=== PATIENT | female | born 1950 | race American Indian/Alaskan Native ===

== ENCOUNTER 2018-06-08 08:53 | Emergency (ER) | payer MEDICARE ==
--- NOTE | 2018-06-08 10:47 | Emergency Department Report ---
ED General Adult HPI - General Chief complaint: Extremity Problem,Nontraumatic Stated complaint: FOOT SWELLING/ABD PAIN Time Seen by Provider: 06/08/18 10:26 Source: patient, EMS Mode of arrival: Stretcher Limitations: No Limitations - History of Present Illness Initial comments: [facility] with a chief complaint of leg and feet swelling. Patient states that she had 4 doses of Lasix IM yesterday from [facility]. The patient is not therefore, with a history and when I initially enter the room she states that she wants to be. The patient is not very pleasant during the history and physical. But denies shortness of breath and chest pain. Patient says that she does not want us to do anything for her and wants to leav e -: Gradual Severity scale (0 -10): 0 Consistency: constant Improves with: none Worsens with: none Associated Symptoms: denies other symptoms Treatments Prior to Arrival: none - Related Data Home Medications Medication Instructions Recorded Confirmed Last Taken Apixaban [Eliquis] 5 mg PO DAILY 09/06/17 10/31/17 Unknown AtorvaSTATin [Lipitor] 20 mg PO DAILY 09/06/17 10/31/17 Unknown Loperamide HCl [Loperamide] 2 mg PO DAILY 09/06/17 10/31/17 Unknown Sertraline [Zoloft] 50 mg PO DAILY 09/06/17 10/31/17 10/17/17 10:00 Sucralfate [Carafate] 1 gm PO DAILY 09/06/17 10/31/17 Unknown Previous Rx's Medication Instructions Recorded Last Taken Type Carvedilol [Coreg] 12.5 mg PO BID #60 tablet 09/08/17 Unknown Rx Lisinopril [Zestril TAB] 5 mg PO QDAY #30 tablet 09/08/17 Unknown Rx Doxycycline [Vibramycin CAP] 100 mg PO Q12HR #10 capsule 11/02/17 Unknown Rx Furosemide [Lasix] 20 mg PO QDAY #30 tablet 11/02/17 Unknown Rx Allergies Allergy/AdvReac Type Severity Reaction Status Date / Time Penicillins Allergy Unknown Verified 09/04/17 14:11 aspirin AdvReac Nausea Verified 09/04/17 14:10 NSAIDS (Non-Steroidal AdvReac Nausea Verified 09/04/17 14:10 Anti-Inflamma Pork/Porcine Containing AdvReac Nausea Verified 11/01/17 09:04 Products ED Review of Systems ROS: Stated complaint: FOOT SWELLING/ABD PAIN Other details as noted in HPI Comment: All other systems reviewed and negative Constitutional: denies: chills, fever Eyes: denies: eye pain, eye discharge, vision change ENT: denies: ear pain, throat pain Respiratory: denies: cough, shortness of breath, wheezing Cardiovascular: denies: chest pain, palpitations Endocrine: no symptoms reported Gastrointestinal: denies: abdominal pain, nausea, diarrhea Genitourinary: denies: urgency, dysuria, discharge Musculoskeletal: denies: back pain, joint swelling, arthralgia Skin: denies: rash, lesions Neurological: denies: headache, weakness, paresthesias Psychiatric: denies: anxiety, depression Hematological/Lymphatic: denies: easy bleeding, easy bruising ED Past Medical Hx - Past Medical History Previous Medical History?: Yes Hx Hypertension: Yes Hx Congestive Heart Failure: Yes Hx Headaches / Migraines: Yes Additional medical history: A fib - Surgical History Past Surgical History?: Yes Additional Surgical History: Right breast lumpectomy - Social History Smoking Status: Former Smoker Substance Use Type: None - Medications Home Medications: Home Medications Medication Instructions Recorded Confirmed Last Taken Type Apixaban [Eliquis] 5 mg PO DAILY 09/06/17 10/31/17 Unknown History AtorvaSTATin [Lipitor] 20 mg PO DAILY 09/06/17 10/31/17 Unknown History Loperamide HCl [Loperamide] 2 mg PO DAILY 09/06/17 10/31/17 Unknown History Sertraline [Zoloft] 50 mg PO DAILY 09/06/17 10/31/17 10/17/17 10:00 History Sucralfate [Carafate] 1 gm PO DAILY 09/06/17 10/31/17 Unknown History Carvedilol [Coreg] 12.5 mg PO BID #60 tablet 09/08/17 10/31/17 Unknown Rx Lisinopril [Zestril TAB] 5 mg PO QDAY #30 tablet 09/08/17 10/31/17 Unknown Rx Doxycycline [Vibramycin CAP] 100 mg PO Q12HR #10 capsule 11/02/17 Unknown Rx Furosemide [Lasix] 20 mg PO QDAY #30 tablet 11/02/17 Unknown Rx ED Physical Exam - General Limitations: No Limitations General appearance: alert, in no apparent distress - Head Head exam: Present: atraumatic, normocephalic - Eye Eye exam: Present: normal appearance, PERRL, EOMI - ENT ENT exam: Present: mucous membranes moist - Neck Neck exam: Present: normal inspection - Respiratory Respiratory exam: Present: normal lung sounds bilaterally, rales. Absent: respiratory distress, wheezes - Cardiovascular Cardiovascular Exam: Present: regular rate, normal rhythm. Absent: systolic murmur, diastolic murmur, rubs, gallop - GI/Abdominal GI/Abdominal exam: Present: soft, normal bowel sounds. Absent: distended, tenderness - Extremities Exam Extremities exam: Present: normal inspection, other (bilateral 2+ pitting edema) - Back Exam Back exam: Present: normal inspection - Neurological Exam Neurological exam: Present: alert, oriented X3 - Psychiatric Psychiatric exam: Present: normal affect, normal mood - Skin Skin exam: Present: warm, dry, intact, normal color. Absent: rash ED Course Vital Signs 06/08/18 09:00 Temperature 97.4 F L Pulse Rate 129 H Respiratory 15 Rate Blood Pressure 110/71 O2 Sat by Pulse 100 Oximetry ED Medical Decision Making - Medical Decision Making Patient refused blow workup and chest x-ray stated she just wanted to go home. I discussed with patient CONCERNED that she might be in fluid overload from her congestive heart failure and needed IV Lasix patient stated she just had I am Lasix yesterday 4 and was to go home immediately. Patient stated she wanted to leave AGAINST MEDICAL ADVICE even after miss expressing my concerns was concerned grave illness and . Critical care attestation.: If time is entered above; I have spent that time in minutes in the direct care of this critically ill patient, excluding procedure time. ED Disposition Clinical Impression: Peripheral edema Disposition: DC-07 LEFT AGAINST MED ADVICE Is pt being admited?: No Does the pt Need Aspirin: No Condition: Stable Referrals: KEELY SRIVASTAVA MD [Primary Care Provider] - 3-5 Days
[2018-06-08 11:55] VITALS: BP 115/83
== END 2018-06-08 11:57 | disposition left against medical advice (07) ==
LOC: ED 08:53
DX: R60.9 Edema, unspecified (principal); I11.0 Hypertensive heart disease with heart failure; I50.9 Heart failure, unspecified; G43.909 Migraine, unspecified, not intractable, without status migrainosus; Z86.79 Personal history of other diseases of the circulatory system; Z87.891 Personal history of nicotine dependence; Z90.11 Acquired absence of right breast and nipple; Z88.0 Allergy status to penicillin; Z88.6 Allergy status to analgesic agent
CPT/HCPCS: 93005; 93010

== ENCOUNTER 2018-06-16 20:27 | Inpatient (IN) | payer MEDICARE ==
[2018-06-16] MEDS ORDERED: D50W (25GM) Syringe IV ONE ×2 (21:11→21:12)
--- NOTE | 2018-06-16 21:14 | Emergency Department Report ---
ED Altered Mental Status HPI - General Chief Complaint: Altered Mental Status Stated Complaint: MH Time Seen by Provider: 06/16/18 21:03 Source: EMS Mode of arrival: Stretcher Limitations: Altered Mental Status - History of Present Illness Initial Comments: 68-year-old female presents to the ED with altered mental status. Patient is cursing and screaming on the stretcher. Patient was picked up by EMS after her nephew called 911 and stated patient woke up and began tearing the house apart. She then went over to her neighbor's house and was climbing a fence. Nephew reports only known history is congestive heart failure. Patient is somewhat directable, reports a history of CHF. Patient keeps repeating "[id number]." Complaint: altered mental status -: This evening Severity: severe Consistency of Symptoms: constant Context: unknown - Related Data Home Medications Medication Instructions Recorded Confirmed Last Taken Apixaban [Eliquis] 5 mg PO DAILY 09/06/17 10/31/17 Unknown AtorvaSTATin [Lipitor] 20 mg PO DAILY 09/06/17 10/31/17 Unknown Loperamide HCl [Loperamide] 2 mg PO DAILY 09/06/17 10/31/17 Unknown Sertraline [Zoloft] 50 mg PO DAILY 09/06/17 10/31/17 10/17/17 10:00 Sucralfate [Carafate] 1 gm PO DAILY 09/06/17 10/31/17 Unknown Previous Rx's Medication Instructions Recorded Last Taken Type Carvedilol [Coreg] 12.5 mg PO BID #60 tablet 09/08/17 Unknown Rx Lisinopril [Zestril TAB] 5 mg PO QDAY #30 tablet 09/08/17 Unknown Rx Doxycycline [Vibramycin CAP] 100 mg PO Q12HR #10 capsule 11/02/17 Unknown Rx Furosemide [Lasix] 20 mg PO QDAY #30 tablet 11/02/17 Unknown Rx Allergies Allergy/AdvReac Type Severity Reaction Status Date / Time Penicillins Allergy Unknown Verified 09/04/17 14:11 aspirin AdvReac Nausea Verified 09/04/17 14:10 NSAIDS (Non-Steroidal AdvReac Nausea Verified 09/04/17 14:10 Anti-Inflamma Pork/Porcine Containing AdvReac Nausea Verified 11/01/17 09:04 Products ED Review of Systems ROS: Stated complaint: MH Other details as noted in HPI Comment: Unobtainable due to pts medical conditions (altered mental status) ED Past Medical Hx - Past Medical History Hx Hypertension: Yes Hx Congestive Heart Failure: Yes Hx Headaches / Migraines: Yes Additional medical history: A fib - Surgical History Additional Surgical History: Right breast lumpectomy - Social History Smoking Status: Former Smoker Substance Use Type: None - Medications Home Medications: Home Medications Medication Instructions Recorded Confirmed Last Taken Type Apixaban [Eliquis] 5 mg PO DAILY 09/06/17 10/31/17 Unknown History AtorvaSTATin [Lipitor] 20 mg PO DAILY 09/06/17 10/31/17 Unknown History Loperamide HCl [Loperamide] 2 mg PO DAILY 09/06/17 10/31/17 Unknown History Sertraline [Zoloft] 50 mg PO DAILY 09/06/17 10/31/17 10/17/17 10:00 History Sucralfate [Carafate] 1 gm PO DAILY 09/06/17 10/31/17 Unknown History Carvedilol [Coreg] 12.5 mg PO BID #60 tablet 09/08/17 10/31/17 Unknown Rx Lisinopril [Zestril TAB] 5 mg PO QDAY #30 tablet 09/08/17 10/31/17 Unknown Rx Doxycycline [Vibramycin CAP] 100 mg PO Q12HR #10 capsule 11/02/17 Unknown Rx Furosemide [Lasix] 20 mg PO QDAY #30 tablet 11/02/17 Unknown Rx ED Physical Exam - General Limitations: Altered Mental Status General appearance: alert, in no apparent distress - Head Head exam: Present: atraumatic, normocephalic - Eye Eye exam: Present: normal appearance - ENT ENT exam: Present: mucous membranes moist - Neck Neck exam: Present: normal inspection - Respiratory Respiratory exam: Present: normal lung sounds bilaterally. Absent: respiratory distress - Cardiovascular Cardiovascular Exam: Present: regular rate, normal rhythm - GI/Abdominal GI/Abdominal exam: Present: soft. Absent: distended - Extremities Exam Extremities exam: Present: pedal edema - Neurological Exam Neurological exam: Present: alert, altered, other (moving all extremities) - Psychiatric Psychiatric exam: Present: agitated (yelling, cursing) - Skin Skin exam: Present: warm, dry, intact, normal color. Absent: rash - Assessment Assessment Interval: Baseline - Level of Consciousness 1a. Level of Consciousness: alert/keenly responsive - LOC Questions 1b. LOC Questions: answers 1 question correctly - LOC Command 1c. LOC Commands: performs tasks correctly - Best Gaze 2. Best Gaze: normal - Visual 3. Visual: no visual loss - Facial Palsy 4. Facial Palsy: normal symmetrical movement - Motor Arm 5a. Motor Arm Left: no drift 5b. Motor Arm Right: no drift - Motor Leg 6a. Motor Leg Left: no drift 6b. Motor Leg Right: no drift - Limb Ataxia 7. Limb Ataxia: absent - Sensory 8. Sensory: normal - Best Language 9. Best Language: no aphasia - Dysarthria 10. Dysarthria: normal - Extinction and Inattention 11. Extinction/Inattention: no abnormality - Scoring Total Score: 1 Stroke Severity: Minor Stroke ED Course Vital Signs 06/16/18 06/16/18 06/16/18 20:44 21:02 21:30 Pulse Rate 60 135 H Respiratory 19 29 H Rate Blood Pressure 126/76 134/84 Blood Pressure 137/81 [Left] O2 Sat by Pulse 96 Oximetry 06/16/18 06/16/18 06/16/18 22:00 22:30 23:00 Pulse Rate 127 H 118 H 119 H Respiratory 25 H 26 H 22 Rate Blood Pressure 142/92 130/82 124/79 Blood Pressure [Left] O2 Sat by Pulse 96 Oximetry 06/16/18 06/16/18 06/17/18 23:30 23:44 01:45 Pulse Rate 118 H 157 H Respiratory 17 Rate Blood Pressure 89/61 89/61 Blood Pressure [Left] O2 Sat by Pulse 98 Oximetry 06/17/18 06/17/18 06/17/18 02:00 02:27 03:01 Pulse Rate 116 H 123 H Respiratory 22 Rate Blood Pressure 130/73 140/81 Blood Pressure 146/78 [Left] O2 Sat by Pulse 98 Oximetry - Reevaluation(s) Reevaluation #1: 06/16/18 21:11 Accucheck 26. Will administer D50. Reevaluation #2: 06/16/18 22:03 Nephew currently at bedside. States he received a call yesterday that patient was parked in her car in the [facility] parking lot. States patient was agitated and screaming at that time. States he took her to his home, fed her, and talked to her. Patient did calm down and was able to get some sleep. Patient awoke today, again agitated. States he and his have been attempting to calm her down all day, were unable to, so eventually called 911. - Consultations Consultation #1: 06/17/18 02:55 Spoke w/ radiologist that read pt's CT Head regarding foci of air. States he has seen this before with peripheral IV placement if small amount of air gets injected during placement. Pt does have a peripheral IV line. - Lab Data Result diagrams: 06/16/18 21:43 06/16/18 21:43 Lab Results 06/16/18 06/16/18 06/16/18 Range/Units 21:05 21:43 21:43 WBC (4.5-11.0) K/mm3 RBC (3.65-5.03) M/mm3 Hgb (10.1-14.3) gm/dl Hct (30.3-42.9) % MCV (79-97) fl MCH (28-32) pg MCHC (30-34) % RDW (13.2-15.2) % Plt Count (140-440) K/mm3 Lymph % (Auto) (13.4-35.0) % [place] % (Auto) (0.0-7.3) % Eos % (Auto) (0.0-4.3) % Baso % (Auto) (0.0-1.8) % Lymph # (1.2-5.4) K/mm3 [place] # (0.0-0.8) K/mm3 Eos # (0.0-0.4) K/mm3 Baso # (0.0-0.1) K/mm3 Seg Neutrophils % (40.0-70.0) % Seg Neutrophils # (1.8-7.7) K/mm3 Sodium (137-145) mmol/L Potassium (3.6-5.0) mmol/L Chloride (98-107) mmol/L Carbon Dioxide (22-30) mmol/L Anion Gap mmol/L BUN (7-17) mg/dL Creatinine (0.7-1.2) mg/dL Estimated GFR ml/min BUN/Creatinine Ratio % Glucose (65-100) mg/dL POC Glucose < 40 L (70-105) Lactic Acid (0.7-2.0) mmol/L Calcium (8.4-10.2) mg/dL Troponin T (0.00-0.029) ng/mL TSH (0.270-4.200) mlU/mL Free T4 (0.76-1.46) ng/dL Urine Color (Yellow) Urine Turbidity (Clear) Urine pH (5.0-7.0) Ur Specific [place] (1.003-1.030) Urine Protein (Negative) mg/dL Urine Glucose (UA) (Negative) mg/dL Urine Ketones (Negative) mg/dL Urine Blood (Negative) Urine Nitrite (Negative) Urine Bilirubin (Negative) Urine Urobilinogen (<2.0) mg/dL Ur Leukocyte Esterase (Negative) Urine WBC (Auto) (0.0-6.0) /HPF Urine RBC (Auto) (0.0-6.0) /HPF U Epithel Cells (Auto) (0-13.0) /HPF Hyaline Casts /LPF Urine Mucus /HPF Salicylates 5.5 (2.8-20.0) mg/dL Urine Opiates Screen Urine Methadone Screen Acetaminophen < 5.0 L (10.0-30.0) ug/mL Ur Barbiturates Screen Ur Phencyclidine Scrn Ur Amphetamines Screen U Benzodiazepines Scrn Urine Cocaine Screen U Marijuana (THC) Screen Drugs of Abuse Note Plasma/Serum Alcohol (0-0.07) % 06/16/18 06/16/18 06/16/18 Range/Units 21:43 21:43 21:43 WBC 8.7 (4.5-11.0) K/mm3 RBC 5.70 H (3.65-5.03) M/mm3 Hgb 14.2 (10.1-14.3) gm/dl Hct 44.6 H (30.3-42.9) % MCV 78 L (79-97) fl MCH 25 L (28-32) pg MCHC 32 (30-34) % RDW 18.7 H (13.2-15.2) % Plt Count 273 (140-440) K/mm3 Lymph % (Auto) 13.8 (13.4-35.0) % [place] % (Auto) 7.3 (0.0-7.3) % Eos % (Auto) 0.1 (0.0-4.3) % Baso % (Auto) 0.0 (0.0-1.8) % Lymph # 1.2 (1.2-5.4) K/mm3 [place] # 0.6 (0.0-0.8) K/mm3 Eos # 0.0 (0.0-0.4) K/mm3 Baso # 0.0 (0.0-0.1) K/mm3 Seg Neutrophils % 78.8 H (40.0-70.0) % Seg Neutrophils # 6.8 (1.8-7.7) K/mm3 Sodium 129 L (137-145) mmol/L Potassium 4.6 (3.6-5.0) mmol/L Chloride 95.3 L (98-107) mmol/L Carbon Dioxide 14 L (22-30) mmol/L Anion Gap 24 mmol/L BUN 23 H (7-17) mg/dL Creatinine 1.1 (0.7-1.2) mg/dL Estimated GFR 60 ml/min BUN/Creatinine Ratio 21 % Glucose 146 H (65-100) mg/dL POC Glucose (70-105) Lactic Acid (0.7-2.0) mmol/L Calcium 8.9 (8.4-10.2) mg/dL Troponin T (0.00-0.029) ng/mL TSH (0.270-4.200) mlU/mL Free T4 (0.76-1.46) ng/dL Urine Color (Yellow) Urine Turbidity (Clear) Urine pH (5.0-7.0) Ur Specific [place] (1.003-1.030) Urine Protein (Negative) mg/dL Urine Glucose (UA) (Negative) mg/dL Urine Ketones (Negative) mg/dL Urine Blood (Negative) Urine Nitrite (Negative) Urine Bilirubin (Negative) Urine Urobilinogen (<2.0) mg/dL Ur Leukocyte Esterase (Negative) Urine WBC (Auto) (0.0-6.0) /HPF Urine RBC (Auto) (0.0-6.0) /HPF U Epithel Cells (Auto) (0-13.0) /HPF Hyaline Casts /LPF Urine Mucus /HPF Salicylates (2.8-20.0) mg/dL Urine Opiates Screen Urine Methadone Screen Acetaminophen (10.0-30.0) ug/mL Ur Barbiturates Screen Ur Phencyclidine Scrn Ur Amphetamines Screen U Benzodiazepines Scrn Urine Cocaine Screen U Marijuana (THC) Screen Drugs of Abuse Note Plasma/Serum Alcohol < 0.01 (0-0.07) % 06/16/18 06/16/18 06/16/18 Range/Units 21:43 22:25 22:27 WBC (4.5-11.0) K/mm3 RBC (3.65-5.03) M/mm3 Hgb (10.1-14.3) gm/dl Hct (30.3-42.9) % MCV (79-97) fl MCH (28-32) pg MCHC (30-34) % RDW (13.2-15.2) % Plt Count (140-440) K/mm3 Lymph % (Auto) (13.4-35.0) % [place] % (Auto) (0.0-7.3) % Eos % (Auto) (0.0-4.3) % Baso % (Auto) (0.0-1.8) % Lymph # (1.2-5.4) K/mm3 [place] # (0.0-0.8) K/mm3 Eos # (0.0-0.4) K/mm3 Baso # (0.0-0.1) K/mm3 Seg Neutrophils % (40.0-70.0) % Seg Neutrophils # (1.8-7.7) K/mm3 Sodium (137-145) mmol/L Potassium (3.6-5.0) mmol/L Chloride (98-107) mmol/L Carbon Dioxide (22-30) mmol/L Anion Gap mmol/L BUN (7-17) mg/dL Creatinine (0.7-1.2) mg/dL Estimated GFR ml/min BUN/Creatinine Ratio % Glucose (65-100) mg/dL POC Glucose 121 H (70-105) Lactic Acid (0.7-2.0) mmol/L Calcium (8.4-10.2) mg/dL Troponin T < 0.010 (0.00-0.029) ng/mL TSH 1.560 (0.270-4.200) mlU/mL Free T4 1.87 H (0.76-1.46) ng/dL Urine Color (Yellow) Urine Turbidity (Clear) Urine pH (5.0-7.0) Ur Specific [place] (1.003-1.030) Urine Protein (Negative) mg/dL Urine Glucose (UA) (Negative) mg/dL Urine Ketones (Negative) mg/dL Urine Blood (Negative) Urine Nitrite (Negative) Urine Bilirubin (Negative) Urine Urobilinogen (<2.0) mg/dL Ur Leukocyte Esterase (Negative) Urine WBC (Auto) (0.0-6.0) /HPF Urine RBC (Auto) (0.0-6.0) /HPF U Epithel Cells (Auto) (0-13.0) /HPF Hyaline Casts /LPF Urine Mucus /HPF Salicylates (2.8-20.0) mg/dL Urine Opiates Screen Urine Methadone Screen Acetaminophen (10.0-30.0) ug/mL Ur Barbiturates Screen Ur Phencyclidine Scrn Ur Amphetamines Screen U Benzodiazepines Scrn Urine Cocaine Screen U Marijuana (THC) Screen Drugs of Abuse Note Plasma/Serum Alcohol (0-0.07) % 06/16/18 06/16/18 06/16/18 Range/Units 22:33 23:43 Unknown WBC (4.5-11.0) K/mm3 RBC (3.65-5.03) M/mm3 Hgb (10.1-14.3) gm/dl Hct (30.3-42.9) % MCV (79-97) fl MCH (28-32) pg MCHC (30-34) % RDW (13.2-15.2) % Plt Count (140-440) K/mm3 Lymph % (Auto) (13.4-35.0) % [place] % (Auto) (0.0-7.3) % Eos % (Auto) (0.0-4.3) % Baso % (Auto) (0.0-1.8) % Lymph # (1.2-5.4) K/mm3 [place] # (0.0-0.8) K/mm3 Eos # (0.0-0.4) K/mm3 Baso # (0.0-0.1) K/mm3 Seg Neutrophils % (40.0-70.0) % Seg Neutrophils # (1.8-7.7) K/mm3 Sodium (137-145) mmol/L Potassium (3.6-5.0) mmol/L Chloride (98-107) mmol/L Carbon Dioxide (22-30) mmol/L Anion Gap mmol/L BUN (7-17) mg/dL Creatinine (0.7-1.2) mg/dL Estimated GFR ml/min BUN/Creatinine Ratio % Glucose (65-100) mg/dL POC Glucose (70-105) Lactic Acid 4.40 H* 4.30 H* (0.7-2.0) mmol/L Calcium (8.4-10.2) mg/dL Troponin T (0.00-0.029) ng/mL TSH (0.270-4.200) mlU/mL Free T4 (0.76-1.46) ng/dL Urine Color [place] (Yellow) Urine Turbidity Clear (Clear) Urine pH 5.0 (5.0-7.0) Ur Specific [place] 1.025 (1.003-1.030) Urine Protein 100 mg/dl (Negative) mg/dL Urine Glucose (UA) 50 (Negative) mg/dL Urine Ketones Neg (Negative) mg/dL Urine Blood Neg (Negative) Urine Nitrite Neg (Negative) Urine Bilirubin Neg (Negative) Urine Urobilinogen 4.0 (<2.0) mg/dL Ur Leukocyte Esterase Neg (Negative) Urine WBC (Auto) 4.0 (0.0-6.0) /HPF Urine RBC (Auto) 5.0 (0.0-6.0) /HPF U Epithel Cells (Auto) 7.0 (0-13.0) /HPF Hyaline Casts 49 /LPF Urine Mucus Few /HPF Salicylates (2.8-20.0) mg/dL Urine Opiates Screen Urine Methadone Screen Acetaminophen (10.0-30.0) ug/mL Ur Barbiturates Screen Ur Phencyclidine Scrn Ur Amphetamines Screen U Benzodiazepines Scrn Urine Cocaine Screen U Marijuana (THC) Screen Drugs of Abuse Note Plasma/Serum Alcohol (0-0.07) % 06/16/18 Range/Units Unknown WBC (4.5-11.0) K/mm3 RBC (3.65-5.03) M/mm3 Hgb (10.1-14.3) gm/dl Hct (30.3-42.9) % MCV (79-97) fl MCH (28-32) pg MCHC (30-34) % RDW (13.2-15.2) % Plt Count (140-440) K/mm3 Lymph % (Auto) (13.4-35.0) % [place] % (Auto) (0.0-7.3) % Eos % (Auto) (0.0-4.3) % Baso % (Auto) (0.0-1.8) % Lymph # (1.2-5.4) K/mm3 [place] # (0.0-0.8) K/mm3 Eos # (0.0-0.4) K/mm3 Baso # (0.0-0.1) K/mm3 Seg Neutrophils % (40.0-70.0) % Seg Neutrophils # (1.8-7.7) K/mm3 Sodium (137-145) mmol/L Potassium (3.6-5.0) mmol/L Chloride (98-107) mmol/L Carbon Dioxide (22-30) mmol/L Anion Gap mmol/L BUN (7-17) mg/dL Creatinine (0.7-1.2) mg/dL Estimated GFR ml/min BUN/Creatinine Ratio % Glucose (65-100) mg/dL POC Glucose (70-105) Lactic Acid (0.7-2.0) mmol/L Calcium (8.4-10.2) mg/dL Troponin T (0.00-0.029) ng/mL TSH (0.270-4.200) mlU/mL Free T4 (0.76-1.46) ng/dL Urine Color (Yellow) Urine Turbidity (Clear) Urine pH (5.0-7.0) Ur Specific [place] (1.003-1.030) Urine Protein (Negative) mg/dL Urine Glucose (UA) (Negative) mg/dL Urine Ketones (Negative) mg/dL Urine Blood (Negative) Urine Nitrite (Negative) Urine Bilirubin (Negative) Urine Urobilinogen (<2.0) mg/dL Ur Leukocyte Esterase (Negative) Urine WBC (Auto) (0.0-6.0) /HPF Urine RBC (Auto) (0.0-6.0) /HPF U Epithel Cells (Auto) (0-13.0) /HPF Hyaline Casts /LPF Urine Mucus /HPF Salicylates (2.8-20.0) mg/dL Urine Opiates Screen Presumptive negative Urine Methadone Screen Presumptive negative Acetaminophen (10.0-30.0) ug/mL Ur Barbiturates Screen Presumptive negative Ur Phencyclidine Scrn Presumptive negative Ur Amphetamines Screen Presumptive negative U Benzodiazepines Scrn Presumptive negative Urine Cocaine Screen Presumptive negative U Marijuana (THC) Screen Presumptive negative Drugs of Abuse Note Disclamer Plasma/Serum Alcohol (0-0.07) % - EKG Data -: EKG Interpreted by Me EKG shows normal: sinus rhythm, axis, intervals, QRS complexes, ST-T waves Rate: tachycardia (rate 118) Interpretation: no acute changes - Radiology Data Radiology results: report reviewed, image reviewed - Medical Decision Making This is a 68-year-old female with altered mental status 2 days according to her nephew. Only known medical history by him as CHF. Chart review reveals history of atrial fibrillation, hypertension as well. No known psychiatric h istory. Patient has been agitated, yelling and cursing at family and staff. Upon initial presentation, Accu-Chek was done and patient was found to be hypoglycemic, with glucose of 26. D50 was given and patient subsequently had a normal glucose when it was rechecked. However, patient's behavior did not change following D50 administration. Patient continued to be agitated, cursing. Patient does have a lucid moment we are able to calm her down, she will answer questions appropriately. However she did require multiple doses of sedating medications to obtain workup. Patient was initially given Haldol, then Geodon, then Ativan and Benadryl. Patient is finally resting. CT head unremarkable except for findings of foci of air, which according to radiologist, could be due to small amount of air entering the bloodstream on peripheral IV placement. Chest x-ray did show possible pneumonia, so blood cultures were obtained and Levaquin was given. The patient has never been in any respiratory distress, O2 sats have been normal. Patient has been afebrile, blood pressure normal. Patient was initially tachycardic, EKG did show sinus tachycardia with patient has history of atrial fibrillation, and has had paroxysmal episodes of A. fib with RVR with heart rate increasing to the 130s while asleep. Patient was given metoprolol 5 mg for this. Her rate improved to the 110s. EKG did not show any ST changes, and troponin was normal. Thyroid panel essentially normal. UA is negative for infection. Toxicology screen negative. EtOH negative. Patient did have lactic acidosis of 4, could possibly be related to her pneumonia, could also possibly be elevated since her agitation. Patient given gentle bolus of IV fluids, 1 L, due to history of CHF. Patient did not require any more boluses as her blood pressure has been normal renal function is normal as well. Will admit the patient to hospitalist, Dr Estrada, for further management of her care. - Differential Diagnosis infection, psychosis, thyroid storm, hypoglycemia Critical Care Time: Yes Critical care time in (mins) excluding proc time.: 70 Critical care attestation.: If time is entered above; I have spent that time in minutes in the direct care of this critically ill patient, excluding procedure time. Critical Care Time: 70 minutes ED Disposition Clinical Impression: Psychosis, Altered mental status, Pneumonia, Paroxysmal atrial fibrillation, L actic acidosis, Hypoglycemia Disposition: -09 OP ADMIT IP TO THIS HOSP Is pt being admited?: Yes Condition: Stable Time of Disposition: 02:58
[2018-06-16] MEDS ORDERED: HALDOL IM ONE (22:02)
[2018-06-16 22:04] LABS: Eosinophils % (Auto) 0.1 % (0.0-4.3); Hematocrit 44.6 % (30.3-42.9); Hemoglobin 14.2 gm/dl (10.1-14.3); Lymphocytes # (Auto) 1.2 K/mm3 (1.2-5.4); Lymphocytes % (Auto) 13.8 % (13.4-35.0); Mean Corpuscular HGB Conc 32 % (30-34); Mean Corpuscular Volume 78 fl (79-97); Monocytes # (Auto) 0.6 K/mm3 (0.0-0.8); Monocytes % (Auto) 7.3 % (0.0-7.3); Red Cell Distribution Width 18.7 % (13.2-15.2)
[2018-06-16 22:10] LABS: Platelet Count 273 K/mm3 (140-440)
[2018-06-16 22:18] LABS: Calcium 8.9 mg/dL (8.4-10.2)
--- NOTE | 2018-06-16 22:54 | XRay Report ---
PROCEDURE: CHEST 1 VIEW TECHNIQUE: Chest radiograph posteroanterior projection. CPT 76123 HISTORY: Altered mental status COMPARISONS: None . FINDINGS: There is mild to moderate degree cardiomegaly. An inhomogeneous densities noted in the left midlung. Right lung and bilateral pleural spaces are clear. IMPRESSION: An inhomogeneous density left midlung suspicious for pneumonia. A two-view chest study is recommended. This document is electronically signed by Flavio Feng MD., June 16 2018 10:51:47 PM ET
[2018-06-16] MEDS ORDERED: LEVAQUIN 750MG/150ML 750 MG/150 ML BAG IV ONE (23:15)
[2018-06-16 23:21] LABS: Free T4 (Free Thyroxine) 1.87 ng/dL (0.76-1.46)
[2018-06-16] MEDS ORDERED: NACL 0.9% 1000 ML 1,000 ML IV ONE (23:37)
[2018-06-17] MEDS ORDERED: GEODON IM ONE ×2 (00:02→00:13)
[2018-06-17] MEDS ORDERED: BENADRYL IV ONE (01:05)
[2018-06-17] MEDS ORDERED: ATIVAN IV ONE (01:05)
[2018-06-17 01:07] LABS: Amphetamine Screen,Urine PRESUMPTIVE NEGATIVE; Benzodiazepines Screen,Urine PRESUMPTIVE NEGATIVE; Cannabinoid Screen,Urine PRESUMPTIVE NEGATIVE; Cocaine Screen,Urine PRESUMPTIVE NEGATIVE; Methadone Screen,Urine PRESUMPTIVE NEGATIVE; Opiate Screen,Urine PRESUMPTIVE NEGATIVE
[2018-06-17 01:13] LABS: Bilirubin,Urine NEG (Negative); Blood,Urine NEG (Negative); Color,Urine Amber (Yellow); Hyaline Casts,Urine 49 /LPF; Mucus,Urine FEW /HPF
--- NOTE | 2018-06-17 02:20 | Cat Scan Report ---
PROCEDURE: CT HEAD/BRAIN WO CON TECHNIQUE: Routine axial imaging was obtained of the brain without IV contrast. HISTORY: ams COMPARISONS: There are no previous studies available for comparison. FINDINGS: There is mild atrophy. There is no evidence of acute stroke or hemorrhage. The ventricular system is appropriate in size and is symmetric. The visualized sinuses are clear. The mastoid air cells are wel l pneumatized. The calvarium appears intact. The soft tissues reveal small foci of air within the anterior aspects of both cheeks bilaterally. Add itional small foci of air are seen within the soft tissues behind the right maxillary sinus and in th e right cavernous sinus. There is no evidence of air along the skull base. IMPRESSION: Mild atrophy. No evidence of acute stroke or hemorrhage. Small foci of air in the ventral cheek soft tissues, behind the right maxillary sinus and within the right cavernous sinus. Clinical history is needed whether there is been a recent intravenous catheter placement and/or injection of some type. No evidence of air along the skull base to suggest it could be coming from the thorax.. This document is electronically signed by J Luis Weeks MD., June 17 2018 02:19:19 AM ET
[2018-06-17] MEDS ORDERED: LOPRESSOR IV ONE ×2 (02:59→03:00)
[2018-06-17] MEDS ORDERED: ZOFRAN IV PRN (03:24)
--- NOTE | 2018-06-17 05:07 | History and Physical Report ---
CHIEF COMPLAINT: Altered mental status. HISTORY OF PRESENT ILLNESS: The patient is a 68-year-old female, who was brought in because of altered mental status. The patient was noted by the family to develop sudden onset of change in mental status with the patient being combative, climbing the fence, and running wild at home. There was no history of chest pain. No history of shortness of breath, fever, nausea or vomiting and the patient was noted to be voicing 12/14 Spongebob along the line and EMS was called and the patient was brought in. PAST MEDICAL HISTORY: Pertinent for hypertension, congestive heart failure, migraine headaches, atrial fibrillation. PAST SURGICAL HISTORY: Pertinent for right breast lumpectomy. FAMILY HISTORY: Noncontributory. SOCIAL HISTORY: The patient is a former cigarette smoker, but does not smoke currently, does not drink alcohol and does not use illicit drugs. MEDICATIONS: The patient is on apixaban 5 mg by mouth daily, Lipitor 20 mg by mouth daily, loperamide 2 mg by mouth daily, Zoloft 50 mg by mouth daily, sucralfate 1 gram by mouth daily, Coreg 12.5 mg by mouth twice daily, lisinopril 5 mg by mouth daily, doxycycline, Vibramycin 100 mg by mouth every 12 hours and Lasix 20 mg by mouth daily. ALLERGIES: THE PATIENT IS ALLERGIC TO PENICILLIN, ASPIRIN, NON-STEROIDAL ANTI-INFLAMMATORY AGENTS. REVIEW OF SYSTEMS: CONSTITUTIONAL: There is no fever, no chills, no diaphoresis. HEENT: There is no headache or sore throat. CARDIOVASCULAR SYSTEM: There is no chest pain or orthopnea. RESPIRATORY SYSTEM: There is no shortness of breath or cough. GASTROINTESTINAL SYSTEM: There is no nausea, no vomiting, no abdominal pain, diarrhea or constipation. NEUROLOGICAL SYSTEM: Altered mental status noted. No dizziness, no numbness. MUSCULOSKELETAL SYSTEM: There is no joint pain or swelling. DERMATOLOGICAL SYSTEM: There is no skin rash or itching. GENITOURINARY SYSTEM: There is no dysuria, hematuria or flank pain. Rest of system review is normal. PHYSICAL EXAMINATION: GENERAL: At the time of exam, the patient was found to be alert, oriented x 3 and not in acute distress. VITAL SIGNS: At the initial time of presentation showed normal temperature with pulse of 60, respirations 19, blood pressure 137/81, O2 sat of 96% on room air. HEENT: Show pupils to be equal, round, reactive to light and accommodating. Extraocular muscles are intact. NECK: Supple with no JVD or carotid bruit. CARDIOVASCULAR: Showed first and second heart sounds with irregularly irregular rhythm. No murmurs. GASTROINTESTINAL SYSTEM: Show abdomen to be full, soft, nontender with no organomegaly or rigidity. NEUROLOGIC: Shows no focal deficit. MUSCULOSKELETAL SYSTEM: Show no joint swelling or tenderness. DERMATOLOGICAL SYSTEM: Show no skin rash. GENITOURINARY SYSTEM: Show no costovertebral angle tenderness. PERTINENT LAB AND IMAGING STUDIES: The patient has CT of the head with no contrast done that shows mild atrophy and small foci of air in the ventral cheek soft tissue behind the right maxillary sinus and within the right cavernous sinus and the radiologist said that clinical history is needed to determine whether there has been a recent intravenous catheter placement and/or injection of some type, but there is no evidence of air along the skull base to suggest it could be coming from the dura. The patient had chest x-ray done that shows an inhomogeneous density in the left mid lung suspicious for pneumonia. Lab results, the patient has CBC done with normal white count, normal hemoglobin and elevated hematocrit level of 44.6 and rest of CBC showed elevated segmented neutrophil of 78.8% in the CBC differential. The patient's chemistry shows slightly low sodium level of 129 and initial blood glucose was noted to be low with a value of 26 and the patient's lactic acid level was high with a value of 4.3 and TSH level came back normal with elevated free T4 level of 1.87. The patient's urinalysis came back unremarkable. Toxicology screen was unremarkable. DIAGNOSES: 1. Altered mental status. 2. Hypoglycemia. 3. Left lung pneumonia. 4. Hyponatremia. PLAN OF CARE: 1. The patient will be admitted to telemetry. 2. The patient will be on Accu-Chek every 4 hours with hypoglycemic protocol. 3. The patient will be on sequential compressive device for DVT prophylaxis and will be on Tylenol 650 mg by mouth every 4 hours for fever and headache. The patient will be on IV Levaquin 750 mg daily for treatment of pneumonia. Also, the patient will be on IV Zofran 4 mg every 8 hours for nausea and vomiting. JOB# [id number] OCN/NTS MTDD
[2018-06-17] MEDS ORDERED: NACL 0.9% 500 ML 500 ML IV ONE (05:38)
[2018-06-17] MEDS ORDERED: NACL 0.9% 500 ML 500 ML ONE (05:52)
[2018-06-17] MEDS ORDERED: D50W (25GM) Syringe IV ONE (08:55)
[2018-06-17 11:47] LABS: Hematocrit 41.8 % (30.3-42.9); Hemoglobin 13.1 gm/dl (10.1-14.3); Mean Corpuscular HGB Conc 31 % (30-34); Mean Corpuscular Volume 80 fl (79-97); Platelet Count 202 K/mm3 (140-440); Red Blood Count 5.25 M/mm3 (3.65-5.03); Red Cell Distribution Width 18.6 % (13.2-15.2)
--- NOTE | 2018-06-17 12:24 | Event Note ---
Date: 06/17/18 Patient is 68 yo presented with altered mental status, agitation. She also has history of CHF, afib. I have seen and examined her. Consult Cardiology. Will also obtain MRI Brain. Consult Neuro.
[2018-06-17 12:35] LABS: BUN/Creatinine Ratio 22; Blood Urea Nitrogen 22 mg/dL (7-17); Calcium 8.3 mg/dL (8.4-10.2); Hemolysis Index 106
--- NOTE | 2018-06-17 12:44 | Consultation ---
History of Present Illness Consult date: 06/17/18 Consult reason: atrial fibrillation, congestive heart failure History of present illness: Patient is a 68 year old woman who is admitted with altered mental status. There were no report of chest pain, no palpitations and no lower extremity edema. Chest x-ray suspicious for pneumonia. Head CT scan reports small foci air in the ventral cheek soft tissue. No evidence of acute stroke or hemorrhage. A cardiac consultation was requested for atrial fibrillation. Patient has a history of severe nonischemic cardiomyopathy, ejection fraction 20-25 by her latest echocardiogram at [facility], April 2018. She has a history of permanent atrial fibrillation/flutter previously placed on eliquis for oral anticoagulation. Patient has not followed up as an outpatient for cardiac care. EKG is rapid atrial flutter, rate 118. Medications and Allergies Allergies Allergy/AdvReac Type Severity Reaction Status Date / Time Penicillins Allergy Unknown Verified 09/04/17 14:11 aspirin AdvReac Nausea Verified 09/04/17 14:10 NSAIDS (Non-Steroidal AdvReac Nausea Verified 09/04/17 14:10 Anti-Inflamma Pork/Porcine Containing AdvReac Nausea Verified 11/01/17 09:04 Products Home Medications Medication Instructions Recorded Confirmed Last Taken Type Apixaban [Eliquis] 5 mg PO DAILY 09/06/17 10/31/17 Unknown History AtorvaSTATin [Lipitor] 20 mg PO DAILY 09/06/17 10/31/17 Unknown History Loperamide HCl [Loperamide] 2 mg PO DAILY 09/06/17 10/31/17 Unknown History Sertraline [Zoloft] 50 mg PO DAILY 09/06/17 10/31/17 10/17/17 10:00 History Sucralfate [Carafate] 1 gm PO DAILY 09/06/17 10/31/17 Unknown History Carvedilol [Coreg] 12.5 mg PO BID #60 tablet 09/08/17 10/31/17 Unknown Rx Lisinopril [Zestril TAB] 5 mg PO QDAY #30 tablet 09/08/17 10/31/17 Unknown Rx Doxycycline [Vibramycin CAP] 100 mg PO Q12HR #10 capsule 11/02/17 Unknown Rx Furosemide [Lasix] 20 mg PO QDAY #30 tablet 11/02/17 Unknown Rx Active Meds: Active Medications Acetaminophen (Tylenol) 650 mg PO Q4H PRN PRN Reason: Fever >101 Levofloxacin/Dextrose (Levaquin 750mg/150ml) 750 mg in 150 mls @ 100 mls/hr IV Q24HR@2200 JEANETTE; Protocol Ondansetron HCl (Zofran) 4 mg IV Q8H PRN PRN Reason: Nausea And Vomiting Physical Examination Vital Signs Pulse Resp BP Pulse Ox 60 19 137/81 96 06/16/18 20:44 06/16/18 20:44 06/16/18 20:44 06/16/18 20:44 General appearance: no acute distress Cardiac: Positive: irregularly irregular Results 06/17/18 11:00 06/17/18 11:00 CBC 06/16/18 06/17/18 Range/Units 21:43 11:00 WBC 8.7 11.9 H (4.5-11.0) K/mm3 RBC 5.70 H 5.25 H (3.65-5.03) M/mm3 Hgb 14.2 13.1 (10.1-14.3) gm/dl Hct 44.6 H 41.8 (30.3-42.9) % Plt Count 273 202 (140-440) K/mm3 Lymph # 1.2 (1.2-5.4) K/mm3 Dawes # 0.6 (0.0-0.8) K/mm3 Eos # 0.0 (0.0-0.4) K/mm3 Baso # 0.0 (0.0-0.1) K/mm3 Comprehensive Metabolic Panel 06/16/18 06/17/18 Range/Units 21:43 11:00 Sodium 129 L 128 L (137-145) mmol/L Potassium 4.6 (3.6-5.0) mmol/L Chloride 95.3 L 95.6 L (98-107) mmol/L Carbon Dioxide 14 L 15 L (22-30) mmol/L BUN 23 H 22 H (7-17) mg/dL Creatinine 1.1 1.0 (0.7-1.2) mg/dL Glucose 146 H 110 H (65-100) mg/dL Calcium 8.9 8.3 L (8.4-10.2) mg/dL
--- NOTE | 2018-06-17 12:46 | Event Note ---
Date: 06/17/18 Stage D non-ischemic cardiomyopathy Patient is cold and dry on exam (end-stage cardiomyopathy) Patient deemed not a candidate for advanced heart failure management and recommended for palliative care. Patient discharged to home hospice care from [facility] on Apr 27, 2018 Echo 04/2018 at [facility] showed: LV normal size. Normal LV wall thickness. Severe global LV hypokinesis. Systolic and diastolic septal flattening c/w RV volume and pressure overload. LVEF is 21%. EF 20 - 25%. LVEF severely decreased. Grade III (severe) diastolic dysfunction c/w restrictive physiology. RV moderately dilated. RV wall motion normal. RV systolic function is normal. Abnormal RV diastolic function. LA severely dilated. RA severely dilated. Tricuspid AV. AV mildly thickened. AV opens well. Trace AR. No AV stenosis. MV mildly thickened. Moderate mitral regurgitation. Tricuspid leaflets do not completely coapt. Severe TR. Estimated RAP 15 mmHg. RAP elevated. RVSP is severely elevated. RVSP is underestimated, believed to be severe Chronic systolic heart failure Permanent atrial fibrillation/flutter Severe depression Altered mental status Recently discharged from [facility] to home hospice care Non-compliance with medical therapy Lactic acidosis Hyponatremia - chronic Elevated bilirubin and alk phosphatase - chronic secondary to congestive hepatopathy Recommendations: Start low dose IV dobutamine Start low dose IV metoprolol for rate control Hold anticoagulation for the time being pending any needed intervention for the right maxillary sinus pathology noted on CT IV antibiotic therapy per primary team Patient to return to home hospice care upon discharge Prognosis is very poor
[2018-06-17 14:46] LABS: Alanine Aminotransferase 33 units/L (7-56); Albumin 2.4 g/dL (3.9-5); Bilirubin,Direct 1.6 mg/dL (0-0.2)
--- NOTE | 2018-06-17 15:23 | Consultation ---
History of Present Illness Consult date: 06/17/18 Requesting physician: SEBAS ARNOLD Reason for Consult: AMS, psychotic behavior. History of present illness: 68 yr old female with history of cardiomyopathy (EF 20 to 25%), atrial fib/flutter, and severe depression (per cardiology note). The pt. came in with manic behavior. Apparently she was discharged with suggestion of hospice care in 2018, from [facility]. Glucose was low as was sodium on admission. Correction has not helped her behavior. She will not answer questions - but yells at examiner and personnel. Past History Past Medical History: atrial fib, arrhythmia, CAD Medications and Allergies Allergies Allergy/AdvReac Type Severity Reaction Status Date / Time Penicillins Allergy Unknown Verified 09/04/17 14:11 aspirin AdvReac Nausea Verified 09/04/17 14:10 NSAIDS (Non-Steroidal AdvReac Nausea Verified 09/04/17 14:10 Anti-Inflamma Pork/Porcine Containing AdvReac Nausea Verified 11/01/17 09:04 Products Home Medications Medication Instructions Recorded Confirmed Last Taken Type Apixaban [Eliquis] 5 mg PO DAILY 09/06/17 10/31/17 Unknown History AtorvaSTATin [Lipitor] 20 mg PO DAILY 09/06/17 10/31/17 Unknown History Loperamide HCl [Loperamide] 2 mg PO DAILY 09/06/17 10/31/17 Unknown History Sertraline [Zoloft] 50 mg PO DAILY 09/06/17 10/31/17 10/17/17 10:00 History Sucralfate [Carafate] 1 gm PO DAILY 09/06/17 10/31/17 Unknown History Carvedilol [Coreg] 12.5 mg PO BID #60 tablet 09/08/17 10/31/17 Unknown Rx Lisinopril [Zestril TAB] 5 mg PO QDAY #30 tablet 09/08/17 10/31/17 Unknown Rx Doxycycline [Vibramycin CAP] 100 mg PO Q12HR #10 capsule 11/02/17 Unknown Rx Furosemide [Lasix] 20 mg PO QDAY #30 tablet 11/02/17 Unknown Rx Active Meds: Active Medications Acetaminophen (Tylenol) 650 mg PO Q4H PRN PRN Reason: Fever >101 Levofloxacin/Dextrose (Levaquin 750mg/150ml) 750 mg in 150 mls @ 100 mls/hr IV Q24HR@2200 JEANETTE; Protocol Dobutamine HCl/Dextrose (Dobutrex Drip 500mg/D5w 250ml) 500 mg in 250 mls @ 4.491 mls/hr IV TITR JEANETTE; Protocol Metoprolol Tartrate (Lopressor) 2.5 mg IV Q6HR JEANETTE Ondansetron HCl (Zofran) 4 mg IV Q8H PRN PRN Reason: Nausea And Vomiting Review of Systems ROS unobtainable: due to mental status Physical Examination - Vital Signs Vital Signs: Vital Signs Pulse Resp BP Pulse Ox 60 19 137/81 96 06/16/18 20:44 06/16/18 20:44 06/16/18 20:44 06/16/18 20:44 - Physical Exam Narrative exam: General - Sitting in bed, eating lunch. Yelling, asking for a phone to call her son. Neurologic Exam - Not cooperative for formal testing. 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 Motor -moves all limbs equally well. Results - Laboratory Findings CBC and BMP: 06/17/18 11:00 06/17/18 11:00 Abnormal Lab Findings: Abnormal Labs 06/16/18 06/16/18 06/16/18 21:05 21:43 21:43 WBC RBC Hct MCV MCH RDW Seg Neutrophils % Sodium 129 L Chloride 95.3 L Carbon Dioxide 14 L BUN 23 H Glucose 146 H POC Glucose < 40 L Lactic Acid Calcium Direct Bilirubin AST Alkaline Phosphatase Total Protein Albumin Free T4 Acetaminophen < 5.0 L 06/16/18 06/16/18 06/16/18 21:43 21:43 22:27 WBC RBC 5.70 H Hct 44.6 H MCV 78 L MCH 25 L RDW 18.7 H Seg Neutrophils % 78.8 H Sodium Chloride Carbon Dioxide BUN Glucose POC Glucose 121 H Lactic Acid Calcium Direct Bilirubin AST Alkaline Phosphatase Total Protein Albumin Free T4 1.87 H Acetaminophen 06/16/18 06/16/18 06/17/18 22:33 23:43 03:56 WBC RBC Hct MCV MCH RDW Seg Neutrophils % Sodium Chloride Carbon Dioxide BUN Glucose POC Glucose Lactic Acid 4.40 H* 4.30 H* 3.10 H* Calcium Direct Bilirubin AST Alkaline Phosphatase Total Protein Albumin Free T4 Acetaminophen 06/17/18 06/17/18 06/17/18 08:35 08:40 11:00 WBC RBC Hct MCV MCH RDW Seg Neutrophils % Sodium Chloride Carbon Dioxide BUN Glucose POC Glucose 56 L Lactic Acid 2.70 H* 3.40 H* Calcium Direct Bilirubin AST Alkaline Phosphatase Total Protein Albumin Free T4 Acetaminophen 06/17/18 06/17/18 06/17/18 11:00 11:00 11:00 WBC 11.9 H RBC 5.25 H Hct MCV MCH 25 L RDW 18.6 H Seg Neutrophils % Sodium 128 L Chloride 95.6 L Carbon Dioxide 15 L BUN 22 H Glucose 110 H POC Glucose Lactic Acid Calcium 8.3 L Direct Bilirubin 1.6 H AST 66 H Alkaline Phosphatase 178 H Total Protein 4.7 L Albumin 2.4 L Free T4 Acetaminophen Assessment and Plan 68 yr old female presents with psychotic behavior, uncooperative. Hx of endstage cardiomyopathy and major depression. Plan - MRI pending repeat thyroid panel. consult psychiatry.
[2018-06-17] MEDS: TYLENOL PO PRN (16:14)
[2018-06-17] MEDS: DOBUTREX DRIP 500MG/D5W 250ML 500 MG/250 ML BAG IV SCH (16:14)
[2018-06-17] MEDS: LOPRESSOR IV SCH ×2 (18:56→23:37)
--- NOTE | 2018-06-17 21:16 | Magnetic Resonance Report ---
PROCEDURE: MR BRAIN WO CON TECHNIQUE: Magnetic resonance imaging of the brain was performed without contrast material. HISTORY: Altered mental status COMPARISONS: None . FINDINGS: This study is limited due to motion artifacts Skull base and calvarium: Normal . Paranasal sinuses: The visualized paranasal sinuses are clear. Cerebellum: No evidence of hemorrhage, ischemia or mass . Brainstem: No evidence of hemorrhage, ischemia or mass . Cerebrum: A small area of encephalomalacia is noted involving the right occipitotemporal region witho ut any mass effect most likely secondary to an old infarct or hemorrhage. An intra-axial or extra-axi al hemorrhage or mass effect is not identified.. Ventricles: Normal in size and morphology for the patient's age . Pituitary gland and sella: Normal . Globes and orbits: Normal . Vasculature: Normal arterial and venous flow voids. Other: None . IMPRESSION: Limited study due to motion artifacts No acute intracranial abnormality. This document is electronically signed by Flavio Feng MD., June 17 2018 09:14:53 PM ET
[2018-06-17] MEDS: LEVAQUIN 750MG/150ML 750 MG/150 ML BAG IV SCH (21:28)
[2018-06-17 23:38] LABS: Free T4 (Free Thyroxine) 1.53 ng/dL (0.76-1.46)
[2018-06-18] MEDS: LOPRESSOR IV SCH ×3 (05:00→19:12)
[2018-06-18 10:04] LABS: Hemoglobin 13.2 gm/dl (10.1-14.3); Mean Corpuscular HGB Conc 32 % (30-34); Mean Corpuscular Volume 78 fl (79-97); Platelet Count 255 K/mm3 (140-440); Red Blood Count 5.29 M/mm3 (3.65-5.03); Red Cell Distribution Width 18.4 % (13.2-15.2)
[2018-06-18 10:19] LABS: BUN/Creatinine Ratio 22; Blood Urea Nitrogen 22 mg/dL (7-17); Calcium 8.7 mg/dL (8.4-10.2); Hemolysis Index 94
--- NOTE | 2018-06-18 11:33 | Progress Note ---
Assessment and Plan - Patient Problems (1) Acute on chronic systolic heart failure Current Visit: No Status: Acute Plan to address problem: End-stage dilated cardiomyopathy and chronic systolic heart failure. Continue medical therapy as previously outlined. Subjective Date of service: 06/18/18 Interval history: No new cardiac complaints, patient appears chronically ill. Objective Vital Signs Temp Pulse Resp BP BP Pulse Ox 06/18/18 07:23 98.1 F 71 20 102/72 95 06/18/18 03:58 95 06/18/18 03:55 97.9 F 118 H 20 112/69 61 L 06/17/18 23:47 118 H 20 94 06/17/18 23:44 97.2 F L 20 107/74 06/17/18 20:04 22 97 06/17/18 19:52 97.3 F L 99 H 18 109/70 26 L 06/17/18 18:56 86 111/78 06/17/18 15:17 113 H 06/17/18 13:23 98.3 F 46 L 20 124/84 99 - Physical Examination General: Cachectic HEENT: Positive: PERRL Neck: Positive: neck supple Cardiac: Positive: Reg Rate and Rhythm Lungs: Positive: Decreased Breath Sounds Neuro: Positive: Grossly Intact Abdomen: Positive: Soft Skin: Positive: Clear Extremities: Present: +1 Edema - Labs and Meds Cardiac Enzymes 06/17/18 Range/Units 11:00 AST 66 H (5-40) units/L CBC 06/17/18 06/18/18 Range/Units 11:00 08:59 WBC 11.9 H 9.1 (4.5-11.0) K/mm3 RBC 5.25 H 5.29 H (3.65-5.03) M/mm3 Hgb 13.1 13.2 (10.1-14.3) gm/dl Hct 41.8 41.0 (30.3-42.9) % Plt Count 202 255 (140-440) K/mm3 Comprehensive Metabolic Panel 06/17/18 06/17/18 06/18/18 Range/Units 11:00 11:00 08:59 Sodium 128 L 128 L (137-145) mmol/L Potassium 4.6 5.9 H D (3.6-5.0) mmol/L Chloride 95.6 L 96.1 L (98-107) mmol/L Carbon Dioxide 15 L 20 L (22-30) mmol/L BUN 22 H 22 H (7-17) mg/dL Creatinine 1.0 1.0 (0.7-1.2) mg/dL Glucose 110 H 79 (65-100) mg/dL Calcium 8.3 L 8.7 (8.4-10.2) mg/dL Direct Bilirubin 1.6 H (0-0.2) mg/dL Indirect Bilirubin -1.4 mg/dL AST 66 H (5-40) units/L ALT 33 (7-56) units/L Alkaline Phosphatase 178 H (35-129) units/L Total Protein 4.7 L (6.3-8.2) g/dL Albumin 2.4 L (3.9-5) g/dL
--- NOTE | 2018-06-18 11:47 | Progress Note ---
Assessment and Plan Assessment and plan: Altered mental status, confusion,agitation Admitted to Tele MRI unremarkable psych consulted Encephalopathy MRI Brain Hypertension Permanent Atrial fib/flutter was on Eliquis. Cardiology, Dr. Liriano recommends hold Eliquis chronic systolic CHF EF 20-25% patient has been on hospice before consult Case management Hyponatremia due to CHF Elevated LFT Likely congestive hepatopathy Full code status History Interval history: Feels better Still confused but less Hospitalist Physical - Physical exam Narrative exam: GEN: Not in acute distress, lying in bed HEENT: Normocephalic, atraumatic, Neck: supple, No JVD heart: S1 and S2 reg, no murmurs Lungs: Clear to auscultation bilat, no crackles, no wheeze Abd:soft, non tender, non distended, normal bowel sounds Ext: No edema, no clubbing, no cyanosis Neuro:Awake,alert, oriented to person, not to place or time, moves all ext - Constitutional Vitals: Temp Pulse Resp BP Pulse Ox 98.1 F 71 20 102/72 95 06/18/18 07:23 06/18/18 07:23 06/18/18 07:23 06/18/18 07:23 06/18/18 07:23 General appearance: Present: no acute distress Results - Labs CBC & Chem 7: 06/18/18 08:59 06/18/18 21:28 Labs: Laboratory Last Values WBC 9.1 K/mm3 (4.5-11.0) 06/18/18 08:59 RBC 5.29 M/mm3 (3.65-5.03) H 06/18/18 08:59 Hgb 13.2 gm/dl (10.1-14.3) 06/18/18 08:59 Hct 41.0 % (30.3-42.9) 06/18/18 08:59 MCV 78 fl (79-97) L 06/18/18 08:59 MCH 25 pg (28-32) L 06/18/18 08:59 MCHC 32 % (30-34) 06/18/18 08:59 RDW 18.4 % (13.2-15.2) H 06/18/18 08:59 Plt Count 255 K/mm3 (140-440) 06/18/18 08:59 Lymph % (Auto) 13.8 % (13.4-35.0) 06/16/18 21:43 Douglas % (Auto) 7.3 % (0.0-7.3) 06/16/18 21:43 Eos % (Auto) 0.1 % (0.0-4.3) 06/16/18 21:43 Baso % (Auto) 0.0 % (0.0-1.8) 06/16/18 21:43 Lymph # 1.2 K/mm3 (1.2-5.4) 06/16/18 21:43 Douglas # 0.6 K/mm3 (0.0-0.8) 06/16/18 21:43 Eos # 0.0 K/mm3 (0.0-0.4) 06/16/18 21:43 Baso # 0.0 K/mm3 (0.0-0.1) 06/16/18 21:43 Seg Neutrophils % 78.8 % (40.0-70.0) H 06/16/18 21:43 Seg Neutrophils # 6.8 K/mm3 (1.8-7.7) 06/16/18 21:43 Sodium 128 mmol/L (137-145) L 06/18/18 08:59 Potassium 5.9 mmol/L (3.6-5.0) H D 06/18/18 08:59 Chloride 96.1 mmol/L (98-107) L 06/18/18 08:59 Carbon Dioxide 20 mmol/L (22-30) L 06/18/18 08:59 Anion Gap 18 mmol/L 06/18/18 08:59 BUN 22 mg/dL (7-17) H 06/18/18 08:59 Creatinine 1.0 mg/dL (0.7-1.2) 06/18/18 08:59 Estimated GFR > 60 ml/min 06/18/18 08:59 BUN/Creatinine Ratio 22 % 06/18/18 08:59 Glucose 79 mg/dL (65-100) 06/18/18 08:59 POC Glucose 91 (70-105) 06/17/18 21:15 Hemoglobin A1c 5.5 % (4-6) 06/17/18 15:08 Lactic Acid 4.00 mmol/L (0.7-2.0) H* 06/17/18 15:08 Calcium 8.7 mg/dL (8.4-10.2) 06/18/18 08:59 Total Bilirubin < 0.20 mg/dL (0.1-1.2) 06/17/18 11:00 Direct Bilirubin 1.6 mg/dL (0-0.2) H 06/17/18 11:00 Indirect Bilirubin -1.4 mg/dL 06/17/18 11:00 AST 66 units/L (5-40) H 06/17/18 11:00 ALT 33 units/L (7-56) 06/17/18 11:00 Alkaline Phosphatase 178 units/L (35-129) H 06/17/18 11:00 Ammonia 10.0 umol/L (25-60) L 06/17/18 15:08 Troponin T < 0.010 ng/mL (0.00-0.029) 06/16/18 22:25 Total Protein 4.7 g/dL (6.3-8.2) L 06/17/18 11:00 Albumin 2.4 g/dL (3.9-5) L 06/17/18 11:00 Albumin/Globulin Ratio 1.0 % 06/17/18 11:00 TSH 1.770 mlU/mL (0.270-4.200) 06/17/18 23:00 Free T4 1.53 ng/dL (0.76-1.46) H 06/17/18 23:00 Urine Color Caryl (Yellow) 06/16/18 Unknown Urine Turbidity Clear (Clear) 06/16/18 Unknown Urine pH 5.0 (5.0-7.0) 06/16/18 Unknown Ur Specific [place] 1.025 (1.003-1.030) 06/16/18 Unknown Urine Protein 100 mg/dl mg/dL (Negative) 06/16/18 Unknown Urine Glucose (UA) 50 mg/dL (Negative) 06/16/18 Unknown Urine Ketones Neg mg/dL (Negative) 06/16/18 Unknown Urine Blood Neg (Negative) 06/16/18 Unknown Urine Nitrite Neg (Negative) 06/16/18 Unknown Urine Bilirubin Neg (Negative) 06/16/18 Unknown Urine Urobilinogen 4.0 mg/dL (<2.0) 06/16/18 Unknown Ur Leukocyte Esterase Neg (Negative) 06/16/18 Unknown Urine WBC (Auto) 4.0 /HPF (0.0-6.0) 06/16/18 Unknown Urine RBC (Auto) 5.0 /HPF (0.0-6.0) 06/16/18 Unknown U Epithel Cells (Auto) 7.0 /HPF (0-13.0) 06/16/18 Unknown Hyaline Casts 49 /LPF 06/16/18 Unknown Urine Mucus Few /HPF 06/16/18 Unknown Salicylates 5.5 mg/dL (2.8-20.0) 06/16/18 21:43 Urine Opiates Screen Presumptive negative 06/16/18 Unknown Urine Methadone Screen Presumptive negative 06/16/18 Unknown Acetaminophen < 5.0 ug/mL (10.0-30.0) L 06/16/18 21:43 Ur Barbiturates Screen Presumptive negative 06/16/18 Unknown Ur Phencyclidine Scrn Presumptive negative 06/16/18 Unknown Ur Amphetamines Screen Presumptive negative 06/16/18 Unknown U Benzodiazepines Scrn Presumptive negative 06/16/18 Unknown Urine Cocaine Screen Presumptive negative 06/16/18 Unknown U Marijuana (THC) Screen Presumptive negative 06/16/18 Unknown Drugs of Abuse Note Disclamer 06/16/18 Unknown Plasma/Serum Alcohol < 0.01 % (0-0.07) 06/16/18 21:43
[2018-06-18] MEDS: DOBUTREX DRIP 500MG/D5W 250ML 500 MG/250 ML BAG IV SCH (19:16)
--- NOTE | 2018-06-18 19:52 | Consultation ---
History of Present Illness - Reason for Consult Consult date: 06/18/18 Reason for consult: Initial Psychiatric Evaluation - Chief Complaint Chief complaint: "I'm here because I needed help" - History of Present Psychiatric Illness Patient is a 68-year-old female who presented to the ED with altered mental status. Patient could be heard cursing and screaming on the stretcher. Patient was picked up by EMS after her nephew called 911 and stated patient woke up and began tearing the house apart. Psychiatry was consulted for agitation and confusion. Today the patient is anxious and confused during the assessment. Family at bedside. Patient responses to questions were inappropriate and not logical. She has to redirected to stay on topic several times during the assessment. She states, " my neighbor said someone was going in and out of my house." Patient denies PPHx. She denies anhedonia, decrease energy, decrease appetite, decrease sleep, auditory/visual hallucinations, and suicidal/homicidal ideations. She endorses paranoid delusions. Current Psychiatric Medications: Patient denies. Past Psychiatric History: No previous psychiatric diagnosis; no previous inpatient psychiatric hospitalizations; no outpatient psychiatrist; no previous suicide attempts. Past Medication Trials: Patient denies. History Trauma/Abuse: Patient denies sexual, physical, and mental abuse. History Drug/Alcohol Abuse: Patient denies. Social History: Some college-highest level of education; 1 son; monthly income- disability/senior care; good support system; lives with nephewRanjan. Family History of Psychiatric Illness/Substance Abuse: Patient denies. Medications and Allergies Allergies Allergy/AdvReac Type Severity Reaction Status Date / Time Penicillins Allergy Unknown Verified 09/04/17 14:11 aspirin AdvReac Nausea Verified 09/04/17 14:10 NSAIDS (Non-Steroidal AdvReac Nausea Verified 09/04/17 14:10 Anti-Inflamma Pork/Porcine Containing AdvReac Nausea Verified 11/01/17 09:04 Products Home Medications Medication Instructions Recorded Confirmed Last Taken Type Apixaban [Eliquis] 5 mg PO DAILY 09/06/17 10/31/17 Unknown History AtorvaSTATin [Lipitor] 20 mg PO DAILY 09/06/17 10/31/17 Unknown History Loperamide HCl [Loperamide] 2 mg PO DAILY 09/06/17 10/31/17 Unknown History Sertraline [Zoloft] 50 mg PO DAILY 09/06/17 10/31/17 10/17/17 10:00 History Sucralfate [Carafate] 1 gm PO DAILY 09/06/17 10/31/17 Unknown History Carvedilol [Coreg] 12.5 mg PO BID #60 tablet 09/08/17 10/31/17 Unknown Rx Lisinopril [Zestril TAB] 5 mg PO QDAY #30 tablet 09/08/17 10/31/17 Unknown Rx Doxycycline [Vibramycin CAP] 100 mg PO Q12HR #10 capsule 11/02/17 Unknown Rx Furosemide [Lasix] 20 mg PO QDAY #30 tablet 11/02/17 Unknown Rx Active Meds: Active Medications Acetaminophen (Tylenol) 650 mg PO Q4H PRN PRN Reason: Fever >101 Last Admin: 06/17/18 16:14 Dose: 650 mg Documented by: Levofloxacin/Dextrose (Levaquin 750mg/150ml) 750 mg in 150 mls @ 100 mls/hr IV Q24HR@2200 JEANETTE; Protocol Last Admin: 06/17/18 21:28 Dose: 100 mls/hr Documented by: Dobutamine HCl/Dextrose (Dobutrex Drip 500mg/D5w 250ml) 500 mg in 250 mls @ 4.491 mls/hr IV TITR JEANETTE; Protocol Last Admin: 06/18/18 19:16 Dose: 2 mcg/kg/min, 4.491 mls/hr Documented by: Metoprolol Tartrate (Lopressor) 2.5 mg IV Q6HR JEANETTE Last Admin: 06/18/18 19:12 Dose: 2.5 mg Documented by: Ondansetron HCl (Zofran) 4 mg IV Q8H PRN PRN Reason: Nausea And Vomiting Mental Status Exam - Vital signs Last Vital Signs Temp 98.0 F 06/18/18 18:36 Pulse 119 H 06/18/18 18:36 Resp 16 06/18/18 18:36 BP 109/76 06/18/18 18:36 Pulse Ox 98 06/18/18 18:36 - Exam Narrative exam: Mental Status Exam Appearance: anxious, cooperative Behavior: regular eye contact; confused Speech: regular rate and tone Mood: "mixed emotions" Affect: labile Thought Process: circumstantial, disorganized Thought Content: denies SI/HI's, A/VH's; + paranoid delusions Motor Activity: laying in the bed Cognition: A/O x 2 ( person, place) Insight: poor Judgment: poor Results Result Diagrams: 06/18/18 08:59 06/18/18 21:28 Abnormal lab results 06/17/18 06/18/18 06/18/18 Range/Units 23:00 08:59 08:59 RBC 5.29 H (3.65-5.03) M/mm3 MCV 78 L (79-97) fl MCH 25 L (28-32) pg RDW 18.4 H (13.2-15.2) % Sodium 128 L (137-145) mmol/L Potassium 5.9 H D (3.6-5.0) mmol/L Chloride 96.1 L (98-107) mmol/L Carbon Dioxide 20 L (22-30) mmol/L BUN 22 H (7-17) mg/dL POC Glucose (70-105) Free T4 1.53 H (0.76-1.46) ng/dL 06/18/18 Range/Units 12:49 RBC (3.65-5.03) M/mm3 MCV (79-97) fl MCH (28-32) pg RDW (13.2-15.2) % Sodium (137-145) mmol/L Potassium (3.6-5.0) mmol/L Chloride (98-107) mmol/L Carbon Dioxide (22-30) mmol/L BUN (7-17) mg/dL POC Glucose 60 L (70-105) Free T4 (0.76-1.46) ng/dL All other labs normal. Assessment and Plan Assessment and plan: Impression: Neurocognitive Disorder. Unspecified Psychosis. Today the patient is anxious, confused, and disorganized during the assessment. Paranoid delusions are noted. She denies SI/HI's, A/VH's. Alert and oriented x 2. Recommendation/Plan: 1. Will reassess in 24 hours. 2. Will attempt to gain collateral. 3. Discussed the benefits and risks of medications. Patient is refusing anti- psychotics. She prefers talk therapy. Disposition: Once medically cleared the patient will be referred to inpatient psychiatric services. Will staff with Dr. Luna.
[2018-06-18] MEDS: LEVAQUIN 750MG/150ML 750 MG/150 ML BAG IV SCH (22:09)
[2018-06-19] MEDS: TYLENOL PO PRN (01:27)
[2018-06-19] MEDS ORDERED: KIONEX PO ONE (01:35)
[2018-06-19] MEDS ORDERED: KIONEX ONE (06:16)
[2018-06-19] MEDS: LOPRESSOR IV SCH ×4 (06:16→17:17)
--- NOTE | 2018-06-19 11:35 | Progress Note ---
Assessment and Plan Assessment and plan: Altered mental status, confusion,agitation Admitted to Tele MRI unremarkable psych consulted Encephalopathy MRI Brain Hypertension Permanent Atrial fib/flutter was on Eliquis. Cardiology, Dr. Loya recommends hold Eliquis may resume tomorrow chronic systolic CHF EF 20-25% patient has been on hospice before, but states she was discharged from hospice. consult Case management Hyponatremia due to CHF na 122 today. consult Nephrology Elevated LFT Likely congestive hepatopathy Full code status History Interval history: Feels better Still confused but less No fever Hospitalist Physical - Physical exam Narrative exam: GEN: Not in acute distress, lying in bed HEENT: Normocephalic, atraumatic, Neck: supple, No JVD heart: S1 and S2 reg, no murmurs, rubs or gallop Lungs: Clear to auscultation bilat, no crackles, no wheeze Abd:soft, non tender, non distended, normal bowel sounds Ext: No edema, no clubbing, no cyanosis Neuro:Awake,alert, oriented to person, place,time. Some confusion, moves all ext - Constitutional Vitals: Temp Pulse Resp BP Pulse Ox 97.4 F L 118 H 18 114/75 100 06/19/18 07:53 06/19/18 07:53 06/19/18 07:53 06/19/18 07:53 06/19/18 07:53 General appearance: Present: no acute distress Results - Labs CBC & Chem 7: 06/19/18 14:47 06/19/18 13:23 Labs: Laboratory Last Values WBC 9.1 K/mm3 (4.5-11.0) 06/18/18 08:59 RBC 5.29 M/mm3 (3.65-5.03) H 06/18/18 08:59 Hgb 13.2 gm/dl (10.1-14.3) 06/18/18 08:59 Hct 41.0 % (30.3-42.9) 06/18/18 08:59 MCV 78 fl (79-97) L 06/18/18 08:59 MCH 25 pg (28-32) L 06/18/18 08:59 MCHC 32 % (30-34) 06/18/18 08:59 RDW 18.4 % (13.2-15.2) H 06/18/18 08:59 Plt Count 255 K/mm3 (140-440) 06/18/18 08:59 Lymph % (Auto) 13.8 % (13.4-35.0) 06/16/18 21:43 [place] % (Auto) 7.3 % (0.0-7.3) 06/16/18 21:43 Eos % (Auto) 0.1 % (0.0-4.3) 06/16/18 21:43 Baso % (Auto) 0.0 % (0.0-1.8) 06/16/18 21:43 Lymph # 1.2 K/mm3 (1.2-5.4) 06/16/18 21:43 [place] # 0.6 K/mm3 (0.0-0.8) 06/16/18 21:43 Eos # 0.0 K/mm3 (0.0-0.4) 06/16/18 21:43 Baso # 0.0 K/mm3 (0.0-0.1) 06/16/18 21:43 Seg Neutrophils % 78.8 % (40.0-70.0) H 06/16/18 21:43 Seg Neutrophils # 6.8 K/mm3 (1.8-7.7) 06/16/18 21:43 Sodium 128 mmol/L (137-145) L 06/18/18 08:59 Potassium 5.4 mmol/L (3.6-5.0) H 06/18/18 21:28 Chloride 96.1 mmol/L (98-107) L 06/18/18 08:59 Carbon Dioxide 20 mmol/L (22-30) L 06/18/18 08:59 Anion Gap 18 mmol/L 06/18/18 08:59 BUN 22 mg/dL (7-17) H 06/18/18 08:59 Creatinine 1.0 mg/dL (0.7-1.2) 06/18/18 08:59 Estimated GFR > 60 ml/min 06/18/18 08:59 BUN/Creatinine Ratio 22 % 06/18/18 08:59 Glucose 79 mg/dL (65-100) 06/18/18 08:59 POC Glucose 87 (70-105) 06/18/18 18:31 Hemoglobin A1c 5.5 % (4-6) 06/17/18 15:08 Lactic Acid 4.00 mmol/L (0.7-2.0) H* 06/17/18 15:08 Calcium 8.7 mg/dL (8.4-10.2) 06/18/18 08:59 Total Bilirubin < 0.20 mg/dL (0.1-1.2) 06/17/18 11:00 Direct Bilirubin 1.6 mg/dL (0-0.2) H 06/17/18 11:00 Indirect Bilirubin -1.4 mg/dL 06/17/18 11:00 AST 66 units/L (5-40) H 06/17/18 11:00 ALT 33 units/L (7-56) 06/17/18 11:00 Alkaline Phosphatase 178 units/L (35-129) H 06/17/18 11:00 Ammonia 10.0 umol/L (25-60) L 06/17/18 15:08 Troponin T < 0.010 ng/mL (0.00-0.029) 06/16/18 22:25 Total Protein 4.7 g/dL (6.3-8.2) L 06/17/18 11:00 Albumin 2.4 g/dL (3.9-5) L 06/17/18 11:00 Albumin/Globulin Ratio 1.0 % 06/17/18 11:00 TSH 1.770 mlU/mL (0.270-4.200) 06/17/18 23:00 Free T4 1.53 ng/dL (0.76-1.46) H 06/17/18 23:00 Urine Color Caryl (Yellow) 06/16/18 Unknown Urine Turbidity Clear (Clear) 06/16/18 Unknown Urine pH 5.0 (5.0-7.0) 06/16/18 Unknown Ur Specific [place] 1.025 (1.003-1.030) 06/16/18 Unknown Urine Protein 100 mg/dl mg/dL (Negative) 06/16/18 Unknown Urine Glucose (UA) 50 mg/dL (Negative) 06/16/18 Unknown Urine Ketones Neg mg/dL (Negative) 06/16/18 Unknown Urine Blood Neg (Negative) 06/16/18 Unknown Urine Nitrite Neg (Negative) 06/16/18 Unknown Urine Bilirubin Neg (Negative) 06/16/18 Unknown Urine Urobilinogen 4.0 mg/dL (<2.0) 06/16/18 Unknown Ur Leukocyte Esterase Neg (Negative) 06/16/18 Unknown Urine WBC (Auto) 4.0 /HPF (0.0-6.0) 06/16/18 Unknown Urine RBC (Auto) 5.0 /HPF (0.0-6.0) 06/16/18 Unknown U Epithel Cells (Auto) 7.0 /HPF (0-13.0) 06/16/18 Unknown Hyaline Casts 49 /LPF 06/16/18 Unknown Urine Mucus Few /HPF 06/16/18 Unknown Salicylates 5.5 mg/dL (2.8-20.0) 06/16/18 21:43 Urine Opiates Screen Presumptive negative 06/16/18 Unknown Urine Methadone Screen Presumptive negative 06/16/18 Unknown Acetaminophen < 5.0 ug/mL (10.0-30.0) L 06/16/18 21:43 Ur Barbiturates Screen Presumptive negative 06/16/18 Unknown Ur Phencyclidine Scrn Presumptive negative 06/16/18 Unknown Ur Amphetamines Screen Presumptive negative 06/16/18 Unknown U Benzodiazepines Scrn Presumptive negative 06/16/18 Unknown Urine Cocaine Screen Presumptive negative 06/16/18 Unknown U Marijuana (THC) Screen Presumptive negative 06/16/18 Unknown Drugs of Abuse Note Disclamer 06/16/18 Unknown Plasma/Serum Alcohol < 0.01 % (0-0.07) 06/16/18 21:43
--- NOTE | 2018-06-19 11:53 | Progress Note ---
Assessment and Plan - Patient Problems (1) Acute on chronic systolic heart failure Current Visit: No Status: Acute Plan to address problem: End-stage dilated cardiomyopathy and chronic systolic heart failure. Continue medical therapy as previously outlined. Subjective Date of service: 06/19/18 Interval history: Patient is comfortable, no chest pain, shortness of breath has improved. She only has mild residual lower extremity edema. She remains on intravenous dobutamine. Objective Vital Signs Temp Pulse Resp BP BP Pulse Ox 06/19/18 07:53 97.4 F L 118 H 18 114/75 100 06/19/18 06:16 100 H 06/19/18 05:09 98 F 100 H 20 121/84 98 06/18/18 23:30 98 F 113 H 18 118/68 94 06/18/18 20:45 113 H 06/18/18 18:36 98.0 F 119 H 16 109/76 98 06/18/18 15:00 119 H - Physical Examination General: No Apparent Distress HEENT: Positive: PERRL Neck: Positive: neck supple Cardiac: Positive: Reg Rate and Rhythm Lungs: Positive: Decreased Breath Sounds Neuro: Positive: Grossly Intact Abdomen: Positive: Soft Skin: Positive: Clear Extremities: Present: +1 Edema - Labs and Meds Comprehensive Metabolic Panel 06/18/18 Range/Units 21:28 Potassium 5.4 H (3.6-5.0) mmol/L
--- NOTE | 2018-06-19 11:55 | Progress Note ---
Subjective - Reason for Consult Consult date: 06/19/18 Reason for consult: Psychiatric Follow-up Evaluation - Chief Complaint Chief complaint: "I feel like I want to go home" Patient is a 68-year-old female who presented to the ED with altered mental status. Today the patient is anxious and disorganized during the assessment. Responses to questions are not logical. Confusion is noted. Patient is alert and oriented x 2. Patient denies SI/HI's and A/VH's. Paranoid delusions are noted. Mental Status Exam - Vital signs Last Vital Signs Temp 97.4 F L 06/19/18 07:53 Pulse 118 H 06/19/18 07:53 Resp 18 06/19/18 07:53 BP 114/75 06/19/18 07:53 Pulse Ox 100 06/19/18 07:53 - Exam Narrative exam: Mental Status Exam Appearance: anxious, cooperative Behavior: regular eye contact; confused Speech: regular rate and tone Mood: "I'm ready to go home" Affect: labile Thought Process: circumstantial, disorganized Thought Content: denies SI/HI's, A/VH's; + paranoid delusions Motor Activity: laying in the bed Cognition: A/O x 2 ( person, place) Insight: poor Judgment: poor Assessment and Plan Impression: Neurocognitive Disorder. Unspecified Psychosis. Today the patient is anxious, confused, and disorganized during the assessment. Paranoid delusions are noted. She denies SI/HI's, A/VH's. Alert and oriented x 2. Potassium trending downward 4.9. Recommendation/Plan: 1. Will reassess in 24 hours. 2. Will attempt to gain collateral. 3. Discussed the benefits and risks of medications. Patient is refusing anti- psychotics. She prefers talk therapy. Disposition: Once medically cleared the patient will be referred to inpatient psychiatric services. Will staff with Dr. Luna.
[2018-06-19 14:05] LABS: BUN/Creatinine Ratio 23; Blood Urea Nitrogen 21 mg/dL (7-17); Calcium 8.3 mg/dL (8.4-10.2); Hemolysis Index 111
[2018-06-19 15:35] LABS: Mean Corpuscular HGB Conc 31 % (30-34); Mean Corpuscular Volume 82 fl (79-97); Red Blood Count 5.51 M/mm3 (3.65-5.03); Red Cell Distribution Width 18.6 % (13.2-15.2)
[2018-06-19 15:36] LABS: Hematocrit 45.3 % (30.3-42.9); Platelet Count 288 K/mm3 (140-440)
--- NOTE | 2018-06-19 16:06 | Consultation ---
History of Present Illness - Reason for Consult Consult date: 06/19/18 hyponatremia Requesting physician: SEBAS ARNOLD - History of Present Illness 68-year-old lady with a history of end-stage cardiomyopathy admitted on account of altered mental status. Patient was cursing and screaming at home and so her nephew called 911. Nephew stated patient woke up and started tearing up the house and tried to climb over a fence to her neighbors. On getting to the ER sh e kept saying "911 SpongeBob". Sodium was 129 mmol on presentation decreased to 128 and today to 122 mmols/L. Interestingly her lactic acid was high at 4.3 with bicarbonate low at 13 mmol per liter. I am consulted to assist with managing hyponatremia. Patient has chronic systolic heart failure with ejection fraction of 20-25% and severe global left ventricle hypokinesia. She was discharged to hospice Apr 27 2018 from [facility]. BUN/creatinine normal at 21 and 0.9 mg/dL. Urinalysis however shows proteinuria. Ground Wood Supervisor was consulted and patient was started on IV dobutamine and IV metoprolol for rate control. She has atrial fibrillation and rate was high on presentation. She has also started on antibiotics for presumed sepsis. Patient was not taking any nonsteroidal anti-inflammatory drugs but she does drink a lot of fluids she states. Thyroid-stimulating hormone is a bit high. Past History Past Medical History: atrial fib, arrhythmia, CAD, cancer (breast), hyperlipidemia Past Surgical History: Other (right lumpectomy for breast cancer) Social history: lives with family (Nephew. 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 denies: smoking (quit 15 years ago), alcohol abuse (Quit 15 years ago) Family history: CAD (Parents of Acute myocardial infarction), other (Father of complications of emphysema and had a myocardial infarction. She has 15 siblings and only 7 are still alive. One brother had kidney failure. A number of them had mental illnesses.) Medications and Allergies Allergies Allergy/AdvReac Type Severity Reaction Status Date / Time Penicillins Allergy Unknown Verified 09/04/17 14:11 aspirin AdvReac Nausea Verified 09/04/17 14:10 NSAIDS (Non-Steroidal AdvReac Nausea Verified 09/04/17 14:10 Anti-Inflamma Pork/Porcine Containing AdvReac Nausea Verified 11/01/17 09:04 Products Home Medications Medication Instructions Recorded Confirmed Last Taken Type Apixaban [Eliquis] 5 mg PO DAILY 09/06/17 10/31/17 Unknown History AtorvaSTATin [Lipitor] 20 mg PO DAILY 09/06/17 10/31/17 Unknown History Loperamide HCl [Loperamide] 2 mg PO DAILY 09/06/17 10/31/17 Unknown History Sertraline [Zoloft] 50 mg PO DAILY 09/06/17 10/31/17 10/17/17 10:00 History Sucralfate [Carafate] 1 gm PO DAILY 09/06/17 10/31/17 Unknown History Carvedilol [Coreg] 12.5 mg PO BID #60 tablet 09/08/17 10/31/17 Unknown Rx Lisinopril [Zestril TAB] 5 mg PO QDAY #30 tablet 09/08/17 10/31/17 Unknown Rx Doxycycline [Vibramycin CAP] 100 mg PO Q12HR #10 capsule 11/02/17 Unknown Rx Furosemide [Lasix] 20 mg PO QDAY #30 tablet 11/02/17 Unknown Rx Active Meds: Active Medications Acetaminophen (Tylenol) 650 mg PO Q4H PRN PRN Reason: Fever >101 Last Admin: 06/19/18 01:27 Dose: 650 mg Documented by: Levofloxacin/Dextrose (Levaquin 750mg/150ml) 750 mg in 150 mls @ 100 mls/hr IV Q24HR@2200 JEANETTE; Protocol Last Admin: 06/18/18 22:09 Dose: 100 mls/hr Documented by: Dobutamine HCl/Dextrose (Dobutrex Drip 500mg/D5w 250ml) 500 mg in 250 mls @ 4.491 mls/hr IV TITR JEANETTE; Protocol Last Admin: 06/18/18 19:16 Dose: 2 mcg/kg/min, 4.491 mls/hr Documented by: Metoprolol Tartrate (Lopressor) 2.5 mg IV Q6HR JEANETTE Last Admin: 06/19/18 11:43 Dose: 2.5 mg Documented by: Ondansetron HCl (Zofran) 4 mg IV Q8H PRN PRN Reason: Nausea And Vomiting Review of Systems ROS unobtainable: due to mental status (Notes that her feet are tight and admits to swelling of her legs and shortness of breath but keeps having flight of ideas and is not able to answer all the questions on review of systems) Exam - Vital Signs Vital signs: Vital Signs Pulse Resp BP Pulse Ox 60 19 137/81 96 06/16/18 20:44 06/16/18 20:44 06/16/18 20:44 06/16/18 20:44 - Physical Exam Narrative exam: Elderly -Bhut[place] female lying in bed in no acute distress HEENT: NCAT, pink oral mucous membrane Neck: Supple, venous distention+ CVS: S1S2 regular with systolic murmur, no rub or gallop Chest: Clear to auscultation but breath sounds are diminished in the bases Abdomen: Protuberant, soft, nontender, no organomegaly, bowel sounds are present Extremities: 2-3+ pitting edema Skin is cool with pigmentary changes Genitourinary deferred Neuro: Awake, alert no focal deficits Results - Lab Results 06/19/18 14:47 06/19/18 13:23 Most recent lab results Calcium 8.3 mg/dL (8.4-10.2) L 06/19/18 13:23 Assessment and Plan 1.Hyponatremia hypervolemic secondary to congestive heart failure. Zoloft/ sertraline may also cause SIADH and so this may also be a contributing factor. 2. End-stage cardiomyopathy not deemed a candidate for advanced heart failure management was meant to be discharged to hospice. 3.Lactic acidosis 4. Altered mental status on presentation 5. Congestive hepatopathy 6 . Chronic atrial fibrillation 7. Hyperlipidemia 8. Hyperkalemia on presentation improved with Kayexalate 9. History of major depression with psychosis Recommendations: Get urine sodium and Osmolality Check Serum uric acid Discussed sodium and fluid restriction. Repeat sodium and if it decreases any further, we will start patient on Tolvaptan a V2 receptor antagonist Follow sodium closely. Consider stopping SSRI if sodium is not improving with the above measures. Thanks for consulting me. It's a pleasure to be involved in care of patients with you. I'll follow this patient along with you and make further recommendations as indicated.
[2018-06-19] MEDS: LASIX IV SCH (17:17)
[2018-06-19 21:26] LABS: Creatinine,Urine 61.7 mg/dL (0.1-20.0)
[2018-06-19] MEDS: LEVAQUIN 750MG/150ML 750 MG/150 ML BAG IV SCH (22:41)
[2018-06-19] MEDS: HEPARIN SUB-Q SCH (22:41)
[2018-06-20] MEDS: LOPRESSOR IV SCH ×5 (01:10→23:44)
[2018-06-20] MEDS: HEPARIN SUB-Q SCH (05:35)
[2018-06-20] MEDS: LASIX IV SCH ×2 (05:35→18:47)
[2018-06-20] MEDS: DOBUTREX DRIP 500MG/D5W 250ML 500 MG/250 ML BAG IV SCH (05:37)
[2018-06-20 07:57] LABS: Calcium 8.5 mg/dL (8.4-10.2); Uric Acid 8.6 mg/dL (3.5-7.6)
[2018-06-20] MEDS ORDERED: LOPRESSOR IV STA (09:19)
[2018-06-20] MEDS ORDERED: MAGNESIUM SULFATE 3 GM in NACL 0.9% 100 ML IV ONE (10:00)
--- NOTE | 2018-06-20 11:35 | Progress Note ---
Assessment and Plan Chronic systolic heart failure Permanent atrial fibrillation/flutter Severe depression Altered mental status Recently discharged from [facility] to home hospice care Non-ischemic cardiomyopathy Lactic acidosis Hyponatremia - chronic Elevated bilirubin and alk phosphatase - chronic secondary to congestive hepatopathy Non-compliance with medical therapy and outpatient cardiac follow up. Echo 04/2018 at [facility] showed: a 4 chamber dilated cardiomyopathy, LVEF severely decreased, 20-25%. Moderate mitral regurgitation. Severe TR. RVSP is severely elevated. Plan: Due to rapid Afib on telemetry, we will discontinue intravenous dobutrex. We will instead, initiate intravenous milrinone for aggressive heart failure management. Subjective Date of service: 06/20/18 Interval history: Patient awake and alert. No distress noted. Sitter at bedside. Rapid afib on telemetry. IV dobutrex continues. Objective Vital Signs Temp Pulse Resp BP BP Pulse Ox 06/20/18 09:43 79 140/98 06/20/18 04:10 97.8 F 117 H 24 135/88 99 06/20/18 03:14 97.8 F 119 H 26 H 136/101 100 06/20/18 01:10 105 H 123/82 06/20/18 00:46 97.5 F L 116 H 22 123/82 100 06/19/18 19:48 116 H 06/19/18 19:35 97.9 F 50 L 20 108/78 100 06/19/18 16:29 107/71 06/19/18 12:21 114/74 - Physical Examination General: No Apparent Distress HEENT: Positive: PERRL Neck: Positive: trachea midline Cardiac: Positive: irregularly irregular Lungs: Positive: Decreased Breath Sounds Neuro: Positive: Grossly Intact Abdomen: Positive: Soft Skin: Positive: Clear Extremities: Present: +1 Edema - Labs and Meds CBC 06/19/18 Range/Units 14:47 WBC 8.6 (4.5-11.0) K/mm3 RBC 5.51 H (3.65-5.03) M/mm3 Hgb 14.0 (10.1-14.3) gm/dl Hct 45.3 H (30.3-42.9) % Plt Count 288 (140-440) K/mm3 Comprehensive Metabolic Panel 06/19/18 06/20/18 Range/Units 13:23 07:31 Sodium 122 L 132 L D (137-145) mmol/L Potassium 4.9 3.7 D (3.6-5.0) mmol/L Chloride 95.0 L 94.3 L (98-107) mmol/L Carbon Dioxide 13 L D 24 D (22-30) mmol/L BUN 21 H 20 H (7-17) mg/dL Creatinine 0.9 1.1 (0.7-1.2) mg/dL Glucose 119 H 81 (65-100) mg/dL Calcium 8.3 L 8.5 (8.4-10.2) mg/dL
--- NOTE | 2018-06-20 13:55 | Progress Note ---
Subjective - Reason for Consult Consult date: 06/20/18 Reason for consult: Psychiatry Follow-up - Chief Complaint Chief complaint: "Call my son" 68-year-old female who presented to the ED with altered mental status. Today the patient is calm, but somewhat paranoid during the assessment She looks around and pause for several seconds before she attempt to answer questions. She was able to state her and recall 1/3 numbers in 5 mins. She is adamant that her son know what's going on her. She could bot elaborate why she's a patient in the hospital when asked. She denies SI/HI's and AVH's. Mental Status Exam - Vital signs Last Vital Signs Temp 97.4 F L 06/20/18 12:29 Pulse 79 06/20/18 09:43 Resp 18 06/20/18 12:29 BP 125/90 06/20/18 12:29 Pulse Ox 99 06/20/18 04:10 - Exam Narrative exam: MSE: Appearance: calm, cooperative Behavior: regular eye contact Speech: regular rate and loud tone Mood: "okay" Affect: congruent to mood Thought Process: circumstantial Thought Content: denies SI/HI's and AVH's, somewhat paranoid Motor Activity: sitting up in the bed Cognition: A/O x2, with some confusion. Insight: limited Judgment: variable Assessment and Plan Impression: Delirium. Today the patient is confused during the assessment. MA 132. Elevated LF's. Recommendation/Plan: Gather collateral information to help determine proper treatment. Recommend Delirium precautions below: 1. Frequently reorient patient and involve him/her in their care (simple explanations of procedures, tests, medications). 2. Lights on and shades open during daytime hours. 3. Write date and goals of care in a visible place. 4. Try to avoid unnecessary interruptions to sleep during nighttime hours. 5. Obtain glasses, hearing aids from home if patient uses these at baseline. 6. Avoid medications that may exacerbate delirium (especially narcotics, benzodiazepines, barbiturates, ambien, lunesta, and medications with excessive anticholinergic properties). 7. Continue 1:1 sitter for safety. Dispo: Once collateral information is gathered and medically clear, proper dispo will be determined. Will staff with Dr Pete Rey.
--- NOTE | 2018-06-20 15:21 | Progress Note ---
Assessment and Plan Assessment and plan: Patient is 68 yo with hypertension, CHF afib presented with altered mental status, was confused , climbing a fence , running wild therefore brought to ED. No previous psych history. CT neg. She was sedated in ED, and admitted. MRI Brain unremarkable. Patient evaluated by Neuro. She is now calm, less confused , some psychosis. Altered mental status, confusion,agitation Admitted to Tele MRI unremarkable psych consulted Encephalopathy MRI Brain unremarkable Neurology following Psychosis Psych following on 101 Paranoid delusions Hypertension Permanent Atrial fib/flutter Eliquis resumed chronic systolic CHF EF 20-25% patient has been on hospice before, but states she was discharged from hospice. consulted Case management to investigate Hyponatremia due to CHF na 132 today improved from 122 yesterday. Nephrology following Elevated LFT Likely congestive hepatopathy Abnormal CT head with Air in cavernous sinus vessels and soft tissue tissue. MRI Brain did not show any of this. I went down to Radiology, looked at films with Dr. Payne and he says it may be just air given with iv meds but recommends repeat CT head with and without contrast. Full code status History Interval history: Feels better Still confused but less No fever Hospitalist Physical - Physical exam Narrative exam: GEN: Not in acute distress, lying in bed HEENT: Normocephalic, atraumatic, Neck: supple, No JVD heart: S1 and S2 reg, no murmurs, rubs or gallop Lungs: Clear to auscultation bilat, no crackles, no wheeze Abd:soft, non tender, non distended, normal bowel sounds Ext: No edema, no clubbing, no cyanosis Neuro:Awake,alert, oriented to person, place,time. Some confusion, moves all ext - Constitutional Vitals: Temp Pulse Resp BP Pulse Ox 97.4 F L 79 18 125/90 99 06/20/18 12:29 06/20/18 09:43 06/20/18 12:29 06/20/18 12:29 06/20/18 04:10 General appearance: Present: no acute distress Results - Labs CBC & Chem 7: 06/19/18 14:47 06/20/18 07:31 Labs: Laboratory Last Values WBC 8.6 K/mm3 (4.5-11.0) 06/19/18 14:47 RBC 5.51 M/mm3 (3.65-5.03) H 06/19/18 14:47 Hgb 14.0 gm/dl (10.1-14.3) 06/19/18 14:47 Hct 45.3 % (30.3-42.9) H 06/19/18 14:47 MCV 82 fl (79-97) 06/19/18 14:47 MCH 25 pg (28-32) L 06/19/18 14:47 MCHC 31 % (30-34) 06/19/18 14:47 RDW 18.6 % (13.2-15.2) H 06/19/18 14:47 Plt Count 288 K/mm3 (140-440) 06/19/18 14:47 Lymph % (Auto) 13.8 % (13.4-35.0) 06/16/18 21:43 [place] % (Auto) 7.3 % (0.0-7.3) 06/16/18 21:43 Eos % (Auto) 0.1 % (0.0-4.3) 06/16/18 21:43 Baso % (Auto) 0.0 % (0.0-1.8) 06/16/18 21:43 Lymph # 1.2 K/mm3 (1.2-5.4) 06/16/18 21:43 Union # 0.6 K/mm3 (0.0-0.8) 06/16/18 21:43 Eos # 0.0 K/mm3 (0.0-0.4) 06/16/18 21:43 Baso # 0.0 K/mm3 (0.0-0.1) 06/16/18 21:43 Seg Neutrophils % 78.8 % (40.0-70.0) H 06/16/18 21:43 Seg Neutrophils # 6.8 K/mm3 (1.8-7.7) 06/16/18 21:43 Sodium 132 mmol/L (137-145) L D 06/20/18 07:31 Potassium 3.7 mmol/L (3.6-5.0) D 06/20/18 07:31 Chloride 94.3 mmol/L (98-107) L 06/20/18 07:31 Carbon Dioxide 24 mmol/L (22-30) D 06/20/18 07:31 Anion Gap 17 mmol/L 06/20/18 07:31 BUN 20 mg/dL (7-17) H 06/20/18 07:31 Creatinine 1.1 mg/dL (0.7-1.2) 06/20/18 07:31 Estimated GFR 60 ml/min 06/20/18 07:31 BUN/Creatinine Ratio 18 % 06/20/18 07:31 Glucose 81 mg/dL (65-100) 06/20/18 07:31 POC Glucose 86 (70-105) 06/20/18 12:30 Hemoglobin A1c 5.5 % (4-6) 06/17/18 15:08 Osmolality 276 Mosm/kg 06/20/18 07:31 Lactic Acid 4.00 mmol/L (0.7-2.0) H* 06/17/18 15:08 Uric Acid 8.6 mg/dL (3.5-7.6) H 06/20/18 07:31 Calcium 8.5 mg/dL (8.4-10.2) 06/20/18 07:31 Phosphorus 2.50 mg/dL (2.5-4.5) 06/20/18 07:31 Magnesium 1.30 mg/dL (1.7-2.3) L 06/20/18 07:31 Total Bilirubin < 0.20 mg/dL (0.1-1.2) 06/17/18 11:00 Direct Bilirubin 1.6 mg/dL (0-0.2) H 06/17/18 11:00 Indirect Bilirubin -1.4 mg/dL 06/17/18 11:00 AST 66 units/L (5-40) H 06/17/18 11:00 ALT 33 units/L (7-56) 06/17/18 11:00 Alkaline Phosphatase 178 units/L (35-129) H 06/17/18 11:00 Ammonia 10.0 umol/L (25-60) L 06/17/18 15:08 Troponin T < 0.010 ng/mL (0.00-0.029) 06/16/18 22:25 Total Protein 4.7 g/dL (6.3-8.2) L 06/17/18 11:00 Albumin 2.4 g/dL (3.9-5) L 06/17/18 11:00 Albumin/Globulin Ratio 1.0 % 06/17/18 11:00 TSH 1.770 mlU/mL (0.270-4.200) 06/17/18 23:00 Free T4 1.53 ng/dL (0.76-1.46) H 06/17/18 23:00 Urine Color Caryl (Yellow) 06/16/18 Unknown Urine Turbidity Clear (Clear) 06/16/18 Unknown Urine pH 5.0 (5.0-7.0) 06/16/18 Unknown Ur Specific [place] 1.025 (1.003-1.030) 06/16/18 Unknown Urine Protein 100 mg/dl mg/dL (Negative) 06/16/18 Unknown Urine Glucose (UA) 50 mg/dL (Negative) 06/16/18 Unknown Urine Ketones Neg mg/dL (Negative) 06/16/18 Unknown Urine Blood Neg (Negative) 06/16/18 Unknown Urine Nitrite Neg (Negative) 06/16/18 Unknown Urine Bilirubin Neg (Negative) 06/16/18 Unknown Urine Urobilinogen 4.0 mg/dL (<2.0) 06/16/18 Unknown Ur Leukocyte Esterase Neg (Negative) 06/16/18 Unknown Urine WBC (Auto) 4.0 /HPF (0.0-6.0) 06/16/18 Unknown Urine RBC (Auto) 5.0 /HPF (0.0-6.0) 06/16/18 Unknown U Epithel Cells (Auto) 7.0 /HPF (0-13.0) 06/16/18 Unknown Hyaline Casts 49 /LPF 06/16/18 Unknown Urine Mucus Few /HPF 06/16/18 Unknown Urine Osmolality 413 Mosm/kg 06/19/18 Unknown Urine Creatinine 61.7 mg/dL (0.1-20.0) H 06/19/18 Unknown Urine Total Protein 32 mg/dL (5-11.8) H 06/19/18 Unknown Salicylates 5.5 mg/dL (2.8-20.0) 06/16/18 21:43 Urine Opiates Screen Presumptive negative 06/16/18 Unknown Urine Methadone Screen Presumptive negative 06/16/18 Unknown Acetaminophen < 5.0 ug/mL (10.0-30.0) L 06/16/18 21:43 Ur Barbiturates Screen Presumptive negative 06/16/18 Unknown Ur Phencyclidine Scrn Presumptive negative 06/16/18 Unknown Ur Amphetamines Screen Presumptive negative 06/16/18 Unknown U Benzodiazepines Scrn Presumptive negative 06/16/18 Unknown Urine Cocaine Screen Presumptive negative 06/16/18 Unknown U Marijuana (THC) Screen Presumptive negative 06/16/18 Unknown Drugs of Abuse Note Disclamer 06/16/18 Unknown Plasma/Serum Alcohol < 0.01 % (0-0.07) 06/16/18 21:43 Active Medications - Current Medications Current Medications: Generic Name Dose Route Start Last Admin Trade Name Freq PRN Reason Stop Dose Admin Acetaminophen 650 mg 06/17/18 03:33 06/19/18 01:27 Tylenol PO 650 mg Q4H PRN Administration Fever >101 Atorvastatin Calcium 20 mg 06/19/18 22:00 06/19/18 22:41 Lipitor PO 20 mg QHS JEANETTE Administration Furosemide 20 mg 06/19/18 18:00 06/20/18 05:35 Lasix IV 20 mg 0600,1800 JEANETTE Administration Heparin Sodium (Porcine) 5,000 unit 06/19/18 22:00 06/20/18 05:35 Heparin SUB-Q 5,000 unit Q8HR JEANETTE Administration Levofloxacin/Dextrose 750 mg in 150 mls @ 100 mls/hr 06/17/18 22:00 06/19/18 22:41 Levaquin 750mg/150ml IV 100 mls/hr Q24HR@2200 JEANETTE Administration Protocol Milrinone Lactate/Dextrose 20 mg in 100 mls @ 8.865 mls/hr 06/20/18 12:00 Milrinone-D5w 20 Mg/100 Ml IV 06/23/18 11:59 TITR JEANETTE 0.375 MCG/KG/MIN Metoprolol Tartrate 2.5 mg 06/17/18 18:00 06/20/18 06:34 Lopressor IV 2.5 mg Q6HR JEANETTE Administration Ondansetron HCl 4 mg 06/17/18 03:24 Zofran IV Q8H PRN Nausea And Vomiting
--- NOTE | 2018-06-20 15:53 | Progress Note ---
Assessment and Plan - Patient Problems (1) Hyponatremia with decreased serum osmolality Current Visit: Yes Status: Acute Plan to address problem: Likely in the setting of fluid overload. Response noted with diuretic regimen. Would hold off on Tolvaptan at this time given her quick response of sodium from 122 to 132 meq/L over last 24 hours. We will continue to monitor closely. It seems that her hyponatremia may also be chronic in nature as she has had similar low serum sodium levels in the past. We will continue to monitor on a daily basis. (2) Fluid overload Current Visit: Yes Status: Chronic Qualifiers: Hypervolemia type: other Qualified Code(s): E87.79 - Other fluid overload Plan to address problem: Agree with current regimen and diuretic management. Would recommend fluid restr ictions and appropriate low-sodium diet given her history of end-stage heart disease and cardiomyopathy. (3) Acute on chronic systolic heart failure Current Visit: No Status: Acute Plan to address problem: Follow up with further recommendations per cardiology. Will continue on current diuretic regimen along with appropriate fluid restrictions and low sodium diet. (4) Altered mental status Current Visit: Yes Status: Acute Plan to address problem: We'll continue to monitor closely. She seems to have slowly improved since her admission. (5) HTN (hypertension) Current Visit: No Status: Chronic Plan to address problem: Continue on current regimen and will monitor. Subjective Date of service: 06/20/18 Interval history: No acute events noted overnight. This is my first time seeing the patient and she is somewhat coherent with talking to me during the examination. She was able to tell me where she is, the date and her full name as well. She still incoherent in regards to the reasons for coming into the hospital initially. Labs noted and it seems that her serum sodium has improved to 132. She has been getting Lasix therapy while here as an inpatient. Urine electrolytes as well as urine and serum osmolality noted. Objective - Vital Signs Vital signs: Vital Signs - 12hr 06/20/18 06/20/18 06/20/18 04:10 09:43 12:29 Temperature 97.8 F 97.4 F L Pulse Rate 117 H 79 Respiratory 24 18 Rate Blood Pressure 135/88 140/98 125/90 O2 Sat by Pulse 99 Oximetry - General Appearance General appearance: chronically ill, frail EENT: ATNC, PERRL Neck: no thyromegaly Respiratory: Present: Clear to Ascultation Cardiology: regular, S1S2 Gastrointestinal: normal, normoactive bowel sounds Integumentary: warm and dry Neurologic: alert and oriented x3 Musculoskeletal: other (positive edema) Psychiatric: cooperative - Lab 06/19/18 14:47 06/20/18 07:31 Most recent lab results Calcium 8.5 mg/dL (8.4-10.2) 06/20/18 07:31 Phosphorus 2.50 mg/dL (2.5-4.5) 06/20/18 07:31 Magnesium 1.30 mg/dL (1.7-2.3) L 06/20/18 07:31 Urine Creatinine 61.7 mg/dL (0.1-20.0) H 06/19/18 Unknown Urine Total Protein 32 mg/dL (5-11.8) H 06/19/18 Unknown - Imaging Chest x-ray: report reviewed - Allied health notes Allied health notes reviewed: nursing Medications & Allergies - Medications Allergies/Adverse Reactions: Allergies Penicillins Allergy (Verified 09/04/17 14:11) Unknown aspirin Adverse Reaction (Verified 09/04/17 14:10) Nausea NSAIDS (Non-Steroidal Anti-Inflamma Adverse Reaction (Verified 09/04/17 14:10) Nausea Pork/Porcine Containing Products Adverse Reaction (Verified 11/01/17 09:04) Nausea Home Medications: Home Medications Medication Instructions Recorded Confirmed Last Taken Type Apixaban [Eliquis] 5 mg PO DAILY 09/06/17 10/31/17 Unknown History AtorvaSTATin [Lipitor] 20 mg PO DAILY 09/06/17 10/31/17 Unknown History Loperamide HCl [Loperamide] 2 mg PO DAILY 09/06/17 10/31/17 Unknown History Sertraline [Zoloft] 50 mg PO DAILY 09/06/17 10/31/17 10/17/17 10:00 History Sucralfate [Carafate] 1 gm PO DAILY 09/06/17 10/31/17 Unknown History Carvedilol [Coreg] 12.5 mg PO BID #60 tablet 09/08/17 10/31/17 Unknown Rx Lisinopril [Zestril TAB] 5 mg PO QDAY #30 tablet 09/08/17 10/31/17 Unknown Rx Doxycycline [Vibramycin CAP] 100 mg PO Q12HR #10 capsule 11/02/17 Unknown Rx Furosemide [Lasix] 20 mg PO QDAY #30 tablet 11/02/17 Unknown Rx Active Medications: Generic Name Dose Route Start Last Admin Trade Name Freq PRN Reason Stop Dose Admin Acetaminophen 650 mg 06/17/18 03:33 06/19/18 01:27 Tylenol PO 650 mg Q4H PRN Administration Fever >101 Apixaban 5 mg 06/20/18 16:00 Eliquis PO Q12HR JEANETTE Protocol Atorvastatin Calcium 20 mg 06/19/18 22:00 06/19/18 22:41 Lipitor PO 20 mg QHS JEANETTE Administration Furosemide 20 mg 06/19/18 18:00 06/20/18 05:35 Lasix IV 20 mg 0600,1800 JEANETTE Administration Levofloxacin/Dextrose 750 mg in 150 mls @ 100 mls/hr 06/17/18 22:00 06/19/18 22:41 Levaquin 750mg/150ml IV 100 mls/hr Q24HR@2200 JEANETTE Administration Protocol Milrinone Lactate/Dextrose 20 mg in 100 mls @ 8.865 mls/hr 06/20/18 12:00 Milrinone-D5w 20 Mg/100 Ml IV 06/23/18 11:59 TITR JEANETTE 0.375 MCG/KG/MIN Metoprolol Tartrate 2.5 mg 06/17/18 18:00 06/20/18 06:34 Lopressor IV 2.5 mg Q6HR JEANETTE Administration Ondansetron HCl 4 mg 06/17/18 03:24 Zofran IV Q8H PRN Nausea And Vomiting
--- NOTE | 2018-06-20 16:54 | Progress Note ---
Assessment and Plan Impression: 1. Altered mental status 2. History of hyperthyroidism Plan: 1. Will order HIV test, total T3, TPO/TGB antibodies (the latter ordered by Dr. Muir but not done) and other memory labs. 2. Will sign off, call if unusual results. Subjective Date of service: 06/20/18 Principal diagnosis: altered mental status Interval history: HPI: This 68-year-old right-handed -[place] female is seen again in follow-up for altered mental status. Sodium had been low on admission and apparently was as low as 122 yesterday but is today 132. Magnesium is 1.[address] Bowling has ordered replacement. I asked her about whether she been on thyroid medication which she acknowledges she had been on in the past and that it was to treat hyperthyroidism. She suggested calling Dr. Tucker, her PCP in [place], [place] about it. She seems to think her Eliquis is for her heart failure and doesn't seem to recognize the term atrial fibrillation. She says she was given shots in her hips to treat fluid retention and may even think these shots were Lasix which she takes she says orally. She mentions that she has memory problems particularly short-term memory which she thinks has only been for the past week. She says her toes are retaining fluid. She says she wasn't taking her meds correctly particularly Lasix, as the reason for her being admitted this time. Objective - Exam Narrative Exam: General appearance: well-developed but overweight (per BMI) late 60s - [place] female in NAD with some lip tremors. Neurologic Exam: Mental Status: AAO X 3 though initially gives the month is May before remembering that this is her month, speech is clear, names pen but not point or tip of pen, but gives comb and its teeth. Cranial Nerves: eli full, PERRLA, EOMs full without nystagmus or diplopia, downturned right corner of the mouth, hears finger rub bilaterally, shoulder shrug is 5 X 2, tongue protrudes slightly to the left. Cerebellar: finger to nose dysmetric left without tremor but intact on the right, [id number] is slightly dysmetric on the left. Motor Exam Upper Extremities: no drift or pronation, Diogenes are normal. Motor Exam Lower Extremities: no leg lag, IPs, and anterior tibials and gastrocnemius are 5 bilaterally. Quadriceps is 5 on the right but 4+ on the left. Diogenes are lower amplitude on the left. - Vital Sign Vital Signs - 12hr 06/20/18 06/20/18 09:43 12:29 Temperature 97.4 F L Pulse Rate 79 Respiratory 18 Rate Blood Pressure 140/98 125/90 - Laboratory Findings CBC and BMP: 06/19/18 14:47 06/20/18 07:31 Abnormal Lab Findings: Abnormal Labs 06/16/18 06/16/18 06/16/18 21:05 21:43 21:43 WBC RBC Hct MCV MCH RDW Seg Neutrophils % Sodium 129 L Potassium Chloride 95.3 L Carbon Dioxide 14 L BUN 23 H Glucose 146 H POC Glucose < 40 L Lactic Acid Uric Acid Calcium Magnesium Direct Bilirubin AST Alkaline Phosphatase Ammonia Total Protein Albumin Free T4 Urine Creatinine Urine Total Protein Acetaminophen < 5.0 L 06/16/18 06/16/18 06/16/18 21:43 21:43 22:27 WBC RBC 5.70 H Hct 44.6 H MCV 78 L MCH 25 L RDW 18.7 H Seg Neutrophils % 78.8 H Sodium Potassium Chloride Carbon Dioxide BUN Glucose POC Glucose 121 H Lactic Acid Uric Acid Calcium Magnesium Direct Bilirubin AST Alkaline Phosphatase Ammonia Total Protein Albumin Free T4 1.87 H Urine Creatinine Urine Total Protein Acetaminophen 06/16/18 06/16/18 06/17/18 22:33 23:43 03:56 WBC RBC Hct MCV MCH RDW Seg Neutrophils % Sodium Potassium Chloride Carbon Dioxide BUN Glucose POC Glucose Lactic Acid 4.40 H* 4.30 H* 3.10 H* Uric Acid Calcium Magnesium Direct Bilirubin AST Alkaline Phosphatase Ammonia Total Protein Albumin Free T4 Urine Creatinine Urine Total Protein Acetaminophen 06/17/18 06/17/18 06/17/18 08:35 08:40 11:00 WBC RBC Hct MCV MCH RDW Seg Neutrophils % Sodium Potassium Chloride Carbon Dioxide BUN Glucose POC Glucose 56 L Lactic Acid 2.70 H* 3.40 H* Uric Acid Calcium Magnesium Direct Bilirubin AST Alkaline Phosphatase Ammonia Total Protein Albumin Free T4 Urine Creatinine Urine Total Protein Acetaminophen 06/17/18 06/17/18 06/17/18 11:00 11:00 11:00 WBC 11.9 H RBC 5.25 H Hct MCV MCH 25 L RDW 18.6 H Seg Neutrophils % Sodium 128 L Potassium Chloride 95.6 L Carbon Dioxide 15 L BUN 22 H Glucose 110 H POC Glucose Lactic Acid Uric Acid Calcium 8.3 L Magnesium Direct Bilirubin 1.6 H AST 66 H Alkaline Phosphatase 178 H Ammonia Total Protein 4.7 L Albumin 2.4 L Free T4 Urine Creatinine Urine Total Protein Acetaminophen 06/17/18 06/17/18 06/17/18 15:08 15:08 23:00 WBC RBC Hct MCV MCH RDW Seg Neutrophils % Sodium Potassium Chloride Carbon Dioxide BUN Glucose POC Glucose Lactic Acid 4.00 H* Uric Acid Calcium Magnesium Direct Bilirubin AST Alkaline Phosphatase Ammonia 10.0 L Total Protein Albumin Free T4 1.53 H Urine Creatinine Urine Total Protein Acetaminophen 06/18/18 06/18/18 06/18/18 08:59 08:59 12:49 WBC RBC 5.29 H Hct MCV 78 L MCH 25 L RDW 18.4 H Seg Neutrophils % Sodium 128 L Potassium 5.9 H D Chloride 96.1 L Carbon Dioxide 20 L BUN 22 H Glucose POC Glucose 60 L Lactic Acid Uric Acid Calcium Magnesium Direct Bilirubin AST Alkaline Phosphatase Ammonia Total Protein Albumin Free T4 Urine Creatinine Urine Total Protein Acetaminophen 06/18/18 06/19/18 06/19/18 21:28 12:14 13:23 WBC RBC Hct MCV MCH RDW Seg Neutrophils % Sodium 122 L Potassium 5.4 H Chloride 95.0 L Carbon Dioxide 13 L D BUN 21 H Glucose 119 H POC Glucose 114 H Lactic Acid Uric Acid Calcium 8.3 L Magnesium Direct Bilirubin AST Alkaline Phosphatase Ammonia Total Protein Albumin Free T4 Urine Creatinine Urine Total Protein Acetaminophen 06/19/18 06/19/18 06/19/18 14:47 16:38 22:42 WBC RBC 5.51 H Hct 45.3 H MCV MCH 25 L RDW 18.6 H Seg Neutrophils % Sodium Potassium Chloride Carbon Dioxide BUN Glucose POC Glucose 108 H 49 L Lactic Acid Uric Acid Calcium Magnesium Direct Bilirubin AST Alkaline Phosphatase Ammonia Total Protein Albumin Free T4 Urine Creatinine Urine Total Protein Acetaminophen 06/19/18 06/20/18 Unknown 07:31 WBC RBC Hct MCV MCH RDW Seg Neutrophils % Sodium 132 L D Potassium Chloride 94.3 L Carbon Dioxide BUN 20 H Glucose POC Glucose Lactic Acid Uric Acid 8.6 H Calcium Magnesium 1.30 L Direct Bilirubin AST Alkaline Phosphatase Ammonia Total Protein Albumin Free T4 Urine Creatinine 61.7 H Urine Total Protein 32 H Acetaminophen
[2018-06-20] MEDS: ELIQUIS PO SCH ×2 (18:50→23:00)
[2018-06-20] MEDS: LEVAQUIN 750MG/150ML 750 MG/150 ML BAG IV SCH (23:00)
[2018-06-21] MEDS: LOPRESSOR IV SCH ×4 (06:33→23:39)
[2018-06-21] MEDS: LASIX IV SCH ×2 (06:33→17:45)
[2018-06-21] MEDS: ELIQUIS PO SCH ×2 (09:12→22:33)
[2018-06-21] MEDS: MILRINONE-D5W 20 MG/100 ML 20 MG/100 ML BAG IV SCH (09:13)
--- NOTE | 2018-06-21 09:27 | Progress Note ---
Assessment and Plan - Patient Problems (1) Hyponatremia with decreased serum osmolality Current Visit: Yes Status: Acute Plan to address problem: Likely in the setting of fluid overload. Response noted with diuretic regimen. Would hold off on Tolvaptan at this time given her quick response of sodium from 122 to 132 meq/L over last 24 hours. We will continue to monitor closely. It seems that her hyponatremia may also be chronic in nature as she has had similar low serum sodium levels in the past. We will continue to monitor on a daily basis. Pending labs this morning. (2) Fluid overload Current Visit: Yes Status: Chronic Qualifiers: Hypervolemia type: other Qualified Code(s): E87.79 - Other fluid overload Plan to address problem: Agree with current regimen and diuretic management. Would recommend fluid restrictions and appropriate low-sodium diet given her history of end-stage h eart disease and cardiomyopathy. (3) Acute on chronic systolic heart failure Current Visit: No Status: Acute Plan to address problem: Follow up with further recommendations per cardiology. Will continue on current diuretic regimen along with appropriate fluid restrictions and low sodium diet. (4) Altered mental status Current Visit: Yes Status: Acute Plan to address problem: We'll continue to monitor closely. She seems to have slowly improved since her admission. (5) HTN (hypertension) Current Visit: No Status: Chronic Plan to address problem: Continue on current regimen and will monitor. Patient is being started back on milrinone at this time Subjective Date of service: 06/21/18 Principal diagnosis: altered mental status Interval history: Patient seen and does not have any acute complaints. She is being restarted on milrinone at this time. She continues on IV diuretics with Lasix 20 mg IV twice a day. Renal function overall is stable. Her serum sodium has responded to appropriate diuretic management. Pending laboratory studies for today. Objective - Vital Signs Vital signs: Vital Signs - 12hr 06/20/18 06/20/18 06/21/18 23:33 23:44 04:55 Temperature 97.8 F 97.4 F L Pulse Rate 113 H 113 H 107 H Respiratory 20 20 Rate Blood Pressure 117/76 117/76 101/68 O2 Sat by Pulse 100 100 Oximetry 06/21/18 06:33 Temperature Pulse Rate 107 H Respiratory Rate Blood Pressure 101/68 O2 Sat by Pulse Oximetry - General Appearance General appearance: well-developed, well-nourished EENT: ATNC, PERRL Neck: no JVD, no thyromegaly Respiratory: Present: Clear to Ascultation Cardiology: regular, S1S2 Gastrointestinal: normal, normoactive bowel sounds Integumentary: no rash, warm and dry Neurologic: no focal deficit Musculoskeletal: other (+ edema) Psychiatric: cooperative - Lab 06/19/18 14:47 06/20/18 07:31 Most recent lab results Calcium 8.5 mg/dL (8.4-10.2) 06/20/18 07:31 Phosphorus 2.50 mg/dL (2.5-4.5) 06/20/18 07:31 Magnesium 1.30 mg/dL (1.7-2.3) L 06/20/18 07:31 Urine Creatinine 61.7 mg/dL (0.1-20.0) H 06/19/18 Unknown Urine Total Protein 32 mg/dL (5-11.8) H 06/19/18 Unknown - Allied health notes Allied health notes reviewed: nursing Medications & Allergies - Medications Allergies/Adverse Reactions: Allergies Penicillins Allergy (Verified 09/04/17 14:11) Unknown aspirin Adverse Reaction (Verified 09/04/17 14:10) Nausea NSAIDS (Non-Steroidal Anti-Inflamma Adverse Reaction (Verified 09/04/17 14:10) Nausea Pork/Porcine Containing Products Adverse Reaction (Verified 11/01/17 09:04) Nausea Home Medications: Home Medications Medication Instructions Recorded Confirmed Last Taken Type Apixaban [Eliquis] 5 mg PO DAILY 09/06/17 10/31/17 Unknown History AtorvaSTATin [Lipitor] 20 mg PO DAILY 09/06/17 10/31/17 Unknown History Loperamide HCl [Loperamide] 2 mg PO DAILY 09/06/17 10/31/17 Unknown History Sertraline [Zoloft] 50 mg PO DAILY 09/06/17 10/31/17 10/17/17 10:00 History Sucralfate [Carafate] 1 gm PO DAILY 09/06/17 10/31/17 Unknown History Carvedilol [Coreg] 12.5 mg PO BID #60 tablet 09/08/17 10/31/17 Unknown Rx Lisinopril [Zestril TAB] 5 mg PO QDAY #30 tablet 09/08/17 10/31/17 Unknown Rx Doxycycline [Vibramycin CAP] 100 mg PO Q12HR #10 capsule 11/02/17 Unknown Rx Furosemide [Lasix] 20 mg PO QDAY #30 tablet 11/02/17 Unknown Rx Active Medications: Generic Name Dose Route Start Last Admin Trade Name Freq PRN Reason Stop Dose Admin Acetaminophen 650 mg 06/17/18 03:33 06/19/18 01:27 Tylenol PO 650 mg Q4H PRN Administration Fever >101 Apixaban 5 mg 06/20/18 16:00 06/20/18 23:00 Eliquis PO 5 mg Q12HR JEANETTE Administration Protocol Atorvastatin Calcium 20 mg 06/19/18 22:00 06/20/18 23:18 Lipitor PO 20 mg QHS JEANETTE Administration Furosemide 20 mg 06/19/18 18:00 06/21/18 06:33 Lasix IV 20 mg 0600,1800 JEANETTE Administration Levofloxacin/Dextrose 750 mg in 150 mls @ 100 mls/hr 06/17/18 22:00 06/20/18 23:00 Levaquin 750mg/150ml IV 100 mls/hr Q24HR@2200 JEANETTE Administration Protocol Milrinone Lactate/Dextrose 20 mg in 100 mls @ 8.865 mls/hr 06/20/18 12:00 Milrinone-D5w 20 Mg/100 Ml IV 06/23/18 11:59 TITR JEANETTE 0.375 MCG/KG/MIN Metoprolol Tartrate 2.5 mg 06/17/18 18:00 06/21/18 06:33 Lopressor IV Not Given Q6HR JEANETTE Ondansetron HCl 4 mg 06/17/18 03:24 Zofran IV Q8H PRN Nausea And Vomiting
--- NOTE | 2018-06-21 10:48 | Progress Note ---
Assessment and Plan Chronic systolic heart failure Permanent atrial fibrillation/flutter Severe depression Altered mental status Recently discharged from [facility] to home hospice care Non-ischemic cardiomyopathy Lactic acidosis Hyponatremia - chronic Elevated bilirubin and alk phosphatase - chronic secondary to congestive hepatopathy Non-compliance with medical therapy and outpatient cardiac follow up. Echo 04/2018 at [facility] showed: a 4 chamber dilated cardiomyopathy, LVEF severely decreased, 20-25%. Moderate mitral regurgitation. Severe TR. RVSP is severely elevated. Recommendations: Aggressive medical therapy for heart failure management including a trial of intravenous milrinone. We will transition or oral beta blockers for rate control of permanent atrial fibrillation. Subjective Date of service: 06/21/18 Principal diagnosis: altered mental status Interval history: Patient awake and alert with reported periods of confusion. Objective Vital Signs Temp Pulse Resp BP Pulse Ox 06/21/18 06:33 107 H 101/68 06/21/18 04:55 97.4 F L 107 H 20 101/68 100 06/20/18 23:44 113 H 117/76 06/20/18 23:33 97.8 F 113 H 20 117/76 100 06/20/18 20:41 97.4 F L 20 125/82 85 06/20/18 19:00 115 H 06/20/18 18:44 118 H 128/93 06/20/18 12:29 97.4 F L 18 125/90 - Physical Examination General: No Apparent Distress HEENT: Positive: PERRL Neck: Positive: trachea midline Cardiac: Positive: irregularly irregular Lungs: Positive: Decreased Breath Sounds Neuro: Positive: Grossly Intact Extremities: Present: +1 Edema - Allied health notes Allied health notes reviewed: nursing
--- NOTE | 2018-06-21 12:12 | Progress Note ---
Subjective - Reason for Consult Consult date: 06/21/18 Reason for consult: Psychiatry Follow-up - Chief Complaint Chief complaint: "Hello" 68-year-old female who presented to the ED with altered mental status. Today the patient is calm and cooperative during the assessment. upon my arrival the patient sitting in the chair eating her breakfast. She was only able to recall 1/3 numbers within 5 mins. She did advise me the provider to contact her nephew Dandy Burdick at [phone] for information about her. Per collateral information from her nephew, he stated that this was the first time the patient experienced bizarre behavior. He denies that this her baseline, he stated, 'My aunt is a well put together woman." He stated that she plan to move with family out of town so she can have support. He stated that his aunt reside alone at this time. He denies any previous attempts of self harm by the patient. The patient denies SI/HI's and AVH's. She have not refused any treatment at this time. She denies that something or someone is after her. She did state that she took Zoloft in the past for depression. She stated that her PCP manage all her medications. Mental Status Exam - Vital signs Last Vital Signs Temp 97.4 F L 06/21/18 04:55 Pulse 107 H 06/21/18 06:33 Resp 20 06/21/18 04:55 BP 101/68 06/21/18 06:33 Pulse Ox 100 06/21/18 04:55 - Exam Narrative exam: MSE: Appearance: calm, cooperative Behavior: regular eye contact Speech: regular rate and loud tone Mood: "okay" Affect: congruent to mood Thought Process: circumstantial Thought Content: denies SI/HI's and AVH's Motor Activity: sitting up in the bed Cognition: A/O x2, with some confusion. Insight: variable to fair Judgment: fair Assessment and Plan Impression: Delirium. Today the patient is calm and cooperative during the assessment. MA 132. Elevated LF's 06/17/2018. Recommendation/Plan: The patient isn't on a 1013. Continue to assess the patient's mental status daily. Hold Zoloft until the patient's NA is WNL. Recommend Delirium precautions below: 1. Frequently reorient patient and involve him/her in their care (simple explanations of procedures, tests, medications). 2. Lights on and shades open during daytime hours. 3. Write date and goals of care in a visible place. 4. Try to avoid unnecessary interruptions to sleep during nighttime hours. 5. Obtain glasses, hearing aids from home if patient uses these at baseline. 6. Avoid medications that may exacerbate delirium (especially narcotics, benzodiazepines, barbiturates, ambien, lunesta, and medications with excessive anticholinergic properties). 7. Continue 1:1 sitter for safety. Dispo: The patient plan to move with family out of state once discharged per her nephew Dandy Burdick. Staffed with Dr Donna Rey.
[2018-06-21 16:48] LABS: Hematocrit 40.2 % (30.3-42.9); Hemoglobin 13.5 gm/dl (10.1-14.3); Mean Corpuscular HGB Conc 34 % (30-34); Mean Corpuscular Volume 77 fl (79-97); Platelet Count 267 K/mm3 (140-440); Red Blood Count 5.26 M/mm3 (3.65-5.03); Red Cell Distribution Width 17.7 % (13.2-15.2)
--- NOTE | 2018-06-21 17:10 | Progress Note ---
Assessment and Plan Assessment and plan: Patient is 68 yo woman with a history of hypertension, CHF and Atrial fibrillation who presented with altered mental status. She was climbing a fence, running wild; therefore, brought to ED. No previous psych history. CT neg. She was sedated in ED, and admitted. MRI Brain unremarkable. Patient evaluated by Neuro. /Altered mental status, with acute encephalopathy: psych and Neurology are following /Psychosis: Psych following, on 101 /Permanent Atrial fib/flutter: Eliquis resumed /chronic systolic CHF of EF 20-25%, patient has been on hospice before, it appears she was discharged from hospice. /Hyponatremiam, due to CHF, na 130 today improved from 122: Nephrology following /Elevated LFT, Likely congestive hepatopathy,monitor as needed Dr. Bowling spoke with Radiology regarding Abnormal CT head with Air in cavernous sinus vessels and soft tissue tissue. MRI Brain did not show any of this. I went down to Radiology, looked at films with Dr. Payne and he says it may be just air given with iv meds but recommends repeat CT head with and without contrast. Full code status History Interval history: Patient was seen and examined. Follow-up on current diagnosis AMS. Overnight uneventful. Patient is confused. Imaging, nursing note, chart, labs and old chart reviewed. Discussed with patient. Hospitalist Physical - Physical exam Narrative exam: GEN: WDWN, NAD, Awake, Alert, confused HEENT: NCAT, EOMI, PERRL, OP Clear NECK: supple, no adenopathy, no thyromegaly, no JVD CVS/HEART: irregular, normal S1S2, pulses present bilaterally CHEST/LUNGS: CTA B, Symmetrical chest expansion, good air entry bilaterally GI/Abdomen: soft, NTND, good bowel sounds, no guarding or rebound /Bladder: no suprapubic tenderness, no CVA or paraspinal tenderness EXT/Skin: no c/c/e, no obvious rash MSK: FROM x 4 Neuro: CN 2-12 grossly intact, not following commands Psych: calm - Constitutional Vitals: Temp Pulse Resp BP Pulse Ox 98 F 99 H 18 127/70 100 06/21/18 12:15 06/21/18 12:56 06/21/18 12:15 06/21/18 12:15 06/21/18 12:15 General appearance: Present: no acute distress Results - Labs CBC & Chem 7: 06/21/18 16:27 06/21/18 16:27 Labs: Laboratory Last Values WBC 7.3 K/mm3 (4.5-11.0) 06/21/18 16:27 RBC 5.26 M/mm3 (3.65-5.03) H 06/21/18 16:27 Hgb 13.5 gm/dl (10.1-14.3) 06/21/18 16:27 Hct 40.2 % (30.3-42.9) 06/21/18 16:27 MCV 77 fl (79-97) L 06/21/18 16:27 MCH 26 pg (28-32) L 06/21/18 16:27 MCHC 34 % (30-34) 06/21/18 16:27 RDW 17.7 % (13.2-15.2) H 06/21/18 16:27 Plt Count 267 K/mm3 (140-440) 06/21/18 16:27 Lymph % (Auto) 13.8 % (13.4-35.0) 06/16/18 21:43 [place] % (Auto) 7.3 % (0.0-7.3) 06/16/18 21:43 Eos % (Auto) 0.1 % (0.0-4.3) 06/16/18 21:43 Baso % (Auto) 0.0 % (0.0-1.8) 06/16/18 21:43 Lymph # 1.2 K/mm3 (1.2-5.4) 06/16/18 21:43 [place] # 0.6 K/mm3 (0.0-0.8) 06/16/18 21:43 Eos # 0.0 K/mm3 (0.0-0.4) 06/16/18 21:43 Baso # 0.0 K/mm3 (0.0-0.1) 06/16/18 21:43 Seg Neutrophils % 78.8 % (40.0-70.0) H 06/16/18 21:43 Seg Neutrophils # 6.8 K/mm3 (1.8-7.7) 06/16/18 21:43 Sodium 130 mmol/L (137-145) L 06/21/18 16:27 Potassium 3.7 mmol/L (3.6-5.0) 06/21/18 16:27 Chloride 95.6 mmol/L (98-107) L 06/21/18 16:27 Carbon Dioxide 22 mmol/L (22-30) 06/21/18 16:27 Anion Gap 16 mmol/L 06/21/18 16:27 BUN 24 mg/dL (7-17) H 06/21/18 16:27 Creatinine 1.1 mg/dL (0.7-1.2) 06/21/18 16:27 Estimated GFR 60 ml/min 06/21/18 16:27 BUN/Creatinine Ratio 22 % 06/21/18 16:27 Glucose 92 mg/dL (65-100) 06/21/18 16:27 POC Glucose 89 (70-105) 06/21/18 11:56 Hemoglobin A1c 5.5 % (4-6) 06/17/18 15:08 Osmolality 276 Mosm/kg 06/20/18 07:31 Lactic Acid 4.00 mmol/L (0.7-2.0) H* 06/17/18 15:08 Uric Acid 9.2 mg/dL (3.5-7.6) H 06/21/18 16:27 Calcium 9.0 mg/dL (8.4-10.2) 06/21/18 16:27 Phosphorus 2.50 mg/dL (2.5-4.5) 06/20/18 07:31 Magnesium 1.70 mg/dL (1.7-2.3) 06/21/18 16:27 Total Bilirubin < 0.20 mg/dL (0.1-1.2) 06/17/18 11:00 Direct Bilirubin 1.6 mg/dL (0-0.2) H 06/17/18 11:00 Indirect Bilirubin -1.4 mg/dL 06/17/18 11:00 AST 66 units/L (5-40) H 06/17/18 11:00 ALT 33 units/L (7-56) 06/17/18 11:00 Alkaline Phosphatase 178 units/L (35-129) H 06/17/18 11:00 Ammonia 10.0 umol/L (25-60) L 06/17/18 15:08 Troponin T < 0.010 ng/mL (0.00-0.029) 06/16/18 22:25 Total Protein 4.7 g/dL (6.3-8.2) L 06/17/18 11:00 Albumin 2.4 g/dL (3.9-5) L 06/17/18 11:00 Albumin/Globulin Ratio 1.0 % 06/17/18 11:00 Vitamin B12 1598 pg/mL (211-911) H 06/20/18 20:53 Folate 14.18 ng/mL (7.3-26.0) 06/20/18 20:53 TSH 1.770 mlU/mL (0.270-4.200) 06/17/18 23:00 Free T4 1.53 ng/dL (0.76-1.46) H 06/17/18 23:00 Urine Color Caryl (Yellow) 06/16/18 Unknown Urine Turbidity Clear (Clear) 06/16/18 Unknown Urine pH 5.0 (5.0-7.0) 06/16/18 Unknown Ur Specific [place] 1.025 (1.003-1.030) 06/16/18 Unknown Urine Protein 100 mg/dl mg/dL (Negative) 06/16/18 Unknown Urine Glucose (UA) 50 mg/dL (Negative) 06/16/18 Unknown Urine Ketones Neg mg/dL (Negative) 06/16/18 Unknown Urine Blood Neg (Negative) 06/16/18 Unknown Urine Nitrite Neg (Negative) 06/16/18 Unknown Urine Bilirubin Neg (Negative) 06/16/18 Unknown Urine Urobilinogen 4.0 mg/dL (<2.0) 06/16/18 Unknown Ur Leukocyte Esterase Neg (Negative) 06/16/18 Unknown Urine WBC (Auto) 4.0 /HPF (0.0-6.0) 06/16/18 Unknown Urine RBC (Auto) 5.0 /HPF (0.0-6.0) 06/16/18 Unknown U Epithel Cells (Auto) 7.0 /HPF (0-13.0) 06/16/18 Unknown Hyaline Casts 49 /LPF 06/16/18 Unknown Urine Mucus Few /HPF 06/16/18 Unknown Urine Osmolality 413 Mosm/kg 06/19/18 Unknown Urine Creatinine 61.7 mg/dL (0.1-20.0) H 06/19/18 Unknown Urine Total Protein 32 mg/dL (5-11.8) H 06/19/18 Unknown Salicylates 5.5 mg/dL (2.8-20.0) 06/16/18 21:43 Urine Opiates Screen Presumptive negative 06/16/18 Unknown Urine Methadone Screen Presumptive negative 06/16/18 Unknown Acetaminophen < 5.0 ug/mL (10.0-30.0) L 06/16/18 21:43 Ur Barbiturates Screen Presumptive negative 06/16/18 Unknown Ur Phencyclidine Scrn Presumptive negative 06/16/18 Unknown Ur Amphetamines Screen Presumptive negative 06/16/18 Unknown U Benzodiazepines Scrn Presumptive negative 06/16/18 Unknown Urine Cocaine Screen Presumptive negative 06/16/18 Unknown U Marijuana (THC) Screen Presumptive negative 06/16/18 Unknown Drugs of Abuse Note Disclamer 06/16/18 Unknown Plasma/Serum Alcohol < 0.01 % (0-0.07) 06/16/18 21:43 Active Medications - Current Medications Current Medications: Generic Name Dose Route Start Last Admin Trade Name Freq PRN Reason Stop Dose Admin Acetaminophen 650 mg 06/17/18 03:33 06/19/18 01:27 Tylenol PO 650 mg Q4H PRN Administration Fever >101 Apixaban 5 mg 06/20/18 16:00 06/21/18 09:12 Eliquis PO 5 mg Q12HR JEANETTE Administration Protocol Atorvastatin Calcium 20 mg 06/19/18 22:00 06/20/18 23:18 Lipitor PO 20 mg QHS JEANETTE Administration Furosemide 20 mg 06/19/18 18:00 06/21/18 06:33 Lasix IV 20 mg 0600,1800 JEANETTE Administration Levofloxacin/Dextrose 750 mg in 150 mls @ 100 mls/hr 06/17/18 22:00 06/20/18 23:00 Levaquin 750mg/150ml IV 100 mls/hr Q24HR@2200 JEANETTE Administration Protocol Milrinone Lactate/Dextrose 20 mg in 100 mls @ 8.865 mls/hr 06/20/18 12:00 06/21/18 09:13 Milrinone-D5w 20 Mg/100 Ml IV 06/23/18 11:59 0.375 mcg/kg/min TITR JEANETTE 8.865 mls/hr Administration 0.375 MCG/KG/MIN Metoprolol Tartrate 2.5 mg 06/17/18 18:00 06/21/18 12:56 Lopressor IV 2.5 mg Q6HR JEANETTE Administration Ondansetron HCl 4 mg 06/17/18 03:24 Zofran IV Q8H PRN Nausea And Vomiting
[2018-06-21] MEDS: LEVAQUIN 750MG/150ML 750 MG/150 ML BAG IV SCH (22:34)
[2018-06-22] MEDS: MILRINONE-D5W 20 MG/100 ML 20 MG/100 ML BAG IV SCH ×2 (04:22→15:55)
[2018-06-22] MEDS: LASIX IV SCH ×2 (06:50→18:58)
[2018-06-22] MEDS: LOPRESSOR IV SCH ×2 (06:50→15:31)
--- NOTE | 2018-06-22 10:20 | Progress Note ---
Assessment and Plan - Patient Problems (1) Hyponatremia with decreased serum osmolality Current Visit: Yes Status: Acute Plan to address problem: Likely in the setting of fluid overload. Response noted with diuretic regimen. Would hold off on Tolvaptan at this time given her quick response of sodium from 122 to 132 meq/L over last 24 hours. We will continue to monitor closely. It seems that her hyponatremia may also be chronic in nature as she has had similar low serum sodium levels in the past. We will continue to monitor on a daily basis. labs reviewed this morning. (2) Fluid overload Current Visit: Yes Status: Chronic Qualifiers: Hypervolemia type: other Qualified Code(s): E87.79 - Other fluid overload Plan to address problem: Agree with current regimen and diuretic management. Would recommend fluid restrictions and appropriate low-sodium diet given her history of end-stage h eart disease and cardiomyopathy. (3) Acute on chronic systolic heart failure Current Visit: No Status: Acute Plan to address problem: Follow up with further recommendations per cardiology. Will continue on current diuretic regimen along with appropriate fluid restrictions and low sodium diet. (4) Altered mental status Current Visit: Yes Status: Acute Plan to address problem: We'll continue to monitor closely. She is more agitated and anxious this morning, wanting to go home. (5) HTN (hypertension) Current Visit: No Status: Chronic Plan to address problem: Continue on current regimen and will monitor. Patient is being started back on milrinone at this time Subjective Date of service: 06/22/18 Principal diagnosis: altered mental status Interval history: Patient is a bit more agitated this morning and wants to go home. Sitter remains at bedside. Overall renal function is stable. Objective - Vital Signs Vital signs: Vital Signs - 12hr 06/21/18 06/21/18 06/22/18 23:39 23:49 05:59 Temperature 97.5 F L 97.5 F L Pulse Rate 126 H 117 H Respiratory 18 18 Rate Blood Pressure 122/64 120/61 Blood Pressure 115/67 [Left] O2 Sat by Pulse Oximetry 06/22/18 06/22/18 06/22/18 06:00 06:50 08:44 Temperature 97.5 F L 97.5 F L Pulse Rate 119 H 119 H 124 H Respiratory 18 18 Rate Blood Pressure 121/61 122/76 Blood Pressure 120/61 [Left] O2 Sat by Pulse 98 100 Oximetry - General Appearance General appearance: well-developed, appears stated age EENT: ATNC, PERRL Neck: no JVD, no thyromegaly Respiratory: Present: Clear to Ascultation Cardiology: regular, S1S2 Gastrointestinal: normal Integumentary: warm and dry Neurologic: confused Musculoskeletal: other (-edema ) Psychiatric: agitated - Lab 06/21/18 16:27 06/21/18 16:27 Most recent lab results Calcium 9.0 mg/dL (8.4-10.2) 06/21/18 16:27 Phosphorus 2.50 mg/dL (2.5-4.5) 06/20/18 07:31 Magnesium 1.70 mg/dL (1.7-2.3) 06/21/18 16:27 Urine Creatinine 61.7 mg/dL (0.1-20.0) H 06/19/18 Unknown Urine Total Protein 32 mg/dL (5-11.8) H 06/19/18 Unknown - Allied health notes Allied health notes reviewed: nursing Medications & Allergies - Medications Allergies/Adverse Reactions: Allergies Penicillins Allergy (Verified 09/04/17 14:11) Unknown aspirin Adverse Reaction (Verified 09/04/17 14:10) Nausea NSAIDS (Non-Steroidal Anti-Inflamma Adverse Reaction (Verified 09/04/17 14:10) Nausea Pork/Porcine Containing Products Adverse Reaction (Verified 11/01/17 09:04) Nausea Home Medications: Home Medications Medication Instructions Recorded Confirmed Last Taken Type Apixaban [Eliquis] 5 mg PO DAILY 09/06/17 10/31/17 Unknown History AtorvaSTATin [Lipitor] 20 mg PO DAILY 09/06/17 10/31/17 Unknown History Loperamide HCl [Loperamide] 2 mg PO DAILY 09/06/17 10/31/17 Unknown History Sertraline [Zoloft] 50 mg PO DAILY 09/06/17 10/31/17 10/17/17 10:00 History Sucralfate [Carafate] 1 gm PO DAILY 09/06/17 10/31/17 Unknown History Carvedilol [Coreg] 12.5 mg PO BID #60 tablet 09/08/17 10/31/17 Unknown Rx Lisinopril [Zestril TAB] 5 mg PO QDAY #30 tablet 09/08/17 10/31/17 Unknown Rx Doxycycline [Vibramycin CAP] 100 mg PO Q12HR #10 capsule 11/02/17 Unknown Rx Furosemide [Lasix] 20 mg PO QDAY #30 tablet 11/02/17 Unknown Rx Active Medications: Generic Name Dose Route Start Last Admin Trade Name Freq PRN Reason Stop Dose Admin Acetaminophen 650 mg 06/17/18 03:33 06/19/18 01:27 Tylenol PO 650 mg Q4H PRN Administration Fever >101 Apixaban 5 mg 06/20/18 16:00 06/21/18 22:33 Eliquis PO 5 mg Q12HR JEANETTE Administration Protocol Atorvastatin Calcium 20 mg 06/19/18 22:00 06/21/18 22:33 Lipitor PO 20 mg QHS JEANETTE Administration Furosemide 20 mg 06/19/18 18:00 06/22/18 06:50 Lasix IV 20 mg 0600,1800 JEANETTE Administration Levofloxacin/Dextrose 750 mg in 150 mls @ 100 mls/hr 06/17/18 22:00 06/21/18 22:34 Levaquin 750mg/150ml IV 100 mls/hr Q24HR@2200 JEANETTE Administration Protocol Milrinone Lactate/Dextrose 20 mg in 100 mls @ 8.865 mls/hr 06/20/18 12:00 06/22/18 04:22 Milrinone-D5w 20 Mg/100 Ml IV 06/23/18 11:59 0.375 mcg/kg/min TITR JEANETTE 8.865 mls/hr Administration 0.375 MCG/KG/MIN Metoprolol Tartrate 2.5 mg 06/17/18 18:00 06/22/18 06:50 Lopressor IV 2.5 mg Q6HR JEANETTE Administration Ondansetron HCl 4 mg 06/17/18 03:24 Zofran IV Q8H PRN Nausea And Vomiting Quetiapine Fumarate 50 mg 06/22/18 10:00 Seroquel PO BID JEANETTE
[2018-06-22] MEDS: ELIQUIS PO SCH ×3 (10:29→22:44)
--- NOTE | 2018-06-22 11:29 | Progress Note ---
Assessment and Plan Chronic systolic heart failure Permanent atrial fibrillation/flutter Severe depression Altered mental status Recently discharged from [facility] to home hospice care Non-ischemic cardiomyopathy Lactic acidosis Hyponatremia - chronic Elevated bilirubin and alk phosphatase - chronic secondary to congestive hepatopathy Non-compliance with medical therapy and outpatient cardiac follow up. Echo 04/2018 at [facility] showed: a 4 chamber dilated cardiomyopathy, LVEF severely decreased, 20-25%. Moderate mitral regurgitation. Severe TR. RVSP is severely elevated. Recommendations: Aggressive medical therapy for heart failure management including a trial of intravenous milrinone for an additional 24hrs. We will transition or oral beta blockers for rate control of permanent atrial fibrillation. Subjective Date of service: 06/22/18 Principal diagnosis: altered mental status Interval history: Patient awake with confusion and outbursts. Objective Vital Signs Temp Pulse Resp Resp BP BP Pulse Ox 06/22/18 08:44 97.5 F L 124 H 18 122/76 100 06/22/18 06:50 119 H 121/61 06/22/18 06:00 97.5 F L 119 H 18 120/61 98 06/22/18 05:59 97.5 F L 18 120/61 06/21/18 23:49 97.5 F L 117 H 18 115/67 06/21/18 23:39 126 H 122/64 06/21/18 22:00 20 06/21/18 21:22 97.7 F 122 H 20 116/64 100 06/21/18 19:00 119 H 06/21/18 17:45 99 H 06/21/18 17:31 97.2 F L 58 L 18 171/66 96 06/21/18 17:09 124 H 100 06/21/18 12:56 99 H 06/21/18 12:15 98 F 120 H 18 127/70 100 - Physical Examination General: No Apparent Distress HEENT: Positive: PERRL Neck: Positive: trachea midline Cardiac: Positive: irregularly irregular Neuro: Positive: Grossly Intact - Labs and Meds CBC 06/21/18 Range/Units 16:27 WBC 7.3 (4.5-11.0) K/mm3 RBC 5.26 H (3.65-5.03) M/mm3 Hgb 13.5 (10.1-14.3) gm/dl Hct 40.2 (30.3-42.9) % Plt Count 267 (140-440) K/mm3 Comprehensive Metabolic Panel 06/21/18 Range/Units 16:27 Sodium 130 L (137-145) mmol/L Potassium 3.7 (3.6-5.0) mmol/L Chloride 95.6 L (98-107) mmol/L Carbon Dioxide 22 (22-30) mmol/L BUN 24 H (7-17) mg/dL Creatinine 1.1 (0.7-1.2) mg/dL Glucose 92 (65-100) mg/dL Calcium 9.0 (8.4-10.2) mg/dL - Allied health notes Allied health notes reviewed: nursing
--- NOTE | 2018-06-22 12:37 | Progress Note ---
Subjective - Reason for Consult Consult date: 06/22/18 Reason for consult: Psychiatric Follow-up Evaluation - Chief Complaint Chief complaint: "I'm ready to go now." Patient is a 68-year-old female who presented to the ED with altered mental status. Today the patient is anxious and irritable during the assessment. She verbalizes that she is ready to discharge immediately. She reports appropriate sleep and appetite. Patient response to questions are not logical. Confusion is noted. Throughout the assessment patient is yelling and refusing to calm down. Provider is unable to redirect patient. The patient denies SI/HI's, AVH's, and delusions. Today patient was started on Seroquel. She denies SI/HI's, A/VH's, and delusions. Mental Status Exam - Vital signs Last Vital Signs Temp 98.4 F 06/22/18 12:21 Pulse 121 H 06/22/18 12:21 Resp 20 06/22/18 12:21 BP 129/80 06/22/18 12:21 Pulse Ox 100 06/22/18 08:44 - Exam Narrative exam: Mental Status Exam Appearance: anxious, cooperative Behavior: regular eye contact Speech: regular rate and loud tone Mood: irritable/labile; " I'm ready to discharge now" Affect: congruent to mood Thought Process: circumstantial, tangential Thought Content: denies SI/HI's, AVH's, delusions Motor Activity: sitting up in the bed Cognition: A/O x 2, with some confusion. Insight: variable to fair Judgment: fair Assessment and Plan Impression: Delirium. Today the patient is anxious and irritable during the assessment. NA 130 06/21/18. Elevated LF's 06/17/2018. Recommendation/Plan: The patient isn't on a 1013. Continue to assess the patient's mental status daily. Hold Zoloft until the patient's NA is WNL. Recommend Delirium precautions below: 1. Frequently reorient patient and involve him/her in their care (simple explanations of procedures, tests, medications). 2. Lights on and shades open during daytime hours. 3. Write date and goals of care in a visible place. 4. Try to avoid unnecessary interruptions to sleep during nighttime hours. 5. Obtain glasses, hearing aids from home if patient uses these at baseline. 6. Avoid medications that may exacerbate delirium (especially narcotics, benzodiazepines, barbiturates, ambien, lunesta, and medications with excessive anticholinergic properties). 7. Continue 1:1 sitter for safety. Disposition: The patient plan to move with family out of state once discharged per her nephew Dandy Burdick. Staffed with Dr. Pete Rey.
[2018-06-22] MEDS: LOPRESSOR PO SCH ×2 (15:51→22:44)
[2018-06-22] MEDS ORDERED: HALDOL IM ONE (16:16)
--- NOTE | 2018-06-22 16:54 | Progress Note ---
Assessment and Plan Patient is 68 yo woman with a history of hypertension, CHF and Atrial fibrillation who presented with altered mental status. She was climbing a fence, running wild; therefore, brought to ED. No previous psych history. CT neg. She was sedated in ED, and admitted. MRI Brain unremarkable. Patient evaluated by Neuro. /Altered mental status, with acute encephalopathy: psych and Neurology are following /Psychosis: Psych following, on 1013 /Permanent Atrial fib/flutter: On metoprolol Eliquis resumed /chronic systolic CHF of EF 20-25%, patient has been on hospice before, Continue her Lasix, beta puma, and ACEI, she is not allergic to it. Unable to get any history It appears she was discharged from hospice. /Hyponatremiam, due to CHF, na 130 today improved from 122: Nephrology following /Elevated LFT, Likely congestive hepatopathy, We will trend -Patient is to go for CT scan of the head with and without contrast. However she still very agitated and yelling. Not stable enough to be calm for a CT scan of the head DVT prophylaxis: Patient is on Eliquis Subjective Date of service: 06/22/18 Principal diagnosis: altered mental status, psychosis, chronic systolic heart failure, Interval history: Patient landed in bed. Vital aggressive, threatening to leave if she is not given based whaley Objective - Exam Narrative Exam: Constitutional: Agitated and yelling. Head: Normocephalic atraumatic Eyes: Pupils are equal round and reactive to light Nose: No enlarged turbinates, no septal deviation. Mouth: Moist mucous membranes. Neck: Supple no thyromegaly. No bruit. No JVD Heart: Regular rate and rhythm, S1-S2 normal. No rubs murmurs or gallop Lungs: Clear to auscultation bilaterally. no rales or rhonchi Abdomen: Soft, nontender. Bowel sound are present. Extremities: 2+ pitting pedal edema, no cyanosis, no clubbing. Neuro: Alert oriented Oriented x3. No focal sensory or motor deficit. Skin: No rashes or hyperpigmented spots Musculoskeletal system: No joint pain or swelling Hematological: No petechia or subcutanous hemorrhages. Immunological: No multiple septic spots on the skin Lymphatic: No generalized lymphadenopathy Psychiatry: Confused and ADL in demanding that the patient should be taking it with him brought what she wants - Constitutional Vitals: Vital Signs - 12hr 06/22/18 06/22/18 06/22/18 05:59 06:00 06:50 Temperature 97.5 F L 97.5 F L Pulse Rate 119 H 119 H Respiratory 18 18 Rate Respiratory Rate [Abdomen] Blood Pressure 120/61 121/61 Blood Pressure 120/61 [Left] O2 Sat by Pulse 98 Oximetry 06/22/18 06/22/18 06/22/18 07:00 08:44 10:00 Temperature 97.5 F L Pulse Rate 121 H 124 H Respiratory 18 Rate Respiratory 20 Rate [Abdomen] Blood Pressure 122/76 Blood Pressure [Left] O2 Sat by Pulse 100 Oximetry 06/22/18 06/22/18 12:19 12:21 Temperature 98.4 F 98.4 F Pulse Rate 121 H Respiratory 20 20 Rate Respiratory Rate [Abdomen] Blood Pressure 129/80 Blood Pressure 129/80 [Left] O2 Sat by Pulse Oximetry - Labs CBC & Chem 7: 06/21/18 16:27 06/21/18 16:27 Labs: Abnormal lab results 06/21/18 06/21/18 06/21/18 Range/Units 16:27 16:27 21:44 Sodium 130 L (137-145) mmol/L Chloride 95.6 L (98-107) mmol/L BUN 24 H (7-17) mg/dL POC Glucose 126 H (70-105) Uric Acid 9.2 H (3.5-7.6) mg/dL
[2018-06-22] MEDS: LEVAQUIN 750MG/150ML 750 MG/150 ML BAG IV SCH (22:44)
[2018-06-23] MEDS: MILRINONE-D5W 20 MG/100 ML 20 MG/100 ML BAG IV SCH (03:33)
[2018-06-23] MEDS: LASIX IV SCH ×2 (06:32→17:25)
[2018-06-23] MEDS: LOPRESSOR PO SCH ×3 (06:32→23:11)
[2018-06-23 08:32] LABS: Anti-TPO Antibodies SEE SCANNED RESULT; Thyroglobulin Antibodies SEE SCANNED RESULT
[2018-06-23] MEDS: ELIQUIS PO SCH ×2 (09:49→23:06)
[2018-06-23] MEDS: TYLENOL PO PRN (09:49)
--- NOTE | 2018-06-23 11:11 | Progress Note ---
Assessment and Plan - Patient Problems (1) Hyponatremia with decreased serum osmolality Current Visit: Yes Status: Acute Plan to address problem: Likely in the setting of fluid overload. Response noted with diuretic regimen. Would hold off on Tolvaptan at this time given her quick response of sodium from 122 to 132 meq/L over last 24 hours. We will continue to monitor closely. It seems that her hyponatremia may also be chronic in nature as she has had similar low serum sodium levels in the past. We will continue to monitor on a daily basis. labs reviewed this morning and serum sodium levels are stable. (2) Fluid overload Current Visit: Yes Status: Chronic Qualifiers: Hypervolemia type: other Qualified Code(s): E87.79 - Other fluid overload Plan to address problem: Agree with current regimen and diuretic management. Would recommend fluid restrictions and appropriate low-sodium diet given her history of end-stage heart disease and cardiomyopathy. (3) Acute on chronic systolic heart failure Current Visit: No Status: Acute Plan to address problem: Follow up with further recommendations per cardiology. Will continue on current diuretic regimen along with appropriate fluid restrictions and low sodium diet. (4) Altered mental status Current Visit: Yes Status: Acute Plan to address problem: We'll continue to monitor closely. Psychiatry evaluation noted. (5) HTN (hypertension) Current Visit: No Status: Chronic Plan to address problem: Continue on current regimen and will monitor. Subjective Date of service: 06/23/18 Principal diagnosis: altered mental status, psychosis, chronic systolic heart failure, Interval history: No acute changes, bit more calm this morning. Still remains confused/altered. Labs noted and renal function is stable, she has mild hyponatremia which i doubt is the reason for her altered mental status at present time. Objective - Vital Signs Vital signs: Vital Signs - 12hr 06/23/18 06/23/18 06/23/18 06:32 06:33 07:00 Temperature 97.6 F Pulse Rate 97 H 104 H 115 H Respiratory 20 Rate Blood Pressure 113/63 113/63 O2 Sat by Pulse 99 Oximetry - General Appearance General appearance: appears stated age, anxious EENT: ATNC, PERRL Neck: no JVD, no thyromegaly Respiratory: Present: Clear to Ascultation Cardiology: regular, S1S2 Gastrointestinal: normal, normoactive bowel sounds Integumentary: warm and dry Neurologic: no focal deficit, confused, disoriented Musculoskeletal: other (-edema ) Psychiatric: agitated - Lab 06/21/18 16:27 06/21/18 16:27 Most recent lab results Calcium 9.0 mg/dL (8.4-10.2) 06/21/18 16:27 Phosphorus 2.50 mg/dL (2.5-4.5) 06/20/18 07:31 Magnesium 1.70 mg/dL (1.7-2.3) 06/21/18 16:27 Urine Creatinine 61.7 mg/dL (0.1-20.0) H 06/19/18 Unknown Urine Total Protein 32 mg/dL (5-11.8) H 06/19/18 Unknown - Allied health notes Allied health notes reviewed: nursing Medications & Allergies - Medications Allergies/Adverse Reactions: Allergies Penicillins Allergy (Verified 09/04/17 14:11) Unknown aspirin Adverse Reaction (Verified 09/04/17 14:10) Nausea NSAIDS (Non-Steroidal Anti-Inflamma Adverse Reaction (Verified 09/04/17 14:10) Nausea Pork/Porcine Containing Products Adverse Reaction (Verified 11/01/17 09:04) Nausea Home Medications: Home Medications Medication Instructions Recorded Confirmed Last Taken Type Apixaban [Eliquis] 5 mg PO DAILY 09/06/17 10/31/17 Unknown History AtorvaSTATin [Lipitor] 20 mg PO DAILY 09/06/17 10/31/17 Unknown History Loperamide HCl [Loperamide] 2 mg PO DAILY 09/06/17 10/31/17 Unknown History Sertraline [Zoloft] 50 mg PO DAILY 09/06/17 10/31/17 10/17/17 10:00 History Sucralfate [Carafate] 1 gm PO DAILY 09/06/17 10/31/17 Unknown History Carvedilol [Coreg] 12.5 mg PO BID #60 tablet 09/08/17 10/31/17 Unknown Rx Lisinopril [Zestril TAB] 5 mg PO QDAY #30 tablet 09/08/17 10/31/17 Unknown Rx Doxycycline [Vibramycin CAP] 100 mg PO Q12HR #10 capsule 11/02/17 Unknown Rx Furosemide [Lasix] 20 mg PO QDAY #30 tablet 11/02/17 Unknown Rx Active Medications: Generic Name Dose Route Start Last Admin Trade Name Freq PRN Reason Stop Dose Admin Acetaminophen 650 mg 06/17/18 03:33 06/23/18 09:49 Tylenol PO 650 mg Q4H PRN Administration Fever >101 Apixaban 5 mg 06/20/18 16:00 06/23/18 09:49 Eliquis PO 5 mg Q12HR JEANETTE Administration Protocol Atorvastatin Calcium 20 mg 06/19/18 22:00 06/22/18 22:44 Lipitor PO 20 mg QHS JEANETTE Administration Furosemide 20 mg 06/19/18 18:00 06/23/18 06:32 Lasix IV 20 mg 0600,1800 JEANETTE Administration Levofloxacin/Dextrose 750 mg in 150 mls @ 100 mls/hr 06/17/18 22:00 06/22/18 22:44 Levaquin 750mg/150ml IV 100 mls/hr Q24HR@2200 JEANETTE Administration Protocol Milrinone Lactate/Dextrose 20 mg in 100 mls @ 8.865 mls/hr 06/20/18 12:00 06/23/18 03:33 Milrinone-D5w 20 Mg/100 Ml IV 06/23/18 11:59 0.375 mcg/kg/min TITR JEANETTE 8.865 mls/hr Administration 0.375 MCG/KG/MIN Metoprolol Tartrate 25 mg 06/22/18 14:00 06/23/18 06:32 Lopressor PO 25 mg Q8HR JEANETTE Administration Ondansetron HCl 4 mg 06/17/18 03:24 Zofran IV Q8H PRN Nausea And Vomiting Quetiapine Fumarate 50 mg 06/22/18 12:30 06/23/18 09:48 Seroquel PO 50 mg BID JEANETTE Administration
--- NOTE | 2018-06-23 11:35 | Progress Note ---
Assessment and Plan Chronic systolic heart failure Permanent atrial fibrillation/flutter Severe depression Altered mental status Recently discharged from [facility] to home hospice care Non-ischemic cardiomyopathy Lactic acidosis Hyponatremia - chronic Elevated bilirubin and alk phosphatase - chronic secondary to congestive hepatopathy Non-compliance with medical therapy and outpatient cardiac follow up. Echo 04/2018 at [facility] showed: a 4 chamber dilated cardiomyopathy, LVEF severely decreased, 20-25%. Moderate mitral regurgitation. Severe TR. RVSP is severely elevated. Recommendations: Continue beta blockers for optimal rate control of permanent atrial fibrillation. Subjective Date of service: 06/23/18 Principal diagnosis: altered mental status, psychosis, chronic systolic heart failure, Interval history: Patient is sitting up in bed and is calmer today. Sitter is at bedside. For completion of IV milrinone today. Objective Vital Signs Temp Pulse Resp BP BP Pulse Ox 06/23/18 07:00 115 H 06/23/18 06:33 97.6 F 104 H 20 113/63 99 06/23/18 06:32 97 H 113/63 06/22/18 22:49 97.3 F L 66 20 108/64 94 06/22/18 19:00 122 H 06/22/18 17:10 97.9 F 122 H 20 92/56 100 06/22/18 12:21 98.4 F 121 H 20 129/80 06/22/18 12:19 98.4 F 20 129/80 - Physical Examination General: No Apparent Distress HEENT: Positive: PERRL Neck: Positive: trachea midline Cardiac: Positive: irregularly irregular Neuro: Positive: Grossly Intact - Allied health notes Allied health notes reviewed: nursing
--- NOTE | 2018-06-23 13:06 | Progress Note ---
Subjective - Reason for Consult Consult date: 06/23/18 Reason for consult: Psychiatry Follow-up - Chief Complaint Chief complaint: "Hi" Patient is a 68-year-old female who presented to the ED with altered mental status. Today the patient is calm, but confused during the assessment. Her answers to questions were not logical. Per my observation, no agitation noted. She denies SI/HI's and AVH's. Mental Status Exam - Vital signs Last Vital Signs Temp 97.6 F 06/23/18 06:33 Pulse 115 H 06/23/18 07:00 Resp 20 06/23/18 06:33 BP 113/63 06/23/18 06:33 Pulse Ox 99 06/23/18 06:33 - Exam Narrative exam: MSE: Appearance: calm Behavior: regular eye contact Speech: regular rate and loud tone Mood: "okay" Affect: congruent to mood Thought Process: tangential Thought Content: denies SI/HI's and AVH's Motor Activity: sitting up in the bed Cognition: A/O x2, with some confusion Insight: limited to variable Judgment: variable Assessment and Plan Impression: Delirium. Today the patient is calm, but confused during the assessment. MA 130. Elevated LF's 06/17/2018. Recommendation/Plan: The patient isn't on a 1013. Recommend Haldol 2 mg IM Q6hrs PRN for acute agitation. Psy sign off and reconsult once the patient's NA normalize. Hold Zoloft until the patient's NA is WNL. Recommend Delirium precautions below: 1. Frequently reorient patient and involve him/her in their care (simple explanations of procedures, tests, medications). 2. Lights on and shades open during daytime hours. 3. Write date and goals of care in a visible place. 4. Try to avoid unnecessary interruptions to sleep during nighttime hours. 5. Obtain glasses, hearing aids from home if patient uses these at baseline. 6. Avoid medications that may exacerbate delirium (especially narcotics, benzodiazepines, barbiturates, ambien, lunesta, and medications with excessive anticholinergic properties). 7. Continue 1:1 sitter for safety. Dispo: The patient plan to move with family out of state once discharged per her nephew Dandy Burdick. Staffed with Dr Nash.
[2018-06-23 15:18] LABS: Basophils % (Auto) 0.2 % (0.0-1.8); Eosinophils # (Auto) 0.1 K/mm3 (0.0-0.4); Eosinophils % (Auto) 1.2 % (0.0-4.3); Hematocrit 39.5 % (30.3-42.9); Hemoglobin 12.6 gm/dl (10.1-14.3); Lymphocytes % (Auto) 21.1 % (13.4-35.0); Mean Corpuscular HGB Conc 32 % (30-34); Mean Corpuscular Volume 78 fl (79-97); Monocytes # (Auto) 0.6 K/mm3 (0.0-0.8); Monocytes % (Auto) 12.3 % (0.0-7.3); Platelet Count 231 K/mm3 (140-440); Red Blood Count 5.07 M/mm3 (3.65-5.03); Red Cell Distribution Width 18.5 % (13.2-15.2)
[2018-06-23 15:39] LABS: Alanine Aminotransferase 27 units/L (7-56); Albumin 2.8 g/dL (3.9-5); BUN/Creatinine Ratio 19; Blood Urea Nitrogen 19 mg/dL (7-17); Calcium 8.4 mg/dL (8.4-10.2); Hemolysis Index 25
--- NOTE | 2018-06-23 15:46 | Progress Note ---
Assessment and Plan Patient is 68 yo woman with a history of hypertension, CHF and Atrial fibrillation who presented with altered mental status. She was climbing a fence, running wild; therefore, brought to ED. No previous psych history. CT neg. She was sedated in ED, and admitted. MRI Brain unremarkable. Patient evaluated by Neuro. /Altered mental status, with acute encephalopathy: psych and Neurology are following /Psychosis: Psych following, rescinded 1013 /Permanent Atrial fib/flutter: On metoprolol Eliquis resumed /chronic systolic CHF of EF 20-25%, patient has been on hospice before, Continue her Lasix, beta puma, and ACEI, she is not allergic to it. Unable to get any history /Hyponatremiam, due to CHF, na 132 today improved from 122: Nephrology following /Elevated LFT, with elevated T. Bili Likely congestive hepatopathy, Will obtain RUQ US as this will be more tolerated than CT abdomen and pelvis in an agitated pt We will trend. willobtain GI consult if still trending up -Patient is to go for CT scan of the head with and without contrast. However she too agitated for CT head. Not stable enough to be calm for a CT scan of the head. Should review in next 1-2 DVT prophylaxis: Patient is on Eliquis Subjective Date of service: 06/23/18 Principal diagnosis: altered mental status, psychosis, chronic systolic heart failure, Interval history: Patient landed in bed. Less aggressive today but with forced speech and verbal diarrhea Objective - Exam Narrative Exam: Constitutional: Agitated and but no longeryelling. Head: Normocephalic atraumatic Eyes: Pupils are equal round and reactive to light Nose: No enlarged turbinates, no septal deviation. Mouth: Moist mucous membranes. Neck: Supple no thyromegaly. No bruit. No JVD Heart: Regular rate and rhythm, S1-S2 normal. No rubs murmurs or gallop Lungs: Clear to auscultation bilaterally. no rales or rhonchi Abdomen: Soft, nontender. Bowel sound are present. Extremities: 2+ pitting pedal edema, no cyanosis, no clubbing. Neuro: Alert oriented Oriented x3. No focal sensory or motor deficit. Skin: No rashes or hyperpigmented spots Musculoskeletal system: No joint pain or swelling Hematological: No petechia or subcutanous hemorrhages. Immunological: No multiple septic spots on the skin Lymphatic: No generalized lymphadenopathy Psychiatry: Confused and ADL in demanding that the patient should be taking it with him brought what she wants - Constitutional Vitals: Vital Signs - 12hr 06/23/18 06/23/18 06/23/18 06:32 06:33 07:00 Temperature 97.6 F Pulse Rate 97 H 104 H 115 H Respiratory 20 Rate Blood Pressure 113/63 113/63 O2 Sat by Pulse 99 Oximetry 06/23/18 14:35 Temperature Pulse Rate 117 H Respiratory Rate Blood Pressure 101/57 O2 Sat by Pulse Oximetry - Labs CBC & Chem 7: 06/23/18 14:54 06/23/18 14:54 Labs: Abnormal lab results 06/20/18 06/22/18 06/23/18 Range/Units 16:51 21:42 14:54 RBC 5.07 H (3.65-5.03) M/mm3 MCV 78 L (79-97) fl MCH 25 L (28-32) pg RDW 18.5 H (13.2-15.2) % Pope % (Auto) 12.3 H (0.0-7.3) % Lymph # 1.0 L (1.2-5.4) K/mm3 Sodium (137-145) mmol/L Potassium (3.6-5.0) mmol/L Chloride (98-107) mmol/L BUN (7-17) mg/dL POC Glucose 114 H (70-105) Total Bilirubin (0.1-1.2) mg/dL AST (5-40) units/L Alkaline Phosphatase (35-129) units/L Total Protein (6.3-8.2) g/dL Albumin (3.9-5) g/dL T3 (GILSON) 58 L (76-181) ng/dL 06/23/18 Range/Units 14:54 RBC (3.65-5.03) M/mm3 MCV (79-97) fl MCH (28-32) pg RDW (13.2-15.2) % Pope % (Auto) (0.0-7.3) % Lymph # (1.2-5.4) K/mm3 Sodium 132 L (137-145) mmol/L Potassium 3.5 L (3.6-5.0) mmol/L Chloride 91.5 L (98-107) mmol/L BUN 19 H (7-17) mg/dL POC Glucose (70-105) Total Bilirubin 2.80 H (0.1-1.2) mg/dL AST 52 H (5-40) units/L Alkaline Phosphatase 231 H (35-129) units/L Total Protein 5.5 L (6.3-8.2) g/dL Albumin 2.8 L (3.9-5) g/dL T3 (GILSON) (76-181) ng/dL
[2018-06-23] MEDS: ZESTRIL PO SCH (23:11)
[2018-06-24] MEDS: LASIX IV SCH ×2 (06:22→17:52)
[2018-06-24] MEDS: LOPRESSOR PO SCH ×3 (06:49→21:33)
--- NOTE | 2018-06-24 08:39 | Ultrasound Report ---
ULTRASOUND ABDOMEN LIMITED: TECHNIQUE: Transabdominal ultrasound with color Doppler interrogation. HISTORY: Abnormal liver function tests. COMPARISON: 10/31/17. FINDINGS: LIVER: Normal. BILIARY SYSTEM: The gallbladder is partially contracted. There appears to be trace sludge in the gallbladder fundus. No shadowing gallstones. There is mild gallbladder wall thickening measuring 4 mm. No pericholecystic fluid. The CBD measures 3 mm. PANCREAS: Normal. RIGHT KIDNEY: The right kidney measures 9.8 cm. The right renal parenchyma is slightly echogenic consistent with medical renal disease. No focal renal lesion or hydronephrosis. PROXIMAL AORTA: Normal. ASCITES: None. IMPRESSION: Trace sludge in the gallbladder. There is mild nonspecific gallbladder wall thickening as described. This may be secondary to poor distention. Mild medical renal disease.
[2018-06-24] MEDS ORDERED: K-DUR PO ONE (10:00)
[2018-06-24] MEDS: ELIQUIS PO SCH ×2 (11:28→21:34)
[2018-06-24] MEDS: ZESTRIL PO SCH (11:28)
[2018-06-24] MEDS: ZOLOFT PO SCH (11:28)
--- NOTE | 2018-06-24 12:23 | Progress Note ---
Assessment and Plan Chronic systolic heart failure Permanent atrial fibrillation/flutter Severe depression Altered mental status Recently discharged from [facility] to home hospice care Non-ischemic cardiomyopathy Lactic acidosis Hyponatremia - chronic Elevated bilirubin and alk phosphatase - chronic secondary to congestive hepatopathy Non-compliance with medical therapy and outpatient cardiac follow up. Echo 04/2018 at [facility] showed: a 4 chamber dilated cardiomyopathy, LVEF severely decreased, 20-25%. Moderate mitral regurgitation. Severe TR. RVSP is severely elevated. Recommendations: Continue medical therapy permanent atrial fibrillation and chronic systolic heart failure. Otherwise, conservative cardiac management. Subjective Date of service: 06/24/18 Principal diagnosis: altered mental status, psychosis, chronic systolic heart failure, Interval history: Patient is sitting up in bed comfortably. Sitter is at bedside. Objective Vital Signs Temp Pulse Resp Resp BP Pulse Ox 06/24/18 09:04 98.7 F 114 H 18 125/79 100 06/24/18 06:00 118 H 06/24/18 05:38 97.0 F L 120 H 16 109/71 99 06/23/18 23:06 97.2 F L 20 94/63 06/23/18 22:00 17 06/23/18 20:18 97.3 F L 116 H 16 93/65 100 06/23/18 19:00 116 H 06/23/18 14:35 117 H 101/57 06/23/18 14:04 116 H 101/57 100 - Physical Examination General: No Apparent Distress HEENT: Positive: PERRL Cardiac: Positive: irregularly irregular Neuro: Positive: Grossly Intact - Labs and Meds Cardiac Enzymes 06/23/18 Range/Units 14:54 AST 52 H (5-40) units/L CBC 06/23/18 Range/Units 14:54 WBC 4.6 (4.5-11.0) K/mm3 RBC 5.07 H (3.65-5.03) M/mm3 Hgb 12.6 (10.1-14.3) gm/dl Hct 39.5 (30.3-42.9) % Plt Count 231 (140-440) K/mm3 Lymph # 1.0 L (1.2-5.4) K/mm3 Stearns # 0.6 (0.0-0.8) K/mm3 Eos # 0.1 (0.0-0.4) K/mm3 Baso # 0.0 (0.0-0.1) K/mm3 Comprehensive Metabolic Panel 06/23/18 Range/Units 14:54 Sodium 132 L (137-145) mmol/L Potassium 3.5 L (3.6-5.0) mmol/L Chloride 91.5 L (98-107) mmol/L Carbon Dioxide 27 (22-30) mmol/L BUN 19 H (7-17) mg/dL Creatinine 1.0 (0.7-1.2) mg/dL Glucose 91 (65-100) mg/dL Calcium 8.4 (8.4-10.2) mg/dL AST 52 H (5-40) units/L ALT 27 (7-56) units/L Alkaline Phosphatase 231 H (35-129) units/L Total Protein 5.5 L (6.3-8.2) g/dL Albumin 2.8 L (3.9-5) g/dL - Allied health notes Allied health notes reviewed: nursing
--- NOTE | 2018-06-24 15:54 | Progress Note ---
Assessment and Plan Assessment and plan: Patient is 68 yo woman with a history of hypertension, CHF and Atrial fibrillation who presented with altered mental status. She was climbing a fence, running wild; therefore, brought to ED. No previous psych history. CT neg. She was sedated in ED, and admitted. MRI Brain unremarkable. Patient evaluated by Neuro. /Altered mental status, with acute encephalopathy: psych and Neurology are following /Psychosis: Psych following, rescinded 1013 /Permanent Atrial fib/flutter: On metoprolol Eliquis resumed /chronic systolic CHF of EF 20-25%, patient has been on hospice before, Continue her Lasix, beta puma, and ACEI, she is not allergic to it. Unable to get any history Per cardiology not a candidate for aggressive work up /Hyponatremiam, due to CHF, na 132 today improved from 122: Nephrology following /Elevated LFT, with elevated T. Bili Likely congestive hepatopathy, Will obtain RUQ US as this will be more tolerated than CT abdomen and pelvis in an agitated pt We will trend. obtain GI consult if still trending up Severe protein calorie malnutrition: Director Of Graduate Admissions consulted -Patient is to go for CT scan of the head with and without contrast. However she too agitated for CT head. Not stable enough to be calm for a CT scan of the head. Should review in next 1-2 Hypokalemia: replace DVT prophylaxis: Patient is on Eliquis pOOR PROGNOSIS. Will rediscuss hospice. History Interval history: Patient seen and examined, emotional and in tears. still with generalized anasacar but refusing labs. Hospitalist Physical - Physical exam Narrative exam: Constitutional: Upset about lab drawa Head: Normocephalic atraumatic Eyes: Pupils are equal round and reactive to light Nose: No enlarged turbinates, no septal deviation. Mouth: Moist mucous membranes. Neck: Supple no thyromegaly. No bruit. No JVD Heart: Regular rate and rhythm, S1-S2 normal. No rubs murmurs or gallop Lungs: Clear to auscultation bilaterally. no rales or rhonchi Abdomen: Soft, nontender. Bowel sound are present. Extremities: 2+ pitting pedal edema, no cyanosis, no clubbing. generalized anasa car Neuro: Alert oriented Oriented x3. No focal sensory or motor deficit. Skin: No rashes or hyperpigmented spots Musculoskeletal system: No joint pain or swelling Hematological: No petechia or subcutanous hemorrhages. Immunological: No multiple septic spots on the skin Lymphatic: No generalized lymphadenopathy Psychiatry: emotional - Constitutional Vitals: Temp Pulse Resp BP Pulse Ox 98.7 F 114 H 18 125/79 100 06/24/18 09:04 06/24/18 09:04 06/24/18 09:04 06/24/18 09:04 06/24/18 09:04 General appearance: Present: no acute distress Results - Labs CBC & Chem 7: 06/25/18 00:00 06/25/18 00:00 Labs: Laboratory Last Values WBC 4.6 K/mm3 (4.5-11.0) 06/23/18 14:54 RBC 5.07 M/mm3 (3.65-5.03) H 06/23/18 14:54 Hgb 12.6 gm/dl (10.1-14.3) 06/23/18 14:54 Hct 39.5 % (30.3-42.9) 06/23/18 14:54 MCV 78 fl (79-97) L 06/23/18 14:54 MCH 25 pg (28-32) L 06/23/18 14:54 MCHC 32 % (30-34) 06/23/18 14:54 RDW 18.5 % (13.2-15.2) H 06/23/18 14:54 Plt Count 231 K/mm3 (140-440) 06/23/18 14:54 Lymph % (Auto) 21.1 % (13.4-35.0) 06/23/18 14:54 [place] % (Auto) 12.3 % (0.0-7.3) H 06/23/18 14:54 Eos % (Auto) 1.2 % (0.0-4.3) 06/23/18 14:54 Baso % (Auto) 0.2 % (0.0-1.8) 06/23/18 14:54 Lymph # 1.0 K/mm3 (1.2-5.4) L 06/23/18 14:54 [place] # 0.6 K/mm3 (0.0-0.8) 06/23/18 14:54 Eos # 0.1 K/mm3 (0.0-0.4) 06/23/18 14:54 Baso # 0.0 K/mm3 (0.0-0.1) 06/23/18 14:54 Seg Neutrophils % 65.2 % (40.0-70.0) 06/23/18 14:54 Seg Neutrophils # 3.0 K/mm3 (1.8-7.7) 06/23/18 14:54 Sodium 132 mmol/L (137-145) L 06/23/18 14:54 Potassium 3.5 mmol/L (3.6-5.0) L 06/23/18 14:54 Chloride 91.5 mmol/L (98-107) L 06/23/18 14:54 Carbon Dioxide 27 mmol/L (22-30) 06/23/18 14:54 Anion Gap 17 mmol/L 06/23/18 14:54 BUN 19 mg/dL (7-17) H 06/23/18 14:54 Creatinine 1.0 mg/dL (0.7-1.2) 06/23/18 14:54 Estimated GFR > 60 ml/min 06/23/18 14:54 BUN/Creatinine Ratio 19 % 06/23/18 14:54 Glucose 91 mg/dL (65-100) 06/23/18 14:54 POC Glucose 104 (70-105) 06/23/18 21:13 Hemoglobin A1c 5.5 % (4-6) 06/17/18 15:08 Osmolality 276 Mosm/kg 06/20/18 07:31 Lactic Acid 4.00 mmol/L (0.7-2.0) H* 06/17/18 15:08 Uric Acid 9.2 mg/dL (3.5-7.6) H 06/21/18 16:27 Calcium 8.4 mg/dL (8.4-10.2) 06/23/18 14:54 Phosphorus 2.50 mg/dL (2.5-4.5) 06/20/18 07:31 Magnesium 1.70 mg/dL (1.7-2.3) 06/21/18 16:27 Total Bilirubin 2.80 mg/dL (0.1-1.2) H 06/23/18 14:54 Direct Bilirubin 1.6 mg/dL (0-0.2) H 06/17/18 11:00 Indirect Bilirubin -1.4 mg/dL 06/17/18 11:00 AST 52 units/L (5-40) H 06/23/18 14:54 ALT 27 units/L (7-56) 06/23/18 14:54 Alkaline Phosphatase 231 units/L (35-129) H 06/23/18 14:54 Ammonia 10.0 umol/L (25-60) L 06/17/18 15:08 Troponin T < 0.010 ng/mL (0.00-0.029) 06/16/18 22:25 Total Protein 5.5 g/dL (6.3-8.2) L 06/23/18 14:54 Albumin 2.8 g/dL (3.9-5) L 06/23/18 14:54 Albumin/Globulin Ratio 1.0 % 06/23/18 14:54 Vitamin B12 1598 pg/mL (211-911) H 06/20/18 20:53 25-OH Vitamin D Total 10 ng/mL (30-100) L 06/20/18 20:53 25-Hydroxy Vitamin D2 . 06/20/18 20:53 25-Hydroxy Vitamin D3 . 06/20/18 20:53 Folate 14.18 ng/mL (7.3-26.0) 06/20/18 20:53 TSH 1.770 mlU/mL (0.270-4.200) 06/17/18 23:00 Free T4 1.53 ng/dL (0.76-1.46) H 06/17/18 23:00 T3 (GILSON) 58 ng/dL (76-181) L 06/20/18 16:51 Urine Color Caryl (Yellow) 06/16/18 Unknown Urine Turbidity Clear (Clear) 06/16/18 Unknown Urine pH 5.0 (5.0-7.0) 06/16/18 Unknown Ur Specific [place] 1.025 (1.003-1.030) 06/16/18 Unknown Urine Protein 100 mg/dl mg/dL (Negative) 06/16/18 Unknown Urine Glucose (UA) 50 mg/dL (Negative) 06/16/18 Unknown Urine Ketones Neg mg/dL (Negative) 06/16/18 Unknown Urine Blood Neg (Negative) 06/16/18 Unknown Urine Nitrite Neg (Negative) 06/16/18 Unknown Urine Bilirubin Neg (Negative) 06/16/18 Unknown Urine Urobilinogen 4.0 mg/dL (<2.0) 06/16/18 Unknown Ur Leukocyte Esterase Neg (Negative) 06/16/18 Unknown Urine WBC (Auto) 4.0 /HPF (0.0-6.0) 06/16/18 Unknown Urine RBC (Auto) 5.0 /HPF (0.0-6.0) 06/16/18 Unknown U Epithel Cells (Auto) 7.0 /HPF (0-13.0) 06/16/18 Unknown Hyaline Casts 49 /LPF 06/16/18 Unknown Urine Mucus Few /HPF 06/16/18 Unknown Urine Osmolality 413 Mosm/kg 06/19/18 Unknown Urine Creatinine 61.7 mg/dL (0.1-20.0) H 06/19/18 Unknown Urine Total Protein 32 mg/dL (5-11.8) H 06/19/18 Unknown Salicylates 5.5 mg/dL (2.8-20.0) 06/16/18 21:43 Urine Opiates Screen Presumptive negative 06/16/18 Unknown Urine Methadone Screen Presumptive negative 06/16/18 Unknown Acetaminophen < 5.0 ug/mL (10.0-30.0) L 06/16/18 21:43 Ur Barbiturates Screen Presumptive negative 06/16/18 Unknown Ur Phencyclidine Scrn Presumptive negative 06/16/18 Unknown Ur Amphetamines Screen Presumptive negative 06/16/18 Unknown U Benzodiazepines Scrn Presumptive negative 06/16/18 Unknown Urine Cocaine Screen Presumptive negative 06/16/18 Unknown U Marijuana (THC) Screen Presumptive negative 06/16/18 Unknown Drugs of Abuse Note Disclamer 06/16/18 Unknown Plasma/Serum Alcohol < 0.01 % (0-0.07) 06/16/18 21:43 Thyroglobulin Antibody See scanned result 06/20/18 16:51 Thyroid Peroxidase Ab See scanned result 06/20/18 16:51 HIV 1&2 Antibody Rapid Non react (Non React) 06/21/18 16:27 HIV P24 Antigen Non react (Non React) 06/21/18 16:27 Active Medications - Current Medications Current Medications: Generic Name Dose Route Start Last Admin Trade Name Freq PRN Reason Stop Dose Admin Acetaminophen 650 mg 06/17/18 03:33 06/23/18 09:49 Tylenol PO 650 mg Q4H PRN Administration Fever >101 Apixaban 5 mg 06/20/18 16:00 06/24/18 11:28 Eliquis PO 5 mg Q12HR [facility] Administration Protocol Atorvastatin Calcium 20 mg 06/19/18 22:00 06/23/18 23:06 Lipitor PO 20 mg QHS JEANETTE Administration Digoxin 0.125 mg 06/24/18 17:00 Lanoxin PO DAILY@1700 JEANETTE Furosemide 20 mg 06/19/18 18:00 06/24/18 06:22 Lasix IV Not Given 0600,1800 [facility] Lisinopril 5 mg 06/23/18 22:00 06/24/18 11:28 Zestril PO 5 mg QDAY JEANETTE Administration Metoprolol Tartrate 50 mg 06/24/18 12:26 06/24/18 15:11 Lopressor PO 50 mg Q8HR JEANETTE Administration Ondansetron HCl 4 mg 06/17/18 03:24 Zofran IV Q8H PRN Nausea And Vomiting Sertraline HCl 50 mg 06/24/18 10:00 06/24/18 11:28 Zoloft PO 50 mg DAILY JEANETTE Administration Nutrition/Malnutrition Assess - Dietary Evaluation Nutrition/Malnutrition Findings: Nutrition Notes Start: 06/24/18 15:14 Freq: Status: Active Protocol: Document 06/24/18 15:14 RM (Rec: 06/24/18 15:21 RM [id number]) Nutrition Notes Need for Assessment generated from: LOS Current Diagnosis Hypertension,Heart Failure Other Pertinent Diagnosis Migraines, AMS, Psychosis Current Diet Cardiac/Consistent CHO Labs/Tests Reviewed Pertinent Medications Reviewed Height 5 ft 5 in Weight 78.2 kg [place] Body Weight (kg) 56.81 BMI 28.7 Subjective/Other Information Screened for LOS. Pt stated that she eats 25% to 50% of her meals. Burn Absent Trauma Absent #1 Nutrition Diagnosis Inadequate oral intake Etiology decreased appetite, psychosis As Evidenced by Signs and Symptoms pt statement that she eats 25% to 50% of her meals Is patient on ventilator? No Is Patient Ambulatory and/or Out of Bed Yes REE-([place]-St. Jeor-ambulatory/OOB) [ 1713.244 NUTR.MSJOOB] Calculation Used for Recommendations [facility] Additional Notes Protein Needs: 78-94g (1-1.2g/ kg) Fluid Needs: 1 ml/kcal Nutrition Intervention Change Diet Order: Continue current Add Supplement/Snack (indicate name/kcal Ensure Enlive Flavor Rotate 1 /protein ) daily Provides kCal: 350 Provides Protein (gm) 20 Goal #1 Meet at least 75% of calorie and protein needs via PO and ONS intakes Anticipated Discharge Needs: Cardiac/Consistent CHO diet Follow-Up By: 06/27/18 Additional Comments Follow for PO and ONS intakes
[2018-06-24] MEDS: LANOXIN PO SCH (17:52)
[2018-06-25 00:08] LABS: Basophils % (Auto) 0.6 % (0.0-1.8); Eosinophils % (Auto) 0.7 % (0.0-4.3); Hemoglobin 13.5 gm/dl (10.1-14.3); Lymphocytes # (Auto) 1.2 K/mm3 (1.2-5.4); Lymphocytes % (Auto) 34.2 % (13.4-35.0); Mean Corpuscular HGB Conc 33 % (30-34); Mean Corpuscular Volume 77 fl (79-97); Monocytes # (Auto) 0.4 K/mm3 (0.0-0.8); Monocytes % (Auto) 10.2 % (0.0-7.3); Platelet Count 211 K/mm3 (140-440); Red Blood Count 5.31 M/mm3 (3.65-5.03)
[2018-06-25 00:33] LABS: Albumin 2.7 g/dL (3.9-5); BUN/Creatinine Ratio 21; Blood Urea Nitrogen 21 mg/dL (7-17); Calcium 8.1 mg/dL (8.4-10.2); Hemolysis Index 171
[2018-06-25 00:51] LABS: Alanine Aminotransferase 32 units/L (7-56)
[2018-06-25] MEDS: LOPRESSOR PO SCH ×3 (05:48→17:39)
[2018-06-25] MEDS: LASIX IV SCH ×2 (05:48→17:38)
--- NOTE | 2018-06-25 09:29 | Progress Note ---
Assessment and Plan Assessment and plan: Patient is 68 yo woman with a history of hypertension, CHF and Atrial fibrillation who presented with altered mental status. She was climbing a fence, running wild; therefore, brought to ED. No previous psych history. CT neg. She was sedated in ED, and admitted. MRI Brain unremarkable. Patient evaluated by Neuro. Review of records show that patient was formally in Hospice and at some point had moved out of state then returned, Cardiology reports that due to her psych problems she is not a candidate for aggressive medical management, Unfortunately we cannot reach family to determine patients complaince. It does appear the patient has been non complaint with meidcation and on this admission shows generalized anasacar and with concern for Passive congestive hepatic failure. She has also demonstrate intermittent low grade fever on admission with concern for pneumonia /Altered mental status, with acute encephalopathy: psych and Neurology are following ?cerebral hypoperfuison contributing Check ammonia level obtain CT head when BP allows /SIRS ?underlying PNA Recheck chest xray start emperic levaquin, she got a few doses on admission check blood culture /shock syndrome -Give 250cc of fluids bolus -Transfer to IM until further discussion is made about Hospice -Decrease BB to 25mg q8hr -Prior Echo reported noted as documented by cardiology /Psychosis: Psych following, rescinded 1013 /Permanent Atrial fib/flutter: On metoprolol Eliquis resumed /Acute on chronic systolic CHF of EF 20-25%, /Stage D non ischemic cardiomyopathy per cardiology- possible end-stage cardiomyopathy patient has been on hospice before, Continue her Lasix, beta puma, and ACEI, she is not allergic to it. Unable to get any history Per cardiology not a candidate for aggressive work up and should consider palliative care per cardiology she was in [facility] on apr 27 2018 and discharged with home hospice LV normal size. Normal LV wall thickness. Severe global LV hypokinesis. Systolic and diastolic septal flattening c/w RV volume and pressure overload. LVEF is 21%. EF 20 - 25%. LVEF severely decreased. Grade III (severe) diastolic dysfunction c/w restrictive physiology. RV moderately dilated. RV wall motion normal. RV systolic function is normal. Abnormal RV diastolic function. LA severely dilated. RA severely dilated. Tricuspid AV. AV mildly thickened. AV opens well. Trace AR. No AV stenosis. MV mildly thickened. Moderate mitral regurgitation. Tricuspid leaflets do not completely coapt. Severe TR. Estimated RAP 15 mmHg. RAP elevated. RVSP is severely elevated. RVSP is underestimated, believed to be severe /Hyponatremia, due to CHF, na 132 today improved from 122: Nephrology following /Elevated LFT,with elevated T. Bili Likely congestive hepatopathy, Will obtain RUQ US as this will be more tolerated than CT abdomen and pelvis in an agitated pt We will trend. obtain GI consult if still trending up /Severe protein calorie malnutrition: Roofing Laborer consulted /Patient is to go for CT scan of the head with and without contrast. However she too agitated for CT head. Not stable enough to be calm for a CT scan of the head. Should review in next 1-2 Hypokalemia: replace DVT prophylaxis: Patient is on Eliquis POOR PROGNOSIS. Will discuss hospice. Transfer to [facility] Discussed with cardiology and Renal. The high probability of a clinically significant, sudden or life threatening deterioration of the [cardiac, pulmonary, hepatic] system(s) required my full and direct attention, intervention and personal management. The aggregate critical care time was [45] minutes. This time is in addition to time spent per forming reported procedures but includes the following: [x] Data Review and interpretation [x] Patient assessment and monitoring of vital signs [x] Documentation [x] Medication orders and management History Interval history: Patient seen and examined, Patient is more lethargic than noted before. Per nursing staff, BP is also low. patient is able to tell me the name of her former hospice nurse and the name of her nephew, she does not fully remember why she was in hospice but states it is because of her heart and that she got better. Hospitalist Physical - Physical exam Narrative exam: Constitutional: chronically ill appearing, lethargic Head: Normocephalic atraumatic Eyes: Pupils are equal round and reactive to light, Jaundice Nose: No enlarged turbinates, no septal deviation. Mouth: Moist mucous membranes. Neck: Supple no thyromegaly. No bruit. No JVD Heart: Regular rate and rhythm, S1-S2 normal. No rubs murmurs or gallop Lungs: Clear to auscultation bilaterally. no rales or rhonchi Abdomen: Soft, nontender. Bowel sound are present. Extremities: 2+ pitting pedal edema, no cyanosis, no clubbing. generalized anasacar Neuro: Alert oriented Oriented x2. No focal sensory. generalized weakness Skin: No rashes or hyperpigmented spots Musculoskeletal system: No joint pain or swelling Hematological: No petechia or subcutanous hemorrhages. Immunological: No multiple septic spots on the skin Lymphatic: No generalized lymphadenopathy Psychiatry: slow mentation - Constitutional Vitals: Temp Pulse Resp BP Pulse Ox 97.2 F L 78 18 78/48 98 06/25/18 03:53 06/25/18 08:42 06/25/18 08:42 06/25/18 08:42 06/25/18 03:53 General appearance: Present: no acute distress Results - Labs CBC & Chem 7: 06/25/18 00:00 06/25/18 00:00 Labs: Laboratory Last Values WBC 3.6 K/mm3 (4.5-11.0) L 06/25/18 00:00 RBC 5.31 M/mm3 (3.65-5.03) H 06/25/18 00:00 Hgb 13.5 gm/dl (10.1-14.3) 06/25/18 00:00 Hct 41.0 % (30.3-42.9) 06/25/18 00:00 MCV 77 fl (79-97) L 06/25/18 00:00 MCH 26 pg (28-32) L 06/25/18 00:00 MCHC 33 % (30-34) 06/25/18 00:00 RDW 19.0 % (13.2-15.2) H 06/25/18 00:00 Plt Count 211 K/mm3 (140-440) 06/25/18 00:00 Lymph % (Auto) 34.2 % (13.4-35.0) 06/25/18 00:00 [place] % (Auto) 10.2 % (0.0-7.3) H 06/25/18 00:00 Eos % (Auto) 0.7 % (0.0-4.3) 06/25/18 00:00 Baso % (Auto) 0.6 % (0.0-1.8) 06/25/18 00:00 Lymph # 1.2 K/mm3 (1.2-5.4) 06/25/18 00:00 [place] # 0.4 K/mm3 (0.0-0.8) 06/25/18 00:00 Eos # 0.0 K/mm3 (0.0-0.4) 06/25/18 00:00 Baso # 0.0 K/mm3 (0.0-0.1) 06/25/18 00:00 Seg Neutrophils % 54.3 % (40.0-70.0) 06/25/18 00:00 Seg Neutrophils # 2.0 K/mm3 (1.8-7.7) 06/25/18 00:00 Sodium 131 mmol/L (137-145) L 06/25/18 00:00 Potassium 5.0 mmol/L (3.6-5.0) D 06/25/18 00:00 Chloride 93.5 mmol/L (98-107) L 06/25/18 00:00 Carbon Dioxide 22 mmol/L (22-30) 06/25/18 00:00 Anion Gap 21 mmol/L 06/25/18 00:00 BUN 21 mg/dL (7-17) H 06/25/18 00:00 Creatinine 1.0 mg/dL (0.7-1.2) 06/25/18 00:00 Estimated GFR > 60 ml/min 06/25/18 00:00 BUN/Creatinine Ratio 21 % 06/25/18 00:00 Glucose 82 mg/dL (65-100) 06/25/18 00:00 POC Glucose 104 (70-105) 06/23/18 21:13 Hemoglobin A1c 5.5 % (4-6) 06/17/18 15:08 Osmolality 276 Mosm/kg 06/20/18 07:31 Lactic Acid 4.00 mmol/L (0.7-2.0) H* 06/17/18 15:08 Uric Acid 9.2 mg/dL (3.5-7.6) H 06/21/18 16:27 Calcium 8.1 mg/dL (8.4-10.2) L 06/25/18 00:00 Phosphorus 2.50 mg/dL (2.5-4.5) 06/20/18 07:31 Magnesium 1.70 mg/dL (1.7-2.3) 06/21/18 16:27 Total Bilirubin 2.70 mg/dL (0.1-1.2) H 06/25/18 00:00 Direct Bilirubin 1.6 mg/dL (0-0.2) H 06/17/18 11:00 Indirect Bilirubin -1.4 mg/dL 06/17/18 11:00 AST 81 units/L (5-40) H 06/25/18 00:00 ALT 32 units/L (7-56) 06/25/18 00:00 Alkaline Phosphatase 243 units/L (35-129) H 06/25/18 00:00 Ammonia 10.0 umol/L (25-60) L 06/17/18 15:08 Troponin T < 0.010 ng/mL (0.00-0.029) 06/16/18 22:25 Total Protein 5.5 g/dL (6.3-8.2) L 06/25/18 00:00 Albumin 2.7 g/dL (3.9-5) L 06/25/18 00:00 Albumin/Globulin Ratio 1.0 % 06/25/18 00:00 Vitamin B12 1598 pg/mL (211-911) H 06/20/18 20:53 25-OH Vitamin D Total 10 ng/mL (30-100) L 06/20/18 20:53 25-Hydroxy Vitamin D2 . 06/20/18 20:53 25-Hydroxy Vitamin D3 . 06/20/18 20:53 Folate 14.18 ng/mL (7.3-26.0) 06/20/18 20:53 TSH 1.770 mlU/mL (0.270-4.200) 06/17/18 23:00 Free T4 1.53 ng/dL (0.76-1.46) H 06/17/18 23:00 T3 (GILSON) 58 ng/dL (76-181) L 06/20/18 16:51 Urine Color Caryl (Yellow) 06/16/18 Unknown Urine Turbidity Clear (Clear) 06/16/18 Unknown Urine pH 5.0 (5.0-7.0) 06/16/18 Unknown Ur Specific [place] 1.025 (1.003-1.030) 06/16/18 Unknown Urine Protein 100 mg/dl mg/dL (Negative) 06/16/18 Unknown Urine Glucose (UA) 50 mg/dL (Negative) 06/16/18 Unknown Urine Ketones Neg mg/dL (Negative) 06/16/18 Unknown Urine Blood Neg (Negative) 06/16/18 Unknown Urine Nitrite Neg (Negative) 06/16/18 Unknown Urine Bilirubin Neg (Negative) 06/16/18 Unknown Urine Urobilinogen 4.0 mg/dL (<2.0) 06/16/18 Unknown Ur Leukocyte Esterase Neg (Negative) 06/16/18 Unknown Urine WBC (Auto) 4.0 /HPF (0.0-6.0) 06/16/18 Unknown Urine RBC (Auto) 5.0 /HPF (0.0-6.0) 06/16/18 Unknown U Epithel Cells (Auto) 7.0 /HPF (0-13.0) 06/16/18 Unknown Hyaline Casts 49 /LPF 06/16/18 Unknown Urine Mucus Few /HPF 06/16/18 Unknown Urine Osmolality 413 Mosm/kg 06/19/18 Unknown Urine Creatinine 61.7 mg/dL (0.1-20.0) H 06/19/18 Unknown Urine Total Protein 32 mg/dL (5-11.8) H 06/19/18 Unknown Salicylates 5.5 mg/dL (2.8-20.0) 06/16/18 21:43 Urine Opiates Screen Presumptive negative 06/16/18 Unknown Urine Methadone Screen Presumptive negative 06/16/18 Unknown Acetaminophen < 5.0 ug/mL (10.0-30.0) L 06/16/18 21:43 Ur Barbiturates Screen Presumptive negative 06/16/18 Unknown Ur Phencyclidine Scrn Presumptive negative 06/16/18 Unknown Ur Amphetamines Screen Presumptive negative 06/16/18 Unknown U Benzodiazepines Scrn Presumptive negative 06/16/18 Unknown Urine Cocaine Screen Presumptive negative 06/16/18 Unknown U Marijuana (THC) Screen Presumptive negative 06/16/18 Unknown Drugs of Abuse Note Disclamer 06/16/18 Unknown Plasma/Serum Alcohol < 0.01 % (0-0.07) 06/16/18 21:43 Thyroglobulin Antibody See scanned result 06/20/18 16:51 Thyroid Peroxidase Ab See scanned result 06/20/18 16:51 HIV 1&2 Antibody Rapid Non react (Non React) 06/21/18 16:27 HIV P24 Antigen Non react (Non React) 06/21/18 16:27 Active Medications - Current Medications Current Medications: Generic Name Dose Route Start Last Admin Trade Name Freq PRN Reason Stop Dose Admin Acetaminophen 650 mg 06/17/18 03:33 06/23/18 09:49 Tylenol PO 650 mg Q4H PRN Administration Fever >101 Apixaban 5 mg 06/20/18 16:00 06/24/18 21:34 Eliquis PO 5 mg Q12HR JEANETTE Administration Protocol Atorvastatin Calcium 20 mg 06/19/18 22:00 06/24/18 21:34 Lipitor PO 20 mg QHS JEANETTE Administration Digoxin 0.125 mg 06/24/18 17:00 06/24/18 17:52 Lanoxin PO 0.125 mg DAILY@1700 JEANETTE Administration Furosemide 20 mg 06/19/18 18:00 06/25/18 05:48 Lasix IV 20 mg 0600,1800 [facility] Administration Lactulose 20 gm 06/25/18 12:00 Cephulac PO Q6HR JEANETTE Metoprolol Tartrate 25 mg 06/25/18 09:00 Lopressor PO Q8H JEANETTE Ondansetron HCl 4 mg 06/17/18 03:24 Zofran IV Q8H PRN Nausea And Vomiting Sertraline HCl 50 mg 06/24/18 10:00 06/24/18 11:28 Zoloft PO 50 mg DAILY JEANETTE Administration Nutrition/Malnutrition Assess - Dietary Evaluation Nutrition/Malnutrition Findings: Nutrition Notes Start: 06/24/18 15:14 Freq: Status: Active Protocol: Document 06/24/18 15:14 RM (Rec: 06/24/18 15:21 RM [email or web address]) Nutrition Notes Need for Assessment generated from: LOS Current Diagnosis Hypertension,Heart Failure Other Pertinent Diagnosis Migraines, AMS, Psychosis Current Diet Cardiac/Consistent CHO Labs/Tests Reviewed Pertinent Medications Reviewed Height 5 ft 5 in Weight 78.2 kg [place] Body Weight (kg) 56.81 BMI 28.7 Subjective/Other Information Screened for LOS. Pt stated that she eats 25% to 50% of her meals. Burn Absent Trauma Absent #1 Nutrition Diagnosis Inadequate oral intake Etiology decreased appetite, psychosis As Evidenced by Signs and Symptoms pt statement that she eats 25% to 50% of her meals Is patient on ventilator? No Is Patient Ambulatory and/or Out of Bed Yes REE-([place]-. [facility]-ambulatory/OOB) [ 1713.244 NUTR.MSJOOB] Calculation Used for Recommendations [facility] Additional Notes Protein Needs: 78-94g (1-1.2g/ kg) Fluid Needs: 1 ml/kcal Nutrition Intervention Change Diet Order: Continue current Add Supplement/Snack (indicate name/kcal Ensure Enlive Flavor Rotate 1 /protein ) daily Provides kCal: 350 Provides Protein (gm) 20 Goal #1 Meet at least 75% of calorie and protein needs via PO and ONS intakes Anticipated Discharge Needs: Cardiac/Consistent CHO diet Follow-Up By: 06/27/18 Additional Comments Follow for PO and ONS intakes
[2018-06-25] MEDS ORDERED: NACL 0.9% 250ML 250 ML IV ONE (09:30)
[2018-06-25] MEDS: ELIQUIS PO SCH ×2 (10:05→22:20)
[2018-06-25] MEDS: ZOLOFT PO SCH (10:05)
[2018-06-25] MEDS: LEVAQUIN 750MG/150ML 750 MG/150 ML BAG IV SCH (10:06)
--- NOTE | 2018-06-25 10:35 | XRay Report ---
PROCEDURE: XR CHEST 1V AP TECHNIQUE: Chest radiograph, portable upright AP view. HISTORY: shortness of breath COMPARISONS: Chest x-ray June 16, 2018. FINDINGS: Cardiac silhouette is within normal limits. Aortic calcifications. Ill-defined opacity with linear densities in the left midlung. Decrease and more defined compared to prior. No pneumothorax or effusion. Right lung is clear. There are no suspicious osseous lesions. Degenerative changes in the spine and shoulders. IMPRESSION: * Focal infiltrate in the left midlung. Differential diagnosis includes postinflammatory scarring an d/or subsegmental atelectasis. This document is electronically signed by Darrell Corbin MD., June 25 2018 10:32:48 AM ET
--- NOTE | 2018-06-25 11:09 | Progress Note ---
Assessment and Plan 1. Chronic combined systolic and diastolic heart failure 2. Dilated cardiomyopathy LV ejection fraction 20-25% 3. Severe depression 4. Chronic atrial fibrillation Plan. Patient's systolic blood pressure is low today probably related to medication metoprolol. Decrease dose to 25 mg monitor blood pressure. Continue other cardiac medication Subjective Date of service: 06/25/18 Principal diagnosis: altered mental status, psychosis, chronic systolic heart failure, Interval history: No cardiac symptoms Objective Vital Signs Temp Pulse Resp BP BP Pulse Ox 06/25/18 10:14 72 94/55 06/25/18 10:00 18 06/25/18 09:46 72 18 94/55 06/25/18 08:42 78 18 78/48 06/25/18 03:53 97.2 F L 57 L 16 100/59 98 06/25/18 00:07 97.3 F L 16 88/49 06/24/18 22:00 18 06/24/18 20:25 100.7 F H 112 H 20 104/53 95 06/24/18 19:00 113 H 06/24/18 17:44 80/60 06/24/18 17:43 80/58 06/24/18 16:36 97.2 F L 89 18 85/50 96 06/24/18 16:00 97.2 F L 110 H 20 85/50 98 06/24/18 12:40 97.6 F 114 H 20 99/62 95 06/24/18 12:00 96.7 F L 116 H 18 99/62 99 - Physical Examination General: No Apparent Distress HEENT: Positive: PERRL Neck: Positive: trachea midline Cardiac: Positive: Regular Rate, S1/S2, Dilated, Laterally Displaced. Negative: S3 Lungs: Positive: clear to auscultation, No Wheeze, Rales, Rhonchi Neuro: Positive: Grossly Intact Abdomen: Positive: Unremarkable, Soft Skin: Positive: Clear Extremities: Present: +1 Edema - Labs and Meds Cardiac Enzymes 06/25/18 Range/Units 00:00 AST 81 H (5-40) units/L CBC 06/25/18 Range/Units 00:00 WBC 3.6 L (4.5-11.0) K/mm3 RBC 5.31 H (3.65-5.03) M/mm3 Hgb 13.5 (10.1-14.3) gm/dl Hct 41.0 (30.3-42.9) % Plt Count 211 (140-440) K/mm3 Lymph # 1.2 (1.2-5.4) K/mm3 [place] # 0.4 (0.0-0.8) K/mm3 Eos # 0.0 (0.0-0.4) K/mm3 Baso # 0.0 (0.0-0.1) K/mm3 Comprehensive Metabolic Panel 06/25/18 Range/Units 00:00 Sodium 131 L (137-145) mmol/L Potassium 5.0 D (3.6-5.0) mmol/L Chloride 93.5 L (98-107) mmol/L Carbon Dioxide 22 (22-30) mmol/L BUN 21 H (7-17) mg/dL Creatinine 1.0 (0.7-1.2) mg/dL Glucose 82 (65-100) mg/dL Calcium 8.1 L (8.4-10.2) mg/dL AST 81 H (5-40) units/L ALT 32 (7-56) units/L Alkaline Phosphatase 243 H (35-129) units/L Total Protein 5.5 L (6.3-8.2) g/dL Albumin 2.7 L (3.9-5) g/dL - Allied health notes Allied health notes reviewed: nursing
[2018-06-25] MEDS: CEPHULAC PO SCH ×3 (11:55→23:44)
--- NOTE | 2018-06-25 14:07 | Progress Note ---
Assessment and Plan - Patient Problems (1) Hyponatremia with decreased serum osmolality Current Visit: Yes Status: Acute Plan to address problem: Likely in the setting of fluid overload. Response noted with diuretic regimen. We will continue to monitor on a daily basis. labs reviewed this morning and serum sodium levels are stable. (2) Fluid overload Current Visit: Yes Status: Chronic Qualifiers: Hypervolemia type: other Qualified Code(s): E87.79 - Other fluid overload Plan to address problem: Agree with current regimen and diuretic management. Would recommend fluid restrictions and appropriate low-sodium diet given her history of end-stage heart disease and cardiomyopathy. (3) Acute on chronic systolic heart failure Current Visit: No Status: Acute Plan to address problem: Follow up with further recommendations per cardiology. Will continue on current diuretic regimen along with appropriate fluid restrictions and low sodium diet. (4) Altered mental status Current Visit: Yes Status: Acute Plan to address problem: We'll continue to monitor closely. Psychiatry evaluation noted. (5) HTN (hypertension) Current Visit: No Status: Chronic Plan to address problem: Continue on current regimen and will monitor. Subjective Date of service: 06/25/18 Principal diagnosis: altered mental status, psychosis, chronic systolic heart failure, Interval history: pt awake, alert, in NAD Objective - Vital Signs Vital signs: Vital Signs - 12hr 06/25/18 06/25/18 06/25/18 03:53 08:42 09:46 Temperature 97.2 F L Pulse Rate 57 L 78 72 Respiratory 16 18 18 Rate Blood Pressure Blood Pressure 100/59 78/48 94/55 [Left] O2 Sat by Pulse 98 Oximetry 06/25/18 06/25/18 06/25/18 10:00 10:14 12:05 Temperature Pulse Rate 72 80 Respiratory 18 18 Rate Blood Pressure 94/55 Blood Pressure 90/52 [Left] O2 Sat by Pulse 98 Oximetry - General Appearance General appearance: well-developed, well-nourished, appears stated age EENT: ATNC, PERRL, mucous membranes moist Neck: no JVD Respiratory: Present: Clear to Ascultation Cardiology: regular, S1S2 Gastrointestinal: normoactive bowel sounds Integumentary: no rash Neurologic: no focal deficit, alert and oriented x3, strength 5/5, CN 3-12 intact - Lab 06/25/18 00:00 06/25/18 00:00 Most recent lab results Calcium 8.1 mg/dL (8.4-10.2) L 06/25/18 00:00 Phosphorus 2.50 mg/dL (2.5-4.5) 06/20/18 07:31 Magnesium 1.70 mg/dL (1.7-2.3) 06/21/18 16:27 Urine Creatinine 61.7 mg/dL (0.1-20.0) H 06/19/18 Unknown Urine Total Protein 32 mg/dL (5-11.8) H 06/19/18 Unknown Medications & Allergies - Medications Allergies/Adverse Reactions: Allergies Penicillins Allergy (Verified 09/04/17 14:11) Unknown aspirin Adverse Reaction (Verified 09/04/17 14:10) Nausea NSAIDS (Non-Steroidal Anti-Inflamma Adverse Reaction (Verified 09/04/17 14:10) Nausea Pork/Porcine Containing Products Adverse Reaction (Verified 11/01/17 09:04) Nausea Home Medications: Home Medications Medication Instructions Recorded Confirmed Last Taken Type Apixaban [Eliquis] 5 mg PO DAILY 09/06/17 10/31/17 Unknown History AtorvaSTATin [Lipitor] 20 mg PO DAILY 09/06/17 10/31/17 Unknown History Loperamide HCl [Loperamide] 2 mg PO DAILY 09/06/17 10/31/17 Unknown History Sertraline [Zoloft] 50 mg PO DAILY 09/06/17 10/31/17 10/17/17 10:00 History Sucralfate [Carafate] 1 gm PO DAILY 09/06/17 10/31/17 Unknown History Carvedilol [Coreg] 12.5 mg PO BID #60 tablet 09/08/17 10/31/17 Unknown Rx Lisinopril [Zestril TAB] 5 mg PO QDAY #30 tablet 09/08/17 10/31/17 Unknown Rx Doxycycline [Vibramycin CAP] 100 mg PO Q12HR #10 capsule 11/02/17 Unknown Rx Furosemide [Lasix] 20 mg PO QDAY #30 tablet 11/02/17 Unknown Rx Active Medications: Generic Name Dose Route Start Last Admin Trade Name Freq PRN Reason Stop Dose Admin Acetaminophen 650 mg 06/17/18 03:33 06/23/18 09:49 Tylenol PO 650 mg Q4H PRN Administration Fever >101 Apixaban 5 mg 06/20/18 16:00 06/25/18 10:05 Eliquis PO 5 mg Q12HR JEANETTE Administration Protocol Atorvastatin Calcium 20 mg 06/19/18 22:00 06/24/18 21:34 Lipitor PO 20 mg QHS JEANETTE Administration Digoxin 0.125 mg 06/24/18 17:00 06/24/18 17:52 Lanoxin PO 0.125 mg DAILY@1700 JEANETTE Administration Furosemide 20 mg 06/19/18 18:00 06/25/18 05:48 Lasix IV 20 mg 0600,1800 JEANETTE Administration Levofloxacin/Dextrose 750 mg in 150 mls @ 100 mls/hr 06/25/18 10:00 06/25/18 10:06 Levaquin 750mg/150ml IV 100 mls/hr Q24HR JEANETTE Administration Protocol Lactulose 20 gm 06/25/18 12:00 06/25/18 11:55 Cephulac PO 20 gm Q6HR JEANETTE Administration Metoprolol Tartrate 25 mg 06/25/18 09:00 06/25/18 10:14 Lopressor PO Not Given Q8H JEANETTE Ondansetron HCl 4 mg 06/17/18 03:24 Zofran IV Q8H PRN Nausea And Vomiting Sertraline HCl 50 mg 06/24/18 10:00 06/25/18 10:05 Zoloft PO 50 mg DAILY JEANETTE Administration
[2018-06-25 16:37] LABS: Hematocrit 45.4 % (30.3-42.9); Hemoglobin 14.6 gm/dl (10.1-14.3); Mean Corpuscular HGB Conc 32 % (30-34); Mean Corpuscular Volume 79 fl (79-97); Platelet Count 197 K/mm3 (140-440); Red Blood Count 5.78 M/mm3 (3.65-5.03); Red Cell Distribution Width 19.2 % (13.2-15.2)
[2018-06-25 17:03] LABS: Albumin 3.3 g/dL (3.9-5); Calcium 8.7 mg/dL (8.4-10.2)
[2018-06-25] MEDS: LANOXIN PO SCH (17:38)
[2018-06-25 18:26] LABS: Basophils % (Manual) 0 % (0.0-1.8); Eosinophils % (Manual) 0 % (0.0-4.3); Total Cells Counted 100
[2018-06-25 18:27] LABS: Anisocytosis 2+; Hypochromasia 1+; Macrocytosis Few; Ovalocytes Few; Platelet Estimate Consistent w Auto; Poikilocytosis 1+; Schistocytes Rare; Target Cells 1+
[2018-06-25] MEDS: TYLENOL PO PRN (22:20)
[2018-06-26] MEDS: LASIX IV SCH (06:57)
[2018-06-26] MEDS: CEPHULAC PO SCH ×4 (06:57→23:42)
[2018-06-26] MEDS ORDERED: NACL 0.9% 250ML 250 ML IV ONE (07:25)
[2018-06-26] MEDS: ELIQUIS PO SCH ×2 (09:09→21:56)
[2018-06-26] MEDS: TYLENOL PO PRN (09:09)
[2018-06-26] MEDS: LEVAQUIN 750MG/150ML 750 MG/150 ML BAG IV SCH (09:10)
--- NOTE | 2018-06-26 09:33 | Progress Note ---
Assessment and Plan Assessment and plan: Patient is 68 yo woman with a history of hypertension, CHF and Atrial fibrillation who presented with altered mental status. She was climbing a fence, running wild; therefore, brought to ED. No previous psych history. CT neg. She was sedated in ED, and admitted. MRI Brain unremarkable. Patient evaluated by Neuro. Review of records show that patient was formally in Hospice and at some point had moved out of state then returned, Cardiology reports that due to her psych problems she is not a candidate for aggressive medical management, Unfortunately we cannot reach family to determine patients compliance. It does appear the patient has been non complaint with medication and on this admission shows generalized anasacar and with concern for Passive congestive hepatic failure. She has also demonstrate intermittent low grade fever on admission with concern for pneumonia IMPRESSION: * Focal infiltrate in the left midlung. Differential diagnosis includes postinflammatory scarring and/or subsegmental atelectasis. LV normal size. Normal LV wall thickness. Severe global LV hypokinesis. Systolic and diastolic septal flattening c/w RV volume and pressure overload. LVEF is 21%. EF 20 - 25%. LVEF severely decreased. Grade III (severe) diastolic dysfunct ion c/w restrictive physiology. RV moderately dilated. RV wall motion normal. RV systolic function is normal. Abnormal RV diastolic function. LA severely dilated. RA severely dilated. Tricuspid AV. AV mildly thickened. AV opens well. Trace AR. No AV stenosis. MV mildly thickened. Moderate mitral regurgitation. Tricuspid leaflets do not completely coapt. Severe TR. Estimated RAP 15 mmHg. RAP elevated. RVSP is severely elevated. RVSP is underestimated, believed to be severe /Altered mental status, with acute encephalopathy: psych and Neurology are following ?cerebral hypoperfuison contributing vs sepsis normal, Attempt CT head today Haldol PRN /AMY Hold lasix Give additional fluids Repeat in AM /SIRS ?underlying PNA doubt based on xray review and lack of fever or leukocytoisis Recheck chest xray Continue empiric levaquin, she got a few doses on admission check blood culture- NO GROWTH /shock syndrome -Give 250cc of fluids bolus AND Additional today -Decrease BB to 25mg q8hr -Prior Echo reported noted as documented by cardiology /Persistently elevated Lactic acidosis -Likely secondary to hypoperfusion /Psychosis: Psych following, rescinded 1013 /Permanent Atrial fib/flutter: On metoprolol, Eliquis resumed /Acute on chronic systolic CHF of EF 20-25%, /Stage D non ischemic cardiomyopathy per cardiology- possible end-stage cardiomyopathy patient has been on hospice before, Continue her Lasix, beta puma, and ACEI, she is not allergic to it. Unable to get any history Per cardiology not a candidate for aggressive work up and should consider p alliative care per cardiology she was in [facility] on apr 27 2018 and discharged with home hospice /Hyponatremia, due to CHF, na 131 today improved from 122: Nephrology following /Elevated LFT,with elevated T. Bili Likely congestive hepatopathy, Will obtain RUQ US as this will be more tolerated than CT abdomen and pelvis in an agitated pt We will trend. Obtain GI consult if still trending up, although currently stable /Severe protein calorie malnutrition: [employer] consulted /Hypokalemia: replace DVT prophylaxis: Patient is on Eliquis POOR PROGNOSIS. Will discuss hospice. CONTINUE IMCU CARE Discussed with cardiology and Renal. The high probability of a clinically significant, sudden or life threatening deterioration of the [cardiac, pulmonary, hepatic] system(s) required my full and direct attention, intervention and personal management. The aggregate critical care time was [45] minutes. This time is in addition to time spent performing reported procedures but includes the following: [x] Data Review and interpretation [x] Patient assessment and monitoring of vital signs [x] Documentation [x] Medication orders and management History Interval history: Patient seen and examined, Although BP has improved, the patient remains confused intermittently with possible delirium. No other adverse event noted or reported to me by nursing. Patient clinically stable with no worsening shortness of breath. Hospitalist Physical - Physical exam Narrative exam: Constitutional: chronically ill appearing, lethargic Head: Normocephalic atraumatic Eyes: Pupils are equal round and reactive to light, Jaundice Nose: No enlarged turbinates, no septal deviation. Mouth: Moist mucous membranes. Neck: Supple no thyromegaly. No bruit. No JVD Heart: Regular rate and rhythm, S1-S2 normal. No rubs murmurs or gallop Lungs: Clear to auscultation bilaterally. no rales or rhonchi Abdomen: Soft, nontender. Bowel sound are present. Extremities: 1+ pitting pedal edema, no cyanosis, no clubbing. generalized anasacar Neuro: Alert oriented Oriented x2 with periods of lucidity. No focal sensory. generalized weakness Skin: No rashes or hyperpigmented spots Musculoskeletal system: No joint pain or swelling Hematological: No petechia or subcutanous hemorrhages. Immunological: No multiple septic spots on the skin Lymphatic: No generalized lymphadenopathy Psychiatry: slow mentation - Constitutional Vitals: Temp Pulse Resp BP Pulse Ox 97.2 F L 112 H 14 119/87 100 06/25/18 03:53 06/26/18 07:00 06/26/18 06:01 06/26/18 06:01 06/26/18 00:01 General appearance: Present: no acute distress Results - Labs CBC & Chem 7: 06/25/18 16:02 06/25/18 16:18 Labs: Laboratory Last Values WBC 3.9 K/mm3 (4.5-11.0) L 06/25/18 16:02 RBC 5.78 M/mm3 (3.65-5.03) H 06/25/18 16:02 Hgb 14.6 gm/dl (10.1-14.3) H 06/25/18 16:02 Hct 45.4 % (30.3-42.9) H 06/25/18 16:02 MCV 79 fl (79-97) 06/25/18 16:02 MCH 25 pg (28-32) L 06/25/18 16:02 MCHC 32 % (30-34) 06/25/18 16:02 RDW 19.2 % (13.2-15.2) H 06/25/18 16:02 Plt Count 197 K/mm3 (140-440) 06/25/18 16:02 Lymph % (Auto) 34.2 % (13.4-35.0) 06/25/18 00:00 [place] % (Auto) 10.2 % (0.0-7.3) H 06/25/18 00:00 Eos % (Auto) 0.7 % (0.0-4.3) 06/25/18 00:00 Baso % (Auto) 0.6 % (0.0-1.8) 06/25/18 00:00 Lymph # 1.2 K/mm3 (1.2-5.4) 06/25/18 00:00 [place] # 0.4 K/mm3 (0.0-0.8) 06/25/18 00:00 Eos # 0.0 K/mm3 (0.0-0.4) 06/25/18 00:00 Baso # 0.0 K/mm3 (0.0-0.1) 06/25/18 00:00 Add Manual Diff Complete 06/25/18 16:02 Total Counted 100 06/25/18 16:02 Seg Neutrophils % 54.3 % (40.0-70.0) 06/25/18 00:00 Seg Neuts % (Manual) 65.0 % (40.0-70.0) 06/25/18 16:02 Band Neutrophils % 0 % 06/25/18 16:02 Lymphocytes % (Manual) 28.0 % (13.4-35.0) 06/25/18 16:02 Reactive Lymphs % (Man) 0 % 06/25/18 16:02 Monocytes % (Manual) 7.0 % (0.0-7.3) 06/25/18 16:02 Eosinophils % (Manual) 0 % (0.0-4.3) 06/25/18 16:02 Basophils % (Manual) 0 % (0.0-1.8) 06/25/18 16:02 Metamyelocytes % 0 % 06/25/18 16:02 Myelocytes % 0 % 06/25/18 16:02 Promyelocytes % 0 % 06/25/18 16:02 Blast Cells % 0 % 06/25/18 16:02 Nucleated RBC % Not Reportable 06/25/18 16:02 Seg Neutrophils # 2.0 K/mm3 (1.8-7.7) 06/25/18 00:00 Seg Neutrophils # Man 2.5 K/mm3 (1.8-7.7) 06/25/18 16:02 Band Neutrophils # 0.0 K/mm3 06/25/18 16:02 Lymphocytes # (Manual) 1.1 K/mm3 (1.2-5.4) L 06/25/18 16:02 Abs React Lymphs (Man) 0.0 K/mm3 06/25/18 16:02 Monocytes # (Manual) 0.3 K/mm3 (0.0-0.8) 06/25/18 16:02 Eosinophils # (Manual) 0.0 K/mm3 (0.0-0.4) 06/25/18 16:02 Basophils # (Manual) 0.0 K/mm3 (0.0-0.1) 06/25/18 16:02 Metamyelocytes # 0.0 K/mm3 06/25/18 16:02 Myelocytes # 0.0 K/mm3 06/25/18 16:02 Promyelocytes # 0.0 K/mm3 06/25/18 16:02 Blast Cells # 0.0 K/mm3 06/25/18 16:02 WBC Morphology Not Reportable 06/25/18 16:02 Hypersegmented Neuts Not Reportable 06/25/18 16:02 Hyposegmented Neuts Not Reportable 06/25/18 16:02 Hypogranular Neuts Not Reportable 06/25/18 16:02 Smudge Cells Not Reportable 06/25/18 16:02 Toxic Granulation Not Reportable 06/25/18 16:02 Toxic Vacuolation Not Reportable 06/25/18 16:02 Dohle Bodies Not Reportable 06/25/18 16:02 Pelger-Huet Anomaly Not Reportable 06/25/18 16:02 Sushma Rods Not Reportable 06/25/18 16:02 Platelet Estimate Consistent w auto 06/25/18 16:02 Clumped Platelets Not Reportable 06/25/18 16:02 Plt Clumps, EDTA Not Reportable 06/25/18 16:02 Large Platelets Not Reportable 06/25/18 16:02 Giant Platelets Not Reportable 06/25/18 16:02 Platelet Satelliting Not Reportable 06/25/18 16:02 Plt Morphology Comment Not Reportable 06/25/18 16:02 RBC Morphology Not Reportable 06/25/18 16:02 Dimorphic RBCs Not Reportable 06/25/18 16:02 Polychromasia Not Reportable 06/25/18 16:02 Hypochromasia 1+ 06/25/18 16:02 Poikilocytosis 1+ 06/25/18 16:02 Anisocytosis 2+ 06/25/18 16:02 Microcytosis 1+ 06/25/18 16:02 Macrocytosis Few 06/25/18 16:02 Spherocytes Not Reportable 06/25/18 16:02 Pappenheimer Bodies Not Reportable 06/25/18 16:02 Sickle Cells Not Reportable 06/25/18 16:02 Target Cells 1+ 06/25/18 16:02 Tear Drop Cells Not Reportable 06/25/18 16:02 Ovalocytes Few 06/25/18 16:02 Helmet Cells Not Reportable 06/25/18 16:02 [place] Bodies Not Reportable 06/25/18 16:02 [place] Rings Not Reportable 06/25/18 16:02 [place] Cells Not Reportable 06/25/18 16:02 Bite Cells Not Reportable 06/25/18 16:02 Crenated Cell Not Reportable 06/25/18 16:02 Elliptocytes Few 06/25/18 16:02 Acanthocytes (Spur) Not Reportable 06/25/18 16:02 Rouleaux Not Reportable 06/25/18 16:02 Hemoglobin C Crystals Not Reportable 06/25/18 16:02 Schistocytes Rare 06/25/18 16:02 Malaria parasites Not Reportable 06/25/18 16:02 Saqib Bodies Not Reportable 06/25/18 16:02 Hem Pathologist Commnt No 06/25/18 16:02 Sodium 131 mmol/L (137-145) L 06/25/18 16:18 Potassium 4.4 mmol/L (3.6-5.0) 06/25/18 16:18 Chloride 90.0 mmol/L (98-107) L 06/25/18 16:18 Carbon Dioxide 24 mmol/L (22-30) 06/25/18 16:18 Anion Gap 21 mmol/L 06/25/18 16:18 BUN 25 mg/dL (7-17) H 06/25/18 16:18 Creatinine 1.4 mg/dL (0.7-1.2) H 06/25/18 16:18 Estimated GFR 45 ml/min 06/25/18 16:18 BUN/Creatinine Ratio 18 % 06/25/18 16:18 Glucose 86 mg/dL (65-100) 06/25/18 16:18 POC Glucose 104 (70-105) 06/23/18 21:13 Hemoglobin A1c 5.5 % (4-6) 06/17/18 15:08 Osmolality 276 Mosm/kg 06/20/18 07:31 Lactic Acid 6.40 mmol/L (0.7-2.0) H* 06/25/18 21:06 Uric Acid 9.2 mg/dL (3.5-7.6) H 06/21/18 16:27 Calcium 8.7 mg/dL (8.4-10.2) 06/25/18 16:18 Phosphorus 2.50 mg/dL (2.5-4.5) 06/20/18 07:31 Magnesium 1.70 mg/dL (1.7-2.3) 06/21/18 16:27 Total Bilirubin 3.10 mg/dL (0.1-1.2) H 06/25/18 16:18 Direct Bilirubin 1.6 mg/dL (0-0.2) H 06/17/18 11:00 Indirect Bilirubin -1.4 mg/dL 06/17/18 11:00 AST 68 units/L (5-40) H 06/25/18 16:18 ALT 35 units/L (7-56) 06/25/18 16:18 Alkaline Phosphatase 296 units/L (35-129) H 06/25/18 16:18 Ammonia 38.0 umol/L (25-60) 06/25/18 16:02 Troponin T < 0.010 ng/mL (0.00-0.029) 06/16/18 22:25 Total Protein 6.1 g/dL (6.3-8.2) L 06/25/18 16:18 Albumin 3.3 g/dL (3.9-5) L 06/25/18 16:18 Albumin/Globulin Ratio 1.2 % 06/25/18 16:18 Vitamin B1 <6 nmol/L (8-30) L 06/21/18 16:27 Vitamin B12 1598 pg/mL (211-911) H 06/20/18 20:53 25-OH Vitamin D Total 10 ng/mL (30-100) L 06/20/18 20:53 25-Hydroxy Vitamin D2 . 06/20/18 20:53 25-Hydroxy Vitamin D3 . 06/20/18 20:53 Folate 14.18 ng/mL (7.3-26.0) 06/20/18 20:53 TSH 1.770 mlU/mL (0.270-4.200) 06/17/18 23:00 Free T4 1.53 ng/dL (0.76-1.46) H 06/17/18 23:00 T3 (GILSON) 58 ng/dL (76-181) L 06/20/18 16:51 Urine Color Caryl (Yellow) 06/16/18 Unknown Urine Turbidity Clear (Clear) 06/16/18 Unknown Urine pH 5.0 (5.0-7.0) 06/16/18 Unknown Ur Specific [place] 1.025 (1.003-1.030) 06/16/18 Unknown Urine Protein 100 mg/dl mg/dL (Negative) 06/16/18 Unknown Urine Glucose (UA) 50 mg/dL (Negative) 06/16/18 Unknown Urine Ketones Neg mg/dL (Negative) 06/16/18 Unknown Urine Blood Neg (Negative) 06/16/18 Unknown Urine Nitrite Neg (Negative) 06/16/18 Unknown Urine Bilirubin Neg (Negative) 06/16/18 Unknown Urine Urobilinogen 4.0 mg/dL (<2.0) 06/16/18 Unknown Ur Leukocyte Esterase Neg (Negative) 06/16/18 Unknown Urine WBC (Auto) 4.0 /HPF (0.0-6.0) 06/16/18 Unknown Urine RBC (Auto) 5.0 /HPF (0.0-6.0) 06/16/18 Unknown U Epithel Cells (Auto) 7.0 /HPF (0-13.0) 06/16/18 Unknown Hyaline Casts 49 /LPF 06/16/18 Unknown Urine Mucus Few /HPF 06/16/18 Unknown Urine Osmolality 413 Mosm/kg 06/19/18 Unknown Urine Creatinine 61.7 mg/dL (0.1-20.0) H 06/19/18 Unknown Urine Total Protein 32 mg/dL (5-11.8) H 06/19/18 Unknown Salicylates 5.5 mg/dL (2.8-20.0) 06/16/18 21:43 Urine Opiates Screen Presumptive negative 06/16/18 Unknown Urine Methadone Screen Presumptive negative 06/16/18 Unknown Acetaminophen < 5.0 ug/mL (10.0-30.0) L 06/16/18 21:43 Ur Barbiturates Screen Presumptive negative 06/16/18 Unknown Ur Phencyclidine Scrn Presumptive negative 06/16/18 Unknown Ur Amphetamines Screen Presumptive negative 06/16/18 Unknown U Benzodiazepines Scrn Presumptive negative 06/16/18 Unknown Urine Cocaine Screen Presumptive negative 06/16/18 Unknown U Marijuana (THC) Screen Presumptive negative 06/16/18 Unknown Drugs of Abuse Note Disclamer 06/16/18 Unknown Plasma/Serum Alcohol < 0.01 % (0-0.07) 06/16/18 21:43 Thyroglobulin Antibody See scanned result 06/20/18 16:51 Thyroid Peroxidase Ab See scanned result 06/20/18 16:51 HIV 1&2 Antibody Rapid Non react (Non React) 06/21/18 16:27 HIV P24 Antigen Non react (Non React) 06/21/18 16:27 Active Medications - Current Medications Current Medications: Generic Name Dose Route Start Last Admin Trade Name Freq PRN Reason Stop Dose Admin Acetaminophen 650 mg 06/17/18 03:33 06/26/18 09:09 Tylenol PO 650 mg Q4H PRN Administration Fever >101 Apixaban 5 mg 06/20/18 16:00 06/26/18 09:09 Eliquis PO 5 mg Q12HR JEANETTE Administration Protocol Atorvastatin Calcium 20 mg 06/19/18 22:00 06/25/18 22:20 Lipitor PO 20 mg QHS JEANETTE Administration Digoxin 0.125 mg 06/24/18 17:00 06/25/18 17:38 Lanoxin PO 0.125 mg DAILY@1700 JEANETTE Administration Furosemide 20 mg 06/27/18 18:00 Lasix IV 0600,1800 JEANETTE Levofloxacin/Dextrose 750 mg in 150 mls @ 100 mls/hr 06/25/18 10:00 06/26/18 09:10 Levaquin 750mg/150ml IV 100 mls/hr Q24HR JEANETTE Administration Protocol Lactulose 20 gm 06/25/18 12:00 06/26/18 06:57 Cephulac PO 20 gm Q6HR JEANETTE Administration Metoprolol Tartrate 25 mg 06/25/18 09:00 06/25/18 17:39 Lopressor PO Not Given Q8H JEANETTE Ondansetron HCl 4 mg 06/17/18 03:24 Zofran IV Q8H PRN Nausea And Vomiting Sertraline HCl 50 mg 06/24/18 10:00 06/25/18 10:05 Zoloft PO 50 mg DAILY JEANETTE Administration Nutrition/Malnutrition Assess - Dietary Evaluation Nutrition/Malnutrition Findings: Nutrition Notes Start: 06/24/18 15:14 Freq: Status: Active Protocol: Document 06/24/18 15:14 RM (Rec: 06/24/18 15:21 RM [id number]) Nutrition Notes Need for Assessment generated from: LOS Current Diagnosis Hypertension,Heart Failure Other Pertinent Diagnosis Migraines, AMS, Psychosis Current Diet Cardiac/Consistent CHO Labs/Tests Reviewed Pertinent Medications Reviewed Height 5 ft 5 in Weight 78.2 kg [place] Body Weight (kg) 56.81 BMI 28.7 Subjective/Other Information Screened for LOS. Pt stated that she eats 25% to 50% of her meals. Burn Absent Trauma Absent #1 Nutrition Diagnosis Inadequate oral intake Etiology decreased appetite, psychosis As Evidenced by Signs and Symptoms pt statement that she eats 25% to 50% of her meals Is patient on ventilator? No Is Patient Ambulatory and/or Out of Bed Yes REE-([place]-St. Jeor-ambulatory/OOB) [ 1713.244 [id number]] Calculation Used for Recommendations [place]-St Jeor Additional Notes Protein Needs: 78-94g (1-1.2g/ kg) Fluid Needs: 1 ml/kcal Nutrition Intervention Change Diet Order: Continue current Add Supplement/Snack (indicate name/kcal Ensure Enlive Flavor Rotate 1 /protein ) daily Provides kCal: 350 Provides Protein (gm) 20 Goal #1 Meet at least 75% of calorie and protein needs via PO and ONS intakes Anticipated Discharge Needs: Cardiac/Consistent CHO diet Follow-Up By: 06/27/18 Additional Comments Follow for PO and ONS intakes
[2018-06-26] MEDS ORDERED: HALDOL IM PRN (09:35)
--- NOTE | 2018-06-26 11:12 | Progress Note ---
Assessment and Plan - Patient Problems (1) Cardiac arrest Current Visit: Yes Status: Acute Plan to address problem: code blue called, ACLS initiated, pt given 2 rounds epi, CPR, then pulse check showed Ventricular fibrillation and 1 shock via defibrillator was delivered with returning of pulse. Pt was intubated during code. (2) Hyponatremia with decreased serum osmolality Current Visit: Yes Status: Acute Plan to address problem: Likely in the setting of fluid overload. Response noted with diuretic regimen. We will continue to monitor on a daily basis. (3) Fluid overload Current Visit: Yes Status: Chronic Qualifiers: Hypervolemia type: other Qualified Code(s): E87.79 - Other fluid overload Plan to address problem: Agree with current regimen and diuretic management. Would recommend fluid restrictions and appropriate low-sodium diet given her history of end-stage heart disease and cardiomyopathy. (4) Acute on chronic systolic heart failure Current Visit: No Status: Acute Plan to address problem: Follow up with further recommendations per cardiology. Will continue on current diuretic regimen along with appropriate fluid restrictions and low sodium diet. (5) Altered mental status Current Visit: Yes Status: Acute Plan to address problem: We'll continue to monitor closely. Psychiatry evaluation noted. (6) HTN (hypertension) Current Visit: No Status: Chronic Plan to address problem: Continue on current regimen and will monitor. Subjective Date of service: 06/26/18 Principal diagnosis: altered mental status, psychosis, chronic systolic heart failure, Interval history: pt unresponsive,severe bradycardia < 30 noted, then pt became pulseless, code jorge called. Objective - Vital Signs Vital signs: Vital Signs - 12hr 06/25/18 06/26/18 06/26/18 23:23 00:01 01:01 Pulse Rate 91 H 99 H 101 H Respiratory 15 13 20 Rate Blood Pressure 95/71 109/87 102/86 O2 Sat by Pulse 100 Oximetry 06/26/18 06/26/18 06/26/18 02:00 03:01 04:01 Pulse Rate 103 H 105 H 107 H Respiratory 15 14 17 Rate Blood Pressure 117/87 120/89 118/71 O2 Sat by Pulse Oximetry 06/26/18 06/26/18 06/26/18 05:00 06:01 07:00 Pulse Rate 92 H 95 H 112 H Respiratory 12 14 Rate Blood Pressure 108/78 119/87 O2 Sat by Pulse Oximetry - General Appearance General appearance: well-developed, other (unresponsive ) EENT: ATNC, mucous membranes moist Neck: no JVD Respiratory: Present: Decreased Breath Sounds Cardiology: bradycardia Gastrointestinal: normoactive bowel sounds Integumentary: no rash Neurologic: other (unresponsive ) - Lab 06/25/18 16:02 06/25/18 16:18 Most recent lab results Calcium 8.7 mg/dL (8.4-10.2) 06/25/18 16:18 Phosphorus 2.50 mg/dL (2.5-4.5) 06/20/18 07:31 Magnesium 1.70 mg/dL (1.7-2.3) 06/21/18 16:27 Urine Creatinine 61.7 mg/dL (0.1-20.0) H 06/19/18 Unknown Urine Total Protein 32 mg/dL (5-11.8) H 06/19/18 Unknown Medications & Allergies - Medications Allergies/Adverse Reactions: Allergies Penicillins Allergy (Verified 09/04/17 14:11) Unknown aspirin Adverse Reaction (Verified 09/04/17 14:10) Nausea NSAIDS (Non-Steroidal Anti-Inflamma Adverse Reaction (Verified 09/04/17 14:10) Nausea Pork/Porcine Containing Products Adverse Reaction (Verified 11/01/17 09:04) Nausea Home Medications: Home Medications Medication Instructions Recorded Confirmed Last Taken Type Apixaban [Eliquis] 5 mg PO DAILY 09/06/17 10/31/17 Unknown History AtorvaSTATin [Lipitor] 20 mg PO DAILY 09/06/17 10/31/17 Unknown History Loperamide HCl [Loperamide] 2 mg PO DAILY 09/06/17 10/31/17 Unknown History Sertraline [Zoloft] 50 mg PO DAILY 09/06/17 10/31/17 10/17/17 10:00 History Sucralfate [Carafate] 1 gm PO DAILY 09/06/17 10/31/17 Unknown History Carvedilol [Coreg] 12.5 mg PO BID #60 tablet 09/08/17 10/31/17 Unknown Rx Lisinopril [Zestril TAB] 5 mg PO QDAY #30 tablet 09/08/17 10/31/17 Unknown Rx Doxycycline [Vibramycin CAP] 100 mg PO Q12HR #10 capsule 11/02/17 Unknown Rx Furosemide [Lasix] 20 mg PO QDAY #30 tablet 11/02/17 Unknown Rx Active Medications: Generic Name Dose Route Start Last Admin Trade Name Freq PRN Reason Stop Dose Admin Acetaminophen 650 mg 06/17/18 03:33 06/26/18 09:09 Tylenol PO 650 mg Q4H PRN Administration Fever >101 Apixaban 5 mg 06/20/18 16:00 06/26/18 09:09 Eliquis PO 5 mg Q12HR JEANETTE Administration Protocol Atorvastatin Calcium 20 mg 06/19/18 22:00 06/25/18 22:20 Lipitor PO 20 mg QHS JEANETTE Administration Digoxin 0.125 mg 06/24/18 17:00 06/25/18 17:38 Lanoxin PO 0.125 mg DAILY@1700 JEANETTE Administration Furosemide 20 mg 06/27/18 18:00 Lasix IV 0600,1800 JEANETTE Haloperidol Lactate 5 mg 06/26/18 09:35 06/26/18 09:44 Haldol IM 5 mg Q8H PRN Administration Agitation Levofloxacin/Dextrose 750 mg in 150 mls @ 100 mls/hr 06/25/18 10:00 06/26/18 09:10 Levaquin 750mg/150ml IV 100 mls/hr Q24HR JEANETTE Administration Protocol Lactulose 20 gm 06/25/18 12:00 06/26/18 06:57 Cephulac PO 20 gm Q6HR JEANETTE Administration Metoprolol Tartrate 25 mg 06/25/18 09:00 06/25/18 17:39 Lopressor PO Not Given Q8H JEANETTE Ondansetron HCl 4 mg 06/17/18 03:24 Zofran IV Q8H PRN Nausea And Vomiting Sertraline HCl 50 mg 06/24/18 10:00 06/25/18 10:05 Zoloft PO 50 mg DAILY JEANETTE Administration
--- NOTE | 2018-06-26 11:19 | Consultation ---
History of Present Illness Consult date: 06/26/18 Requesting physician: LINETTE FLORES Reason for consult: other (Cardiopulmonary arrest, PEA) History of present illness: Patient has been in the hospital in the IM being treated for heart failure and renal failure. Treated fro psychosis. Endstage heart failure. Has not made any true progress since admission. Was treated empirically with antibiotics, but no true source of infection Plan to initiate discussions as to hospice with family, when she became bradycardic this morning , with PEA arrest Code Blue called as patient was noted to have bradycardia and became unresponsive and pulseless. 2 rounds epi, CPR, then pulse check showed Ventricular fibrillation and 1 shock via defibrillator was delivered with return ing of pulse. Patient was intubated and IO for Medication delivery access. Patient was received in the ICU Initial stabilization Hypotensive, stat blood glucose was <20 on the istat, 2 amps D50 was administered via peripheral IV and IO in the left tibia. Placed on MVS, initial settings RR 24 Tv 450, FIO2 100%, PEEP 8. History of cardiomyopathy with EF <30% Stat labs dram, ABG via left femoral arterial puncture Norepinephrine started, 2 amps of bicarbonate administered. HISTORY PER MEDICAL RECORDS Patient is 68 yo woman with a history of hypertension, CHF and Atrial fibrilla tion who presented with altered mental status. She was climbing a fence, running wild; therefore, brought to ED. No previous psych history. CT neg. She was sedated in ED, and admitted. MRI Brain unremarkable. Patient evaluated by Neuro. Review of records show that patient was formally in Hospice and at some point had moved out of state then returned, Cardiology reports that due to her psych problems she is not a candidate for aggressive medical management, Unfortunately we cannot reach family to determine patients compliance. It does appear the patient has been non complaint with medication and on this admission shows generalized anasacar and with concern for Passive congestive hepatic failure. She has also demonstrate intermittent low grade fever on admission with concern for pneumonia LV normal size. Normal LV wall thickness. Severe global LV hypokinesis. Systolic and diastolic septal flattening c/w RV volume and pressure overload. LVEF is 21%. EF 20 - 25%. LVEF severely decreased. Grade III (severe) diastolic dysfunction c/w restrictive physiology. RV moderately dilated. RV wall motion normal. RV systolic function is normal. Abnormal RV diastolic function. LA severely dilated. RA severely dilated. Tricuspid AV. AV mildly thickened. AV opens well. Trace AR. No AV stenosis. MV mildly thickened. Moderate mitral regurgitation. Tricuspid leaflets do not completely coapt. Severe TR. Estimated RAP 15 mmHg. RAP elevated. RVSP is severely elevated. RVSP is underestimated, believed to be severe Past History Past Medical History: atrial fib, arrhythmia, CAD, cancer (breast), hyperlipidemia Past Surgical History: Other (right lumpectomy for breast cancer) Social history: lives with family (Nephew. 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 denies: smoking (quit 15 years ago), alcohol abuse (Quit 15 years ago) Family history: CAD (Parents of Acute myocardial infarction), other (Father of complications of emphysema and had a myocardial infarction. She has 15 siblings and only 7 are still alive. One brother had kidney failure. A number of them had mental illnesses.) Medications and Allergies Allergies Allergy/AdvReac Type Severity Reaction Status Date / Time Penicillins Allergy Unknown Verified 09/04/17 14:11 aspirin AdvReac Nausea Verified 09/04/17 14:10 NSAIDS (Non-Steroidal AdvReac Nausea Verified 09/04/17 14:10 Anti-Inflamma Pork/Porcine Containing AdvReac Nausea Verified 11/01/17 09:04 Products Home Medications Medication Instructions Recorded Confirmed Last Taken Type Apixaban [Eliquis] 5 mg PO DAILY 09/06/17 10/31/17 Unknown History AtorvaSTATin [Lipitor] 20 mg PO DAILY 09/06/17 10/31/17 Unknown History Loperamide HCl [Loperamide] 2 mg PO DAILY 09/06/17 10/31/17 Unknown History Sertraline [Zoloft] 50 mg PO DAILY 09/06/17 10/31/17 10/17/17 10:00 History Sucralfate [Carafate] 1 gm PO DAILY 09/06/17 10/31/17 Unknown History Carvedilol [Coreg] 12.5 mg PO BID #60 tablet 09/08/17 10/31/17 Unknown Rx Lisinopril [Zestril TAB] 5 mg PO QDAY #30 tablet 09/08/17 10/31/17 Unknown Rx Doxycycline [Vibramycin CAP] 100 mg PO Q12HR #10 capsule 11/02/17 Unknown Rx Furosemide [Lasix] 20 mg PO QDAY #30 tablet 11/02/17 Unknown Rx Active Meds: Active Medications Acetaminophen (Tylenol) 650 mg PO Q4H PRN PRN Reason: Fever >101 Last Admin: 06/26/18 09:09 Dose: 650 mg Documented by: Apixaban (Eliquis) 5 mg PO Q12HR [facility]; Protocol Last Admin: 06/26/18 09:09 Dose: 5 mg Documented by: Atorvastatin Calcium (Lipitor) 20 mg PO QHS [facility] Last Admin: 06/25/18 22:20 Dose: 20 mg Documented by: Digoxin (Lanoxin) 0.125 mg PO DAILY@1700 JEANETTE Last Admin: 06/25/18 17:38 Dose: 0.125 mg Documented by: Furosemide (Lasix) 20 mg IV 0600,1800 [facility] Levofloxacin/Dextrose (Levaquin 750mg/150ml) 750 mg in 150 mls @ 100 mls/hr IV Q24HR [facility]; Protocol Last Admin: 06/26/18 09:10 Dose: 100 mls/hr Documented by: Lactulose (Cephulac) 20 gm PO Q6HR [facility] Last Admin: 06/26/18 06:57 Dose: 20 gm Documented by: Metoprolol Tartrate (Lopressor) 25 mg PO Q8H [facility] Last Admin: 06/25/18 17:39 Dose: Not Given Documented by: Ondansetron HCl (Zofran) 4 mg IV Q8H PRN PRN Reason: Nausea And Vomiting Sertraline HCl (Zoloft) 50 mg PO DAILY [facility] Last Admin: 06/25/18 10:05 Dose: 50 mg Documented by: Review of Systems ROS unobtainable: due to endotracheal tube, due to mental status Physical Examination Vital signs: Vital Signs Pulse Resp BP Pulse Ox 60 19 137/81 96 06/16/18 20:44 06/16/18 20:44 06/16/18 20:44 06/16/18 20:44 General appearance: other (orally intubated ETT 22cm at lip, unresponsive, ) Eyes: non-icteric, other (Pupils 4mm, sluggichly reacting to light) ENT: oropharynx dry Neck: supple, no lymphadenopathy, no JVD Effort: normal Ascultation: Bilateral: diminished breath sounds, rales Cardiovascular: irregular rhythm, other (S1,S2,) Gastrointestinal: normoactive bowel sounds, soft, non-tender, non-distended Extremities: no edema, cool, cyanosis Musculoskeletal: no deformities, other (left anterior tibial IO) Gait: other (unable to assess) unable to assess other (unresponsive) Results - Laboratory Findings CBC and BMP: 06/26/18 14:54 06/26/18 21:55 Metabolic acidosis, with large BE Abnormal lab findings: Abnormal Labs 06/16/18 06/16/18 06/16/18 21:05 21:43 21:43 WBC RBC Hgb Hct MCV MCH RDW [place] % (Auto) Lymph # Seg Neutrophils % Lymphocytes # (Manual) Sodium 129 L Potassium Chloride 95.3 L Carbon Dioxide 14 L BUN 23 H Creatinine Glucose 146 H POC Glucose < 40 L Lactic Acid Uric Acid Calcium Magnesium Total Bilirubin Direct Bilirubin AST Alkaline Phosphatase Ammonia Total Protein Albumin Vitamin B1 Vitamin B12 25-OH Vitamin D Total Free T4 T3 ([place]) Urine Creatinine Urine Total Protein Acetaminophen < 5.0 L 06/16/18 06/16/18 06/16/18 21:43 21:43 22:27 WBC RBC 5.70 H Hgb Hct 44.6 H MCV 78 L MCH 25 L RDW 18.7 H [place] % (Auto) Lymph # Seg Neutrophils % 78.8 H Lymphocytes # (Manual) Sodium Potassium Chloride Carbon Dioxide BUN Creatinine Glucose POC Glucose 121 H Lactic Acid Uric Acid Calcium Magnesium Total Bilirubin Direct Bilirubin AST Alkaline Phosphatase Ammonia Total Protein Albumin Vitamin B1 Vitamin B12 25-OH Vitamin D Total Free T4 1.87 H T3 (GILSON) Urine Creatinine Urine Total Protein Acetaminophen 06/16/18 06/16/18 06/17/18 22:33 23:43 03:56 WBC RBC Hgb Hct MCV MCH RDW [place] % (Auto) Lymph # Seg Neutrophils % Lymphocytes # (Manual) Sodium Potassium Chloride Carbon Dioxide BUN Creatinine Glucose POC Glucose Lactic Acid 4.40 H* 4.30 H* 3.10 H* Uric Acid Calcium Magnesium Total Bilirubin Direct Bilirubin AST Alkaline Phosphatase Ammonia Total Protein Albumin Vitamin B1 Vitamin B12 25-OH Vitamin D Total Free T4 T3 (GILSON) Urine Creatinine Urine Total Protein Acetaminophen 06/17/18 06/17/18 06/17/18 08:35 08:40 11:00 WBC RBC Hgb Hct MCV MCH RDW [place] % (Auto) Lymph # Seg Neutrophils % Lymphocytes # (Manual) Sodium Potassium Chloride Carbon Dioxide BUN Creatinine Glucose POC Glucose 56 L Lactic Acid 2.70 H* 3.40 H* Uric Acid Calcium Magnesium Total Bilirubin Direct Bilirubin AST Alkaline Phosphatase Ammonia Total Protein Albumin Vitamin B1 Vitamin B12 25-OH Vitamin D Total Free T4 T3 (GILSON) Urine Creatinine Urine Total Protein Acetaminophen 06/17/18 06/17/18 06/17/18 11:00 11:00 11:00 WBC 11.9 H RBC 5.25 H Hgb Hct MCV MCH 25 L RDW 18.6 H [place] % (Auto) Lymph # Seg Neutrophils % Lymphocytes # (Manual) Sodium 128 L Potassium Chloride 95.6 L Carbon Dioxide 15 L BUN 22 H Creatinine Glucose 110 H POC Glucose Lactic Acid Uric Acid Calcium 8.3 L Magnesium Total Bilirubin Direct Bilirubin 1.6 H AST 66 H Alkaline Phosphatase 178 H Ammonia Total Protein 4.7 L Albumin 2.4 L Vitamin B1 Vitamin B12 25-OH Vitamin D Total Free T4 T3 (GILSON) Urine Creatinine Urine Total Protein Acetaminophen 06/17/18 06/17/18 06/17/18 15:08 15:08 23:00 WBC RBC Hgb Hct MCV MCH RDW [place] % (Auto) Lymph # Seg Neutrophils % Lymphocytes # (Manual) Sodium Potassium Chloride Carbon Dioxide BUN Creatinine Glucose POC Glucose Lactic Acid 4.00 H* Uric Acid Calcium Magnesium Total Bilirubin Direct Bilirubin AST Alkaline Phosphatase Ammonia 10.0 L Total Protein Albumin Vitamin B1 Vitamin B12 25-OH Vitamin D Total Free T4 1.53 H T3 (GILSON) Urine Creatinine Urine Total Protein Acetaminophen 06/18/18 06/18/18 06/18/18 08:59 08:59 12:49 WBC RBC 5.29 H Hgb Hct MCV 78 L MCH 25 L RDW 18.4 H [place] % (Auto) Lymph # Seg Neutrophils % Lymphocytes # (Manual) Sodium 128 L Potassium 5.9 H D Chloride 96.1 L Carbon Dioxide 20 L BUN 22 H Creatinine Glucose POC Glucose 60 L Lactic Acid Uric Acid Calcium Magnesium Total Bilirubin Direct Bilirubin AST Alkaline Phosphatase Ammonia Total Protein Albumin Vitamin B1 Vitamin B12 25-OH Vitamin D Total Free T4 T3 (GILSON) Urine Creatinine Urine Total Protein Acetaminophen 06/18/18 06/19/18 06/19/18 21:28 12:14 13:23 WBC RBC Hgb Hct MCV MCH RDW [place] % (Auto) Lymph # Seg Neutrophils % Lymphocytes # (Manual) Sodium 122 L Potassium 5.4 H Chloride 95.0 L Carbon Dioxide 13 L D BUN 21 H Creatinine Glucose 119 H POC Glucose 114 H Lactic Acid Uric Acid Calcium 8.3 L Magnesium Total Bilirubin Direct Bilirubin AST Alkaline Phosphatase Ammonia Total Protein Albumin Vitamin B1 Vitamin B12 25-OH Vitamin D Total Free T4 T3 (GILSON) Urine Creatinine Urine Total Protein Acetaminophen 06/19/18 06/19/18 06/19/18 14:47 16:38 22:42 WBC RBC 5.51 H Hgb Hct 45.3 H MCV MCH 25 L RDW 18.6 H [place] % (Auto) Lymph # Seg Neutrophils % Lymphocytes # (Manual) Sodium Potassium Chloride Carbon Dioxide BUN Creatinine Glucose POC Glucose 108 H 49 L Lactic Acid Uric Acid Calcium Magnesium Total Bilirubin Direct Bilirubin AST Alkaline Phosphatase Ammonia Total Protein Albumin Vitamin B1 Vitamin B12 25-OH Vitamin D Total Free T4 T3 (GILSON) Urine Creatinine Urine Total Protein Acetaminophen 06/19/18 06/20/18 06/20/18 Unknown 07:31 16:51 WBC RBC Hgb Hct MCV MCH RDW [place] % (Auto) Lymph # Seg Neutrophils % Lymphocytes # (Manual) Sodium 132 L D Potassium Chloride 94.3 L Carbon Dioxide BUN 20 H Creatinine Glucose POC Glucose Lactic Acid Uric Acid 8.6 H Calcium Magnesium 1.30 L Total Bilirubin Direct Bilirubin AST Alkaline Phosphatase Ammonia Total Protein Albumin Vitamin B1 Vitamin B12 25-OH Vitamin D Total Free T4 T3 (GILSON) 58 L Urine Creatinine 61.7 H Urine Total Protein 32 H Acetaminophen 06/20/18 06/20/18 06/21/18 20:53 20:53 16:27 WBC RBC Hgb Hct MCV MCH RDW [place] % (Auto) Lymph # Seg Neutrophils % Lymphocytes # (Manual) Sodium Potassium Chloride Carbon Dioxide BUN Creatinine Glucose POC Glucose Lactic Acid Uric Acid 9.2 H Calcium Magnesium Total Bilirubin Direct Bilirubin AST Alkaline Phosphatase Ammonia Total Protein Albumin Vitamin B1 Vitamin B12 1598 H 25-OH Vitamin D Total 10 L Free T4 T3 (GILSON) Urine Creatinine Urine Total Protein Acetaminophen 06/21/18 06/21/18 06/21/18 16:27 16:27 16:27 WBC RBC 5.26 H Hgb Hct MCV 77 L MCH 26 L RDW 17.7 H [place] % (Auto) Lymph # Seg Neutrophils % Lymphocytes # (Manual) Sodium 130 L Potassium Chloride 95.6 L Carbon Dioxide BUN 24 H Creatinine Glucose POC Glucose Lactic Acid Uric Acid Calcium Magnesium Total Bilirubin Direct Bilirubin AST Alkaline Phosphatase Ammonia Total Protein Albumin Vitamin B1 <6 L Vitamin B12 25-OH Vitamin D Total Free T4 T3 ([facility]) Urine Creatinine Urine Total Protein Acetaminophen 06/21/18 06/22/18 06/23/18 21:44 21:42 14:54 WBC RBC 5.07 H Hgb Hct MCV 78 L MCH 25 L RDW 18.5 H [place] % (Auto) 12.3 H Lymph # 1.0 L Seg Neutrophils % Lymphocytes # (Manual) Sodium Potassium Chloride Carbon Dioxide BUN Creatinine Glucose POC Glucose 126 H 114 H Lactic Acid Uric Acid Calcium Magnesium Total Bilirubin Direct Bilirubin AST Alkaline Phosphatase Ammonia Total Protein Albumin Vitamin B1 Vitamin B12 25-OH Vitamin D Total Free T4 T3 ([facility]) Urine Creatinine Urine Total Protein Acetaminophen 06/23/18 06/25/18 06/25/18 14:54 00:00 00:00 WBC 3.6 L RBC 5.31 H Hgb Hct MCV 77 L MCH 26 L RDW 19.0 H [place] % (Auto) 10.2 H Lymph # Seg Neutrophils % Lymphocytes # (Manual) Sodium 132 L 131 L Potassium 3.5 L Chloride 91.5 L 93.5 L Carbon Dioxide BUN 19 H 21 H Creatinine Glucose POC Glucose Lactic Acid Uric Acid Calcium 8.1 L Magnesium Total Bilirubin 2.80 H 2.70 H Direct Bilirubin AST 52 H 81 H Alkaline Phosphatase 231 H 243 H Ammonia Total Protein 5.5 L 5.5 L Albumin 2.8 L 2.7 L Vitamin B1 Vitamin B12 25-OH Vitamin D Total Free T4 T3 (GILSON) Urine Creatinine Urine Total Protein Acetaminophen 06/25/18 06/25/18 06/25/18 16:02 16:02 16:18 WBC 3.9 L RBC 5.78 H Hgb 14.6 H Hct 45.4 H MCV MCH 25 L RDW 19.2 H [place] % (Auto) Lymph # Seg Neutrophils % Lymphocytes # (Manual) 1.1 L Sodium 131 L Potassium Chloride 90.0 L Carbon Dioxide BUN 25 H Creatinine 1.4 H Glucose POC Glucose Lactic Acid 4.00 H* Uric Acid Calcium Magnesium Total Bilirubin 3.10 H Direct Bilirubin AST 68 H Alkaline Phosphatase 296 H Ammonia Total Protein 6.1 L Albumin 3.3 L Vitamin B1 Vitamin B12 25-OH Vitamin D Total Free T4 T3 ([facility]) Urine Creatinine Urine Total Protein Acetaminophen 06/25/18 21:06 WBC RBC Hgb Hct MCV MCH RDW [place] % (Auto) Lymph # Seg Neutrophils % Lymphocytes # (Manual) Sodium Potassium Chloride Carbon Dioxide BUN Creatinine Glucose POC Glucose Lactic Acid 6.40 H* Uric Acid Calcium Magnesium Total Bilirubin Direct Bilirubin AST Alkaline Phosphatase Ammonia Total Protein Albumin Vitamin B1 Vitamin B12 25-OH Vitamin D Total Free T4 T3 ([facility]ILSON) Urine Creatinine Urine Total Protein Acetaminophen - Diagnostic Findings Chest x-ray: image reviewed (Cardiomegally wiht interstial pulmonary infiltrates) Assessment and Plan Cardiopulmonary arrest Acute hypoxic respiratory failure Hypoglycemia Altered mental status, with acute encephalopathy: AMY SIRS Shock syndrome Persistently elevated Lactic acidosis Psychosis Permanent Atrial fib/flutter Acute on chronic systolic CHF of EF 20-25%, Stage D non ischemic cardiomyopathy per cardiology- possible end-stage cardiomyopathy Hyponatremia Elevated LFT,with elevated T. Bili Likely congestive hepatopathy, Severe protein calorie malnutrition Hypokalemia -VAP bundle addressed -MVS support -Supplemental oxygen keep O2 sat>0% -Start vasopressor support to keep MAP >65 -Lung protective strategies -Get TSH, free T4 to r/o thyroid dysfunction as cause for acute psychosis -ABGs and CXR -Anticoagulated on Eliquis -Stress ulcer prophylaxis -Place NGT for nutritional support -Place avila catheter -Strict intake and output monitoring in this critically ill patient in shock with acute renal failure -Dextrose infusion with accucheck monitoring. -Avoid hypoglycemia -Correct electrolytes as indicated -No sedation for now to allow for evaluation of neurologic status post code -With Vfib arrest would have benefited from targeted temperature management -Critical bundles addressed -May require ionotropic support -Stop all diuretics, in view of hemodynamic instability -Get tracheal aspirate for cultures Discussed extensively with Dr. Flores at the bedside Will need to get CM/SW to ind family so as to address code status and goals of care CONDITION: CRITICAL PROGNOSIS: GUARDED TO POOR CODE STATUS: FULL CODE The high probability of a clinically significant, sudden or life threatening deterioration of the [cardiovascular, pulmonary, hepatic, neurology, endocrine] system(s) required my full and direct attention, intervention and personal management. The aggregate critical care time was [75] minutes. This time is in addition to time spent performing reported procedures but includes the following: [x] Data Review and interpretation [x] Patient assessment and monitoring of vital signs [x] Documentation [x] Medication orders and management . The high probability of a clinically significant, sudden or life threatening deterioration of the [CARDIAC] system(s) required my full and direct attention, intervention and personal management. The aggregate critical care time was [75] minutes. This time is in addition to time spent performing reported procedures but includes the following: [X] Data Review and interpretation [X] Patient assessment and monitoring of vital signs [X] Documentation [X] Medication orders and management
--- NOTE | 2018-06-26 11:27 | Event Note ---
Date: 06/26/18 Code Conrado called as patient was noted to have bradycardia and became unresponsive and pulseless. 2 rounds epi, CPR, then pulse check showed Ventric ular fibrillation and 1 shock via defibrillator was delivered with returning of pulse. Patient was intubated with the help of the ED physician who also graciously placed and IO for Medication delivery access. ?if secondary to effect from haldol, although was given >1hr before the reaction was noted. Med was given as patient remains confused and needed a CT brain to determine cause of worsening encephalopathy Attempt has been made to notify family and no answer. The nurse and myself called Patient will be transferred to the ICU and Extra Hand Dr Nick has been consulted . The high probability of a clinically significant, sudden or life threatening deterioration of the [CARDIAC] system(s) required my full and direct attention, intervention and personal management. The aggregate critical care time was [45] minutes. This time is in addition to time spent performing reported procedures but includes the following: [X] Data Review and interpretation [X] Patient assessment and monitoring of vital signs [X] Documentation [X] Medication orders and management
[2018-06-26] MEDS ORDERED: D50W (25GM) Syringe IV NR ×2 (11:32→11:34)
[2018-06-26] MEDS ORDERED: LEVOPHED DRIP 4 MG/NS 250 ML 4 MG/250 ML BAG IV ONE (11:41)
--- NOTE | 2018-06-26 11:53 | Event Note ---
Date: 06/26/18 Responded to overhead call for CODE BLUE in the intensive care unit. Upon arrival, patient, GCS of 3, receiving [id number] ventilation. As per nursing team, respiratory therapy, no pulses. CPR, ACLS initiated, and directed by my colleague, Dr. Kathy Flores. Patient intubated by myself using direct laryngoscopy, without need for rapid sequence medications, utilizing a Ontiveros 3 curved blade, and inserted a 7.5 endotracheal tube, with one attempt, with no difficulty. Endotracheal tube placement is confirmed through direct visualization of the tube passing through the vocal cords, post intubation breath sounds, post intubation capnography color change, and endotracheal tube placement confirmation on postintubation x-ray. A left lower extremity intraosseous line is placed after standard aseptic preparation, 1 is a 45 mm 15-gauge intraosseous line, which may be used for the next 24 hours for vasopressors if necessary. After line placement, aspirated bone marrow contents, line flushes without difficulty, there is no evidence of extravasation at this time. I will defer post intubation, and postarrest management to my [facility], [place] [facility] medicine colleagues. Prognosis guarded
[2018-06-26] MEDS ORDERED: Vasostrict 20 UNIT in NACL 0.9% 100 ML IV SCH (12:00)
[2018-06-26] MEDS: LEVOPHED DRIP 4 MG/NS 250 ML 4 MG/250 ML BAG IV SCH ×3 (12:00→19:34)
[2018-06-26 12:14] LABS: Hematocrit 38.9 % (30.3-42.9); Hemoglobin 12.1 gm/dl (10.1-14.3); Mean Corpuscular HGB Conc 31 % (30-34); Mean Corpuscular Volume 83 fl (79-97); Red Cell Distribution Width 19.2 % (13.2-15.2)
[2018-06-26] MEDS: LOPRESSOR PO SCH ×2 (12:17→17:01)
[2018-06-26] MEDS: ZOLOFT PO SCH (12:17)
[2018-06-26] MEDS: SODIUM BICARBONATE 150 MEQ in D5W 1,000 ML IV SCH (12:23)
--- NOTE | 2018-06-26 12:23 | XRay Report ---
PROCEDURE: XR CHEST 1V AP TECHNIQUE: Chest radiograph single view. HISTORY: POST INTUBATION COMPARISONS: None . FINDINGS: Heart: Mild cardiomegaly is again noted. Mediastinum/Vessels: Normal. Lungs/Pleural space: Subsegmental atelectatic changes are noted in the left midlung.. Bony thorax: No acute osseous abnormality. Life support devices: Endotracheal tube is terminating about 3.4 cm above the priscila.. IMPRESSION: Endotracheal tube is terminating 3.4 cm above the priscila. This document is electronically signed by Flavio Feng MD., June 26 2018 12:21:40 PM ET
[2018-06-26 12:28] LABS: Albumin 2.2 g/dL (3.9-5); Calcium 7.9 mg/dL (8.4-10.2)
[2018-06-26] MEDS ORDERED: PARLODEL PO ONE (12:30)
--- NOTE | 2018-06-26 13:45 | Progress Note ---
Assessment and Plan 1. S/P Cardiac arrest 2. Respiratory failure on mechanical ventilator 3. Chronic combined systolic and diastolic heart failure 4. Dilated cardiomyopathy LV ejection fraction 20-25% 5. Severe depression 6. Chronic atrial fibrillation 7. AMS Plan. Patient is currently on IV pressor agents. CXR shows bilateral pulmonary interstitial edema Wean off pressor agents and vent as tolerated Subjective Date of service: 06/26/18 Principal diagnosis: altered mental status, psychosis, chronic systolic heart failure, Interval history: Events over the last 24 hours noted patient is post cardiopulmonary arrest now intubated on mechanical ventilator Objective Vital Signs Pulse Resp BP Pulse Ox 06/26/18 11:51 97 H 100 06/26/18 11:30 105 H 93 06/26/18 07:00 112 H 06/26/18 06:01 95 H 14 119/87 06/26/18 05:00 92 H 12 108/78 06/26/18 04:01 107 H 17 118/71 06/26/18 03:01 105 H 14 120/89 06/26/18 02:00 103 H 15 117/87 06/26/18 01:01 101 H 20 102/86 06/26/18 00:01 99 H 13 109/87 100 06/25/18 23:23 91 H 15 95/71 06/25/18 23:01 108 H 18 87/63 06/25/18 22:01 102 H 22 115/76 06/25/18 22:00 18 06/25/18 21:51 93 H 11 L 124/56 06/25/18 21:41 94 H 17 124/56 06/25/18 21:31 99 H 16 124/56 06/25/18 21:21 101 H 14 124/56 06/25/18 21:11 109 H 27 H 128/74 100 06/25/18 21:00 111 H 18 128/74 06/25/18 20:51 94 H 17 124/56 06/25/18 20:41 105 H 16 124/56 06/25/18 20:31 97 H 18 124/56 06/25/18 20:21 101 H 17 124/56 06/25/18 20:11 114 H 22 124/56 06/25/18 20:01 115 H 22 124/56 97 06/25/18 19:51 94 H 18 113/81 06/25/18 19:41 106 H 24 113/81 06/25/18 19:31 101 H 13 115/66 60 L 06/25/18 19:21 108 H 16 115/66 06/25/18 19:11 105 H 21 115/66 100 06/25/18 19:01 125 H 24 115/66 84 06/25/18 18:51 114 H 13 115/66 91 06/25/18 18:41 126 H 17 115/66 06/25/18 18:31 107 H 15 115/66 80 L 06/25/18 18:21 106 H 14 115/66 98 06/25/18 18:11 118 H 23 115/66 06/25/18 18:00 101 H 13 115/66 06/25/18 17:51 101 H 16 109/58 79 L 06/25/18 17:41 94 H 12 109/58 06/25/18 17:39 109/58 06/25/18 17:38 105 H 109/58 06/25/18 17:31 93 H 15 109/58 06/25/18 17:21 98 H 11 L 109/58 06/25/18 17:11 102 H 21 94/62 06/25/18 17:01 92 H 13 94/62 06/25/18 16:51 95 H 15 94/62 06/25/18 16:41 95 H 9 L 94/62 06/25/18 16:31 100 H 12 94/62 06/25/18 16:20 87 7 L 94/62 06/25/18 16:10 91 H 15 94/62 06/25/18 16:01 90 12 94/62 69 L 06/25/18 15:51 93 H 14 94/62 06/25/18 15:41 94 H 13 94/62 06/25/18 15:31 94 H 14 94/62 06/25/18 15:21 86 22 94/62 34 L 06/25/18 15:11 105 H 21 94/62 06/25/18 15:00 92 H 25 H 94/62 06/25/18 14:51 102 H 15 86/53 06/25/18 14:41 85 23 86/53 06/25/18 14:31 92 H 14 86/53 06/25/18 14:21 86 25 H 86/53 06/25/18 14:11 83 19 86/53 06/25/18 14:00 91 H 16 97/50 06/25/18 13:50 85 14 86/53 - Physical Examination General: No Apparent Distress HEENT: Positive: PERRL Neck: Positive: trachea midline Cardiac: Positive: Regular Rate, S3, PMI, Dilated, Laterally Displaced Lungs: Positive: clear to auscultation, No Wheeze, Rales, Rhonchi Neuro: Positive: Grossly Intact Abdomen: Positive: Unremarkable, Soft Skin: Positive: Clear Extremities: Present: +1 Edema - Labs and Meds Cardiac Enzymes 06/25/18 06/26/18 Range/Units 16:18 11:37 AST 68 H 98 H (5-40) units/L CBC 06/25/18 06/26/18 Range/Units 16:02 11:37 WBC 3.9 L 9.4 (4.5-11.0) K/mm3 RBC 5.78 H 4.70 (3.65-5.03) M/mm3 Hgb 14.6 H 12.1 (10.1-14.3) gm/dl Hct 45.4 H 38.9 D (30.3-42.9) % Plt Count 197 (140-440) K/mm3 Comprehensive Metabolic Panel 06/25/18 06/26/18 Range/Units 16:18 11:37 Sodium 131 L 129 L (137-145) mmol/L Potassium 4.4 4.0 (3.6-5.0) mmol/L Chloride 90.0 L 87.0 L (98-107) mmol/L Carbon Dioxide 24 11 L D (22-30) mmol/L BUN 25 H 31 H (7-17) mg/dL Creatinine 1.4 H 1.9 H (0.7-1.2) mg/dL Glucose 86 206 H (65-100) mg/dL Calcium 8.7 7.9 L (8.4-10.2) mg/dL AST 68 H 98 H (5-40) units/L ALT 35 34 (7-56) units/L Alkaline Phosphatase 296 H 196 H (35-129) units/L Total Protein 6.1 L 4.3 L D (6.3-8.2) g/dL Albumin 3.3 L 2.2 L (3.9-5) g/dL - Allied health notes Allied health notes reviewed: nursing
--- NOTE | 2018-06-26 13:48 | XRay Report ---
PROCEDURE: XR ABDOMEN 1V AP TECHNIQUE: Abdominal radiograph, single view. HISTORY: ngt placement COMPARISONS: None . FINDINGS: Bowel gas pattern: Visualized colon is mildly dilated. . Masses or calcifications: None . Bony structures: No significant abnormality . Other: Nasogastric tube is terminating in the stomach with its side-port at the level of gastroesoph ageal junction. . IMPRESSION: Nasogastric tube is terminating in the stomach with the side-port at the gastroesophagea l junction.. This document is electronically signed by Flavio Feng MD., June 26 2018 01:46:05 PM ET
[2018-06-26] MEDS ORDERED: ADRENALIN ONE (14:43)
[2018-06-26] MEDS ORDERED: ATROPINE 0.1% (CARDIAC) ONE (14:43)
[2018-06-26 14:52] LABS: Band Neutrophils # (Manual) 0.1 K/mm3; Eosinophils % (Manual) 0 % (0.0-4.3); Total Cells Counted 100
[2018-06-26 14:53] LABS: Hypochromasia 1+; Platelet Estimate Consistent w Auto; Target Cells 1+
[2018-06-26 15:31] LABS: Platelet Count 139 K/mm3 (140-440)
[2018-06-26 15:32] LABS: Hematocrit 45.6 % (30.3-42.9); Hemoglobin 14.5 gm/dl (10.1-14.3); Mean Corpuscular HGB Conc 32 % (30-34); Mean Corpuscular Volume 81 fl (79-97); Red Blood Count 5.66 M/mm3 (3.65-5.03); Red Cell Distribution Width 19.4 % (13.2-15.2)
[2018-06-26 16:49] LABS: Total Cells Counted 100
[2018-06-26 16:50] LABS: Band Neutrophils # (Manual) 0.1 K/mm3; Basophils % (Manual) 0 % (0.0-1.8); Eosinophils % (Manual) 0 % (0.0-4.3); Hypochromasia 1+; Poikilocytosis 1+; Target Cells 1+
[2018-06-26 16:51] LABS: Platelet Estimate Consistent w Auto
[2018-06-26 16:55] LABS: Platelet Count 185 K/mm3 (140-440)
[2018-06-26] MEDS: LANOXIN PO SCH (17:26)
[2018-06-26 20:56] LABS: BUN/Creatinine Ratio TNR; Blood Urea Nitrogen TNR mg/dL (7-17); Calcium TNR mg/dL (8.4-10.2)
[2018-06-26 20:57] LABS: Creatine Kinase MB TNR ng/mL (0.0-4.0)
[2018-06-26 20:58] LABS: Hemolysis Index TNR
[2018-06-26 23:20] LABS: Calcium 8.3 mg/dL (8.4-10.2)
[2018-06-27] MEDS ORDERED: NACL 0.9% 1000 ML ONE (00:24)
[2018-06-27] MEDS: LOPRESSOR PO SCH ×5 (02:22→19:34)
[2018-06-27] MEDS: LEVOPHED DRIP 4 MG/NS 250 ML 4 MG/250 ML BAG IV SCH ×3 (04:25→22:10)
[2018-06-27] MEDS: SODIUM BICARBONATE 150 MEQ in D5W 1,000 ML IV SCH ×2 (04:25→21:40)
[2018-06-27] MEDS: CEPHULAC PO SCH ×3 (05:58→19:32)
--- NOTE | 2018-06-27 08:58 | Progress Note ---
Assessment and Plan Assessment and plan: Patient is 68 yo woman with a history of hypertension, CHF and Atrial fibrillation who presented with altered mental status. She was climbing a fence, running wild; therefore, brought to ED. No previous psych history. CT neg. She was sedated in ED, and admitted. MRI Brain unremarkable. Patient evaluated by Neuro. Review of records show that patient was formally in Hospice and at some point had moved out of state then returned, Cardiology reports that due to her psych problems she is not a candidate for aggressive medical management, Unfortunately we cannot reach family to determine patients compliance. It does appear the patient has been non complaint with medication and on this admission shows generalized anasacar and with concern for Passive congestive hepatic failure. She has also demonstrate intermittent low grade fever on admission with concern for pneumonia. * Patient was treated with initially for SIRS secondary to Pneumonia and also Atrial Fibrillation and following cardiology evaluation, and recommended conservative management due to the patients psychiatric issues. * She was also initially 1013 and it was rescinded * During the stay, and review of all records, we attempted to contact family but to no avail to discuss hospice. * She was noted to be hypotensive and due to the balance in fluids considering her Cardiac status, she received a few small bolus, but remained with i ntermittent Encephalopathy. * She received Haldol in bid to obtain CT head but had PEA arrest a few hours later * Code Blue called as patient was noted to have bradycardia and became unresponsive and pulseless. 2 rounds epi, CPR, then pulse check showed Ventricular fibrillation and 1 shock via defibrillator was delivered with returning of pulse. Patient was intubated and IO for Medication delivery access. IMPRESSION: * Focal infiltrate in the left midlung. Differential diagnosis includes postinflammatory scarring and/or subsegmental atelectasis. LV normal size. Normal LV wall thickness. Severe global LV hypokinesis. Systolic and diastolic septal flattening c/w RV volume and pressure overload. LVEF is 21%. EF 20 - 25%. LVEF severely decreased. Grade III (severe) diastolic dysfunction c/w restrictive physiology. RV moderately dilated. RV wall motion normal. RV systolic function is normal. Abnormal RV diastolic function. LA severely dilated. RA severely dilated. Tricuspid AV. AV mildly thickened. AV opens well. Trace AR. No AV stenosis. MV mildly thickened. Moderate mitral regurgitation. Tricuspid leaflets do not completely coapt. Severe TR. Estimated RAP 15 mmHg. RAP elevated. RVSP is severely elevated. RVSP is underestimated, believed to be severe /Acute Respiratory failure following Cardiac Arrest -VAP precautions -Drying Machine Tender following -Attempt weaning today if possible /Hypoglycemia -Blood glucose was 20 during the code -D50 given with good result /Altered mental status, with acute encephalopathy: psych and Neurology are following ?cerebral hypoperfuison contributing vs sepsis normal, Attempt CT head today Haldol PRN /AMY-SECONDARY TO VASOMOTOR NEPHROPATHY Hold lasix Give additional fluids Repeat in AM /SIRS ?underlying PNA doubt based on xray review and lack of fever or leukocytoisis Recheck chest xray Monitor Electrolytes Continue empiric levaquin, she got a few doses on admission check blood culture- NO GROWTH /shock syndrome -Give 250cc of fluids bolus AND Additional today -Decrease BB to 25mg q8hr -Prior Echo reported noted as documented by cardiology /Persistently elevated Lactic acidosis -Likely secondary to hypoperfusion /Psychosis: Psych following, rescinded 1013 /Permanent Atrial fib/flutter: On metoprolol, Eliquis resumed /Acute on chronic systolic CHF of EF 20-25%, /Stage D non ischemic cardiomyopathy per cardiology- possible end-stage cardiomyopathy patient has been on hospice before, Continue her Lasix, beta puma, and ACEI, she is not allergic to it. Unable to get any history Per cardiology not a candidate for aggressive work up and should consider palliative care per cardiology she was in [facility] apr [facility] and discharged with home hospice /Hyponatremia, due to CHF, na 131 today improved from 122: Nephrology following /Elevated LFT,with elevated T. Bili Likely congestive hepatopathy, Will obtain RUQ US as this will be more tolerated than CT abdomen and pelvis in an agitated pt We will trend. Obtain GI consult if still trending up, although currently stable /Severe protein calorie malnutrition: Crew Scheduler consulted /Hypokalemia: replace DVT prophylaxis: Patient is on Eliquis POOR PROGNOSIS. Will discuss hospice. Discussed with cardiology and Renal. The high probability of a clinically significant, sudden or life threatening deterioration of the [cardiac, pulmonary, hepatic] system(s) required my full and direct attention, intervention and personal management. The aggregate critical care time was [35] minutes. This time is in addition to time spent performing reported procedures but includes the following: [x] Data Review and interpretation [x] Patient assessment and monitoring of vital signs [x] Documentation [x] Medication orders and management History Interval history: Patient seen and examined this morning, remains intubated, but awake and followi ng some commands. Although still with some element of confusion. No other adverse event reported by Nursing staff. Hospitalist Physical - Physical exam Narrative exam: Constitutional: chronically ill appearing, lethargic ON Mechanical ventilatory support Head: Normocephalic atraumatic Eyes: Pupils are equal round and reactive to light, Jaundice Nose: No enlarged turbinates, no septal deviation. Mouth: ETT inplace. Moist mucous membranes. Neck: Supple no thyromegaly. No bruit. No JVD Heart: Regular rate and rhythm, S1-S2 displaced towards the apex. No rubs murmurs or gallop Lungs: Clear to auscultation bilaterally. no rales or rhonchi Abdomen: Soft, nontender. Bowel sound are present. Extremities: 1+ pitting pedal edema, no cyanosis, no clubbing. generalized anasacar Neuro: awake, can not fully assess orientation due to current status Skin: No rashes or hyperpigmented spots Musculoskeletal system: No joint pain or swelling Hematological: No petechia or subcutanous hemorrhages. Immunological: No multiple septic spots on the skin Lymphatic: No generalized lymphadenopathy Psychiatry: unable to fully assess - Constitutional Vitals: Temp Pulse Resp BP Pulse Ox 98.9 F 92 H 28 H 113/64 100 06/27/18 04:00 06/27/18 08:40 06/27/18 07:00 06/27/18 08:40 06/27/18 08:40 General appearance: Present: no acute distress Results - Labs CBC & Chem 7: 06/26/18 14:54 06/26/18 21:55 Labs: Laboratory Last Values WBC 14.2 K/mm3 (4.5-11.0) H 06/26/18 14:54 RBC 5.66 M/mm3 (3.65-5.03) H 06/26/18 14:54 Hgb 14.5 gm/dl (10.1-14.3) H 06/26/18 14:54 Hct 45.6 % (30.3-42.9) H D 06/26/18 14:54 MCV 81 fl (79-97) 06/26/18 14:54 MCH 26 pg (28-32) L 06/26/18 14:54 MCHC 32 % (30-34) 06/26/18 14:54 RDW 19.4 % (13.2-15.2) H 06/26/18 14:54 Plt Count 185 K/mm3 (140-440) 06/26/18 14:54 Lymph % (Auto) 34.2 % (13.4-35.0) 06/25/18 00:00 [place] % (Auto) 10.2 % (0.0-7.3) H 06/25/18 00:00 Eos % (Auto) 0.7 % (0.0-4.3) 06/25/18 00:00 Baso % (Auto) 0.6 % (0.0-1.8) 06/25/18 00:00 Lymph # 1.2 K/mm3 (1.2-5.4) 06/25/18 00:00 Sab[place] # 0.4 K/mm3 (0.0-0.8) 06/25/18 00:00 Eos # 0.0 K/mm3 (0.0-0.4) 06/25/18 00:00 Baso # 0.0 K/mm3 (0.0-0.1) 06/25/18 00:00 Add Manual Diff Complete 06/26/18 14:54 Total Counted 100 06/26/18 14:54 Seg Neutrophils % 54.3 % (40.0-70.0) 06/25/18 00:00 Seg Neuts % (Manual) 88.0 % (40.0-70.0) H 06/26/18 14:54 Band Neutrophils % 1.0 % 06/26/18 14:54 Lymphocytes % (Manual) 5.0 % (13.4-35.0) L 06/26/18 14:54 Reactive Lymphs % (Man) 0 % 06/26/18 14:54 Monocytes % (Manual) 6.0 % (0.0-7.3) 06/26/18 14:54 Eosinophils % (Manual) 0 % (0.0-4.3) 06/26/18 14:54 Basophils % (Manual) 0 % (0.0-1.8) 06/26/18 14:54 Metamyelocytes % 0 % 06/26/18 14:54 Myelocytes % 0 % 06/26/18 14:54 Promyelocytes % 0 % 06/26/18 14:54 Blast Cells % 0 % 06/26/18 14:54 Nucleated RBC % Not Reportable 06/26/18 14:54 Seg Neutrophils # 2.0 K/mm3 (1.8-7.7) 06/25/18 00:00 Seg Neutrophils # Man 12.5 K/mm3 (1.8-7.7) H 06/26/18 14:54 Band Neutrophils # 0.1 K/mm3 06/26/18 14:54 Lymphocytes # (Manual) 0.7 K/mm3 (1.2-5.4) L 06/26/18 14:54 Abs React Lymphs (Man) 0.0 K/mm3 06/26/18 14:54 Monocytes # (Manual) 0.9 K/mm3 (0.0-0.8) H 06/26/18 14:54 Eosinophils # (Manual) 0.0 K/mm3 (0.0-0.4) 06/26/18 14:54 Basophils # (Manual) 0.0 K/mm3 (0.0-0.1) 06/26/18 14:54 Metamyelocytes # 0.0 K/mm3 06/26/18 14:54 Myelocytes # 0.0 K/mm3 06/26/18 14:54 Promyelocytes # 0.0 K/mm3 06/26/18 14:54 Blast Cells # 0.0 K/mm3 06/26/18 14:54 WBC Morphology Not Reportable 06/26/18 14:54 Hypersegmented Neuts Not Reportable 06/26/18 14:54 Hyposegmented Neuts Not Reportable 06/26/18 14:54 Hypogranular Neuts Not Reportable 06/26/18 14:54 Smudge Cells Not Reportable 06/26/18 14:54 Toxic Granulation Not Reportable 06/26/18 14:54 Toxic Vacuolation Not Reportable 06/26/18 14:54 Dohle Bodies Not Reportable 06/26/18 14:54 Pelger-Huet Anomaly Not Reportable 06/26/18 14:54 Sushma Rods Not Reportable 06/26/18 14:54 Platelet Estimate Consistent w auto 06/26/18 14:54 Clumped Platelets Not Reportable 06/26/18 14:54 Plt Clumps, EDTA Not Reportable 06/26/18 14:54 Large Platelets Not Reportable 06/26/18 14:54 Giant Platelets Not Reportable 06/26/18 14:54 Platelet Satelliting Not Reportable 06/26/18 14:54 Plt Morphology Comment Not Reportable 06/26/18 14:54 RBC Morphology Not Reportable 06/26/18 14:54 Dimorphic RBCs Not Reportable 06/26/18 14:54 Polychromasia Not Reportable 06/26/18 14:54 Hypochromasia 1+ 06/26/18 14:54 Poikilocytosis 1+ 06/26/18 14:54 Anisocytosis Not Reportable 06/26/18 14:54 Microcytosis Not Reportable 06/26/18 14:54 Macrocytosis Not Reportable 06/26/18 14:54 Spherocytes Not Reportable 06/26/18 14:54 Pappenheimer Bodies Not Reportable 06/26/18 14:54 Sickle Cells Not Reportable 06/26/18 14:54 Target Cells 1+ 06/26/18 14:54 Tear Drop Cells Not Reportable 06/26/18 14:54 Ovalocytes Not Reportable 06/26/18 14:54 Helmet Cells Not Reportable 06/26/18 14:54 [place] [employer] Bodies Not Reportable 06/26/18 14:54 Dawson Rings Not Reportable 06/26/18 14:54 Baldwin Cells Not Reportable 06/26/18 14:54 Bite Cells Not Reportable 06/26/18 14:54 Crenated Cell Not Reportable 06/26/18 14:54 Elliptocytes Not Reportable 06/26/18 14:54 Acanthocytes (Spur) Not Reportable 06/26/18 14:54 Rouleaux Not Reportable 06/26/18 14:54 Hemoglobin C Crystals Not Reportable 06/26/18 14:54 Schistocytes Not Reportable 06/26/18 14:54 Malaria parasites Not Reportable 06/26/18 14:54 Saqib Bodies Not Reportable 06/26/18 14:54 Hem Pathologist Commnt No 06/26/18 14:54 POC ABG pH 7.389 (7.35-7.45) 06/26/18 16:01 POC ABG pCO2 34.0 (35-45) L 06/26/18 16:01 POC ABG pO2 73 (80-105) L 06/26/18 11:51 POC ABG HCO3 20.5 (22-26 mml/L) 06/26/18 16:01 POC ABG Total CO2 22 (23-27mmol/L) 06/26/18 16:01 POC ABG O2 Sat 100 06/26/18 16:01 POC ABG Base Excess -4 ((-2) - (+3)mmol/L) 06/26/18 16:01 FiO2 100 % 06/26/18 16:01 Sodium 135 mmol/L (137-145) L 06/26/18 21:55 Potassium 3.8 mmol/L (3.6-5.0) 06/26/18 21:55 Chloride 91.7 mmol/L (98-107) L 06/26/18 21:55 Carbon Dioxide 23 mmol/L (22-30) D 06/26/18 21:55 Anion Gap 24 mmol/L 06/26/18 21:55 BUN 35 mg/dL (7-17) H 06/26/18 21:55 Creatinine 2.3 mg/dL (0.7-1.2) H 06/26/18 21:55 Estimated GFR 26 ml/min 06/26/18 21:55 BUN/Creatinine Ratio 15 % 06/26/18 21:55 Glucose 147 mg/dL (65-100) H 06/26/18 21:55 POC Glucose 93 (70-105) 06/27/18 05:28 Hemoglobin A1c 5.5 % (4-6) 06/17/18 15:08 Osmolality 276 Mosm/kg 06/20/18 07:31 Lactic Acid 11.90 mmol/L (0.7-2.0) H* 06/26/18 15:10 Uric Acid 9.2 mg/dL (3.5-7.6) H 06/21/18 16:27 Calcium 8.3 mg/dL (8.4-10.2) L 06/26/18 21:55 Phosphorus 2.50 mg/dL (2.5-4.5) 06/20/18 07:31 Magnesium 1.70 mg/dL (1.7-2.3) 06/21/18 16:27 Total Bilirubin 2.90 mg/dL (0.1-1.2) H 06/26/18 11:37 Direct Bilirubin 1.6 mg/dL (0-0.2) H 06/17/18 11:00 Indirect Bilirubin -1.4 mg/dL 06/17/18 11:00 AST 98 units/L (5-40) H 06/26/18 11:37 ALT 34 units/L (7-56) 06/26/18 11:37 Alkaline Phosphatase 196 units/L (35-129) H 06/26/18 11:37 Ammonia 38.0 umol/L (25-60) 06/25/18 16:02 Total Creatine Kinase TNR 06/26/18 19:52 CK-MB (CK-2) TNR 06/26/18 19:52 CK-MB (CK-2) Rel Index TNR 06/26/18 19:52 Troponin T TNR 06/26/18 19:52 Total Protein 4.3 g/dL (6.3-8.2) L D 06/26/18 11:37 Albumin 2.2 g/dL (3.9-5) L 06/26/18 11:37 Albumin/Globulin Ratio 1.0 % 06/26/18 11:37 Vitamin B1 <6 nmol/L (8-30) L 06/21/18 16:27 Vitamin B12 1598 pg/mL (211-911) H 06/20/18 20:53 25-OH Vitamin D Total 10 ng/mL (30-100) L 06/20/18 20:53 25-Hydroxy Vitamin D2 . 06/20/18 20:53 25-Hydroxy Vitamin D3 . 06/20/18 20:53 Folate 14.18 ng/mL (7.3-26.0) 06/20/18 20:53 TSH 1.770 mlU/mL (0.270-4.200) 06/17/18 23:00 Free T4 1.53 ng/dL (0.76-1.46) H 06/17/18 23:00 T3 (GILSON) 58 ng/dL (76-181) L 06/20/18 16:51 Urine Color Caryl (Yellow) 06/16/18 Unknown Urine Turbidity Clear (Clear) 06/16/18 Unknown Urine pH 5.0 (5.0-7.0) 06/16/18 Unknown Ur Specific [place] 1.025 (1.003-1.030) 06/16/18 Unknown Urine Protein 100 mg/dl mg/dL (Negative) 06/16/18 Unknown Urine Glucose (UA) 50 mg/dL (Negative) 06/16/18 Unknown Urine Ketones Neg mg/dL (Negative) 06/16/18 Unknown Urine Blood Neg (Negative) 06/16/18 Unknown Urine Nitrite Neg (Negative) 06/16/18 Unknown Urine Bilirubin Neg (Negative) 06/16/18 Unknown Urine Urobilinogen 4.0 mg/dL (<2.0) 06/16/18 Unknown Ur Leukocyte Esterase Neg (Negative) 06/16/18 Unknown Urine WBC (Auto) 4.0 /HPF (0.0-6.0) 06/16/18 Unknown Urine RBC (Auto) 5.0 /HPF (0.0-6.0) 06/16/18 Unknown U Epithel Cells (Auto) 7.0 /HPF (0-13.0) 06/16/18 Unknown Hyaline Casts 49 /LPF 06/16/18 Unknown Urine Mucus Few /HPF 06/16/18 Unknown Urine Osmolality 413 Mosm/kg 06/19/18 Unknown Urine Creatinine 61.7 mg/dL (0.1-20.0) H 06/19/18 Unknown Urine Total Protein 32 mg/dL (5-11.8) H 06/19/18 Unknown Salicylates 5.5 mg/dL (2.8-20.0) 06/16/18 21:43 Urine Opiates Screen Presumptive negative 06/16/18 Unknown Urine Methadone Screen Presumptive negative 06/16/18 Unknown Acetaminophen < 5.0 ug/mL (10.0-30.0) L 06/16/18 21:43 Ur Barbiturates Screen Presumptive negative 06/16/18 Unknown Ur Phencyclidine Scrn Presumptive negative 06/16/18 Unknown Ur Amphetamines Screen Presumptive negative 06/16/18 Unknown U Benzodiazepines Scrn Presumptive negative 06/16/18 Unknown Urine Cocaine Screen Presumptive negative 06/16/18 Unknown U Marijuana (THC) Screen Presumptive negative 06/16/18 Unknown Drugs of Abuse Note Disclamer 06/16/18 Unknown Plasma/Serum Alcohol < 0.01 % (0-0.07) 06/16/18 21:43 Thyroglobulin Antibody See scanned result 06/20/18 16:51 Thyroid Peroxidase Ab See scanned result 06/20/18 16:51 HIV 1&2 Antibody Rapid Non react (Non React) 06/21/18 16:27 HIV P24 Antigen Non react (Non React) 06/21/18 16:27 - Imaging and Cardiology Chest x-ray: image reviewed (cardiomegaly) Active Medications - Current Medications Current Medications: Generic Name Dose Route Start Last Admin Trade Name Freq PRN Reason Stop Dose Admin Acetaminophen 650 mg 06/17/18 03:33 06/26/18 09:09 Tylenol PO 650 mg Q4H PRN Administration Fever >101 Apixaban 5 mg 06/20/18 16:00 06/26/18 21:56 Eliquis PO 5 mg Q12HR JEANETTE Administration Protocol Atorvastatin Calcium 20 mg 06/19/18 22:00 06/26/18 21:56 Lipitor PO 20 mg QHS JEANETTE Administration Digoxin 0.125 mg 06/24/18 17:00 06/26/18 17:26 Lanoxin PO 0.125 mg DAILY@1700 JEANETTE Administration Levofloxacin/Dextrose 750 mg in 150 mls @ 100 mls/hr 06/25/18 10:00 06/26/18 09:10 Levaquin 750mg/150ml IV 100 mls/hr Q24HR JEANETTE Administration Protocol Sodium Bicarbonate 150 meq/ 1,150 mls @ 75 mls/hr 06/26/18 12:30 06/27/18 04:25 Dextrose IV 75 mls/hr DIRECT JEANETTE Administration Norepinephrine 4 mg in 250 mls @ 7.5 mls/hr 06/26/18 12:00 06/27/18 04:25 Levophed Drip 4 Mg/Ns 250 Ml IV 10 mcg/min TITR JEANETTE 37.5 mls/hr Administration Protocol 2 MCG/MIN Vasopressin 20 unit/ Sodium 101 mls @ 9.09 mls/hr 06/26/18 12:00 Chloride IV TITR JEANETTE Protocol 0.03 UNITS/MIN Lactulose 20 gm 06/25/18 12:00 06/27/18 05:58 Cephulac PO 20 gm Q6HR JEANETTE Administration Metoprolol Tartrate 25 mg 06/25/18 09:00 06/27/18 02:22 Lopressor PO Not Given Q8H JEANETTE Ondansetron HCl 4 mg 06/17/18 03:24 Zofran IV Q8H PRN Nausea And Vomiting Sertraline HCl 50 mg 06/24/18 10:00 06/26/18 12:17 Zoloft PO Not Given DAILY JEANETTE Nutrition/Malnutrition Assess - Dietary Evaluation Nutrition/Malnutrition Findings: Nutrition Notes Start: 06/24/18 15:14 Freq: Status: Active Protocol: Document 06/24/18 15:14 RM (Rec: 06/24/18 15:21 RM [id number]) Nutrition Notes Need for Assessment generated from: LOS Current Diagnosis Hypertension,Heart Failure Other Pertinent Diagnosis Migraines, AMS, Psychosis Current Diet Cardiac/Consistent CHO Labs/Tests Reviewed Pertinent Medications Reviewed Height 5 ft 5 in Weight 78.2 kg [place] Body Weight (kg) 56.81 BMI 28.7 Subjective/Other Information Screened for LOS. Pt stated that she eats 25% to 50% of her meals. Burn Absent Trauma Absent #1 Nutrition Diagnosis Inadequate oral intake Etiology decreased appetite, psychosis As Evidenced by Signs and Symptoms pt statement that she eats 25% to 50% of her meals Is patient on ventilator? No Is Patient Ambulatory and/or Out of Bed Yes REE-([facility]-ambulatory/OOB) [ [id number] [id number]] Calculation Used for Recommendations [facility] Additional Notes Protein Needs: 78-94g (1-1.2g/ kg) Fluid Needs: 1 ml/kcal Nutrition Intervention Change Diet Order: Continue current Add Supplement/Snack (indicate name/kcal Ensure Enlive Flavor Rotate 1 /protein ) daily Provides kCal: 350 Provides Protein (gm) 20 Goal #1 Meet at least 75% of calorie and protein needs via PO and ONS intakes Anticipated Discharge Needs: Cardiac/Consistent CHO diet Follow-Up By: 06/27/18 Additional Comments Follow for PO and ONS intakes
[2018-06-27 09:47] LABS: Hematocrit 41.6 % (30.3-42.9); Hemoglobin 13.6 gm/dl (10.1-14.3); Mean Corpuscular HGB Conc 33 % (30-34); Mean Corpuscular Volume 76 fl (79-97); Platelet Count 162 K/mm3 (140-440); Red Blood Count 5.44 M/mm3 (3.65-5.03); Red Cell Distribution Width 18.3 % (13.2-15.2)
[2018-06-27 10:09] LABS: Albumin 2.3 g/dL (3.9-5); Calcium 8.1 mg/dL (8.4-10.2)
--- NOTE | 2018-06-27 10:31 | Progress Note ---
Assessment and Plan - Patient Problems (1) Acute kidney failure with tubular necrosis Current Visit: Yes Status: Acute Plan to address problem: acute tubular necrosis secondary to cardiac arrest. pt remains non-oliguric, renal function stabilizing with vasopressor support. (2) Hyponatremia with decreased serum osmolality Current Visit: Yes Status: Acute Plan to address problem: Likely in the setting of fluid overload. We will continue to monitor on a daily basis. (3) Cardiac arrest Current Visit: Yes Status: Acute Plan to address problem: s/p code blue, ACLS, ROSC. remains on vasopressor support. (4) Fluid overload Current Visit: Yes Status: Chronic Qualifiers: Hypervolemia type: other Qualified Code(s): E87.79 - Other fluid overload Plan to address problem: Agree with current regimen and diuretic management. Would recommend fluid restrictions and appropriate low-sodium diet given her history of end-stage heart disease and cardiomyopathy. (5) Acute on chronic systolic heart failure Current Visit: No Status: Acute Plan to address problem: Follow up with further recommendations per cardiology. Will continue on current diuretic regimen along with appropriate fluid restrictions and low sodium diet. (6) Altered mental status Current Visit: Yes Status: Acute Plan to address problem: We'll continue to monitor closely. Psychiatry evaluation noted. (7) HTN (hypertension) Current Visit: No Status: Chronic Plan to address problem: Continue on current regimen and will monitor. Subjective Date of service: 06/27/18 Principal diagnosis: altered mental status, psychosis, chronic systolic heart failure, Interval history: pt remains intubated, unresponsive, on vasopressor support. Objective - Vital Signs Vital signs: Vital Signs - 12hr 06/26/18 06/27/18 06/27/18 23:30 00:00 01:56 Temperature 97.8 F Pulse Rate 93 H 92 H Respiratory 16 Rate Blood Pressure 94/58 O2 Sat by Pulse 100 100 Oximetry 06/27/18 06/27/18 06/27/18 02:01 02:16 02:34 Temperature Pulse Rate 92 H 94 H 93 H Respiratory 19 16 16 Rate Blood Pressure 95/53 95/53 O2 Sat by Pulse 100 100 100 Oximetry 06/27/18 06/27/18 06/27/18 02:45 03:00 03:15 Temperature Pulse Rate 91 H 96 H 91 H Respiratory 24 16 25 H Rate Blood Pressure 98/58 103/62 107/40 O2 Sat by Pulse 100 100 100 Oximetry 06/27/18 06/27/18 06/27/18 03:30 03:46 04:00 Temperature 98.9 F Pulse Rate 93 H 95 H 93 H Respiratory 20 10 L 25 H Rate Blood Pressure 107/40 100/61 100/61 O2 Sat by Pulse 100 100 100 Oximetry 06/27/18 06/27/18 06/27/18 04:03 04:15 04:30 Temperature Pulse Rate 93 H 93 H 99 H Respiratory 21 14 Rate Blood Pressure 82/37 85/43 85/43 O2 Sat by Pulse 100 100 100 Oximetry 06/27/18 06/27/18 06/27/18 04:46 05:00 05:15 Temperature Pulse Rate 97 H 97 H 93 H Respiratory 16 14 24 Rate Blood Pressure 96/43 111/93 107/65 O2 Sat by Pulse 100 100 100 Oximetry 06/27/18 06/27/18 06/27/18 05:30 05:45 06:00 Temperature Pulse Rate 92 H 92 H 91 H Respiratory 18 25 H 15 Rate Blood Pressure 102/60 118/52 111/61 O2 Sat by Pulse 100 100 100 Oximetry 06/27/18 06/27/18 06/27/18 06:15 06:30 06:45 Temperature Pulse Rate 93 H 91 H 90 Respiratory 21 16 24 Rate Blood Pressure 92/68 107/62 107/80 O2 Sat by Pulse 100 100 100 Oximetry 06/27/18 06/27/18 06/27/18 07:00 07:15 07:30 Temperature Pulse Rate 90 90 90 Respiratory 28 H 17 20 Rate Blood Pressure 121/67 126/69 109/70 O2 Sat by Pulse 100 100 100 Oximetry 06/27/18 06/27/18 06/27/18 07:45 08:00 08:15 Temperature 98.1 F Pulse Rate 91 H 91 H 91 H Respiratory 23 19 22 Rate Blood Pressure 118/61 107/61 114/55 O2 Sat by Pulse 100 100 100 Oximetry 06/27/18 06/27/18 06/27/18 08:30 08:40 08:46 Temperature Pulse Rate 92 H 92 H 93 H Respiratory 13 27 H Rate Blood Pressure 113/64 113/64 96/55 O2 Sat by Pulse 100 100 100 Oximetry 06/27/18 06/27/18 06/27/18 09:00 09:15 09:30 Temperature Pulse Rate 90 94 H 95 H Respiratory 13 12 16 Rate Blood Pressure 95/53 117/61 112/69 O2 Sat by Pulse 100 100 100 Oximetry 06/27/18 06/27/18 06/27/18 09:45 10:00 10:08 Temperature Pulse Rate 93 H 92 H 94 H Respiratory 14 12 22 Rate Blood Pressure 111/61 101/64 101/64 O2 Sat by Pulse 100 100 100 Oximetry 06/27/18 10:16 Temperature Pulse Rate 91 H Respiratory 10 L Rate Blood Pressure 110/65 O2 Sat by Pulse 100 Oximetry - General Appearance General appearance: appears stated age, intubated EENT: ATNC, PERRL, mucous membranes moist Neck: no JVD Respiratory: Present: Decreased Breath Sounds Cardiology: regular, S1S2 Gastrointestinal: normoactive bowel sounds, obese Integumentary: no rash, other (+ edema ) Neurologic: other (intubated ) - Lab 06/27/18 09:29 06/27/18 09:29 Most recent lab results Calcium 8.1 mg/dL (8.4-10.2) L 06/27/18 09:29 Phosphorus 2.50 mg/dL (2.5-4.5) 06/20/18 07:31 Magnesium 1.70 mg/dL (1.7-2.3) 06/21/18 16:27 Urine Creatinine 61.7 mg/dL (0.1-20.0) H 06/19/18 Unknown Urine Total Protein 32 mg/dL (5-11.8) H 06/19/18 Unknown Medications & Allergies - Medications Allergies/Adverse Reactions: Allergies Penicillins Allergy (Verified 09/04/17 14:11) Unknown aspirin Adverse Reaction (Verified 09/04/17 14:10) Nausea NSAIDS (Non-Steroidal Anti-Inflamma Adverse Reaction (Verified 09/04/17 14:10) Nausea Pork/Porcine Containing Products Adverse Reaction (Verified 11/01/17 09:04) Nausea Home Medications: Home Medications Medication Instructions Recorded Confirmed Last Taken Type Apixaban [Eliquis] 5 mg PO DAILY 09/06/17 10/31/17 Unknown History AtorvaSTATin [Lipitor] 20 mg PO DAILY 09/06/17 10/31/17 Unknown History Loperamide HCl [Loperamide] 2 mg PO DAILY 09/06/17 10/31/17 Unknown History Sertraline [Zoloft] 50 mg PO DAILY 09/06/17 10/31/17 10/17/17 10:00 History Sucralfate [Carafate] 1 gm PO DAILY 09/06/17 10/31/17 Unknown History Carvedilol [Coreg] 12.5 mg PO BID #60 tablet 09/08/17 10/31/17 Unknown Rx Lisinopril [Zestril TAB] 5 mg PO QDAY #30 tablet 09/08/17 10/31/17 Unknown Rx Doxycycline [Vibramycin CAP] 100 mg PO Q12HR #10 capsule 11/02/17 Unknown Rx Furosemide [Lasix] 20 mg PO QDAY #30 tablet 11/02/17 Unknown Rx Active Medications: Generic Name Dose Route Start Last Admin Trade Name Freq PRN Reason Stop Dose Admin Acetaminophen 650 mg 06/17/18 03:33 06/26/18 09:09 Tylenol PO 650 mg Q4H PRN Administration Fever >101 Apixaban 5 mg 06/20/18 16:00 06/26/18 21:56 Eliquis PO 5 mg Q12HR JEANETTE Administration Protocol Atorvastatin Calcium 20 mg 06/19/18 22:00 06/26/18 21:56 Lipitor PO 20 mg QHS JEANETTE Administration Digoxin 0.125 mg 06/24/18 17:00 06/26/18 17:26 Lanoxin PO 0.125 mg DAILY@1700 JEANETTE Administration Levofloxacin/Dextrose 750 mg in 150 mls @ 100 mls/hr 06/25/18 10:00 06/26/18 09:10 Levaquin 750mg/150ml IV 100 mls/hr Q24HR JEANETTE Administration Protocol Sodium Bicarbonate 150 meq/ 1,150 mls @ 75 mls/hr 06/26/18 12:30 06/27/18 04:25 Dextrose IV 75 mls/hr DIRECT JEANETTE Administration Norepinephrine 4 mg in 250 mls @ 7.5 mls/hr 06/26/18 12:00 06/27/18 04:25 Levophed Drip 4 Mg/Ns 250 Ml IV 10 mcg/min TITR JEANETTE 37.5 mls/hr Administration Protocol 2 MCG/MIN Vasopressin 20 unit/ Sodium 101 mls @ 9.09 mls/hr 06/26/18 12:00 Chloride IV TITR JEANETTE Protocol 0.03 UNITS/MIN Lactulose 20 gm 06/25/18 12:00 06/27/18 05:58 Cephulac PO 20 gm Q6HR JEANETTE Administration Metoprolol Tartrate 25 mg 06/25/18 09:00 06/27/18 10:02 Lopressor PO Not Given Q8H JEANETTE Ondansetron HCl 4 mg 06/17/18 03:24 Zofran IV Q8H PRN Nausea And Vomiting Sertraline HCl 50 mg 06/24/18 10:00 06/26/18 12:17 Zoloft PO Not Given DAILY JEANETTE
[2018-06-27 10:48] LABS: Basophils % (Manual) 0 % (0.0-1.8); Eosinophils % (Manual) 0 % (0.0-4.3); Total Cells Counted 100
[2018-06-27 10:49] LABS: Hypochromasia Few; Poikilocytosis 2+
[2018-06-27 10:51] LABS: Ovalocytes Rare; Platelet Estimate Consistent w Auto; Target Cells 2+
[2018-06-27] MEDS: ZOLOFT PO SCH (11:12)
[2018-06-27] MEDS: LEVAQUIN 750MG/150ML 750 MG/150 ML BAG IV SCH (11:13)
[2018-06-27] MEDS: ELIQUIS PO SCH ×2 (11:13→21:43)
--- NOTE | 2018-06-27 11:15 | Progress Note ---
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 Bili Likely congestive hepatopathy, Severe protein calorie malnutrition Hypokalemia - add low dose dobutamie re: persistent hypotension for inotropic support - place PICC line then pull IO - get ABG and extubate if acceptable - schedule bronchodilators with pulmonary hygiene per RT - begin reglan 5mg IV q6h re: large residuals - on SBT and tiolerating well so far - continue Supplemental oxygen keep O2 sat>0% - VAP bundle addressed - wean vasopressor support to keep MAP >65 - Lung protective strategies - follow TSH, free T4 to r/o thyroid dysfunction as cause for acute psychosis - ABGs and CXR reviewed - Anticoagulated on Eliquis - continue Stress ulcer prophylaxis with Pepcid - continue avila catheter re: azotemia in this critically ill patient - strict intake and output monitoring in this critically ill patient in shock with acute renal failure - continue glycemic control with accuchecks and SSI with target BG 140 - 180 mg/dl - Avoid hypoglycemia - Correct electrolytes as indicated - daily SAT's - Critical bundles addressed - Stop all diuretics, in view of hemodynamic instability - follow tracheal aspirate for cultures - continue other care per attending / other consultants CONDITION: CRITICAL PROGNOSIS: GUARDED TO POOR CODE STATUS: FULL CODE The high probability of a clinically significant, sudden or life threatening deterioration of the [cardiovascular, pulmonary, hepatic, neurology, endocrine] system(s) required my full and direct attention, intervention and personal management. The aggregate critical care time was [35] minutes. This time is in addition to time spent performing reported procedures but includes the following: [x] Data Review and interpretation [x] Patient assessment and monitoring of vital signs [x] Documentation [x] Medication orders and management Subjective Date of service: 06/27/18 Principal diagnosis: altered mental status, psychosis, chronic systolic heart failure, Interval history: Patient is seen today for: Cardiopulmonary arrest; Acute hypoxic respiratory failure; Hypoglycemia; Altered mental status, with acute encephalopathy; AMY; SI RS; Shock syndrome Seen and examined at bedside; 24hour events reviewed; nursing and respiratory care staff consulted; no adverse overnight events reported to me; resting in bed; remains on levophed at 4 mics/min; more alert and appropriate; remains a difficult IV access and has an IO in place Objective Vital Signs - 12hr 06/26/18 06/27/18 06/27/18 23:30 00:00 01:56 Temperature 97.8 F Pulse Rate 93 H 92 H Respiratory 16 Rate Blood Pressure 94/58 O2 Sat by Pulse 100 100 Oximetry 06/27/18 06/27/18 06/27/18 02:01 02:16 02:34 Temperature Pulse Rate 92 H 94 H 93 H Respiratory 19 16 16 Rate Blood Pressure 95/53 95/53 O2 Sat by Pulse 100 100 100 Oximetry 06/27/18 06/27/18 06/27/18 02:45 03:00 03:15 Temperature Pulse Rate 91 H 96 H 91 H Respiratory 24 16 25 H Rate Blood Pressure 98/58 103/62 107/40 O2 Sat by Pulse 100 100 100 Oximetry 06/27/18 06/27/18 06/27/18 03:30 03:46 04:00 Temperature 98.9 F Pulse Rate 93 H 95 H 93 H Respiratory 20 10 L 25 H Rate Blood Pressure 107/40 100/61 100/61 O2 Sat by Pulse 100 100 100 Oximetry 06/27/18 06/27/18 06/27/18 04:03 04:15 04:30 Temperature Pulse Rate 93 H 93 H 99 H Respiratory 21 14 Rate Blood Pressure 82/37 85/43 85/43 O2 Sat by Pulse 100 100 100 Oximetry 06/27/18 06/27/18 06/27/18 04:46 05:00 05:15 Temperature Pulse Rate 97 H 97 H 93 H Respiratory 16 14 24 Rate Blood Pressure 96/43 111/93 107/65 O2 Sat by Pulse 100 100 100 Oximetry 06/27/18 06/27/18 06/27/18 05:30 05:45 06:00 Temperature Pulse Rate 92 H 92 H 91 H Respiratory 18 25 H 15 Rate Blood Pressure 102/60 118/52 111/61 O2 Sat by Pulse 100 100 100 Oximetry 06/27/18 06/27/18 06/27/18 06:15 06:30 06:45 Temperature Pulse Rate 93 H 91 H 90 Respiratory 21 16 24 Rate Blood Pressure 92/68 107/62 107/80 O2 Sat by Pulse 100 100 100 Oximetry 06/27/18 06/27/18 06/27/18 07:00 07:15 07:30 Temperature Pulse Rate 90 90 90 Respiratory 28 H 17 20 Rate Blood Pressure 121/67 126/69 109/70 O2 Sat by Pulse 100 100 100 Oximetry 06/27/18 06/27/18 06/27/18 07:45 08:00 08:15 Temperature 98.1 F Pulse Rate 91 H 91 H 91 H Respiratory 23 19 22 Rate Blood Pressure 118/61 107/61 114/55 O2 Sat by Pulse 100 100 100 Oximetry 06/27/18 06/27/18 06/27/18 08:30 08:40 08:46 Temperature Pulse Rate 92 H 92 H 93 H Respiratory 13 27 H Rate Blood Pressure 113/64 113/64 96/55 O2 Sat by Pulse 100 100 100 Oximetry 06/27/18 06/27/18 06/27/18 09:00 09:15 09:30 Temperature Pulse Rate 90 94 H 95 H Respiratory 13 12 16 Rate Blood Pressure 95/53 117/61 112/69 O2 Sat by Pulse 100 100 100 Oximetry 06/27/18 06/27/18 06/27/18 09:45 10:00 10:08 Temperature Pulse Rate 93 H 92 H 94 H Respiratory 14 12 22 Rate Blood Pressure 111/61 101/64 101/64 O2 Sat by Pulse 100 100 100 Oximetry 06/27/18 10:16 Temperature Pulse Rate 91 H Respiratory 10 L Rate Blood Pressure 110/65 O2 Sat by Pulse 100 Oximetry Constitutional: no acute distress, alert, other (elderly looking AAF normocephalic and atraumatic with normal resp effort at rest) Eyes: non-icteric, other (Pupils 4mm, sluggichly reacting to light) ENT: oropharynx dry, other (ETT 23 cm FELIX) Neck: supple, no lymphadenopathy, no JVD, other (no thyromegaly) Effort: normal Ascultation: Bilateral: diminished breath sounds, rales Percussion: Bilateral: not dull Cardiovascular: irregular rhythm, other (S1,S2,) Gastrointestinal: normoactive bowel sounds, soft, non-tender, non-distended Integumentary: rash (exematoid rash to upper chest) Extremities: no cyanosis, no edema, pulses normal, no ischemia or petechiae Neurologic: normal mental status, non-focal exam (grossly), pupils equal and round, motor strength normal and Psychiatric: anxious CBC and BMP: 06/27/18 09:29 06/27/18 09:29 ABG, PT/INR, D-dimer: ABG POC ABG pH 7.389 (7.35-7.45) 06/26/18 16:01 POC ABG pCO2 34.0 (35-45) L 06/26/18 16:01 POC ABG pO2 73 (80-105) L 06/26/18 11:51 POC ABG HCO3 20.5 (22-26 mml/L) 06/26/18 16:01 POC ABG Total CO2 22 (23-27mmol/L) 06/26/18 16:01 POC ABG O2 Sat 100 06/26/18 16:01 Abnormal lab findings: Abnormal Labs 06/16/18 06/16/18 06/16/18 21:05 21:43 21:43 WBC RBC Hgb Hct MCV MCH RDW Plt Count [place] % (Auto) Lymph # Seg Neutrophils % Seg Neuts % (Manual) Lymphocytes % (Manual) Seg Neutrophils # Man Lymphocytes # (Manual) Monocytes # (Manual) POC ABG pH POC ABG pCO2 POC ABG pO2 Sodium 129 L Potassium Chloride 95.3 L Carbon Dioxide 14 L BUN 23 H Creatinine Glucose 146 H POC Glucose < 40 L Lactic Acid Uric Acid Calcium Magnesium Total Bilirubin Direct Bilirubin AST ALT Alkaline Phosphatase Ammonia Total Protein Albumin Vitamin B1 Vitamin B12 25-OH Vitamin D Total Free T4 T3 (GILSON) Urine Creatinine Urine Total Protein Acetaminophen < 5.0 L 06/16/18 06/16/18 06/16/18 21:43 21:43 22:27 WBC RBC 5.70 H Hgb Hct 44.6 H MCV 78 L MCH 25 L RDW 18.7 H Plt Count [place] % (Auto) Lymph # Seg Neutrophils % 78.8 H Seg Neuts % (Manual) Lymphocytes % (Manual) Seg Neutrophils # Man Lymphocytes # (Manual) Monocytes # (Manual) POC ABG pH POC ABG pCO2 POC ABG pO2 Sodium Potassium Chloride Carbon Dioxide BUN Creatinine Glucose POC Glucose 121 H Lactic Acid Uric Acid Calcium Magnesium Total Bilirubin Direct Bilirubin AST ALT Alkaline Phosphatase Ammonia Total Protein Albumin Vitamin B1 Vitamin B12 25-OH Vitamin D Total Free T4 1.87 H T3 (GILSON) Urine Creatinine Urine Total Protein Acetaminophen 06/16/18 06/16/18 06/17/18 22:33 23:43 03:56 WBC RBC Hgb Hct MCV MCH RDW Plt Count [place] % (Auto) Lymph # Seg Neutrophils % Seg Neuts % (Manual) Lymphocytes % (Manual) Seg Neutrophils # Man Lymphocytes # (Manual) Monocytes # (Manual) POC ABG pH POC ABG pCO2 POC ABG pO2 Sodium Potassium Chloride Carbon Dioxide BUN Creatinine Glucose POC Glucose Lactic Acid 4.40 H* 4.30 H* 3.10 H* Uric Acid Calcium Magnesium Total Bilirubin Direct Bilirubin AST ALT Alkaline Phosphatase Ammonia Total Protein Albumin Vitamin B1 Vitamin B12 25-OH Vitamin D Total Free T4 T3 (GILSON) Urine Creatinine Urine Total Protein Acetaminophen 06/17/18 06/17/18 06/17/18 08:35 08:40 11:00 WBC RBC Hgb Hct MCV MCH RDW Plt Count [place] % (Auto) Lymph # Seg Neutrophils % Seg Neuts % (Manual) Lymphocytes % (Manual) Seg Neutrophils # Man Lymphocytes # (Manual) Monocytes # (Manual) POC ABG pH POC ABG pCO2 POC ABG pO2 Sodium Potassium Chloride Carbon Dioxide BUN Creatinine Glucose POC Glucose 56 L Lactic Acid 2.70 H* 3.40 H* Uric Acid Calcium Magnesium Total Bilirubin Direct Bilirubin AST ALT Alkaline Phosphatase Ammonia Total Protein Albumin Vitamin B1 Vitamin B12 25-OH Vitamin D Total Free T4 T3 (GILSON) Urine Creatinine Urine Total Protein Acetaminophen 06/17/18 06/17/18 06/17/18 11:00 11:00 11:00 WBC 11.9 H RBC 5.25 H Hgb Hct MCV MCH 25 L RDW 18.6 H Plt Count [place] % (Auto) Lymph # Seg Neutrophils % Seg Neuts % (Manual) Lymphocytes % (Manual) Seg Neutrophils # Man Lymphocytes # (Manual) Monocytes # (Manual) POC ABG pH POC ABG pCO2 POC ABG pO2 Sodium 128 L Potassium Chloride 95.6 L Carbon Dioxide 15 L BUN 22 H Creatinine Glucose 110 H POC Glucose Lactic Acid Uric Acid Calcium 8.3 L Magnesium Total Bilirubin Direct Bilirubin 1.6 H AST 66 H ALT Alkaline Phosphatase 178 H Ammonia Total Protein 4.7 L Albumin 2.4 L Vitamin B1 Vitamin B12 25-OH Vitamin D Total Free T4 T3 (GILSON) Urine Creatinine Urine Total Protein Acetaminophen 06/17/18 06/17/18 06/17/18 15:08 15:08 23:00 WBC RBC Hgb Hct MCV MCH RDW Plt Count [place] % (Auto) Lymph # Seg Neutrophils % Seg Neuts % (Manual) Lymphocytes % (Manual) Seg Neutrophils # Man Lymphocytes # (Manual) Monocytes # (Manual) POC ABG pH POC ABG pCO2 POC ABG pO2 Sodium Potassium Chloride Carbon Dioxide BUN Creatinine Glucose POC Glucose Lactic Acid 4.00 H* Uric Acid Calcium Magnesium Total Bilirubin Direct Bilirubin AST ALT Alkaline Phosphatase Ammonia 10.0 L Total Protein Albumin Vitamin B1 Vitamin B12 25-OH Vitamin D Total Free T4 1.53 H T3 (GILSON) Urine Creatinine Urine Total Protein Acetaminophen 06/18/18 06/18/18 06/18/18 08:59 08:59 12:49 WBC RBC 5.29 H Hgb Hct MCV 78 L MCH 25 L RDW 18.4 H Plt Count [place] % (Auto) Lymph # Seg Neutrophils % Seg Neuts % (Manual) Lymphocytes % (Manual) Seg Neutrophils # Man Lymphocytes # (Manual) Monocytes # (Manual) POC ABG pH POC ABG pCO2 POC ABG pO2 Sodium 128 L Potassium 5.9 H D Chloride 96.1 L Carbon Dioxide 20 L BUN 22 H Creatinine Glucose POC Glucose 60 L Lactic Acid Uric Acid Calcium Magnesium Total Bilirubin Direct Bilirubin AST ALT Alkaline Phosphatase Ammonia Total Protein Albumin Vitamin B1 Vitamin B12 25-OH Vitamin D Total Free T4 T3 (GILSON) Urine Creatinine Urine Total Protein Acetaminophen 06/18/18 06/19/18 06/19/18 21:28 12:14 13:23 WBC RBC Hgb Hct MCV MCH RDW Plt Count [place] % (Auto) Lymph # Seg Neutrophils % Seg Neuts % (Manual) Lymphocytes % (Manual) Seg Neutrophils # Man Lymphocytes # (Manual) Monocytes # (Manual) POC ABG pH POC ABG pCO2 POC ABG pO2 Sodium 122 L Potassium 5.4 H Chloride 95.0 L Carbon Dioxide 13 L D BUN 21 H Creatinine Glucose 119 H POC Glucose 114 H Lactic Acid Uric Acid Calcium 8.3 L Magnesium Total Bilirubin Direct Bilirubin AST ALT Alkaline Phosphatase Ammonia Total Protein Albumin Vitamin B1 Vitamin B12 25-OH Vitamin D Total Free T4 T3 (GILSON) Urine Creatinine Urine Total Protein Acetaminophen 06/19/18 06/19/18 06/19/18 14:47 16:38 22:42 WBC RBC 5.51 H Hgb Hct 45.3 H MCV MCH 25 L RDW 18.6 H Plt Count [place] % (Auto) Lymph # Seg Neutrophils % Seg Neuts % (Manual) Lymphocytes % (Manual) Seg Neutrophils # Man Lymphocytes # (Manual) Monocytes # (Manual) POC ABG pH POC ABG pCO2 POC ABG pO2 Sodium Potassium Chloride Carbon Dioxide BUN Creatinine Glucose POC Glucose 108 H 49 L Lactic Acid Uric Acid Calcium Magnesium Total Bilirubin Direct Bilirubin AST ALT Alkaline Phosphatase Ammonia Total Protein Albumin Vitamin B1 Vitamin B12 25-OH Vitamin D Total Free T4 T3 (GILSON) Urine Creatinine Urine Total Protein Acetaminophen 06/19/18 06/20/18 06/20/18 Unknown 07:31 16:51 WBC RBC Hgb Hct MCV MCH RDW Plt Count [place] % (Auto) Lymph # Seg Neutrophils % Seg Neuts % (Manual) Lymphocytes % (Manual) Seg Neutrophils # Man Lymphocytes # (Manual) Monocytes # (Manual) POC ABG pH POC ABG pCO2 POC ABG pO2 Sodium 132 L D Potassium Chloride 94.3 L Carbon Dioxide BUN 20 H Creatinine Glucose POC Glucose Lactic Acid Uric Acid 8.6 H Calcium Magnesium 1.30 L Total Bilirubin Direct Bilirubin AST ALT Alkaline Phosphatase Ammonia Total Protein Albumin Vitamin B1 Vitamin B12 25-OH Vitamin D Total Free T4 T3 (GILSON) 58 L Urine Creatinine 61.7 H Urine Total Protein 32 H Acetaminophen 06/20/18 06/20/18 06/21/18 20:53 20:53 16:27 WBC RBC Hgb Hct MCV MCH RDW Plt Count [place] % (Auto) Lymph # Seg Neutrophils % Seg Neuts % (Manual) Lymphocytes % (Manual) Seg Neutrophils # Man Lymphocytes # (Manual) Monocytes # (Manual) POC ABG pH POC ABG pCO2 POC ABG pO2 Sodium Potassium Chloride Carbon Dioxide BUN Creatinine Glucose POC Glucose Lactic Acid Uric Acid 9.2 H Calcium Magnesium Total Bilirubin Direct Bilirubin AST ALT Alkaline Phosphatase Ammonia Total Protein Albumin Vitamin B1 Vitamin B12 1598 H 25-OH Vitamin D Total 10 L Free T4 T3 (GILSON) Urine Creatinine Urine Total Protein Acetaminophen 06/21/18 06/21/18 06/21/18 16:27 16:27 16:27 WBC RBC 5.26 H Hgb Hct MCV 77 L MCH 26 L RDW 17.7 H Plt Count [place] % (Auto) Lymph # Seg Neutrophils % Seg Neuts % (Manual) Lymphocytes % (Manual) Seg Neutrophils # Man Lymphocytes # (Manual) Monocytes # (Manual) POC ABG pH POC ABG pCO2 POC ABG pO2 Sodium 130 L Potassium Chloride 95.6 L Carbon Dioxide BUN 24 H Creatinine Glucose POC Glucose Lactic Acid Uric Acid Calcium Magnesium Total Bilirubin Direct Bilirubin AST ALT Alkaline Phosphatase Ammonia Total Protein Albumin Vitamin B1 <6 L Vitamin B12 25-OH Vitamin D Total Free T4 T3 (GILSON) Urine Creatinine Urine Total Protein Acetaminophen 06/21/18 06/22/18 06/23/18 21:44 21:42 14:54 WBC RBC 5.07 H Hgb Hct MCV 78 L MCH 25 L RDW 18.5 H Plt Count [place] % (Auto) 12.3 H Lymph # 1.0 L Seg Neutrophils % Seg Neuts % (Manual) Lymphocytes % (Manual) Seg Neutrophils # Man Lymphocytes # (Manual) Monocytes # (Manual) POC ABG pH POC ABG pCO2 POC ABG pO2 Sodium Potassium Chloride Carbon Dioxide BUN Creatinine Glucose POC Glucose 126 H 114 H Lactic Acid Uric Acid Calcium Magnesium Total Bilirubin Direct Bilirubin AST ALT Alkaline Phosphatase Ammonia Total Protein Albumin Vitamin B1 Vitamin B12 25-OH Vitamin D Total Free T4 T3 (GILSON) Urine Creatinine Urine Total Protein Acetaminophen 06/23/18 06/25/18 06/25/18 14:54 00:00 00:00 WBC 3.6 L RBC 5.31 H Hgb Hct MCV 77 L MCH 26 L RDW 19.0 H Plt Count [place] % (Auto) 10.2 H Lymph # Seg Neutrophils % Seg Neuts % (Manual) Lymphocytes % (Manual) Seg Neutrophils # Man Lymphocytes # (Manual) Monocytes # (Manual) POC ABG pH POC ABG pCO2 POC ABG pO2 Sodium 132 L 131 L Potassium 3.5 L Chloride 91.5 L 93.5 L Carbon Dioxide BUN 19 H 21 H Creatinine Glucose POC Glucose Lactic Acid Uric Acid Calcium 8.1 L Magnesium Total Bilirubin 2.80 H 2.70 H Direct Bilirubin AST 52 H 81 H ALT Alkaline Phosphatase 231 H 243 H Ammonia Total Protein 5.5 L 5.5 L Albumin 2.8 L 2.7 L Vitamin B1 Vitamin B12 25-OH Vitamin D Total Free T4 T3 (GILSON) Urine Creatinine Urine Total Protein Acetaminophen 06/25/18 06/25/18 06/25/18 16:02 16:02 16:18 WBC 3.9 L RBC 5.78 H Hgb 14.6 H Hct 45.4 H MCV MCH 25 L RDW 19.2 H Plt Count [place] % (Auto) Lymph # Seg Neutrophils % Seg Neuts % (Manual) Lymphocytes % (Manual) Seg Neutrophils # Man Lymphocytes # (Manual) 1.1 L Monocytes # (Manual) POC ABG pH POC ABG pCO2 POC ABG pO2 Sodium 131 L Potassium Chloride 90.0 L Carbon Dioxide BUN 25 H Creatinine 1.4 H Glucose POC Glucose Lactic Acid 4.00 H* Uric Acid Calcium Magnesium Total Bilirubin 3.10 H Direct Bilirubin AST 68 H ALT Alkaline Phosphatase 296 H Ammonia Total Protein 6.1 L Albumin 3.3 L Vitamin B1 Vitamin B12 25-OH Vitamin D Total Free T4 T3 (GILSON) Urine Creatinine Urine Total Protein Acetaminophen 06/25/18 06/26/18 06/26/18 21:06 11:33 11:37 WBC RBC Hgb Hct MCV MCH 26 L RDW 19.2 H Plt Count 139 L [place] % (Auto) Lymph # Seg Neutrophils % Seg Neuts % (Manual) 85.0 H Lymphocytes % (Manual) 6.0 L Seg Neutrophils # Man 8.0 H Lymphocytes # (Manual) 0.6 L Monocytes # (Manual) POC ABG pH POC ABG pCO2 POC ABG pO2 Sodium Potassium Chloride Carbon Dioxide BUN Creatinine Glucose POC Glucose < 40 L Lactic Acid 6.40 H* Uric Acid Calcium Magnesium Total Bilirubin Direct Bilirubin AST ALT Alkaline Phosphatase Ammonia Total Protein Albumin Vitamin B1 Vitamin B12 25-OH Vitamin D Total Free T4 T3 (GILSON) Urine Creatinine Urine Total Protein Acetaminophen 06/26/18 06/26/18 06/26/18 11:37 11:51 11:59 WBC RBC Hgb Hct MCV MCH RDW Plt Count [place] % (Auto) Lymph # Seg Neutrophils % Seg Neuts % (Manual) Lymphocytes % (Manual) Seg Neutrophils # Man Lymphocytes # (Manual) Monocytes # (Manual) POC ABG pH 7.029 L POC ABG pCO2 POC ABG pO2 73 L Sodium 129 L Potassium Chloride 87.0 L Carbon Dioxide 11 L D BUN 31 H Creatinine 1.9 H Glucose 206 H POC Glucose 253 H Lactic Acid Uric Acid Calcium 7.9 L Magnesium Total Bilirubin 2.90 H Direct Bilirubin AST 98 H ALT Alkaline Phosphatase 196 H Ammonia Total Protein 4.3 L D Albumin 2.2 L Vitamin B1 Vitamin B12 25-OH Vitamin D Total Free T4 T3 (GILSON) Urine Creatinine Urine Total Protein Acetaminophen 06/26/18 06/26/18 06/26/18 14:54 15:08 15:10 WBC 14.2 H RBC 5.66 H Hgb 14.5 H Hct 45.6 H D MCV MCH 26 L RDW 19.4 H Plt Count [place] % (Auto) Lymph # Seg Neutrophils % Seg Neuts % (Manual) 88.0 H Lymphocytes % (Manual) 5.0 L Seg Neutrophils # Man 12.5 H Lymphocytes # (Manual) 0.7 L Monocytes # (Manual) 0.9 H POC ABG pH POC ABG pCO2 POC ABG pO2 Sodium Potassium Chloride Carbon Dioxide BUN Creatinine Glucose POC Glucose 172 H Lactic Acid 11.90 H* Uric Acid Calcium Magnesium Total Bilirubin Direct Bilirubin AST ALT Alkaline Phosphatase Ammonia Total Protein Albumin Vitamin B1 Vitamin B12 25-OH Vitamin D Total Free T4 T3 (GILSON) Urine Creatinine Urine Total Protein Acetaminophen 06/26/18 06/26/18 06/26/18 16:01 18:47 20:55 WBC RBC Hgb Hct MCV MCH RDW Plt Count [place] % (Auto) Lymph # Seg Neutrophils % Seg Neuts % (Manual) Lymphocytes % (Manual) Seg Neutrophils # Man Lymphocytes # (Manual) Monocytes # (Manual) POC ABG pH POC ABG pCO2 34.0 L POC ABG pO2 Sodium Potassium Chloride Carbon Dioxide BUN Creatinine Glucose POC Glucose 183 H 131 H Lactic Acid Uric Acid Calcium Magnesium Total Bilirubin Direct Bilirubin AST ALT Alkaline Phosphatase Ammonia Total Protein Albumin Vitamin B1 Vitamin B12 25-OH Vitamin D Total Free T4 T3 (GILSON) Urine Creatinine Urine Total Protein Acetaminophen 06/26/18 06/27/18 06/27/18 21:55 09:29 09:29 WBC RBC Hgb Hct MCV MCH RDW Plt Count [place] % (Auto) Lymph # Seg Neutrophils % Seg Neuts % (Manual) Lymphocytes % (Manual) Seg Neutrophils # Man Lymphocytes # (Manual) Monocytes # (Manual) POC ABG pH POC ABG pCO2 POC ABG pO2 Sodium 135 L 135 L Potassium 3.5 L Chloride 91.7 L 91.2 L Carbon Dioxide BUN 35 H 37 H Creatinine 2.3 H 2.1 H Glucose 147 H 104 H POC Glucose Lactic Acid Uric Acid Calcium 8.3 L 8.1 L Magnesium Total Bilirubin 3.50 H Direct Bilirubin AST 218 H ALT 57 H Alkaline Phosphatase 197 H Ammonia Total Protein 5.0 L Albumin 2.3 L Vitamin B1 Vitamin B12 25-OH Vitamin D Total Free T4 1.78 H T3 (GILSON) Urine Creatinine Urine Total Protein Acetaminophen 06/27/18 06/27/18 06/27/18 09:29 09:29 10:00 WBC 16.3 H RBC 5.44 H Hgb Hct MCV 76 L MCH 25 L RDW 18.3 H Plt Count [place] % (Auto) Lymph # Seg Neutrophils % Seg Neuts % (Manual) 91.0 H Lymphocytes % (Manual) 3.0 L Seg Neutrophils # Man 14.8 H Lymphocytes # (Manual) 0.5 L Monocytes # (Manual) 1.0 H POC ABG pH POC ABG pCO2 POC ABG pO2 Sodium Potassium Chloride Carbon Dioxide BUN Creatinine Glucose POC Glucose 106 H Lactic Acid 4.00 H* Uric Acid Calcium Magnesium Total Bilirubin Direct Bilirubin AST ALT Alkaline Phosphatase Ammonia Total Protein Albumin Vitamin B1 Vitamin B12 25-OH Vitamin D Total Free T4 T3 (GILSON) Urine Creatinine Urine Total Protein Acetaminophen Chest x-ray: image reviewed (cardiomegaly with bilateral alveolar type inf iltrates / mild volume overload pattern) Allied health notes reviewed: nursing
[2018-06-27] MEDS: PEPCID PO SCH (12:02)
--- NOTE | 2018-06-27 12:39 | Progress Note ---
Assessment and Plan S/P Cardiac arrest s/p cardioversion Respiratory failure -on mechanical ventilator Chronic systolic heart failure Atrial fibrillation/flutter currently in sinus rhythm Severe depression Altered mental status Recently discharged from [facility] to home hospice care Non-ischemic cardiomyopathy Lactic acidosis Hyponatremia - chronic Elevated bilirubin and alk phosphatase - chronic secondary to congestive hepatopathy Non-compliance with medical therapy and outpatient cardiac follow up. Echo 04/2018 at [facility] showed: a 4 chamber dilated cardiomyopathy, LVEF severely decreased, 20-25%. Moderate mitral regurgitation. Severe TR. RVSP is severely elevated. Subjective Date of service: 06/27/18 Principal diagnosis: altered mental status, psychosis, chronic systolic heart failure, Interval history: Patient is alert but remains on the vent. Objective Vital Signs Temp Pulse Pulse Pulse Resp BP Pulse Ox 06/27/18 10:16 91 H 10 L 110/65 100 06/27/18 10:08 94 H 22 101/64 100 06/27/18 10:00 92 H 12 101/64 100 06/27/18 09:45 93 H 14 111/61 100 06/27/18 09:30 95 H 16 112/69 100 06/27/18 09:15 94 H 12 117/61 100 06/27/18 09:00 90 13 95/53 100 06/27/18 08:46 93 H 27 H 96/55 100 06/27/18 08:40 92 H 113/64 100 06/27/18 08:30 92 H 13 113/64 100 06/27/18 08:15 91 H 22 114/55 100 06/27/18 08:00 98.1 F 91 H 19 107/61 100 06/27/18 07:45 91 H 23 118/61 100 06/27/18 07:30 90 20 109/70 100 06/27/18 07:15 90 17 126/69 100 06/27/18 07:00 90 28 H 121/67 100 06/27/18 06:45 90 24 107/80 100 06/27/18 06:30 91 H 16 107/62 100 06/27/18 06:15 93 H 21 92/68 100 06/27/18 06:00 91 H 15 111/61 100 06/27/18 05:45 92 H 25 H 118/52 100 06/27/18 05:30 92 H 18 102/60 100 06/27/18 05:15 93 H 24 107/65 100 06/27/18 05:00 97 H 14 111/93 100 06/27/18 04:46 97 H 16 96/43 100 06/27/18 04:30 99 H 14 85/43 100 06/27/18 04:15 93 H 21 85/43 100 06/27/18 04:03 93 H 82/37 100 06/27/18 04:00 98.9 F 93 H 25 H 100/61 100 06/27/18 03:46 95 H 10 L 100/61 100 06/27/18 03:30 93 H 20 107/40 100 06/27/18 03:15 91 H 25 H 107/40 100 06/27/18 03:00 96 H 16 103/62 100 06/27/18 02:45 91 H 24 98/58 100 06/27/18 02:34 93 H 16 100 06/27/18 02:16 94 H 16 95/53 100 06/27/18 02:01 92 H 19 95/53 100 06/27/18 01:56 92 H 16 100 06/27/18 00:00 97.8 F 06/26/18 23:30 93 H 94/58 100 06/26/18 22:00 92 H 22 100 06/26/18 20:34 95 H 104/63 100 06/26/18 20:00 97.5 F L 06/26/18 19:00 92 H 06/26/18 17:35 96 H 132/82 100 06/26/18 17:26 98 H 136/64 06/26/18 17:01 96 H 137/86 06/26/18 16:00 95.7 F L 06/26/18 15:56 92 H 138/86 100 06/26/18 15:11 94.1 F L 06/26/18 13:45 97 H 32 H 100 - Physical Examination General: Other (on the vent) HEENT: Positive: PERRL Neck: Positive: trachea midline Cardiac: Positive: Reg Rate and Rhythm Lungs: Positive: Decreased Breath Sounds Neuro: Positive: Grossly Intact Extremities: Absent: edema - Labs and Meds Cardiac Enzymes 06/26/18 06/27/18 Range/Units 19:52 09:29 AST 218 H (5-40) units/L CK-MB (CK-2) TNR CBC 03/24/19 03/24/19 03/25/19 Range/Units 11:37 14:54 09:29 WBC 14.2 H 16.3 H (4.5-11.0) K/mm3 RBC 5.66 H 5.44 H (3.65-5.03) M/mm3 Hgb 14.5 H 13.6 (10.1-14.3) gm/dl Hct 45.6 H D 41.6 (30.3-42.9) % Plt Count 139 L 185 162 (140-440) K/mm3 Comprehensive Metabolic Panel 06/26/18 06/26/18 06/27/18 Range/Units 19:52 21:55 09:29 Sodium TNR 135 L 135 L Potassium TNR 3.8 3.5 L Chloride TNR 91.7 L 91.2 L Carbon Dioxide TNR 23 D 27 BUN TNR 35 H 37 H Creatinine TNR 2.3 H 2.1 H Glucose TNR 147 H 104 H Calcium TNR 8.3 L 8.1 L AST 218 H (5-40) units/L ALT 57 H (7-56) units/L Alkaline Phosphatase 197 H (35-129) units/L Total Protein 5.0 L (6.3-8.2) g/dL Albumin 2.3 L (3.9-5) g/dL - Allied health notes Allied health notes reviewed: nursing
[2018-06-27] MEDS: DOBUTREX DRIP 500MG/D5W 250ML 500 MG/250 ML BAG IV SCH (12:41)
[2018-06-27] MEDS: REGLAN IV SCH ×2 (14:00→21:43)
[2018-06-27] MEDS: DUONEB *Not for PRN Use IH SCH ×2 (14:29→20:35)
--- NOTE | 2018-06-27 16:12 | XRay Report ---
PROCEDURE: XR CHEST 1V AP TECHNIQUE: Frontal portable views of the chest HISTORY: left arm picc line COMPARISONS: Chest x-ray dated June 26, 2018 FINDINGS: The tip of the endotracheal tube continues to be at the level of the inferior aspect of the clavicles . There has been interval placement of an esophagogastric tube with the tip and side port projected in the region of the stomach. There has been interval placement of a left-sided PICC line with the tip projected in the region of t he right atrium. There continues to be a bilateral diffuse interstitial and airspace process with the appearance of sl ightly decreased airspace process in the left upper lung field but increased airspace process in the left lung base. There is no evidence of pneumothorax. There is a possible small left pleural fluid collection. The cardiac silhouette is enlarged similar in appearance to the previous study. The visualized portion of the abdomen is notable for distended air-filled loops of bowel in the upper abdomen. IMPRESSION: 1. Tip of the left-sided PICC line catheter projected in the region of the right atrium. 2. Satisfactory position of the esophagogastric tube and endotracheal tube. 3. Persistent bilateral interstitial and airspace process. 4. Possible small left pleural fluid collection. 5. Enlarged cardiac silhouette not significantly changed. This document is electronically signed by Bessie Silvestre MD., June 27 2018 04:10:07 PM ET
--- NOTE | 2018-06-27 17:47 | XRay Report ---
PROCEDURE: XR CHEST 1V AP TECHNIQUE: Frontal portable view of the chest HISTORY: Picc line COMPARISONS: Chest x-ray performed earlier today at 1520 FINDINGS: The left-sided PICC line catheter has been pulled back. The tip is now projected in the superior vena cava. There has been no significant interval change with persistent bilateral interstitial process and area s of pulmonary consolidation in the left mid and lower lung eli. The cardiac silhouette is enlarged. The endotracheal tube and esophagogastric tube are not significantly changed in appearance. IMPRESSION: 1. The tip of the PICC line catheter is now projected in the region of the superior vena cava. 2. Otherwise no significant change since study performed earlier today at 1520. This document is electronically signed by Bessie Silvestre MD., June 27 2018 05:45:23 PM ET
[2018-06-27] MEDS ORDERED: LASIX IV SCH (18:00)
[2018-06-27] MEDS: LANOXIN PO SCH (18:15)
[2018-06-28] MEDS: CEPHULAC PO SCH ×5 (00:20→23:11)
[2018-06-28] MEDS: LOPRESSOR PO SCH ×3 (01:30→17:00)
[2018-06-28] MEDS: REGLAN IV SCH ×3 (05:02→23:11)
[2018-06-28 05:36] LABS: Calcium 7.5 mg/dL (8.4-10.2)
[2018-06-28] MEDS: DOBUTREX DRIP 500MG/D5W 250ML 500 MG/250 ML BAG IV SCH (07:40)
[2018-06-28] MEDS: DUONEB *Not for PRN Use IH SCH ×3 (08:38→20:42)
[2018-06-28 08:58] LABS: Basophils % (Auto) 0.3 % (0.0-1.8); Eosinophils # (Auto) 0.1 K/mm3 (0.0-0.4); Eosinophils % (Auto) 0.3 % (0.0-4.3); Hematocrit 37.4 % (30.3-42.9); Hemoglobin 12.1 gm/dl (10.1-14.3); Lymphocytes # (Auto) 0.9 K/mm3 (1.2-5.4); Mean Corpuscular HGB Conc 32 % (30-34); Mean Corpuscular Volume 77 fl (79-97); Monocytes # (Auto) 1.6 K/mm3 (0.0-0.8); Platelet Count 112 K/mm3 (140-440); Red Blood Count 4.88 M/mm3 (3.65-5.03); Red Cell Distribution Width 18.5 % (13.2-15.2)
[2018-06-28] MEDS ORDERED: KCL 10MEQ/100ML 10 MEQ/100 ML BAG IV SCH (09:00)
[2018-06-28] MEDS ORDERED: MAGNESIUM SULFATE IV ONE (09:01)
[2018-06-28] MEDS: LEVOPHED DRIP 4 MG/NS 250 ML 4 MG/250 ML BAG IV SCH (09:27)
--- NOTE | 2018-06-28 09:34 | Progress Note ---
Assessment and Plan Assessment and plan: Patient is 68 yo woman with a history of hypertension, CHF and Atrial fibrillation who presented with altered mental status. She was climbing a fence, running wild; therefore, brought to ED. No previous psych history. CT neg. She was sedated in ED, and admitted. MRI Brain unremarkable. Patient evaluated by Neuro. Review of records show that patient was formally in Hospice and at some point had moved out of state then returned, Cardiology reports that due to her psych problems she is not a candidate for aggressive medical management, Unfortunately we cannot reach family to determine patients compliance. It does appear the patient has been non complaint with medication and on this admission shows generalized anasacar and with concern for Passive congestive hepatic failure. She has also demonstrate intermittent low grade fever on admission with concern for pneumonia. * Patient was treated with initially for SIRS secondary to Pneumonia and also Atrial Fibrillation and following cardiology evaluation, and recommended conservative management due to the patients psychiatric issues. * She was also initially 1013 and it was rescinded * During the stay, and review of all records, we attempted to contact family but to no avail to discuss hospice. * She was noted to be hypotensive and due to the balance in fluids considering her Cardiac status, she received a few small bolus, but remained with i ntermittent Encephalopathy. * She received Haldol in bid to obtain CT head but had PEA arrest a few hours later * Code Blue called as patient was noted to have bradycardia and became unresponsive and pulseless. 2 rounds epi, CPR, then pulse check showed Ventricular fibrillation and 1 shock via defibrillator was delivered with returning of pulse. Patient was intubated and IO for Medication delivery access. IMPRESSION: * Focal infiltrate in the left midlung. Differential diagnosis includes postinflammatory scarring and/or subsegmental atelectasis. LV normal size. Normal LV wall thickness. Severe global LV hypokinesis. Systolic and diastolic septal flattening c/w RV volume and pressure overload. LVEF is 21%. EF 20 - 25%. LVEF severely decreased. Grade III (severe) diastolic dysfunction c/w restrictive physiology. RV moderately dilated. RV wall motion normal. RV systolic function is normal. Abnormal RV diastolic function. LA severely dilated. RA severely dilated. Tricuspid AV. AV mildly thickened. AV opens well. Trace AR. No AV stenosis. MV mildly thickened. Moderate mitral regurgitation. Tricuspid leaflets do not completely coapt. Severe TR. Estimated RAP 15 mmHg. RAP elevated. RVSP is severely elevated. RVSP is underestimated, believed to be severe /Acute Respiratory failure following Cardiac Arrest -VAP precautions -Environmental Protection Geologist following -Attempt weaning today if possible /Hypoglycemia -Blood glucose was 20 during the code -D50 given with good result /Altered mental status, with acute encephalopathy: psych and Neurology are following ?cerebral hypoperfuison contributing vs sepsis normal, Attempt CT head today Haldol PRN /AMY-SECONDARY TO VASOMOTOR NEPHROPATHY Hold lasix Give additional fluids Repeat in AM /SIRS ?underlying PNA doubt based on xray review and lack of fever or leukocytoisis Recheck chest xray Monitor Electrolytes Continue empiric levaquin, she got a few doses on admission check blood culture- NO GROWTH /shock syndrome -Give 250cc of fluids bolus AND Additional today -Decrease BB to 25mg q8hr -Prior Echo reported noted as documented by cardiology On dobutamin drip AND LEVOPHED /Persistently elevated Lactic acidosis -Likely secondary to hypoperfusion /Psychosis: Psych following, rescinded 1013 /Permanent Atrial fib/flutter: On metoprolol, Eliquis resumed /Acute on chronic systolic CHF of EF 20-25%, /Stage D non ischemic cardiomyopathy per cardiology- possible end-stage cardiomyopathy patient has been on hospice before, Hold lasix and BB, and ACEI, she is not allergic to it. Unable to get any history Per cardiology not a candidate for aggressive work up and should consider palliative care per cardiology she was in [facility] on apr 27 2018 and discharged with home hospice /Hyponatremia, due to CHF, na 131 today improved from 122: Nephrology following /Elevated LFT,with elevated T. Bili Likely congestive hepatopathy, Will obtain RUQ US as this will be more tolerated than CT abdomen and pelvis in an agitated pt We will trend. Obtain GI consult if still trending up, although currently stable /Severe protein calorie malnutrition: [employer] consulted /Hypokalemia: replace DVT prophylaxis: Patient is on Eliquis POOR PROGNOSIS. Will discuss hospice. Discussed with cardiology and Renal. The high probability of a clinically significant, sudden or life threatening deterioration of the [cardiac, pulmonary, hepatic] system(s) required my full and direct attention, intervention and personal management. The aggregate critical care time was [35] minutes. This time is in addition to time spent performing reported procedures but includes the following: [x] Data Review and interpretation [x] Patient assessment and monitoring of vital signs [x] Documentation [x] Medication orders and management History Interval history: Patient seen and examined this morning, remains intubated, but awake and following some commands. Although still with some element of confusion. No other adverse event reported by Nursing staff. Hospitalist Physical - Physical exam Narrative exam: Constitutional: chronically ill appearing, lethargic ON Mechanical ventilatory support Head: Normocephalic atraumatic Eyes: Pupils are equal round and reactive to light, Jaundice Nose: No enlarged turbinates, no septal deviation. Mouth: ETT inplace. Moist mucous membranes. Neck: Supple no thyromegaly. No bruit. No JVD Heart: Regular rate and rhythm, S1-S2 displaced towards the apex. No rubs murmurs or gallop Lungs: Clear to auscultation bilaterally. no rales or rhonchi Abdomen: Soft, nontender. Bowel sound are present. Extremities: 1+ pitting pedal edema, no cyanosis, no clubbing. generalized anasacar Neuro: awake, can not fully assess orientation due to current status Skin: No rashes or hyperpigmented spots Musculoskeletal system: No joint pain or swelling Hematological: No petechia or subcutanous hemorrhages. Immunological: No multiple septic spots on the skin Lymphatic: No generalized lymphadenopathy Psychiatry: unable to fully assess - Constitutional Vitals: Temp Pulse Resp BP Pulse Ox 97.4 F L 94 H 18 132/64 100 06/28/18 08:00 06/28/18 09:15 06/28/18 09:15 06/28/18 09:15 06/28/18 09:15 General appearance: Present: no acute distress Results - Labs CBC & Chem 7: 06/29/18 06:40 06/29/18 06:40 Labs: Laboratory Last Values WBC 15.7 K/mm3 (4.5-11.0) H 06/28/18 08:30 RBC 4.88 M/mm3 (3.65-5.03) 06/28/18 08:30 Hgb 12.1 gm/dl (10.1-14.3) 06/28/18 08:30 Hct 37.4 % (30.3-42.9) 06/28/18 08:30 MCV 77 fl (79-97) L 06/28/18 08:30 MCH 25 pg (28-32) L 06/28/18 08:30 MCHC 32 % (30-34) 06/28/18 08:30 RDW 18.5 % (13.2-15.2) H 06/28/18 08:30 Plt Count 112 K/mm3 (140-440) L 06/28/18 08:30 Lymph % (Auto) 6.0 % (13.4-35.0) L 06/28/18 08:30 [place] % (Auto) 10.0 % (0.0-7.3) H 06/28/18 08:30 Eos % (Auto) 0.3 % (0.0-4.3) 06/28/18 08:30 Baso % (Auto) 0.3 % (0.0-1.8) 06/28/18 08:30 Lymph # 0.9 K/mm3 (1.2-5.4) L 06/28/18 08:30 [place] # 1.6 K/mm3 (0.0-0.8) H 06/28/18 08:30 Eos # 0.1 K/mm3 (0.0-0.4) 06/28/18 08:30 Baso # 0.0 K/mm3 (0.0-0.1) 06/28/18 08:30 Add Manual Diff Complete 06/27/18 09:29 Total Counted 100 06/27/18 09:29 Seg Neutrophils % 83.4 % (40.0-70.0) H 06/28/18 08:30 Seg Neuts % (Manual) 91.0 % (40.0-70.0) H 06/27/18 09:29 Band Neutrophils % 0 % 06/27/18 09:29 Lymphocytes % (Manual) 3.0 % (13.4-35.0) L 06/27/18 09:29 Reactive Lymphs % (Man) 0 % 06/27/18 09:29 Monocytes % (Manual) 6.0 % (0.0-7.3) 06/27/18 09:29 Eosinophils % (Manual) 0 % (0.0-4.3) 06/27/18 09:29 Basophils % (Manual) 0 % (0.0-1.8) 06/27/18 09:29 Metamyelocytes % 0 % 06/27/18 09:29 Myelocytes % 0 % 06/27/18 09:29 Promyelocytes % 0 % 06/27/18 09:29 Blast Cells % 0 % 06/27/18 09:29 Nucleated RBC % Not Reportable 06/27/18 09:29 Seg Neutrophils # 13.1 K/mm3 (1.8-7.7) H 06/28/18 08:30 Seg Neutrophils # Man 14.8 K/mm3 (1.8-7.7) H 06/27/18 09:29 Band Neutrophils # 0.0 K/mm3 06/27/18 09:29 Lymphocytes # (Manual) 0.5 K/mm3 (1.2-5.4) L 06/27/18 09:29 Abs React Lymphs (Man) 0.0 K/mm3 06/27/18 09:29 Monocytes # (Manual) 1.0 K/mm3 (0.0-0.8) H 06/27/18 09:29 Eosinophils # (Manual) 0.0 K/mm3 (0.0-0.4) 06/27/18 09:29 Basophils # (Manual) 0.0 K/mm3 (0.0-0.1) 06/27/18 09:29 Metamyelocytes # 0.0 K/mm3 06/27/18 09:29 Myelocytes # 0.0 K/mm3 06/27/18 09:29 Promyelocytes # 0.0 K/mm3 06/27/18 09:29 Blast Cells # 0.0 K/mm3 06/27/18 09:29 WBC Morphology Not Reportable 06/27/18 09:29 Hypersegmented Neuts Not Reportable 06/27/18 09:29 Hyposegmented Neuts Not Reportable 06/27/18 09:29 Hypogranular Neuts Not Reportable 06/27/18 09:29 Smudge Cells Not Reportable 06/27/18 09:29 Toxic Granulation Not Reportable 06/27/18 09:29 Toxic Vacuolation Not Reportable 06/27/18 09:29 Dohle Bodies Not Reportable 06/27/18 09:29 Pelger-Huet Anomaly Not Reportable 06/27/18 09:29 Sushma Rods Not Reportable 06/27/18 09:29 Platelet Estimate Consistent w auto 06/27/18 09:29 Clumped Platelets Not Reportable 06/27/18 09:29 Plt Clumps, EDTA Not Reportable 06/27/18 09:29 Large Platelets Not Reportable 06/27/18 09:29 Giant Platelets Not Reportable 06/27/18 09:29 Platelet Satelliting Not Reportable 06/27/18 09:29 Plt Morphology Comment Not Reportable 06/27/18 09:29 RBC Morphology Not Reportable 06/27/18 09:29 Dimorphic RBCs Not Reportable 06/27/18 09:29 Polychromasia Not Reportable 06/27/18 09:29 Hypochromasia Few 06/27/18 09:29 Poikilocytosis 2+ 06/27/18 09:29 Anisocytosis Not Reportable 06/27/18 09:29 Microcytosis Rare 06/27/18 09:29 Macrocytosis Not Reportable 06/27/18 09:29 Spherocytes Not Reportable 06/27/18 09:29 Pappenheimer Bodies Not Reportable 06/27/18 09:29 Sickle Cells Not Reportable 06/27/18 09:29 Target Cells 2+ 06/27/18 09:29 Tear Drop Cells Not Reportable 06/27/18 09:29 Ovalocytes Rare 06/27/18 09:29 Helmet Cells Not Reportable 06/27/18 09:29 [place] Bodies Not Reportable 06/27/18 09:29 [place] Rings Not Reportable 06/27/18 09:29 [place] Cells Not Reportable 06/27/18 09:29 Bite Cells Not Reportable 06/27/18 09:29 Crenated Cell Not Reportable 06/27/18 09:29 Elliptocytes Not Reportable 06/27/18 09:29 Acanthocytes (Spur) Not Reportable 06/27/18 09:29 Rouleaux Not Reportable 06/27/18 09:29 Hemoglobin C Crystals Not Reportable 06/27/18 09:29 Schistocytes Not Reportable 06/27/18 09:29 Malaria parasites Not Reportable 06/27/18 09:29 Saqib Bodies Not Reportable 06/27/18 09:29 Hem Pathologist Commnt No 06/27/18 09:29 POC ABG pH 7.584 (7.35-7.45) H 06/27/18 12:50 POC ABG pCO2 32.8 (35-45) L 06/27/18 12:50 POC ABG pO2 109 (80-105) H 06/27/18 12:50 POC ABG HCO3 31.0 (22-26 mml/L) 06/27/18 12:50 POC ABG Total CO2 32 (23-27mmol/L) 06/27/18 12:50 POC ABG O2 Sat 99 06/27/18 12:50 POC ABG Base Excess 9 ((-2) - (+3)mmol/L) 06/27/18 12:50 FiO2 40 % 06/27/18 12:50 Sodium 134 mmol/L (137-145) L 06/28/18 05:00 Potassium 2.6 mmol/L (3.6-5.0) L* D 06/28/18 05:00 Chloride 92.3 mmol/L (98-107) L 06/28/18 05:00 Carbon Dioxide 32 mmol/L (22-30) H 06/28/18 05:00 Anion Gap 12 mmol/L 06/28/18 05:00 BUN 34 mg/dL (7-17) H 06/28/18 05:00 Creatinine 1.8 mg/dL (0.7-1.2) H 06/28/18 05:00 Estimated GFR 34 ml/min 06/28/18 05:00 BUN/Creatinine Ratio 19 % 06/28/18 05:00 Glucose 127 mg/dL (65-100) H 06/28/18 05:00 POC Glucose 101 (70-105) 06/28/18 05:29 Hemoglobin A1c 5.5 % (4-6) 06/17/18 15:08 Osmolality 276 Mosm/kg 06/20/18 07:31 Lactic Acid 2.40 mmol/L (0.7-2.0) H* 06/28/18 08:30 Uric Acid 9.2 mg/dL (3.5-7.6) H 06/21/18 16:27 Calcium 7.5 mg/dL (8.4-10.2) L 06/28/18 05:00 Phosphorus 2.50 mg/dL (2.5-4.5) 06/20/18 07:31 Magnesium 1.70 mg/dL (1.7-2.3) 06/21/18 16:27 Total Bilirubin 3.50 mg/dL (0.1-1.2) H 06/28/18 05:00 Direct Bilirubin 1.6 mg/dL (0-0.2) H 06/17/18 11:00 Indirect Bilirubin -1.4 mg/dL 06/17/18 11:00 AST 226 units/L (5-40) H 06/28/18 05:00 ALT 60 units/L (7-56) H 06/28/18 05:00 Alkaline Phosphatase 172 units/L (35-129) H 06/28/18 05:00 Ammonia 38.0 umol/L (25-60) 06/25/18 16:02 Total Creatine Kinase TNR 06/26/18 19:52 CK-MB (CK-2) TNR 06/26/18 19:52 CK-MB (CK-2) Rel Index TNR 06/26/18 19:52 Troponin T TNR 06/26/18 19:52 Total Protein 4.2 g/dL (6.3-8.2) L 06/28/18 05:00 Albumin 2.0 g/dL (3.9-5) L 06/28/18 05:00 Albumin/Globulin Ratio 0.9 % 06/28/18 05:00 Vitamin B1 <6 nmol/L (8-30) L 06/21/18 16:27 Vitamin B12 1598 pg/mL (211-911) H 06/20/18 20:53 25-OH Vitamin D Total 10 ng/mL (30-100) L 06/20/18 20:53 25-Hydroxy Vitamin D2 . 06/20/18 20:53 25-Hydroxy Vitamin D3 . 06/20/18 20:53 Folate 14.18 ng/mL (7.3-26.0) 06/20/18 20:53 TSH 1.540 mlU/mL (0.270-4.200) 06/27/18 09:29 Free T4 1.78 ng/dL (0.76-1.46) H 06/27/18 09:29 T3 (GILSON) 58 ng/dL (76-181) L 06/20/18 16:51 Urine Color Caryl (Yellow) 06/16/18 Unknown Urine Turbidity Clear (Clear) 06/16/18 Unknown Urine pH 5.0 (5.0-7.0) 06/16/18 Unknown Ur Specific [place] [employer] 1.025 (1.003-1.030) 06/16/18 Unknown Urine Protein 100 mg/dl mg/dL (Negative) 06/16/18 Unknown Urine Glucose (UA) 50 mg/dL (Negative) 06/16/18 Unknown Urine Ketones Neg mg/dL (Negative) 06/16/18 Unknown Urine Blood Neg (Negative) 06/16/18 Unknown Urine Nitrite Neg (Negative) 06/16/18 Unknown Urine Bilirubin Neg (Negative) 06/16/18 Unknown Urine Urobilinogen 4.0 mg/dL (<2.0) 06/16/18 Unknown Ur Leukocyte Esterase Neg (Negative) 06/16/18 Unknown Urine WBC (Auto) 4.0 /HPF (0.0-6.0) 06/16/18 Unknown Urine RBC (Auto) 5.0 /HPF (0.0-6.0) 06/16/18 Unknown U Epithel Cells (Auto) 7.0 /HPF (0-13.0) 06/16/18 Unknown Hyaline Casts 49 /LPF 06/16/18 Unknown Urine Mucus Few /HPF 06/16/18 Unknown Urine Osmolality 413 Mosm/kg 06/19/18 Unknown Urine Creatinine 61.7 mg/dL (0.1-20.0) H 06/19/18 Unknown Urine Total Protein 32 mg/dL (5-11.8) H 06/19/18 Unknown Salicylates 5.5 mg/dL (2.8-20.0) 06/16/18 21:43 Urine Opiates Screen Presumptive negative 06/16/18 Unknown Urine Methadone Screen Presumptive negative 06/16/18 Unknown Acetaminophen < 5.0 ug/mL (10.0-30.0) L 06/16/18 21:43 Ur Barbiturates Screen Presumptive negative 06/16/18 Unknown Ur Phencyclidine Scrn Presumptive negative 06/16/18 Unknown Ur Amphetamines Screen Presumptive negative 06/16/18 Unknown U Benzodiazepines Scrn Presumptive negative 06/16/18 Unknown Urine Cocaine Screen Presumptive negative 06/16/18 Unknown U Marijuana (THC) Screen Presumptive negative 06/16/18 Unknown Drugs of Abuse Note Disclamer 06/16/18 Unknown Plasma/Serum Alcohol < 0.01 % (0-0.07) 06/16/18 21:43 Thyroglobulin Antibody See scanned result 06/20/18 16:51 Thyroid Peroxidase Ab See scanned result 06/20/18 16:51 HIV 1&2 Antibody Rapid Non react (Non React) 06/21/18 16:27 HIV P24 Antigen Non react (Non React) 06/21/18 16:27 Active Medications - Current Medications Current Medications: Generic Name Dose Route Start Last Admin Trade Name Freq PRN Reason Stop Dose Admin Acetaminophen 650 mg 06/17/18 03:33 06/26/18 09:09 Tylenol PO 650 mg Q4H PRN Administration Fever >101 Albuterol/Ipratropium 1 ampul 06/27/18 14:00 06/28/18 08:38 Duoneb *Not For Prn Use* IH 1 ampul TIDRT JEANETTE Administration Apixaban 5 mg 06/20/18 16:00 06/27/18 21:43 Eliquis PO 5 mg Q12HR JEANETTE Administration Protocol Atorvastatin Calcium 20 mg 06/19/18 22:00 06/27/18 21:41 Lipitor PO 20 mg QHS JEANETTE Administration Digoxin 0.125 mg 06/24/18 17:00 06/27/18 18:15 Lanoxin PO 0.125 mg DAILY@1700 JEANETTE Administration Famotidine 20 mg 06/27/18 12:00 06/27/18 12:02 Pepcid PO 20 mg DAILY JEANETTE Administration Norepinephrine 4 mg in 250 mls @ 7.5 mls/hr 06/26/18 12:00 06/28/18 09:27 Levophed Drip 4 Mg/Ns 250 Ml IV 2 mcg/min TITR JEANETTE 7.5 mls/hr Administration Protocol 2 MCG/MIN Vasopressin 20 unit/ Sodium 101 mls @ 9.09 mls/hr 06/26/18 12:00 Chloride IV TITR JEANETTE Protocol 0.03 UNITS/MIN Dobutamine HCl/Dextrose 500 mg in 250 mls @ 5.918 mls/hr 06/27/18 13:00 06/28/18 07:40 Dobutrex Drip 500mg/D5w 250ml IV 5 mcg/kg/min DIRECT JEANETTE 11.835 mls/hr Administration 2.5 MCG/KG/MIN Levofloxacin/Dextrose 750 mg in 150 mls @ 100 mls/hr 06/29/18 10:00 Levaquin 750mg/150ml IV Q48HR JEANETTE Protocol Potassium Chloride 10 meq in 100 mls @ 100 mls/hr 06/28/18 09:00 Kcl 10meq/100ml IV 06/28/18 12:59 Q1H JEANETTE Magnesium Sulfate 2 gm in 50 mls @ 25 mls/hr 06/28/18 10:00 Magnesium Sulfate 2gm/50ml IV 06/28/18 11:59 ONCE ONE Lactulose 20 gm 06/25/18 12:00 06/28/18 05:02 Cephulac PO 20 gm Q6HR JEANETTE Administration Metoclopramide HCl 5 mg 06/27/18 14:00 06/28/18 05:02 Reglan IV 06/30/18 06:01 5 mg Q8HR JEANETTE Administration Metoprolol Tartrate 25 mg 06/25/18 09:00 06/28/18 01:30 Lopressor PO Not Given Q8H JEANETTE Ondansetron HCl 4 mg 06/17/18 03:24 Zofran IV Q8H PRN Nausea And Vomiting Sertraline HCl 50 mg 06/24/18 10:00 06/27/18 11:12 Zoloft PO 50 mg DAILY JEANETTE Administration Nutrition/Malnutrition Assess - Dietary Evaluation Nutrition/Malnutrition Findings: Nutrition Notes Start: 06/24/18 15:14 Freq: Status: Active Protocol: Document 06/27/18 16:27 MARITZA (Rec: 06/27/18 16:31 [facility] [id number]) Nutrition Notes Initial or Follow up Reassessment Current Diagnosis Acute Kidney Injury, Hypertension,Heart Failure, Respiratory Failure Other Pertinent Diagnosis s/p cardiac arrest, psychosis, AMS Current Diet Cardiac/Consistent CHO Labs/Tests Na 135 K 3.5 BUN 37 Cr 2.1 Elevated LFTs Pertinent Medications Dobutamine gtt, Lactulose, Reglan, Levophed gtt, Vasopressin gtt, Na bicarb in D5W at 75ml/hr Height 5 ft 5 in Weight 78.9 kg [place] Body Weight (kg) 56.81 BMI 28.9 Subjective/Other Information Pt transferred from telemetry and is s/p code blue. No plans for EN support at this time. Burn Absent Trauma Absent #1 Nutrition Diagnosis Inadequate oral intake As Evidenced by Signs and Symptoms pt NPO and on vent support Diagnosis Progress(for reassessment Continues documentation) Is patient on ventilator? Yes Is Patient Ambulatory and/or Out of Bed No REE-([facility]-confined to bed) [phone] Calculation Used for Recommendations [facility] Additional Notes Pro needs 1.2-2g/k-158g/ day Fluid needs 1ml/kcall Nutrition Intervention Nutrition Support: Start TF if necessary Goal #1 Either advance diet or start EN support to meet nutrient needs Follow-Up By: 06/29/18 Additional Comments F/U: TF order vs. diet advancement, vent status
[2018-06-28] MEDS: PEPCID PO SCH (09:58)
[2018-06-28] MEDS: ELIQUIS PO SCH ×2 (09:58→23:12)
[2018-06-28] MEDS: ZOLOFT PO SCH (09:58)
[2018-06-28] MEDS: KCL 10MEQ/100ML 10 MEQ/100 ML BAG IV SCH ×4 (09:59→13:36)
[2018-06-28] MEDS ORDERED: MAGNESIUM SULFATE 2GM/50ML 2 GM/50 ML BAG IV ONE (10:00)
--- NOTE | 2018-06-28 10:23 | Progress Note ---
Assessment and Plan - Patient Problems (1) Acute kidney failure with tubular necrosis Current Visit: Yes Status: Acute Plan to address problem: acute tubular necrosis secondary to cardiac arrest. pt remains non-oliguric, renal function stabilizing with hemodynamic stabilization. avoid nephrotoxins, IV contrast. (2) Hyponatremia with decreased serum osmolality Current Visit: Yes Status: Acute Plan to address problem: Likely in the setting of fluid overload. resume lasix once BP stable and K normalized. We will continue to monitor on a daily basis. (3) Cardiac arrest Current Visit: Yes Status: Acute Plan to address problem: s/p code blue, ACLS with ROSC, follow cardiology recommendations (4) Fluid overload Current Visit: Yes Status: Chronic Qualifiers: Hypervolemia type: other Qualified Code(s): E87.79 - Other fluid overload Plan to address problem: cont fluid restrictions and appropriate low-sodium diet given her history of end-stage heart disease and cardiomyopathy. resume diuresis once BP stable/K normalized. (5) Acute on chronic systolic heart failure Current Visit: No Status: Acute Plan to address problem: Follow up with further recommendations per cardiology. Will continue on current diuretic regimen along with appropriate fluid restrictions and low sodium diet. (6) Altered mental status Current Visit: Yes Status: Acute Plan to address problem: We'll continue to monitor closely. (7) HTN (hypertension) Current Visit: No Status: Chronic Plan to address problem: Continue on current regimen and will monitor. Subjective Date of service: 06/28/18 Principal diagnosis: altered mental status, psychosis, chronic systolic heart failure, Interval history: pt remains intubated, opening eyes on tactile stimuli Objective - Vital Signs Vital signs: Vital Signs - 12hr 06/27/18 06/27/18 06/27/18 22:31 22:41 22:45 Temperature Pulse Rate 96 H 94 H 96 H Pulse Rate [ Anterior Bilateral] Pulse Rate [ From Monitor] Respiratory 16 15 16 Rate Respiratory Rate [Anterior Bilateral] Blood Pressure 90/72 90/72 99/70 O2 Sat by Pulse 100 100 100 Oximetry 06/27/18 06/27/18 06/27/18 23:00 23:01 23:03 Temperature 99.2 F Pulse Rate 94 H 96 H Pulse Rate [ Anterior Bilateral] Pulse Rate [ From Monitor] Respiratory 14 13 Rate Respiratory Rate [Anterior Bilateral] Blood Pressure 99/70 136/71 O2 Sat by Pulse 93 92 Oximetry 06/27/18 06/27/18 06/27/18 23:15 23:31 23:45 Temperature Pulse Rate 94 H 96 H 96 H Pulse Rate [ Anterior Bilateral] Pulse Rate [ From Monitor] Respiratory 12 13 10 L Rate Respiratory Rate [Anterior Bilateral] Blood Pressure 130/106 154/136 154/136 O2 Sat by Pulse 94 100 99 Oximetry 06/27/18 06/28/18 06/28/18 23:51 00:00 00:01 Temperature Pulse Rate 94 H 96 H 94 H Pulse Rate [ Anterior Bilateral] Pulse Rate [ 95 H From Monitor] Respiratory 18 13 Rate Respiratory Rate [Anterior Bilateral] Blood Pressure 154/36 119/42 O2 Sat by Pulse 99 100 98 Oximetry 06/28/18 06/28/18 06/28/18 00:15 00:31 00:45 Temperature Pulse Rate 96 H 96 H 95 H Pulse Rate [ Anterior Bilateral] Pulse Rate [ From Monitor] Respiratory 12 13 13 Rate Respiratory Rate [Anterior Bilateral] Blood Pressure 119/42 204/173 107/42 O2 Sat by Pulse 95 98 99 Oximetry 06/28/18 06/28/18 06/28/18 01:00 01:15 01:30 Temperature Pulse Rate 97 H 94 H 89 Pulse Rate [ Anterior Bilateral] Pulse Rate [ From Monitor] Respiratory 17 13 12 Rate Respiratory Rate [Anterior Bilateral] Blood Pressure 97/58 107/64 103/58 O2 Sat by Pulse 98 98 97 Oximetry 06/28/18 06/28/18 06/28/18 01:37 01:45 02:00 Temperature Pulse Rate 95 H 94 H 93 H Pulse Rate [ Anterior Bilateral] Pulse Rate [ 92 H From Monitor] Respiratory 18 15 12 Rate Respiratory Rate [Anterior Bilateral] Blood Pressure 117/77 104/57 O2 Sat by Pulse 100 99 99 Oximetry 06/28/18 06/28/18 06/28/18 02:15 02:30 02:45 Temperature Pulse Rate 93 H 91 H 92 H Pulse Rate [ Anterior Bilateral] Pulse Rate [ From Monitor] Respiratory 16 11 L 19 Rate Respiratory Rate [Anterior Bilateral] Blood Pressure 112/60 O2 Sat by Pulse 98 98 99 Oximetry 06/28/18 06/28/18 06/28/18 03:00 03:15 03:17 Temperature Pulse Rate 91 H 93 H Pulse Rate [ Anterior Bilateral] Pulse Rate [ 92 H From Monitor] Respiratory 11 L 10 L 18 Rate Respiratory Rate [Anterior Bilateral] Blood Pressure 93/56 93/56 O2 Sat by Pulse 98 98 100 Oximetry 06/28/18 06/28/18 06/28/18 03:30 03:35 03:45 Temperature 98.5 F Pulse Rate 91 H 92 H Pulse Rate [ Anterior Bilateral] Pulse Rate [ From Monitor] Respiratory 14 13 Rate Respiratory Rate [Anterior Bilateral] Blood Pressure 102/69 102/69 O2 Sat by Pulse 99 99 Oximetry 06/28/18 06/28/18 06/28/18 04:00 04:15 04:30 Temperature Pulse Rate 92 H 93 H 96 H Pulse Rate [ Anterior Bilateral] Pulse Rate [ From Monitor] Respiratory 13 12 15 Rate Respiratory Rate [Anterior Bilateral] Blood Pressure 104/73 113/63 120/58 O2 Sat by Pulse 99 97 95 Oximetry 06/28/18 06/28/18 06/28/18 04:37 04:45 05:00 Temperature Pulse Rate 95 H 95 H 91 H Pulse Rate [ Anterior Bilateral] Pulse Rate [ From Monitor] Respiratory 13 11 L Rate Respiratory Rate [Anterior Bilateral] Blood Pressure 120/58 120/58 107/66 O2 Sat by Pulse 98 98 96 Oximetry 06/28/18 06/28/18 06/28/18 05:15 05:31 05:45 Temperature Pulse Rate 91 H 94 H 96 H Pulse Rate [ Anterior Bilateral] Pulse Rate [ From Monitor] Respiratory 15 13 12 Rate Respiratory Rate [Anterior Bilateral] Blood Pressure 125/62 115/53 112/59 O2 Sat by Pulse 96 95 93 Oximetry 06/28/18 06/28/18 06/28/18 05:51 06:00 06:15 Temperature Pulse Rate 93 H 97 H Pulse Rate [ Anterior Bilateral] Pulse Rate [ 92 H From Monitor] Respiratory 18 14 20 Rate Respiratory Rate [Anterior Bilateral] Blood Pressure 116/56 116/56 O2 Sat by Pulse 100 96 97 Oximetry 06/28/18 06/28/18 06/28/18 06:31 06:45 07:01 Temperature Pulse Rate 95 H 95 H 94 H Pulse Rate [ Anterior Bilateral] Pulse Rate [ From Monitor] Respiratory 20 19 15 Rate Respiratory Rate [Anterior Bilateral] Blood Pressure 102/76 102/76 99/42 O2 Sat by Pulse 99 94 94 Oximetry 06/28/18 06/28/18 06/28/18 07:15 07:30 07:45 Temperature Pulse Rate 92 H 87 90 Pulse Rate [ Anterior Bilateral] Pulse Rate [ From Monitor] Respiratory 13 20 21 Rate Respiratory Rate [Anterior Bilateral] Blood Pressure 106/56 97/58 115/70 O2 Sat by Pulse 95 97 97 Oximetry 06/28/18 06/28/18 06/28/18 08:00 08:15 08:18 Temperature 97.4 F L Pulse Rate 92 H 93 H 103 H Pulse Rate [ Anterior Bilateral] Pulse Rate [ From Monitor] Respiratory 13 13 22 Rate Respiratory Rate [Anterior Bilateral] Blood Pressure 117/61 118/76 128/78 O2 Sat by Pulse 97 97 99 Oximetry 06/28/18 06/28/18 06/28/18 08:20 08:30 08:36 Temperature Pulse Rate 94 H Pulse Rate [ 96 H 95 H Anterior Bilateral] Pulse Rate [ From Monitor] Respiratory 20 Rate Respiratory 17 16 Rate [Anterior Bilateral] Blood Pressure 128/78 O2 Sat by Pulse 100 Oximetry 06/28/18 06/28/18 06/28/18 08:45 09:00 09:15 Temperature Pulse Rate 94 H 93 H 94 H Pulse Rate [ Anterior Bilateral] Pulse Rate [ From Monitor] Respiratory 22 16 18 Rate Respiratory Rate [Anterior Bilateral] Blood Pressure 128/78 132/64 132/64 O2 Sat by Pulse 100 100 100 Oximetry 06/28/18 10:07 Temperature Pulse Rate 91 H Pulse Rate [ Anterior Bilateral] Pulse Rate [ From Monitor] Respiratory Rate Respiratory Rate [Anterior Bilateral] Blood Pressure 132/64 O2 Sat by Pulse Oximetry - General Appearance General appearance: chronically ill, intubated EENT: ATNC, PERRL, mucous membranes moist Neck: no JVD Respiratory: Present: Decreased Breath Sounds Cardiology: regular, S1S2 Gastrointestinal: normoactive bowel sounds Integumentary: no rash, other (+ edema b/l LE ) Neurologic: other (intubated ) - Lab 06/28/18 08:30 06/28/18 05:00 Most recent lab results Calcium 7.5 mg/dL (8.4-10.2) L 06/28/18 05:00 Phosphorus 2.50 mg/dL (2.5-4.5) 06/20/18 07:31 Magnesium 1.70 mg/dL (1.7-2.3) 06/21/18 16:27 Urine Creatinine 61.7 mg/dL (0.1-20.0) H 06/19/18 Unknown Urine Total Protein 32 mg/dL (5-11.8) H 06/19/18 Unknown Medications & Allergies - Medications Allergies/Adverse Reactions: Allergies Penicillins Allergy (Verified 09/04/17 14:11) Unknown aspirin Adverse Reaction (Verified 09/04/17 14:10) Nausea NSAIDS (Non-Steroidal Anti-Inflamma Adverse Reaction (Verified 09/04/17 14:10) Nausea Pork/Porcine Containing Products Adverse Reaction (Verified 11/01/17 09:04) Nausea Home Medications: Home Medications Medication Instructions Recorded Confirmed Last Taken Type Apixaban [Eliquis] 5 mg PO DAILY 09/06/17 10/31/17 Unknown History AtorvaSTATin [Lipitor] 20 mg PO DAILY 09/06/17 10/31/17 Unknown History Loperamide HCl [Loperamide] 2 mg PO DAILY 09/06/17 10/31/17 Unknown History Sertraline [Zoloft] 50 mg PO DAILY 09/06/17 10/31/17 10/17/17 10:00 History Sucralfate [Carafate] 1 gm PO DAILY 09/06/17 10/31/17 Unknown History Carvedilol [Coreg] 12.5 mg PO BID #60 tablet 09/08/17 10/31/17 Unknown Rx Lisinopril [Zestril TAB] 5 mg PO QDAY #30 tablet 09/08/17 10/31/17 Unknown Rx Doxycycline [Vibramycin CAP] 100 mg PO Q12HR #10 capsule 11/02/17 Unknown Rx Furosemide [Lasix] 20 mg PO QDAY #30 tablet 11/02/17 Unknown Rx Active Medications: Generic Name Dose Route Start Last Admin Trade Name Freq PRN Reason Stop Dose Admin Acetaminophen 650 mg 06/17/18 03:33 06/26/18 09:09 Tylenol PO 650 mg Q4H PRN Administration Fever >101 Albuterol/Ipratropium 1 ampul 06/27/18 14:00 06/28/18 08:38 Duoneb *Not For Prn Use* IH 1 ampul TIDRT JEANETTE Administration Apixaban 5 mg 06/20/18 16:00 06/28/18 09:58 Eliquis PO 5 mg Q12HR JEANETTE Administration Protocol Atorvastatin Calcium 20 mg 06/19/18 22:00 06/27/18 21:41 Lipitor PO 20 mg QHS JEANETTE Administration Digoxin 0.125 mg 06/24/18 17:00 06/27/18 18:15 Lanoxin PO 0.125 mg DAILY@1700 JEANETTE Administration Famotidine 20 mg 06/27/18 12:00 06/28/18 09:58 Pepcid PO 20 mg DAILY JEANETTE Administration Norepinephrine 4 mg in 250 mls @ 7.5 mls/hr 06/26/18 12:00 06/28/18 09:57 Levophed Drip 4 Mg/Ns 250 Ml IV 0 mcg/min TITR JEANETTE 0 mls/hr Titration Protocol 2 MCG/MIN Vasopressin 20 unit/ Sodium 101 mls @ 9.09 mls/hr 06/26/18 12:00 Chloride IV TITR JEANETTE Protocol 0.03 UNITS/MIN Dobutamine HCl/Dextrose 500 mg in 250 mls @ 5.918 mls/hr 06/27/18 13:00 06/28/18 07:40 Dobutrex Drip 500mg/D5w 250ml IV 5 mcg/kg/min DIRECT JEANETTE 11.835 mls/hr Administration 2.5 MCG/KG/MIN Levofloxacin/Dextrose 750 mg in 150 mls @ 100 mls/hr 06/29/18 10:00 Levaquin 750mg/150ml IV Q48HR JEANETTE Protocol Potassium Chloride 10 meq in 100 mls @ 100 mls/hr 06/28/18 09:00 06/28/18 09:59 Kcl 10meq/100ml IV 06/28/18 12:59 100 mls/hr Q1H JEANETTE Administration Magnesium Sulfate 2 gm in 50 mls @ 25 mls/hr 06/28/18 10:00 Magnesium Sulfate 2gm/50ml IV 06/28/18 11:59 ONCE ONE Lactulose 20 gm 06/25/18 12:00 06/28/18 05:02 Cephulac PO 20 gm Q6HR JEANETTE Administration Metoclopramide HCl 5 mg 06/27/18 14:00 06/28/18 05:02 Reglan IV 06/30/18 06:01 5 mg Q8HR JEANETTE Administration Metoprolol Tartrate 25 mg 06/25/18 09:00 06/28/18 10:07 Lopressor PO Not Given Q8H JEANETTE Ondansetron HCl 4 mg 06/17/18 03:24 Zofran IV Q8H PRN Nausea And Vomiting Sertraline HCl 50 mg 06/24/18 10:00 06/28/18 09:58 Zoloft PO 50 mg DAILY JEANETTE Administration
--- NOTE | 2018-06-28 12:45 | Progress Note ---
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 Bili Likely congestive hepatopathy, Severe protein calorie malnutrition Hypokalemia - continue bronchodilators with pulmonary hygiene per RT - continue Supplemental oxygen keep O2 sat>0% - continue Eliquis - continue Stress ulcer prophylaxis with Pepcid - continue glycemic control with accuchecks and SSI with target BG 140 - 180 mg/dl - Avoid hypoglycemia - Correct electrolytes as indicated - PT/OT/ROM exercises as tolerated - mobility priotocol for pressure ulcer prophylaxis - continue other care per attending / other consultants .... re-evaluate in am & prn Subjective Date of service: 06/28/18 Principal diagnosis: altered mental status, psychosis, chronic systolic heart failure, Interval history: Patient is seen today for: Cardiopulmonary arrest; Acute hypoxic respiratory failure; Hypoglycemia; Altered mental status, with acute encephalopathy; AMY; SIRS; Shock syndrome Seen and examined at bedside; 24hour events reviewed; nursing and respiratory care staff consulted; no adverse overnight events reported to me; resting in bed; extubated and doing decently well; remains on supplemental oxygen; off dobutamine; denies acute chest pains or palpitations Objective Vital Signs - 12hr 06/28/18 06/28/18 06/28/18 01:00 01:15 01:30 Temperature Pulse Rate 97 H 94 H 89 Pulse Rate [ Anterior Bilateral] Pulse Rate [ Apical] Pulse Rate [ From Monitor] Respiratory 17 13 12 Rate Respiratory Rate [Anterior Bilateral] Blood Pressure 97/58 107/64 103/58 O2 Sat by Pulse 98 98 97 Oximetry 06/28/18 06/28/18 06/28/18 01:37 01:45 02:00 Temperature Pulse Rate 95 H 94 H 93 H Pulse Rate [ Anterior Bilateral] Pulse Rate [ Apical] Pulse Rate [ 92 H From Monitor] Respiratory 18 15 12 Rate Respiratory Rate [Anterior Bilateral] Blood Pressure 117/77 104/57 O2 Sat by Pulse 100 99 99 Oximetry 06/28/18 06/28/18 06/28/18 02:15 02:30 02:45 Temperature Pulse Rate 93 H 91 H 92 H Pulse Rate [ Anterior Bilateral] Pulse Rate [ Apical] Pulse Rate [ From Monitor] Respiratory 16 11 L 19 Rate Respiratory Rate [Anterior Bilateral] Blood Pressure 112/60 O2 Sat by Pulse 98 98 99 Oximetry 06/28/18 06/28/18 06/28/18 03:00 03:15 03:17 Temperature Pulse Rate 91 H 93 H Pulse Rate [ Anterior Bilateral] Pulse Rate [ Apical] Pulse Rate [ 92 H From Monitor] Respiratory 11 L 10 L 18 Rate Respiratory Rate [Anterior Bilateral] Blood Pressure 93/56 93/56 O2 Sat by Pulse 98 98 100 Oximetry 06/28/18 06/28/18 06/28/18 03:30 03:35 03:45 Temperature 98.5 F Pulse Rate 91 H 92 H Pulse Rate [ Anterior Bilateral] Pulse Rate [ Apical] Pulse Rate [ From Monitor] Respiratory 14 13 Rate Respiratory Rate [Anterior Bilateral] Blood Pressure 102/69 102/69 O2 Sat by Pulse 99 99 Oximetry 06/28/18 06/28/18 06/28/18 04:00 04:15 04:30 Temperature Pulse Rate 92 H 93 H 96 H Pulse Rate [ Anterior Bilateral] Pulse Rate [ Apical] Pulse Rate [ From Monitor] Respiratory 13 12 15 Rate Respiratory Rate [Anterior Bilateral] Blood Pressure 104/73 113/63 120/58 O2 Sat by Pulse 99 97 95 Oximetry 06/28/18 06/28/18 06/28/18 04:37 04:45 05:00 Temperature Pulse Rate 95 H 95 H 91 H Pulse Rate [ Anterior Bilateral] Pulse Rate [ Apical] Pulse Rate [ From Monitor] Respiratory 13 11 L Rate Respiratory Rate [Anterior Bilateral] Blood Pressure 120/58 120/58 107/66 O2 Sat by Pulse 98 98 96 Oximetry 06/28/18 06/28/18 06/28/18 05:15 05:31 05:45 Temperature Pulse Rate 91 H 94 H 96 H Pulse Rate [ Anterior Bilateral] Pulse Rate [ Apical] Pulse Rate [ From Monitor] Respiratory 15 13 12 Rate Respiratory Rate [Anterior Bilateral] Blood Pressure 125/62 115/53 112/59 O2 Sat by Pulse 96 95 93 Oximetry 06/28/18 06/28/18 06/28/18 05:51 06:00 06:15 Temperature Pulse Rate 93 H 97 H Pulse Rate [ Anterior Bilateral] Pulse Rate [ Apical] Pulse Rate [ 92 H From Monitor] Respiratory 18 14 20 Rate Respiratory Rate [Anterior Bilateral] Blood Pressure 116/56 116/56 O2 Sat by Pulse 100 96 97 Oximetry 06/28/18 06/28/18 06/28/18 06:31 06:45 07:01 Temperature Pulse Rate 95 H 95 H 94 H Pulse Rate [ Anterior Bilateral] Pulse Rate [ Apical] Pulse Rate [ From Monitor] Respiratory 20 19 15 Rate Respiratory Rate [Anterior Bilateral] Blood Pressure 102/76 102/76 99/42 O2 Sat by Pulse 99 94 94 Oximetry 06/28/18 06/28/18 06/28/18 07:15 07:30 07:45 Temperature Pulse Rate 92 H 87 90 Pulse Rate [ Anterior Bilateral] Pulse Rate [ Apical] Pulse Rate [ From Monitor] Respiratory 13 20 21 Rate Respiratory Rate [Anterior Bilateral] Blood Pressure 106/56 97/58 115/70 O2 Sat by Pulse 95 97 97 Oximetry 06/28/18 06/28/18 06/28/18 08:00 08:15 08:18 Temperature 97.4 F L Pulse Rate 92 H 93 H 103 H Pulse Rate [ Anterior Bilateral] Pulse Rate [ 93 H Apical] Pulse Rate [ 93 H From Monitor] Respiratory 18 13 22 Rate Respiratory Rate [Anterior Bilateral] Blood Pressure 117/61 118/76 128/78 O2 Sat by Pulse 97 97 99 Oximetry 06/28/18 06/28/18 06/28/18 08:20 08:30 08:36 Temperature Pulse Rate 94 H Pulse Rate [ 96 H 95 H Anterior Bilateral] Pulse Rate [ Apical] Pulse Rate [ From Monitor] Respiratory 20 Rate Respiratory 17 16 Rate [Anterior Bilateral] Blood Pressure 128/78 O2 Sat by Pulse 100 Oximetry 06/28/18 06/28/18 06/28/18 08:45 09:00 09:15 Temperature Pulse Rate 94 H 93 H 94 H Pulse Rate [ Anterior Bilateral] Pulse Rate [ Apical] Pulse Rate [ From Monitor] Respiratory 22 16 18 Rate Respiratory Rate [Anterior Bilateral] Blood Pressure 128/78 132/64 132/64 O2 Sat by Pulse 100 100 100 Oximetry 06/28/18 06/28/18 06/28/18 09:30 09:45 10:00 Temperature Pulse Rate 92 H 91 H 92 H Pulse Rate [ Anterior Bilateral] Pulse Rate [ Apical] Pulse Rate [ From Monitor] Respiratory 14 20 17 Rate Respiratory Rate [Anterior Bilateral] Blood Pressure 117/63 121/59 108/52 O2 Sat by Pulse 100 99 100 Oximetry 06/28/18 06/28/18 06/28/18 10:07 10:15 10:30 Temperature Pulse Rate 91 H 96 H 91 H Pulse Rate [ Anterior Bilateral] Pulse Rate [ Apical] Pulse Rate [ From Monitor] Respiratory 16 13 Rate Respiratory Rate [Anterior Bilateral] Blood Pressure 132/64 106/46 106/57 O2 Sat by Pulse 100 100 Oximetry 06/28/18 06/28/18 06/28/18 10:45 11:00 11:15 Temperature Pulse Rate 93 H 90 90 Pulse Rate [ Anterior Bilateral] Pulse Rate [ Apical] Pulse Rate [ From Monitor] Respiratory 18 16 12 Rate Respiratory Rate [Anterior Bilateral] Blood Pressure 108/61 109/51 109/51 O2 Sat by Pulse 98 96 96 Oximetry 06/28/18 06/28/18 06/28/18 11:31 11:45 12:01 Temperature Pulse Rate 89 91 H 93 H Pulse Rate [ Anterior Bilateral] Pulse Rate [ Apical] Pulse Rate [ From Monitor] Respiratory 12 10 L 17 Rate Respiratory Rate [Anterior Bilateral] Blood Pressure 111/63 101/58 98/53 O2 Sat by Pulse 97 96 97 Oximetry 06/28/18 06/28/18 12:15 12:30 Temperature Pulse Rate 89 87 Pulse Rate [ Anterior Bilateral] Pulse Rate [ Apical] Pulse Rate [ From Monitor] Respiratory 12 15 Rate Respiratory Rate [Anterior Bilateral] Blood Pressure 111/54 116/60 O2 Sat by Pulse 97 97 Oximetry Constitutional: no acute distress, alert, other (elderly looking AAF normocephalic and atraumatic with normal resp effort at rest) Eyes: non-icteric, other (Pupils 4mm, sluggichly reacting to light) ENT: oropharynx dry, other (extubated) Neck: supple, no lymphadenopathy, no JVD, other (no thyromegaly) Effort: normal Ascultation: Bilateral: diminished breath sounds, rales Percussion: Bilateral: not dull Cardiovascular: irregular rhythm, other (S1,S2,) Gastrointestinal: normoactive bowel sounds, soft, non-tender, non-distended Integumentary: rash (exematoid rash to upper chest) Extremities: no cyanosis, no edema, pulses normal, no ischemia or petechiae Neurologic: normal mental status, non-focal exam (grossly), pupils equal and round, motor strength normal and Psychiatric: mood appropriate, affect normal CBC and BMP: 07/02/18 05:23 07/02/18 05:23 ABG, PT/INR, D-dimer: ABG POC ABG pH 7.552 (7.35-7.45) H 06/28/18 10:53 POC ABG pCO2 40.8 (35-45) 06/28/18 10:53 POC ABG pO2 83 (80-105) 06/28/18 10:53 POC ABG HCO3 35.9 (22-26 mml/L) 06/28/18 10:53 POC ABG Total CO2 37 (23-27mmol/L) 06/28/18 10:53 POC ABG O2 Sat 97 06/28/18 10:53 Abnormal lab findings: Abnormal Labs 06/16/18 06/16/18 06/16/18 21:05 21:43 21:43 WBC RBC Hgb Hct MCV MCH RDW Plt Count Lymph % (Auto) [place] % (Auto) Lymph # [place] # Seg Neutrophils % Seg Neuts % (Manual) Lymphocytes % (Manual) Seg Neutrophils # Seg Neutrophils # Man Lymphocytes # (Manual) Monocytes # (Manual) POC ABG pH POC ABG pCO2 POC ABG pO2 Sodium 129 L Potassium Chloride 95.3 L Carbon Dioxide 14 L BUN 23 H Creatinine Glucose 146 H POC Glucose < 40 L Lactic Acid Uric Acid Calcium Magnesium Total Bilirubin Direct Bilirubin AST ALT Alkaline Phosphatase Ammonia Total Protein Albumin Vitamin B1 Vitamin B12 25-OH Vitamin D Total Free T4 T3 (GILSON) Urine Creatinine Urine Total Protein Acetaminophen < 5.0 L 06/16/18 06/16/18 06/16/18 21:43 21:43 22:27 WBC RBC 5.70 H Hgb Hct 44.6 H MCV 78 L MCH 25 L RDW 18.7 H Plt Count Lymph % (Auto) [place] % (Auto) Lymph # [place] # Seg Neutrophils % 78.8 H Seg Neuts % (Manual) Lymphocytes % (Manual) Seg Neutrophils # Seg Neutrophils # Man Lymphocytes # (Manual) Monocytes # (Manual) POC ABG pH POC ABG pCO2 POC ABG pO2 Sodium Potassium Chloride Carbon Dioxide BUN Creatinine Glucose POC Glucose 121 H Lactic Acid Uric Acid Calcium Magnesium Total Bilirubin Direct Bilirubin AST ALT Alkaline Phosphatase Ammonia Total Protein Albumin Vitamin B1 Vitamin B12 25-OH Vitamin D Total Free T4 1.87 H T3 (GILSON) Urine Creatinine Urine Total Protein Acetaminophen 06/16/18 06/16/18 06/17/18 22:33 23:43 03:56 WBC RBC Hgb Hct MCV MCH RDW Plt Count Lymph % (Auto) [place] % (Auto) Lymph # [place] # Seg Neutrophils % Seg Neuts % (Manual) Lymphocytes % (Manual) Seg Neutrophils # Seg Neutrophils # Man Lymphocytes # (Manual) Monocytes # (Manual) POC ABG pH POC ABG pCO2 POC ABG pO2 Sodium Potassium Chloride Carbon Dioxide BUN Creatinine Glucose POC Glucose Lactic Acid 4.40 H* 4.30 H* 3.10 H* Uric Acid Calcium Magnesium Total Bilirubin Direct Bilirubin AST ALT Alkaline Phosphatase Ammonia Total Protein Albumin Vitamin B1 Vitamin B12 25-OH Vitamin D Total Free T4 T3 (GILSON) Urine Creatinine Urine Total Protein Acetaminophen 06/17/18 06/17/18 06/17/18 08:35 08:40 11:00 WBC RBC Hgb Hct MCV MCH RDW Plt Count Lymph % (Auto) [place] % (Auto) Lymph # [place] # Seg Neutrophils % Seg Neuts % (Manual) Lymphocytes % (Manual) Seg Neutrophils # Seg Neutrophils # Man Lymphocytes # (Manual) Monocytes # (Manual) POC ABG pH POC ABG pCO2 POC ABG pO2 Sodium Potassium Chloride Carbon Dioxide BUN Creatinine Glucose POC Glucose 56 L Lactic Acid 2.70 H* 3.40 H* Uric Acid Calcium Magnesium Total Bilirubin Direct Bilirubin AST ALT Alkaline Phosphatase Ammonia Total Protein Albumin Vitamin B1 Vitamin B12 25-OH Vitamin D Total Free T4 T3 (GILSON) Urine Creatinine Urine Total Protein Acetaminophen 06/17/18 06/17/18 06/17/18 11:00 11:00 11:00 WBC 11.9 H RBC 5.25 H Hgb Hct MCV MCH 25 L RDW 18.6 H Plt Count Lymph % (Auto) [place] % (Auto) Lymph # [place] # Seg Neutrophils % Seg Neuts % (Manual) Lymphocytes % (Manual) Seg Neutrophils # Seg Neutrophils # Man Lymphocytes # (Manual) Monocytes # (Manual) POC ABG pH POC ABG pCO2 POC ABG pO2 Sodium 128 L Potassium Chloride 95.6 L Carbon Dioxide 15 L BUN 22 H Creatinine Glucose 110 H POC Glucose Lactic Acid Uric Acid Calcium 8.3 L Magnesium Total Bilirubin Direct Bilirubin 1.6 H AST 66 H ALT Alkaline Phosphatase 178 H Ammonia Total Protein 4.7 L Albumin 2.4 L Vitamin B1 Vitamin B12 25-OH Vitamin D Total Free T4 T3 (GILSON) Urine Creatinine Urine Total Protein Acetaminophen 06/17/18 06/17/18 06/17/18 15:08 15:08 23:00 WBC RBC Hgb Hct MCV MCH RDW Plt Count Lymph % (Auto) [place] % (Auto) Lymph # [place] # Seg Neutrophils % Seg Neuts % (Manual) Lymphocytes % (Manual) Seg Neutrophils # Seg Neutrophils # Man Lymphocytes # (Manual) Monocytes # (Manual) POC ABG pH POC ABG pCO2 POC ABG pO2 Sodium Potassium Chloride Carbon Dioxide BUN Creatinine Glucose POC Glucose Lactic Acid 4.00 H* Uric Acid Calcium Magnesium Total Bilirubin Direct Bilirubin AST ALT Alkaline Phosphatase Ammonia 10.0 L Total Protein Albumin Vitamin B1 Vitamin B12 25-OH Vitamin D Total Free T4 1.53 H T3 (GILSON) Urine Creatinine Urine Total Protein Acetaminophen 06/18/18 06/18/18 06/18/18 08:59 08:59 12:49 WBC RBC 5.29 H Hgb Hct MCV 78 L MCH 25 L RDW 18.4 H Plt Count Lymph % (Auto) [place] % (Auto) Lymph # [place] # Seg Neutrophils % Seg Neuts % (Manual) Lymphocytes % (Manual) Seg Neutrophils # Seg Neutrophils # Man Lymphocytes # (Manual) Monocytes # (Manual) POC ABG pH POC ABG pCO2 POC ABG pO2 Sodium 128 L Potassium 5.9 H D Chloride 96.1 L Carbon Dioxide 20 L BUN 22 H Creatinine Glucose POC Glucose 60 L Lactic Acid Uric Acid Calcium Magnesium Total Bilirubin Direct Bilirubin AST ALT Alkaline Phosphatase Ammonia Total Protein Albumin Vitamin B1 Vitamin B12 25-OH Vitamin D Total Free T4 T3 (GILSON) Urine Creatinine Urine Total Protein Acetaminophen 06/18/18 06/19/18 06/19/18 21:28 12:14 13:23 WBC RBC Hgb Hct MCV MCH RDW Plt Count Lymph % (Auto) [place] % (Auto) Lymph # [place] # Seg Neutrophils % Seg Neuts % (Manual) Lymphocytes % (Manual) Seg Neutrophils # Seg Neutrophils # Man Lymphocytes # (Manual) Monocytes # (Manual) POC ABG pH POC ABG pCO2 POC ABG pO2 Sodium 122 L Potassium 5.4 H Chloride 95.0 L Carbon Dioxide 13 L D BUN 21 H Creatinine Glucose 119 H POC Glucose 114 H Lactic Acid Uric Acid Calcium 8.3 L Magnesium Total Bilirubin Direct Bilirubin AST ALT Alkaline Phosphatase Ammonia Total Protein Albumin Vitamin B1 Vitamin B12 25-OH Vitamin D Total Free T4 T3 (GILSON) Urine Creatinine Urine Total Protein Acetaminophen 06/19/18 06/19/18 06/19/18 14:47 16:38 22:42 WBC RBC 5.51 H Hgb Hct 45.3 H MCV MCH 25 L RDW 18.6 H Plt Count Lymph % (Auto) [place] % (Auto) Lymph # [place] # Seg Neutrophils % Seg Neuts % (Manual) Lymphocytes % (Manual) Seg Neutrophils # Seg Neutrophils # Man Lymphocytes # (Manual) Monocytes # (Manual) POC ABG pH POC ABG pCO2 POC ABG pO2 Sodium Potassium Chloride Carbon Dioxide BUN Creatinine Glucose POC Glucose 108 H 49 L Lactic Acid Uric Acid Calcium Magnesium Total Bilirubin Direct Bilirubin AST ALT Alkaline Phosphatase Ammonia Total Protein Albumin Vitamin B1 Vitamin B12 25-OH Vitamin D Total Free T4 T3 (GILSON) Urine Creatinine Urine Total Protein Acetaminophen 06/19/18 06/20/18 06/20/18 Unknown 07:31 16:51 WBC RBC Hgb Hct MCV MCH RDW Plt Count Lymph % (Auto) [place] % (Auto) Lymph # [place] # Seg Neutrophils % Seg Neuts % (Manual) Lymphocytes % (Manual) Seg Neutrophils # Seg Neutrophils # Man Lymphocytes # (Manual) Monocytes # (Manual) POC ABG pH POC ABG pCO2 POC ABG pO2 Sodium 132 L D Potassium Chloride 94.3 L Carbon Dioxide BUN 20 H Creatinine Glucose POC Glucose Lactic Acid Uric Acid 8.6 H Calcium Magnesium 1.30 L Total Bilirubin Direct Bilirubin AST ALT Alkaline Phosphatase Ammonia Total Protein Albumin Vitamin B1 Vitamin B12 25-OH Vitamin D Total Free T4 T3 (GILSON) 58 L Urine Creatinine 61.7 H Urine Total Protein 32 H Acetaminophen 06/20/18 06/20/18 06/21/18 20:53 20:53 16:27 WBC RBC Hgb Hct MCV MCH RDW Plt Count Lymph % (Auto) [place] % (Auto) Lymph # [place] # Seg Neutrophils % Seg Neuts % (Manual) Lymphocytes % (Manual) Seg Neutrophils # Seg Neutrophils # Man Lymphocytes # (Manual) Monocytes # (Manual) POC ABG pH POC ABG pCO2 POC ABG pO2 Sodium Potassium Chloride Carbon Dioxide BUN Creatinine Glucose POC Glucose Lactic Acid Uric Acid 9.2 H Calcium Magnesium Total Bilirubin Direct Bilirubin AST ALT Alkaline Phosphatase Ammonia Total Protein Albumin Vitamin B1 Vitamin B12 1598 H 25-OH Vitamin D Total 10 L Free T4 T3 (GILSON) Urine Creatinine Urine Total Protein Acetaminophen 06/21/18 06/21/18 06/21/18 16:27 16:27 16:27 WBC RBC 5.26 H Hgb Hct MCV 77 L MCH 26 L RDW 17.7 H Plt Count Lymph % (Auto) [place] % (Auto) Lymph # [place] # Seg Neutrophils % Seg Neuts % (Manual) Lymphocytes % (Manual) Seg Neutrophils # Seg Neutrophils # Man Lymphocytes # (Manual) Monocytes # (Manual) POC ABG pH POC ABG pCO2 POC ABG pO2 Sodium 130 L Potassium Chloride 95.6 L Carbon Dioxide BUN 24 H Creatinine Glucose POC Glucose Lactic Acid Uric Acid Calcium Magnesium Total Bilirubin Direct Bilirubin AST ALT Alkaline Phosphatase Ammonia Total Protein Albumin Vitamin B1 <6 L Vitamin B12 25-OH Vitamin D Total Free T4 T3 (GILSON) Urine Creatinine Urine Total Protein Acetaminophen 06/21/18 06/22/18 06/23/18 21:44 21:42 14:54 WBC RBC 5.07 H Hgb Hct MCV 78 L MCH 25 L RDW 18.5 H Plt Count Lymph % (Auto) [place] % (Auto) 12.3 H Lymph # 1.0 L [place] # Seg Neutrophils % Seg Neuts % (Manual) Lymphocytes % (Manual) Seg Neutrophils # Seg Neutrophils # Man Lymphocytes # (Manual) Monocytes # (Manual) POC ABG pH POC ABG pCO2 POC ABG pO2 Sodium Potassium Chloride Carbon Dioxide BUN Creatinine Glucose POC Glucose 126 H 114 H Lactic Acid Uric Acid Calcium Magnesium Total Bilirubin Direct Bilirubin AST ALT Alkaline Phosphatase Ammonia Total Protein Albumin Vitamin B1 Vitamin B12 25-OH Vitamin D Total Free T4 T3 (GILSON) Urine Creatinine Urine Total Protein Acetaminophen 06/23/18 06/25/18 06/25/18 14:54 00:00 00:00 WBC 3.6 L RBC 5.31 H Hgb Hct MCV 77 L MCH 26 L RDW 19.0 H Plt Count Lymph % (Auto) [place] % (Auto) 10.2 H Lymph # [place] # Seg Neutrophils % Seg Neuts % (Manual) Lymphocytes % (Manual) Seg Neutrophils # Seg Neutrophils # Man Lymphocytes # (Manual) Monocytes # (Manual) POC ABG pH POC ABG pCO2 POC ABG pO2 Sodium 132 L 131 L Potassium 3.5 L Chloride 91.5 L 93.5 L Carbon Dioxide BUN 19 H 21 H Creatinine Glucose POC Glucose Lactic Acid Uric Acid Calcium 8.1 L Magnesium Total Bilirubin 2.80 H 2.70 H Direct Bilirubin AST 52 H 81 H ALT Alkaline Phosphatase 231 H 243 H Ammonia Total Protein 5.5 L 5.5 L Albumin 2.8 L 2.7 L Vitamin B1 Vitamin B12 25-OH Vitamin D Total Free T4 T3 (GILSON) Urine Creatinine Urine Total Protein Acetaminophen 06/25/18 06/25/18 06/25/18 16:02 16:02 16:18 WBC 3.9 L RBC 5.78 H Hgb 14.6 H Hct 45.4 H MCV MCH 25 L RDW 19.2 H Plt Count Lymph % (Auto) [place] % (Auto) Lymph # [place] # Seg Neutrophils % Seg Neuts % (Manual) Lymphocytes % (Manual) Seg Neutrophils # Seg Neutrophils # Man Lymphocytes # (Manual) 1.1 L Monocytes # (Manual) POC ABG pH POC ABG pCO2 POC ABG pO2 Sodium 131 L Potassium Chloride 90.0 L Carbon Dioxide BUN 25 H Creatinine 1.4 H Glucose POC Glucose Lactic Acid 4.00 H* Uric Acid Calcium Magnesium Total Bilirubin 3.10 H Direct Bilirubin AST 68 H ALT Alkaline Phosphatase 296 H Ammonia Total Protein 6.1 L Albumin 3.3 L Vitamin B1 Vitamin B12 25-OH Vitamin D Total Free T4 T3 (GILSON) Urine Creatinine Urine Total Protein Acetaminophen 06/25/18 06/26/18 06/26/18 21:06 11:33 11:37 WBC RBC Hgb Hct MCV MCH 26 L RDW 19.2 H Plt Count 139 L Lymph % (Auto) [place] % (Auto) Lymph # [place] # Seg Neutrophils % Seg Neuts % (Manual) 85.0 H Lymphocytes % (Manual) 6.0 L Seg Neutrophils # Seg Neutrophils # Man 8.0 H Lymphocytes # (Manual) 0.6 L Monocytes # (Manual) POC ABG pH POC ABG pCO2 POC ABG pO2 Sodium Potassium Chloride Carbon Dioxide BUN Creatinine Glucose POC Glucose < 40 L Lactic Acid 6.40 H* Uric Acid Calcium Magnesium Total Bilirubin Direct Bilirubin AST ALT Alkaline Phosphatase Ammonia Total Protein Albumin Vitamin B1 Vitamin B12 25-OH Vitamin D Total Free T4 T3 (GILSON) Urine Creatinine Urine Total Protein Acetaminophen 06/26/18 06/26/18 06/26/18 11:37 11:51 11:59 WBC RBC Hgb Hct MCV MCH RDW Plt Count Lymph % (Auto) [place] % (Auto) Lymph # [place] # Seg Neutrophils % Seg Neuts % (Manual) Lymphocytes % (Manual) Seg Neutrophils # Seg Neutrophils # Man Lymphocytes # (Manual) Monocytes # (Manual) POC ABG pH 7.029 L POC ABG pCO2 POC ABG pO2 73 L Sodium 129 L Potassium Chloride 87.0 L Carbon Dioxide 11 L D BUN 31 H Creatinine 1.9 H Glucose 206 H POC Glucose 253 H Lactic Acid Uric Acid Calcium 7.9 L Magnesium Total Bilirubin 2.90 H Direct Bilirubin AST 98 H ALT Alkaline Phosphatase 196 H Ammonia Total Protein 4.3 L D Albumin 2.2 L Vitamin B1 Vitamin B12 25-OH Vitamin D Total Free T4 T3 (GILSON) Urine Creatinine Urine Total Protein Acetaminophen 06/26/18 06/26/18 06/26/18 14:54 15:08 15:10 WBC 14.2 H RBC 5.66 H Hgb 14.5 H Hct 45.6 H D MCV MCH 26 L RDW 19.4 H Plt Count Lymph % (Auto) [place] % (Auto) Lymph # [place] # Seg Neutrophils % Seg Neuts % (Manual) 88.0 H Lymphocytes % (Manual) 5.0 L Seg Neutrophils # Seg Neutrophils # Man 12.5 H Lymphocytes # (Manual) 0.7 L Monocytes # (Manual) 0.9 H POC ABG pH POC ABG pCO2 POC ABG pO2 Sodium Potassium Chloride Carbon Dioxide BUN Creatinine Glucose POC Glucose 172 H Lactic Acid 11.90 H* Uric Acid Calcium Magnesium Total Bilirubin Direct Bilirubin AST ALT Alkaline Phosphatase Ammonia Total Protein Albumin Vitamin B1 Vitamin B12 25-OH Vitamin D Total Free T4 T3 (GILSON) Urine Creatinine Urine Total Protein Acetaminophen 06/26/18 06/26/18 06/26/18 16:01 18:47 20:55 WBC RBC Hgb Hct MCV MCH RDW Plt Count Lymph % (Auto) [place] % (Auto) Lymph # [place] # Seg Neutrophils % Seg Neuts % (Manual) Lymphocytes % (Manual) Seg Neutrophils # Seg Neutrophils # Man Lymphocytes # (Manual) Monocytes # (Manual) POC ABG pH POC ABG pCO2 34.0 L POC ABG pO2 Sodium Potassium Chloride Carbon Dioxide BUN Creatinine Glucose POC Glucose 183 H 131 H Lactic Acid Uric Acid Calcium Magnesium Total Bilirubin Direct Bilirubin AST ALT Alkaline Phosphatase Ammonia Total Protein Albumin Vitamin B1 Vitamin B12 25-OH Vitamin D Total Free T4 T3 (GILSON) Urine Creatinine Urine Total Protein Acetaminophen 06/26/18 06/27/18 06/27/18 21:55 09:29 09:29 WBC RBC Hgb Hct MCV MCH RDW Plt Count Lymph % (Auto) [place] % (Auto) Lymph # [place] # Seg Neutrophils % Seg Neuts % (Manual) Lymphocytes % (Manual) Seg Neutrophils # Seg Neutrophils # Man Lymphocytes # (Manual) Monocytes # (Manual) POC ABG pH POC ABG pCO2 POC ABG pO2 Sodium 135 L 135 L Potassium 3.5 L Chloride 91.7 L 91.2 L Carbon Dioxide BUN 35 H 37 H Creatinine 2.3 H 2.1 H Glucose 147 H 104 H POC Glucose Lactic Acid Uric Acid Calcium 8.3 L 8.1 L Magnesium Total Bilirubin 3.50 H Direct Bilirubin AST 218 H ALT 57 H Alkaline Phosphatase 197 H Ammonia Total Protein 5.0 L Albumin 2.3 L Vitamin B1 Vitamin B12 25-OH Vitamin D Total Free T4 1.78 H T3 (GILSON) Urine Creatinine Urine Total Protein Acetaminophen 06/27/18 06/27/18 06/27/18 09:29 09:29 10:00 WBC 16.3 H RBC 5.44 H Hgb Hct MCV 76 L MCH 25 L RDW 18.3 H Plt Count Lymph % (Auto) [place] % (Auto) Lymph # [place] # Seg Neutrophils % Seg Neuts % (Manual) 91.0 H Lymphocytes % (Manual) 3.0 L Seg Neutrophils # Seg Neutrophils # Man 14.8 H Lymphocytes # (Manual) 0.5 L Monocytes # (Manual) 1.0 H POC ABG pH POC ABG pCO2 POC ABG pO2 Sodium Potassium Chloride Carbon Dioxide BUN Creatinine Glucose POC Glucose 106 H Lactic Acid 4.00 H* Uric Acid Calcium Magnesium Total Bilirubin Direct Bilirubin AST ALT Alkaline Phosphatase Ammonia Total Protein Albumin Vitamin B1 Vitamin B12 25-OH Vitamin D Total Free T4 T3 (GILSON) Urine Creatinine Urine Total Protein Acetaminophen 06/27/18 06/27/18 06/27/18 11:51 12:50 13:39 WBC RBC Hgb Hct MCV MCH RDW Plt Count Lymph % (Auto) [place] % (Auto) Lymph # [place] # Seg Neutrophils % Seg Neuts % (Manual) Lymphocytes % (Manual) Seg Neutrophils # Seg Neutrophils # Man Lymphocytes # (Manual) Monocytes # (Manual) POC ABG pH 7.584 H POC ABG pCO2 32.8 L POC ABG pO2 109 H Sodium Potassium Chloride Carbon Dioxide BUN Creatinine Glucose POC Glucose 112 H Lactic Acid 3.20 H* Uric Acid Calcium Magnesium Total Bilirubin Direct Bilirubin AST ALT Alkaline Phosphatase Ammonia Total Protein Albumin Vitamin B1 Vitamin B12 25-OH Vitamin D Total Free T4 T3 (GILSON) Urine Creatinine Urine Total Protein Acetaminophen 03/25/19 03/25/19 03/25/19 19:31 21:50 23:10 WBC RBC Hgb Hct MCV MCH RDW Plt Count Lymph % (Auto) [place] % (Auto) Lymph # [place] # Seg Neutrophils % Seg Neuts % (Manual) Lymphocytes % (Manual) Seg Neutrophils # Seg Neutrophils # Man Lymphocytes # (Manual) Monocytes # (Manual) POC ABG pH POC ABG pCO2 POC ABG pO2 Sodium Potassium Chloride Carbon Dioxide BUN Creatinine Glucose POC Glucose Lactic Acid 2.40 H* 2.30 H* 2.30 H* Uric Acid Calcium Magnesium Total Bilirubin Direct Bilirubin AST ALT Alkaline Phosphatase Ammonia Total Protein Albumin Vitamin B1 Vitamin B12 25-OH Vitamin D Total Free T4 T3 (GILSON) Urine Creatinine Urine Total Protein Acetaminophen 06/28/18 06/28/18 06/28/18 02:35 05:00 05:00 WBC RBC Hgb Hct MCV MCH RDW Plt Count Lymph % (Auto) [place] % (Auto) Lymph # [place] # Seg Neutrophils % Seg Neuts % (Manual) Lymphocytes % (Manual) Seg Neutrophils # Seg Neutrophils # Man Lymphocytes # (Manual) Monocytes # (Manual) POC ABG pH POC ABG pCO2 POC ABG pO2 Sodium 134 L Potassium 2.6 L* D Chloride 92.3 L Carbon Dioxide 32 H BUN 34 H Creatinine 1.8 H Glucose 127 H POC Glucose Lactic Acid 2.20 H* 2.30 H* Uric Acid Calcium 7.5 L Magnesium Total Bilirubin 3.50 H Direct Bilirubin AST 226 H ALT 60 H Alkaline Phosphatase 172 H Ammonia Total Protein 4.2 L Albumin 2.0 L Vitamin B1 Vitamin B12 25-OH Vitamin D Total Free T4 T3 (GILSON) Urine Creatinine Urine Total Protein Acetaminophen 06/28/18 06/28/18 06/28/18 08:30 08:30 10:53 WBC 15.7 H RBC Hgb Hct MCV 77 L MCH 25 L RDW 18.5 H Plt Count 112 L Lymph % (Auto) 6.0 L [place] % (Auto) 10.0 H Lymph # 0.9 L [place] # 1.6 H Seg Neutrophils % 83.4 H Seg Neuts % (Manual) Lymphocytes % (Manual) Seg Neutrophils # 13.1 H Seg Neutrophils # Man Lymphocytes # (Manual) Monocytes # (Manual) POC ABG pH 7.552 H POC ABG pCO2 POC ABG pO2 Sodium Potassium Chloride Carbon Dioxide BUN Creatinine Glucose POC Glucose Lactic Acid 2.40 H* Uric Acid Calcium Magnesium Total Bilirubin Direct Bilirubin AST ALT Alkaline Phosphatase Ammon[place] Total Protein Albumin Vitamin B1 Vitamin B12 25-OH Vitamin D Total Free T4 T3 (GILSON) Urine Creatinine Urine Total Protein Acetaminophen 06/28/18 11:23 WBC RBC Hgb Hct MCV MCH RDW Plt Count Lymph % (Auto) [place] % (Auto) Lymph # [place] # Seg Neutrophils % Seg Neuts % (Manual) Lymphocytes % (Manual) Seg Neutrophils # Seg Neutrophils # Man Lymphocytes # (Manual) Monocytes # (Manual) POC ABG pH POC ABG pCO2 POC ABG pO2 Sodium Potassium Chloride Carbon Dioxide BUN Creatinine Glucose POC Glucose 122 H Lactic Acid Uric Acid Calcium Magnesium Total Bilirubin Direct Bilirubin AST ALT Alkaline Phosphatase Am[place] Total Protein Albumin Vitamin B1 Vitamin B12 25-OH Vitamin D Total Free T4 T3 (GILSON) Urine Creatinine Urine Total Protein Acetaminophen Allied health notes reviewed: nursing
[2018-06-28] MEDS ORDERED: NACL 0.9% 1000 ML 1,000 ML IV SCH (14:00)
--- NOTE | 2018-06-28 14:20 | Progress Note ---
Assessment and Plan S/P Cardiac arrest thought secondary to Haldol treatment s/p cardioversion Respiratory failure -on mechanical ventilator Chronic systolic heart failure Atrial fibrillation/flutter currently in sinus rhythm Severe depression Altered mental status Recently discharged from [facility] to home hospice care Non-ischemic cardiomyopathy Lactic acidosis Hyponatremia - chronic Elevated bilirubin and alk phosphatase - chronic secondary to congestive hepatopathy Non-compliance with medical therapy and outpatient cardiac follow up. Echo 04/2018 at [facility] showed: a 4 chamber dilated cardiomyopathy, LVEF severely decreased, 20-25%. Moderate mitral regurgitation. Severe TR. RVSP is severely elevated. Recommend: Continued supportive cardiac management. Wean off ventilator as tolerated. Medical therapy for chronic systolic left ventricular dysfunction. Subjective Date of service: 06/28/18 Principal diagnosis: altered mental status, psychosis, chronic systolic heart failure, Interval history: Patient is alert but remains on the vent. No reported cardiac events overnight. Objective Vital Signs Temp Pulse Pulse Pulse Pulse Resp Resp 06/28/18 14:16 06/28/18 14:00 100 H 13 06/28/18 13:45 93 H 14 06/28/18 13:30 91 H 20 06/28/18 13:15 95 H 13 06/28/18 13:01 91 H 18 06/28/18 12:45 90 13 06/28/18 12:30 87 15 06/28/18 12:15 89 12 06/28/18 12:01 93 H 17 06/28/18 12:00 98.0 F 93 H 93 H 17 06/28/18 11:45 91 H 10 L 06/28/18 11:31 89 12 06/28/18 11:15 90 12 06/28/18 11:00 90 16 06/28/18 10:45 93 H 18 06/28/18 10:30 91 H 13 06/28/18 10:15 96 H 16 06/28/18 10:07 91 H 06/28/18 10:00 92 H 17 06/28/18 09:45 91 H 20 06/28/18 09:30 92 H 14 06/28/18 09:15 94 H 18 06/28/18 09:00 93 H 16 06/28/18 08:45 94 H 22 06/28/18 08:36 95 H 16 06/28/18 08:30 94 H 20 06/28/18 08:20 96 H 17 06/28/18 08:18 103 H 22 06/28/18 08:15 93 H 13 06/28/18 08:00 97.4 F L 92 H 93 H 93 H 18 06/28/18 07:45 90 21 06/28/18 07:30 87 20 06/28/18 07:15 92 H 13 06/28/18 07:01 94 H 15 06/28/18 06:45 95 H 19 06/28/18 06:31 95 H 20 06/28/18 06:15 97 H 20 06/28/18 06:00 93 H 14 06/28/18 05:51 92 H 18 06/28/18 05:45 96 H 12 06/28/18 05:31 94 H 13 06/28/18 05:15 91 H 15 06/28/18 05:00 91 H 11 L 06/28/18 04:45 95 H 13 06/28/18 04:37 95 H 06/28/18 04:30 96 H 15 06/28/18 04:15 93 H 12 06/28/18 04:00 92 H 13 06/28/18 03:45 92 H 13 06/28/18 03:35 98.5 F 06/28/18 03:30 91 H 14 06/28/18 03:17 92 H 18 06/28/18 03:15 93 H 10 L 06/28/18 03:00 91 H 11 L 06/28/18 02:45 92 H 19 06/28/18 02:30 91 H 11 L 06/28/18 02:15 93 H 16 06/28/18 02:00 93 H 12 06/28/18 01:45 94 H 15 06/28/18 01:37 95 H 92 H 18 06/28/18 01:30 89 12 06/28/18 01:15 94 H 13 06/28/18 01:00 97 H 17 06/28/18 00:45 95 H 13 06/28/18 00:31 96 H 13 06/28/18 00:15 96 H 12 06/28/18 00:01 94 H 13 06/28/18 00:00 96 H 95 H 18 06/27/18 23:51 94 H 06/27/18 23:45 96 H 10 L 03/25/19 23:31 96 H 13 06/27/18 23:15 94 H 12 06/27/18 23:03 96 H 13 06/27/18 23:01 94 H 14 06/27/18 23:00 99.2 F 06/27/18 22:45 96 H 16 06/27/18 22:41 94 H 15 06/27/18 22:31 96 H 16 06/27/18 22:15 96 H 14 06/27/18 22:01 103 H 9 L 06/27/18 22:00 96 H 90 18 06/27/18 21:45 100 H 12 06/27/18 21:31 97 H 19 06/27/18 21:15 100 H 9 L 06/27/18 21:06 97 H 21 06/27/18 21:00 98 H 13 06/27/18 20:51 95 H 21 06/27/18 20:45 114 H 12 06/27/18 20:36 95 H 17 06/27/18 20:31 100 H 15 06/27/18 20:15 100 H 15 06/27/18 20:00 98.4 F 102 H 13 06/27/18 19:45 103 H 15 06/27/18 19:35 103 H 90 18 06/27/18 19:34 96 H 06/27/18 19:30 97 H 10 L 06/27/18 19:15 100 H 7 L 06/27/18 19:01 97 H 11 L 06/27/18 18:45 96 H 9 L 06/27/18 18:30 93 H 12 06/27/18 18:15 100 H 14 06/27/18 18:01 98 H 11 L 06/27/18 17:45 90 14 06/27/18 17:31 86 11 L 06/27/18 17:15 88 13 06/27/18 17:00 93 H 16 06/27/18 16:45 93 H 12 06/27/18 16:31 93 H 19 06/27/18 16:15 88 16 06/27/18 16:00 99.1 F 89 90 18 06/27/18 15:45 88 14 06/27/18 15:30 87 16 06/27/18 15:15 89 8 L 06/27/18 15:01 90 18 06/27/18 14:45 87 92 H 11 L 18 06/27/18 14:30 90 18 06/27/18 14:29 89 17 06/27/18 14:23 88 17 BP Pulse Ox 06/28/18 14:16 97 06/28/18 14:00 127/61 96 06/28/18 13:45 114/71 97 06/28/18 13:30 121/61 98 06/28/18 13:15 105/60 98 06/28/18 13:01 118/64 97 06/28/18 12:45 113/55 96 06/28/18 12:30 116/60 97 06/28/18 12:15 111/54 97 06/28/18 12:01 98/53 97 06/28/18 12:00 97 06/28/18 11:45 101/58 96 06/28/18 11:31 111/63 97 06/28/18 11:15 109/51 96 06/28/18 11:00 109/51 96 06/28/18 10:45 108/61 98 06/28/18 10:30 106/57 100 06/28/18 10:15 106/46 100 06/28/18 10:07 132/64 06/28/18 10:00 108/52 100 06/28/18 09:45 121/59 99 06/28/18 09:30 117/63 100 06/28/18 09:15 132/64 100 06/28/18 09:00 132/64 100 06/28/18 08:45 128/78 100 06/28/18 08:36 06/28/18 08:30 128/78 100 06/28/18 08:20 06/28/18 08:18 128/78 99 06/28/18 08:15 118/76 97 06/28/18 08:00 117/61 97 06/28/18 07:45 115/70 97 06/28/18 07:30 97/58 97 06/28/18 07:15 106/56 95 06/28/18 07:01 99/42 94 06/28/18 06:45 102/76 94 06/28/18 06:31 102/76 99 06/28/18 06:15 116/56 97 06/28/18 06:00 116/56 96 06/28/18 05:51 100 06/28/18 05:45 112/59 93 06/28/18 05:31 115/53 95 06/28/18 05:15 125/62 96 06/28/18 05:00 107/66 96 06/28/18 04:45 120/58 98 06/28/18 04:37 120/58 98 06/28/18 04:30 120/58 95 06/28/18 04:15 113/63 97 06/28/18 04:00 104/73 99 06/28/18 03:45 102/69 99 06/28/18 03:35 06/28/18 03:30 102/69 99 06/28/18 03:17 100 06/28/18 03:15 93/56 98 06/28/18 03:00 93/56 98 06/28/18 02:45 99 06/28/18 02:30 98 06/28/18 02:15 112/60 98 06/28/18 02:00 104/57 99 06/28/18 01:45 117/77 99 06/28/18 01:37 100 06/28/18 01:30 103/58 97 06/28/18 01:15 107/64 98 06/28/18 01:00 97/58 98 06/28/18 00:45 107/42 99 06/28/18 00:31 204/173 98 06/28/18 00:15 119/42 95 06/28/18 00:01 119/42 98 06/28/18 00:00 100 06/27/18 23:51 154/36 99 06/27/18 23:45 154/136 99 06/27/18 23:31 154/136 100 06/27/18 23:15 130/106 94 06/27/18 23:03 136/71 92 06/27/18 23:01 99/70 93 06/27/18 23:00 06/27/18 22:45 99/70 100 06/27/18 22:41 90/72 100 06/27/18 22:31 90/72 100 06/27/18 22:15 93/50 87 06/27/18 22:01 94/72 83 L 06/27/18 22:00 100 06/27/18 21:45 85/55 98 06/27/18 21:31 93/50 96 06/27/18 21:15 108/58 99 06/27/18 21:06 06/27/18 21:00 108/58 99 06/27/18 20:51 06/27/18 20:45 106/82 90 06/27/18 20:36 104/79 97 06/27/18 20:31 104/79 98 06/27/18 20:15 103/71 96 06/27/18 20:00 102/64 06/27/18 19:45 103/75 88 06/27/18 19:35 100 06/27/18 19:34 103/61 06/27/18 19:30 103/40 100 06/27/18 19:15 105/45 98 06/27/18 19:01 87/49 100 06/27/18 18:45 105/81 100 06/27/18 18:30 105/81 99 06/27/18 18:15 97/80 75 L 06/27/18 18:01 167/123 100 06/27/18 17:45 138/117 93 06/27/18 17:31 138/117 100 06/27/18 17:15 105/90 100 06/27/18 17:00 100 06/27/18 16:45 100 06/27/18 16:31 105/90 100 06/27/18 16:15 90/63 69 L 06/27/18 16:00 97/72 100 06/27/18 15:45 90/63 99 06/27/18 15:30 98/67 99 06/27/18 15:15 87/44 98 06/27/18 15:01 95/59 100 06/27/18 14:45 80/57 100 06/27/18 14:30 87/57 99 06/27/18 14:29 06/27/18 14:23 86/57 99 - Physical Examination General: Other (on the vent) HEENT: Positive: PERRL Cardiac: Positive: Reg Rate and Rhythm Extremities: Absent: edema - Labs and Meds Cardiac Enzymes 06/28/18 Range/Units 05:00 AST 226 H (5-40) units/L CBC 06/28/18 Range/Units 08:30 WBC 15.7 H (4.5-11.0) K/mm3 RBC 4.88 (3.65-5.03) M/mm3 Hgb 12.1 (10.1-14.3) gm/dl Hct 37.4 (30.3-42.9) % Plt Count 112 L (140-440) K/mm3 Lymph # 0.9 L (1.2-5.4) K/mm3 [place] # 1.6 H (0.0-0.8) K/mm3 Eos # 0.1 (0.0-0.4) K/mm3 Baso # 0.0 (0.0-0.1) K/mm3 Comprehensive Metabolic Panel 06/28/18 Range/Units 05:00 Sodium 134 L (137-145) mmol/L Potassium 2.6 L* D (3.6-5.0) mmol/L Chloride 92.3 L (98-107) mmol/L Carbon Dioxide 32 H (22-30) mmol/L BUN 34 H (7-17) mg/dL Creatinine 1.8 H (0.7-1.2) mg/dL Glucose 127 H (65-100) mg/dL Calcium 7.5 L (8.4-10.2) mg/dL AST 226 H (5-40) units/L ALT 60 H (7-56) units/L Alkaline Phosphatase 172 H (35-129) units/L Total Protein 4.2 L (6.3-8.2) g/dL Albumin 2.0 L (3.9-5) g/dL - Allied health notes Allied health notes reviewed: nursing
[2018-06-28] MEDS: LANOXIN PO SCH (17:00)
[2018-06-29] MEDS: LOPRESSOR PO SCH (01:00)
[2018-06-29 06:50] LABS: Hematocrit 36.4 % (30.3-42.9); Hemoglobin 11.8 gm/dl (10.1-14.3); Mean Corpuscular HGB Conc 33 % (30-34); Mean Corpuscular Volume 77 fl (79-97); Platelet Count 88 K/mm3 (140-440); Red Blood Count 4.75 M/mm3 (3.65-5.03); Red Cell Distribution Width 19.3 % (13.2-15.2)
[2018-06-29 07:08] LABS: Albumin 2.2 g/dL (3.9-5); Calcium 7.9 mg/dL (8.4-10.2)
[2018-06-29] MEDS ORDERED: MAGNESIUM SULFATE IV ONE (07:19)
[2018-06-29] MEDS: DUONEB *Not for PRN Use IH SCH ×3 (07:42→20:35)
[2018-06-29] MEDS: REGLAN IV SCH ×2 (07:47→14:30)
[2018-06-29] MEDS: CEPHULAC PO SCH ×3 (07:47→18:21)
[2018-06-29] MEDS ORDERED: POTASSIUM CHLORIDE FEEDTUBE ONE (08:00)
[2018-06-29] MEDS ORDERED: MAGNESIUM SULFATE 3 GM in NACL 0.9% 100 ML IV ONE (08:00)
[2018-06-29] MEDS ORDERED: LEVAQUIN 750MG/150ML 750 MG/150 ML BAG IV SCH (10:00)
--- NOTE | 2018-06-29 10:29 | Progress Note ---
Assessment and Plan - Patient Problems (1) Acute kidney failure with tubular necrosis Current Visit: Yes Status: Acute Plan to address problem: acute tubular necrosis secondary to cardiac arrest. pt remains non-oliguric, renal function stabilizing with hemodynamic stabilization and on inotropic support with dobutamine. avoid nephrotoxins, IV contrast. (2) Hyponatremia with decreased serum osmolality Current Visit: Yes Status: Acute Plan to address problem: Likely in the setting of fluid overload. resume lasix once BP stable and K normalized. (3) Cardiac arrest Current Visit: Yes Status: Acute Plan to address problem: s/p code blue, ACLS with ROSC, now on dobutamine gtt. follow cardiology recommendations (4) Fluid overload Current Visit: Yes Status: Chronic Qualifiers: Hypervolemia type: other Qualified Code(s): E87.79 - Other fluid overload Plan to address problem: cont fluid restrictions and appropriate low-sodium diet given her history of end-stage heart disease and cardiomyopathy. resume diuresis once BP stable/K normalized. (5) Acute on chronic systolic heart failure Current Visit: No Status: Acute Plan to address problem: on inotropic support with dobutamine. Follow up with further recommendations per cardiology. (6) Altered mental status Current Visit: Yes Status: Acute Plan to address problem: (7) HTN (hypertension) Current Visit: No Status: Chronic Plan to address problem: Continue on current regimen and will monitor. Subjective Date of service: 06/29/18 Principal diagnosis: altered mental status, psychosis, chronic systolic heart failure, Interval history: pt s/p extubation, awake, in no acute respiratory distress. on dobutamin gtt with increased UOP, improved renal function. Objective - Vital Signs Vital signs: Vital Signs - 12hr 06/28/18 06/28/18 06/28/18 22:30 22:45 23:00 Temperature Pulse Rate 111 H 112 H 111 H Pulse Rate [ Anterior Bilateral] Pulse Rate [ From Monitor] Pulse Rate [ Throughout] Respiratory 27 H 18 13 Rate Respiratory Rate [Anterior Bilateral] Respiratory Rate [ Throughout] Blood Pressure 101/53 109/59 110/58 O2 Sat by Pulse 97 97 98 Oximetry 06/28/18 06/28/18 06/28/18 23:15 23:25 23:30 Temperature Pulse Rate 111 H 109 H 111 H Pulse Rate [ Anterior Bilateral] Pulse Rate [ From Monitor] Pulse Rate [ Throughout] Respiratory 13 14 13 Rate Respiratory Rate [Anterior Bilateral] Respiratory Rate [ Throughout] Blood Pressure 106/64 106/64 90/60 O2 Sat by Pulse 97 98 98 Oximetry 06/28/18 06/29/18 06/29/18 23:45 00:00 00:09 Temperature 99.0 F Pulse Rate 109 H 109 H 109 H Pulse Rate [ Anterior Bilateral] Pulse Rate [ 107 H From Monitor] Pulse Rate [ Throughout] Respiratory 14 12 12 Rate Respiratory Rate [Anterior Bilateral] Respiratory Rate [ Throughout] Blood Pressure 110/76 115/75 115/75 O2 Sat by Pulse 100 100 100 Oximetry 06/29/18 06/29/18 06/29/18 00:15 00:30 00:45 Temperature Pulse Rate 109 H 110 H 106 H Pulse Rate [ Anterior Bilateral] Pulse Rate [ From Monitor] Pulse Rate [ Throughout] Respiratory 14 16 16 Rate Respiratory Rate [Anterior Bilateral] Respiratory Rate [ Throughout] Blood Pressure 99/66 99/69 102/59 O2 Sat by Pulse 96 96 97 Oximetry 06/29/18 06/29/18 06/29/18 01:00 01:15 01:30 Temperature Pulse Rate 96 H 110 H 108 H Pulse Rate [ Anterior Bilateral] Pulse Rate [ From Monitor] Pulse Rate [ Throughout] Respiratory 19 14 13 Rate Respiratory Rate [Anterior Bilateral] Respiratory Rate [ Throughout] Blood Pressure 100/59 104/62 104/55 O2 Sat by Pulse 95 96 93 Oximetry 06/29/18 06/29/18 06/29/18 01:45 02:00 02:15 Temperature Pulse Rate 107 H 108 H 108 H Pulse Rate [ Anterior Bilateral] Pulse Rate [ From Monitor] Pulse Rate [ Throughout] Respiratory 20 13 16 Rate Respiratory Rate [Anterior Bilateral] Respiratory Rate [ Throughout] Blood Pressure 111/53 103/54 110/63 O2 Sat by Pulse 95 91 95 Oximetry 06/29/18 06/29/18 06/29/18 02:30 02:45 03:00 Temperature Pulse Rate 109 H 112 H 108 H Pulse Rate [ Anterior Bilateral] Pulse Rate [ From Monitor] Pulse Rate [ Throughout] Respiratory 10 L 15 17 Rate Respiratory Rate [Anterior Bilateral] Respiratory Rate [ Throughout] Blood Pressure 124/77 118/71 112/52 O2 Sat by Pulse 96 96 96 Oximetry 06/29/18 06/29/18 06/29/18 03:15 03:30 03:45 Temperature Pulse Rate 106 H 108 H 108 H Pulse Rate [ Anterior Bilateral] Pulse Rate [ From Monitor] Pulse Rate [ Throughout] Respiratory 23 14 21 Rate Respiratory Rate [Anterior Bilateral] Respiratory Rate [ Throughout] Blood Pressure 102/61 113/64 109/57 O2 Sat by Pulse 94 99 96 Oximetry 06/29/18 06/29/18 06/29/18 04:00 04:15 04:30 Temperature 98.8 F Pulse Rate 107 H 108 H 107 H Pulse Rate [ Anterior Bilateral] Pulse Rate [ From Monitor] Pulse Rate [ Throughout] Respiratory 13 16 24 Rate Respiratory Rate [Anterior Bilateral] Respiratory Rate [ Throughout] Blood Pressure 101/61 112/57 111/61 O2 Sat by Pulse 97 97 97 Oximetry 06/29/18 06/29/18 06/29/18 04:36 04:45 05:00 Temperature Pulse Rate 109 H 109 H Pulse Rate [ Anterior Bilateral] Pulse Rate [ 108 H From Monitor] Pulse Rate [ Throughout] Respiratory 20 13 17 Rate Respiratory Rate [Anterior Bilateral] Respiratory Rate [ Throughout] Blood Pressure 105/52 111/50 O2 Sat by Pulse 100 98 97 Oximetry 06/29/18 06/29/18 06/29/18 05:15 05:30 05:45 Temperature Pulse Rate 111 H 110 H 107 H Pulse Rate [ Anterior Bilateral] Pulse Rate [ From Monitor] Pulse Rate [ Throughout] Respiratory 14 15 14 Rate Respiratory Rate [Anterior Bilateral] Respiratory Rate [ Throughout] Blood Pressure 118/58 122/68 114/71 O2 Sat by Pulse 97 96 96 Oximetry 06/29/18 06/29/18 06/29/18 06:00 06:15 06:30 Temperature Pulse Rate 108 H 108 H 107 H Pulse Rate [ Anterior Bilateral] Pulse Rate [ From Monitor] Pulse Rate [ Throughout] Respiratory 17 16 16 Rate Respiratory Rate [Anterior Bilateral] Respiratory Rate [ Throughout] Blood Pressure 117/66 102/75 115/73 O2 Sat by Pulse 97 95 94 Oximetry 06/29/18 06/29/18 06/29/18 06:45 07:01 07:08 Temperature Pulse Rate 105 H 108 H Pulse Rate [ Anterior Bilateral] Pulse Rate [ From Monitor] Pulse Rate [ Throughout] Respiratory 18 21 Rate Respiratory Rate [Anterior Bilateral] Respiratory Rate [ Throughout] Blood Pressure 112/64 119/69 O2 Sat by Pulse 98 95 96 Oximetry 06/29/18 06/29/18 06/29/18 07:15 07:30 07:45 Temperature Pulse Rate 105 H 107 H 107 H Pulse Rate [ Anterior Bilateral] Pulse Rate [ From Monitor] Pulse Rate [ Throughout] Respiratory 15 14 20 Rate Respiratory Rate [Anterior Bilateral] Respiratory Rate [ Throughout] Blood Pressure 123/72 125/65 121/70 O2 Sat by Pulse 97 96 96 Oximetry 06/29/18 06/29/18 07:47 08:00 Temperature 98.2 F Pulse Rate Pulse Rate [ 107 H Anterior Bilateral] Pulse Rate [ From Monitor] Pulse Rate [ 106 H Throughout] Respiratory Rate Respiratory 16 Rate [Anterior Bilateral] Respiratory 16 Rate [ Throughout] Blood Pressure O2 Sat by Pulse Oximetry - General Appearance General appearance: well-developed, appears stated age, chronically ill EENT: ATNC, PERRL, mucous membranes moist Neck: no JVD Respiratory: Present: Decreased Breath Sounds Cardiology: regular, S1S2 Gastrointestinal: normoactive bowel sounds Integumentary: no rash, other (+ edema b/l LE ) Neurologic: no focal deficit, alert and oriented x3, strength 5/5, CN 3-12 intact Psychiatric: mood/affect appropriate, cooperative - Lab 06/29/18 06:40 06/29/18 06:40 Most recent lab results Calcium 7.9 mg/dL (8.4-10.2) L 06/29/18 06:40 Phosphorus 2.50 mg/dL (2.5-4.5) 06/20/18 07:31 Magnesium 1.70 mg/dL (1.7-2.3) 06/29/18 06:40 Urine Creatinine 61.7 mg/dL (0.1-20.0) H 06/19/18 Unknown Urine Total Protein 32 mg/dL (5-11.8) H 06/19/18 Unknown Medications & Allergies - Medications Allergies/Adverse Reactions: Allergies Penicillins Allergy (Verified 09/04/17 14:11) Unknown aspirin Adverse Reaction (Verified 09/04/17 14:10) Nausea NSAIDS (Non-Steroidal Anti-Inflamma Adverse Reaction (Verified 09/04/17 14:10) Nausea Pork/Porcine Containing Products Adverse Reaction (Verified 11/01/17 09:04) Nausea Home Medications: Home Medications Medication Instructions Recorded Confirmed Last Taken Type Apixaban [Eliquis] 5 mg PO DAILY 09/06/17 10/31/17 Unknown History AtorvaSTATin [Lipitor] 20 mg PO DAILY 09/06/17 10/31/17 Unknown History Loperamide HCl [Loperamide] 2 mg PO DAILY 09/06/17 10/31/17 Unknown History Sertraline [Zoloft] 50 mg PO DAILY 09/06/17 10/31/17 10/17/17 10:00 History Sucralfate [Carafate] 1 gm PO DAILY 09/06/17 10/31/17 Unknown History Carvedilol [Coreg] 12.5 mg PO BID #60 tablet 09/08/17 10/31/17 Unknown Rx Lisinopril [Zestril TAB] 5 mg PO QDAY #30 tablet 09/08/17 10/31/17 Unknown Rx Doxycycline [Vibramycin CAP] 100 mg PO Q12HR #10 capsule 11/02/17 Unknown Rx Furosemide [Lasix] 20 mg PO QDAY #30 tablet 11/02/17 Unknown Rx Active Medications: Generic Name Dose Route Start Last Admin Trade Name Freq PRN Reason Stop Dose Admin Acetaminophen 650 mg 06/17/18 03:33 06/26/18 09:09 Tylenol PO 650 mg Q4H PRN Administration Fever >101 Albuterol/Ipratropium 1 ampul 06/27/18 14:00 06/29/18 07:42 Duoneb *Not For Prn Use* IH 1 ampul TIDRT JEANETTE Administration Apixaban 5 mg 06/20/18 16:00 06/28/18 23:12 Eliquis PO 5 mg Q12HR JEANETTE Administration Protocol Atorvastatin Calcium 20 mg 06/19/18 22:00 06/28/18 23:12 Lipitor PO 20 mg QHS JEANETTE Administration Digoxin 0.125 mg 06/24/18 17:00 06/28/18 17:00 Lanoxin PO 0.125 mg DAILY@1700 JEANETTE Administration Famotidine 20 mg 06/27/18 12:00 06/28/18 09:58 Pepcid PO 20 mg DAILY JEANETTE Administration Dobutamine HCl/Dextrose 500 mg in 250 mls @ 5.918 mls/hr 06/27/18 13:00 06/28/18 07:40 Dobutrex Drip 500mg/D5w 250ml IV 5 mcg/kg/min DIRECT JEANETTE 11.835 mls/hr Administration 2.5 MCG/KG/MIN Levofloxacin/Dextrose 750 mg in 150 mls @ 100 mls/hr 06/29/18 10:00 Levaquin 750mg/150ml IV Q48HR JEANETTE Protocol Potassium Chloride 10 meq in 100 mls @ 100 mls/hr 06/29/18 08:00 Kcl 10meq/100ml IV 06/29/18 11:59 Q1H JEANETTE Magnesium Sulfate 3 gm/ Sodium 106 mls @ 35.333 mls/hr 06/29/18 08:00 06/29/18 08:25 Chloride IV 06/29/18 10:59 35.333 mls/hr ONCE ONE Administration Lactulose 20 gm 06/25/18 12:00 06/29/18 07:47 Cephulac PO Not Given Q6HR [facility] Metoclopramide HCl 5 mg 06/27/18 14:00 06/29/18 07:47 Reglan IV 06/30/18 06:01 Not Given Q8HR [facility] Metoprolol Tartrate 25 mg 06/25/18 09:00 06/29/18 01:00 Lopressor PO Not Given Q8H [facility] Ondansetron HCl 4 mg 06/17/18 03:24 Zofran IV Q8H PRN Nausea And Vomiting Sertraline HCl 50 mg 06/24/18 10:00 06/28/18 09:58 Zoloft PO 50 mg DAILY JEANETTE Administration
[2018-06-29] MEDS: KCL 10MEQ/100ML 10 MEQ/100 ML BAG IV SCH ×5 (11:02→18:20)
[2018-06-29] MEDS: PEPCID PO SCH (11:04)
[2018-06-29] MEDS: ELIQUIS PO SCH (11:04)
[2018-06-29] MEDS: ZOLOFT PO SCH (11:04)
--- NOTE | 2018-06-29 12:47 | Progress Note ---
Assessment and Plan S/P Cardiac arrest thought secondary to Haldol treatment s/p cardioversion Respiratory failure -extubated Chronic systolic heart failure Atrial fibrillation/flutter currently in sinus rhythm Severe depression Altered mental status Recently discharged from [facility] to home hospice care Non-ischemic cardiomyopathy Lactic acidosis Hyponatremia - chronic Elevated bilirubin and alk phosphatase - chronic secondary to congestive hepatopathy Non-compliance with medical therapy and outpatient cardiac follow up. Echo 04/2018 at [facility] showed: a 4 chamber dilated cardiomyopathy, LVEF severely decreased, 20-25%. Moderate mitral regurgitation. Severe TR. RVSP is severely elevated. Recommend: Medical therapy for chronic systolic left ventricular dysfunction. Conservative cardiac management. Subjective Date of service: 06/29/18 Principal diagnosis: altered mental status, psychosis, chronic systolic heart failure, Interval history: Extubated overnight. Patient appears calm and has no complaints. Objective Vital Signs Temp Pulse Pulse Pulse Pulse Pulse Resp 06/29/18 10:31 108 H 16 06/29/18 10:15 110 H 23 06/29/18 10:00 109 H 21 06/29/18 09:46 110 H 21 06/29/18 09:30 110 H 14 06/29/18 09:24 06/29/18 09:00 111 H 16 06/29/18 08:45 111 H 15 06/29/18 08:30 110 H 17 06/29/18 08:15 108 H 15 06/29/18 08:00 98.2 F 109 H 93 H 93 H 23 06/29/18 07:47 107 H 106 H 06/29/18 07:45 107 H 20 06/29/18 07:30 107 H 14 06/29/18 07:15 105 H 15 06/29/18 07:08 06/29/18 07:01 108 H 21 06/29/18 06:45 105 H 18 06/29/18 06:30 107 H 16 06/29/18 06:15 108 H 16 06/29/18 06:00 108 H 17 06/29/18 05:45 107 H 14 06/29/18 05:30 110 H 15 06/29/18 05:15 111 H 14 06/29/18 05:00 109 H 17 06/29/18 04:45 109 H 13 06/29/18 04:36 108 H 20 06/29/18 04:30 107 H 24 06/29/18 04:15 108 H 16 06/29/18 04:00 98.8 F 107 H 13 06/29/18 03:45 108 H 21 06/29/18 03:30 108 H 14 06/29/18 03:15 106 H 23 06/29/18 03:00 108 H 17 06/29/18 02:45 112 H 15 06/29/18 02:30 109 H 10 L 06/29/18 02:15 108 H 16 06/29/18 02:00 108 H 13 06/29/18 01:45 107 H 20 06/29/18 01:30 108 H 13 06/29/18 01:15 110 H 14 06/29/18 01:00 96 H 19 06/29/18 00:45 106 H 16 06/29/18 00:30 110 H 16 06/29/18 00:15 109 H 14 06/29/18 00:09 109 H 12 06/29/18 00:00 99.0 F 109 H 107 H 12 06/28/18 23:45 109 H 14 06/28/18 23:30 111 H 13 06/28/18 23:25 109 H 14 06/28/18 23:15 111 H 13 06/28/18 23:00 111 H 13 06/28/18 22:45 112 H 18 06/28/18 22:30 111 H 27 H 06/28/18 22:15 114 H 13 06/28/18 22:00 111 H 19 06/28/18 21:45 112 H 20 06/28/18 21:30 110 H 16 06/28/18 21:15 109 H 14 06/28/18 21:00 111 H 107 H 12 06/28/18 20:58 110 H 06/28/18 20:45 108 H 15 06/28/18 20:43 107 H 06/28/18 20:30 108 H 15 06/28/18 20:15 108 H 18 06/28/18 20:00 98.9 F 104 H 16 06/28/18 19:45 106 H 16 06/28/18 19:31 106 H 15 06/28/18 19:15 102 H 14 06/28/18 19:00 110 H 12 06/28/18 18:45 109 H 11 L 06/28/18 18:30 108 H 15 06/28/18 18:15 106 H 12 06/28/18 18:01 113 H 12 06/28/18 17:45 110 H 12 06/28/18 17:31 117 H 13 06/28/18 17:15 106 H 20 06/28/18 17:01 105 H 13 06/28/18 17:00 105 H 06/28/18 16:45 110 H 17 06/28/18 16:30 103 H 13 06/28/18 16:15 100 H 12 06/28/18 16:01 101 H 15 06/28/18 16:00 98.7 F 98 H 98 H 19 06/28/18 15:45 98 H 96 H 15 06/28/18 15:30 98 H 98 H 11 L 06/28/18 15:15 100 H 15 06/28/18 15:00 98 H 13 06/28/18 14:45 96 H 14 06/28/18 14:30 96 H 20 06/28/18 14:16 06/28/18 14:15 97 H 19 06/28/18 14:00 100 H 13 06/28/18 13:45 93 H 14 06/28/18 13:30 91 H 20 06/28/18 13:15 95 H 13 06/28/18 13:01 91 H 18 Resp Resp BP Pulse Ox 06/29/18 10:31 107/57 90 06/29/18 10:15 107/57 88 06/29/18 10:00 111/64 86 06/29/18 09:46 107/57 06/29/18 09:30 107/57 06/29/18 09:24 94 06/29/18 09:00 112/62 96 06/29/18 08:45 109/65 96 06/29/18 08:30 104/58 97 06/29/18 08:15 103/58 97 06/29/18 08:00 122/63 92 06/29/18 07:47 16 16 06/29/18 07:45 121/70 96 06/29/18 07:30 125/65 96 06/29/18 07:15 123/72 97 06/29/18 07:08 96 06/29/18 07:01 119/69 95 06/29/18 06:45 112/64 98 06/29/18 06:30 115/73 94 06/29/18 06:15 102/75 95 06/29/18 06:00 117/66 97 06/29/18 05:45 114/71 96 06/29/18 05:30 122/68 96 06/29/18 05:15 118/58 97 06/29/18 05:00 111/50 97 06/29/18 04:45 105/52 98 06/29/18 04:36 100 06/29/18 04:30 111/61 97 06/29/18 04:15 112/57 97 06/29/18 04:00 101/61 97 06/29/18 03:45 109/57 96 06/29/18 03:30 113/64 99 06/29/18 03:15 102/61 94 06/29/18 03:00 112/52 96 06/29/18 02:45 118/71 96 06/29/18 02:30 124/77 96 06/29/18 02:15 110/63 95 06/29/18 02:00 103/54 91 06/29/18 01:45 111/53 95 06/29/18 01:30 104/55 93 06/29/18 01:15 104/62 96 06/29/18 01:00 100/59 95 06/29/18 00:45 102/59 97 06/29/18 00:30 99/69 96 06/29/18 00:15 99/66 96 06/29/18 00:09 115/75 100 06/29/18 00:00 115/75 100 06/28/18 23:45 110/76 100 06/28/18 23:30 90/60 98 06/28/18 23:25 106/64 98 06/28/18 23:15 106/64 97 06/28/18 23:00 110/58 98 06/28/18 22:45 109/59 97 06/28/18 22:30 101/53 97 06/28/18 22:15 107/57 97 06/28/18 22:00 105/69 97 06/28/18 21:45 109/69 96 06/28/18 21:30 110/68 98 06/28/18 21:15 102/68 96 06/28/18 21:00 113/60 89 06/28/18 20:58 12 03/26/19 20:45 110/66 96 06/28/18 20:43 12 96 06/28/18 20:30 119/69 98 06/28/18 20:15 115/60 97 06/28/18 20:00 117/72 99 06/28/18 19:45 109/76 97 06/28/18 19:31 109/76 95 06/28/18 19:15 116/63 97 06/28/18 19:00 115/68 99 06/28/18 18:45 110/67 100 06/28/18 18:30 108/69 100 06/28/18 18:15 113/68 95 06/28/18 18:01 119/101 97 06/28/18 17:45 119/101 94 06/28/18 17:31 119/101 94 06/28/18 17:15 119/101 94 06/28/18 17:01 105/54 97 06/28/18 17:00 105/54 06/28/18 16:45 110/49 85 06/28/18 16:30 110/49 96 06/28/18 16:15 104/68 96 06/28/18 16:01 100/63 89 06/28/18 16:00 95 06/28/18 15:45 18 122/59 91 06/28/18 15:30 18 123/76 99 06/28/18 15:15 125/77 97 06/28/18 15:00 111/76 97 06/28/18 14:45 119/63 98 06/28/18 14:30 124/67 99 06/28/18 14:16 97 06/28/18 14:15 121/67 98 06/28/18 14:00 127/61 96 06/28/18 13:45 114/71 97 06/28/18 13:30 121/61 98 06/28/18 13:15 105/60 98 06/28/18 13:01 118/64 97 - Physical Examination General: No Apparent Distress HEENT: Positive: PERRL Neck: Positive: trachea midline Cardiac: Positive: Reg Rate and Rhythm Lungs: Positive: Decreased Breath Sounds Neuro: Positive: Grossly Intact Abdomen: Positive: Unremarkable Extremities: Absent: edema - Labs and Meds Cardiac Enzymes 06/29/18 Range/Units 06:40 AST 213 H (5-40) units/L CBC 06/29/18 Range/Units 06:40 WBC 14.6 H (4.5-11.0) K/mm3 RBC 4.75 (3.65-5.03) M/mm3 Hgb 11.8 (10.1-14.3) gm/dl Hct 36.4 (30.3-42.9) % Plt Count 88 L (140-440) K/mm3 Comprehensive Metabolic Panel 06/28/18 06/29/18 Range/Units 18:35 06:40 Sodium 137 (137-145) mmol/L Potassium 3.1 L 2.7 L* (3.6-5.0) mmol/L Chloride 95.3 L (98-107) mmol/L Carbon Dioxide 32 H (22-30) mmol/L BUN 25 H (7-17) mg/dL Creatinine 1.1 (0.7-1.2) mg/dL Glucose 145 H (65-100) mg/dL Calcium 7.9 L (8.4-10.2) mg/dL AST 213 H (5-40) units/L ALT 47 (7-56) units/L Alkaline Phosphatase 176 H (35-129) units/L Total Protein 4.8 L (6.3-8.2) g/dL Albumin 2.2 L (3.9-5) g/dL - Allied health notes Allied health notes reviewed: nursing
[2018-06-29] MEDS: DOBUTREX DRIP 500MG/D5W 250ML 500 MG/250 ML BAG IV SCH (15:30)
[2018-06-29] MEDS: LANOXIN PO SCH (18:22)
--- NOTE | 2018-06-29 18:38 | Progress Note ---
Assessment and Plan Assessment and plan: Patient is 68 yo woman with a history of hypertension, CHF and Atrial fibrillation who presented with altered mental status. She was climbing a fence, running wild; therefore, brought to ED. No previous psych history. CT neg. She was sedated in ED, and admitted. MRI Brain unremarkable. Patient evaluated by Neuro. Review of records show that patient was formally in Hospice and at some point had moved out of state then returned, Cardiology reports that due to her psych problems she is not a candidate for aggressive medical management, Unfortunately we cannot reach family to determine patients compliance. It does appear the patient has been non complaint with medication and on this admission shows generalized anasacar and with concern for Passive congestive hepatic failure. She has also demonstrate intermittent low grade fever on admission with concern for pneumonia. * Patient was treated with initially for SIRS secondary to Pneumonia and also Atrial Fibrillation and following cardiology evaluation, and recommended conservative management due to the patients psychiatric issues. * She was also initially 1013 and it was rescinded * During the stay, and review of all records, we attempted to contact family but to no avail to discuss hospice. * She was noted to be hypotensive and due to the balance in fluids considering her Cardiac status, she received a few small bolus, but remained with i ntermittent Encephalopathy. * She received Haldol in bid to obtain CT head but had PEA arrest a few hours later * Code Blue called as patient was noted to have bradycardia and became unresponsive and pulseless. 2 rounds epi, CPR, then pulse check showed Ventricular fibrillation and 1 shock via defibrillator was delivered with returning of pulse. Patient was intubated and IO for Medication delivery access. IMPRESSION: * Focal infiltrate in the left midlung. Differential diagnosis includes postinflammatory scarring and/or subsegmental atelectasis. LV normal size. Normal LV wall thickness. Severe global LV hypokinesis. Systolic and diastolic septal flattening c/w RV volume and pressure overload. LVEF is 21%. EF 20 - 25%. LVEF severely decreased. Grade III (severe) diastolic dysfunction c/w restrictive physiology. RV moderately dilated. RV wall motion normal. RV systolic function is normal. Abnormal RV diastolic function. LA severely dilated. RA severely dilated. Tricuspid AV. AV mildly thickened. AV opens well. Trace AR. No AV stenosis. MV mildly thickened. Moderate mitral regurgitation. Tricuspid leaflets do not completely coapt. Severe TR. Estimated RAP 15 mmHg. RAP elevated. RVSP is severely elevated. RVSP is underestimated, believed to be severe /Acute Respiratory failure following Cardiac Arrest -Extubated to ventuir mask /Hypoglycemia -Blood glucose was 20 during the code -D50 given with good result - stable /Altered mental status, with acute encephalopathy: psych and Neurology are following ?cerebral hypoperfuison contributing vs sepsis normal, /AMY-SECONDARY TO VASOMOTOR NEPHROPATHY Hold lasix IMPROVING Repeat in AM /Shock Liver -Contineu to monitor /SIRS ?underlying PNA doubt based on xray review and lack of fever or leukocytoisis Recheck chest xray Monitor Electrolytes Continue empiric levaquin, she got a few doses on admission check blood culture- NO GROWTH /shock syndrome -Give 250cc of fluids bolus AND Additional today -Prior Echo reported noted as documented by cardiology On dobutamin drip AND LEVOPHED /Persistently elevated Lactic acidosis -Likely secondary to hypoperfusion /Psychosis: Psych following, rescinded 1013 /Permanent Atrial fib/flutter: Eliquis resumed /Acute on chronic systolic CHF of EF 20-25%, /Stage D non ischemic cardiomyopathy per cardiology- possible end-stage cardiomyopathy patient has been on hospice before, Hold lasix and BB, and ACEI, she is not allergic to it. Unable to get any history Per cardiology not a candidate for aggressive work up and should consider palliative care per cardiology she was in [facility] on apr 27 2018 and discharged with home hospice /Hyponatremia, due to CHF, na 131 today improved from 122: Nephrology following /Elevated LFT,with elevated T. Bili Likely congestive hepatopathy, Will obtain RUQ US as this will be more tolerated than CT abdomen and pelvis in an agitated pt We will trend. Obtain GI consult if still trending up, although currently stable /Severe protein calorie malnutrition: Program Manager Rn consulted /Hypokalemia: replace DVT prophylaxis: Patient is on Eliquis POOR PROGNOSIS. Will discuss hospice family not agreeable to hospice yet. Discussed with cardiology and Renal. The high probability of a clinically significant, sudden or life threatening deterioration of the [cardiac, pulmonary, hepatic] system(s) required my full and direct attention, intervention and personal management. The aggregate critical care time was [35] minutes. This time is in addition to time spent performing reported procedures but includes the following: [x] Data Review and interpretation [x] Patient assessment and monitoring of vital signs [x] Documentation [x] Medication orders and management Possible LTAC referral History Interval history: Patient seen and examined this morning, extubated yesterday, now on ventimask, still with some altered sensorium. no other adverse event reported Hospitalist Physical - Physical exam Narrative exam: Constitutional: chronically ill appearing, lethargic Head: Normocephalic atraumatic Eyes: Pupils are equal round and reactive to light, Jaundice Nose: No enlarged turbinates, no septal deviation. Mouth: Moist mucous membranes. Neck: Supple no thyromegaly. No bruit. No JVD Heart: Regular rate and rhythm, S1-S2 displaced towards the apex. No rubs murmurs or gallop Lungs: Clear to auscultation bilaterally. no rales or rhonchi Abdomen: Soft, nontender. Bowel sound are present. Extremities: 1+ pitting pedal edema, no cyanosis, no clubbing. generalized anasacar Neuro: awake, moves all ext Skin: No rashes or hyperpigmented spots Musculoskeletal system: No joint pain or swelling Hematological: No petechia or subcutanous hemorrhages. Immunological: No multiple septic spots on the skin Lymphatic: No generalized lymphadenopathy Psychiatry:normal - Constitutional Vitals: Temp Pulse Resp BP Pulse Ox 97.4 F L 102 H 24 125/89 94 06/29/18 16:00 06/29/18 18:22 06/29/18 16:26 06/29/18 18:22 06/29/18 16:15 General appearance: Present: no acute distress Results - Labs CBC & Chem 7: 06/29/18 06:40 06/29/18 06:40 Labs: Laboratory Last Values WBC 14.6 K/mm3 (4.5-11.0) H 06/29/18 06:40 RBC 4.75 M/mm3 (3.65-5.03) 06/29/18 06:40 Hgb 11.8 gm/dl (10.1-14.3) 06/29/18 06:40 Hct 36.4 % (30.3-42.9) 06/29/18 06:40 MCV 77 fl (79-97) L 06/29/18 06:40 MCH 25 pg (28-32) L 06/29/18 06:40 MCHC 33 % (30-34) 06/29/18 06:40 RDW 19.3 % (13.2-15.2) H 06/29/18 06:40 Plt Count 88 K/mm3 (140-440) L 06/29/18 06:40 Lymph % (Auto) 6.0 % (13.4-35.0) L 06/28/18 08:30 Dawson % (Auto) 10.0 % (0.0-7.3) H 06/28/18 08:30 Eos % (Auto) 0.3 % (0.0-4.3) 06/28/18 08:30 Baso % (Auto) 0.3 % (0.0-1.8) 06/28/18 08:30 Lymph # 0.9 K/mm3 (1.2-5.4) L 06/28/18 08:30 Dawson # 1.6 K/mm3 (0.0-0.8) H 06/28/18 08:30 Eos # 0.1 K/mm3 (0.0-0.4) 06/28/18 08:30 Baso # 0.0 K/mm3 (0.0-0.1) 06/28/18 08:30 Add Manual Diff Complete 06/27/18 09:29 Total Counted 100 06/27/18 09:29 Seg Neutrophils % 83.4 % (40.0-70.0) H 06/28/18 08:30 Seg Neuts % (Manual) 91.0 % (40.0-70.0) H 06/27/18 09:29 Band Neutrophils % 0 % 06/27/18 09:29 Lymphocytes % (Manual) 3.0 % (13.4-35.0) L 06/27/18 09:29 Reactive Lymphs % (Man) 0 % 06/27/18 09:29 Monocytes % (Manual) 6.0 % (0.0-7.3) 06/27/18 09:29 Eosinophils % (Manual) 0 % (0.0-4.3) 06/27/18 09:29 Basophils % (Manual) 0 % (0.0-1.8) 06/27/18 09:29 Metamyelocytes % 0 % 06/27/18 09:29 Myelocytes % 0 % 06/27/18 09:29 Promyelocytes % 0 % 06/27/18 09:29 Blast Cells % 0 % 06/27/18 09:29 Nucleated RBC % Not Reportable 06/27/18 09:29 Seg Neutrophils # 13.1 K/mm3 (1.8-7.7) H 06/28/18 08:30 Seg Neutrophils # Man 14.8 K/mm3 (1.8-7.7) H 06/27/18 09:29 Band Neutrophils # 0.0 K/mm3 06/27/18 09:29 Lymphocytes # (Manual) 0.5 K/mm3 (1.2-5.4) L 06/27/18 09:29 Abs React Lymphs (Man) 0.0 K/mm3 06/27/18 09:29 Monocytes # (Manual) 1.0 K/mm3 (0.0-0.8) H 06/27/18 09:29 Eosinophils # (Manual) 0.0 K/mm3 (0.0-0.4) 06/27/18 09:29 Basophils # (Manual) 0.0 K/mm3 (0.0-0.1) 06/27/18 09:29 Metamyelocytes # 0.0 K/mm3 06/27/18 09:29 Myelocytes # 0.0 K/mm3 06/27/18 09:29 Promyelocytes # 0.0 K/mm3 06/27/18 09:29 Blast Cells # 0.0 K/mm3 06/27/18 09:29 WBC Morphology Not Reportable 06/27/18 09:29 Hypersegmented Neuts Not Reportable 06/27/18 09:29 Hyposegmented Neuts Not Reportable 06/27/18 09:29 Hypogranular Neuts Not Reportable 06/27/18 09:29 Smudge Cells Not Reportable 06/27/18 09:29 Toxic Granulation Not Reportable 06/27/18 09:29 Toxic Vacuolation Not Reportable 06/27/18 09:29 Dohle Bodies Not Reportable 06/27/18 09:29 Pelger-Huet Anomaly Not Reportable 06/27/18 09:29 Sushma Rods Not Reportable 06/27/18 09:29 Platelet Estimate Consistent w auto 06/27/18 09:29 Clumped Platelets Not Reportable 06/27/18 09:29 Plt Clumps, EDTA Not Reportable 06/27/18 09:29 Large Platelets Not Reportable 06/27/18 09:29 Giant Platelets Not Reportable 06/27/18 09:29 Platelet Satelliting Not Reportable 06/27/18 09:29 Plt Morphology Comment Not Reportable 06/27/18 09:29 RBC Morphology Not Reportable 06/27/18 09:29 Dimorphic RBCs Not Reportable 06/27/18 09:29 Polychromasia Not Reportable 06/27/18 09:29 Hypochromasia Few 06/27/18 09:29 Poikilocytosis 2+ 06/27/18 09:29 Anisocytosis Not Reportable 06/27/18 09:29 Microcytosis Rare 06/27/18 09:29 Macrocytosis Not Reportable 06/27/18 09:29 Spherocytes Not Reportable 06/27/18 09:29 Pappenheimer Bodies Not Reportable 06/27/18 09:29 Sickle Cells Not Reportable 06/27/18 09:29 Target Cells 2+ 06/27/18 09:29 Tear Drop Cells Not Reportable 06/27/18 09:29 Ovalocytes Rare 06/27/18 09:29 Helmet Cells Not Reportable 06/27/18 09:29 [place] Bodies Not Reportable 06/27/18 09:29 Paoli Rings Not Reportable 06/27/18 09:29 Conway Cells Not Reportable 06/27/18 09:29 Bite Cells Not Reportable 06/27/18 09:29 Crenated Cell Not Reportable 06/27/18 09:29 Elliptocytes Not Reportable 06/27/18 09:29 Acanthocytes (Spur) Not Reportable 06/27/18 09:29 Rouleaux Not Reportable 06/27/18 09:29 Hemoglobin C Crystals Not Reportable 06/27/18 09:29 Schistocytes Not Reportable 06/27/18 09:29 Malaria parasites Not Reportable 06/27/18 09:29 Saqib Bodies Not Reportable 06/27/18 09:29 Hem Pathologist Commnt No 06/27/18 09:29 POC ABG pH 7.552 (7.35-7.45) H 06/28/18 10:53 POC ABG pCO2 40.8 (35-45) 06/28/18 10:53 POC ABG pO2 83 (80-105) 06/28/18 10:53 POC ABG HCO3 35.9 (22-26 mml/L) 06/28/18 10:53 POC ABG Total CO2 37 (23-27mmol/L) 06/28/18 10:53 POC ABG O2 Sat 97 06/28/18 10:53 POC ABG Base Excess 14 ((-2) - (+3)mmol/L) 06/28/18 10:53 FiO2 30 % 06/28/18 10:53 Sodium 137 mmol/L (137-145) 06/29/18 06:40 Potassium 2.7 mmol/L (3.6-5.0) L* 06/29/18 06:40 Chloride 95.3 mmol/L (98-107) L 06/29/18 06:40 Carbon Dioxide 32 mmol/L (22-30) H 06/29/18 06:40 Anion Gap 12 mmol/L 06/29/18 06:40 BUN 25 mg/dL (7-17) H 06/29/18 06:40 Creatinine 1.1 mg/dL (0.7-1.2) 06/29/18 06:40 Estimated GFR 60 ml/min 06/29/18 06:40 BUN/Creatinine Ratio 23 % 06/29/18 06:40 Glucose 145 mg/dL (65-100) H 06/29/18 06:40 POC Glucose 78 (70-105) 06/29/18 05:55 Hemoglobin A1c 5.5 % (4-6) 06/17/18 15:08 Osmolality 276 Mosm/kg 06/20/18 07:31 Lactic Acid 2.40 mmol/L (0.7-2.0) H* 06/28/18 08:30 Uric Acid 9.2 mg/dL (3.5-7.6) H 06/21/18 16:27 Calcium 7.9 mg/dL (8.4-10.2) L 06/29/18 06:40 Phosphorus 2.50 mg/dL (2.5-4.5) 06/20/18 07:31 Magnesium 1.70 mg/dL (1.7-2.3) 06/29/18 06:40 Total Bilirubin 3.60 mg/dL (0.1-1.2) H 06/29/18 06:40 Direct Bilirubin 1.6 mg/dL (0-0.2) H 06/17/18 11:00 Indirect Bilirubin -1.4 mg/dL 06/17/18 11:00 AST 213 units/L (5-40) H 06/29/18 06:40 ALT 47 units/L (7-56) 06/29/18 06:40 Alkaline Phosphatase 176 units/L (35-129) H 06/29/18 06:40 Ammonia 38.0 umol/L (25-60) 06/25/18 16:02 Total Creatine Kinase TNR 06/26/18 19:52 CK-MB (CK-2) TNR 06/26/18 19:52 CK-MB (CK-2) Rel Index TNR 06/26/18 19:52 Troponin T TNR 06/26/18 19:52 C-Reactive Protein 4.80 mg/dL (0.00-1.30) H 06/28/18 05:00 Total Protein 4.8 g/dL (6.3-8.2) L 06/29/18 06:40 Albumin 2.2 g/dL (3.9-5) L 06/29/18 06:40 Albumin/Globulin Ratio 0.8 % 06/29/18 06:40 Vitamin B1 <6 nmol/L (8-30) L 06/21/18 16:27 Vitamin B12 1598 pg/mL (211-911) H 06/20/18 20:53 25-OH Vitamin D Total 10 ng/mL (30-100) L 06/20/18 20:53 25-Hydroxy Vitamin D2 . 06/20/18 20:53 25-Hydroxy Vitamin D3 . 06/20/18 20:53 Folate 14.18 ng/mL (7.3-26.0) 06/20/18 20:53 TSH 1.540 mlU/mL (0.270-4.200) 06/27/18 09:29 Free T4 1.78 ng/dL (0.76-1.46) H 06/27/18 09:29 T3 (GILSON) 58 ng/dL (76-181) L 06/20/18 16:51 Urine Color Caryl (Yellow) 06/16/18 Unknown Urine Turbidity Clear (Clear) 06/16/18 Unknown Urine pH 5.0 (5.0-7.0) 06/16/18 Unknown Ur Specific [place] 1.025 (1.003-1.030) 06/16/18 Unknown Urine Protein 100 mg/dl mg/dL (Negative) 06/16/18 Unknown Urine Glucose (UA) 50 mg/dL (Negative) 06/16/18 Unknown Urine Ketones Neg mg/dL (Negative) 06/16/18 Unknown Urine Blood Neg (Negative) 06/16/18 Unknown Urine Nitrite Neg (Negative) 06/16/18 Unknown Urine Bilirubin Neg (Negative) 06/16/18 Unknown Urine Urobilinogen 4.0 mg/dL (<2.0) 06/16/18 Unknown Ur Leukocyte Esterase Neg (Negative) 06/16/18 Unknown Urine WBC (Auto) 4.0 /HPF (0.0-6.0) 06/16/18 Unknown Urine RBC (Auto) 5.0 /HPF (0.0-6.0) 06/16/18 Unknown U Epithel Cells (Auto) 7.0 /HPF (0-13.0) 06/16/18 Unknown Hyaline Casts 49 /LPF 06/16/18 Unknown Urine Mucus Few /HPF 06/16/18 Unknown Urine Osmolality 413 Mosm/kg 06/19/18 Unknown Urine Creatinine 61.7 mg/dL (0.1-20.0) H 06/19/18 Unknown Urine Total Protein 32 mg/dL (5-11.8) H 06/19/18 Unknown Salicylates 5.5 mg/dL (2.8-20.0) 06/16/18 21:43 Urine Opiates Screen Presumptive negative 06/16/18 Unknown Urine Methadone Screen Presumptive negative 06/16/18 Unknown Acetaminophen < 5.0 ug/mL (10.0-30.0) L 06/16/18 21:43 Ur Barbiturates Screen Presumptive negative 06/16/18 Unknown Ur Phencyclidine Scrn Presumptive negative 06/16/18 Unknown Ur Amphetamines Screen Presumptive negative 06/16/18 Unknown U Benzodiazepines Scrn Presumptive negative 06/16/18 Unknown Urine Cocaine Screen Presumptive negative 06/16/18 Unknown U Marijuana (THC) Screen Presumptive negative 06/16/18 Unknown Drugs of Abuse Note Disclamer 06/16/18 Unknown Plasma/Serum Alcohol < 0.01 % (0-0.07) 06/16/18 21:43 Thyroglobulin Antibody See scanned result 06/20/18 16:51 Thyroid Peroxidase Ab See scanned result 06/20/18 16:51 HIV 1&2 Antibody Rapid Non react (Non React) 06/21/18 16:27 HIV P24 Antigen Non react (Non React) 06/21/18 16:27 Active Medications - Current Medications Current Medications: Generic Name Dose Route Start Last Admin Trade Name Freq PRN Reason Stop Dose Admin Acetaminophen 650 mg 06/17/18 03:33 06/26/18 09:09 Tylenol PO 650 mg Q4H PRN Administration Fever >101 Albuterol/Ipratropium 1 ampul 06/27/18 14:00 06/29/18 16:17 Duoneb *Not For Prn Use* IH 1 ampul TIDRT JEANETTE Administration Apixaban 5 mg 06/20/18 16:00 06/29/18 11:04 Eliquis PO 5 mg Q12HR JEANETTE Administration Protocol Atorvastatin Calcium 20 mg 06/19/18 22:00 06/28/18 23:12 Lipitor PO 20 mg QHS JEANETTE Administration Digoxin 0.125 mg 06/24/18 17:00 06/29/18 18:22 Lanoxin PO 0.125 mg DAILY@1700 JEANETTE Administration Famotidine 20 mg 06/27/18 12:00 06/29/18 11:04 Pepcid PO 20 mg DAILY JEANETTE Administration Dobutamine HCl/Dextrose 500 mg in 250 mls @ 5.918 mls/hr 06/27/18 13:00 06/29/18 15:30 Dobutrex Drip 500mg/D5w 250ml IV 5 mcg/kg/min DIRECT JEANETTE 11.835 mls/hr Administration 2.5 MCG/KG/MIN Levofloxacin/Dextrose 750 mg in 150 mls @ 100 mls/hr 06/30/18 10:00 Levaquin 750mg/150ml IV 06/30/18 10:01 Q24HR JEANETTE Protocol Lactulose 20 gm 06/25/18 12:00 06/29/18 18:21 Cephulac PO Not Given Q6HR JEANETTE Metoclopramide HCl 5 mg 06/27/18 14:00 06/29/18 14:30 Reglan IV 06/30/18 06:01 5 mg Q8HR JEANETTE Administration Metoprolol Tartrate 25 mg 06/25/18 09:00 06/29/18 01:00 Lopressor PO Not Given Q8H JEANETTE Ondansetron HCl 4 mg 06/17/18 03:24 Zofran IV Q8H PRN Nausea And Vomiting Sertraline HCl 50 mg 06/24/18 10:00 06/29/18 11:04 Zoloft PO 50 mg DAILY JEANETTE Administration Nutrition/Malnutrition Assess - Dietary Evaluation Nutrition/Malnutrition Findings: Nutrition Notes Start: 06/24/18 15:14 Freq: Status: Active Protocol: Document 06/29/18 14:11 CP (Rec: 06/29/18 14:30 CP [id number]) Co-Sign 06/29/18 14:11 RM Nutrition Notes Initial or Follow up Reassessment Current Diagnosis Acute Kidney Injury, Hypertension,Heart Failure, Respiratory Failure Other Pertinent Diagnosis s/p cardiac arrest, psychosis, AMS Current Diet NPO Labs/Tests K 2.7 BUN 25 Pertinent Medications Reviewed Height 5 ft 5 in Weight 80.6 kg [place] Body Weight (kg) 56.81 BMI 29.5 Subjective/Other Information Pt not on the vent during time of visit and is NPO. Burn Absent Trauma Absent #1 Nutrition Diagnosis Inadequate oral intake Diagnosis Progress(for reassessment Continues documentation) Is patient on ventilator? No Is Patient Ambulatory and/or Out of Bed No REE-([facility]-confined to bed) [phone] Calculation Used for Recommendations [facility] Additional Notes Pro needs 1-1.2g/k-96 g/ day Fluid needs 1ml/kcall Nutrition Intervention Change Diet Order: Diet advancement per MD request Add Supplement/Snack (indicate name/kcal Ensure Enlive Flavor Rotate 1 /protein ) daily (once diet advanced) Provides kCal: 350 Provides Protein (gm) 20 Goal #1 Diet advancement Anticipated Discharge Needs: Unable to determine at this time Follow-Up By: 07/01/18 Additional Comments F/U: Diet advancement - Attestation Statement I have reviewed and agreed w/ Malnutrition eval & tx plan: Yes
[2018-06-30] MEDS: REGLAN IV SCH ×2 (00:57→06:45)
--- NOTE | 2018-06-30 03:13 | XRay Report ---
PROCEDURE: XR ABDOMEN 1V AP TECHNIQUE: Abdominal radiograph, single view. HISTORY: To verify NG tube placement. COMPARISONS: None . FINDINGS: Bowel gas pattern: There are multiple loops of slightly dilated air-filled small bowel in the midabd omen.. . Masses or calcifications: None . Bony structures: No significant abnormality . Other: The nasogastric tube ends in the stomach . IMPRESSION: The nasogastric tube ends in the mid stomach. This document is electronically signed by Chiquita Cevallos DO., June 30 2018 03:10:54 AM ET
[2018-06-30] MEDS: LOPRESSOR PO SCH ×4 (03:37→16:56)
[2018-06-30] MEDS: CEPHULAC PO SCH ×3 (03:42→17:01)
[2018-06-30] MEDS: ELIQUIS PO SCH ×2 (03:46→11:00)
[2018-06-30 05:38] LABS: Hematocrit 36.8 % (30.3-42.9); Hemoglobin 11.8 gm/dl (10.1-14.3); Mean Corpuscular HGB Conc 32 % (30-34); Mean Corpuscular Volume 78 fl (79-97); Red Blood Count 4.74 M/mm3 (3.65-5.03)
[2018-06-30 05:43] LABS: Platelet Count 91 K/mm3 (140-440)
[2018-06-30 06:06] LABS: Alanine Aminotransferase 63 units/L (7-56); Albumin 2.1 g/dL (3.9-5); BUN/Creatinine Ratio 23; Blood Urea Nitrogen 18 mg/dL (7-17); Hemolysis Index 6
[2018-06-30] MEDS ORDERED: MAGNESIUM SULFATE IV ONE ×2 (07:00→07:04)
[2018-06-30] MEDS ORDERED: NACL 0.9% IV ONE (07:00)
[2018-06-30] MEDS ORDERED: KCL IV ONE (07:00)
[2018-06-30] MEDS: DUONEB *Not for PRN Use IH SCH ×2 (09:27→16:13)
[2018-06-30] MEDS: KCL 10MEQ/100ML 10 MEQ/100 ML BAG IV SCH ×5 (09:49→16:59)
[2018-06-30] MEDS ORDERED: LEVAQUIN 750MG/150ML 750 MG/150 ML BAG IV SCH (10:00)
--- NOTE | 2018-06-30 10:02 | Progress Note ---
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 163 H Ammonia C-Reactive Protein Total Protein 4.5 L Albumin 2.1 L Vitamin B1 Vitamin B12 25-OH Vitamin D Total Free T4 T3 (GILSON) Urine Creatinine Urine Total Protein Acetaminophen 06/30/18 06/30/18 04:45 06:24 WBC 12.1 H RBC Hgb Hct MCV 78 L MCH 25 L RDW 19.0 H Plt Count 91 L Lymph % (Auto) [place] % (Auto) Lymph # [place] # Seg Neutrophils % Seg Neuts % (Manual) Lymphocytes % (Manual) Seg Neutrophils # Seg Neutrophils # Man Lymphocytes # (Manual) Monocytes # (Manual) POC ABG pH POC ABG pCO2 POC ABG pO2 Sodium Potassium Chloride Carbon Dioxide BUN Creatinine Glucose POC Glucose 63 L Lactic Acid Uric Acid Calcium Magnesium Total Bilirubin Direct Bilirubin AST ALT Alkaline Phosphatase Ammonia C-Reactive Protein Total Protein Albumin Vitamin B1 Vitamin B12 25-OH Vitamin D Total Free T4 T3 (GILSON) Urine Creatinine Urine Total Protein Acetaminophen Allied health notes reviewed: nursing
--- NOTE | 2018-06-30 10:05 | Progress Note ---
Assessment and Plan S/P Cardiac arrest thought secondary to Haldol treatment s/p cardioversion Hypokalemia Respiratory failure -extubated Chronic systolic heart failure Atrial fibrillation/flutter currently in sinus rhythm Severe depression Altered mental status Recently discharged from [facility] to home hospice care Non-ischemic cardiomyopathy Lactic acidosis Hyponatremia - chronic Elevated bilirubin and alk phosphatase - chronic secondary to congestive hepatopathy Non-compliance with medical therapy and outpatient cardiac follow up. Echo 04/2018 at [facility] showed: a 4 chamber dilated cardiomyopathy, LVEF severely decreased, 20-25%. Moderate mitral regurgitation. Severe TR. RVSP is severely elevated. Recommend: Replete potassium. Medical therapy for chronic systolic left ventricular dysfunction as tolerated. Conservative cardiac management. Subjective Date of service: 06/30/18 Principal diagnosis: altered mental status, psychosis, chronic systolic heart failure, Interval history: Patient is resting in bed comfortably. She has no chest pain or shortness of breath. Noted severely hypokalemic on morning labs. Objective Vital Signs Temp Pulse Pulse Pulse Resp Resp BP 06/30/18 09:40 06/30/18 09:39 102 H 18 06/30/18 09:25 102 H 18 06/30/18 08:00 98.4 F 06/30/18 06:00 103 H 21 156/71 06/30/18 05:00 104 H 21 138/77 06/30/18 04:01 110 H 21 153/60 06/30/18 04:00 98.5 F 106 H 16 06/30/18 03:44 115 H 146/68 06/30/18 03:00 111 H 14 146/68 06/30/18 02:01 114 H 18 140/79 06/30/18 01:00 112 H 17 140/79 06/30/18 00:01 112 H 21 142/55 06/30/18 00:00 98.5 F 117 H 14 06/29/18 23:00 115 H 18 141/84 06/29/18 22:01 112 H 16 125/89 06/29/18 21:01 111 H 14 125/89 06/29/18 20:43 107 H 19 06/29/18 20:37 06/29/18 20:35 108 H 22 06/29/18 20:01 108 H 23 125/89 06/29/18 20:00 97.7 F 105 H 19 06/29/18 19:01 103 H 15 133/88 06/29/18 18:22 102 H 125/89 06/29/18 18:01 105 H 19 125/89 06/29/18 17:01 101 H 27 H 148/79 06/29/18 16:26 107 H 24 06/29/18 16:17 102 H 20 06/29/18 16:15 102 H 24 105/73 06/29/18 16:01 110 H 23 105/73 06/29/18 16:00 97.4 F L 99 H 19 06/29/18 15:45 105 H 17 125/51 06/29/18 15:31 96 H 18 125/51 06/29/18 15:15 105 H 24 125/51 06/29/18 15:01 105 H 26 H 125/51 06/29/18 14:45 103 H 22 125/51 06/29/18 14:31 107 H 18 125/51 06/29/18 14:15 108 H 23 125/51 06/29/18 14:00 101 H 19 121/60 06/29/18 13:45 100 H 35 H 121/60 06/29/18 13:31 103 H 19 123/69 06/29/18 13:15 103 H 22 123/69 06/29/18 13:01 107 H 18 123/69 06/29/18 13:00 105 H 06/29/18 12:45 112 H 13 123/69 06/29/18 12:31 106 H 21 123/69 06/29/18 12:15 102 H 17 123/69 06/29/18 12:00 97.6 F 107 H 101 H 17 123/69 06/29/18 11:45 106 H 28 H 115/74 06/29/18 11:31 108 H 14 115/74 06/29/18 11:15 106 H 16 115/74 06/29/18 11:01 108 H 17 115/74 06/29/18 10:45 106 H 23 107/57 06/29/18 10:31 108 H 16 107/57 06/29/18 10:15 110 H 23 107/57 Pulse Ox 06/30/18 09:40 94 06/30/18 09:39 06/30/18 09:25 06/30/18 08:00 06/30/18 06:00 99 06/30/18 05:00 100 06/30/18 04:01 99 06/30/18 04:00 99 06/30/18 03:44 06/30/18 03:00 100 06/30/18 02:01 99 06/30/18 01:00 98 06/30/18 00:01 100 06/30/18 00:00 98 06/29/18 23:00 06/29/18 22:01 06/29/18 21:01 100 06/29/18 20:43 06/29/18 20:37 96 06/29/18 20:35 06/29/18 20:01 98 06/29/18 20:00 100 06/29/18 19:01 80 L 06/29/18 18:22 06/29/18 18:01 99 06/29/18 17:01 90 06/29/18 16:26 06/29/18 16:17 06/29/18 16:15 94 06/29/18 16:01 63 L 06/29/18 16:00 97 06/29/18 15:45 91 06/29/18 15:31 90 06/29/18 15:15 92 06/29/18 15:01 93 06/29/18 14:45 90 06/29/18 14:31 73 L 06/29/18 14:15 88 06/29/18 14:00 89 06/29/18 13:45 92 06/29/18 13:31 91 06/29/18 13:15 91 06/29/18 13:01 92 06/29/18 13:00 06/29/18 12:45 94 06/29/18 12:31 98 06/29/18 12:15 96 06/29/18 12:00 96 06/29/18 11:45 98 06/29/18 11:31 96 06/29/18 11:15 96 06/29/18 11:01 96 06/29/18 10:45 96 06/29/18 10:31 90 06/29/18 10:15 88 - Physical Examination General: No Apparent Distress HEENT: Positive: PERRL Neck: Positive: trachea midline Cardiac: Positive: Reg Rate and Rhythm Lungs: Positive: Decreased Breath Sounds Neuro: Positive: Grossly Intact Extremities: Absent: edema - Labs and Meds Cardiac Enzymes 06/30/18 Range/Units 04:45 AST 216 H (5-40) units/L CBC 06/30/18 Range/Units 04:45 WBC 12.1 H (4.5-11.0) K/mm3 RBC 4.74 (3.65-5.03) M/mm3 Hgb 11.8 (10.1-14.3) gm/dl Hct 36.8 (30.3-42.9) % Plt Count 91 L (140-440) K/mm3 Comprehensive Metabolic Panel 06/29/18 06/30/18 Range/Units 20:43 04:45 Sodium 140 (137-145) mmol/L Potassium 3.1 L 2.8 L* (3.6-5.0) mmol/L Chloride 98.4 (98-107) mmol/L Carbon Dioxide 31 H (22-30) mmol/L BUN 18 H (7-17) mg/dL Creatinine 0.8 (0.7-1.2) mg/dL Glucose 78 (65-100) mg/dL Calcium 8.0 L (8.4-10.2) mg/dL AST 216 H (5-40) units/L ALT 63 H (7-56) units/L Alkaline Phosphatase 163 H (35-129) units/L Total Protein 4.5 L (6.3-8.2) g/dL Albumin 2.1 L (3.9-5) g/dL - Allied health notes Allied health notes reviewed: nursing
[2018-06-30] MEDS: ZOLOFT PO SCH (11:00)
[2018-06-30] MEDS: PEPCID PO SCH (11:00)
[2018-06-30] MEDS: DOBUTREX DRIP 500MG/D5W 250ML 500 MG/250 ML BAG IV SCH (11:49)
[2018-06-30] MEDS ORDERED: POTASSIUM CHLORIDE FEEDTUBE ONE ×2 (13:05→16:00)
--- NOTE | 2018-06-30 16:23 | Progress Note ---
Assessment and Plan Assessment and plan: Patient is 68 yo woman with a history of hypertension, CHF and Atrial fibrillation who presented with altered mental status. She was climbing a fence, running wild; therefore, brought to ED. No previous psych history. CT neg. She was sedated in ED, and admitted. MRI Brain unremarkable. Patient evaluated by Neuro. Review of records show that patient was formally in Hospice and at some point had moved out of state then returned, Cardiology reports that due to her psych problems she is not a candidate for aggressive medical management, Unfortunately we cannot reach family to determine patients compliance. It does appear the patient has been non complaint with medication and on this admission shows generalized anasacar and with concern for Passive congestive hepatic failure. She has also demonstrate intermittent low grade fever on admission with concern for pneumonia. * Patient was treated with initially for SIRS secondary to Pneumonia and also Atrial Fibrillation and following cardiology evaluation, and recommended conservative management due to the patients psychiatric issues. * She was also initially 1013 and it was rescinded * During the stay, and review of all records, we attempted to contact family but to no avail to discuss hospice. * She was noted to be hypotensive and due to the balance in fluids considering her Cardiac status, she received a few small bolus, but remained with i ntermittent Encephalopathy. * She received Haldol in bid to obtain CT head but had PEA arrest a few hours later * Code Blue called as patient was noted to have bradycardia and became unresponsive and pulseless. 2 rounds epi, CPR, then pulse check showed Ventricular fibrillation and 1 shock via defibrillator was delivered with returning of pulse. Patient was intubated and IO for Medication delivery access. IMPRESSION: * Focal infiltrate in the left midlung. Differential diagnosis includes postinflammatory scarring and/or subsegmental atelectasis. LV normal size. Normal LV wall thickness. Severe global LV hypokinesis. Systolic and diastolic septal flattening c/w RV volume and pressure overload. LVEF is 21%. EF 20 - 25%. LVEF severely decreased. Grade III (severe) diastolic dysfunction c/w restrictive physiology. RV moderately dilated. RV wall motion normal. RV systolic function is normal. Abnormal RV diastolic function. LA severely dilated. RA severely dilated. Tricuspid AV. AV mildly thickened. AV opens well. Trace AR. No AV stenosis. MV mildly thickened. Moderate mitral regurgitation. Tricuspid leaflets do not completely coapt. Severe TR. Estimated RAP 15 mmHg. RAP elevated. RVSP is severely elevated. RVSP is underestimated, believed to be severe /Acute Respiratory failure following Cardiac Arrest- now off the ventilator and on NS /Hypoglycemia--Blood glucose was 20 during the code- resolved /Altered mental status, with acute encephalopathy: -Reconsult psychiatrist. Still awaiting repeat CT of the head. /Psychosis: Psych following, resumed one-to-one when patient comes to medical floor /Acute kidney injury: secondary to visible to nephropathy now resolved- nephrology following /Permanent Atrial fib/flutter: Eliquis resumed /chronic systolic CHF of EF 20-25%, patient has been on hospice before, it appears she was discharged from hospice. 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 Antibiotics discontinued /Persistently elevated Lactic acidosis:-Likely secondary to hypoperfusion- improving /Stage D non ischemic cardiomyopathy per cardiology- possible end-stage cardiomyopathy /Severe protein calorie malnutrition: Stock Buyer consulted /Hypokalemia: replace /Remains on restraints for safety DVT prophylaxis: Patient is on Eliquis POOR PROGNOSIS. Will discuss hospice family not agreeable to hospice yet. Nephew advised of all our finding so far. There is also a caregiver in the [facility] that nephew defers to. Discussed with cardiology and Renal. The high probability of a clinically significant, sudden or life threatening deterioration of the [cardiac, pulmonary, hepatic] system(s) required my full an d direct attention, intervention and personal management. The aggregate critical care time was [35] minutes. This time is in addition to time spent performing reported procedures but includes the following: [x] Data Review and interpretation [x] Patient assessment and monitoring of vital signs [x] Documentation [x] Medication orders and management History Interval history: Patient seen and examined this morning, noted with delirium, still on re straints. No respiratory distress noted Hospitalist Physical - Physical exam Narrative exam: Constitutional: chronically ill appearing, lethargic Head: Normocephalic atraumatic Eyes: Pupils are equal round and reactive to light, Jaundice Nose: No enlarged turbinates, no septal deviation. Mouth: Moist mucous membranes. Neck: Supple no thyromegaly. No bruit. No JVD Heart: Regular rate and rhythm, S1-S2 displaced towards the apex. No rubs murmurs or gallop Lungs: Clear to auscultation bilaterally. no rales or rhonchi Abdomen: Soft, nontender. Bowel sound are present. Extremities: 1+ pitting pedal edema, no cyanosis, no clubbing. generalized anasacar Neuro: awake, moves all ext, oriented to person only Skin: No rashes or hyperpigmented spots Musculoskeletal system: No joint pain or swelling Hematological: No petechia or subcutanous hemorrhages. Immunological: No multiple septic spots on the skin Lymphatic: No generalized lymphadenopathy Psychiatry:Unable to assess - Constitutional Vitals: Temp Pulse Resp BP Pulse Ox 97.9 F 101 H 21 108/73 95 06/30/18 12:00 06/30/18 13:00 06/30/18 13:00 06/30/18 13:00 06/30/18 13:00 General appearance: Present: no acute distress Results - Labs CBC & Chem 7: 06/30/18 04:45 06/30/18 04:45 Labs: Laboratory Last Values WBC 12.1 K/mm3 (4.5-11.0) H 06/30/18 04:45 RBC 4.74 M/mm3 (3.65-5.03) 06/30/18 04:45 Hgb 11.8 gm/dl (10.1-14.3) 06/30/18 04:45 Hct 36.8 % (30.3-42.9) 06/30/18 04:45 MCV 78 fl (79-97) L 06/30/18 04:45 MCH 25 pg (28-32) L 06/30/18 04:45 MCHC 32 % (30-34) 06/30/18 04:45 RDW 19.0 % (13.2-15.2) H 06/30/18 04:45 Plt Count 91 K/mm3 (140-440) L 06/30/18 04:45 Lymph % (Auto) 6.0 % (13.4-35.0) L 06/28/18 08:30 [place] % (Auto) 10.0 % (0.0-7.3) H 06/28/18 08:30 Eos % (Auto) 0.3 % (0.0-4.3) 06/28/18 08:30 Baso % (Auto) 0.3 % (0.0-1.8) 06/28/18 08:30 Lymph # 0.9 K/mm3 (1.2-5.4) L 06/28/18 08:30 [place] # 1.6 K/mm3 (0.0-0.8) H 06/28/18 08:30 Eos # 0.1 K/mm3 (0.0-0.4) 06/28/18 08:30 Baso # 0.0 K/mm3 (0.0-0.1) 06/28/18 08:30 Add Manual Diff Complete 06/27/18 09:29 Total Counted 100 06/27/18 09:29 Seg Neutrophils % 83.4 % (40.0-70.0) H 06/28/18 08:30 Seg Neuts % (Manual) 91.0 % (40.0-70.0) H 06/27/18 09:29 Band Neutrophils % 0 % 06/27/18 09:29 Lymphocytes % (Manual) 3.0 % (13.4-35.0) L 06/27/18 09:29 Reactive Lymphs % (Man) 0 % 06/27/18 09:29 Monocytes % (Manual) 6.0 % (0.0-7.3) 06/27/18 09:29 Eosinophils % (Manual) 0 % (0.0-4.3) 06/27/18 09:29 Basophils % (Manual) 0 % (0.0-1.8) 06/27/18 09:29 Metamyelocytes % 0 % 06/27/18 09:29 Myelocytes % 0 % 06/27/18 09:29 Promyelocytes % 0 % 06/27/18 09:29 Blast Cells % 0 % 06/27/18 09:29 Nucleated RBC % Not Reportable 06/27/18 09:29 Seg Neutrophils # 13.1 K/mm3 (1.8-7.7) H 06/28/18 08:30 Seg Neutrophils # Man 14.8 K/mm3 (1.8-7.7) H 06/27/18 09:29 Band Neutrophils # 0.0 K/mm3 06/27/18 09:29 Lymphocytes # (Manual) 0.5 K/mm3 (1.2-5.4) L 06/27/18 09:29 Abs React Lymphs (Man) 0.0 K/mm3 06/27/18 09:29 Monocytes # (Manual) 1.0 K/mm3 (0.0-0.8) H 06/27/18 09:29 Eosinophils # (Manual) 0.0 K/mm3 (0.0-0.4) 06/27/18 09:29 Basophils # (Manual) 0.0 K/mm3 (0.0-0.1) 06/27/18 09:29 Metamyelocytes # 0.0 K/mm3 06/27/18 09:29 Myelocytes # 0.0 K/mm3 06/27/18 09:29 Promyelocytes # 0.0 K/mm3 06/27/18 09:29 Blast Cells # 0.0 K/mm3 06/27/18 09:29 WBC Morphology Not Reportable 06/27/18 09:29 Hypersegmented Neuts Not Reportable 06/27/18 09:29 Hyposegmented Neuts Not Reportable 06/27/18 09:29 Hypogranular Neuts Not Reportable 06/27/18 09:29 Smudge Cells Not Reportable 06/27/18 09:29 Toxic Granulation Not Reportable 06/27/18 09:29 Toxic Vacuolation Not Reportable 06/27/18 09:29 Dohle Bodies Not Reportable 06/27/18 09:29 Pelger-Huet Anomaly Not Reportable 06/27/18 09:29 Sushma Rods Not Reportable 06/27/18 09:29 Platelet Estimate Consistent w auto 06/27/18 09:29 Clumped Platelets Not Reportable 06/27/18 09:29 Plt Clumps, EDTA Not Reportable 06/27/18 09:29 Large Platelets Not Reportable 06/27/18 09:29 Giant Platelets Not Reportable 06/27/18 09:29 Platelet Satelliting Not Reportable 06/27/18 09:29 Plt Morphology Comment Not Reportable 06/27/18 09:29 RBC Morphology Not Reportable 06/27/18 09:29 Dimorphic RBCs Not Reportable 06/27/18 09:29 Polychromasia Not Reportable 06/27/18 09:29 Hypochromasia Few 06/27/18 09:29 Poikilocytosis 2+ 03/25/19 09:29 Anisocytosis Not Reportable 06/27/18 09:29 Microcytosis Rare 06/27/18 09:29 Macrocytosis Not Reportable 06/27/18 09:29 Spherocytes Not Reportable 06/27/18 09:29 Pappenheimer Bodies Not Reportable 06/27/18 09:29 Sickle Cells Not Reportable 06/27/18 09:29 Target Cells 2+ 06/27/18 09:29 Tear Drop Cells Not Reportable 06/27/18 09:29 Ovalocytes Rare 06/27/18 09:29 Helmet Cells Not Reportable 06/27/18 09:29 [place] Bodies Not Reportable 06/27/18 09:29 [place] Rings Not Reportable 06/27/18 09:29 [place] Cells Not Reportable 06/27/18 09:29 Bite Cells Not Reportable 06/27/18 09:29 Crenated Cell Not Reportable 06/27/18 09:29 Elliptocytes Not Reportable 06/27/18 09:29 Acanthocytes (Spur) Not Reportable 06/27/18 09:29 Rouleaux Not Reportable 06/27/18 09:29 Hemoglobin C Crystals Not Reportable 06/27/18 09:29 Schistocytes Not Reportable 06/27/18 09:29 Malaria parasites Not Reportable 06/27/18 09:29 Saqib Bodies Not Reportable 06/27/18 09:29 Hem Pathologist Commnt No 06/27/18 09:29 POC ABG pH 7.552 (7.35-7.45) H 06/28/18 10:53 POC ABG pCO2 40.8 (35-45) 06/28/18 10:53 POC ABG pO2 83 (80-105) 06/28/18 10:53 POC ABG HCO3 35.9 (22-26 mml/L) 06/28/18 10:53 POC ABG Total CO2 37 (23-27mmol/L) 06/28/18 10:53 POC ABG O2 Sat 97 06/28/18 10:53 POC ABG Base Excess 14 ((-2) - (+3)mmol/L) 06/28/18 10:53 FiO2 30 % 06/28/18 10:53 Sodium 140 mmol/L (137-145) 06/30/18 04:45 Potassium 2.8 mmol/L (3.6-5.0) L* 06/30/18 04:45 Chloride 98.4 mmol/L (98-107) 06/30/18 04:45 Carbon Dioxide 31 mmol/L (22-30) H 06/30/18 04:45 Anion Gap 13 mmol/L 06/30/18 04:45 BUN 18 mg/dL (7-17) H 06/30/18 04:45 Creatinine 0.8 mg/dL (0.7-1.2) 06/30/18 04:45 Estimated GFR > 60 ml/min 06/30/18 04:45 BUN/Creatinine Ratio 23 % 06/30/18 04:45 Glucose 78 mg/dL (65-100) 06/30/18 04:45 POC Glucose 63 (70-105) L 06/30/18 06:24 Hemoglobin A1c 5.5 % (4-6) 06/17/18 15:08 Osmolality 276 Mosm/kg 06/20/18 07:31 Lactic Acid 2.40 mmol/L (0.7-2.0) H* 06/28/18 08:30 Uric Acid 9.2 mg/dL (3.5-7.6) H 06/21/18 16:27 Calcium 8.0 mg/dL (8.4-10.2) L 06/30/18 04:45 Phosphorus 2.50 mg/dL (2.5-4.5) 06/20/18 07:31 Magnesium 1.70 mg/dL (1.7-2.3) 06/29/18 06:40 Total Bilirubin 3.70 mg/dL (0.1-1.2) H 06/30/18 04:45 Direct Bilirubin 1.6 mg/dL (0-0.2) H 06/17/18 11:00 Indirect Bilirubin -1.4 mg/dL 06/17/18 11:00 AST 216 units/L (5-40) H 06/30/18 04:45 ALT 63 units/L (7-56) H 06/30/18 04:45 Alkaline Phosphatase 163 units/L (35-129) H 06/30/18 04:45 Ammonia 38.0 umol/L (25-60) 06/25/18 16:02 Total Creatine Kinase TNR 06/26/18 19:52 CK-MB (CK-2) TNR 06/26/18 19:52 CK-MB (CK-2) Rel Index TNR 06/26/18 19:52 Troponin T TNR 06/26/18 19:52 C-Reactive Protein 4.80 mg/dL (0.00-1.30) H 06/28/18 05:00 Total Protein 4.5 g/dL (6.3-8.2) L 06/30/18 04:45 Albumin 2.1 g/dL (3.9-5) L 06/30/18 04:45 Albumin/Globulin Ratio 0.9 % 06/30/18 04:45 Vitamin B1 <6 nmol/L (8-30) L 06/21/18 16:27 Vitamin B12 1598 pg/mL (211-911) H 06/20/18 20:53 25-OH Vitamin D Total 10 ng/mL (30-100) L 06/20/18 20:53 25-Hydroxy Vitamin D2 . 06/20/18 20:53 25-Hydroxy Vitamin D3 . 06/20/18 20:53 Folate 14.18 ng/mL (7.3-26.0) 06/20/18 20:53 TSH 1.540 mlU/mL (0.270-4.200) 06/27/18 09:29 Free T4 1.78 ng/dL (0.76-1.46) H 06/27/18 09:29 T3 (GILSON) 58 ng/dL (76-181) L 06/20/18 16:51 Urine Color Caryl (Yellow) 06/16/18 Unknown Urine Turbidity Clear (Clear) 06/16/18 Unknown Urine pH 5.0 (5.0-7.0) 06/16/18 Unknown Ur Specific Winfred 1.025 (1.003-1.030) 06/16/18 Unknown Urine Protein 100 mg/dl mg/dL (Negative) 06/16/18 Unknown Urine Glucose (UA) 50 mg/dL (Negative) 06/16/18 Unknown Urine Ketones Neg mg/dL (Negative) 06/16/18 Unknown Urine Blood Neg (Negative) 06/16/18 Unknown Urine Nitrite Neg (Negative) 06/16/18 Unknown Urine Bilirubin Neg (Negative) 06/16/18 Unknown Urine Urobilinogen 4.0 mg/dL (<2.0) 06/16/18 Unknown Ur Leukocyte Esterase Neg (Negative) 06/16/18 Unknown Urine WBC (Auto) 4.0 /HPF (0.0-6.0) 06/16/18 Unknown Urine RBC (Auto) 5.0 /HPF (0.0-6.0) 06/16/18 Unknown U Epithel Cells (Auto) 7.0 /HPF (0-13.0) 06/16/18 Unknown Hyaline Casts 49 /LPF 06/16/18 Unknown Urine Mucus Few /HPF 06/16/18 Unknown Urine Osmolality 413 Mosm/kg 06/19/18 Unknown Urine Creatinine 61.7 mg/dL (0.1-20.0) H 06/19/18 Unknown Urine Total Protein 32 mg/dL (5-11.8) H 06/19/18 Unknown Salicylates 5.5 mg/dL (2.8-20.0) 06/16/18 21:43 Urine Opiates Screen Presumptive negative 06/16/18 Unknown Urine Methadone Screen Presumptive negative 06/16/18 Unknown Acetaminophen < 5.0 ug/mL (10.0-30.0) L 06/16/18 21:43 Ur Barbiturates Screen Presumptive negative 06/16/18 Unknown Ur Phencyclidine Scrn Presumptive negative 06/16/18 Unknown Ur Amphetamines Screen Presumptive negative 06/16/18 Unknown U Benzodiazepines Scrn Presumptive negative 06/16/18 Unknown Urine Cocaine Screen Presumptive negative 06/16/18 Unknown U Marijuana (THC) Screen Presumptive negative 06/16/18 Unknown Drugs of Abuse Note Disclamer 06/16/18 Unknown Plasma/Serum Alcohol < 0.01 % (0-0.07) 06/16/18 21:43 Thyroglobulin Antibody See scanned result 06/20/18 16:51 Thyroid Peroxidase Ab See scanned result 06/20/18 16:51 HIV 1&2 Antibody Rapid Non react (Non React) 06/21/18 16:27 HIV P24 Antigen Non react (Non React) 06/21/18 16:27 Active Medications - Current Medications Current Medications: Generic Name Dose Route Start Last Admin Trade Name Freq PRN Reason Stop Dose Admin Acetaminophen 650 mg 06/17/18 03:33 06/26/18 09:09 Tylenol PO 650 mg Q4H PRN Administration Fever >101 Albuterol/Ipratropium 1 ampul 06/27/18 14:00 06/30/18 16:13 Duoneb *Not For Prn Use* IH Not Given TIDRT JEANETTE Apixaban 5 mg 06/20/18 16:00 06/30/18 11:00 Eliquis PO 5 mg Q12HR JEANETTE Administration Protocol Atorvastatin Calcium 20 mg 06/19/18 22:00 06/30/18 03:46 Lipitor PO Not Given QHS JEANETTE Digoxin 0.125 mg 06/24/18 17:00 06/29/18 18:22 Lanoxin PO 0.125 mg DAILY@1700 JEANETTE Administration Famotidine 20 mg 06/27/18 12:00 06/30/18 11:00 Pepcid PO 20 mg DAILY JEANETTE Administration Dobutamine HCl/Dextrose 500 mg in 250 mls @ 5.918 mls/hr 06/27/18 13:00 06/30/18 11:49 Dobutrex Drip 500mg/D5w 250ml IV 5 mcg/kg/min DIRECT JEANETTE 11.835 mls/hr Administration 2.5 MCG/KG/MIN Potassium Chloride 10 meq in 100 mls @ 100 mls/hr 06/30/18 15:00 06/30/18 15:23 Kcl 10meq/100ml IV 06/30/18 18:59 100 mls/hr Q1H JEANETTE Administration Lactulose 20 gm 06/25/18 12:00 06/30/18 12:06 Cephulac PO Not Given Q6HR JEANETTE Metoprolol Tartrate 25 mg 06/25/18 09:00 06/30/18 11:00 Lopressor PO 25 mg Q8H JEANETTE Administration Ondansetron HCl 4 mg 06/17/18 03:24 Zofran IV Q8H PRN Nausea And Vomiting Sertraline HCl 50 mg 06/24/18 10:00 06/30/18 11:00 Zoloft PO 50 mg DAILY JEANETTE Administration Nutrition/Malnutrition Assess - Dietary Evaluation Nutrition/Malnutrition Findings: Nutrition Notes Start: 06/24/18 15:14 Freq: Status: Active Protocol: Document 06/29/18 14:11 CP (Rec: 06/29/18 14:30 CP [id number]) Co-Sign 03/27/19 14:11 RM Nutrition Notes Initial or Follow up Reassessment Current Diagnosis Acute Kidney Injury, Hypertension,Heart Failure, Respiratory Failure Other Pertinent Diagnosis s/p cardiac arrest, psychosis, AMS Current Diet NPO Labs/Tests K 2.7 BUN 25 Pertinent Medications Reviewed Height 5 ft 5 in Weight 80.6 kg [place] Body Weight (kg) 56.81 BMI 29.5 Subjective/Other Information Pt not on the vent during time of visit and is NPO. Burn Absent Trauma Absent #1 Nutrition Diagnosis Inadequate oral intake Diagnosis Progress(for reassessment Continues documentation) Is patient on ventilator? No Is Patient Ambulatory and/or Out of Bed No REE-(Stokes-St. Jeor-confined to bed) [phone] Calculation Used for Recommendations Stokes-St Jeor Additional Notes Pro needs 1-1.2g/k-96 g/ day Fluid needs 1ml/kcall Nutrition Intervention Change Diet Order: Diet advancement per MD request Add Supplement/Snack (indicate name/kcal Ensure Enlive Flavor Rotate 1 /protein ) daily (once diet advanced) Provides kCal: 350 Provides Protein (gm) 20 Goal #1 Diet advancement Anticipated Discharge Needs: Unable to determine at this time Follow-Up By: 07/01/18 Additional Comments F/U: Diet advancement
[2018-06-30] MEDS: LANOXIN PO SCH (16:58)
[2018-06-30] MEDS ORDERED: D5NS 1,000 ML IV SCH (17:00)
--- NOTE | 2018-06-30 17:26 | Progress Note ---
Assessment and Plan - Patient Problems (1) Acute kidney failure with tubular necrosis Current Visit: Yes Status: Acute Plan to address problem: acute tubular necrosis secondary to cardiac arrest. pt remains non-oliguric, renal function stabilizing with hemodynamic stabilization and on inotropic support with dobutamine. avoid nephrotoxins, IV contrast. (2) Hyponatremia with decreased serum osmolality Current Visit: Yes Status: Acute Plan to address problem: Likely in the setting of fluid overload. resume lasix once BP stable and K normalized. (3) Cardiac arrest Current Visit: Yes Status: Acute Plan to address problem: s/p code blue, ACLS with ROSC, now on dobutamine gtt. follow cardiology recommendations (4) Fluid overload Current Visit: Yes Status: Chronic Qualifiers: Hypervolemia type: other Qualified Code(s): E87.79 - Other fluid overload Plan to address problem: cont fluid restrictions and appropriate low-sodium diet given her history of end-stage heart disease and cardiomyopathy. resume diuresis once BP stable/K normalized. (5) Acute on chronic systolic heart failure Current Visit: No Status: Acute Plan to address problem: on inotropic support with dobutamine. Follow up with further recommendations per cardiology. (6) Altered mental status Current Visit: Yes Status: Acute Plan to address problem: (7) HTN (hypertension) Current Visit: No Status: Chronic Plan to address problem: Continue on current regimen and will monitor. (8) Hypokalemia Current Visit: Yes Status: Acute Plan to address problem: supplementation with IV KCL and po K Dur ongoing to target K > 4 Subjective Date of service: 06/30/18 Principal diagnosis: altered mental status, psychosis, chronic systolic heart failure, Interval history: pt awake, in no acute respiratory distress. on dobutamin gtt with increased UOP, improved renal function. Objective - Vital Signs Vital signs: Vital Signs - 12hr 06/30/18 06/30/18 06/30/18 06:00 07:00 08:00 Temperature 98.4 F Pulse Rate 103 H 114 H Pulse Rate [ 101 H From Monitor] Pulse Rate [ Throughout] Respiratory 21 20 20 Rate Respiratory Rate [ Throughout] Blood Pressure 156/71 156/71 O2 Sat by Pulse 99 97 93 Oximetry 06/30/18 06/30/18 06/30/18 08:01 09:00 09:25 Temperature Pulse Rate 107 H 103 H Pulse Rate [ From Monitor] Pulse Rate [ 102 H Throughout] Respiratory 17 24 Rate Respiratory 18 Rate [ Throughout] Blood Pressure 124/72 127/77 O2 Sat by Pulse 98 96 Oximetry 06/30/18 06/30/18 06/30/18 09:39 09:40 10:01 Temperature Pulse Rate 106 H Pulse Rate [ From Monitor] Pulse Rate [ 102 H Throughout] Respiratory 20 Rate Respiratory 18 Rate [ Throughout] Blood Pressure 108/45 O2 Sat by Pulse 94 94 Oximetry 06/30/18 06/30/18 06/30/18 11:00 12:00 13:00 Temperature 97.9 F Pulse Rate 106 H 111 H 103 H Pulse Rate [ 105 H From Monitor] Pulse Rate [ Throughout] Respiratory 27 H 16 21 Rate Respiratory Rate [ Throughout] Blood Pressure 115/67 121/74 108/73 O2 Sat by Pulse 92 95 95 Oximetry 06/30/18 06/30/18 06/30/18 16:00 16:56 16:58 Temperature 98.0 F Pulse Rate 102 H 104 H Pulse Rate [ From Monitor] Pulse Rate [ Throughout] Respiratory Rate Respiratory Rate [ Throughout] Blood Pressure 130/80 130/80 O2 Sat by Pulse Oximetry - General Appearance General appearance: well-developed, appears stated age, chronically ill EENT: ATNC, PERRL, mucous membranes moist Neck: no JVD Respiratory: Present: Clear to Ascultation Cardiology: regular, S1S2 Gastrointestinal: normoactive bowel sounds Integumentary: no rash, other (+ edema b/l LE ) Neurologic: no focal deficit, strength 5/5, CN 3-12 intact Psychiatric: mood/affect appropriate, cooperative - Lab 06/30/18 04:45 06/30/18 04:45 Most recent lab results Calcium 8.0 mg/dL (8.4-10.2) L 06/30/18 04:45 Phosphorus 2.50 mg/dL (2.5-4.5) 06/20/18 07:31 Magnesium 1.70 mg/dL (1.7-2.3) 06/29/18 06:40 Urine Creatinine 61.7 mg/dL (0.1-20.0) H 06/19/18 Unknown Urine Total Protein 32 mg/dL (5-11.8) H 06/19/18 Unknown Medications & Allergies - Medications Allergies/Adverse Reactions: Allergies Penicillins Allergy (Verified 09/04/17 14:11) Unknown aspirin Adverse Reaction (Verified 09/04/17 14:10) Nausea NSAIDS (Non-Steroidal Anti-Inflamma Adverse Reaction (Verified 09/04/17 14:10) Nausea Pork/Porcine Containing Products Adverse Reaction (Verified 11/01/17 09:04) Nausea Home Medications: Home Medications Medication Instructions Recorded Confirmed Last Taken Type Apixaban [Eliquis] 5 mg PO DAILY 09/06/17 10/31/17 Unknown History AtorvaSTATin [Lipitor] 20 mg PO DAILY 09/06/17 10/31/17 Unknown History Loperamide HCl [Loperamide] 2 mg PO DAILY 09/06/17 10/31/17 Unknown History Sertraline [Zoloft] 50 mg PO DAILY 09/06/17 10/31/17 10/17/17 10:00 History Sucralfate [Carafate] 1 gm PO DAILY 09/06/17 10/31/17 Unknown History Carvedilol [Coreg] 12.5 mg PO BID #60 tablet 09/08/17 10/31/17 Unknown Rx Lisinopril [Zestril TAB] 5 mg PO QDAY #30 tablet 09/08/17 10/31/17 Unknown Rx Doxycycline [Vibramycin CAP] 100 mg PO Q12HR #10 capsule 11/02/17 Unknown Rx Furosemide [Lasix] 20 mg PO QDAY #30 tablet 11/02/17 Unknown Rx Active Medications: Generic Name Dose Route Start Last Admin Trade Name Freq PRN Reason Stop Dose Admin Acetaminophen 650 mg 06/17/18 03:33 06/26/18 09:09 Tylenol PO 650 mg Q4H PRN Administration Fever >101 Albuterol/Ipratropium 1 ampul 06/27/18 14:00 06/30/18 16:13 Duoneb *Not For Prn Use* IH Not Given TIDRT JEANETTE Apixaban 5 mg 06/20/18 16:00 06/30/18 11:00 Eliquis PO 5 mg Q12HR JEANETTE Administration Protocol Atorvastatin Calcium 20 mg 06/19/18 22:00 06/30/18 03:46 Lipitor PO Not Given QHS JEANETTE Digoxin 0.125 mg 06/24/18 17:00 06/30/18 16:58 Lanoxin PO 0.125 mg DAILY@1700 JEANETTE Administration Famotidine 20 mg 06/27/18 12:00 06/30/18 11:00 Pepcid PO 20 mg DAILY JEANETTE Administration Dobutamine HCl/Dextrose 500 mg in 250 mls @ 5.918 mls/hr 06/27/18 13:00 06/30/18 11:49 Dobutrex Drip 500mg/D5w 250ml IV 5 mcg/kg/min DIRECT JEANETTE 11.835 mls/hr Administration 2.5 MCG/KG/MIN Potassium Chloride 10 meq in 100 mls @ 100 mls/hr 06/30/18 15:00 06/30/18 16:59 Kcl 10meq/100ml IV 06/30/18 18:59 100 mls/hr Q1H JEANETTE Administration Dextrose/Sodium Chloride 1,000 mls @ 42 mls/hr 06/30/18 17:00 06/30/18 16:59 D5ns IV 42 mls/hr DIRECT JEANETTE Administration Lactulose 20 gm 06/25/18 12:00 06/30/18 17:01 Cephulac PO Not Given Q6HR JEANETTE Metoprolol Tartrate 25 mg 06/25/18 09:00 06/30/18 16:56 Lopressor PO 25 mg Q8H JEANETTE Administration Ondansetron HCl 4 mg 06/17/18 03:24 Zofran IV Q8H PRN Nausea And Vomiting Sertraline HCl 50 mg 06/24/18 10:00 06/30/18 11:00 Zoloft PO 50 mg DAILY JEANETTE Administration
[2018-07-01] MEDS: TYLENOL PO PRN (00:47)
[2018-07-01] MEDS: LOPRESSOR PO SCH ×4 (00:49→09:46)
[2018-07-01] MEDS: CEPHULAC PO SCH ×4 (00:50→12:34)
[2018-07-01] MEDS: DUONEB *Not for PRN Use IH SCH ×4 (02:17→21:24)
[2018-07-01 05:36] LABS: Hematocrit 37.2 % (30.3-42.9); Mean Corpuscular HGB Conc 32 % (30-34); Mean Corpuscular Volume 77 fl (79-97); Red Blood Count 4.81 M/mm3 (3.65-5.03); Red Cell Distribution Width 19.3 % (13.2-15.2)
[2018-07-01 05:45] LABS: Platelet Count 77 K/mm3 (140-440)
[2018-07-01 06:04] LABS: Alanine Aminotransferase 60 units/L (7-56); BUN/Creatinine Ratio 20; Blood Urea Nitrogen 14 mg/dL (7-17); Calcium 8.1 mg/dL (8.4-10.2); Hemolysis Index 6
[2018-07-01] MEDS: KCL 10MEQ/100ML 10 MEQ/100 ML BAG IV SCH ×2 (07:01→08:21)
[2018-07-01] MEDS: ELIQUIS PO SCH ×3 (09:43→22:14)
[2018-07-01] MEDS: ZOLOFT PO SCH (09:44)
[2018-07-01] MEDS: PEPCID PO SCH (09:44)
--- NOTE | 2018-07-01 10:28 | Progress Note ---
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 Bili Likely congestive hepatopathy, Severe protein calorie malnutrition Hypokalemia -ABGs and CXR prn -Anticoagulated on Eliquis -Supplemental oxygen to keep O2 sats>90% -Accuchecks with glycemic control Target blood glucose of 140-180mg/dl -Cardioprotective measures, heart failure measures -Psychosis management per Psych services -PT/OT as tolerated -Aspiration precautions -Glycemic control -Influenza and pneumonia vaccinations per protocol -Continue all other care per primary service Discharge planning CONDITION: FAIR PROGNOSIS: POOR FCI CODE STATUS: FULL CODE Subjective Date of service: 07/01/18 Principal diagnosis: altered mental status, psychosis, chronic systolic heart failure, Interval history: Patient is seen today for: s/p Cardiopulmonary arrest; acute hypoxemic respiraotry failure; Cardiomyopathy; Psychosis Seen and examined at bedside; 24-hour events reviewed; nursing and respiratory care staff consulted; Vitals, labs, medications, chart reviewed; no adverse overnight events reported to me; On going agitation, remains in restrains.. Intermittent confusion. Sitting up in bed having breakfast-staff assisting her with her meal Denies any chest pain, no shortness of breath, on oxygen at 2LNC Objective Vital Signs - 12hr 06/30/18 07/01/18 07/01/18 23:00 00:00 00:49 Temperature 98.5 F Pulse Rate 100 H 105 H 105 H Pulse Rate [ 105 H From Monitor] Respiratory 18 19 Rate Blood Pressure 110/80 121/76 121/76 O2 Sat by Pulse 95 Oximetry 07/01/18 07/01/18 07/01/18 01:00 02:00 02:09 Temperature Pulse Rate 104 H 96 H 90 Pulse Rate [ From Monitor] Respiratory 16 17 18 Rate Blood Pressure 122/86 109/67 109/67 O2 Sat by Pulse 92 99 Oximetry 07/01/18 07/01/18 07/01/18 03:00 04:00 05:00 Temperature 97.6 F Pulse Rate 86 83 77 Pulse Rate [ 89 From Monitor] Respiratory 17 16 14 Rate Blood Pressure 111/52 111/52 126/66 O2 Sat by Pulse 93 100 97 Oximetry 07/01/18 07/01/18 07/01/18 06:00 07:00 09:43 Temperature Pulse Rate 89 88 85 Pulse Rate [ From Monitor] Respiratory 14 12 Rate Blood Pressure 116/55 116/55 142/70 O2 Sat by Pulse 100 99 Oximetry 07/01/18 07/01/18 09:45 09:46 Temperature Pulse Rate 85 83 Pulse Rate [ From Monitor] Respiratory Rate Blood Pressure 142/70 142/70 O2 Sat by Pulse Oximetry Constitutional: no acute distress, alert, other (elderly looking AAF normocep halic and atraumatic with normal resp effort at rest) Eyes: non-icteric, other (Pupils 4mm, sluggichly reacting to light) ENT: oropharynx dry, other (ETT 23 cm FELIX) Neck: supple, no lymphadenopathy, no JVD, other (no thyromegaly) Effort: normal Ascultation: Bilateral: diminished breath sounds, rales Percussion: Bilateral: not dull Cardiovascular: irregular rhythm, other (S1,S2,) Gastrointestinal: normoactive bowel sounds, soft, non-tender, non-distended Integumentary: rash (exematoid rash to upper chest) Extremities: no cyanosis, no edema, pulses normal, no ischemia or petechiae Neurologic: normal mental status, non-focal exam (grossly), pupils equal and round, motor strength normal and Psychiatric: anxious CBC and BMP: 07/02/18 05:23 07/02/18 05:23 ABG, PT/INR, D-dimer: ABG POC ABG pH 7.552 (7.35-7.45) H 06/28/18 10:53 POC ABG pCO2 40.8 (35-45) 06/28/18 10:53 POC ABG pO2 83 (80-105) 06/28/18 10:53 POC ABG HCO3 35.9 (22-26 mml/L) 06/28/18 10:53 POC ABG Total CO2 37 (23-27mmol/L) 06/28/18 10:53 POC ABG O2 Sat 97 06/28/18 10:53 Abnormal lab findings: Abnormal Labs 06/16/18 06/16/18 06/16/18 21:05 21:43 21:43 WBC RBC Hgb Hct MCV MCH RDW Plt Count Lymph % (Auto) Wood % (Auto) Lymph # Wood # Seg Neutrophils % Seg Neuts % (Manual) Lymphocytes % (Manual) Seg Neutrophils # Seg Neutrophils # Man Lymphocytes # (Manual) Monocytes # (Manual) POC ABG pH POC ABG pCO2 POC ABG pO2 Sodium 129 L Potassium Chloride 95.3 L Carbon Dioxide 14 L BUN 23 H Creatinine Glucose 146 H POC Glucose < 40 L Lactic Acid Uric Acid Calcium Magnesium Total Bilirubin Direct Bilirubin AST ALT Alkaline Phosphatase Ammonia C-Reactive Protein Total Protein Albumin Vitamin B1 Vitamin B12 25-OH Vitamin D Total Free T4 T3 (GILSON) Urine Creatinine Urine Total Protein Acetaminophen < 5.0 L 06/16/18 06/16/18 06/16/18 21:43 21:43 22:27 WBC RBC 5.70 H Hgb Hct 44.6 H MCV 78 L MCH 25 L RDW 18.7 H Plt Count Lymph % (Auto) Wood % (Auto) Lymph # Wood # Seg Neutrophils % 78.8 H Seg Neuts % (Manual) Lymphocytes % (Manual) Seg Neutrophils # Seg Neutrophils # Man Lymphocytes # (Manual) Monocytes # (Manual) POC ABG pH POC ABG pCO2 POC ABG pO2 Sodium Potassium Chloride Carbon Dioxide BUN Creatinine Glucose POC Glucose 121 H Lactic Acid Uric Acid Calcium Magnesium Total Bilirubin Direct Bilirubin AST ALT Alkaline Phosphatase Ammonia C-Reactive Protein Total Protein Albumin Vitamin B1 Vitamin B12 25-OH Vitamin D Total Free T4 1.87 H T3 (GILSON) Urine Creatinine Urine Total Protein Acetaminophen 06/16/18 06/16/18 06/17/18 22:33 23:43 03:56 WBC RBC Hgb Hct MCV MCH RDW Plt Count Lymph % (Auto) Wood % (Auto) Lymph # Wood # Seg Neutrophils % Seg Neuts % (Manual) Lymphocytes % (Manual) Seg Neutrophils # Seg Neutrophils # Man Lymphocytes # (Manual) Monocytes # (Manual) POC ABG pH POC ABG pCO2 POC ABG pO2 Sodium Potassium Chloride Carbon Dioxide BUN Creatinine Glucose POC Glucose Lactic Acid 4.40 H* 4.30 H* 3.10 H* Uric Acid Calcium Magnesium Total Bilirubin Direct Bilirubin AST ALT Alkaline Phosphatase Ammonia C-Reactive Protein Total Protein Albumin Vitamin B1 Vitamin B12 25-OH Vitamin D Total Free T4 T3 (GILSON) Urine Creatinine Urine Total Protein Acetaminophen 06/17/18 06/17/18 06/17/18 08:35 08:40 11:00 WBC RBC Hgb Hct MCV MCH RDW Plt Count Lymph % (Auto) Wood % (Auto) Lymph # Wood # Seg Neutrophils % Seg Neuts % (Manual) Lymphocytes % (Manual) Seg Neutrophils # Seg Neutrophils # Man Lymphocytes # (Manual) Monocytes # (Manual) POC ABG pH POC ABG pCO2 POC ABG pO2 Sodium Potassium Chloride Carbon Dioxide BUN Creatinine Glucose POC Glucose 56 L Lactic Acid 2.70 H* 3.40 H* Uric Acid Calcium Magnesium Total Bilirubin Direct Bilirubin AST ALT Alkaline Phosphatase Ammonia C-Reactive Protein Total Protein Albumin Vitamin B1 Vitamin B12 25-OH Vitamin D Total Free T4 T3 (GILSON) Urine Creatinine Urine Total Protein Acetaminophen 06/17/18 06/17/18 06/17/18 11:00 11:00 11:00 WBC 11.9 H RBC 5.25 H Hgb Hct MCV MCH 25 L RDW 18.6 H Plt Count Lymph % (Auto) Wood % (Auto) Lymph # Wood # Seg Neutrophils % Seg Neuts % (Manual) Lymphocytes % (Manual) Seg Neutrophils # Seg Neutrophils # Man Lymphocytes # (Manual) Monocytes # (Manual) POC ABG pH POC ABG pCO2 POC ABG pO2 Sodium 128 L Potassium Chloride 95.6 L Carbon Dioxide 15 L BUN 22 H Creatinine Glucose 110 H POC Glucose Lactic Acid Uric Acid Calcium 8.3 L Magnesium Total Bilirubin Direct Bilirubin 1.6 H AST 66 H ALT Alkaline Phosphatase 178 H Ammonia C-Reactive Protein Total Protein 4.7 L Albumin 2.4 L Vitamin B1 Vitamin B12 25-OH Vitamin D Total Free T4 T3 (GILSON) Urine Creatinine Urine Total Protein Acetaminophen 06/17/18 06/17/18 06/17/18 15:08 15:08 23:00 WBC RBC Hgb Hct MCV MCH RDW Plt Count Lymph % (Auto) Wood % (Auto) Lymph # Wood # Seg Neutrophils % Seg Neuts % (Manual) Lymphocytes % (Manual) Seg Neutrophils # Seg Neutrophils # Man Lymphocytes # (Manual) Monocytes # (Manual) POC ABG pH POC ABG pCO2 POC ABG pO2 Sodium Potassium Chloride Carbon Dioxide BUN Creatinine Glucose POC Glucose Lactic Acid 4.00 H* Uric Acid Calcium Magnesium Total Bilirubin Direct Bilirubin AST ALT Alkaline Phosphatase Ammonia 10.0 L C-Reactive Protein Total Protein Albumin Vitamin B1 Vitamin B12 25-OH Vitamin D Total Free T4 1.53 H T3 (GILSON) Urine Creatinine Urine Total Protein Acetaminophen 06/18/18 06/18/18 06/18/18 08:59 08:59 12:49 WBC RBC 5.29 H Hgb Hct MCV 78 L MCH 25 L RDW 18.4 H Plt Count Lymph % (Auto) Wood % (Auto) Lymph # Wood # Seg Neutrophils % Seg Neuts % (Manual) Lymphocytes % (Manual) Seg Neutrophils # Seg Neutrophils # Man Lymphocytes # (Manual) Monocytes # (Manual) POC ABG pH POC ABG pCO2 POC ABG pO2 Sodium 128 L Potassium 5.9 H D Chloride 96.1 L Carbon Dioxide 20 L BUN 22 H Creatinine Glucose POC Glucose 60 L Lactic Acid Uric Acid Calcium Magnesium Total Bilirubin Direct Bilirubin AST ALT Alkaline Phosphatase Ammonia C-Reactive Protein Total Protein Albumin Vitamin B1 Vitamin B12 25-OH Vitamin D Total Free T4 T3 (GILSON) Urine Creatinine Urine Total Protein Acetaminophen 06/18/18 06/19/18 06/19/18 21:28 12:14 13:23 WBC RBC Hgb Hct MCV MCH RDW Plt Count Lymph % (Auto) Wood % (Auto) Lymph # Wood # Seg Neutrophils % Seg Neuts % (Manual) Lymphocytes % (Manual) Seg Neutrophils # Seg Neutrophils # Man Lymphocytes # (Manual) Monocytes # (Manual) POC ABG pH POC ABG pCO2 POC ABG pO2 Sodium 122 L Potassium 5.4 H Chloride 95.0 L Carbon Dioxide 13 L D BUN 21 H Creatinine Glucose 119 H POC Glucose 114 H Lactic Acid Uric Acid Calcium 8.3 L Magnesium Total Bilirubin Direct Bilirubin AST ALT Alkaline Phosphatase Ammonia C-Reactive Protein Total Protein Albumin Vitamin B1 Vitamin B12 25-OH Vitamin D Total Free T4 T3 (GILSON) Urine Creatinine Urine Total Protein Acetaminophen 06/19/18 06/19/18 06/19/18 14:47 16:38 22:42 WBC RBC 5.51 H Hgb Hct 45.3 H MCV MCH 25 L RDW 18.6 H Plt Count Lymph % (Auto) Wood % (Auto) Lymph # Wood # Seg Neutrophils % Seg Neuts % (Manual) Lymphocytes % (Manual) Seg Neutrophils # Seg Neutrophils # Man Lymphocytes # (Manual) Monocytes # (Manual) POC ABG pH POC ABG pCO2 POC ABG pO2 Sodium Potassium Chloride Carbon Dioxide BUN Creatinine Glucose POC Glucose 108 H 49 L Lactic Acid Uric Acid Calcium Magnesium Total Bilirubin Direct Bilirubin AST ALT Alkaline Phosphatase Ammonia C-Reactive Protein Total Protein Albumin Vitamin B1 Vitamin B12 25-OH Vitamin D Total Free T4 T3 (GILSON) Urine Creatinine Urine Total Protein Acetaminophen 06/19/18 06/20/18 06/20/18 Unknown 07:31 16:51 WBC RBC Hgb Hct MCV MCH RDW Plt Count Lymph % (Auto) Wood % (Auto) Lymph # Wood # Seg Neutrophils % Seg Neuts % (Manual) Lymphocytes % (Manual) Seg Neutrophils # Seg Neutrophils # Man Lymphocytes # (Manual) Monocytes # (Manual) POC ABG pH POC ABG pCO2 POC ABG pO2 Sodium 132 L D Potassium Chloride 94.3 L Carbon Dioxide BUN 20 H Creatinine Glucose POC Glucose Lactic Acid Uric Acid 8.6 H Calcium Magnesium 1.30 L Total Bilirubin Direct Bilirubin AST ALT Alkaline Phosphatase Ammonia C-Reactive Protein Total Protein Albumin Vitamin B1 Vitamin B12 25-OH Vitamin D Total Free T4 T3 (GILSON) 58 L Urine Creatinine 61.7 H Urine Total Protein 32 H Acetaminophen 06/20/18 06/20/18 06/21/18 20:53 20:53 16:27 WBC RBC Hgb Hct MCV MCH RDW Plt Count Lymph % (Auto) Wood % (Auto) Lymph # Wood # Seg Neutrophils % Seg Neuts % (Manual) Lymphocytes % (Manual) Seg Neutrophils # Seg Neutrophils # Man Lymphocytes # (Manual) Monocytes # (Manual) POC ABG pH POC ABG pCO2 POC ABG pO2 Sodium Potassium Chloride Carbon Dioxide BUN Creatinine Glucose POC Glucose Lactic Acid Uric Acid 9.2 H Calcium Magnesium Total Bilirubin Direct Bilirubin AST ALT Alkaline Phosphatase Ammonia C-Reactive Protein Total Protein Albumin Vitamin B1 Vitamin B12 1598 H 25-OH Vitamin D Total 10 L Free T4 T3 (GILSON) Urine Creatinine Urine Total Protein Acetaminophen 06/21/18 06/21/18 06/21/18 16:27 16:27 16:27 WBC RBC 5.26 H Hgb Hct MCV 77 L MCH 26 L RDW 17.7 H Plt Count Lymph % (Auto) Wood % (Auto) Lymph # Wood # Seg Neutrophils % Seg Neuts % (Manual) Lymphocytes % (Manual) Seg Neutrophils # Seg Neutrophils # Man Lymphocytes # (Manual) Monocytes # (Manual) POC ABG pH POC ABG pCO2 POC ABG pO2 Sodium 130 L Potassium Chloride 95.6 L Carbon Dioxide BUN 24 H Creatinine Glucose POC Glucose Lactic Acid Uric Acid Calcium Magnesium Total Bilirubin Direct Bilirubin AST ALT Alkaline Phosphatase Ammonia C-Reactive Protein Total Protein Albumin Vitamin B1 <6 L Vitamin B12 25-OH Vitamin D Total Free T4 T3 (GILSON) Urine Creatinine Urine Total Protein Acetaminophen 03/19/19 03/20/19 03/21/19 21:44 21:42 14:54 WBC RBC 5.07 H Hgb Hct MCV 78 L MCH 25 L RDW 18.5 H Plt Count Lymph % (Auto) Wood % (Auto) 12.3 H Lymph # 1.0 L Wood # Seg Neutrophils % Seg Neuts % (Manual) Lymphocytes % (Manual) Seg Neutrophils # Seg Neutrophils # Man Lymphocytes # (Manual) Monocytes # (Manual) POC ABG pH POC ABG pCO2 POC ABG pO2 Sodium Potassium Chloride Carbon Dioxide BUN Creatinine Glucose POC Glucose 126 H 114 H Lactic Acid Uric Acid Calcium Magnesium Total Bilirubin Direct Bilirubin AST ALT Alkaline Phosphatase Ammonia C-Reactive Protein Total Protein Albumin Vitamin B1 Vitamin B12 25-OH Vitamin D Total Free T4 T3 (GILSON) Urine Creatinine Urine Total Protein Acetaminophen 06/23/18 06/25/18 06/25/18 14:54 00:00 00:00 WBC 3.6 L RBC 5.31 H Hgb Hct MCV 77 L MCH 26 L RDW 19.0 H Plt Count Lymph % (Auto) Wood % (Auto) 10.2 H Lymph # Wood # Seg Neutrophils % Seg Neuts % (Manual) Lymphocytes % (Manual) Seg Neutrophils # Seg Neutrophils # Man Lymphocytes # (Manual) Monocytes # (Manual) POC ABG pH POC ABG pCO2 POC ABG pO2 Sodium 132 L 131 L Potassium 3.5 L Chloride 91.5 L 93.5 L Carbon Dioxide BUN 19 H 21 H Creatinine Glucose POC Glucose Lactic Acid Uric Acid Calcium 8.1 L Magnesium Total Bilirubin 2.80 H 2.70 H Direct Bilirubin AST 52 H 81 H ALT Alkaline Phosphatase 231 H 243 H Ammonia C-Reactive Protein Total Protein 5.5 L 5.5 L Albumin 2.8 L 2.7 L Vitamin B1 Vitamin B12 25-OH Vitamin D Total Free T4 T3 (GILSON) Urine Creatinine Urine Total Protein Acetaminophen 06/25/18 06/25/18 06/25/18 16:02 16:02 16:18 WBC 3.9 L RBC 5.78 H Hgb 14.6 H Hct 45.4 H MCV MCH 25 L RDW 19.2 H Plt Count Lymph % (Auto) Wood % (Auto) Lymph # Wood # Seg Neutrophils % Seg Neuts % (Manual) Lymphocytes % (Manual) Seg Neutrophils # Seg Neutrophils # Man Lymphocytes # (Manual) 1.1 L Monocytes # (Manual) POC ABG pH POC ABG pCO2 POC ABG pO2 Sodium 131 L Potassium Chloride 90.0 L Carbon Dioxide BUN 25 H Creatinine 1.4 H Glucose POC Glucose Lactic Acid 4.00 H* Uric Acid Calcium Magnesium Total Bilirubin 3.10 H Direct Bilirubin AST 68 H ALT Alkaline Phosphatase 296 H Ammonia C-Reactive Protein Total Protein 6.1 L Albumin 3.3 L Vitamin B1 Vitamin B12 25-OH Vitamin D Total Free T4 T3 (GILSON) Urine Creatinine Urine Total Protein Acetaminophen 06/25/18 06/26/18 06/26/18 21:06 11:33 11:37 WBC RBC Hgb Hct MCV MCH 26 L RDW 19.2 H Plt Count 139 L Lymph % (Auto) Wood % (Auto) Lymph # Wood # Seg Neutrophils % Seg Neuts % (Manual) 85.0 H Lymphocytes % (Manual) 6.0 L Seg Neutrophils # Seg Neutrophils # Man 8.0 H Lymphocytes # (Manual) 0.6 L Monocytes # (Manual) POC ABG pH POC ABG pCO2 POC ABG pO2 Sodium Potassium Chloride Carbon Dioxide BUN Creatinine Glucose POC Glucose < 40 L Lactic Acid 6.40 H* Uric Acid Calcium Magnesium Total Bilirubin Direct Bilirubin AST ALT Alkaline Phosphatase Ammonia C-Reactive Protein Total Protein Albumin Vitamin B1 Vitamin B12 25-OH Vitamin D Total Free T4 T3 (GILSON) Urine Creatinine Urine Total Protein Acetaminophen 06/26/18 06/26/18 06/26/18 11:37 11:51 11:59 WBC RBC Hgb Hct MCV MCH RDW Plt Count Lymph % (Auto) Wood % (Auto) Lymph # Wood # Seg Neutrophils % Seg Neuts % (Manual) Lymphocytes % (Manual) Seg Neutrophils # Seg Neutrophils # Man Lymphocytes # (Manual) Monocytes # (Manual) POC ABG pH 7.029 L POC ABG pCO2 POC ABG pO2 73 L Sodium 129 L Potassium Chloride 87.0 L Carbon Dioxide 11 L D BUN 31 H Creatinine 1.9 H Glucose 206 H POC Glucose 253 H Lactic Acid Uric Acid Calcium 7.9 L Magnesium Total Bilirubin 2.90 H Direct Bilirubin AST 98 H ALT Alkaline Phosphatase 196 H Ammonia C-Reactive Protein Total Protein 4.3 L D Albumin 2.2 L Vitamin B1 Vitamin B12 25-OH Vitamin D Total Free T4 T3 (GILSON) Urine Creatinine Urine Total Protein Acetaminophen 06/26/18 06/26/18 06/26/18 14:54 15:08 15:10 WBC 14.2 H RBC 5.66 H Hgb 14.5 H Hct 45.6 H D MCV MCH 26 L RDW 19.4 H Plt Count Lymph % (Auto) Wood % (Auto) Lymph # Wood # Seg Neutrophils % Seg Neuts % (Manual) 88.0 H Lymphocytes % (Manual) 5.0 L Seg Neutrophils # Seg Neutrophils # Man 12.5 H Lymphocytes # (Manual) 0.7 L Monocytes # (Manual) 0.9 H POC ABG pH POC ABG pCO2 POC ABG pO2 Sodium Potassium Chloride Carbon Dioxide BUN Creatinine Glucose POC Glucose 172 H Lactic Acid 11.90 H* Uric Acid Calcium Magnesium Total Bilirubin Direct Bilirubin AST ALT Alkaline Phosphatase Ammonia C-Reactive Protein Total Protein Albumin Vitamin B1 Vitamin B12 25-OH Vitamin D Total Free T4 T3 (GILSON) Urine Creatinine Urine Total Protein Acetaminophen 06/26/18 06/26/18 06/26/18 16:01 18:47 20:55 WBC RBC Hgb Hct MCV MCH RDW Plt Count Lymph % (Auto) Wood % (Auto) Lymph # Wood # Seg Neutrophils % Seg Neuts % (Manual) Lymphocytes % (Manual) Seg Neutrophils # Seg Neutrophils # Man Lymphocytes # (Manual) Monocytes # (Manual) POC ABG pH POC ABG pCO2 34.0 L POC ABG pO2 Sodium Potassium Chloride Carbon Dioxide BUN Creatinine Glucose POC Glucose 183 H 131 H Lactic Acid Uric Acid Calcium Magnesium Total Bilirubin Direct Bilirubin AST ALT Alkaline Phosphatase Ammonia C-Reactive Protein Total Protein Albumin Vitamin B1 Vitamin B12 25-OH Vitamin D Total Free T4 T3 (GILSON) Urine Creatinine Urine Total Protein Acetaminophen 06/26/18 06/27/18 06/27/18 21:55 09:29 09:29 WBC RBC Hgb Hct MCV MCH RDW Plt Count Lymph % (Auto) Wood % (Auto) Lymph # Wood # Seg Neutrophils % Seg Neuts % (Manual) Lymphocytes % (Manual) Seg Neutrophils # Seg Neutrophils # Man Lymphocytes # (Manual) Monocytes # (Manual) POC ABG pH POC ABG pCO2 POC ABG pO2 Sodium 135 L 135 L Potassium 3.5 L Chloride 91.7 L 91.2 L Carbon Dioxide BUN 35 H 37 H Creatinine 2.3 H 2.1 H Glucose 147 H 104 H POC Glucose Lactic Acid Uric Acid Calcium 8.3 L 8.1 L Magnesium Total Bilirubin 3.50 H Direct Bilirubin AST 218 H ALT 57 H Alkaline Phosphatase 197 H Ammonia C-Reactive Protein Total Protein 5.0 L Albumin 2.3 L Vitamin B1 Vitamin B12 25-OH Vitamin D Total Free T4 1.78 H T3 (GILSON) Urine Creatinine Urine Total Protein Acetaminophen 06/27/18 06/27/18 06/27/18 09:29 09:29 10:00 WBC 16.3 H RBC 5.44 H Hgb Hct MCV 76 L MCH 25 L RDW 18.3 H Plt Count Lymph % (Auto) Wood % (Auto) Lymph # Wood # Seg Neutrophils % Seg Neuts % (Manual) 91.0 H Lymphocytes % (Manual) 3.0 L Seg Neutrophils # Seg Neutrophils # Man 14.8 H Lymphocytes # (Manual) 0.5 L Monocytes # (Manual) 1.0 H POC ABG pH POC ABG pCO2 POC ABG pO2 Sodium Potassium Chloride Carbon Dioxide BUN Creatinine Glucose POC Glucose 106 H Lactic Acid 4.00 H* Uric Acid Calcium Magnesium Total Bilirubin Direct Bilirubin AST ALT Alkaline Phosphatase Ammonia C-Reactive Protein Total Protein Albumin Vitamin B1 Vitamin B12 25-OH Vitamin D Total Free T4 T3 (GILSON) Urine Creatinine Urine Total Protein Acetaminophen 06/27/18 06/27/18 06/27/18 11:51 12:50 13:39 WBC RBC Hgb Hct MCV MCH RDW Plt Count Lymph % (Auto) Wood % (Auto) Lymph # Wood # Seg Neutrophils % Seg Neuts % (Manual) Lymphocytes % (Manual) Seg Neutrophils # Seg Neutrophils # Man Lymphocytes # (Manual) Monocytes # (Manual) POC ABG pH 7.584 H POC ABG pCO2 32.8 L POC ABG pO2 109 H Sodium Potassium Chloride Carbon Dioxide BUN Creatinine Glucose POC Glucose 112 H Lactic Acid 3.20 H* Uric Acid Calcium Magnesium Total Bilirubin Direct Bilirubin AST ALT Alkaline Phosphatase Ammonia C-Reactive Protein Total Protein Albumin Vitamin B1 Vitamin B12 25-OH Vitamin D Total Free T4 T3 (GILSON) Urine Creatinine Urine Total Protein Acetaminophen 06/27/18 06/27/18 06/27/18 19:31 21:50 23:10 WBC RBC Hgb Hct MCV MCH RDW Plt Count Lymph % (Auto) Wood % (Auto) Lymph # Wood # Seg Neutrophils % Seg Neuts % (Manual) Lymphocytes % (Manual) Seg Neutrophils # Seg Neutrophils # Man Lymphocytes # (Manual) Monocytes # (Manual) POC ABG pH POC ABG pCO2 POC ABG pO2 Sodium Potassium Chloride Carbon Dioxide BUN Creatinine Glucose POC Glucose Lactic Acid 2.40 H* 2.30 H* 2.30 H* Uric Acid Calcium Magnesium Total Bilirubin Direct Bilirubin AST ALT Alkaline Phosphatase Ammonia C-Reactive Protein Total Protein Albumin Vitamin B1 Vitamin B12 25-OH Vitamin D Total Free T4 T3 (GILSON) Urine Creatinine Urine Total Protein Acetaminophen 06/28/18 06/28/18 06/28/18 02:35 05:00 05:00 WBC RBC Hgb Hct MCV MCH RDW Plt Count Lymph % (Auto) Wood % (Auto) Lymph # Wood # Seg Neutrophils % Seg Neuts % (Manual) Lymphocytes % (Manual) Seg Neutrophils # Seg Neutrophils # Man Lymphocytes # (Manual) Monocytes # (Manual) POC ABG pH POC ABG pCO2 POC ABG pO2 Sodium 134 L Potassium 2.6 L* D Chloride 92.3 L Carbon Dioxide 32 H BUN 34 H Creatinine 1.8 H Glucose 127 H POC Glucose Lactic Acid 2.20 H* 2.30 H* Uric Acid Calcium 7.5 L Magnesium Total Bilirubin 3.50 H Direct Bilirubin AST 226 H ALT 60 H Alkaline Phosphatase 172 H Ammonia C-Reactive Protein Total Protein 4.2 L Albumin 2.0 L Vitamin B1 Vitamin B12 25-OH Vitamin D Total Free T4 T3 (GILSON) Urine Creatinine Urine Total Protein Acetaminophen 06/28/18 06/28/18 06/28/18 05:00 08:30 08:30 WBC 15.7 H RBC Hgb Hct MCV 77 L MCH 25 L RDW 18.5 H Plt Count 112 L Lymph % (Auto) 6.0 L Wood % (Auto) 10.0 H Lymph # 0.9 L Wood # 1.6 H Seg Neutrophils % 83.4 H Seg Neuts % (Manual) Lymphocytes % (Manual) Seg Neutrophils # 13.1 H Seg Neutrophils # Man Lymphocytes # (Manual) Monocytes # (Manual) POC ABG pH POC ABG pCO2 POC ABG pO2 Sodium Potassium Chloride Carbon Dioxide BUN Creatinine Glucose POC Glucose Lactic Acid 2.40 H* Uric Acid Calcium Magnesium Total Bilirubin Direct Bilirubin AST ALT Alkaline Phosphatase Ammonia C-Reactive Protein 4.80 H Total Protein Albumin Vitamin B1 Vitamin B12 25-OH Vitamin D Total Free T4 T3 (GILSON) Urine Creatinine Urine Total Protein Acetaminophen 06/28/18 06/28/18 06/28/18 10:53 11:23 18:35 WBC RBC Hgb Hct MCV MCH RDW Plt Count Lymph % (Auto) Wood % (Auto) Lymph # Wood # Seg Neutrophils % Seg Neuts % (Manual) Lymphocytes % (Manual) Seg Neutrophils # Seg Neutrophils # Man Lymphocytes # (Manual) Monocytes # (Manual) POC ABG pH 7.552 H POC ABG pCO2 POC ABG pO2 Sodium Potassium 3.1 L Chloride Carbon Dioxide BUN Creatinine Glucose POC Glucose 122 H Lactic Acid Uric Acid Calcium Magnesium Total Bilirubin Direct Bilirubin AST ALT Alkaline Phosphatase Ammonia C-Reactive Protein Total Protein Albumin Vitamin B1 Vitamin B12 25-OH Vitamin D Total Free T4 T3 (GILSON) Urine Creatinine Urine Total Protein Acetaminophen 06/29/18 06/29/18 06/29/18 06:40 06:40 19:44 WBC 14.6 H RBC Hgb Hct MCV 77 L MCH 25 L RDW 19.3 H Plt Count 88 L Lymph % (Auto) Wood % (Auto) Lymph # Wood # Seg Neutrophils % Seg Neuts % (Manual) Lymphocytes % (Manual) Seg Neutrophils # Seg Neutrophils # Man Lymphocytes # (Manual) Monocytes # (Manual) POC ABG pH POC ABG pCO2 POC ABG pO2 Sodium Potassium 2.7 L* Chloride 95.3 L Carbon Dioxide 32 H BUN 25 H Creatinine Glucose 145 H POC Glucose 59 L Lactic Acid Uric Acid Calcium 7.9 L Magnesium Total Bilirubin 3.60 H Direct Bilirubin AST 213 H ALT Alkaline Phosphatase 176 H Ammonia C-Reactive Protein Total Protein 4.8 L Albumin 2.2 L Vitamin B1 Vitamin B12 25-OH Vitamin D Total Free T4 T3 (GILSON) Urine Creatinine Urine Total Protein Acetaminophen 06/29/18 06/30/18 06/30/18 20:43 02:37 04:45 WBC RBC Hgb Hct MCV MCH RDW Plt Count Lymph % (Auto) Wood % (Auto) Lymph # Wood # Seg Neutrophils % Seg Neuts % (Manual) Lymphocytes % (Manual) Seg Neutrophils # Seg Neutrophils # Man Lymphocytes # (Manual) Monocytes # (Manual) POC ABG pH POC ABG pCO2 POC ABG pO2 Sodium Potassium 3.1 L 2.8 L* Chloride Carbon Dioxide 31 H BUN 18 H Creatinine Glucose POC Glucose 59 L Lactic Acid Uric Acid Calcium 8.0 L Magnesium Total Bilirubin 3.70 H Direct Bilirubin AST 216 H ALT 63 H Alkaline Phosphatase 163 H Ammonia C-Reactive Protein Total Protein 4.5 L Albumin 2.1 L Vitamin B1 Vitamin B12 25-OH Vitamin D Total Free T4 T3 (GILSON) Urine Creatinine Urine Total Protein Acetaminophen 06/30/18 06/30/18 07/01/18 04:45 06:24 04:39 WBC 12.1 H RBC Hgb Hct MCV 78 L 77 L MCH 25 L 25 L RDW 19.0 H 19.3 H Plt Count 91 L 77 L Lymph % (Auto) Wood % (Auto) Lymph # Wood # Seg Neutrophils % Seg Neuts % (Manual) Lymphocytes % (Manual) Seg Neutrophils # Seg Neutrophils # Man Lymphocytes # (Manual) Monocytes # (Manual) POC ABG pH POC ABG pCO2 POC ABG pO2 Sodium Potassium Chloride Carbon Dioxide BUN Creatinine Glucose POC Glucose 63 L Lactic Acid Uric Acid Calcium Magnesium Total Bilirubin Direct Bilirubin AST ALT Alkaline Phosphatase Ammonia C-Reactive Protein Total Protein Albumin Vitamin B1 Vitamin B12 25-OH Vitamin D Total Free T4 T3 (GILSON) Urine Creatinine Urine Total Protein Acetaminophen 07/01/18 04:39 WBC RBC Hgb Hct MCV MCH RDW Plt Count Lymph % (Auto) Wood % (Auto) Lymph # Wood # Seg Neutrophils % Seg Neuts % (Manual) Lymphocytes % (Manual) Seg Neutrophils # Seg Neutrophils # Man Lymphocytes # (Manual) Monocytes # (Manual) POC ABG pH POC ABG pCO2 POC ABG pO2 Sodium Potassium 3.5 L D Chloride Carbon Dioxide BUN Creatinine Glucose 109 H POC Glucose Lactic Acid Uric Acid Calcium 8.1 L Magnesium Total Bilirubin 3.90 H Direct Bilirubin AST 163 H ALT 60 H Alkaline Phosphatase 166 H Ammonia C-Reactive Protein Total Protein 4.5 L Albumin 2.0 L Vitamin B1 Vitamin B12 25-OH Vitamin D Total Free T4 T3 (GILSON) Urine Creatinine Urine Total Protein Acetaminophen Allied health notes reviewed: nursing
--- NOTE | 2018-07-01 10:37 | Progress Note ---
Assessment and Plan S/P Cardiac arrest thought secondary to Haldol treatment s/p cardioversion Respiratory failure - extubated Chronic systolic heart failure Atrial fibrillation/flutter currently in sinus rhythm Severe depression Altered mental status Recently discharged from [facility] to home hospice care Non-ischemic cardiomyopathy Lactic acidosis Hyponatremia - chronic Elevated bilirubin and alk phosphatase - chronic secondary to congestive hepatopathy Non-compliance with medical therapy and outpatient cardiac follow up. Echo 04/2018 at [facility] showed: a 4 chamber dilated cardiomyopathy, LVEF severely decreased, 20-25%. Moderate mitral regurgitation. Severe TR. RVSP is severely elevated. Recommend: Continue medical therapy Patient is inotrope dependent. She is not a candidate for home inotropic support nor is she a candidate for LVAD or heart transplant. Patient has history of profound non-compliance Patient should be considered for hospice care Subjective Date of service: 07/01/18 Principal diagnosis: altered mental status, psychosis, chronic systolic heart failure, Interval history: Patient lying in bed, no distress. She is in restraint. SR on tele Objective Vital Signs Temp Pulse Pulse Resp BP Pulse Ox 07/01/18 09:46 83 142/70 07/01/18 09:45 85 142/70 07/01/18 09:43 85 142/70 07/01/18 07:00 88 12 116/55 99 07/01/18 06:00 89 14 116/55 100 07/01/18 05:00 77 14 126/66 97 07/01/18 04:00 97.6 F 83 89 16 111/52 100 07/01/18 03:00 86 17 111/52 93 07/01/18 02:09 90 18 109/67 99 07/01/18 02:00 96 H 17 109/67 07/01/18 01:00 104 H 16 122/86 92 07/01/18 00:49 105 H 121/76 07/01/18 00:00 98.5 F 105 H 105 H 19 121/76 95 06/30/18 23:00 100 H 18 110/80 06/30/18 22:00 98 H 18 82/56 06/30/18 21:00 101 H 22 122/80 06/30/18 20:00 983 F H 104 H 104 H 20 122/80 93 06/30/18 19:00 105 H 16 128/71 72 L 06/30/18 18:34 108 H 22 133/72 57 L 06/30/18 18:00 102 H 15 133/72 89 06/30/18 17:00 105 H 12 138/66 96 06/30/18 16:58 104 H 130/80 06/30/18 16:56 102 H 130/80 06/30/18 16:00 98.0 F 105 H 101 H 19 130/80 96 06/30/18 15:00 106 H 16 93/73 96 06/30/18 14:01 105 H 13 93/73 06/30/18 13:00 103 H 21 108/73 95 06/30/18 12:00 97.9 F 111 H 105 H 16 121/74 95 06/30/18 11:00 106 H 27 H 115/67 92 - Physical Examination General: No Apparent Distress HEENT: Positive: PERRL Neck: Positive: trachea midline Cardiac: Positive: Reg Rate and Rhythm Lungs: Positive: Normal Exam Neuro: Positive: Grossly Intact Abdomen: Positive: Unremarkable Skin: Positive: Clear Extremities: Absent: edema - Labs and Meds Cardiac Enzymes 07/01/18 Range/Units 04:39 AST 163 H (5-40) units/L CBC 07/01/18 Range/Units 04:39 WBC 10.6 (4.5-11.0) K/mm3 RBC 4.81 (3.65-5.03) M/mm3 Hgb 12.0 (10.1-14.3) gm/dl Hct 37.2 (30.3-42.9) % Plt Count 77 L (140-440) K/mm3 Comprehensive Metabolic Panel 07/01/18 Range/Units 04:39 Sodium 138 (137-145) mmol/L Potassium 3.5 L D (3.6-5.0) mmol/L Chloride 99.4 (98-107) mmol/L Carbon Dioxide 29 (22-30) mmol/L BUN 14 (7-17) mg/dL Creatinine 0.7 (0.7-1.2) mg/dL Glucose 109 H (65-100) mg/dL Calcium 8.1 L (8.4-10.2) mg/dL AST 163 H (5-40) units/L ALT 60 H (7-56) units/L Alkaline Phosphatase 166 H (35-129) units/L Total Protein 4.5 L (6.3-8.2) g/dL Albumin 2.0 L (3.9-5) g/dL - Allied health notes Allied health notes reviewed: nursing
[2018-07-01] MEDS ORDERED: D50W (25GM) Syringe IV PRN (11:50)
[2018-07-01] MEDS: DOBUTREX DRIP 500MG/D5W 250ML 500 MG/250 ML BAG IV SCH (13:19)
--- NOTE | 2018-07-01 15:11 | Progress Note ---
Assessment and Plan - Patient Problems (1) Acute kidney failure with tubular necrosis Current Visit: Yes Status: Acute Plan to address problem: acute tubular necrosis secondary to cardiac arrest, now resolved with hemodynamic stabilization and on inotropic support with dobutamine. avoid nephrotoxins, IV contrast. (2) Hyponatremia with decreased serum osmolality Current Visit: Yes Status: Acute Plan to address problem: Likely in the setting of fluid overload improved on intropic support. cont Na/fluid restriction to 1.5L/day (3) Cardiac arrest Current Visit: Yes Status: Acute Plan to address problem: s/p code blue, ACLS with ROSC, now on dobutamine gtt. follow cardiology recommendations (4) Fluid overload Current Visit: Yes Status: Chronic Qualifiers: Hypervolemia type: other Qualified Code(s): E87.79 - Other fluid overload Plan to address problem: cont fluid restrictions and appropriate low-sodium diet given her history of end-stage heart disease and cardiomyopathy. resume lasix 40mg po qd (5) Acute on chronic systolic heart failure Current Visit: No Status: Acute Plan to address problem: on inotropic support with dobutamine. Follow up with further recommendations per cardiology. (6) HTN (hypertension) Current Visit: No Status: Chronic Plan to address problem: Continue on current regimen and will monitor. (7) Hypokalemia Current Visit: Yes Status: Acute Plan to address problem: K improved on supplementation with IV KCL and po K Dur, target K > 4 Subjective Date of service: 07/01/18 Principal diagnosis: altered mental status, psychosis, chronic systolic heart failure, Interval history: pt awake, alert, no acute respiratory distress. on dobutamin gtt with increased UOP, improved renal function. Objective - Vital Signs Vital signs: Vital Signs - 12hr 07/01/18 07/01/18 07/01/18 04:00 05:00 06:00 Temperature 97.6 F Pulse Rate 83 77 89 Pulse Rate [ 89 From Monitor] Pulse Rate [ Throughout] Respiratory 16 14 14 Rate Respiratory Rate [ Throughout] Blood Pressure 111/52 126/66 116/55 O2 Sat by Pulse 100 97 100 Oximetry 07/01/18 07/01/18 07/01/18 07:00 08:30 08:40 Temperature Pulse Rate 88 Pulse Rate [ From Monitor] Pulse Rate [ 87 89 Throughout] Respiratory 12 Rate Respiratory 14 16 Rate [ Throughout] Blood Pressure 116/55 O2 Sat by Pulse 99 Oximetry 07/01/18 07/01/18 07/01/18 09:43 09:45 09:46 Temperature Pulse Rate 85 85 83 Pulse Rate [ From Monitor] Pulse Rate [ Throughout] Respiratory Rate Respiratory Rate [ Throughout] Blood Pressure 142/70 142/70 142/70 O2 Sat by Pulse Oximetry - General Appearance General appearance: appears stated age, chronically ill EENT: ATNC, PERRL, mucous membranes moist Neck: no JVD Respiratory: Present: Decreased Breath Sounds Cardiology: regular, S1S2 Gastrointestinal: normoactive bowel sounds Integumentary: no rash, other (+ edema b/l UE and LE ) Neurologic: no focal deficit, alert and oriented x3, strength 5/5, CN 3-12 intact Psychiatric: mood/affect appropriate, cooperative - Lab 07/01/18 04:39 07/01/18 04:39 Most recent lab results Calcium 8.1 mg/dL (8.4-10.2) L 07/01/18 04:39 Phosphorus 2.50 mg/dL (2.5-4.5) 06/20/18 07:31 Magnesium 1.70 mg/dL (1.7-2.3) 06/29/18 06:40 Urine Creatinine 61.7 mg/dL (0.1-20.0) H 06/19/18 Unknown Urine Total Protein 32 mg/dL (5-11.8) H 06/19/18 Unknown Medications & Allergies - Medications Allergies/Adverse Reactions: Allergies Penicillins Allergy (Verified 09/04/17 14:11) Unknown aspirin Adverse Reaction (Verified 09/04/17 14:10) Nausea NSAIDS (Non-Steroidal Anti-Inflamma Adverse Reaction (Verified 09/04/17 14:10) Nausea Pork/Porcine Containing Products Adverse Reaction (Verified 11/01/17 09:04) Nausea Home Medications: Home Medications Medication Instructions Recorded Confirmed Last Taken Type Apixaban [Eliquis] 5 mg PO DAILY 09/06/17 10/31/17 Unknown History AtorvaSTATin [Lipitor] 20 mg PO DAILY 09/06/17 10/31/17 Unknown History Loperamide HCl [Loperamide] 2 mg PO DAILY 09/06/17 10/31/17 Unknown History Sertraline [Zoloft] 50 mg PO DAILY 09/06/17 10/31/17 10/17/17 10:00 History Sucralfate [Carafate] 1 gm PO DAILY 09/06/17 10/31/17 Unknown History Carvedilol [Coreg] 12.5 mg PO BID #60 tablet 09/08/17 10/31/17 Unknown Rx Lisinopril [Zestril TAB] 5 mg PO QDAY #30 tablet 09/08/17 10/31/17 Unknown Rx Doxycycline [Vibramycin CAP] 100 mg PO Q12HR #10 capsule 11/02/17 Unknown Rx Furosemide [Lasix] 20 mg PO QDAY #30 tablet 11/02/17 Unknown Rx Active Medications: Generic Name Dose Route Start Last Admin Trade Name Freq PRN Reason Stop Dose Admin Acetaminophen 650 mg 06/17/18 03:33 07/01/18 00:47 Tylenol PO 650 mg Q4H PRN Administration Fever >101 Albuterol/Ipratropium 1 ampul 06/27/18 14:00 07/01/18 08:30 Duoneb *Not For Prn Use* IH 1 ampul TIDRT JEANETTE Administration Apixaban 5 mg 06/20/18 16:00 07/01/18 09:44 Eliquis PO 5 mg Q12HR JEANETTE Administration Protocol Atorvastatin Calcium 20 mg 06/19/18 22:00 06/30/18 03:46 Lipitor PO Not Given QHS JEANETTE Dextrose 50 ml 07/01/18 11:50 D50w (25gm) Syringe IV PRN PRN Hypoglycemia Digoxin 0.125 mg 06/24/18 17:00 06/30/18 16:58 Lanoxin PO 0.125 mg DAILY@1700 JEANETTE Administration Famotidine 20 mg 06/27/18 12:00 07/01/18 09:44 Pepcid PO 20 mg DAILY JEANETTE Administration Dobutamine HCl/Dextrose 500 mg in 250 mls @ 5.918 mls/hr 06/27/18 13:00 07/01/18 13:19 Dobutrex Drip 500mg/D5w 250ml IV 5 mcg/kg/min DIRECT JEANETTE 11.835 mls/hr Administration 2.5 MCG/KG/MIN Dextrose/Sodium Chloride 1,000 mls @ 42 mls/hr 06/30/18 17:00 06/30/18 16:59 D5ns IV 42 mls/hr DIRECT JEANETTE Administration Insulin Human Lispro 0 unit 07/01/18 16:30 Humalog SUB-Q ACHS JEANETTE Protocol Lactulose 20 gm 06/25/18 12:00 07/01/18 12:34 Cephulac PO 20 gm Q6HR JEANETTE Administration Metoprolol Tartrate 25 mg 06/25/18 09:00 07/01/18 09:46 Lopressor PO 25 mg Q8H JEANETTE Administration Ondansetron HCl 4 mg 06/17/18 03:24 Zofran IV Q8H PRN Nausea And Vomiting Sertraline HCl 50 mg 06/24/18 10:00 07/01/18 09:44 Zoloft PO 50 mg DAILY JEANETTE Administration
--- NOTE | 2018-07-01 17:02 | Progress Note ---
Assessment and Plan Assessment and plan: Patient is 68 yo woman with a history of hypertension, CHF and Atrial fibrillation who presented with altered mental status. She was climbing a fence, running wild; therefore, brought to ED. No previous psych history. CT neg. She was sedated in ED, and admitted. MRI Brain unremarkable. Patient evaluated by Neuro and psychiatry. She was initially a 1013 but is was rescinded. It appears Neurology believes patient AMS is a psychotic disorder but Psychiatry has not really making a definitive diagnosis. I believe she has Schizoaffective disorder or Dementia with psychotic features. During the hospital stay, She received Haldol to obtain CT head but had PEA cardiac arrest on 06/26/18, she received Epinephrine then developed pulseless Ventricular fibrillation and 1 shock via defibrillator was delivered with return of pulse. She was also found to have a very low blood glucose during the cardiac arrest and was treated with IV dextrose. She was intubated during the Code blue and sent to ICU. /Acute Respiratory failure following Cardiac Arrest ?PEA from hypoglycemia or Haldol administration- now off the ventilator and on nasal canula /Hypoglycemia--Blood glucose was 20 during the code- resolved /Altered mental status, with acute encephalopathy suspected Dementia with psychotic features vs Schizoaffective disorder: Psych re-consulted /Permanent Atrial fib/flutter: Eliquis resumed /Chronic systolic CHF of EF 20-25%, patient has been on hospice before, it appears she was discharged from hospice. /Hyponatremia, due to CHF, na 130 today improved from 122: Nephrology following /Elevated LFT, Likely congestive hepatopathy,monitor as needed /Severe protein calorie malnutrition: Business Control Specialist consulted /SIRS- ?underlying PNA doubt based on xray review and lack of fever or leukocytoisis: check blood culture- NO GROWTH. Antibiotics discontinued /Persistently elevated Lactic acidosis:-Likely secondary to hypoperfusion- improving /Hypokalemia: replace /Remains on restraints for safety DVT prophylaxis: Patient is on Eliquis POOR PROGNOSIS. patient was in Hospice for end stage Heart failure. History Interval history: Patient was seen and examined. Follow-up on current diagnosis AMS, still present. Overnight uneventful. Patient is confused. Imaging, nursing note, chart, labs and old chart reviewed. Discussed with patient. Hospitalist Physical - Physical exam Narrative exam: GEN: WDWN, NAD, Awake, Alert, confused HEENT: NCAT, EOMI, PERRL, OP Clear NECK: supple, no adenopathy, no thyromegaly, no JVD CVS/HEART: irregular, normal S1S2, pulses present bilaterally CHEST/LUNGS: CTA B, Symmetrical chest expansion, good air entry bilaterally GI/Abdomen: soft, NTND, good bowel sounds, no guarding or rebound /Bladder: no suprapubic tenderness, no CVA or paraspinal tenderness EXT/Skin: no c/c, +edema, no obvious rash MSK: FROM x 4 Neuro: CN 2-12 grossly intact, not following commands Psych: calm - Constitutional Vitals: Temp Pulse Resp BP Pulse Ox 98.4 F 90 16 81/34 92 07/01/18 16:00 07/01/18 15:55 07/01/18 15:55 07/01/18 15:00 07/01/18 15:00 General appearance: Present: no acute distress Results - Labs CBC & Chem 7: 07/01/18 04:39 07/01/18 04:39 Labs: Laboratory Last Values WBC 10.6 K/mm3 (4.5-11.0) 07/01/18 04:39 RBC 4.81 M/mm3 (3.65-5.03) 07/01/18 04:39 Hgb 12.0 gm/dl (10.1-14.3) 07/01/18 04:39 Hct 37.2 % (30.3-42.9) 07/01/18 04:39 MCV 77 fl (79-97) L 07/01/18 04:39 MCH 25 pg (28-32) L 07/01/18 04:39 MCHC 32 % (30-34) 07/01/18 04:39 RDW 19.3 % (13.2-15.2) H 07/01/18 04:39 Plt Count 77 K/mm3 (140-440) L 07/01/18 04:39 Lymph % (Auto) 6.0 % (13.4-35.0) L 06/28/18 08:30 [place] % (Auto) 10.0 % (0.0-7.3) H 06/28/18 08:30 Eos % (Auto) 0.3 % (0.0-4.3) 06/28/18 08:30 Baso % (Auto) 0.3 % (0.0-1.8) 06/28/18 08:30 Lymph # 0.9 K/mm3 (1.2-5.4) L 06/28/18 08:30 [place] # 1.6 K/mm3 (0.0-0.8) H 06/28/18 08:30 Eos # 0.1 K/mm3 (0.0-0.4) 06/28/18 08:30 Baso # 0.0 K/mm3 (0.0-0.1) 06/28/18 08:30 Add Manual Diff Complete 06/27/18 09:29 Total Counted 100 06/27/18 09:29 Seg Neutrophils % 83.4 % (40.0-70.0) H 06/28/18 08:30 Seg Neuts % (Manual) 91.0 % (40.0-70.0) H 06/27/18 09:29 Band Neutrophils % 0 % 06/27/18 09:29 Lymphocytes % (Manual) 3.0 % (13.4-35.0) L 06/27/18 09:29 Reactive Lymphs % (Man) 0 % 06/27/18 09:29 Monocytes % (Manual) 6.0 % (0.0-7.3) 06/27/18 09:29 Eosinophils % (Manual) 0 % (0.0-4.3) 06/27/18 09:29 Basophils % (Manual) 0 % (0.0-1.8) 06/27/18 09:29 Metamyelocytes % 0 % 06/27/18 09:29 Myelocytes % 0 % 06/27/18 09:29 Promyelocytes % 0 % 06/27/18 09:29 Blast Cells % 0 % 06/27/18 09:29 Nucleated RBC % Not Reportable 06/27/18 09:29 Seg Neutrophils # 13.1 K/mm3 (1.8-7.7) H 06/28/18 08:30 Seg Neutrophils # Man 14.8 K/mm3 (1.8-7.7) H 06/27/18 09:29 Band Neutrophils # 0.0 K/mm3 06/27/18 09:29 Lymphocytes # (Manual) 0.5 K/mm3 (1.2-5.4) L 06/27/18 09:29 Abs React Lymphs (Man) 0.0 K/mm3 06/27/18 09:29 Monocytes # (Manual) 1.0 K/mm3 (0.0-0.8) H 06/27/18 09:29 Eosinophils # (Manual) 0.0 K/mm3 (0.0-0.4) 06/27/18 09:29 Basophils # (Manual) 0.0 K/mm3 (0.0-0.1) 06/27/18 09:29 Metamyelocytes # 0.0 K/mm3 06/27/18 09:29 Myelocytes # 0.0 K/mm3 06/27/18 09:29 Promyelocytes # 0.0 K/mm3 06/27/18 09:29 Blast Cells # 0.0 K/mm3 06/27/18 09:29 WBC Morphology Not Reportable 06/27/18 09:29 Hypersegmented Neuts Not Reportable 06/27/18 09:29 Hyposegmented Neuts Not Reportable 06/27/18 09:29 Hypogranular Neuts Not Reportable 06/27/18 09:29 Smudge Cells Not Reportable 06/27/18 09:29 Toxic Granulation Not Reportable 06/27/18 09:29 Toxic Vacuolation Not Reportable 06/27/18 09:29 Dohle Bodies Not Reportable 06/27/18 09:29 Pelger-Huet Anomaly Not Reportable 06/27/18 09:29 Sushma Rods Not Reportable 06/27/18 09:29 Platelet Estimate Consistent w auto 06/27/18 09:29 Clumped Platelets Not Reportable 06/27/18 09:29 Plt Clumps, EDTA Not Reportable 06/27/18 09:29 Large Platelets Not Reportable 06/27/18 09:29 Giant Platelets Not Reportable 06/27/18 09:29 Platelet Satelliting Not Reportable 06/27/18 09:29 Plt Morphology Comment Not Reportable 06/27/18 09:29 RBC Morphology Not Reportable 06/27/18 09:29 Dimorphic RBCs Not Reportable 06/27/18 09:29 Polychromasia Not Reportable 06/27/18 09:29 Hypochromasia Few 06/27/18 09:29 Poikilocytosis 2+ 06/27/18 09:29 Anisocytosis Not Reportable 06/27/18 09:29 Microcytosis Rare 06/27/18 09:29 Macrocytosis Not Reportable 06/27/18 09:29 Spherocytes Not Reportable 06/27/18 09:29 Pappenheimer Bodies Not Reportable 06/27/18 09:29 Sickle Cells Not Reportable 06/27/18 09:29 Target Cells 2+ 06/27/18 09:29 Tear Drop Cells Not Reportable 06/27/18 09:29 Ovalocytes Rare 06/27/18 09:29 Helmet Cells Not Reportable 06/27/18 09:29 [place] Bodies Not Reportable 06/27/18 09:29 [place] Rings Not Reportable 06/27/18 09:29 Ione Cells Not Reportable 06/27/18 09:29 Bite Cells Not Reportable 06/27/18 09:29 Crenated Cell Not Reportable 06/27/18 09:29 Elliptocytes Not Reportable 06/27/18 09:29 Acanthocytes (Spur) Not Reportable 06/27/18 09:29 Rouleaux Not Reportable 06/27/18 09:29 Hemoglobin C Crystals Not Reportable 06/27/18 09:29 Schistocytes Not Reportable 06/27/18 09:29 Malaria parasites Not Reportable 06/27/18 09:29 Saqib Bodies Not Reportable 06/27/18 09:29 Hem Pathologist Commnt No 06/27/18 09:29 POC ABG pH 7.552 (7.35-7.45) H 06/28/18 10:53 POC ABG pCO2 40.8 (35-45) 06/28/18 10:53 POC ABG pO2 83 (80-105) 06/28/18 10:53 POC ABG HCO3 35.9 (22-26 mml/L) 06/28/18 10:53 POC ABG Total CO2 37 (23-27mmol/L) 06/28/18 10:53 POC ABG O2 Sat 97 06/28/18 10:53 POC ABG Base Excess 14 ((-2) - (+3)mmol/L) 06/28/18 10:53 FiO2 30 % 06/28/18 10:53 Sodium 138 mmol/L (137-145) 07/01/18 04:39 Potassium 3.5 mmol/L (3.6-5.0) L D 07/01/18 04:39 Chloride 99.4 mmol/L (98-107) 07/01/18 04:39 Carbon Dioxide 29 mmol/L (22-30) 07/01/18 04:39 Anion Gap 13 mmol/L 07/01/18 04:39 BUN 14 mg/dL (7-17) 07/01/18 04:39 Creatinine 0.7 mg/dL (0.7-1.2) 07/01/18 04:39 Estimated GFR > 60 ml/min 07/01/18 04:39 BUN/Creatinine Ratio 20 % 07/01/18 04:39 Glucose 109 mg/dL (65-100) H 07/01/18 04:39 POC Glucose 89 (70-105) 07/01/18 16:09 Hemoglobin A1c 5.5 % (4-6) 06/17/18 15:08 Osmolality 276 Mosm/kg 06/20/18 07:31 Lactic Acid 2.40 mmol/L (0.7-2.0) H* 06/28/18 08:30 Uric Acid 9.2 mg/dL (3.5-7.6) H 06/21/18 16:27 Calcium 8.1 mg/dL (8.4-10.2) L 07/01/18 04:39 Phosphorus 2.50 mg/dL (2.5-4.5) 06/20/18 07:31 Magnesium 1.70 mg/dL (1.7-2.3) 06/29/18 06:40 Total Bilirubin 3.90 mg/dL (0.1-1.2) H 07/01/18 04:39 Direct Bilirubin 1.6 mg/dL (0-0.2) H 06/17/18 11:00 Indirect Bilirubin -1.4 mg/dL 06/17/18 11:00 AST 163 units/L (5-40) H 07/01/18 04:39 ALT 60 units/L (7-56) H 07/01/18 04:39 Alkaline Phosphatase 166 units/L (35-129) H 07/01/18 04:39 Ammonia 38.0 umol/L (25-60) 06/25/18 16:02 Total Creatine Kinase TNR 06/26/18 19:52 CK-MB (CK-2) TNR 06/26/18 19:52 CK-MB (CK-2) Rel Index TNR 06/26/18 19:52 Troponin T TNR 06/26/18 19:52 C-Reactive Protein 4.80 mg/dL (0.00-1.30) H 06/28/18 05:00 Total Protein 4.5 g/dL (6.3-8.2) L 07/01/18 04:39 Albumin 2.0 g/dL (3.9-5) L 07/01/18 04:39 Albumin/Globulin Ratio 0.8 % 07/01/18 04:39 Vitamin B1 <6 nmol/L (8-30) L 06/21/18 16:27 Vitamin B12 1598 pg/mL (211-911) H 06/20/18 20:53 25-OH Vitamin D Total 10 ng/mL (30-100) L 06/20/18 20:53 25-Hydroxy Vitamin D2 . 06/20/18 20:53 25-Hydroxy Vitamin D3 . 06/20/18 20:53 Folate 14.18 ng/mL (7.3-26.0) 06/20/18 20:53 TSH 1.540 mlU/mL (0.270-4.200) 06/27/18 09:29 Free T4 1.78 ng/dL (0.76-1.46) H 06/27/18 09:29 T3 (GILSON) 58 ng/dL (76-181) L 06/20/18 16:51 Urine Color Caryl (Yellow) 06/16/18 Unknown Urine Turbidity Clear (Clear) 06/16/18 Unknown Urine pH 5.0 (5.0-7.0) 06/16/18 Unknown Ur Specific [place] 1.025 (1.003-1.030) 06/16/18 Unknown Urine Protein 100 mg/dl mg/dL (Negative) 06/16/18 Unknown Urine Glucose (UA) 50 mg/dL (Negative) 06/16/18 Unknown Urine Ketones Neg mg/dL (Negative) 06/16/18 Unknown Urine Blood Neg (Negative) 06/16/18 Unknown Urine Nitrite Neg (Negative) 06/16/18 Unknown Urine Bilirubin Neg (Negative) 06/16/18 Unknown Urine Urobilinogen 4.0 mg/dL (<2.0) 06/16/18 Unknown Ur Leukocyte Esterase Neg (Negative) 06/16/18 Unknown Urine WBC (Auto) 4.0 /HPF (0.0-6.0) 06/16/18 Unknown Urine RBC (Auto) 5.0 /HPF (0.0-6.0) 06/16/18 Unknown U Epithel Cells (Auto) 7.0 /HPF (0-13.0) 06/16/18 Unknown Hyaline Casts 49 /LPF 06/16/18 Unknown Urine Mucus Few /HPF 06/16/18 Unknown Urine Osmolality 413 Mosm/kg 06/19/18 Unknown Urine Creatinine 61.7 mg/dL (0.1-20.0) H 06/19/18 Unknown Urine Total Protein 32 mg/dL (5-11.8) H 06/19/18 Unknown Salicylates 5.5 mg/dL (2.8-20.0) 06/16/18 21:43 Urine Opiates Screen Presumptive negative 06/16/18 Unknown Urine Methadone Screen Presumptive negative 06/16/18 Unknown Acetaminophen < 5.0 ug/mL (10.0-30.0) L 06/16/18 21:43 Ur Barbiturates Screen Presumptive negative 06/16/18 Unknown Ur Phencyclidine Scrn Presumptive negative 06/16/18 Unknown Ur Amphetamines Screen Presumptive negative 06/16/18 Unknown U Benzodiazepines Scrn Presumptive negative 06/16/18 Unknown Urine Cocaine Screen Presumptive negative 06/16/18 Unknown U Marijuana (THC) Screen Presumptive negative 06/16/18 Unknown Drugs of Abuse Note Disclamer 06/16/18 Unknown Plasma/Serum Alcohol < 0.01 % (0-0.07) 06/16/18 21:43 Thyroglobulin Antibody See scanned result 06/20/18 16:51 Thyroid Peroxidase Ab See scanned result 06/20/18 16:51 HIV 1&2 Antibody Rapid Non react (Non React) 06/21/18 16:27 HIV P24 Antigen Non react (Non React) 06/21/18 16:27 Active Medications - Current Medications Current Medications: Generic Name Dose Route Start Last Admin Trade Name Freq PRN Reason Stop Dose Admin Acetaminophen 650 mg 06/17/18 03:33 07/01/18 00:47 Tylenol PO 650 mg Q4H PRN Administration Fever >101 Albuterol/Ipratropium 1 ampul 06/27/18 14:00 07/01/18 15:00 Duoneb *Not For Prn Use* IH 1 ampul TIDRT JEANETTE Administration Apixaban 5 mg 06/20/18 16:00 07/01/18 09:44 Eliquis PO 5 mg Q12HR JEANETTE Administration Protocol Atorvastatin Calcium 20 mg 06/19/18 22:00 06/30/18 03:46 Lipitor PO Not Given QHS JEANETTE Dextrose 50 ml 07/01/18 11:50 D50w (25gm) Syringe IV PRN PRN Hypoglycemia Digoxin 0.125 mg 06/24/18 17:00 06/30/18 16:58 Lanoxin PO 0.125 mg DAILY@1700 JEANETTE Administration Famotidine 20 mg 06/27/18 12:00 07/01/18 09:44 Pepcid PO 20 mg DAILY JEANETTE Administration Dobutamine HCl/Dextrose 500 mg in 250 mls @ 5.918 mls/hr 06/27/18 13:00 07/01/18 13:19 Dobutrex Drip 500mg/D5w 250ml IV 5 mcg/kg/min DIRECT JEANETTE 11.835 mls/hr Administration 2.5 MCG/KG/MIN Dextrose/Sodium Chloride 1,000 mls @ 42 mls/hr 06/30/18 17:00 06/30/18 16:59 D5ns IV 42 mls/hr DIRECT JEANETTE Administration Insulin Human Lispro 0 unit 07/01/18 16:30 Humalog SUB-Q ACHS [facility] Protocol Lactulose 20 gm 06/25/18 12:00 07/01/18 12:34 Cephulac PO 20 gm Q6HR JEANETTE Administration Metoprolol Tartrate 25 mg 06/25/18 09:00 07/01/18 09:46 Lopressor PO 25 mg Q8H JEANETTE Administration Ondansetron HCl 4 mg 06/17/18 03:24 Zofran IV Q8H PRN Nausea And Vomiting Sertraline HCl 50 mg 06/24/18 10:00 07/01/18 09:44 Zoloft PO 50 mg DAILY JEANETTE Administration Nutrition/Malnutrition Assess - Dietary Evaluation Nutrition/Malnutrition Findings: Nutrition Notes Start: 06/24/18 15:14 Freq: Status: Active Protocol: Document 07/01/18 10:55 CP (Rec: 07/01/18 11:00 CP [id number]) Co-Sign 07/01/18 10:55 LP Nutrition Notes Need for Assessment generated from: MD Order Initial or Follow up Assessment Current Diagnosis Acute Kidney Injury, Hypertension,Heart Failure, Respiratory Failure Other Pertinent Diagnosis s/p cardiac arrest, psychosis, AMS Current Diet Mechanical Soft Labs/Tests K 3.5 POC BG 206 Pertinent Medications Reviewed Height 5 ft 5 in Weight 80.6 kg [place] Body Weight (kg) 56.81 BMI 29.5 Subjective/Other Information MD screen for poor oral intake . Per RN, pt has been consuming only 25% of meals and has had a poor appetite. Percent of energy/protein needs met: 33%/31% Burn Absent Trauma Absent #1 Nutrition Diagnosis Inadequate oral intake Diagnosis Progress(for reassessment Continues documentation) Is patient on ventilator? No Is Patient Ambulatory and/or Out of Bed No REE-([place]-St. Jeor-confined to bed) [phone] Calculation Used for Recommendations [place] Jeor Additional Notes Pro needs 1-1.2g/k-96 g/ day Fluid needs 1ml/kcall Nutrition Intervention Change Diet Order: Continue current Add Supplement/Snack (indicate name/kcal Ensure Enlive Flavor Rotate /protein ) BID Provides kCal: 700 Provides Protein (gm) 40 Goal #1 PO intake to meet at least 80% of energy and protein needs Anticipated Discharge Needs: Unable to determine at this time Follow-Up By: 07/04/18 Additional Comments F/U: PO/ONS intakes
[2018-07-01] MEDS: HumaLOG SUB-Q SCH (22:13)
[2018-07-02] MEDS: LOPRESSOR PO SCH ×4 (00:30→17:20)
[2018-07-02 06:38] LABS: Hematocrit 35.9 % (30.3-42.9); Hemoglobin 11.8 gm/dl (10.1-14.3); Mean Corpuscular HGB Conc 33 % (30-34); Mean Corpuscular Volume 77 fl (79-97); Red Blood Count 4.67 M/mm3 (3.65-5.03); Red Cell Distribution Width 19.2 % (13.2-15.2)
[2018-07-02 06:42] LABS: Platelet Count 78 K/mm3 (140-440)
[2018-07-02] MEDS: CEPHULAC PO SCH ×4 (07:34→17:20)
[2018-07-02 08:12] LABS: BUN/Creatinine Ratio 20; Blood Urea Nitrogen 12 mg/dL (7-17); Calcium 8.3 mg/dL (8.4-10.2); Hemolysis Index 7
[2018-07-02] MEDS: DUONEB *Not for PRN Use IH SCH ×3 (09:01→22:29)
[2018-07-02] MEDS: ZOLOFT PO SCH (10:09)
[2018-07-02] MEDS: ELIQUIS PO SCH ×2 (10:09→22:11)
[2018-07-02] MEDS: PEPCID PO SCH (10:09)
[2018-07-02] MEDS: HumaLOG SUB-Q SCH ×5 (10:11→22:11)
[2018-07-02] MEDS: LANOXIN PO SCH ×2 (10:12→17:21)
--- NOTE | 2018-07-02 12:11 | Progress Note ---
Assessment and Plan - Patient Problems (1) Hyponatremia with decreased serum osmolality Current Visit: Yes Status: Acute Plan to address problem: Likely in the setting of fluid overload. Continues on diuretic regimen along with dobutamin gtt. Cardiology following, now in the IMCU. Overall serum sodium levels are stable (2) Fluid overload Current Visit: Yes Status: Chronic Qualifiers: Hypervolemia type: other Qualified Code(s): E87.79 - Other fluid overload Plan to address problem: Agree with current regimen and diuretic management. Would recommend fluid restrictions and appropriate low-sodium diet given her history of end-stage heart disease and cardiomyopathy.Continues on dobutamin gtt (3) Acute on chronic systolic heart failure Current Visit: No Status: Acute Plan to address problem: Follow up with further recommendations per cardiology. Will continue on current diuretic regimen along with appropriate fluid restrictions and low sodium diet. (4) Altered mental status Current Visit: Yes Status: Acute Plan to address problem: We'll continue to monitor closely. Psychiatry evaluation noted. (5) HTN (hypertension) Current Visit: No Status: Chronic Plan to address problem: Continue on current regimen and will monitor. Subjective Date of service: 07/02/18 Principal diagnosis: altered mental status, psychosis, chronic systolic heart failure, Interval history: No acute complaints this am. Patient remains altered. In the IMCU, continues on dobutamine gtt. Renal function is stable Objective - Vital Signs Vital signs: Vital Signs - 12hr 07/02/18 07/02/18 07/02/18 00:30 01:00 02:00 Temperature Pulse Rate 99 H 98 H 86 Pulse Rate [ From Monitor] Pulse Rate [ Throughout] Respiratory 16 18 18 Rate Respiratory Rate [ Throughout] Blood Pressure 124/94 124/94 111/54 O2 Sat by Pulse 100 100 Oximetry 07/02/18 07/02/18 07/02/18 03:00 04:00 05:00 Temperature 97.8 F Pulse Rate 83 86 84 Pulse Rate [ 83 From Monitor] Pulse Rate [ Throughout] Respiratory 18 12 16 Rate Respiratory Rate [ Throughout] Blood Pressure 111/54 108/66 110/68 O2 Sat by Pulse 100 100 100 Oximetry 07/02/18 07/02/18 07/02/18 06:00 07:00 09:01 Temperature Pulse Rate 85 82 Pulse Rate [ From Monitor] Pulse Rate [ 81 Throughout] Respiratory 17 13 Rate Respiratory 18 Rate [ Throughout] Blood Pressure 110/68 153/56 O2 Sat by Pulse 100 100 Oximetry 07/02/18 07/02/18 07/02/18 09:02 09:11 10:11 Temperature Pulse Rate 96 H Pulse Rate [ From Monitor] Pulse Rate [ 86 Throughout] Respiratory Rate Respiratory 18 Rate [ Throughout] Blood Pressure 120/60 O2 Sat by Pulse 100 Oximetry - General Appearance General appearance: appears stated age EENT: ATNC, PERRL Neck: no JVD Respiratory: Present: Clear to Ascultation Cardiology: regular, S1S2 Gastrointestinal: normal Integumentary: no rash Neurologic: confused Musculoskeletal: other (+edema ) Psychiatric: cooperative - Lab 07/02/18 05:23 07/02/18 05:23 Most recent lab results Calcium 8.3 mg/dL (8.4-10.2) L 07/02/18 05:23 Phosphorus 2.50 mg/dL (2.5-4.5) 06/20/18 07:31 Magnesium 1.70 mg/dL (1.7-2.3) 06/29/18 06:40 Urine Creatinine 61.7 mg/dL (0.1-20.0) H 06/19/18 Unknown Urine Total Protein 32 mg/dL (5-11.8) H 06/19/18 Unknown - Allied health notes Allied health notes reviewed: nursing Medications & Allergies - Medications Allergies/Adverse Reactions: Allergies Penicillins Allergy (Verified 09/04/17 14:11) Unknown aspirin Adverse Reaction (Verified 09/04/17 14:10) Nausea NSAIDS (Non-Steroidal Anti-Inflamma Adverse Reaction (Verified 09/04/17 14:10) Nausea Pork/Porcine Containing Products Adverse Reaction (Verified 11/01/17 09:04) Nausea Home Medications: Home Medications Medication Instructions Recorded Confirmed Last Taken Type Apixaban [Eliquis] 5 mg PO DAILY 09/06/17 10/31/17 Unknown History AtorvaSTATin [Lipitor] 20 mg PO DAILY 09/06/17 10/31/17 Unknown History Loperamide HCl [Loperamide] 2 mg PO DAILY 09/06/17 10/31/17 Unknown History Sertraline [Zoloft] 50 mg PO DAILY 09/06/17 10/31/17 10/17/17 10:00 History Sucralfate [Carafate] 1 gm PO DAILY 09/06/17 10/31/17 Unknown History Carvedilol [Coreg] 12.5 mg PO BID #60 tablet 09/08/17 10/31/17 Unknown Rx Lisinopril [Zestril TAB] 5 mg PO QDAY #30 tablet 09/08/17 10/31/17 Unknown Rx Doxycycline [Vibramycin CAP] 100 mg PO Q12HR #10 capsule 11/02/17 Unknown Rx Furosemide [Lasix] 20 mg PO QDAY #30 tablet 11/02/17 Unknown Rx Active Medications: Generic Name Dose Route Start Last Admin Trade Name Freq PRN Reason Stop Dose Admin Acetaminophen 650 mg 06/17/18 03:33 07/01/18 00:47 Tylenol PO 650 mg Q4H PRN Administration Fever >101 Albuterol/Ipratropium 1 ampul 06/27/18 14:00 07/02/18 09:01 Duoneb *Not For Prn Use* IH 1 ampul TIDRT JEANETTE Administration Apixaban 5 mg 06/20/18 16:00 07/02/18 10:09 Eliquis PO 5 mg Q12HR JEANETTE Administration Protocol Atorvastatin Calcium 20 mg 06/19/18 22:00 07/01/18 22:13 Lipitor PO 20 mg QHS JEANETTE Administration Dextrose 50 ml 07/01/18 11:50 D50w (25gm) Syringe IV PRN PRN Hypoglycemia Digoxin 0.125 mg 06/24/18 17:00 07/02/18 10:12 Lanoxin PO 0.125 mg DAILY@1700 EJANETTE Administration Famotidine 20 mg 06/27/18 12:00 07/02/18 10:09 Pepcid PO 20 mg DAILY JEANETTE Administration Dobutamine HCl/Dextrose 500 mg in 250 mls @ 5.918 mls/hr 06/27/18 13:00 07/01/18 13:19 Dobutrex Drip 500mg/D5w 250ml IV 5 mcg/kg/min DIRECT JEANETTE 11.835 mls/hr Administration 2.5 MCG/KG/MIN Dextrose/Sodium Chloride 1,000 mls @ 42 mls/hr 06/30/18 17:00 06/30/18 16:59 D5ns IV 42 mls/hr DIRECT JEANETTE Administration Insulin Human Lispro 0 unit 07/01/18 16:30 07/02/18 10:13 Humalog SUB-Q Not Given ACHS JEANETTE Protocol Lactulose 20 gm 06/25/18 12:00 07/02/18 10:09 Cephulac PO 20 gm Q6HR JEANETTE Administration Metoprolol Tartrate 25 mg 06/25/18 09:00 07/02/18 10:12 Lopressor PO 25 mg Q8H JEANETTE Administration Ondansetron HCl 4 mg 06/17/18 03:24 Zofran IV Q8H PRN Nausea And Vomiting Sertraline HCl 50 mg 06/24/18 10:00 07/02/18 10:09 Zoloft PO 50 mg DAILY JEANETTE Administration
[2018-07-02] MEDS: DOBUTREX DRIP 500MG/D5W 250ML 500 MG/250 ML BAG IV SCH (12:21)
[2018-07-02] MEDS: TYLENOL PO PRN (14:01)
--- NOTE | 2018-07-02 14:29 | Progress Note ---
Assessment and Plan Assessment and plan: Patient is 68 yo woman with a history of hypertension, CHF and Atrial fibrillation who presented with altered mental status. She was climbing a fence, running wild; therefore, brought to ED. No previous psych history. CT neg. She was sedated in ED, and admitted. MRI Brain unremarkable. Patient evaluated by Neuro and psychiatry. She was initially a 1013 but is was rescinded. It appears Neurology believes patient AMS is a psychotic disorder but Psychiatry has not really making a definitive diagnosis. I believe she has Schizoaffective disorder or Dementia with psychotic features. During the hospital stay, She received Haldol to obtain CT head but had PEA cardiac arrest on 06/26/18, she received Epinephrine then developed pulseless Ventricular fibrillation and 1 shock via defibrillator was delivered with return of pulse. She was also found to have a very low blood glucose during the cardiac arrest and was treated with IV dextrose. She was intubated during the Code blue and sent to ICU. -Acute Respiratory failure following Cardiac Arrest ?PEA from hypoglycemia or Haldol administration- now off the ventilator and on nasal canula -s/p Cardiac arrest after Haldol: I listed Haldol as an Allergy/Adverse drug -Severe NICM, ionotrope dependent in IMCU: Cardiology recommends Hospice -Hypoglycemia--Blood glucose was 20 during the code- resolved -Altered mental status, with acute encephalopathy suspected Dementia with psychotic features vs Schizoaffective disorder: Psych re-consulted -Permanent Atrial fib/flutter: Eliquis resumed -Chronic systolic CHF of EF 20-25%, patient has been on hospice before, it appears she was discharged from hospice. -Hyponatremia, due to CHF, na 130 today improved from 122: Nephrology following -Elevated LFT, Likely congestive hepatopathy due to end stage NICMP,monitor as needed -Severe protein calorie malnutrition: Wood Shop Teacher consulted -SIRS- ?underlying PNA doubt based on xray review and lack of fever or leukocytoisis: check blood culture- NO GROWTH. Antibiotics discontinued -Persistently elevated Lactic acidosis:-Likely secondary to hypoperfusion- improving -Hypokalemia: replace -Remains on restraints for safety -DVT prophylaxis: Patient is on Eliquis POOR PROGNOSIS. patient was in Hospice for end stage Heart failure. Transfer to Telemetry. Hospice Discussion 07/02/2018 I called fred Dorman [phone] and gave update, who is the NOK. Patient an estranged son Lupillo in [place], [place] and unreachable per Dandy. Patient mental status has been declining over 3-4 months. We discussed Hospice. He will run it by patient brother Shoaib Burdick which his father. His number is [phone] which I called via slabbing machine operator's help. He will consider. Patient has 5 siblings CCT 32 minutes History Interval history: Patient was seen and examined. Follow-up on current diagnosis AMS, still present. Overnight uneventful. Patient is confused. Imaging, nursing note, chart, labs and old chart reviewed. Discussed with patient. Hospitalist Physical - Physical exam Narrative exam: GEN: WDWN, NAD, Awake, Alert, confused HEENT: NCAT, EOMI, PERRL, OP Clear NECK: supple, no adenopathy, no thyromegaly, no JVD CVS/HEART: irregular, normal S1S2, pulses present bilaterally CHEST/LUNGS: CTA B, Symmetrical chest expansion, good air entry bilaterally GI/Abdomen: soft, NTND, good bowel sounds, no guarding or rebound /Bladder: no suprapubic tenderness, no CVA or paraspinal tenderness EXT/Skin: no c/c, +edema, no obvious rash MSK: FROM x 4 Neuro: CN 2-12 grossly intact, not following commands Psych: calm - Constitutional Vitals: Temp Pulse Resp BP Pulse Ox 97.8 F 96 H 18 120/60 100 07/02/18 04:00 07/02/18 10:11 07/02/18 09:11 07/02/18 10:11 07/02/18 09:02 General appearance: Present: no acute distress Results - Labs CBC & Chem 7: 07/02/18 05:23 07/02/18 05:23 Labs: Laboratory Last Values WBC 8.6 K/mm3 (4.5-11.0) 07/02/18 05:23 RBC 4.67 M/mm3 (3.65-5.03) 07/02/18 05:23 Hgb 11.8 gm/dl (10.1-14.3) 07/02/18 05:23 Hct 35.9 % (30.3-42.9) 07/02/18 05:23 MCV 77 fl (79-97) L 07/02/18 05:23 MCH 25 pg (28-32) L 07/02/18 05:23 MCHC 33 % (30-34) 07/02/18 05:23 RDW 19.2 % (13.2-15.2) H 07/02/18 05:23 Plt Count 78 K/mm3 (140-440) L 07/02/18 05:23 Lymph % (Auto) 6.0 % (13.4-35.0) L 06/28/18 08:30 [place] % (Auto) 10.0 % (0.0-7.3) H 06/28/18 08:30 Eos % (Auto) 0.3 % (0.0-4.3) 06/28/18 08:30 Baso % (Auto) 0.3 % (0.0-1.8) 06/28/18 08:30 Lymph # 0.9 K/mm3 (1.2-5.4) L 06/28/18 08:30 [place] # 1.6 K/mm3 (0.0-0.8) H 06/28/18 08:30 Eos # 0.1 K/mm3 (0.0-0.4) 06/28/18 08:30 Baso # 0.0 K/mm3 (0.0-0.1) 06/28/18 08:30 Add Manual Diff Complete 06/27/18 09:29 Total Counted 100 06/27/18 09:29 Seg Neutrophils % 83.4 % (40.0-70.0) H 06/28/18 08:30 Seg Neuts % (Manual) 91.0 % (40.0-70.0) H 06/27/18 09:29 Band Neutrophils % 0 % 06/27/18 09:29 Lymphocytes % (Manual) 3.0 % (13.4-35.0) L 06/27/18 09:29 Reactive Lymphs % (Man) 0 % 06/27/18 09:29 Monocytes % (Manual) 6.0 % (0.0-7.3) 06/27/18 09:29 Eosinophils % (Manual) 0 % (0.0-4.3) 06/27/18 09:29 Basophils % (Manual) 0 % (0.0-1.8) 06/27/18 09:29 Metamyelocytes % 0 % 06/27/18 09:29 Myelocytes % 0 % 06/27/18 09:29 Promyelocytes % 0 % 06/27/18 09:29 Blast Cells % 0 % 06/27/18 09:29 Nucleated RBC % Not Reportable 06/27/18 09:29 Seg Neutrophils # 13.1 K/mm3 (1.8-7.7) H 06/28/18 08:30 Seg Neutrophils # Man 14.8 K/mm3 (1.8-7.7) H 06/27/18 09:29 Band Neutrophils # 0.0 K/mm3 06/27/18 09:29 Lymphocytes # (Manual) 0.5 K/mm3 (1.2-5.4) L 06/27/18 09:29 Abs React Lymphs (Man) 0.0 K/mm3 06/27/18 09:29 Monocytes # (Manual) 1.0 K/mm3 (0.0-0.8) H 06/27/18 09:29 Eosinophils # (Manual) 0.0 K/mm3 (0.0-0.4) 06/27/18 09:29 Basophils # (Manual) 0.0 K/mm3 (0.0-0.1) 06/27/18 09:29 Metamyelocytes # 0.0 K/mm3 06/27/18 09:29 Myelocytes # 0.0 K/mm3 06/27/18 09:29 Promyelocytes # 0.0 K/mm3 06/27/18 09:29 Blast Cells # 0.0 K/mm3 06/27/18 09:29 WBC Morphology Not Reportable 06/27/18 09:29 Hypersegmented Neuts Not Reportable 06/27/18 09:29 Hyposegmented Neuts Not Reportable 06/27/18 09:29 Hypogranular Neuts Not Reportable 06/27/18 09:29 Smudge Cells Not Reportable 06/27/18 09:29 Toxic Granulation Not Reportable 06/27/18 09:29 Toxic Vacuolation Not Reportable 06/27/18 09:29 Dohle Bodies Not Reportable 06/27/18 09:29 Pelger-Huet Anomaly Not Reportable 06/27/18 09:29 Sushma Rods Not Reportable 06/27/18 09:29 Platelet Estimate Consistent w auto 06/27/18 09:29 Clumped Platelets Not Reportable 06/27/18 09:29 Plt Clumps, EDTA Not Reportable 06/27/18 09:29 Large Platelets Not Reportable 06/27/18 09:29 Giant Platelets Not Reportable 06/27/18 09:29 Platelet Satelliting Not Reportable 06/27/18 09:29 Plt Morphology Comment Not Reportable 06/27/18 09:29 RBC Morphology Not Reportable 06/27/18 09:29 Dimorphic RBCs Not Reportable 06/27/18 09:29 Polychromasia Not Reportable 06/27/18 09:29 Hypochromasia Few 06/27/18 09:29 Poikilocytosis 2+ 06/27/18 09:29 Anisocytosis Not Reportable 06/27/18 09:29 Microcytosis Rare 06/27/18 09:29 Macrocytosis Not Reportable 06/27/18 09:29 Spherocytes Not Reportable 06/27/18 09:29 Pappenheimer Bodies Not Reportable 06/27/18 09:29 Sickle Cells Not Reportable 06/27/18 09:29 Target Cells 2+ 06/27/18 09:29 Tear Drop Cells Not Reportable 06/27/18 09:29 Ovalocytes Rare 06/27/18 09:29 Helmet Cells Not Reportable 06/27/18 09:29 [place] Bodies Not Reportable 06/27/18 09:29 [place] Rings Not Reportable 06/27/18 09:29 [place] Cells Not Reportable 06/27/18 09:29 Bite Cells Not Reportable 06/27/18 09:29 Crenated Cell Not Reportable 06/27/18 09:29 Elliptocytes Not Reportable 06/27/18 09:29 Acanthocytes (Spur) Not Reportable 06/27/18 09:29 Rouleaux Not Reportable 06/27/18 09:29 Hemoglobin C Crystals Not Reportable 06/27/18 09:29 Schistocytes Not Reportable 06/27/18 09:29 Malaria parasites Not Reportable 06/27/18 09:29 Saqib Bodies Not Reportable 06/27/18 09:29 Hem Pathologist Commnt No 06/27/18 09:29 POC ABG pH 7.552 (7.35-7.45) H 06/28/18 10:53 POC ABG pCO2 40.8 (35-45) 06/28/18 10:53 POC ABG pO2 83 (80-105) 06/28/18 10:53 POC ABG HCO3 35.9 (22-26 mml/L) 06/28/18 10:53 POC ABG Total CO2 37 (23-27mmol/L) 06/28/18 10:53 POC ABG O2 Sat 97 06/28/18 10:53 POC ABG Base Excess 14 ((-2) - (+3)mmol/L) 06/28/18 10:53 FiO2 30 % 06/28/18 10:53 Sodium 135 mmol/L (137-145) L 07/02/18 05:23 Potassium 3.4 mmol/L (3.6-5.0) L 07/02/18 05:23 Chloride 99.1 mmol/L (98-107) 07/02/18 05:23 Carbon Dioxide 28 mmol/L (22-30) 07/02/18 05:23 Anion Gap 11 mmol/L 07/02/18 05:23 BUN 12 mg/dL (7-17) 07/02/18 05:23 Creatinine 0.6 mg/dL (0.7-1.2) L 07/02/18 05:23 Estimated GFR > 60 ml/min 07/02/18 05:23 BUN/Creatinine Ratio 20 % 07/02/18 05:23 Glucose 98 mg/dL (65-100) 07/02/18 05:23 POC Glucose 144 (70-105) H 07/02/18 12:18 Hemoglobin A1c 5.5 % (4-6) 06/17/18 15:08 Osmolality 276 Mosm/kg 06/20/18 07:31 Lactic Acid 2.40 mmol/L (0.7-2.0) H* 06/28/18 08:30 Uric Acid 9.2 mg/dL (3.5-7.6) H 06/21/18 16:27 Calcium 8.3 mg/dL (8.4-10.2) L 07/02/18 05:23 Phosphorus 2.50 mg/dL (2.5-4.5) 06/20/18 07:31 Magnesium 1.70 mg/dL (1.7-2.3) 06/29/18 06:40 Total Bilirubin 3.90 mg/dL (0.1-1.2) H 07/01/18 04:39 Direct Bilirubin 1.6 mg/dL (0-0.2) H 06/17/18 11:00 Indirect Bilirubin -1.4 mg/dL 06/17/18 11:00 AST 163 units/L (5-40) H 07/01/18 04:39 ALT 60 units/L (7-56) H 07/01/18 04:39 Alkaline Phosphatase 166 units/L (35-129) H 07/01/18 04:39 Ammonia 38.0 umol/L (25-60) 06/25/18 16:02 Total Creatine Kinase TNR 06/26/18 19:52 CK-MB (CK-2) TNR 06/26/18 19:52 CK-MB (CK-2) Rel Index TNR 06/26/18 19:52 Troponin T TNR 06/26/18 19:52 C-Reactive Protein 4.80 mg/dL (0.00-1.30) H 06/28/18 05:00 Total Protein 4.5 g/dL (6.3-8.2) L 07/01/18 04:39 Albumin 2.0 g/dL (3.9-5) L 07/01/18 04:39 Albumin/Globulin Ratio 0.8 % 07/01/18 04:39 Vitamin B1 <6 nmol/L (8-30) L 06/21/18 16:27 Vitamin B12 1598 pg/mL (211-911) H 06/20/18 20:53 25-OH Vitamin D Total 10 ng/mL (30-100) L 06/20/18 20:53 25-Hydroxy Vitamin D2 . 06/20/18 20:53 25-Hydroxy Vitamin D3 . 06/20/18 20:53 Folate 14.18 ng/mL (7.3-26.0) 06/20/18 20:53 TSH 1.540 mlU/mL (0.270-4.200) 06/27/18 09:29 Free T4 1.78 ng/dL (0.76-1.46) H 06/27/18 09:29 T3 (GILSON) 58 ng/dL (76-181) L 06/20/18 16:51 Urine Color Caryl (Yellow) 06/16/18 Unknown Urine Turbidity Clear (Clear) 06/16/18 Unknown Urine pH 5.0 (5.0-7.0) 06/16/18 Unknown Ur Specific [place] 1.025 (1.003-1.030) 06/16/18 Unknown Urine Protein 100 mg/dl mg/dL (Negative) 06/16/18 Unknown Urine Glucose (UA) 50 mg/dL (Negative) 06/16/18 Unknown Urine Ketones Neg mg/dL (Negative) 06/16/18 Unknown Urine Blood Neg (Negative) 06/16/18 Unknown Urine Nitrite Neg (Negative) 06/16/18 Unknown Urine Bilirubin Neg (Negative) 06/16/18 Unknown Urine Urobilinogen 4.0 mg/dL (<2.0) 06/16/18 Unknown Ur Leukocyte Esterase Neg (Negative) 06/16/18 Unknown Urine WBC (Auto) 4.0 /HPF (0.0-6.0) 06/16/18 Unknown Urine RBC (Auto) 5.0 /HPF (0.0-6.0) 06/16/18 Unknown U Epithel Cells (Auto) 7.0 /HPF (0-13.0) 06/16/18 Unknown Hyaline Casts 49 /LPF 06/16/18 Unknown Urine Mucus Few /HPF 06/16/18 Unknown Urine Osmolality 413 Mosm/kg 06/19/18 Unknown Urine Creatinine 61.7 mg/dL (0.1-20.0) H 06/19/18 Unknown Urine Total Protein 32 mg/dL (5-11.8) H 06/19/18 Unknown Salicylates 5.5 mg/dL (2.8-20.0) 06/16/18 21:43 Urine Opiates Screen Presumptive negative 06/16/18 Unknown Urine Methadone Screen Presumptive negative 06/16/18 Unknown Acetaminophen < 5.0 ug/mL (10.0-30.0) L 06/16/18 21:43 Ur Barbiturates Screen Presumptive negative 06/16/18 Unknown Ur Phencyclidine Scrn Presumptive negative 06/16/18 Unknown Ur Amphetamines Screen Presumptive negative 06/16/18 Unknown U Benzodiazepines Scrn Presumptive negative 06/16/18 Unknown Urine Cocaine Screen Presumptive negative 06/16/18 Unknown U Marijuana (THC) Screen Presumptive negative 06/16/18 Unknown Drugs of Abuse Note Disclamer 06/16/18 Unknown Plasma/Serum Alcohol < 0.01 % (0-0.07) 06/16/18 21:43 Thyroglobulin Antibody See scanned result 06/20/18 16:51 Thyroid Peroxidase Ab See scanned result 06/20/18 16:51 HIV 1&2 Antibody Rapid Non react (Non React) 06/21/18 16:27 HIV P24 Antigen Non react (Non React) 06/21/18 16:27 Active Medications - Current Medications Current Medications: Generic Name Dose Route Start Last Admin Trade Name Freq PRN Reason Stop Dose Admin Acetaminophen 650 mg 06/17/18 03:33 07/02/18 14:01 Tylenol PO 650 mg Q4H PRN Administration Fever >101 Albuterol/Ipratropium 1 ampul 06/27/18 14:00 07/02/18 09:01 Duoneb *Not For Prn Use* IH 1 ampul TIDRT JEANETTE Administration Apixaban 5 mg 06/20/18 16:00 07/02/18 10:09 Eliquis PO 5 mg Q12HR JEANETTE Administration Protocol Atorvastatin Calcium 20 mg 06/19/18 22:00 07/01/18 22:13 Lipitor PO 20 mg QHS JEANETTE Administration Dextrose 50 ml 07/01/18 11:50 D50w (25gm) Syringe IV PRN PRN Hypoglycemia Digoxin 0.125 mg 06/24/18 17:00 07/02/18 10:12 Lanoxin PO 0.125 mg DAILY@1700 JEANETTE Administration Famotidine 20 mg 06/27/18 12:00 07/02/18 10:09 Pepcid PO 20 mg DAILY JEANETTE Administration Dobutamine HCl/Dextrose 500 mg in 250 mls @ 5.918 mls/hr 06/27/18 13:00 07/02/18 12:21 Dobutrex Drip 500mg/D5w 250ml IV 5 mcg/kg/min DIRECT JEANETTE 11.835 mls/hr Administration 2.5 MCG/KG/MIN Dextrose/Sodium Chloride 1,000 mls @ 42 mls/hr 06/30/18 17:00 06/30/18 16:59 D5ns IV 42 mls/hr DIRECT JEANETTE Administration Insulin Human Lispro 0 unit 07/01/18 16:30 07/02/18 12:21 Humalog SUB-Q Not Given ACHS JEANETTE Protocol Lactulose 20 gm 06/25/18 12:00 07/02/18 12:21 Cephulac PO 20 gm Q6HR JEANETTE Administration Metoprolol Tartrate 25 mg 06/25/18 09:00 07/02/18 10:12 Lopressor PO 25 mg Q8H JEANETTE Administration Ondansetron HCl 4 mg 06/17/18 03:24 Zofran IV Q8H PRN Nausea And Vomiting Sertraline HCl 50 mg 06/24/18 10:00 07/02/18 10:09 Zoloft PO 50 mg DAILY JEANETTE Administration Nutrition/Malnutrition Assess - Dietary Evaluation Nutrition/Malnutrition Findings: Nutrition Notes Start: 06/24/18 15 :14 Freq: Status: Active Protocol: Document 07/01/18 10:55 CP (Rec: 07/01/18 11:00 CP [id number]) Co-Sign 07/01/18 10:55 LP Nutrition Notes Need for Assessment generated from: MD Order Initial or Follow up Assessment Current Diagnosis Acute Kidney Injury, Hypertension,Heart Failure, Respiratory Failure Other Pertinent Diagnosis s/p cardiac arrest, psychosis, AMS Current Diet Mechanical Soft Labs/Tests K 3.5 POC BG 206 Pertinent Medications Reviewed Height 5 ft 5 in Weight 80.6 kg [place] Body Weight (kg) 56.81 BMI 29.5 Subjective/Other Information MD screen for poor oral intake . Per RN, pt has been consuming only 25% of meals and has had a poor appetite. Percent of energy/protein needs met: 33%/31% Burn Absent Trauma Absent #1 Nutrition Diagnosis Inadequate oral intake Diagnosis Progress(for reassessment Continues documentation) Is patient on ventilator? No Is Patient Ambulatory and/or Out of Bed No REE-([place]-St[place] Jeor-confined to bed) 3706.929 Calculation Used for Recommendations [place]-St Jeor Additional Notes Pro needs 1-1.2g/k-96 g/ day Fluid needs 1ml/kcall Nutrition Intervention Change Diet Order: Continue current Add Supplement/Snack (indicate name/kcal Ensure Enlive Flavor Rotate /protein ) BID Provides kCal: 700 Provides Protein (gm) 40 Goal #1 PO intake to meet at least 80% of energy and protein needs Anticipated Discharge Needs: Unable to determine at this time Follow-Up By: 07/04/18 Additional Comments F/U: PO/ONS intakes
[2018-07-02] MEDS ORDERED: K-DUR PO ONE (14:34)
--- NOTE | 2018-07-02 14:55 | Progress Note ---
Assessment and Plan - Patient Problems (1) Acute on chronic systolic heart failure Current Visit: No Status: Acute Plan to address problem: Medical therapy for end-stage cardiomyopathy and chronic systolic heart failure. Subjective Date of service: 07/02/18 Principal diagnosis: altered mental status, psychosis, chronic systolic heart failure, Interval history: Patient is awake, comfortable and not acute distress. Objective Vital Signs Temp Pulse Pulse Pulse Resp Resp BP 07/02/18 14:53 07/02/18 14:46 97 H 23 07/02/18 10:11 96 H 120/60 07/02/18 09:11 86 18 07/02/18 09:02 07/02/18 09:01 81 18 07/02/18 07:00 82 13 153/56 07/02/18 06:00 85 17 110/68 07/02/18 05:00 84 16 110/68 07/02/18 04:00 97.8 F 86 83 12 108/66 07/02/18 03:00 83 18 111/54 07/02/18 02:00 86 18 111/54 07/02/18 01:00 98 H 18 124/94 07/02/18 00:30 99 H 16 124/94 07/02/18 00:00 98.8 F 107 H 92 H 17 124/94 07/01/18 23:00 100 H 17 113/83 07/01/18 22:00 102 H 19 113/83 07/01/18 21:35 69 17 07/01/18 21:25 98 H 18 07/01/18 21:00 101 H 19 118/57 07/01/18 20:14 105 H 23 83/62 07/01/18 20:00 98.1 F 105 H 98 H 26 H 83/62 07/01/18 19:00 102 H 15 123/57 07/01/18 18:00 98 H 12 93/52 07/01/18 17:00 90 19 123/93 07/01/18 16:00 98.4 F 89 91 H 14 81/34 07/01/18 15:55 90 16 07/01/18 15:10 88 16 07/01/18 15:00 88 12 81/34 Pulse Ox 07/02/18 14:53 95 07/02/18 14:46 07/02/18 10:11 07/02/18 09:11 07/02/18 09:02 100 07/02/18 09:01 07/02/18 07:00 100 07/02/18 06:00 100 07/02/18 05:00 100 07/02/18 04:00 100 07/02/18 03:00 100 07/02/18 02:00 100 07/02/18 01:00 07/02/18 00:30 100 07/02/18 00:00 100 07/01/18 23:00 07/01/18 22:00 100 07/01/18 21:35 07/01/18 21:25 07/01/18 21:00 100 07/01/18 20:14 96 07/01/18 20:00 98 07/01/18 19:00 93 07/01/18 18:00 07/01/18 17:00 100 07/01/18 16:00 54 L 07/01/18 15:55 07/01/18 15:10 07/01/18 15:00 92 - Physical Examination General: No Apparent Distress HEENT: Positive: PERRL Neck: Positive: trachea midline Cardiac: Positive: Reg Rate and Rhythm Lungs: Positive: Decreased Breath Sounds Neuro: Positive: Grossly Intact Abdomen: Positive: Unremarkable Skin: Positive: Clear Extremities: Absent: edema - Labs and Meds CBC 07/02/18 Range/Units 05:23 WBC 8.6 (4.5-11.0) K/mm3 RBC 4.67 (3.65-5.03) M/mm3 Hgb 11.8 (10.1-14.3) gm/dl Hct 35.9 (30.3-42.9) % Plt Count 78 L (140-440) K/mm3 Comprehensive Metabolic Panel 07/02/18 Range/Units 05:23 Sodium 135 L (137-145) mmol/L Potassium 3.4 L (3.6-5.0) mmol/L Chloride 99.1 (98-107) mmol/L Carbon Dioxide 28 (22-30) mmol/L BUN 12 (7-17) mg/dL Creatinine 0.6 L (0.7-1.2) mg/dL Glucose 98 (65-100) mg/dL Calcium 8.3 L (8.4-10.2) mg/dL - Allied health notes Allied health notes reviewed: nursing
--- NOTE | 2018-07-02 18:38 | Progress Note ---
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 Bili Likely congestive hepatopathy, Severe protein calorie malnutrition Hypokalemia - continue bronchodilators with pulmonary hygiene per RT - continue Supplemental oxygen keep O2 sat> 90% - continue aspiration precautions - continue Eliquis - continue Stress ulcer prophylaxis with Pepcid - continue glycemic control with accuchecks and SSI with target BG 140 - 180 mg/dl - Avoid hypoglycemia - Correct electrolytes as indicated - PT/OT/ROM exercises as tolerated - mobility priotocol for pressure ulcer prophylaxis - continue other care per attending / other consultants .... re-evaluate in am & prn Subjective Date of service: 07/02/18 Principal diagnosis: altered mental status, psychosis, chronic systolic heart failure, Interval history: Patient is seen today for: Cardiopulmonary arrest; Acute hypoxic respiratory failure; Hypoglycemia; Altered mental status, with acute encephalopathy; AMY; SIRS; Shock syndrome Seen and examined at bedside; 24hour events reviewed; nursing and respiratory care staff consulted; no adverse overnight events reported to me; resting in bed; extubated and doing decently well; remains on supplemental oxygen; tolerating soft diet; denies acute chest pains or palpitations; No N/V/F/C; remains on supplemental oxygen Objective Vital Signs - 12hr 07/02/18 07/02/18 07/02/18 07:00 08:00 09:00 Temperature 98.3 F Pulse Rate 82 83 85 Pulse Rate [ 94 H From Monitor] Pulse Rate [ Throughout] Respiratory 13 18 16 Rate Respiratory Rate [ Throughout] Blood Pressure 153/56 146/61 128/66 O2 Sat by Pulse 100 100 100 Oximetry 07/02/18 07/02/18 07/02/18 09:01 09:02 09:11 Temperature Pulse Rate Pulse Rate [ From Monitor] Pulse Rate [ 81 86 Throughout] Respiratory Rate Respiratory 18 18 Rate [ Throughout] Blood Pressure O2 Sat by Pulse 100 Oximetry 07/02/18 07/02/18 07/02/18 10:00 10:11 11:00 Temperature Pulse Rate 93 H 96 H 94 H Pulse Rate [ From Monitor] Pulse Rate [ Throughout] Respiratory 13 22 Rate Respiratory Rate [ Throughout] Blood Pressure 128/66 120/60 135/69 O2 Sat by Pulse 100 100 Oximetry 07/02/18 07/02/18 07/02/18 12:00 13:00 14:00 Temperature 98.2 F Pulse Rate 94 H 82 98 H Pulse Rate [ 96 H From Monitor] Pulse Rate [ Throughout] Respiratory 21 22 28 H Rate Respiratory Rate [ Throughout] Blood Pressure 120/60 125/73 118/70 O2 Sat by Pulse 100 100 Oximetry 07/02/18 07/02/18 07/02/18 14:46 14:53 14:56 Temperature Pulse Rate Pulse Rate [ From Monitor] Pulse Rate [ 97 H 98 H Throughout] Respiratory Rate Respiratory 23 18 Rate [ Throughout] Blood Pressure O2 Sat by Pulse 95 Oximetry 07/02/18 07/02/18 07/02/18 15:00 16:00 17:20 Temperature Pulse Rate 100 H 92 H 95 H Pulse Rate [ 94 H From Monitor] Pulse Rate [ Throughout] Respiratory 23 17 Rate Respiratory Rate [ Throughout] Blood Pressure 123/69 129/57 129/56 O2 Sat by Pulse 100 Oximetry 07/02/18 17:21 Temperature Pulse Rate 97 H Pulse Rate [ From Monitor] Pulse Rate [ Throughout] Respiratory Rate Respiratory Rate [ Throughout] Blood Pressure 129/56 O2 Sat by Pulse Oximetry Constitutional: no acute distress, alert, other (elderly looking AAF normocephalic and atraumatic with normal resp effort at rest) Eyes: non-icteric, other (Pupils 4mm, sluggichly reacting to light) ENT: oropharynx dry, other (extubated) Neck: supple, no lymphadenopathy, no JVD, other (no thyromegaly) Effort: normal Ascultation: Bilateral: diminished breath sounds, rales Percussion: Bilateral: not dull Cardiovascular: irregular rhythm, other (S1,S2,) Gastrointestinal: normoactive bowel sounds, soft, non-tender, non-distended Integumentary: rash (exematoid rash to upper chest) Extremities: no cyanosis, no edema, pulses normal, no ischemia or petechiae Neurologic: normal mental status, non-focal exam (grossly), pupils equal and round, motor strength normal and Psychiatric: mood appropriate, affect normal CBC and BMP: 07/03/18 08:14 07/03/18 08:14 ABG, PT/INR, D-dimer: ABG POC ABG pH 7.552 (7.35-7.45) H 06/28/18 10:53 POC ABG pCO2 40.8 (35-45) 06/28/18 10:53 POC ABG pO2 83 (80-105) 06/28/18 10:53 POC ABG HCO3 35.9 (22-26 mml/L) 06/28/18 10:53 POC ABG Total CO2 37 (23-27mmol/L) 06/28/18 10:53 POC ABG O2 Sat 97 06/28/18 10:53 Abnormal lab findings: Abnormal Labs 06/16/18 06/16/18 06/16/18 21:05 21:43 21:43 WBC RBC Hgb Hct MCV MCH RDW Plt Count Lymph % (Auto) [place] % (Auto) Lymph # [place] # Seg Neutrophils % Seg Neuts % (Manual) Lymphocytes % (Manual) Seg Neutrophils # Seg Neutrophils # Man Lymphocytes # (Manual) Monocytes # (Manual) POC ABG pH POC ABG pCO2 POC ABG pO2 Sodium 129 L Potassium Chloride 95.3 L Carbon Dioxide 14 L BUN 23 H Creatinine Glucose 146 H POC Glucose < 40 L Lactic Acid Uric Acid Calcium Magnesium Total Bilirubin Direct Bilirubin AST ALT Alkaline Phosphatase Ammonia C-Reactive Protein Total Protein Albumin Vitamin B1 Vitamin B12 25-OH Vitamin D Total Free T4 T3 (GILSON) Urine Creatinine Urine Total Protein Acetaminophen < 5.0 L 06/16/18 06/16/18 06/16/18 21:43 21:43 22:27 WBC RBC 5.70 H Hgb Hct 44.6 H MCV 78 L MCH 25 L RDW 18.7 H Plt Count Lymph % (Auto) [place] % (Auto) Lymph # [place] # Seg Neutrophils % 78.8 H Seg Neuts % (Manual) Lymphocytes % (Manual) Seg Neutrophils # Seg Neutrophils # Man Lymphocytes # (Manual) Monocytes # (Manual) POC ABG pH POC ABG pCO2 POC ABG pO2 Sodium Potassium Chloride Carbon Dioxide BUN Creatinine Glucose POC Glucose 121 H Lactic Acid Uric Acid Calcium Magnesium Total Bilirubin Direct Bilirubin AST ALT Alkaline Phosphatase Ammonia C-Reactive Protein Total Protein Albumin Vitamin B1 Vitamin B12 25-OH Vitamin D Total Free T4 1.87 H T3 (GILSON) Urine Creatinine Urine Total Protein Acetaminophen 06/16/18 06/16/18 06/17/18 22:33 23:43 03:56 WBC RBC Hgb Hct MCV MCH RDW Plt Count Lymph % (Auto) [place] % (Auto) Lymph # [place] # Seg Neutrophils % Seg Neuts % (Manual) Lymphocytes % (Manual) Seg Neutrophils # Seg Neutrophils # Man Lymphocytes # (Manual) Monocytes # (Manual) POC ABG pH POC ABG pCO2 POC ABG pO2 Sodium Potassium Chloride Carbon Dioxide BUN Creatinine Glucose POC Glucose Lactic Acid 4.40 H* 4.30 H* 3.10 H* Uric Acid Calcium Magnesium Total Bilirubin Direct Bilirubin AST ALT Alkaline Phosphatase Ammonia C-Reactive Protein Total Protein Albumin Vitamin B1 Vitamin B12 25-OH Vitamin D Total Free T4 T3 (GILSON) Urine Creatinine Urine Total Protein Acetaminophen 06/17/18 06/17/18 06/17/18 08:35 08:40 11:00 WBC RBC Hgb Hct MCV MCH RDW Plt Count Lymph % (Auto) [place] % (Auto) Lymph # [place] # Seg Neutrophils % Seg Neuts % (Manual) Lymphocytes % (Manual) Seg Neutrophils # Seg Neutrophils # Man Lymphocytes # (Manual) Monocytes # (Manual) POC ABG pH POC ABG pCO2 POC ABG pO2 Sodium Potassium Chloride Carbon Dioxide BUN Creatinine Glucose POC Glucose 56 L Lactic Acid 2.70 H* 3.40 H* Uric Acid Calcium Magnesium Total Bilirubin Direct Bilirubin AST ALT Alkaline Phosphatase Ammonia C-Reactive Protein Total Protein Albumin Vitamin B1 Vitamin B12 25-OH Vitamin D Total Free T4 T3 (GILSON) Urine Creatinine Urine Total Protein Acetaminophen 06/17/18 06/17/18 06/17/18 11:00 11:00 11:00 WBC 11.9 H RBC 5.25 H Hgb Hct MCV MCH 25 L RDW 18.6 H Plt Count Lymph % (Auto) [place] % (Auto) Lymph # [place] # Seg Neutrophils % Seg Neuts % (Manual) Lymphocytes % (Manual) Seg Neutrophils # Seg Neutrophils # Man Lymphocytes # (Manual) Monocytes # (Manual) POC ABG pH POC ABG pCO2 POC ABG pO2 Sodium 128 L Potassium Chloride 95.6 L Carbon Dioxide 15 L BUN 22 H Creatinine Glucose 110 H POC Glucose Lactic Acid Uric Acid Calcium 8.3 L Magnesium Total Bilirubin Direct Bilirubin 1.6 H AST 66 H ALT Alkaline Phosphatase 178 H Ammonia C-Reactive Protein Total Protein 4.7 L Albumin 2.4 L Vitamin B1 Vitamin B12 25-OH Vitamin D Total Free T4 T3 (GILSON) Urine Creatinine Urine Total Protein Acetaminophen 06/17/18 06/17/18 06/17/18 15:08 15:08 23:00 WBC RBC Hgb Hct MCV MCH RDW Plt Count Lymph % (Auto) [place] % (Auto) Lymph # [place] # Seg Neutrophils % Seg Neuts % (Manual) Lymphocytes % (Manual) Seg Neutrophils # Seg Neutrophils # Man Lymphocytes # (Manual) Monocytes # (Manual) POC ABG pH POC ABG pCO2 POC ABG pO2 Sodium Potassium Chloride Carbon Dioxide BUN Creatinine Glucose POC Glucose Lactic Acid 4.00 H* Uric Acid Calcium Magnesium Total Bilirubin Direct Bilirubin AST ALT Alkaline Phosphatase Ammonia 10.0 L C-Reactive Protein Total Protein Albumin Vitamin B1 Vitamin B12 25-OH Vitamin D Total Free T4 1.53 H T3 (GILSON) Urine Creatinine Urine Total Protein Acetaminophen 06/18/18 06/18/18 06/18/18 08:59 08:59 12:49 WBC RBC 5.29 H Hgb Hct MCV 78 L MCH 25 L RDW 18.4 H Plt Count Lymph % (Auto) [place] % (Auto) Lymph # [place] # Seg Neutrophils % Seg Neuts % (Manual) Lymphocytes % (Manual) Seg Neutrophils # Seg Neutrophils # Man Lymphocytes # (Manual) Monocytes # (Manual) POC ABG pH POC ABG pCO2 POC ABG pO2 Sodium 128 L Potassium 5.9 H D Chloride 96.1 L Carbon Dioxide 20 L BUN 22 H Creatinine Glucose POC Glucose 60 L Lactic Acid Uric Acid Calcium Magnesium Total Bilirubin Direct Bilirubin AST ALT Alkaline Phosphatase Ammonia C-Reactive Protein Total Protein Albumin Vitamin B1 Vitamin B12 25-OH Vitamin D Total Free T4 T3 (GILSON) Urine Creatinine Urine Total Protein Acetaminophen 06/18/18 06/19/18 06/19/18 21:28 12:14 13:23 WBC RBC Hgb Hct MCV MCH RDW Plt Count Lymph % (Auto) [place] % (Auto) Lymph # [place] # Seg Neutrophils % Seg Neuts % (Manual) Lymphocytes % (Manual) Seg Neutrophils # Seg Neutrophils # Man Lymphocytes # (Manual) Monocytes # (Manual) POC ABG pH POC ABG pCO2 POC ABG pO2 Sodium 122 L Potassium 5.4 H Chloride 95.0 L Carbon Dioxide 13 L D BUN 21 H Creatinine Glucose 119 H POC Glucose 114 H Lactic Acid Uric Acid Calcium 8.3 L Magnesium Total Bilirubin Direct Bilirubin AST ALT Alkaline Phosphatase Ammonia C-Reactive Protein Total Protein Albumin Vitamin B1 Vitamin B12 25-OH Vitamin D Total Free T4 T3 (GILSON) Urine Creatinine Urine Total Protein Acetaminophen 03/17/19 03/17/19 03/17/19 14:47 16:38 22:42 WBC RBC 5.51 H Hgb Hct 45.3 H MCV MCH 25 L RDW 18.6 H Plt Count Lymph % (Auto) [place] % (Auto) Lymph # [place] # Seg Neutrophils % Seg Neuts % (Manual) Lymphocytes % (Manual) Seg Neutrophils # Seg Neutrophils # Man Lymphocytes # (Manual) Monocytes # (Manual) POC ABG pH POC ABG pCO2 POC ABG pO2 Sodium Potassium Chloride Carbon Dioxide BUN Creatinine Glucose POC Glucose 108 H 49 L Lactic Acid Uric Acid Calcium Magnesium Total Bilirubin Direct Bilirubin AST ALT Alkaline Phosphatase Ammonia C-Reactive Protein Total Protein Albumin Vitamin B1 Vitamin B12 25-OH Vitamin D Total Free T4 T3 (GILSON) Urine Creatinine Urine Total Protein Acetaminophen 06/19/18 06/20/18 06/20/18 Unknown 07:31 16:51 WBC RBC Hgb Hct MCV MCH RDW Plt Count Lymph % (Auto) [place] % (Auto) Lymph # [place] # Seg Neutrophils % Seg Neuts % (Manual) Lymphocytes % (Manual) Seg Neutrophils # Seg Neutrophils # Man Lymphocytes # (Manual) Monocytes # (Manual) POC ABG pH POC ABG pCO2 POC ABG pO2 Sodium 132 L D Potassium Chloride 94.3 L Carbon Dioxide BUN 20 H Creatinine Glucose POC Glucose Lactic Acid Uric Acid 8.6 H Calcium Magnesium 1.30 L Total Bilirubin Direct Bilirubin AST ALT Alkaline Phosphatase Ammonia C-Reactive Protein Total Protein Albumin Vitamin B1 Vitamin B12 25-OH Vitamin D Total Free T4 T3 (GILSON) 58 L Urine Creatinine 61.7 H Urine Total Protein 32 H Acetaminophen 06/20/18 06/20/18 06/21/18 20:53 20:53 16:27 WBC RBC Hgb Hct MCV MCH RDW Plt Count Lymph % (Auto) [place] % (Auto) Lymph # [place] # Seg Neutrophils % Seg Neuts % (Manual) Lymphocytes % (Manual) Seg Neutrophils # Seg Neutrophils # Man Lymphocytes # (Manual) Monocytes # (Manual) POC ABG pH POC ABG pCO2 POC ABG pO2 Sodium Potassium Chloride Carbon Dioxide BUN Creatinine Glucose POC Glucose Lactic Acid Uric Acid 9.2 H Calcium Magnesium Total Bilirubin Direct Bilirubin AST ALT Alkaline Phosphatase Ammonia C-Reactive Protein Total Protein Albumin Vitamin B1 Vitamin B12 1598 H 25-OH Vitamin D Total 10 L Free T4 T3 (GILSON) Urine Creatinine Urine Total Protein Acetaminophen 06/21/18 06/21/18 06/21/18 16:27 16:27 16:27 WBC RBC 5.26 H Hgb Hct MCV 77 L MCH 26 L RDW 17.7 H Plt Count Lymph % (Auto) [place] % (Auto) Lymph # [place] # Seg Neutrophils % Seg Neuts % (Manual) Lymphocytes % (Manual) Seg Neutrophils # Seg Neutrophils # Man Lymphocytes # (Manual) Monocytes # (Manual) POC ABG pH POC ABG pCO2 POC ABG pO2 Sodium 130 L Potassium Chloride 95.6 L Carbon Dioxide BUN 24 H Creatinine Glucose POC Glucose Lactic Acid Uric Acid Calcium Magnesium Total Bilirubin Direct Bilirubin AST ALT Alkaline Phosphatase Ammonia C-Reactive Protein Total Protein Albumin Vitamin B1 <6 L Vitamin B12 25-OH Vitamin D Total Free T4 T3 (GILSON) Urine Creatinine Urine Total Protein Acetaminophen 06/21/18 06/22/18 06/23/18 21:44 21:42 14:54 WBC RBC 5.07 H Hgb Hct MCV 78 L MCH 25 L RDW 18.5 H Plt Count Lymph % (Auto) [place] % (Auto) 12.3 H Lymph # 1.0 L [place] # Seg Neutrophils % Seg Neuts % (Manual) Lymphocytes % (Manual) Seg Neutrophils # Seg Neutrophils # Man Lymphocytes # (Manual) Monocytes # (Manual) POC ABG pH POC ABG pCO2 POC ABG pO2 Sodium Potassium Chloride Carbon Dioxide BUN Creatinine Glucose POC Glucose 126 H 114 H Lactic Acid Uric Acid Calcium Magnesium Total Bilirubin Direct Bilirubin AST ALT Alkaline Phosphatase Ammonia C-Reactive Protein Total Protein Albumin Vitamin B1 Vitamin B12 25-OH Vitamin D Total Free T4 T3 (GILSON) Urine Creatinine Urine Total Protein Acetaminophen 06/23/18 06/25/18 06/25/18 14:54 00:00 00:00 WBC 3.6 L RBC 5.31 H Hgb Hct MCV 77 L MCH 26 L RDW 19.0 H Plt Count Lymph % (Auto) [place] % (Auto) 10.2 H Lymph # [place] # Seg Neutrophils % Seg Neuts % (Manual) Lymphocytes % (Manual) Seg Neutrophils # Seg Neutrophils # Man Lymphocytes # (Manual) Monocytes # (Manual) POC ABG pH POC ABG pCO2 POC ABG pO2 Sodium 132 L 131 L Potassium 3.5 L Chloride 91.5 L 93.5 L Carbon Dioxide BUN 19 H 21 H Creatinine Glucose POC Glucose Lactic Acid Uric Acid Calcium 8.1 L Magnesium Total Bilirubin 2.80 H 2.70 H Direct Bilirubin AST 52 H 81 H ALT Alkaline Phosphatase 231 H 243 H Ammonia C-Reactive Protein Total Protein 5.5 L 5.5 L Albumin 2.8 L 2.7 L Vitamin B1 Vitamin B12 25-OH Vitamin D Total Free T4 T3 (GILSON) Urine Creatinine Urine Total Protein Acetaminophen 06/25/18 06/25/18 06/25/18 16:02 16:02 16:18 WBC 3.9 L RBC 5.78 H Hgb 14.6 H Hct 45.4 H MCV MCH 25 L RDW 19.2 H Plt Count Lymph % (Auto) [place] % (Auto) Lymph # [place] # Seg Neutrophils % Seg Neuts % (Manual) Lymphocytes % (Manual) Seg Neutrophils # Seg Neutrophils # Man Lymphocytes # (Manual) 1.1 L Monocytes # (Manual) POC ABG pH POC ABG pCO2 POC ABG pO2 Sodium 131 L Potassium Chloride 90.0 L Carbon Dioxide BUN 25 H Creatinine 1.4 H Glucose POC Glucose Lactic Acid 4.00 H* Uric Acid Calcium Magnesium Total Bilirubin 3.10 H Direct Bilirubin AST 68 H ALT Alkaline Phosphatase 296 H Ammonia C-Reactive Protein Total Protein 6.1 L Albumin 3.3 L Vitamin B1 Vitamin B12 25-OH Vitamin D Total Free T4 T3 (GILSON) Urine Creatinine Urine Total Protein Acetaminophen 06/25/18 06/26/18 06/26/18 21:06 11:33 11:37 WBC RBC Hgb Hct MCV MCH 26 L RDW 19.2 H Plt Count 139 L Lymph % (Auto) [place] % (Auto) Lymph # [place] # Seg Neutrophils % Seg Neuts % (Manual) 85.0 H Lymphocytes % (Manual) 6.0 L Seg Neutrophils # Seg Neutrophils # Man 8.0 H Lymphocytes # (Manual) 0.6 L Monocytes # (Manual) POC ABG pH POC ABG pCO2 POC ABG pO2 Sodium Potassium Chloride Carbon Dioxide BUN Creatinine Glucose POC Glucose < 40 L Lactic Acid 6.40 H* Uric Acid Calcium Magnesium Total Bilirubin Direct Bilirubin AST ALT Alkaline Phosphatase Ammonia C-Reactive Protein Total Protein Albumin Vitamin B1 Vitamin B12 25-OH Vitamin D Total Free T4 T3 (GILSON) Urine Creatinine Urine Total Protein Acetaminophen 06/26/18 06/26/18 06/26/18 11:37 11:51 11:59 WBC RBC Hgb Hct MCV MCH RDW Plt Count Lymph % (Auto) [place] % (Auto) Lymph # [place] # Seg Neutrophils % Seg Neuts % (Manual) Lymphocytes % (Manual) Seg Neutrophils # Seg Neutrophils # Man Lymphocytes # (Manual) Monocytes # (Manual) POC ABG pH 7.029 L POC ABG pCO2 POC ABG pO2 73 L Sodium 129 L Potassium Chloride 87.0 L Carbon Dioxide 11 L D BUN 31 H Creatinine 1.9 H Glucose 206 H POC Glucose 253 H Lactic Acid Uric Acid Calcium 7.9 L Magnesium Total Bilirubin 2.90 H Direct Bilirubin AST 98 H ALT Alkaline Phosphatase 196 H Ammonia C-Reactive Protein Total Protein 4.3 L D Albumin 2.2 L Vitamin B1 Vitamin B12 25-OH Vitamin D Total Free T4 T3 (GILSON) Urine Creatinine Urine Total Protein Acetaminophen 06/26/18 06/26/18 06/26/18 14:54 15:08 15:10 WBC 14.2 H RBC 5.66 H Hgb 14.5 H Hct 45.6 H D MCV MCH 26 L RDW 19.4 H Plt Count Lymph % (Auto) [place] % (Auto) Lymph # [place] # Seg Neutrophils % Seg Neuts % (Manual) 88.0 H Lymphocytes % (Manual) 5.0 L Seg Neutrophils # Seg Neutrophils # Man 12.5 H Lymphocytes # (Manual) 0.7 L Monocytes # (Manual) 0.9 H POC ABG pH POC ABG pCO2 POC ABG pO2 Sodium Potassium Chloride Carbon Dioxide BUN Creatinine Glucose POC Glucose 172 H Lactic Acid 11.90 H* Uric Acid Calcium Magnesium Total Bilirubin Direct Bilirubin AST ALT Alkaline Phosphatase Ammonia C-Reactive Protein Total Protein Albumin Vitamin B1 Vitamin B12 25-OH Vitamin D Total Free T4 T3 (GILSON) Urine Creatinine Urine Total Protein Acetaminophen 06/26/18 06/26/18 06/26/18 16:01 18:47 20:55 WBC RBC Hgb Hct MCV MCH RDW Plt Count Lymph % (Auto) [place] % (Auto) Lymph # [place] # Seg Neutrophils % Seg Neuts % (Manual) Lymphocytes % (Manual) Seg Neutrophils # Seg Neutrophils # Man Lymphocytes # (Manual) Monocytes # (Manual) POC ABG pH POC ABG pCO2 34.0 L POC ABG pO2 Sodium Potassium Chloride Carbon Dioxide BUN Creatinine Glucose POC Glucose 183 H 131 H Lactic Acid Uric Acid Calcium Magnesium Total Bilirubin Direct Bilirubin AST ALT Alkaline Phosphatase Ammonia C-Reactive Protein Total Protein Albumin Vitamin B1 Vitamin B12 25-OH Vitamin D Total Free T4 T3 (GILSON) Urine Creatinine Urine Total Protein Acetaminophen 06/26/18 06/27/18 06/27/18 21:55 09:29 09:29 WBC RBC Hgb Hct MCV MCH RDW Plt Count Lymph % (Auto) [place] % (Auto) Lymph # [place] # Seg Neutrophils % Seg Neuts % (Manual) Lymphocytes % (Manual) Seg Neutrophils # Seg Neutrophils # Man Lymphocytes # (Manual) Monocytes # (Manual) POC ABG pH POC ABG pCO2 POC ABG pO2 Sodium 135 L 135 L Potassium 3.5 L Chloride 91.7 L 91.2 L Carbon Dioxide BUN 35 H 37 H Creatinine 2.3 H 2.1 H Glucose 147 H 104 H POC Glucose Lactic Acid Uric Acid Calcium 8.3 L 8.1 L Magnesium Total Bilirubin 3.50 H Direct Bilirubin AST 218 H ALT 57 H Alkaline Phosphatase 197 H Ammonia C-Reactive Protein Total Protein 5.0 L Albumin 2.3 L Vitamin B1 Vitamin B12 25-OH Vitamin D Total Free T4 1.78 H T3 (GILSON) Urine Creatinine Urine Total Protein Acetaminophen 06/27/18 06/27/18 06/27/18 09:29 09:29 10:00 WBC 16.3 H RBC 5.44 H Hgb Hct MCV 76 L MCH 25 L RDW 18.3 H Plt Count Lymph % (Auto) [place] % (Auto) Lymph # [place] # Seg Neutrophils % Seg Neuts % (Manual) 91.0 H Lymphocytes % (Manual) 3.0 L Seg Neutrophils # Seg Neutrophils # Man 14.8 H Lymphocytes # (Manual) 0.5 L Monocytes # (Manual) 1.0 H POC ABG pH POC ABG pCO2 POC ABG pO2 Sodium Potassium Chloride Carbon Dioxide BUN Creatinine Glucose POC Glucose 106 H Lactic Acid 4.00 H* Uric Acid Calcium Magnesium Total Bilirubin Direct Bilirubin AST ALT Alkaline Phosphatase Ammonia C-Reactive Protein Total Protein Albumin Vitamin B1 Vitamin B12 25-OH Vitamin D Total Free T4 T3 (GILSON) Urine Creatinine Urine Total Protein Acetaminophen 06/27/18 06/27/18 06/27/18 11:51 12:50 13:39 WBC RBC Hgb Hct MCV MCH RDW Plt Count Lymph % (Auto) [place] % (Auto) Lymph # [place] # Seg Neutrophils % Seg Neuts % (Manual) Lymphocytes % (Manual) Seg Neutrophils # Seg Neutrophils # Man Lymphocytes # (Manual) Monocytes # (Manual) POC ABG pH 7.584 H POC ABG pCO2 32.8 L POC ABG pO2 109 H Sodium Potassium Chloride Carbon Dioxide BUN Creatinine Glucose POC Glucose 112 H Lactic Acid 3.20 H* Uric Acid Calcium Magnesium Total Bilirubin Direct Bilirubin AST ALT Alkaline Phosphatase Ammonia C-Reactive Protein Total Protein Albumin Vitamin B1 Vitamin B12 25-OH Vitamin D Total Free T4 T3 (GILSON) Urine Creatinine Urine Total Protein Acetaminophen 06/27/18 06/27/18 06/27/18 19:31 21:50 23:10 WBC RBC Hgb Hct MCV MCH RDW Plt Count Lymph % (Auto) [place] % (Auto) Lymph # [place] # Seg Neutrophils % Seg Neuts % (Manual) Lymphocytes % (Manual) Seg Neutrophils # Seg Neutrophils # Man Lymphocytes # (Manual) Monocytes # (Manual) POC ABG pH POC ABG pCO2 POC ABG pO2 Sodium Potassium Chloride Carbon Dioxide BUN Creatinine Glucose POC Glucose Lactic Acid 2.40 H* 2.30 H* 2.30 H* Uric Acid Calcium Magnesium Total Bilirubin Direct Bilirubin AST ALT Alkaline Phosphatase Ammonia C-Reactive Protein Total Protein Albumin Vitamin B1 Vitamin B12 25-OH Vitamin D Total Free T4 T3 (GILSON) Urine Creatinine Urine Total Protein Acetaminophen 06/28/18 06/28/18 06/28/18 02:35 05:00 05:00 WBC RBC Hgb Hct MCV MCH RDW Plt Count Lymph % (Auto) [place] % (Auto) Lymph # [place] # Seg Neutrophils % Seg Neuts % (Manual) Lymphocytes % (Manual) Seg Neutrophils # Seg Neutrophils # Man Lymphocytes # (Manual) Monocytes # (Manual) POC ABG pH POC ABG pCO2 POC ABG pO2 Sodium 134 L Potassium 2.6 L* D Chloride 92.3 L Carbon Dioxide 32 H BUN 34 H Creatinine 1.8 H Glucose 127 H POC Glucose Lactic Acid 2.20 H* 2.30 H* Uric Acid Calcium 7.5 L Magnesium Total Bilirubin 3.50 H Direct Bilirubin AST 226 H ALT 60 H Alkaline Phosphatase 172 H Ammonia C-Reactive Protein Total Protein 4.2 L Albumin 2.0 L Vitamin B1 Vitamin B12 25-OH Vitamin D Total Free T4 T3 (GILSON) Urine Creatinine Urine Total Protein Acetaminophen 06/28/18 06/28/18 06/28/18 05:00 08:30 08:30 WBC 15.7 H RBC Hgb Hct MCV 77 L MCH 25 L RDW 18.5 H Plt Count 112 L Lymph % (Auto) 6.0 L [place] % (Auto) 10.0 H Lymph # 0.9 L [place] # 1.6 H Seg Neutrophils % 83.4 H Seg Neuts % (Manual) Lymphocytes % (Manual) Seg Neutrophils # 13.1 H Seg Neutrophils # Man Lymphocytes # (Manual) Monocytes # (Manual) POC ABG pH POC ABG pCO2 POC ABG pO2 Sodium Potassium Chloride Carbon Dioxide BUN Creatinine Glucose POC Glucose Lactic Acid 2.40 H* Uric Acid Calcium Magnesium Total Bilirubin Direct Bilirubin AST ALT Alkaline Phosphatase Ammonia C-Reactive Protein 4.80 H Total Protein Albumin Vitamin B1 Vitamin B12 25-OH Vitamin D Total Free T4 T3 (GILSON) Urine Creatinine Urine Total Protein Acetaminophen 06/28/18 06/28/18 06/28/18 10:53 11:23 18:35 WBC RBC Hgb Hct MCV MCH RDW Plt Count Lymph % (Auto) [place] % (Auto) Lymph # [place] # Seg Neutrophils % Seg Neuts % (Manual) Lymphocytes % (Manual) Seg Neutrophils # Seg Neutrophils # Man Lymphocytes # (Manual) Monocytes # (Manual) POC ABG pH 7.552 H POC ABG pCO2 POC ABG pO2 Sodium Potassium 3.1 L Chloride Carbon Dioxide BUN Creatinine Glucose POC Glucose 122 H Lactic Acid Uric Acid Calcium Magnesium Total Bilirubin Direct Bilirubin AST ALT Alkaline Phosphatase Ammonia C-Reactive Protein Total Protein Albumin Vitamin B1 Vitamin B12 25-OH Vitamin D Total Free T4 T3 (GILSON) Urine Creatinine Urine Total Protein Acetaminophen 06/29/18 06/29/18 06/29/18 06:40 06:40 19:44 WBC 14.6 H RBC Hgb Hct MCV 77 L MCH 25 L RDW 19.3 H Plt Count 88 L Lymph % (Auto) [place] % (Auto) Lymph # [place] # Seg Neutrophils % Seg Neuts % (Manual) Lymphocytes % (Manual) Seg Neutrophils # Seg Neutrophils # Man Lymphocytes # (Manual) Monocytes # (Manual) POC ABG pH POC ABG pCO2 POC ABG pO2 Sodium Potassium 2.7 L* Chloride 95.3 L Carbon Dioxide 32 H BUN 25 H Creatinine Glucose 145 H POC Glucose 59 L Lactic Acid Uric Acid Calcium 7.9 L Magnesium Total Bilirubin 3.60 H Direct Bilirubin AST 213 H ALT Alkaline Phosphatase 176 H Ammonia C-Reactive Protein Total Protein 4.8 L Albumin 2.2 L Vitamin B1 Vitamin B12 25-OH Vitamin D Total Free T4 T3 (GILSON) Urine Creatinine Urine Total Protein Acetaminophen 06/29/18 06/30/18 06/30/18 20:43 02:37 04:45 WBC RBC Hgb Hct MCV MCH RDW Plt Count Lymph % (Auto) [place] % (Auto) Lymph # [place] # Seg Neutrophils % Seg Neuts % (Manual) Lymphocytes % (Manual) Seg Neutrophils # Seg Neutrophils # Man Lymphocytes # (Manual) Monocytes # (Manual) POC ABG pH POC ABG pCO2 POC ABG pO2 Sodium Potassium 3.1 L 2.8 L* Chloride Carbon Dioxide 31 H BUN 18 H Creatinine Glucose POC Glucose 59 L Lactic Acid Uric Acid Calcium 8.0 L Magnesium Total Bilirubin 3.70 H Direct Bilirubin AST 216 H ALT 63 H Alkaline Phosphatase 163 H Ammonia C-Reactive Protein Total Protein 4.5 L Albumin 2.1 L Vitamin B1 Vitamin B12 25-OH Vitamin D Total Free T4 T3 (GILSON) Urine Creatinine Urine Total Protein Acetaminophen 06/30/18 06/30/18 07/01/18 04:45 06:24 04:39 WBC 12.1 H RBC Hgb Hct MCV 78 L 77 L MCH 25 L 25 L RDW 19.0 H 19.3 H Plt Count 91 L 77 L Lymph % (Auto) [place] % (Auto) Lymph # [place] # Seg Neutrophils % Seg Neuts % (Manual) Lymphocytes % (Manual) Seg Neutrophils # Seg Neutrophils # Man Lymphocytes # (Manual) Monocytes # (Manual) POC ABG pH POC ABG pCO2 POC ABG pO2 Sodium Potassium Chloride Carbon Dioxide BUN Creatinine Glucose POC Glucose 63 L Lactic Acid Uric Acid Calcium Magnesium Total Bilirubin Direct Bilirubin AST ALT Alkaline Phosphatase Ammonia C-Reactive Protein Total Protein Albumin Vitamin B1 Vitamin B12 25-OH Vitamin D Total Free T4 T3 ([facility]ILSON) Urine Creatinine Urine Total Protein Acetaminophen 07/01/18 07/01/18 07/02/18 04:39 11:12 05:23 WBC RBC Hgb Hct MCV 77 L MCH 25 L RDW 19.2 H Plt Count 78 L Lymph % (Auto) [place] % (Auto) Lymph # [place] # Seg Neutrophils % Seg Neuts % (Manual) Lymphocytes % (Manual) Seg Neutrophils # Seg Neutrophils # Man Lymphocytes # (Manual) Monocytes # (Manual) POC ABG pH POC ABG pCO2 POC ABG pO2 Sodium Potassium 3.5 L D Chloride Carbon Dioxide BUN Creatinine Glucose 109 H POC Glucose 206 H Lactic Acid Uric Acid Calcium 8.1 L Magnesium Total Bilirubin 3.90 H Direct Bilirubin AST 163 H ALT 60 H Alkaline Phosphatase 166 H Ammonia C-Reactive Protein Total Protein 4.5 L Albumin 2.0 L Vitamin B1 Vitamin B12 25-OH Vitamin D Total Free T4 T3 ([facility]IL[facility]) Urine Creatinine Urine Total Protein Acetaminophen 07/02/18 07/02/18 05:23 12:18 WBC RBC Hgb Hct MCV MCH RDW Plt Count Lymph % (Auto) [place] % (Auto) Lymph # [place] # Seg Neutrophils % Seg Neuts % (Manual) Lymphocytes % (Manual) Seg Neutrophils # Seg Neutrophils # Man Lymphocytes # (Manual) Monocytes # (Manual) POC ABG pH POC ABG pCO2 POC ABG pO2 Sodium 135 L Potassium 3.4 L Chloride Carbon Dioxide BUN Creatinine 0.6 L Glucose POC Glucose 144 H Lactic Acid Uric Acid Calcium 8.3 L Magnesium Total Bilirubin Direct Bilirubin AST ALT Alkaline Phosphatase Ammonia C-Reactive Protein Total Protein Albumin Vitamin B1 Vitamin B12 25-OH Vitamin D Total Free T4 T3 ([facility]IL[facility]) Urine Creatinine Urine Total Protein Acetaminophen Allied health notes reviewed: nursing
[2018-07-03] MEDS: CEPHULAC PO SCH ×4 (00:24→17:09)
[2018-07-03] MEDS: LOPRESSOR PO SCH ×3 (01:19→16:13)
[2018-07-03] MEDS: HumaLOG SUB-Q SCH ×4 (07:30→21:28)
[2018-07-03] MEDS: DUONEB *Not for PRN Use IH SCH ×3 (08:10→21:51)
[2018-07-03 09:07] LABS: BUN/Creatinine Ratio 20; Blood Urea Nitrogen 10 mg/dL (7-17); Calcium 8.2 mg/dL (8.4-10.2); Hemolysis Index 3
[2018-07-03 09:10] LABS: Hematocrit 34.4 % (30.3-42.9); Hemoglobin 11.5 gm/dl (10.1-14.3); Mean Corpuscular HGB Conc 33 % (30-34); Mean Corpuscular Volume 76 fl (79-97); Red Blood Count 4.51 M/mm3 (3.65-5.03)
[2018-07-03 09:15] LABS: Platelet Count 84 K/mm3 (140-440)
[2018-07-03] MEDS: ELIQUIS PO SCH (10:14)
[2018-07-03] MEDS: PEPCID PO SCH (10:14)
[2018-07-03] MEDS: ZOLOFT PO SCH (10:14)
--- NOTE | 2018-07-03 11:11 | Progress Note ---
Assessment and Plan - Patient Problems (1) Hyponatremia with decreased serum osmolality Current Visit: Yes Status: Acute Plan to address problem: Likely in the setting of fluid overload. Continues on diuretic regimen along with dobutamin gtt. Cardiology following, now transferred out to telemetry. Overall serum sodium levels are stable (2) Fluid overload Current Visit: Yes Status: Chronic Qualifiers: Hypervolemia type: other Qualified Code(s): E87.79 - Other fluid overload Plan to address problem: Agree with current regimen and diuretic management. Would recommend fluid restrictions and appropriate low-sodium diet given her history of end-stage heart disease and cardiomyopathy.Continues on dobutamin gtt (3) Acute on chronic systolic heart failure Current Visit: No Status: Acute Plan to address problem: Follow up with further recommendations per cardiology. Will continue on current diuretic regimen along with appropriate fluid restrictions and low sodium diet. (4) Altered mental status Current Visit: Yes Status: Acute Plan to address problem: We'll continue to monitor closely. Psychiatry evaluation noted. (5) HTN (hypertension) Current Visit: No Status: Chronic Plan to address problem: Continue on current regimen and will monitor. Subjective Date of service: 07/03/18 Principal diagnosis: altered mental status, psychosis, chronic systolic heart failure, Interval history: Remains on dobutamine gtt. no acute changes. Labs noted and renal function stable. Objective - Vital Signs Vital signs: Vital Signs - 12hr 07/03/18 07/03/18 07/03/18 00:00 00:08 01:19 Temperature 98.3 F 98.3 F Pulse Rate 81 80 80 Pulse Rate [ Throughout] Respiratory 18 18 Rate Respiratory Rate [ Throughout] Blood Pressure 137/77 137/77 Blood Pressure 137/77 [Left] O2 Sat by Pulse 100 100 Oximetry 07/03/18 07/03/18 07/03/18 04:00 08:13 08:14 Temperature 98.0 F Pulse Rate 81 Pulse Rate [ 82 Throughout] Respiratory 18 Rate Respiratory 18 Rate [ Throughout] Blood Pressure Blood Pressure 113/71 [Left] O2 Sat by Pulse 100 92 Oximetry 07/03/18 08:24 Temperature Pulse Rate Pulse Rate [ 99 H Throughout] Respiratory Rate Respiratory 18 Rate [ Throughout] Blood Pressure Blood Pressure [Left] O2 Sat by Pulse Oximetry - General Appearance General appearance: chronically ill, frail EENT: ATNC, PERRL Neck: no JVD, no thyromegaly Respiratory: Present: Decreased Breath Sounds Cardiology: regular, S1S2 Gastrointestinal: normal, normoactive bowel sounds Integumentary: no rash, warm and dry Neurologic: confused, disoriented Musculoskeletal: other (+edema ) Psychiatric: agitated - Lab 07/03/18 08:14 07/03/18 08:14 Most recent lab results Calcium 8.2 mg/dL (8.4-10.2) L 07/03/18 08:14 Phosphorus 2.50 mg/dL (2.5-4.5) 06/20/18 07:31 Magnesium 1.50 mg/dL (1.7-2.3) L 07/03/18 08:14 Urine Creatinine 61.7 mg/dL (0.1-20.0) H 06/19/18 Unknown Urine Total Protein 32 mg/dL (5-11.8) H 06/19/18 Unknown - Allied health notes Allied health notes reviewed: nursing Medications & Allergies - Medications Allergies/Adverse Reactions: Allergies Penicillins Allergy (Verified 09/04/17 14:11) Unknown aspirin Adverse Reaction (Verified 09/04/17 14:10) Nausea haloperidol [From Haldol] Adverse Reaction (Verified 07/02/18 14:24) Anaphylaxis NSAIDS (Non-Steroidal Anti-Inflamma Adverse Reaction (Verified 09/04/17 14:10) Nausea Pork/Porcine Containing Products Adverse Reaction (Verified 11/01/17 09:04) Nausea Home Medications: Home Medications Medication Instructions Recorded Confirmed Last Taken Type Apixaban [Eliquis] 5 mg PO DAILY 09/06/17 07/02/18 Unknown History AtorvaSTATin [Lipitor] 20 mg PO DAILY 09/06/17 07/02/18 Unknown History Loperamide HCl [Loperamide] 2 mg PO DAILY 09/06/17 07/02/18 Unknown History Sertraline [Zoloft] 50 mg PO DAILY 09/06/17 07/02/18 10/17/17 10:00 History Sucralfate [Carafate] 1 gm PO DAILY 09/06/17 07/02/18 Unknown History Carvedilol [Coreg] 12.5 mg PO BID #60 tablet 09/08/17 07/02/18 Unknown Rx Lisinopril [Zestril TAB] 5 mg PO QDAY #30 tablet 09/08/17 07/02/18 Unknown Rx Doxycycline [Vibramycin CAP] 100 mg PO Q12HR #10 capsule 11/02/17 07/02/18 Unknown Rx Furosemide [Lasix] 20 mg PO QDAY #30 tablet 11/02/17 07/02/18 Unknown Rx Active Medications: Generic Name Dose Route Start Last Admin Trade Name Freq PRN Reason Stop Dose Admin Acetaminophen 650 mg 06/17/18 03:33 07/02/18 14:01 Tylenol PO 650 mg Q4H PRN Administration Fever >101 Albuterol/Ipratropium 1 ampul 06/27/18 14:00 07/03/18 08:10 Duoneb *Not For Prn Use* IH 1 ampul TIDRT JEANETTE Administration Apixaban 5 mg 06/20/18 16:00 07/03/18 10:14 Eliquis PO 5 mg Q12HR JEANETTE Administration Protocol Atorvastatin Calcium 20 mg 06/19/18 22:00 07/02/18 22:11 Lipitor PO 20 mg QHS JEANETTE Administration Dextrose 50 ml 07/01/18 11:50 D50w (25gm) Syringe IV PRN PRN Hypoglycemia Digoxin 0.125 mg 06/24/18 17:00 07/02/18 17:21 Lanoxin PO 0.125 mg DAILY@1700 JEANETTE Administration Famotidine 20 mg 06/27/18 12:00 07/03/18 10:14 Pepcid PO 20 mg DAILY JEANETTE Administration Dobutamine HCl/Dextrose 500 mg in 250 mls @ 5.918 mls/hr 06/27/18 13:00 07/02/18 12:21 Dobutrex Drip 500mg/D5w 250ml IV 5 mcg/kg/min DIRECT JEANETTE 11.835 mls/hr Administration 2.5 MCG/KG/MIN Insulin Human Lispro 0 unit 07/01/18 16:30 07/03/18 07:30 Humalog SUB-Q Not Given ACHS JEANETTE Protocol Lactulose 20 gm 06/25/18 12:00 07/03/18 05:22 Cephulac PO Not Given Q6HR JEANETTE Metoprolol Tartrate 25 mg 06/25/18 09:00 07/03/18 01:19 Lopressor PO 25 mg Q8H JEANETTE Administration Ondansetron HCl 4 mg 06/17/18 03:24 Zofran IV Q8H PRN Nausea And Vomiting Sertraline HCl 50 mg 06/24/18 10:00 07/03/18 10:14 Zoloft PO 50 mg DAILY JEANETTE Administration
--- NOTE | 2018-07-03 11:27 | Progress Note ---
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 Bili Likely congestive hepatopathy, Severe protein calorie malnutrition Hypokalemia - dobutamine discontinued - continue bronchodilators with pulmonary hygiene per RT - continue Supplemental oxygen keep O2 sat> 90% - continue aspiration precautions - continue Eliquis - continue Stress ulcer prophylaxis with Pepcid - continue glycemic control with accuchecks and SSI with target BG 140 - 180 mg/dl - Avoid hypoglycemia - Correct electrolytes as indicated - PT/OT/ROM exercises as tolerated - mobility priotocol for pressure ulcer prophylaxis - continue other care per attending / other consultants .... re-evaluate in am & prn Subjective Date of service: 07/03/18 Principal diagnosis: altered mental status, psychosis, chronic systolic heart failure, Interval history: Patient is seen today for: Cardiopulmonary arrest; Acute hypoxic respiratory failure; Hypoglycemia; Altered mental status, with acute encephalopathy; AMY; SIRS; Shock syndrome Seen and examined at bedside; 24hour events reviewed; nursing and respiratory care staff consulted; no adverse overnight events reported to me; resting in bed; remains on supplemental oxygen; still with some confusion; no emesis or overt aspiration Objective Vital Signs - 12hr 07/03/18 07/03/18 07/03/18 00:00 00:08 01:19 Temperature 98.3 F 98.3 F Pulse Rate 81 80 80 Pulse Rate [ Throughout] Respiratory 18 18 Rate Respiratory Rate [ Throughout] Blood Pressure 137/77 137/77 Blood Pressure 137/77 [Left] O2 Sat by Pulse 100 100 Oximetry 07/03/18 07/03/18 07/03/18 04:00 08:13 08:14 Temperature 98.0 F Pulse Rate 81 Pulse Rate [ 82 Throughout] Respiratory 18 Rate Respiratory 18 Rate [ Throughout] Blood Pressure Blood Pressure 113/71 [Left] O2 Sat by Pulse 100 92 Oximetry 07/03/18 08:24 Temperature Pulse Rate Pulse Rate [ 99 H Throughout] Respiratory Rate Respiratory 18 Rate [ Throughout] Blood Pressure Blood Pressure [Left] O2 Sat by Pulse Oximetry Constitutional: no acute distress, alert, other (elderly looking AAF normocephalic and atraumatic with normal resp effort at rest) Eyes: non-icteric, other (Pupils 4mm, sluggichly reacting to light) ENT: oropharynx dry, other (extubated) Neck: supple, no lymphadenopathy, no JVD, other (no thyromegaly) Effort: normal Ascultation: Bilateral: diminished breath sounds, rales Percussion: Bilateral: not dull Cardiovascular: irregular rhythm, other (S1,S2,) Gastrointestinal: normoactive bowel sounds, soft, non-tender, non-distended Integumentary: rash (exematoid rash to upper chest) Extremities: no cyanosis, no edema, pulses normal, no ischemia or petechiae Neurologic: normal mental status, non-focal exam (grossly), pupils equal and round, motor strength normal and Psychiatric: mood appropriate, affect normal CBC and BMP: 07/11/18 03:22 07/11/18 03:22 ABG, PT/INR, D-dimer: ABG POC ABG pH 7.552 (7.35-7.45) H 06/28/18 10:53 POC ABG pCO2 40.8 (35-45) 06/28/18 10:53 POC ABG pO2 83 (80-105) 06/28/18 10:53 POC ABG HCO3 35.9 (22-26 mml/L) 06/28/18 10:53 POC ABG Total CO2 37 (23-27mmol/L) 06/28/18 10:53 POC ABG O2 Sat 97 06/28/18 10:53 Abnormal lab findings: Abnormal Labs 06/16/18 06/16/18 06/16/18 21:05 21:43 21:43 WBC RBC Hgb Hct MCV MCH RDW Plt Count Lymph % (Auto) [place] % (Auto) Lymph # [place] # Seg Neutrophils % Seg Neuts % (Manual) Lymphocytes % (Manual) Seg Neutrophils # Seg Neutrophils # Man Lymphocytes # (Manual) Monocytes # (Manual) POC ABG pH POC ABG pCO2 POC ABG pO2 Sodium 129 L Potassium Chloride 95.3 L Carbon Dioxide 14 L BUN 23 H Creatinine Glucose 146 H POC Glucose < 40 L Lactic Acid Uric Acid Calcium Magnesium Total Bilirubin Direct Bilirubin AST ALT Alkaline Phosphatase Ammonia C-Reactive Protein Total Protein Albumin Vitamin B1 Vitamin B12 25-OH Vitamin D Total Free T4 T3 (GILSON) Urine Creatinine Urine Total Protein Acetaminophen < 5.0 L 06/16/18 06/16/18 06/16/18 21:43 21:43 22:27 WBC RBC 5.70 H Hgb Hct 44.6 H MCV 78 L MCH 25 L RDW 18.7 H Plt Count Lymph % (Auto) [place] % (Auto) Lymph # [place] # Seg Neutrophils % 78.8 H Seg Neuts % (Manual) Lymphocytes % (Manual) Seg Neutrophils # Seg Neutrophils # Man Lymphocytes # (Manual) Monocytes # (Manual) POC ABG pH POC ABG pCO2 POC ABG pO2 Sodium Potassium Chloride Carbon Dioxide BUN Creatinine Glucose POC Glucose 121 H Lactic Acid Uric Acid Calcium Magnesium Total Bilirubin Direct Bilirubin AST ALT Alkaline Phosphatase Ammonia C-Reactive Protein Total Protein Albumin Vitamin B1 Vitamin B12 25-OH Vitamin D Total Free T4 1.87 H T3 (GILSON) Urine Creatinine Urine Total Protein Acetaminophen 06/16/18 06/16/18 06/17/18 22:33 23:43 03:56 WBC RBC Hgb Hct MCV MCH RDW Plt Count Lymph % (Auto) [place] % (Auto) Lymph # [place] # Seg Neutrophils % Seg Neuts % (Manual) Lymphocytes % (Manual) Seg Neutrophils # Seg Neutrophils # Man Lymphocytes # (Manual) Monocytes # (Manual) POC ABG pH POC ABG pCO2 POC ABG pO2 Sodium Potassium Chloride Carbon Dioxide BUN Creatinine Glucose POC Glucose Lactic Acid 4.40 H* 4.30 H* 3.10 H* Uric Acid Calcium Magnesium Total Bilirubin Direct Bilirubin AST ALT Alkaline Phosphatase Ammonia C-Reactive Protein Total Protein Albumin Vitamin B1 Vitamin B12 25-OH Vitamin D Total Free T4 T3 (GILSON) Urine Creatinine Urine Total Protein Acetaminophen 06/17/18 06/17/18 06/17/18 08:35 08:40 11:00 WBC RBC Hgb Hct MCV MCH RDW Plt Count Lymph % (Auto) [place] % (Auto) Lymph # [place] # Seg Neutrophils % Seg Neuts % (Manual) Lymphocytes % (Manual) Seg Neutrophils # Seg Neutrophils # Man Lymphocytes # (Manual) Monocytes # (Manual) POC ABG pH POC ABG pCO2 POC ABG pO2 Sodium Potassium Chloride Carbon Dioxide BUN Creatinine Glucose POC Glucose 56 L Lactic Acid 2.70 H* 3.40 H* Uric Acid Calcium Magnesium Total Bilirubin Direct Bilirubin AST ALT Alkaline Phosphatase Ammonia C-Reactive Protein Total Protein Albumin Vitamin B1 Vitamin B12 25-OH Vitamin D Total Free T4 T3 (GILSON) Urine Creatinine Urine Total Protein Acetaminophen 06/17/18 06/17/18 06/17/18 11:00 11:00 11:00 WBC 11.9 H RBC 5.25 H Hgb Hct MCV MCH 25 L RDW 18.6 H Plt Count Lymph % (Auto) [place] % (Auto) Lymph # [place] # Seg Neutrophils % Seg Neuts % (Manual) Lymphocytes % (Manual) Seg Neutrophils # Seg Neutrophils # Man Lymphocytes # (Manual) Monocytes # (Manual) POC ABG pH POC ABG pCO2 POC ABG pO2 Sodium 128 L Potassium Chloride 95.6 L Carbon Dioxide 15 L BUN 22 H Creatinine Glucose 110 H POC Glucose Lactic Acid Uric Acid Calcium 8.3 L Magnesium Total Bilirubin Direct Bilirubin 1.6 H AST 66 H ALT Alkaline Phosphatase 178 H Ammonia C-Reactive Protein Total Protein 4.7 L Albumin 2.4 L Vitamin B1 Vitamin B12 25-OH Vitamin D Total Free T4 T3 (GILSON) Urine Creatinine Urine Total Protein Acetaminophen 06/17/18 06/17/18 06/17/18 15:08 15:08 23:00 WBC RBC Hgb Hct MCV MCH RDW Plt Count Lymph % (Auto) [place] % (Auto) Lymph # [place] # Seg Neutrophils % Seg Neuts % (Manual) Lymphocytes % (Manual) Seg Neutrophils # Seg Neutrophils # Man Lymphocytes # (Manual) Monocytes # (Manual) POC ABG pH POC ABG pCO2 POC ABG pO2 Sodium Potassium Chloride Carbon Dioxide BUN Creatinine Glucose POC Glucose Lactic Acid 4.00 H* Uric Acid Calcium Magnesium Total Bilirubin Direct Bilirubin AST ALT Alkaline Phosphatase Ammonia 10.0 L C-Reactive Protein Total Protein Albumin Vitamin B1 Vitamin B12 25-OH Vitamin D Total Free T4 1.53 H T3 (GILSON) Urine Creatinine Urine Total Protein Acetaminophen 06/18/18 06/18/18 06/18/18 08:59 08:59 12:49 WBC RBC 5.29 H Hgb Hct MCV 78 L MCH 25 L RDW 18.4 H Plt Count Lymph % (Auto) [place] % (Auto) Lymph # [place] # Seg Neutrophils % Seg Neuts % (Manual) Lymphocytes % (Manual) Seg Neutrophils # Seg Neutrophils # Man Lymphocytes # (Manual) Monocytes # (Manual) POC ABG pH POC ABG pCO2 POC ABG pO2 Sodium 128 L Potassium 5.9 H D Chloride 96.1 L Carbon Dioxide 20 L BUN 22 H Creatinine Glucose POC Glucose 60 L Lactic Acid Uric Acid Calcium Magnesium Total Bilirubin Direct Bilirubin AST ALT Alkaline Phosphatase Ammonia C-Reactive Protein Total Protein Albumin Vitamin B1 Vitamin B12 25-OH Vitamin D Total Free T4 T3 (GILSON) Urine Creatinine Urine Total Protein Acetaminophen 06/18/18 06/19/18 06/19/18 21:28 12:14 13:23 WBC RBC Hgb Hct MCV MCH RDW Plt Count Lymph % (Auto) [place] % (Auto) Lymph # [place] # Seg Neutrophils % Seg Neuts % (Manual) Lymphocytes % (Manual) Seg Neutrophils # Seg Neutrophils # Man Lymphocytes # (Manual) Monocytes # (Manual) POC ABG pH POC ABG pCO2 POC ABG pO2 Sodium 122 L Potassium 5.4 H Chloride 95.0 L Carbon Dioxide 13 L D BUN 21 H Creatinine Glucose 119 H POC Glucose 114 H Lactic Acid Uric Acid Calcium 8.3 L Magnesium Total Bilirubin Direct Bilirubin AST ALT Alkaline Phosphatase Ammonia C-Reactive Protein Total Protein Albumin Vitamin B1 Vitamin B12 25-OH Vitamin D Total Free T4 T3 (GILSON) Urine Creatinine Urine Total Protein Acetaminophen 06/19/18 06/19/18 06/19/18 14:47 16:38 22:42 WBC RBC 5.51 H Hgb Hct 45.3 H MCV MCH 25 L RDW 18.6 H Plt Count Lymph % (Auto) [place] % (Auto) Lymph # [place] # Seg Neutrophils % Seg Neuts % (Manual) Lymphocytes % (Manual) Seg Neutrophils # Seg Neutrophils # Man Lymphocytes # (Manual) Monocytes # (Manual) POC ABG pH POC ABG pCO2 POC ABG pO2 Sodium Potassium Chloride Carbon Dioxide BUN Creatinine Glucose POC Glucose 108 H 49 L Lactic Acid Uric Acid Calcium Magnesium Total Bilirubin Direct Bilirubin AST ALT Alkaline Phosphatase Ammonia C-Reactive Protein Total Protein Albumin Vitamin B1 Vitamin B12 25-OH Vitamin D Total Free T4 T3 (GILSON) Urine Creatinine Urine Total Protein Acetaminophen 06/19/18 06/20/18 06/20/18 Unknown 07:31 16:51 WBC RBC Hgb Hct MCV MCH RDW Plt Count Lymph % (Auto) [place] % (Auto) Lymph # [place] # Seg Neutrophils % Seg Neuts % (Manual) Lymphocytes % (Manual) Seg Neutrophils # Seg Neutrophils # Man Lymphocytes # (Manual) Monocytes # (Manual) POC ABG pH POC ABG pCO2 POC ABG pO2 Sodium 132 L D Potassium Chloride 94.3 L Carbon Dioxide BUN 20 H Creatinine Glucose POC Glucose Lactic Acid Uric Acid 8.6 H Calcium Magnesium 1.30 L Total Bilirubin Direct Bilirubin AST ALT Alkaline Phosphatase Ammonia C-Reactive Protein Total Protein Albumin Vitamin B1 Vitamin B12 25-OH Vitamin D Total Free T4 T3 (GILSON) 58 L Urine Creatinine 61.7 H Urine Total Protein 32 H Acetaminophen 06/20/18 06/20/18 06/21/18 20:53 20:53 16:27 WBC RBC Hgb Hct MCV MCH RDW Plt Count Lymph % (Auto) [place] % (Auto) Lymph # [place] # Seg Neutrophils % Seg Neuts % (Manual) Lymphocytes % (Manual) Seg Neutrophils # Seg Neutrophils # Man Lymphocytes # (Manual) Monocytes # (Manual) POC ABG pH POC ABG pCO2 POC ABG pO2 Sodium Potassium Chloride Carbon Dioxide BUN Creatinine Glucose POC Glucose Lactic Acid Uric Acid 9.2 H Calcium Magnesium Total Bilirubin Direct Bilirubin AST ALT Alkaline Phosphatase Ammonia C-Reactive Protein Total Protein Albumin Vitamin B1 Vitamin B12 1598 H 25-OH Vitamin D Total 10 L Free T4 T3 (GILSON) Urine Creatinine Urine Total Protein Acetaminophen 06/21/18 06/21/18 06/21/18 16:27 16:27 16:27 WBC RBC 5.26 H Hgb Hct MCV 77 L MCH 26 L RDW 17.7 H Plt Count Lymph % (Auto) [place] % (Auto) Lymph # [place] # Seg Neutrophils % Seg Neuts % (Manual) Lymphocytes % (Manual) Seg Neutrophils # Seg Neutrophils # Man Lymphocytes # (Manual) Monocytes # (Manual) POC ABG pH POC ABG pCO2 POC ABG pO2 Sodium 130 L Potassium Chloride 95.6 L Carbon Dioxide BUN 24 H Creatinine Glucose POC Glucose Lactic Acid Uric Acid Calcium Magnesium Total Bilirubin Direct Bilirubin AST ALT Alkaline Phosphatase Ammonia C-Reactive Protein Total Protein Albumin Vitamin B1 <6 L Vitamin B12 25-OH Vitamin D Total Free T4 T3 (GILSON) Urine Creatinine Urine Total Protein Acetaminophen 06/21/18 06/22/18 06/23/18 21:44 21:42 14:54 WBC RBC 5.07 H Hgb Hct MCV 78 L MCH 25 L RDW 18.5 H Plt Count Lymph % (Auto) [place] % (Auto) 12.3 H Lymph # 1.0 L [place] # Seg Neutrophils % Seg Neuts % (Manual) Lymphocytes % (Manual) Seg Neutrophils # Seg Neutrophils # Man Lymphocytes # (Manual) Monocytes # (Manual) POC ABG pH POC ABG pCO2 POC ABG pO2 Sodium Potassium Chloride Carbon Dioxide BUN Creatinine Glucose POC Glucose 126 H 114 H Lactic Acid Uric Acid Calcium Magnesium Total Bilirubin Direct Bilirubin AST ALT Alkaline Phosphatase Ammonia C-Reactive Protein Total Protein Albumin Vitamin B1 Vitamin B12 25-OH Vitamin D Total Free T4 T3 (GILSON) Urine Creatinine Urine Total Protein Acetaminophen 06/23/18 06/25/18 06/25/18 14:54 00:00 00:00 WBC 3.6 L RBC 5.31 H Hgb Hct MCV 77 L MCH 26 L RDW 19.0 H Plt Count Lymph % (Auto) [place] % (Auto) 10.2 H Lymph # [place] # Seg Neutrophils % Seg Neuts % (Manual) Lymphocytes % (Manual) Seg Neutrophils # Seg Neutrophils # Man Lymphocytes # (Manual) Monocytes # (Manual) POC ABG pH POC ABG pCO2 POC ABG pO2 Sodium 132 L 131 L Potassium 3.5 L Chloride 91.5 L 93.5 L Carbon Dioxide BUN 19 H 21 H Creatinine Glucose POC Glucose Lactic Acid Uric Acid Calcium 8.1 L Magnesium Total Bilirubin 2.80 H 2.70 H Direct Bilirubin AST 52 H 81 H ALT Alkaline Phosphatase 231 H 243 H Ammonia C-Reactive Protein Total Protein 5.5 L 5.5 L Albumin 2.8 L 2.7 L Vitamin B1 Vitamin B12 25-OH Vitamin D Total Free T4 T3 (GILSON) Urine Creatinine Urine Total Protein Acetaminophen 06/25/18 06/25/18 06/25/18 16:02 16:02 16:18 WBC 3.9 L RBC 5.78 H Hgb 14.6 H Hct 45.4 H MCV MCH 25 L RDW 19.2 H Plt Count Lymph % (Auto) [place] % (Auto) Lymph # [place] # Seg Neutrophils % Seg Neuts % (Manual) Lymphocytes % (Manual) Seg Neutrophils # Seg Neutrophils # Man Lymphocytes # (Manual) 1.1 L Monocytes # (Manual) POC ABG pH POC ABG pCO2 POC ABG pO2 Sodium 131 L Potassium Chloride 90.0 L Carbon Dioxide BUN 25 H Creatinine 1.4 H Glucose POC Glucose Lactic Acid 4.00 H* Uric Acid Calcium Magnesium Total Bilirubin 3.10 H Direct Bilirubin AST 68 H ALT Alkaline Phosphatase 296 H Ammonia C-Reactive Protein Total Protein 6.1 L Albumin 3.3 L Vitamin B1 Vitamin B12 25-OH Vitamin D Total Free T4 T3 (GILSON) Urine Creatinine Urine Total Protein Acetaminophen 06/25/18 06/26/18 06/26/18 21:06 11:33 11:37 WBC RBC Hgb Hct MCV MCH 26 L RDW 19.2 H Plt Count 139 L Lymph % (Auto) [place] % (Auto) Lymph # [place] # Seg Neutrophils % Seg Neuts % (Manual) 85.0 H Lymphocytes % (Manual) 6.0 L Seg Neutrophils # Seg Neutrophils # Man 8.0 H Lymphocytes # (Manual) 0.6 L Monocytes # (Manual) POC ABG pH POC ABG pCO2 POC ABG pO2 Sodium Potassium Chloride Carbon Dioxide BUN Creatinine Glucose POC Glucose < 40 L Lactic Acid 6.40 H* Uric Acid Calcium Magnesium Total Bilirubin Direct Bilirubin AST ALT Alkaline Phosphatase Ammonia C-Reactive Protein Total Protein Albumin Vitamin B1 Vitamin B12 25-OH Vitamin D Total Free T4 T3 (GILSON) Urine Creatinine Urine Total Protein Acetaminophen 06/26/18 06/26/18 06/26/18 11:37 11:51 11:59 WBC RBC Hgb Hct MCV MCH RDW Plt Count Lymph % (Auto) [place] % (Auto) Lymph # [place] # Seg Neutrophils % Seg Neuts % (Manual) Lymphocytes % (Manual) Seg Neutrophils # Seg Neutrophils # Man Lymphocytes # (Manual) Monocytes # (Manual) POC ABG pH 7.029 L POC ABG pCO2 POC ABG pO2 73 L Sodium 129 L Potassium Chloride 87.0 L Carbon Dioxide 11 L D BUN 31 H Creatinine 1.9 H Glucose 206 H POC Glucose 253 H Lactic Acid Uric Acid Calcium 7.9 L Magnesium Total Bilirubin 2.90 H Direct Bilirubin AST 98 H ALT Alkaline Phosphatase 196 H Ammonia C-Reactive Protein Total Protein 4.3 L D Albumin 2.2 L Vitamin B1 Vitamin B12 25-OH Vitamin D Total Free T4 T3 (GILSON) Urine Creatinine Urine Total Protein Acetaminophen 06/26/18 06/26/18 06/26/18 14:54 15:08 15:10 WBC 14.2 H RBC 5.66 H Hgb 14.5 H Hct 45.6 H D MCV MCH 26 L RDW 19.4 H Plt Count Lymph % (Auto) [place] % (Auto) Lymph # [place] # Seg Neutrophils % Seg Neuts % (Manual) 88.0 H Lymphocytes % (Manual) 5.0 L Seg Neutrophils # Seg Neutrophils # Man 12.5 H Lymphocytes # (Manual) 0.7 L Monocytes # (Manual) 0.9 H POC ABG pH POC ABG pCO2 POC ABG pO2 Sodium Potassium Chloride Carbon Dioxide BUN Creatinine Glucose POC Glucose 172 H Lactic Acid 11.90 H* Uric Acid Calcium Magnesium Total Bilirubin Direct Bilirubin AST ALT Alkaline Phosphatase Ammonia C-Reactive Protein Total Protein Albumin Vitamin B1 Vitamin B12 25-OH Vitamin D Total Free T4 T3 (GILSON) Urine Creatinine Urine Total Protein Acetaminophen 06/26/18 06/26/18 06/26/18 16:01 18:47 20:55 WBC RBC Hgb Hct MCV MCH RDW Plt Count Lymph % (Auto) [place] % (Auto) Lymph # [place] # Seg Neutrophils % Seg Neuts % (Manual) Lymphocytes % (Manual) Seg Neutrophils # Seg Neutrophils # Man Lymphocytes # (Manual) Monocytes # (Manual) POC ABG pH POC ABG pCO2 34.0 L POC ABG pO2 Sodium Potassium Chloride Carbon Dioxide BUN Creatinine Glucose POC Glucose 183 H 131 H Lactic Acid Uric Acid Calcium Magnesium Total Bilirubin Direct Bilirubin AST ALT Alkaline Phosphatase Ammonia C-Reactive Protein Total Protein Albumin Vitamin B1 Vitamin B12 25-OH Vitamin D Total Free T4 T3 (GILSON) Urine Creatinine Urine Total Protein Acetaminophen 06/26/18 06/27/18 06/27/18 21:55 09:29 09:29 WBC RBC Hgb Hct MCV MCH RDW Plt Count Lymph % (Auto) [place] % (Auto) Lymph # [place] # Seg Neutrophils % Seg Neuts % (Manual) Lymphocytes % (Manual) Seg Neutrophils # Seg Neutrophils # Man Lymphocytes # (Manual) Monocytes # (Manual) POC ABG pH POC ABG pCO2 POC ABG pO2 Sodium 135 L 135 L Potassium 3.5 L Chloride 91.7 L 91.2 L Carbon Dioxide BUN 35 H 37 H Creatinine 2.3 H 2.1 H Glucose 147 H 104 H POC Glucose Lactic Acid Uric Acid Calcium 8.3 L 8.1 L Magnesium Total Bilirubin 3.50 H Direct Bilirubin AST 218 H ALT 57 H Alkaline Phosphatase 197 H Ammonia C-Reactive Protein Total Protein 5.0 L Albumin 2.3 L Vitamin B1 Vitamin B12 25-OH Vitamin D Total Free T4 1.78 H T3 (GILSON) Urine Creatinine Urine Total Protein Acetaminophen 06/27/18 06/27/18 06/27/18 09:29 09:29 10:00 WBC 16.3 H RBC 5.44 H Hgb Hct MCV 76 L MCH 25 L RDW 18.3 H Plt Count Lymph % (Auto) [place] % (Auto) Lymph # [place] # Seg Neutrophils % Seg Neuts % (Manual) 91.0 H Lymphocytes % (Manual) 3.0 L Seg Neutrophils # Seg Neutrophils # Man 14.8 H Lymphocytes # (Manual) 0.5 L Monocytes # (Manual) 1.0 H POC ABG pH POC ABG pCO2 POC ABG pO2 Sodium Potassium Chloride Carbon Dioxide BUN Creatinine Glucose POC Glucose 106 H Lactic Acid 4.00 H* Uric Acid Calcium Magnesium Total Bilirubin Direct Bilirubin AST ALT Alkaline Phosphatase Ammonia C-Reactive Protein Total Protein Albumin Vitamin B1 Vitamin B12 25-OH Vitamin D Total Free T4 T3 (GILSON) Urine Creatinine Urine Total Protein Acetaminophen 06/27/18 06/27/18 06/27/18 11:51 12:50 13:39 WBC RBC Hgb Hct MCV MCH RDW Plt Count Lymph % (Auto) [place] % (Auto) Lymph # [place] # Seg Neutrophils % Seg Neuts % (Manual) Lymphocytes % (Manual) Seg Neutrophils # Seg Neutrophils # Man Lymphocytes # (Manual) Monocytes # (Manual) POC ABG pH 7.584 H POC ABG pCO2 32.8 L POC ABG pO2 109 H Sodium Potassium Chloride Carbon Dioxide BUN Creatinine Glucose POC Glucose 112 H Lactic Acid 3.20 H* Uric Acid Calcium Magnesium Total Bilirubin Direct Bilirubin AST ALT Alkaline Phosphatase Ammonia C-Reactive Protein Total Protein Albumin Vitamin B1 Vitamin B12 25-OH Vitamin D Total Free T4 T3 (GILSON) Urine Creatinine Urine Total Protein Acetaminophen 06/27/18 06/27/18 06/27/18 19:31 21:50 23:10 WBC RBC Hgb Hct MCV MCH RDW Plt Count Lymph % (Auto) [place] % (Auto) Lymph # [place] # Seg Neutrophils % Seg Neuts % (Manual) Lymphocytes % (Manual) Seg Neutrophils # Seg Neutrophils # Man Lymphocytes # (Manual) Monocytes # (Manual) POC ABG pH POC ABG pCO2 POC ABG pO2 Sodium Potassium Chloride Carbon Dioxide BUN Creatinine Glucose POC Glucose Lactic Acid 2.40 H* 2.30 H* 2.30 H* Uric Acid Calcium Magnesium Total Bilirubin Direct Bilirubin AST ALT Alkaline Phosphatase Ammonia C-Reactive Protein Total Protein Albumin Vitamin B1 Vitamin B12 25-OH Vitamin D Total Free T4 T3 (GILSON) Urine Creatinine Urine Total Protein Acetaminophen 06/28/18 06/28/18 06/28/18 02:35 05:00 05:00 WBC RBC Hgb Hct MCV MCH RDW Plt Count Lymph % (Auto) [place] % (Auto) Lymph # [place] # Seg Neutrophils % Seg Neuts % (Manual) Lymphocytes % (Manual) Seg Neutrophils # Seg Neutrophils # Man Lymphocytes # (Manual) Monocytes # (Manual) POC ABG pH POC ABG pCO2 POC ABG pO2 Sodium 134 L Potassium 2.6 L* D Chloride 92.3 L Carbon Dioxide 32 H BUN 34 H Creatinine 1.8 H Glucose 127 H POC Glucose Lactic Acid 2.20 H* 2.30 H* Uric Acid Calcium 7.5 L Magnesium Total Bilirubin 3.50 H Direct Bilirubin AST 226 H ALT 60 H Alkaline Phosphatase 172 H Ammonia C-Reactive Protein Total Protein 4.2 L Albumin 2.0 L Vitamin B1 Vitamin B12 25-OH Vitamin D Total Free T4 T3 (GILSON) Urine Creatinine Urine Total Protein Acetaminophen 06/28/18 06/28/18 06/28/18 05:00 08:30 08:30 WBC 15.7 H RBC Hgb Hct MCV 77 L MCH 25 L RDW 18.5 H Plt Count 112 L Lymph % (Auto) 6.0 L [place] % (Auto) 10.0 H Lymph # 0.9 L [place] # 1.6 H Seg Neutrophils % 83.4 H Seg Neuts % (Manual) Lymphocytes % (Manual) Seg Neutrophils # 13.1 H Seg Neutrophils # Man Lymphocytes # (Manual) Monocytes # (Manual) POC ABG pH POC ABG pCO2 POC ABG pO2 Sodium Potassium Chloride Carbon Dioxide BUN Creatinine Glucose POC Glucose Lactic Acid 2.40 H* Uric Acid Calcium Magnesium Total Bilirubin Direct Bilirubin AST ALT Alkaline Phosphatase Ammonia C-Reactive Protein 4.80 H Total Protein Albumin Vitamin B1 Vitamin B12 25-OH Vitamin D Total Free T4 T3 (GILSON) Urine Creatinine Urine Total Protein Acetaminophen 06/28/18 06/28/18 06/28/18 10:53 11:23 18:35 WBC RBC Hgb Hct MCV MCH RDW Plt Count Lymph % (Auto) [place] % (Auto) Lymph # [place] # Seg Neutrophils % Seg Neuts % (Manual) Lymphocytes % (Manual) Seg Neutrophils # Seg Neutrophils # Man Lymphocytes # (Manual) Monocytes # (Manual) POC ABG pH 7.552 H POC ABG pCO2 POC ABG pO2 Sodium Potassium 3.1 L Chloride Carbon Dioxide BUN Creatinine Glucose POC Glucose 122 H Lactic Acid Uric Acid Calcium Magnesium Total Bilirubin Direct Bilirubin AST ALT Alkaline Phosphatase Ammonia C-Reactive Protein Total Protein Albumin Vitamin B1 Vitamin B12 25-OH Vitamin D Total Free T4 T3 (GILSON) Urine Creatinine Urine Total Protein Acetaminophen 06/29/18 06/29/18 06/29/18 06:40 06:40 19:44 WBC 14.6 H RBC Hgb Hct MCV 77 L MCH 25 L RDW 19.3 H Plt Count 88 L Lymph % (Auto) [place] % (Auto) Lymph # [place] # Seg Neutrophils % Seg Neuts % (Manual) Lymphocytes % (Manual) Seg Neutrophils # Seg Neutrophils # Man Lymphocytes # (Manual) Monocytes # (Manual) POC ABG pH POC ABG pCO2 POC ABG pO2 Sodium Potassium 2.7 L* Chloride 95.3 L Carbon Dioxide 32 H BUN 25 H Creatinine Glucose 145 H POC Glucose 59 L Lactic Acid Uric Acid Calcium 7.9 L Magnesium Total Bilirubin 3.60 H Direct Bilirubin AST 213 H ALT Alkaline Phosphatase 176 H Ammonia C-Reactive Protein Total Protein 4.8 L Albumin 2.2 L Vitamin B1 Vitamin B12 25-OH Vitamin D Total Free T4 T3 (GILOSN) Urine Creatinine Urine Total Protein Acetaminophen 06/29/18 06/30/18 06/30/18 20:43 02:37 04:45 WBC RBC Hgb Hct MCV MCH RDW Plt Count Lymph % (Auto) [place] % (Auto) Lymph # [place] # Seg Neutrophils % Seg Neuts % (Manual) Lymphocytes % (Manual) Seg Neutrophils # Seg Neutrophils # Man Lymphocytes # (Manual) Monocytes # (Manual) POC ABG pH POC ABG pCO2 POC ABG pO2 Sodium Potassium 3.1 L 2.8 L* Chloride Carbon Dioxide 31 H BUN 18 H Creatinine Glucose POC Glucose 59 L Lactic Acid Uric Acid Calcium 8.0 L Magnesium Total Bilirubin 3.70 H Direct Bilirubin AST 216 H ALT 63 H Alkaline Phosphatase 163 H Ammonia C-Reactive Protein Total Protein 4.5 L Albumin 2.1 L Vitamin B1 Vitamin B12 25-OH Vitamin D Total Free T4 T3 (GILSON) Urine Creatinine Urine Total Protein Acetaminophen 06/30/18 06/30/18 07/01/18 04:45 06:24 04:39 WBC 12.1 H RBC Hgb Hct MCV 78 L 77 L MCH 25 L 25 L RDW 19.0 H 19.3 H Plt Count 91 L 77 L Lymph % (Auto) [place] % (Auto) Lymph # [place] # Seg Neutrophils % Seg Neuts % (Manual) Lymphocytes % (Manual) Seg Neutrophils # Seg Neutrophils # Man Lymphocytes # (Manual) Monocytes # (Manual) POC ABG pH POC ABG pCO2 POC ABG pO2 Sodium Potassium Chloride Carbon Dioxide BUN Creatinine Glucose POC Glucose 63 L Lactic Acid Uric Acid Calcium Magnesium Total Bilirubin Direct Bilirubin AST ALT Alkaline Phosphatase Ammonia C-Reactive Protein Total Protein Albumin Vitamin B1 Vitamin B12 25-OH Vitamin D Total Free T4 T3 (GILSON) Urine Creatinine Urine Total Protein Acetaminophen 07/01/18 07/01/18 07/02/18 04:39 11:12 05:23 WBC RBC Hgb Hct MCV 77 L MCH 25 L RDW 19.2 H Plt Count 78 L Lymph % (Auto) [place] % (Auto) Lymph # [place] # Seg Neutrophils % Seg Neuts % (Manual) Lymphocytes % (Manual) Seg Neutrophils # Seg Neutrophils # Man Lymphocytes # (Manual) Monocytes # (Manual) POC ABG pH POC ABG pCO2 POC ABG pO2 Sodium Potassium 3.5 L D Chloride Carbon Dioxide BUN Creatinine Glucose 109 H POC Glucose 206 H Lactic Acid Uric Acid Calcium 8.1 L Magnesium Total Bilirubin 3.90 H Direct Bilirubin AST 163 H ALT 60 H Alkaline Phosphatase 166 H Ammonia C-Reactive Protein Total Protein 4.5 L Albumin 2.0 L Vitamin B1 Vitamin B12 25-OH Vitamin D Total Free T4 T3 (GILSON) Urine Creatinine Urine Total Protein Acetaminophen 07/02/18 07/02/18 07/03/18 05:23 12:18 08:14 WBC RBC Hgb Hct MCV 76 L MCH 25 L RDW 19.0 H Plt Count 84 L Lymph % (Auto) [place] % (Auto) Lymph # [place] # Seg Neutrophils % Seg Neuts % (Manual) Lymphocytes % (Manual) Seg Neutrophils # Seg Neutrophils # Man Lymphocytes # (Manual) Monocytes # (Manual) POC ABG pH POC ABG pCO2 POC ABG pO2 Sodium 135 L Potassium 3.4 L Chloride Carbon Dioxide BUN Creatinine 0.6 L Glucose POC Glucose 144 H Lactic Acid Uric Acid Calcium 8.3 L Magnesium Total Bilirubin Direct Bilirubin AST ALT Alkaline Phosphatase Ammonia C-Reactive Protein Total Protein Albumin Vitamin B1 Vitamin B12 25-OH Vitamin D Total Free T4 T3 (GILSON) Urine Creatinine Urine Total Protein Acetaminophen 07/03/18 08:14 WBC RBC Hgb Hct MCV MCH RDW Plt Count Lymph % (Auto) Noble % (Auto) Lymph # Noble # Seg Neutrophils % Seg Neuts % (Manual) Lymphocytes % (Manual) Seg Neutrophils # Seg Neutrophils # Man Lymphocytes # (Manual) Monocytes # (Manual) POC ABG pH POC ABG pCO2 POC ABG pO2 Sodium 135 L Potassium Chloride 97.7 L Carbon Dioxide BUN Creatinine 0.5 L Glucose POC Glucose Lactic Acid Uric Acid Calcium 8.2 L Magnesium 1.50 L Total Bilirubin Direct Bilirubin AST ALT Alkaline Phosphatase Ammonia C-Reactive Protein Total Protein Albumin Vitamin B1 Vitamin B12 25-OH Vitamin D Total Free T4 T3 (GILSON) Urine Creatinine Urine Total Protein Acetaminophen Allied health notes reviewed: nursing
[2018-07-03] MEDS: DOBUTREX DRIP 500MG/D5W 250ML 500 MG/250 ML BAG IV SCH (11:49)
--- NOTE | 2018-07-03 13:50 | Progress Note ---
Assessment and Plan - Patient Problems (1) Acute on chronic systolic heart failure Current Visit: No Status: Acute Plan to address problem: Medical therapy for severe dilated cardiomyopathy and chronic systolic heart failure. We will discontinue intravenous dobutamine, and continue oral therapy for heart failure as previously outlined. Subjective Date of service: 07/03/18 Principal diagnosis: altered mental status, psychosis, chronic systolic heart failure, Interval history: Patient is comfortable, shortness of breath has improved. Objective Vital Signs Temp Pulse Pulse Pulse Pulse Resp Resp 07/03/18 08:24 99 H 18 07/03/18 08:14 82 18 07/03/18 08:13 07/03/18 04:00 98.0 F 81 18 07/03/18 01:19 80 07/03/18 00:08 98.3 F 80 18 07/03/18 00:00 98.3 F 81 18 07/02/18 22:50 89 18 07/02/18 20:17 85 07/02/18 19:30 89 22 07/02/18 19:00 92 H 24 07/02/18 18:44 96 H 24 07/02/18 18:00 93 H 25 H 07/02/18 17:21 97 H 07/02/18 17:20 95 H 07/02/18 17:00 96 H 23 07/02/18 16:00 92 H 94 H 17 07/02/18 15:01 18 07/02/18 15:00 100 H 23 07/02/18 14:56 98 H 18 07/02/18 14:53 07/02/18 14:46 97 H 23 07/02/18 14:00 98 H 28 H BP BP Pulse Ox 07/03/18 08:24 07/03/18 08:14 07/03/18 08:13 92 07/03/18 04:00 113/71 100 07/03/18 01:19 137/77 07/03/18 00:08 137/77 100 07/03/18 00:00 137/77 100 07/02/18 22:50 100 07/02/18 20:17 07/02/18 19:30 129/56 07/02/18 19:00 129/56 07/02/18 18:44 129/56 07/02/18 18:00 170/50 07/02/18 17:21 129/56 07/02/18 17:20 129/56 07/02/18 17:00 170/50 98 07/02/18 16:00 129/57 100 07/02/18 15:01 07/02/18 15:00 123/69 07/02/18 14:56 07/02/18 14:53 95 07/02/18 14:46 07/02/18 14:00 118/70 - Physical Examination General: No Apparent Distress, Cachectic HEENT: Positive: PERRL Neck: Positive: trachea midline Cardiac: Positive: Reg Rate and Rhythm Lungs: Positive: Decreased Breath Sounds Neuro: Positive: Grossly Intact Abdomen: Positive: Unremarkable Skin: Positive: Clear Extremities: Absent: edema - Labs and Meds CBC 07/03/18 Range/Units 08:14 WBC 7.7 (4.5-11.0) K/mm3 RBC 4.51 (3.65-5.03) M/mm3 Hgb 11.5 (10.1-14.3) gm/dl Hct 34.4 (30.3-42.9) % Plt Count 84 L (140-440) K/mm3 Comprehensive Metabolic Panel 07/03/18 Range/Units 08:14 Sodium 135 L (137-145) mmol/L Potassium 3.8 (3.6-5.0) mmol/L Chloride 97.7 L (98-107) mmol/L Carbon Dioxide 28 (22-30) mmol/L BUN 10 (7-17) mg/dL Creatinine 0.5 L (0.7-1.2) mg/dL Glucose 68 (65-100) mg/dL Calcium 8.2 L (8.4-10.2) mg/dL - Allied health notes Allied health notes reviewed: nursing
--- NOTE | 2018-07-03 15:08 | Progress Note ---
Assessment and Plan Assessment and plan: Patient is 68 yo woman with a history of hypertension, CHF and Atrial fibrillation who presented with altered mental status. She was climbing a fence, running wild; therefore, brought to ED. No previous psych history. CT neg. She was sedated in ED, and admitted. MRI Brain unremarkable. Patient evaluated by Neuro and psychiatry. She was initially a 1013 but is was rescinded. It appears Neurology believes patient AMS is a psychotic disorder but Psychiatry has not really making a definitive diagnosis. I believe she has Schizoaffective disorder or Dementia with psychotic features. During the hospital stay, She received Haldol to obtain CT head but had PEA cardiac arrest on 06/26/18, she received Epinephrine then developed pulseless Ventricular fibrillation and 1 shock via defibrillator was delivered with return of pulse. She was also found to have a very low blood glucose during the cardiac arrest and was treated with IV dextrose. She was intubated during the Code blue and sent to ICU. 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 -Hyponatremia, due to CHF, na 130 today improved from 122: Nephrology following -Elevated LFT, Likely congestive hepatopathy due to end stage NICMP,monitor as n eeded -Severe protein calorie malnutrition: Derivatives Trader consulted -SIRS- ?underlying PNA doubt based on xray review and lack of fever or leukocytoisis: check blood culture- NO GROWTH. Antibiotics discontinued -Persistently elevated Lactic acidosis:-Likely secondary to hypoperfusion- improving -Hypokalemia: replace -Remains on restraints for safety -DVT prophylaxis: Patient is on Eliquis POOR PROGNOSIS. patient was in Hospice for end stage Heart failure. Transfer to Telemetry. Hospice Discussion 07/02/2018 I called fred Dorman [phone] and gave update, who is the NOK. Patient an estranged son Lupillo in [place], [place] and unreachable per Dandy. Patient mental status has been declining over 3-4 months. We discussed Hospice. He will run it by patient brother Shoaib Burdick which his father. His number is [phone] which I called via automatic oven operator's help. He will consider. Patient has 5 siblings d/c Dobutamine per Cardiology try to wean O2 History Interval history: Patient was seen and examined. Follow-up on current diagnosis AMS, still present. Overnight uneventful. Patient is confused. Imaging, nursing note, chart, labs and old chart reviewed. Discussed with patient. Hospitalist Physical - Physical exam Narrative exam: GEN: WDWN, NAD, Awake, Alert, confused HEENT: NCAT, EOMI, PERRL, OP Clear NECK: supple, no adenopathy, no thyromegaly, no JVD CVS/HEART: irregular, normal S1S2, pulses present bilaterally CHEST/LUNGS: CTA B, Symmetrical chest expansion, good air entry bilaterally GI/Abdomen: soft, NTND, good bowel sounds, no guarding or rebound /Bladder: no suprapubic tenderness, no CVA or paraspinal tenderness EXT/Skin: no c/c, +edema, no obvious rash MSK: FROM x 4 Neuro: CN 2-12 grossly intact, not following commands Psych: calm - Constitutional Vitals: Temp Pulse Resp BP Pulse Ox 98.2 F 97 H 18 145/66 100 07/03/18 12:40 07/03/18 14:43 07/03/18 14:43 07/03/18 12:40 07/03/18 12:40 General appearance: Present: no acute distress Results - Labs CBC & Chem 7: 07/03/18 08:14 07/03/18 08:14 Labs: Laboratory Last Values WBC 7.7 K/mm3 (4.5-11.0) 07/03/18 08:14 RBC 4.51 M/mm3 (3.65-5.03) 07/03/18 08:14 Hgb 11.5 gm/dl (10.1-14.3) 07/03/18 08:14 Hct 34.4 % (30.3-42.9) 07/03/18 08:14 MCV 76 fl (79-97) L 07/03/18 08:14 MCH 25 pg (28-32) L 07/03/18 08:14 MCHC 33 % (30-34) 07/03/18 08:14 RDW 19.0 % (13.2-15.2) H 07/03/18 08:14 Plt Count 84 K/mm3 (140-440) L 07/03/18 08:14 Lymph % (Auto) 6.0 % (13.4-35.0) L 06/28/18 08:30 [place] % (Auto) 10.0 % (0.0-7.3) H 06/28/18 08:30 Eos % (Auto) 0.3 % (0.0-4.3) 06/28/18 08:30 Baso % (Auto) 0.3 % (0.0-1.8) 06/28/18 08:30 Lymph # 0.9 K/mm3 (1.2-5.4) L 06/28/18 08:30 [place] # 1.6 K/mm3 (0.0-0.8) H 06/28/18 08:30 Eos # 0.1 K/mm3 (0.0-0.4) 06/28/18 08:30 Baso # 0.0 K/mm3 (0.0-0.1) 06/28/18 08:30 Add Manual Diff Complete 06/27/18 09:29 Total Counted 100 06/27/18 09:29 Seg Neutrophils % 83.4 % (40.0-70.0) H 06/28/18 08:30 Seg Neuts % (Manual) 91.0 % (40.0-70.0) H 06/27/18 09:29 Band Neutrophils % 0 % 06/27/18 09:29 Lymphocytes % (Manual) 3.0 % (13.4-35.0) L 06/27/18 09:29 Reactive Lymphs % (Man) 0 % 06/27/18 09:29 Monocytes % (Manual) 6.0 % (0.0-7.3) 06/27/18 09:29 Eosinophils % (Manual) 0 % (0.0-4.3) 06/27/18 09:29 Basophils % (Manual) 0 % (0.0-1.8) 06/27/18 09:29 Metamyelocytes % 0 % 06/27/18 09:29 Myelocytes % 0 % 06/27/18 09:29 Promyelocytes % 0 % 06/27/18 09:29 Blast Cells % 0 % 06/27/18 09:29 Nucleated RBC % Not Reportable 06/27/18 09:29 Seg Neutrophils # 13.1 K/mm3 (1.8-7.7) H 06/28/18 08:30 Seg Neutrophils # Man 14.8 K/mm3 (1.8-7.7) H 06/27/18 09:29 Band Neutrophils # 0.0 K/mm3 06/27/18 09:29 Lymphocytes # (Manual) 0.5 K/mm3 (1.2-5.4) L 06/27/18 09:29 Abs React Lymphs (Man) 0.0 K/mm3 06/27/18 09:29 Monocytes # (Manual) 1.0 K/mm3 (0.0-0.8) H 06/27/18 09:29 Eosinophils # (Manual) 0.0 K/mm3 (0.0-0.4) 06/27/18 09:29 Basophils # (Manual) 0.0 K/mm3 (0.0-0.1) 06/27/18 09:29 Metamyelocytes # 0.0 K/mm3 06/27/18 09:29 Myelocytes # 0.0 K/mm3 06/27/18 09:29 Promyelocytes # 0.0 K/mm3 06/27/18 09:29 Blast Cells # 0.0 K/mm3 06/27/18 09:29 WBC Morphology Not Reportable 06/27/18 09:29 Hypersegmented Neuts Not Reportable 06/27/18 09:29 Hyposegmented Neuts Not Reportable 06/27/18 09:29 Hypogranular Neuts Not Reportable 06/27/18 09:29 Smudge Cells Not Reportable 06/27/18 09:29 Toxic Granulation Not Reportable 06/27/18 09:29 Toxic Vacuolation Not Reportable 06/27/18 09:29 Dohle Bodies Not Reportable 06/27/18 09:29 Pelger-Huet Anomaly Not Reportable 06/27/18 09:29 Sushma Rods Not Reportable 06/27/18 09:29 Platelet Estimate Consistent w auto 06/27/18 09:29 Clumped Platelets Not Reportable 06/27/18 09:29 Plt Clumps, EDTA Not Reportable 06/27/18 09:29 Large Platelets Not Reportable 06/27/18 09:29 Giant Platelets Not Reportable 06/27/18 09:29 Platelet Satelliting Not Reportable 06/27/18 09:29 Plt Morphology Comment Not Reportable 06/27/18 09:29 RBC Morphology Not Reportable 06/27/18 09:29 Dimorphic RBCs Not Reportable 06/27/18 09:29 Polychromasia Not Reportable 06/27/18 09:29 Hypochromasia Few 06/27/18 09:29 Poikilocytosis 2+ 06/27/18 09:29 Anisocytosis Not Reportable 06/27/18 09:29 Microcytosis Rare 06/27/18 09:29 Macrocytosis Not Reportable 06/27/18 09:29 Spherocytes Not Reportable 06/27/18 09:29 Pappenheimer Bodies Not Reportable 06/27/18 09:29 Sickle Cells Not Reportable 06/27/18 09:29 Target Cells 2+ 06/27/18 09:29 Tear Drop Cells Not Reportable 06/27/18 09:29 Ovalocytes Rare 06/27/18 09:29 Helmet Cells Not Reportable 06/27/18 09:29 Samay[place]-Wagener Bodies Not Reportable 06/27/18 09:29 [place] Rings Not Reportable 06/27/18 09:29 Caldwell Cells Not Reportable 06/27/18 09:29 Bite Cells Not Reportable 06/27/18 09:29 Crenated Cell Not Reportable 06/27/18 09:29 Elliptocytes Not Reportable 06/27/18 09:29 Acanthocytes (Spur) Not Reportable 06/27/18 09:29 Rouleaux Not Reportable 06/27/18 09:29 Hemoglobin C Crystals Not Reportable 06/27/18 09:29 Schistocytes Not Reportable 06/27/18 09:29 Malaria parasites Not Reportable 06/27/18 09:29 Saqib Bodies Not Reportable 06/27/18 09:29 Hem Pathologist Commnt No 06/27/18 09:29 POC ABG pH 7.552 (7.35-7.45) H 06/28/18 10:53 POC ABG pCO2 40.8 (35-45) 06/28/18 10:53 POC ABG pO2 83 (80-105) 06/28/18 10:53 POC ABG HCO3 35.9 (22-26 mml/L) 06/28/18 10:53 POC ABG Total CO2 37 (23-27mmol/L) 06/28/18 10:53 POC ABG O2 Sat 97 06/28/18 10:53 POC ABG Base Excess 14 ((-2) - (+3)mmol/L) 06/28/18 10:53 FiO2 30 % 06/28/18 10:53 Sodium 135 mmol/L (137-145) L 07/03/18 08:14 Potassium 3.8 mmol/L (3.6-5.0) 07/03/18 08:14 Chloride 97.7 mmol/L (98-107) L 07/03/18 08:14 Carbon Dioxide 28 mmol/L (22-30) 07/03/18 08:14 Anion Gap 13 mmol/L 07/03/18 08:14 BUN 10 mg/dL (7-17) 07/03/18 08:14 Creatinine 0.5 mg/dL (0.7-1.2) L 07/03/18 08:14 Estimated GFR > 60 ml/min 07/03/18 08:14 BUN/Creatinine Ratio 20 % 07/03/18 08:14 Glucose 68 mg/dL (65-100) 07/03/18 08:14 POC Glucose 90 (70-105) 07/03/18 12:37 Hemoglobin A1c 5.5 % (4-6) 06/17/18 15:08 Osmolality 276 Mosm/kg 06/20/18 07:31 Lactic Acid 1.30 mmol/L (0.7-2.0) 07/02/18 23:33 Uric Acid 9.2 mg/dL (3.5-7.6) H 06/21/18 16:27 Calcium 8.2 mg/dL (8.4-10.2) L 07/03/18 08:14 Phosphorus 2.50 mg/dL (2.5-4.5) 06/20/18 07:31 Magnesium 1.50 mg/dL (1.7-2.3) L 07/03/18 08:14 Total Bilirubin 3.90 mg/dL (0.1-1.2) H 07/01/18 04:39 Direct Bilirubin 1.6 mg/dL (0-0.2) H 06/17/18 11:00 Indirect Bilirubin -1.4 mg/dL 06/17/18 11:00 AST 163 units/L (5-40) H 07/01/18 04:39 ALT 60 units/L (7-56) H 07/01/18 04:39 Alkaline Phosphatase 166 units/L (35-129) H 07/01/18 04:39 Ammonia 38.0 umol/L (25-60) 06/25/18 16:02 Total Creatine Kinase TNR 06/26/18 19:52 CK-MB (CK-2) TNR 06/26/18 19:52 CK-MB (CK-2) Rel Index TNR 06/26/18 19:52 Troponin T TNR 06/26/18 19:52 C-Reactive Protein 4.80 mg/dL (0.00-1.30) H 06/28/18 05:00 Total Protein 4.5 g/dL (6.3-8.2) L 07/01/18 04:39 Albumin 2.0 g/dL (3.9-5) L 07/01/18 04:39 Albumin/Globulin Ratio 0.8 % 07/01/18 04:39 Vitamin B1 <6 nmol/L (8-30) L 06/21/18 16:27 Vitamin B12 1598 pg/mL (211-911) H 06/20/18 20:53 25-OH Vitamin D Total 10 ng/mL (30-100) L 06/20/18 20:53 25-Hydroxy Vitamin D2 . 06/20/18 20:53 25-Hydroxy Vitamin D3 . 06/20/18 20:53 Folate 14.18 ng/mL (7.3-26.0) 06/20/18 20:53 TSH 1.540 mlU/mL (0.270-4.200) 06/27/18 09:29 Free T4 1.78 ng/dL (0.76-1.46) H 06/27/18 09:29 T3 (GILSON) 58 ng/dL (76-181) L 06/20/18 16:51 Urine Color Caryl (Yellow) 06/16/18 Unknown Urine Turbidity Clear (Clear) 06/16/18 Unknown Urine pH 5.0 (5.0-7.0) 06/16/18 Unknown Ur Specific [place] 1.025 (1.003-1.030) 06/16/18 Unknown Urine Protein 100 mg/dl mg/dL (Negative) 06/16/18 Unknown Urine Glucose (UA) 50 mg/dL (Negative) 06/16/18 Unknown Urine Ketones Neg mg/dL (Negative) 06/16/18 Unknown Urine Blood Neg (Negative) 06/16/18 Unknown Urine Nitrite Neg (Negative) 06/16/18 Unknown Urine Bilirubin Neg (Negative) 06/16/18 Unknown Urine Urobilinogen 4.0 mg/dL (<2.0) 06/16/18 Unknown Ur Leukocyte Esterase Neg (Negative) 06/16/18 Unknown Urine WBC (Auto) 4.0 /HPF (0.0-6.0) 06/16/18 Unknown Urine RBC (Auto) 5.0 /HPF (0.0-6.0) 06/16/18 Unknown U Epithel Cells (Auto) 7.0 /HPF (0-13.0) 06/16/18 Unknown Hyaline Casts 49 /LPF 06/16/18 Unknown Urine Mucus Few /HPF 06/16/18 Unknown Urine Osmolality 413 Mosm/kg 06/19/18 Unknown Urine Creatinine 61.7 mg/dL (0.1-20.0) H 06/19/18 Unknown Urine Total Protein 32 mg/dL (5-11.8) H 06/19/18 Unknown Salicylates 5.5 mg/dL (2.8-20.0) 06/16/18 21:43 Urine Opiates Screen Presumptive negative 06/16/18 Unknown Urine Methadone Screen Presumptive negative 06/16/18 Unknown Acetaminophen < 5.0 ug/mL (10.0-30.0) L 06/16/18 21:43 Ur Barbiturates Screen Presumptive negative 06/16/18 Unknown Ur Phencyclidine Scrn Presumptive negative 06/16/18 Unknown Ur Amphetamines Screen Presumptive negative 06/16/18 Unknown U Benzodiazepines Scrn Presumptive negative 06/16/18 Unknown Urine Cocaine Screen Presumptive negative 06/16/18 Unknown U Marijuana (THC) Screen Presumptive negative 06/16/18 Unknown Drugs of Abuse Note Disclamer 06/16/18 Unknown Plasma/Serum Alcohol < 0.01 % (0-0.07) 06/16/18 21:43 Thyroglobulin Antibody See scanned result 06/20/18 16:51 Thyroid Peroxidase Ab See scanned result 06/20/18 16:51 HIV 1&2 Antibody Rapid Non react (Non React) 06/21/18 16:27 HIV P24 Antigen Non react (Non React) 06/21/18 16:27 Active Medications - Current Medications Current Medications: Generic Name Dose Route Start Last Admin Trade Name Freq PRN Reason Stop Dose Admin Acetaminophen 650 mg 06/17/18 03:33 07/02/18 14:01 Tylenol PO 650 mg Q4H PRN Administration Fever >101 Albuterol/Ipratropium 1 ampul 06/27/18 14:00 07/03/18 14:41 Duoneb *Not For Prn Use* IH 1 ampul TIDRT JEANETTE Administration Apixaban 5 mg 06/20/18 16:00 07/03/18 10:14 Eliquis PO 5 mg Q12HR JEANETTE Administration Protocol Atorvastatin Calcium 20 mg 06/19/18 22:00 07/02/18 22:11 Lipitor PO 20 mg QHS JEANETTE Administration Dextrose 50 ml 07/01/18 11:50 D50w (25gm) Syringe IV PRN PRN Hypoglycemia Digoxin 0.125 mg 06/24/18 17:00 07/02/18 17:21 Lanoxin PO 0.125 mg DAILY@1700 JEANETTE Administration Famotidine 20 mg 06/27/18 12:00 07/03/18 10:14 Pepcid PO 20 mg DAILY JEANETTE Administration Insulin Human Lispro 0 unit 07/01/18 16:30 07/03/18 11:30 Humalog SUB-Q Not Given ACHS JEANETTE Protocol Lactulose 20 gm 06/25/18 12:00 07/03/18 11:49 Cephulac PO 20 gm Q6HR JEANETTE Administration Metoprolol Tartrate 25 mg 06/25/18 09:00 07/03/18 09:00 Lopressor PO Not Given Q8H JEANETTE Ondansetron HCl 4 mg 06/17/18 03:24 Zofran IV Q8H PRN Nausea And Vomiting Sertraline HCl 50 mg 06/24/18 10:00 07/03/18 10:14 Zoloft PO 50 mg DAILY JEANETTE Administration Nutrition/Malnutrition Assess - Dietary Evaluation Nutrition/Malnutrition Findings: Nutrition Notes Start: 06/24/18 15:14 Freq: Status: Active Protocol: Document 07/01/18 10:55 CP (Rec: 07/01/18 11:00 CP [id number]) Co-Sign 07/01/18 10:55 LP Nutrition Notes Need for Assessment generated from: MD Order Initial or Follow up Assessment Current Diagnosis Acute Kidney Injury, Hypertension,Heart Failure, Respiratory Failure Other Pertinent Diagnosis s/p cardiac arrest, psychosis, AMS Current Diet Mechanical Soft Labs/Tests K 3.5 POC BG 206 Pertinent Medications Reviewed Height 5 ft 5 in Weight 80.6 kg [place] Body Weight (kg) 56.81 BMI 29.5 Subjective/Other Information MD screen for poor oral intake . Per RN, pt has been consuming only 25% of meals and has had a poor appetite. Percent of energy/protein needs met: 33%/31% Burn Absent Trauma Absent #1 Nutrition Diagnosis Inadequate oral intake Diagnosis Progress(for reassessment Continues documentation) Is patient on ventilator? No Is Patient Ambulatory and/or Out of Bed No REE-([facility]-confined to bed) [phone] Calculation Used for Recommendations [facility] Additional Notes Pro needs 1-1.2g/k-96 g/ day Fluid needs 1ml/kcall Nutrition Intervention Change Diet Order: Continue current Add Supplement/Snack (indicate name/kcal Ensure Enlive Flavor Rotate /protein ) BID Provides kCal: 700 Provides Protein (gm) 40 Goal #1 PO intake to meet at least 80% of energy and protein needs Anticipated Discharge Needs: Unable to determine at this time Follow-Up By: 07/04/18 Additional Comments F/U: PO/ONS intakes
[2018-07-03] MEDS: LANOXIN PO SCH (16:13)
[2018-07-04] MEDS: ELIQUIS PO SCH ×3 (00:39→21:49)
[2018-07-04] MEDS: CEPHULAC PO SCH ×2 (00:40→05:39)
[2018-07-04] MEDS: LOPRESSOR PO SCH ×3 (00:41→16:36)
[2018-07-04 06:04] LABS: Hematocrit 36.2 % (30.3-42.9); Hemoglobin 11.9 gm/dl (10.1-14.3); Mean Corpuscular HGB Conc 33 % (30-34); Mean Corpuscular Volume 77 fl (79-97); Platelet Count 103 K/mm3 (140-440); Red Blood Count 4.71 M/mm3 (3.65-5.03); Red Cell Distribution Width 18.5 % (13.2-15.2)
[2018-07-04 06:19] LABS: BUN/Creatinine Ratio 22; Blood Urea Nitrogen 11 mg/dL (7-17); Calcium 8.2 mg/dL (8.4-10.2); Hemolysis Index 6
[2018-07-04] MEDS: DUONEB *Not for PRN Use IH SCH ×3 (07:25→21:11)
[2018-07-04] MEDS: HumaLOG SUB-Q SCH ×4 (08:52→21:31)
[2018-07-04] MEDS: ZOLOFT PO SCH (09:38)
[2018-07-04] MEDS: PEPCID PO SCH (09:38)
[2018-07-04] MEDS ORDERED: CEPHULAC PO PRN (12:00)
--- NOTE | 2018-07-04 12:28 | Progress Note ---
Assessment and Plan - Patient Problems (1) Acute on chronic systolic heart failure Current Visit: No Status: Acute Plan to address problem: Medical therapy for severe dilated cardiomyopathy and chronic systolic heart failure. Continue oral therapy for heart failure as previously outlined. Subjective Date of service: 07/04/18 Principal diagnosis: altered mental status, psychosis, chronic systolic heart failure, Interval history: Patient is comfortable sitting on in her chair, no acute distress. Objective Vital Signs Temp Pulse Pulse Pulse Resp Resp BP 07/04/18 10:00 07/04/18 08:20 77 18 07/04/18 08:10 76 18 07/04/18 04:00 98.0 F 96 H 18 07/04/18 00:41 97 H 112/67 07/04/18 00:00 98.0 F 97 H 18 112/67 07/03/18 22:15 104 H 16 07/03/18 19:51 98.3 F 104 H 18 124/75 07/03/18 19:19 102 H 07/03/18 14:43 97 H 18 07/03/18 12:40 98.2 F 97 H 18 BP Pulse Ox 07/04/18 10:00 95 07/04/18 08:20 07/04/18 08:10 07/04/18 04:00 98/66 95 07/04/18 00:41 07/04/18 00:00 95 07/03/18 22:15 96 07/03/18 19:51 96 07/03/18 19:19 07/03/18 14:43 07/03/18 12:40 145/66 100 - Physical Examination General: No Apparent Distress, Cachectic HEENT: Positive: PERRL Neck: Positive: trachea midline Cardiac: Positive: Reg Rate and Rhythm Lungs: Positive: Decreased Breath Sounds Neuro: Positive: Grossly Intact Abdomen: Positive: Unremarkable Skin: Positive: Clear Extremities: Absent: edema - Labs and Meds CBC 07/04/18 Range/Units 05:36 WBC 9.4 (4.5-11.0) K/mm3 RBC 4.71 (3.65-5.03) M/mm3 Hgb 11.9 (10.1-14.3) gm/dl Hct 36.2 (30.3-42.9) % Plt Count 103 L (140-440) K/mm3 Comprehensive Metabolic Panel 07/04/18 Range/Units 05:36 Sodium 135 L (137-145) mmol/L Potassium 3.8 (3.6-5.0) mmol/L Chloride 99.2 (98-107) mmol/L Carbon Dioxide 27 (22-30) mmol/L BUN 11 (7-17) mg/dL Creatinine 0.5 L (0.7-1.2) mg/dL Glucose 76 (65-100) mg/dL Calcium 8.2 L (8.4-10.2) mg/dL - Allied health notes Allied health notes reviewed: nursing
--- NOTE | 2018-07-04 13:18 | Progress Note ---
Assessment and Plan - Patient Problems (1) Hyponatremia with decreased serum osmolality Current Visit: Yes Status: Acute Plan to address problem: Likely in the setting of fluid overload. Continues on current diuretic regimen. Cardiology following, now transferred out to telemetry. Overall serum sodium levels are stable (2) Fluid overload Current Visit: Yes Status: Chronic Qualifiers: Hypervolemia type: other Qualified Code(s): E87.79 - Other fluid overload Plan to address problem: Agree with current regimen and diuretic management. Would recommend fluid restrictions and appropriate low-sodium diet given her history of end-stage heart disease and cardiomyopathy. Further management per cardiology. (3) Acute on chronic systolic heart failure Current Visit: No Status: Acute Plan to address problem: Follow up with further recommendations per cardiology. Will continue on current diuretic regimen along with appropriate fluid restrictions and low sodium diet. (4) Altered mental status Current Visit: Yes Status: Acute Plan to address problem: We'll continue to monitor closely. Psychiatry evaluation noted. (5) HTN (hypertension) Current Visit: No Status: Chronic Plan to address problem: Continue on current regimen and will monitor. Subjective Date of service: 07/04/18 Principal diagnosis: altered mental status, psychosis, chronic systolic heart failure, Interval history: No acute issues overnight. Labs noted and overall renal function is stable at this time. Objective - Vital Signs Vital signs: Vital Signs - 12hr 07/04/18 07/04/18 07/04/18 04:00 08:10 08:20 Temperature 98.0 F Pulse Rate 96 H Pulse Rate [ 76 77 Throughout] Respiratory 18 Rate Respiratory 18 18 Rate [ Throughout] Blood Pressure 98/66 [Left] O2 Sat by Pulse 95 Oximetry 07/04/18 10:00 Temperature Pulse Rate Pulse Rate [ Throughout] Respiratory Rate Respiratory Rate [ Throughout] Blood Pressure [Left] O2 Sat by Pulse 95 Oximetry - General Appearance General appearance: cachectic, chronically ill, frail EENT: ATNC, PERRL Neck: no JVD, no thyromegaly Respiratory: Present: Clear to Ascultation Cardiology: regular, S1S2 Gastrointestinal: normal Integumentary: warm and dry Neurologic: confused Psychiatric: agitated - Lab 07/04/18 05:36 07/04/18 05:36 Most recent lab results Calcium 8.2 mg/dL (8.4-10.2) L 07/04/18 05:36 Phosphorus 2.50 mg/dL (2.5-4.5) 06/20/18 07:31 Magnesium 1.50 mg/dL (1.7-2.3) L 07/03/18 08:14 Urine Creatinine 61.7 mg/dL (0.1-20.0) H 06/19/18 Unknown Urine Total Protein 32 mg/dL (5-11.8) H 06/19/18 Unknown - Allied health notes Allied health notes reviewed: nursing Medications & Allergies - Medications Allergies/Adverse Reactions: Allergies Penicillins Allergy (Verified 09/04/17 14:11) Unknown aspirin Adverse Reaction (Verified 09/04/17 14:10) Nausea haloperidol [From Haldol] Adverse Reaction (Verified 07/02/18 14:24) Anaphylaxis NSAIDS (Non-Steroidal Anti-Inflamma Adverse Reaction (Verified 09/04/17 14:10) Nausea Pork/Porcine Containing Products Adverse Reaction (Verified 11/01/17 09:04) Nausea Home Medications: Home Medications Medication Instructions Recorded Confirmed Last Taken Type Apixaban [Eliquis] 5 mg PO DAILY 09/06/17 07/02/18 Unknown History AtorvaSTATin [Lipitor] 20 mg PO DAILY 09/06/17 07/02/18 Unknown History Loperamide HCl [Loperamide] 2 mg PO DAILY 09/06/17 07/02/18 Unknown History Sertraline [Zoloft] 50 mg PO DAILY 09/06/17 07/02/18 10/17/17 10:00 History Sucralfate [Carafate] 1 gm PO DAILY 09/06/17 07/02/18 Unknown History Carvedilol [Coreg] 12.5 mg PO BID #60 tablet 09/08/17 07/02/18 Unknown Rx Lisinopril [Zestril TAB] 5 mg PO QDAY #30 tablet 09/08/17 07/02/18 Unknown Rx Doxycycline [Vibramycin CAP] 100 mg PO Q12HR #10 capsule 11/02/17 07/02/18 Unknown Rx Furosemide [Lasix] 20 mg PO QDAY #30 tablet 11/02/17 07/02/18 Unknown Rx Active Medications: Generic Name Dose Route Start Last Admin Trade Name Freq PRN Reason Stop Dose Admin Acetaminophen 650 mg 06/17/18 03:33 07/02/18 14:01 Tylenol PO 650 mg Q4H PRN Administration Fever >101 Albuterol/Ipratropium 1 ampul 06/27/18 14:00 07/04/18 07:25 Duoneb *Not For Prn Use* IH 1 ampul TIDRT [facility] Administration Apixaban 5 mg 06/20/18 16:00 07/04/18 09:37 Eliquis PO 5 mg Q12HR JEANETTE Administration Protocol Atorvastatin Calcium 20 mg 06/19/18 22:00 07/04/18 00:39 Lipitor PO Not Given QHS [facility] Dextrose 50 ml 07/01/18 11:50 D50w (25gm) Syringe IV PRN PRN Hypoglycemia Digoxin 0.125 mg 06/24/18 17:00 07/03/18 16:13 Lanoxin PO 0.125 mg DAILY@1700 [facility] Administration Famotidine 20 mg 06/27/18 12:00 07/04/18 09:38 Pepcid PO 20 mg DAILY [facility] Administration Insulin Human Lispro 0 unit 07/01/18 16:30 07/04/18 12:00 Humalog SUB-Q Not Given ACHS [facility] Protocol Lactulose 20 gm 07/04/18 12:00 Cephulac PO Q6HR PRN CONSTIPATION Metoprolol Tartrate 25 mg 06/25/18 09:00 07/04/18 09:37 Lopressor PO 25 mg Q8H [facility] Administration Ondansetron HCl 4 mg 06/17/18 03:24 Zofran IV Q8H PRN Nausea And Vomiting Sertraline HCl 50 mg 06/24/18 10:00 07/04/18 09:38 Zoloft PO 50 mg DAILY [facility] Administration
--- NOTE | 2018-07-04 14:04 | Progress Note ---
Subjective - Reason for Consult Consult date: 07/04/18 Reason for consult: Psychiatry Follow-up - Chief Complaint Chief complaint: "Hello there" This is a follow to the original consult. Patient is a 68-year-old female who presented to the ED with altered mental status. Today the patient is calm with some confusion during the assessment. She was asked several questions about her current hospital stay and family in [place], some of her answers were not logical. She asked me the provider to come back tomorrow to complete the assessment. Per the notes, the patient had been declining for several months prior to her admission to the hospital ([facility]) per family members. I the provider spoke with the patient's nephew Dandy on 06/21/2018. Basically, he stated that this was the patient's first episode of bizarre behavior. No gestures of SI/HI's. Mental Status Exam - Vital signs Last Vital Signs Temp 98.0 F 07/04/18 04:00 Pulse 77 07/04/18 08:20 Resp 18 07/04/18 08:20 BP 98/66 07/04/18 04:00 Pulse Ox 95 07/04/18 10:00 - Exam Narrative exam: MSE: Appearance: calm Behavior: regular eye contact Speech: regular rate and loud tone Mood: "okay" Affect: flat Thought Process: unable to assess Thought Content: no gestures of SI/HI's and AVH's Motor Activity: sitting up in the bed Cognition: A/O x2, with some confusion Insight: unable to assess Judgment: unable to assess Assessment and Plan Impression: Today the patient is calm with some confusion during the assessment. Elevated LF's. Recommendation/Plan: Gather more collateral information to help determine proper treatment and to R/O a Neuro Cog DO. .Continue home medication Zoloft 50 mg PO daily for depression. Recommend Delirium precautions below: 1. Frequently reorient patient and involve him/her in their care (simple explanations of procedures, tests, medications). 2. Lights on and shades open during daytime hours. 3. Write date and goals of care in a visible place. 4. Try to avoid unnecessary interruptions to sleep during nighttime hours. 5. Obtain glasses, hearing aids from home if patient uses these at baseline. 6. Avoid medications that may exacerbate delirium (especially narcotics, benzodiazepines, barbiturates, ambien, lunesta, and medications with excessive anticholinergic properties). 7. Continue 1:1 sitter for safety. Dispo: The patient pending SNF placement per the notes.. Staffed with Dr Donna Rey.
--- NOTE | 2018-07-04 15:52 | Progress Note ---
Assessment and Plan Assessment and plan: Patient is 68 yo woman with a history of hypertension, CHF and Atrial fibrillation who presented with altered mental status. She was climbing a fence, running wild; therefore, brought to ED. No previous psych history. CT neg. She was sedated in ED, and admitted. MRI Brain unremarkable. Patient evaluated by Neuro and psychiatry. She was initially a 1013 but is was rescinded. It appears Neurology believes patient AMS is a psychotic disorder but Psychiatry has not really making a definitive diagnosis. I believe she has Schizoaffective disorder or Dementia with psychotic features. During the hospital stay, She received Haldol to obtain CT head but had PEA cardiac arrest on 06/26/18, she received Epinephrine then developed pulseless Ventricular fibrillation and 1 shock via defibrillator was delivered with return of pulse. She was also found to have a very low blood glucose during the cardiac arrest and was treated with IV dextrose. She was intubated during the Code blue and sent to ICU. 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 -Hyponatremia, due to CHF, na 130 today improved from 122: Nephrology following -Elevated LFT, Likely congestive hepatopathy due to end stage NICMP,monitor as n eeded -Severe protein calorie malnutrition: Side Trimmer consulted -SIRS- ?underlying PNA doubt based on xray review and lack of fever or leukocytoisis: check blood culture- NO GROWTH. Antibiotics discontinued -Persistently elevated Lactic acidosis:-Likely secondary to hypoperfusion- improving -Hypokalemia: replace -Remains on restraints for safety -DVT prophylaxis: Patient is on Eliquis POOR PROGNOSIS. patient was in Hospice for end stage Heart failure. Transfer to Telemetry. Hospice Discussion 07/02/2018 I called nephmarcell Dorman [phone] and gave update, who is the NOK. Patient an estranged son Lupillo in [place], [place] and unreachable per Dandy. Patient mental status has been declining over 3-4 months. We discussed Hospice. He will run it by patient brother Shoaib Burdick which his father. His number is [phone] which I called via green chain operator's help. He will consider. Patient has 5 siblings d/c Dobutamine per Cardiology try to wean O2 History Interval history: Patient was seen and examined. Follow-up on current diagnosis AMS, still present. Overnight uneventful. Patient is confused. Imaging, nursing note, chart, labs and old chart reviewed. Discussed with patient. Hospitalist Physical - Physical exam Narrative exam: GEN: WDWN, NAD, Awake, Alert, confused HEENT: NCAT, EOMI, PERRL, OP Clear NECK: supple, no adenopathy, no thyromegaly, no JVD CVS/HEART: irregular, normal S1S2, pulses present bilaterally CHEST/LUNGS: CTA B, Symmetrical chest expansion, good air entry bilaterally GI/Abdomen: soft, NTND, good bowel sounds, no guarding or rebound /Bladder: no suprapubic tenderness, no CVA or paraspinal tenderness EXT/Skin: no c/c, +edema, no obvious rash MSK: FROM x 4 Neuro: CN 2-12 grossly intact, not following commands Psych: calm - Constitutional Vitals: Temp Pulse Resp BP Pulse Ox 98.0 F 78 18 98/66 95 07/04/18 04:00 07/04/18 14:19 07/04/18 14:19 07/04/18 04:00 07/04/18 10:00 General appearance: Present: no acute distress Results - Labs CBC & Chem 7: 07/04/18 05:36 07/04/18 05:36 Labs: Laboratory Last Values WBC 9.4 K/mm3 (4.5-11.0) 07/04/18 05:36 RBC 4.71 M/mm3 (3.65-5.03) 07/04/18 05:36 Hgb 11.9 gm/dl (10.1-14.3) 07/04/18 05:36 Hct 36.2 % (30.3-42.9) 07/04/18 05:36 MCV 77 fl (79-97) L 07/04/18 05:36 MCH 25 pg (28-32) L 07/04/18 05:36 MCHC 33 % (30-34) 07/04/18 05:36 RDW 18.5 % (13.2-15.2) H 07/04/18 05:36 Plt Count 103 K/mm3 (140-440) L 07/04/18 05:36 Lymph % (Auto) 6.0 % (13.4-35.0) L 06/28/18 08:30 [place] % (Auto) 10.0 % (0.0-7.3) H 06/28/18 08:30 Eos % (Auto) 0.3 % (0.0-4.3) 06/28/18 08:30 Baso % (Auto) 0.3 % (0.0-1.8) 06/28/18 08:30 Lymph # 0.9 K/mm3 (1.2-5.4) L 06/28/18 08:30 [place] # 1.6 K/mm3 (0.0-0.8) H 06/28/18 08:30 Eos # 0.1 K/mm3 (0.0-0.4) 06/28/18 08:30 Baso # 0.0 K/mm3 (0.0-0.1) 06/28/18 08:30 Add Manual Diff Complete 06/27/18 09:29 Total Counted 100 06/27/18 09:29 Seg Neutrophils % 83.4 % (40.0-70.0) H 06/28/18 08:30 Seg Neuts % (Manual) 91.0 % (40.0-70.0) H 06/27/18 09:29 Band Neutrophils % 0 % 06/27/18 09:29 Lymphocytes % (Manual) 3.0 % (13.4-35.0) L 06/27/18 09:29 Reactive Lymphs % (Man) 0 % 06/27/18 09:29 Monocytes % (Manual) 6.0 % (0.0-7.3) 06/27/18 09:29 Eosinophils % (Manual) 0 % (0.0-4.3) 06/27/18 09:29 Basophils % (Manual) 0 % (0.0-1.8) 06/27/18 09:29 Metamyelocytes % 0 % 06/27/18 09:29 Myelocytes % 0 % 06/27/18 09:29 Promyelocytes % 0 % 06/27/18 09:29 Blast Cells % 0 % 06/27/18 09:29 Nucleated RBC % Not Reportable 06/27/18 09:29 Seg Neutrophils # 13.1 K/mm3 (1.8-7.7) H 06/28/18 08:30 Seg Neutrophils # Man 14.8 K/mm3 (1.8-7.7) H 06/27/18 09:29 Band Neutrophils # 0.0 K/mm3 06/27/18 09:29 Lymphocytes # (Manual) 0.5 K/mm3 (1.2-5.4) L 06/27/18 09:29 Abs React Lymphs (Man) 0.0 K/mm3 06/27/18 09:29 Monocytes # (Manual) 1.0 K/mm3 (0.0-0.8) H 06/27/18 09:29 Eosinophils # (Manual) 0.0 K/mm3 (0.0-0.4) 06/27/18 09:29 Basophils # (Manual) 0.0 K/mm3 (0.0-0.1) 06/27/18 09:29 Metamyelocytes # 0.0 K/mm3 06/27/18 09:29 Myelocytes # 0.0 K/mm3 06/27/18 09:29 Promyelocytes # 0.0 K/mm3 06/27/18 09:29 Blast Cells # 0.0 K/mm3 06/27/18 09:29 WBC Morphology Not Reportable 06/27/18 09:29 Hypersegmented Neuts Not Reportable 06/27/18 09:29 Hyposegmented Neuts Not Reportable 06/27/18 09:29 Hypogranular Neuts Not Reportable 06/27/18 09:29 Smudge Cells Not Reportable 06/27/18 09:29 Toxic Granulation Not Reportable 06/27/18 09:29 Toxic Vacuolation Not Reportable 06/27/18 09:29 Dohle Bodies Not Reportable 06/27/18 09:29 Pelger-Huet Anomaly Not Reportable 06/27/18 09:29 Sushma Rods Not Reportable 06/27/18 09:29 Platelet Estimate Consistent w auto 06/27/18 09:29 Clumped Platelets Not Reportable 06/27/18 09:29 Plt Clumps, EDTA Not Reportable 06/27/18 09:29 Large Platelets Not Reportable 06/27/18 09:29 Giant Platelets Not Reportable 06/27/18 09:29 Platelet Satelliting Not Reportable 06/27/18 09:29 Plt Morphology Comment Not Reportable 06/27/18 09:29 RBC Morphology Not Reportable 06/27/18 09:29 Dimorphic RBCs Not Reportable 06/27/18 09:29 Polychromasia Not Reportable 06/27/18 09:29 Hypochromasia Few 06/27/18 09:29 Poikilocytosis 2+ 06/27/18 09:29 Anisocytosis Not Reportable 06/27/18 09:29 Microcytosis Rare 06/27/18 09:29 Macrocytosis Not Reportable 06/27/18 09:29 Spherocytes Not Reportable 06/27/18 09:29 Pappenheimer Bodies Not Reportable 06/27/18 09:29 Sickle Cells Not Reportable 06/27/18 09:29 Target Cells 2+ 06/27/18 09:29 Tear Drop Cells Not Reportable 06/27/18 09:29 Ovalocytes Rare 06/27/18 09:29 Helmet Cells Not Reportable 06/27/18 09:29 [place] Bodies Not Reportable 06/27/18 09:29 [place] Rings Not Reportable 06/27/18 09:29 [place] Cells Not Reportable 06/27/18 09:29 Bite Cells Not Reportable 06/27/18 09:29 Crenated Cell Not Reportable 06/27/18 09:29 Elliptocytes Not Reportable 06/27/18 09:29 Acanthocytes (Spur) Not Reportable 06/27/18 09:29 Rouleaux Not Reportable 06/27/18 09:29 Hemoglobin C Crystals Not Reportable 06/27/18 09:29 Schistocytes Not Reportable 06/27/18 09:29 Malaria parasites Not Reportable 06/27/18 09:29 Saqib Bodies Not Reportable 06/27/18 09:29 Hem Pathologist Commnt No 06/27/18 09:29 POC ABG pH 7.552 (7.35-7.45) H 06/28/18 10:53 POC ABG pCO2 40.8 (35-45) 06/28/18 10:53 POC ABG pO2 83 (80-105) 06/28/18 10:53 POC ABG HCO3 35.9 (22-26 mml/L) 06/28/18 10:53 POC ABG Total CO2 37 (23-27mmol/L) 06/28/18 10:53 POC ABG O2 Sat 97 06/28/18 10:53 POC ABG Base Excess 14 ((-2) - (+3)mmol/L) 06/28/18 10:53 FiO2 30 % 06/28/18 10:53 Sodium 135 mmol/L (137-145) L 07/04/18 05:36 Potassium 3.8 mmol/L (3.6-5.0) 07/04/18 05:36 Chloride 99.2 mmol/L (98-107) 07/04/18 05:36 Carbon Dioxide 27 mmol/L (22-30) 07/04/18 05:36 Anion Gap 13 mmol/L 07/04/18 05:36 BUN 11 mg/dL (7-17) 07/04/18 05:36 Creatinine 0.5 mg/dL (0.7-1.2) L 07/04/18 05:36 Estimated GFR > 60 ml/min 07/04/18 05:36 BUN/Creatinine Ratio 22 % 07/04/18 05:36 Glucose 76 mg/dL (65-100) 07/04/18 05:36 POC Glucose 61 (70-105) L 07/04/18 08:54 Hemoglobin A1c 5.5 % (4-6) 06/17/18 15:08 Osmolality 276 Mosm/kg 06/20/18 07:31 Lactic Acid 1.30 mmol/L (0.7-2.0) 07/02/18 23:33 Uric Acid 9.2 mg/dL (3.5-7.6) H 06/21/18 16:27 Calcium 8.2 mg/dL (8.4-10.2) L 07/04/18 05:36 Phosphorus 2.50 mg/dL (2.5-4.5) 06/20/18 07:31 Magnesium 1.50 mg/dL (1.7-2.3) L 07/03/18 08:14 Total Bilirubin 3.90 mg/dL (0.1-1.2) H 07/01/18 04:39 Direct Bilirubin 1.6 mg/dL (0-0.2) H 06/17/18 11:00 Indirect Bilirubin -1.4 mg/dL 06/17/18 11:00 AST 163 units/L (5-40) H 07/01/18 04:39 ALT 60 units/L (7-56) H 07/01/18 04:39 Alkaline Phosphatase 166 units/L (35-129) H 07/01/18 04:39 Ammonia 38.0 umol/L (25-60) 06/25/18 16:02 Total Creatine Kinase TNR 06/26/18 19:52 CK-MB (CK-2) TNR 06/26/18 19:52 CK-MB (CK-2) Rel Index TNR 06/26/18 19:52 Troponin T TNR 06/26/18 19:52 C-Reactive Protein 4.80 mg/dL (0.00-1.30) H 06/28/18 05:00 Total Protein 4.5 g/dL (6.3-8.2) L 07/01/18 04:39 Albumin 2.0 g/dL (3.9-5) L 07/01/18 04:39 Albumin/Globulin Ratio 0.8 % 07/01/18 04:39 Vitamin B1 <6 nmol/L (8-30) L 06/21/18 16:27 Vitamin B12 1598 pg/mL (211-911) H 06/20/18 20:53 25-OH Vitamin D Total 10 ng/mL (30-100) L 06/20/18 20:53 25-Hydroxy Vitamin D2 . 06/20/18 20:53 25-Hydroxy Vitamin D3 . 06/20/18 20:53 Folate 14.18 ng/mL (7.3-26.0) 06/20/18 20:53 TSH 1.540 mlU/mL (0.270-4.200) 06/27/18 09:29 Free T4 1.78 ng/dL (0.76-1.46) H 06/27/18 09:29 T3 (GILSON) 58 ng/dL (76-181) L 06/20/18 16:51 Urine Color Caryl (Yellow) 06/16/18 Unknown Urine Turbidity Clear (Clear) 06/16/18 Unknown Urine pH 5.0 (5.0-7.0) 06/16/18 Unknown Ur Specific [place] 1.025 (1.003-1.030) 06/16/18 Unknown Urine Protein 100 mg/dl mg/dL (Negative) 06/16/18 Unknown Urine Glucose (UA) 50 mg/dL (Negative) 06/16/18 Unknown Urine Ketones Neg mg/dL (Negative) 06/16/18 Unknown Urine Blood Neg (Negative) 06/16/18 Unknown Urine Nitrite Neg (Negative) 06/16/18 Unknown Urine Bilirubin Neg (Negative) 06/16/18 Unknown Urine Urobilinogen 4.0 mg/dL (<2.0) 06/16/18 Unknown Ur Leukocyte Esterase Neg (Negative) 06/16/18 Unknown Urine WBC (Auto) 4.0 /HPF (0.0-6.0) 06/16/18 Unknown Urine RBC (Auto) 5.0 /HPF (0.0-6.0) 06/16/18 Unknown U Epithel Cells (Auto) 7.0 /HPF (0-13.0) 06/16/18 Unknown Hyaline Casts 49 /LPF 06/16/18 Unknown Urine Mucus Few /HPF 06/16/18 Unknown Urine Osmolality 413 Mosm/kg 06/19/18 Unknown Urine Creatinine 61.7 mg/dL (0.1-20.0) H 06/19/18 Unknown Urine Total Protein 32 mg/dL (5-11.8) H 06/19/18 Unknown Salicylates 5.5 mg/dL (2.8-20.0) 06/16/18 21:43 Urine Opiates Screen Presumptive negative 06/16/18 Unknown Urine Methadone Screen Presumptive negative 06/16/18 Unknown Acetaminophen < 5.0 ug/mL (10.0-30.0) L 06/16/18 21:43 Ur Barbiturates Screen Presumptive negative 06/16/18 Unknown Ur Phencyclidine Scrn Presumptive negative 06/16/18 Unknown Ur Amphetamines Screen Presumptive negative 06/16/18 Unknown U Benzodiazepines Scrn Presumptive negative 06/16/18 Unknown Urine Cocaine Screen Presumptive negative 06/16/18 Unknown U Marijuana (THC) Screen Presumptive negative 06/16/18 Unknown Drugs of Abuse Note Disclamer 06/16/18 Unknown Plasma/Serum Alcohol < 0.01 % (0-0.07) 06/16/18 21:43 Thyroglobulin Antibody See scanned result 06/20/18 16:51 Thyroid Peroxidase Ab See scanned result 06/20/18 16:51 HIV 1&2 Antibody Rapid Non react (Non React) 06/21/18 16:27 HIV P24 Antigen Non react (Non React) 06/21/18 16:27 Active Medications - Current Medications Current Medications: Generic Name Dose Route Start Last Admin Trade Name Freq PRN Reason Stop Dose Admin Acetaminophen 650 mg 06/17/18 03:33 07/02/18 14:01 Tylenol PO 650 mg Q4H PRN Administration Fever >101 Albuterol/Ipratropium 1 ampul 06/27/18 14:00 07/04/18 13:51 Duoneb *Not For Prn Use* IH 1 ampul TIDRT JEANETTE Administration Apixaban 5 mg 06/20/18 16:00 07/04/18 09:37 Eliquis PO 5 mg Q12HR JEANETTE Administration Protocol Atorvastatin Calcium 20 mg 06/19/18 22:00 07/04/18 00:39 Lipitor PO Not Given QHS JEANETTE Dextrose 50 ml 07/01/18 11:50 D50w (25gm) Syringe IV PRN PRN Hypoglycemia Digoxin 0.125 mg 06/24/18 17:00 07/03/18 16:13 Lanoxin PO 0.125 mg DAILY@1700 JEANETTE Administration Famotidine 20 mg 06/27/18 12:00 07/04/18 09:38 Pepcid PO 20 mg DAILY JEANETTE Administration Insulin Human Lispro 0 unit 07/01/18 16:30 07/04/18 12:00 Humalog SUB-Q Not Given ACHS JEANETTE Protocol Lactulose 20 gm 07/04/18 12:00 Cephulac PO Q6HR PRN CONSTIPATION Metoprolol Tartrate 25 mg 06/25/18 09:00 07/04/18 09:37 Lopressor PO 25 mg Q8H JEANETTE Administration Ondansetron HCl 4 mg 06/17/18 03:24 Zofran IV Q8H PRN Nausea And Vomiting Sertraline HCl 50 mg 06/24/18 10:00 07/04/18 09:38 Zoloft PO 50 mg DAILY JEANETTE Administration Nutrition/Malnutrition Assess - Dietary Evaluation Nutrition/Malnutrition Findings: Nutrition Notes Start: 06/24/18 15:14 Freq: Status: Active Protocol: Document 07/01/18 10:55 CP (Rec: 07/01/18 11:00 CP [id number]) Co-Sign 07/01/18 10:55 LP Nutrition Notes Need for Assessment generated from: MD Order Initial or Follow up Assessment Current Diagnosis Acute Kidney Injury, Hypertension,Heart Failure, Respiratory Failure Other Pertinent Diagnosis s/p cardiac arrest, psychosis, AMS Current Diet Mechanical Soft Labs/Tests K 3.5 POC BG 206 Pertinent Medications Reviewed Height 5 ft 5 in Weight 80.6 kg [place] Body Weight (kg) 56.81 BMI 29.5 Subjective/Other Information MD screen for poor oral intake . Per RN, pt has been consuming only 25% of meals and has had a poor appetite. Percent of energy/protein needs met: 33%/31% Burn Absent Trauma Absent #1 Nutrition Diagnosis Inadequate oral intake Diagnosis Progress(for reassessment Continues documentation) Is patient on ventilator? No Is Patient Ambulatory and/or Out of Bed No REE-(Revillo-St. Jeor-confined to bed) 6315.560 Calculation Used for Recommendations Revillo-St Jeor Additional Notes Pro needs 1-1.2g/k-96 g/ day Fluid needs 1ml/kcall Nutrition Intervention Change Diet Order: Continue current Add Supplement/Snack (indicate name/kcal Ensure Enlive Flavor Rotate /protein ) BID Provides kCal: 700 Provides Protein (gm) 40 Goal #1 PO intake to meet at least 80% of energy and protein needs Anticipated Discharge Needs: Unable to determine at this time Follow-Up By: 07/04/18 Additional Comments F/U: PO/ONS intakes
[2018-07-04] MEDS: LANOXIN PO SCH (16:30)
--- NOTE | 2018-07-04 17:57 | Progress Note ---
Assessment and Plan Patient weak, confusing at times. On 3 litres o2. O2 saturation 96%.No acute respiratory distress. - Patient Problems (1) Cardiac arrest Current Visit: Yes Status: Acute Plan to address problem: Patient successfully resuciated. Patient alert, awake and resting on 3 litres O2. (2) Acute respiratory failure with hypoxia Current Visit: Yes Status: Acute Plan to address problem: Patient resting on 3 litres O2. O2 saturation 96%. (3) Acute kidney failure with tubular necrosis Current Visit: Yes Status: Acute Plan to address problem: Management as per nephrology. (4) Altered mental status Current Visit: Yes Status: Acute Plan to address problem: Improving. Still confusing at times. (5) Paroxysmal atrial fibrillation Current Visit: Yes Status: Acute (6) Acute on chronic systolic heart failure Current Visit: No Status: Acute Plan to address problem: Management as per cardiology. (7) HTN (hypertension) Current Visit: No Status: Chronic Plan to address problem: Management as per primary care. (8) Left lower lobe pulmonary infiltrate Current Visit: Yes Status: Acute Plan to address problem: Patient afebrile. No leukocytosis. Repeating chest xray PA and Lateral. Subjective Date of service: 07/04/18 Principal diagnosis: altered mental status, psychosis, chronic systolic heart failure, Interval history: Patient weak, confusing at times. On 3 litres o2. O2 saturation 96%.No acute res piratory distress. Objective Vital Signs - 12hr 07/04/18 07/04/18 07/04/18 08:10 08:20 10:00 Temperature Pulse Rate Pulse Rate [ 76 77 Throughout] Respiratory Rate Respiratory 18 18 Rate [ Throughout] Blood Pressure Blood Pressure [Left] O2 Sat by Pulse 95 Oximetry 07/04/18 07/04/18 07/04/18 14:10 14:19 16:00 Temperature 97.6 F Pulse Rate 78 Pulse Rate [ 77 78 Throughout] Respiratory 17 Rate Respiratory 18 18 Rate [ Throughout] Blood Pressure Blood Pressure 111/75 [Left] O2 Sat by Pulse 96 Oximetry 07/04/18 07/04/18 16:30 16:36 Temperature Pulse Rate 78 78 Pulse Rate [ Throughout] Respiratory Rate Respiratory Rate [ Throughout] Blood Pressure 111/75 111/75 Blood Pressure [Left] O2 Sat by Pulse Oximetry Constitutional: no acute distress, alert, other (Confusing at times.) Eyes: non-icteric, other (Pupils 4mm, sluggichly reacting to light) ENT: oropharynx dry, other (extubated) Neck: supple, no lymphadenopathy, no JVD, other (no thyromegaly) Effort: normal Ascultation: Bilateral: diminished breath sounds, rales Percussion: Bilateral: not dull Cardiovascular: irregular rhythm, other (S1,S2,) Gastrointestinal: normoactive bowel sounds, soft, non-tender, non-distended Integumentary: rash (exematoid rash to upper chest) Extremities: no cyanosis, no edema, pulses normal, no ischemia or petechiae Neurologic: normal mental status, non-focal exam (grossly), pupils equal and round, CN II-XII normal Psychiatric: depressed CBC and BMP: 07/04/18 05:36 07/04/18 05:36 ABG, PT/INR, D-dimer: ABG POC ABG pH 7.552 (7.35-7.45) H 06/28/18 10:53 POC ABG pCO2 40.8 (35-45) 06/28/18 10:53 POC ABG pO2 83 (80-105) 06/28/18 10:53 POC ABG HCO3 35.9 (22-26 mml/L) 06/28/18 10:53 POC ABG Total CO2 37 (23-27mmol/L) 06/28/18 10:53 POC ABG O2 Sat 97 06/28/18 10:53 Abnormal lab findings: Abnormal Labs 06/16/18 06/16/18 06/16/18 21:05 21:43 21:43 WBC RBC Hgb Hct MCV MCH RDW Plt Count Lymph % (Auto) [place] % (Auto) Lymph # [place] # Seg Neutrophils % Seg Neuts % (Manual) Lymphocytes % (Manual) Seg Neutrophils # Seg Neutrophils # Man Lymphocytes # (Manual) Monocytes # (Manual) POC ABG pH POC ABG pCO2 POC ABG pO2 Sodium 129 L Potassium Chloride 95.3 L Carbon Dioxide 14 L BUN 23 H Creatinine Glucose 146 H POC Glucose < 40 L Lactic Acid Uric Acid Calcium Magnesium Total Bilirubin Direct Bilirubin AST ALT Alkaline Phosphatase Ammonia C-Reactive Protein Total Protein Albumin Vitamin B1 Vitamin B12 25-OH Vitamin D Total Free T4 T3 (GILSON) Urine Creatinine Urine Total Protein Acetaminophen < 5.0 L 06/16/18 06/16/18 06/16/18 21:43 21:43 22:27 WBC RBC 5.70 H Hgb Hct 44.6 H MCV 78 L MCH 25 L RDW 18.7 H Plt Count Lymph % (Auto) [place] % (Auto) Lymph # [place] # Seg Neutrophils % 78.8 H Seg Neuts % (Manual) Lymphocytes % (Manual) Seg Neutrophils # Seg Neutrophils # Man Lymphocytes # (Manual) Monocytes # (Manual) POC ABG pH POC ABG pCO2 POC ABG pO2 Sodium Potassium Chloride Carbon Dioxide BUN Creatinine Glucose POC Glucose 121 H Lactic Acid Uric Acid Calcium Magnesium Total Bilirubin Direct Bilirubin AST ALT Alkaline Phosphatase Ammonia C-Reactive Protein Total Protein Albumin Vitamin B1 Vitamin B12 25-OH Vitamin D Total Free T4 1.87 H T3 (GILSON) Urine Creatinine Urine Total Protein Acetaminophen 06/16/18 06/16/18 06/17/18 22:33 23:43 03:56 WBC RBC Hgb Hct MCV MCH RDW Plt Count Lymph % (Auto) [place] % (Auto) Lymph # [place] # Seg Neutrophils % Seg Neuts % (Manual) Lymphocytes % (Manual) Seg Neutrophils # Seg Neutrophils # Man Lymphocytes # (Manual) Monocytes # (Manual) POC ABG pH POC ABG pCO2 POC ABG pO2 Sodium Potassium Chloride Carbon Dioxide BUN Creatinine Glucose POC Glucose Lactic Acid 4.40 H* 4.30 H* 3.10 H* Uric Acid Calcium Magnesium Total Bilirubin Direct Bilirubin AST ALT Alkaline Phosphatase Ammonia C-Reactive Protein Total Protein Albumin Vitamin B1 Vitamin B12 25-OH Vitamin D Total Free T4 T3 (GILSON) Urine Creatinine Urine Total Protein Acetaminophen 06/17/18 06/17/18 06/17/18 08:35 08:40 11:00 WBC RBC Hgb Hct MCV MCH RDW Plt Count Lymph % (Auto) [place] % (Auto) Lymph # [place] # Seg Neutrophils % Seg Neuts % (Manual) Lymphocytes % (Manual) Seg Neutrophils # Seg Neutrophils # Man Lymphocytes # (Manual) Monocytes # (Manual) POC ABG pH POC ABG pCO2 POC ABG pO2 Sodium Potassium Chloride Carbon Dioxide BUN Creatinine Glucose POC Glucose 56 L Lactic Acid 2.70 H* 3.40 H* Uric Acid Calcium Magnesium Total Bilirubin Direct Bilirubin AST ALT Alkaline Phosphatase Ammonia C-Reactive Protein Total Protein Albumin Vitamin B1 Vitamin B12 25-OH Vitamin D Total Free T4 T3 (GILSON) Urine Creatinine Urine Total Protein Acetaminophen 06/17/18 06/17/18 06/17/18 11:00 11:00 11:00 WBC 11.9 H RBC 5.25 H Hgb Hct MCV MCH 25 L RDW 18.6 H Plt Count Lymph % (Auto) [place] % (Auto) Lymph # [place] # Seg Neutrophils % Seg Neuts % (Manual) Lymphocytes % (Manual) Seg Neutrophils # Seg Neutrophils # Man Lymphocytes # (Manual) Monocytes # (Manual) POC ABG pH POC ABG pCO2 POC ABG pO2 Sodium 128 L Potassium Chloride 95.6 L Carbon Dioxide 15 L BUN 22 H Creatinine Glucose 110 H POC Glucose Lactic Acid Uric Acid Calcium 8.3 L Magnesium Total Bilirubin Direct Bilirubin 1.6 H AST 66 H ALT Alkaline Phosphatase 178 H Ammonia C-Reactive Protein Total Protein 4.7 L Albumin 2.4 L Vitamin B1 Vitamin B12 25-OH Vitamin D Total Free T4 T3 (GILSON) Urine Creatinine Urine Total Protein Acetaminophen 06/17/18 06/17/18 06/17/18 15:08 15:08 23:00 WBC RBC Hgb Hct MCV MCH RDW Plt Count Lymph % (Auto) [place] % (Auto) Lymph # [place] # Seg Neutrophils % Seg Neuts % (Manual) Lymphocytes % (Manual) Seg Neutrophils # Seg Neutrophils # Man Lymphocytes # (Manual) Monocytes # (Manual) POC ABG pH POC ABG pCO2 POC ABG pO2 Sodium Potassium Chloride Carbon Dioxide BUN Creatinine Glucose POC Glucose Lactic Acid 4.00 H* Uric Acid Calcium Magnesium Total Bilirubin Direct Bilirubin AST ALT Alkaline Phosphatase Ammonia 10.0 L C-Reactive Protein Total Protein Albumin Vitamin B1 Vitamin B12 25-OH Vitamin D Total Free T4 1.53 H T3 (GILSON) Urine Creatinine Urine Total Protein Acetaminophen 06/18/18 06/18/18 06/18/18 08:59 08:59 12:49 WBC RBC 5.29 H Hgb Hct MCV 78 L MCH 25 L RDW 18.4 H Plt Count Lymph % (Auto) [place] % (Auto) Lymph # [place] # Seg Neutrophils % Seg Neuts % (Manual) Lymphocytes % (Manual) Seg Neutrophils # Seg Neutrophils # Man Lymphocytes # (Manual) Monocytes # (Manual) POC ABG pH POC ABG pCO2 POC ABG pO2 Sodium 128 L Potassium 5.9 H D Chloride 96.1 L Carbon Dioxide 20 L BUN 22 H Creatinine Glucose POC Glucose 60 L Lactic Acid Uric Acid Calcium Magnesium Total Bilirubin Direct Bilirubin AST ALT Alkaline Phosphatase Ammonia C-Reactive Protein Total Protein Albumin Vitamin B1 Vitamin B12 25-OH Vitamin D Total Free T4 T3 (GILSON) Urine Creatinine Urine Total Protein Acetaminophen 06/18/18 06/19/18 06/19/18 21:28 12:14 13:23 WBC RBC Hgb Hct MCV MCH RDW Plt Count Lymph % (Auto) [place] % (Auto) Lymph # [place] # Seg Neutrophils % Seg Neuts % (Manual) Lymphocytes % (Manual) Seg Neutrophils # Seg Neutrophils # Man Lymphocytes # (Manual) Monocytes # (Manual) POC ABG pH POC ABG pCO2 POC ABG pO2 Sodium 122 L Potassium 5.4 H Chloride 95.0 L Carbon Dioxide 13 L D BUN 21 H Creatinine Glucose 119 H POC Glucose 114 H Lactic Acid Uric Acid Calcium 8.3 L Magnesium Total Bilirubin Direct Bilirubin AST ALT Alkaline Phosphatase Ammonia C-Reactive Protein Total Protein Albumin Vitamin B1 Vitamin B12 25-OH Vitamin D Total Free T4 T3 (GILSON) Urine Creatinine Urine Total Protein Acetaminophen 06/19/18 06/19/18 06/19/18 14:47 16:38 22:42 WBC RBC 5.51 H Hgb Hct 45.3 H MCV MCH 25 L RDW 18.6 H Plt Count Lymph % (Auto) [place] % (Auto) Lymph # [place] # Seg Neutrophils % Seg Neuts % (Manual) Lymphocytes % (Manual) Seg Neutrophils # Seg Neutrophils # Man Lymphocytes # (Manual) Monocytes # (Manual) POC ABG pH POC ABG pCO2 POC ABG pO2 Sodium Potassium Chloride Carbon Dioxide BUN Creatinine Glucose POC Glucose 108 H 49 L Lactic Acid Uric Acid Calcium Magnesium Total Bilirubin Direct Bilirubin AST ALT Alkaline Phosphatase Ammonia C-Reactive Protein Total Protein Albumin Vitamin B1 Vitamin B12 25-OH Vitamin D Total Free T4 T3 (GILSON) Urine Creatinine Urine Total Protein Acetaminophen 06/19/18 06/20/18 06/20/18 Unknown 07:31 16:51 WBC RBC Hgb Hct MCV MCH RDW Plt Count Lymph % (Auto) [place] % (Auto) Lymph # [place] # Seg Neutrophils % Seg Neuts % (Manual) Lymphocytes % (Manual) Seg Neutrophils # Seg Neutrophils # Man Lymphocytes # (Manual) Monocytes # (Manual) POC ABG pH POC ABG pCO2 POC ABG pO2 Sodium 132 L D Potassium Chloride 94.3 L Carbon Dioxide BUN 20 H Creatinine Glucose POC Glucose Lactic Acid Uric Acid 8.6 H Calcium Magnesium 1.30 L Total Bilirubin Direct Bilirubin AST ALT Alkaline Phosphatase Ammonia C-Reactive Protein Total Protein Albumin Vitamin B1 Vitamin B12 25-OH Vitamin D Total Free T4 T3 (GILSON) 58 L Urine Creatinine 61.7 H Urine Total Protein 32 H Acetaminophen 06/20/18 06/20/18 06/21/18 20:53 20:53 16:27 WBC RBC Hgb Hct MCV MCH RDW Plt Count Lymph % (Auto) [place] % (Auto) Lymph # [place] # Seg Neutrophils % Seg Neuts % (Manual) Lymphocytes % (Manual) Seg Neutrophils # Seg Neutrophils # Man Lymphocytes # (Manual) Monocytes # (Manual) POC ABG pH POC ABG pCO2 POC ABG pO2 Sodium Potassium Chloride Carbon Dioxide BUN Creatinine Glucose POC Glucose Lactic Acid Uric Acid 9.2 H Calcium Magnesium Total Bilirubin Direct Bilirubin AST ALT Alkaline Phosphatase Ammonia C-Reactive Protein Total Protein Albumin Vitamin B1 Vitamin B12 1598 H 25-OH Vitamin D Total 10 L Free T4 T3 (GILSON) Urine Creatinine Urine Total Protein Acetaminophen 06/21/18 06/21/18 06/21/18 16:27 16:27 16:27 WBC RBC 5.26 H Hgb Hct MCV 77 L MCH 26 L RDW 17.7 H Plt Count Lymph % (Auto) [place] % (Auto) Lymph # [place] # Seg Neutrophils % Seg Neuts % (Manual) Lymphocytes % (Manual) Seg Neutrophils # Seg Neutrophils # Man Lymphocytes # (Manual) Monocytes # (Manual) POC ABG pH POC ABG pCO2 POC ABG pO2 Sodium 130 L Potassium Chloride 95.6 L Carbon Dioxide BUN 24 H Creatinine Glucose POC Glucose Lactic Acid Uric Acid Calcium Magnesium Total Bilirubin Direct Bilirubin AST ALT Alkaline Phosphatase Ammonia C-Reactive Protein Total Protein Albumin Vitamin B1 <6 L Vitamin B12 25-OH Vitamin D Total Free T4 T3 (GILSON) Urine Creatinine Urine Total Protein Acetaminophen 06/21/18 06/22/18 06/23/18 21:44 21:42 14:54 WBC RBC 5.07 H Hgb Hct MCV 78 L MCH 25 L RDW 18.5 H Plt Count Lymph % (Auto) [place] % (Auto) 12.3 H Lymph # 1.0 L [place] # Seg Neutrophils % Seg Neuts % (Manual) Lymphocytes % (Manual) Seg Neutrophils # Seg Neutrophils # Man Lymphocytes # (Manual) Monocytes # (Manual) POC ABG pH POC ABG pCO2 POC ABG pO2 Sodium Potassium Chloride Carbon Dioxide BUN Creatinine Glucose POC Glucose 126 H 114 H Lactic Acid Uric Acid Calcium Magnesium Total Bilirubin Direct Bilirubin AST ALT Alkaline Phosphatase Ammonia C-Reactive Protein Total Protein Albumin Vitamin B1 Vitamin B12 25-OH Vitamin D Total Free T4 T3 (GILSON) Urine Creatinine Urine Total Protein Acetaminophen 06/23/18 06/25/18 06/25/18 14:54 00:00 00:00 WBC 3.6 L RBC 5.31 H Hgb Hct MCV 77 L MCH 26 L RDW 19.0 H Plt Count Lymph % (Auto) [place] % (Auto) 10.2 H Lymph # [place] # Seg Neutrophils % Seg Neuts % (Manual) Lymphocytes % (Manual) Seg Neutrophils # Seg Neutrophils # Man Lymphocytes # (Manual) Monocytes # (Manual) POC ABG pH POC ABG pCO2 POC ABG pO2 Sodium 132 L 131 L Potassium 3.5 L Chloride 91.5 L 93.5 L Carbon Dioxide BUN 19 H 21 H Creatinine Glucose POC Glucose Lactic Acid Uric Acid Calcium 8.1 L Magnesium Total Bilirubin 2.80 H 2.70 H Direct Bilirubin AST 52 H 81 H ALT Alkaline Phosphatase 231 H 243 H Ammonia C-Reactive Protein Total Protein 5.5 L 5.5 L Albumin 2.8 L 2.7 L Vitamin B1 Vitamin B12 25-OH Vitamin D Total Free T4 T3 (GILSON) Urine Creatinine Urine Total Protein Acetaminophen 06/25/18 06/25/18 06/25/18 16:02 16:02 16:18 WBC 3.9 L RBC 5.78 H Hgb 14.6 H Hct 45.4 H MCV MCH 25 L RDW 19.2 H Plt Count Lymph % (Auto) [place] % (Auto) Lymph # [place] # Seg Neutrophils % Seg Neuts % (Manual) Lymphocytes % (Manual) Seg Neutrophils # Seg Neutrophils # Man Lymphocytes # (Manual) 1.1 L Monocytes # (Manual) POC ABG pH POC ABG pCO2 POC ABG pO2 Sodium 131 L Potassium Chloride 90.0 L Carbon Dioxide BUN 25 H Creatinine 1.4 H Glucose POC Glucose Lactic Acid 4.00 H* Uric Acid Calcium Magnesium Total Bilirubin 3.10 H Direct Bilirubin AST 68 H ALT Alkaline Phosphatase 296 H Ammonia C-Reactive Protein Total Protein 6.1 L Albumin 3.3 L Vitamin B1 Vitamin B12 25-OH Vitamin D Total Free T4 T3 (GILSON) Urine Creatinine Urine Total Protein Acetaminophen 06/25/18 06/26/18 06/26/18 21:06 11:33 11:37 WBC RBC Hgb Hct MCV MCH 26 L RDW 19.2 H Plt Count 139 L Lymph % (Auto) [place] % (Auto) Lymph # [place] # Seg Neutrophils % Seg Neuts % (Manual) 85.0 H Lymphocytes % (Manual) 6.0 L Seg Neutrophils # Seg Neutrophils # Man 8.0 H Lymphocytes # (Manual) 0.6 L Monocytes # (Manual) POC ABG pH POC ABG pCO2 POC ABG pO2 Sodium Potassium Chloride Carbon Dioxide BUN Creatinine Glucose POC Glucose < 40 L Lactic Acid 6.40 H* Uric Acid Calcium Magnesium Total Bilirubin Direct Bilirubin AST ALT Alkaline Phosphatase Ammonia C-Reactive Protein Total Protein Albumin Vitamin B1 Vitamin B12 25-OH Vitamin D Total Free T4 T3 (GILSON) Urine Creatinine Urine Total Protein Acetaminophen 06/26/18 06/26/18 06/26/18 11:37 11:51 11:59 WBC RBC Hgb Hct MCV MCH RDW Plt Count Lymph % (Auto) [place] % (Auto) Lymph # [place] # Seg Neutrophils % Seg Neuts % (Manual) Lymphocytes % (Manual) Seg Neutrophils # Seg Neutrophils # Man Lymphocytes # (Manual) Monocytes # (Manual) POC ABG pH 7.029 L POC ABG pCO2 POC ABG pO2 73 L Sodium 129 L Potassium Chloride 87.0 L Carbon Dioxide 11 L D BUN 31 H Creatinine 1.9 H Glucose 206 H POC Glucose 253 H Lactic Acid Uric Acid Calcium 7.9 L Magnesium Total Bilirubin 2.90 H Direct Bilirubin AST 98 H ALT Alkaline Phosphatase 196 H Ammonia C-Reactive Protein Total Protein 4.3 L D Albumin 2.2 L Vitamin B1 Vitamin B12 25-OH Vitamin D Total Free T4 T3 (GILSON) Urine Creatinine Urine Total Protein Acetaminophen 06/26/18 06/26/18 06/26/18 14:54 15:08 15:10 WBC 14.2 H RBC 5.66 H Hgb 14.5 H Hct 45.6 H D MCV MCH 26 L RDW 19.4 H Plt Count Lymph % (Auto) [place] % (Auto) Lymph # [place] # Seg Neutrophils % Seg Neuts % (Manual) 88.0 H Lymphocytes % (Manual) 5.0 L Seg Neutrophils # Seg Neutrophils # Man 12.5 H Lymphocytes # (Manual) 0.7 L Monocytes # (Manual) 0.9 H POC ABG pH POC ABG pCO2 POC ABG pO2 Sodium Potassium Chloride Carbon Dioxide BUN Creatinine Glucose POC Glucose 172 H Lactic Acid 11.90 H* Uric Acid Calcium Magnesium Total Bilirubin Direct Bilirubin AST ALT Alkaline Phosphatase Ammonia C-Reactive Protein Total Protein Albumin Vitamin B1 Vitamin B12 25-OH Vitamin D Total Free T4 T3 (GILSON) Urine Creatinine Urine Total Protein Acetaminophen 06/26/18 06/26/18 06/26/18 16:01 18:47 20:55 WBC RBC Hgb Hct MCV MCH RDW Plt Count Lymph % (Auto) [place] % (Auto) Lymph # [place] # Seg Neutrophils % Seg Neuts % (Manual) Lymphocytes % (Manual) Seg Neutrophils # Seg Neutrophils # Man Lymphocytes # (Manual) Monocytes # (Manual) POC ABG pH POC ABG pCO2 34.0 L POC ABG pO2 Sodium Potassium Chloride Carbon Dioxide BUN Creatinine Glucose POC Glucose 183 H 131 H Lactic Acid Uric Acid Calcium Magnesium Total Bilirubin Direct Bilirubin AST ALT Alkaline Phosphatase Ammonia C-Reactive Protein Total Protein Albumin Vitamin B1 Vitamin B12 25-OH Vitamin D Total Free T4 T3 (GILSON) Urine Creatinine Urine Total Protein Acetaminophen 06/26/18 06/27/18 06/27/18 21:55 09:29 09:29 WBC RBC Hgb Hct MCV MCH RDW Plt Count Lymph % (Auto) [place] % (Auto) Lymph # [place] # Seg Neutrophils % Seg Neuts % (Manual) Lymphocytes % (Manual) Seg Neutrophils # Seg Neutrophils # Man Lymphocytes # (Manual) Monocytes # (Manual) POC ABG pH POC ABG pCO2 POC ABG pO2 Sodium 135 L 135 L Potassium 3.5 L Chloride 91.7 L 91.2 L Carbon Dioxide BUN 35 H 37 H Creatinine 2.3 H 2.1 H Glucose 147 H 104 H POC Glucose Lactic Acid Uric Acid Calcium 8.3 L 8.1 L Magnesium Total Bilirubin 3.50 H Direct Bilirubin AST 218 H ALT 57 H Alkaline Phosphatase 197 H Ammonia C-Reactive Protein Total Protein 5.0 L Albumin 2.3 L Vitamin B1 Vitamin B12 25-OH Vitamin D Total Free T4 1.78 H T3 (GILSON) Urine Creatinine Urine Total Protein Acetaminophen 06/27/18 06/27/18 06/27/18 09:29 09:29 10:00 WBC 16.3 H RBC 5.44 H Hgb Hct MCV 76 L MCH 25 L RDW 18.3 H Plt Count Lymph % (Auto) [place] % (Auto) Lymph # [place] # Seg Neutrophils % Seg Neuts % (Manual) 91.0 H Lymphocytes % (Manual) 3.0 L Seg Neutrophils # Seg Neutrophils # Man 14.8 H Lymphocytes # (Manual) 0.5 L Monocytes # (Manual) 1.0 H POC ABG pH POC ABG pCO2 POC ABG pO2 Sodium Potassium Chloride Carbon Dioxide BUN Creatinine Glucose POC Glucose 106 H Lactic Acid 4.00 H* Uric Acid Calcium Magnesium Total Bilirubin Direct Bilirubin AST ALT Alkaline Phosphatase Ammonia C-Reactive Protein Total Protein Albumin Vitamin B1 Vitamin B12 25-OH Vitamin D Total Free T4 T3 (GILSON) Urine Creatinine Urine Total Protein Acetaminophen 06/27/18 06/27/18 06/27/18 11:51 12:50 13:39 WBC RBC Hgb Hct MCV MCH RDW Plt Count Lymph % (Auto) [place] % (Auto) Lymph # [place] # Seg Neutrophils % Seg Neuts % (Manual) Lymphocytes % (Manual) Seg Neutrophils # Seg Neutrophils # Man Lymphocytes # (Manual) Monocytes # (Manual) POC ABG pH 7.584 H POC ABG pCO2 32.8 L POC ABG pO2 109 H Sodium Potassium Chloride Carbon Dioxide BUN Creatinine Glucose POC Glucose 112 H Lactic Acid 3.20 H* Uric Acid Calcium Magnesium Total Bilirubin Direct Bilirubin AST ALT Alkaline Phosphatase Ammonia C-Reactive Protein Total Protein Albumin Vitamin B1 Vitamin B12 25-OH Vitamin D Total Free T4 T3 (GILSON) Urine Creatinine Urine Total Protein Acetaminophen 06/27/18 06/27/18 06/27/18 19:31 21:50 23:10 WBC RBC Hgb Hct MCV MCH RDW Plt Count Lymph % (Auto) [place] % (Auto) Lymph # [place] # Seg Neutrophils % Seg Neuts % (Manual) Lymphocytes % (Manual) Seg Neutrophils # Seg Neutrophils # Man Lymphocytes # (Manual) Monocytes # (Manual) POC ABG pH POC ABG pCO2 POC ABG pO2 Sodium Potassium Chloride Carbon Dioxide BUN Creatinine Glucose POC Glucose Lactic Acid 2.40 H* 2.30 H* 2.30 H* Uric Acid Calcium Magnesium Total Bilirubin Direct Bilirubin AST ALT Alkaline Phosphatase Ammonia C-Reactive Protein Total Protein Albumin Vitamin B1 Vitamin B12 25-OH Vitamin D Total Free T4 T3 (GILSON) Urine Creatinine Urine Total Protein Acetaminophen 06/28/18 06/28/18 06/28/18 02:35 05:00 05:00 WBC RBC Hgb Hct MCV MCH RDW Plt Count Lymph % (Auto) [place] % (Auto) Lymph # [place] # Seg Neutrophils % Seg Neuts % (Manual) Lymphocytes % (Manual) Seg Neutrophils # Seg Neutrophils # Man Lymphocytes # (Manual) Monocytes # (Manual) POC ABG pH POC ABG pCO2 POC ABG pO2 Sodium 134 L Potassium 2.6 L* D Chloride 92.3 L Carbon Dioxide 32 H BUN 34 H Creatinine 1.8 H Glucose 127 H POC Glucose Lactic Acid 2.20 H* 2.30 H* Uric Acid Calcium 7.5 L Magnesium Total Bilirubin 3.50 H Direct Bilirubin AST 226 H ALT 60 H Alkaline Phosphatase 172 H Ammonia C-Reactive Protein Total Protein 4.2 L Albumin 2.0 L Vitamin B1 Vitamin B12 25-OH Vitamin D Total Free T4 T3 (GILSON) Urine Creatinine Urine Total Protein Acetaminophen 06/28/18 06/28/18 06/28/18 05:00 08:30 08:30 WBC 15.7 H RBC Hgb Hct MCV 77 L MCH 25 L RDW 18.5 H Plt Count 112 L Lymph % (Auto) 6.0 L [place] % (Auto) 10.0 H Lymph # 0.9 L [place] # 1.6 H Seg Neutrophils % 83.4 H Seg Neuts % (Manual) Lymphocytes % (Manual) Seg Neutrophils # 13.1 H Seg Neutrophils # Man Lymphocytes # (Manual) Monocytes # (Manual) POC ABG pH POC ABG pCO2 POC ABG pO2 Sodium Potassium Chloride Carbon Dioxide BUN Creatinine Glucose POC Glucose Lactic Acid 2.40 H* Uric Acid Calcium Magnesium Total Bilirubin Direct Bilirubin AST ALT Alkaline Phosphatase Ammonia C-Reactive Protein 4.80 H Total Protein Albumin Vitamin B1 Vitamin B12 25-OH Vitamin D Total Free T4 T3 (GILSON) Urine Creatinine Urine Total Protein Acetaminophen 06/28/18 06/28/18 06/28/18 10:53 11:23 18:35 WBC RBC Hgb Hct MCV MCH RDW Plt Count Lymph % (Auto) [place] % (Auto) Lymph # [place] # Seg Neutrophils % Seg Neuts % (Manual) Lymphocytes % (Manual) Seg Neutrophils # Seg Neutrophils # Man Lymphocytes # (Manual) Monocytes # (Manual) POC ABG pH 7.552 H POC ABG pCO2 POC ABG pO2 Sodium Potassium 3.1 L Chloride Carbon Dioxide BUN Creatinine Glucose POC Glucose 122 H Lactic Acid Uric Acid Calcium Magnesium Total Bilirubin Direct Bilirubin AST ALT Alkaline Phosphatase Ammonia C-Reactive Protein Total Protein Albumin Vitamin B1 Vitamin B12 25-OH Vitamin D Total Free T4 T3 (GILSON) Urine Creatinine Urine Total Protein Acetaminophen 06/29/18 06/29/18 06/29/18 06:40 06:40 19:44 WBC 14.6 H RBC Hgb Hct MCV 77 L MCH 25 L RDW 19.3 H Plt Count 88 L Lymph % (Auto) [place] % (Auto) Lymph # [place] # Seg Neutrophils % Seg Neuts % (Manual) Lymphocytes % (Manual) Seg Neutrophils # Seg Neutrophils # Man Lymphocytes # (Manual) Monocytes # (Manual) POC ABG pH POC ABG pCO2 POC ABG pO2 Sodium Potassium 2.7 L* Chloride 95.3 L Carbon Dioxide 32 H BUN 25 H Creatinine Glucose 145 H POC Glucose 59 L Lactic Acid Uric Acid Calcium 7.9 L Magnesium Total Bilirubin 3.60 H Direct Bilirubin AST 213 H ALT Alkaline Phosphatase 176 H Ammonia C-Reactive Protein Total Protein 4.8 L Albumin 2.2 L Vitamin B1 Vitamin B12 25-OH Vitamin D Total Free T4 T3 (GILSON) Urine Creatinine Urine Total Protein Acetaminophen 06/29/18 06/30/18 06/30/18 20:43 02:37 04:45 WBC RBC Hgb Hct MCV MCH RDW Plt Count Lymph % (Auto) [place] % (Auto) Lymph # [place] # Seg Neutrophils % Seg Neuts % (Manual) Lymphocytes % (Manual) Seg Neutrophils # Seg Neutrophils # Man Lymphocytes # (Manual) Monocytes # (Manual) POC ABG pH POC ABG pCO2 POC ABG pO2 Sodium Potassium 3.1 L 2.8 L* Chloride Carbon Dioxide 31 H BUN 18 H Creatinine Glucose POC Glucose 59 L Lactic Acid Uric Acid Calcium 8.0 L Magnesium Total Bilirubin 3.70 H Direct Bilirubin AST 216 H ALT 63 H Alkaline Phosphatase 163 H Ammonia C-Reactive Protein Total Protein 4.5 L Albumin 2.1 L Vitamin B1 Vitamin B12 25-OH Vitamin D Total Free T4 T3 (GILSON) Urine Creatinine Urine Total Protein Acetaminophen 06/30/18 06/30/18 07/01/18 04:45 06:24 04:39 WBC 12.1 H RBC Hgb Hct MCV 78 L 77 L MCH 25 L 25 L RDW 19.0 H 19.3 H Plt Count 91 L 77 L Lymph % (Auto) [place] % (Auto) Lymph # [place] # Seg Neutrophils % Seg Neuts % (Manual) Lymphocytes % (Manual) Seg Neutrophils # Seg Neutrophils # Man Lymphocytes # (Manual) Monocytes # (Manual) POC ABG pH POC ABG pCO2 POC ABG pO2 Sodium Potassium Chloride Carbon Dioxide BUN Creatinine Glucose POC Glucose 63 L Lactic Acid Uric Acid Calcium Magnesium Total Bilirubin Direct Bilirubin AST ALT Alkaline Phosphatase Ammonia C-Reactive Protein Total Protein Albumin Vitamin B1 Vitamin B12 25-OH Vitamin D Total Free T4 T3 (GILSON) Urine Creatinine Urine Total Protein Acetaminophen 07/01/18 07/01/18 07/02/18 04:39 11:12 05:23 WBC RBC Hgb Hct MCV 77 L MCH 25 L RDW 19.2 H Plt Count 78 L Lymph % (Auto) [place] % (Auto) Lymph # [place] # Seg Neutrophils % Seg Neuts % (Manual) Lymphocytes % (Manual) Seg Neutrophils # Seg Neutrophils # Man Lymphocytes # (Manual) Monocytes # (Manual) POC ABG pH POC ABG pCO2 POC ABG pO2 Sodium Potassium 3.5 L D Chloride Carbon Dioxide BUN Creatinine Glucose 109 H POC Glucose 206 H Lactic Acid Uric Acid Calcium 8.1 L Magnesium Total Bilirubin 3.90 H Direct Bilirubin AST 163 H ALT 60 H Alkaline Phosphatase 166 H Ammonia C-Reactive Protein Total Protein 4.5 L Albumin 2.0 L Vitamin B1 Vitamin B12 25-OH Vitamin D Total Free T4 T3 (GILSON) Urine Creatinine Urine Total Protein Acetaminophen 07/02/18 07/02/18 07/03/18 05:23 12:18 08:14 WBC RBC Hgb Hct MCV 76 L MCH 25 L RDW 19.0 H Plt Count 84 L Lymph % (Auto) [place] % (Auto) Lymph # [place] # Seg Neutrophils % Seg Neuts % (Manual) Lymphocytes % (Manual) Seg Neutrophils # Seg Neutrophils # Man Lymphocytes # (Manual) Monocytes # (Manual) POC ABG pH POC ABG pCO2 POC ABG pO2 Sodium 135 L Potassium 3.4 L Chloride Carbon Dioxide BUN Creatinine 0.6 L Glucose POC Glucose 144 H Lactic Acid Uric Acid Calcium 8.3 L Magnesium Total Bilirubin Direct Bilirubin AST ALT Alkaline Phosphatase Ammonia C-Reactive Protein Total Protein Albumin Vitamin B1 Vitamin B12 25-OH Vitamin D Total Free T4 T3 (GILSON) Urine Creatinine Urine Total Protein Acetaminophen 07/03/18 07/03/18 07/04/18 08:14 16:33 05:36 WBC RBC Hgb Hct MCV 77 L MCH 25 L RDW 18.5 H Plt Count 103 L Lymph % (Auto) [place] % (Auto) Lymph # [place] # Seg Neutrophils % Seg Neuts % (Manual) Lymphocytes % (Manual) Seg Neutrophils # Seg Neutrophils # Man Lymphocytes # (Manual) Monocytes # (Manual) POC ABG pH POC ABG pCO2 POC ABG pO2 Sodium 135 L Potassium Chloride 97.7 L Carbon Dioxide BUN Creatinine 0.5 L Glucose POC Glucose 69 L Lactic Acid Uric Acid Calcium 8.2 L Magnesium 1.50 L Total Bilirubin Direct Bilirubin AST ALT Alkaline Phosphatase Ammonia C-Reactive Protein Total Protein Albumin Vitamin B1 Vitamin B12 25-OH Vitamin D Total Free T4 T3 (GILSON) Urine Creatinine Urine Total Protein Acetaminophen 07/04/18 07/04/18 07/04/18 05:36 08:54 11:47 WBC RBC Hgb Hct MCV MCH RDW Plt Count Lymph % (Auto) [place] % (Auto) Lymph # [place] # Seg Neutrophils % Seg Neuts % (Manual) Lymphocytes % (Manual) Seg Neutrophils # Seg Neutrophils # Man Lymphocytes # (Manual) Monocytes # (Manual) POC ABG pH POC ABG pCO2 POC ABG pO2 Sodium 135 L Potassium Chloride Carbon Dioxide BUN Creatinine 0.5 L Glucose POC Glucose 61 L 122 H Lactic Acid Uric Acid Calcium 8.2 L Magnesium Total Bilirubin Direct Bilirubin AST ALT Alkaline Phosphatase Ammonia C-Reactive Protein Total Protein Albumin Vitamin B1 Vitamin B12 25-OH Vitamin D Total Free T4 T3 (GILSON) Urine Creatinine Urine Total Protein Acetaminophen 07/04/18 16:44 WBC RBC Hgb Hct MCV MCH RDW Plt Count Lymph % (Auto) [place] % (Auto) Lymph # [place] # Seg Neutrophils % Seg Neuts % (Manual) Lymphocytes % (Manual) Seg Neutrophils # Seg Neutrophils # Man Lymphocytes # (Manual) Monocytes # (Manual) POC ABG pH POC ABG pCO2 POC ABG pO2 Sodium Potassium Chloride Carbon Dioxide BUN Creatinine Glucose POC Glucose 124 H Lactic Acid Uric Acid Calcium Magnesium Total Bilirubin Direct Bilirubin AST ALT Alkaline Phosphatase Ammonia C-Reactive Protein Total Protein Albumin Vitamin B1 Vitamin B12 25-OH Vitamin D Total Free T4 T3 (GILSON) Urine Creatinine Urine Total Protein Acetaminophen Chest x-ray: report reviewed, image reviewed (Entered the results in next page.) Additional Studies: Chest xray done on 06/17/18. FINDINGS: There is mild to moderate degree cardiomegaly. An inhomogeneous densities noted in the left midlung. Right lung and bilateral pleural spaces are clear. IMPRESSION: An inhomogeneous density left midlung suspicious for pneumonia. A two-view chest study is recommended. Allied health notes reviewed: nursing
[2018-07-05] MEDS: LOPRESSOR PO SCH ×3 (01:40→17:14)
--- NOTE | 2018-07-05 08:41 | XRay Report ---
ROUTINE CHEST, TWO VIEWS: HISTORY: Followup on left sided pulmonary infiltrate. Compared to multiple previous exams. The endotracheal tube and nasogastric tube have been removed since 06/27/18. Moderate pulmonary venous congestion and small pleural effusions have developed. Mild cardiomegaly is stable. There are mild atelectatic changes in the lower lung zones but no obvious pneumonia. No pneumothorax. Left arm PICC terminates in the lower SVC. IMPRESSION: Volume overload/CHF.
--- NOTE | 2018-07-05 09:09 | Progress Note ---
Assessment and Plan - Patient Problems (1) Hyponatremia with decreased serum osmolality Current Visit: Yes Status: Acute Plan to address problem: Likely in the setting of fluid overload. Continues on current diuretic regimen. Cardiology following, now transferred out to telemetry. Overall serum sodium levels are stable (2) Fluid overload Current Visit: Yes Status: Chronic Qualifiers: Hypervolemia type: other Qualified Code(s): E87.79 - Other fluid overload Plan to address problem: Agree with current regimen and diuretic management. Would recommend fluid restrictions and appropriate low-sodium diet given her history of end-stage heart disease and cardiomyopathy. Further management per cardiology. (3) Acute on chronic systolic heart failure Current Visit: No Status: Acute Plan to address problem: Follow up with further recommendations per cardiology. Will continue on current diuretic regimen along with appropriate fluid restrictions and low sodium diet. (4) Altered mental status Current Visit: Yes Status: Acute Plan to address problem: We'll continue to monitor closely. Psychiatry evaluation noted. (5) HTN (hypertension) Current Visit: No Status: Chronic Plan to address problem: Continue on current regimen and will monitor. Subjective Date of service: 07/05/18 Principal diagnosis: altered mental status, psychosis, chronic systolic heart failure, Interval history: No acute changes overnight. No new labs this am. Objective - Vital Signs Vital signs: Vital Signs - 12hr 07/04/18 07/04/18 07/04/18 21:11 21:15 21:21 Temperature Pulse Rate Pulse Rate [ Apical] Pulse Rate [ 87 82 Throughout] Respiratory Rate Respiratory 18 18 Rate [ Throughout] Blood Pressure [Left] O2 Sat by Pulse 100 Oximetry 07/04/18 07/05/18 07/05/18 22:00 00:00 05:00 Temperature 98.1 F Pulse Rate 95 H 110 H 90 Pulse Rate [ 112 H Apical] Pulse Rate [ Throughout] Respiratory 18 20 18 Rate Respiratory Rate [ Throughout] Blood Pressure 125/59 105/48 [Left] O2 Sat by Pulse 97 94 96 Oximetry - General Appearance General appearance: appears stated age, chronically ill, frail EENT: ATNC, PERRL Neck: no JVD, no thyromegaly Respiratory: Present: Decreased Breath Sounds Cardiology: regular, S1S2 Gastrointestinal: normal, normoactive bowel sounds Integumentary: warm and dry Neurologic: confused Musculoskeletal: other (+edema ) - Lab 07/04/18 05:36 07/04/18 05:36 Most recent lab results Calcium 8.2 mg/dL (8.4-10.2) L 07/04/18 05:36 Phosphorus 2.50 mg/dL (2.5-4.5) 06/20/18 07:31 Magnesium 1.50 mg/dL (1.7-2.3) L 07/03/18 08:14 Urine Creatinine 61.7 mg/dL (0.1-20.0) H 06/19/18 Unknown Urine Total Protein 32 mg/dL (5-11.8) H 06/19/18 Unknown - Imaging Chest x-ray: report reviewed - Allied health notes Allied health notes reviewed: nursing Medications & Allergies - Medications Allergies/Adverse Reactions: Allergies Penicillins Allergy (Verified 09/04/17 14:11) Unknown aspirin Adverse Reaction (Verified 09/04/17 14:10) Nausea haloperidol [From Haldol] Adverse Reaction (Verified 07/02/18 14:24) Anaphylaxis NSAIDS (Non-Steroidal Anti-Inflamma Adverse Reaction (Verified 09/04/17 14:10) Nausea Pork/Porcine Containing Products Adverse Reaction (Verified 11/01/17 09:04) Nausea Home Medications: Home Medications Medication Instructions Recorded Confirmed Last Taken Type Apixaban [Eliquis] 5 mg PO DAILY 09/06/17 07/02/18 Unknown History AtorvaSTATin [Lipitor] 20 mg PO DAILY 09/06/17 07/02/18 Unknown History Loperamide HCl [Loperamide] 2 mg PO DAILY 09/06/17 07/02/18 Unknown History Sertraline [Zoloft] 50 mg PO DAILY 09/06/17 07/02/18 10/17/17 10:00 History Sucralfate [Carafate] 1 gm PO DAILY 09/06/17 07/02/18 Unknown History Carvedilol [Coreg] 12.5 mg PO BID #60 tablet 09/08/17 07/02/18 Unknown Rx Lisinopril [Zestril TAB] 5 mg PO QDAY #30 tablet 09/08/17 07/02/18 Unknown Rx Doxycycline [Vibramycin CAP] 100 mg PO Q12HR #10 capsule 11/02/17 07/02/18 Unknown Rx Furosemide [Lasix] 20 mg PO QDAY #30 tablet 11/02/17 07/02/18 Unknown Rx Active Medications: Generic Name Dose Route Start Last Admin Trade Name Freq PRN Reason Stop Dose Admin Acetaminophen 650 mg 06/17/18 03:33 07/02/18 14:01 Tylenol PO 650 mg Q4H PRN Administration Fever >101 Albuterol/Ipratropium 1 ampul 06/27/18 14:00 07/04/18 21:11 Duoneb *Not For Prn Use* IH 1 ampul TIDRT JEANETTE Administration Apixaban 5 mg 06/20/18 16:00 07/04/18 21:49 Eliquis PO 5 mg Q12HR JEANETTE Administration Protocol Atorvastatin Calcium 20 mg 06/19/18 22:00 07/04/18 21:49 Lipitor PO 20 mg QHS JEANETTE Administration Dextrose 50 ml 07/01/18 11:50 D50w (25gm) Syringe IV PRN PRN Hypoglycemia Digoxin 0.125 mg 06/24/18 17:00 07/04/18 16:30 Lanoxin PO 0.125 mg DAILY@1700 JEANETTE Administration Famotidine 20 mg 06/27/18 12:00 07/04/18 09:38 Pepcid PO 20 mg DAILY JEANETTE Administration Insulin Human Lispro 0 unit 07/01/18 16:30 07/04/18 21:31 Humalog SUB-Q Not Given ACHS [facility] Protocol Lactulose 20 gm 07/04/18 12:00 Cephulac PO Q6HR PRN CONSTIPATION Metoprolol Tartrate 25 mg 06/25/18 09:00 07/05/18 01:40 Lopressor PO 25 mg Q8H JEANETTE Administration Ondansetron HCl 4 mg 06/17/18 03:24 Zofran IV Q8H PRN Nausea And Vomiting Sertraline HCl 50 mg 06/24/18 10:00 07/04/18 09:38 Zoloft PO 50 mg DAILY JEANETTE Administration
[2018-07-05] MEDS: DUONEB *Not for PRN Use IH SCH ×3 (09:21→20:04)
[2018-07-05] MEDS: PEPCID PO SCH (10:59)
[2018-07-05] MEDS: ELIQUIS PO SCH ×2 (11:00→22:44)
[2018-07-05] MEDS: ZOLOFT PO SCH (11:00)
[2018-07-05] MEDS: HumaLOG SUB-Q SCH ×4 (11:03→22:44)
--- NOTE | 2018-07-05 13:57 | Progress Note ---
Assessment and Plan Patient weak, confusing at times. On 3 litres o2. O2 saturation 100%.No acute respiratory distress. - Patient Problems (1) Cardiac arrest Current Visit: Yes Status: Acute Plan to address problem: Patient successfully resuciated. Patient alert, awake and resting on 3 litres O2. (2) Acute respiratory failure with hypoxia Current Visit: Yes Status: Acute Plan to address problem: Patient resting on 3 litres O2. O2 saturation 100%. (3) Acute kidney failure with tubular necrosis Current Visit: Yes Status: Acute Plan to address problem: Management as per nephrology. (4) Altered mental status Current Visit: Yes Status: Acute Plan to address problem: Improving. Still confusing at times. (5) Paroxysmal atrial fibrillation Current Visit: Yes Status: Acute Plan to address problem: Patient is on Apixaban. Management as per cardiology. (6) Acute on chronic systolic heart failure Current Visit: No Status: Acute Plan to address problem: Management as per cardiology. (7) HTN (hypertension) Current Visit: No Status: Chronic Plan to address problem: Management as per primary care. (8) Left lower lobe pulmonary infiltrate Current Visit: Yes Status: Acute Plan to address problem: Patient afebrile. No leukocytosis. Repeat chest xray PA and Lateral reported volume Overload. Subjective Date of service: 07/05/18 Principal diagnosis: altered mental status, psychosis, chronic systolic heart failure, Interval history: Patient weak, confusing at times. On 3 litres o2. O2 saturation 100%.No acute respiratory distress. Objective Vital Signs - 12hr 07/05/18 07/05/18 07/05/18 05:00 09:20 09:25 Temperature Pulse Rate 90 Pulse Rate [ Anterior Bilateral] Pulse Rate [ 78 Throughout] Respiratory 18 Rate Respiratory Rate [Anterior Bilateral] Respiratory 18 Rate [ Throughout] Blood Pressure Blood Pressure 105/48 [Left] O2 Sat by Pulse 96 100 Oximetry 07/05/18 07/05/18 07/05/18 09:28 10:33 11:02 Temperature 97.5 F L Pulse Rate 84 81 Pulse Rate [ Anterior Bilateral] Pulse Rate [ 82 Throughout] Respiratory 18 Rate Respiratory Rate [Anterior Bilateral] Respiratory 18 Rate [ Throughout] Blood Pressure 123/78 Blood Pressure 123/78 [Left] O2 Sat by Pulse 100 Oximetry 07/05/18 07/05/18 13:03 13:13 Temperature Pulse Rate Pulse Rate [ 80 Anterior Bilateral] Pulse Rate [ 75 Throughout] Respiratory Rate Respiratory 18 Rate [Anterior Bilateral] Respiratory 18 Rate [ Throughout] Blood Pressure Blood Pressure [Left] O2 Sat by Pulse Oximetry Constitutional: no acute distress, alert, other (Confusing at times.) Eyes: non-icteric, other (Pupils 4mm, sluggichly reacting to light) ENT: oropharynx dry, other (extubated) Neck: supple, no lymphadenopathy, no JVD, other (no thyromegaly) Effort: normal Ascultation: Bilateral: diminished breath sounds, rales Percussion: Bilateral: not dull Cardiovascular: irregular rhythm, other (S1,S2,) Gastrointestinal: normoactive bowel sounds, soft, non-tender, non-distended Integumentary: rash (exematoid rash to upper chest) Extremities: no cyanosis, no edema, pulses normal, no ischemia or petechiae Neurologic: normal mental status, non-focal exam (grossly), pupils equal and round, CN II-XII normal Psychiatric: depressed CBC and BMP: 07/04/18 05:36 07/04/18 05:36 ABG, PT/INR, D-dimer: ABG POC ABG pH 7.552 (7.35-7.45) H 06/28/18 10:53 POC ABG pCO2 40.8 (35-45) 06/28/18 10:53 POC ABG pO2 83 (80-105) 06/28/18 10:53 POC ABG HCO3 35.9 (22-26 mml/L) 06/28/18 10:53 POC ABG Total CO2 37 (23-27mmol/L) 06/28/18 10:53 POC ABG O2 Sat 97 06/28/18 10:53 Abnormal lab findings: Abnormal Labs 06/16/18 06/16/18 06/16/18 21:05 21:43 21:43 WBC RBC Hgb Hct MCV MCH RDW Plt Count Lymph % (Auto) [place] % (Auto) Lymph # [place] # Seg Neutrophils % Seg Neuts % (Manual) Lymphocytes % (Manual) Seg Neutrophils # Seg Neutrophils # Man Lymphocytes # (Manual) Monocytes # (Manual) POC ABG pH POC ABG pCO2 POC ABG pO2 Sodium 129 L Potassium Chloride 95.3 L Carbon Dioxide 14 L BUN 23 H Creatinine Glucose 146 H POC Glucose < 40 L Lactic Acid Uric Acid Calcium Magnesium Total Bilirubin Direct Bilirubin AST ALT Alkaline Phosphatase Ammonia C-Reactive Protein Total Protein Albumin Vitamin B1 Vitamin B12 25-OH Vitamin D Total Free T4 T3 (GILSON) Urine Creatinine Urine Total Protein Acetaminophen < 5.0 L 06/16/18 06/16/18 06/16/18 21:43 21:43 22:27 WBC RBC 5.70 H Hgb Hct 44.6 H MCV 78 L MCH 25 L RDW 18.7 H Plt Count Lymph % (Auto) [place] % (Auto) Lymph # [place] # Seg Neutrophils % 78.8 H Seg Neuts % (Manual) Lymphocytes % (Manual) Seg Neutrophils # Seg Neutrophils # Man Lymphocytes # (Manual) Monocytes # (Manual) POC ABG pH POC ABG pCO2 POC ABG pO2 Sodium Potassium Chloride Carbon Dioxide BUN Creatinine Glucose POC Glucose 121 H Lactic Acid Uric Acid Calcium Magnesium Total Bilirubin Direct Bilirubin AST ALT Alkaline Phosphatase Ammonia C-Reactive Protein Total Protein Albumin Vitamin B1 Vitamin B12 25-OH Vitamin D Total Free T4 1.87 H T3 (GILSON) Urine Creatinine Urine Total Protein Acetaminophen 06/16/18 06/16/18 06/17/18 22:33 23:43 03:56 WBC RBC Hgb Hct MCV MCH RDW Plt Count Lymph % (Auto) [place] % (Auto) Lymph # [place] # Seg Neutrophils % Seg Neuts % (Manual) Lymphocytes % (Manual) Seg Neutrophils # Seg Neutrophils # Man Lymphocytes # (Manual) Monocytes # (Manual) POC ABG pH POC ABG pCO2 POC ABG pO2 Sodium Potassium Chloride Carbon Dioxide BUN Creatinine Glucose POC Glucose Lactic Acid 4.40 H* 4.30 H* 3.10 H* Uric Acid Calcium Magnesium Total Bilirubin Direct Bilirubin AST ALT Alkaline Phosphatase Ammonia C-Reactive Protein Total Protein Albumin Vitamin B1 Vitamin B12 25-OH Vitamin D Total Free T4 T3 (GILSON) Urine Creatinine Urine Total Protein Acetaminophen 06/17/18 06/17/18 06/17/18 08:35 08:40 11:00 WBC RBC Hgb Hct MCV MCH RDW Plt Count Lymph % (Auto) [place] % (Auto) Lymph # [place] # Seg Neutrophils % Seg Neuts % (Manual) Lymphocytes % (Manual) Seg Neutrophils # Seg Neutrophils # Man Lymphocytes # (Manual) Monocytes # (Manual) POC ABG pH POC ABG pCO2 POC ABG pO2 Sodium Potassium Chloride Carbon Dioxide BUN Creatinine Glucose POC Glucose 56 L Lactic Acid 2.70 H* 3.40 H* Uric Acid Calcium Magnesium Total Bilirubin Direct Bilirubin AST ALT Alkaline Phosphatase Ammonia C-Reactive Protein Total Protein Albumin Vitamin B1 Vitamin B12 25-OH Vitamin D Total Free T4 T3 (GILSON) Urine Creatinine Urine Total Protein Acetaminophen 06/17/18 06/17/18 06/17/18 11:00 11:00 11:00 WBC 11.9 H RBC 5.25 H Hgb Hct MCV MCH 25 L RDW 18.6 H Plt Count Lymph % (Auto) [place] % (Auto) Lymph # [place] # Seg Neutrophils % Seg Neuts % (Manual) Lymphocytes % (Manual) Seg Neutrophils # Seg Neutrophils # Man Lymphocytes # (Manual) Monocytes # (Manual) POC ABG pH POC ABG pCO2 POC ABG pO2 Sodium 128 L Potassium Chloride 95.6 L Carbon Dioxide 15 L BUN 22 H Creatinine Glucose 110 H POC Glucose Lactic Acid Uric Acid Calcium 8.3 L Magnesium Total Bilirubin Direct Bilirubin 1.6 H AST 66 H ALT Alkaline Phosphatase 178 H Ammonia C-Reactive Protein Total Protein 4.7 L Albumin 2.4 L Vitamin B1 Vitamin B12 25-OH Vitamin D Total Free T4 T3 (GILSON) Urine Creatinine Urine Total Protein Acetaminophen 06/17/18 06/17/18 06/17/18 15:08 15:08 23:00 WBC RBC Hgb Hct MCV MCH RDW Plt Count Lymph % (Auto) [place] % (Auto) Lymph # [place] # Seg Neutrophils % Seg Neuts % (Manual) Lymphocytes % (Manual) Seg Neutrophils # Seg Neutrophils # Man Lymphocytes # (Manual) Monocytes # (Manual) POC ABG pH POC ABG pCO2 POC ABG pO2 Sodium Potassium Chloride Carbon Dioxide BUN Creatinine Glucose POC Glucose Lactic Acid 4.00 H* Uric Acid Calcium Magnesium Total Bilirubin Direct Bilirubin AST ALT Alkaline Phosphatase Ammonia 10.0 L C-Reactive Protein Total Protein Albumin Vitamin B1 Vitamin B12 25-OH Vitamin D Total Free T4 1.53 H T3 (GILSON) Urine Creatinine Urine Total Protein Acetaminophen 06/18/18 06/18/18 06/18/18 08:59 08:59 12:49 WBC RBC 5.29 H Hgb Hct MCV 78 L MCH 25 L RDW 18.4 H Plt Count Lymph % (Auto) [place] % (Auto) Lymph # [place] # Seg Neutrophils % Seg Neuts % (Manual) Lymphocytes % (Manual) Seg Neutrophils # Seg Neutrophils # Man Lymphocytes # (Manual) Monocytes # (Manual) POC ABG pH POC ABG pCO2 POC ABG pO2 Sodium 128 L Potassium 5.9 H D Chloride 96.1 L Carbon Dioxide 20 L BUN 22 H Creatinine Glucose POC Glucose 60 L Lactic Acid Uric Acid Calcium Magnesium Total Bilirubin Direct Bilirubin AST ALT Alkaline Phosphatase Ammonia C-Reactive Protein Total Protein Albumin Vitamin B1 Vitamin B12 25-OH Vitamin D Total Free T4 T3 (GILSON) Urine Creatinine Urine Total Protein Acetaminophen 06/18/18 06/19/18 06/19/18 21:28 12:14 13:23 WBC RBC Hgb Hct MCV MCH RDW Plt Count Lymph % (Auto) [place] % (Auto) Lymph # [place] # Seg Neutrophils % Seg Neuts % (Manual) Lymphocytes % (Manual) Seg Neutrophils # Seg Neutrophils # Man Lymphocytes # (Manual) Monocytes # (Manual) POC ABG pH POC ABG pCO2 POC ABG pO2 Sodium 122 L Potassium 5.4 H Chloride 95.0 L Carbon Dioxide 13 L D BUN 21 H Creatinine Glucose 119 H POC Glucose 114 H Lactic Acid Uric Acid Calcium 8.3 L Magnesium Total Bilirubin Direct Bilirubin AST ALT Alkaline Phosphatase Ammonia C-Reactive Protein Total Protein Albumin Vitamin B1 Vitamin B12 25-OH Vitamin D Total Free T4 T3 (GILSON) Urine Creatinine Urine Total Protein Acetaminophen 06/19/18 06/19/18 06/19/18 14:47 16:38 22:42 WBC RBC 5.51 H Hgb Hct 45.3 H MCV MCH 25 L RDW 18.6 H Plt Count Lymph % (Auto) [place] % (Auto) Lymph # [place] # Seg Neutrophils % Seg Neuts % (Manual) Lymphocytes % (Manual) Seg Neutrophils # Seg Neutrophils # Man Lymphocytes # (Manual) Monocytes # (Manual) POC ABG pH POC ABG pCO2 POC ABG pO2 Sodium Potassium Chloride Carbon Dioxide BUN Creatinine Glucose POC Glucose 108 H 49 L Lactic Acid Uric Acid Calcium Magnesium Total Bilirubin Direct Bilirubin AST ALT Alkaline Phosphatase Ammonia C-Reactive Protein Total Protein Albumin Vitamin B1 Vitamin B12 25-OH Vitamin D Total Free T4 T3 (GILSON) Urine Creatinine Urine Total Protein Acetaminophen 06/19/18 06/20/18 06/20/18 Unknown 07:31 16:51 WBC RBC Hgb Hct MCV MCH RDW Plt Count Lymph % (Auto) [place] % (Auto) Lymph # [place] # Seg Neutrophils % Seg Neuts % (Manual) Lymphocytes % (Manual) Seg Neutrophils # Seg Neutrophils # Man Lymphocytes # (Manual) Monocytes # (Manual) POC ABG pH POC ABG pCO2 POC ABG pO2 Sodium 132 L D Potassium Chloride 94.3 L Carbon Dioxide BUN 20 H Creatinine Glucose POC Glucose Lactic Acid Uric Acid 8.6 H Calcium Magnesium 1.30 L Total Bilirubin Direct Bilirubin AST ALT Alkaline Phosphatase Ammonia C-Reactive Protein Total Protein Albumin Vitamin B1 Vitamin B12 25-OH Vitamin D Total Free T4 T3 (GILSON) 58 L Urine Creatinine 61.7 H Urine Total Protein 32 H Acetaminophen 06/20/18 06/20/18 06/21/18 20:53 20:53 16:27 WBC RBC Hgb Hct MCV MCH RDW Plt Count Lymph % (Auto) [place] % (Auto) Lymph # [place] # Seg Neutrophils % Seg Neuts % (Manual) Lymphocytes % (Manual) Seg Neutrophils # Seg Neutrophils # Man Lymphocytes # (Manual) Monocytes # (Manual) POC ABG pH POC ABG pCO2 POC ABG pO2 Sodium Potassium Chloride Carbon Dioxide BUN Creatinine Glucose POC Glucose Lactic Acid Uric Acid 9.2 H Calcium Magnesium Total Bilirubin Direct Bilirubin AST ALT Alkaline Phosphatase Ammonia C-Reactive Protein Total Protein Albumin Vitamin B1 Vitamin B12 1598 H 25-OH Vitamin D Total 10 L Free T4 T3 (GILSON) Urine Creatinine Urine Total Protein Acetaminophen 06/21/18 06/21/18 06/21/18 16:27 16:27 16:27 WBC RBC 5.26 H Hgb Hct MCV 77 L MCH 26 L RDW 17.7 H Plt Count Lymph % (Auto) [place] % (Auto) Lymph # [place] # Seg Neutrophils % Seg Neuts % (Manual) Lymphocytes % (Manual) Seg Neutrophils # Seg Neutrophils # Man Lymphocytes # (Manual) Monocytes # (Manual) POC ABG pH POC ABG pCO2 POC ABG pO2 Sodium 130 L Potassium Chloride 95.6 L Carbon Dioxide BUN 24 H Creatinine Glucose POC Glucose Lactic Acid Uric Acid Calcium Magnesium Total Bilirubin Direct Bilirubin AST ALT Alkaline Phosphatase Ammonia C-Reactive Protein Total Protein Albumin Vitamin B1 <6 L Vitamin B12 25-OH Vitamin D Total Free T4 T3 (GILSON) Urine Creatinine Urine Total Protein Acetaminophen 06/21/18 06/22/18 06/23/18 21:44 21:42 14:54 WBC RBC 5.07 H Hgb Hct MCV 78 L MCH 25 L RDW 18.5 H Plt Count Lymph % (Auto) [place] % (Auto) 12.3 H Lymph # 1.0 L [place] # Seg Neutrophils % Seg Neuts % (Manual) Lymphocytes % (Manual) Seg Neutrophils # Seg Neutrophils # Man Lymphocytes # (Manual) Monocytes # (Manual) POC ABG pH POC ABG pCO2 POC ABG pO2 Sodium Potassium Chloride Carbon Dioxide BUN Creatinine Glucose POC Glucose 126 H 114 H Lactic Acid Uric Acid Calcium Magnesium Total Bilirubin Direct Bilirubin AST ALT Alkaline Phosphatase Ammonia C-Reactive Protein Total Protein Albumin Vitamin B1 Vitamin B12 25-OH Vitamin D Total Free T4 T3 (GILSON) Urine Creatinine Urine Total Protein Acetaminophen 06/23/18 06/25/18 06/25/18 14:54 00:00 00:00 WBC 3.6 L RBC 5.31 H Hgb Hct MCV 77 L MCH 26 L RDW 19.0 H Plt Count Lymph % (Auto) [place] % (Auto) 10.2 H Lymph # [place] # Seg Neutrophils % Seg Neuts % (Manual) Lymphocytes % (Manual) Seg Neutrophils # Seg Neutrophils # Man Lymphocytes # (Manual) Monocytes # (Manual) POC ABG pH POC ABG pCO2 POC ABG pO2 Sodium 132 L 131 L Potassium 3.5 L Chloride 91.5 L 93.5 L Carbon Dioxide BUN 19 H 21 H Creatinine Glucose POC Glucose Lactic Acid Uric Acid Calcium 8.1 L Magnesium Total Bilirubin 2.80 H 2.70 H Direct Bilirubin AST 52 H 81 H ALT Alkaline Phosphatase 231 H 243 H Ammonia C-Reactive Protein Total Protein 5.5 L 5.5 L Albumin 2.8 L 2.7 L Vitamin B1 Vitamin B12 25-OH Vitamin D Total Free T4 T3 (GILSON) Urine Creatinine Urine Total Protein Acetaminophen 06/25/18 06/25/18 06/25/18 16:02 16:02 16:18 WBC 3.9 L RBC 5.78 H Hgb 14.6 H Hct 45.4 H MCV MCH 25 L RDW 19.2 H Plt Count Lymph % (Auto) [place] % (Auto) Lymph # [place] # Seg Neutrophils % Seg Neuts % (Manual) Lymphocytes % (Manual) Seg Neutrophils # Seg Neutrophils # Man Lymphocytes # (Manual) 1.1 L Monocytes # (Manual) POC ABG pH POC ABG pCO2 POC ABG pO2 Sodium 131 L Potassium Chloride 90.0 L Carbon Dioxide BUN 25 H Creatinine 1.4 H Glucose POC Glucose Lactic Acid 4.00 H* Uric Acid Calcium Magnesium Total Bilirubin 3.10 H Direct Bilirubin AST 68 H ALT Alkaline Phosphatase 296 H Ammonia C-Reactive Protein Total Protein 6.1 L Albumin 3.3 L Vitamin B1 Vitamin B12 25-OH Vitamin D Total Free T4 T3 (GILSON) Urine Creatinine Urine Total Protein Acetaminophen 06/25/18 06/26/18 06/26/18 21:06 11:33 11:37 WBC RBC Hgb Hct MCV MCH 26 L RDW 19.2 H Plt Count 139 L Lymph % (Auto) [place] % (Auto) Lymph # [place] # Seg Neutrophils % Seg Neuts % (Manual) 85.0 H Lymphocytes % (Manual) 6.0 L Seg Neutrophils # Seg Neutrophils # Man 8.0 H Lymphocytes # (Manual) 0.6 L Monocytes # (Manual) POC ABG pH POC ABG pCO2 POC ABG pO2 Sodium Potassium Chloride Carbon Dioxide BUN Creatinine Glucose POC Glucose < 40 L Lactic Acid 6.40 H* Uric Acid Calcium Magnesium Total Bilirubin Direct Bilirubin AST ALT Alkaline Phosphatase Ammonia C-Reactive Protein Total Protein Albumin Vitamin B1 Vitamin B12 25-OH Vitamin D Total Free T4 T3 (GILSON) Urine Creatinine Urine Total Protein Acetaminophen 06/26/18 06/26/18 06/26/18 11:37 11:51 11:59 WBC RBC Hgb Hct MCV MCH RDW Plt Count Lymph % (Auto) [place] % (Auto) Lymph # [place] # Seg Neutrophils % Seg Neuts % (Manual) Lymphocytes % (Manual) Seg Neutrophils # Seg Neutrophils # Man Lymphocytes # (Manual) Monocytes # (Manual) POC ABG pH 7.029 L POC ABG pCO2 POC ABG pO2 73 L Sodium 129 L Potassium Chloride 87.0 L Carbon Dioxide 11 L D BUN 31 H Creatinine 1.9 H Glucose 206 H POC Glucose 253 H Lactic Acid Uric Acid Calcium 7.9 L Magnesium Total Bilirubin 2.90 H Direct Bilirubin AST 98 H ALT Alkaline Phosphatase 196 H Ammonia C-Reactive Protein Total Protein 4.3 L D Albumin 2.2 L Vitamin B1 Vitamin B12 25-OH Vitamin D Total Free T4 T3 (GILSON) Urine Creatinine Urine Total Protein Acetaminophen 06/26/18 06/26/18 06/26/18 14:54 15:08 15:10 WBC 14.2 H RBC 5.66 H Hgb 14.5 H Hct 45.6 H D MCV MCH 26 L RDW 19.4 H Plt Count Lymph % (Auto) [place] % (Auto) Lymph # [place] # Seg Neutrophils % Seg Neuts % (Manual) 88.0 H Lymphocytes % (Manual) 5.0 L Seg Neutrophils # Seg Neutrophils # Man 12.5 H Lymphocytes # (Manual) 0.7 L Monocytes # (Manual) 0.9 H POC ABG pH POC ABG pCO2 POC ABG pO2 Sodium Potassium Chloride Carbon Dioxide BUN Creatinine Glucose POC Glucose 172 H Lactic Acid 11.90 H* Uric Acid Calcium Magnesium Total Bilirubin Direct Bilirubin AST ALT Alkaline Phosphatase Ammonia C-Reactive Protein Total Protein Albumin Vitamin B1 Vitamin B12 25-OH Vitamin D Total Free T4 T3 (GILSON) Urine Creatinine Urine Total Protein Acetaminophen 06/26/18 06/26/18 06/26/18 16:01 18:47 20:55 WBC RBC Hgb Hct MCV MCH RDW Plt Count Lymph % (Auto) [place] % (Auto) Lymph # [place] # Seg Neutrophils % Seg Neuts % (Manual) Lymphocytes % (Manual) Seg Neutrophils # Seg Neutrophils # Man Lymphocytes # (Manual) Monocytes # (Manual) POC ABG pH POC ABG pCO2 34.0 L POC ABG pO2 Sodium Potassium Chloride Carbon Dioxide BUN Creatinine Glucose POC Glucose 183 H 131 H Lactic Acid Uric Acid Calcium Magnesium Total Bilirubin Direct Bilirubin AST ALT Alkaline Phosphatase Ammonia C-Reactive Protein Total Protein Albumin Vitamin B1 Vitamin B12 25-OH Vitamin D Total Free T4 T3 (GILSON) Urine Creatinine Urine Total Protein Acetaminophen 06/26/18 06/27/18 06/27/18 21:55 09:29 09:29 WBC RBC Hgb Hct MCV MCH RDW Plt Count Lymph % (Auto) [place] % (Auto) Lymph # [place] # Seg Neutrophils % Seg Neuts % (Manual) Lymphocytes % (Manual) Seg Neutrophils # Seg Neutrophils # Man Lymphocytes # (Manual) Monocytes # (Manual) POC ABG pH POC ABG pCO2 POC ABG pO2 Sodium 135 L 135 L Potassium 3.5 L Chloride 91.7 L 91.2 L Carbon Dioxide BUN 35 H 37 H Creatinine 2.3 H 2.1 H Glucose 147 H 104 H POC Glucose Lactic Acid Uric Acid Calcium 8.3 L 8.1 L Magnesium Total Bilirubin 3.50 H Direct Bilirubin AST 218 H ALT 57 H Alkaline Phosphatase 197 H Ammonia C-Reactive Protein Total Protein 5.0 L Albumin 2.3 L Vitamin B1 Vitamin B12 25-OH Vitamin D Total Free T4 1.78 H T3 (GILSON) Urine Creatinine Urine Total Protein Acetaminophen 06/27/18 06/27/18 06/27/18 09:29 09:29 10:00 WBC 16.3 H RBC 5.44 H Hgb Hct MCV 76 L MCH 25 L RDW 18.3 H Plt Count Lymph % (Auto) [place] % (Auto) Lymph # [place] # Seg Neutrophils % Seg Neuts % (Manual) 91.0 H Lymphocytes % (Manual) 3.0 L Seg Neutrophils # Seg Neutrophils # Man 14.8 H Lymphocytes # (Manual) 0.5 L Monocytes # (Manual) 1.0 H POC ABG pH POC ABG pCO2 POC ABG pO2 Sodium Potassium Chloride Carbon Dioxide BUN Creatinine Glucose POC Glucose 106 H Lactic Acid 4.00 H* Uric Acid Calcium Magnesium Total Bilirubin Direct Bilirubin AST ALT Alkaline Phosphatase Ammonia C-Reactive Protein Total Protein Albumin Vitamin B1 Vitamin B12 25-OH Vitamin D Total Free T4 T3 (GILSON) Urine Creatinine Urine Total Protein Acetaminophen 06/27/18 06/27/18 06/27/18 11:51 12:50 13:39 WBC RBC Hgb Hct MCV MCH RDW Plt Count Lymph % (Auto) [place] % (Auto) Lymph # [place] # Seg Neutrophils % Seg Neuts % (Manual) Lymphocytes % (Manual) Seg Neutrophils # Seg Neutrophils # Man Lymphocytes # (Manual) Monocytes # (Manual) POC ABG pH 7.584 H POC ABG pCO2 32.8 L POC ABG pO2 109 H Sodium Potassium Chloride Carbon Dioxide BUN Creatinine Glucose POC Glucose 112 H Lactic Acid 3.20 H* Uric Acid Calcium Magnesium Total Bilirubin Direct Bilirubin AST ALT Alkaline Phosphatase Ammonia C-Reactive Protein Total Protein Albumin Vitamin B1 Vitamin B12 25-OH Vitamin D Total Free T4 T3 (GILSON) Urine Creatinine Urine Total Protein Acetaminophen 06/27/18 06/27/18 06/27/18 19:31 21:50 23:10 WBC RBC Hgb Hct MCV MCH RDW Plt Count Lymph % (Auto) [place] % (Auto) Lymph # [place] # Seg Neutrophils % Seg Neuts % (Manual) Lymphocytes % (Manual) Seg Neutrophils # Seg Neutrophils # Man Lymphocytes # (Manual) Monocytes # (Manual) POC ABG pH POC ABG pCO2 POC ABG pO2 Sodium Potassium Chloride Carbon Dioxide BUN Creatinine Glucose POC Glucose Lactic Acid 2.40 H* 2.30 H* 2.30 H* Uric Acid Calcium Magnesium Total Bilirubin Direct Bilirubin AST ALT Alkaline Phosphatase Ammonia C-Reactive Protein Total Protein Albumin Vitamin B1 Vitamin B12 25-OH Vitamin D Total Free T4 T3 (GILSON) Urine Creatinine Urine Total Protein Acetaminophen 06/28/18 06/28/18 06/28/18 02:35 05:00 05:00 WBC RBC Hgb Hct MCV MCH RDW Plt Count Lymph % (Auto) [place] % (Auto) Lymph # [place] # Seg Neutrophils % Seg Neuts % (Manual) Lymphocytes % (Manual) Seg Neutrophils # Seg Neutrophils # Man Lymphocytes # (Manual) Monocytes # (Manual) POC ABG pH POC ABG pCO2 POC ABG pO2 Sodium 134 L Potassium 2.6 L* D Chloride 92.3 L Carbon Dioxide 32 H BUN 34 H Creatinine 1.8 H Glucose 127 H POC Glucose Lactic Acid 2.20 H* 2.30 H* Uric Acid Calcium 7.5 L Magnesium Total Bilirubin 3.50 H Direct Bilirubin AST 226 H ALT 60 H Alkaline Phosphatase 172 H Ammonia C-Reactive Protein Total Protein 4.2 L Albumin 2.0 L Vitamin B1 Vitamin B12 25-OH Vitamin D Total Free T4 T3 (GILSON) Urine Creatinine Urine Total Protein Acetaminophen 06/28/18 06/28/18 06/28/18 05:00 08:30 08:30 WBC 15.7 H RBC Hgb Hct MCV 77 L MCH 25 L RDW 18.5 H Plt Count 112 L Lymph % (Auto) 6.0 L [place] % (Auto) 10.0 H Lymph # 0.9 L [place] # 1.6 H Seg Neutrophils % 83.4 H Seg Neuts % (Manual) Lymphocytes % (Manual) Seg Neutrophils # 13.1 H Seg Neutrophils # Man Lymphocytes # (Manual) Monocytes # (Manual) POC ABG pH POC ABG pCO2 POC ABG pO2 Sodium Potassium Chloride Carbon Dioxide BUN Creatinine Glucose POC Glucose Lactic Acid 2.40 H* Uric Acid Calcium Magnesium Total Bilirubin Direct Bilirubin AST ALT Alkaline Phosphatase Ammonia C-Reactive Protein 4.80 H Total Protein Albumin Vitamin B1 Vitamin B12 25-OH Vitamin D Total Free T4 T3 (GILSON) Urine Creatinine Urine Total Protein Acetaminophen 06/28/18 06/28/18 06/28/18 10:53 11:23 18:35 WBC RBC Hgb Hct MCV MCH RDW Plt Count Lymph % (Auto) [place] % (Auto) Lymph # [place] # Seg Neutrophils % Seg Neuts % (Manual) Lymphocytes % (Manual) Seg Neutrophils # Seg Neutrophils # Man Lymphocytes # (Manual) Monocytes # (Manual) POC ABG pH 7.552 H POC ABG pCO2 POC ABG pO2 Sodium Potassium 3.1 L Chloride Carbon Dioxide BUN Creatinine Glucose POC Glucose 122 H Lactic Acid Uric Acid Calcium Magnesium Total Bilirubin Direct Bilirubin AST ALT Alkaline Phosphatase Ammonia C-Reactive Protein Total Protein Albumin Vitamin B1 Vitamin B12 25-OH Vitamin D Total Free T4 T3 (GILSON) Urine Creatinine Urine Total Protein Acetaminophen 06/29/18 06/29/18 06/29/18 06:40 06:40 19:44 WBC 14.6 H RBC Hgb Hct MCV 77 L MCH 25 L RDW 19.3 H Plt Count 88 L Lymph % (Auto) [place] % (Auto) Lymph # [place] # Seg Neutrophils % Seg Neuts % (Manual) Lymphocytes % (Manual) Seg Neutrophils # Seg Neutrophils # Man Lymphocytes # (Manual) Monocytes # (Manual) POC ABG pH POC ABG pCO2 POC ABG pO2 Sodium Potassium 2.7 L* Chloride 95.3 L Carbon Dioxide 32 H BUN 25 H Creatinine Glucose 145 H POC Glucose 59 L Lactic Acid Uric Acid Calcium 7.9 L Magnesium Total Bilirubin 3.60 H Direct Bilirubin AST 213 H ALT Alkaline Phosphatase 176 H Ammonia C-Reactive Protein Total Protein 4.8 L Albumin 2.2 L Vitamin B1 Vitamin B12 25-OH Vitamin D Total Free T4 T3 (GILSON) Urine Creatinine Urine Total Protein Acetaminophen 06/29/18 06/30/18 06/30/18 20:43 02:37 04:45 WBC RBC Hgb Hct MCV MCH RDW Plt Count Lymph % (Auto) [place] % (Auto) Lymph # [place] # Seg Neutrophils % Seg Neuts % (Manual) Lymphocytes % (Manual) Seg Neutrophils # Seg Neutrophils # Man Lymphocytes # (Manual) Monocytes # (Manual) POC ABG pH POC ABG pCO2 POC ABG pO2 Sodium Potassium 3.1 L 2.8 L* Chloride Carbon Dioxide 31 H BUN 18 H Creatinine Glucose POC Glucose 59 L Lactic Acid Uric Acid Calcium 8.0 L Magnesium Total Bilirubin 3.70 H Direct Bilirubin AST 216 H ALT 63 H Alkaline Phosphatase 163 H Ammonia C-Reactive Protein Total Protein 4.5 L Albumin 2.1 L Vitamin B1 Vitamin B12 25-OH Vitamin D Total Free T4 T3 (GILSON) Urine Creatinine Urine Total Protein Acetaminophen 06/30/18 06/30/18 07/01/18 04:45 06:24 04:39 WBC 12.1 H RBC Hgb Hct MCV 78 L 77 L MCH 25 L 25 L RDW 19.0 H 19.3 H Plt Count 91 L 77 L Lymph % (Auto) Stephenson % (Auto) Lymph # Stephenson # Seg Neutrophils % Seg Neuts % (Manual) Lymphocytes % (Manual) Seg Neutrophils # Seg Neutrophils # Man Lymphocytes # (Manual) Monocytes # (Manual) POC ABG pH POC ABG pCO2 POC ABG pO2 Sodium Potassium Chloride Carbon Dioxide BUN Creatinine Glucose POC Glucose 63 L Lactic Acid Uric Acid Calcium Magnesium Total Bilirubin Direct Bilirubin AST ALT Alkaline Phosphatase Ammonia C-Reactive Protein Total Protein Albumin Vitamin B1 Vitamin B12 25-OH Vitamin D Total Free T4 T3 (GILSON) Urine Creatinine Urine Total Protein Acetaminophen 07/01/18 07/01/18 07/02/18 04:39 11:12 05:23 WBC RBC Hgb Hct MCV 77 L MCH 25 L RDW 19.2 H Plt Count 78 L Lymph % (Auto) Stephenson % (Auto) Lymph # Stephenson # Seg Neutrophils % Seg Neuts % (Manual) Lymphocytes % (Manual) Seg Neutrophils # Seg Neutrophils # Man Lymphocytes # (Manual) Monocytes # (Manual) POC ABG pH POC ABG pCO2 POC ABG pO2 Sodium Potassium 3.5 L D Chloride Carbon Dioxide BUN Creatinine Glucose 109 H POC Glucose 206 H Lactic Acid Uric Acid Calcium 8.1 L Magnesium Total Bilirubin 3.90 H Direct Bilirubin AST 163 H ALT 60 H Alkaline Phosphatase 166 H Ammonia C-Reactive Protein Total Protein 4.5 L Albumin 2.0 L Vitamin B1 Vitamin B12 25-OH Vitamin D Total Free T4 T3 (GILSON) Urine Creatinine Urine Total Protein Acetaminophen 07/02/18 07/02/18 07/03/18 05:23 12:18 08:14 WBC RBC Hgb Hct MCV 76 L MCH 25 L RDW 19.0 H Plt Count 84 L Lymph % (Auto) Stephenson % (Auto) Lymph # Stephenson # Seg Neutrophils % Seg Neuts % (Manual) Lymphocytes % (Manual) Seg Neutrophils # Seg Neutrophils # Man Lymphocytes # (Manual) Monocytes # (Manual) POC ABG pH POC ABG pCO2 POC ABG pO2 Sodium 135 L Potassium 3.4 L Chloride Carbon Dioxide BUN Creatinine 0.6 L Glucose POC Glucose 144 H Lactic Acid Uric Acid Calcium 8.3 L Magnesium Total Bilirubin Direct Bilirubin AST ALT Alkaline Phosphatase Ammonia C-Reactive Protein Total Protein Albumin Vitamin B1 Vitamin B12 25-OH Vitamin D Total Free T4 T3 (GILSON) Urine Creatinine Urine Total Protein Acetaminophen 07/03/18 07/03/18 07/04/18 08:14 16:33 05:36 WBC RBC Hgb Hct MCV 77 L MCH 25 L RDW 18.5 H Plt Count 103 L Lymph % (Auto) Stephenson % (Auto) Lymph # Stephenson # Seg Neutrophils % Seg Neuts % (Manual) Lymphocytes % (Manual) Seg Neutrophils # Seg Neutrophils # Man Lymphocytes # (Manual) Monocytes # (Manual) POC ABG pH POC ABG pCO2 POC ABG pO2 Sodium 135 L Potassium Chloride 97.7 L Carbon Dioxide BUN Creatinine 0.5 L Glucose POC Glucose 69 L Lactic Acid Uric Acid Calcium 8.2 L Magnesium 1.50 L Total Bilirubin Direct Bilirubin AST ALT Alkaline Phosphatase Ammonia C-Reactive Protein Total Protein Albumin Vitamin B1 Vitamin B12 25-OH Vitamin D Total Free T4 T3 (GILSON) Urine Creatinine Urine Total Protein Acetaminophen 07/04/18 07/04/18 07/04/18 05:36 08:54 11:47 WBC RBC Hgb Hct MCV MCH RDW Plt Count Lymph % (Auto) Stephenson % (Auto) Lymph # Stephenson # Seg Neutrophils % Seg Neuts % (Manual) Lymphocytes % (Manual) Seg Neutrophils # Seg Neutrophils # Man Lymphocytes # (Manual) Monocytes # (Manual) POC ABG pH POC ABG pCO2 POC ABG pO2 Sodium 135 L Potassium Chloride Carbon Dioxide BUN Creatinine 0.5 L Glucose POC Glucose 61 L 122 H Lactic Acid Uric Acid Calcium 8.2 L Magnesium Total Bilirubin Direct Bilirubin AST ALT Alkaline Phosphatase Ammonia C-Reactive Protein Total Protein Albumin Vitamin B1 Vitamin B12 25-OH Vitamin D Total Free T4 T3 (GILSON) Urine Creatinine Urine Total Protein Acetaminophen 07/04/18 16:44 WBC RBC Hgb Hct MCV MCH RDW Plt Count Lymph % (Auto) Stephenson % (Auto) Lymph # Stephenson # Seg Neutrophils % Seg Neuts % (Manual) Lymphocytes % (Manual) Seg Neutrophils # Seg Neutrophils # Man Lymphocytes # (Manual) Monocytes # (Manual) POC ABG pH POC ABG pCO2 POC ABG pO2 Sodium Potassium Chloride Carbon Dioxide BUN Creatinine Glucose POC Glucose 124 H Lactic Acid Uric Acid Calcium Magnesium Total Bilirubin Direct Bilirubin AST ALT Alkaline Phosphatase Ammonia C-Reactive Protein Total Protein Albumin Vitamin B1 Vitamin B12 25-OH Vitamin D Total Free T4 T3 (GILSON) Urine Creatinine Urine Total Protein Acetaminophen Chest x-ray: report reviewed (Volume Overload, CHF), image reviewed Allied health notes reviewed: nursing
--- NOTE | 2018-07-05 14:08 | Progress Note ---
Assessment and Plan - Patient Problems (1) Acute on chronic systolic heart failure Current Visit: No Status: Acute Plan to address problem: Medical therapy for severe dilated cardiomyopathy and chronic systolic heart failure. Subjective Date of service: 07/05/18 Principal diagnosis: altered mental status, psychosis, chronic systolic heart failure, Interval history: Patient is comfortable, no chest pain and no shortness of breath. Objective Vital Signs Temp Pulse Pulse Pulse Pulse Resp Resp 07/05/18 13:13 80 18 07/05/18 13:03 75 07/05/18 11:02 81 07/05/18 10:33 97.5 F L 84 18 07/05/18 09:28 82 07/05/18 09:25 07/05/18 09:20 78 07/05/18 05:00 90 18 07/05/18 00:00 98.1 F 110 H 20 07/04/18 22:00 95 H 112 H 18 07/04/18 21:21 82 07/04/18 21:15 07/04/18 21:11 87 07/04/18 20:00 98.1 F 49 L 18 07/04/18 16:36 78 07/04/18 16:30 78 07/04/18 16:00 97.6 F 78 17 07/04/18 14:19 78 07/04/18 14:10 77 Resp BP BP Pulse Ox 07/05/18 13:13 07/05/18 13:03 18 07/05/18 11:02 123/78 07/05/18 10:33 123/78 100 07/05/18 09:28 18 07/05/18 09:25 100 07/05/18 09:20 18 07/05/18 05:00 105/48 96 07/05/18 00:00 125/59 94 07/04/18 22:00 97 07/04/18 21:21 18 07/04/18 21:15 100 07/04/18 21:11 18 07/04/18 20:00 126/64 96 07/04/18 16:36 111/75 07/04/18 16:30 111/75 07/04/18 16:00 111/75 96 07/04/18 14:19 18 07/04/18 14:10 18 - Physical Examination General: No Apparent Distress, Cachectic HEENT: Positive: PERRL Neck: Positive: trachea midline Cardiac: Positive: Reg Rate and Rhythm Lungs: Positive: Decreased Breath Sounds Neuro: Positive: Grossly Intact Abdomen: Positive: Unremarkable Skin: Positive: Clear Extremities: Absent: edema - Allied health notes Allied health notes reviewed: nursing
--- NOTE | 2018-07-05 15:01 | Progress Note ---
Subjective - Reason for Consult Consult date: 07/05/18 Reason for consult: Psychiatry Follow-up - Chief Complaint Chief complaint: "The patient is lethargic" Patient is a 68-year-old female who presented to the ED with altered mental status. Today the patient is lethargic during the assessment. The patient fell asleep during the interview. Attempts were made to keep the patient awake, but was unsuccessful. No gestures of SI/HI's. Mental Status Exam - Vital signs Last Vital Signs Temp 97.5 F L 07/05/18 10:33 Pulse 80 07/05/18 13:13 Resp 18 07/05/18 13:13 BP 123/78 07/05/18 11:02 Pulse Ox 100 07/05/18 10:33 - Exam Narrative exam: Unable to complete the MSE because of the patient's condition. Assessment and Plan Impression: Today the patient is lethargic during the assessment. Elevated LF's. Recommendation/Plan: Gather more collateral information to help determine proper treatment and to R/O a Neuro Cog DO. .Continue home medication Zoloft 50 mg PO daily for depression. Attempt to reassess the patient in 24 hours. Recommend De lirium precautions below: 1. Frequently reorient patient and involve him/her in their care (simple explanations of procedures, tests, medications). 2. Lights on and shades open during daytime hours. 3. Write date and goals of care in a visible place. 4. Try to avoid unnecessary interruptions to sleep during nighttime hours. 5. Obtain glasses, hearing aids from home if patient uses these at baseline. 6. Avoid medications that may exacerbate delirium (especially narcotics, benzodiazepines, barbiturates, ambien, lunesta, and medications with excessive anticholinergic properties). 7. Continue 1:1 sitter for safety. Dispo: The patient pending SNF placement per the notes.. Will staff with Dr Donna Rey.
--- NOTE | 2018-07-05 16:42 | Progress Note ---
Assessment and Plan /Acute Respiratory failure following Cardiac Arrest - ? PEA from hypoglycemia or Haldol administration- now off the ventilator and on nasal canula /s/p Cardiac arrest after Haldol: listed Haldol as an Allergy/Adverse drug. Severe NICM also contributed to the event I believe. /Severe NICM, ionotrope dependent : - Cardiology recommends Hospice, dobutamine now off by Cardiology /Acute on Chronic systolic CHF of EF 20-25%, - patient has been on hospice before, it appears she was discharged from hospice. 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 Antibiotics discontinued /Persistently elevated Lactic acidosis:-Likely secondary to hypoperfusion- improving /Hypokalemia: replace -DVT prophylaxis: Patient is on Eliquis Brief History Patient is 68 yo woman with a history of hypertension, CHF and Atrial fibrillation who was on hospice presented with altered mental status. She was climbing a fence, running wild; therefore, brought to ED. CT head was neg. MRI Brain unremarkable. Patient evaluated by Neuro and psychiatry. She was initially a 1013 but is was rescinded. It appears Neurology believes patient AMS is a psychotic disorder but Psychiatry has not really making a definitive diagnosis. During the hospital stay, She received Haldol to obtain CT head but had PEA cardiac arrest on 06/26/18, she received Epinephrine then developed pulseless Ventricular fibrillation and 1 shock via defibrillator was delivered with return of pulse. She was also found to have a very low blood glucose during the cardiac arrest and was treated with IV dextrose. She was intubated during the Code blue and sent to ICU. Cardiology consulted, she is s/p dobutamin drip for severe NICM, now extubated and transferred out off ICU. Plan to d/c SNF with hospice. Hospitalist Physical GEN: WDWN, NAD, Awake, Alert, confused HEENT: NCAT, EOMI, PERRL, OP Clear NECK: supple, no adenopathy, no thyromegaly, no JVD CVS/HEART: irregular, normal S1S2, pulses present bilaterally CHEST/LUNGS: CTA B, Symmetrical chest expansion, good air entry bilaterally GI/Abdomen: soft, NTND, good bowel sounds, no guarding or rebound /Bladder: no suprapubic tenderness, no CVA or paraspinal tenderness EXT/Skin: no c/c, +edema, no obvious rash MSK: FROM x 4 Neuro: CN 2-12 grossly intact, not following commands Psych: calm Subjective Date of service: 07/05/18 Principal diagnosis: altered mental status, psychosis, chronic systolic heart failure, Interval history: Patient seen and examined, unable to provide any history, per RN no acute issue overnight. Objective - Constitutional Vitals: Vital Signs - 12hr 07/05/18 07/05/18 07/05/18 05:00 09:20 09:25 Temperature Pulse Rate 90 Pulse Rate [ Anterior Bilateral] Pulse Rate [ 78 Throughout] Respiratory 18 Rate Respiratory Rate [Anterior Bilateral] Respiratory 18 Rate [ Throughout] Blood Pressure Blood Pressure 105/48 [Left] O2 Sat by Pulse 96 100 Oximetry 07/05/18 07/05/18 07/05/18 09:28 10:00 10:33 Temperature 97.5 F L Pulse Rate 87 84 Pulse Rate [ Anterior Bilateral] Pulse Rate [ 82 Throughout] Respiratory 18 Rate Respiratory Rate [Anterior Bilateral] Respiratory 18 Rate [ Throughout] Blood Pressure Blood Pressure 123/78 [Left] O2 Sat by Pulse 100 Oximetry 07/05/18 07/05/18 07/05/18 11:02 13:03 13:13 Temperature Pulse Rate 81 Pulse Rate [ 80 Anterior Bilateral] Pulse Rate [ 75 Throughout] Respiratory Rate Respiratory 18 Rate [Anterior Bilateral] Respiratory 18 Rate [ Throughout] Blood Pressure 123/78 Blood Pressure [Left] O2 Sat by Pulse Oximetry 07/05/18 15:26 Temperature 98.0 F Pulse Rate Pulse Rate [ Anterior Bilateral] Pulse Rate [ Throughout] Respiratory Rate Respiratory Rate [Anterior Bilateral] Respiratory Rate [ Throughout] Blood Pressure Blood Pressure 125/71 [Left] O2 Sat by Pulse Oximetry - Labs CBC & Chem 7: 07/04/18 05:36 07/04/18 05:36 Labs: Abnormal lab results 07/04/18 07/04/18 Range/Units 11:47 16:44 POC Glucose 122 H 124 H (70-105)
[2018-07-05] MEDS: LANOXIN PO SCH (17:14)
[2018-07-05] MEDS: LASIX PO SCH (17:15)
[2018-07-06] MEDS: LOPRESSOR PO SCH ×2 (01:39→17:24)
[2018-07-06] MEDS: LASIX PO SCH ×2 (06:16→17:24)
[2018-07-06] MEDS: DUONEB *Not for PRN Use IH SCH ×3 (07:57→20:13)
[2018-07-06] MEDS: HumaLOG SUB-Q SCH ×4 (08:56→22:16)
--- NOTE | 2018-07-06 09:51 | Progress Note ---
Assessment and Plan - Patient Problems (1) Hyponatremia with decreased serum osmolality Current Visit: Yes Status: Acute Plan to address problem: Likely in the setting of fluid overload. Continues on current diuretic regimen. Cardiology following, now transferred out to telemetry. Overall serum sodium levels are stable (2) Fluid overload Current Visit: Yes Status: Chronic Qualifiers: Hypervolemia type: other Qualified Code(s): E87.79 - Other fluid overload Plan to address problem: Agree with current regimen and diuretic management. Would recommend fluid restrictions and appropriate low-sodium diet given her history of end-stage heart disease and cardiomyopathy. Further management per cardiology. (3) Acute on chronic systolic heart failure Current Visit: No Status: Acute Plan to address problem: Follow up with further recommendations per cardiology. Will continue on current diuretic regimen along with appropriate fluid restrictions and low sodium diet. (4) Altered mental status Current Visit: Yes Status: Acute Plan to address problem: We'll continue to monitor closely. Psychiatry evaluation noted. (5) HTN (hypertension) Current Visit: No Status: Chronic Plan to address problem: Continue on current regimen and will monitor. Subjective Date of service: 07/06/18 Principal diagnosis: altered mental status, psychosis, chronic systolic heart failure, Interval history: no acute changes overnight. Labs noted and renal function is stable. Objective - Vital Signs Vital signs: Vital Signs - 12hr 07/05/18 07/06/18 07/06/18 23:00 01:39 05:00 Temperature 97.5 F L 98.4 F Pulse Rate 80 80 88 Pulse Rate [ Anterior Bilateral] Pulse Rate [ Throughout] Respiratory 19 19 Rate Respiratory Rate [Anterior Bilateral] Respiratory Rate [ Throughout] Blood Pressure 143/73 Blood Pressure 143/73 124/62 [Left] O2 Sat by Pulse 100 100 Oximetry 07/06/18 07/06/18 07:57 08:58 Temperature Pulse Rate Pulse Rate [ 82 Anterior Bilateral] Pulse Rate [ 84 Throughout] Respiratory Rate Respiratory 16 Rate [Anterior Bilateral] Respiratory 16 Rate [ Throughout] Blood Pressure Blood Pressure [Left] O2 Sat by Pulse 100 Oximetry - General Appearance General appearance: chronically ill, frail EENT: ATNC, PERRL Neck: no JVD, no thyromegaly Respiratory: Present: Decreased Breath Sounds Cardiology: regular, S1S2 Gastrointestinal: normal, normoactive bowel sounds Integumentary: no rash, warm and dry Neurologic: no focal deficit, confused Musculoskeletal: other (mild edema ) - Lab 07/04/18 05:36 07/04/18 05:36 Most recent lab results Calcium 8.2 mg/dL (8.4-10.2) L 07/04/18 05:36 Phosphorus 2.50 mg/dL (2.5-4.5) 06/20/18 07:31 Magnesium 1.50 mg/dL (1.7-2.3) L 07/03/18 08:14 Urine Creatinine 61.7 mg/dL (0.1-20.0) H 06/19/18 Unknown Urine Total Protein 32 mg/dL (5-11.8) H 06/19/18 Unknown - Allied health notes Allied health notes reviewed: nursing Medications & Allergies - Medications Allergies/Adverse Reactions: Allergies Penicillins Allergy (Verified 09/04/17 14:11) Unknown aspirin Adverse Reaction (Verified 09/04/17 14:10) Nausea haloperidol [From Haldol] Adverse Reaction (Verified 07/02/18 14:24) Anaphylaxis NSAIDS (Non-Steroidal Anti-Inflamma Adverse Reaction (Verified 09/04/17 14:10) Nausea Pork/Porcine Containing Products Adverse Reaction (Verified 11/01/17 09:04) Nausea Home Medications: Home Medications Medication Instructions Recorded Confirmed Last Taken Type Apixaban [Eliquis] 5 mg PO DAILY 09/06/17 07/02/18 Unknown History AtorvaSTATin [Lipitor] 20 mg PO DAILY 09/06/17 07/02/18 Unknown History Loperamide HCl [Loperamide] 2 mg PO DAILY 09/06/17 07/02/18 Unknown History Sertraline [Zoloft] 50 mg PO DAILY 09/06/17 07/02/18 10/17/17 10:00 History Sucralfate [Carafate] 1 gm PO DAILY 09/06/17 07/02/18 Unknown History Carvedilol [Coreg] 12.5 mg PO BID #60 tablet 09/08/17 07/02/18 Unknown Rx Lisinopril [Zestril TAB] 5 mg PO QDAY #30 tablet 09/08/17 07/02/18 Unknown Rx Doxycycline [Vibramycin CAP] 100 mg PO Q12HR #10 capsule 11/02/17 07/02/18 Unknown Rx Furosemide [Lasix] 20 mg PO QDAY #30 tablet 11/02/17 07/02/18 Unknown Rx Active Medications: Generic Name Dose Route Start Last Admin Trade Name Freq PRN Reason Stop Dose Admin Acetaminophen 650 mg 06/17/18 03:33 07/02/18 14:01 Tylenol PO 650 mg Q4H PRN Administration Fever >101 Albuterol/Ipratropium 1 ampul 06/27/18 14:00 07/06/18 07:57 Duoneb *Not For Prn Use* IH 1 ampul TIDRT JEANETTE Administration Apixaban 5 mg 06/20/18 16:00 07/05/18 22:44 Eliquis PO 5 mg Q12HR JEANETTE Administration Protocol Atorvastatin Calcium 20 mg 06/19/18 22:00 07/05/18 22:42 Lipitor PO 20 mg QHS JEANETTE Administration Dextrose 50 ml 07/01/18 11:50 D50w (25gm) Syringe IV PRN PRN Hypoglycemia Digoxin 0.125 mg 06/24/18 17:00 07/05/18 17:14 Lanoxin PO 0.125 mg DAILY@1700 JEANETTE Administration Famotidine 20 mg 06/27/18 12:00 07/05/18 10:59 Pepcid PO 20 mg DAILY JEANETTE Administration Furosemide 20 mg 07/05/18 18:00 07/06/18 06:16 Lasix PO 20 mg 0600,1800 JEANETTE Administration Insulin Human Lispro 0 unit 07/01/18 16:30 07/06/18 08:56 Humalog SUB-Q Not Given ACHS [facility] Protocol Lactulose 20 gm 07/04/18 12:00 Cephulac PO Q6HR PRN CONSTIPATION Metoprolol Tartrate 25 mg 06/25/18 09:00 07/06/18 01:39 Lopressor PO 25 mg Q8H JEANETTE Administration Ondansetron HCl 4 mg 06/17/18 03:24 Zofran IV Q8H PRN Nausea And Vomiting Sertraline HCl 50 mg 06/24/18 10:00 07/05/18 11:00 Zoloft PO 50 mg DAILY JEANETTE Administration
[2018-07-06] MEDS: ZOLOFT PO SCH (09:57)
[2018-07-06] MEDS: ELIQUIS PO SCH ×2 (09:57→22:15)
[2018-07-06] MEDS: PEPCID PO SCH (09:57)
--- NOTE | 2018-07-06 13:52 | Progress Note ---
Assessment and Plan - Patient Problems (1) Acute on chronic systolic heart failure Current Visit: No Status: Acute Plan to address problem: Medical therapy for severe dilated cardiomyopathy and chronic systolic heart failure. Subjective Date of service: 07/06/18 Principal diagnosis: altered mental status, psychosis, chronic systolic heart failure, Interval history: Patient is comfortable, in no acute distress. No new cardiac complaints. Objective Vital Signs Temp Pulse Pulse Pulse Resp Resp Resp 07/06/18 10:11 97.6 F 94 H 18 07/06/18 08:58 07/06/18 07:57 82 84 16 16 07/06/18 05:00 98.4 F 88 19 07/06/18 01:39 80 07/05/18 23:00 97.5 F L 80 19 07/05/18 20:27 83 18 07/05/18 20:09 07/05/18 20:05 85 18 07/05/18 20:00 98.5 F 67 16 07/05/18 17:14 85 07/05/18 15:26 98.0 F BP BP Pulse Ox 07/06/18 10:11 107/66 100 07/06/18 08:58 100 07/06/18 07:57 07/06/18 05:00 124/62 100 07/06/18 01:39 143/73 07/05/18 23:00 143/73 100 07/05/18 20:27 07/05/18 20:09 100 07/05/18 20:05 07/05/18 20:00 124/73 97 07/05/18 17:14 111/64 07/05/18 15:26 125/71 - Physical Examination General: No Apparent Distress, Cachectic HEENT: Positive: PERRL Neck: Positive: trachea midline Cardiac: Positive: Reg Rate and Rhythm Lungs: Positive: Decreased Breath Sounds Neuro: Positive: Grossly Intact Abdomen: Positive: Unremarkable Skin: Positive: Clear Extremities: Absent: edema - Allied health notes Allied health notes reviewed: nursing
--- NOTE | 2018-07-06 15:40 | Progress Note ---
Subjective - Reason for Consult Consult date: 07/06/18 Reason for consult: Psychiatric Follow-up Evaluation - Chief Complaint Chief complaint: "Y'all messing with me" Patient is a 68 year old female that presented to the emergency room with altered mental status. The patient is known to me. Today the patient is uncooperative and irritated during the assessment . She states, " you are not sticking me anymore. A bunch of Negroes together will kill anything." Responses to questions are inappropriate/not logical. Paranoid delusions are noted. Patient is suspicious of others. Confusion noted. Patient is alert and oriented x 1. Patient is medication compliant. No side effects of medications are noted/reported. Mental Status Exam - Vital signs Last Vital Signs Temp 97.6 F 07/06/18 10:11 Pulse 86 07/06/18 14:29 Resp 16 07/06/18 14:29 BP 107/66 07/06/18 10:11 Pulse Ox 100 07/06/18 10:11 - Exam Narrative exam: Mental Status Exam Appearance: uncooperative Behavior: poor eye contact Speech: regular rate and loud tone Mood: irritated; labile; " I feel like a human being" Affect: flat Thought Process: disorganized Thought Content: no gestures of SI/HI's and AVH's ; + paranoid delusions Motor Activity: laying in the bed Cognition: A/O x 1, with some confusion Insight: poor Judgment: poor Assessment and Plan Impression: Today the patient is uncooperative and irritated during the assessment. Elevated LF's. Recommendation/Plan: 1. Gather more collateral information to help determine proper treatment and to R/O a Neuro Cog DO. 2. Continue home medication Zoloft 50 mg PO daily for depression. Attempt to reassess the patient in 24 hours. Recommend Delirium precautions below: 1. Frequently reorient patient and involve him/her in their care (simple explanations of procedures, tests, medications). 2. Lights on and shades open during daytime hours. 3. Write date and goals of care in a visible place. 4. Try to avoid unnecessary interruptions to sleep during nighttime hours. 5. Obtain glasses, hearing aids from home if patient uses these at baseline. 6. Avoid medications that may exacerbate delirium (especially narcotics, benzodiazepines, barbiturates, ambien, lunesta, and medications with excessive anticholinergic properties). 7. Continue 1:1 sitter for safety. Disposition: The patient pending SNF placement per the notes.. Will staff with Dr. Donna Rey.
--- NOTE | 2018-07-06 17:05 | Progress Note ---
Assessment and Plan /Acute Respiratory failure following Cardiac Arrest - ? PEA from hypoglycemia or Haldol administration- now off the ventilator and on nasal canula /s/p Cardiac arrest after Haldol: listed Haldol as an Allergy/Adverse drug. Severe NICM also contributed to the event I believe. /Severe NICM, ionotrope dependent : - Cardiology recommends Hospice, dobutamine now off by Cardiology /Acute on Chronic systolic CHF of EF 20-25%, - patient has been on hospice before, it appears she was discharged from hospice. 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 Antibiotics discontinued /Persistently elevated Lactic acidosis:-Likely secondary to hypoperfusion- improving /Hypokalemia: replace -DVT prophylaxis: Patient is on Eliquis Brief History Patient is 68 yo woman with a history of hypertension, CHF and Atrial fibrillation who was on hospice presented with altered mental status. She was climbing a fence, running wild; therefore, brought to ED. CT head was neg. MRI Brain unremarkable. Patient evaluated by Neuro and psychiatry. She was initially a 1013 but is was rescinded. It appears Neurology believes patient AMS is a psychotic disorder but Psychiatry has not really making a definitive diagnosis. During the hospital stay, She received Haldol to obtain CT head but had PEA cardiac arrest on 06/26/18, she received Epinephrine then developed pulseless Ventricular fibrillation and 1 shock via defibrillator was delivered with return of pulse. She was also found to have a very low blood glucose during the cardiac arrest and was treated with IV dextrose. She was intubated during the Code blue and sent to ICU. Cardiology consulted, she is s/p dobutamin drip for severe NICM, now extubated and transferred out off ICU. Plan to d/c SNF with hospice. Hospitalist Physical GEN: WDWN, NAD, Awake, Alert, confused HEENT: NCAT, EOMI, PERRL, OP Clear NECK: supple, no adenopathy, no thyromegaly, no JVD CVS/HEART: irregular, normal S1S2, pulses present bilaterally CHEST/LUNGS: CTA B, Symmetrical chest expansion, good air entry bilaterally GI/Abdomen: soft, NTND, good bowel sounds, no guarding or rebound /Bladder: no suprapubic tenderness, no CVA or paraspinal tenderness EXT/Skin: no c/c, +edema, no obvious rash MSK: FROM x 4 Neuro: CN 2-12 grossly intact, not following commands Psych: calm Subjective Date of service: 07/06/18 Principal diagnosis: altered mental status, psychosis, chronic systolic heart failure, Interval history: Patient seen and examined, unable to provide any history, per RN no acute issue overnight. Discussed with brother by phone and changed the code status to DNR Objective - Constitutional Vitals: Vital Signs - 12hr 07/06/18 07/06/18 07/06/18 07:57 08:58 10:11 Temperature 97.6 F Pulse Rate 94 H Pulse Rate [ 82 Anterior Bilateral] Pulse Rate [ 84 Throughout] Respiratory 18 Rate Respiratory 16 Rate [Anterior Bilateral] Respiratory 16 Rate [ Throughout] Blood Pressure 107/66 [Left] O2 Sat by Pulse 100 100 Oximetry 07/06/18 14:29 Temperature Pulse Rate Pulse Rate [ 86 Anterior Bilateral] Pulse Rate [ 84 Throughout] Respiratory Rate Respiratory 16 Rate [Anterior Bilateral] Respiratory 16 Rate [ Throughout] Blood Pressure [Left] O2 Sat by Pulse Oximetry - Labs CBC & Chem 7: 07/04/18 05:36 07/04/18 05:36 Labs: Abnormal lab results 07/05/18 07/06/18 07/06/18 Range/Units 21:15 11:50 13:32 POC Glucose 150 H 67 L 146 H (70-105) 07/06/18 Range/Units 16:27 POC Glucose 125 H (70-105)
[2018-07-06] MEDS: LANOXIN PO SCH (17:24)
--- NOTE | 2018-07-06 18:44 | Progress Note ---
Assessment and Plan Patient weak, Sleeping at this time. On 2 litres o2. O2 saturation 100%.No acute respiratory distress.Patient afebrile. No leukocytosis. - Patient Problems (1) Cardiac arrest Current Visit: Yes Status: Acute Plan to address problem: Patient successfully resuciated. Patient alert, awake and resting on 2 litres O2. (2) Acute respiratory failure with hypoxia Current Visit: Yes Status: Acute Plan to address problem: Patient resting on 2 litres O2. O2 saturation 100%. (3) Acute kidney failure with tubular necrosis Current Visit: Yes Status: Acute Plan to address problem: Management as per nephrology. (4) Altered mental status Current Visit: Yes Status: Acute Plan to address problem: Improving. Still confusing at times. (5) Paroxysmal atrial fibrillation Current Visit: Yes Status: Acute Plan to address problem: Patient is on Apixaban. Management as per cardiology. (6) Acute on chronic systolic heart failure Current Visit: No Status: Acute Plan to address problem: Management as per cardiology. (7) HTN (hypertension) Current Visit: No Status: Chronic Plan to address problem: Management as per primary care. (8) Left lower lobe pulmonary infiltrate Current Visit: Yes Status: Acute Plan to address problem: Patient afebrile. No leukocytosis. Repeat chest xray PA and Lateral reported volume Overload. Subjective Date of service: 07/06/18 Principal diagnosis: altered mental status, psychosis, chronic systolic heart failure, Interval history: Patient weak, Sleeping at this time. On 2 litres o2. O2 saturation 100%.No acute respiratory distress.Patient afebrile. No leukocytosis. Objective Vital Signs - 12hr 07/06/18 07/06/18 07/06/18 07:57 08:58 10:11 Temperature 97.6 F Pulse Rate 94 H Pulse Rate [ 82 Anterior Bilateral] Pulse Rate [ 84 Throughout] Respiratory 18 Rate Respiratory 16 Rate [Anterior Bilateral] Respiratory 16 Rate [ Throughout] Blood Pressure 107/66 [Left] O2 Sat by Pulse 100 100 Oximetry 07/06/18 07/06/18 14:29 17:24 Temperature Pulse Rate 74 Pulse Rate [ 86 Anterior Bilateral] Pulse Rate [ 84 Throughout] Respiratory Rate Respiratory 16 Rate [Anterior Bilateral] Respiratory 16 Rate [ Throughout] Blood Pressure [Left] O2 Sat by Pulse Oximetry Constitutional: no acute distress, asleep, other (Confusing at times.) Eyes: non-icteric, other (Pupils 4mm, sluggichly reacting to light) ENT: oropharynx dry, other (extubated) Neck: supple, no lymphadenopathy, no JVD, other (no thyromegaly) Effort: normal Ascultation: Bilateral: diminished breath sounds, rales Percussion: Bilateral: not dull Cardiovascular: irregular rhythm, other (S1,S2,) Gastrointestinal: normoactive bowel sounds, soft, non-tender, non-distended Integumentary: rash (exematoid rash to upper chest) Extremities: no cyanosis, no edema, pulses normal, no ischemia or petechiae Neurologic: normal mental status, non-focal exam (grossly), pupils equal and round, CN II-XII normal Psychiatric: depressed CBC and BMP: 07/04/18 05:36 07/04/18 05:36 ABG, PT/INR, D-dimer: ABG POC ABG pH 7.552 (7.35-7.45) H 06/28/18 10:53 POC ABG pCO2 40.8 (35-45) 06/28/18 10:53 POC ABG pO2 83 (80-105) 06/28/18 10:53 POC ABG HCO3 35.9 (22-26 mml/L) 06/28/18 10:53 POC ABG Total CO2 37 (23-27mmol/L) 06/28/18 10:53 POC ABG O2 Sat 97 06/28/18 10:53 Abnormal lab findings: Abnormal Labs 06/16/18 06/16/18 06/16/18 21:05 21:43 21:43 WBC RBC Hgb Hct MCV MCH RDW Plt Count Lymph % (Auto) Drew % (Auto) Lymph # Drew # Seg Neutrophils % Seg Neuts % (Manual) Lymphocytes % (Manual) Seg Neutrophils # Seg Neutrophils # Man Lymphocytes # (Manual) Monocytes # (Manual) POC ABG pH POC ABG pCO2 POC ABG pO2 Sodium 129 L Potassium Chloride 95.3 L Carbon Dioxide 14 L BUN 23 H Creatinine Glucose 146 H POC Glucose < 40 L Lactic Acid Uric Acid Calcium Magnesium Total Bilirubin Direct Bilirubin AST ALT Alkaline Phosphatase Ammonia C-Reactive Protein Total Protein Albumin Vitamin B1 Vitamin B12 25-OH Vitamin D Total Free T4 T3 (GILSON) Urine Creatinine Urine Total Protein Acetaminophen < 5.0 L 06/16/18 06/16/18 06/16/18 21:43 21:43 22:27 WBC RBC 5.70 H Hgb Hct 44.6 H MCV 78 L MCH 25 L RDW 18.7 H Plt Count Lymph % (Auto) Drew % (Auto) Lymph # Drew # Seg Neutrophils % 78.8 H Seg Neuts % (Manual) Lymphocytes % (Manual) Seg Neutrophils # Seg Neutrophils # Man Lymphocytes # (Manual) Monocytes # (Manual) POC ABG pH POC ABG pCO2 POC ABG pO2 Sodium Potassium Chloride Carbon Dioxide BUN Creatinine Glucose POC Glucose 121 H Lactic Acid Uric Acid Calcium Magnesium Total Bilirubin Direct Bilirubin AST ALT Alkaline Phosphatase Ammonia C-Reactive Protein Total Protein Albumin Vitamin B1 Vitamin B12 25-OH Vitamin D Total Free T4 1.87 H T3 (GILSON) Urine Creatinine Urine Total Protein Acetaminophen 06/16/18 06/16/18 06/17/18 22:33 23:43 03:56 WBC RBC Hgb Hct MCV MCH RDW Plt Count Lymph % (Auto) Drew % (Auto) Lymph # Drew # Seg Neutrophils % Seg Neuts % (Manual) Lymphocytes % (Manual) Seg Neutrophils # Seg Neutrophils # Man Lymphocytes # (Manual) Monocytes # (Manual) POC ABG pH POC ABG pCO2 POC ABG pO2 Sodium Potassium Chloride Carbon Dioxide BUN Creatinine Glucose POC Glucose Lactic Acid 4.40 H* 4.30 H* 3.10 H* Uric Acid Calcium Magnesium Total Bilirubin Direct Bilirubin AST ALT Alkaline Phosphatase Ammonia C-Reactive Protein Total Protein Albumin Vitamin B1 Vitamin B12 25-OH Vitamin D Total Free T4 T3 (GILSON) Urine Creatinine Urine Total Protein Acetaminophen 06/17/18 06/17/18 06/17/18 08:35 08:40 11:00 WBC RBC Hgb Hct MCV MCH RDW Plt Count Lymph % (Auto) Drew % (Auto) Lymph # Drew # Seg Neutrophils % Seg Neuts % (Manual) Lymphocytes % (Manual) Seg Neutrophils # Seg Neutrophils # Man Lymphocytes # (Manual) Monocytes # (Manual) POC ABG pH POC ABG pCO2 POC ABG pO2 Sodium Potassium Chloride Carbon Dioxide BUN Creatinine Glucose POC Glucose 56 L Lactic Acid 2.70 H* 3.40 H* Uric Acid Calcium Magnesium Total Bilirubin Direct Bilirubin AST ALT Alkaline Phosphatase Ammonia C-Reactive Protein Total Protein Albumin Vitamin B1 Vitamin B12 25-OH Vitamin D Total Free T4 T3 (GILSON) Urine Creatinine Urine Total Protein Acetaminophen 06/17/18 06/17/1806/17/19 11:00 11:00 11:00 WBC 11.9 H RBC 5.25 H Hgb Hct MCV MCH 25 L RDW 18.6 H Plt Count Lymph % (Auto) Drew % (Auto) Lymph # Drew # Seg Neutrophils % Seg Neuts % (Manual) Lymphocytes % (Manual) Seg Neutrophils # Seg Neutrophils # Man Lymphocytes # (Manual) Monocytes # (Manual) POC ABG pH POC ABG pCO2 POC ABG pO2 Sodium 128 L Potassium Chloride 95.6 L Carbon Dioxide 15 L BUN 22 H Creatinine Glucose 110 H POC Glucose Lactic Acid Uric Acid Calcium 8.3 L Magnesium Total Bilirubin Direct Bilirubin 1.6 H AST 66 H ALT Alkaline Phosphatase 178 H Ammonia C-Reactive Protein Total Protein 4.7 L Albumin 2.4 L Vitamin B1 Vitamin B12 25-OH Vitamin D Total Free T4 T3 (GILSON) Urine Creatinine Urine Total Protein Acetaminophen 06/17/18 06/17/18 06/17/18 15:08 15:08 23:00 WBC RBC Hgb Hct MCV MCH RDW Plt Count Lymph % (Auto) Drew % (Auto) Lymph # Drew # Seg Neutrophils % Seg Neuts % (Manual) Lymphocytes % (Manual) Seg Neutrophils # Seg Neutrophils # Man Lymphocytes # (Manual) Monocytes # (Manual) POC ABG pH POC ABG pCO2 POC ABG pO2 Sodium Potassium Chloride Carbon Dioxide BUN Creatinine Glucose POC Glucose Lactic Acid 4.00 H* Uric Acid Calcium Magnesium Total Bilirubin Direct Bilirubin AST ALT Alkaline Phosphatase Ammonia 10.0 L C-Reactive Protein Total Protein Albumin Vitamin B1 Vitamin B12 25-OH Vitamin D Total Free T4 1.53 H T3 (GILSON) Urine Creatinine Urine Total Protein Acetaminophen 06/18/18 06/18/18 06/18/18 08:59 08:59 12:49 WBC RBC 5.29 H Hgb Hct MCV 78 L MCH 25 L RDW 18.4 H Plt Count Lymph % (Auto) Drew % (Auto) Lymph # Drew # Seg Neutrophils % Seg Neuts % (Manual) Lymphocytes % (Manual) Seg Neutrophils # Seg Neutrophils # Man Lymphocytes # (Manual) Monocytes # (Manual) POC ABG pH POC ABG pCO2 POC ABG pO2 Sodium 128 L Potassium 5.9 H D Chloride 96.1 L Carbon Dioxide 20 L BUN 22 H Creatinine Glucose POC Glucose 60 L Lactic Acid Uric Acid Calcium Magnesium Total Bilirubin Direct Bilirubin AST ALT Alkaline Phosphatase Ammonia C-Reactive Protein Total Protein Albumin Vitamin B1 Vitamin B12 25-OH Vitamin D Total Free T4 T3 (GILSON) Urine Creatinine Urine Total Protein Acetaminophen 06/18/18 06/19/18 06/19/18 21:28 12:14 13:23 WBC RBC Hgb Hct MCV MCH RDW Plt Count Lymph % (Auto) Drew % (Auto) Lymph # Drew # Seg Neutrophils % Seg Neuts % (Manual) Lymphocytes % (Manual) Seg Neutrophils # Seg Neutrophils # Man Lymphocytes # (Manual) Monocytes # (Manual) POC ABG pH POC ABG pCO2 POC ABG pO2 Sodium 122 L Potassium 5.4 H Chloride 95.0 L Carbon Dioxide 13 L D BUN 21 H Creatinine Glucose 119 H POC Glucose 114 H Lactic Acid Uric Acid Calcium 8.3 L Magnesium Total Bilirubin Direct Bilirubin AST ALT Alkaline Phosphatase Ammonia C-Reactive Protein Total Protein Albumin Vitamin B1 Vitamin B12 25-OH Vitamin D Total Free T4 T3 (GILSON) Urine Creatinine Urine Total Protein Acetaminophen 06/19/18 06/19/18 06/19/18 14:47 16:38 22:42 WBC RBC 5.51 H Hgb Hct 45.3 H MCV MCH 25 L RDW 18.6 H Plt Count Lymph % (Auto) Drew % (Auto) Lymph # Drew # Seg Neutrophils % Seg Neuts % (Manual) Lymphocytes % (Manual) Seg Neutrophils # Seg Neutrophils # Man Lymphocytes # (Manual) Monocytes # (Manual) POC ABG pH POC ABG pCO2 POC ABG pO2 Sodium Potassium Chloride Carbon Dioxide BUN Creatinine Glucose POC Glucose 108 H 49 L Lactic Acid Uric Acid Calcium Magnesium Total Bilirubin Direct Bilirubin AST ALT Alkaline Phosphatase Ammonia C-Reactive Protein Total Protein Albumin Vitamin B1 Vitamin B12 25-OH Vitamin D Total Free T4 T3 (GILSON) Urine Creatinine Urine Total Protein Acetaminophen 06/19/18 06/20/18 06/20/18 Unknown 07:31 16:51 WBC RBC Hgb Hct MCV MCH RDW Plt Count Lymph % (Auto) Drew % (Auto) Lymph # Drew # Seg Neutrophils % Seg Neuts % (Manual) Lymphocytes % (Manual) Seg Neutrophils # Seg Neutrophils # Man Lymphocytes # (Manual) Monocytes # (Manual) POC ABG pH POC ABG pCO2 POC ABG pO2 Sodium 132 L D Potassium Chloride 94.3 L Carbon Dioxide BUN 20 H Creatinine Glucose POC Glucose Lactic Acid Uric Acid 8.6 H Calcium Magnesium 1.30 L Total Bilirubin Direct Bilirubin AST ALT Alkaline Phosphatase Ammonia C-Reactive Protein Total Protein Albumin Vitamin B1 Vitamin B12 25-OH Vitamin D Total Free T4 T3 (GILSON) 58 L Urine Creatinine 61.7 H Urine Total Protein 32 H Acetaminophen 06/20/18 06/20/18 06/21/18 20:53 20:53 16:27 WBC RBC Hgb Hct MCV MCH RDW Plt Count Lymph % (Auto) Drew % (Auto) Lymph # Drew # Seg Neutrophils % Seg Neuts % (Manual) Lymphocytes % (Manual) Seg Neutrophils # Seg Neutrophils # Man Lymphocytes # (Manual) Monocytes # (Manual) POC ABG pH POC ABG pCO2 POC ABG pO2 Sodium Potassium Chloride Carbon Dioxide BUN Creatinine Glucose POC Glucose Lactic Acid Uric Acid 9.2 H Calcium Magnesium Total Bilirubin Direct Bilirubin AST ALT Alkaline Phosphatase Ammonia C-Reactive Protein Total Protein Albumin Vitamin B1 Vitamin B12 1598 H 25-OH Vitamin D Total 10 L Free T4 T3 (GILSON) Urine Creatinine Urine Total Protein Acetaminophen 06/21/18 06/21/18 06/21/18 16:27 16:27 16:27 WBC RBC 5.26 H Hgb Hct MCV 77 L MCH 26 L RDW 17.7 H Plt Count Lymph % (Auto) Drew % (Auto) Lymph # Drew # Seg Neutrophils % Seg Neuts % (Manual) Lymphocytes % (Manual) Seg Neutrophils # Seg Neutrophils # Man Lymphocytes # (Manual) Monocytes # (Manual) POC ABG pH POC ABG pCO2 POC ABG pO2 Sodium 130 L Potassium Chloride 95.6 L Carbon Dioxide BUN 24 H Creatinine Glucose POC Glucose Lactic Acid Uric Acid Calcium Magnesium Total Bilirubin Direct Bilirubin AST ALT Alkaline Phosphatase Ammonia C-Reactive Protein Total Protein Albumin Vitamin B1 <6 L Vitamin B12 25-OH Vitamin D Total Free T4 T3 (GILSON) Urine Creatinine Urine Total Protein Acetaminophen 06/21/18 06/22/18 06/23/18 21:44 21:42 14:54 WBC RBC 5.07 H Hgb Hct MCV 78 L MCH 25 L RDW 18.5 H Plt Count Lymph % (Auto) Drew % (Auto) 12.3 H Lymph # 1.0 L Drew # Seg Neutrophils % Seg Neuts % (Manual) Lymphocytes % (Manual) Seg Neutrophils # Seg Neutrophils # Man Lymphocytes # (Manual) Monocytes # (Manual) POC ABG pH POC ABG pCO2 POC ABG pO2 Sodium Potassium Chloride Carbon Dioxide BUN Creatinine Glucose POC Glucose 126 H 114 H Lactic Acid Uric Acid Calcium Magnesium Total Bilirubin Direct Bilirubin AST ALT Alkaline Phosphatase Ammonia C-Reactive Protein Total Protein Albumin Vitamin B1 Vitamin B12 25-OH Vitamin D Total Free T4 T3 (GILSON) Urine Creatinine Urine Total Protein Acetaminophen 06/23/18 06/25/18 06/25/18 14:54 00:00 00:00 WBC 3.6 L RBC 5.31 H Hgb Hct MCV 77 L MCH 26 L RDW 19.0 H Plt Count Lymph % (Auto) Drew % (Auto) 10.2 H Lymph # Drew # Seg Neutrophils % Seg Neuts % (Manual) Lymphocytes % (Manual) Seg Neutrophils # Seg Neutrophils # Man Lymphocytes # (Manual) Monocytes # (Manual) POC ABG pH POC ABG pCO2 POC ABG pO2 Sodium 132 L 131 L Potassium 3.5 L Chloride 91.5 L 93.5 L Carbon Dioxide BUN 19 H 21 H Creatinine Glucose POC Glucose Lactic Acid Uric Acid Calcium 8.1 L Magnesium Total Bilirubin 2.80 H 2.70 H Direct Bilirubin AST 52 H 81 H ALT Alkaline Phosphatase 231 H 243 H Ammonia C-Reactive Protein Total Protein 5.5 L 5.5 L Albumin 2.8 L 2.7 L Vitamin B1 Vitamin B12 25-OH Vitamin D Total Free T4 T3 (GILSON) Urine Creatinine Urine Total Protein Acetaminophen 06/25/18 06/25/18 06/25/18 16:02 16:02 16:18 WBC 3.9 L RBC 5.78 H Hgb 14.6 H Hct 45.4 H MCV MCH 25 L RDW 19.2 H Plt Count Lymph % (Auto) Drew % (Auto) Lymph # Drew # Seg Neutrophils % Seg Neuts % (Manual) Lymphocytes % (Manual) Seg Neutrophils # Seg Neutrophils # Man Lymphocytes # (Manual) 1.1 L Monocytes # (Manual) POC ABG pH POC ABG pCO2 POC ABG pO2 Sodium 131 L Potassium Chloride 90.0 L Carbon Dioxide BUN 25 H Creatinine 1.4 H Glucose POC Glucose Lactic Acid 4.00 H* Uric Acid Calcium Magnesium Total Bilirubin 3.10 H Direct Bilirubin AST 68 H ALT Alkaline Phosphatase 296 H Ammonia C-Reactive Protein Total Protein 6.1 L Albumin 3.3 L Vitamin B1 Vitamin B12 25-OH Vitamin D Total Free T4 T3 (GILSON) Urine Creatinine Urine Total Protein Acetaminophen 06/25/18 06/26/18 06/26/18 21:06 11:33 11:37 WBC RBC Hgb Hct MCV MCH 26 L RDW 19.2 H Plt Count 139 L Lymph % (Auto) Drew % (Auto) Lymph # Drew # Seg Neutrophils % Seg Neuts % (Manual) 85.0 H Lymphocytes % (Manual) 6.0 L Seg Neutrophils # Seg Neutrophils # Man 8.0 H Lymphocytes # (Manual) 0.6 L Monocytes # (Manual) POC ABG pH POC ABG pCO2 POC ABG pO2 Sodium Potassium Chloride Carbon Dioxide BUN Creatinine Glucose POC Glucose < 40 L Lactic Acid 6.40 H* Uric Acid Calcium Magnesium Total Bilirubin Direct Bilirubin AST ALT Alkaline Phosphatase Ammonia C-Reactive Protein Total Protein Albumin Vitamin B1 Vitamin B12 25-OH Vitamin D Total Free T4 T3 (GILSON) Urine Creatinine Urine Total Protein Acetaminophen 06/26/18 06/26/18 06/26/18 11:37 11:51 11:59 WBC RBC Hgb Hct MCV MCH RDW Plt Count Lymph % (Auto) Drew % (Auto) Lymph # Drew # Seg Neutrophils % Seg Neuts % (Manual) Lymphocytes % (Manual) Seg Neutrophils # Seg Neutrophils # Man Lymphocytes # (Manual) Monocytes # (Manual) POC ABG pH 7.029 L POC ABG pCO2 POC ABG pO2 73 L Sodium 129 L Potassium Chloride 87.0 L Carbon Dioxide 11 L D BUN 31 H Creatinine 1.9 H Glucose 206 H POC Glucose 253 H Lactic Acid Uric Acid Calcium 7.9 L Magnesium Total Bilirubin 2.90 H Direct Bilirubin AST 98 H ALT Alkaline Phosphatase 196 H Ammonia C-Reactive Protein Total Protein 4.3 L D Albumin 2.2 L Vitamin B1 Vitamin B12 25-OH Vitamin D Total Free T4 T3 (GILSON) Urine Creatinine Urine Total Protein Acetaminophen 06/26/18 06/26/18 06/26/18 14:54 15:08 15:10 WBC 14.2 H RBC 5.66 H Hgb 14.5 H Hct 45.6 H D MCV MCH 26 L RDW 19.4 H Plt Count Lymph % (Auto) Drew % (Auto) Lymph # Drew # Seg Neutrophils % Seg Neuts % (Manual) 88.0 H Lymphocytes % (Manual) 5.0 L Seg Neutrophils # Seg Neutrophils # Man 12.5 H Lymphocytes # (Manual) 0.7 L Monocytes # (Manual) 0.9 H POC ABG pH POC ABG pCO2 POC ABG pO2 Sodium Potassium Chloride Carbon Dioxide BUN Creatinine Glucose POC Glucose 172 H Lactic Acid 11.90 H* Uric Acid Calcium Magnesium Total Bilirubin Direct Bilirubin AST ALT Alkaline Phosphatase Ammonia C-Reactive Protein Total Protein Albumin Vitamin B1 Vitamin B12 25-OH Vitamin D Total Free T4 T3 (GILSON) Urine Creatinine Urine Total Protein Acetaminophen 06/26/18 06/26/18 06/26/18 16:01 18:47 20:55 WBC RBC Hgb Hct MCV MCH RDW Plt Count Lymph % (Auto) Drew % (Auto) Lymph # Drew # Seg Neutrophils % Seg Neuts % (Manual) Lymphocytes % (Manual) Seg Neutrophils # Seg Neutrophils # Man Lymphocytes # (Manual) Monocytes # (Manual) POC ABG pH POC ABG pCO2 34.0 L POC ABG pO2 Sodium Potassium Chloride Carbon Dioxide BUN Creatinine Glucose POC Glucose 183 H 131 H Lactic Acid Uric Acid Calcium Magnesium Total Bilirubin Direct Bilirubin AST ALT Alkaline Phosphatase Ammonia C-Reactive Protein Total Protein Albumin Vitamin B1 Vitamin B12 25-OH Vitamin D Total Free T4 T3 (GILSON) Urine Creatinine Urine Total Protein Acetaminophen 06/26/18 06/27/18 06/27/18 21:55 09:29 09:29 WBC RBC Hgb Hct MCV MCH RDW Plt Count Lymph % (Auto) Drew % (Auto) Lymph # Drew # Seg Neutrophils % Seg Neuts % (Manual) Lymphocytes % (Manual) Seg Neutrophils # Seg Neutrophils # Man Lymphocytes # (Manual) Monocytes # (Manual) POC ABG pH POC ABG pCO2 POC ABG pO2 Sodium 135 L 135 L Potassium 3.5 L Chloride 91.7 L 91.2 L Carbon Dioxide BUN 35 H 37 H Creatinine 2.3 H 2.1 H Glucose 147 H 104 H POC Glucose Lactic Acid Uric Acid Calcium 8.3 L 8.1 L Magnesium Total Bilirubin 3.50 H Direct Bilirubin AST 218 H ALT 57 H Alkaline Phosphatase 197 H Ammonia C-Reactive Protein Total Protein 5.0 L Albumin 2.3 L Vitamin B1 Vitamin B12 25-OH Vitamin D Total Free T4 1.78 H T3 (GILSON) Urine Creatinine Urine Total Protein Acetaminophen 06/27/18 06/27/18 06/27/18 09:29 09:29 10:00 WBC 16.3 H RBC 5.44 H Hgb Hct MCV 76 L MCH 25 L RDW 18.3 H Plt Count Lymph % (Auto) Drew % (Auto) Lymph # Drew # Seg Neutrophils % Seg Neuts % (Manual) 91.0 H Lymphocytes % (Manual) 3.0 L Seg Neutrophils # Seg Neutrophils # Man 14.8 H Lymphocytes # (Manual) 0.5 L Monocytes # (Manual) 1.0 H POC ABG pH POC ABG pCO2 POC ABG pO2 Sodium Potassium Chloride Carbon Dioxide BUN Creatinine Glucose POC Glucose 106 H Lactic Acid 4.00 H* Uric Acid Calcium Magnesium Total Bilirubin Direct Bilirubin AST ALT Alkaline Phosphatase Ammonia C-Reactive Protein Total Protein Albumin Vitamin B1 Vitamin B12 25-OH Vitamin D Total Free T4 T3 (GILSON) Urine Creatinine Urine Total Protein Acetaminophen 06/27/18 06/27/18 06/27/18 11:51 12:50 13:39 WBC RBC Hgb Hct MCV MCH RDW Plt Count Lymph % (Auto) Drew % (Auto) Lymph # Drew # Seg Neutrophils % Seg Neuts % (Manual) Lymphocytes % (Manual) Seg Neutrophils # Seg Neutrophils # Man Lymphocytes # (Manual) Monocytes # (Manual) POC ABG pH 7.584 H POC ABG pCO2 32.8 L POC ABG pO2 109 H Sodium Potassium Chloride Carbon Dioxide BUN Creatinine Glucose POC Glucose 112 H Lactic Acid 3.20 H* Uric Acid Calcium Magnesium Total Bilirubin Direct Bilirubin AST ALT Alkaline Phosphatase Ammonia C-Reactive Protein Total Protein Albumin Vitamin B1 Vitamin B12 25-OH Vitamin D Total Free T4 T3 (GILSON) Urine Creatinine Urine Total Protein Acetaminophen 06/27/18 06/27/18 06/27/18 19:31 21:50 23:10 WBC RBC Hgb Hct MCV MCH RDW Plt Count Lymph % (Auto) Drew % (Auto) Lymph # Drew # Seg Neutrophils % Seg Neuts % (Manual) Lymphocytes % (Manual) Seg Neutrophils # Seg Neutrophils # Man Lymphocytes # (Manual) Monocytes # (Manual) POC ABG pH POC ABG pCO2 POC ABG pO2 Sodium Potassium Chloride Carbon Dioxide BUN Creatinine Glucose POC Glucose Lactic Acid 2.40 H* 2.30 H* 2.30 H* Uric Acid Calcium Magnesium Total Bilirubin Direct Bilirubin AST ALT Alkaline Phosphatase Ammonia C-Reactive Protein Total Protein Albumin Vitamin B1 Vitamin B12 25-OH Vitamin D Total Free T4 T3 (GILSON) Urine Creatinine Urine Total Protein Acetaminophen 06/28/18 06/28/18 06/28/18 02:35 05:00 05:00 WBC RBC Hgb Hct MCV MCH RDW Plt Count Lymph % (Auto) Drew % (Auto) Lymph # Drew # Seg Neutrophils % Seg Neuts % (Manual) Lymphocytes % (Manual) Seg Neutrophils # Seg Neutrophils # Man Lymphocytes # (Manual) Monocytes # (Manual) POC ABG pH POC ABG pCO2 POC ABG pO2 Sodium 134 L Potassium 2.6 L* D Chloride 92.3 L Carbon Dioxide 32 H BUN 34 H Creatinine 1.8 H Glucose 127 H POC Glucose Lactic Acid 2.20 H* 2.30 H* Uric Acid Calcium 7.5 L Magnesium Total Bilirubin 3.50 H Direct Bilirubin AST 226 H ALT 60 H Alkaline Phosphatase 172 H Ammonia C-Reactive Protein Total Protein 4.2 L Albumin 2.0 L Vitamin B1 Vitamin B12 25-OH Vitamin D Total Free T4 T3 (GILSON) Urine Creatinine Urine Total Protein Acetaminophen 06/28/18 06/28/18 06/28/18 05:00 08:30 08:30 WBC 15.7 H RBC Hgb Hct MCV 77 L MCH 25 L RDW 18.5 H Plt Count 112 L Lymph % (Auto) 6.0 L Drew % (Auto) 10.0 H Lymph # 0.9 L Drew # 1.6 H Seg Neutrophils % 83.4 H Seg Neuts % (Manual) Lymphocytes % (Manual) Seg Neutrophils # 13.1 H Seg Neutrophils # Man Lymphocytes # (Manual) Monocytes # (Manual) POC ABG pH POC ABG pCO2 POC ABG pO2 Sodium Potassium Chloride Carbon Dioxide BUN Creatinine Glucose POC Glucose Lactic Acid 2.40 H* Uric Acid Calcium Magnesium Total Bilirubin Direct Bilirubin AST ALT Alkaline Phosphatase Ammonia C-Reactive Protein 4.80 H Total Protein Albumin Vitamin B1 Vitamin B12 25-OH Vitamin D Total Free T4 T3 (GILSON) Urine Creatinine Urine Total Protein Acetaminophen 06/28/18 06/28/18 06/28/18 10:53 11:23 18:35 WBC RBC Hgb Hct MCV MCH RDW Plt Count Lymph % (Auto) Drew % (Auto) Lymph # Drew # Seg Neutrophils % Seg Neuts % (Manual) Lymphocytes % (Manual) Seg Neutrophils # Seg Neutrophils # Man Lymphocytes # (Manual) Monocytes # (Manual) POC ABG pH 7.552 H POC ABG pCO2 POC ABG pO2 Sodium Potassium 3.1 L Chloride Carbon Dioxide BUN Creatinine Glucose POC Glucose 122 H Lactic Acid Uric Acid Calcium Magnesium Total Bilirubin Direct Bilirubin AST ALT Alkaline Phosphatase Ammonia C-Reactive Protein Total Protein Albumin Vitamin B1 Vitamin B12 25-OH Vitamin D Total Free T4 T3 (GILSON) Urine Creatinine Urine Total Protein Acetaminophen 06/29/18 06/29/18 06/29/18 06:40 06:40 19:44 WBC 14.6 H RBC Hgb Hct MCV 77 L MCH 25 L RDW 19.3 H Plt Count 88 L Lymph % (Auto) Drew % (Auto) Lymph # Drew # Seg Neutrophils % Seg Neuts % (Manual) Lymphocytes % (Manual) Seg Neutrophils # Seg Neutrophils # Man Lymphocytes # (Manual) Monocytes # (Manual) POC ABG pH POC ABG pCO2 POC ABG pO2 Sodium Potassium 2.7 L* Chloride 95.3 L Carbon Dioxide 32 H BUN 25 H Creatinine Glucose 145 H POC Glucose 59 L Lactic Acid Uric Acid Calcium 7.9 L Magnesium Total Bilirubin 3.60 H Direct Bilirubin AST 213 H ALT Alkaline Phosphatase 176 H Ammonia C-Reactive Protein Total Protein 4.8 L Albumin 2.2 L Vitamin B1 Vitamin B12 25-OH Vitamin D Total Free T4 T3 (GILSON) Urine Creatinine Urine Total Protein Acetaminophen 06/29/18 06/30/18 06/30/18 20:43 02:37 04:45 WBC RBC Hgb Hct MCV MCH RDW Plt Count Lymph % (Auto) Drew % (Auto) Lymph # Drew # Seg Neutrophils % Seg Neuts % (Manual) Lymphocytes % (Manual) Seg Neutrophils # Seg Neutrophils # Man Lymphocytes # (Manual) Monocytes # (Manual) POC ABG pH POC ABG pCO2 POC ABG pO2 Sodium Potassium 3.1 L 2.8 L* Chloride Carbon Dioxide 31 H BUN 18 H Creatinine Glucose POC Glucose 59 L Lactic Acid Uric Acid Calcium 8.0 L Magnesium Total Bilirubin 3.70 H Direct Bilirubin AST 216 H ALT 63 H Alkaline Phosphatase 163 H Ammonia C-Reactive Protein Total Protein 4.5 L Albumin 2.1 L Vitamin B1 Vitamin B12 25-OH Vitamin D Total Free T4 T3 (GILSON) Urine Creatinine Urine Total Protein Acetaminophen 06/30/18 06/30/18 07/01/18 04:45 06:24 04:39 WBC 12.1 H RBC Hgb Hct MCV 78 L 77 L MCH 25 L 25 L RDW 19.0 H 19.3 H Plt Count 91 L 77 L Lymph % (Auto) Drew % (Auto) Lymph # Drew # Seg Neutrophils % Seg Neuts % (Manual) Lymphocytes % (Manual) Seg Neutrophils # Seg Neutrophils # Man Lymphocytes # (Manual) Monocytes # (Manual) POC ABG pH POC ABG pCO2 POC ABG pO2 Sodium Potassium Chloride Carbon Dioxide BUN Creatinine Glucose POC Glucose 63 L Lactic Acid Uric Acid Calcium Magnesium Total Bilirubin Direct Bilirubin AST ALT Alkaline Phosphatase Ammonia C-Reactive Protein Total Protein Albumin Vitamin B1 Vitamin B12 25-OH Vitamin D Total Free T4 T3 (GILSON) Urine Creatinine Urine Total Protein Acetaminophen 07/01/18 07/01/18 07/02/18 04:39 11:12 05:23 WBC RBC Hgb Hct MCV 77 L MCH 25 L RDW 19.2 H Plt Count 78 L Lymph % (Auto) Drew % (Auto) Lymph # Drew # Seg Neutrophils % Seg Neuts % (Manual) Lymphocytes % (Manual) Seg Neutrophils # Seg Neutrophils # Man Lymphocytes # (Manual) Monocytes # (Manual) POC ABG pH POC ABG pCO2 POC ABG pO2 Sodium Potassium 3.5 L D Chloride Carbon Dioxide BUN Creatinine Glucose 109 H POC Glucose 206 H Lactic Acid Uric Acid Calcium 8.1 L Magnesium Total Bilirubin 3.90 H Direct Bilirubin AST 163 H ALT 60 H Alkaline Phosphatase 166 H Ammonia C-Reactive Protein Total Protein 4.5 L Albumin 2.0 L Vitamin B1 Vitamin B12 25-OH Vitamin D Total Free T4 T3 (GILSON) Urine Creatinine Urine Total Protein Acetaminophen 07/02/18 07/02/18 07/03/18 05:23 12:18 08:14 WBC RBC Hgb Hct MCV 76 L MCH 25 L RDW 19.0 H Plt Count 84 L Lymph % (Auto) Drew % (Auto) Lymph # Drew # Seg Neutrophils % Seg Neuts % (Manual) Lymphocytes % (Manual) Seg Neutrophils # Seg Neutrophils # Man Lymphocytes # (Manual) Monocytes # (Manual) POC ABG pH POC ABG pCO2 POC ABG pO2 Sodium 135 L Potassium 3.4 L Chloride Carbon Dioxide BUN Creatinine 0.6 L Glucose POC Glucose 144 H Lactic Acid Uric Acid Calcium 8.3 L Magnesium Total Bilirubin Direct Bilirubin AST ALT Alkaline Phosphatase Ammonia C-Reactive Protein Total Protein Albumin Vitamin B1 Vitamin B12 25-OH Vitamin D Total Free T4 T3 (GILSON) Urine Creatinine Urine Total Protein Acetaminophen 07/03/18 07/03/18 07/04/18 08:14 16:33 05:36 WBC RBC Hgb Hct MCV 77 L MCH 25 L RDW 18.5 H Plt Count 103 L Lymph % (Auto) Drew % (Auto) Lymph # Drew # Seg Neutrophils % Seg Neuts % (Manual) Lymphocytes % (Manual) Seg Neutrophils # Seg Neutrophils # Man Lymphocytes # (Manual) Monocytes # (Manual) POC ABG pH POC ABG pCO2 POC ABG pO2 Sodium 135 L Potassium Chloride 97.7 L Carbon Dioxide BUN Creatinine 0.5 L Glucose POC Glucose 69 L Lactic Acid Uric Acid Calcium 8.2 L Magnesium 1.50 L Total Bilirubin Direct Bilirubin AST ALT Alkaline Phosphatase Ammonia C-Reactive Protein Total Protein Albumin Vitamin B1 Vitamin B12 25-OH Vitamin D Total Free T4 T3 (GILSON) Urine Creatinine Urine Total Protein Acetaminophen 07/04/18 07/04/18 07/04/18 05:36 08:54 11:47 WBC RBC Hgb Hct MCV MCH RDW Plt Count Lymph % (Auto) Drew % (Auto) Lymph # Drew # Seg Neutrophils % Seg Neuts % (Manual) Lymphocytes % (Manual) Seg Neutrophils # Seg Neutrophils # Man Lymphocytes # (Manual) Monocytes # (Manual) POC ABG pH POC ABG pCO2 POC ABG pO2 Sodium 135 L Potassium Chloride Carbon Dioxide BUN Creatinine 0.5 L Glucose POC Glucose 61 L 122 H Lactic Acid Uric Acid Calcium 8.2 L Magnesium Total Bilirubin Direct Bilirubin AST ALT Alkaline Phosphatase Ammonia C-Reactive Protein Total Protein Albumin Vitamin B1 Vitamin B12 25-OH Vitamin D Total Free T4 T3 (GILSON) Urine Creatinine Urine Total Protein Acetaminophen 07/04/18 07/05/18 07/06/18 16:44 21:15 11:50 WBC RBC Hgb Hct MCV MCH RDW Plt Count Lymph % (Auto) Drew % (Auto) Lymph # Drew # Seg Neutrophils % Seg Neuts % (Manual) Lymphocytes % (Manual) Seg Neutrophils # Seg Neutrophils # Man Lymphocytes # (Manual) Monocytes # (Manual) POC ABG pH POC ABG pCO2 POC ABG pO2 Sodium Potassium Chloride Carbon Dioxide BUN Creatinine Glucose POC Glucose 124 H 150 H 67 L Lactic Acid Uric Acid Calcium Magnesium Total Bilirubin Direct Bilirubin AST ALT Alkaline Phosphatase Ammonia C-Reactive Protein Total Protein Albumin Vitamin B1 Vitamin B12 25-OH Vitamin D Total Free T4 T3 (GILSON) Urine Creatinine Urine Total Protein Acetaminophen 07/06/18 07/06/18 13:32 16:27 WBC RBC Hgb Hct MCV MCH RDW Plt Count Lymph % (Auto) Drew % (Auto) Lymph # Drew # Seg Neutrophils % Seg Neuts % (Manual) Lymphocytes % (Manual) Seg Neutrophils # Seg Neutrophils # Man Lymphocytes # (Manual) Monocytes # (Manual) POC ABG pH POC ABG pCO2 POC ABG pO2 Sodium Potassium Chloride Carbon Dioxide BUN Creatinine Glucose POC Glucose 146 H 125 H Lactic Acid Uric Acid Calcium Magnesium Total Bilirubin Direct Bilirubin AST ALT Alkaline Phosphatase Ammonia C-Reactive Protein Total Protein Albumin Vitamin B1 Vitamin B12 25-OH Vitamin D Total Free T4 T3 (GILSON) Urine Creatinine Urine Total Protein Acetaminophen Allied health notes reviewed: nursing
[2018-07-06] MEDS: TYLENOL PO PRN (23:31)
[2018-07-07] MEDS: LOPRESSOR PO SCH ×3 (01:04→17:25)
[2018-07-07] MEDS: LASIX PO SCH ×2 (06:27→17:17)
[2018-07-07] MEDS: DUONEB *Not for PRN Use IH SCH ×3 (09:05→21:24)
[2018-07-07] MEDS: HumaLOG SUB-Q SCH ×4 (09:11→21:41)
[2018-07-07] MEDS: PEPCID PO SCH (10:17)
[2018-07-07] MEDS: ELIQUIS PO SCH ×2 (10:17→21:40)
[2018-07-07] MEDS: ZOLOFT PO SCH (10:17)
--- NOTE | 2018-07-07 13:37 | Progress Note ---
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 Bili Likely congestive hepatopathy, Severe protein calorie malnutrition Hypokalemia -ABGs and CXR prn -Anticoagulated on Eliquis -Supplemental oxygen to keep O2 sats>90% -Accuchecks with glycemic control Target blood glucose of 140-180mg/dl -Cardioprotective measures, heart failure measures -Psychosis management per Psych services -PT/OT as tolerated -Aspiration precautions -Glycemic control -Influenza and pneumonia vaccinations per protocol -Continue all other care per primary service Discharge planning CONDITION: FAIR PROGNOSIS: POOR ASSISTED CODE STATUS: FULL CODE PER DOCUMENTATION Subjective Date of service: 07/07/18 Principal diagnosis: altered mental status, psychosis, chronic systolic heart failure, Interval history: Patient is seen today for: s/p Cardiopulmonary arrest; acute hypoxemic respiratory failure; Cardiomyopathy; Psychosis Seen and examined at bedside; 24-hour events reviewed; nursing and respiratory care staff consulted; Vitals, labs, medications, chart reviewed; no adverse overnight events reported to me; On going agitation with intermittent confusion. Denies any chest pain, no shortness of breath, on oxygen at 2LNC Objective Vital Signs - 12hr 07/07/18 07/07/18 07/07/18 04:30 08:05 09:06 Temperature 97.5 F L Pulse Rate 100 H Pulse Rate [ 102 H Anterior Bilateral] Respiratory 18 Rate Respiratory 16 Rate [Anterior Bilateral] Blood Pressure 122/73 O2 Sat by Pulse 99 100 Oximetry 07/07/18 07/07/18 09:21 10:20 Temperature 97.4 F L Pulse Rate 102 H 102 H Pulse Rate [ Anterior Bilateral] Respiratory 18 Rate Respiratory Rate [Anterior Bilateral] Blood Pressure 109/73 109/73 O2 Sat by Pulse 100 Oximetry Constitutional: no acute distress, asleep, other (Confusing at times.) Eyes: non-icteric, other (Pupils 4mm, sluggichly reacting to light) ENT: oropharynx dry, other (extubated) Neck: supple, no lymphadenopathy, no JVD, other (no thyromegaly) Effort: normal Ascultation: Bilateral: diminished breath sounds, rales Percussion: Bilateral: not dull Cardiovascular: irregular rhythm, other (S1,S2,) Gastrointestinal: normoactive bowel sounds, soft, non-tender, non-distended Integumentary: rash (exematoid rash to upper chest) Extremities: no cyanosis, no edema, pulses normal, no ischemia or petechiae Neurologic: normal mental status, non-focal exam (grossly), pupils equal and r ound, CN II-XII normal Psychiatric: depressed CBC and BMP: 07/11/18 03:22 07/11/18 03:22 ABG, PT/INR, D-dimer: ABG POC ABG pH 7.552 (7.35-7.45) H 06/28/18 10:53 POC ABG pCO2 40.8 (35-45) 06/28/18 10:53 POC ABG pO2 83 (80-105) 06/28/18 10:53 POC ABG HCO3 35.9 (22-26 mml/L) 06/28/18 10:53 POC ABG Total CO2 37 (23-27mmol/L) 06/28/18 10:53 POC ABG O2 Sat 97 06/28/18 10:53 Abnormal lab findings: Abnormal Labs 06/16/18 06/16/18 06/16/18 21:05 21:43 21:43 WBC RBC Hgb Hct MCV MCH RDW Plt Count Lymph % (Auto) [place] % (Auto) Lymph # [place] # Seg Neutrophils % Seg Neuts % (Manual) Lymphocytes % (Manual) Seg Neutrophils # Seg Neutrophils # Man Lymphocytes # (Manual) Monocytes # (Manual) POC ABG pH POC ABG pCO2 POC ABG pO2 Sodium 129 L Potassium Chloride 95.3 L Carbon Dioxide 14 L BUN 23 H Creatinine Glucose 146 H POC Glucose < 40 L Lactic Acid Uric Acid Calcium Magnesium Total Bilirubin Direct Bilirubin AST ALT Alkaline Phosphatase Ammonia C-Reactive Protein Total Protein Albumin Vitamin B1 Vitamin B12 25-OH Vitamin D Total Free T4 T3 (GILSON) Urine Creatinine Urine Total Protein Acetaminophen < 5.0 L 06/16/18 06/16/18 06/16/18 21:43 21:43 22:27 WBC RBC 5.70 H Hgb Hct 44.6 H MCV 78 L MCH 25 L RDW 18.7 H Plt Count Lymph % (Auto) [place] % (Auto) Lymph # [place] # Seg Neutrophils % 78.8 H Seg Neuts % (Manual) Lymphocytes % (Manual) Seg Neutrophils # Seg Neutrophils # Man Lymphocytes # (Manual) Monocytes # (Manual) POC ABG pH POC ABG pCO2 POC ABG pO2 Sodium Potassium Chloride Carbon Dioxide BUN Creatinine Glucose POC Glucose 121 H Lactic Acid Uric Acid Calcium Magnesium Total Bilirubin Direct Bilirubin AST ALT Alkaline Phosphatase Ammonia C-Reactive Protein Total Protein Albumin Vitamin B1 Vitamin B12 25-OH Vitamin D Total Free T4 1.87 H T3 (GILSNO) Urine Creatinine Urine Total Protein Acetaminophen 06/16/18 06/16/18 06/17/18 22:33 23:43 03:56 WBC RBC Hgb Hct MCV MCH RDW Plt Count Lymph % (Auto) [place] % (Auto) Lymph # [place] # Seg Neutrophils % Seg Neuts % (Manual) Lymphocytes % (Manual) Seg Neutrophils # Seg Neutrophils # Man Lymphocytes # (Manual) Monocytes # (Manual) POC ABG pH POC ABG pCO2 POC ABG pO2 Sodium Potassium Chloride Carbon Dioxide BUN Creatinine Glucose POC Glucose Lactic Acid 4.40 H* 4.30 H* 3.10 H* Uric Acid Calcium Magnesium Total Bilirubin Direct Bilirubin AST ALT Alkaline Phosphatase Ammonia C-Reactive Protein Total Protein Albumin Vitamin B1 Vitamin B12 25-OH Vitamin D Total Free T4 T3 (GILSON) Urine Creatinine Urine Total Protein Acetaminophen 06/17/18 06/17/18 06/17/18 08:35 08:40 11:00 WBC RBC Hgb Hct MCV MCH RDW Plt Count Lymph % (Auto) [place] % (Auto) Lymph # [place] # Seg Neutrophils % Seg Neuts % (Manual) Lymphocytes % (Manual) Seg Neutrophils # Seg Neutrophils # Man Lymphocytes # (Manual) Monocytes # (Manual) POC ABG pH POC ABG pCO2 POC ABG pO2 Sodium Potassium Chloride Carbon Dioxide BUN Creatinine Glucose POC Glucose 56 L Lactic Acid 2.70 H* 3.40 H* Uric Acid Calcium Magnesium Total Bilirubin Direct Bilirubin AST ALT Alkaline Phosphatase Ammonia C-Reactive Protein Total Protein Albumin Vitamin B1 Vitamin B12 25-OH Vitamin D Total Free T4 T3 (GILSON) Urine Creatinine Urine Total Protein Acetaminophen 06/17/18 06/17/18 06/17/18 11:00 11:00 11:00 WBC 11.9 H RBC 5.25 H Hgb Hct MCV MCH 25 L RDW 18.6 H Plt Count Lymph % (Auto) [place] % (Auto) Lymph # [place] # Seg Neutrophils % Seg Neuts % (Manual) Lymphocytes % (Manual) Seg Neutrophils # Seg Neutrophils # Man Lymphocytes # (Manual) Monocytes # (Manual) POC ABG pH POC ABG pCO2 POC ABG pO2 Sodium 128 L Potassium Chloride 95.6 L Carbon Dioxide 15 L BUN 22 H Creatinine Glucose 110 H POC Glucose Lactic Acid Uric Acid Calcium 8.3 L Magnesium Total Bilirubin Direct Bilirubin 1.6 H AST 66 H ALT Alkaline Phosphatase 178 H Ammonia C-Reactive Protein Total Protein 4.7 L Albumin 2.4 L Vitamin B1 Vitamin B12 25-OH Vitamin D Total Free T4 T3 (GILSON) Urine Creatinine Urine Total Protein Acetaminophen 06/17/18 06/17/18 06/17/18 15:08 15:08 23:00 WBC RBC Hgb Hct MCV MCH RDW Plt Count Lymph % (Auto) [place] % (Auto) Lymph # [place] # Seg Neutrophils % Seg Neuts % (Manual) Lymphocytes % (Manual) Seg Neutrophils # Seg Neutrophils # Man Lymphocytes # (Manual) Monocytes # (Manual) POC ABG pH POC ABG pCO2 POC ABG pO2 Sodium Potassium Chloride Carbon Dioxide BUN Creatinine Glucose POC Glucose Lactic Acid 4.00 H* Uric Acid Calcium Magnesium Total Bilirubin Direct Bilirubin AST ALT Alkaline Phosphatase Ammonia 10.0 L C-Reactive Protein Total Protein Albumin Vitamin B1 Vitamin B12 25-OH Vitamin D Total Free T4 1.53 H T3 (GILSON) Urine Creatinine Urine Total Protein Acetaminophen 06/18/18 06/18/18 06/18/18 08:59 08:59 12:49 WBC RBC 5.29 H Hgb Hct MCV 78 L MCH 25 L RDW 18.4 H Plt Count Lymph % (Auto) [place] % (Auto) Lymph # [place] # Seg Neutrophils % Seg Neuts % (Manual) Lymphocytes % (Manual) Seg Neutrophils # Seg Neutrophils # Man Lymphocytes # (Manual) Monocytes # (Manual) POC ABG pH POC ABG pCO2 POC ABG pO2 Sodium 128 L Potassium 5.9 H D Chloride 96.1 L Carbon Dioxide 20 L BUN 22 H Creatinine Glucose POC Glucose 60 L Lactic Acid Uric Acid Calcium Magnesium Total Bilirubin Direct Bilirubin AST ALT Alkaline Phosphatase Ammonia C-Reactive Protein Total Protein Albumin Vitamin B1 Vitamin B12 25-OH Vitamin D Total Free T4 T3 (GILSON) Urine Creatinine Urine Total Protein Acetaminophen 06/18/18 06/19/18 06/19/18 21:28 12:14 13:23 WBC RBC Hgb Hct MCV MCH RDW Plt Count Lymph % (Auto) [place] % (Auto) Lymph # [place] # Seg Neutrophils % Seg Neuts % (Manual) Lymphocytes % (Manual) Seg Neutrophils # Seg Neutrophils # Man Lymphocytes # (Manual) Monocytes # (Manual) POC ABG pH POC ABG pCO2 POC ABG pO2 Sodium 122 L Potassium 5.4 H Chloride 95.0 L Carbon Dioxide 13 L D BUN 21 H Creatinine Glucose 119 H POC Glucose 114 H Lactic Acid Uric Acid Calcium 8.3 L Magnesium Total Bilirubin Direct Bilirubin AST ALT Alkaline Phosphatase Ammonia C-Reactive Protein Total Protein Albumin Vitamin B1 Vitamin B12 25-OH Vitamin D Total Free T4 T3 (GILSON) Urine Creatinine Urine Total Protein Acetaminophen 06/19/18 06/19/18 06/19/18 14:47 16:38 22:42 WBC RBC 5.51 H Hgb Hct 45.3 H MCV MCH 25 L RDW 18.6 H Plt Count Lymph % (Auto) [place] % (Auto) Lymph # [place] # Seg Neutrophils % Seg Neuts % (Manual) Lymphocytes % (Manual) Seg Neutrophils # Seg Neutrophils # Man Lymphocytes # (Manual) Monocytes # (Manual) POC ABG pH POC ABG pCO2 POC ABG pO2 Sodium Potassium Chloride Carbon Dioxide BUN Creatinine Glucose POC Glucose 108 H 49 L Lactic Acid Uric Acid Calcium Magnesium Total Bilirubin Direct Bilirubin AST ALT Alkaline Phosphatase Ammonia C-Reactive Protein Total Protein Albumin Vitamin B1 Vitamin B12 25-OH Vitamin D Total Free T4 T3 (GILSON) Urine Creatinine Urine Total Protein Acetaminophen 06/19/18 06/20/18 06/20/18 Unknown 07:31 16:51 WBC RBC Hgb Hct MCV MCH RDW Plt Count Lymph % (Auto) [place] % (Auto) Lymph # [place] # Seg Neutrophils % Seg Neuts % (Manual) Lymphocytes % (Manual) Seg Neutrophils # Seg Neutrophils # Man Lymphocytes # (Manual) Monocytes # (Manual) POC ABG pH POC ABG pCO2 POC ABG pO2 Sodium 132 L D Potassium Chloride 94.3 L Carbon Dioxide BUN 20 H Creatinine Glucose POC Glucose Lactic Acid Uric Acid 8.6 H Calcium Magnesium 1.30 L Total Bilirubin Direct Bilirubin AST ALT Alkaline Phosphatase Ammonia C-Reactive Protein Total Protein Albumin Vitamin B1 Vitamin B12 25-OH Vitamin D Total Free T4 T3 (GILSON) 58 L Urine Creatinine 61.7 H Urine Total Protein 32 H Acetaminophen 06/20/18 06/20/18 06/21/18 20:53 20:53 16:27 WBC RBC Hgb Hct MCV MCH RDW Plt Count Lymph % (Auto) [place] % (Auto) Lymph # [place] # Seg Neutrophils % Seg Neuts % (Manual) Lymphocytes % (Manual) Seg Neutrophils # Seg Neutrophils # Man Lymphocytes # (Manual) Monocytes # (Manual) POC ABG pH POC ABG pCO2 POC ABG pO2 Sodium Potassium Chloride Carbon Dioxide BUN Creatinine Glucose POC Glucose Lactic Acid Uric Acid 9.2 H Calcium Magnesium Total Bilirubin Direct Bilirubin AST ALT Alkaline Phosphatase Ammonia C-Reactive Protein Total Protein Albumin Vitamin B1 Vitamin B12 1598 H 25-OH Vitamin D Total 10 L Free T4 T3 (GILSON) Urine Creatinine Urine Total Protein Acetaminophen 06/21/18 06/21/18 06/21/18 16:27 16:27 16:27 WBC RBC 5.26 H Hgb Hct MCV 77 L MCH 26 L RDW 17.7 H Plt Count Lymph % (Auto) [place] % (Auto) Lymph # [place] # Seg Neutrophils % Seg Neuts % (Manual) Lymphocytes % (Manual) Seg Neutrophils # Seg Neutrophils # Man Lymphocytes # (Manual) Monocytes # (Manual) POC ABG pH POC ABG pCO2 POC ABG pO2 Sodium 130 L Potassium Chloride 95.6 L Carbon Dioxide BUN 24 H Creatinine Glucose POC Glucose Lactic Acid Uric Acid Calcium Magnesium Total Bilirubin Direct Bilirubin AST ALT Alkaline Phosphatase Ammonia C-Reactive Protein Total Protein Albumin Vitamin B1 <6 L Vitamin B12 25-OH Vitamin D Total Free T4 T3 (GILSON) Urine Creatinine Urine Total Protein Acetaminophen 06/21/18 06/22/18 06/23/18 21:44 21:42 14:54 WBC RBC 5.07 H Hgb Hct MCV 78 L MCH 25 L RDW 18.5 H Plt Count Lymph % (Auto) [place] % (Auto) 12.3 H Lymph # 1.0 L [place] # Seg Neutrophils % Seg Neuts % (Manual) Lymphocytes % (Manual) Seg Neutrophils # Seg Neutrophils # Man Lymphocytes # (Manual) Monocytes # (Manual) POC ABG pH POC ABG pCO2 POC ABG pO2 Sodium Potassium Chloride Carbon Dioxide BUN Creatinine Glucose POC Glucose 126 H 114 H Lactic Acid Uric Acid Calcium Magnesium Total Bilirubin Direct Bilirubin AST ALT Alkaline Phosphatase Ammonia C-Reactive Protein Total Protein Albumin Vitamin B1 Vitamin B12 25-OH Vitamin D Total Free T4 T3 (GILSON) Urine Creatinine Urine Total Protein Acetaminophen 06/23/18 06/25/18 06/25/18 14:54 00:00 00:00 WBC 3.6 L RBC 5.31 H Hgb Hct MCV 77 L MCH 26 L RDW 19.0 H Plt Count Lymph % (Auto) [place] % (Auto) 10.2 H Lymph # [place] # Seg Neutrophils % Seg Neuts % (Manual) Lymphocytes % (Manual) Seg Neutrophils # Seg Neutrophils # Man Lymphocytes # (Manual) Monocytes # (Manual) POC ABG pH POC ABG pCO2 POC ABG pO2 Sodium 132 L 131 L Potassium 3.5 L Chloride 91.5 L 93.5 L Carbon Dioxide BUN 19 H 21 H Creatinine Glucose POC Glucose Lactic Acid Uric Acid Calcium 8.1 L Magnesium Total Bilirubin 2.80 H 2.70 H Direct Bilirubin AST 52 H 81 H ALT Alkaline Phosphatase 231 H 243 H Ammonia C-Reactive Protein Total Protein 5.5 L 5.5 L Albumin 2.8 L 2.7 L Vitamin B1 Vitamin B12 25-OH Vitamin D Total Free T4 T3 (GILSON) Urine Creatinine Urine Total Protein Acetaminophen 06/25/18 06/25/18 06/25/18 16:02 16:02 16:18 WBC 3.9 L RBC 5.78 H Hgb 14.6 H Hct 45.4 H MCV MCH 25 L RDW 19.2 H Plt Count Lymph % (Auto) [place] % (Auto) Lymph # [place] # Seg Neutrophils % Seg Neuts % (Manual) Lymphocytes % (Manual) Seg Neutrophils # Seg Neutrophils # Man Lymphocytes # (Manual) 1.1 L Monocytes # (Manual) POC ABG pH POC ABG pCO2 POC ABG pO2 Sodium 131 L Potassium Chloride 90.0 L Carbon Dioxide BUN 25 H Creatinine 1.4 H Glucose POC Glucose Lactic Acid 4.00 H* Uric Acid Calcium Magnesium Total Bilirubin 3.10 H Direct Bilirubin AST 68 H ALT Alkaline Phosphatase 296 H Ammonia C-Reactive Protein Total Protein 6.1 L Albumin 3.3 L Vitamin B1 Vitamin B12 25-OH Vitamin D Total Free T4 T3 (GILSON) Urine Creatinine Urine Total Protein Acetaminophen 06/25/18 06/26/18 06/26/18 21:06 11:33 11:37 WBC RBC Hgb Hct MCV MCH 26 L RDW 19.2 H Plt Count 139 L Lymph % (Auto) [place] % (Auto) Lymph # [place] # Seg Neutrophils % Seg Neuts % (Manual) 85.0 H Lymphocytes % (Manual) 6.0 L Seg Neutrophils # Seg Neutrophils # Man 8.0 H Lymphocytes # (Manual) 0.6 L Monocytes # (Manual) POC ABG pH POC ABG pCO2 POC ABG pO2 Sodium Potassium Chloride Carbon Dioxide BUN Creatinine Glucose POC Glucose < 40 L Lactic Acid 6.40 H* Uric Acid Calcium Magnesium Total Bilirubin Direct Bilirubin AST ALT Alkaline Phosphatase Ammonia C-Reactive Protein Total Protein Albumin Vitamin B1 Vitamin B12 25-OH Vitamin D Total Free T4 T3 (GILSON) Urine Creatinine Urine Total Protein Acetaminophen 06/26/18 06/26/18 06/26/18 11:37 11:51 11:59 WBC RBC Hgb Hct MCV MCH RDW Plt Count Lymph % (Auto) [place] % (Auto) Lymph # [place] # Seg Neutrophils % Seg Neuts % (Manual) Lymphocytes % (Manual) Seg Neutrophils # Seg Neutrophils # Man Lymphocytes # (Manual) Monocytes # (Manual) POC ABG pH 7.029 L POC ABG pCO2 POC ABG pO2 73 L Sodium 129 L Potassium Chloride 87.0 L Carbon Dioxide 11 L D BUN 31 H Creatinine 1.9 H Glucose 206 H POC Glucose 253 H Lactic Acid Uric Acid Calcium 7.9 L Magnesium Total Bilirubin 2.90 H Direct Bilirubin AST 98 H ALT Alkaline Phosphatase 196 H Ammonia C-Reactive Protein Total Protein 4.3 L D Albumin 2.2 L Vitamin B1 Vitamin B12 25-OH Vitamin D Total Free T4 T3 (GILSON) Urine Creatinine Urine Total Protein Acetaminophen 06/26/18 06/26/18 06/26/18 14:54 15:08 15:10 WBC 14.2 H RBC 5.66 H Hgb 14.5 H Hct 45.6 H D MCV MCH 26 L RDW 19.4 H Plt Count Lymph % (Auto) [place] % (Auto) Lymph # [place] # Seg Neutrophils % Seg Neuts % (Manual) 88.0 H Lymphocytes % (Manual) 5.0 L Seg Neutrophils # Seg Neutrophils # Man 12.5 H Lymphocytes # (Manual) 0.7 L Monocytes # (Manual) 0.9 H POC ABG pH POC ABG pCO2 POC ABG pO2 Sodium Potassium Chloride Carbon Dioxide BUN Creatinine Glucose POC Glucose 172 H Lactic Acid 11.90 H* Uric Acid Calcium Magnesium Total Bilirubin Direct Bilirubin AST ALT Alkaline Phosphatase Ammonia C-Reactive Protein Total Protein Albumin Vitamin B1 Vitamin B12 25-OH Vitamin D Total Free T4 T3 (GILSON) Urine Creatinine Urine Total Protein Acetaminophen 06/26/18 06/26/18 06/26/18 16:01 18:47 20:55 WBC RBC Hgb Hct MCV MCH RDW Plt Count Lymph % (Auto) [place] % (Auto) Lymph # [place] # Seg Neutrophils % Seg Neuts % (Manual) Lymphocytes % (Manual) Seg Neutrophils # Seg Neutrophils # Man Lymphocytes # (Manual) Monocytes # (Manual) POC ABG pH POC ABG pCO2 34.0 L POC ABG pO2 Sodium Potassium Chloride Carbon Dioxide BUN Creatinine Glucose POC Glucose 183 H 131 H Lactic Acid Uric Acid Calcium Magnesium Total Bilirubin Direct Bilirubin AST ALT Alkaline Phosphatase Ammonia C-Reactive Protein Total Protein Albumin Vitamin B1 Vitamin B12 25-OH Vitamin D Total Free T4 T3 (GILSON) Urine Creatinine Urine Total Protein Acetaminophen 06/26/18 06/27/18 06/27/18 21:55 09:29 09:29 WBC RBC Hgb Hct MCV MCH RDW Plt Count Lymph % (Auto) [place] % (Auto) Lymph # [place] # Seg Neutrophils % Seg Neuts % (Manual) Lymphocytes % (Manual) Seg Neutrophils # Seg Neutrophils # Man Lymphocytes # (Manual) Monocytes # (Manual) POC ABG pH POC ABG pCO2 POC ABG pO2 Sodium 135 L 135 L Potassium 3.5 L Chloride 91.7 L 91.2 L Carbon Dioxide BUN 35 H 37 H Creatinine 2.3 H 2.1 H Glucose 147 H 104 H POC Glucose Lactic Acid Uric Acid Calcium 8.3 L 8.1 L Magnesium Total Bilirubin 3.50 H Direct Bilirubin AST 218 H ALT 57 H Alkaline Phosphatase 197 H Ammonia C-Reactive Protein Total Protein 5.0 L Albumin 2.3 L Vitamin B1 Vitamin B12 25-OH Vitamin D Total Free T4 1.78 H T3 (GILSON) Urine Creatinine Urine Total Protein Acetaminophen 06/27/18 06/27/18 06/27/18 09:29 09:29 10:00 WBC 16.3 H RBC 5.44 H Hgb Hct MCV 76 L MCH 25 L RDW 18.3 H Plt Count Lymph % (Auto) [place] % (Auto) Lymph # [place] # Seg Neutrophils % Seg Neuts % (Manual) 91.0 H Lymphocytes % (Manual) 3.0 L Seg Neutrophils # Seg Neutrophils # Man 14.8 H Lymphocytes # (Manual) 0.5 L Monocytes # (Manual) 1.0 H POC ABG pH POC ABG pCO2 POC ABG pO2 Sodium Potassium Chloride Carbon Dioxide BUN Creatinine Glucose POC Glucose 106 H Lactic Acid 4.00 H* Uric Acid Calcium Magnesium Total Bilirubin Direct Bilirubin AST ALT Alkaline Phosphatase Ammonia C-Reactive Protein Total Protein Albumin Vitamin B1 Vitamin B12 25-OH Vitamin D Total Free T4 T3 (GILSON) Urine Creatinine Urine Total Protein Acetaminophen 06/27/18 06/27/18 06/27/18 11:51 12:50 13:39 WBC RBC Hgb Hct MCV MCH RDW Plt Count Lymph % (Auto) [place] % (Auto) Lymph # [place] # Seg Neutrophils % Seg Neuts % (Manual) Lymphocytes % (Manual) Seg Neutrophils # Seg Neutrophils # Man Lymphocytes # (Manual) Monocytes # (Manual) POC ABG pH 7.584 H POC ABG pCO2 32.8 L POC ABG pO2 109 H Sodium Potassium Chloride Carbon Dioxide BUN Creatinine Glucose POC Glucose 112 H Lactic Acid 3.20 H* Uric Acid Calcium Magnesium Total Bilirubin Direct Bilirubin AST ALT Alkaline Phosphatase Ammonia C-Reactive Protein Total Protein Albumin Vitamin B1 Vitamin B12 25-OH Vitamin D Total Free T4 T3 (GILSON) Urine Creatinine Urine Total Protein Acetaminophen 06/27/18 06/27/18 06/27/18 19:31 21:50 23:10 WBC RBC Hgb Hct MCV MCH RDW Plt Count Lymph % (Auto) [place] % (Auto) Lymph # [place] # Seg Neutrophils % Seg Neuts % (Manual) Lymphocytes % (Manual) Seg Neutrophils # Seg Neutrophils # Man Lymphocytes # (Manual) Monocytes # (Manual) POC ABG pH POC ABG pCO2 POC ABG pO2 Sodium Potassium Chloride Carbon Dioxide BUN Creatinine Glucose POC Glucose Lactic Acid 2.40 H* 2.30 H* 2.30 H* Uric Acid Calcium Magnesium Total Bilirubin Direct Bilirubin AST ALT Alkaline Phosphatase Ammonia C-Reactive Protein Total Protein Albumin Vitamin B1 Vitamin B12 25-OH Vitamin D Total Free T4 T3 (GILSON) Urine Creatinine Urine Total Protein Acetaminophen 06/28/18 06/28/18 06/28/18 02:35 05:00 05:00 WBC RBC Hgb Hct MCV MCH RDW Plt Count Lymph % (Auto) [place] % (Auto) Lymph # [place] # Seg Neutrophils % Seg Neuts % (Manual) Lymphocytes % (Manual) Seg Neutrophils # Seg Neutrophils # Man Lymphocytes # (Manual) Monocytes # (Manual) POC ABG pH POC ABG pCO2 POC ABG pO2 Sodium 134 L Potassium 2.6 L* D Chloride 92.3 L Carbon Dioxide 32 H BUN 34 H Creatinine 1.8 H Glucose 127 H POC Glucose Lactic Acid 2.20 H* 2.30 H* Uric Acid Calcium 7.5 L Magnesium Total Bilirubin 3.50 H Direct Bilirubin AST 226 H ALT 60 H Alkaline Phosphatase 172 H Ammonia C-Reactive Protein Total Protein 4.2 L Albumin 2.0 L Vitamin B1 Vitamin B12 25-OH Vitamin D Total Free T4 T3 (GILSON) Urine Creatinine Urine Total Protein Acetaminophen 06/28/18 06/28/18 06/28/18 05:00 08:30 08:30 WBC 15.7 H RBC Hgb Hct MCV 77 L MCH 25 L RDW 18.5 H Plt Count 112 L Lymph % (Auto) 6.0 L [place] % (Auto) 10.0 H Lymph # 0.9 L [place] # 1.6 H Seg Neutrophils % 83.4 H Seg Neuts % (Manual) Lymphocytes % (Manual) Seg Neutrophils # 13.1 H Seg Neutrophils # Man Lymphocytes # (Manual) Monocytes # (Manual) POC ABG pH POC ABG pCO2 POC ABG pO2 Sodium Potassium Chloride Carbon Dioxide BUN Creatinine Glucose POC Glucose Lactic Acid 2.40 H* Uric Acid Calcium Magnesium Total Bilirubin Direct Bilirubin AST ALT Alkaline Phosphatase Ammonia C-Reactive Protein 4.80 H Total Protein Albumin Vitamin B1 Vitamin B12 25-OH Vitamin D Total Free T4 T3 (GILSON) Urine Creatinine Urine Total Protein Acetaminophen 06/28/18 06/28/18 06/28/18 10:53 11:23 18:35 WBC RBC Hgb Hct MCV MCH RDW Plt Count Lymph % (Auto) [place] % (Auto) Lymph # [place] # Seg Neutrophils % Seg Neuts % (Manual) Lymphocytes % (Manual) Seg Neutrophils # Seg Neutrophils # Man Lymphocytes # (Manual) Monocytes # (Manual) POC ABG pH 7.552 H POC ABG pCO2 POC ABG pO2 Sodium Potassium 3.1 L Chloride Carbon Dioxide BUN Creatinine Glucose POC Glucose 122 H Lactic Acid Uric Acid Calcium Magnesium Total Bilirubin Direct Bilirubin AST ALT Alkaline Phosphatase Ammonia C-Reactive Protein Total Protein Albumin Vitamin B1 Vitamin B12 25-OH Vitamin D Total Free T4 T3 (GILSON) Urine Creatinine Urine Total Protein Acetaminophen 06/29/18 06/29/18 06/29/18 06:40 06:40 19:44 WBC 14.6 H RBC Hgb Hct MCV 77 L MCH 25 L RDW 19.3 H Plt Count 88 L Lymph % (Auto) [place] % (Auto) Lymph # [place] # Seg Neutrophils % Seg Neuts % (Manual) Lymphocytes % (Manual) Seg Neutrophils # Seg Neutrophils # Man Lymphocytes # (Manual) Monocytes # (Manual) POC ABG pH POC ABG pCO2 POC ABG pO2 Sodium Potassium 2.7 L* Chloride 95.3 L Carbon Dioxide 32 H BUN 25 H Creatinine Glucose 145 H POC Glucose 59 L Lactic Acid Uric Acid Calcium 7.9 L Magnesium Total Bilirubin 3.60 H Direct Bilirubin AST 213 H ALT Alkaline Phosphatase 176 H Ammonia C-Reactive Protein Total Protein 4.8 L Albumin 2.2 L Vitamin B1 Vitamin B12 25-OH Vitamin D Total Free T4 T3 (GILSON) Urine Creatinine Urine Total Protein Acetaminophen 06/29/18 06/30/18 06/30/18 20:43 02:37 04:45 WBC RBC Hgb Hct MCV MCH RDW Plt Count Lymph % (Auto) [place] % (Auto) Lymph # [place] # Seg Neutrophils % Seg Neuts % (Manual) Lymphocytes % (Manual) Seg Neutrophils # Seg Neutrophils # Man Lymphocytes # (Manual) Monocytes # (Manual) POC ABG pH POC ABG pCO2 POC ABG pO2 Sodium Potassium 3.1 L 2.8 L* Chloride Carbon Dioxide 31 H BUN 18 H Creatinine Glucose POC Glucose 59 L Lactic Acid Uric Acid Calcium 8.0 L Magnesium Total Bilirubin 3.70 H Direct Bilirubin AST 216 H ALT 63 H Alkaline Phosphatase 163 H Ammonia C-Reactive Protein Total Protein 4.5 L Albumin 2.1 L Vitamin B1 Vitamin B12 25-OH Vitamin D Total Free T4 T3 (GILSON) Urine Creatinine Urine Total Protein Acetaminophen 06/30/18 06/30/18 07/01/18 04:45 06:24 04:39 WBC 12.1 H RBC Hgb Hct MCV 78 L 77 L MCH 25 L 25 L RDW 19.0 H 19.3 H Plt Count 91 L 77 L Lymph % (Auto) [place] % (Auto) Lymph # [place] # Seg Neutrophils % Seg Neuts % (Manual) Lymphocytes % (Manual) Seg Neutrophils # Seg Neutrophils # Man Lymphocytes # (Manual) Monocytes # (Manual) POC ABG pH POC ABG pCO2 POC ABG pO2 Sodium Potassium Chloride Carbon Dioxide BUN Creatinine Glucose POC Glucose 63 L Lactic Acid Uric Acid Calcium Magnesium Total Bilirubin Direct Bilirubin AST ALT Alkaline Phosphatase Ammonia C-Reactive Protein Total Protein Albumin Vitamin B1 Vitamin B12 25-OH Vitamin D Total Free T4 T3 (GILSON) Urine Creatinine Urine Total Protein Acetaminophen 07/01/18 07/01/18 07/02/18 04:39 11:12 05:23 WBC RBC Hgb Hct MCV 77 L MCH 25 L RDW 19.2 H Plt Count 78 L Lymph % (Auto) [place] % (Auto) Lymph # [place] # Seg Neutrophils % Seg Neuts % (Manual) Lymphocytes % (Manual) Seg Neutrophils # Seg Neutrophils # Man Lymphocytes # (Manual) Monocytes # (Manual) POC ABG pH POC ABG pCO2 POC ABG pO2 Sodium Potassium 3.5 L D Chloride Carbon Dioxide BUN Creatinine Glucose 109 H POC Glucose 206 H Lactic Acid Uric Acid Calcium 8.1 L Magnesium Total Bilirubin 3.90 H Direct Bilirubin AST 163 H ALT 60 H Alkaline Phosphatase 166 H Ammonia C-Reactive Protein Total Protein 4.5 L Albumin 2.0 L Vitamin B1 Vitamin B12 25-OH Vitamin D Total Free T4 T3 (GILSON) Urine Creatinine Urine Total Protein Acetaminophen 07/02/18 07/02/18 07/03/18 05:23 12:18 08:14 WBC RBC Hgb Hct MCV 76 L MCH 25 L RDW 19.0 H Plt Count 84 L Lymph % (Auto) [place] % (Auto) Lymph # [place] # Seg Neutrophils % Seg Neuts % (Manual) Lymphocytes % (Manual) Seg Neutrophils # Seg Neutrophils # Man Lymphocytes # (Manual) Monocytes # (Manual) POC ABG pH POC ABG pCO2 POC ABG pO2 Sodium 135 L Potassium 3.4 L Chloride Carbon Dioxide BUN Creatinine 0.6 L Glucose POC Glucose 144 H Lactic Acid Uric Acid Calcium 8.3 L Magnesium Total Bilirubin Direct Bilirubin AST ALT Alkaline Phosphatase Ammonia C-Reactive Protein Total Protein Albumin Vitamin B1 Vitamin B12 25-OH Vitamin D Total Free T4 T3 (GILSON) Urine Creatinine Urine Total Protein Acetaminophen 07/03/18 07/03/18 07/04/18 08:14 16:33 05:36 WBC RBC Hgb Hct MCV 77 L MCH 25 L RDW 18.5 H Plt Count 103 L Lymph % (Auto) [place] % (Auto) Lymph # [place] # Seg Neutrophils % Seg Neuts % (Manual) Lymphocytes % (Manual) Seg Neutrophils # Seg Neutrophils # Man Lymphocytes # (Manual) Monocytes # (Manual) POC ABG pH POC ABG pCO2 POC ABG pO2 Sodium 135 L Potassium Chloride 97.7 L Carbon Dioxide BUN Creatinine 0.5 L Glucose POC Glucose 69 L Lactic Acid Uric Acid Calcium 8.2 L Magnesium 1.50 L Total Bilirubin Direct Bilirubin AST ALT Alkaline Phosphatase Ammonia C-Reactive Protein Total Protein Albumin Vitamin B1 Vitamin B12 25-OH Vitamin D Total Free T4 T3 (GILSON) Urine Creatinine Urine Total Protein Acetaminophen 07/04/18 07/04/18 07/04/18 05:36 08:54 11:47 WBC RBC Hgb Hct MCV MCH RDW Plt Count Lymph % (Auto) [place] % (Auto) Lymph # [place] # Seg Neutrophils % Seg Neuts % (Manual) Lymphocytes % (Manual) Seg Neutrophils # Seg Neutrophils # Man Lymphocytes # (Manual) Monocytes # (Manual) POC ABG pH POC ABG pCO2 POC ABG pO2 Sodium 135 L Potassium Chloride Carbon Dioxide BUN Creatinine 0.5 L Glucose POC Glucose 61 L 122 H Lactic Acid Uric Acid Calcium 8.2 L Magnesium Total Bilirubin Direct Bilirubin AST ALT Alkaline Phosphatase Ammonia C-Reactive Protein Total Protein Albumin Vitamin B1 Vitamin B12 25-OH Vitamin D Total Free T4 T3 (GILSON) Urine Creatinine Urine Total Protein Acetaminophen 07/04/18 07/05/18 07/06/18 16:44 21:15 11:50 WBC RBC Hgb Hct MCV MCH RDW Plt Count Lymph % (Auto) [place] % (Auto) Lymph # [place] # Seg Neutrophils % Seg Neuts % (Manual) Lymphocytes % (Manual) Seg Neutrophils # Seg Neutrophils # Man Lymphocytes # (Manual) Monocytes # (Manual) POC ABG pH POC ABG pCO2 POC ABG pO2 Sodium Potassium Chloride Carbon Dioxide BUN Creatinine Glucose POC Glucose 124 H 150 H 67 L Lactic Acid Uric Acid Calcium Magnesium Total Bilirubin Direct Bilirubin AST ALT Alkaline Phosphatase Ammonia C-Reactive Protein Total Protein Albumin Vitamin B1 Vitamin B12 25-OH Vitamin D Total Free T4 T3 (GILSON) Urine Creatinine Urine Total Protein Acetaminophen 07/06/18 07/06/18 07/06/18 13:32 16:27 21:13 WBC RBC Hgb Hct MCV MCH RDW Plt Count Lymph % (Auto) [place] % (Auto) Lymph # [place] # Seg Neutrophils % Seg Neuts % (Manual) Lymphocytes % (Manual) Seg Neutrophils # Seg Neutrophils # Man Lymphocytes # (Manual) Monocytes # (Manual) POC ABG pH POC ABG pCO2 POC ABG pO2 Sodium Potassium Chloride Carbon Dioxide BUN Creatinine Glucose POC Glucose 146 H 125 H 69 L Lactic Acid Uric Acid Calcium Magnesium Total Bilirubin Direct Bilirubin AST ALT Alkaline Phosphatase Ammonia C-Reactive Protein Total Protein Albumin Vitamin B1 Vitamin B12 25-OH Vitamin D Total Free T4 T3 (GILSON) Urine Creatinine Urine Total Protein Acetaminophen 07/07/18 12:18 WBC RBC Hgb Hct MCV MCH RDW Plt Count Lymph % (Auto) [place] % (Auto) Lymph # [place] # Seg Neutrophils % Seg Neuts % (Manual) Lymphocytes % (Manual) Seg Neutrophils # Seg Neutrophils # Man Lymphocytes # (Manual) Monocytes # (Manual) POC ABG pH POC ABG pCO2 POC ABG pO2 Sodium Potassium Chloride Carbon Dioxide BUN Creatinine Glucose POC Glucose 132 H Lactic Acid Uric Acid Calcium Magnesium Total Bilirubin Direct Bilirubin AST ALT Alkaline Phosphatase Ammonia C-Reactive Protein Total Protein Albumin Vitamin B1 Vitamin B12 25-OH Vitamin D Total Free T4 T3 (GILSON) Urine Creatinine Urine Total Protein Acetaminophen Allied health notes reviewed: nursing
--- NOTE | 2018-07-07 14:11 | Progress Note ---
Assessment and Plan - Patient Problems (1) Acute on chronic systolic heart failure Current Visit: No Status: Acute Plan to address problem: Medical therapy for severe dilated cardiomyopathy and chronic systolic heart failure. Subjective Date of service: 07/07/18 Principal diagnosis: altered mental status, psychosis, chronic systolic heart failure, Interval history: Patient is comfortable, no new cardiac complaints. Objective Vital Signs Temp Pulse Pulse Pulse Pulse Pulse Resp 07/07/18 10:20 102 H 07/07/18 09:21 97.4 F L 102 H 18 07/07/18 09:06 07/07/18 08:05 102 H 07/07/18 04:30 97.5 F L 100 H 18 07/07/18 01:04 105 H 07/07/18 00:57 98.1 F 60 18 07/07/18 00:31 18 07/06/18 23:31 18 07/06/18 22:15 103 H 103 H 18 07/06/18 22:00 07/06/18 20:40 07/06/18 20:22 105 H 07/06/18 20:19 103 H 07/06/18 20:00 98.6 F 118 H 18 07/06/18 19:58 98.6 F 118 H 18 07/06/18 17:44 67 20 07/06/18 17:24 74 07/06/18 14:29 86 84 Resp Resp BP BP Pulse Ox 07/07/18 10:20 109/73 07/07/18 09:21 109/73 100 07/07/18 09:06 100 07/07/18 08:05 16 07/07/18 04:30 122/73 99 07/07/18 01:04 136/67 07/07/18 00:57 136/67 93 07/07/18 00:31 07/06/18 23:31 07/06/18 22:15 100 07/06/18 22:00 100 07/06/18 20:40 20 07/06/18 20:22 07/06/18 20:19 20 07/06/18 20:00 101/56 100 07/06/18 19:58 101/56 100 07/06/18 17:44 120/72 91 07/06/18 17:24 07/06/18 14:29 16 16 - Physical Examination General: No Apparent Distress, Cachectic HEENT: Positive: PERRL Neck: Positive: trachea midline Cardiac: Positive: Reg Rate and Rhythm Lungs: Positive: Decreased Breath Sounds Neuro: Positive: Grossly Intact Abdomen: Positive: Unremarkable Skin: Positive: Clear Extremities: Absent: edema - Allied health notes Allied health notes reviewed: nursing
--- NOTE | 2018-07-07 15:38 | Progress Note ---
Assessment and Plan /Acute Respiratory failure following Cardiac Arrest - ? PEA from hypoglycemia or Haldol administration- now off the ventilator and on nasal canula /s/p Cardiac arrest after Haldol: listed Haldol as an Allergy/Adverse drug. Severe NICM also contributed to the event I believe. /Severe NICM, ionotrope dependent : - Cardiology recommends Hospice, dobutamine now off by Cardiology - family not in agreement for code status, hospice now pending /Acute on Chronic systolic CHF of EF 20-25%, - patient has been on hospice before, it appears she was discharged from home hospice. 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 Antibiotics discontinued /Persistently elevated Lactic acidosis:-Likely secondary to hypoperfusion- impr oving /Hypokalemia: replace -DVT prophylaxis: Patient is on Eliquis Brief History Patient is 68 yo woman with a history of hypertension, CHF and Atrial fibrillation who was on hospice presented with altered mental status. She was climbing a fence, running wild; therefore, brought to ED. CT head was neg. MRI Brain unremarkable. Patient evaluated by Neuro and psychiatry. She was initially a 1013 but is was rescinded. It appears Neurology believes patient AMS is a psyc hotic disorder but Psychiatry has not really making a definitive diagnosis. During the hospital stay, She received Haldol to obtain CT head but had PEA cardiac arrest on 06/26/18, she received Epinephrine then developed pulseless Ventricular fibrillation and 1 shock via defibrillator was delivered with return of pulse. She was also found to have a very low blood glucose during the cardiac arrest and was treated with IV dextrose. She was intubated during the Code blue and sent to ICU. Cardiology consulted, she is s/p dobutamin drip for severe NICM, now extubated and transferred out off ICU. Plan to d/c SNF. Family undecided about code status, full code for now. Hospitalist Physical GEN: WDWN, NAD, Awake, Alert, confused HEENT: NCAT, EOMI, PERRL, OP Clear NECK: supple, no adenopathy, no thyromegaly, no JVD CVS/HEART: irregular, normal S1S2, pulses present bilaterally CHEST/LUNGS: CTA B, Symmetrical chest expansion, good air entry bilaterally GI/Abdomen: soft, NTND, good bowel sounds, no guarding or rebound /Bladder: no suprapubic tenderness, no CVA or paraspinal tenderness EXT/Skin: no c/c, +edema, no obvious rash MSK: FROM x 4 Neuro: CN 2-12 grossly intact, not following commands Psych: calm Subjective Date of service: 07/07/18 Principal diagnosis: altered mental status, psychosis, chronic systolic heart failure, Interval history: Patient seen and examined, unable to provide any history, per RN no acute issue overnight. Discussed with brother by phone and he again changed the code status to Full code as all family members are not in agreement. Objective - Constitutional Vitals: Vital Signs - 12hr 07/07/18 07/07/18 07/07/18 04:30 08:05 09:06 Temperature 97.5 F L Pulse Rate 100 H Pulse Rate [ 102 H Anterior Bilateral] Respiratory 18 Rate Respiratory 16 Rate [Anterior Bilateral] Blood Pressure 122/73 O2 Sat by Pulse 99 100 Oximetry 07/07/18 07/07/18 09:21 10:20 Temperature 97.4 F L Pulse Rate 102 H 102 H Pulse Rate [ Anterior Bilateral] Respiratory 18 Rate Respiratory Rate [Anterior Bilateral] Blood Pressure 109/73 109/73 O2 Sat by Pulse 100 Oximetry - Labs CBC & Chem 7: 07/04/18 05:36 07/04/18 05:36 Labs: Abnormal lab results 07/06/18 07/06/18 07/07/18 Range/Units 16:27 21:13 12:18 POC Glucose 125 H 69 L 132 H (70-105)
--- NOTE | 2018-07-07 16:53 | Progress Note ---
Subjective - Reason for Consult Consult date: 07/07/18 Reason for consult: Psychiatric Follow-up Evaluation - Chief Complaint Chief complaint: "I'm good. Someone came to take care of me" Patient is a 68 year old female that presented to the emergency room with altered mental status. The patient is known to me. Today the patient is uncooperative during the assessment. Presents less irritable today. She states, " I feel a little drowsy." Responses to questions are inappropriate/not logical. Thought process is disorganized. Paranoid delusions are noted. Confusion noted. Patient is alert and oriented x 1. Patient is medication compliant. No side effects of medications are noted/reported. Mental Status Exam - Vital signs Last Vital Signs Temp 97.4 F L 07/07/18 09:21 Pulse 91 H 07/07/18 15:21 Resp 18 07/07/18 15:21 BP 109/73 07/07/18 10:20 Pulse Ox 100 07/07/18 09:21 - Exam Narrative exam: Mental Status Exam Appearance: cooperative Behavior: poor eye contact Speech: regular rate and loud tone Mood: " I'm good" ; less irritable/labile Affect: flat Thought Process: disorganized Thought Content: no gestures of SI/HI's and AVH's ; + paranoid delusions Motor Activity: laying in the bed Cognition: A/O x 1, with some confusion Insight: poor Judgment: poor Assessment and Plan Impression: Today the patient is uncooperative during the assessment. Elevated LF's. Recommendation/Plan: 1. Gather more collateral information to help determine proper treatment and to R/O a Neuro Cog DO. 2. Continue home medication Zoloft 50 mg PO daily for depression. Attempt to reassess the patient in 24 hours. Recommend Delirium precautions below: 1. Frequently reorient patient and involve him/her in their care (simple explanations of procedures, tests, medications). 2. Lights on and shades open during daytime hours. 3. Write date and goals of care in a visible place. 4. Try to avoid unnecessary interruptions to sleep during nighttime hours. 5. Obtain glasses, hearing aids from home if patient uses these at baseline. 6. Avoid medications that may exacerbate delirium (especially narcotics, benzodiazepines, barbiturates, ambien, lunesta, and medications with excessive anticholinergic properties). 7. Continue 1:1 sitter for safety. Disposition: The patient pending SNF placement per the notes.. Will staff with Dr. Donna Rey.
[2018-07-07] MEDS: LANOXIN PO SCH (17:20)
[2018-07-08] MEDS: LOPRESSOR PO SCH ×3 (01:06→18:09)
[2018-07-08] MEDS: TYLENOL PO PRN (02:21)
[2018-07-08 05:35] LABS: Basophils # (Auto) 0.1 K/mm3 (0.0-0.1); Basophils % (Auto) 0.6 % (0.0-1.8); Eosinophils # (Auto) 0.1 K/mm3 (0.0-0.4); Eosinophils % (Auto) 1.3 % (0.0-4.3); Hematocrit 34.5 % (30.3-42.9); Hemoglobin 11.2 gm/dl (10.1-14.3); Lymphocytes # (Auto) 1.8 K/mm3 (1.2-5.4); Lymphocytes % (Auto) 20.7 % (13.4-35.0); Mean Corpuscular HGB Conc 33 % (30-34); Mean Corpuscular Volume 78 fl (79-97); Monocytes # (Auto) 1.3 K/mm3 (0.0-0.8); Monocytes % (Auto) 14.8 % (0.0-7.3); Platelet Count 237 K/mm3 (140-440); Red Blood Count 4.46 M/mm3 (3.65-5.03); Red Cell Distribution Width 18.2 % (13.2-15.2)
[2018-07-08 05:51] LABS: BUN/Creatinine Ratio 18; Blood Urea Nitrogen 9 mg/dL (7-17); Hemolysis Index 1
[2018-07-08] MEDS: LASIX PO SCH ×2 (06:57→17:57)
--- NOTE | 2018-07-08 08:56 | Progress Note ---
Assessment and Plan - Patient Problems (1) Hyponatremia with decreased serum osmolality Current Visit: Yes Status: Acute Plan to address problem: Likely in the setting of fluid overload. Continues on current diuretic regimen. Cardiology following, now transferred out to telemetry. Overall serum sodium levels are stable Nephrology will sign off at this time. Please call back as needed. (2) Fluid overload Current Visit: Yes Status: Chronic Qualifiers: Hypervolemia type: other Qualified Code(s): E87.79 - Other fluid overload Plan to address problem: Agree with current regimen and diuretic management. Would recommend fluid restrictions and appropriate low-sodium diet given her history of end-stage heart disease and cardiomyopathy. Further management per cardiology. (3) Acute on chronic systolic heart failure Current Visit: No Status: Acute Plan to address problem: Follow up with further recommendations per cardiology. Will continue on current diuretic regimen along with appropriate fluid restrictions and low sodium diet. (4) Altered mental status Current Visit: Yes Status: Acute Plan to address problem: We'll continue to monitor closely. Psychiatry evaluation noted. (5) HTN (hypertension) Current Visit: No Status: Chronic Plan to address problem: Continue on current regimen and will monitor. Subjective Date of service: 07/08/18 Principal diagnosis: altered mental status, psychosis, chronic systolic heart failure, Interval history: No acute changes overnight. Pending SNF placement. Objective - Vital Signs Vital signs: Vital Signs - 12hr 07/07/18 07/07/18 07/07/18 21:31 22:00 23:04 Temperature 97.6 F Pulse Rate 106 H Pulse Rate [ 92 H Anterior Bilateral] Respiratory 18 Rate Respiratory 16 Rate [Anterior Bilateral] Blood Pressure 126/60 O2 Sat by Pulse 96 100 Oximetry 07/08/18 07/08/18 07/08/18 01:06 02:21 04:06 Temperature 98.4 F Pulse Rate 106 H 99 H Pulse Rate [ Anterior Bilateral] Respiratory 18 20 Rate Respiratory Rate [Anterior Bilateral] Blood Pressure 126/60 106/70 O2 Sat by Pulse 100 Oximetry - General Appearance General appearance: chronically ill, frail EENT: ATNC, PERRL Neck: no JVD Respiratory: Present: Decreased Breath Sounds Cardiology: regular, S1S2 Gastrointestinal: normal, normoactive bowel sounds Integumentary: warm and dry Neurologic: confused Musculoskeletal: other (-edema ) - Lab 07/08/18 04:55 07/08/18 04:55 Most recent lab results Calcium 8.0 mg/dL (8.4-10.2) L 07/08/18 04:55 Phosphorus 2.50 mg/dL (2.5-4.5) 06/20/18 07:31 Magnesium 1.50 mg/dL (1.7-2.3) L 07/03/18 08:14 Urine Creatinine 61.7 mg/dL (0.1-20.0) H 06/19/18 Unknown Urine Total Protein 32 mg/dL (5-11.8) H 06/19/18 Unknown - Allied health notes Allied health notes reviewed: nursing Medications & Allergies - Medications Allergies/Adverse Reactions: Allergies Penicillins Allergy (Verified 09/04/17 14:11) Unknown aspirin Adverse Reaction (Verified 09/04/17 14:10) Nausea haloperidol [From Haldol] Adverse Reaction (Verified 07/02/18 14:24) Anaphylaxis NSAIDS (Non-Steroidal Anti-Inflamma Adverse Reaction (Verified 09/04/17 14:10) Nausea Pork/Porcine Containing Products Adverse Reaction (Verified 11/01/17 09:04) Nausea Home Medications: Home Medications Medication Instructions Recorded Confirmed Last Taken Type Apixaban [Eliquis] 5 mg PO DAILY 09/06/17 07/02/18 Unknown History AtorvaSTATin [Lipitor] 20 mg PO DAILY 09/06/17 07/02/18 Unknown History Loperamide HCl [Loperamide] 2 mg PO DAILY 09/06/17 07/02/18 Unknown History Sertraline [Zoloft] 50 mg PO DAILY 09/06/17 07/02/18 10/17/17 10:00 History Sucralfate [Carafate] 1 gm PO DAILY 09/06/17 07/02/18 Unknown History Carvedilol [Coreg] 12.5 mg PO BID #60 tablet 09/08/17 07/02/18 Unknown Rx Lisinopril [Zestril TAB] 5 mg PO QDAY #30 tablet 09/08/17 07/02/18 Unknown Rx Doxycycline [Vibramycin CAP] 100 mg PO Q12HR #10 capsule 11/02/17 07/02/18 Unknown Rx Furosemide [Lasix] 20 mg PO QDAY #30 tablet 11/02/17 07/02/18 Unknown Rx Active Medications: Generic Name Dose Route Start Last Admin Trade Name Freq PRN Reason Stop Dose Admin Acetaminophen 650 mg 06/17/18 03:33 07/08/18 02:21 Tylenol PO 650 mg Q4H PRN Administration Fever >101 Albuterol/Ipratropium 1 ampul 06/27/18 14:00 07/07/18 21:24 Duoneb *Not For Prn Use* IH 1 ampul TIDRT JEANETTE Administration Apixaban 5 mg 06/20/18 16:00 07/07/18 21:40 Eliquis PO 5 mg Q12HR JEANETTE Administration Protocol Atorvastatin Calcium 20 mg 06/19/18 22:00 07/07/18 21:40 Lipitor PO 20 mg QHS JEANETTE Administration Dextrose 50 ml 07/01/18 11:50 D50w (25gm) Syringe IV PRN PRN Hypoglycemia Digoxin 0.125 mg 06/24/18 17:00 07/07/18 17:20 Lanoxin PO 0.125 mg DAILY@1700 [facility] Administration Famotidine 20 mg 06/27/18 12:00 07/07/18 10:17 Pepcid PO 20 mg DAILY [facility] Administration Furosemide 20 mg 07/05/18 18:00 07/08/18 06:57 Lasix PO 20 mg 0600,1800 [facility] Administration Insulin Human Lispro 0 unit 07/01/18 16:30 07/07/18 21:41 Humalog SUB-Q Not Given ACHS [facility] Protocol Lactulose 20 gm 07/04/18 12:00 Cephulac PO Q6HR PRN CONSTIPATION Metoprolol Tartrate 25 mg 06/25/18 09:00 07/08/18 01:06 Lopressor PO 25 mg Q8H JEANETTE Administration Ondansetron HCl 4 mg 06/17/18 03:24 Zofran IV Q8H PRN Nausea And Vomiting Sertraline HCl 50 mg 06/24/18 10:00 07/07/18 10:17 Zoloft PO 50 mg DAILY [facility] Administration
[2018-07-08] MEDS: DUONEB *Not for PRN Use IH SCH ×3 (09:43→20:40)
[2018-07-08] MEDS: PEPCID PO SCH (10:26)
[2018-07-08] MEDS: ZOLOFT PO SCH (10:26)
[2018-07-08] MEDS: ELIQUIS PO SCH ×2 (10:28→21:48)
[2018-07-08] MEDS: HumaLOG SUB-Q SCH ×3 (10:50→21:49)
--- NOTE | 2018-07-08 13:46 | Progress Note ---
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 Bili Likely congestive hepatopathy, Severe protein calorie malnutrition Hypokalemia -ABGs and CXR prn -Anticoagulated on Eliquis -Supplemental oxygen to keep O2 sats>90% -Accuchecks with glycemic control Target blood glucose of 140-180mg/dl -Cardioprotective measures, heart failure measures -Psychosis management per Psych services -PT/OT as tolerated -Aspiration precautions -Glycemic control -Influenza and pneumonia vaccinations per protocol -Continue all other care per primary service Discharge planning CONDITION: FAIR PROGNOSIS: POOR INTERMEDIATE CODE STATUS: DNAR Subjective Date of service: 07/08/18 Principal diagnosis: altered mental status, psychosis, chronic systolic heart failure, Interval history: Patient is seen today for: s/p Cardiopulmonary arrest; acute hypoxemic resp iraotry failure; Cardiomyopathy; Psychosis Seen and examined at bedside; 24-hour events reviewed; nursing and respiratory care staff consulted; Vitals, labs, medications, chart reviewed; no adverse overnight events reported to me; On going agitation, remains in restrains.. Intermittent confusion. Sitting up in bed Denies any chest pain, no shortness of breath, on oxygen at 2LNC Objective Vital Signs - 12hr 07/08/18 07/08/18 07/08/18 02:21 04:06 09:40 Temperature 98.4 F Pulse Rate 99 H Pulse Rate [ 100 H Anterior Bilateral] Respiratory 18 20 Rate Respiratory 18 Rate [Anterior Bilateral] Blood Pressure 106/70 O2 Sat by Pulse 100 Oximetry 07/08/18 07/08/18 07/08/18 09:44 10:22 10:31 Temperature 98.1 F Pulse Rate 97 H 96 H Pulse Rate [ Anterior Bilateral] Respiratory 20 Rate Respiratory Rate [Anterior Bilateral] Blood Pressure 114/85 114/85 O2 Sat by Pulse 100 100 Oximetry Constitutional: no acute distress, asleep, other (Confusing at times.) Eyes: non-icteric, other (Pupils 4mm, sluggichly reacting to light) ENT: oropharynx dry, other (extubated) Neck: supple, no lymphadenopathy, no JVD, other (no thyromegaly) Effort: normal Ascultation: Bilateral: diminished breath sounds, rales Percussion: Bilateral: not dull Cardiovascular: irregular rhythm, other (S1,S2,) Gastrointestinal: normoactive bowel sounds, soft, non-tender, non-distended Integumentary: rash (exematoid rash to upper chest) Extremities: no cyanosis, no edema, pulses normal, no ischemia or petechiae Neurologic: normal mental status, non-focal exam (grossly), pupils equal and round, CN II-XII normal Psychiatric: depressed CBC and BMP: 07/11/18 03:22 07/11/18 03:22 ABG, PT/INR, D-dimer: ABG POC ABG pH 7.552 (7.35-7.45) H 06/28/18 10:53 POC ABG pCO2 40.8 (35-45) 06/28/18 10:53 POC ABG pO2 83 (80-105) 06/28/18 10:53 POC ABG HCO3 35.9 (22-26 mml/L) 06/28/18 10:53 POC ABG Total CO2 37 (23-27mmol/L) 06/28/18 10:53 POC ABG O2 Sat 97 06/28/18 10:53 Abnormal lab findings: Abnormal Labs 06/16/18 06/16/18 06/16/18 21:05 21:43 21:43 WBC RBC Hgb Hct MCV MCH RDW Plt Count Lymph % (Auto) [place] % (Auto) Lymph # [place] # Seg Neutrophils % Seg Neuts % (Manual) Lymphocytes % (Manual) Seg Neutrophils # Seg Neutrophils # Man Lymphocytes # (Manual) Monocytes # (Manual) POC ABG pH POC ABG pCO2 POC ABG pO2 Sodium 129 L Potassium Chloride 95.3 L Carbon Dioxide 14 L BUN 23 H Creatinine Glucose 146 H POC Glucose < 40 L Lactic Acid Uric Acid Calcium Magnesium Total Bilirubin Direct Bilirubin AST ALT Alkaline Phosphatase Ammonia C-Reactive Protein Total Protein Albumin Vitamin B1 Vitamin B12 25-OH Vitamin D Total Free T4 T3 (GILSON) Urine Creatinine Urine Total Protein Acetaminophen < 5.0 L 06/16/18 06/16/18 06/16/18 21:43 21:43 22:27 WBC RBC 5.70 H Hgb Hct 44.6 H MCV 78 L MCH 25 L RDW 18.7 H Plt Count Lymph % (Auto) [place] % (Auto) Lymph # [place] # Seg Neutrophils % 78.8 H Seg Neuts % (Manual) Lymphocytes % (Manual) Seg Neutrophils # Seg Neutrophils # Man Lymphocytes # (Manual) Monocytes # (Manual) POC ABG pH POC ABG pCO2 POC ABG pO2 Sodium Potassium Chloride Carbon Dioxide BUN Creatinine Glucose POC Glucose 121 H Lactic Acid Uric Acid Calcium Magnesium Total Bilirubin Direct Bilirubin AST ALT Alkaline Phosphatase Ammonia C-Reactive Protein Total Protein Albumin Vitamin B1 Vitamin B12 25-OH Vitamin D Total Free T4 1.87 H T3 (GILSON) Urine Creatinine Urine Total Protein Acetaminophen 06/16/18 06/16/18 06/17/18 22:33 23:43 03:56 WBC RBC Hgb Hct MCV MCH RDW Plt Count Lymph % (Auto) [place] % (Auto) Lymph # [place] # Seg Neutrophils % Seg Neuts % (Manual) Lymphocytes % (Manual) Seg Neutrophils # Seg Neutrophils # Man Lymphocytes # (Manual) Monocytes # (Manual) POC ABG pH POC ABG pCO2 POC ABG pO2 Sodium Potassium Chloride Carbon Dioxide BUN Creatinine Glucose POC Glucose Lactic Acid 4.40 H* 4.30 H* 3.10 H* Uric Acid Calcium Magnesium Total Bilirubin Direct Bilirubin AST ALT Alkaline Phosphatase Ammonia C-Reactive Protein Total Protein Albumin Vitamin B1 Vitamin B12 25-OH Vitamin D Total Free T4 T3 (GILSON) Urine Creatinine Urine Total Protein Acetaminophen 06/17/18 06/17/18 06/17/18 08:35 08:40 11:00 WBC RBC Hgb Hct MCV MCH RDW Plt Count Lymph % (Auto) [place] % (Auto) Lymph # [place] # Seg Neutrophils % Seg Neuts % (Manual) Lymphocytes % (Manual) Seg Neutrophils # Seg Neutrophils # Man Lymphocytes # (Manual) Monocytes # (Manual) POC ABG pH POC ABG pCO2 POC ABG pO2 Sodium Potassium Chloride Carbon Dioxide BUN Creatinine Glucose POC Glucose 56 L Lactic Acid 2.70 H* 3.40 H* Uric Acid Calcium Magnesium Total Bilirubin Direct Bilirubin AST ALT Alkaline Phosphatase Ammonia C-Reactive Protein Total Protein Albumin Vitamin B1 Vitamin B12 25-OH Vitamin D Total Free T4 T3 (GILSON) Urine Creatinine Urine Total Protein Acetaminophen 06/17/18 06/17/18 06/17/18 11:00 11:00 11:00 WBC 11.9 H RBC 5.25 H Hgb Hct MCV MCH 25 L RDW 18.6 H Plt Count Lymph % (Auto) [place] % (Auto) Lymph # [place] # Seg Neutrophils % Seg Neuts % (Manual) Lymphocytes % (Manual) Seg Neutrophils # Seg Neutrophils # Man Lymphocytes # (Manual) Monocytes # (Manual) POC ABG pH POC ABG pCO2 POC ABG pO2 Sodium 128 L Potassium Chloride 95.6 L Carbon Dioxide 15 L BUN 22 H Creatinine Glucose 110 H POC Glucose Lactic Acid Uric Acid Calcium 8.3 L Magnesium Total Bilirubin Direct Bilirubin 1.6 H AST 66 H ALT Alkaline Phosphatase 178 H Ammonia C-Reactive Protein Total Protein 4.7 L Albumin 2.4 L Vitamin B1 Vitamin B12 25-OH Vitamin D Total Free T4 T3 (GILSON) Urine Creatinine Urine Total Protein Acetaminophen 06/17/18 06/17/18 06/17/18 15:08 15:08 23:00 WBC RBC Hgb Hct MCV MCH RDW Plt Count Lymph % (Auto) [place] % (Auto) Lymph # [place] # Seg Neutrophils % Seg Neuts % (Manual) Lymphocytes % (Manual) Seg Neutrophils # Seg Neutrophils # Man Lymphocytes # (Manual) Monocytes # (Manual) POC ABG pH POC ABG pCO2 POC ABG pO2 Sodium Potassium Chloride Carbon Dioxide BUN Creatinine Glucose POC Glucose Lactic Acid 4.00 H* Uric Acid Calcium Magnesium Total Bilirubin Direct Bilirubin AST ALT Alkaline Phosphatase Ammonia 10.0 L C-Reactive Protein Total Protein Albumin Vitamin B1 Vitamin B12 25-OH Vitamin D Total Free T4 1.53 H T3 (GILSON) Urine Creatinine Urine Total Protein Acetaminophen 06/18/18 06/18/18 06/18/18 08:59 08:59 12:49 WBC RBC 5.29 H Hgb Hct MCV 78 L MCH 25 L RDW 18.4 H Plt Count Lymph % (Auto) [place] % (Auto) Lymph # [place] # Seg Neutrophils % Seg Neuts % (Manual) Lymphocytes % (Manual) Seg Neutrophils # Seg Neutrophils # Man Lymphocytes # (Manual) Monocytes # (Manual) POC ABG pH POC ABG pCO2 POC ABG pO2 Sodium 128 L Potassium 5.9 H D Chloride 96.1 L Carbon Dioxide 20 L BUN 22 H Creatinine Glucose POC Glucose 60 L Lactic Acid Uric Acid Calcium Magnesium Total Bilirubin Direct Bilirubin AST ALT Alkaline Phosphatase Ammonia C-Reactive Protein Total Protein Albumin Vitamin B1 Vitamin B12 25-OH Vitamin D Total Free T4 T3 (GILSON) Urine Creatinine Urine Total Protein Acetaminophen 06/18/18 06/19/18 06/19/18 21:28 12:14 13:23 WBC RBC Hgb Hct MCV MCH RDW Plt Count Lymph % (Auto) [place] % (Auto) Lymph # [place] # Seg Neutrophils % Seg Neuts % (Manual) Lymphocytes % (Manual) Seg Neutrophils # Seg Neutrophils # Man Lymphocytes # (Manual) Monocytes # (Manual) POC ABG pH POC ABG pCO2 POC ABG pO2 Sodium 122 L Potassium 5.4 H Chloride 95.0 L Carbon Dioxide 13 L D BUN 21 H Creatinine Glucose 119 H POC Glucose 114 H Lactic Acid Uric Acid Calcium 8.3 L Magnesium Total Bilirubin Direct Bilirubin AST ALT Alkaline Phosphatase Ammonia C-Reactive Protein Total Protein Albumin Vitamin B1 Vitamin B12 25-OH Vitamin D Total Free T4 T3 (GILSON) Urine Creatinine Urine Total Protein Acetaminophen 06/19/18 06/19/18 06/19/18 14:47 16:38 22:42 WBC RBC 5.51 H Hgb Hct 45.3 H MCV MCH 25 L RDW 18.6 H Plt Count Lymph % (Auto) [place] % (Auto) Lymph # [place] # Seg Neutrophils % Seg Neuts % (Manual) Lymphocytes % (Manual) Seg Neutrophils # Seg Neutrophils # Man Lymphocytes # (Manual) Monocytes # (Manual) POC ABG pH POC ABG pCO2 POC ABG pO2 Sodium Potassium Chloride Carbon Dioxide BUN Creatinine Glucose POC Glucose 108 H 49 L Lactic Acid Uric Acid Calcium Magnesium Total Bilirubin Direct Bilirubin AST ALT Alkaline Phosphatase Ammonia C-Reactive Protein Total Protein Albumin Vitamin B1 Vitamin B12 25-OH Vitamin D Total Free T4 T3 (GILSON) Urine Creatinine Urine Total Protein Acetaminophen 06/19/18 06/20/18 06/20/18 Unknown 07:31 16:51 WBC RBC Hgb Hct MCV MCH RDW Plt Count Lymph % (Auto) [place] % (Auto) Lymph # [place] # Seg Neutrophils % Seg Neuts % (Manual) Lymphocytes % (Manual) Seg Neutrophils # Seg Neutrophils # Man Lymphocytes # (Manual) Monocytes # (Manual) POC ABG pH POC ABG pCO2 POC ABG pO2 Sodium 132 L D Potassium Chloride 94.3 L Carbon Dioxide BUN 20 H Creatinine Glucose POC Glucose Lactic Acid Uric Acid 8.6 H Calcium Magnesium 1.30 L Total Bilirubin Direct Bilirubin AST ALT Alkaline Phosphatase Ammonia C-Reactive Protein Total Protein Albumin Vitamin B1 Vitamin B12 25-OH Vitamin D Total Free T4 T3 (GILSON) 58 L Urine Creatinine 61.7 H Urine Total Protein 32 H Acetaminophen 06/20/18 06/20/18 06/21/18 20:53 20:53 16:27 WBC RBC Hgb Hct MCV MCH RDW Plt Count Lymph % (Auto) [place] % (Auto) Lymph # [place] # Seg Neutrophils % Seg Neuts % (Manual) Lymphocytes % (Manual) Seg Neutrophils # Seg Neutrophils # Man Lymphocytes # (Manual) Monocytes # (Manual) POC ABG pH POC ABG pCO2 POC ABG pO2 Sodium Potassium Chloride Carbon Dioxide BUN Creatinine Glucose POC Glucose Lactic Acid Uric Acid 9.2 H Calcium Magnesium Total Bilirubin Direct Bilirubin AST ALT Alkaline Phosphatase Ammonia C-Reactive Protein Total Protein Albumin Vitamin B1 Vitamin B12 1598 H 25-OH Vitamin D Total 10 L Free T4 T3 (GILSON) Urine Creatinine Urine Total Protein Acetaminophen 06/21/18 06/21/18 06/21/18 16:27 16:27 16:27 WBC RBC 5.26 H Hgb Hct MCV 77 L MCH 26 L RDW 17.7 H Plt Count Lymph % (Auto) [place] % (Auto) Lymph # [place] # Seg Neutrophils % Seg Neuts % (Manual) Lymphocytes % (Manual) Seg Neutrophils # Seg Neutrophils # Man Lymphocytes # (Manual) Monocytes # (Manual) POC ABG pH POC ABG pCO2 POC ABG pO2 Sodium 130 L Potassium Chloride 95.6 L Carbon Dioxide BUN 24 H Creatinine Glucose POC Glucose Lactic Acid Uric Acid Calcium Magnesium Total Bilirubin Direct Bilirubin AST ALT Alkaline Phosphatase Ammonia C-Reactive Protein Total Protein Albumin Vitamin B1 <6 L Vitamin B12 25-OH Vitamin D Total Free T4 T3 (GILSON) Urine Creatinine Urine Total Protein Acetaminophen 06/21/18 06/22/18 06/23/18 21:44 21:42 14:54 WBC RBC 5.07 H Hgb Hct MCV 78 L MCH 25 L RDW 18.5 H Plt Count Lymph % (Auto) [place] % (Auto) 12.3 H Lymph # 1.0 L [place] # Seg Neutrophils % Seg Neuts % (Manual) Lymphocytes % (Manual) Seg Neutrophils # Seg Neutrophils # Man Lymphocytes # (Manual) Monocytes # (Manual) POC ABG pH POC ABG pCO2 POC ABG pO2 Sodium Potassium Chloride Carbon Dioxide BUN Creatinine Glucose POC Glucose 126 H 114 H Lactic Acid Uric Acid Calcium Magnesium Total Bilirubin Direct Bilirubin AST ALT Alkaline Phosphatase Ammonia C-Reactive Protein Total Protein Albumin Vitamin B1 Vitamin B12 25-OH Vitamin D Total Free T4 T3 (GILSON) Urine Creatinine Urine Total Protein Acetaminophen 06/23/18 06/25/18 06/25/18 14:54 00:00 00:00 WBC 3.6 L RBC 5.31 H Hgb Hct MCV 77 L MCH 26 L RDW 19.0 H Plt Count Lymph % (Auto) [place] % (Auto) 10.2 H Lymph # [place] # Seg Neutrophils % Seg Neuts % (Manual) Lymphocytes % (Manual) Seg Neutrophils # Seg Neutrophils # Man Lymphocytes # (Manual) Monocytes # (Manual) POC ABG pH POC ABG pCO2 POC ABG pO2 Sodium 132 L 131 L Potassium 3.5 L Chloride 91.5 L 93.5 L Carbon Dioxide BUN 19 H 21 H Creatinine Glucose POC Glucose Lactic Acid Uric Acid Calcium 8.1 L Magnesium Total Bilirubin 2.80 H 2.70 H Direct Bilirubin AST 52 H 81 H ALT Alkaline Phosphatase 231 H 243 H Ammonia C-Reactive Protein Total Protein 5.5 L 5.5 L Albumin 2.8 L 2.7 L Vitamin B1 Vitamin B12 25-OH Vitamin D Total Free T4 T3 (GILSON) Urine Creatinine Urine Total Protein Acetaminophen 06/25/18 06/25/18 06/25/18 16:02 16:02 16:18 WBC 3.9 L RBC 5.78 H Hgb 14.6 H Hct 45.4 H MCV MCH 25 L RDW 19.2 H Plt Count Lymph % (Auto) [place] % (Auto) Lymph # [place] # Seg Neutrophils % Seg Neuts % (Manual) Lymphocytes % (Manual) Seg Neutrophils # Seg Neutrophils # Man Lymphocytes # (Manual) 1.1 L Monocytes # (Manual) POC ABG pH POC ABG pCO2 POC ABG pO2 Sodium 131 L Potassium Chloride 90.0 L Carbon Dioxide BUN 25 H Creatinine 1.4 H Glucose POC Glucose Lactic Acid 4.00 H* Uric Acid Calcium Magnesium Total Bilirubin 3.10 H Direct Bilirubin AST 68 H ALT Alkaline Phosphatase 296 H Ammonia C-Reactive Protein Total Protein 6.1 L Albumin 3.3 L Vitamin B1 Vitamin B12 25-OH Vitamin D Total Free T4 T3 (GILSON) Urine Creatinine Urine Total Protein Acetaminophen 06/25/18 06/26/18 06/26/18 21:06 11:33 11:37 WBC RBC Hgb Hct MCV MCH 26 L RDW 19.2 H Plt Count 139 L Lymph % (Auto) [place] % (Auto) Lymph # [place] # Seg Neutrophils % Seg Neuts % (Manual) 85.0 H Lymphocytes % (Manual) 6.0 L Seg Neutrophils # Seg Neutrophils # Man 8.0 H Lymphocytes # (Manual) 0.6 L Monocytes # (Manual) POC ABG pH POC ABG pCO2 POC ABG pO2 Sodium Potassium Chloride Carbon Dioxide BUN Creatinine Glucose POC Glucose < 40 L Lactic Acid 6.40 H* Uric Acid Calcium Magnesium Total Bilirubin Direct Bilirubin AST ALT Alkaline Phosphatase Ammonia C-Reactive Protein Total Protein Albumin Vitamin B1 Vitamin B12 25-OH Vitamin D Total Free T4 T3 (GILSON) Urine Creatinine Urine Total Protein Acetaminophen 06/26/18 06/26/18 06/26/18 11:37 11:51 11:59 WBC RBC Hgb Hct MCV MCH RDW Plt Count Lymph % (Auto) [place] % (Auto) Lymph # [place] # Seg Neutrophils % Seg Neuts % (Manual) Lymphocytes % (Manual) Seg Neutrophils # Seg Neutrophils # Man Lymphocytes # (Manual) Monocytes # (Manual) POC ABG pH 7.029 L POC ABG pCO2 POC ABG pO2 73 L Sodium 129 L Potassium Chloride 87.0 L Carbon Dioxide 11 L D BUN 31 H Creatinine 1.9 H Glucose 206 H POC Glucose 253 H Lactic Acid Uric Acid Calcium 7.9 L Magnesium Total Bilirubin 2.90 H Direct Bilirubin AST 98 H ALT Alkaline Phosphatase 196 H Ammonia C-Reactive Protein Total Protein 4.3 L D Albumin 2.2 L Vitamin B1 Vitamin B12 25-OH Vitamin D Total Free T4 T3 (GILSON) Urine Creatinine Urine Total Protein Acetaminophen 06/26/18 06/26/18 06/26/18 14:54 15:08 15:10 WBC 14.2 H RBC 5.66 H Hgb 14.5 H Hct 45.6 H D MCV MCH 26 L RDW 19.4 H Plt Count Lymph % (Auto) [place] % (Auto) Lymph # [place] # Seg Neutrophils % Seg Neuts % (Manual) 88.0 H Lymphocytes % (Manual) 5.0 L Seg Neutrophils # Seg Neutrophils # Man 12.5 H Lymphocytes # (Manual) 0.7 L Monocytes # (Manual) 0.9 H POC ABG pH POC ABG pCO2 POC ABG pO2 Sodium Potassium Chloride Carbon Dioxide BUN Creatinine Glucose POC Glucose 172 H Lactic Acid 11.90 H* Uric Acid Calcium Magnesium Total Bilirubin Direct Bilirubin AST ALT Alkaline Phosphatase Ammonia C-Reactive Protein Total Protein Albumin Vitamin B1 Vitamin B12 25-OH Vitamin D Total Free T4 T3 (GILSON) Urine Creatinine Urine Total Protein Acetaminophen 06/26/18 06/26/18 06/26/18 16:01 18:47 20:55 WBC RBC Hgb Hct MCV MCH RDW Plt Count Lymph % (Auto) [place] % (Auto) Lymph # [place] # Seg Neutrophils % Seg Neuts % (Manual) Lymphocytes % (Manual) Seg Neutrophils # Seg Neutrophils # Man Lymphocytes # (Manual) Monocytes # (Manual) POC ABG pH POC ABG pCO2 34.0 L POC ABG pO2 Sodium Potassium Chloride Carbon Dioxide BUN Creatinine Glucose POC Glucose 183 H 131 H Lactic Acid Uric Acid Calcium Magnesium Total Bilirubin Direct Bilirubin AST ALT Alkaline Phosphatase Ammonia C-Reactive Protein Total Protein Albumin Vitamin B1 Vitamin B12 25-OH Vitamin D Total Free T4 T3 (GILSON) Urine Creatinine Urine Total Protein Acetaminophen 06/26/18 06/27/18 06/27/18 21:55 09:29 09:29 WBC RBC Hgb Hct MCV MCH RDW Plt Count Lymph % (Auto) [place] % (Auto) Lymph # [place] # Seg Neutrophils % Seg Neuts % (Manual) Lymphocytes % (Manual) Seg Neutrophils # Seg Neutrophils # Man Lymphocytes # (Manual) Monocytes # (Manual) POC ABG pH POC ABG pCO2 POC ABG pO2 Sodium 135 L 135 L Potassium 3.5 L Chloride 91.7 L 91.2 L Carbon Dioxide BUN 35 H 37 H Creatinine 2.3 H 2.1 H Glucose 147 H 104 H POC Glucose Lactic Acid Uric Acid Calcium 8.3 L 8.1 L Magnesium Total Bilirubin 3.50 H Direct Bilirubin AST 218 H ALT 57 H Alkaline Phosphatase 197 H Ammonia C-Reactive Protein Total Protein 5.0 L Albumin 2.3 L Vitamin B1 Vitamin B12 25-OH Vitamin D Total Free T4 1.78 H T3 (GILSON) Urine Creatinine Urine Total Protein Acetaminophen 06/27/18 06/27/18 06/27/18 09:29 09:29 10:00 WBC 16.3 H RBC 5.44 H Hgb Hct MCV 76 L MCH 25 L RDW 18.3 H Plt Count Lymph % (Auto) [place] % (Auto) Lymph # [place] # Seg Neutrophils % Seg Neuts % (Manual) 91.0 H Lymphocytes % (Manual) 3.0 L Seg Neutrophils # Seg Neutrophils # Man 14.8 H Lymphocytes # (Manual) 0.5 L Monocytes # (Manual) 1.0 H POC ABG pH POC ABG pCO2 POC ABG pO2 Sodium Potassium Chloride Carbon Dioxide BUN Creatinine Glucose POC Glucose 106 H Lactic Acid 4.00 H* Uric Acid Calcium Magnesium Total Bilirubin Direct Bilirubin AST ALT Alkaline Phosphatase Ammonia C-Reactive Protein Total Protein Albumin Vitamin B1 Vitamin B12 25-OH Vitamin D Total Free T4 T3 (GILSON) Urine Creatinine Urine Total Protein Acetaminophen 06/27/18 06/27/18 06/27/18 11:51 12:50 13:39 WBC RBC Hgb Hct MCV MCH RDW Plt Count Lymph % (Auto) [place] % (Auto) Lymph # [place] # Seg Neutrophils % Seg Neuts % (Manual) Lymphocytes % (Manual) Seg Neutrophils # Seg Neutrophils # Man Lymphocytes # (Manual) Monocytes # (Manual) POC ABG pH 7.584 H POC ABG pCO2 32.8 L POC ABG pO2 109 H Sodium Potassium Chloride Carbon Dioxide BUN Creatinine Glucose POC Glucose 112 H Lactic Acid 3.20 H* Uric Acid Calcium Magnesium Total Bilirubin Direct Bilirubin AST ALT Alkaline Phosphatase Ammonia C-Reactive Protein Total Protein Albumin Vitamin B1 Vitamin B12 25-OH Vitamin D Total Free T4 T3 (GILSON) Urine Creatinine Urine Total Protein Acetaminophen 06/27/18 06/27/18 06/27/18 19:31 21:50 23:10 WBC RBC Hgb Hct MCV MCH RDW Plt Count Lymph % (Auto) [place] % (Auto) Lymph # [place] # Seg Neutrophils % Seg Neuts % (Manual) Lymphocytes % (Manual) Seg Neutrophils # Seg Neutrophils # Man Lymphocytes # (Manual) Monocytes # (Manual) POC ABG pH POC ABG pCO2 POC ABG pO2 Sodium Potassium Chloride Carbon Dioxide BUN Creatinine Glucose POC Glucose Lactic Acid 2.40 H* 2.30 H* 2.30 H* Uric Acid Calcium Magnesium Total Bilirubin Direct Bilirubin AST ALT Alkaline Phosphatase Ammonia C-Reactive Protein Total Protein Albumin Vitamin B1 Vitamin B12 25-OH Vitamin D Total Free T4 T3 (GILSON) Urine Creatinine Urine Total Protein Acetaminophen 06/28/18 06/28/18 06/28/18 02:35 05:00 05:00 WBC RBC Hgb Hct MCV MCH RDW Plt Count Lymph % (Auto) [place] % (Auto) Lymph # [place] # Seg Neutrophils % Seg Neuts % (Manual) Lymphocytes % (Manual) Seg Neutrophils # Seg Neutrophils # Man Lymphocytes # (Manual) Monocytes # (Manual) POC ABG pH POC ABG pCO2 POC ABG pO2 Sodium 134 L Potassium 2.6 L* D Chloride 92.3 L Carbon Dioxide 32 H BUN 34 H Creatinine 1.8 H Glucose 127 H POC Glucose Lactic Acid 2.20 H* 2.30 H* Uric Acid Calcium 7.5 L Magnesium Total Bilirubin 3.50 H Direct Bilirubin AST 226 H ALT 60 H Alkaline Phosphatase 172 H Ammonia C-Reactive Protein Total Protein 4.2 L Albumin 2.0 L Vitamin B1 Vitamin B12 25-OH Vitamin D Total Free T4 T3 (GILSON) Urine Creatinine Urine Total Protein Acetaminophen 06/28/18 06/28/18 06/28/18 05:00 08:30 08:30 WBC 15.7 H RBC Hgb Hct MCV 77 L MCH 25 L RDW 18.5 H Plt Count 112 L Lymph % (Auto) 6.0 L [place] % (Auto) 10.0 H Lymph # 0.9 L [place] # 1.6 H Seg Neutrophils % 83.4 H Seg Neuts % (Manual) Lymphocytes % (Manual) Seg Neutrophils # 13.1 H Seg Neutrophils # Man Lymphocytes # (Manual) Monocytes # (Manual) POC ABG pH POC ABG pCO2 POC ABG pO2 Sodium Potassium Chloride Carbon Dioxide BUN Creatinine Glucose POC Glucose Lactic Acid 2.40 H* Uric Acid Calcium Magnesium Total Bilirubin Direct Bilirubin AST ALT Alkaline Phosphatase Ammonia C-Reactive Protein 4.80 H Total Protein Albumin Vitamin B1 Vitamin B12 25-OH Vitamin D Total Free T4 T3 (GILSON) Urine Creatinine Urine Total Protein Acetaminophen 06/28/18 06/28/18 06/28/18 10:53 11:23 18:35 WBC RBC Hgb Hct MCV MCH RDW Plt Count Lymph % (Auto) [place] % (Auto) Lymph # [place] # Seg Neutrophils % Seg Neuts % (Manual) Lymphocytes % (Manual) Seg Neutrophils # Seg Neutrophils # Man Lymphocytes # (Manual) Monocytes # (Manual) POC ABG pH 7.552 H POC ABG pCO2 POC ABG pO2 Sodium Potassium 3.1 L Chloride Carbon Dioxide BUN Creatinine Glucose POC Glucose 122 H Lactic Acid Uric Acid Calcium Magnesium Total Bilirubin Direct Bilirubin AST ALT Alkaline Phosphatase Ammonia C-Reactive Protein Total Protein Albumin Vitamin B1 Vitamin B12 25-OH Vitamin D Total Free T4 T3 (GILSON) Urine Creatinine Urine Total Protein Acetaminophen 06/29/18 06/29/18 06/29/18 06:40 06:40 19:44 WBC 14.6 H RBC Hgb Hct MCV 77 L MCH 25 L RDW 19.3 H Plt Count 88 L Lymph % (Auto) [place] % (Auto) Lymph # [place] # Seg Neutrophils % Seg Neuts % (Manual) Lymphocytes % (Manual) Seg Neutrophils # Seg Neutrophils # Man Lymphocytes # (Manual) Monocytes # (Manual) POC ABG pH POC ABG pCO2 POC ABG pO2 Sodium Potassium 2.7 L* Chloride 95.3 L Carbon Dioxide 32 H BUN 25 H Creatinine Glucose 145 H POC Glucose 59 L Lactic Acid Uric Acid Calcium 7.9 L Magnesium Total Bilirubin 3.60 H Direct Bilirubin AST 213 H ALT Alkaline Phosphatase 176 H Ammonia C-Reactive Protein Total Protein 4.8 L Albumin 2.2 L Vitamin B1 Vitamin B12 25-OH Vitamin D Total Free T4 T3 (GILSON) Urine Creatinine Urine Total Protein Acetaminophen 06/29/18 06/30/18 06/30/18 20:43 02:37 04:45 WBC RBC Hgb Hct MCV MCH RDW Plt Count Lymph % (Auto) [place] % (Auto) Lymph # [place] # Seg Neutrophils % Seg Neuts % (Manual) Lymphocytes % (Manual) Seg Neutrophils # Seg Neutrophils # Man Lymphocytes # (Manual) Monocytes # (Manual) POC ABG pH POC ABG pCO2 POC ABG pO2 Sodium Potassium 3.1 L 2.8 L* Chloride Carbon Dioxide 31 H BUN 18 H Creatinine Glucose POC Glucose 59 L Lactic Acid Uric Acid Calcium 8.0 L Magnesium Total Bilirubin 3.70 H Direct Bilirubin AST 216 H ALT 63 H Alkaline Phosphatase 163 H Ammonia C-Reactive Protein Total Protein 4.5 L Albumin 2.1 L Vitamin B1 Vitamin B12 25-OH Vitamin D Total Free T4 T3 (GILSON) Urine Creatinine Urine Total Protein Acetaminophen 06/30/18 06/30/18 07/01/18 04:45 06:24 04:39 WBC 12.1 H RBC Hgb Hct MCV 78 L 77 L MCH 25 L 25 L RDW 19.0 H 19.3 H Plt Count 91 L 77 L Lymph % (Auto) [place] % (Auto) Lymph # [place] # Seg Neutrophils % Seg Neuts % (Manual) Lymphocytes % (Manual) Seg Neutrophils # Seg Neutrophils # Man Lymphocytes # (Manual) Monocytes # (Manual) POC ABG pH POC ABG pCO2 POC ABG pO2 Sodium Potassium Chloride Carbon Dioxide BUN Creatinine Glucose POC Glucose 63 L Lactic Acid Uric Acid Calcium Magnesium Total Bilirubin Direct Bilirubin AST ALT Alkaline Phosphatase Ammonia C-Reactive Protein Total Protein Albumin Vitamin B1 Vitamin B12 25-OH Vitamin D Total Free T4 T3 (GILSON) Urine Creatinine Urine Total Protein Acetaminophen 07/01/18 07/01/18 07/02/18 04:39 11:12 05:23 WBC RBC Hgb Hct MCV 77 L MCH 25 L RDW 19.2 H Plt Count 78 L Lymph % (Auto) [place] % (Auto) Lymph # [place] # Seg Neutrophils % Seg Neuts % (Manual) Lymphocytes % (Manual) Seg Neutrophils # Seg Neutrophils # Man Lymphocytes # (Manual) Monocytes # (Manual) POC ABG pH POC ABG pCO2 POC ABG pO2 Sodium Potassium 3.5 L D Chloride Carbon Dioxide BUN Creatinine Glucose 109 H POC Glucose 206 H Lactic Acid Uric Acid Calcium 8.1 L Magnesium Total Bilirubin 3.90 H Direct Bilirubin AST 163 H ALT 60 H Alkaline Phosphatase 166 H Ammonia C-Reactive Protein Total Protein 4.5 L Albumin 2.0 L Vitamin B1 Vitamin B12 25-OH Vitamin D Total Free T4 T3 ([facility]ILSON) Urine Creatinine Urine Total Protein Acetaminophen 07/02/18 07/02/18 07/03/18 05:23 12:18 08:14 WBC RBC Hgb Hct MCV 76 L MCH 25 L RDW 19.0 H Plt Count 84 L Lymph % (Auto) [place] % (Auto) Lymph # [place] # Seg Neutrophils % Seg Neuts % (Manual) Lymphocytes % (Manual) Seg Neutrophils # Seg Neutrophils # Man Lymphocytes # (Manual) Monocytes # (Manual) POC ABG pH POC ABG pCO2 POC ABG pO2 Sodium 135 L Potassium 3.4 L Chloride Carbon Dioxide BUN Creatinine 0.6 L Glucose POC Glucose 144 H Lactic Acid Uric Acid Calcium 8.3 L Magnesium Total Bilirubin Direct Bilirubin AST ALT Alkaline Phosphatase Ammonia C-Reactive Protein Total Protein Albumin Vitamin B1 Vitamin B12 25-OH Vitamin D Total Free T4 T3 ([facility]IL[facility]) Urine Creatinine Urine Total Protein Acetaminophen 07/03/18 07/03/18 07/04/18 08:14 16:33 05:36 WBC RBC Hgb Hct MCV 77 L MCH 25 L RDW 18.5 H Plt Count 103 L Lymph % (Auto) [place] % (Auto) Lymph # [place] # Seg Neutrophils % Seg Neuts % (Manual) Lymphocytes % (Manual) Seg Neutrophils # Seg Neutrophils # Man Lymphocytes # (Manual) Monocytes # (Manual) POC ABG pH POC ABG pCO2 POC ABG pO2 Sodium 135 L Potassium Chloride 97.7 L Carbon Dioxide BUN Creatinine 0.5 L Glucose POC Glucose 69 L Lactic Acid Uric Acid Calcium 8.2 L Magnesium 1.50 L Total Bilirubin Direct Bilirubin AST ALT Alkaline Phosphatase Ammonia C-Reactive Protein Total Protein Albumin Vitamin B1 Vitamin B12 25-OH Vitamin D Total Free T4 T3 ([facility]) Urine Creatinine Urine Total Protein Acetaminophen 07/04/18 07/04/18 07/04/18 05:36 08:54 11:47 WBC RBC Hgb Hct MCV MCH RDW Plt Count Lymph % (Auto) [place] % (Auto) Lymph # [place] # Seg Neutrophils % Seg Neuts % (Manual) Lymphocytes % (Manual) Seg Neutrophils # Seg Neutrophils # Man Lymphocytes # (Manual) Monocytes # (Manual) POC ABG pH POC ABG pCO2 POC ABG pO2 Sodium 135 L Potassium Chloride Carbon Dioxide BUN Creatinine 0.5 L Glucose POC Glucose 61 L 122 H Lactic Acid Uric Acid Calcium 8.2 L Magnesium Total Bilirubin Direct Bilirubin AST ALT Alkaline Phosphatase Ammonia C-Reactive Protein Total Protein Albumin Vitamin B1 Vitamin B12 25-OH Vitamin D Total Free T4 T3 ([facility]) Urine Creatinine Urine Total Protein Acetaminophen 07/04/18 07/05/18 07/06/18 16:44 21:15 11:50 WBC RBC Hgb Hct MCV MCH RDW Plt Count Lymph % (Auto) [place] % (Auto) Lymph # [place] # Seg Neutrophils % Seg Neuts % (Manual) Lymphocytes % (Manual) Seg Neutrophils # Seg Neutrophils # Man Lymphocytes # (Manual) Monocytes # (Manual) POC ABG pH POC ABG pCO2 POC ABG pO2 Sodium Potassium Chloride Carbon Dioxide BUN Creatinine Glucose POC Glucose 124 H 150 H 67 L Lactic Acid Uric Acid Calcium Magnesium Total Bilirubin Direct Bilirubin AST ALT Alkaline Phosphatase Ammonia C-Reactive Protein Total Protein Albumin Vitamin B1 Vitamin B12 25-OH Vitamin D Total Free T4 T3 ([facility]) Urine Creatinine Urine Total Protein Acetaminophen 07/06/18 07/06/18 07/06/18 13:32 16:27 21:13 WBC RBC Hgb Hct MCV MCH RDW Plt Count Lymph % (Auto) [place] % (Auto) Lymph # [place] # Seg Neutrophils % Seg Neuts % (Manual) Lymphocytes % (Manual) Seg Neutrophils # Seg Neutrophils # Man Lymphocytes # (Manual) Monocytes # (Manual) POC ABG pH POC ABG pCO2 POC ABG pO2 Sodium Potassium Chloride Carbon Dioxide BUN Creatinine Glucose POC Glucose 146 H 125 H 69 L Lactic Acid Uric Acid Calcium Magnesium Total Bilirubin Direct Bilirubin AST ALT Alkaline Phosphatase Ammonia C-Reactive Protein Total Protein Albumin Vitamin B1 Vitamin B12 25-OH Vitamin D Total Free T4 T3 ([facility]) Urine Creatinine Urine Total Protein Acetaminophen 07/07/18 07/08/18 07/08/18 12:18 04:55 04:55 WBC RBC Hgb Hct MCV 78 L MCH 25 L RDW 18.2 H Plt Count Lymph % (Auto) [place] % (Auto) 14.8 H Lymph # [place] # 1.3 H Seg Neutrophils % Seg Neuts % (Manual) Lymphocytes % (Manual) Seg Neutrophils # Seg Neutrophils # Man Lymphocytes # (Manual) Monocytes # (Manual) POC ABG pH POC ABG pCO2 POC ABG pO2 Sodium 136 L Potassium Chloride Carbon Dioxide BUN Creatinine 0.5 L Glucose 110 H POC Glucose 132 H Lactic Acid Uric Acid Calcium 8.0 L Magnesium Total Bilirubin Direct Bilirubin AST ALT Alkaline Phosphatase Ammonia C-Reactive Protein Total Protein Albumin Vitamin B1 Vitamin B12 25-OH Vitamin D Total Free T4 T3 ([facility]) Urine Creatinine Urine Total Protein Acetaminophen Allied health notes reviewed: nursing
--- NOTE | 2018-07-08 16:19 | Progress Note ---
Assessment and Plan Acute Respiratory failure following Cardiac Arrest - ? PEA from hypoglycemia or Haldol administration- now off the ventilator and on nasal canula Patient stable s/p Cardiac arrest after Haldol: listed Haldol as an Allergy/Adverse drug. Severe NICM also contributed to the event I believe. Patient stable Severe NICM, ionotrope dependent : - Cardiology recommends Hospice, dobutamine now off by Cardiology - family not in agreement for code status, hospice now pending Patient stable Acute on Chronic systolic CHF of EF 20-25%, - patient has been on hospice before, it appears she was discharged from home hospice. - cont current meds, daily ins/os/daily wt Medications optimized Permanent Atrial fib/flutter: Eliquis resumed Altered mental status, with acute encephalopathy - suspected Dementia with psychotic features: Psych following - Continue home medication Zoloft 50 mg PO daily for now Psychosis improved and her encephalopathy improved Hypoglycemia--Blood glucose was 20 during the code- resolved Hyponatremia, due to diuresis and CHF: Nephrology following Improved Elevated LFT, Likely congestive hepatopathy due to end stage NICMP, closely monitor Severe protein calorie malnutrition: Home Health Aid consulted SIRS- ?underlying PNA doubt based on xray review and lack of fever or leukocytoisis: check blood culture- NO GROWTH. Antibiotics discontinued Improved Persistently elevated Lactic acidosis:-Likely secondary to hypoperfusion- Improved Hypokalemia: -DVT prophylaxis: Patient is on Eliquis Subjective Date of service: 07/08/18 Principal diagnosis: altered mental status, psychosis, chronic systolic heart failure, Interval history: Shortness of breath better Able to walk on the corridor Objective - Constitutional Vitals: Vital Signs - 12hr 07/08/18 07/08/18 07/08/18 09:40 09:44 10:22 Temperature 98.1 F Pulse Rate 97 H Pulse Rate [ 100 H Anterior Bilateral] Respiratory 20 Rate Respiratory 18 Rate [Anterior Bilateral] Blood Pressure 114/85 O2 Sat by Pulse 100 100 Oximetry 07/08/18 07/08/18 10:31 12:47 Temperature 97.7 F Pulse Rate 96 H 47 L Pulse Rate [ Anterior Bilateral] Respiratory 20 Rate Respiratory Rate [Anterior Bilateral] Blood Pressure 114/85 147/67 O2 Sat by Pulse 100 Oximetry General appearance: Present: no acute distress, well-nourished - EENT Eyes: PERRL, EOM intact ENT: hearing intact, clear oral mucosa Ears: bilateral: normal - Neck Neck: supple, normal ROM - Respiratory Respiratory effort: normal Respiratory: bilateral: CTA, rales (scattered) - Breasts Breasts: normal - Cardiovascular Heart rate: 80 Rhythm: regular Heart Sounds: Present: S1 & S2. Absent: gallop, rub Extremities: no ischemia, pulses intact, No edema, normal color, Full ROM - Gastrointestinal General gastrointestinal: Present: soft, non-tender, non-distended, normal bowel sounds - Genitourinary Female genitourinary: normal - Integumentary Integumentary: clear, warm, dry - Musculoskeletal Musculoskeletal: 1, strength equal bilaterally - Neurologic Neurologic: moves all extremities - Psychiatric Psychiatric: memory intact, appropriate mood/affect, intact judgment & insight - Labs CBC & Chem 7: 07/08/18 04:55 07/08/18 04:55 Labs: Abnormal lab results 07/08/18 07/08/18 07/08/18 Range/Units 04:55 04:55 14:27 MCV 78 L (79-97) fl MCH 25 L (28-32) pg RDW 18.2 H (13.2-15.2) % [place] % (Auto) 14.8 H (0.0-7.3) % [place] # 1.3 H (0.0-0.8) K/mm3 Sodium 136 L (137-145) mmol/L Creatinine 0.5 L (0.7-1.2) mg/dL Glucose 110 H (65-100) mg/dL POC Glucose 133 H (70-105) Calcium 8.0 L (8.4-10.2) mg/dL
--- NOTE | 2018-07-08 16:47 | Progress Note ---
Assessment and Plan - Patient Problems (1) Acute on chronic systolic heart failure Current Visit: No Status: Acute Plan to address problem: Medical therapy for severe dilated cardiomyopathy and chronic systolic heart failure. Subjective Date of service: 07/08/18 Principal diagnosis: altered mental status, psychosis, chronic systolic heart failure, Interval history: Patient is comfortable, no cardiac complaints, no acute distress. Objective Vital Signs Temp Pulse Pulse Pulse Pulse Resp Resp 07/08/18 12:47 97.7 F 47 L 20 07/08/18 10:31 96 H 07/08/18 10:22 98.1 F 97 H 20 07/08/18 09:44 07/08/18 09:40 100 H 18 07/08/18 04:06 98.4 F 99 H 20 07/08/18 02:21 18 07/08/18 01:06 106 H 07/07/18 23:04 97.6 F 106 H 18 07/07/18 22:00 07/07/18 21:31 92 H 16 07/07/18 20:15 98 H 98 H 18 07/07/18 20:00 97 H 16 07/07/18 19:23 97 H 07/07/18 19:21 97.6 F 98 H 16 07/07/18 17:25 72 07/07/18 17:20 72 07/07/18 17:13 98.3 F 72 18 BP Pulse Ox 07/08/18 12:47 147/67 100 07/08/18 10:31 114/85 07/08/18 10:22 114/85 100 07/08/18 09:44 100 07/08/18 09:40 07/08/18 04:06 106/70 100 07/08/18 02:21 07/08/18 01:06 126/60 07/07/18 23:04 126/60 100 07/07/18 22:00 96 07/07/18 21:31 07/07/18 20:15 97 07/07/18 20:00 07/07/18 19:23 07/07/18 19:21 146/75 97 07/07/18 17:25 100/59 07/07/18 17:20 100/59 07/07/18 17:13 100/59 94 - Physical Examination General: No Apparent Distress, Cachectic HEENT: Positive: PERRL Neck: Positive: trachea midline Cardiac: Positive: Reg Rate and Rhythm Lungs: Positive: Decreased Breath Sounds Neuro: Positive: Grossly Intact Abdomen: Positive: Unremarkable Skin: Positive: Clear Extremities: Absent: edema - Labs and Meds CBC 07/08/18 Range/Units 04:55 WBC 8.5 (4.5-11.0) K/mm3 RBC 4.46 (3.65-5.03) M/mm3 Hgb 11.2 (10.1-14.3) gm/dl Hct 34.5 (30.3-42.9) % Plt Count 237 (140-440) K/mm3 Lymph # 1.8 (1.2-5.4) K/mm3 [place] # 1.3 H (0.0-0.8) K/mm3 Eos # 0.1 (0.0-0.4) K/mm3 Baso # 0.1 (0.0-0.1) K/mm3 Comprehensive Metabolic Panel 07/08/18 Range/Units 04:55 Sodium 136 L (137-145) mmol/L Potassium 3.9 (3.6-5.0) mmol/L Chloride 98.8 (98-107) mmol/L Carbon Dioxide 28 (22-30) mmol/L BUN 9 (7-17) mg/dL Creatinine 0.5 L (0.7-1.2) mg/dL Glucose 110 H (65-100) mg/dL Calcium 8.0 L (8.4-10.2) mg/dL - Allied health notes Allied health notes reviewed: nursing
[2018-07-08] MEDS: LANOXIN PO SCH (17:57)
[2018-07-09] MEDS: LOPRESSOR PO SCH ×3 (01:06→17:22)
[2018-07-09] MEDS: TYLENOL PO PRN (03:03)
[2018-07-09] MEDS: LASIX PO SCH ×2 (06:44→18:22)
--- NOTE | 2018-07-09 07:57 | Progress Note ---
Assessment and Plan 1. Chronic combined systolic and diastolic heart failure 2. Dilated cardiomyopathy LV ejection fraction 20-25% 3. Severe depression 4. Chronic atrial fibrillation 5. AMS Plan. Cardiac valle stable continue present cardiac medication. Subjective Principal diagnosis: altered mental status, psychosis, chronic systolic heart failure, Interval history: No cardiac symptoms Objective Vital Signs Temp Pulse Pulse Pulse Pulse Resp Resp 07/09/18 04:16 97.9 F 78 20 07/09/18 04:03 18 07/09/18 03:03 18 07/09/18 01:06 98 H 07/09/18 00:54 97.3 F L 98 H 20 07/08/18 20:58 07/08/18 20:52 101 H 18 07/08/18 20:40 103 H 20 07/08/18 20:25 88 88 18 07/08/18 20:02 97.8 F 88 20 07/08/18 19:24 108 H 07/08/18 18:09 99 H 07/08/18 17:57 99 H 07/08/18 17:47 97.9 F 99 H 20 07/08/18 12:47 97.7 F 47 L 20 07/08/18 10:31 96 H 07/08/18 10:22 98.1 F 97 H 20 07/08/18 09:44 07/08/18 09:40 100 H 18 BP BP Pulse Ox 07/09/18 04:16 109/75 95 07/09/18 04:03 07/09/18 03:03 07/09/18 01:06 109/54 07/09/18 00:54 109/54 100 07/08/18 20:58 96 07/08/18 20:52 07/08/18 20:40 07/08/18 20:25 99 07/08/18 20:02 105/75 99 07/08/18 19:24 07/08/18 18:09 114/61 07/08/18 17:57 114/61 07/08/18 17:47 114/61 100 07/08/18 12:47 147/67 100 07/08/18 10:31 114/85 07/08/18 10:22 114/85 100 07/08/18 09:44 100 07/08/18 09:40 - Physical Examination General: No Apparent Distress, Cachectic HEENT: Positive: PERRL Neck: Positive: trachea midline Cardiac: Positive: Reg Rate and Rhythm, S1/S2, S3, PMI, Laterally Displaced Lungs: Positive: clear to auscultation, No Wheeze, Rales, Rhonchi Neuro: Positive: Grossly Intact Abdomen: Positive: Unremarkable Skin: Positive: Clear Extremities: Absent: edema - Allied health notes Allied health notes reviewed: nursing
[2018-07-09] MEDS: HumaLOG SUB-Q SCH ×3 (08:00→22:42)
[2018-07-09] MEDS: DUONEB *Not for PRN Use IH SCH ×3 (08:58→19:44)
[2018-07-09] MEDS: ZOLOFT PO SCH (10:22)
[2018-07-09] MEDS: PEPCID PO SCH (10:23)
[2018-07-09] MEDS: ELIQUIS PO SCH ×2 (10:24→22:11)
--- NOTE | 2018-07-09 10:57 | Discharge Summary ---
Providers - Providers Date of Admission: 06/17/18 02:59 Date of discharge: 07/09/18 Attending physician: SHANIA PEREZ 06/17/18 12:19 Consult to Physician [CONS] Routine Comment: Consulting Provider: CLEMENTINE WING Physician Instructions: Reason For Exam: Altered mental status 06/17/18 12:20 Consult to Cardiology [CONS] Routine Consulting Provider: PORTIA KHANNA Reason For Exam: CHF, atrial fib 06/17/18 16:25 Consult to Mental Health [CONS] Routine Reason For Exam: Confused, agitated Place consult to:: Psych Notified:: YES Phone number called:: [phone] Was contact made?: No If yes, spoke with:: - Time called:: 16:42 Comment:: LEFT MESSAGE ON MACHINE ONLY OPTION AVAILABLE. [id number] NO ANSWER 06/19/18 14:17 Consult to Physician [CONS] Routine Comment: Consulting Provider: TERRY ARRIAGA Physician Instructions: Reason For Exam: Hyponatremia 06/19/18 15:57 Consult to Case Management [CONS] Routine Services Needed at Discharge: Other Notified:: Case management Comment:: dc planning. patientt states she was discharged from hospice 06/20/18 09:33 Consult to Physician [CONS] Routine Comment: Consulting Provider: SILAS RUIZ Physician Instructions: Reason For Exam: Altered mental status, 06/26/18 11:16 Consult to Physician [CONS] Routine Comment: Consulting Provider: GRACE GAXIOLA Physician Instructions: Reason For Exam: RESPIRATORY FAILURE S/P ARREST 06/27/18 11:56 PICC Line Insertion [Consult to PICC Line RN] [CONS] Urgent Reason For Exam: Hypotension Type Line:: PICC 06/29/18 11:55 Physical Therapy Evaluation and Treat [CONS] Routine Comment: Reason For Exam: Debility 06/29/18 11:56 Occupational Therapy Evaluate and Treat [CONS] Routine Comment: Reason For Exam: Debility 06/30/18 11:13 Speech Therapy Evaluation and Treat [CONS] Urgent Reason For Exam: dysphagia screen 06/30/18 16:18 Consult to Mental Health [CONS] Routine Reason For Exam: MEDICATION MANAGEMENT Place consult to:: MENTAL HEALTH Notified:: Rosie SNEED Phone number called:: [phone]. [phone] Was contact made?: Yes If yes, spoke with:: [facility] Time called:: 07:47 07/01/18 11:51 Consult to Dietitian/Nutrition [CONS] Routine Physician Instructions: Reason For Exam: Reason for Consult: Poor oral intake 07/07/18 10:04 Consult to Case Management [CONS] Routine Services Needed at Discharge: Other Notified:: PARESH Was contact made?: Yes If yes, spoke with:: PARESH Comment:: HOSPICE [facility] Condition: Stable Hospital course: Acute Respiratory failure following Cardiac Arrest - ? PEA from hypoglycemia or Haldol administration- now off the ventilator and on nasal canula Patient stable s/p Cardiac arrest after Haldol: listed Haldol as an Allergy/Adverse drug. Severe NICM also contributed to the event I believe. Patient stable Severe NICM, ionotrope dependent : - Cardiology recommends Hospice, dobutamine now off by Cardiology - family not in agreement for code status, hospice now pending Patient stable Acute on Chronic systolic CHF of EF 20-25%, - patient has been on hospice before, it appears she was discharged from home hospice. - cont current meds, daily ins/os/daily wt Medications optimized Permanent Atrial fib/flutter: Eliquis resumed Altered mental status, with acute encephalopathy - suspected Dementia with psychotic features: Psych following - Continue home medication Zoloft 50 mg PO daily for now Psychosis improved and her encephalopathy improved Hypoglycemia--Blood glucose was 20 during the code- resolved Hyponatremia, due to diuresis and CHF: Nephrology following Improved Elevated LFT, Likely congestive hepatopathy due to end stage NICMP, closely monitor Severe protein calorie malnutrition: Clinical Staff Rn consulted SIRS- ?underlying PNA doubt based on xray review and lack of fever or leukocytoisis: check blood culture- NO GROWTH. Antibiotics discontinued Improved Persistently elevated Lactic acidosis:-Likely secondary to hypoperfusion- Improved Hypokalemia: Corrected Discharged to home Medications reconciled and prescriptions given Check Patient home medication list Disposition: - TO HOME OR SELFCARE Core Measure Documentation - Palliative Care Palliative Care/ Comfort Measures: Not Applicable - Core Measures Any of the following diagnoses?: heart failure - Heart Failure Discharge Requirements HEIDE/ARB for LVSD if EF <40%: Yes Beta puma at discharge: Yes Exam - Constitutional Vitals: Temp Pulse Resp BP Pulse Ox 97.5 F L 95 H 16 111/71 99 07/09/18 08:14 07/09/18 09:20 07/09/18 09:20 07/09/18 08:10 07/09/18 09:00 General appearance: Present: no acute distress, well-nourished - EENT Eyes: Present: PERRL ENT: hearing intact, clear oral mucosa - Neck Neck: Present: supple, normal ROM - Respiratory Respiratory effort: normal Respiratory: bilateral: CTA - Cardiovascular Heart rate: 78 Rhythm: regular Heart Sounds: Present: S1 & S2. Absent: rub, click - Extremities Extremities: no ischemia, pulses intact, pulses symmetrical, No edema Peripheral Pulses: within normal limits - Abdominal General gastrointestinal: Present: soft, non-tender, non-distended, normal bowel sounds Female genitourinary: Present: normal - Rectal Rectal Exam: deferred - Integumentary Integumentary: Present: clear, warm, dry - Musculoskeletal Musculoskeletal: gait normal, strength equal bilaterally - Psychiatric Psychiatric: appropriate mood/affect, intact judgment & insight - Neurologic Neurologic: CNII-XII intact, moves all extremities - Allied Health Allied health notes reviewed: nursing, case management Plan Activity: no restrictions Diet: low fat, low cholesterol, low salt Follow up with: KEELY SRIVASTAVA MD [Primary Care Provider] - 3-5 Days RASHEEDA ESTRADA MD [Staff Physician] - 7 Days
[2018-07-09] MEDS: LANOXIN PO SCH (17:21)
--- NOTE | 2018-07-09 21:45 | Progress Note ---
Assessment and Plan Patient awake and weak, Sitting in the chair at this time. Patient not using O2 as recommended. Patient is on room air. O2 saturation dropped to 80. Placed back on 2 litres O2. Stressed the importance of using O2 all the time..No acute res piratory distress.Patient afebrile. No leukocytosis. - Patient Problems (1) Cardiac arrest Current Visit: Yes Status: Acute Plan to address problem: Patient successfully resuciated. Patient alert, awake and on 2 litres O2. (2) Acute respiratory failure with hypoxia Current Visit: Yes Status: Acute Plan to address problem: Patient resting on 2 litres O2. O2 saturation 100%. (3) Acute kidney failure with tubular necrosis Current Visit: Yes Status: Acute Plan to address problem: Management as per nephrology. (4) Altered mental status Current Visit: Yes Status: Acute Plan to address problem: Improving. Still confusing at times. (5) Paroxysmal atrial fibrillation Current Visit: Yes Status: Acute Plan to address problem: Patient is on Apixaban. Management as per cardiology. (6) Acute on chronic systolic heart failure Current Visit: No Status: Acute Plan to address problem: Management as per cardiology. (7) HTN (hypertension) Current Visit: No Status: Chronic Plan to address problem: Management as per primary care. (8) Left lower lobe pulmonary infiltrate Current Visit: Yes Status: Acute Plan to address problem: Patient afebrile. No leukocytosis. Repeat chest xray PA and Lateral reported volume Overload. Subjective Date of service: 07/09/18 Principal diagnosis: altered mental status, psychosis, chronic systolic heart failure, Interval history: Patient awake and weak, Sitting in the chair at this time. Patient not using O2 as recommended. Patient is on room air. O2 saturation dropped to 80. Placed back on 2 litres O2. Stressed the importance of using O2 all the time..No acute respiratory distress.Patient afebrile. No leukocytosis. Objective Vital Signs - 12hr 07/09/18 07/09/18 07/09/18 10:00 13:15 14:13 Temperature 97.7 F Pulse Rate 107 H 95 H Pulse Rate [ 104 H Anterior Bilateral] Respiratory 20 Rate Respiratory 16 Rate [Anterior Bilateral] Blood Pressure 126/77 O2 Sat by Pulse 98 Oximetry 07/09/18 07/09/18 14:25 15:58 Temperature 97.9 F Pulse Rate 77 Pulse Rate [ 108 H Anterior Bilateral] Respiratory 18 Rate Respiratory 16 Rate [Anterior Bilateral] Blood Pressure 113/56 O2 Sat by Pulse 80 L Oximetry Constitutional: no acute distress, alert, other (Confusing at times.) Eyes: non-icteric, other (Pupils 4mm, sluggichly reacting to light) ENT: oropharynx dry, other (extubated) Neck: supple, no lymphadenopathy, no JVD, other (no thyromegaly) Effort: normal Ascultation: Bilateral: diminished breath sounds, rales Percussion: Bilateral: not dull Cardiovascular: irregular rhythm, other (S1,S2,) Gastrointestinal: normoactive bowel sounds, soft, non-tender, non-distended Integumentary: rash (exematoid rash to upper chest) Extremities: no cyanosis, no edema, pulses normal, no ischemia or petechiae Neurologic: normal mental status, non-focal exam (grossly), pupils equal and round, CN II-XII normal Psychiatric: depressed CBC and BMP: 07/08/18 04:55 07/08/18 04:55 ABG, PT/INR, D-dimer: ABG POC ABG pH 7.552 (7.35-7.45) H 06/28/18 10:53 POC ABG pCO2 40.8 (35-45) 06/28/18 10:53 POC ABG pO2 83 (80-105) 06/28/18 10:53 POC ABG HCO3 35.9 (22-26 mml/L) 06/28/18 10:53 POC ABG Total CO2 37 (23-27mmol/L) 06/28/18 10:53 POC ABG O2 Sat 97 06/28/18 10:53 Abnormal lab findings: Abnormal Labs 06/16/18 06/16/18 06/16/18 21:05 21:43 21:43 WBC RBC Hgb Hct MCV MCH RDW Plt Count Lymph % (Auto) [place] % (Auto) Lymph # [place] # Seg Neutrophils % Seg Neuts % (Manual) Lymphocytes % (Manual) Seg Neutrophils # Seg Neutrophils # Man Lymphocytes # (Manual) Monocytes # (Manual) POC ABG pH POC ABG pCO2 POC ABG pO2 Sodium 129 L Potassium Chloride 95.3 L Carbon Dioxide 14 L BUN 23 H Creatinine Glucose 146 H POC Glucose < 40 L Lactic Acid Uric Acid Calcium Magnesium Total Bilirubin Direct Bilirubin AST ALT Alkaline Phosphatase Ammonia C-Reactive Protein Total Protein Albumin Vitamin B1 Vitamin B12 25-OH Vitamin D Total Free T4 T3 (GILSON) Urine Creatinine Urine Total Protein Acetaminophen < 5.0 L 06/16/18 06/16/18 06/16/18 21:43 21:43 22:27 WBC RBC 5.70 H Hgb Hct 44.6 H MCV 78 L MCH 25 L RDW 18.7 H Plt Count Lymph % (Auto) [place] % (Auto) Lymph # [place] # Seg Neutrophils % 78.8 H Seg Neuts % (Manual) Lymphocytes % (Manual) Seg Neutrophils # Seg Neutrophils # Man Lymphocytes # (Manual) Monocytes # (Manual) POC ABG pH POC ABG pCO2 POC ABG pO2 Sodium Potassium Chloride Carbon Dioxide BUN Creatinine Glucose POC Glucose 121 H Lactic Acid Uric Acid Calcium Magnesium Total Bilirubin Direct Bilirubin AST ALT Alkaline Phosphatase Ammonia C-Reactive Protein Total Protein Albumin Vitamin B1 Vitamin B12 25-OH Vitamin D Total Free T4 1.87 H T3 (GILSON) Urine Creatinine Urine Total Protein Acetaminophen 06/16/18 06/16/18 06/17/18 22:33 23:43 03:56 WBC RBC Hgb Hct MCV MCH RDW Plt Count Lymph % (Auto) [place] % (Auto) Lymph # [place] # Seg Neutrophils % Seg Neuts % (Manual) Lymphocytes % (Manual) Seg Neutrophils # Seg Neutrophils # Man Lymphocytes # (Manual) Monocytes # (Manual) POC ABG pH POC ABG pCO2 POC ABG pO2 Sodium Potassium Chloride Carbon Dioxide BUN Creatinine Glucose POC Glucose Lactic Acid 4.40 H* 4.30 H* 3.10 H* Uric Acid Calcium Magnesium Total Bilirubin Direct Bilirubin AST ALT Alkaline Phosphatase Ammonia C-Reactive Protein Total Protein Albumin Vitamin B1 Vitamin B12 25-OH Vitamin D Total Free T4 T3 (GISLON) Urine Creatinine Urine Total Protein Acetaminophen 06/17/18 06/17/18 06/17/18 08:35 08:40 11:00 WBC RBC Hgb Hct MCV MCH RDW Plt Count Lymph % (Auto) [place] % (Auto) Lymph # [place] # Seg Neutrophils % Seg Neuts % (Manual) Lymphocytes % (Manual) Seg Neutrophils # Seg Neutrophils # Man Lymphocytes # (Manual) Monocytes # (Manual) POC ABG pH POC ABG pCO2 POC ABG pO2 Sodium Potassium Chloride Carbon Dioxide BUN Creatinine Glucose POC Glucose 56 L Lactic Acid 2.70 H* 3.40 H* Uric Acid Calcium Magnesium Total Bilirubin Direct Bilirubin AST ALT Alkaline Phosphatase Ammonia C-Reactive Protein Total Protein Albumin Vitamin B1 Vitamin B12 25-OH Vitamin D Total Free T4 T3 (GILSON) Urine Creatinine Urine Total Protein Acetaminophen 06/17/18 06/17/18 06/17/18 11:00 11:00 11:00 WBC 11.9 H RBC 5.25 H Hgb Hct MCV MCH 25 L RDW 18.6 H Plt Count Lymph % (Auto) [place] % (Auto) Lymph # [place] # Seg Neutrophils % Seg Neuts % (Manual) Lymphocytes % (Manual) Seg Neutrophils # Seg Neutrophils # Man Lymphocytes # (Manual) Monocytes # (Manual) POC ABG pH POC ABG pCO2 POC ABG pO2 Sodium 128 L Potassium Chloride 95.6 L Carbon Dioxide 15 L BUN 22 H Creatinine Glucose 110 H POC Glucose Lactic Acid Uric Acid Calcium 8.3 L Magnesium Total Bilirubin Direct Bilirubin 1.6 H AST 66 H ALT Alkaline Phosphatase 178 H Ammonia C-Reactive Protein Total Protein 4.7 L Albumin 2.4 L Vitamin B1 Vitamin B12 25-OH Vitamin D Total Free T4 T3 (GILSON) Urine Creatinine Urine Total Protein Acetaminophen 06/17/18 06/17/18 06/17/18 15:08 15:08 23:00 WBC RBC Hgb Hct MCV MCH RDW Plt Count Lymph % (Auto) [place] % (Auto) Lymph # [place] # Seg Neutrophils % Seg Neuts % (Manual) Lymphocytes % (Manual) Seg Neutrophils # Seg Neutrophils # Man Lymphocytes # (Manual) Monocytes # (Manual) POC ABG pH POC ABG pCO2 POC ABG pO2 Sodium Potassium Chloride Carbon Dioxide BUN Creatinine Glucose POC Glucose Lactic Acid 4.00 H* Uric Acid Calcium Magnesium Total Bilirubin Direct Bilirubin AST ALT Alkaline Phosphatase Ammonia 10.0 L C-Reactive Protein Total Protein Albumin Vitamin B1 Vitamin B12 25-OH Vitamin D Total Free T4 1.53 H T3 (GILSON) Urine Creatinine Urine Total Protein Acetaminophen 06/18/18 06/18/18 06/18/18 08:59 08:59 12:49 WBC RBC 5.29 H Hgb Hct MCV 78 L MCH 25 L RDW 18.4 H Plt Count Lymph % (Auto) [place] % (Auto) Lymph # [place] # Seg Neutrophils % Seg Neuts % (Manual) Lymphocytes % (Manual) Seg Neutrophils # Seg Neutrophils # Man Lymphocytes # (Manual) Monocytes # (Manual) POC ABG pH POC ABG pCO2 POC ABG pO2 Sodium 128 L Potassium 5.9 H D Chloride 96.1 L Carbon Dioxide 20 L BUN 22 H Creatinine Glucose POC Glucose 60 L Lactic Acid Uric Acid Calcium Magnesium Total Bilirubin Direct Bilirubin AST ALT Alkaline Phosphatase Ammonia C-Reactive Protein Total Protein Albumin Vitamin B1 Vitamin B12 25-OH Vitamin D Total Free T4 T3 (GILSON) Urine Creatinine Urine Total Protein Acetaminophen 06/18/18 06/19/18 06/19/18 21:28 12:14 13:23 WBC RBC Hgb Hct MCV MCH RDW Plt Count Lymph % (Auto) [place] % (Auto) Lymph # [place] # Seg Neutrophils % Seg Neuts % (Manual) Lymphocytes % (Manual) Seg Neutrophils # Seg Neutrophils # Man Lymphocytes # (Manual) Monocytes # (Manual) POC ABG pH POC ABG pCO2 POC ABG pO2 Sodium 122 L Potassium 5.4 H Chloride 95.0 L Carbon Dioxide 13 L D BUN 21 H Creatinine Glucose 119 H POC Glucose 114 H Lactic Acid Uric Acid Calcium 8.3 L Magnesium Total Bilirubin Direct Bilirubin AST ALT Alkaline Phosphatase Ammonia C-Reactive Protein Total Protein Albumin Vitamin B1 Vitamin B12 25-OH Vitamin D Total Free T4 T3 (GILSON) Urine Creatinine Urine Total Protein Acetaminophen 06/19/18 06/19/18 06/19/18 14:47 16:38 22:42 WBC RBC 5.51 H Hgb Hct 45.3 H MCV MCH 25 L RDW 18.6 H Plt Count Lymph % (Auto) [place] % (Auto) Lymph # [place] # Seg Neutrophils % Seg Neuts % (Manual) Lymphocytes % (Manual) Seg Neutrophils # Seg Neutrophils # Man Lymphocytes # (Manual) Monocytes # (Manual) POC ABG pH POC ABG pCO2 POC ABG pO2 Sodium Potassium Chloride Carbon Dioxide BUN Creatinine Glucose POC Glucose 108 H 49 L Lactic Acid Uric Acid Calcium Magnesium Total Bilirubin Direct Bilirubin AST ALT Alkaline Phosphatase Ammonia C-Reactive Protein Total Protein Albumin Vitamin B1 Vitamin B12 25-OH Vitamin D Total Free T4 T3 (GILSON) Urine Creatinine Urine Total Protein Acetaminophen 06/19/18 06/20/18 06/20/18 Unknown 07:31 16:51 WBC RBC Hgb Hct MCV MCH RDW Plt Count Lymph % (Auto) [place] % (Auto) Lymph # [place] # Seg Neutrophils % Seg Neuts % (Manual) Lymphocytes % (Manual) Seg Neutrophils # Seg Neutrophils # Man Lymphocytes # (Manual) Monocytes # (Manual) POC ABG pH POC ABG pCO2 POC ABG pO2 Sodium 132 L D Potassium Chloride 94.3 L Carbon Dioxide BUN 20 H Creatinine Glucose POC Glucose Lactic Acid Uric Acid 8.6 H Calcium Magnesium 1.30 L Total Bilirubin Direct Bilirubin AST ALT Alkaline Phosphatase Ammonia C-Reactive Protein Total Protein Albumin Vitamin B1 Vitamin B12 25-OH Vitamin D Total Free T4 T3 (GILSON) 58 L Urine Creatinine 61.7 H Urine Total Protein 32 H Acetaminophen 06/20/18 06/20/18 06/21/18 20:53 20:53 16:27 WBC RBC Hgb Hct MCV MCH RDW Plt Count Lymph % (Auto) [place] % (Auto) Lymph # [place] # Seg Neutrophils % Seg Neuts % (Manual) Lymphocytes % (Manual) Seg Neutrophils # Seg Neutrophils # Man Lymphocytes # (Manual) Monocytes # (Manual) POC ABG pH POC ABG pCO2 POC ABG pO2 Sodium Potassium Chloride Carbon Dioxide BUN Creatinine Glucose POC Glucose Lactic Acid Uric Acid 9.2 H Calcium Magnesium Total Bilirubin Direct Bilirubin AST ALT Alkaline Phosphatase Ammonia C-Reactive Protein Total Protein Albumin Vitamin B1 Vitamin B12 1598 H 25-OH Vitamin D Total 10 L Free T4 T3 (GILSON) Urine Creatinine Urine Total Protein Acetaminophen 06/21/18 06/21/18 06/21/18 16:27 16:27 16:27 WBC RBC 5.26 H Hgb Hct MCV 77 L MCH 26 L RDW 17.7 H Plt Count Lymph % (Auto) [place] % (Auto) Lymph # [place] # Seg Neutrophils % Seg Neuts % (Manual) Lymphocytes % (Manual) Seg Neutrophils # Seg Neutrophils # Man Lymphocytes # (Manual) Monocytes # (Manual) POC ABG pH POC ABG pCO2 POC ABG pO2 Sodium 130 L Potassium Chloride 95.6 L Carbon Dioxide BUN 24 H Creatinine Glucose POC Glucose Lactic Acid Uric Acid Calcium Magnesium Total Bilirubin Direct Bilirubin AST ALT Alkaline Phosphatase Ammonia C-Reactive Protein Total Protein Albumin Vitamin B1 <6 L Vitamin B12 25-OH Vitamin D Total Free T4 T3 (GILSON) Urine Creatinine Urine Total Protein Acetaminophen 06/21/18 06/22/18 06/23/18 21:44 21:42 14:54 WBC RBC 5.07 H Hgb Hct MCV 78 L MCH 25 L RDW 18.5 H Plt Count Lymph % (Auto) [place] % (Auto) 12.3 H Lymph # 1.0 L [place] # Seg Neutrophils % Seg Neuts % (Manual) Lymphocytes % (Manual) Seg Neutrophils # Seg Neutrophils # Man Lymphocytes # (Manual) Monocytes # (Manual) POC ABG pH POC ABG pCO2 POC ABG pO2 Sodium Potassium Chloride Carbon Dioxide BUN Creatinine Glucose POC Glucose 126 H 114 H Lactic Acid Uric Acid Calcium Magnesium Total Bilirubin Direct Bilirubin AST ALT Alkaline Phosphatase Ammonia C-Reactive Protein Total Protein Albumin Vitamin B1 Vitamin B12 25-OH Vitamin D Total Free T4 T3 (GILSON) Urine Creatinine Urine Total Protein Acetaminophen 06/23/18 06/25/18 06/25/18 14:54 00:00 00:00 WBC 3.6 L RBC 5.31 H Hgb Hct MCV 77 L MCH 26 L RDW 19.0 H Plt Count Lymph % (Auto) [place] % (Auto) 10.2 H Lymph # [place] # Seg Neutrophils % Seg Neuts % (Manual) Lymphocytes % (Manual) Seg Neutrophils # Seg Neutrophils # Man Lymphocytes # (Manual) Monocytes # (Manual) POC ABG pH POC ABG pCO2 POC ABG pO2 Sodium 132 L 131 L Potassium 3.5 L Chloride 91.5 L 93.5 L Carbon Dioxide BUN 19 H 21 H Creatinine Glucose POC Glucose Lactic Acid Uric Acid Calcium 8.1 L Magnesium Total Bilirubin 2.80 H 2.70 H Direct Bilirubin AST 52 H 81 H ALT Alkaline Phosphatase 231 H 243 H Ammonia C-Reactive Protein Total Protein 5.5 L 5.5 L Albumin 2.8 L 2.7 L Vitamin B1 Vitamin B12 25-OH Vitamin D Total Free T4 T3 (GILSON) Urine Creatinine Urine Total Protein Acetaminophen 06/25/18 06/25/18 06/25/18 16:02 16:02 16:18 WBC 3.9 L RBC 5.78 H Hgb 14.6 H Hct 45.4 H MCV MCH 25 L RDW 19.2 H Plt Count Lymph % (Auto) [place] % (Auto) Lymph # [place] # Seg Neutrophils % Seg Neuts % (Manual) Lymphocytes % (Manual) Seg Neutrophils # Seg Neutrophils # Man Lymphocytes # (Manual) 1.1 L Monocytes # (Manual) POC ABG pH POC ABG pCO2 POC ABG pO2 Sodium 131 L Potassium Chloride 90.0 L Carbon Dioxide BUN 25 H Creatinine 1.4 H Glucose POC Glucose Lactic Acid 4.00 H* Uric Acid Calcium Magnesium Total Bilirubin 3.10 H Direct Bilirubin AST 68 H ALT Alkaline Phosphatase 296 H Ammonia C-Reactive Protein Total Protein 6.1 L Albumin 3.3 L Vitamin B1 Vitamin B12 25-OH Vitamin D Total Free T4 T3 (GILSON) Urine Creatinine Urine Total Protein Acetaminophen 06/25/18 06/26/18 06/26/18 21:06 11:33 11:37 WBC RBC Hgb Hct MCV MCH 26 L RDW 19.2 H Plt Count 139 L Lymph % (Auto) [place] % (Auto) Lymph # [place] # Seg Neutrophils % Seg Neuts % (Manual) 85.0 H Lymphocytes % (Manual) 6.0 L Seg Neutrophils # Seg Neutrophils # Man 8.0 H Lymphocytes # (Manual) 0.6 L Monocytes # (Manual) POC ABG pH POC ABG pCO2 POC ABG pO2 Sodium Potassium Chloride Carbon Dioxide BUN Creatinine Glucose POC Glucose < 40 L Lactic Acid 6.40 H* Uric Acid Calcium Magnesium Total Bilirubin Direct Bilirubin AST ALT Alkaline Phosphatase Ammonia C-Reactive Protein Total Protein Albumin Vitamin B1 Vitamin B12 25-OH Vitamin D Total Free T4 T3 (GILSON) Urine Creatinine Urine Total Protein Acetaminophen 06/26/18 06/26/18 06/26/18 11:37 11:51 11:59 WBC RBC Hgb Hct MCV MCH RDW Plt Count Lymph % (Auto) [place] % (Auto) Lymph # [place] # Seg Neutrophils % Seg Neuts % (Manual) Lymphocytes % (Manual) Seg Neutrophils # Seg Neutrophils # Man Lymphocytes # (Manual) Monocytes # (Manual) POC ABG pH 7.029 L POC ABG pCO2 POC ABG pO2 73 L Sodium 129 L Potassium Chloride 87.0 L Carbon Dioxide 11 L D BUN 31 H Creatinine 1.9 H Glucose 206 H POC Glucose 253 H Lactic Acid Uric Acid Calcium 7.9 L Magnesium Total Bilirubin 2.90 H Direct Bilirubin AST 98 H ALT Alkaline Phosphatase 196 H Ammonia C-Reactive Protein Total Protein 4.3 L D Albumin 2.2 L Vitamin B1 Vitamin B12 25-OH Vitamin D Total Free T4 T3 (GILSON) Urine Creatinine Urine Total Protein Acetaminophen 06/26/18 06/26/18 06/26/18 14:54 15:08 15:10 WBC 14.2 H RBC 5.66 H Hgb 14.5 H Hct 45.6 H D MCV MCH 26 L RDW 19.4 H Plt Count Lymph % (Auto) [place] % (Auto) Lymph # [place] # Seg Neutrophils % Seg Neuts % (Manual) 88.0 H Lymphocytes % (Manual) 5.0 L Seg Neutrophils # Seg Neutrophils # Man 12.5 H Lymphocytes # (Manual) 0.7 L Monocytes # (Manual) 0.9 H POC ABG pH POC ABG pCO2 POC ABG pO2 Sodium Potassium Chloride Carbon Dioxide BUN Creatinine Glucose POC Glucose 172 H Lactic Acid 11.90 H* Uric Acid Calcium Magnesium Total Bilirubin Direct Bilirubin AST ALT Alkaline Phosphatase Ammonia C-Reactive Protein Total Protein Albumin Vitamin B1 Vitamin B12 25-OH Vitamin D Total Free T4 T3 (GILSON) Urine Creatinine Urine Total Protein Acetaminophen 06/26/18 06/26/18 06/26/18 16:01 18:47 20:55 WBC RBC Hgb Hct MCV MCH RDW Plt Count Lymph % (Auto) [place] % (Auto) Lymph # [place] # Seg Neutrophils % Seg Neuts % (Manual) Lymphocytes % (Manual) Seg Neutrophils # Seg Neutrophils # Man Lymphocytes # (Manual) Monocytes # (Manual) POC ABG pH POC ABG pCO2 34.0 L POC ABG pO2 Sodium Potassium Chloride Carbon Dioxide BUN Creatinine Glucose POC Glucose 183 H 131 H Lactic Acid Uric Acid Calcium Magnesium Total Bilirubin Direct Bilirubin AST ALT Alkaline Phosphatase Ammonia C-Reactive Protein Total Protein Albumin Vitamin B1 Vitamin B12 25-OH Vitamin D Total Free T4 T3 (GILSON) Urine Creatinine Urine Total Protein Acetaminophen 06/26/18 06/27/18 06/27/18 21:55 09:29 09:29 WBC RBC Hgb Hct MCV MCH RDW Plt Count Lymph % (Auto) [place] % (Auto) Lymph # [place] # Seg Neutrophils % Seg Neuts % (Manual) Lymphocytes % (Manual) Seg Neutrophils # Seg Neutrophils # Man Lymphocytes # (Manual) Monocytes # (Manual) POC ABG pH POC ABG pCO2 POC ABG pO2 Sodium 135 L 135 L Potassium 3.5 L Chloride 91.7 L 91.2 L Carbon Dioxide BUN 35 H 37 H Creatinine 2.3 H 2.1 H Glucose 147 H 104 H POC Glucose Lactic Acid Uric Acid Calcium 8.3 L 8.1 L Magnesium Total Bilirubin 3.50 H Direct Bilirubin AST 218 H ALT 57 H Alkaline Phosphatase 197 H Ammonia C-Reactive Protein Total Protein 5.0 L Albumin 2.3 L Vitamin B1 Vitamin B12 25-OH Vitamin D Total Free T4 1.78 H T3 (GILSON) Urine Creatinine Urine Total Protein Acetaminophen 06/27/18 06/27/18 06/27/18 09:29 09:29 10:00 WBC 16.3 H RBC 5.44 H Hgb Hct MCV 76 L MCH 25 L RDW 18.3 H Plt Count Lymph % (Auto) [place] % (Auto) Lymph # [place] # Seg Neutrophils % Seg Neuts % (Manual) 91.0 H Lymphocytes % (Manual) 3.0 L Seg Neutrophils # Seg Neutrophils # Man 14.8 H Lymphocytes # (Manual) 0.5 L Monocytes # (Manual) 1.0 H POC ABG pH POC ABG pCO2 POC ABG pO2 Sodium Potassium Chloride Carbon Dioxide BUN Creatinine Glucose POC Glucose 106 H Lactic Acid 4.00 H* Uric Acid Calcium Magnesium Total Bilirubin Direct Bilirubin AST ALT Alkaline Phosphatase Ammonia C-Reactive Protein Total Protein Albumin Vitamin B1 Vitamin B12 25-OH Vitamin D Total Free T4 T3 (GILSON) Urine Creatinine Urine Total Protein Acetaminophen 06/27/18 06/27/18 06/27/18 11:51 12:50 13:39 WBC RBC Hgb Hct MCV MCH RDW Plt Count Lymph % (Auto) [place] % (Auto) Lymph # [place] # Seg Neutrophils % Seg Neuts % (Manual) Lymphocytes % (Manual) Seg Neutrophils # Seg Neutrophils # Man Lymphocytes # (Manual) Monocytes # (Manual) POC ABG pH 7.584 H POC ABG pCO2 32.8 L POC ABG pO2 109 H Sodium Potassium Chloride Carbon Dioxide BUN Creatinine Glucose POC Glucose 112 H Lactic Acid 3.20 H* Uric Acid Calcium Magnesium Total Bilirubin Direct Bilirubin AST ALT Alkaline Phosphatase Ammonia C-Reactive Protein Total Protein Albumin Vitamin B1 Vitamin B12 25-OH Vitamin D Total Free T4 T3 (GILSON) Urine Creatinine Urine Total Protein Acetaminophen 06/27/18 06/27/18 06/27/18 19:31 21:50 23:10 WBC RBC Hgb Hct MCV MCH RDW Plt Count Lymph % (Auto) [place] % (Auto) Lymph # [place] # Seg Neutrophils % Seg Neuts % (Manual) Lymphocytes % (Manual) Seg Neutrophils # Seg Neutrophils # Man Lymphocytes # (Manual) Monocytes # (Manual) POC ABG pH POC ABG pCO2 POC ABG pO2 Sodium Potassium Chloride Carbon Dioxide BUN Creatinine Glucose POC Glucose Lactic Acid 2.40 H* 2.30 H* 2.30 H* Uric Acid Calcium Magnesium Total Bilirubin Direct Bilirubin AST ALT Alkaline Phosphatase Ammonia C-Reactive Protein Total Protein Albumin Vitamin B1 Vitamin B12 25-OH Vitamin D Total Free T4 T3 (GILSON) Urine Creatinine Urine Total Protein Acetaminophen 06/28/18 06/28/18 06/28/18 02:35 05:00 05:00 WBC RBC Hgb Hct MCV MCH RDW Plt Count Lymph % (Auto) [place] % (Auto) Lymph # [place] # Seg Neutrophils % Seg Neuts % (Manual) Lymphocytes % (Manual) Seg Neutrophils # Seg Neutrophils # Man Lymphocytes # (Manual) Monocytes # (Manual) POC ABG pH POC ABG pCO2 POC ABG pO2 Sodium 134 L Potassium 2.6 L* D Chloride 92.3 L Carbon Dioxide 32 H BUN 34 H Creatinine 1.8 H Glucose 127 H POC Glucose Lactic Acid 2.20 H* 2.30 H* Uric Acid Calcium 7.5 L Magnesium Total Bilirubin 3.50 H Direct Bilirubin AST 226 H ALT 60 H Alkaline Phosphatase 172 H Ammonia C-Reactive Protein Total Protein 4.2 L Albumin 2.0 L Vitamin B1 Vitamin B12 25-OH Vitamin D Total Free T4 T3 (GILSON) Urine Creatinine Urine Total Protein Acetaminophen 06/28/18 06/28/18 06/28/18 05:00 08:30 08:30 WBC 15.7 H RBC Hgb Hct MCV 77 L MCH 25 L RDW 18.5 H Plt Count 112 L Lymph % (Auto) 6.0 L [place] % (Auto) 10.0 H Lymph # 0.9 L [place] # 1.6 H Seg Neutrophils % 83.4 H Seg Neuts % (Manual) Lymphocytes % (Manual) Seg Neutrophils # 13.1 H Seg Neutrophils # Man Lymphocytes # (Manual) Monocytes # (Manual) POC ABG pH POC ABG pCO2 POC ABG pO2 Sodium Potassium Chloride Carbon Dioxide BUN Creatinine Glucose POC Glucose Lactic Acid 2.40 H* Uric Acid Calcium Magnesium Total Bilirubin Direct Bilirubin AST ALT Alkaline Phosphatase Ammonia C-Reactive Protein 4.80 H Total Protein Albumin Vitamin B1 Vitamin B12 25-OH Vitamin D Total Free T4 T3 (GILSON) Urine Creatinine Urine Total Protein Acetaminophen 06/28/18 06/28/18 06/28/18 10:53 11:23 18:35 WBC RBC Hgb Hct MCV MCH RDW Plt Count Lymph % (Auto) [place] % (Auto) Lymph # [place] # Seg Neutrophils % Seg Neuts % (Manual) Lymphocytes % (Manual) Seg Neutrophils # Seg Neutrophils # Man Lymphocytes # (Manual) Monocytes # (Manual) POC ABG pH 7.552 H POC ABG pCO2 POC ABG pO2 Sodium Potassium 3.1 L Chloride Carbon Dioxide BUN Creatinine Glucose POC Glucose 122 H Lactic Acid Uric Acid Calcium Magnesium Total Bilirubin Direct Bilirubin AST ALT Alkaline Phosphatase Ammonia C-Reactive Protein Total Protein Albumin Vitamin B1 Vitamin B12 25-OH Vitamin D Total Free T4 T3 (GILSON) Urine Creatinine Urine Total Protein Acetaminophen 06/29/18 06/29/18 06/29/18 06:40 06:40 19:44 WBC 14.6 H RBC Hgb Hct MCV 77 L MCH 25 L RDW 19.3 H Plt Count 88 L Lymph % (Auto) [place] % (Auto) Lymph # [place] # Seg Neutrophils % Seg Neuts % (Manual) Lymphocytes % (Manual) Seg Neutrophils # Seg Neutrophils # Man Lymphocytes # (Manual) Monocytes # (Manual) POC ABG pH POC ABG pCO2 POC ABG pO2 Sodium Potassium 2.7 L* Chloride 95.3 L Carbon Dioxide 32 H BUN 25 H Creatinine Glucose 145 H POC Glucose 59 L Lactic Acid Uric Acid Calcium 7.9 L Magnesium Total Bilirubin 3.60 H Direct Bilirubin AST 213 H ALT Alkaline Phosphatase 176 H Ammonia C-Reactive Protein Total Protein 4.8 L Albumin 2.2 L Vitamin B1 Vitamin B12 25-OH Vitamin D Total Free T4 T3 (GILSON) Urine Creatinine Urine Total Protein Acetaminophen 06/29/18 06/30/18 06/30/18 20:43 02:37 04:45 WBC RBC Hgb Hct MCV MCH RDW Plt Count Lymph % (Auto) [place] % (Auto) Lymph # [place] # Seg Neutrophils % Seg Neuts % (Manual) Lymphocytes % (Manual) Seg Neutrophils # Seg Neutrophils # Man Lymphocytes # (Manual) Monocytes # (Manual) POC ABG pH POC ABG pCO2 POC ABG pO2 Sodium Potassium 3.1 L 2.8 L* Chloride Carbon Dioxide 31 H BUN 18 H Creatinine Glucose POC Glucose 59 L Lactic Acid Uric Acid Calcium 8.0 L Magnesium Total Bilirubin 3.70 H Direct Bilirubin AST 216 H ALT 63 H Alkaline Phosphatase 163 H Ammonia C-Reactive Protein Total Protein 4.5 L Albumin 2.1 L Vitamin B1 Vitamin B12 25-OH Vitamin D Total Free T4 T3 (GILSON) Urine Creatinine Urine Total Protein Acetaminophen 06/30/18 06/30/18 07/01/18 04:45 06:24 04:39 WBC 12.1 H RBC Hgb Hct MCV 78 L 77 L MCH 25 L 25 L RDW 19.0 H 19.3 H Plt Count 91 L 77 L Lymph % (Auto) [place] % (Auto) Lymph # [place] # Seg Neutrophils % Seg Neuts % (Manual) Lymphocytes % (Manual) Seg Neutrophils # Seg Neutrophils # Man Lymphocytes # (Manual) Monocytes # (Manual) POC ABG pH POC ABG pCO2 POC ABG pO2 Sodium Potassium Chloride Carbon Dioxide BUN Creatinine Glucose POC Glucose 63 L Lactic Acid Uric Acid Calcium Magnesium Total Bilirubin Direct Bilirubin AST ALT Alkaline Phosphatase Ammonia C-Reactive Protein Total Protein Albumin Vitamin B1 Vitamin B12 25-OH Vitamin D Total Free T4 T3 ([facility]) Urine Creatinine Urine Total Protein Acetaminophen 07/01/18 07/01/18 07/02/18 04:39 11:12 05:23 WBC RBC Hgb Hct MCV 77 L MCH 25 L RDW 19.2 H Plt Count 78 L Lymph % (Auto) [place] % (Auto) Lymph # [place] # Seg Neutrophils % Seg Neuts % (Manual) Lymphocytes % (Manual) Seg Neutrophils # Seg Neutrophils # Man Lymphocytes # (Manual) Monocytes # (Manual) POC ABG pH POC ABG pCO2 POC ABG pO2 Sodium Potassium 3.5 L D Chloride Carbon Dioxide BUN Creatinine Glucose 109 H POC Glucose 206 H Lactic Acid Uric Acid Calcium 8.1 L Magnesium Total Bilirubin 3.90 H Direct Bilirubin AST 163 H ALT 60 H Alkaline Phosphatase 166 H Ammonia C-Reactive Protein Total Protein 4.5 L Albumin 2.0 L Vitamin B1 Vitamin B12 25-OH Vitamin D Total Free T4 T3 ([facility]) Urine Creatinine Urine Total Protein Acetaminophen 07/02/18 07/02/18 07/03/18 05:23 12:18 08:14 WBC RBC Hgb Hct MCV 76 L MCH 25 L RDW 19.0 H Plt Count 84 L Lymph % (Auto) [place] % (Auto) Lymph # [place] # Seg Neutrophils % Seg Neuts % (Manual) Lymphocytes % (Manual) Seg Neutrophils # Seg Neutrophils # Man Lymphocytes # (Manual) Monocytes # (Manual) POC ABG pH POC ABG pCO2 POC ABG pO2 Sodium 135 L Potassium 3.4 L Chloride Carbon Dioxide BUN Creatinine 0.6 L Glucose POC Glucose 144 H Lactic Acid Uric Acid Calcium 8.3 L Magnesium Total Bilirubin Direct Bilirubin AST ALT Alkaline Phosphatase Ammonia C-Reactive Protein Total Protein Albumin Vitamin B1 Vitamin B12 25-OH Vitamin D Total Free T4 T3 ([facility]) Urine Creatinine Urine Total Protein Acetaminophen 07/03/18 07/03/18 07/04/18 08:14 16:33 05:36 WBC RBC Hgb Hct MCV 77 L MCH 25 L RDW 18.5 H Plt Count 103 L Lymph % (Auto) [place] % (Auto) Lymph # [place] # Seg Neutrophils % Seg Neuts % (Manual) Lymphocytes % (Manual) Seg Neutrophils # Seg Neutrophils # Man Lymphocytes # (Manual) Monocytes # (Manual) POC ABG pH POC ABG pCO2 POC ABG pO2 Sodium 135 L Potassium Chloride 97.7 L Carbon Dioxide BUN Creatinine 0.5 L Glucose POC Glucose 69 L Lactic Acid Uric Acid Calcium 8.2 L Magnesium 1.50 L Total Bilirubin Direct Bilirubin AST ALT Alkaline Phosphatase Ammonia C-Reactive Protein Total Protein Albumin Vitamin B1 Vitamin B12 25-OH Vitamin D Total Free T4 T3 ([facility]) Urine Creatinine Urine Total Protein Acetaminophen 07/04/18 07/04/18 07/04/18 05:36 08:54 11:47 WBC RBC Hgb Hct MCV MCH RDW Plt Count Lymph % (Auto) [place] % (Auto) Lymph # [place] # Seg Neutrophils % Seg Neuts % (Manual) Lymphocytes % (Manual) Seg Neutrophils # Seg Neutrophils # Man Lymphocytes # (Manual) Monocytes # (Manual) POC ABG pH POC ABG pCO2 POC ABG pO2 Sodium 135 L Potassium Chloride Carbon Dioxide BUN Creatinine 0.5 L Glucose POC Glucose 61 L 122 H Lactic Acid Uric Acid Calcium 8.2 L Magnesium Total Bilirubin Direct Bilirubin AST ALT Alkaline Phosphatase Ammonia C-Reactive Protein Total Protein Albumin Vitamin B1 Vitamin B12 25-OH Vitamin D Total Free T4 T3 ([facility]) Urine Creatinine Urine Total Protein Acetaminophen 07/04/18 07/05/18 07/06/18 16:44 21:15 11:50 WBC RBC Hgb Hct MCV MCH RDW Plt Count Lymph % (Auto) [place] % (Auto) Lymph # [place] # Seg Neutrophils % Seg Neuts % (Manual) Lymphocytes % (Manual) Seg Neutrophils # Seg Neutrophils # Man Lymphocytes # (Manual) Monocytes # (Manual) POC ABG pH POC ABG pCO2 POC ABG pO2 Sodium Potassium Chloride Carbon Dioxide BUN Creatinine Glucose POC Glucose 124 H 150 H 67 L Lactic Acid Uric Acid Calcium Magnesium Total Bilirubin Direct Bilirubin AST ALT Alkaline Phosphatase Ammonia C-Reactive Protein Total Protein Albumin Vitamin B1 Vitamin B12 25-OH Vitamin D Total Free T4 T3 ([facility]) Urine Creatinine Urine Total Protein Acetaminophen 07/06/18 07/06/18 07/06/18 13:32 16:27 21:13 WBC RBC Hgb Hct MCV MCH RDW Plt Count Lymph % (Auto) [place] % (Auto) Lymph # [place] # Seg Neutrophils % Seg Neuts % (Manual) Lymphocytes % (Manual) Seg Neutrophils # Seg Neutrophils # Man Lymphocytes # (Manual) Monocytes # (Manual) POC ABG pH POC ABG pCO2 POC ABG pO2 Sodium Potassium Chloride Carbon Dioxide BUN Creatinine Glucose POC Glucose 146 H 125 H 69 L Lactic Acid Uric Acid Calcium Magnesium Total Bilirubin Direct Bilirubin AST ALT Alkaline Phosphatase Ammonia C-Reactive Protein Total Protein Albumin Vitamin B1 Vitamin B12 25-OH Vitamin D Total Free T4 T3 ([place]) Urine Creatinine Urine Total Protein Acetaminophen 07/07/18 07/08/18 07/08/18 12:18 04:55 04:55 WBC RBC Hgb Hct MCV 78 L MCH 25 L RDW 18.2 H Plt Count Lymph % (Auto) [place] % (Auto) 14.8 H Lymph # [place] # 1.3 H Seg Neutrophils % Seg Neuts % (Manual) Lymphocytes % (Manual) Seg Neutrophils # Seg Neutrophils # Man Lymphocytes # (Manual) Monocytes # (Manual) POC ABG pH POC ABG pCO2 POC ABG pO2 Sodium 136 L Potassium Chloride Carbon Dioxide BUN Creatinine 0.5 L Glucose 110 H POC Glucose 132 H Lactic Acid Uric Acid Calcium 8.0 L Magnesium Total Bilirubin Direct Bilirubin AST ALT Alkaline Phosphatase Ammonia C-Reactive Protein Total Protein Albumin Vitamin B1 Vitamin B12 25-OH Vitamin D Total Free T4 T3 ([facility]) Urine Creatinine Urine Total Protein Acetaminophen 07/08/18 07/08/18 07/08/18 14:27 17:11 21:20 WBC RBC Hgb Hct MCV MCH RDW Plt Count Lymph % (Auto) [place] % (Auto) Lymph # [place] # Seg Neutrophils % Seg Neuts % (Manual) Lymphocytes % (Manual) Seg Neutrophils # Seg Neutrophils # Man Lymphocytes # (Manual) Monocytes # (Manual) POC ABG pH POC ABG pCO2 POC ABG pO2 Sodium Potassium Chloride Carbon Dioxide BUN Creatinine Glucose POC Glucose 133 H 113 H 126 H Lactic Acid Uric Acid Calcium Magnesium Total Bilirubin Direct Bilirubin AST ALT Alkaline Phosphatase Ammonia C-Reactive Protein Total Protein Albumin Vitamin B1 Vitamin B12 25-OH Vitamin D Total Free T4 T3 ([facility]) Urine Creatinine Urine Total Protein Acetaminophen 07/09/18 17:03 WBC RBC Hgb Hct MCV MCH RDW Plt Count Lymph % (Auto) [place] % (Auto) Lymph # [place] # Seg Neutrophils % Seg Neuts % (Manual) Lymphocytes % (Manual) Seg Neutrophils # Seg Neutrophils # Man Lymphocytes # (Manual) Monocytes # (Manual) POC ABG pH POC ABG pCO2 POC ABG pO2 Sodium Potassium Chloride Carbon Dioxide BUN Creatinine Glucose POC Glucose 116 H Lactic Acid Uric Acid Calcium Magnesium Total Bilirubin Direct Bilirubin AST ALT Alkaline Phosphatase Ammonia C-Reactive Protein Total Protein Albumin Vitamin B1 Vitamin B12 25-OH Vitamin D Total Free T4 T3 ([facility]) Urine Creatinine Urine Total Protein Acetaminophen Allied health notes reviewed: nursing
[2018-07-10] MEDS: LOPRESSOR PO SCH ×3 (02:20→17:17)
[2018-07-10] MEDS: LASIX PO SCH ×2 (05:26→17:18)
[2018-07-10] MEDS: DUONEB *Not for PRN Use IH SCH ×3 (08:15→21:26)
[2018-07-10] MEDS: HumaLOG SUB-Q SCH ×4 (08:50→21:16)
[2018-07-10] MEDS: ZOLOFT PO SCH (09:26)
[2018-07-10] MEDS: PEPCID PO SCH (09:26)
[2018-07-10] MEDS: ELIQUIS PO SCH ×2 (09:26→21:14)
--- NOTE | 2018-07-10 11:27 | Progress Note ---
Assessment and Plan Acute Respiratory failure following Cardiac Arrest - ? PEA from hypoglycemia or Haldol administration- now off the ventilator and on nasal canula Patient stable s/p Cardiac arrest after Haldol: listed Haldol as an Allergy/Adverse drug. Severe NICM also contributed to the event I believe. Patient stable Severe NICM, ionotrope dependent : - Cardiology recommends Hospice, dobutamine now off by Cardiology - family not in agreement for code status, hospice now pending Patient stable Acute on Chronic systolic CHF of EF 20-25%, - patient has been on hospice before, it appears she was discharged from home hospice. - cont current meds, daily ins/os/daily wt Medications optimized Permanent Atrial fib/flutter: Eliquis resumed Altered mental status, with acute encephalopathy - suspected Dementia with psychotic features: Psych following - Continue home medication Zoloft 50 mg PO daily for now Psychosis improved and her encephalopathy improved Hypoglycemia--Blood glucose was 20 during the code- resolved Hyponatremia, due to diuresis and CHF: Nephrology following Improved Elevated LFT, Likely congestive hepatopathy due to end stage NICMP, closely monitor Severe protein calorie malnutrition: Sports Journalist consulted SIRS- ?underlying PNA doubt based on xray review and lack of fever or leukocytoisis: check blood culture- NO GROWTH. Antibiotics discontinued Improved Persistently elevated Lactic acidosis:-Likely secondary to hypoperfusion- Improved Hypokalemia: Resolved -DVT prophylaxis: Patient is on Eliquis Waiting for NH placement/Hospice Subjective Date of service: 07/10/18 Principal diagnosis: altered mental status, psychosis, chronic systolic heart failure, Interval history: Shortness of breath better Able to walk on the corridor Objective - Constitutional Vitals: Vital Signs - 12hr 07/09/18 07/10/18 07/10/18 23:42 02:20 04:00 Temperature 97.0 F L 98.0 F Pulse Rate 105 H 104 H Respiratory 20 20 Rate Blood Pressure 127/68 127/68 139/75 O2 Sat by Pulse 95 100 Oximetry 07/10/18 07/10/18 07/10/18 06:29 08:33 09:26 Temperature 98.0 F Pulse Rate 97 H 94 H 97 H Respiratory 20 Rate Blood Pressure 128/85 139/75 O2 Sat by Pulse 99 Oximetry General appearance: Present: no acute distress, well-nourished - EENT Eyes: PERRL, EOM intact ENT: hearing intact, clear oral mucosa Ears: bilateral: normal - Neck Neck: supple, normal ROM - Respiratory Respiratory effort: normal Respiratory: bilateral: CTA - Breasts Breasts: normal - Cardiovascular Heart rate: 78 Rhythm: regular Heart Sounds: Present: S1 & S2. Absent: gallop, rub Extremities: pulses intact, No edema, normal color, Full ROM - Gastrointestinal General gastrointestinal: Present: soft, non-tender, non-distended, normal bowel sounds - Genitourinary Female genitourinary: normal - Integumentary Integumentary: clear, warm, dry - Musculoskeletal Musculoskeletal: 1, strength equal bilaterally - Neurologic Neurologic: moves all extremities - Psychiatric Psychiatric: memory intact, appropriate mood/affect, intact judgment & insight - Allied health notes Allied health notes reviewed: nursing, case management - Labs CBC & Chem 7: 07/08/18 04:55 07/08/18 04:55 Labs: Abnormal lab results 07/09/18 07/10/18 Range/Units 17:03 08:36 POC Glucose 116 H 128 H (70-105)
--- NOTE | 2018-07-10 11:35 | Progress Note ---
Assessment and Plan Acute Respiratory failure following Cardiac Arrest - ? PEA from hypoglycemia or Haldol administration- now off the ventilator and on nasal canula Patient stable s/p Cardiac arrest after Haldol: listed Haldol as an Allergy/Adverse drug. Severe NICM also contributed to the event I believe. Patient stable Severe NICM, ionotrope dependent : - Cardiology recommends Hospice, dobutamine now off by Cardiology - family not in agreement for code status, hospice now pending Patient stable Acute on Chronic systolic CHF of EF 20-25%, - patient has been on hospice before, it appears she was discharged from home hospice. 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 Antibiotics discontinued Improved Persistently elevated Lactic acidosis:-Likely secondary to hypoperfusion- Improved Hypokalemia: Resolved -DVT prophylaxis: Patient is on Eliquis Waiting for NH placement/Hospice Subjective Date of service: 07/10/18 Principal diagnosis: altered mental status, psychosis, chronic systolic heart failure, Interval history: Shortness of breath better Able to walk on the corridor Waiting to go to NH/Hospice Objective - Exam Narrative Exam: Sitting at the edge of the bed comfortably - Constitutional Vitals: Vital Signs - 12hr 07/09/18 07/10/18 07/10/18 23:42 02:20 04:00 Temperature 97.0 F L 98.0 F Pulse Rate 105 H 104 H Respiratory 20 20 Rate Blood Pressure 127/68 127/68 139/75 O2 Sat by Pulse 95 100 Oximetry 07/10/18 07/10/18 07/10/18 06:29 08:33 09:26 Temperature 98.0 F Pulse Rate 97 H 94 H 97 H Respiratory 20 Rate Blood Pressure 128/85 139/75 O2 Sat by Pulse 99 Oximetry General appearance: Present: no acute distress, well-nourished - EENT Eyes: PERRL, EOM intact ENT: hearing intact, clear oral mucosa Ears: bilateral: normal - Neck Neck: supple, normal ROM - Respiratory Respiratory effort: normal Respiratory: bilateral: CTA - Breasts Breasts: normal - Cardiovascular Heart rate: 96 (A fib) Rhythm: irregularly irregular Heart Sounds: Present: S1 & S2. Absent: gallop, rub Extremities: pulses intact, No edema, normal color, Full ROM - Gastrointestinal General gastrointestinal: Present: soft, non-tender, non-distended, normal bowel sounds - Genitourinary Female genitourinary: normal - Integumentary Integumentary: clear, warm, dry - Musculoskeletal Musculoskeletal: 1, strength equal bilaterally - Neurologic Neurologic: moves all extremities - Psychiatric Psychiatric: memory intact, appropriate mood/affect, intact judgment & insight - Allied health notes Allied health notes reviewed: nursing, case management - Labs CBC & Chem 7: 07/08/18 04:55 07/08/18 04:55 Labs: Abnormal lab results 07/09/18 07/10/18 Range/Units 17:03 08:36 POC Glucose 116 H 128 H (70-105)
--- NOTE | 2018-07-10 12:17 | Progress Note ---
Assessment and Plan 1. Chronic combined systolic and diastolic heart failure 2. Dilated cardiomyopathy LV ejection fraction 20-25% 3. Severe depression 4. Chronic atrial fibrillation 5. AMS Plan. Cardiac valle stable continue present cardiac medication. Subjective Date of service: 07/10/18 Principal diagnosis: altered mental status, psychosis, chronic systolic heart failure, Interval history: No cardiac symptoms Objective Vital Signs Temp Pulse Pulse Resp Resp BP Pulse Ox 07/10/18 09:26 97 H 139/75 07/10/18 08:33 98.0 F 94 H 20 128/85 99 07/10/18 06:29 97 H 07/10/18 04:00 98.0 F 104 H 20 139/75 100 07/10/18 02:20 127/68 07/09/18 23:42 97.0 F L 105 H 20 127/68 95 07/09/18 22:57 101 H 07/09/18 15:58 97.9 F 77 18 113/56 80 L 07/09/18 14:25 108 H 16 07/09/18 14:13 104 H 16 07/09/18 13:15 97.7 F 95 H 20 126/77 98 - Physical Examination General: No Apparent Distress, Cachectic HEENT: Positive: PERRL Neck: Positive: trachea midline Cardiac: Positive: Regular Rate, S3, Laterally Displaced Lungs: Positive: clear to auscultation, No Wheeze, Rales, Rhonchi Neuro: Positive: Grossly Intact Abdomen: Positive: Unremarkable, Active Bowel Sounds Skin: Positive: Clear Extremities: Absent: edema - Allied health notes Allied health notes reviewed: nursing
[2018-07-10] MEDS: TYLENOL PO PRN (16:20)
[2018-07-10] MEDS: LANOXIN PO SCH (17:17)
--- NOTE | 2018-07-10 17:27 | Progress Note ---
Assessment and Plan Patient sleeping at this time. Patient is on 2 litres o2. O2 saturation 100% .No acute respiratory distress.Patient afebrile. No leukocytosis. - Patient Problems (1) Cardiac arrest Current Visit: Yes Status: Acute Plan to address problem: Patient successfully resuciated. Patient resting on 2 litres O2. (2) Acute respiratory failure with hypoxia Current Visit: Yes Status: Acute Plan to address problem: Patient sleeping on 2 litres O2. O2 saturation 100%. (3) Acute kidney failure with tubular necrosis Current Visit: Yes Status: Acute Plan to address problem: Management as per nephrology. (4) Altered mental status Current Visit: Yes Status: Acute Plan to address problem: Improving. Still confusing at times. (5) Paroxysmal atrial fibrillation Current Visit: Yes Status: Acute Plan to address problem: Patient is on Apixaban. Management as per cardiology. (6) Acute on chronic systolic heart failure Current Visit: No Status: Acute Plan to address problem: Management as per cardiology. (7) HTN (hypertension) Current Visit: No Status: Chronic Plan to address problem: Management as per primary care. (8) Left lower lobe pulmonary infiltrate Current Visit: Yes Status: Acute Plan to address problem: Patient afebrile. No leukocytosis. Repeat chest xray PA and Lateral reported volume Overload. Subjective Date of service: 07/10/18 Principal diagnosis: altered mental status, psychosis, chronic systolic heart failure, Interval history: Patient sleeping at this time. Patient is on 2 litres o2. O2 saturation 100% .No acute respiratory distress.Patient afebrile. No leukocytosis. Objective Vital Signs - 12hr 07/10/18 07/10/18 07/10/18 06:29 08:33 09:26 Temperature 98.0 F Pulse Rate 97 H 94 H 97 H Pulse Rate [ Apical] Pulse Rate [ Left Dorsalis Pedis] Pulse Rate [ Left Radial] Pulse Rate [ Right Dorsalis Pedis] Pulse Rate [ Right Radial] Respiratory 20 Rate Blood Pressure 128/85 139/75 O2 Sat by Pulse 99 Oximetry 07/10/18 07/10/18 07/10/18 10:00 16:20 17:17 Temperature 98.0 F Pulse Rate 90 97 H Pulse Rate [ 97 H Apical] Pulse Rate [ 97 H Left Dorsalis Pedis] Pulse Rate [ 97 H Left Radial] Pulse Rate [ 97 H Right Dorsalis Pedis] Pulse Rate [ 97 H Right Radial] Respiratory 19 18 Rate Blood Pressure 124/78 124/78 O2 Sat by Pulse 98 96 Oximetry Constitutional: no acute distress, alert, other (Confusing at times.) Eyes: non-icteric, other (Pupils 4mm, sluggichly reacting to light) ENT: oropharynx dry, other (extubated) Neck: supple, no lymphadenopathy, no JVD, other (no thyromegaly) Effort: normal Ascultation: Bilateral: diminished breath sounds, rales Percussion: Bilateral: not dull Cardiovascular: irregular rhythm, other (S1,S2,) Gastrointestinal: normoactive bowel sounds, soft, non-tender, non-distended Integumentary: rash (exematoid rash to upper chest) Extremities: no cyanosis, no edema, pulses normal, no ischemia or petechiae Neurologic: normal mental status, non-focal exam (grossly), pupils equal and round, CN II-XII normal Psychiatric: depressed CBC and BMP: 07/11/18 03:22 07/11/18 03:22 ABG, PT/INR, D-dimer: ABG POC ABG pH 7.552 (7.35-7.45) H 06/28/18 10:53 POC ABG pCO2 40.8 (35-45) 06/28/18 10:53 POC ABG pO2 83 (80-105) 06/28/18 10:53 POC ABG HCO3 35.9 (22-26 mml/L) 06/28/18 10:53 POC ABG Total CO2 37 (23-27mmol/L) 06/28/18 10:53 POC ABG O2 Sat 97 06/28/18 10:53 Abnormal lab findings: Abnormal Labs 06/16/18 06/16/18 06/16/18 21:05 21:43 21:43 WBC RBC Hgb Hct MCV MCH RDW Plt Count Lymph % (Auto) [place] % (Auto) Lymph # [place] # Seg Neutrophils % Seg Neuts % (Manual) Lymphocytes % (Manual) Seg Neutrophils # Seg Neutrophils # Man Lymphocytes # (Manual) Monocytes # (Manual) POC ABG pH POC ABG pCO2 POC ABG pO2 Sodium 129 L Potassium Chloride 95.3 L Carbon Dioxide 14 L BUN 23 H Creatinine Glucose 146 H POC Glucose < 40 L Lactic Acid Uric Acid Calcium Magnesium Total Bilirubin Direct Bilirubin AST ALT Alkaline Phosphatase Ammonia C-Reactive Protein Total Protein Albumin Vitamin B1 Vitamin B12 25-OH Vitamin D Total Free T4 T3 (GILSON) Urine Creatinine Urine Total Protein Acetaminophen < 5.0 L 06/16/18 06/16/18 06/16/18 21:43 21:43 22:27 WBC RBC 5.70 H Hgb Hct 44.6 H MCV 78 L MCH 25 L RDW 18.7 H Plt Count Lymph % (Auto) [place] % (Auto) Lymph # [place] # Seg Neutrophils % 78.8 H Seg Neuts % (Manual) Lymphocytes % (Manual) Seg Neutrophils # Seg Neutrophils # Man Lymphocytes # (Manual) Monocytes # (Manual) POC ABG pH POC ABG pCO2 POC ABG pO2 Sodium Potassium Chloride Carbon Dioxide BUN Creatinine Glucose POC Glucose 121 H Lactic Acid Uric Acid Calcium Magnesium Total Bilirubin Direct Bilirubin AST ALT Alkaline Phosphatase Ammonia C-Reactive Protein Total Protein Albumin Vitamin B1 Vitamin B12 25-OH Vitamin D Total Free T4 1.87 H T3 (GILSON) Urine Creatinine Urine Total Protein Acetaminophen 06/16/18 06/16/18 06/17/18 22:33 23:43 03:56 WBC RBC Hgb Hct MCV MCH RDW Plt Count Lymph % (Auto) [place] % (Auto) Lymph # [place] # Seg Neutrophils % Seg Neuts % (Manual) Lymphocytes % (Manual) Seg Neutrophils # Seg Neutrophils # Man Lymphocytes # (Manual) Monocytes # (Manual) POC ABG pH POC ABG pCO2 POC ABG pO2 Sodium Potassium Chloride Carbon Dioxide BUN Creatinine Glucose POC Glucose Lactic Acid 4.40 H* 4.30 H* 3.10 H* Uric Acid Calcium Magnesium Total Bilirubin Direct Bilirubin AST ALT Alkaline Phosphatase Ammonia C-Reactive Protein Total Protein Albumin Vitamin B1 Vitamin B12 25-OH Vitamin D Total Free T4 T3 (GILSON) Urine Creatinine Urine Total Protein Acetaminophen 06/17/18 06/17/18 06/17/18 08:35 08:40 11:00 WBC RBC Hgb Hct MCV MCH RDW Plt Count Lymph % (Auto) [place] % (Auto) Lymph # [place] # Seg Neutrophils % Seg Neuts % (Manual) Lymphocytes % (Manual) Seg Neutrophils # Seg Neutrophils # Man Lymphocytes # (Manual) Monocytes # (Manual) POC ABG pH POC ABG pCO2 POC ABG pO2 Sodium Potassium Chloride Carbon Dioxide BUN Creatinine Glucose POC Glucose 56 L Lactic Acid 2.70 H* 3.40 H* Uric Acid Calcium Magnesium Total Bilirubin Direct Bilirubin AST ALT Alkaline Phosphatase Ammonia C-Reactive Protein Total Protein Albumin Vitamin B1 Vitamin B12 25-OH Vitamin D Total Free T4 T3 (GILSON) Urine Creatinine Urine Total Protein Acetaminophen 06/17/18 06/17/18 06/17/18 11:00 11:00 11:00 WBC 11.9 H RBC 5.25 H Hgb Hct MCV MCH 25 L RDW 18.6 H Plt Count Lymph % (Auto) [place] % (Auto) Lymph # [place] # Seg Neutrophils % Seg Neuts % (Manual) Lymphocytes % (Manual) Seg Neutrophils # Seg Neutrophils # Man Lymphocytes # (Manual) Monocytes # (Manual) POC ABG pH POC ABG pCO2 POC ABG pO2 Sodium 128 L Potassium Chloride 95.6 L Carbon Dioxide 15 L BUN 22 H Creatinine Glucose 110 H POC Glucose Lactic Acid Uric Acid Calcium 8.3 L Magnesium Total Bilirubin Direct Bilirubin 1.6 H AST 66 H ALT Alkaline Phosphatase 178 H Ammonia C-Reactive Protein Total Protein 4.7 L Albumin 2.4 L Vitamin B1 Vitamin B12 25-OH Vitamin D Total Free T4 T3 (GILSON) Urine Creatinine Urine Total Protein Acetaminophen 06/17/18 06/17/18 06/17/18 15:08 15:08 23:00 WBC RBC Hgb Hct MCV MCH RDW Plt Count Lymph % (Auto) [place] % (Auto) Lymph # [place] # Seg Neutrophils % Seg Neuts % (Manual) Lymphocytes % (Manual) Seg Neutrophils # Seg Neutrophils # Man Lymphocytes # (Manual) Monocytes # (Manual) POC ABG pH POC ABG pCO2 POC ABG pO2 Sodium Potassium Chloride Carbon Dioxide BUN Creatinine Glucose POC Glucose Lactic Acid 4.00 H* Uric Acid Calcium Magnesium Total Bilirubin Direct Bilirubin AST ALT Alkaline Phosphatase Ammonia 10.0 L C-Reactive Protein Total Protein Albumin Vitamin B1 Vitamin B12 25-OH Vitamin D Total Free T4 1.53 H T3 (GILSON) Urine Creatinine Urine Total Protein Acetaminophen 06/18/18 06/18/18 06/18/18 08:59 08:59 12:49 WBC RBC 5.29 H Hgb Hct MCV 78 L MCH 25 L RDW 18.4 H Plt Count Lymph % (Auto) [place] % (Auto) Lymph # [place] # Seg Neutrophils % Seg Neuts % (Manual) Lymphocytes % (Manual) Seg Neutrophils # Seg Neutrophils # Man Lymphocytes # (Manual) Monocytes # (Manual) POC ABG pH POC ABG pCO2 POC ABG pO2 Sodium 128 L Potassium 5.9 H D Chloride 96.1 L Carbon Dioxide 20 L BUN 22 H Creatinine Glucose POC Glucose 60 L Lactic Acid Uric Acid Calcium Magnesium Total Bilirubin Direct Bilirubin AST ALT Alkaline Phosphatase Ammonia C-Reactive Protein Total Protein Albumin Vitamin B1 Vitamin B12 25-OH Vitamin D Total Free T4 T3 (GILSON) Urine Creatinine Urine Total Protein Acetaminophen 06/18/18 06/19/18 06/19/18 21:28 12:14 13:23 WBC RBC Hgb Hct MCV MCH RDW Plt Count Lymph % (Auto) [place] % (Auto) Lymph # [place] # Seg Neutrophils % Seg Neuts % (Manual) Lymphocytes % (Manual) Seg Neutrophils # Seg Neutrophils # Man Lymphocytes # (Manual) Monocytes # (Manual) POC ABG pH POC ABG pCO2 POC ABG pO2 Sodium 122 L Potassium 5.4 H Chloride 95.0 L Carbon Dioxide 13 L D BUN 21 H Creatinine Glucose 119 H POC Glucose 114 H Lactic Acid Uric Acid Calcium 8.3 L Magnesium Total Bilirubin Direct Bilirubin AST ALT Alkaline Phosphatase Ammonia C-Reactive Protein Total Protein Albumin Vitamin B1 Vitamin B12 25-OH Vitamin D Total Free T4 T3 (GILSON) Urine Creatinine Urine Total Protein Acetaminophen 06/19/18 06/19/18 06/19/18 14:47 16:38 22:42 WBC RBC 5.51 H Hgb Hct 45.3 H MCV MCH 25 L RDW 18.6 H Plt Count Lymph % (Auto) [place] % (Auto) Lymph # [place] # Seg Neutrophils % Seg Neuts % (Manual) Lymphocytes % (Manual) Seg Neutrophils # Seg Neutrophils # Man Lymphocytes # (Manual) Monocytes # (Manual) POC ABG pH POC ABG pCO2 POC ABG pO2 Sodium Potassium Chloride Carbon Dioxide BUN Creatinine Glucose POC Glucose 108 H 49 L Lactic Acid Uric Acid Calcium Magnesium Total Bilirubin Direct Bilirubin AST ALT Alkaline Phosphatase Ammonia C-Reactive Protein Total Protein Albumin Vitamin B1 Vitamin B12 25-OH Vitamin D Total Free T4 T3 (GILSON) Urine Creatinine Urine Total Protein Acetaminophen 06/19/18 06/20/18 06/20/18 Unknown 07:31 16:51 WBC RBC Hgb Hct MCV MCH RDW Plt Count Lymph % (Auto) [place] % (Auto) Lymph # [place] # Seg Neutrophils % Seg Neuts % (Manual) Lymphocytes % (Manual) Seg Neutrophils # Seg Neutrophils # Man Lymphocytes # (Manual) Monocytes # (Manual) POC ABG pH POC ABG pCO2 POC ABG pO2 Sodium 132 L D Potassium Chloride 94.3 L Carbon Dioxide BUN 20 H Creatinine Glucose POC Glucose Lactic Acid Uric Acid 8.6 H Calcium Magnesium 1.30 L Total Bilirubin Direct Bilirubin AST ALT Alkaline Phosphatase Ammonia C-Reactive Protein Total Protein Albumin Vitamin B1 Vitamin B12 25-OH Vitamin D Total Free T4 T3 (GILSON) 58 L Urine Creatinine 61.7 H Urine Total Protein 32 H Acetaminophen 06/20/18 06/20/18 06/21/18 20:53 20:53 16:27 WBC RBC Hgb Hct MCV MCH RDW Plt Count Lymph % (Auto) [place] % (Auto) Lymph # [place] # Seg Neutrophils % Seg Neuts % (Manual) Lymphocytes % (Manual) Seg Neutrophils # Seg Neutrophils # Man Lymphocytes # (Manual) Monocytes # (Manual) POC ABG pH POC ABG pCO2 POC ABG pO2 Sodium Potassium Chloride Carbon Dioxide BUN Creatinine Glucose POC Glucose Lactic Acid Uric Acid 9.2 H Calcium Magnesium Total Bilirubin Direct Bilirubin AST ALT Alkaline Phosphatase Ammonia C-Reactive Protein Total Protein Albumin Vitamin B1 Vitamin B12 1598 H 25-OH Vitamin D Total 10 L Free T4 T3 (GILSON) Urine Creatinine Urine Total Protein Acetaminophen 06/21/18 06/21/18 06/21/18 16:27 16:27 16:27 WBC RBC 5.26 H Hgb Hct MCV 77 L MCH 26 L RDW 17.7 H Plt Count Lymph % (Auto) [place] % (Auto) Lymph # [place] # Seg Neutrophils % Seg Neuts % (Manual) Lymphocytes % (Manual) Seg Neutrophils # Seg Neutrophils # Man Lymphocytes # (Manual) Monocytes # (Manual) POC ABG pH POC ABG pCO2 POC ABG pO2 Sodium 130 L Potassium Chloride 95.6 L Carbon Dioxide BUN 24 H Creatinine Glucose POC Glucose Lactic Acid Uric Acid Calcium Magnesium Total Bilirubin Direct Bilirubin AST ALT Alkaline Phosphatase Ammonia C-Reactive Protein Total Protein Albumin Vitamin B1 <6 L Vitamin B12 25-OH Vitamin D Total Free T4 T3 (GILSON) Urine Creatinine Urine Total Protein Acetaminophen 06/21/18 06/22/18 06/23/18 21:44 21:42 14:54 WBC RBC 5.07 H Hgb Hct MCV 78 L MCH 25 L RDW 18.5 H Plt Count Lymph % (Auto) [place] % (Auto) 12.3 H Lymph # 1.[address] [place] # Seg Neutrophils % Seg Neuts % (Manual) Lymphocytes % (Manual) Seg Neutrophils # Seg Neutrophils # Man Lymphocytes # (Manual) Monocytes # (Manual) POC ABG pH POC ABG pCO2 POC ABG pO2 Sodium Potassium Chloride Carbon Dioxide BUN Creatinine Glucose POC Glucose 126 H 114 H Lactic Acid Uric Acid Calcium Magnesium Total Bilirubin Direct Bilirubin AST ALT Alkaline Phosphatase Ammonia C-Reactive Protein Total Protein Albumin Vitamin B1 Vitamin B12 25-OH Vitamin D Total Free T4 T3 (GILSNO) Urine Creatinine Urine Total Protein Acetaminophen 06/23/18 06/25/18 06/25/18 14:54 00:00 00:00 WBC 3.6 L RBC 5.31 H Hgb Hct MCV 77 L MCH 26 L RDW 19.0 H Plt Count Lymph % (Auto) [place] % (Auto) 10.2 H Lymph # [place] # Seg Neutrophils % Seg Neuts % (Manual) Lymphocytes % (Manual) Seg Neutrophils # Seg Neutrophils # Man Lymphocytes # (Manual) Monocytes # (Manual) POC ABG pH POC ABG pCO2 POC ABG pO2 Sodium 132 L 131 L Potassium 3.5 L Chloride 91.5 L 93.5 L Carbon Dioxide BUN 19 H 21 H Creatinine Glucose POC Glucose Lactic Acid Uric Acid Calcium 8.1 L Magnesium Total Bilirubin 2.80 H 2.70 H Direct Bilirubin AST 52 H 81 H ALT Alkaline Phosphatase 231 H 243 H Ammonia C-Reactive Protein Total Protein 5.5 L 5.5 L Albumin 2.8 L 2.7 L Vitamin B1 Vitamin B12 25-OH Vitamin D Total Free T4 T3 (GILSON) Urine Creatinine Urine Total Protein Acetaminophen 06/25/18 06/25/18 06/25/18 16:02 16:02 16:18 WBC 3.9 L RBC 5.78 H Hgb 14.6 H Hct 45.4 H MCV MCH 25 L RDW 19.2 H Plt Count Lymph % (Auto) [place] % (Auto) Lymph # [place] # Seg Neutrophils % Seg Neuts % (Manual) Lymphocytes % (Manual) Seg Neutrophils # Seg Neutrophils # Man Lymphocytes # (Manual) 1.1 L Monocytes # (Manual) POC ABG pH POC ABG pCO2 POC ABG pO2 Sodium 131 L Potassium Chloride 90.0 L Carbon Dioxide BUN 25 H Creatinine 1.4 H Glucose POC Glucose Lactic Acid 4.00 H* Uric Acid Calcium Magnesium Total Bilirubin 3.10 H Direct Bilirubin AST 68 H ALT Alkaline Phosphatase 296 H Ammonia C-Reactive Protein Total Protein 6.1 L Albumin 3.3 L Vitamin B1 Vitamin B12 25-OH Vitamin D Total Free T4 T3 (GILSON) Urine Creatinine Urine Total Protein Acetaminophen 06/25/18 06/26/18 06/26/18 21:06 11:33 11:37 WBC RBC Hgb Hct MCV MCH 26 L RDW 19.2 H Plt Count 139 L Lymph % (Auto) [place] % (Auto) Lymph # [place] # Seg Neutrophils % Seg Neuts % (Manual) 85.0 H Lymphocytes % (Manual) 6.0 L Seg Neutrophils # Seg Neutrophils # Man 8.0 H Lymphocytes # (Manual) 0.6 L Monocytes # (Manual) POC ABG pH POC ABG pCO2 POC ABG pO2 Sodium Potassium Chloride Carbon Dioxide BUN Creatinine Glucose POC Glucose < 40 L Lactic Acid 6.40 H* Uric Acid Calcium Magnesium Total Bilirubin Direct Bilirubin AST ALT Alkaline Phosphatase Ammonia C-Reactive Protein Total Protein Albumin Vitamin B1 Vitamin B12 25-OH Vitamin D Total Free T4 T3 (GILSON) Urine Creatinine Urine Total Protein Acetaminophen 06/26/18 06/26/18 06/26/18 11:37 11:51 11:59 WBC RBC Hgb Hct MCV MCH RDW Plt Count Lymph % (Auto) [place] % (Auto) Lymph # [place] # Seg Neutrophils % Seg Neuts % (Manual) Lymphocytes % (Manual) Seg Neutrophils # Seg Neutrophils # Man Lymphocytes # (Manual) Monocytes # (Manual) POC ABG pH 7.029 L POC ABG pCO2 POC ABG pO2 73 L Sodium 129 L Potassium Chloride 87.0 L Carbon Dioxide 11 L D BUN 31 H Creatinine 1.9 H Glucose 206 H POC Glucose 253 H Lactic Acid Uric Acid Calcium 7.9 L Magnesium Total Bilirubin 2.90 H Direct Bilirubin AST 98 H ALT Alkaline Phosphatase 196 H Ammonia C-Reactive Protein Total Protein 4.3 L D Albumin 2.2 L Vitamin B1 Vitamin B12 25-OH Vitamin D Total Free T4 T3 (GILSON) Urine Creatinine Urine Total Protein Acetaminophen 06/26/18 06/26/18 06/26/18 14:54 15:08 15:10 WBC 14.2 H RBC 5.66 H Hgb 14.5 H Hct 45.6 H D MCV MCH 26 L RDW 19.4 H Plt Count Lymph % (Auto) [place] % (Auto) Lymph # [place] # Seg Neutrophils % Seg Neuts % (Manual) 88.0 H Lymphocytes % (Manual) 5.0 L Seg Neutrophils # Seg Neutrophils # Man 12.5 H Lymphocytes # (Manual) 0.7 L Monocytes # (Manual) 0.9 H POC ABG pH POC ABG pCO2 POC ABG pO2 Sodium Potassium Chloride Carbon Dioxide BUN Creatinine Glucose POC Glucose 172 H Lactic Acid 11.90 H* Uric Acid Calcium Magnesium Total Bilirubin Direct Bilirubin AST ALT Alkaline Phosphatase Ammonia C-Reactive Protein Total Protein Albumin Vitamin B1 Vitamin B12 25-OH Vitamin D Total Free T4 T3 (GILSON) Urine Creatinine Urine Total Protein Acetaminophen 06/26/18 06/26/18 06/26/18 16:01 18:47 20:55 WBC RBC Hgb Hct MCV MCH RDW Plt Count Lymph % (Auto) [place] % (Auto) Lymph # [place] # Seg Neutrophils % Seg Neuts % (Manual) Lymphocytes % (Manual) Seg Neutrophils # Seg Neutrophils # Man Lymphocytes # (Manual) Monocytes # (Manual) POC ABG pH POC ABG pCO2 34.0 L POC ABG pO2 Sodium Potassium Chloride Carbon Dioxide BUN Creatinine Glucose POC Glucose 183 H 131 H Lactic Acid Uric Acid Calcium Magnesium Total Bilirubin Direct Bilirubin AST ALT Alkaline Phosphatase Ammonia C-Reactive Protein Total Protein Albumin Vitamin B1 Vitamin B12 25-OH Vitamin D Total Free T4 T3 (GILSON) Urine Creatinine Urine Total Protein Acetaminophen 06/26/18 06/27/18 06/27/18 21:55 09:29 09:29 WBC RBC Hgb Hct MCV MCH RDW Plt Count Lymph % (Auto) [place] % (Auto) Lymph # [place] # Seg Neutrophils % Seg Neuts % (Manual) Lymphocytes % (Manual) Seg Neutrophils # Seg Neutrophils # Man Lymphocytes # (Manual) Monocytes # (Manual) POC ABG pH POC ABG pCO2 POC ABG pO2 Sodium 135 L 135 L Potassium 3.5 L Chloride 91.7 L 91.2 L Carbon Dioxide BUN 35 H 37 H Creatinine 2.3 H 2.1 H Glucose 147 H 104 H POC Glucose Lactic Acid Uric Acid Calcium 8.3 L 8.1 L Magnesium Total Bilirubin 3.50 H Direct Bilirubin AST 218 H ALT 57 H Alkaline Phosphatase 197 H Ammonia C-Reactive Protein Total Protein 5.0 L Albumin 2.3 L Vitamin B1 Vitamin B12 25-OH Vitamin D Total Free T4 1.78 H T3 (GILSON) Urine Creatinine Urine Total Protein Acetaminophen 06/27/18 06/27/18 06/27/18 09:29 09:29 10:00 WBC 16.3 H RBC 5.44 H Hgb Hct MCV 76 L MCH 25 L RDW 18.3 H Plt Count Lymph % (Auto) [place] % (Auto) Lymph # [place] # Seg Neutrophils % Seg Neuts % (Manual) 91.0 H Lymphocytes % (Manual) 3.0 L Seg Neutrophils # Seg Neutrophils # Man 14.8 H Lymphocytes # (Manual) 0.5 L Monocytes # (Manual) 1.0 H POC ABG pH POC ABG pCO2 POC ABG pO2 Sodium Potassium Chloride Carbon Dioxide BUN Creatinine Glucose POC Glucose 106 H Lactic Acid 4.00 H* Uric Acid Calcium Magnesium Total Bilirubin Direct Bilirubin AST ALT Alkaline Phosphatase Ammonia C-Reactive Protein Total Protein Albumin Vitamin B1 Vitamin B12 25-OH Vitamin D Total Free T4 T3 (GILSON) Urine Creatinine Urine Total Protein Acetaminophen 06/27/18 06/27/18 06/27/18 11:51 12:50 13:39 WBC RBC Hgb Hct MCV MCH RDW Plt Count Lymph % (Auto) [place] % (Auto) Lymph # [place] # Seg Neutrophils % Seg Neuts % (Manual) Lymphocytes % (Manual) Seg Neutrophils # Seg Neutrophils # Man Lymphocytes # (Manual) Monocytes # (Manual) POC ABG pH 7.584 H POC ABG pCO2 32.8 L POC ABG pO2 109 H Sodium Potassium Chloride Carbon Dioxide BUN Creatinine Glucose POC Glucose 112 H Lactic Acid 3.20 H* Uric Acid Calcium Magnesium Total Bilirubin Direct Bilirubin AST ALT Alkaline Phosphatase Ammonia C-Reactive Protein Total Protein Albumin Vitamin B1 Vitamin B12 25-OH Vitamin D Total Free T4 T3 (GILSON) Urine Creatinine Urine Total Protein Acetaminophen 06/27/18 06/27/18 06/27/18 19:31 21:50 23:10 WBC RBC Hgb Hct MCV MCH RDW Plt Count Lymph % (Auto) [place] % (Auto) Lymph # [place] # Seg Neutrophils % Seg Neuts % (Manual) Lymphocytes % (Manual) Seg Neutrophils # Seg Neutrophils # Man Lymphocytes # (Manual) Monocytes # (Manual) POC ABG pH POC ABG pCO2 POC ABG pO2 Sodium Potassium Chloride Carbon Dioxide BUN Creatinine Glucose POC Glucose Lactic Acid 2.40 H* 2.30 H* 2.30 H* Uric Acid Calcium Magnesium Total Bilirubin Direct Bilirubin AST ALT Alkaline Phosphatase Ammonia C-Reactive Protein Total Protein Albumin Vitamin B1 Vitamin B12 25-OH Vitamin D Total Free T4 T3 (GILSON) Urine Creatinine Urine Total Protein Acetaminophen 06/28/18 06/28/18 06/28/18 02:35 05:00 05:00 WBC RBC Hgb Hct MCV MCH RDW Plt Count Lymph % (Auto) [place] % (Auto) Lymph # [place] # Seg Neutrophils % Seg Neuts % (Manual) Lymphocytes % (Manual) Seg Neutrophils # Seg Neutrophils # Man Lymphocytes # (Manual) Monocytes # (Manual) POC ABG pH POC ABG pCO2 POC ABG pO2 Sodium 134 L Potassium 2.6 L* D Chloride 92.3 L Carbon Dioxide 32 H BUN 34 H Creatinine 1.8 H Glucose 127 H POC Glucose Lactic Acid 2.20 H* 2.30 H* Uric Acid Calcium 7.5 L Magnesium Total Bilirubin 3.50 H Direct Bilirubin AST 226 H ALT 60 H Alkaline Phosphatase 172 H Ammonia C-Reactive Protein Total Protein 4.2 L Albumin 2.0 L Vitamin B1 Vitamin B12 25-OH Vitamin D Total Free T4 T3 (GILSON) Urine Creatinine Urine Total Protein Acetaminophen 06/28/18 06/28/18 06/28/18 05:00 08:30 08:30 WBC 15.7 H RBC Hgb Hct MCV 77 L MCH 25 L RDW 18.5 H Plt Count 112 L Lymph % (Auto) 6.[address] [place] % (Auto) 10.0 H Lymph # 0.[address] [place] # 1.6 H Seg Neutrophils % 83.4 H Seg Neuts % (Manual) Lymphocytes % (Manual) Seg Neutrophils # 13.1 H Seg Neutrophils # Man Lymphocytes # (Manual) Monocytes # (Manual) POC ABG pH POC ABG pCO2 POC ABG pO2 Sodium Potassium Chloride Carbon Dioxide BUN Creatinine Glucose POC Glucose Lactic Acid 2.40 H* Uric Acid Calcium Magnesium Total Bilirubin Direct Bilirubin AST ALT Alkaline Phosphatase Ammonia C-Reactive Protein 4.80 H Total Protein Albumin Vitamin B1 Vitamin B12 25-OH Vitamin D Total Free T4 T3 (GILSON) Urine Creatinine Urine Total Protein Acetaminophen 06/28/18 06/28/18 06/28/18 10:53 11:23 18:35 WBC RBC Hgb Hct MCV MCH RDW Plt Count Lymph % (Auto) [place] % (Auto) Lymph # [place] # Seg Neutrophils % Seg Neuts % (Manual) Lymphocytes % (Manual) Seg Neutrophils # Seg Neutrophils # Man Lymphocytes # (Manual) Monocytes # (Manual) POC ABG pH 7.552 H POC ABG pCO2 POC ABG pO2 Sodium Potassium 3.1 L Chloride Carbon Dioxide BUN Creatinine Glucose POC Glucose 122 H Lactic Acid Uric Acid Calcium Magnesium Total Bilirubin Direct Bilirubin AST ALT Alkaline Phosphatase Ammonia C-Reactive Protein Total Protein Albumin Vitamin B1 Vitamin B12 25-OH Vitamin D Total Free T4 T3 (GILSON) Urine Creatinine Urine Total Protein Acetaminophen 06/29/18 06/29/18 06/29/18 06:40 06:40 19:44 WBC 14.6 H RBC Hgb Hct MCV 77 L MCH 25 L RDW 19.3 H Plt Count 88 L Lymph % (Auto) [place] % (Auto) Lymph # [place] # Seg Neutrophils % Seg Neuts % (Manual) Lymphocytes % (Manual) Seg Neutrophils # Seg Neutrophils # Man Lymphocytes # (Manual) Monocytes # (Manual) POC ABG pH POC ABG pCO2 POC ABG pO2 Sodium Potassium 2.7 L* Chloride 95.3 L Carbon Dioxide 32 H BUN 25 H Creatinine Glucose 145 H POC Glucose 59 L Lactic Acid Uric Acid Calcium 7.9 L Magnesium Total Bilirubin 3.60 H Direct Bilirubin AST 213 H ALT Alkaline Phosphatase 176 H Ammonia C-Reactive Protein Total Protein 4.8 L Albumin 2.2 L Vitamin B1 Vitamin B12 25-OH Vitamin D Total Free T4 T3 (GILSON) Urine Creatinine Urine Total Protein Acetaminophen 06/29/18 06/30/18 06/30/18 20:43 02:37 04:45 WBC RBC Hgb Hct MCV MCH RDW Plt Count Lymph % (Auto) [place] % (Auto) Lymph # [place] # Seg Neutrophils % Seg Neuts % (Manual) Lymphocytes % (Manual) Seg Neutrophils # Seg Neutrophils # Man Lymphocytes # (Manual) Monocytes # (Manual) POC ABG pH POC ABG pCO2 POC ABG pO2 Sodium Potassium 3.1 L 2.8 L* Chloride Carbon Dioxide 31 H BUN 18 H Creatinine Glucose POC Glucose 59 L Lactic Acid Uric Acid Calcium 8.0 L Magnesium Total Bilirubin 3.70 H Direct Bilirubin AST 216 H ALT 63 H Alkaline Phosphatase 163 H Ammonia C-Reactive Protein Total Protein 4.5 L Albumin 2.1 L Vitamin B1 Vitamin B12 25-OH Vitamin D Total Free T4 T3 (GILSON) Urine Creatinine Urine Total Protein Acetaminophen 06/30/18 06/30/18 07/01/18 04:45 06:24 04:39 WBC 12.1 H RBC Hgb Hct MCV 78 L 77 L MCH 25 L 25 L RDW 19.0 H 19.3 H Plt Count 91 L 77 L Lymph % (Auto) [place] % (Auto) Lymph # [place] # Seg Neutrophils % Seg Neuts % (Manual) Lymphocytes % (Manual) Seg Neutrophils # Seg Neutrophils # Man Lymphocytes # (Manual) Monocytes # (Manual) POC ABG pH POC ABG pCO2 POC ABG pO2 Sodium Potassium Chloride Carbon Dioxide BUN Creatinine Glucose POC Glucose 63 L Lactic Acid Uric Acid Calcium Magnesium Total Bilirubin Direct Bilirubin AST ALT Alkaline Phosphatase Ammonia C-Reactive Protein Total Protein Albumin Vitamin B1 Vitamin B12 25-OH Vitamin D Total Free T4 T3 ([facility]ILSON) Urine Creatinine Urine Total Protein Acetaminophen 07/01/18 07/01/18 07/02/18 04:39 11:12 05:23 WBC RBC Hgb Hct MCV 77 L MCH 25 L RDW 19.2 H Plt Count 78 L Lymph % (Auto) [place] % (Auto) Lymph # [place] # Seg Neutrophils % Seg Neuts % (Manual) Lymphocytes % (Manual) Seg Neutrophils # Seg Neutrophils # Man Lymphocytes # (Manual) Monocytes # (Manual) POC ABG pH POC ABG pCO2 POC ABG pO2 Sodium Potassium 3.5 L D Chloride Carbon Dioxide BUN Creatinine Glucose 109 H POC Glucose 206 H Lactic Acid Uric Acid Calcium 8.1 L Magnesium Total Bilirubin 3.90 H Direct Bilirubin AST 163 H ALT 60 H Alkaline Phosphatase 166 H Ammonia C-Reactive Protein Total Protein 4.5 L Albumin 2.0 L Vitamin B1 Vitamin B12 25-OH Vitamin D Total Free T4 T3 (G[facility]) Urine Creatinine Urine Total Protein Acetaminophen 07/02/18 07/02/18 07/03/18 05:23 12:18 08:14 WBC RBC Hgb Hct MCV 76 L MCH 25 L RDW 19.0 H Plt Count 84 L Lymph % (Auto) [place] % (Auto) Lymph # [place] # Seg Neutrophils % Seg Neuts % (Manual) Lymphocytes % (Manual) Seg Neutrophils # Seg Neutrophils # Man Lymphocytes # (Manual) Monocytes # (Manual) POC ABG pH POC ABG pCO2 POC ABG pO2 Sodium 135 L Potassium 3.4 L Chloride Carbon Dioxide BUN Creatinine 0.6 L Glucose POC Glucose 144 H Lactic Acid Uric Acid Calcium 8.3 L Magnesium Total Bilirubin Direct Bilirubin AST ALT Alkaline Phosphatase Ammonia C-Reactive Protein Total Protein Albumin Vitamin B1 Vitamin B12 25-OH Vitamin D Total Free T4 T3 (G[facility]) Urine Creatinine Urine Total Protein Acetaminophen 07/03/18 07/03/18 07/04/18 08:14 16:33 05:36 WBC RBC Hgb Hct MCV 77 L MCH 25 L RDW 18.5 H Plt Count 103 L Lymph % (Auto) [place] % (Auto) Lymph # [place] # Seg Neutrophils % Seg Neuts % (Manual) Lymphocytes % (Manual) Seg Neutrophils # Seg Neutrophils # Man Lymphocytes # (Manual) Monocytes # (Manual) POC ABG pH POC ABG pCO2 POC ABG pO2 Sodium 135 L Potassium Chloride 97.7 L Carbon Dioxide BUN Creatinine 0.5 L Glucose POC Glucose 69 L Lactic Acid Uric Acid Calcium 8.2 L Magnesium 1.50 L Total Bilirubin Direct Bilirubin AST ALT Alkaline Phosphatase Ammonia C-Reactive Protein Total Protein Albumin Vitamin B1 Vitamin B12 25-OH Vitamin D Total Free T4 T3 (GILSON) Urine Creatinine Urine Total Protein Acetaminophen 07/04/18 07/04/18 07/04/18 05:36 08:54 11:47 WBC RBC Hgb Hct MCV MCH RDW Plt Count Lymph % (Auto) [place] % (Auto) Lymph # [place] # Seg Neutrophils % Seg Neuts % (Manual) Lymphocytes % (Manual) Seg Neutrophils # Seg Neutrophils # Man Lymphocytes # (Manual) Monocytes # (Manual) POC ABG pH POC ABG pCO2 POC ABG pO2 Sodium 135 L Potassium Chloride Carbon Dioxide BUN Creatinine 0.5 L Glucose POC Glucose 61 L 122 H Lactic Acid Uric Acid Calcium 8.2 L Magnesium Total Bilirubin Direct Bilirubin AST ALT Alkaline Phosphatase Ammonia C-Reactive Protein Total Protein Albumin Vitamin B1 Vitamin B12 25-OH Vitamin D Total Free T4 T3 ([facility]SON) Urine Creatinine Urine Total Protein Acetaminophen 07/04/18 07/05/18 07/06/18 16:44 21:15 11:50 WBC RBC Hgb Hct MCV MCH RDW Plt Count Lymph % (Auto) [place] % (Auto) Lymph # [place] # Seg Neutrophils % Seg Neuts % (Manual) Lymphocytes % (Manual) Seg Neutrophils # Seg Neutrophils # Man Lymphocytes # (Manual) Monocytes # (Manual) POC ABG pH POC ABG pCO2 POC ABG pO2 Sodium Potassium Chloride Carbon Dioxide BUN Creatinine Glucose POC Glucose 124 H 150 H 67 L Lactic Acid Uric Acid Calcium Magnesium Total Bilirubin Direct Bilirubin AST ALT Alkaline Phosphatase Ammonia C-Reactive Protein Total Protein Albumin Vitamin B1 Vitamin B12 25-OH Vitamin D Total Free T4 T3 (GILSON) Urine Creatinine Urine Total Protein Acetaminophen 07/06/18 07/06/18 07/06/18 13:32 16:27 21:13 WBC RBC Hgb Hct MCV MCH RDW Plt Count Lymph % (Auto) [place] % (Auto) Lymph # [place] # Seg Neutrophils % Seg Neuts % (Manual) Lymphocytes % (Manual) Seg Neutrophils # Seg Neutrophils # Man Lymphocytes # (Manual) Monocytes # (Manual) POC ABG pH POC ABG pCO2 POC ABG pO2 Sodium Potassium Chloride Carbon Dioxide BUN Creatinine Glucose POC Glucose 146 H 125 H 69 L Lactic Acid Uric Acid Calcium Magnesium Total Bilirubin Direct Bilirubin AST ALT Alkaline Phosphatase Ammonia C-Reactive Protein Total Protein Albumin Vitamin B1 Vitamin B12 25-OH Vitamin D Total Free T4 T3 (G[facility]) Urine Creatinine Urine Total Protein Acetaminophen 07/07/18 07/08/18 07/08/18 12:18 04:55 04:55 WBC RBC Hgb Hct MCV 78 L MCH 25 L RDW 18.2 H Plt Count Lymph % (Auto) [place] % (Auto) 14.8 H Lymph # [place] # 1.3 H Seg Neutrophils % Seg Neuts % (Manual) Lymphocytes % (Manual) Seg Neutrophils # Seg Neutrophils # Man Lymphocytes # (Manual) Monocytes # (Manual) POC ABG pH POC ABG pCO2 POC ABG pO2 Sodium 136 L Potassium Chloride Carbon Dioxide BUN Creatinine 0.5 L Glucose 110 H POC Glucose 132 H Lactic Acid Uric Acid Calcium 8.0 L Magnesium Total Bilirubin Direct Bilirubin AST ALT Alkaline Phosphatase Ammonia C-Reactive Protein Total Protein Albumin Vitamin B1 Vitamin B12 25-OH Vitamin D Total Free T4 T3 (GILSON) Urine Creatinine Urine Total Protein Acetaminophen 07/08/18 07/08/18 07/08/18 14:27 17:11 21:20 WBC RBC Hgb Hct MCV MCH RDW Plt Count Lymph % (Auto) [place] % (Auto) Lymph # [place] # Seg Neutrophils % Seg Neuts % (Manual) Lymphocytes % (Manual) Seg Neutrophils # Seg Neutrophils # Man Lymphocytes # (Manual) Monocytes # (Manual) POC ABG pH POC ABG pCO2 POC ABG pO2 Sodium Potassium Chloride Carbon Dioxide BUN Creatinine Glucose POC Glucose 133 H 113 H 126 H Lactic Acid Uric Acid Calcium Magnesium Total Bilirubin Direct Bilirubin AST ALT Alkaline Phosphatase Ammonia C-Reactive Protein Total Protein Albumin Vitamin B1 Vitamin B12 25-OH Vitamin D Total Free T4 T3 (G[facility]) Urine Creatinine Urine Total Protein Acetaminophen 07/09/18 07/10/18 17:03 08:36 WBC RBC Hgb Hct MCV MCH RDW Plt Count Lymph % (Auto) [place] % (Auto) Lymph # [place] # Seg Neutrophils % Seg Neuts % (Manual) Lymphocytes % (Manual) Seg Neutrophils # Seg Neutrophils # Man Lymphocytes # (Manual) Monocytes # (Manual) POC ABG pH POC ABG pCO2 POC ABG pO2 Sodium Potassium Chloride Carbon Dioxide BUN Creatinine Glucose POC Glucose 116 H 128 H Lactic Acid Uric Acid Calcium Magnesium Total Bilirubin Direct Bilirubin AST ALT Alkaline Phosphatase Ammonia C-Reactive Protein Total Protein Albumin Vitamin B1 Vitamin B12 25-OH Vitamin D Total Free T4 T3 (GILSON) Urine Creatinine Urine Total Protein Acetaminophen Allied health notes reviewed: nursing
--- NOTE | 2018-07-10 17:57 | Progress Note ---
Subjective - Reason for Consult Consult date: 07/10/18 Reason for consult: follow up - Chief Complaint Chief complaint: "I'm doing better." Patient is a 68 year old female that presented to the emergency room with altered mental status. She is calm and cooperative. She is sitting up eating her supper. She states she feels much better. Conversation is logical. She is alert and oriented to person, time, and situation. She is aware she is in a hospital but says she is in [place]. Mental Status Exam - Vital signs Last Vital Signs Temp 98.0 F 07/10/18 16:20 Pulse 97 H 07/10/18 17:17 Resp 18 07/10/18 16:20 BP 124/78 07/10/18 17:17 Pulse Ox 96 07/10/18 16:20 Assessment and Plan Appearance: cooperative Behavior: appropriate Speech: regular rate and loud tone Mood: "much better" Affect: flat Thought Process: disorganized Thought Content: no gestures of SI/HI. No delusions elicited Motor Activity: no abnormal movements Cognition: A/O to person, time, situation Insight: variable Judgment: variable Assessment and Plan Impression: acute encephalopathy-resolving Disposition: The patient pending SNF placement per the notes. staffed with Dr. Donna Rey. psychiatry sign off
[2018-07-11] MEDS: LOPRESSOR PO SCH ×3 (00:38→17:04)
[2018-07-11] MEDS: TYLENOL PO PRN (02:57)
[2018-07-11 03:48] LABS: Hematocrit 35.3 % (30.3-42.9); Hemoglobin 11.7 gm/dl (10.1-14.3); Mean Corpuscular HGB Conc 33 % (30-34); Mean Corpuscular Volume 78 fl (79-97); Platelet Count 324 K/mm3 (140-440); Red Blood Count 4.54 M/mm3 (3.65-5.03); Red Cell Distribution Width 17.4 % (13.2-15.2)
[2018-07-11 04:10] LABS: Alanine Aminotransferase 53 units/L (7-56); BUN/Creatinine Ratio 17; Blood Urea Nitrogen 10 mg/dL (7-17); Hemolysis Index 15
[2018-07-11 04:48] LABS: Anisocytosis 1+; Basophils % (Manual) 0 % (0.0-1.8); Eosinophils % (Manual) 0 % (0.0-4.3); Ovalocytes Few; Poikilocytosis 2+; Target Cells 1+; Total Cells Counted 100
[2018-07-11 04:49] LABS: Hypochromasia 2+; Platelet Estimate Consistent w Auto; Tear Drop Cells Few
[2018-07-11] MEDS: LASIX PO SCH ×2 (05:18→17:19)
[2018-07-11] MEDS: HumaLOG SUB-Q SCH ×4 (07:30→22:30)
[2018-07-11] MEDS: DUONEB *Not for PRN Use IH SCH ×5 (09:00→22:35)
[2018-07-11] MEDS: ZOLOFT PO SCH (10:03)
[2018-07-11] MEDS: ELIQUIS PO SCH ×2 (10:03→22:19)
[2018-07-11] MEDS: PEPCID PO SCH (10:03)
--- NOTE | 2018-07-11 11:31 | Progress Note ---
Assessment and Plan S/P Cardiac arrest thought secondary to Haldol treatment s/p cardioversion Hypokalemia Respiratory failure -extubated Chronic systolic heart failure Atrial fibrillation/flutter on metoprolol, digoxin and eliquis therapy Severe depression Altered mental status Non-ischemic cardiomyopathy Lactic acidosis Hyponatremia Elevated bilirubin and alk phosphatase - chronic secondary to congestive hepatopathy Non-compliance with medical therapy and outpatient cardiac follow up. Echo 04/2018 at [facility] showed: a 4 chamber dilated cardiomyopathy, LVEF severely decreased, 20-25%. Moderate mitral regurgitation. Severe TR. RVSP is severely elevated. Medical therapy for chronic systolic left ventricular dysfunction as tolerated. Conservative cardiac management. Subjective Date of service: 07/11/18 Principal diagnosis: altered mental status, psychosis, chronic systolic heart failure, Interval history: Patient is resting in bed comfortably. No complaints. Awaits placement. Objective Vital Signs Temp Pulse Pulse Resp Resp BP Pulse Ox 07/11/18 10:03 98 H 123/82 07/11/18 07:27 98.0 F 98 H 20 123/83 100 07/11/18 02:02 97.5 F L 20 119/63 07/11/18 00:38 114/64 07/10/18 23:24 98.4 F 79 16 114/64 99 07/10/18 21:30 100 H 20 07/10/18 21:29 100 07/10/18 21:20 95 H 20 07/10/18 20:04 97.5 F L 94 H 15 105/66 99 07/10/18 17:17 97 H 124/78 07/10/18 16:20 98.0 F 90 18 124/78 96 - Physical Examination General: No Apparent Distress HEENT: Positive: PERRL Neck: Positive: trachea midline Cardiac: Positive: irregularly irregular Lungs: Positive: Decreased Breath Sounds Neuro: Positive: Grossly Intact Extremities: Absent: edema - Labs and Meds Cardiac Enzymes 07/11/18 Range/Units 03:22 AST 63 H (5-40) units/L CBC 07/11/18 Range/Units 03:22 WBC 5.3 (4.5-11.0) K/mm3 RBC 4.54 (3.65-5.03) M/mm3 Hgb 11.7 (10.1-14.3) gm/dl Hct 35.3 (30.3-42.9) % Plt Count 324 (140-440) K/mm3 Comprehensive Metabolic Panel 07/11/18 Range/Units 03:22 Sodium 135 L (137-145) mmol/L Potassium 3.9 (3.6-5.0) mmol/L Chloride 99.7 (98-107) mmol/L Carbon Dioxide 24 (22-30) mmol/L BUN 10 (7-17) mg/dL Creatinine 0.6 L (0.7-1.2) mg/dL Glucose 101 H (65-100) mg/dL Calcium 8.0 L (8.4-10.2) mg/dL AST 63 H (5-40) units/L ALT 53 (7-56) units/L Alkaline Phosphatase 350 H (35-129) units/L Total Protein 5.5 L (6.3-8.2) g/dL Albumin 2.0 L (3.9-5) g/dL - Allied health notes Allied health notes reviewed: nursing
[2018-07-11] MEDS: LANOXIN PO SCH (17:19)
--- NOTE | 2018-07-11 18:26 | Progress Note ---
Assessment and Plan Acute Respiratory failure following Cardiac Arrest - ? PEA from hypoglycemia or Haldol administration- now off the ventilator and on nasal canula Patient stable s/p Cardiac arrest after Haldol: listed Haldol as an Allergy/Adverse drug. Severe NICM also contributed to the event I believe. Patient stable Severe NICM, ionotrope dependent : - Cardiology recommends Hospice, dobutamine now off by Cardiology - family not in agreement for code status, hospice now pending Patient stable Acute on Chronic systolic CHF of EF 20-25%, - patient has been on hospice before, it appears she was discharged from home hospice. - cont current meds, daily ins/os/daily wt Medications optimized Permanent Atrial fib/flutter: Eliquis resumed Altered mental status, with acute encephalopathy - suspected Dementia with psychotic features: Psych following - Continue home medication Zoloft 50 mg PO daily for now Psychosis improved and her encephalopathy improved Hypoglycemia--Blood glucose was 20 during the code- resolved Hyponatremia, due to diuresis and CHF: Nephrology following Improved Elevated LFT, Likely congestive hepatopathy due to end stage NICMP, closely monitor Severe protein calorie malnutrition: Route Sales Representative consulted SIRS- ?underlying PNA doubt based on xray review and lack of fever or leukocytoisis: check blood culture- NO GROWTH. Antibiotics discontinued Improved Persistently elevated Lactic acidosis:-Likely secondary to hypoperfusion- Improved Hypokalemia: Resolved -DVT prophylaxis: Patient is on Eliquis Waiting for NH placement/Hospice Subjective Date of service: 07/11/18 Principal diagnosis: altered mental status, psychosis, chronic systolic heart failure, Interval history: Shortness of breath better Able to walk on the corridor Waiting to go to NH/Hospice Objective - Exam Narrative Exam: Sitting at the edge of the bed comfortably - Constitutional Vitals: Vital Signs - 12hr 07/11/18 07/11/18 07/11/18 07:27 09:00 09:10 Temperature 98.0 F Pulse Rate 98 H Pulse Rate [ 109 H 100 H Posterior Bilateral Throughout] Respiratory 20 Rate Respiratory 20 20 Rate [Posterior Bilateral Throughout] Blood Pressure 123/83 O2 Sat by Pulse 100 97 Oximetry 07/11/18 07/11/18 07/11/18 10:03 13:30 14:25 Temperature 99.0 F Pulse Rate 98 H 88 Pulse Rate [ 98 H Posterior Bilateral Throughout] Respiratory 20 Rate Respiratory 20 Rate [Posterior Bilateral Throughout] Blood Pressure 123/82 101/66 O2 Sat by Pulse 99 Oximetry 07/11/18 07/11/18 07/11/18 14:35 17:04 17:19 Temperature Pulse Rate 109 H 109 H Pulse Rate [ 109 H Posterior Bilateral Throughout] Respiratory Rate Respiratory 20 Rate [Posterior Bilateral Throughout] Blood Pressure 101/66 101/66 O2 Sat by Pulse Oximetry General appearance: Present: no acute distress, well-nourished - EENT Eyes: PERRL, EOM intact ENT: hearing intact, clear oral mucosa Ears: bilateral: normal - Neck Neck: supple, normal ROM - Respiratory Respiratory effort: normal Respiratory: bilateral: CTA - Breasts Breasts: normal - Cardiovascular Heart rate: 78 Rhythm: regular Heart Sounds: Present: S1 & S2. Absent: gallop, rub Extremities: no ischemia, pulses intact, No edema, normal color, Full ROM - Gastrointestinal General gastrointestinal: Present: soft, non-tender, non-distended, normal bowel sounds - Genitourinary Female genitourinary: normal - Integumentary Integumentary: clear, warm, dry - Musculoskeletal Musculoskeletal: 1, strength equal bilaterally - Neurologic Neurologic: moves all extremities - Psychiatric Psychiatric: memory intact, appropriate mood/affect, intact judgment & insight - Labs CBC & Chem 7: 07/11/18 03:22 07/11/18 03:22 Labs: Abnormal lab results 07/10/18 07/11/18 07/11/18 Range/Units 20:51 03:22 03:22 MCV 78 L (79-97) fl MCH 26 L (28-32) pg RDW 17.4 H (13.2-15.2) % Monocytes % (Manual) 13.0 H (0.0-7.3) % Sodium 135 L (137-145) mmol/L Creatinine 0.6 L (0.7-1.2) mg/dL Glucose 101 H (65-100) mg/dL POC Glucose 159 H (70-105) Calcium 8.0 L (8.4-10.2) mg/dL Total Bilirubin 1.50 H (0.1-1.2) mg/dL AST 63 H (5-40) units/L Alkaline Phosphatase 350 H (35-129) units/L Total Protein 5.5 L (6.3-8.2) g/dL Albumin 2.0 L (3.9-5) g/dL 07/11/18 Range/Units 12:07 MCV (79-97) fl MCH (28-32) pg RDW (13.2-15.2) % Monocytes % (Manual) (0.0-7.3) % Sodium (137-145) mmol/L Creatinine (0.7-1.2) mg/dL Glucose (65-100) mg/dL POC Glucose 345 H (70-105) Calcium (8.4-10.2) mg/dL Total Bilirubin (0.1-1.2) mg/dL AST (5-40) units/L Alkaline Phosphatase (35-129) units/L Total Protein (6.3-8.2) g/dL Albumin (3.9-5) g/dL
--- NOTE | 2018-07-11 20:54 | Progress Note ---
Assessment and Plan atient transfered to ACU.Patient sitting by the side of the bed. Patient is on 2 litres o2. O2 saturation 99% .No acute respiratory distress.Patient afebrile. No leukocytosis. - Patient Problems (1) Cardiac arrest Current Visit: Yes Status: Acute Plan to address problem: Patient successfully resuciated. Patient resting on 2 litres O2. (2) Acute respiratory failure with hypoxia Current Visit: Yes Status: Acute Plan to address problem: Patient is on 2 litres O2. O2 saturation 99%. (3) Acute kidney failure with tubular necrosis Current Visit: Yes Status: Acute Plan to address problem: Management as per nephrology. (4) Altered mental status Current Visit: Yes Status: Acute Plan to address problem: Improving. Still confusing at times. (5) Paroxysmal atrial fibrillation Current Visit: Yes Status: Acute Plan to address problem: Patient is on Apixaban. Management as per cardiology. (6) Acute on chronic systolic heart failure Current Visit: No Status: Acute Plan to address problem: Management as per cardiology. (7) HTN (hypertension) Current Visit: No Status: Chronic Plan to address problem: Management as per primary care. (8) Left lower lobe pulmonary infiltrate Current Visit: Yes Status: Acute Plan to address problem: Patient afebrile. No leukocytosis. Repeat chest xray PA and Lateral reported volume Overload. Subjective Date of service: 07/11/18 Principal diagnosis: altered mental status, psychosis, chronic systolic heart failure, Interval history: Patient transfered to ACU.Patient sitting by the side of the bed. Patient is on 2 litres o2. O2 saturation 99% .No acute respiratory distress.Patient afebrile. No leukocytosis. Objective Vital Signs - 12hr 07/11/18 07/11/18 07/11/18 09:00 09:10 10:03 Temperature Pulse Rate 98 H Pulse Rate [ 109 H 100 H Posterior Bilateral Throughout] Respiratory Rate Respiratory 20 20 Rate [Posterior Bilateral Throughout] Blood Pressure 123/82 O2 Sat by Pulse 97 Oximetry 07/11/18 07/11/18 07/11/18 13:30 14:25 14:35 Temperature 99.0 F Pulse Rate 88 Pulse Rate [ 98 H 109 H Posterior Bilateral Throughout] Respiratory 20 Rate Respiratory 20 20 Rate [Posterior Bilateral Throughout] Blood Pressure 101/66 O2 Sat by Pulse 99 Oximetry 07/11/18 07/11/1807/11/19 17:04 17:19 20:01 Temperature 98.3 F Pulse Rate 109 H 109 H Pulse Rate [ Posterior Bilateral Throughout] Respiratory 20 Rate Respiratory Rate [Posterior Bilateral Throughout] Blood Pressure 101/66 101/66 119/81 O2 Sat by Pulse Oximetry 07/11/18 20:12 Temperature Pulse Rate 102 H Pulse Rate [ Posterior Bilateral Throughout] Respiratory Rate Respiratory Rate [Posterior Bilateral Throughout] Blood Pressure O2 Sat by Pulse 99 Oximetry Constitutional: no acute distress, alert, other (Confusing at times.) Eyes: non-icteric, other (Pupils 4mm, sluggichly reacting to light) ENT: oropharynx dry, other (extubated) Neck: supple, no lymphadenopathy, no JVD, other (no thyromegaly) Effort: normal Ascultation: Bilateral: diminished breath sounds, rales Percussion: Bilateral: not dull Cardiovascular: irregular rhythm, other (S1,S2,) Gastrointestinal: normoactive bowel sounds, soft, non-tender, non-distended Integumentary: rash (exematoid rash to upper chest) Extremities: no cyanosis, no edema, pulses normal, no ischemia or petechiae Neurologic: normal mental status, non-focal exam (grossly), pupils equal and round, CN II-XII normal Psychiatric: depressed CBC and BMP: 07/11/18 03:22 07/11/18 03:22 ABG, PT/INR, D-dimer: ABG POC ABG pH 7.552 (7.35-7.45) H 06/28/18 10:53 POC ABG pCO2 40.8 (35-45) 06/28/18 10:53 POC ABG pO2 83 (80-105) 06/28/18 10:53 POC ABG HCO3 35.9 (22-26 mml/L) 06/28/18 10:53 POC ABG Total CO2 37 (23-27mmol/L) 06/28/18 10:53 POC ABG O2 Sat 97 06/28/18 10:53 Abnormal lab findings: Abnormal Labs 06/16/18 06/16/18 06/16/18 21:05 21:43 21:43 WBC RBC Hgb Hct MCV MCH RDW Plt Count Lymph % (Auto) [place] % (Auto) Lymph # [place] # Seg Neutrophils % Seg Neuts % (Manual) Lymphocytes % (Manual) Monocytes % (Manual) Seg Neutrophils # Seg Neutrophils # Man Lymphocytes # (Manual) Monocytes # (Manual) POC ABG pH POC ABG pCO2 POC ABG pO2 Sodium 129 L Potassium Chloride 95.3 L Carbon Dioxide 14 L BUN 23 H Creatinine Glucose 146 H POC Glucose < 40 L Lactic Acid Uric Acid Calcium Magnesium Total Bilirubin Direct Bilirubin AST ALT Alkaline Phosphatase Ammonia C-Reactive Protein Total Protein Albumin Vitamin B1 Vitamin B12 25-OH Vitamin D Total Free T4 T3 (GILSON) Urine Creatinine Urine Total Protein Acetaminophen < 5.0 L 06/16/18 06/16/18 06/16/18 21:43 21:43 22:27 WBC RBC 5.70 H Hgb Hct 44.6 H MCV 78 L MCH 25 L RDW 18.7 H Plt Count Lymph % (Auto) [place] % (Auto) Lymph # [place] # Seg Neutrophils % 78.8 H Seg Neuts % (Manual) Lymphocytes % (Manual) Monocytes % (Manual) Seg Neutrophils # Seg Neutrophils # Man Lymphocytes # (Manual) Monocytes # (Manual) POC ABG pH POC ABG pCO2 POC ABG pO2 Sodium Potassium Chloride Carbon Dioxide BUN Creatinine Glucose POC Glucose 121 H Lactic Acid Uric Acid Calcium Magnesium Total Bilirubin Direct Bilirubin AST ALT Alkaline Phosphatase Ammonia C-Reactive Protein Total Protein Albumin Vitamin B1 Vitamin B12 25-OH Vitamin D Total Free T4 1.87 H T3 (GILSON) Urine Creatinine Urine Total Protein Acetaminophen 06/16/18 06/16/18 06/17/18 22:33 23:43 03:56 WBC RBC Hgb Hct MCV MCH RDW Plt Count Lymph % (Auto) [place] % (Auto) Lymph # [place] # Seg Neutrophils % Seg Neuts % (Manual) Lymphocytes % (Manual) Monocytes % (Manual) Seg Neutrophils # Seg Neutrophils # Man Lymphocytes # (Manual) Monocytes # (Manual) POC ABG pH POC ABG pCO2 POC ABG pO2 Sodium Potassium Chloride Carbon Dioxide BUN Creatinine Glucose POC Glucose Lactic Acid 4.40 H* 4.30 H* 3.10 H* Uric Acid Calcium Magnesium Total Bilirubin Direct Bilirubin AST ALT Alkaline Phosphatase Ammonia C-Reactive Protein Total Protein Albumin Vitamin B1 Vitamin B12 25-OH Vitamin D Total Free T4 T3 (GILSON) Urine Creatinine Urine Total Protein Acetaminophen 06/17/18 06/17/18 06/17/18 08:35 08:40 11:00 WBC RBC Hgb Hct MCV MCH RDW Plt Count Lymph % (Auto) [place] % (Auto) Lymph # [place] # Seg Neutrophils % Seg Neuts % (Manual) Lymphocytes % (Manual) Monocytes % (Manual) Seg Neutrophils # Seg Neutrophils # Man Lymphocytes # (Manual) Monocytes # (Manual) POC ABG pH POC ABG pCO2 POC ABG pO2 Sodium Potassium Chloride Carbon Dioxide BUN Creatinine Glucose POC Glucose 56 L Lactic Acid 2.70 H* 3.40 H* Uric Acid Calcium Magnesium Total Bilirubin Direct Bilirubin AST ALT Alkaline Phosphatase Ammonia C-Reactive Protein Total Protein Albumin Vitamin B1 Vitamin B12 25-OH Vitamin D Total Free T4 T3 (GILSON) Urine Creatinine Urine Total Protein Acetaminophen 06/17/18 06/17/18 06/17/18 11:00 11:00 11:00 WBC 11.9 H RBC 5.25 H Hgb Hct MCV MCH 25 L RDW 18.6 H Plt Count Lymph % (Auto) [place] % (Auto) Lymph # [place] # Seg Neutrophils % Seg Neuts % (Manual) Lymphocytes % (Manual) Monocytes % (Manual) Seg Neutrophils # Seg Neutrophils # Man Lymphocytes # (Manual) Monocytes # (Manual) POC ABG pH POC ABG pCO2 POC ABG pO2 Sodium 128 L Potassium Chloride 95.6 L Carbon Dioxide 15 L BUN 22 H Creatinine Glucose 110 H POC Glucose Lactic Acid Uric Acid Calcium 8.3 L Magnesium Total Bilirubin Direct Bilirubin 1.6 H AST 66 H ALT Alkaline Phosphatase 178 H Ammonia C-Reactive Protein Total Protein 4.7 L Albumin 2.4 L Vitamin B1 Vitamin B12 25-OH Vitamin D Total Free T4 T3 (GILSON) Urine Creatinine Urine Total Protein Acetaminophen 06/17/18 06/17/18 06/17/18 15:08 15:08 23:00 WBC RBC Hgb Hct MCV MCH RDW Plt Count Lymph % (Auto) [place] % (Auto) Lymph # [place] # Seg Neutrophils % Seg Neuts % (Manual) Lymphocytes % (Manual) Monocytes % (Manual) Seg Neutrophils # Seg Neutrophils # Man Lymphocytes # (Manual) Monocytes # (Manual) POC ABG pH POC ABG pCO2 POC ABG pO2 Sodium Potassium Chloride Carbon Dioxide BUN Creatinine Glucose POC Glucose Lactic Acid 4.00 H* Uric Acid Calcium Magnesium Total Bilirubin Direct Bilirubin AST ALT Alkaline Phosphatase Ammonia 10.0 L C-Reactive Protein Total Protein Albumin Vitamin B1 Vitamin B12 25-OH Vitamin D Total Free T4 1.53 H T3 (GILSON) Urine Creatinine Urine Total Protein Acetaminophen 06/18/18 06/18/18 06/18/18 08:59 08:59 12:49 WBC RBC 5.29 H Hgb Hct MCV 78 L MCH 25 L RDW 18.4 H Plt Count Lymph % (Auto) [place] % (Auto) Lymph # [place] # Seg Neutrophils % Seg Neuts % (Manual) Lymphocytes % (Manual) Monocytes % (Manual) Seg Neutrophils # Seg Neutrophils # Man Lymphocytes # (Manual) Monocytes # (Manual) POC ABG pH POC ABG pCO2 POC ABG pO2 Sodium 128 L Potassium 5.9 H D Chloride 96.1 L Carbon Dioxide 20 L BUN 22 H Creatinine Glucose POC Glucose 60 L Lactic Acid Uric Acid Calcium Magnesium Total Bilirubin Direct Bilirubin AST ALT Alkaline Phosphatase Ammonia C-Reactive Protein Total Protein Albumin Vitamin B1 Vitamin B12 25-OH Vitamin D Total Free T4 T3 (GILSON) Urine Creatinine Urine Total Protein Acetaminophen 06/18/18 06/19/18 06/19/18 21:28 12:14 13:23 WBC RBC Hgb Hct MCV MCH RDW Plt Count Lymph % (Auto) [place] % (Auto) Lymph # [place] # Seg Neutrophils % Seg Neuts % (Manual) Lymphocytes % (Manual) Monocytes % (Manual) Seg Neutrophils # Seg Neutrophils # Man Lymphocytes # (Manual) Monocytes # (Manual) POC ABG pH POC ABG pCO2 POC ABG pO2 Sodium 122 L Potassium 5.4 H Chloride 95.0 L Carbon Dioxide 13 L D BUN 21 H Creatinine Glucose 119 H POC Glucose 114 H Lactic Acid Uric Acid Calcium 8.3 L Magnesium Total Bilirubin Direct Bilirubin AST ALT Alkaline Phosphatase Ammonia C-Reactive Protein Total Protein Albumin Vitamin B1 Vitamin B12 25-OH Vitamin D Total Free T4 T3 (GILSON) Urine Creatinine Urine Total Protein Acetaminophen 06/19/18 06/19/18 06/19/18 14:47 16:38 22:42 WBC RBC 5.51 H Hgb Hct 45.3 H MCV MCH 25 L RDW 18.6 H Plt Count Lymph % (Auto) [place] % (Auto) Lymph # [place] # Seg Neutrophils % Seg Neuts % (Manual) Lymphocytes % (Manual) Monocytes % (Manual) Seg Neutrophils # Seg Neutrophils # Man Lymphocytes # (Manual) Monocytes # (Manual) POC ABG pH POC ABG pCO2 POC ABG pO2 Sodium Potassium Chloride Carbon Dioxide BUN Creatinine Glucose POC Glucose 108 H 49 L Lactic Acid Uric Acid Calcium Magnesium Total Bilirubin Direct Bilirubin AST ALT Alkaline Phosphatase Ammonia C-Reactive Protein Total Protein Albumin Vitamin B1 Vitamin B12 25-OH Vitamin D Total Free T4 T3 (GILSON) Urine Creatinine Urine Total Protein Acetaminophen 06/19/18 06/20/18 06/20/18 Unknown 07:31 16:51 WBC RBC Hgb Hct MCV MCH RDW Plt Count Lymph % (Auto) [place] % (Auto) Lymph # [place] # Seg Neutrophils % Seg Neuts % (Manual) Lymphocytes % (Manual) Monocytes % (Manual) Seg Neutrophils # Seg Neutrophils # Man Lymphocytes # (Manual) Monocytes # (Manual) POC ABG pH POC ABG pCO2 POC ABG pO2 Sodium 132 L D Potassium Chloride 94.3 L Carbon Dioxide BUN 20 H Creatinine Glucose POC Glucose Lactic Acid Uric Acid 8.6 H Calcium Magnesium 1.30 L Total Bilirubin Direct Bilirubin AST ALT Alkaline Phosphatase Ammonia C-Reactive Protein Total Protein Albumin Vitamin B1 Vitamin B12 25-OH Vitamin D Total Free T4 T3 (GILSON) 58 L Urine Creatinine 61.7 H Urine Total Protein 32 H Acetaminophen 06/20/18 06/20/18 06/21/18 20:53 20:53 16:27 WBC RBC Hgb Hct MCV MCH RDW Plt Count Lymph % (Auto) [place] % (Auto) Lymph # [place] # Seg Neutrophils % Seg Neuts % (Manual) Lymphocytes % (Manual) Monocytes % (Manual) Seg Neutrophils # Seg Neutrophils # Man Lymphocytes # (Manual) Monocytes # (Manual) POC ABG pH POC ABG pCO2 POC ABG pO2 Sodium Potassium Chloride Carbon Dioxide BUN Creatinine Glucose POC Glucose Lactic Acid Uric Acid 9.2 H Calcium Magnesium Total Bilirubin Direct Bilirubin AST ALT Alkaline Phosphatase Ammonia C-Reactive Protein Total Protein Albumin Vitamin B1 Vitamin B12 1598 H 25-OH Vitamin D Total 10 L Free T4 T3 (GILSON) Urine Creatinine Urine Total Protein Acetaminophen 06/21/18 06/21/18 06/21/18 16:27 16:27 16:27 WBC RBC 5.26 H Hgb Hct MCV 77 L MCH 26 L RDW 17.7 H Plt Count Lymph % (Auto) [place] % (Auto) Lymph # [place] # Seg Neutrophils % Seg Neuts % (Manual) Lymphocytes % (Manual) Monocytes % (Manual) Seg Neutrophils # Seg Neutrophils # Man Lymphocytes # (Manual) Monocytes # (Manual) POC ABG pH POC ABG pCO2 POC ABG pO2 Sodium 130 L Potassium Chloride 95.6 L Carbon Dioxide BUN 24 H Creatinine Glucose POC Glucose Lactic Acid Uric Acid Calcium Magnesium Total Bilirubin Direct Bilirubin AST ALT Alkaline Phosphatase Ammonia C-Reactive Protein Total Protein Albumin Vitamin B1 <6 L Vitamin B12 25-OH Vitamin D Total Free T4 T3 (GILSON) Urine Creatinine Urine Total Protein Acetaminophen 06/21/18 06/22/18 06/23/18 21:44 21:42 14:54 WBC RBC 5.07 H Hgb Hct MCV 78 L MCH 25 L RDW 18.5 H Plt Count Lymph % (Auto) [place] % (Auto) 12.3 H Lymph # 1.0 L [place] # Seg Neutrophils % Seg Neuts % (Manual) Lymphocytes % (Manual) Monocytes % (Manual) Seg Neutrophils # Seg Neutrophils # Man Lymphocytes # (Manual) Monocytes # (Manual) POC ABG pH POC ABG pCO2 POC ABG pO2 Sodium Potassium Chloride Carbon Dioxide BUN Creatinine Glucose POC Glucose 126 H 114 H Lactic Acid Uric Acid Calcium Magnesium Total Bilirubin Direct Bilirubin AST ALT Alkaline Phosphatase Ammonia C-Reactive Protein Total Protein Albumin Vitamin B1 Vitamin B12 25-OH Vitamin D Total Free T4 T3 (GILSON) Urine Creatinine Urine Total Protein Acetaminophen 06/23/18 06/25/18 06/25/18 14:54 00:00 00:00 WBC 3.6 L RBC 5.31 H Hgb Hct MCV 77 L MCH 26 L RDW 19.0 H Plt Count Lymph % (Auto) [place] % (Auto) 10.2 H Lymph # [place] # Seg Neutrophils % Seg Neuts % (Manual) Lymphocytes % (Manual) Monocytes % (Manual) Seg Neutrophils # Seg Neutrophils # Man Lymphocytes # (Manual) Monocytes # (Manual) POC ABG pH POC ABG pCO2 POC ABG pO2 Sodium 132 L 131 L Potassium 3.5 L Chloride 91.5 L 93.5 L Carbon Dioxide BUN 19 H 21 H Creatinine Glucose POC Glucose Lactic Acid Uric Acid Calcium 8.1 L Magnesium Total Bilirubin 2.80 H 2.70 H Direct Bilirubin AST 52 H 81 H ALT Alkaline Phosphatase 231 H 243 H Ammonia C-Reactive Protein Total Protein 5.5 L 5.5 L Albumin 2.8 L 2.7 L Vitamin B1 Vitamin B12 25-OH Vitamin D Total Free T4 T3 (GILSON) Urine Creatinine Urine Total Protein Acetaminophen 06/25/18 06/25/18 06/25/18 16:02 16:02 16:18 WBC 3.9 L RBC 5.78 H Hgb 14.6 H Hct 45.4 H MCV MCH 25 L RDW 19.2 H Plt Count Lymph % (Auto) [place] % (Auto) Lymph # [place] # Seg Neutrophils % Seg Neuts % (Manual) Lymphocytes % (Manual) Monocytes % (Manual) Seg Neutrophils # Seg Neutrophils # Man Lymphocytes # (Manual) 1.1 L Monocytes # (Manual) POC ABG pH POC ABG pCO2 POC ABG pO2 Sodium 131 L Potassium Chloride 90.0 L Carbon Dioxide BUN 25 H Creatinine 1.4 H Glucose POC Glucose Lactic Acid 4.00 H* Uric Acid Calcium Magnesium Total Bilirubin 3.10 H Direct Bilirubin AST 68 H ALT Alkaline Phosphatase 296 H Ammonia C-Reactive Protein Total Protein 6.1 L Albumin 3.3 L Vitamin B1 Vitamin B12 25-OH Vitamin D Total Free T4 T3 (GILSON) Urine Creatinine Urine Total Protein Acetaminophen 06/25/18 06/26/18 06/26/18 21:06 11:33 11:37 WBC RBC Hgb Hct MCV MCH 26 L RDW 19.2 H Plt Count 139 L Lymph % (Auto) [place] % (Auto) Lymph # [place] # Seg Neutrophils % Seg Neuts % (Manual) 85.0 H Lymphocytes % (Manual) 6.0 L Monocytes % (Manual) Seg Neutrophils # Seg Neutrophils # Man 8.0 H Lymphocytes # (Manual) 0.6 L Monocytes # (Manual) POC ABG pH POC ABG pCO2 POC ABG pO2 Sodium Potassium Chloride Carbon Dioxide BUN Creatinine Glucose POC Glucose < 40 L Lactic Acid 6.40 H* Uric Acid Calcium Magnesium Total Bilirubin Direct Bilirubin AST ALT Alkaline Phosphatase Ammonia C-Reactive Protein Total Protein Albumin Vitamin B1 Vitamin B12 25-OH Vitamin D Total Free T4 T3 (GILSON) Urine Creatinine Urine Total Protein Acetaminophen 06/26/18 06/26/18 06/26/18 11:37 11:51 11:59 WBC RBC Hgb Hct MCV MCH RDW Plt Count Lymph % (Auto) [place] % (Auto) Lymph # [place] # Seg Neutrophils % Seg Neuts % (Manual) Lymphocytes % (Manual) Monocytes % (Manual) Seg Neutrophils # Seg Neutrophils # Man Lymphocytes # (Manual) Monocytes # (Manual) POC ABG pH 7.029 L POC ABG pCO2 POC ABG pO2 73 L Sodium 129 L Potassium Chloride 87.0 L Carbon Dioxide 11 L D BUN 31 H Creatinine 1.9 H Glucose 206 H POC Glucose 253 H Lactic Acid Uric Acid Calcium 7.9 L Magnesium Total Bilirubin 2.90 H Direct Bilirubin AST 98 H ALT Alkaline Phosphatase 196 H Ammonia C-Reactive Protein Total Protein 4.3 L D Albumin 2.2 L Vitamin B1 Vitamin B12 25-OH Vitamin D Total Free T4 T3 (GILSON) Urine Creatinine Urine Total Protein Acetaminophen 06/26/18 06/26/18 06/26/18 14:54 15:08 15:10 WBC 14.2 H RBC 5.66 H Hgb 14.5 H Hct 45.6 H D MCV MCH 26 L RDW 19.4 H Plt Count Lymph % (Auto) [place] % (Auto) Lymph # [place] # Seg Neutrophils % Seg Neuts % (Manual) 88.0 H Lymphocytes % (Manual) 5.0 L Monocytes % (Manual) Seg Neutrophils # Seg Neutrophils # Man 12.5 H Lymphocytes # (Manual) 0.7 L Monocytes # (Manual) 0.9 H POC ABG pH POC ABG pCO2 POC ABG pO2 Sodium Potassium Chloride Carbon Dioxide BUN Creatinine Glucose POC Glucose 172 H Lactic Acid 11.90 H* Uric Acid Calcium Magnesium Total Bilirubin Direct Bilirubin AST ALT Alkaline Phosphatase Ammonia C-Reactive Protein Total Protein Albumin Vitamin B1 Vitamin B12 25-OH Vitamin D Total Free T4 T3 (GILSON) Urine Creatinine Urine Total Protein Acetaminophen 06/26/18 06/26/18 06/26/18 16:01 18:47 20:55 WBC RBC Hgb Hct MCV MCH RDW Plt Count Lymph % (Auto) [place] % (Auto) Lymph # [place] # Seg Neutrophils % Seg Neuts % (Manual) Lymphocytes % (Manual) Monocytes % (Manual) Seg Neutrophils # Seg Neutrophils # Man Lymphocytes # (Manual) Monocytes # (Manual) POC ABG pH POC ABG pCO2 34.0 L POC ABG pO2 Sodium Potassium Chloride Carbon Dioxide BUN Creatinine Glucose POC Glucose 183 H 131 H Lactic Acid Uric Acid Calcium Magnesium Total Bilirubin Direct Bilirubin AST ALT Alkaline Phosphatase Ammonia C-Reactive Protein Total Protein Albumin Vitamin B1 Vitamin B12 25-OH Vitamin D Total Free T4 T3 (GILSON) Urine Creatinine Urine Total Protein Acetaminophen 06/26/18 06/27/18 06/27/18 21:55 09:29 09:29 WBC RBC Hgb Hct MCV MCH RDW Plt Count Lymph % (Auto) [place] % (Auto) Lymph # [place] # Seg Neutrophils % Seg Neuts % (Manual) Lymphocytes % (Manual) Monocytes % (Manual) Seg Neutrophils # Seg Neutrophils # Man Lymphocytes # (Manual) Monocytes # (Manual) POC ABG pH POC ABG pCO2 POC ABG pO2 Sodium 135 L 135 L Potassium 3.5 L Chloride 91.7 L 91.2 L Carbon Dioxide BUN 35 H 37 H Creatinine 2.3 H 2.1 H Glucose 147 H 104 H POC Glucose Lactic Acid Uric Acid Calcium 8.3 L 8.1 L Magnesium Total Bilirubin 3.50 H Direct Bilirubin AST 218 H ALT 57 H Alkaline Phosphatase 197 H Ammonia C-Reactive Protein Total Protein 5.0 L Albumin 2.3 L Vitamin B1 Vitamin B12 25-OH Vitamin D Total Free T4 1.78 H T3 (GILSON) Urine Creatinine Urine Total Protein Acetaminophen 06/27/18 06/27/18 06/27/18 09:29 09:29 10:00 WBC 16.3 H RBC 5.44 H Hgb Hct MCV 76 L MCH 25 L RDW 18.3 H Plt Count Lymph % (Auto) [place] % (Auto) Lymph # [place] # Seg Neutrophils % Seg Neuts % (Manual) 91.0 H Lymphocytes % (Manual) 3.0 L Monocytes % (Manual) Seg Neutrophils # Seg Neutrophils # Man 14.8 H Lymphocytes # (Manual) 0.5 L Monocytes # (Manual) 1.0 H POC ABG pH POC ABG pCO2 POC ABG pO2 Sodium Potassium Chloride Carbon Dioxide BUN Creatinine Glucose POC Glucose 106 H Lactic Acid 4.00 H* Uric Acid Calcium Magnesium Total Bilirubin Direct Bilirubin AST ALT Alkaline Phosphatase Ammonia C-Reactive Protein Total Protein Albumin Vitamin B1 Vitamin B12 25-OH Vitamin D Total Free T4 T3 (GILSON) Urine Creatinine Urine Total Protein Acetaminophen 06/27/18 06/27/18 06/27/18 11:51 12:50 13:39 WBC RBC Hgb Hct MCV MCH RDW Plt Count Lymph % (Auto) [place] % (Auto) Lymph # [place] # Seg Neutrophils % Seg Neuts % (Manual) Lymphocytes % (Manual) Monocytes % (Manual) Seg Neutrophils # Seg Neutrophils # Man Lymphocytes # (Manual) Monocytes # (Manual) POC ABG pH 7.584 H POC ABG pCO2 32.8 L POC ABG pO2 109 H Sodium Potassium Chloride Carbon Dioxide BUN Creatinine Glucose POC Glucose 112 H Lactic Acid 3.20 H* Uric Acid Calcium Magnesium Total Bilirubin Direct Bilirubin AST ALT Alkaline Phosphatase Ammonia C-Reactive Protein Total Protein Albumin Vitamin B1 Vitamin B12 25-OH Vitamin D Total Free T4 T3 (GILSON) Urine Creatinine Urine Total Protein Acetaminophen 06/27/18 06/27/18 06/27/18 19:31 21:50 23:10 WBC RBC Hgb Hct MCV MCH RDW Plt Count Lymph % (Auto) [place] % (Auto) Lymph # [place] # Seg Neutrophils % Seg Neuts % (Manual) Lymphocytes % (Manual) Monocytes % (Manual) Seg Neutrophils # Seg Neutrophils # Man Lymphocytes # (Manual) Monocytes # (Manual) POC ABG pH POC ABG pCO2 POC ABG pO2 Sodium Potassium Chloride Carbon Dioxide BUN Creatinine Glucose POC Glucose Lactic Acid 2.40 H* 2.30 H* 2.30 H* Uric Acid Calcium Magnesium Total Bilirubin Direct Bilirubin AST ALT Alkaline Phosphatase Ammonia C-Reactive Protein Total Protein Albumin Vitamin B1 Vitamin B12 25-OH Vitamin D Total Free T4 T3 (GILSON) Urine Creatinine Urine Total Protein Acetaminophen 06/28/18 06/28/18 06/28/18 02:35 05:00 05:00 WBC RBC Hgb Hct MCV MCH RDW Plt Count Lymph % (Auto) [place] % (Auto) Lymph # [place] # Seg Neutrophils % Seg Neuts % (Manual) Lymphocytes % (Manual) Monocytes % (Manual) Seg Neutrophils # Seg Neutrophils # Man Lymphocytes # (Manual) Monocytes # (Manual) POC ABG pH POC ABG pCO2 POC ABG pO2 Sodium 134 L Potassium 2.6 L* D Chloride 92.3 L Carbon Dioxide 32 H BUN 34 H Creatinine 1.8 H Glucose 127 H POC Glucose Lactic Acid 2.20 H* 2.30 H* Uric Acid Calcium 7.5 L Magnesium Total Bilirubin 3.50 H Direct Bilirubin AST 226 H ALT 60 H Alkaline Phosphatase 172 H Ammonia C-Reactive Protein Total Protein 4.2 L Albumin 2.0 L Vitamin B1 Vitamin B12 25-OH Vitamin D Total Free T4 T3 (GILSON) Urine Creatinine Urine Total Protein Acetaminophen 06/28/18 06/28/18 06/28/18 05:00 08:30 08:30 WBC 15.7 H RBC Hgb Hct MCV 77 L MCH 25 L RDW 18.5 H Plt Count 112 L Lymph % (Auto) 6.0 L [place] % (Auto) 10.0 H Lymph # 0.9 L [place] # 1.6 H Seg Neutrophils % 83.4 H Seg Neuts % (Manual) Lymphocytes % (Manual) Monocytes % (Manual) Seg Neutrophils # 13.1 H Seg Neutrophils # Man Lymphocytes # (Manual) Monocytes # (Manual) POC ABG pH POC ABG pCO2 POC ABG pO2 Sodium Potassium Chloride Carbon Dioxide BUN Creatinine Glucose POC Glucose Lactic Acid 2.40 H* Uric Acid Calcium Magnesium Total Bilirubin Direct Bilirubin AST ALT Alkaline Phosphatase Ammonia C-Reactive Protein 4.80 H Total Protein Albumin Vitamin B1 Vitamin B12 25-OH Vitamin D Total Free T4 T3 (GILSON) Urine Creatinine Urine Total Protein Acetaminophen 06/28/18 06/28/18 06/28/18 10:53 11:23 18:35 WBC RBC Hgb Hct MCV MCH RDW Plt Count Lymph % (Auto) [place] % (Auto) Lymph # [place] # Seg Neutrophils % Seg Neuts % (Manual) Lymphocytes % (Manual) Monocytes % (Manual) Seg Neutrophils # Seg Neutrophils # Man Lymphocytes # (Manual) Monocytes # (Manual) POC ABG pH 7.552 H POC ABG pCO2 POC ABG pO2 Sodium Potassium 3.1 L Chloride Carbon Dioxide BUN Creatinine Glucose POC Glucose 122 H Lactic Acid Uric Acid Calcium Magnesium Total Bilirubin Direct Bilirubin AST ALT Alkaline Phosphatase Ammonia C-Reactive Protein Total Protein Albumin Vitamin B1 Vitamin B12 25-OH Vitamin D Total Free T4 T3 (GILSON) Urine Creatinine Urine Total Protein Acetaminophen 06/29/18 06/29/18 06/29/18 06:40 06:40 19:44 WBC 14.6 H RBC Hgb Hct MCV 77 L MCH 25 L RDW 19.3 H Plt Count 88 L Lymph % (Auto) [place] % (Auto) Lymph # [place] # Seg Neutrophils % Seg Neuts % (Manual) Lymphocytes % (Manual) Monocytes % (Manual) Seg Neutrophils # Seg Neutrophils # Man Lymphocytes # (Manual) Monocytes # (Manual) POC ABG pH POC ABG pCO2 POC ABG pO2 Sodium Potassium 2.7 L* Chloride 95.3 L Carbon Dioxide 32 H BUN 25 H Creatinine Glucose 145 H POC Glucose 59 L Lactic Acid Uric Acid Calcium 7.9 L Magnesium Total Bilirubin 3.60 H Direct Bilirubin AST 213 H ALT Alkaline Phosphatase 176 H Ammonia C-Reactive Protein Total Protein 4.8 L Albumin 2.2 L Vitamin B1 Vitamin B12 25-OH Vitamin D Total Free T4 T3 (GILSON) Urine Creatinine Urine Total Protein Acetaminophen 06/29/18 06/30/18 06/30/18 20:43 02:37 04:45 WBC RBC Hgb Hct MCV MCH RDW Plt Count Lymph % (Auto) [place] % (Auto) Lymph # [place] # Seg Neutrophils % Seg Neuts % (Manual) Lymphocytes % (Manual) Monocytes % (Manual) Seg Neutrophils # Seg Neutrophils # Man Lymphocytes # (Manual) Monocytes # (Manual) POC ABG pH POC ABG pCO2 POC ABG pO2 Sodium Potassium 3.1 L 2.8 L* Chloride Carbon Dioxide 31 H BUN 18 H Creatinine Glucose POC Glucose 59 L Lactic Acid Uric Acid Calcium 8.0 L Magnesium Total Bilirubin 3.70 H Direct Bilirubin AST 216 H ALT 63 H Alkaline Phosphatase 163 H Ammonia C-Reactive Protein Total Protein 4.5 L Albumin 2.1 L Vitamin B1 Vitamin B12 25-OH Vitamin D Total Free T4 T3 ([facility]ILSON) Urine Creatinine Urine Total Protein Acetaminophen 06/30/18 06/30/18 07/01/18 04:45 06:24 04:39 WBC 12.1 H RBC Hgb Hct MCV 78 L 77 L MCH 25 L 25 L RDW 19.0 H 19.3 H Plt Count 91 L 77 L Lymph % (Auto) [place] % (Auto) Lymph # [place] # Seg Neutrophils % Seg Neuts % (Manual) Lymphocytes % (Manual) Monocytes % (Manual) Seg Neutrophils # Seg Neutrophils # Man Lymphocytes # (Manual) Monocytes # (Manual) POC ABG pH POC ABG pCO2 POC ABG pO2 Sodium Potassium Chloride Carbon Dioxide BUN Creatinine Glucose POC Glucose 63 L Lactic Acid Uric Acid Calcium Magnesium Total Bilirubin Direct Bilirubin AST ALT Alkaline Phosphatase Ammonia C-Reactive Protein Total Protein Albumin Vitamin B1 Vitamin B12 25-OH Vitamin D Total Free T4 T3 ([facility]ILSON) Urine Creatinine Urine Total Protein Acetaminophen 07/01/18 07/01/18 07/02/18 04:39 11:12 05:23 WBC RBC Hgb Hct MCV 77 L MCH 25 L RDW 19.2 H Plt Count 78 L Lymph % (Auto) [place] % (Auto) Lymph # [place] # Seg Neutrophils % Seg Neuts % (Manual) Lymphocytes % (Manual) Monocytes % (Manual) Seg Neutrophils # Seg Neutrophils # Man Lymphocytes # (Manual) Monocytes # (Manual) POC ABG pH POC ABG pCO2 POC ABG pO2 Sodium Potassium 3.5 L D Chloride Carbon Dioxide BUN Creatinine Glucose 109 H POC Glucose 206 H Lactic Acid Uric Acid Calcium 8.1 L Magnesium Total Bilirubin 3.90 H Direct Bilirubin AST 163 H ALT 60 H Alkaline Phosphatase 166 H Ammonia C-Reactive Protein Total Protein 4.5 L Albumin 2.0 L Vitamin B1 Vitamin B12 25-OH Vitamin D Total Free T4 T3 ([facility]ILSON) Urine Creatinine Urine Total Protein Acetaminophen 07/02/18 07/02/18 07/03/18 05:23 12:18 08:14 WBC RBC Hgb Hct MCV 76 L MCH 25 L RDW 19.0 H Plt Count 84 L Lymph % (Auto) [place] % (Auto) Lymph # [place] # Seg Neutrophils % Seg Neuts % (Manual) Lymphocytes % (Manual) Monocytes % (Manual) Seg Neutrophils # Seg Neutrophils # Man Lymphocytes # (Manual) Monocytes # (Manual) POC ABG pH POC ABG pCO2 POC ABG pO2 Sodium 135 L Potassium 3.4 L Chloride Carbon Dioxide BUN Creatinine 0.6 L Glucose POC Glucose 144 H Lactic Acid Uric Acid Calcium 8.3 L Magnesium Total Bilirubin Direct Bilirubin AST ALT Alkaline Phosphatase Ammonia C-Reactive Protein Total Protein Albumin Vitamin B1 Vitamin B12 25-OH Vitamin D Total Free T4 T3 (GILSON) Urine Creatinine Urine Total Protein Acetaminophen 07/03/18 07/03/18 07/04/18 08:14 16:33 05:36 WBC RBC Hgb Hct MCV 77 L MCH 25 L RDW 18.5 H Plt Count 103 L Lymph % (Auto) [place] % (Auto) Lymph # [place] # Seg Neutrophils % Seg Neuts % (Manual) Lymphocytes % (Manual) Monocytes % (Manual) Seg Neutrophils # Seg Neutrophils # Man Lymphocytes # (Manual) Monocytes # (Manual) POC ABG pH POC ABG pCO2 POC ABG pO2 Sodium 135 L Potassium Chloride 97.7 L Carbon Dioxide BUN Creatinine 0.5 L Glucose POC Glucose 69 L Lactic Acid Uric Acid Calcium 8.2 L Magnesium 1.50 L Total Bilirubin Direct Bilirubin AST ALT Alkaline Phosphatase Ammonia C-Reactive Protein Total Protein Albumin Vitamin B1 Vitamin B12 25-OH Vitamin D Total Free T4 T3 ([facility]ILSON) Urine Creatinine Urine Total Protein Acetaminophen 07/04/18 07/04/18 07/04/18 05:36 08:54 11:47 WBC RBC Hgb Hct MCV MCH RDW Plt Count Lymph % (Auto) [place] % (Auto) Lymph # [place] # Seg Neutrophils % Seg Neuts % (Manual) Lymphocytes % (Manual) Monocytes % (Manual) Seg Neutrophils # Seg Neutrophils # Man Lymphocytes # (Manual) Monocytes # (Manual) POC ABG pH POC ABG pCO2 POC ABG pO2 Sodium 135 L Potassium Chloride Carbon Dioxide BUN Creatinine 0.5 L Glucose POC Glucose 61 L 122 H Lactic Acid Uric Acid Calcium 8.2 L Magnesium Total Bilirubin Direct Bilirubin AST ALT Alkaline Phosphatase Ammonia C-Reactive Protein Total Protein Albumin Vitamin B1 Vitamin B12 25-OH Vitamin D Total Free T4 T3 ([facility]) Urine Creatinine Urine Total Protein Acetaminophen 07/04/18 07/05/18 07/06/18 16:44 21:15 11:50 WBC RBC Hgb Hct MCV MCH RDW Plt Count Lymph % (Auto) [place] % (Auto) Lymph # [place] # Seg Neutrophils % Seg Neuts % (Manual) Lymphocytes % (Manual) Monocytes % (Manual) Seg Neutrophils # Seg Neutrophils # Man Lymphocytes # (Manual) Monocytes # (Manual) POC ABG pH POC ABG pCO2 POC ABG pO2 Sodium Potassium Chloride Carbon Dioxide BUN Creatinine Glucose POC Glucose 124 H 150 H 67 L Lactic Acid Uric Acid Calcium Magnesium Total Bilirubin Direct Bilirubin AST ALT Alkaline Phosphatase Ammonia C-Reactive Protein Total Protein Albumin Vitamin B1 Vitamin B12 25-OH Vitamin D Total Free T4 T3 (GIL[facility]) Urine Creatinine Urine Total Protein Acetaminophen 07/06/18 07/06/18 07/06/18 13:32 16:27 21:13 WBC RBC Hgb Hct MCV MCH RDW Plt Count Lymph % (Auto) [place] % (Auto) Lymph # [place] # Seg Neutrophils % Seg Neuts % (Manual) Lymphocytes % (Manual) Monocytes % (Manual) Seg Neutrophils # Seg Neutrophils # Man Lymphocytes # (Manual) Monocytes # (Manual) POC ABG pH POC ABG pCO2 POC ABG pO2 Sodium Potassium Chloride Carbon Dioxide BUN Creatinine Glucose POC Glucose 146 H 125 H 69 L Lactic Acid Uric Acid Calcium Magnesium Total Bilirubin Direct Bilirubin AST ALT Alkaline Phosphatase Ammonia C-Reactive Protein Total Protein Albumin Vitamin B1 Vitamin B12 25-OH Vitamin D Total Free T4 T3 ([facility]) Urine Creatinine Urine Total Protein Acetaminophen 07/07/18 07/08/18 07/08/18 12:18 04:55 04:55 WBC RBC Hgb Hct MCV 78 L MCH 25 L RDW 18.2 H Plt Count Lymph % (Auto) [place] % (Auto) 14.8 H Lymph # [place] # 1.3 H Seg Neutrophils % Seg Neuts % (Manual) Lymphocytes % (Manual) Monocytes % (Manual) Seg Neutrophils # Seg Neutrophils # Man Lymphocytes # (Manual) Monocytes # (Manual) POC ABG pH POC ABG pCO2 POC ABG pO2 Sodium 136 L Potassium Chloride Carbon Dioxide BUN Creatinine 0.5 L Glucose 110 H POC Glucose 132 H Lactic Acid Uric Acid Calcium 8.0 L Magnesium Total Bilirubin Direct Bilirubin AST ALT Alkaline Phosphatase Ammonia C-Reactive Protein Total Protein Albumin Vitamin B1 Vitamin B12 25-OH Vitamin D Total Free T4 T3 ([facility]) Urine Creatinine Urine Total Protein Acetaminophen 07/08/18 07/08/18 07/08/18 14:27 17:11 21:20 WBC RBC Hgb Hct MCV MCH RDW Plt Count Lymph % (Auto) [place] % (Auto) Lymph # [place] # Seg Neutrophils % Seg Neuts % (Manual) Lymphocytes % (Manual) Monocytes % (Manual) Seg Neutrophils # Seg Neutrophils # Man Lymphocytes # (Manual) Monocytes # (Manual) POC ABG pH POC ABG pCO2 POC ABG pO2 Sodium Potassium Chloride Carbon Dioxide BUN Creatinine Glucose POC Glucose 133 H 113 H 126 H Lactic Acid Uric Acid Calcium Magnesium Total Bilirubin Direct Bilirubin AST ALT Alkaline Phosphatase Ammonia C-Reactive Protein Total Protein Albumin Vitamin B1 Vitamin B12 25-OH Vitamin D Total Free T4 T3 (GIL[facility]) Urine Creatinine Urine Total Protein Acetaminophen 07/09/18 07/10/18 07/10/18 17:03 08:36 20:51 WBC RBC Hgb Hct MCV MCH RDW Plt Count Lymph % (Auto) [place] % (Auto) Lymph # [place] # Seg Neutrophils % Seg Neuts % (Manual) Lymphocytes % (Manual) Monocytes % (Manual) Seg Neutrophils # Seg Neutrophils # Man Lymphocytes # (Manual) Monocytes # (Manual) POC ABG pH POC ABG pCO2 POC ABG pO2 Sodium Potassium Chloride Carbon Dioxide BUN Creatinine Glucose POC Glucose 116 H 128 H 159 H Lactic Acid Uric Acid Calcium Magnesium Total Bilirubin Direct Bilirubin AST ALT Alkaline Phosphatase Ammonia C-Reactive Protein Total Protein Albumin Vitamin B1 Vitamin B12 25-OH Vitamin D Total Free T4 T3 ([facility]IL[facility]) Urine Creatinine Urine Total Protein Acetaminophen 07/11/18 07/11/18 07/11/18 03:22 03:22 12:07 WBC RBC Hgb Hct MCV 78 L MCH 26 L RDW 17.4 H Plt Count Lymph % (Auto) [place] % (Auto) Lymph # [place] # Seg Neutrophils % Seg Neuts % (Manual) Lymphocytes % (Manual) Monocytes % (Manual) 13.0 H Seg Neutrophils # Seg Neutrophils # Man Lymphocytes # (Manual) Monocytes # (Manual) POC ABG pH POC ABG pCO2 POC ABG pO2 Sodium 135 L Potassium Chloride Carbon Dioxide BUN Creatinine 0.6 L Glucose 101 H POC Glucose 345 H Lactic Acid Uric Acid Calcium 8.0 L Magnesium Total Bilirubin 1.50 H Direct Bilirubin AST 63 H ALT Alkaline Phosphatase 350 H Ammonia C-Reactive Protein Total Protein 5.5 L Albumin 2.0 L Vitamin B1 Vitamin B12 25-OH Vitamin D Total Free T4 T3 (GILSON) Urine Creatinine Urine Total Protein Acetaminophen Allied health notes reviewed: nursing
[2018-07-12] MEDS: LOPRESSOR PO SCH ×3 (02:02→19:52)
[2018-07-12] MEDS: LASIX PO SCH ×2 (05:38→17:58)
[2018-07-12] MEDS: HumaLOG SUB-Q SCH ×4 (08:08→22:35)
--- NOTE | 2018-07-12 08:32 | Progress Note ---
Assessment and Plan S/P Cardiac arrest thought secondary to Haldol treatment s/p cardioversion Hypokalemia -resolved Respiratory failure -extubated Chronic systolic heart failure Atrial fibrillation/flutter on metoprolol, digoxin and eliquis therapy Severe depression Altered mental status -improved Non-ischemic cardiomyopathy Lactic acidosis Hyponatremia Elevated bilirubin and alk phosphatase - chronic secondary to congestive hepatopathy Non-compliance with medical therapy and outpatient cardiac follow up. Echo 04/2018 at [facility] showed: a 4 chamber dilated cardiomyopathy, LVEF severely decreased, 20-25%. Moderate mitral regurgitation. Severe TR. RVSP is severely elevated. Medical therapy for chronic systolic left ventricular dysfunction as tolerated. We will continue a conservative cardiac management. Subjective Date of service: 07/12/18 Principal diagnosis: altered mental status, psychosis, chronic systolic heart failure, Interval history: Patient denies chest pain and shortness of breath. Awaits placement. Objective Vital Signs Temp Pulse Pulse Resp Resp BP Pulse Ox 07/12/18 02:02 90 137/69 07/12/18 01:58 98.3 F 111 H 20 137/69 100 07/11/18 22:45 100 H 18 07/11/18 22:39 100 07/11/18 22:38 104 H 18 100 07/11/18 22:35 104 H 18 07/11/18 20:12 102 H 99 07/11/18 20:01 98.3 F 20 119/81 07/11/18 17:19 109 H 101/66 07/11/18 17:04 109 H 101/66 07/11/18 14:35 109 H 20 07/11/18 14:25 98 H 20 07/11/18 13:30 99.0 F 88 20 101/66 99 07/11/18 10:03 98 H 123/82 07/11/18 09:10 100 H 20 07/11/18 09:00 109 H 20 97 - Physical Examination General: No Apparent Distress HEENT: Positive: PERRL Neck: Positive: trachea midline Cardiac: Positive: Reg Rate and Rhythm Lungs: Positive: Decreased Breath Sounds Neuro: Positive: Grossly Intact Abdomen: Positive: Active Bowel Sounds - Allied health notes Allied health notes reviewed: nursing
[2018-07-12] MEDS: ZESTRIL PO SCH (09:02)
[2018-07-12] MEDS: PEPCID PO SCH (09:02)
[2018-07-12] MEDS: ELIQUIS PO SCH ×2 (09:02→22:34)
[2018-07-12] MEDS: ZOLOFT PO SCH (09:02)
[2018-07-12] MEDS: DUONEB *Not for PRN Use IH SCH ×3 (10:17→21:08)
[2018-07-12] MEDS ORDERED: NITROSTAT SL PRN ×2 (12:22)
--- NOTE | 2018-07-12 12:54 | XRay Report ---
AP CHEST: HISTORY: Chest pain Mild cardiomegaly, borderline pulmonary venous structures in small left pleural effusion are identified. These findings have improved since 07/05/18. Left arm PICC remains in a good position. IMPRESSION: Mild volume overload but significantly improved since the exam 7 days ago.
[2018-07-12] MEDS ORDERED: DUONEB *Not for PRN Use IH ONE (14:25)
--- NOTE | 2018-07-12 15:08 | Progress Note ---
Assessment and Plan Assessment and plan: Chest pain , today Troponin, EKG Serial cardiac enzymes Nitrosublingual Acute Respiratory failure following Cardiac Arrest - ? PEA from hypoglycemia or Haldol administration- now off the ventilator and o n nasal canula Patient stable s/p Cardiac arrest after Haldol: listed Haldol as an Allergy/Adverse drug. Severe NICM also contributed to the evant Patient stable Severe NICM, ionotrope dependent : - Cardiology recommends Hospice, dobutamine now off by Cardiology - family not in agreement for code status, hospice now pending Patient stable Acute on Chronic systolic CHF of EF 20-25%, - patient has been on hospice before, it appears she was discharged from home hospice. - cont current meds, daily ins/os/daily wt Medications optimized Permanent Atrial fib/flutter: Eliquis resumed Altered mental status, with acute encephalopathy - suspected Dementia with psychotic features: Psych following - Continue home medication Zoloft 50 mg PO daily for now Psychosis improved and her encephalopathy improved Hypoglycemia-, resolved Hyponatremia, due to diuresis and CHF: Nephrology following Improved Elevated LFT, Likely congestive hepatopathy due to end stage NICMP, closely monitor Severe protein calorie malnutrition: Box Tender consulted SIRS- ?underlying PNA doubt based on xray review and lack of fever or leukocytoisis: check blood culture- NO GROWTH. Antibiotics discontinued Improved Persistently elevated Lactic acidosis:-Likely secondary to hypoperfusion- Improved Hypokalemia: Resolved -DVT prophylaxis: Patient is on Eliquis Waiting for NH placement/Hospice History Interval history: Chest pain No SOB Hospitalist Physical - Physical exam Narrative exam: GEN: Not in acute distress, lying in bed, obese HEENT: Normocephalic, atraumatic, Neck: supple, No JVD heart: S1 and S2 reg, no murmurs, rubs or gallop Lungs: Clear to auscultation bilat, no crackles, no wheeze Abd:soft, non tender, non distended, normal bowel sounds Ext: No edema, no clubbing, no cyanosis Neuro:Awake,alert, moves all ext. - Constitutional Vitals: Temp Pulse Resp BP Pulse Ox 97.8 F 98 H 18 144/84 100 07/12/18 13:03 07/12/18 14:38 07/12/18 14:38 07/12/18 13:03 07/12/18 13:03 General appearance: Present: no acute distress, well-nourished Results - Labs CBC & Chem 7: 07/11/18 03:22 07/11/18 03:22 Labs: Laboratory Last Values WBC 5.3 K/mm3 (4.5-11.0) 07/11/18 03:22 RBC 4.54 M/mm3 (3.65-5.03) 07/11/18 03:22 Hgb 11.7 gm/dl (10.1-14.3) 07/11/18 03:22 Hct 35.3 % (30.3-42.9) 07/11/18 03:22 MCV 78 fl (79-97) L 07/11/18 03:22 MCH 26 pg (28-32) L 07/11/18 03:22 MCHC 33 % (30-34) 07/11/18 03:22 RDW 17.4 % (13.2-15.2) H 07/11/18 03:22 Plt Count 324 K/mm3 (140-440) 07/11/18 03:22 Lymph % (Auto) 20.7 % (13.4-35.0) 07/08/18 04:55 [place] % (Auto) Magnesium Mill Operator 07/11/18 03:22 Eos % (Auto) 1.3 % (0.0-4.3) 07/08/18 04:55 Baso % (Auto) 0.6 % (0.0-1.8) 07/08/18 04:55 Lymph # 1.8 K/mm3 (1.2-5.4) 07/08/18 04:55 [place] # 1.3 K/mm3 (0.0-0.8) H 07/08/18 04:55 Eos # 0.1 K/mm3 (0.0-0.4) 07/08/18 04:55 Baso # 0.1 K/mm3 (0.0-0.1) 07/08/18 04:55 Add Manual Diff Complete 07/11/18 03:22 Total Counted 100 07/11/18 03:22 Seg Neutrophils % 62.6 % (40.0-70.0) 07/08/18 04:55 Seg Neuts % (Manual) 51.0 % (40.0-70.0) 07/11/18 03:22 Band Neutrophils % 0 % 07/11/18 03:22 Lymphocytes % (Manual) 34.0 % (13.4-35.0) 07/11/18 03:22 Reactive Lymphs % (Man) 2.0 % 07/11/18 03:22 Monocytes % (Manual) 13.0 % (0.0-7.3) H 07/11/18 03:22 Eosinophils % (Manual) 0 % (0.0-4.3) 07/11/18 03:22 Basophils % (Manual) 0 % (0.0-1.8) 07/11/18 03:22 Metamyelocytes % 0 % 07/11/18 03:22 Myelocytes % 0 % 07/11/18 03:22 Promyelocytes % 0 % 07/11/18 03:22 Blast Cells % 0 % 07/11/18 03:22 Nucleated RBC % Not Reportable 07/11/18 03:22 Seg Neutrophils # 5.3 K/mm3 (1.8-7.7) 07/08/18 04:55 Seg Neutrophils # Man 2.7 K/mm3 (1.8-7.7) 07/11/18 03:22 Band Neutrophils # 0.0 K/mm3 07/11/18 03:22 Lymphocytes # (Manual) 1.8 K/mm3 (1.2-5.4) 07/11/18 03:22 Abs React Lymphs (Man) 0.1 K/mm3 07/11/18 03:22 Monocytes # (Manual) 0.7 K/mm3 (0.0-0.8) 07/11/18 03:22 Eosinophils # (Manual) 0.0 K/mm3 (0.0-0.4) 07/11/18 03:22 Basophils # (Manual) 0.0 K/mm3 (0.0-0.1) 07/11/18 03:22 Metamyelocytes # 0.0 K/mm3 07/11/18 03:22 Myelocytes # 0.0 K/mm3 07/11/18 03:22 Promyelocytes # 0.0 K/mm3 07/11/18 03:22 Blast Cells # 0.0 K/mm3 07/11/18 03:22 WBC Morphology Not Reportable 07/11/18 03:22 Hypersegmented Neuts Not Reportable 07/11/18 03:22 Hyposegmented Neuts Not Reportable 07/11/18 03:22 Hypogranular Neuts Not Reportable 07/11/18 03:22 Smudge Cells Not Reportable 07/11/18 03:22 Toxic Granulation Not Reportable 07/11/18 03:22 Toxic Vacuolation Not Reportable 07/11/18 03:22 Dohle Bodies Not Reportable 07/11/18 03:22 Pelger-Huet Anomaly Not Reportable 07/11/18 03:22 Sushma Rods Not Reportable 07/11/18 03:22 Platelet Estimate Consistent w auto 07/11/18 03:22 Clumped Platelets Not Reportable 07/11/18 03:22 Plt Clumps, EDTA Not Reportable 07/11/18 03:22 Large Platelets Not Reportable 07/11/18 03:22 Giant Platelets Not Reportable 07/11/18 03:22 Platelet Satelliting Not Reportable 07/11/18 03:22 Plt Morphology Comment Not Reportable 07/11/18 03:22 RBC Morphology Not Reportable 07/11/18 03:22 Dimorphic RBCs Not Reportable 07/11/18 03:22 Polychromasia Not Reportable 07/11/18 03:22 Hypochromasia 2+ 07/11/18 03:22 Poikilocytosis 2+ 07/11/18 03:22 Anisocytosis 1+ 07/11/18 03:22 Microcytosis Not Reportable 07/11/18 03:22 Macrocytosis Not Reportable 07/11/18 03:22 Spherocytes Not Reportable 07/11/18 03:22 Pappenheimer Bodies Not Reportable 07/11/18 03:22 Sickle Cells Not Reportable 07/11/18 03:22 Target Cells 1+ 07/11/18 03:22 Tear Drop Cells Few 07/11/18 03:22 Ovalocytes Few 07/11/18 03:22 Helmet Cells Not Reportable 07/11/18 03:22 [place] Bodies Not Reportable 07/11/18 03:22 [place] Rings Not Reportable 07/11/18 03:22 Dale Cells Not Reportable 07/11/18 03:22 Bite Cells Not Reportable 07/11/18 03:22 Crenated Cell Not Reportable 07/11/18 03:22 Elliptocytes Few 07/11/18 03:22 Acanthocytes (Spur) Not Reportable 07/11/18 03:22 Rouleaux Not Reportable 07/11/18 03:22 Hemoglobin C Crystals Not Reportable 07/11/18 03:22 Schistocytes Not Reportable 07/11/18 03:22 Malaria parasites Not Reportable 07/11/18 03:22 Saqib Bodies Not Reportable 07/11/18 03:22 Hem Pathologist Commnt No 07/11/18 03:22 POC ABG pH 7.552 (7.35-7.45) H 06/28/18 10:53 POC ABG pCO2 40.8 (35-45) 06/28/18 10:53 POC ABG pO2 83 (80-105) 06/28/18 10:53 POC ABG HCO3 35.9 (22-26 mml/L) 06/28/18 10:53 POC ABG Total CO2 37 (23-27mmol/L) 06/28/18 10:53 POC ABG O2 Sat 97 06/28/18 10:53 POC ABG Base Excess 14 ((-2) - (+3)mmol/L) 06/28/18 10:53 FiO2 30 % 06/28/18 10:53 Sodium 135 mmol/L (137-145) L 07/11/18 03:22 Potassium 3.9 mmol/L (3.6-5.0) 07/11/18 03:22 Chloride 99.7 mmol/L (98-107) 07/11/18 03:22 Carbon Dioxide 24 mmol/L (22-30) 07/11/18 03:22 Anion Gap 15 mmol/L 07/11/18 03:22 BUN 10 mg/dL (7-17) 07/11/18 03:22 Creatinine 0.6 mg/dL (0.7-1.2) L 07/11/18 03:22 Estimated GFR > 60 ml/min 07/11/18 03:22 BUN/Creatinine Ratio 17 % 07/11/18 03:22 Glucose 101 mg/dL (65-100) H 07/11/18 03:22 POC Glucose 168 (70-105) H 07/12/18 12:05 Hemoglobin A1c 5.5 % (4-6) 06/17/18 15:08 Osmolality 276 Mosm/kg 06/20/18 07:31 Lactic Acid 1.30 mmol/L (0.7-2.0) 07/02/18 23:33 Uric Acid 9.2 mg/dL (3.5-7.6) H 06/21/18 16:27 Calcium 8.0 mg/dL (8.4-10.2) L 07/11/18 03:22 Phosphorus 2.50 mg/dL (2.5-4.5) 06/20/18 07:31 Magnesium 1.50 mg/dL (1.7-2.3) L 07/03/18 08:14 Total Bilirubin 1.50 mg/dL (0.1-1.2) H 07/11/18 03:22 Direct Bilirubin 1.6 mg/dL (0-0.2) H 06/17/18 11:00 Indirect Bilirubin -1.4 mg/dL 06/17/18 11:00 AST 63 units/L (5-40) H 07/11/18 03:22 ALT 53 units/L (7-56) 07/11/18 03:22 Alkaline Phosphatase 350 units/L (35-129) H 07/11/18 03:22 Ammonia 38.0 umol/L (25-60) 06/25/18 16:02 Total Creatine Kinase 50 units/L (30-135) 07/12/18 12:25 CK-MB (CK-2) 3.0 ng/mL (0.0-4.0) 07/12/18 12:25 CK-MB (CK-2) Rel Index 6.0 (0-4) H 07/12/18 12:25 Troponin T 0.016 ng/mL (0.00-0.029) 07/12/18 12:25 C-Reactive Protein 4.80 mg/dL (0.00-1.30) H 06/28/18 05:00 Total Protein 5.5 g/dL (6.3-8.2) L 07/11/18 03:22 Albumin 2.0 g/dL (3.9-5) L 07/11/18 03:22 Albumin/Globulin Ratio 0.6 % 07/11/18 03:22 Vitamin B1 <6 nmol/L (8-30) L 06/21/18 16:27 Vitamin B12 1598 pg/mL (211-911) H 06/20/18 20:53 25-OH Vitamin D Total 10 ng/mL (30-100) L 06/20/18 20:53 25-Hydroxy Vitamin D2 . 06/20/18 20:53 25-Hydroxy Vitamin D3 . 06/20/18 20:53 Folate 14.18 ng/mL (7.3-26.0) 06/20/18 20:53 TSH 1.540 mlU/mL (0.270-4.200) 06/27/18 09:29 Free T4 1.78 ng/dL (0.76-1.46) H 06/27/18 09:29 T3 (GILSON) 58 ng/dL (76-181) L 06/20/18 16:51 Urine Color Caryl (Yellow) 06/16/18 Unknown Urine Turbidity Clear (Clear) 06/16/18 Unknown Urine pH 5.0 (5.0-7.0) 06/16/18 Unknown Ur Specific [place] 1.025 (1.003-1.030) 06/16/18 Unknown Urine Protein 100 mg/dl mg/dL (Negative) 06/16/18 Unknown Urine Glucose (UA) 50 mg/dL (Negative) 06/16/18 Unknown Urine Ketones Neg mg/dL (Negative) 06/16/18 Unknown Urine Blood Neg (Negative) 06/16/18 Unknown Urine Nitrite Neg (Negative) 06/16/18 Unknown Urine Bilirubin Neg (Negative) 06/16/18 Unknown Urine Urobilinogen 4.0 mg/dL (<2.0) 06/16/18 Unknown Ur Leukocyte Esterase Neg (Negative) 06/16/18 Unknown Urine WBC (Auto) 4.0 /HPF (0.0-6.0) 06/16/18 Unknown Urine RBC (Auto) 5.0 /HPF (0.0-6.0) 06/16/18 Unknown U Epithel Cells (Auto) 7.0 /HPF (0-13.0) 06/16/18 Unknown Hyaline Casts 49 /LPF 06/16/18 Unknown Urine Mucus Few /HPF 06/16/18 Unknown Urine Osmolality 413 Mosm/kg 06/19/18 Unknown Urine Creatinine 61.7 mg/dL (0.1-20.0) H 06/19/18 Unknown Urine Total Protein 32 mg/dL (5-11.8) H 06/19/18 Unknown Salicylates 5.5 mg/dL (2.8-20.0) 06/16/18 21:43 Urine Opiates Screen Presumptive negative 06/16/18 Unknown Urine Methadone Screen Presumptive negative 06/16/18 Unknown Acetaminophen < 5.0 ug/mL (10.0-30.0) L 06/16/18 21:43 Ur Barbiturates Screen Presumptive negative 06/16/18 Unknown Ur Phencyclidine Scrn Presumptive negative 06/16/18 Unknown Ur Amphetamines Screen Presumptive negative 06/16/18 Unknown U Benzodiazepines Scrn Presumptive negative 06/16/18 Unknown Urine Cocaine Screen Presumptive negative 06/16/18 Unknown U Marijuana (THC) Screen Presumptive negative 06/16/18 Unknown Drugs of Abuse Note Disclamer 06/16/18 Unknown Plasma/Serum Alcohol < 0.01 % (0-0.07) 06/16/18 21:43 Thyroglobulin Antibody See scanned result 06/20/18 16:51 Thyroid Peroxidase Ab See scanned result 06/20/18 16:51 HIV 1&2 Antibody Rapid Non react (Non React) 06/21/18 16:27 HIV P24 Antigen Non react (Non React) 06/21/18 16:27 Active Medications - Current Medications Current Medications: Generic Name Dose Route Start Last Admin Trade Name Freq PRN Reason Stop Dose Admin Acetaminophen 650 mg 06/17/18 03:33 07/11/18 02:57 Tylenol PO 650 mg Q4H PRN Administration Fever >101 Albuterol/Ipratropium 1 ampul 06/27/18 14:00 07/12/18 10:17 Duoneb *Not For Prn Use* IH 1 ampul TIDRT JEANETTE Administration Apixaban 5 mg 06/20/18 16:00 07/12/18 09:02 Eliquis PO 5 mg Q12HR JEANETTE Administration Protocol Atorvastatin Calcium 20 mg 06/19/18 22:00 07/11/18 22:20 Lipitor PO 20 mg QHS JEANETTE Administration Dextrose 50 ml 07/01/18 11:50 07/12/18 08:58 D50w (25gm) Syringe IV 50 ml PRN PRN Administration Hypoglycemia Digoxin 0.125 mg 06/24/18 17:00 07/11/18 17:19 Lanoxin PO 0.125 mg DAILY@1700 JEANETTE Administration Famotidine 20 mg 06/27/18 12:00 07/12/18 09:02 Pepcid PO 20 mg DAILY JEANETTE Administration Furosemide 20 mg 07/05/18 18:00 07/12/18 05:38 Lasix PO 20 mg 0600,1800 JEANETTE Administration Insulin Human Lispro 0 unit 07/01/18 16:30 07/12/18 12:06 Humalog SUB-Q Not Given ACHS [facility] Protocol Lactulose 20 gm 07/04/18 12:00 Cephulac PO Q6HR PRN CONSTIPATION Lisinopril 2.5 mg 07/12/18 10:00 07/12/18 09:02 Zestril PO 2.5 mg QDAY JEANETTE Administration Metoprolol Tartrate 25 mg 06/25/18 09:00 07/12/18 09:02 Lopressor PO 25 mg Q8H JEANETTE Administration Nitroglycerin 0.4 mg 07/12/18 12:22 07/12/18 12:32 Nitrostat SL 0.4 mg .Q5MIN PRN Administration Chest Pain Ondansetron HCl 4 mg 06/17/18 03:24 Zofran IV Q8H PRN Nausea And Vomiting Sertraline HCl 50 mg 06/24/18 10:00 07/12/18 09:02 Zoloft PO 50 mg DAILY JEANETTE Administration Nutrition/Malnutrition Assess - Dietary Evaluation Nutrition/Malnutrition Findings: Nutrition Notes Start: 06/24/18 15:14 Freq: Status: Active Protocol: Document 07/12/18 12:13 EB (Rec: 07/12/18 12:20 EB [id number]) Co-Sign 07/12/18 12:13 LP Nutrition Notes Need for Assessment generated from: MD Order Initial or Follow up Reassessment Current Diagnosis Acute Kidney Injury, Hypertension,Heart Failure, Respiratory Failure Other Pertinent Diagnosis Dementia, s/p cardiac arrest, psychosis, AMS Current Diet Mechanical Soft w/chopped meat Labs/Tests Reviewed Pertinent Medications Reviewed Height 5 ft 5 in Weight 82.2 kg Benedict Body Weight (kg) 56.81 BMI 30.1 Subjective/Other Information Consulted for Malnutrition. Pt sititng in chair at bedside at time of visit using supplemental oxygen mask. Pt states she eats about half her meals and says she is hungry after eating but she does not like the food here. Pt consumes ONS daily. Slightl fluid accumulation noted in left arm. Percent of energy/protein needs met: 80%/73% Burn Absent Trauma Absent Minimum of two criteria No #1 Nutrition Diagnosis Inadequate oral intake As Evidenced by Signs and Symptoms pt eating 50% of meals and 100 % of ONS Diagnosis Progress(for reassessment Worsened documentation) Is patient on ventilator? No Is Patient Ambulatory and/or Out of Bed No REE-([facility]-confined to bed) 2413.221 Calculation Used for Recommendations [facility] Additional Notes Pro needs 1-1.2g/k-96 g/ day Fluid needs 1ml/kcall Nutrition Intervention Change Diet Order: Continue current Add Supplement/Snack (indicate name/kcal Ensure Clear 1 daily /protein ) Provides kCal: 240 Provides Protein (gm) 8 Goal #1 meet at least 75% of energy and protein needs via PO intake Anticipated Discharge Needs: Mechanical Soft Follow-Up By: 07/15/18 Additional Comments F/u: PO and ONS intakes
[2018-07-12] MEDS: LANOXIN PO SCH (17:58)
--- NOTE | 2018-07-12 18:36 | Progress Note ---
Assessment and Plan Patient sleeping at this time. Patient is on 3 litres o2. O2 saturation 100% .No acute respiratory distress.Patient afebrile. No leukocytosis. - Patient Problems (1) Cardiac arrest Current Visit: Yes Status: Acute Plan to address problem: Patient successfully resuciated. Patient resting on 3 litres O2.O2 saturation 100%. (2) Acute respiratory failure with hypoxia Current Visit: Yes Status: Acute Plan to address problem: Patient is on 3 litres O2. O2 saturation 100%. (3) Acute kidney failure with tubular necrosis Current Visit: Yes Status: Acute Plan to address problem: Management as per nephrology. (4) Altered mental status Current Visit: Yes Status: Acute Plan to address problem: Improving. Still confusing at times. (5) Paroxysmal atrial fibrillation Current Visit: Yes Status: Acute Plan to address problem: Patient is on Apixaban. Management as per cardiology. (6) Acute on chronic systolic heart failure Current Visit: No Status: Acute Plan to address problem: Management as per cardiology. (7) HTN (hypertension) Current Visit: No Status: Chronic Plan to address problem: Management as per primary care. (8) Left lower lobe pulmonary infiltrate Current Visit: Yes Status: Acute Plan to address problem: Patient afebrile. No leukocytosis. Repeat chest xray PA and Lateral reported volume Overload. Siignificant improvement in chest xray. Subjective Date of service: 07/12/18 Principal diagnosis: altered mental status, psychosis, chronic systolic heart failure, Interval history: Patient sleeping at this time. Patient is on 3 litres o2. O2 saturation 100% .No acute respiratory distress.Patient afebrile. No leukocytosis. Objective Vital Signs - 12hr 07/12/18 07/12/18 07/12/18 07:46 10:00 10:15 Temperature 97.8 F Pulse Rate Pulse Rate [ 94 H Anterior Bilateral] Pulse Rate [ 94 H Posterior Bilateral Throughout] Respiratory 20 Rate Respiratory 22 Rate [Anterior Bilateral] Respiratory 22 Rate [Posterior Bilateral Throughout] Blood Pressure 131/69 O2 Sat by Pulse 96 Oximetry 07/12/18 07/12/18 07/12/18 10:27 12:19 12:32 Temperature Pulse Rate 87 Pulse Rate [ 104 H Anterior Bilateral] Pulse Rate [ 104 H Posterior Bilateral Throughout] Respiratory 22 Rate Respiratory 20 Rate [Anterior Bilateral] Respiratory 20 Rate [Posterior Bilateral Throughout] Blood Pressure 144/80 144/80 O2 Sat by Pulse Oximetry 07/12/18 07/12/18 07/12/18 13:03 14:29 14:38 Temperature 97.8 F Pulse Rate 84 Pulse Rate [ 99 H 98 H Anterior Bilateral] Pulse Rate [ Posterior Bilateral Throughout] Respiratory 20 Rate Respiratory 22 18 Rate [Anterior Bilateral] Respiratory Rate [Posterior Bilateral Throughout] Blood Pressure 144/84 O2 Sat by Pulse 100 Oximetry 07/12/18 17:58 Temperature Pulse Rate 80 Pulse Rate [ Anterior Bilateral] Pulse Rate [ Posterior Bilateral Throughout] Respiratory Rate Respiratory Rate [Anterior Bilateral] Respiratory Rate [Posterior Bilateral Throughout] Blood Pressure O2 Sat by Pulse Oximetry Constitutional: no acute distress, alert, other (Confusing at times.) Eyes: non-icteric, other (Pupils 4mm, sluggichly reacting to light) ENT: oropharynx dry, other (extubated) Neck: supple, no lymphadenopathy, no JVD, other (no thyromegaly) Effort: normal Ascultation: Bilateral: diminished breath sounds, rales Percussion: Bilateral: not dull Cardiovascular: irregular rhythm, other (S1,S2,) Gastrointestinal: normoactive bowel sounds, soft, non-tender, non-distended Integumentary: rash (exematoid rash to upper chest) Extremities: no cyanosis, no edema, pulses normal, no ischemia or petechiae Neurologic: normal mental status, non-focal exam (grossly), pupils equal and round, CN II-XII normal Psychiatric: depressed CBC and BMP: 07/11/18 03:22 07/11/18 03:22 ABG, PT/INR, D-dimer: ABG POC ABG pH 7.552 (7.35-7.45) H 06/28/18 10:53 POC ABG pCO2 40.8 (35-45) 06/28/18 10:53 POC ABG pO2 83 (80-105) 06/28/18 10:53 POC ABG HCO3 35.9 (22-26 mml/L) 06/28/18 10:53 POC ABG Total CO2 37 (23-27mmol/L) 06/28/18 10:53 POC ABG O2 Sat 97 06/28/18 10:53 Abnormal lab findings: Abnormal Labs 06/16/18 06/16/18 06/16/18 21:05 21:43 21:43 WBC RBC Hgb Hct MCV MCH RDW Plt Count Lymph % (Auto) Carbon % (Auto) Lymph # Carbon # Seg Neutrophils % Seg Neuts % (Manual) Lymphocytes % (Manual) Monocytes % (Manual) Seg Neutrophils # Seg Neutrophils # Man Lymphocytes # (Manual) Monocytes # (Manual) POC ABG pH POC ABG pCO2 POC ABG pO2 Sodium 129 L Potassium Chloride 95.3 L Carbon Dioxide 14 L BUN 23 H Creatinine Glucose 146 H POC Glucose < 40 L Lactic Acid Uric Acid Calcium Magnesium Total Bilirubin Direct Bilirubin AST ALT Alkaline Phosphatase Ammonia CK-MB (CK-2) Rel Index C-Reactive Protein Total Protein Albumin Vitamin B1 Vitamin B12 25-OH Vitamin D Total Free T4 T3 (GILSON) Urine Creatinine Urine Total Protein Acetaminophen < 5.0 L 06/16/18 06/16/18 06/16/18 21:43 21:43 22:27 WBC RBC 5.70 H Hgb Hct 44.6 H MCV 78 L MCH 25 L RDW 18.7 H Plt Count Lymph % (Auto) Carbon % (Auto) Lymph # Carbon # Seg Neutrophils % 78.8 H Seg Neuts % (Manual) Lymphocytes % (Manual) Monocytes % (Manual) Seg Neutrophils # Seg Neutrophils # Man Lymphocytes # (Manual) Monocytes # (Manual) POC ABG pH POC ABG pCO2 POC ABG pO2 Sodium Potassium Chloride Carbon Dioxide BUN Creatinine Glucose POC Glucose 121 H Lactic Acid Uric Acid Calcium Magnesium Total Bilirubin Direct Bilirubin AST ALT Alkaline Phosphatase Ammonia CK-MB (CK-2) Rel Index C-Reactive Protein Total Protein Albumin Vitamin B1 Vitamin B12 25-OH Vitamin D Total Free T4 1.87 H T3 (GILSON) Urine Creatinine Urine Total Protein Acetaminophen 06/16/18 06/16/18 06/17/18 22:33 23:43 03:56 WBC RBC Hgb Hct MCV MCH RDW Plt Count Lymph % (Auto) Carbon % (Auto) Lymph # Carbon # Seg Neutrophils % Seg Neuts % (Manual) Lymphocytes % (Manual) Monocytes % (Manual) Seg Neutrophils # Seg Neutrophils # Man Lymphocytes # (Manual) Monocytes # (Manual) POC ABG pH POC ABG pCO2 POC ABG pO2 Sodium Potassium Chloride Carbon Dioxide BUN Creatinine Glucose POC Glucose Lactic Acid 4.40 H* 4.30 H* 3.10 H* Uric Acid Calcium Magnesium Total Bilirubin Direct Bilirubin AST ALT Alkaline Phosphatase Ammonia CK-MB (CK-2) Rel Index C-Reactive Protein Total Protein Albumin Vitamin B1 Vitamin B12 25-OH Vitamin D Total Free T4 T3 (GILSON) Urine Creatinine Urine Total Protein Acetaminophen 06/17/18 06/17/18 06/17/18 08:35 08:40 11:00 WBC RBC Hgb Hct MCV MCH RDW Plt Count Lymph % (Auto) Carbon % (Auto) Lymph # Carbon # Seg Neutrophils % Seg Neuts % (Manual) Lymphocytes % (Manual) Monocytes % (Manual) Seg Neutrophils # Seg Neutrophils # Man Lymphocytes # (Manual) Monocytes # (Manual) POC ABG pH POC ABG pCO2 POC ABG pO2 Sodium Potassium Chloride Carbon Dioxide BUN Creatinine Glucose POC Glucose 56 L Lactic Acid 2.70 H* 3.40 H* Uric Acid Calcium Magnesium Total Bilirubin Direct Bilirubin AST ALT Alkaline Phosphatase Ammonia CK-MB (CK-2) Rel Index C-Reactive Protein Total Protein Albumin Vitamin B1 Vitamin B12 25-OH Vitamin D Total Free T4 T3 (GILSON) Urine Creatinine Urine Total Protein Acetaminophen 06/17/18 06/17/18 06/17/18 11:00 11:00 11:00 WBC 11.9 H RBC 5.25 H Hgb Hct MCV MCH 25 L RDW 18.6 H Plt Count Lymph % (Auto) Carbon % (Auto) Lymph # Carbon # Seg Neutrophils % Seg Neuts % (Manual) Lymphocytes % (Manual) Monocytes % (Manual) Seg Neutrophils # Seg Neutrophils # Man Lymphocytes # (Manual) Monocytes # (Manual) POC ABG pH POC ABG pCO2 POC ABG pO2 Sodium 128 L Potassium Chloride 95.6 L Carbon Dioxide 15 L BUN 22 H Creatinine Glucose 110 H POC Glucose Lactic Acid Uric Acid Calcium 8.3 L Magnesium Total Bilirubin Direct Bilirubin 1.6 H AST 66 H ALT Alkaline Phosphatase 178 H Ammonia CK-MB (CK-2) Rel Index C-Reactive Protein Total Protein 4.7 L Albumin 2.4 L Vitamin B1 Vitamin B12 25-OH Vitamin D Total Free T4 T3 (GILSON) Urine Creatinine Urine Total Protein Acetaminophen 06/17/18 06/17/18 06/17/18 15:08 15:08 23:00 WBC RBC Hgb Hct MCV MCH RDW Plt Count Lymph % (Auto) Carbon % (Auto) Lymph # Carbon # Seg Neutrophils % Seg Neuts % (Manual) Lymphocytes % (Manual) Monocytes % (Manual) Seg Neutrophils # Seg Neutrophils # Man Lymphocytes # (Manual) Monocytes # (Manual) POC ABG pH POC ABG pCO2 POC ABG pO2 Sodium Potassium Chloride Carbon Dioxide BUN Creatinine Glucose POC Glucose Lactic Acid 4.00 H* Uric Acid Calcium Magnesium Total Bilirubin Direct Bilirubin AST ALT Alkaline Phosphatase Ammonia 10.0 L CK-MB (CK-2) Rel Index C-Reactive Protein Total Protein Albumin Vitamin B1 Vitamin B12 25-OH Vitamin D Total Free T4 1.53 H T3 (GILSON) Urine Creatinine Urine Total Protein Acetaminophen 06/18/18 06/18/18 06/18/18 08:59 08:59 12:49 WBC RBC 5.29 H Hgb Hct MCV 78 L MCH 25 L RDW 18.4 H Plt Count Lymph % (Auto) Carbon % (Auto) Lymph # Carbon # Seg Neutrophils % Seg Neuts % (Manual) Lymphocytes % (Manual) Monocytes % (Manual) Seg Neutrophils # Seg Neutrophils # Man Lymphocytes # (Manual) Monocytes # (Manual) POC ABG pH POC ABG pCO2 POC ABG pO2 Sodium 128 L Potassium 5.9 H D Chloride 96.1 L Carbon Dioxide 20 L BUN 22 H Creatinine Glucose POC Glucose 60 L Lactic Acid Uric Acid Calcium Magnesium Total Bilirubin Direct Bilirubin AST ALT Alkaline Phosphatase Ammonia CK-MB (CK-2) Rel Index C-Reactive Protein Total Protein Albumin Vitamin B1 Vitamin B12 25-OH Vitamin D Total Free T4 T3 (GILSON) Urine Creatinine Urine Total Protein Acetaminophen 06/18/18 06/19/18 06/19/18 21:28 12:14 13:23 WBC RBC Hgb Hct MCV MCH RDW Plt Count Lymph % (Auto) Carbon % (Auto) Lymph # Carbon # Seg Neutrophils % Seg Neuts % (Manual) Lymphocytes % (Manual) Monocytes % (Manual) Seg Neutrophils # Seg Neutrophils # Man Lymphocytes # (Manual) Monocytes # (Manual) POC ABG pH POC ABG pCO2 POC ABG pO2 Sodium 122 L Potassium 5.4 H Chloride 95.0 L Carbon Dioxide 13 L D BUN 21 H Creatinine Glucose 119 H POC Glucose 114 H Lactic Acid Uric Acid Calcium 8.3 L Magnesium Total Bilirubin Direct Bilirubin AST ALT Alkaline Phosphatase Ammonia CK-MB (CK-2) Rel Index C-Reactive Protein Total Protein Albumin Vitamin B1 Vitamin B12 25-OH Vitamin D Total Free T4 T3 (GILSON) Urine Creatinine Urine Total Protein Acetaminophen 06/19/18 06/19/18 06/19/18 14:47 16:38 22:42 WBC RBC 5.51 H Hgb Hct 45.3 H MCV MCH 25 L RDW 18.6 H Plt Count Lymph % (Auto) Carbon % (Auto) Lymph # Carbon # Seg Neutrophils % Seg Neuts % (Manual) Lymphocytes % (Manual) Monocytes % (Manual) Seg Neutrophils # Seg Neutrophils # Man Lymphocytes # (Manual) Monocytes # (Manual) POC ABG pH POC ABG pCO2 POC ABG pO2 Sodium Potassium Chloride Carbon Dioxide BUN Creatinine Glucose POC Glucose 108 H 49 L Lactic Acid Uric Acid Calcium Magnesium Total Bilirubin Direct Bilirubin AST ALT Alkaline Phosphatase Ammonia CK-MB (CK-2) Rel Index C-Reactive Protein Total Protein Albumin Vitamin B1 Vitamin B12 25-OH Vitamin D Total Free T4 T3 (GILSON) Urine Creatinine Urine Total Protein Acetaminophen 06/19/18 06/20/18 06/20/18 Unknown 07:31 16:51 WBC RBC Hgb Hct MCV MCH RDW Plt Count Lymph % (Auto) Carbon % (Auto) Lymph # Carbon # Seg Neutrophils % Seg Neuts % (Manual) Lymphocytes % (Manual) Monocytes % (Manual) Seg Neutrophils # Seg Neutrophils # Man Lymphocytes # (Manual) Monocytes # (Manual) POC ABG pH POC ABG pCO2 POC ABG pO2 Sodium 132 L D Potassium Chloride 94.3 L Carbon Dioxide BUN 20 H Creatinine Glucose POC Glucose Lactic Acid Uric Acid 8.6 H Calcium Magnesium 1.30 L Total Bilirubin Direct Bilirubin AST ALT Alkaline Phosphatase Ammonia CK-MB (CK-2) Rel Index C-Reactive Protein Total Protein Albumin Vitamin B1 Vitamin B12 25-OH Vitamin D Total Free T4 T3 (GILSON) 58 L Urine Creatinine 61.7 H Urine Total Protein 32 H Acetaminophen 06/20/18 06/20/18 06/21/18 20:53 20:53 16:27 WBC RBC Hgb Hct MCV MCH RDW Plt Count Lymph % (Auto) Carbon % (Auto) Lymph # Carbon # Seg Neutrophils % Seg Neuts % (Manual) Lymphocytes % (Manual) Monocytes % (Manual) Seg Neutrophils # Seg Neutrophils # Man Lymphocytes # (Manual) Monocytes # (Manual) POC ABG pH POC ABG pCO2 POC ABG pO2 Sodium Potassium Chloride Carbon Dioxide BUN Creatinine Glucose POC Glucose Lactic Acid Uric Acid 9.2 H Calcium Magnesium Total Bilirubin Direct Bilirubin AST ALT Alkaline Phosphatase Ammonia CK-MB (CK-2) Rel Index C-Reactive Protein Total Protein Albumin Vitamin B1 Vitamin B12 1598 H 25-OH Vitamin D Total 10 L Free T4 T3 (GILSON) Urine Creatinine Urine Total Protein Acetaminophen 06/21/18 06/21/18 06/21/18 16:27 16:27 16:27 WBC RBC 5.26 H Hgb Hct MCV 77 L MCH 26 L RDW 17.7 H Plt Count Lymph % (Auto) Carbon % (Auto) Lymph # Carbon # Seg Neutrophils % Seg Neuts % (Manual) Lymphocytes % (Manual) Monocytes % (Manual) Seg Neutrophils # Seg Neutrophils # Man Lymphocytes # (Manual) Monocytes # (Manual) POC ABG pH POC ABG pCO2 POC ABG pO2 Sodium 130 L Potassium Chloride 95.6 L Carbon Dioxide BUN 24 H Creatinine Glucose POC Glucose Lactic Acid Uric Acid Calcium Magnesium Total Bilirubin Direct Bilirubin AST ALT Alkaline Phosphatase Ammonia CK-MB (CK-2) Rel Index C-Reactive Protein Total Protein Albumin Vitamin B1 <6 L Vitamin B12 25-OH Vitamin D Total Free T4 T3 (GILSON) Urine Creatinine Urine Total Protein Acetaminophen 06/21/18 06/22/18 06/23/18 21:44 21:42 14:54 WBC RBC 5.07 H Hgb Hct MCV 78 L MCH 25 L RDW 18.5 H Plt Count Lymph % (Auto) Carbon % (Auto) 12.3 H Lymph # 1.0 L Carbon # Seg Neutrophils % Seg Neuts % (Manual) Lymphocytes % (Manual) Monocytes % (Manual) Seg Neutrophils # Seg Neutrophils # Man Lymphocytes # (Manual) Monocytes # (Manual) POC ABG pH POC ABG pCO2 POC ABG pO2 Sodium Potassium Chloride Carbon Dioxide BUN Creatinine Glucose POC Glucose 126 H 114 H Lactic Acid Uric Acid Calcium Magnesium Total Bilirubin Direct Bilirubin AST ALT Alkaline Phosphatase Ammonia CK-MB (CK-2) Rel Index C-Reactive Protein Total Protein Albumin Vitamin B1 Vitamin B12 25-OH Vitamin D Total Free T4 T3 (GILSON) Urine Creatinine Urine Total Protein Acetaminophen 06/23/18 06/25/18 06/25/18 14:54 00:00 00:00 WBC 3.6 L RBC 5.31 H Hgb Hct MCV 77 L MCH 26 L RDW 19.0 H Plt Count Lymph % (Auto) Carbon % (Auto) 10.2 H Lymph # Carbon # Seg Neutrophils % Seg Neuts % (Manual) Lymphocytes % (Manual) Monocytes % (Manual) Seg Neutrophils # Seg Neutrophils # Man Lymphocytes # (Manual) Monocytes # (Manual) POC ABG pH POC ABG pCO2 POC ABG pO2 Sodium 132 L 131 L Potassium 3.5 L Chloride 91.5 L 93.5 L Carbon Dioxide BUN 19 H 21 H Creatinine Glucose POC Glucose Lactic Acid Uric Acid Calcium 8.1 L Magnesium Total Bilirubin 2.80 H 2.70 H Direct Bilirubin AST 52 H 81 H ALT Alkaline Phosphatase 231 H 243 H Ammonia CK-MB (CK-2) Rel Index C-Reactive Protein Total Protein 5.5 L 5.5 L Albumin 2.8 L 2.7 L Vitamin B1 Vitamin B12 25-OH Vitamin D Total Free T4 T3 (GILSON) Urine Creatinine Urine Total Protein Acetaminophen 06/25/18 06/25/18 06/25/18 16:02 16:02 16:18 WBC 3.9 L RBC 5.78 H Hgb 14.6 H Hct 45.4 H MCV MCH 25 L RDW 19.2 H Plt Count Lymph % (Auto) Carbon % (Auto) Lymph # Carbon # Seg Neutrophils % Seg Neuts % (Manual) Lymphocytes % (Manual) Monocytes % (Manual) Seg Neutrophils # Seg Neutrophils # Man Lymphocytes # (Manual) 1.1 L Monocytes # (Manual) POC ABG pH POC ABG pCO2 POC ABG pO2 Sodium 131 L Potassium Chloride 90.0 L Carbon Dioxide BUN 25 H Creatinine 1.4 H Glucose POC Glucose Lactic Acid 4.00 H* Uric Acid Calcium Magnesium Total Bilirubin 3.10 H Direct Bilirubin AST 68 H ALT Alkaline Phosphatase 296 H Ammonia CK-MB (CK-2) Rel Index C-Reactive Protein Total Protein 6.1 L Albumin 3.3 L Vitamin B1 Vitamin B12 25-OH Vitamin D Total Free T4 T3 (GILSON) Urine Creatinine Urine Total Protein Acetaminophen 06/25/18 06/26/18 06/26/18 21:06 11:33 11:37 WBC RBC Hgb Hct MCV MCH 26 L RDW 19.2 H Plt Count 139 L Lymph % (Auto) Carbon % (Auto) Lymph # Carbon # Seg Neutrophils % Seg Neuts % (Manual) 85.0 H Lymphocytes % (Manual) 6.0 L Monocytes % (Manual) Seg Neutrophils # Seg Neutrophils # Man 8.0 H Lymphocytes # (Manual) 0.6 L Monocytes # (Manual) POC ABG pH POC ABG pCO2 POC ABG pO2 Sodium Potassium Chloride Carbon Dioxide BUN Creatinine Glucose POC Glucose < 40 L Lactic Acid 6.40 H* Uric Acid Calcium Magnesium Total Bilirubin Direct Bilirubin AST ALT Alkaline Phosphatase Ammonia CK-MB (CK-2) Rel Index C-Reactive Protein Total Protein Albumin Vitamin B1 Vitamin B12 25-OH Vitamin D Total Free T4 T3 (GILSON) Urine Creatinine Urine Total Protein Acetaminophen 06/26/18 06/26/18 06/26/18 11:37 11:51 11:59 WBC RBC Hgb Hct MCV MCH RDW Plt Count Lymph % (Auto) Carbon % (Auto) Lymph # Carbon # Seg Neutrophils % Seg Neuts % (Manual) Lymphocytes % (Manual) Monocytes % (Manual) Seg Neutrophils # Seg Neutrophils # Man Lymphocytes # (Manual) Monocytes # (Manual) POC ABG pH 7.029 L POC ABG pCO2 POC ABG pO2 73 L Sodium 129 L Potassium Chloride 87.0 L Carbon Dioxide 11 L D BUN 31 H Creatinine 1.9 H Glucose 206 H POC Glucose 253 H Lactic Acid Uric Acid Calcium 7.9 L Magnesium Total Bilirubin 2.90 H Direct Bilirubin AST 98 H ALT Alkaline Phosphatase 196 H Ammonia CK-MB (CK-2) Rel Index C-Reactive Protein Total Protein 4.3 L D Albumin 2.2 L Vitamin B1 Vitamin B12 25-OH Vitamin D Total Free T4 T3 (GILSON) Urine Creatinine Urine Total Protein Acetaminophen 06/26/18 06/26/18 06/26/18 14:54 15:08 15:10 WBC 14.2 H RBC 5.66 H Hgb 14.5 H Hct 45.6 H D MCV MCH 26 L RDW 19.4 H Plt Count Lymph % (Auto) Carbon % (Auto) Lymph # Carbon # Seg Neutrophils % Seg Neuts % (Manual) 88.0 H Lymphocytes % (Manual) 5.0 L Monocytes % (Manual) Seg Neutrophils # Seg Neutrophils # Man 12.5 H Lymphocytes # (Manual) 0.7 L Monocytes # (Manual) 0.9 H POC ABG pH POC ABG pCO2 POC ABG pO2 Sodium Potassium Chloride Carbon Dioxide BUN Creatinine Glucose POC Glucose 172 H Lactic Acid 11.90 H* Uric Acid Calcium Magnesium Total Bilirubin Direct Bilirubin AST ALT Alkaline Phosphatase Ammonia CK-MB (CK-2) Rel Index C-Reactive Protein Total Protein Albumin Vitamin B1 Vitamin B12 25-OH Vitamin D Total Free T4 T3 (GILSON) Urine Creatinine Urine Total Protein Acetaminophen 06/26/18 06/26/18 06/26/18 16:01 18:47 20:55 WBC RBC Hgb Hct MCV MCH RDW Plt Count Lymph % (Auto) Carbon % (Auto) Lymph # Carbon # Seg Neutrophils % Seg Neuts % (Manual) Lymphocytes % (Manual) Monocytes % (Manual) Seg Neutrophils # Seg Neutrophils # Man Lymphocytes # (Manual) Monocytes # (Manual) POC ABG pH POC ABG pCO2 34.0 L POC ABG pO2 Sodium Potassium Chloride Carbon Dioxide BUN Creatinine Glucose POC Glucose 183 H 131 H Lactic Acid Uric Acid Calcium Magnesium Total Bilirubin Direct Bilirubin AST ALT Alkaline Phosphatase Ammonia CK-MB (CK-2) Rel Index C-Reactive Protein Total Protein Albumin Vitamin B1 Vitamin B12 25-OH Vitamin D Total Free T4 T3 (GILSON) Urine Creatinine Urine Total Protein Acetaminophen 06/26/18 06/27/18 06/27/18 21:55 09:29 09:29 WBC RBC Hgb Hct MCV MCH RDW Plt Count Lymph % (Auto) Carbon % (Auto) Lymph # Carbon # Seg Neutrophils % Seg Neuts % (Manual) Lymphocytes % (Manual) Monocytes % (Manual) Seg Neutrophils # Seg Neutrophils # Man Lymphocytes # (Manual) Monocytes # (Manual) POC ABG pH POC ABG pCO2 POC ABG pO2 Sodium 135 L 135 L Potassium 3.5 L Chloride 91.7 L 91.2 L Carbon Dioxide BUN 35 H 37 H Creatinine 2.3 H 2.1 H Glucose 147 H 104 H POC Glucose Lactic Acid Uric Acid Calcium 8.3 L 8.1 L Magnesium Total Bilirubin 3.50 H Direct Bilirubin AST 218 H ALT 57 H Alkaline Phosphatase 197 H Ammonia CK-MB (CK-2) Rel Index C-Reactive Protein Total Protein 5.0 L Albumin 2.3 L Vitamin B1 Vitamin B12 25-OH Vitamin D Total Free T4 1.78 H T3 (GILSON) Urine Creatinine Urine Total Protein Acetaminophen 06/27/18 06/27/18 06/27/18 09:29 09:29 10:00 WBC 16.3 H RBC 5.44 H Hgb Hct MCV 76 L MCH 25 L RDW 18.3 H Plt Count Lymph % (Auto) Carbon % (Auto) Lymph # Carbon # Seg Neutrophils % Seg Neuts % (Manual) 91.0 H Lymphocytes % (Manual) 3.0 L Monocytes % (Manual) Seg Neutrophils # Seg Neutrophils # Man 14.8 H Lymphocytes # (Manual) 0.5 L Monocytes # (Manual) 1.0 H POC ABG pH POC ABG pCO2 POC ABG pO2 Sodium Potassium Chloride Carbon Dioxide BUN Creatinine Glucose POC Glucose 106 H Lactic Acid 4.00 H* Uric Acid Calcium Magnesium Total Bilirubin Direct Bilirubin AST ALT Alkaline Phosphatase Ammonia CK-MB (CK-2) Rel Index C-Reactive Protein Total Protein Albumin Vitamin B1 Vitamin B12 25-OH Vitamin D Total Free T4 T3 (GILSON) Urine Creatinine Urine Total Protein Acetaminophen 06/27/18 06/27/18 06/27/18 11:51 12:50 13:39 WBC RBC Hgb Hct MCV MCH RDW Plt Count Lymph % (Auto) Carbon % (Auto) Lymph # Carbon # Seg Neutrophils % Seg Neuts % (Manual) Lymphocytes % (Manual) Monocytes % (Manual) Seg Neutrophils # Seg Neutrophils # Man Lymphocytes # (Manual) Monocytes # (Manual) POC ABG pH 7.584 H POC ABG pCO2 32.8 L POC ABG pO2 109 H Sodium Potassium Chloride Carbon Dioxide BUN Creatinine Glucose POC Glucose 112 H Lactic Acid 3.20 H* Uric Acid Calcium Magnesium Total Bilirubin Direct Bilirubin AST ALT Alkaline Phosphatase Ammonia CK-MB (CK-2) Rel Index C-Reactive Protein Total Protein Albumin Vitamin B1 Vitamin B12 25-OH Vitamin D Total Free T4 T3 (GILSON) Urine Creatinine Urine Total Protein Acetaminophen 06/27/18 06/27/18 06/27/18 19:31 21:50 23:10 WBC RBC Hgb Hct MCV MCH RDW Plt Count Lymph % (Auto) Carbon % (Auto) Lymph # Carbon # Seg Neutrophils % Seg Neuts % (Manual) Lymphocytes % (Manual) Monocytes % (Manual) Seg Neutrophils # Seg Neutrophils # Man Lymphocytes # (Manual) Monocytes # (Manual) POC ABG pH POC ABG pCO2 POC ABG pO2 Sodium Potassium Chloride Carbon Dioxide BUN Creatinine Glucose POC Glucose Lactic Acid 2.40 H* 2.30 H* 2.30 H* Uric Acid Calcium Magnesium Total Bilirubin Direct Bilirubin AST ALT Alkaline Phosphatase Ammonia CK-MB (CK-2) Rel Index C-Reactive Protein Total Protein Albumin Vitamin B1 Vitamin B12 25-OH Vitamin D Total Free T4 T3 (GILSON) Urine Creatinine Urine Total Protein Acetaminophen 06/28/18 06/28/18 06/28/18 02:35 05:00 05:00 WBC RBC Hgb Hct MCV MCH RDW Plt Count Lymph % (Auto) Carbon % (Auto) Lymph # Carbon # Seg Neutrophils % Seg Neuts % (Manual) Lymphocytes % (Manual) Monocytes % (Manual) Seg Neutrophils # Seg Neutrophils # Man Lymphocytes # (Manual) Monocytes # (Manual) POC ABG pH POC ABG pCO2 POC ABG pO2 Sodium 134 L Potassium 2.6 L* D Chloride 92.3 L Carbon Dioxide 32 H BUN 34 H Creatinine 1.8 H Glucose 127 H POC Glucose Lactic Acid 2.20 H* 2.30 H* Uric Acid Calcium 7.5 L Magnesium Total Bilirubin 3.50 H Direct Bilirubin AST 226 H ALT 60 H Alkaline Phosphatase 172 H Ammonia CK-MB (CK-2) Rel Index C-Reactive Protein Total Protein 4.2 L Albumin 2.0 L Vitamin B1 Vitamin B12 25-OH Vitamin D Total Free T4 T3 (GILSON) Urine Creatinine Urine Total Protein Acetaminophen 06/28/18 06/28/18 06/28/18 05:00 08:30 08:30 WBC 15.7 H RBC Hgb Hct MCV 77 L MCH 25 L RDW 18.5 H Plt Count 112 L Lymph % (Auto) 6.0 L Carbon % (Auto) 10.0 H Lymph # 0.9 L Carbon # 1.6 H Seg Neutrophils % 83.4 H Seg Neuts % (Manual) Lymphocytes % (Manual) Monocytes % (Manual) Seg Neutrophils # 13.1 H Seg Neutrophils # Man Lymphocytes # (Manual) Monocytes # (Manual) POC ABG pH POC ABG pCO2 POC ABG pO2 Sodium Potassium Chloride Carbon Dioxide BUN Creatinine Glucose POC Glucose Lactic Acid 2.40 H* Uric Acid Calcium Magnesium Total Bilirubin Direct Bilirubin AST ALT Alkaline Phosphatase Ammonia CK-MB (CK-2) Rel Index C-Reactive Protein 4.80 H Total Protein Albumin Vitamin B1 Vitamin B12 25-OH Vitamin D Total Free T4 T3 (GILSON) Urine Creatinine Urine Total Protein Acetaminophen 06/28/18 06/28/18 06/28/18 10:53 11:23 18:35 WBC RBC Hgb Hct MCV MCH RDW Plt Count Lymph % (Auto) Carbon % (Auto) Lymph # Carbon # Seg Neutrophils % Seg Neuts % (Manual) Lymphocytes % (Manual) Monocytes % (Manual) Seg Neutrophils # Seg Neutrophils # Man Lymphocytes # (Manual) Monocytes # (Manual) POC ABG pH 7.552 H POC ABG pCO2 POC ABG pO2 Sodium Potassium 3.1 L Chloride Carbon Dioxide BUN Creatinine Glucose POC Glucose 122 H Lactic Acid Uric Acid Calcium Magnesium Total Bilirubin Direct Bilirubin AST ALT Alkaline Phosphatase Ammonia CK-MB (CK-2) Rel Index C-Reactive Protein Total Protein Albumin Vitamin B1 Vitamin B12 25-OH Vitamin D Total Free T4 T3 (GILSON) Urine Creatinine Urine Total Protein Acetaminophen 06/29/18 06/29/18 06/29/18 06:40 06:40 19:44 WBC 14.6 H RBC Hgb Hct MCV 77 L MCH 25 L RDW 19.3 H Plt Count 88 L Lymph % (Auto) Carbon % (Auto) Lymph # Carbon # Seg Neutrophils % Seg Neuts % (Manual) Lymphocytes % (Manual) Monocytes % (Manual) Seg Neutrophils # Seg Neutrophils # Man Lymphocytes # (Manual) Monocytes # (Manual) POC ABG pH POC ABG pCO2 POC ABG pO2 Sodium Potassium 2.7 L* Chloride 95.3 L Carbon Dioxide 32 H BUN 25 H Creatinine Glucose 145 H POC Glucose 59 L Lactic Acid Uric Acid Calcium 7.9 L Magnesium Total Bilirubin 3.60 H Direct Bilirubin AST 213 H ALT Alkaline Phosphatase 176 H Ammonia CK-MB (CK-2) Rel Index C-Reactive Protein Total Protein 4.8 L Albumin 2.2 L Vitamin B1 Vitamin B12 25-OH Vitamin D Total Free T4 T3 (GILSON) Urine Creatinine Urine Total Protein Acetaminophen 06/29/18 06/30/18 06/30/18 20:43 02:37 04:45 WBC RBC Hgb Hct MCV MCH RDW Plt Count Lymph % (Auto) Carbon % (Auto) Lymph # Carbon # Seg Neutrophils % Seg Neuts % (Manual) Lymphocytes % (Manual) Monocytes % (Manual) Seg Neutrophils # Seg Neutrophils # Man Lymphocytes # (Manual) Monocytes # (Manual) POC ABG pH POC ABG pCO2 POC ABG pO2 Sodium Potassium 3.1 L 2.8 L* Chloride Carbon Dioxide 31 H BUN 18 H Creatinine Glucose POC Glucose 59 L Lactic Acid Uric Acid Calcium 8.0 L Magnesium Total Bilirubin 3.70 H Direct Bilirubin AST 216 H ALT 63 H Alkaline Phosphatase 163 H Ammonia CK-MB (CK-2) Rel Index C-Reactive Protein Total Protein 4.5 L Albumin 2.1 L Vitamin B1 Vitamin B12 25-OH Vitamin D Total Free T4 T3 (GILSON) Urine Creatinine Urine Total Protein Acetaminophen 06/30/18 06/30/18 07/01/18 04:45 06:24 04:39 WBC 12.1 H RBC Hgb Hct MCV 78 L 77 L MCH 25 L 25 L RDW 19.0 H 19.3 H Plt Count 91 L 77 L Lymph % (Auto) Carbon % (Auto) Lymph # Carbon # Seg Neutrophils % Seg Neuts % (Manual) Lymphocytes % (Manual) Monocytes % (Manual) Seg Neutrophils # Seg Neutrophils # Man Lymphocytes # (Manual) Monocytes # (Manual) POC ABG pH POC ABG pCO2 POC ABG pO2 Sodium Potassium Chloride Carbon Dioxide BUN Creatinine Glucose POC Glucose 63 L Lactic Acid Uric Acid Calcium Magnesium Total Bilirubin Direct Bilirubin AST ALT Alkaline Phosphatase Ammonia CK-MB (CK-2) Rel Index C-Reactive Protein Total Protein Albumin Vitamin B1 Vitamin B12 25-OH Vitamin D Total Free T4 T3 (GILSON) Urine Creatinine Urine Total Protein Acetaminophen 07/01/18 07/01/18 07/02/18 04:39 11:12 05:23 WBC RBC Hgb Hct MCV 77 L MCH 25 L RDW 19.2 H Plt Count 78 L Lymph % (Auto) Carbon % (Auto) Lymph # Carbon # Seg Neutrophils % Seg Neuts % (Manual) Lymphocytes % (Manual) Monocytes % (Manual) Seg Neutrophils # Seg Neutrophils # Man Lymphocytes # (Manual) Monocytes # (Manual) POC ABG pH POC ABG pCO2 POC ABG pO2 Sodium Potassium 3.5 L D Chloride Carbon Dioxide BUN Creatinine Glucose 109 H POC Glucose 206 H Lactic Acid Uric Acid Calcium 8.1 L Magnesium Total Bilirubin 3.90 H Direct Bilirubin AST 163 H ALT 60 H Alkaline Phosphatase 166 H Ammonia CK-MB (CK-2) Rel Index C-Reactive Protein Total Protein 4.5 L Albumin 2.0 L Vitamin B1 Vitamin B12 25-OH Vitamin D Total Free T4 T3 (GILSON) Urine Creatinine Urine Total Protein Acetaminophen 07/02/18 07/02/18 07/03/18 05:23 12:18 08:14 WBC RBC Hgb Hct MCV 76 L MCH 25 L RDW 19.0 H Plt Count 84 L Lymph % (Auto) Carbon % (Auto) Lymph # Carbon # Seg Neutrophils % Seg Neuts % (Manual) Lymphocytes % (Manual) Monocytes % (Manual) Seg Neutrophils # Seg Neutrophils # Man Lymphocytes # (Manual) Monocytes # (Manual) POC ABG pH POC ABG pCO2 POC ABG pO2 Sodium 135 L Potassium 3.4 L Chloride Carbon Dioxide BUN Creatinine 0.6 L Glucose POC Glucose 144 H Lactic Acid Uric Acid Calcium 8.3 L Magnesium Total Bilirubin Direct Bilirubin AST ALT Alkaline Phosphatase Ammonia CK-MB (CK-2) Rel Index C-Reactive Protein Total Protein Albumin Vitamin B1 Vitamin B12 25-OH Vitamin D Total Free T4 T3 (GILSON) Urine Creatinine Urine Total Protein Acetaminophen 07/03/18 07/03/18 07/04/18 08:14 16:33 05:36 WBC RBC Hgb Hct MCV 77 L MCH 25 L RDW 18.5 H Plt Count 103 L Lymph % (Auto) Carbon % (Auto) Lymph # Carbon # Seg Neutrophils % Seg Neuts % (Manual) Lymphocytes % (Manual) Monocytes % (Manual) Seg Neutrophils # Seg Neutrophils # Man Lymphocytes # (Manual) Monocytes # (Manual) POC ABG pH POC ABG pCO2 POC ABG pO2 Sodium 135 L Potassium Chloride 97.7 L Carbon Dioxide BUN Creatinine 0.5 L Glucose POC Glucose 69 L Lactic Acid Uric Acid Calcium 8.2 L Magnesium 1.50 L Total Bilirubin Direct Bilirubin AST ALT Alkaline Phosphatase Ammonia CK-MB (CK-2) Rel Index C-Reactive Protein Total Protein Albumin Vitamin B1 Vitamin B12 25-OH Vitamin D Total Free T4 T3 (GILSON) Urine Creatinine Urine Total Protein Acetaminophen 07/04/18 07/04/18 07/04/18 05:36 08:54 11:47 WBC RBC Hgb Hct MCV MCH RDW Plt Count Lymph % (Auto) Carbon % (Auto) Lymph # Carbon # Seg Neutrophils % Seg Neuts % (Manual) Lymphocytes % (Manual) Monocytes % (Manual) Seg Neutrophils # Seg Neutrophils # Man Lymphocytes # (Manual) Monocytes # (Manual) POC ABG pH POC ABG pCO2 POC ABG pO2 Sodium 135 L Potassium Chloride Carbon Dioxide BUN Creatinine 0.5 L Glucose POC Glucose 61 L 122 H Lactic Acid Uric Acid Calcium 8.2 L Magnesium Total Bilirubin Direct Bilirubin AST ALT Alkaline Phosphatase Ammonia CK-MB (CK-2) Rel Index C-Reactive Protein Total Protein Albumin Vitamin B1 Vitamin B12 25-OH Vitamin D Total Free T4 T3 (GILSON) Urine Creatinine Urine Total Protein Acetaminophen 07/04/18 07/05/18 07/06/18 16:44 21:15 11:50 WBC RBC Hgb Hct MCV MCH RDW Plt Count Lymph % (Auto) Carbon % (Auto) Lymph # Carbon # Seg Neutrophils % Seg Neuts % (Manual) Lymphocytes % (Manual) Monocytes % (Manual) Seg Neutrophils # Seg Neutrophils # Man Lymphocytes # (Manual) Monocytes # (Manual) POC ABG pH POC ABG pCO2 POC ABG pO2 Sodium Potassium Chloride Carbon Dioxide BUN Creatinine Glucose POC Glucose 124 H 150 H 67 L Lactic Acid Uric Acid Calcium Magnesium Total Bilirubin Direct Bilirubin AST ALT Alkaline Phosphatase Ammonia CK-MB (CK-2) Rel Index C-Reactive Protein Total Protein Albumin Vitamin B1 Vitamin B12 25-OH Vitamin D Total Free T4 T3 (GILSON) Urine Creatinine Urine Total Protein Acetaminophen 07/06/18 07/06/18 07/06/18 13:32 16:27 21:13 WBC RBC Hgb Hct MCV MCH RDW Plt Count Lymph % (Auto) Carbon % (Auto) Lymph # Carbon # Seg Neutrophils % Seg Neuts % (Manual) Lymphocytes % (Manual) Monocytes % (Manual) Seg Neutrophils # Seg Neutrophils # Man Lymphocytes # (Manual) Monocytes # (Manual) POC ABG pH POC ABG pCO2 POC ABG pO2 Sodium Potassium Chloride Carbon Dioxide BUN Creatinine Glucose POC Glucose 146 H 125 H 69 L Lactic Acid Uric Acid Calcium Magnesium Total Bilirubin Direct Bilirubin AST ALT Alkaline Phosphatase Ammonia CK-MB (CK-2) Rel Index C-Reactive Protein Total Protein Albumin Vitamin B1 Vitamin B12 25-OH Vitamin D Total Free T4 T3 (GILSON) Urine Creatinine Urine Total Protein Acetaminophen 07/07/18 07/08/18 07/08/18 12:18 04:55 04:55 WBC RBC Hgb Hct MCV 78 L MCH 25 L RDW 18.2 H Plt Count Lymph % (Auto) Carbon % (Auto) 14.8 H Lymph # Carbon # 1.3 H Seg Neutrophils % Seg Neuts % (Manual) Lymphocytes % (Manual) Monocytes % (Manual) Seg Neutrophils # Seg Neutrophils # Man Lymphocytes # (Manual) Monocytes # (Manual) POC ABG pH POC ABG pCO2 POC ABG pO2 Sodium 136 L Potassium Chloride Carbon Dioxide BUN Creatinine 0.5 L Glucose 110 H POC Glucose 132 H Lactic Acid Uric Acid Calcium 8.0 L Magnesium Total Bilirubin Direct Bilirubin AST ALT Alkaline Phosphatase Ammonia CK-MB (CK-2) Rel Index C-Reactive Protein Total Protein Albumin Vitamin B1 Vitamin B12 25-OH Vitamin D Total Free T4 T3 (GILSON) Urine Creatinine Urine Total Protein Acetaminophen 07/08/18 07/08/18 07/08/18 14:27 17:11 21:20 WBC RBC Hgb Hct MCV MCH RDW Plt Count Lymph % (Auto) Carbon % (Auto) Lymph # Carbon # Seg Neutrophils % Seg Neuts % (Manual) Lymphocytes % (Manual) Monocytes % (Manual) Seg Neutrophils # Seg Neutrophils # Man Lymphocytes # (Manual) Monocytes # (Manual) POC ABG pH POC ABG pCO2 POC ABG pO2 Sodium Potassium Chloride Carbon Dioxide BUN Creatinine Glucose POC Glucose 133 H 113 H 126 H Lactic Acid Uric Acid Calcium Magnesium Total Bilirubin Direct Bilirubin AST ALT Alkaline Phosphatase Ammonia CK-MB (CK-2) Rel Index C-Reactive Protein Total Protein Albumin Vitamin B1 Vitamin B12 25-OH Vitamin D Total Free T4 T3 (GILSON) Urine Creatinine Urine Total Protein Acetaminophen 07/09/18 07/10/18 07/10/18 17:03 08:36 20:51 WBC RBC Hgb Hct MCV MCH RDW Plt Count Lymph % (Auto) Carbon % (Auto) Lymph # Carbon # Seg Neutrophils % Seg Neuts % (Manual) Lymphocytes % (Manual) Monocytes % (Manual) Seg Neutrophils # Seg Neutrophils # Man Lymphocytes # (Manual) Monocytes # (Manual) POC ABG pH POC ABG pCO2 POC ABG pO2 Sodium Potassium Chloride Carbon Dioxide BUN Creatinine Glucose POC Glucose 116 H 128 H 159 H Lactic Acid Uric Acid Calcium Magnesium Total Bilirubin Direct Bilirubin AST ALT Alkaline Phosphatase Ammonia CK-MB (CK-2) Rel Index C-Reactive Protein Total Protein Albumin Vitamin B1 Vitamin B12 25-OH Vitamin D Total Free T4 T3 (GILSON) Urine Creatinine Urine Total Protein Acetaminophen 07/11/18 07/11/18 07/11/18 03:22 03:22 12:07 WBC RBC Hgb Hct MCV 78 L MCH 26 L RDW 17.4 H Plt Count Lymph % (Auto) Carbon % (Auto) Lymph # Carbon # Seg Neutrophils % Seg Neuts % (Manual) Lymphocytes % (Manual) Monocytes % (Manual) 13.0 H Seg Neutrophils # Seg Neutrophils # Man Lymphocytes # (Manual) Monocytes # (Manual) POC ABG pH POC ABG pCO2 POC ABG pO2 Sodium 135 L Potassium Chloride Carbon Dioxide BUN Creatinine 0.6 L Glucose 101 H POC Glucose 345 H Lactic Acid Uric Acid Calcium 8.0 L Magnesium Total Bilirubin 1.50 H Direct Bilirubin AST 63 H ALT Alkaline Phosphatase 350 H Ammonia CK-MB (CK-2) Rel Index C-Reactive Protein Total Protein 5.5 L Albumin 2.0 L Vitamin B1 Vitamin B12 25-OH Vitamin D Total Free T4 T3 (GILSON) Urine Creatinine Urine Total Protein Acetaminophen 07/12/18 07/12/18 07/12/18 07:14 12:05 12:25 WBC RBC Hgb Hct MCV MCH RDW Plt Count Lymph % (Auto) Carbon % (Auto) Lymph # Carbon # Seg Neutrophils % Seg Neuts % (Manual) Lymphocytes % (Manual) Monocytes % (Manual) Seg Neutrophils # Seg Neutrophils # Man Lymphocytes # (Manual) Monocytes # (Manual) POC ABG pH POC ABG pCO2 POC ABG pO2 Sodium Potassium Chloride Carbon Dioxide BUN Creatinine Glucose POC Glucose 65 L 168 H Lactic Acid Uric Acid Calcium Magnesium Total Bilirubin Direct Bilirubin AST ALT Alkaline Phosphatase Ammonia CK-MB (CK-2) Rel Index 6.0 H C-Reactive Protein Total Protein Albumin Vitamin B1 Vitamin B12 25-OH Vitamin D Total Free T4 T3 (GILSON) Urine Creatinine Urine Total Protein Acetaminophen 07/12/18 16:21 WBC RBC Hgb Hct MCV MCH RDW Plt Count Lymph % (Auto) Carbon % (Auto) Lymph # Carbon # Seg Neutrophils % Seg Neuts % (Manual) Lymphocytes % (Manual) Monocytes % (Manual) Seg Neutrophils # Seg Neutrophils # Man Lymphocytes # (Manual) Monocytes # (Manual) POC ABG pH POC ABG pCO2 POC ABG pO2 Sodium Potassium Chloride Carbon Dioxide BUN Creatinine Glucose POC Glucose 109 H Lactic Acid Uric Acid Calcium Magnesium Total Bilirubin Direct Bilirubin AST ALT Alkaline Phosphatase Ammonia CK-MB (CK-2) Rel Index C-Reactive Protein Total Protein Albumin Vitamin B1 Vitamin B12 25-OH Vitamin D Total Free T4 T3 (GILSON) Urine Creatinine Urine Total Protein Acetaminophen Chest x-ray: report reviewed (Mild volume Over load. Significant improvement compare to previous chest xray.), image reviewed Allied health notes reviewed: nursing
[2018-07-13] MEDS: LOPRESSOR PO SCH ×3 (00:49→16:24)
[2018-07-13 01:40] LABS: Creatine Kinase MB 2.6 ng/mL (0.0-4.0)
[2018-07-13] MEDS: LASIX PO SCH ×2 (06:37→17:15)
[2018-07-13] MEDS: DUONEB *Not for PRN Use IH SCH ×3 (08:24→20:36)
--- NOTE | 2018-07-13 08:48 | Progress Note ---
Assessment and Plan S/P Cardiac arrest thought secondary to Haldol treatment s/p cardioversion Hypokalemia -resolved Respiratory failure -extubated Chronic systolic heart failure Atrial fibrillation/flutter on metoprolol, digoxin and eliquis therapy Severe depression Altered mental status -improved Non-ischemic cardiomyopathy Lactic acidosis Hyponatremia Elevated bilirubin and alk phosphatase - chronic secondary to congestive hepatopathy Non-compliance with medical therapy and outpatient cardiac follow up. Echo 04/2018 at [facility] showed: a 4 chamber dilated cardiomyopathy, LVEF severely decreased, 20-25%. Moderate mitral regurgitation. Severe TR. RVSP is severely elevated. Medical therapy for chronic systolic left ventricular dysfunction as tolerated. We will continue a conservative cardiac management. Subjective Date of service: 07/13/18 Principal diagnosis: altered mental status, psychosis, chronic systolic heart failure, Interval history: Patient is resting in bed comfortably. She denies chest pain and shortness of breath. Awaits placement. Objective Vital Signs Temp Pulse Pulse Pulse Resp Resp Resp 07/13/18 08:13 20 07/13/18 07:23 97.3 F L 89 18 07/13/18 00:49 91 H 07/13/18 00:44 97.8 F 89 20 07/12/18 23:43 87 07/12/18 22:00 20 07/12/18 21:11 07/12/18 20:00 98 H 07/12/18 19:52 07/12/18 19:33 97.3 F L 20 07/12/18 17:58 80 07/12/18 14:38 98 H 18 07/12/18 14:29 99 H 22 07/12/18 13:03 97.8 F 84 20 07/12/18 12:32 87 07/12/18 12:19 22 07/12/18 10:27 104 H 104 H 20 20 07/12/18 10:15 94 H 94 H 22 22 07/12/18 10:00 Resp BP BP Pulse Ox 07/13/18 08:13 07/13/18 07:23 122/57 100 07/13/18 00:49 120/73 07/13/18 00:44 120/73 100 07/12/18 23:43 07/12/18 22:00 20 07/12/18 21:11 100 07/12/18 20:00 125/42 07/12/18 19:52 108/41 07/12/18 19:33 108/41 07/12/18 17:58 07/12/18 14:38 07/12/18 14:29 07/12/18 13:03 144/84 100 07/12/18 12:32 144/80 07/12/18 12:19 144/80 07/12/18 10:27 07/12/18 10:15 07/12/18 10:00 96 - Physical Examination General: No Apparent Distress HEENT: Positive: PERRL Neck: Positive: trachea midline Cardiac: Positive: irregularly irregular Lungs: Positive: Decreased Breath Sounds Neuro: Positive: Grossly Intact Extremities: Absent: edema - Labs and Meds Cardiac Enzymes 07/12/18 07/12/18 07/13/18 Range/Units 12:25 18:12 00:28 CK-MB (CK-2) 3.0 3.0 2.6 (0.0-4.0) ng/mL - Allied health notes Allied health notes reviewed: nursing
[2018-07-13] MEDS: HumaLOG SUB-Q SCH ×3 (08:52→17:04)
[2018-07-13] MEDS: ZOLOFT PO SCH (09:11)
[2018-07-13] MEDS: PEPCID PO SCH (09:12)
[2018-07-13] MEDS: ZESTRIL PO SCH (09:12)
[2018-07-13] MEDS: ELIQUIS PO SCH ×2 (09:12→22:25)
--- NOTE | 2018-07-13 11:11 | Progress Note ---
Assessment and Plan Assessment and plan: Chest pain resolved today Troponins neg, EKG Serial cardiac enzymes Nitrosublingual prn Acute Respiratory failure following Cardiac Arrest - ? PEA from hypoglycemia or Haldol administration- now off the ventilator and on nasal canula Patient stable s/p Cardiac arrest after Haldol: listed Haldol as an Allergy/Adverse drug. Severe NICM also contributed to the evant Patient stable Severe NICM, ionotrope dependent : - Cardiology recommends Hospice, dobutamine now off by Cardiology - family not in agreement for code status, hospice now pending Patient stable Acute on Chronic systolic CHF of EF 20-25%, - patient has been on hospice before, it appears she was discharged from home hospice. - cont current meds, daily ins/os/daily wt Medications optimized Permanent Atrial fib/flutter: Eliquis resumed Altered mental status, with acute encephalopathy - suspected Dementia with psychotic features: Psych following - Continue home medication Zoloft 50 mg PO daily for now Psychosis improved and her encephalopathy improved Hypoglycemia-, resolved Hyponatremia, due to diuresis and CHF: Nephrology following Improved Elevated LFT, Likely congestive hepatopathy due to end stage NICMP, closely monitor Severe protein calorie malnutrition: Corporate Responsibility Officer consulted SIRS- ?underlying PNA doubt based on xray review and lack of fever or leukocytoisis: check blood culture- NO GROWTH. Antibiotics discontinued Improved Persistently elevated Lactic acidosis:-Likely secondary to hypoperfusion- Improved Hypokalemia: Resolved -DVT prophylaxis: Patient is on Eliquis Waiting for NH placement/Hospice History Interval history: Chest pain yesterday, resolved No SOB currently Hospitalist Physical - Physical exam Narrative exam: GEN: Not in acute distress, lying in bed, obese HEENT: Normocephalic, atraumatic, Neck: supple, No JVD heart: S1 and S2 reg, no murmurs, rubs or gallop Lungs: Clear to auscultation bilat, no crackles, no wheeze Abd:soft, non tender, non distended, normal bowel sounds Ext: No edema, no clubbing, no cyanosis Neuro:Awake,alert, moves all ext. - Constitutional Vitals: Temp Pulse Resp BP Pulse Ox 97.3 F L 88 20 122/57 100 07/13/18 07:23 07/13/18 07:30 07/13/18 08:13 07/13/18 09:14 07/13/18 09:51 General appearance: Present: no acute distress, well-nourished Results - Labs CBC & Chem 7: 07/11/18 03:22 07/11/18 03:22 Labs: Laboratory Last Values WBC 5.3 K/mm3 (4.5-11.0) 07/11/18 03:22 RBC 4.54 M/mm3 (3.65-5.03) 07/11/18 03:22 Hgb 11.7 gm/dl (10.1-14.3) 07/11/18 03:22 Hct 35.3 % (30.3-42.9) 07/11/18 03:22 MCV 78 fl (79-97) L 07/11/18 03:22 MCH 26 pg (28-32) L 07/11/18 03:22 MCHC 33 % (30-34) 07/11/18 03:22 RDW 17.4 % (13.2-15.2) H 07/11/18 03:22 Plt Count 324 K/mm3 (140-440) 07/11/18 03:22 Lymph % (Auto) 20.7 % (13.4-35.0) 07/08/18 04:55 Orange % (Auto) Agricultural Economist 07/11/18 03:22 Eos % (Auto) 1.3 % (0.0-4.3) 07/08/18 04:55 Baso % (Auto) 0.6 % (0.0-1.8) 07/08/18 04:55 Lymph # 1.8 K/mm3 (1.2-5.4) 07/08/18 04:55 Orange # 1.3 K/mm3 (0.0-0.8) H 07/08/18 04:55 Eos # 0.1 K/mm3 (0.0-0.4) 07/08/18 04:55 Baso # 0.1 K/mm3 (0.0-0.1) 07/08/18 04:55 Add Manual Diff Complete 07/11/18 03:22 Total Counted 100 07/11/18 03:22 Seg Neutrophils % 62.6 % (40.0-70.0) 07/08/18 04:55 Seg Neuts % (Manual) 51.0 % (40.0-70.0) 07/11/18 03:22 Band Neutrophils % 0 % 07/11/18 03:22 Lymphocytes % (Manual) 34.0 % (13.4-35.0) 07/11/18 03:22 Reactive Lymphs % (Man) 2.0 % 07/11/18 03:22 Monocytes % (Manual) 13.0 % (0.0-7.3) H 07/11/18 03:22 Eosinophils % (Manual) 0 % (0.0-4.3) 07/11/18 03:22 Basophils % (Manual) 0 % (0.0-1.8) 07/11/18 03:22 Metamyelocytes % 0 % 07/11/18 03:22 Myelocytes % 0 % 07/11/18 03:22 Promyelocytes % 0 % 07/11/18 03:22 Blast Cells % 0 % 07/11/18 03:22 Nucleated RBC % Not Reportable 07/11/18 03:22 Seg Neutrophils # 5.3 K/mm3 (1.8-7.7) 07/08/18 04:55 Seg Neutrophils # Man 2.7 K/mm3 (1.8-7.7) 07/11/18 03:22 Band Neutrophils # 0.0 K/mm3 07/11/18 03:22 Lymphocytes # (Manual) 1.8 K/mm3 (1.2-5.4) 07/11/18 03:22 Abs React Lymphs (Man) 0.1 K/mm3 07/11/18 03:22 Monocytes # (Manual) 0.7 K/mm3 (0.0-0.8) 07/11/18 03:22 Eosinophils # (Manual) 0.0 K/mm3 (0.0-0.4) 07/11/18 03:22 Basophils # (Manual) 0.0 K/mm3 (0.0-0.1) 07/11/18 03:22 Metamyelocytes # 0.0 K/mm3 07/11/18 03:22 Myelocytes # 0.0 K/mm3 07/11/18 03:22 Promyelocytes # 0.0 K/mm3 07/11/18 03:22 Blast Cells # 0.0 K/mm3 07/11/18 03:22 WBC Morphology Not Reportable 07/11/18 03:22 Hypersegmented Neuts Not Reportable 07/11/18 03:22 Hyposegmented Neuts Not Reportable 07/11/18 03:22 Hypogranular Neuts Not Reportable 07/11/18 03:22 Smudge Cells Not Reportable 07/11/18 03:22 Toxic Granulation Not Reportable 07/11/18 03:22 Toxic Vacuolation Not Reportable 07/11/18 03:22 Dohle Bodies Not Reportable 07/11/18 03:22 Pelger-Huet Anomaly Not Reportable 07/11/18 03:22 Sushma Rods Not Reportable 07/11/18 03:22 Platelet Estimate Consistent w auto 07/11/18 03:22 Clumped Platelets Not Reportable 07/11/18 03:22 Plt Clumps, EDTA Not Reportable 07/11/18 03:22 Large Platelets Not Reportable 07/11/18 03:22 Giant Platelets Not Reportable 07/11/18 03:22 Platelet Satelliting Not Reportable 07/11/18 03:22 Plt Morphology Comment Not Reportable 07/11/18 03:22 RBC Morphology Not Reportable 07/11/18 03:22 Dimorphic RBCs Not Reportable 07/11/18 03:22 Polychromasia Not Reportable 07/11/18 03:22 Hypochromasia 2+ 07/11/18 03:22 Poikilocytosis 2+ 07/11/18 03:22 Anisocytosis 1+ 07/11/18 03:22 Microcytosis Not Reportable 07/11/18 03:22 Macrocytosis Not Reportable 07/11/18 03:22 Spherocytes Not Reportable 07/11/18 03:22 Pappenheimer Bodies Not Reportable 07/11/18 03:22 Sickle Cells Not Reportable 07/11/18 03:22 Target Cells 1+ 07/11/18 03:22 Tear Drop Cells Few 07/11/18 03:22 Ovalocytes Few 07/11/18 03:22 Helmet Cells Not Reportable 07/11/18 03:22 [place] Bodies Not Reportable 07/11/18 03:22 Buda Rings Not Reportable 07/11/18 03:22 [place] Cells Not Reportable 07/11/18 03:22 Bite Cells Not Reportable 07/11/18 03:22 Crenated Cell Not Reportable 07/11/18 03:22 Elliptocytes Few 07/11/18 03:22 Acanthocytes (Spur) Not Reportable 07/11/18 03:22 Rouleaux Not Reportable 07/11/18 03:22 Hemoglobin C Crystals Not Reportable 07/11/18 03:22 Schistocytes Not Reportable 07/11/18 03:22 Malaria parasites Not Reportable 07/11/18 03:22 Saqib Bodies Not Reportable 07/11/18 03:22 Hem Pathologist Commnt No 07/11/18 03:22 POC ABG pH 7.552 (7.35-7.45) H 06/28/18 10:53 POC ABG pCO2 40.8 (35-45) 06/28/18 10:53 POC ABG pO2 83 (80-105) 06/28/18 10:53 POC ABG HCO3 35.9 (22-26 mml/L) 06/28/18 10:53 POC ABG Total CO2 37 (23-27mmol/L) 06/28/18 10:53 POC ABG O2 Sat 97 06/28/18 10:53 POC ABG Base Excess 14 ((-2) - (+3)mmol/L) 06/28/18 10:53 FiO2 30 % 06/28/18 10:53 Sodium 135 mmol/L (137-145) L 07/11/18 03:22 Potassium 3.9 mmol/L (3.6-5.0) 07/11/18 03:22 Chloride 99.7 mmol/L (98-107) 07/11/18 03:22 Carbon Dioxide 24 mmol/L (22-30) 07/11/18 03:22 Anion Gap 15 mmol/L 07/11/18 03:22 BUN 10 mg/dL (7-17) 07/11/18 03:22 Creatinine 0.6 mg/dL (0.7-1.2) L 07/11/18 03:22 Estimated GFR > 60 ml/min 07/11/18 03:22 BUN/Creatinine Ratio 17 % 07/11/18 03:22 Glucose 101 mg/dL (65-100) H 07/11/18 03:22 POC Glucose 106 (70-105) H 07/13/18 07:25 Hemoglobin A1c 5.5 % (4-6) 06/17/18 15:08 Osmolality 276 Mosm/kg 06/20/18 07:31 Lactic Acid 1.30 mmol/L (0.7-2.0) 07/02/18 23:33 Uric Acid 9.2 mg/dL (3.5-7.6) H 06/21/18 16:27 Calcium 8.0 mg/dL (8.4-10.2) L 07/11/18 03:22 Phosphorus 2.50 mg/dL (2.5-4.5) 06/20/18 07:31 Magnesium 1.50 mg/dL (1.7-2.3) L 07/03/18 08:14 Total Bilirubin 1.50 mg/dL (0.1-1.2) H 07/11/18 03:22 Direct Bilirubin 1.6 mg/dL (0-0.2) H 06/17/18 11:00 Indirect Bilirubin -1.4 mg/dL 06/17/18 11:00 AST 63 units/L (5-40) H 07/11/18 03:22 ALT 53 units/L (7-56) 07/11/18 03:22 Alkaline Phosphatase 350 units/L (35-129) H 07/11/18 03:22 Ammonia 38.0 umol/L (25-60) 06/25/18 16:02 Total Creatine Kinase 43 units/L (30-135) 07/13/18 00:28 CK-MB (CK-2) 2.6 ng/mL (0.0-4.0) 07/13/18 00:28 CK-MB (CK-2) Rel Index 6.0 (0-4) H 07/13/18 00:28 Troponin T 0.017 ng/mL (0.00-0.029) 07/13/18 00:28 C-Reactive Protein 4.80 mg/dL (0.00-1.30) H 06/28/18 05:00 Total Protein 5.5 g/dL (6.3-8.2) L 07/11/18 03:22 Albumin 2.0 g/dL (3.9-5) L 07/11/18 03:22 Albumin/Globulin Ratio 0.6 % 07/11/18 03:22 Vitamin B1 <6 nmol/L (8-30) L 06/21/18 16:27 Vitamin B12 1598 pg/mL (211-911) H 06/20/18 20:53 25-OH Vitamin D Total 10 ng/mL (30-100) L 06/20/18 20:53 25-Hydroxy Vitamin D2 . 06/20/18 20:53 25-Hydroxy Vitamin D3 . 06/20/18 20:53 Folate 14.18 ng/mL (7.3-26.0) 06/20/18 20:53 TSH 1.540 mlU/mL (0.270-4.200) 06/27/18 09:29 Free T4 1.78 ng/dL (0.76-1.46) H 06/27/18 09:29 T3 (GILSON) 58 ng/dL (76-181) L 06/20/18 16:51 Urine Color Caryl (Yellow) 06/16/18 Unknown Urine Turbidity Clear (Clear) 06/16/18 Unknown Urine pH 5.0 (5.0-7.0) 06/16/18 Unknown Ur Specific [place] 1.025 (1.003-1.030) 06/16/18 Unknown Urine Protein 100 mg/dl mg/dL (Negative) 06/16/18 Unknown Urine Glucose (UA) 50 mg/dL (Negative) 06/16/18 Unknown Urine Ketones Neg mg/dL (Negative) 06/16/18 Unknown Urine Blood Neg (Negative) 06/16/18 Unknown Urine Nitrite Neg (Negative) 06/16/18 Unknown Urine Bilirubin Neg (Negative) 06/16/18 Unknown Urine Urobilinogen 4.0 mg/dL (<2.0) 06/16/18 Unknown Ur Leukocyte Esterase Neg (Negative) 06/16/18 Unknown Urine WBC (Auto) 4.0 /HPF (0.0-6.0) 06/16/18 Unknown Urine RBC (Auto) 5.0 /HPF (0.0-6.0) 06/16/18 Unknown U Epithel Cells (Auto) 7.0 /HPF (0-13.0) 06/16/18 Unknown Hyaline Casts 49 /LPF 06/16/18 Unknown Urine Mucus Few /HPF 06/16/18 Unknown Urine Osmolality 413 Mosm/kg 06/19/18 Unknown Urine Creatinine 61.7 mg/dL (0.1-20.0) H 06/19/18 Unknown Urine Total Protein 32 mg/dL (5-11.8) H 06/19/18 Unknown Salicylates 5.5 mg/dL (2.8-20.0) 06/16/18 21:43 Urine Opiates Screen Presumptive negative 06/16/18 Unknown Urine Methadone Screen Presumptive negative 06/16/18 Unknown Acetaminophen < 5.0 ug/mL (10.0-30.0) L 06/16/18 21:43 Ur Barbiturates Screen Presumptive negative 06/16/18 Unknown Ur Phencyclidine Scrn Presumptive negative 06/16/18 Unknown Ur Amphetamines Screen Presumptive negative 06/16/18 Unknown U Benzodiazepines Scrn Presumptive negative 06/16/18 Unknown Urine Cocaine Screen Presumptive negative 06/16/18 Unknown U Marijuana (THC) Screen Presumptive negative 06/16/18 Unknown Drugs of Abuse Note Disclamer 06/16/18 Unknown Plasma/Serum Alcohol < 0.01 % (0-0.07) 06/16/18 21:43 Thyroglobulin Antibody See scanned result 06/20/18 16:51 Thyroid Peroxidase Ab See scanned result 06/20/18 16:51 HIV 1&2 Antibody Rapid Non react (Non React) 06/21/18 16:27 HIV P24 Antigen Non react (Non React) 06/21/18 16:27 Active Medications - Current Medications Current Medications: Generic Name Dose Route Start Last Admin Trade Name Freq PRN Reason Stop Dose Admin Acetaminophen 650 mg 06/17/18 03:33 07/11/18 02:57 Tylenol PO 650 mg Q4H PRN Administration Fever >101 Albuterol/Ipratropium 1 ampul 06/27/18 14:00 07/13/18 08:24 Duoneb *Not For Prn Use* IH 1 ampul TIDRT JEANETTE Administration Apixaban 5 mg 06/20/18 16:00 07/13/18 09:12 Eliquis PO 5 mg Q12HR JEANETTE Administration Protocol Atorvastatin Calcium 20 mg 06/19/18 22:00 07/12/18 22:34 Lipitor PO 20 mg QHS JEANETTE Administration Dextrose 50 ml 07/01/18 11:50 07/12/18 08:58 D50w (25gm) Syringe IV 50 ml PRN PRN Administration Hypoglycemia Digoxin 0.125 mg 06/24/18 17:00 07/12/18 17:58 Lanoxin PO 0.125 mg DAILY@1700 JEANETTE Administration Famotidine 20 mg 06/27/18 12:00 07/13/18 09:12 Pepcid PO 20 mg DAILY JEANETTE Administration Furosemide 20 mg 07/05/18 18:00 07/13/18 06:37 Lasix PO 20 mg 0600,1800 JEANETTE Administration Insulin Human Lispro 0 unit 07/01/18 16:30 07/13/18 08:52 Humalog SUB-Q Not Given ACHS [facility] Protocol Lactulose 20 gm 07/04/18 12:00 Cephulac PO Q6HR PRN CONSTIPATION Lisinopril 2.5 mg 07/12/18 10:00 07/13/18 09:12 Zestril PO 2.5 mg QDAY JEANETTE Administration Metoprolol Tartrate 25 mg 06/25/18 09:00 07/13/18 09:14 Lopressor PO 25 mg Q8H JEANETTE Administration Nitroglycerin 0.4 mg 07/12/18 12:22 07/12/18 12:32 Nitrostat SL 0.4 mg .Q5MIN PRN Administration Chest Pain Ondansetron HCl 4 mg 06/17/18 03:24 Zofran IV Q8H PRN Nausea And Vomiting Sertraline HCl 50 mg 06/24/18 10:00 07/13/18 09:11 Zoloft PO 50 mg DAILY JEANETTE Administration Nutrition/Malnutrition Assess - Dietary Evaluation Nutrition/Malnutrition Findings: Nutrition Notes Start: 06/24/18 15:14 Freq: Status: Active Protocol: Document 07/12/18 12:13 EB (Rec: 07/12/18 12:20 EB [id number]) Co-Sign 07/12/18 12:13 LP Nutrition Notes Need for Assessment generated from: MD Order Initial or Follow up Reassessment Current Diagnosis Acute Kidney Injury, Hypertension,Heart Failure, Respiratory Failure Other Pertinent Diagnosis Dementia, s/p cardiac arrest, psychosis, AMS Current Diet Mechanical Soft w/chopped meat Labs/Tests Reviewed Pertinent Medications Reviewed Height 5 ft 5 in Weight 82.2 kg [place] Body Weight (kg) 56.81 BMI 30.1 Subjective/Other Information Consulted for Malnutrition. Pt sititng in chair at bedside at time of visit using supplemental oxygen mask. Pt states she eats about half her meals and says she is hungry after eating but she does not like the food here. Pt consumes ONS daily. Slightl fluid accumulation noted in left arm. Percent of energy/protein needs met: 80%/73% Burn Absent Trauma Absent Minimum of two criteria No #1 Nutrition Diagnosis Inadequate oral intake As Evidenced by Signs and Symptoms pt eating 50% of meals and 100 % of ONS Diagnosis Progress(for reassessment Worsened documentation) Is patient on ventilator? No Is Patient Ambulatory and/or Out of Bed No REE-([facility]-confined to bed) 0831.967 Calculation Used for Recommendations [facility] Additional Notes Pro needs 1-1.2g/k-96 g/ day Fluid needs 1ml/kcall Nutrition Intervention Change Diet Order: Continue current Add Supplement/Snack (indicate name/kcal Ensure Clear 1 daily /protein ) Provides kCal: 240 Provides Protein (gm) 8 Goal #1 meet at least 75% of energy and protein needs via PO intake Anticipated Discharge Needs: Mechanical Soft Follow-Up By: 07/15/18 Additional Comments F/u: PO and ONS intakes
[2018-07-13] MEDS: LANOXIN PO SCH (16:10)
--- NOTE | 2018-07-13 18:14 | Progress Note ---
Assessment and Plan Patient awake. Patient resting on on 2 litres o2. O2 saturation 99% .No acute respiratory distress.Patient afebrile. No leukocytosis. - Patient Problems (1) Cardiac arrest Current Visit: Yes Status: Acute Plan to address problem: Patient successfully resuciated. Patient resting on 2 litres O2.O2 saturation 99%. (2) Acute respiratory failure with hypoxia Current Visit: Yes Status: Acute Plan to address problem: Patient is on 2 litres O2. O2 saturation 99%. (3) Acute kidney failure with tubular necrosis Current Visit: Yes Status: Acute Plan to address problem: Management as per nephrology. (4) Altered mental status Current Visit: Yes Status: Acute Plan to address problem: Improving. Still confusing at times. (5) Paroxysmal atrial fibrillation Current Visit: Yes Status: Acute Plan to address problem: Patient is on Apixaban. Management as per cardiology. (6) Acute on chronic systolic heart failure Current Visit: No Status: Acute Plan to address problem: Management as per cardiology. (7) HTN (hypertension) Current Visit: No Status: Chronic Plan to address problem: Management as per primary care. (8) Left lower lobe pulmonary infiltrate Current Visit: Yes Status: Acute Plan to address problem: Patient afebrile. No leukocytosis. Siignificant improvement in chest xray. Mild volume Overload. Subjective Date of service: 07/13/18 Principal diagnosis: altered mental status, psychosis, chronic systolic heart failure, Interval history: Patient awake. Patient resting on on 2 litres o2. O2 saturation 99% .No acute respiratory distress.Patient afebrile. No leukocytosis. Objective Vital Signs - 12hr 07/13/18 07/13/18 07/13/18 07:20 07:23 07:30 Temperature 97.3 F L Pulse Rate 89 Pulse Rate [ 89 88 Posterior Bilateral Throughout] Respiratory 18 Rate Respiratory 18 18 Rate [Posterior Bilateral Throughout] Blood Pressure 122/57 O2 Sat by Pulse 100 Oximetry 07/13/18 07/13/18 07/13/18 08:13 09:12 09:14 Temperature Pulse Rate Pulse Rate [ Posterior Bilateral Throughout] Respiratory 20 Rate Respiratory Rate [Posterior Bilateral Throughout] Blood Pressure 122/57 122/57 O2 Sat by Pulse Oximetry 07/13/18 07/13/18 07/13/18 09:51 11:43 13:08 Temperature 97.7 F Pulse Rate 93 H 74 Pulse Rate [ Posterior Bilateral Throughout] Respiratory 18 Rate Respiratory Rate [Posterior Bilateral Throughout] Blood Pressure 110/74 O2 Sat by Pulse 100 90 Oximetry 07/13/18 07/13/18 07/13/18 14:20 14:30 16:10 Temperature Pulse Rate 90 Pulse Rate [ 76 80 Posterior Bilateral Throughout] Respiratory Rate Respiratory 16 16 Rate [Posterior Bilateral Throughout] Blood Pressure O2 Sat by Pulse Oximetry 07/13/18 16:24 Temperature Pulse Rate Pulse Rate [ Posterior Bilateral Throughout] Respiratory Rate Respiratory Rate [Posterior Bilateral Throughout] Blood Pressure 100/62 O2 Sat by Pulse Oximetry Constitutional: no acute distress, alert, other (Confusing at times.) Eyes: non-icteric, other (Pupils 4mm, sluggichly reacting to light) ENT: oropharynx dry, other (extubated) Neck: supple, no lymphadenopathy, no JVD, other (no thyromegaly) Effort: normal Ascultation: Bilateral: diminished breath sounds, rales Percussion: Bilateral: not dull Cardiovascular: irregular rhythm, other (S1,S2,) Gastrointestinal: normoactive bowel sounds, soft, non-tender, non-distended Integumentary: rash (exematoid rash to upper chest) Extremities: no cyanosis, no edema, pulses normal, no ischemia or petechiae Neurologic: normal mental status, non-focal exam (grossly), pupils equal and round, CN II-XII normal Psychiatric: depressed CBC and BMP: 07/11/18 03:22 07/11/18 03:22 ABG, PT/INR, D-dimer: ABG POC ABG pH 7.552 (7.35-7.45) H 06/28/18 10:53 POC ABG pCO2 40.8 (35-45) 06/28/18 10:53 POC ABG pO2 83 (80-105) 06/28/18 10:53 POC ABG HCO3 35.9 (22-26 mml/L) 06/28/18 10:53 POC ABG Total CO2 37 (23-27mmol/L) 06/28/18 10:53 POC ABG O2 Sat 97 06/28/18 10:53 Abnormal lab findings: Abnormal Labs 06/16/18 06/16/18 06/16/18 21:05 21:43 21:43 WBC RBC Hgb Hct MCV MCH RDW Plt Count Lymph % (Auto) [place] % (Auto) Lymph # [place] # Seg Neutrophils % Seg Neuts % (Manual) Lymphocytes % (Manual) Monocytes % (Manual) Seg Neutrophils # Seg Neutrophils # Man Lymphocytes # (Manual) Monocytes # (Manual) POC ABG pH POC ABG pCO2 POC ABG pO2 Sodium 129 L Potassium Chloride 95.3 L Carbon Dioxide 14 L BUN 23 H Creatinine Glucose 146 H POC Glucose < 40 L Lactic Acid Uric Acid Calcium Magnesium Total Bilirubin Direct Bilirubin AST ALT Alkaline Phosphatase Ammonia CK-MB (CK-2) Rel Index C-Reactive Protein Total Protein Albumin Vitamin B1 Vitamin B12 25-OH Vitamin D Total Free T4 T3 (GILSON) Urine Creatinine Urine Total Protein Acetaminophen < 5.0 L 06/16/18 06/16/18 06/16/18 21:43 21:43 22:27 WBC RBC 5.70 H Hgb Hct 44.6 H MCV 78 L MCH 25 L RDW 18.7 H Plt Count Lymph % (Auto) [place] % (Auto) Lymph # [place] # Seg Neutrophils % 78.8 H Seg Neuts % (Manual) Lymphocytes % (Manual) Monocytes % (Manual) Seg Neutrophils # Seg Neutrophils # Man Lymphocytes # (Manual) Monocytes # (Manual) POC ABG pH POC ABG pCO2 POC ABG pO2 Sodium Potassium Chloride Carbon Dioxide BUN Creatinine Glucose POC Glucose 121 H Lactic Acid Uric Acid Calcium Magnesium Total Bilirubin Direct Bilirubin AST ALT Alkaline Phosphatase Ammonia CK-MB (CK-2) Rel Index C-Reactive Protein Total Protein Albumin Vitamin B1 Vitamin B12 25-OH Vitamin D Total Free T4 1.87 H T3 (GILSON) Urine Creatinine Urine Total Protein Acetaminophen 06/16/18 06/16/18 06/17/18 22:33 23:43 03:56 WBC RBC Hgb Hct MCV MCH RDW Plt Count Lymph % (Auto) [place] % (Auto) Lymph # [place] # Seg Neutrophils % Seg Neuts % (Manual) Lymphocytes % (Manual) Monocytes % (Manual) Seg Neutrophils # Seg Neutrophils # Man Lymphocytes # (Manual) Monocytes # (Manual) POC ABG pH POC ABG pCO2 POC ABG pO2 Sodium Potassium Chloride Carbon Dioxide BUN Creatinine Glucose POC Glucose Lactic Acid 4.40 H* 4.30 H* 3.10 H* Uric Acid Calcium Magnesium Total Bilirubin Direct Bilirubin AST ALT Alkaline Phosphatase Ammonia CK-MB (CK-2) Rel Index C-Reactive Protein Total Protein Albumin Vitamin B1 Vitamin B12 25-OH Vitamin D Total Free T4 T3 (GILSON) Urine Creatinine Urine Total Protein Acetaminophen 06/17/18 06/17/18 06/17/18 08:35 08:40 11:00 WBC RBC Hgb Hct MCV MCH RDW Plt Count Lymph % (Auto) [place] % (Auto) Lymph # [place] # Seg Neutrophils % Seg Neuts % (Manual) Lymphocytes % (Manual) Monocytes % (Manual) Seg Neutrophils # Seg Neutrophils # Man Lymphocytes # (Manual) Monocytes # (Manual) POC ABG pH POC ABG pCO2 POC ABG pO2 Sodium Potassium Chloride Carbon Dioxide BUN Creatinine Glucose POC Glucose 56 L Lactic Acid 2.70 H* 3.40 H* Uric Acid Calcium Magnesium Total Bilirubin Direct Bilirubin AST ALT Alkaline Phosphatase Ammonia CK-MB (CK-2) Rel Index C-Reactive Protein Total Protein Albumin Vitamin B1 Vitamin B12 25-OH Vitamin D Total Free T4 T3 (GILSON) Urine Creatinine Urine Total Protein Acetaminophen 06/17/18 06/17/18 06/17/18 11:00 11:00 11:00 WBC 11.9 H RBC 5.25 H Hgb Hct MCV MCH 25 L RDW 18.6 H Plt Count Lymph % (Auto) [place] % (Auto) Lymph # [place] # Seg Neutrophils % Seg Neuts % (Manual) Lymphocytes % (Manual) Monocytes % (Manual) Seg Neutrophils # Seg Neutrophils # Man Lymphocytes # (Manual) Monocytes # (Manual) POC ABG pH POC ABG pCO2 POC ABG pO2 Sodium 128 L Potassium Chloride 95.6 L Carbon Dioxide 15 L BUN 22 H Creatinine Glucose 110 H POC Glucose Lactic Acid Uric Acid Calcium 8.3 L Magnesium Total Bilirubin Direct Bilirubin 1.6 H AST 66 H ALT Alkaline Phosphatase 178 H Ammonia CK-MB (CK-2) Rel Index C-Reactive Protein Total Protein 4.7 L Albumin 2.4 L Vitamin B1 Vitamin B12 25-OH Vitamin D Total Free T4 T3 (GILSON) Urine Creatinine Urine Total Protein Acetaminophen 06/17/18 06/17/18 06/17/18 15:08 15:08 23:00 WBC RBC Hgb Hct MCV MCH RDW Plt Count Lymph % (Auto) [place] % (Auto) Lymph # [place] # Seg Neutrophils % Seg Neuts % (Manual) Lymphocytes % (Manual) Monocytes % (Manual) Seg Neutrophils # Seg Neutrophils # Man Lymphocytes # (Manual) Monocytes # (Manual) POC ABG pH POC ABG pCO2 POC ABG pO2 Sodium Potassium Chloride Carbon Dioxide BUN Creatinine Glucose POC Glucose Lactic Acid 4.00 H* Uric Acid Calcium Magnesium Total Bilirubin Direct Bilirubin AST ALT Alkaline Phosphatase Ammonia 10.0 L CK-MB (CK-2) Rel Index C-Reactive Protein Total Protein Albumin Vitamin B1 Vitamin B12 25-OH Vitamin D Total Free T4 1.53 H T3 (GILSON) Urine Creatinine Urine Total Protein Acetaminophen 06/18/18 06/18/18 06/18/18 08:59 08:59 12:49 WBC RBC 5.29 H Hgb Hct MCV 78 L MCH 25 L RDW 18.4 H Plt Count Lymph % (Auto) [place] % (Auto) Lymph # [place] # Seg Neutrophils % Seg Neuts % (Manual) Lymphocytes % (Manual) Monocytes % (Manual) Seg Neutrophils # Seg Neutrophils # Man Lymphocytes # (Manual) Monocytes # (Manual) POC ABG pH POC ABG pCO2 POC ABG pO2 Sodium 128 L Potassium 5.9 H D Chloride 96.1 L Carbon Dioxide 20 L BUN 22 H Creatinine Glucose POC Glucose 60 L Lactic Acid Uric Acid Calcium Magnesium Total Bilirubin Direct Bilirubin AST ALT Alkaline Phosphatase Ammonia CK-MB (CK-2) Rel Index C-Reactive Protein Total Protein Albumin Vitamin B1 Vitamin B12 25-OH Vitamin D Total Free T4 T3 (GILSON) Urine Creatinine Urine Total Protein Acetaminophen 06/18/18 06/19/18 06/19/18 21:28 12:14 13:23 WBC RBC Hgb Hct MCV MCH RDW Plt Count Lymph % (Auto) [place] % (Auto) Lymph # [place] # Seg Neutrophils % Seg Neuts % (Manual) Lymphocytes % (Manual) Monocytes % (Manual) Seg Neutrophils # Seg Neutrophils # Man Lymphocytes # (Manual) Monocytes # (Manual) POC ABG pH POC ABG pCO2 POC ABG pO2 Sodium 122 L Potassium 5.4 H Chloride 95.0 L Carbon Dioxide 13 L D BUN 21 H Creatinine Glucose 119 H POC Glucose 114 H Lactic Acid Uric Acid Calcium 8.3 L Magnesium Total Bilirubin Direct Bilirubin AST ALT Alkaline Phosphatase Ammonia CK-MB (CK-2) Rel Index C-Reactive Protein Total Protein Albumin Vitamin B1 Vitamin B12 25-OH Vitamin D Total Free T4 T3 (GILSON) Urine Creatinine Urine Total Protein Acetaminophen 06/19/18 06/19/18 06/19/18 14:47 16:38 22:42 WBC RBC 5.51 H Hgb Hct 45.3 H MCV MCH 25 L RDW 18.6 H Plt Count Lymph % (Auto) [place] % (Auto) Lymph # [place] # Seg Neutrophils % Seg Neuts % (Manual) Lymphocytes % (Manual) Monocytes % (Manual) Seg Neutrophils # Seg Neutrophils # Man Lymphocytes # (Manual) Monocytes # (Manual) POC ABG pH POC ABG pCO2 POC ABG pO2 Sodium Potassium Chloride Carbon Dioxide BUN Creatinine Glucose POC Glucose 108 H 49 L Lactic Acid Uric Acid Calcium Magnesium Total Bilirubin Direct Bilirubin AST ALT Alkaline Phosphatase Ammonia CK-MB (CK-2) Rel Index C-Reactive Protein Total Protein Albumin Vitamin B1 Vitamin B12 25-OH Vitamin D Total Free T4 T3 (GILSON) Urine Creatinine Urine Total Protein Acetaminophen 06/19/18 06/20/18 06/20/18 Unknown 07:31 16:51 WBC RBC Hgb Hct MCV MCH RDW Plt Count Lymph % (Auto) [place] % (Auto) Lymph # [place] # Seg Neutrophils % Seg Neuts % (Manual) Lymphocytes % (Manual) Monocytes % (Manual) Seg Neutrophils # Seg Neutrophils # Man Lymphocytes # (Manual) Monocytes # (Manual) POC ABG pH POC ABG pCO2 POC ABG pO2 Sodium 132 L D Potassium Chloride 94.3 L Carbon Dioxide BUN 20 H Creatinine Glucose POC Glucose Lactic Acid Uric Acid 8.6 H Calcium Magnesium 1.30 L Total Bilirubin Direct Bilirubin AST ALT Alkaline Phosphatase Ammonia CK-MB (CK-2) Rel Index C-Reactive Protein Total Protein Albumin Vitamin B1 Vitamin B12 25-OH Vitamin D Total Free T4 T3 (GILSON) 58 L Urine Creatinine 61.7 H Urine Total Protein 32 H Acetaminophen 06/20/18 06/20/18 06/21/18 20:53 20:53 16:27 WBC RBC Hgb Hct MCV MCH RDW Plt Count Lymph % (Auto) [place] % (Auto) Lymph # [place] # Seg Neutrophils % Seg Neuts % (Manual) Lymphocytes % (Manual) Monocytes % (Manual) Seg Neutrophils # Seg Neutrophils # Man Lymphocytes # (Manual) Monocytes # (Manual) POC ABG pH POC ABG pCO2 POC ABG pO2 Sodium Potassium Chloride Carbon Dioxide BUN Creatinine Glucose POC Glucose Lactic Acid Uric Acid 9.2 H Calcium Magnesium Total Bilirubin Direct Bilirubin AST ALT Alkaline Phosphatase Ammonia CK-MB (CK-2) Rel Index C-Reactive Protein Total Protein Albumin Vitamin B1 Vitamin B12 1598 H 25-OH Vitamin D Total 10 L Free T4 T3 (GILSON) Urine Creatinine Urine Total Protein Acetaminophen 06/21/18 06/21/18 06/21/18 16:27 16:27 16:27 WBC RBC 5.26 H Hgb Hct MCV 77 L MCH 26 L RDW 17.7 H Plt Count Lymph % (Auto) [place] % (Auto) Lymph # [place] # Seg Neutrophils % Seg Neuts % (Manual) Lymphocytes % (Manual) Monocytes % (Manual) Seg Neutrophils # Seg Neutrophils # Man Lymphocytes # (Manual) Monocytes # (Manual) POC ABG pH POC ABG pCO2 POC ABG pO2 Sodium 130 L Potassium Chloride 95.6 L Carbon Dioxide BUN 24 H Creatinine Glucose POC Glucose Lactic Acid Uric Acid Calcium Magnesium Total Bilirubin Direct Bilirubin AST ALT Alkaline Phosphatase Ammonia CK-MB (CK-2) Rel Index C-Reactive Protein Total Protein Albumin Vitamin B1 <6 L Vitamin B12 25-OH Vitamin D Total Free T4 T3 (GILSON) Urine Creatinine Urine Total Protein Acetaminophen 06/21/18 06/22/18 06/23/18 21:44 21:42 14:54 WBC RBC 5.07 H Hgb Hct MCV 78 L MCH 25 L RDW 18.5 H Plt Count Lymph % (Auto) [place] % (Auto) 12.3 H Lymph # 1.0 L [place] # Seg Neutrophils % Seg Neuts % (Manual) Lymphocytes % (Manual) Monocytes % (Manual) Seg Neutrophils # Seg Neutrophils # Man Lymphocytes # (Manual) Monocytes # (Manual) POC ABG pH POC ABG pCO2 POC ABG pO2 Sodium Potassium Chloride Carbon Dioxide BUN Creatinine Glucose POC Glucose 126 H 114 H Lactic Acid Uric Acid Calcium Magnesium Total Bilirubin Direct Bilirubin AST ALT Alkaline Phosphatase Ammonia CK-MB (CK-2) Rel Index C-Reactive Protein Total Protein Albumin Vitamin B1 Vitamin B12 25-OH Vitamin D Total Free T4 T3 (GILSON) Urine Creatinine Urine Total Protein Acetaminophen 06/23/18 06/25/18 06/25/18 14:54 00:00 00:00 WBC 3.6 L RBC 5.31 H Hgb Hct MCV 77 L MCH 26 L RDW 19.0 H Plt Count Lymph % (Auto) [place] % (Auto) 10.2 H Lymph # [place] # Seg Neutrophils % Seg Neuts % (Manual) Lymphocytes % (Manual) Monocytes % (Manual) Seg Neutrophils # Seg Neutrophils # Man Lymphocytes # (Manual) Monocytes # (Manual) POC ABG pH POC ABG pCO2 POC ABG pO2 Sodium 132 L 131 L Potassium 3.5 L Chloride 91.5 L 93.5 L Carbon Dioxide BUN 19 H 21 H Creatinine Glucose POC Glucose Lactic Acid Uric Acid Calcium 8.1 L Magnesium Total Bilirubin 2.80 H 2.70 H Direct Bilirubin AST 52 H 81 H ALT Alkaline Phosphatase 231 H 243 H Ammonia CK-MB (CK-2) Rel Index C-Reactive Protein Total Protein 5.5 L 5.5 L Albumin 2.8 L 2.7 L Vitamin B1 Vitamin B12 25-OH Vitamin D Total Free T4 T3 (GILSON) Urine Creatinine Urine Total Protein Acetaminophen 06/25/18 06/25/18 06/25/18 16:02 16:02 16:18 WBC 3.9 L RBC 5.78 H Hgb 14.6 H Hct 45.4 H MCV MCH 25 L RDW 19.2 H Plt Count Lymph % (Auto) [place] % (Auto) Lymph # [place] # Seg Neutrophils % Seg Neuts % (Manual) Lymphocytes % (Manual) Monocytes % (Manual) Seg Neutrophils # Seg Neutrophils # Man Lymphocytes # (Manual) 1.1 L Monocytes # (Manual) POC ABG pH POC ABG pCO2 POC ABG pO2 Sodium 131 L Potassium Chloride 90.0 L Carbon Dioxide BUN 25 H Creatinine 1.4 H Glucose POC Glucose Lactic Acid 4.00 H* Uric Acid Calcium Magnesium Total Bilirubin 3.10 H Direct Bilirubin AST 68 H ALT Alkaline Phosphatase 296 H Ammonia CK-MB (CK-2) Rel Index C-Reactive Protein Total Protein 6.1 L Albumin 3.3 L Vitamin B1 Vitamin B12 25-OH Vitamin D Total Free T4 T3 (GILSON) Urine Creatinine Urine Total Protein Acetaminophen 06/25/18 06/26/18 06/26/18 21:06 11:33 11:37 WBC RBC Hgb Hct MCV MCH 26 L RDW 19.2 H Plt Count 139 L Lymph % (Auto) [place] % (Auto) Lymph # [place] # Seg Neutrophils % Seg Neuts % (Manual) 85.0 H Lymphocytes % (Manual) 6.0 L Monocytes % (Manual) Seg Neutrophils # Seg Neutrophils # Man 8.0 H Lymphocytes # (Manual) 0.6 L Monocytes # (Manual) POC ABG pH POC ABG pCO2 POC ABG pO2 Sodium Potassium Chloride Carbon Dioxide BUN Creatinine Glucose POC Glucose < 40 L Lactic Acid 6.40 H* Uric Acid Calcium Magnesium Total Bilirubin Direct Bilirubin AST ALT Alkaline Phosphatase Ammonia CK-MB (CK-2) Rel Index C-Reactive Protein Total Protein Albumin Vitamin B1 Vitamin B12 25-OH Vitamin D Total Free T4 T3 (GILSON) Urine Creatinine Urine Total Protein Acetaminophen 06/26/18 06/26/18 06/26/18 11:37 11:51 11:59 WBC RBC Hgb Hct MCV MCH RDW Plt Count Lymph % (Auto) [place] % (Auto) Lymph # [place] # Seg Neutrophils % Seg Neuts % (Manual) Lymphocytes % (Manual) Monocytes % (Manual) Seg Neutrophils # Seg Neutrophils # Man Lymphocytes # (Manual) Monocytes # (Manual) POC ABG pH 7.029 L POC ABG pCO2 POC ABG pO2 73 L Sodium 129 L Potassium Chloride 87.0 L Carbon Dioxide 11 L D BUN 31 H Creatinine 1.9 H Glucose 206 H POC Glucose 253 H Lactic Acid Uric Acid Calcium 7.9 L Magnesium Total Bilirubin 2.90 H Direct Bilirubin AST 98 H ALT Alkaline Phosphatase 196 H Ammonia CK-MB (CK-2) Rel Index C-Reactive Protein Total Protein 4.3 L D Albumin 2.2 L Vitamin B1 Vitamin B12 25-OH Vitamin D Total Free T4 T3 (GILSON) Urine Creatinine Urine Total Protein Acetaminophen 06/26/18 06/26/18 06/26/18 14:54 15:08 15:10 WBC 14.2 H RBC 5.66 H Hgb 14.5 H Hct 45.6 H D MCV MCH 26 L RDW 19.4 H Plt Count Lymph % (Auto) [place] % (Auto) Lymph # [place] # Seg Neutrophils % Seg Neuts % (Manual) 88.0 H Lymphocytes % (Manual) 5.0 L Monocytes % (Manual) Seg Neutrophils # Seg Neutrophils # Man 12.5 H Lymphocytes # (Manual) 0.7 L Monocytes # (Manual) 0.9 H POC ABG pH POC ABG pCO2 POC ABG pO2 Sodium Potassium Chloride Carbon Dioxide BUN Creatinine Glucose POC Glucose 172 H Lactic Acid 11.90 H* Uric Acid Calcium Magnesium Total Bilirubin Direct Bilirubin AST ALT Alkaline Phosphatase Ammonia CK-MB (CK-2) Rel Index C-Reactive Protein Total Protein Albumin Vitamin B1 Vitamin B12 25-OH Vitamin D Total Free T4 T3 (GILSON) Urine Creatinine Urine Total Protein Acetaminophen 06/26/18 06/26/18 06/26/18 16:01 18:47 20:55 WBC RBC Hgb Hct MCV MCH RDW Plt Count Lymph % (Auto) [place] % (Auto) Lymph # [place] # Seg Neutrophils % Seg Neuts % (Manual) Lymphocytes % (Manual) Monocytes % (Manual) Seg Neutrophils # Seg Neutrophils # Man Lymphocytes # (Manual) Monocytes # (Manual) POC ABG pH POC ABG pCO2 34.0 L POC ABG pO2 Sodium Potassium Chloride Carbon Dioxide BUN Creatinine Glucose POC Glucose 183 H 131 H Lactic Acid Uric Acid Calcium Magnesium Total Bilirubin Direct Bilirubin AST ALT Alkaline Phosphatase Ammonia CK-MB (CK-2) Rel Index C-Reactive Protein Total Protein Albumin Vitamin B1 Vitamin B12 25-OH Vitamin D Total Free T4 T3 (GILSON) Urine Creatinine Urine Total Protein Acetaminophen 06/26/18 06/27/18 06/27/18 21:55 09:29 09:29 WBC RBC Hgb Hct MCV MCH RDW Plt Count Lymph % (Auto) [place] % (Auto) Lymph # [place] # Seg Neutrophils % Seg Neuts % (Manual) Lymphocytes % (Manual) Monocytes % (Manual) Seg Neutrophils # Seg Neutrophils # Man Lymphocytes # (Manual) Monocytes # (Manual) POC ABG pH POC ABG pCO2 POC ABG pO2 Sodium 135 L 135 L Potassium 3.5 L Chloride 91.7 L 91.2 L Carbon Dioxide BUN 35 H 37 H Creatinine 2.3 H 2.1 H Glucose 147 H 104 H POC Glucose Lactic Acid Uric Acid Calcium 8.3 L 8.1 L Magnesium Total Bilirubin 3.50 H Direct Bilirubin AST 218 H ALT 57 H Alkaline Phosphatase 197 H Ammonia CK-MB (CK-2) Rel Index C-Reactive Protein Total Protein 5.0 L Albumin 2.3 L Vitamin B1 Vitamin B12 25-OH Vitamin D Total Free T4 1.78 H T3 (GILSON) Urine Creatinine Urine Total Protein Acetaminophen 06/27/18 06/27/18 06/27/18 09:29 09:29 10:00 WBC 16.3 H RBC 5.44 H Hgb Hct MCV 76 L MCH 25 L RDW 18.3 H Plt Count Lymph % (Auto) [place] % (Auto) Lymph # [place] # Seg Neutrophils % Seg Neuts % (Manual) 91.0 H Lymphocytes % (Manual) 3.0 L Monocytes % (Manual) Seg Neutrophils # Seg Neutrophils # Man 14.8 H Lymphocytes # (Manual) 0.5 L Monocytes # (Manual) 1.0 H POC ABG pH POC ABG pCO2 POC ABG pO2 Sodium Potassium Chloride Carbon Dioxide BUN Creatinine Glucose POC Glucose 106 H Lactic Acid 4.00 H* Uric Acid Calcium Magnesium Total Bilirubin Direct Bilirubin AST ALT Alkaline Phosphatase Ammonia CK-MB (CK-2) Rel Index C-Reactive Protein Total Protein Albumin Vitamin B1 Vitamin B12 25-OH Vitamin D Total Free T4 T3 (GILSON) Urine Creatinine Urine Total Protein Acetaminophen 06/27/18 06/27/18 06/27/18 11:51 12:50 13:39 WBC RBC Hgb Hct MCV MCH RDW Plt Count Lymph % (Auto) [place] % (Auto) Lymph # [place] # Seg Neutrophils % Seg Neuts % (Manual) Lymphocytes % (Manual) Monocytes % (Manual) Seg Neutrophils # Seg Neutrophils # Man Lymphocytes # (Manual) Monocytes # (Manual) POC ABG pH 7.584 H POC ABG pCO2 32.8 L POC ABG pO2 109 H Sodium Potassium Chloride Carbon Dioxide BUN Creatinine Glucose POC Glucose 112 H Lactic Acid 3.20 H* Uric Acid Calcium Magnesium Total Bilirubin Direct Bilirubin AST ALT Alkaline Phosphatase Ammonia CK-MB (CK-2) Rel Index C-Reactive Protein Total Protein Albumin Vitamin B1 Vitamin B12 25-OH Vitamin D Total Free T4 T3 (GILSON) Urine Creatinine Urine Total Protein Acetaminophen 06/27/18 06/27/18 06/27/18 19:31 21:50 23:10 WBC RBC Hgb Hct MCV MCH RDW Plt Count Lymph % (Auto) [place] % (Auto) Lymph # [place] # Seg Neutrophils % Seg Neuts % (Manual) Lymphocytes % (Manual) Monocytes % (Manual) Seg Neutrophils # Seg Neutrophils # Man Lymphocytes # (Manual) Monocytes # (Manual) POC ABG pH POC ABG pCO2 POC ABG pO2 Sodium Potassium Chloride Carbon Dioxide BUN Creatinine Glucose POC Glucose Lactic Acid 2.40 H* 2.30 H* 2.30 H* Uric Acid Calcium Magnesium Total Bilirubin Direct Bilirubin AST ALT Alkaline Phosphatase Ammonia CK-MB (CK-2) Rel Index C-Reactive Protein Total Protein Albumin Vitamin B1 Vitamin B12 25-OH Vitamin D Total Free T4 T3 (GILSON) Urine Creatinine Urine Total Protein Acetaminophen 06/28/18 06/28/18 06/28/18 02:35 05:00 05:00 WBC RBC Hgb Hct MCV MCH RDW Plt Count Lymph % (Auto) [place] % (Auto) Lymph # [place] # Seg Neutrophils % Seg Neuts % (Manual) Lymphocytes % (Manual) Monocytes % (Manual) Seg Neutrophils # Seg Neutrophils # Man Lymphocytes # (Manual) Monocytes # (Manual) POC ABG pH POC ABG pCO2 POC ABG pO2 Sodium 134 L Potassium 2.6 L* D Chloride 92.3 L Carbon Dioxide 32 H BUN 34 H Creatinine 1.8 H Glucose 127 H POC Glucose Lactic Acid 2.20 H* 2.30 H* Uric Acid Calcium 7.5 L Magnesium Total Bilirubin 3.50 H Direct Bilirubin AST 226 H ALT 60 H Alkaline Phosphatase 172 H Ammonia CK-MB (CK-2) Rel Index C-Reactive Protein Total Protein 4.2 L Albumin 2.0 L Vitamin B1 Vitamin B12 25-OH Vitamin D Total Free T4 T3 (GILSON) Urine Creatinine Urine Total Protein Acetaminophen 06/28/18 06/28/18 06/28/18 05:00 08:30 08:30 WBC 15.7 H RBC Hgb Hct MCV 77 L MCH 25 L RDW 18.5 H Plt Count 112 L Lymph % (Auto) 6.0 L [place] % (Auto) 10.0 H Lymph # 0.9 L [place] # 1.6 H Seg Neutrophils % 83.4 H Seg Neuts % (Manual) Lymphocytes % (Manual) Monocytes % (Manual) Seg Neutrophils # 13.1 H Seg Neutrophils # Man Lymphocytes # (Manual) Monocytes # (Manual) POC ABG pH POC ABG pCO2 POC ABG pO2 Sodium Potassium Chloride Carbon Dioxide BUN Creatinine Glucose POC Glucose Lactic Acid 2.40 H* Uric Acid Calcium Magnesium Total Bilirubin Direct Bilirubin AST ALT Alkaline Phosphatase Ammonia CK-MB (CK-2) Rel Index C-Reactive Protein 4.80 H Total Protein Albumin Vitamin B1 Vitamin B12 25-OH Vitamin D Total Free T4 T3 (GILSON) Urine Creatinine Urine Total Protein Acetaminophen 06/28/18 06/28/18 06/28/18 10:53 11:23 18:35 WBC RBC Hgb Hct MCV MCH RDW Plt Count Lymph % (Auto) [place] % (Auto) Lymph # [place] # Seg Neutrophils % Seg Neuts % (Manual) Lymphocytes % (Manual) Monocytes % (Manual) Seg Neutrophils # Seg Neutrophils # Man Lymphocytes # (Manual) Monocytes # (Manual) POC ABG pH 7.552 H POC ABG pCO2 POC ABG pO2 Sodium Potassium 3.1 L Chloride Carbon Dioxide BUN Creatinine Glucose POC Glucose 122 H Lactic Acid Uric Acid Calcium Magnesium Total Bilirubin Direct Bilirubin AST ALT Alkaline Phosphatase Ammonia CK-MB (CK-2) Rel Index C-Reactive Protein Total Protein Albumin Vitamin B1 Vitamin B12 25-OH Vitamin D Total Free T4 T3 (GILSON) Urine Creatinine Urine Total Protein Acetaminophen 06/29/18 06/29/18 06/29/18 06:40 06:40 19:44 WBC 14.6 H RBC Hgb Hct MCV 77 L MCH 25 L RDW 19.3 H Plt Count 88 L Lymph % (Auto) [place] % (Auto) Lymph # [place] # Seg Neutrophils % Seg Neuts % (Manual) Lymphocytes % (Manual) Monocytes % (Manual) Seg Neutrophils # Seg Neutrophils # Man Lymphocytes # (Manual) Monocytes # (Manual) POC ABG pH POC ABG pCO2 POC ABG pO2 Sodium Potassium 2.7 L* Chloride 95.3 L Carbon Dioxide 32 H BUN 25 H Creatinine Glucose 145 H POC Glucose 59 L Lactic Acid Uric Acid Calcium 7.9 L Magnesium Total Bilirubin 3.60 H Direct Bilirubin AST 213 H ALT Alkaline Phosphatase 176 H Ammonia CK-MB (CK-2) Rel Index C-Reactive Protein Total Protein 4.8 L Albumin 2.2 L Vitamin B1 Vitamin B12 25-OH Vitamin D Total Free T4 T3 (GILSON) Urine Creatinine Urine Total Protein Acetaminophen 06/29/18 06/30/18 06/30/18 20:43 02:37 04:45 WBC RBC Hgb Hct MCV MCH RDW Plt Count Lymph % (Auto) [place] % (Auto) Lymph # [place] # Seg Neutrophils % Seg Neuts % (Manual) Lymphocytes % (Manual) Monocytes % (Manual) Seg Neutrophils # Seg Neutrophils # Man Lymphocytes # (Manual) Monocytes # (Manual) POC ABG pH POC ABG pCO2 POC ABG pO2 Sodium Potassium 3.1 L 2.8 L* Chloride Carbon Dioxide 31 H BUN 18 H Creatinine Glucose POC Glucose 59 L Lactic Acid Uric Acid Calcium 8.0 L Magnesium Total Bilirubin 3.70 H Direct Bilirubin AST 216 H ALT 63 H Alkaline Phosphatase 163 H Ammonia CK-MB (CK-2) Rel Index C-Reactive Protein Total Protein 4.5 L Albumin 2.1 L Vitamin B1 Vitamin B12 25-OH Vitamin D Total Free T4 T3 (GILSON) Urine Creatinine Urine Total Protein Acetaminophen 06/30/18 06/30/18 07/01/18 04:45 06:24 04:39 WBC 12.1 H RBC Hgb Hct MCV 78 L 77 L MCH 25 L 25 L RDW 19.0 H 19.3 H Plt Count 91 L 77 L Lymph % (Auto) [place] % (Auto) Lymph # [place] # Seg Neutrophils % Seg Neuts % (Manual) Lymphocytes % (Manual) Monocytes % (Manual) Seg Neutrophils # Seg Neutrophils # Man Lymphocytes # (Manual) Monocytes # (Manual) POC ABG pH POC ABG pCO2 POC ABG pO2 Sodium Potassium Chloride Carbon Dioxide BUN Creatinine Glucose POC Glucose 63 L Lactic Acid Uric Acid Calcium Magnesium Total Bilirubin Direct Bilirubin AST ALT Alkaline Phosphatase Ammonia CK-MB (CK-2) Rel Index C-Reactive Protein Total Protein Albumin Vitamin B1 Vitamin B12 25-OH Vitamin D Total Free T4 T3 ([place]ILSON) Urine Creatinine Urine Total Protein Acetaminophen 07/01/18 07/01/18 07/02/18 04:39 11:12 05:23 WBC RBC Hgb Hct MCV 77 L MCH 25 L RDW 19.2 H Plt Count 78 L Lymph % (Auto) [place] % (Auto) Lymph # [place] # Seg Neutrophils % Seg Neuts % (Manual) Lymphocytes % (Manual) Monocytes % (Manual) Seg Neutrophils # Seg Neutrophils # Man Lymphocytes # (Manual) Monocytes # (Manual) POC ABG pH POC ABG pCO2 POC ABG pO2 Sodium Potassium 3.5 L D Chloride Carbon Dioxide BUN Creatinine Glucose 109 H POC Glucose 206 H Lactic Acid Uric Acid Calcium 8.1 L Magnesium Total Bilirubin 3.90 H Direct Bilirubin AST 163 H ALT 60 H Alkaline Phosphatase 166 H Ammonia CK-MB (CK-2) Rel Index C-Reactive Protein Total Protein 4.5 L Albumin 2.0 L Vitamin B1 Vitamin B12 25-OH Vitamin D Total Free T4 T3 ([place]) Urine Creatinine Urine Total Protein Acetaminophen 07/02/18 07/02/18 07/03/18 05:23 12:18 08:14 WBC RBC Hgb Hct MCV 76 L MCH 25 L RDW 19.0 H Plt Count 84 L Lymph % (Auto) [place] % (Auto) Lymph # [place] # Seg Neutrophils % Seg Neuts % (Manual) Lymphocytes % (Manual) Monocytes % (Manual) Seg Neutrophils # Seg Neutrophils # Man Lymphocytes # (Manual) Monocytes # (Manual) POC ABG pH POC ABG pCO2 POC ABG pO2 Sodium 135 L Potassium 3.4 L Chloride Carbon Dioxide BUN Creatinine 0.6 L Glucose POC Glucose 144 H Lactic Acid Uric Acid Calcium 8.3 L Magnesium Total Bilirubin Direct Bilirubin AST ALT Alkaline Phosphatase Ammonia CK-MB (CK-2) Rel Index C-Reactive Protein Total Protein Albumin Vitamin B1 Vitamin B12 25-OH Vitamin D Total Free T4 T3 ([place]) Urine Creatinine Urine Total Protein Acetaminophen 07/03/18 07/03/18 07/04/18 08:14 16:33 05:36 WBC RBC Hgb Hct MCV 77 L MCH 25 L RDW 18.5 H Plt Count 103 L Lymph % (Auto) [place] % (Auto) Lymph # [place] # Seg Neutrophils % Seg Neuts % (Manual) Lymphocytes % (Manual) Monocytes % (Manual) Seg Neutrophils # Seg Neutrophils # Man Lymphocytes # (Manual) Monocytes # (Manual) POC ABG pH POC ABG pCO2 POC ABG pO2 Sodium 135 L Potassium Chloride 97.7 L Carbon Dioxide BUN Creatinine 0.5 L Glucose POC Glucose 69 L Lactic Acid Uric Acid Calcium 8.2 L Magnesium 1.50 L Total Bilirubin Direct Bilirubin AST ALT Alkaline Phosphatase Ammonia CK-MB (CK-2) Rel Index C-Reactive Protein Total Protein Albumin Vitamin B1 Vitamin B12 25-OH Vitamin D Total Free T4 T3 ([place]) Urine Creatinine Urine Total Protein Acetaminophen 07/04/18 07/04/18 07/04/18 05:36 08:54 11:47 WBC RBC Hgb Hct MCV MCH RDW Plt Count Lymph % (Auto) [place] % (Auto) Lymph # [place] # Seg Neutrophils % Seg Neuts % (Manual) Lymphocytes % (Manual) Monocytes % (Manual) Seg Neutrophils # Seg Neutrophils # Man Lymphocytes # (Manual) Monocytes # (Manual) POC ABG pH POC ABG pCO2 POC ABG pO2 Sodium 135 L Potassium Chloride Carbon Dioxide BUN Creatinine 0.5 L Glucose POC Glucose 61 L 122 H Lactic Acid Uric Acid Calcium 8.2 L Magnesium Total Bilirubin Direct Bilirubin AST ALT Alkaline Phosphatase Ammonia CK-MB (CK-2) Rel Index C-Reactive Protein Total Protein Albumin Vitamin B1 Vitamin B12 25-OH Vitamin D Total Free T4 T3 ([place]) Urine Creatinine Urine Total Protein Acetaminophen 07/04/18 07/05/18 07/06/18 16:44 21:15 11:50 WBC RBC Hgb Hct MCV MCH RDW Plt Count Lymph % (Auto) [place] % (Auto) Lymph # [place] # Seg Neutrophils % Seg Neuts % (Manual) Lymphocytes % (Manual) Monocytes % (Manual) Seg Neutrophils # Seg Neutrophils # Man Lymphocytes # (Manual) Monocytes # (Manual) POC ABG pH POC ABG pCO2 POC ABG pO2 Sodium Potassium Chloride Carbon Dioxide BUN Creatinine Glucose POC Glucose 124 H 150 H 67 L Lactic Acid Uric Acid Calcium Magnesium Total Bilirubin Direct Bilirubin AST ALT Alkaline Phosphatase Ammonia CK-MB (CK-2) Rel Index C-Reactive Protein Total Protein Albumin Vitamin B1 Vitamin B12 25-OH Vitamin D Total Free T4 T3 ([place]) Urine Creatinine Urine Total Protein Acetaminophen 07/06/18 07/06/18 07/06/18 13:32 16:27 21:13 WBC RBC Hgb Hct MCV MCH RDW Plt Count Lymph % (Auto) [place] % (Auto) Lymph # [place] # Seg Neutrophils % Seg Neuts % (Manual) Lymphocytes % (Manual) Monocytes % (Manual) Seg Neutrophils # Seg Neutrophils # Man Lymphocytes # (Manual) Monocytes # (Manual) POC ABG pH POC ABG pCO2 POC ABG pO2 Sodium Potassium Chloride Carbon Dioxide BUN Creatinine Glucose POC Glucose 146 H 125 H 69 L Lactic Acid Uric Acid Calcium Magnesium Total Bilirubin Direct Bilirubin AST ALT Alkaline Phosphatase Ammonia CK-MB (CK-2) Rel Index C-Reactive Protein Total Protein Albumin Vitamin B1 Vitamin B12 25-OH Vitamin D Total Free T4 T3 ([place]IL[place]) Urine Creatinine Urine Total Protein Acetaminophen 07/07/18 07/08/18 07/08/18 12:18 04:55 04:55 WBC RBC Hgb Hct MCV 78 L MCH 25 L RDW 18.2 H Plt Count Lymph % (Auto) [place] % (Auto) 14.8 H Lymph # [place] # 1.3 H Seg Neutrophils % Seg Neuts % (Manual) Lymphocytes % (Manual) Monocytes % (Manual) Seg Neutrophils # Seg Neutrophils # Man Lymphocytes # (Manual) Monocytes # (Manual) POC ABG pH POC ABG pCO2 POC ABG pO2 Sodium 136 L Potassium Chloride Carbon Dioxide BUN Creatinine 0.5 L Glucose 110 H POC Glucose 132 H Lactic Acid Uric Acid Calcium 8.0 L Magnesium Total Bilirubin Direct Bilirubin AST ALT Alkaline Phosphatase Ammonia CK-MB (CK-2) Rel Index C-Reactive Protein Total Protein Albumin Vitamin B1 Vitamin B12 25-OH Vitamin D Total Free T4 T3 ([place]) Urine Creatinine Urine Total Protein Acetaminophen 07/08/18 07/08/18 07/08/18 14:27 17:11 21:20 WBC RBC Hgb Hct MCV MCH RDW Plt Count Lymph % (Auto) [place] % (Auto) Lymph # [place] # Seg Neutrophils % Seg Neuts % (Manual) Lymphocytes % (Manual) Monocytes % (Manual) Seg Neutrophils # Seg Neutrophils # Man Lymphocytes # (Manual) Monocytes # (Manual) POC ABG pH POC ABG pCO2 POC ABG pO2 Sodium Potassium Chloride Carbon Dioxide BUN Creatinine Glucose POC Glucose 133 H 113 H 126 H Lactic Acid Uric Acid Calcium Magnesium Total Bilirubin Direct Bilirubin AST ALT Alkaline Phosphatase Ammonia CK-MB (CK-2) Rel Index C-Reactive Protein Total Protein Albumin Vitamin B1 Vitamin B12 25-OH Vitamin D Total Free T4 T3 ([place]IL[place]) Urine Creatinine Urine Total Protein Acetaminophen 07/09/18 07/10/18 07/10/18 17:03 08:36 20:51 WBC RBC Hgb Hct MCV MCH RDW Plt Count Lymph % (Auto) [place] % (Auto) Lymph # [place] # Seg Neutrophils % Seg Neuts % (Manual) Lymphocytes % (Manual) Monocytes % (Manual) Seg Neutrophils # Seg Neutrophils # Man Lymphocytes # (Manual) Monocytes # (Manual) POC ABG pH POC ABG pCO2 POC ABG pO2 Sodium Potassium Chloride Carbon Dioxide BUN Creatinine Glucose POC Glucose 116 H 128 H 159 H Lactic Acid Uric Acid Calcium Magnesium Total Bilirubin Direct Bilirubin AST ALT Alkaline Phosphatase Ammonia CK-MB (CK-2) Rel Index C-Reactive Protein Total Protein Albumin Vitamin B1 Vitamin B12 25-OH Vitamin D Total Free T4 T3 ([place]) Urine Creatinine Urine Total Protein Acetaminophen 07/11/18 07/11/18 07/11/18 03:22 03:22 12:07 WBC RBC Hgb Hct MCV 78 L MCH 26 L RDW 17.4 H Plt Count Lymph % (Auto) [place] % (Auto) Lymph # [place] # Seg Neutrophils % Seg Neuts % (Manual) Lymphocytes % (Manual) Monocytes % (Manual) 13.0 H Seg Neutrophils # Seg Neutrophils # Man Lymphocytes # (Manual) Monocytes # (Manual) POC ABG pH POC ABG pCO2 POC ABG pO2 Sodium 135 L Potassium Chloride Carbon Dioxide BUN Creatinine 0.6 L Glucose 101 H POC Glucose 345 H Lactic Acid Uric Acid Calcium 8.0 L Magnesium Total Bilirubin 1.50 H Direct Bilirubin AST 63 H ALT Alkaline Phosphatase 350 H Ammonia CK-MB (CK-2) Rel Index C-Reactive Protein Total Protein 5.5 L Albumin 2.0 L Vitamin B1 Vitamin B12 25-OH Vitamin D Total Free T4 T3 ([facility]) Urine Creatinine Urine Total Protein Acetaminophen 07/12/18 07/12/18 07/12/18 07:14 12:05 12:25 WBC RBC Hgb Hct MCV MCH RDW Plt Count Lymph % (Auto) [place] % (Auto) Lymph # [place] # Seg Neutrophils % Seg Neuts % (Manual) Lymphocytes % (Manual) Monocytes % (Manual) Seg Neutrophils # Seg Neutrophils # Man Lymphocytes # (Manual) Monocytes # (Manual) POC ABG pH POC ABG pCO2 POC ABG pO2 Sodium Potassium Chloride Carbon Dioxide BUN Creatinine Glucose POC Glucose 65 L 168 H Lactic Acid Uric Acid Calcium Magnesium Total Bilirubin Direct Bilirubin AST ALT Alkaline Phosphatase Ammonia CK-MB (CK-2) Rel Index 6.0 H C-Reactive Protein Total Protein Albumin Vitamin B1 Vitamin B12 25-OH Vitamin D Total Free T4 T3 ([place]) Urine Creatinine Urine Total Protein Acetaminophen 07/12/18 07/12/18 07/12/18 16:21 18:12 22:40 WBC RBC Hgb Hct MCV MCH RDW Plt Count Lymph % (Auto) [place] % (Auto) Lymph # [place] # Seg Neutrophils % Seg Neuts % (Manual) Lymphocytes % (Manual) Monocytes % (Manual) Seg Neutrophils # Seg Neutrophils # Man Lymphocytes # (Manual) Monocytes # (Manual) POC ABG pH POC ABG pCO2 POC ABG pO2 Sodium Potassium Chloride Carbon Dioxide BUN Creatinine Glucose POC Glucose 109 H 111 H Lactic Acid Uric Acid Calcium Magnesium Total Bilirubin Direct Bilirubin AST ALT Alkaline Phosphatase Ammonia CK-MB (CK-2) Rel Index 6.2 H C-Reactive Protein Total Protein Albumin Vitamin B1 Vitamin B12 25-OH Vitamin D Total Free T4 T3 (GILSON) Urine Creatinine Urine Total Protein Acetaminophen 07/13/18 07/13/18 07/13/18 00:28 07:25 11:20 WBC RBC Hgb Hct MCV MCH RDW Plt Count Lymph % (Auto) [place] % (Auto) Lymph # [place] # Seg Neutrophils % Seg Neuts % (Manual) Lymphocytes % (Manual) Monocytes % (Manual) Seg Neutrophils # Seg Neutrophils # Man Lymphocytes # (Manual) Monocytes # (Manual) POC ABG pH POC ABG pCO2 POC ABG pO2 Sodium Potassium Chloride Carbon Dioxide BUN Creatinine Glucose POC Glucose 106 H 131 H Lactic Acid Uric Acid Calcium Magnesium Total Bilirubin Direct Bilirubin AST ALT Alkaline Phosphatase Ammonia CK-MB (CK-2) Rel Index 6.0 H C-Reactive Protein Total Protein Albumin Vitamin B1 Vitamin B12 25-OH Vitamin D Total Free T4 T3 (GILSON) Urine Creatinine Urine Total Protein Acetaminophen 07/13/18 16:44 WBC RBC Hgb Hct MCV MCH RDW Plt Count Lymph % (Auto) [place] % (Auto) Lymph # [place] # Seg Neutrophils % Seg Neuts % (Manual) Lymphocytes % (Manual) Monocytes % (Manual) Seg Neutrophils # Seg Neutrophils # Man Lymphocytes # (Manual) Monocytes # (Manual) POC ABG pH POC ABG pCO2 POC ABG pO2 Sodium Potassium Chloride Carbon Dioxide BUN Creatinine Glucose POC Glucose 127 H Lactic Acid Uric Acid Calcium Magnesium Total Bilirubin Direct Bilirubin AST ALT Alkaline Phosphatase Ammonia CK-MB (CK-2) Rel Index C-Reactive Protein Total Protein Albumin Vitamin B1 Vitamin B12 25-OH Vitamin D Total Free T4 T3 (GILSON) Urine Creatinine Urine Total Protein Acetaminophen Allied health notes reviewed: nursing
--- NOTE | 2018-07-14 08:50 | Progress Note ---
Assessment and Plan S/P Cardiac arrest thought secondary to Haldol treatment s/p cardioversion Hypokalemia -resolved Respiratory failure -extubated Chronic systolic heart failure Atrial fibrillation/flutter on metoprolol, digoxin and eliquis therapy Severe depression Altered mental status -improved Non-ischemic cardiomyopathy Lactic acidosis Hyponatremia Elevated bilirubin and alk phosphatase - chronic secondary to congestive hepatopathy Non-compliance with medical therapy and outpatient cardiac follow up. Echo 04/2018 at [facility] showed: a 4 chamber dilated cardiomyopathy, LVEF severely decreased, 20-25%. Moderate mitral regurgitation. Severe TR. RVSP is severely elevated. Medical therapy for chronic systolic left ventricular dysfunction as tolerated. We will continue a conservative cardiac management. Subjective Date of service: 07/14/18 Principal diagnosis: altered mental status, psychosis, chronic systolic heart failure, Interval history: Patient is resting in bed comfortably. Awaits placement. Objective Vital Signs Temp Pulse Pulse Pulse Resp Resp BP 07/14/18 08:23 93 H 20 07/14/18 08:08 97.3 F L 74 18 134/74 07/14/18 02:20 98.2 F 20 105/36 07/14/18 02:00 80 07/13/18 20:52 88 18 07/13/18 20:39 82 18 07/13/18 20:38 07/13/18 19:43 98.3 F 20 116/64 07/13/18 16:24 100/62 07/13/18 16:10 90 07/13/18 14:30 80 16 07/13/18 14:20 76 16 07/13/18 13:08 97.7 F 74 18 110/74 07/13/18 11:43 93 H 07/13/18 09:51 07/13/18 09:14 122/57 07/13/18 09:12 122/57 Pulse Ox 07/14/18 08:23 07/14/18 08:08 97 07/14/18 02:20 07/14/18 02:00 98 07/13/18 20:52 07/13/18 20:39 07/13/18 20:38 99 07/13/18 19:43 07/13/18 16:24 07/13/18 16:10 07/13/18 14:30 07/13/18 14:20 07/13/18 13:08 90 07/13/18 11:43 07/13/18 09:51 100 07/13/18 09:14 07/13/18 09:12 - Physical Examination General: No Apparent Distress HEENT: Positive: PERRL Neck: Positive: trachea midline Cardiac: Positive: irregularly irregular Lungs: Positive: Decreased Breath Sounds Neuro: Positive: Grossly Intact Abdomen: Positive: Active Bowel Sounds - Allied health notes Allied health notes reviewed: nursing
[2018-07-14] MEDS: DUONEB *Not for PRN Use IH SCH ×3 (09:47→20:04)
[2018-07-14] MEDS: HumaLOG SUB-Q SCH ×2 (09:48→17:24)
[2018-07-14] MEDS: ZESTRIL PO SCH (10:23)
[2018-07-14] MEDS: PEPCID PO SCH (10:24)
[2018-07-14] MEDS: ZOLOFT PO SCH (10:24)
[2018-07-14] MEDS: ELIQUIS PO SCH ×2 (10:24→23:04)
[2018-07-14] MEDS: LOPRESSOR PO SCH (10:24)
--- NOTE | 2018-07-14 15:51 | Progress Note ---
Assessment and Plan Assessment and plan: Chest pain resolved today Troponins neg, EKG Serial cardiac enzymes Nitrosublingual prn Acute Respiratory failure following Cardiac Arrest - ? PEA from hypoglycemia or Haldol administration- now off the ventilator and on nasal canula Patient improved s/p Cardiac arrest after Haldol: listed Haldol as an Allergy/Adverse drug. Severe NICM also contributed to the evant Patient stable Severe NICM, Acute on Chronic systolic CHF of EF 20-25%, - patient has been on hospice before, it appears she was discharged from home hospice. 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 Antibiotics discontinued Improved Persistently elevated Lactic acidosis:-Likely secondary to hypoperfusion- Improved Hypokalemia: Resolved DVT prophylaxis: Patient is on Eliquis Waiting for NH placement Patient feels better. Will benefit from Subacute Rehab placement as recommedned by PT History Interval history: Chest pain resolved No SOB currently feels better Hospitalist Physical - Physical exam Narrative exam: GEN: Not in acute distress, lying in bed, obese HEENT: Normocephalic, atraumatic, Neck: supple, No JVD heart: S1 and S2 reg, no murmurs, rubs or gallop Lungs: Clear to auscultation bilat, no crackles, no wheeze Abd:soft, non tender, non distended, normal bowel sounds Ext: No edema, no clubbing, no cyanosis Neuro:Awake,alert, moves all ext. - Constitutional Vitals: Temp Pulse Resp BP Pulse Ox 97.8 F 69 18 154/69 99 07/14/18 14:01 07/14/18 15:38 07/14/18 15:38 07/14/18 14:01 07/14/18 14:01 General appearance: Present: no acute distress, well-nourished Results - Labs CBC & Chem 7: 07/11/18 03:22 07/11/18 03:22 Labs: Laboratory Last Values WBC 5.3 K/mm3 (4.5-11.0) 07/11/18 03:22 RBC 4.54 M/mm3 (3.65-5.03) 07/11/18 03:22 Hgb 11.7 gm/dl (10.1-14.3) 07/11/18 03:22 Hct 35.3 % (30.3-42.9) 07/11/18 03:22 MCV 78 fl (79-97) L 07/11/18 03:22 MCH 26 pg (28-32) L 07/11/18 03:22 MCHC 33 % (30-34) 07/11/18 03:22 RDW 17.4 % (13.2-15.2) H 07/11/18 03:22 Plt Count 324 K/mm3 (140-440) 07/11/18 03:22 Lymph % (Auto) 20.7 % (13.4-35.0) 07/08/18 04:55 Stokes % (Auto) Investigator Utility Bill Complaints 07/11/18 03:22 Eos % (Auto) 1.3 % (0.0-4.3) 07/08/18 04:55 Baso % (Auto) 0.6 % (0.0-1.8) 07/08/18 04:55 Lymph # 1.8 K/mm3 (1.2-5.4) 07/08/18 04:55 Stokes # 1.3 K/mm3 (0.0-0.8) H 07/08/18 04:55 Eos # 0.1 K/mm3 (0.0-0.4) 07/08/18 04:55 Baso # 0.1 K/mm3 (0.0-0.1) 07/08/18 04:55 Add Manual Diff Complete 07/11/18 03:22 Total Counted 100 07/11/18 03:22 Seg Neutrophils % 62.6 % (40.0-70.0) 07/08/18 04:55 Seg Neuts % (Manual) 51.0 % (40.0-70.0) 07/11/18 03:22 Band Neutrophils % 0 % 07/11/18 03:22 Lymphocytes % (Manual) 34.0 % (13.4-35.0) 07/11/18 03:22 Reactive Lymphs % (Man) 2.0 % 07/11/18 03:22 Monocytes % (Manual) 13.0 % (0.0-7.3) H 07/11/18 03:22 Eosinophils % (Manual) 0 % (0.0-4.3) 07/11/18 03:22 Basophils % (Manual) 0 % (0.0-1.8) 07/11/18 03:22 Metamyelocytes % 0 % 07/11/18 03:22 Myelocytes % 0 % 07/11/18 03:22 Promyelocytes % 0 % 07/11/18 03:22 Blast Cells % 0 % 07/11/18 03:22 Nucleated RBC % Not Reportable 07/11/18 03:22 Seg Neutrophils # 5.3 K/mm3 (1.8-7.7) 07/08/18 04:55 Seg Neutrophils # Man 2.7 K/mm3 (1.8-7.7) 07/11/18 03:22 Band Neutrophils # 0.0 K/mm3 07/11/18 03:22 Lymphocytes # (Manual) 1.8 K/mm3 (1.2-5.4) 07/11/18 03:22 Abs React Lymphs (Man) 0.1 K/mm3 07/11/18 03:22 Monocytes # (Manual) 0.7 K/mm3 (0.0-0.8) 07/11/18 03:22 Eosinophils # (Manual) 0.0 K/mm3 (0.0-0.4) 07/11/18 03:22 Basophils # (Manual) 0.0 K/mm3 (0.0-0.1) 07/11/18 03:22 Metamyelocytes # 0.0 K/mm3 07/11/18 03:22 Myelocytes # 0.0 K/mm3 07/11/18 03:22 Promyelocytes # 0.0 K/mm3 07/11/18 03:22 Blast Cells # 0.0 K/mm3 07/11/18 03:22 WBC Morphology Not Reportable 07/11/18 03:22 Hypersegmented Neuts Not Reportable 07/11/18 03:22 Hyposegmented Neuts Not Reportable 07/11/18 03:22 Hypogranular Neuts Not Reportable 07/11/18 03:22 Smudge Cells Not Reportable 07/11/18 03:22 Toxic Granulation Not Reportable 07/11/18 03:22 Toxic Vacuolation Not Reportable 07/11/18 03:22 Dohle Bodies Not Reportable 07/11/18 03:22 Pelger-Huet Anomaly Not Reportable 07/11/18 03:22 Sushma Rods Not Reportable 07/11/18 03:22 Platelet Estimate Consistent w auto 07/11/18 03:22 Clumped Platelets Not Reportable 07/11/18 03:22 Plt Clumps, EDTA Not Reportable 07/11/18 03:22 Large Platelets Not Reportable 07/11/18 03:22 Giant Platelets Not Reportable 07/11/18 03:22 Platelet Satelliting Not Reportable 07/11/18 03:22 Plt Morphology Comment Not Reportable 07/11/18 03:22 RBC Morphology Not Reportable 07/11/18 03:22 Dimorphic RBCs Not Reportable 07/11/18 03:22 Polychromasia Not Reportable 07/11/18 03:22 Hypochromasia 2+ 07/11/18 03:22 Poikilocytosis 2+ 07/11/18 03:22 Anisocytosis 1+ 07/11/18 03:22 Microcytosis Not Reportable 07/11/18 03:22 Macrocytosis Not Reportable 07/11/18 03:22 Spherocytes Not Reportable 07/11/18 03:22 Pappenheimer Bodies Not Reportable 07/11/18 03:22 Sickle Cells Not Reportable 07/11/18 03:22 Target Cells 1+ 07/11/18 03:22 Tear Drop Cells Few 07/11/18 03:22 Ovalocytes Few 07/11/18 03:22 Helmet Cells Not Reportable 07/11/18 03:22 [place] Bodies Not Reportable 07/11/18 03:22 Lohn Rings Not Reportable 07/11/18 03:22 [place] Cells Not Reportable 07/11/18 03:22 Bite Cells Not Reportable 07/11/18 03:22 Crenated Cell Not Reportable 07/11/18 03:22 Elliptocytes Few 07/11/18 03:22 Acanthocytes (Spur) Not Reportable 07/11/18 03:22 Rouleaux Not Reportable 07/11/18 03:22 Hemoglobin C Crystals Not Reportable 07/11/18 03:22 Schistocytes Not Reportable 07/11/18 03:22 Malaria parasites Not Reportable 07/11/18 03:22 Saqib Bodies Not Reportable 07/11/18 03:22 Hem Pathologist Commnt No 07/11/18 03:22 POC ABG pH 7.552 (7.35-7.45) H 06/28/18 10:53 POC ABG pCO2 40.8 (35-45) 06/28/18 10:53 POC ABG pO2 83 (80-105) 06/28/18 10:53 POC ABG HCO3 35.9 (22-26 mml/L) 06/28/18 10:53 POC ABG Total CO2 37 (23-27mmol/L) 06/28/18 10:53 POC ABG O2 Sat 97 06/28/18 10:53 POC ABG Base Excess 14 ((-2) - (+3)mmol/L) 06/28/18 10:53 FiO2 30 % 06/28/18 10:53 Sodium 135 mmol/L (137-145) L 07/11/18 03:22 Potassium 3.9 mmol/L (3.6-5.0) 07/11/18 03:22 Chloride 99.7 mmol/L (98-107) 07/11/18 03:22 Carbon Dioxide 24 mmol/L (22-30) 07/11/18 03:22 Anion Gap 15 mmol/L 07/11/18 03:22 BUN 10 mg/dL (7-17) 07/11/18 03:22 Creatinine 0.6 mg/dL (0.7-1.2) L 07/11/18 03:22 Estimated GFR > 60 ml/min 07/11/18 03:22 BUN/Creatinine Ratio 17 % 07/11/18 03:22 Glucose 101 mg/dL (65-100) H 07/11/18 03:22 POC Glucose 120 (70-105) H 07/14/18 11:30 Hemoglobin A1c 5.5 % (4-6) 06/17/18 15:08 Osmolality 276 Mosm/kg 06/20/18 07:31 Lactic Acid 1.30 mmol/L (0.7-2.0) 07/02/18 23:33 Uric Acid 9.2 mg/dL (3.5-7.6) H 06/21/18 16:27 Calcium 8.0 mg/dL (8.4-10.2) L 07/11/18 03:22 Phosphorus 2.50 mg/dL (2.5-4.5) 06/20/18 07:31 Magnesium 1.50 mg/dL (1.7-2.3) L 07/03/18 08:14 Total Bilirubin 1.50 mg/dL (0.1-1.2) H 07/11/18 03:22 Direct Bilirubin 1.6 mg/dL (0-0.2) H 06/17/18 11:00 Indirect Bilirubin -1.4 mg/dL 06/17/18 11:00 AST 63 units/L (5-40) H 07/11/18 03:22 ALT 53 units/L (7-56) 07/11/18 03:22 Alkaline Phosphatase 350 units/L (35-129) H 07/11/18 03:22 Ammonia 38.0 umol/L (25-60) 06/25/18 16:02 Total Creatine Kinase 43 units/L (30-135) 07/13/18 00:28 CK-MB (CK-2) 2.6 ng/mL (0.0-4.0) 07/13/18 00:28 CK-MB (CK-2) Rel Index 6.0 (0-4) H 07/13/18 00:28 Troponin T 0.017 ng/mL (0.00-0.029) 07/13/18 00:28 C-Reactive Protein 4.80 mg/dL (0.00-1.30) H 06/28/18 05:00 Total Protein 5.5 g/dL (6.3-8.2) L 07/11/18 03:22 Albumin 2.0 g/dL (3.9-5) L 07/11/18 03:22 Albumin/Globulin Ratio 0.6 % 07/11/18 03:22 Vitamin B1 <6 nmol/L (8-30) L 06/21/18 16:27 Vitamin B12 1598 pg/mL (211-911) H 06/20/18 20:53 25-OH Vitamin D Total 10 ng/mL (30-100) L 06/20/18 20:53 25-Hydroxy Vitamin D2 . 06/20/18 20:53 25-Hydroxy Vitamin D3 . 06/20/18 20:53 Folate 14.18 ng/mL (7.3-26.0) 06/20/18 20:53 TSH 1.540 mlU/mL (0.270-4.200) 06/27/18 09:29 Free T4 1.78 ng/dL (0.76-1.46) H 06/27/18 09:29 T3 (GILSON) 58 ng/dL (76-181) L 06/20/18 16:51 Urine Color Caryl (Yellow) 06/16/18 Unknown Urine Turbidity Clear (Clear) 06/16/18 Unknown Urine pH 5.0 (5.0-7.0) 06/16/18 Unknown Ur Specific [place] 1.025 (1.003-1.030) 06/16/18 Unknown Urine Protein 100 mg/dl mg/dL (Negative) 06/16/18 Unknown Urine Glucose (UA) 50 mg/dL (Negative) 06/16/18 Unknown Urine Ketones Neg mg/dL (Negative) 06/16/18 Unknown Urine Blood Neg (Negative) 06/16/18 Unknown Urine Nitrite Neg (Negative) 06/16/18 Unknown Urine Bilirubin Neg (Negative) 06/16/18 Unknown Urine Urobilinogen 4.0 mg/dL (<2.0) 06/16/18 Unknown Ur Leukocyte Esterase Neg (Negative) 06/16/18 Unknown Urine WBC (Auto) 4.0 /HPF (0.0-6.0) 06/16/18 Unknown Urine RBC (Auto) 5.0 /HPF (0.0-6.0) 06/16/18 Unknown U Epithel Cells (Auto) 7.0 /HPF (0-13.0) 06/16/18 Unknown Hyaline Casts 49 /LPF 06/16/18 Unknown Urine Mucus Few /HPF 06/16/18 Unknown Urine Osmolality 413 Mosm/kg 06/19/18 Unknown Urine Creatinine 61.7 mg/dL (0.1-20.0) H 06/19/18 Unknown Urine Total Protein 32 mg/dL (5-11.8) H 06/19/18 Unknown Salicylates 5.5 mg/dL (2.8-20.0) 06/16/18 21:43 Urine Opiates Screen Presumptive negative 06/16/18 Unknown Urine Methadone Screen Presumptive negative 06/16/18 Unknown Acetaminophen < 5.0 ug/mL (10.0-30.0) L 06/16/18 21:43 Ur Barbiturates Screen Presumptive negative 06/16/18 Unknown Ur Phencyclidine Scrn Presumptive negative 06/16/18 Unknown Ur Amphetamines Screen Presumptive negative 06/16/18 Unknown U Benzodiazepines Scrn Presumptive negative 06/16/18 Unknown Urine Cocaine Screen Presumptive negative 06/16/18 Unknown U Marijuana (THC) Screen Presumptive negative 06/16/18 Unknown Drugs of Abuse Note Disclamer 06/16/18 Unknown Plasma/Serum Alcohol < 0.01 % (0-0.07) 06/16/18 21:43 Thyroglobulin Antibody See scanned result 06/20/18 16:51 Thyroid Peroxidase Ab See scanned result 06/20/18 16:51 HIV 1&2 Antibody Rapid Non react (Non React) 06/21/18 16:27 HIV P24 Antigen Non react (Non React) 06/21/18 16:27 Active Medications - Current Medications Current Medications: Generic Name Dose Route Start Last Admin Trade Name Freq PRN Reason Stop Dose Admin Acetaminophen 650 mg 06/17/18 03:33 07/11/18 02:57 Tylenol PO 650 mg Q4H PRN Administration Fever >101 Albuterol/Ipratropium 1 ampul 06/27/18 14:00 07/14/18 15:28 Duoneb *Not For Prn Use* IH 1 ampul TIDRT JEANETTE Administration Apixaban 5 mg 06/20/18 16:00 07/14/18 10:24 Eliquis PO 5 mg Q12HR JEANETTE Administration Protocol Atorvastatin Calcium 20 mg 06/19/18 22:00 07/13/18 22:23 Lipitor PO 20 mg QHS JEANETTE Administration Dextrose 50 ml 07/01/18 11:50 07/12/18 08:58 D50w (25gm) Syringe IV 50 ml PRN PRN Administration Hypoglycemia Digoxin 0.125 mg 06/24/18 17:00 07/13/18 16:10 Lanoxin PO 0.125 mg DAILY@1700 JEANETTE Administration Famotidine 20 mg 06/27/18 12:00 07/14/18 10:24 Pepcid PO 20 mg DAILY JEANETTE Administration Furosemide 20 mg 07/05/18 18:00 07/13/18 17:15 Lasix PO 20 mg 0600,1800 JEANETTE Administration Insulin Human Lispro 0 unit 07/01/18 16:30 07/14/18 09:48 Humalog SUB-Q Not Given ACHS [facility] Protocol Lactulose 20 gm 07/04/18 12:00 Cephulac PO Q6HR PRN CONSTIPATION Lisinopril 2.5 mg 07/12/18 10:00 07/14/18 10:23 Zestril PO 2.5 mg QDAY JEANETTE Administration Metoprolol Tartrate 25 mg 06/25/18 09:00 07/14/18 10:24 Lopressor PO 25 mg Q8H JEANETTE Administration Nitroglycerin 0.4 mg 07/12/18 12:22 07/12/18 12:32 Nitrostat SL 0.4 mg .Q5MIN PRN Administration Chest Pain Ondansetron HCl 4 mg 06/17/18 03:24 Zofran IV Q8H PRN Nausea And Vomiting Sertraline HCl 50 mg 06/24/18 10:00 07/14/18 10:24 Zoloft PO 50 mg DAILY JEANETTE Administration Nutrition/Malnutrition Assess - Dietary Evaluation Nutrition/Malnutrition Findings: Nutrition Notes Start: 06/24/18 15:14 Freq: Status: Active Protocol: Document 07/14/18 14:54 RM (Rec: 07/14/18 15:03 RM [id number]) Nutrition Notes Initial or Follow up Reassessment Current Diagnosis Acute Kidney Injury, Hypertension,Heart Failure, Respiratory Failure Other Pertinent Diagnosis Severe depression,Dementia, s/ p cardiac arrest, psychosis, AMS Current Diet Mechanical Soft w/chopped meat Labs/Tests No recent labs Pertinent Medications Lasix Height 5 ft 5 in Weight 82.3 kg [place] Body Weight (kg) 56.81 BMI 30.2 Subjective/Other Information Per tech pt sips the Ensure Clear. Recorded PO intake 75% X 2 meals. Percent of energy/protein needs met: 98%/94% Burn Absent Trauma Absent #1 Nutrition Diagnosis Inadequate oral intake As Evidenced by Signs and Symptoms pt meeting 98% of calorie and 94% of protein needs Diagnosis Progress(for reassessment Resolved documentation) Is patient on ventilator? No Is Patient Ambulatory and/or Out of Bed No REE-([facility] Ezra-confined to bed) [phone] Calculation Used for Recommendations [facility] Additional Notes Pro needs 1-1.2g/k-96 g/ day Fluid needs 1ml/kcall Nutrition Intervention Change Diet Order: Continue current Add Supplement/Snack (indicate name/kcal Ensure Clear 1 daily /protein ) Provides kCal: 240 Provides Protein (gm) 8 Goal #1 Continue to meet at least 75% of energy and protein needs via PO intake Anticipated Discharge Needs: Mechanical Soft Follow-Up By: 07/20/18 Additional Comments Follow for PO and ONS intakes
--- NOTE | 2018-07-14 17:02 | Progress Note ---
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 Bili Likely congestive hepatopathy, Severe protein calorie malnutrition Hypokalemia -ABGs and CXR prn -Anticoagulated on Eliquis -Supplemental oxygen to keep O2 sats>90% -Accuchecks with glycemic control Target blood glucose of 140-180mg/dl -Cardioprotective measures, heart failure measures -Psychosis management per Psych services -PT/OT as tolerated -Aspiration precautions -Glycemic control -Influenza and pneumonia vaccinations per protocol -Continue all other care per primary service Discharge planning CONDITION: FAIR PROGNOSIS: POOR SKILLED NURSING CODE STATUS: FULL CODE PER DOCUMENTATION Subjective Date of service: 07/14/18 Principal diagnosis: altered mental status, psychosis, chronic systolic heart failure, Interval history: Patient is seen today for: s/p Cardiopulmonary arrest; acute hypoxemic respiratory failure; Cardiomyopathy; Psychosis Seen and examined at bedside; 24-hour events reviewed; nursing and respiratory care staff consulted; Vitals, labs, medications, chart reviewed; no adverse overnight events reported to me; On going agitation with intermittent confusion. Denies any chest pain, no shortness of breath, on oxygen at 2LNC Objective Vital Signs - 12hr 07/14/18 07/14/18 07/14/18 08:08 08:23 10:00 Temperature 97.3 F L Pulse Rate 74 Pulse Rate [ 93 H From Monitor] Pulse Rate [ Posterior Bilateral Throughout] Respiratory 18 20 Rate Respiratory Rate [Posterior Bilateral Throughout] Blood Pressure 134/74 O2 Sat by Pulse 97 96 Oximetry 07/14/18 07/14/18 07/14/18 10:23 10:24 11:00 Temperature Pulse Rate 98 H Pulse Rate [ From Monitor] Pulse Rate [ Posterior Bilateral Throughout] Respiratory Rate Respiratory Rate [Posterior Bilateral Throughout] Blood Pressure 134/74 134/74 O2 Sat by Pulse Oximetry 07/14/18 07/14/18 07/14/18 13:59 14:01 15:28 Temperature 97.8 F Pulse Rate 92 H Pulse Rate [ From Monitor] Pulse Rate [ 68 Posterior Bilateral Throughout] Respiratory 18 Rate Respiratory 18 Rate [Posterior Bilateral Throughout] Blood Pressure 154/69 O2 Sat by Pulse 87 99 Oximetry 07/14/18 15:38 Temperature Pulse Rate Pulse Rate [ From Monitor] Pulse Rate [ 69 Posterior Bilateral Throughout] Respiratory Rate Respiratory 18 Rate [Posterior Bilateral Throughout] Blood Pressure O2 Sat by Pulse Oximetry Constitutional: no acute distress, asleep, other (Confusing at times.) Eyes: non-icteric, other (Pupils 4mm, sluggichly reacting to light) ENT: oropharynx dry, other (extubated) Neck: supple, no lymphadenopathy, no JVD, other (no thyromegaly) Effort: normal Ascultation: Bilateral: diminished breath sounds, rales Percussion: Bilateral: not dull Cardiovascular: irregular rhythm, other (S1,S2,) Gastrointestinal: normoactive bowel sounds, soft, non-tender, non-distended Integumentary: rash (exematoid rash to upper chest) Extremities: no cyanosis, no edema, pulses normal, no ischemia or petechiae Neurologic: normal mental status, non-focal exam (grossly), pupils equal and round, CN II-XII normal Psychiatric: depressed CBC and BMP: 07/11/18 03:22 07/11/18 03:22 ABG, PT/INR, D-dimer: ABG POC ABG pH 7.552 (7.35-7.45) H 06/28/18 10:53 POC ABG pCO2 40.8 (35-45) 06/28/18 10:53 POC ABG pO2 83 (80-105) 06/28/18 10:53 POC ABG HCO3 35.9 (22-26 mml/L) 06/28/18 10:53 POC ABG Total CO2 37 (23-27mmol/L) 06/28/18 10:53 POC ABG O2 Sat 97 06/28/18 10:53 Abnormal lab findings: Abnormal Labs 06/16/18 06/16/18 06/16/18 21:05 21:43 21:43 WBC RBC Hgb Hct MCV MCH RDW Plt Count Lymph % (Auto) [place] % (Auto) Lymph # [place] # Seg Neutrophils % Seg Neuts % (Manual) Lymphocytes % (Manual) Monocytes % (Manual) Seg Neutrophils # Seg Neutrophils # Man Lymphocytes # (Manual) Monocytes # (Manual) POC ABG pH POC ABG pCO2 POC ABG pO2 Sodium 129 L Potassium Chloride 95.3 L Carbon Dioxide 14 L BUN 23 H Creatinine Glucose 146 H POC Glucose < 40 L Lactic Acid Uric Acid Calcium Magnesium Total Bilirubin Direct Bilirubin AST ALT Alkaline Phosphatase Ammonia CK-MB (CK-2) Rel Index C-Reactive Protein Total Protein Albumin Vitamin B1 Vitamin B12 25-OH Vitamin D Total Free T4 T3 (GILSON) Urine Creatinine Urine Total Protein Acetaminophen < 5.0 L 06/16/18 06/16/18 06/16/18 21:43 21:43 22:27 WBC RBC 5.70 H Hgb Hct 44.6 H MCV 78 L MCH 25 L RDW 18.7 H Plt Count Lymph % (Auto) [place] % (Auto) Lymph # [place] # Seg Neutrophils % 78.8 H Seg Neuts % (Manual) Lymphocytes % (Manual) Monocytes % (Manual) Seg Neutrophils # Seg Neutrophils # Man Lymphocytes # (Manual) Monocytes # (Manual) POC ABG pH POC ABG pCO2 POC ABG pO2 Sodium Potassium Chloride Carbon Dioxide BUN Creatinine Glucose POC Glucose 121 H Lactic Acid Uric Acid Calcium Magnesium Total Bilirubin Direct Bilirubin AST ALT Alkaline Phosphatase Ammonia CK-MB (CK-2) Rel Index C-Reactive Protein Total Protein Albumin Vitamin B1 Vitamin B12 25-OH Vitamin D Total Free T4 1.87 H T3 (GILSON) Urine Creatinine Urine Total Protein Acetaminophen 06/16/18 06/16/18 06/17/18 22:33 23:43 03:56 WBC RBC Hgb Hct MCV MCH RDW Plt Count Lymph % (Auto) [place] % (Auto) Lymph # [place] # Seg Neutrophils % Seg Neuts % (Manual) Lymphocytes % (Manual) Monocytes % (Manual) Seg Neutrophils # Seg Neutrophils # Man Lymphocytes # (Manual) Monocytes # (Manual) POC ABG pH POC ABG pCO2 POC ABG pO2 Sodium Potassium Chloride Carbon Dioxide BUN Creatinine Glucose POC Glucose Lactic Acid 4.40 H* 4.30 H* 3.10 H* Uric Acid Calcium Magnesium Total Bilirubin Direct Bilirubin AST ALT Alkaline Phosphatase Ammonia CK-MB (CK-2) Rel Index C-Reactive Protein Total Protein Albumin Vitamin B1 Vitamin B12 25-OH Vitamin D Total Free T4 T3 (GILSON) Urine Creatinine Urine Total Protein Acetaminophen 06/17/18 06/17/18 06/17/18 08:35 08:40 11:00 WBC RBC Hgb Hct MCV MCH RDW Plt Count Lymph % (Auto) [place] % (Auto) Lymph # [place] # Seg Neutrophils % Seg Neuts % (Manual) Lymphocytes % (Manual) Monocytes % (Manual) Seg Neutrophils # Seg Neutrophils # Man Lymphocytes # (Manual) Monocytes # (Manual) POC ABG pH POC ABG pCO2 POC ABG pO2 Sodium Potassium Chloride Carbon Dioxide BUN Creatinine Glucose POC Glucose 56 L Lactic Acid 2.70 H* 3.40 H* Uric Acid Calcium Magnesium Total Bilirubin Direct Bilirubin AST ALT Alkaline Phosphatase Ammonia CK-MB (CK-2) Rel Index C-Reactive Protein Total Protein Albumin Vitamin B1 Vitamin B12 25-OH Vitamin D Total Free T4 T3 (GILSON) Urine Creatinine Urine Total Protein Acetaminophen 06/17/18 06/17/18 06/17/18 11:00 11:00 11:00 WBC 11.9 H RBC 5.25 H Hgb Hct MCV MCH 25 L RDW 18.6 H Plt Count Lymph % (Auto) [place] % (Auto) Lymph # [place] # Seg Neutrophils % Seg Neuts % (Manual) Lymphocytes % (Manual) Monocytes % (Manual) Seg Neutrophils # Seg Neutrophils # Man Lymphocytes # (Manual) Monocytes # (Manual) POC ABG pH POC ABG pCO2 POC ABG pO2 Sodium 128 L Potassium Chloride 95.6 L Carbon Dioxide 15 L BUN 22 H Creatinine Glucose 110 H POC Glucose Lactic Acid Uric Acid Calcium 8.3 L Magnesium Total Bilirubin Direct Bilirubin 1.6 H AST 66 H ALT Alkaline Phosphatase 178 H Ammonia CK-MB (CK-2) Rel Index C-Reactive Protein Total Protein 4.7 L Albumin 2.4 L Vitamin B1 Vitamin B12 25-OH Vitamin D Total Free T4 T3 (GILSON) Urine Creatinine Urine Total Protein Acetaminophen 06/17/18 06/17/18 06/17/18 15:08 15:08 23:00 WBC RBC Hgb Hct MCV MCH RDW Plt Count Lymph % (Auto) [place] % (Auto) Lymph # [place] # Seg Neutrophils % Seg Neuts % (Manual) Lymphocytes % (Manual) Monocytes % (Manual) Seg Neutrophils # Seg Neutrophils # Man Lymphocytes # (Manual) Monocytes # (Manual) POC ABG pH POC ABG pCO2 POC ABG pO2 Sodium Potassium Chloride Carbon Dioxide BUN Creatinine Glucose POC Glucose Lactic Acid 4.00 H* Uric Acid Calcium Magnesium Total Bilirubin Direct Bilirubin AST ALT Alkaline Phosphatase Ammonia 10.0 L CK-MB (CK-2) Rel Index C-Reactive Protein Total Protein Albumin Vitamin B1 Vitamin B12 25-OH Vitamin D Total Free T4 1.53 H T3 (GILSON) Urine Creatinine Urine Total Protein Acetaminophen 06/18/18 06/18/18 06/18/18 08:59 08:59 12:49 WBC RBC 5.29 H Hgb Hct MCV 78 L MCH 25 L RDW 18.4 H Plt Count Lymph % (Auto) [place] % (Auto) Lymph # [place] # Seg Neutrophils % Seg Neuts % (Manual) Lymphocytes % (Manual) Monocytes % (Manual) Seg Neutrophils # Seg Neutrophils # Man Lymphocytes # (Manual) Monocytes # (Manual) POC ABG pH POC ABG pCO2 POC ABG pO2 Sodium 128 L Potassium 5.9 H D Chloride 96.1 L Carbon Dioxide 20 L BUN 22 H Creatinine Glucose POC Glucose 60 L Lactic Acid Uric Acid Calcium Magnesium Total Bilirubin Direct Bilirubin AST ALT Alkaline Phosphatase Ammonia CK-MB (CK-2) Rel Index C-Reactive Protein Total Protein Albumin Vitamin B1 Vitamin B12 25-OH Vitamin D Total Free T4 T3 (GILSON) Urine Creatinine Urine Total Protein Acetaminophen 06/18/18 06/19/18 06/19/18 21:28 12:14 13:23 WBC RBC Hgb Hct MCV MCH RDW Plt Count Lymph % (Auto) [place] % (Auto) Lymph # [place] # Seg Neutrophils % Seg Neuts % (Manual) Lymphocytes % (Manual) Monocytes % (Manual) Seg Neutrophils # Seg Neutrophils # Man Lymphocytes # (Manual) Monocytes # (Manual) POC ABG pH POC ABG pCO2 POC ABG pO2 Sodium 122 L Potassium 5.4 H Chloride 95.0 L Carbon Dioxide 13 L D BUN 21 H Creatinine Glucose 119 H POC Glucose 114 H Lactic Acid Uric Acid Calcium 8.3 L Magnesium Total Bilirubin Direct Bilirubin AST ALT Alkaline Phosphatase Ammonia CK-MB (CK-2) Rel Index C-Reactive Protein Total Protein Albumin Vitamin B1 Vitamin B12 25-OH Vitamin D Total Free T4 T3 (GILSON) Urine Creatinine Urine Total Protein Acetaminophen 06/19/18 06/19/18 06/19/18 14:47 16:38 22:42 WBC RBC 5.51 H Hgb Hct 45.3 H MCV MCH 25 L RDW 18.6 H Plt Count Lymph % (Auto) [place] % (Auto) Lymph # [place] # Seg Neutrophils % Seg Neuts % (Manual) Lymphocytes % (Manual) Monocytes % (Manual) Seg Neutrophils # Seg Neutrophils # Man Lymphocytes # (Manual) Monocytes # (Manual) POC ABG pH POC ABG pCO2 POC ABG pO2 Sodium Potassium Chloride Carbon Dioxide BUN Creatinine Glucose POC Glucose 108 H 49 L Lactic Acid Uric Acid Calcium Magnesium Total Bilirubin Direct Bilirubin AST ALT Alkaline Phosphatase Ammonia CK-MB (CK-2) Rel Index C-Reactive Protein Total Protein Albumin Vitamin B1 Vitamin B12 25-OH Vitamin D Total Free T4 T3 (GILSON) Urine Creatinine Urine Total Protein Acetaminophen 06/19/18 06/20/18 06/20/18 Unknown 07:31 16:51 WBC RBC Hgb Hct MCV MCH RDW Plt Count Lymph % (Auto) [place] % (Auto) Lymph # [place] # Seg Neutrophils % Seg Neuts % (Manual) Lymphocytes % (Manual) Monocytes % (Manual) Seg Neutrophils # Seg Neutrophils # Man Lymphocytes # (Manual) Monocytes # (Manual) POC ABG pH POC ABG pCO2 POC ABG pO2 Sodium 132 L D Potassium Chloride 94.3 L Carbon Dioxide BUN 20 H Creatinine Glucose POC Glucose Lactic Acid Uric Acid 8.6 H Calcium Magnesium 1.30 L Total Bilirubin Direct Bilirubin AST ALT Alkaline Phosphatase Ammonia CK-MB (CK-2) Rel Index C-Reactive Protein Total Protein Albumin Vitamin B1 Vitamin B12 25-OH Vitamin D Total Free T4 T3 (GILSON) 58 L Urine Creatinine 61.7 H Urine Total Protein 32 H Acetaminophen 06/20/18 06/20/18 06/21/18 20:53 20:53 16:27 WBC RBC Hgb Hct MCV MCH RDW Plt Count Lymph % (Auto) [place] % (Auto) Lymph # [place] # Seg Neutrophils % Seg Neuts % (Manual) Lymphocytes % (Manual) Monocytes % (Manual) Seg Neutrophils # Seg Neutrophils # Man Lymphocytes # (Manual) Monocytes # (Manual) POC ABG pH POC ABG pCO2 POC ABG pO2 Sodium Potassium Chloride Carbon Dioxide BUN Creatinine Glucose POC Glucose Lactic Acid Uric Acid 9.2 H Calcium Magnesium Total Bilirubin Direct Bilirubin AST ALT Alkaline Phosphatase Ammonia CK-MB (CK-2) Rel Index C-Reactive Protein Total Protein Albumin Vitamin B1 Vitamin B12 1598 H 25-OH Vitamin D Total 10 L Free T4 T3 (GILSON) Urine Creatinine Urine Total Protein Acetaminophen 06/21/18 06/21/18 06/21/18 16:27 16:27 16:27 WBC RBC 5.26 H Hgb Hct MCV 77 L MCH 26 L RDW 17.7 H Plt Count Lymph % (Auto) [place] % (Auto) Lymph # [place] # Seg Neutrophils % Seg Neuts % (Manual) Lymphocytes % (Manual) Monocytes % (Manual) Seg Neutrophils # Seg Neutrophils # Man Lymphocytes # (Manual) Monocytes # (Manual) POC ABG pH POC ABG pCO2 POC ABG pO2 Sodium 130 L Potassium Chloride 95.6 L Carbon Dioxide BUN 24 H Creatinine Glucose POC Glucose Lactic Acid Uric Acid Calcium Magnesium Total Bilirubin Direct Bilirubin AST ALT Alkaline Phosphatase Ammonia CK-MB (CK-2) Rel Index C-Reactive Protein Total Protein Albumin Vitamin B1 <6 L Vitamin B12 25-OH Vitamin D Total Free T4 T3 (GILSON) Urine Creatinine Urine Total Protein Acetaminophen 06/21/18 06/22/18 06/23/18 21:44 21:42 14:54 WBC RBC 5.07 H Hgb Hct MCV 78 L MCH 25 L RDW 18.5 H Plt Count Lymph % (Auto) [place] % (Auto) 12.3 H Lymph # 1.0 L [place] # Seg Neutrophils % Seg Neuts % (Manual) Lymphocytes % (Manual) Monocytes % (Manual) Seg Neutrophils # Seg Neutrophils # Man Lymphocytes # (Manual) Monocytes # (Manual) POC ABG pH POC ABG pCO2 POC ABG pO2 Sodium Potassium Chloride Carbon Dioxide BUN Creatinine Glucose POC Glucose 126 H 114 H Lactic Acid Uric Acid Calcium Magnesium Total Bilirubin Direct Bilirubin AST ALT Alkaline Phosphatase Ammonia CK-MB (CK-2) Rel Index C-Reactive Protein Total Protein Albumin Vitamin B1 Vitamin B12 25-OH Vitamin D Total Free T4 T3 (GILSON) Urine Creatinine Urine Total Protein Acetaminophen 06/23/18 06/25/18 06/25/18 14:54 00:00 00:00 WBC 3.6 L RBC 5.31 H Hgb Hct MCV 77 L MCH 26 L RDW 19.0 H Plt Count Lymph % (Auto) [place] % (Auto) 10.2 H Lymph # [place] # Seg Neutrophils % Seg Neuts % (Manual) Lymphocytes % (Manual) Monocytes % (Manual) Seg Neutrophils # Seg Neutrophils # Man Lymphocytes # (Manual) Monocytes # (Manual) POC ABG pH POC ABG pCO2 POC ABG pO2 Sodium 132 L 131 L Potassium 3.5 L Chloride 91.5 L 93.5 L Carbon Dioxide BUN 19 H 21 H Creatinine Glucose POC Glucose Lactic Acid Uric Acid Calcium 8.1 L Magnesium Total Bilirubin 2.80 H 2.70 H Direct Bilirubin AST 52 H 81 H ALT Alkaline Phosphatase 231 H 243 H Ammonia CK-MB (CK-2) Rel Index C-Reactive Protein Total Protein 5.5 L 5.5 L Albumin 2.8 L 2.7 L Vitamin B1 Vitamin B12 25-OH Vitamin D Total Free T4 T3 (GILSON) Urine Creatinine Urine Total Protein Acetaminophen 06/25/18 06/25/18 06/25/18 16:02 16:02 16:18 WBC 3.9 L RBC 5.78 H Hgb 14.6 H Hct 45.4 H MCV MCH 25 L RDW 19.2 H Plt Count Lymph % (Auto) [place] % (Auto) Lymph # [place] # Seg Neutrophils % Seg Neuts % (Manual) Lymphocytes % (Manual) Monocytes % (Manual) Seg Neutrophils # Seg Neutrophils # Man Lymphocytes # (Manual) 1.1 L Monocytes # (Manual) POC ABG pH POC ABG pCO2 POC ABG pO2 Sodium 131 L Potassium Chloride 90.0 L Carbon Dioxide BUN 25 H Creatinine 1.4 H Glucose POC Glucose Lactic Acid 4.00 H* Uric Acid Calcium Magnesium Total Bilirubin 3.10 H Direct Bilirubin AST 68 H ALT Alkaline Phosphatase 296 H Ammonia CK-MB (CK-2) Rel Index C-Reactive Protein Total Protein 6.1 L Albumin 3.3 L Vitamin B1 Vitamin B12 25-OH Vitamin D Total Free T4 T3 (GILSON) Urine Creatinine Urine Total Protein Acetaminophen 06/25/18 06/26/18 06/26/18 21:06 11:33 11:37 WBC RBC Hgb Hct MCV MCH 26 L RDW 19.2 H Plt Count 139 L Lymph % (Auto) [place] % (Auto) Lymph # [place] # Seg Neutrophils % Seg Neuts % (Manual) 85.0 H Lymphocytes % (Manual) 6.0 L Monocytes % (Manual) Seg Neutrophils # Seg Neutrophils # Man 8.0 H Lymphocytes # (Manual) 0.6 L Monocytes # (Manual) POC ABG pH POC ABG pCO2 POC ABG pO2 Sodium Potassium Chloride Carbon Dioxide BUN Creatinine Glucose POC Glucose < 40 L Lactic Acid 6.40 H* Uric Acid Calcium Magnesium Total Bilirubin Direct Bilirubin AST ALT Alkaline Phosphatase Ammonia CK-MB (CK-2) Rel Index C-Reactive Protein Total Protein Albumin Vitamin B1 Vitamin B12 25-OH Vitamin D Total Free T4 T3 (GILSON) Urine Creatinine Urine Total Protein Acetaminophen 06/26/18 06/26/18 06/26/18 11:37 11:51 11:59 WBC RBC Hgb Hct MCV MCH RDW Plt Count Lymph % (Auto) [place] % (Auto) Lymph # [place] # Seg Neutrophils % Seg Neuts % (Manual) Lymphocytes % (Manual) Monocytes % (Manual) Seg Neutrophils # Seg Neutrophils # Man Lymphocytes # (Manual) Monocytes # (Manual) POC ABG pH 7.029 L POC ABG pCO2 POC ABG pO2 73 L Sodium 129 L Potassium Chloride 87.0 L Carbon Dioxide 11 L D BUN 31 H Creatinine 1.9 H Glucose 206 H POC Glucose 253 H Lactic Acid Uric Acid Calcium 7.9 L Magnesium Total Bilirubin 2.90 H Direct Bilirubin AST 98 H ALT Alkaline Phosphatase 196 H Ammonia CK-MB (CK-2) Rel Index C-Reactive Protein Total Protein 4.3 L D Albumin 2.2 L Vitamin B1 Vitamin B12 25-OH Vitamin D Total Free T4 T3 (GILSON) Urine Creatinine Urine Total Protein Acetaminophen 06/26/18 06/26/18 06/26/18 14:54 15:08 15:10 WBC 14.2 H RBC 5.66 H Hgb 14.5 H Hct 45.6 H D MCV MCH 26 L RDW 19.4 H Plt Count Lymph % (Auto) [place] % (Auto) Lymph # [place] # Seg Neutrophils % Seg Neuts % (Manual) 88.0 H Lymphocytes % (Manual) 5.0 L Monocytes % (Manual) Seg Neutrophils # Seg Neutrophils # Man 12.5 H Lymphocytes # (Manual) 0.7 L Monocytes # (Manual) 0.9 H POC ABG pH POC ABG pCO2 POC ABG pO2 Sodium Potassium Chloride Carbon Dioxide BUN Creatinine Glucose POC Glucose 172 H Lactic Acid 11.90 H* Uric Acid Calcium Magnesium Total Bilirubin Direct Bilirubin AST ALT Alkaline Phosphatase Ammonia CK-MB (CK-2) Rel Index C-Reactive Protein Total Protein Albumin Vitamin B1 Vitamin B12 25-OH Vitamin D Total Free T4 T3 (GILSON) Urine Creatinine Urine Total Protein Acetaminophen 06/26/18 06/26/18 06/26/18 16:01 18:47 20:55 WBC RBC Hgb Hct MCV MCH RDW Plt Count Lymph % (Auto) [place] % (Auto) Lymph # [place] # Seg Neutrophils % Seg Neuts % (Manual) Lymphocytes % (Manual) Monocytes % (Manual) Seg Neutrophils # Seg Neutrophils # Man Lymphocytes # (Manual) Monocytes # (Manual) POC ABG pH POC ABG pCO2 34.0 L POC ABG pO2 Sodium Potassium Chloride Carbon Dioxide BUN Creatinine Glucose POC Glucose 183 H 131 H Lactic Acid Uric Acid Calcium Magnesium Total Bilirubin Direct Bilirubin AST ALT Alkaline Phosphatase Ammonia CK-MB (CK-2) Rel Index C-Reactive Protein Total Protein Albumin Vitamin B1 Vitamin B12 25-OH Vitamin D Total Free T4 T3 (GILSON) Urine Creatinine Urine Total Protein Acetaminophen 06/26/18 06/27/18 06/27/18 21:55 09:29 09:29 WBC RBC Hgb Hct MCV MCH RDW Plt Count Lymph % (Auto) [place] % (Auto) Lymph # [place] # Seg Neutrophils % Seg Neuts % (Manual) Lymphocytes % (Manual) Monocytes % (Manual) Seg Neutrophils # Seg Neutrophils # Man Lymphocytes # (Manual) Monocytes # (Manual) POC ABG pH POC ABG pCO2 POC ABG pO2 Sodium 135 L 135 L Potassium 3.5 L Chloride 91.7 L 91.2 L Carbon Dioxide BUN 35 H 37 H Creatinine 2.3 H 2.1 H Glucose 147 H 104 H POC Glucose Lactic Acid Uric Acid Calcium 8.3 L 8.1 L Magnesium Total Bilirubin 3.50 H Direct Bilirubin AST 218 H ALT 57 H Alkaline Phosphatase 197 H Ammonia CK-MB (CK-2) Rel Index C-Reactive Protein Total Protein 5.0 L Albumin 2.3 L Vitamin B1 Vitamin B12 25-OH Vitamin D Total Free T4 1.78 H T3 (GILSON) Urine Creatinine Urine Total Protein Acetaminophen 06/27/18 06/27/18 06/27/18 09:29 09:29 10:00 WBC 16.3 H RBC 5.44 H Hgb Hct MCV 76 L MCH 25 L RDW 18.3 H Plt Count Lymph % (Auto) [place] % (Auto) Lymph # [place] # Seg Neutrophils % Seg Neuts % (Manual) 91.0 H Lymphocytes % (Manual) 3.0 L Monocytes % (Manual) Seg Neutrophils # Seg Neutrophils # Man 14.8 H Lymphocytes # (Manual) 0.5 L Monocytes # (Manual) 1.0 H POC ABG pH POC ABG pCO2 POC ABG pO2 Sodium Potassium Chloride Carbon Dioxide BUN Creatinine Glucose POC Glucose 106 H Lactic Acid 4.00 H* Uric Acid Calcium Magnesium Total Bilirubin Direct Bilirubin AST ALT Alkaline Phosphatase Ammonia CK-MB (CK-2) Rel Index C-Reactive Protein Total Protein Albumin Vitamin B1 Vitamin B12 25-OH Vitamin D Total Free T4 T3 (GILSON) Urine Creatinine Urine Total Protein Acetaminophen 06/27/18 06/27/18 06/27/18 11:51 12:50 13:39 WBC RBC Hgb Hct MCV MCH RDW Plt Count Lymph % (Auto) [place] % (Auto) Lymph # [place] # Seg Neutrophils % Seg Neuts % (Manual) Lymphocytes % (Manual) Monocytes % (Manual) Seg Neutrophils # Seg Neutrophils # Man Lymphocytes # (Manual) Monocytes # (Manual) POC ABG pH 7.584 H POC ABG pCO2 32.8 L POC ABG pO2 109 H Sodium Potassium Chloride Carbon Dioxide BUN Creatinine Glucose POC Glucose 112 H Lactic Acid 3.20 H* Uric Acid Calcium Magnesium Total Bilirubin Direct Bilirubin AST ALT Alkaline Phosphatase Ammonia CK-MB (CK-2) Rel Index C-Reactive Protein Total Protein Albumin Vitamin B1 Vitamin B12 25-OH Vitamin D Total Free T4 T3 (GILSON) Urine Creatinine Urine Total Protein Acetaminophen 06/27/18 06/27/18 06/27/18 19:31 21:50 23:10 WBC RBC Hgb Hct MCV MCH RDW Plt Count Lymph % (Auto) [place] % (Auto) Lymph # [place] # Seg Neutrophils % Seg Neuts % (Manual) Lymphocytes % (Manual) Monocytes % (Manual) Seg Neutrophils # Seg Neutrophils # Man Lymphocytes # (Manual) Monocytes # (Manual) POC ABG pH POC ABG pCO2 POC ABG pO2 Sodium Potassium Chloride Carbon Dioxide BUN Creatinine Glucose POC Glucose Lactic Acid 2.40 H* 2.30 H* 2.30 H* Uric Acid Calcium Magnesium Total Bilirubin Direct Bilirubin AST ALT Alkaline Phosphatase Ammonia CK-MB (CK-2) Rel Index C-Reactive Protein Total Protein Albumin Vitamin B1 Vitamin B12 25-OH Vitamin D Total Free T4 T3 (GILSON) Urine Creatinine Urine Total Protein Acetaminophen 06/28/18 06/28/18 06/28/18 02:35 05:00 05:00 WBC RBC Hgb Hct MCV MCH RDW Plt Count Lymph % (Auto) [place] % (Auto) Lymph # [place] # Seg Neutrophils % Seg Neuts % (Manual) Lymphocytes % (Manual) Monocytes % (Manual) Seg Neutrophils # Seg Neutrophils # Man Lymphocytes # (Manual) Monocytes # (Manual) POC ABG pH POC ABG pCO2 POC ABG pO2 Sodium 134 L Potassium 2.6 L* D Chloride 92.3 L Carbon Dioxide 32 H BUN 34 H Creatinine 1.8 H Glucose 127 H POC Glucose Lactic Acid 2.20 H* 2.30 H* Uric Acid Calcium 7.5 L Magnesium Total Bilirubin 3.50 H Direct Bilirubin AST 226 H ALT 60 H Alkaline Phosphatase 172 H Ammonia CK-MB (CK-2) Rel Index C-Reactive Protein Total Protein 4.2 L Albumin 2.0 L Vitamin B1 Vitamin B12 25-OH Vitamin D Total Free T4 T3 (GILSON) Urine Creatinine Urine Total Protein Acetaminophen 06/28/18 06/28/18 06/28/18 05:00 08:30 08:30 WBC 15.7 H RBC Hgb Hct MCV 77 L MCH 25 L RDW 18.5 H Plt Count 112 L Lymph % (Auto) 6.0 L [place] % (Auto) 10.0 H Lymph # 0.9 L [place] # 1.6 H Seg Neutrophils % 83.4 H Seg Neuts % (Manual) Lymphocytes % (Manual) Monocytes % (Manual) Seg Neutrophils # 13.1 H Seg Neutrophils # Man Lymphocytes # (Manual) Monocytes # (Manual) POC ABG pH POC ABG pCO2 POC ABG pO2 Sodium Potassium Chloride Carbon Dioxide BUN Creatinine Glucose POC Glucose Lactic Acid 2.40 H* Uric Acid Calcium Magnesium Total Bilirubin Direct Bilirubin AST ALT Alkaline Phosphatase Ammonia CK-MB (CK-2) Rel Index C-Reactive Protein 4.80 H Total Protein Albumin Vitamin B1 Vitamin B12 25-OH Vitamin D Total Free T4 T3 (GILSON) Urine Creatinine Urine Total Protein Acetaminophen 06/28/18 06/28/18 06/28/18 10:53 11:23 18:35 WBC RBC Hgb Hct MCV MCH RDW Plt Count Lymph % (Auto) [place] % (Auto) Lymph # [place] # Seg Neutrophils % Seg Neuts % (Manual) Lymphocytes % (Manual) Monocytes % (Manual) Seg Neutrophils # Seg Neutrophils # Man Lymphocytes # (Manual) Monocytes # (Manual) POC ABG pH 7.552 H POC ABG pCO2 POC ABG pO2 Sodium Potassium 3.1 L Chloride Carbon Dioxide BUN Creatinine Glucose POC Glucose 122 H Lactic Acid Uric Acid Calcium Magnesium Total Bilirubin Direct Bilirubin AST ALT Alkaline Phosphatase Ammonia CK-MB (CK-2) Rel Index C-Reactive Protein Total Protein Albumin Vitamin B1 Vitamin B12 25-OH Vitamin D Total Free T4 T3 (GILSON) Urine Creatinine Urine Total Protein Acetaminophen 06/29/18 06/29/18 06/29/18 06:40 06:40 19:44 WBC 14.6 H RBC Hgb Hct MCV 77 L MCH 25 L RDW 19.3 H Plt Count 88 L Lymph % (Auto) [place] % (Auto) Lymph # [place] # Seg Neutrophils % Seg Neuts % (Manual) Lymphocytes % (Manual) Monocytes % (Manual) Seg Neutrophils # Seg Neutrophils # Man Lymphocytes # (Manual) Monocytes # (Manual) POC ABG pH POC ABG pCO2 POC ABG pO2 Sodium Potassium 2.7 L* Chloride 95.3 L Carbon Dioxide 32 H BUN 25 H Creatinine Glucose 145 H POC Glucose 59 L Lactic Acid Uric Acid Calcium 7.9 L Magnesium Total Bilirubin 3.60 H Direct Bilirubin AST 213 H ALT Alkaline Phosphatase 176 H Ammonia CK-MB (CK-2) Rel Index C-Reactive Protein Total Protein 4.8 L Albumin 2.2 L Vitamin B1 Vitamin B12 25-OH Vitamin D Total Free T4 T3 (GILSON) Urine Creatinine Urine Total Protein Acetaminophen 06/29/18 06/30/18 06/30/18 20:43 02:37 04:45 WBC RBC Hgb Hct MCV MCH RDW Plt Count Lymph % (Auto) [place] % (Auto) Lymph # [place] # Seg Neutrophils % Seg Neuts % (Manual) Lymphocytes % (Manual) Monocytes % (Manual) Seg Neutrophils # Seg Neutrophils # Man Lymphocytes # (Manual) Monocytes # (Manual) POC ABG pH POC ABG pCO2 POC ABG pO2 Sodium Potassium 3.1 L 2.8 L* Chloride Carbon Dioxide 31 H BUN 18 H Creatinine Glucose POC Glucose 59 L Lactic Acid Uric Acid Calcium 8.0 L Magnesium Total Bilirubin 3.70 H Direct Bilirubin AST 216 H ALT 63 H Alkaline Phosphatase 163 H Ammonia CK-MB (CK-2) Rel Index C-Reactive Protein Total Protein 4.5 L Albumin 2.1 L Vitamin B1 Vitamin B12 25-OH Vitamin D Total Free T4 T3 ([facility]) Urine Creatinine Urine Total Protein Acetaminophen 06/30/18 06/30/18 07/01/18 04:45 06:24 04:39 WBC 12.1 H RBC Hgb Hct MCV 78 L 77 L MCH 25 L 25 L RDW 19.0 H 19.3 H Plt Count 91 L 77 L Lymph % (Auto) [place] % (Auto) Lymph # [place] # Seg Neutrophils % Seg Neuts % (Manual) Lymphocytes % (Manual) Monocytes % (Manual) Seg Neutrophils # Seg Neutrophils # Man Lymphocytes # (Manual) Monocytes # (Manual) POC ABG pH POC ABG pCO2 POC ABG pO2 Sodium Potassium Chloride Carbon Dioxide BUN Creatinine Glucose POC Glucose 63 L Lactic Acid Uric Acid Calcium Magnesium Total Bilirubin Direct Bilirubin AST ALT Alkaline Phosphatase Ammonia CK-MB (CK-2) Rel Index C-Reactive Protein Total Protein Albumin Vitamin B1 Vitamin B12 25-OH Vitamin D Total Free T4 T3 ([facility]) Urine Creatinine Urine Total Protein Acetaminophen 07/01/18 07/01/18 07/02/18 04:39 11:12 05:23 WBC RBC Hgb Hct MCV 77 L MCH 25 L RDW 19.2 H Plt Count 78 L Lymph % (Auto) [place] % (Auto) Lymph # [place] # Seg Neutrophils % Seg Neuts % (Manual) Lymphocytes % (Manual) Monocytes % (Manual) Seg Neutrophils # Seg Neutrophils # Man Lymphocytes # (Manual) Monocytes # (Manual) POC ABG pH POC ABG pCO2 POC ABG pO2 Sodium Potassium 3.5 L D Chloride Carbon Dioxide BUN Creatinine Glucose 109 H POC Glucose 206 H Lactic Acid Uric Acid Calcium 8.1 L Magnesium Total Bilirubin 3.90 H Direct Bilirubin AST 163 H ALT 60 H Alkaline Phosphatase 166 H Ammonia CK-MB (CK-2) Rel Index C-Reactive Protein Total Protein 4.5 L Albumin 2.0 L Vitamin B1 Vitamin B12 25-OH Vitamin D Total Free T4 T3 ([facility]) Urine Creatinine Urine Total Protein Acetaminophen 07/02/18 07/02/18 07/03/18 05:23 12:18 08:14 WBC RBC Hgb Hct MCV 76 L MCH 25 L RDW 19.0 H Plt Count 84 L Lymph % (Auto) [place] % (Auto) Lymph # [place] # Seg Neutrophils % Seg Neuts % (Manual) Lymphocytes % (Manual) Monocytes % (Manual) Seg Neutrophils # Seg Neutrophils # Man Lymphocytes # (Manual) Monocytes # (Manual) POC ABG pH POC ABG pCO2 POC ABG pO2 Sodium 135 L Potassium 3.4 L Chloride Carbon Dioxide BUN Creatinine 0.6 L Glucose POC Glucose 144 H Lactic Acid Uric Acid Calcium 8.3 L Magnesium Total Bilirubin Direct Bilirubin AST ALT Alkaline Phosphatase Ammonia CK-MB (CK-2) Rel Index C-Reactive Protein Total Protein Albumin Vitamin B1 Vitamin B12 25-OH Vitamin D Total Free T4 T3 ([facility]) Urine Creatinine Urine Total Protein Acetaminophen 07/03/18 07/03/18 07/04/18 08:14 16:33 05:36 WBC RBC Hgb Hct MCV 77 L MCH 25 L RDW 18.5 H Plt Count 103 L Lymph % (Auto) [place] % (Auto) Lymph # [place] # Seg Neutrophils % Seg Neuts % (Manual) Lymphocytes % (Manual) Monocytes % (Manual) Seg Neutrophils # Seg Neutrophils # Man Lymphocytes # (Manual) Monocytes # (Manual) POC ABG pH POC ABG pCO2 POC ABG pO2 Sodium 135 L Potassium Chloride 97.7 L Carbon Dioxide BUN Creatinine 0.5 L Glucose POC Glucose 69 L Lactic Acid Uric Acid Calcium 8.2 L Magnesium 1.50 L Total Bilirubin Direct Bilirubin AST ALT Alkaline Phosphatase Ammonia CK-MB (CK-2) Rel Index C-Reactive Protein Total Protein Albumin Vitamin B1 Vitamin B12 25-OH Vitamin D Total Free T4 T3 ([facility]) Urine Creatinine Urine Total Protein Acetaminophen 07/04/18 07/04/18 07/04/18 05:36 08:54 11:47 WBC RBC Hgb Hct MCV MCH RDW Plt Count Lymph % (Auto) [place] % (Auto) Lymph # [place] # Seg Neutrophils % Seg Neuts % (Manual) Lymphocytes % (Manual) Monocytes % (Manual) Seg Neutrophils # Seg Neutrophils # Man Lymphocytes # (Manual) Monocytes # (Manual) POC ABG pH POC ABG pCO2 POC ABG pO2 Sodium 135 L Potassium Chloride Carbon Dioxide BUN Creatinine 0.5 L Glucose POC Glucose 61 L 122 H Lactic Acid Uric Acid Calcium 8.2 L Magnesium Total Bilirubin Direct Bilirubin AST ALT Alkaline Phosphatase Ammonia CK-MB (CK-2) Rel Index C-Reactive Protein Total Protein Albumin Vitamin B1 Vitamin B12 25-OH Vitamin D Total Free T4 T3 ([facility]) Urine Creatinine Urine Total Protein Acetaminophen 07/04/18 07/05/18 07/06/18 16:44 21:15 11:50 WBC RBC Hgb Hct MCV MCH RDW Plt Count Lymph % (Auto) [place] % (Auto) Lymph # [place] # Seg Neutrophils % Seg Neuts % (Manual) Lymphocytes % (Manual) Monocytes % (Manual) Seg Neutrophils # Seg Neutrophils # Man Lymphocytes # (Manual) Monocytes # (Manual) POC ABG pH POC ABG pCO2 POC ABG pO2 Sodium Potassium Chloride Carbon Dioxide BUN Creatinine Glucose POC Glucose 124 H 150 H 67 L Lactic Acid Uric Acid Calcium Magnesium Total Bilirubin Direct Bilirubin AST ALT Alkaline Phosphatase Ammonia CK-MB (CK-2) Rel Index C-Reactive Protein Total Protein Albumin Vitamin B1 Vitamin B12 25-OH Vitamin D Total Free T4 T3 ([facility]) Urine Creatinine Urine Total Protein Acetaminophen 07/06/18 07/06/18 07/06/18 13:32 16:27 21:13 WBC RBC Hgb Hct MCV MCH RDW Plt Count Lymph % (Auto) [place] % (Auto) Lymph # [place] # Seg Neutrophils % Seg Neuts % (Manual) Lymphocytes % (Manual) Monocytes % (Manual) Seg Neutrophils # Seg Neutrophils # Man Lymphocytes # (Manual) Monocytes # (Manual) POC ABG pH POC ABG pCO2 POC ABG pO2 Sodium Potassium Chloride Carbon Dioxide BUN Creatinine Glucose POC Glucose 146 H 125 H 69 L Lactic Acid Uric Acid Calcium Magnesium Total Bilirubin Direct Bilirubin AST ALT Alkaline Phosphatase Ammonia CK-MB (CK-2) Rel Index C-Reactive Protein Total Protein Albumin Vitamin B1 Vitamin B12 25-OH Vitamin D Total Free T4 T3 ([facility]) Urine Creatinine Urine Total Protein Acetaminophen 07/07/18 07/08/18 07/08/18 12:18 04:55 04:55 WBC RBC Hgb Hct MCV 78 L MCH 25 L RDW 18.2 H Plt Count Lymph % (Auto) [place] % (Auto) 14.8 H Lymph # [place] # 1.3 H Seg Neutrophils % Seg Neuts % (Manual) Lymphocytes % (Manual) Monocytes % (Manual) Seg Neutrophils # Seg Neutrophils # Man Lymphocytes # (Manual) Monocytes # (Manual) POC ABG pH POC ABG pCO2 POC ABG pO2 Sodium 136 L Potassium Chloride Carbon Dioxide BUN Creatinine 0.5 L Glucose 110 H POC Glucose 132 H Lactic Acid Uric Acid Calcium 8.0 L Magnesium Total Bilirubin Direct Bilirubin AST ALT Alkaline Phosphatase Ammonia CK-MB (CK-2) Rel Index C-Reactive Protein Total Protein Albumin Vitamin B1 Vitamin B12 25-OH Vitamin D Total Free T4 T3 ([facility]) Urine Creatinine Urine Total Protein Acetaminophen 07/08/18 07/08/18 07/08/18 14:27 17:11 21:20 WBC RBC Hgb Hct MCV MCH RDW Plt Count Lymph % (Auto) [place] % (Auto) Lymph # [place] # Seg Neutrophils % Seg Neuts % (Manual) Lymphocytes % (Manual) Monocytes % (Manual) Seg Neutrophils # Seg Neutrophils # Man Lymphocytes # (Manual) Monocytes # (Manual) POC ABG pH POC ABG pCO2 POC ABG pO2 Sodium Potassium Chloride Carbon Dioxide BUN Creatinine Glucose POC Glucose 133 H 113 H 126 H Lactic Acid Uric Acid Calcium Magnesium Total Bilirubin Direct Bilirubin AST ALT Alkaline Phosphatase Ammonia CK-MB (CK-2) Rel Index C-Reactive Protein Total Protein Albumin Vitamin B1 Vitamin B12 25-OH Vitamin D Total Free T4 T3 ([facility]) Urine Creatinine Urine Total Protein Acetaminophen 07/09/18 07/10/18 07/10/18 17:03 08:36 20:51 WBC RBC Hgb Hct MCV MCH RDW Plt Count Lymph % (Auto) [place] % (Auto) Lymph # [place] # Seg Neutrophils % Seg Neuts % (Manual) Lymphocytes % (Manual) Monocytes % (Manual) Seg Neutrophils # Seg Neutrophils # Man Lymphocytes # (Manual) Monocytes # (Manual) POC ABG pH POC ABG pCO2 POC ABG pO2 Sodium Potassium Chloride Carbon Dioxide BUN Creatinine Glucose POC Glucose 116 H 128 H 159 H Lactic Acid Uric Acid Calcium Magnesium Total Bilirubin Direct Bilirubin AST ALT Alkaline Phosphatase Ammonia CK-MB (CK-2) Rel Index C-Reactive Protein Total Protein Albumin Vitamin B1 Vitamin B12 25-OH Vitamin D Total Free T4 T3 ([facility]) Urine Creatinine Urine Total Protein Acetaminophen 07/11/18 07/11/18 07/11/18 03:22 03:22 12:07 WBC RBC Hgb Hct MCV 78 L MCH 26 L RDW 17.4 H Plt Count Lymph % (Auto) [place] % (Auto) Lymph # [place] # Seg Neutrophils % Seg Neuts % (Manual) Lymphocytes % (Manual) Monocytes % (Manual) 13.0 H Seg Neutrophils # Seg Neutrophils # Man Lymphocytes # (Manual) Monocytes # (Manual) POC ABG pH POC ABG pCO2 POC ABG pO2 Sodium 135 L Potassium Chloride Carbon Dioxide BUN Creatinine 0.6 L Glucose 101 H POC Glucose 345 H Lactic Acid Uric Acid Calcium 8.0 L Magnesium Total Bilirubin 1.50 H Direct Bilirubin AST 63 H ALT Alkaline Phosphatase 350 H Ammonia CK-MB (CK-2) Rel Index C-Reactive Protein Total Protein 5.5 L Albumin 2.0 L Vitamin B1 Vitamin B12 25-OH Vitamin D Total Free T4 T3 ([facility]) Urine Creatinine Urine Total Protein Acetaminophen 07/12/18 07/12/18 07/12/18 07:14 12:05 12:25 WBC RBC Hgb Hct MCV MCH RDW Plt Count Lymph % (Auto) [place] % (Auto) Lymph # [place] # Seg Neutrophils % Seg Neuts % (Manual) Lymphocytes % (Manual) Monocytes % (Manual) Seg Neutrophils # Seg Neutrophils # Man Lymphocytes # (Manual) Monocytes # (Manual) POC ABG pH POC ABG pCO2 POC ABG pO2 Sodium Potassium Chloride Carbon Dioxide BUN Creatinine Glucose POC Glucose 65 L 168 H Lactic Acid Uric Acid Calcium Magnesium Total Bilirubin Direct Bilirubin AST ALT Alkaline Phosphatase Ammonia CK-MB (CK-2) Rel Index 6.0 H C-Reactive Protein Total Protein Albumin Vitamin B1 Vitamin B12 25-OH Vitamin D Total Free T4 T3 ([facility]) Urine Creatinine Urine Total Protein Acetaminophen 07/12/18 07/12/18 07/12/18 16:21 18:12 22:40 WBC RBC Hgb Hct MCV MCH RDW Plt Count Lymph % (Auto) [place] % (Auto) Lymph # [place] # Seg Neutrophils % Seg Neuts % (Manual) Lymphocytes % (Manual) Monocytes % (Manual) Seg Neutrophils # Seg Neutrophils # Man Lymphocytes # (Manual) Monocytes # (Manual) POC ABG pH POC ABG pCO2 POC ABG pO2 Sodium Potassium Chloride Carbon Dioxide BUN Creatinine Glucose POC Glucose 109 H 111 H Lactic Acid Uric Acid Calcium Magnesium Total Bilirubin Direct Bilirubin AST ALT Alkaline Phosphatase Ammonia CK-MB (CK-2) Rel Index 6.2 H C-Reactive Protein Total Protein Albumin Vitamin B1 Vitamin B12 25-OH Vitamin D Total Free T4 T3 ([facility]) Urine Creatinine Urine Total Protein Acetaminophen 07/13/18 07/13/18 07/13/18 00:28 07:25 11:20 WBC RBC Hgb Hct MCV MCH RDW Plt Count Lymph % (Auto) [place] % (Auto) Lymph # [place] # Seg Neutrophils % Seg Neuts % (Manual) Lymphocytes % (Manual) Monocytes % (Manual) Seg Neutrophils # Seg Neutrophils # Man Lymphocytes # (Manual) Monocytes # (Manual) POC ABG pH POC ABG pCO2 POC ABG pO2 Sodium Potassium Chloride Carbon Dioxide BUN Creatinine Glucose POC Glucose 106 H 131 H Lactic Acid Uric Acid Calcium Magnesium Total Bilirubin Direct Bilirubin AST ALT Alkaline Phosphatase Ammonia CK-MB (CK-2) Rel Index 6.0 H C-Reactive Protein Total Protein Albumin Vitamin B1 Vitamin B12 25-OH Vitamin D Total Free T4 T3 (GIL[facility]) Urine Creatinine Urine Total Protein Acetaminophen 07/13/18 07/13/18 07/14/18 16:44 22:55 11:30 WBC RBC Hgb Hct MCV MCH RDW Plt Count Lymph % (Auto) [place] % (Auto) Lymph # [place] # Seg Neutrophils % Seg Neuts % (Manual) Lymphocytes % (Manual) Monocytes % (Manual) Seg Neutrophils # Seg Neutrophils # Man Lymphocytes # (Manual) Monocytes # (Manual) POC ABG pH POC ABG pCO2 POC ABG pO2 Sodium Potassium Chloride Carbon Dioxide BUN Creatinine Glucose POC Glucose 127 H 166 H 120 H Lactic Acid Uric Acid Calcium Magnesium Total Bilirubin Direct Bilirubin AST ALT Alkaline Phosphatase Ammonia CK-MB (CK-2) Rel Index C-Reactive Protein Total Protein Albumin Vitamin B1 Vitamin B12 25-OH Vitamin D Total Free T4 T3 ([facility]) Urine Creatinine Urine Total Protein Acetaminophen 07/14/18 16:45 WBC RBC Hgb Hct MCV MCH RDW Plt Count Lymph % (Auto) [place] % (Auto) Lymph # [place] # Seg Neutrophils % Seg Neuts % (Manual) Lymphocytes % (Manual) Monocytes % (Manual) Seg Neutrophils # Seg Neutrophils # Man Lymphocytes # (Manual) Monocytes # (Manual) POC ABG pH POC ABG pCO2 POC ABG pO2 Sodium Potassium Chloride Carbon Dioxide BUN Creatinine Glucose POC Glucose 69 L Lactic Acid Uric Acid Calcium Magnesium Total Bilirubin Direct Bilirubin AST ALT Alkaline Phosphatase Ammonia CK-MB (CK-2) Rel Index C-Reactive Protein Total Protein Albumin Vitamin B1 Vitamin B12 25-OH Vitamin D Total Free T4 T3 ([facility]IL[facility]) Urine Creatinine Urine Total Protein Acetaminophen Allied health notes reviewed: nursing
[2018-07-14] MEDS: LANOXIN PO SCH (17:24)
[2018-07-14] MEDS: LASIX PO SCH (17:24)
[2018-07-15] MEDS: LOPRESSOR PO SCH ×3 (01:23→18:00)
[2018-07-15] MEDS: LASIX PO SCH ×2 (06:23→18:30)
[2018-07-15] MEDS: HumaLOG SUB-Q SCH ×4 (07:25→22:44)
--- NOTE | 2018-07-15 08:32 | Progress Note ---
Assessment and Plan S/P Cardiac arrest thought secondary to Haldol treatment s/p cardioversion Hypokalemia -resolved Respiratory failure -extubated Chronic systolic heart failure Atrial fibrillation/flutter on metoprolol, digoxin and eliquis therapy Severe depression Altered mental status -improved Non-ischemic cardiomyopathy Lactic acidosis Hyponatremia Elevated bilirubin and alk phosphatase - chronic secondary to congestive hepatopathy Non-compliance with medical therapy and outpatient cardiac follow up. Echo 04/2018 at [facility] [place] showed: a 4 chamber dilated cardiomyopathy, LVEF severely decreased, 20-25%. Moderate mitral regurgitation. Severe TR. RVSP is severely elevated. Medical therapy for chronic systolic left ventricular dysfunction as tolerated. We will continue a conservative cardiac management. Subjective Date of service: 07/15/18 Principal diagnosis: altered mental status, psychosis, chronic systolic heart failure, Interval history: Patient is resting in bed comfortably. Awaits placement. Objective Vital Signs Temp Pulse Pulse Resp Resp BP BP 07/15/18 07:30 87 07/15/18 06:57 97.8 F 19 108/69 07/15/18 02:00 98.5 F 79 18 112/68 07/14/18 21:21 98.1 F 77 20 115/58 07/14/18 20:17 91 H 18 07/14/18 20:06 07/14/18 20:04 90 18 07/14/18 17:24 94 H 07/14/18 15:38 69 18 07/14/18 15:28 68 18 07/14/18 14:01 97.8 F 92 H 18 154/69 07/14/18 13:59 07/14/18 11:00 98 H 07/14/18 10:24 134/74 07/14/18 10:23 134/74 07/14/18 10:00 Pulse Ox 07/15/18 07:30 100 07/15/18 06:57 07/15/18 02:00 96 07/14/18 21:21 99 07/14/18 20:17 07/14/18 20:06 100 07/14/18 20:04 07/14/18 17:24 07/14/18 15:38 07/14/18 15:28 07/14/18 14:01 99 07/14/18 13:59 87 07/14/18 11:00 07/14/18 10:24 07/14/18 10:23 07/14/18 10:00 96 - Physical Examination General: No Apparent Distress HEENT: Positive: PERRL Neck: Positive: trachea midline Cardiac: Positive: irregularly irregular Lungs: Positive: Decreased Breath Sounds Neuro: Positive: Grossly Intact Abdomen: Positive: Active Bowel Sounds Extremities: Absent: edema - Allied health notes Allied health notes reviewed: nursing
[2018-07-15] MEDS: DUONEB *Not for PRN Use IH SCH ×3 (08:40→19:52)
[2018-07-15] MEDS: ZESTRIL PO SCH (10:33)
[2018-07-15] MEDS: ELIQUIS PO SCH ×2 (11:50→21:20)
[2018-07-15] MEDS: ZOLOFT PO SCH (12:00)
[2018-07-15] MEDS: PEPCID PO SCH (12:05)
--- NOTE | 2018-07-15 12:07 | Progress Note ---
Assessment and Plan Assessment and plan: Chest pain resolved today Troponins neg, EKG Serial cardiac enzymes Nitrosublingual prn Acute Respiratory failure following Cardiac Arrest - ? PEA from hypoglycemia or Haldol administration- now off the ventilator and on nasal canula Patient improved s/p Cardiac arrest after Haldol: listed Haldol as an Allergy/Adverse drug. Severe NICM also contributed to the evant Patient stable Severe NICM, Acute on Chronic systolic CHF of EF 20-25%, - patient has been on hospice before, it appears she was discharged from home hospice. 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 Antibiotics discontinued Improved Persistently elevated Lactic acidosis:-Likely secondary to hypoperfusion- Improved Hypokalemia: Resolved DVT prophylaxis: Patient is on Eliquis Waiting for NH placement Patient feels better. Will benefit from Subacute Rehab placement as recommedned by PT History Interval history: Chest pain resolved No SOB currently Awaiting placement Hospitalist Physical - Physical exam Narrative exam: GEN: Not in acute distress, lying in bed, obese HEENT: Normocephalic, atraumatic, Neck: supple, No JVD heart: S1 and S2 reg, no murmurs, rubs or gallop Lungs: Clear to auscultation bilat, no crackles, no wheeze Abd:soft, non tender, non distended, normal bowel sounds Ext: No edema, no clubbing, no cyanosis Neuro:Awake,alert, moves all ext. - Constitutional Vitals: Temp Pulse Resp BP Pulse Ox 97.8 F 87 19 108/69 100 07/15/18 06:57 07/15/18 07:30 07/15/18 06:57 07/15/18 06:57 07/15/18 07:30 General appearance: Present: no acute distress, well-nourished Results - Labs CBC & Chem 7: 07/11/18 03:22 07/11/18 03:22 Labs: Laboratory Last Values WBC 5.3 K/mm3 (4.5-11.0) 07/11/18 03:22 RBC 4.54 M/mm3 (3.65-5.03) 07/11/18 03:22 Hgb 11.7 gm/dl (10.1-14.3) 07/11/18 03:22 Hct 35.3 % (30.3-42.9) 07/11/18 03:22 MCV 78 fl (79-97) L 07/11/18 03:22 MCH 26 pg (28-32) L 07/11/18 03:22 MCHC 33 % (30-34) 07/11/18 03:22 RDW 17.4 % (13.2-15.2) H 07/11/18 03:22 Plt Count 324 K/mm3 (140-440) 07/11/18 03:22 Lymph % (Auto) 20.7 % (13.4-35.0) 07/08/18 04:55 [place] % (Auto) [employer] [place] 07/11/18 03:22 Eos % (Auto) 1.3 % (0.0-4.3) 07/08/18 04:55 Baso % (Auto) 0.6 % (0.0-1.8) 07/08/18 04:55 Lymph # 1.8 K/mm3 (1.2-5.4) 07/08/18 04:55 [place] # 1.3 K/mm3 (0.0-0.8) H 07/08/18 04:55 Eos # 0.1 K/mm3 (0.0-0.4) 07/08/18 04:55 Baso # 0.1 K/mm3 (0.0-0.1) 07/08/18 04:55 Add Manual Diff Complete 07/11/18 03:22 Total Counted 100 07/11/18 03:22 Seg Neutrophils % 62.6 % (40.0-70.0) 07/08/18 04:55 Seg Neuts % (Manual) 51.0 % (40.0-70.0) 07/11/18 03:22 Band Neutrophils % 0 % 07/11/18 03:22 Lymphocytes % (Manual) 34.0 % (13.4-35.0) 07/11/18 03:22 Reactive Lymphs % (Man) 2.0 % 07/11/18 03:22 Monocytes % (Manual) 13.0 % (0.0-7.3) H 07/11/18 03:22 Eosinophils % (Manual) 0 % (0.0-4.3) 07/11/18 03:22 Basophils % (Manual) 0 % (0.0-1.8) 07/11/18 03:22 Metamyelocytes % 0 % 07/11/18 03:22 Myelocytes % 0 % 07/11/18 03:22 Promyelocytes % 0 % 07/11/18 03:22 Blast Cells % 0 % 07/11/18 03:22 Nucleated RBC % Not Reportable 07/11/18 03:22 Seg Neutrophils # 5.3 K/mm3 (1.8-7.7) 07/08/18 04:55 Seg Neutrophils # Man 2.7 K/mm3 (1.8-7.7) 07/11/18 03:22 Band Neutrophils # 0.0 K/mm3 07/11/18 03:22 Lymphocytes # (Manual) 1.8 K/mm3 (1.2-5.4) 07/11/18 03:22 Abs React Lymphs (Man) 0.1 K/mm3 07/11/18 03:22 Monocytes # (Manual) 0.7 K/mm3 (0.0-0.8) 07/11/18 03:22 Eosinophils # (Manual) 0.0 K/mm3 (0.0-0.4) 07/11/18 03:22 Basophils # (Manual) 0.0 K/mm3 (0.0-0.1) 07/11/18 03:22 Metamyelocytes # 0.0 K/mm3 07/11/18 03:22 Myelocytes # 0.0 K/mm3 07/11/18 03:22 Promyelocytes # 0.0 K/mm3 07/11/18 03:22 Blast Cells # 0.0 K/mm3 07/11/18 03:22 WBC Morphology Not Reportable 07/11/18 03:22 Hypersegmented Neuts Not Reportable 07/11/18 03:22 Hyposegmented Neuts Not Reportable 07/11/18 03:22 Hypogranular Neuts Not Reportable 07/11/18 03:22 Smudge Cells Not Reportable 07/11/18 03:22 Toxic Granulation Not Reportable 07/11/18 03:22 Toxic Vacuolation Not Reportable 07/11/18 03:22 Dohle Bodies Not Reportable 07/11/18 03:22 Pelger-Huet Anomaly Not Reportable 07/11/18 03:22 Sushma Rods Not Reportable 07/11/18 03:22 Platelet Estimate Consistent w auto 07/11/18 03:22 Clumped Platelets Not Reportable 07/11/18 03:22 Plt Clumps, EDTA Not Reportable 07/11/18 03:22 Large Platelets Not Reportable 07/11/18 03:22 Giant Platelets Not Reportable 07/11/18 03:22 Platelet Satelliting Not Reportable 07/11/18 03:22 Plt Morphology Comment Not Reportable 07/11/18 03:22 RBC Morphology Not Reportable 07/11/18 03:22 Dimorphic RBCs Not Reportable 07/11/18 03:22 Polychromasia Not Reportable 07/11/18 03:22 Hypochromasia 2+ 07/11/18 03:22 Poikilocytosis 2+ 07/11/18 03:22 Anisocytosis 1+ 07/11/18 03:22 Microcytosis Not Reportable 07/11/18 03:22 Macrocytosis Not Reportable 07/11/18 03:22 Spherocytes Not Reportable 07/11/18 03:22 Pappenheimer Bodies Not Reportable 07/11/18 03:22 Sickle Cells Not Reportable 07/11/18 03:22 Target Cells 1+ 07/11/18 03:22 Tear Drop Cells Few 07/11/18 03:22 Ovalocytes Few 07/11/18 03:22 Helmet Cells Not Reportable 07/11/18 03:22 [place]-Cody Bodies Not Reportable 07/11/18 03:22 [place] Rings Not Reportable 07/11/18 03:22 [place] Cells Not Reportable 07/11/18 03:22 Bite Cells Not Reportable 07/11/18 03:22 Crenated Cell Not Reportable 07/11/18 03:22 Elliptocytes Few 07/11/18 03:22 Acanthocytes (Spur) Not Reportable 07/11/18 03:22 Rouleaux Not Reportable 07/11/18 03:22 Hemoglobin C Crystals Not Reportable 07/11/18 03:22 Schistocytes Not Reportable 07/11/18 03:22 Malaria parasites Not Reportable 07/11/18 03:22 Saqib Bodies Not Reportable 07/11/18 03:22 Hem Pathologist Commnt No 07/11/18 03:22 POC ABG pH 7.552 (7.35-7.45) H 06/28/18 10:53 POC ABG pCO2 40.8 (35-45) 06/28/18 10:53 POC ABG pO2 83 (80-105) 06/28/18 10:53 POC ABG HCO3 35.9 (22-26 mml/L) 06/28/18 10:53 POC ABG Total CO2 37 (23-27mmol/L) 06/28/18 10:53 POC ABG O2 Sat 97 06/28/18 10:53 POC ABG Base Excess 14 ((-2) - (+3)mmol/L) 06/28/18 10:53 FiO2 30 % 06/28/18 10:53 Sodium 135 mmol/L (137-145) L 07/11/18 03:22 Potassium 3.9 mmol/L (3.6-5.0) 07/11/18 03:22 Chloride 99.7 mmol/L (98-107) 07/11/18 03:22 Carbon Dioxide 24 mmol/L (22-30) 07/11/18 03:22 Anion Gap 15 mmol/L 07/11/18 03:22 BUN 10 mg/dL (7-17) 07/11/18 03:22 Creatinine 0.6 mg/dL (0.7-1.2) L 07/11/18 03:22 Estimated GFR > 60 ml/min 07/11/18 03:22 BUN/Creatinine Ratio 17 % 07/11/18 03:22 Glucose 101 mg/dL (65-100) H 07/11/18 03:22 POC Glucose 187 (70-105) H 07/15/18 11:44 Hemoglobin A1c 5.5 % (4-6) 06/17/18 15:08 Osmolality 276 Mosm/kg 06/20/18 07:31 Lactic Acid 1.30 mmol/L (0.7-2.0) 07/02/18 23:33 Uric Acid 9.2 mg/dL (3.5-7.6) H 06/21/18 16:27 Calcium 8.0 mg/dL (8.4-10.2) L 07/11/18 03:22 Phosphorus 2.50 mg/dL (2.5-4.5) 06/20/18 07:31 Magnesium 1.50 mg/dL (1.7-2.3) L 07/03/18 08:14 Total Bilirubin 1.50 mg/dL (0.1-1.2) H 07/11/18 03:22 Direct Bilirubin 1.6 mg/dL (0-0.2) H 06/17/18 11:00 Indirect Bilirubin -1.4 mg/dL 06/17/18 11:00 AST 63 units/L (5-40) H 07/11/18 03:22 ALT 53 units/L (7-56) 07/11/18 03:22 Alkaline Phosphatase 350 units/L (35-129) H 07/11/18 03:22 Ammonia 38.0 umol/L (25-60) 06/25/18 16:02 Total Creatine Kinase 43 units/L (30-135) 07/13/18 00:28 CK-MB (CK-2) 2.6 ng/mL (0.0-4.0) 07/13/18 00:28 CK-MB (CK-2) Rel Index 6.0 (0-4) H 07/13/18 00:28 Troponin T 0.017 ng/mL (0.00-0.029) 07/13/18 00:28 C-Reactive Protein 4.80 mg/dL (0.00-1.30) H 06/28/18 05:00 Total Protein 5.5 g/dL (6.3-8.2) L 07/11/18 03:22 Albumin 2.0 g/dL (3.9-5) L 07/11/18 03:22 Albumin/Globulin Ratio 0.6 % 07/11/18 03:22 Vitamin B1 <6 nmol/L (8-30) L 06/21/18 16:27 Vitamin B12 1598 pg/mL (211-911) H 06/20/18 20:53 25-OH Vitamin D Total 10 ng/mL (30-100) L 06/20/18 20:53 25-Hydroxy Vitamin D2 . 06/20/18 20:53 25-Hydroxy Vitamin D3 . 06/20/18 20:53 Folate 14.18 ng/mL (7.3-26.0) 06/20/18 20:53 TSH 1.540 mlU/mL (0.270-4.200) 06/27/18 09:29 Free T4 1.78 ng/dL (0.76-1.46) H 06/27/18 09:29 T3 (GILSON) 58 ng/dL (76-181) L 06/20/18 16:51 Urine Color Caryl (Yellow) 06/16/18 Unknown Urine Turbidity Clear (Clear) 06/16/18 Unknown Urine pH 5.0 (5.0-7.0) 06/16/18 Unknown Ur Specific [place] 1.025 (1.003-1.030) 06/16/18 Unknown Urine Protein 100 mg/dl mg/dL (Negative) 06/16/18 Unknown Urine Glucose (UA) 50 mg/dL (Negative) 06/16/18 Unknown Urine Ketones Neg mg/dL (Negative) 06/16/18 Unknown Urine Blood Neg (Negative) 06/16/18 Unknown Urine Nitrite Neg (Negative) 06/16/18 Unknown Urine Bilirubin Neg (Negative) 06/16/18 Unknown Urine Urobilinogen 4.0 mg/dL (<2.0) 06/16/18 Unknown Ur Leukocyte Esterase Neg (Negative) 06/16/18 Unknown Urine WBC (Auto) 4.0 /HPF (0.0-6.0) 06/16/18 Unknown Urine RBC (Auto) 5.0 /HPF (0.0-6.0) 06/16/18 Unknown U Epithel Cells (Auto) 7.0 /HPF (0-13.0) 06/16/18 Unknown Hyaline Casts 49 /LPF 06/16/18 Unknown Urine Mucus Few /HPF 06/16/18 Unknown Urine Osmolality 413 Mosm/kg 06/19/18 Unknown Urine Creatinine 61.7 mg/dL (0.1-20.0) H 06/19/18 Unknown Urine Total Protein 32 mg/dL (5-11.8) H 06/19/18 Unknown Salicylates 5.5 mg/dL (2.8-20.0) 06/16/18 21:43 Urine Opiates Screen Presumptive negative 06/16/18 Unknown Urine Methadone Screen Presumptive negative 06/16/18 Unknown Acetaminophen < 5.0 ug/mL (10.0-30.0) L 06/16/18 21:43 Ur Barbiturates Screen Presumptive negative 06/16/18 Unknown Ur Phencyclidine Scrn Presumptive negative 06/16/18 Unknown Ur Amphetamines Screen Presumptive negative 06/16/18 Unknown U Benzodiazepines Scrn Presumptive negative 06/16/18 Unknown Urine Cocaine Screen Presumptive negative 06/16/18 Unknown U Marijuana (THC) Screen Presumptive negative 06/16/18 Unknown Drugs of Abuse Note Disclamer 06/16/18 Unknown Plasma/Serum Alcohol < 0.01 % (0-0.07) 06/16/18 21:43 Thyroglobulin Antibody See scanned result 06/20/18 16:51 Thyroid Peroxidase Ab See scanned result 06/20/18 16:51 HIV 1&2 Antibody Rapid Non react (Non React) 06/21/18 16:27 HIV P24 Antigen Non react (Non React) 06/21/18 16:27 Active Medications - Current Medications Current Medications: Generic Name Dose Route Start Last Admin Trade Name Freq PRN Reason Stop Dose Admin Acetaminophen 650 mg 06/17/18 03:33 07/11/18 02:57 Tylenol PO 650 mg Q4H PRN Administration Fever >101 Albuterol/Ipratropium 1 ampul 06/27/18 14:00 07/15/18 08:40 Duoneb *Not For Prn Use* IH 1 ampul TIDRT JEANETTE Administration Apixaban 5 mg 06/20/18 16:00 07/14/18 23:04 Eliquis PO 5 mg Q12HR JEANETTE Administration Protocol Atorvastatin Calcium 20 mg 06/19/18 22:00 07/14/18 23:04 Lipitor PO 20 mg QHS JEANETTE Administration Dextrose 50 ml 07/01/18 11:50 07/12/18 08:58 D50w (25gm) Syringe IV 50 ml PRN PRN Administration Hypoglycemia Digoxin 0.125 mg 06/24/18 17:00 07/14/18 17:24 Lanoxin PO 0.125 mg DAILY@1700 JEANETTE Administration Famotidine 20 mg 06/27/18 12:00 07/14/18 10:24 Pepcid PO 20 mg DAILY JEANETTE Administration Furosemide 20 mg 07/05/18 18:00 07/14/18 17:24 Lasix PO 20 mg 0600,1800 JEANETTE Administration Insulin Human Lispro 0 unit 07/01/18 16:30 07/14/18 17:24 Humalog SUB-Q Not Given ACHS [facility] Protocol Lactulose 20 gm 07/04/18 12:00 Cephulac PO Q6HR PRN CONSTIPATION Lisinopril 2.5 mg 07/12/18 10:00 07/14/18 10:23 Zestril PO 2.5 mg QDAY JEANETTE Administration Metoprolol Tartrate 25 mg 06/25/18 09:00 07/14/18 10:24 Lopressor PO 25 mg Q8H JEANETTE Administration Nitroglycerin 0.4 mg 07/12/18 12:22 07/12/18 12:32 Nitrostat SL 0.4 mg .Q5MIN PRN Administration Chest Pain Ondansetron HCl 4 mg 06/17/18 03:24 Zofran IV Q8H PRN Nausea And Vomiting Sertraline HCl 50 mg 06/24/18 10:00 07/14/18 10:24 Zoloft PO 50 mg DAILY JEANETTE Administration Nutrition/Malnutrition Assess - Dietary Evaluation Nutrition/Malnutrition Findings: Nutrition Notes Start: 06/24/18 15:14 Freq: Status: Active Protocol: Document 07/14/18 14:54 RM (Rec: 07/14/18 15:03 RM [id number]) Nutrition Notes Initial or Follow up Reassessment Current Diagnosis Acute Kidney Injury, Hypertension,Heart Failure, Respiratory Failure Other Pertinent Diagnosis Severe depression,Dementia, s/ p cardiac arrest, psychosis, AMS Current Diet Mechanical Soft w/chopped meat Labs/Tests No recent labs Pertinent Medications Lasix Height 5 ft 5 in Weight 82.3 kg [place] Body Weight (kg) 56.81 BMI 30.2 Subjective/Other Information Per tech pt sips the Ensure Clear. Recorded PO intake 75% X 2 meals. Percent of energy/protein needs met: 98%/94% Burn Absent Trauma Absent #1 Nutrition Diagnosis Inadequate oral intake As Evidenced by Signs and Symptoms pt meeting 98% of calorie and 94% of protein needs Diagnosis Progress(for reassessment Resolved documentation) Is patient on ventilator? No Is Patient Ambulatory and/or Out of Bed No REE-([facility] Ezra-confined to bed) [phone] Calculation Used for Recommendations [facility] Additional Notes Pro needs 1-1.2g/k-96 g/ day Fluid needs 1ml/kcall Nutrition Intervention Change Diet Order: Continue current Add Supplement/Snack (indicate name/kcal Ensure Clear 1 daily /protein ) Provides kCal: 240 Provides Protein (gm) 8 Goal #1 Continue to meet at least 75% of energy and protein needs via PO intake Anticipated Discharge Needs: Mechanical Soft Follow-Up By: 07/20/18 Additional Comments Follow for PO and ONS intakes - Attestation Statement I have reviewed and agreed w/ Malnutrition eval & tx plan: Yes
--- NOTE | 2018-07-15 13:35 | Progress Note ---
Subjective Date of service: 07/15/18 Principal diagnosis: altered mental status, psychosis, chronic systolic heart failure, Interval history: Patient is seen today for: s/p Cardiopulmonary arrest; acute hypoxemic respiratory failure; Cardiomyopathy; Psychosis Seen and examined at bedside; 24-hour events reviewed; nursing and respiratory care staff consulted; Vitals, labs, medications, chart reviewed; no adverse overnight events reported to me; On going agitation with intermittent confusion. Denies any chest pain, no shortness of breath, on oxygen at 2LNC Objective Vital Signs - 12hr 07/15/18 07/15/18 07/15/18 02:00 06:57 07:30 Temperature 98.5 F 97.8 F Pulse Rate 79 87 Pulse Rate [ Posterior Bilateral Throughout] Respiratory 18 19 Rate Respiratory Rate [Posterior Bilateral Throughout] Blood Pressure 108/69 Blood Pressure 112/68 [Left] O2 Sat by Pulse 96 100 Oximetry 07/15/18 07/15/18 08:40 08:50 Temperature Pulse Rate Pulse Rate [ 79 89 Posterior Bilateral Throughout] Respiratory Rate Respiratory 20 20 Rate [Posterior Bilateral Throughout] Blood Pressure Blood Pressure [Left] O2 Sat by Pulse 97 Oximetry Constitutional: no acute distress, asleep, other (Confusing at times.) Eyes: non-icteric, other (Pupils 4mm, sluggichly reacting to light) ENT: oropharynx dry, other (extubated) Neck: supple, no lymphadenopathy, no JVD, other (no thyromegaly) Effort: normal Ascultation: Bilateral: diminished breath sounds, rales Percussion: Bilateral: not dull Cardiovascular: irregular rhythm, other (S1,S2,) Gastrointestinal: normoactive bowel sounds, soft, non-tender, non-distended Integumentary: rash (exematoid rash to upper chest) Extremities: no cyanosis, no edema, pulses normal, no ischemia or petechiae Neurologic: normal mental status, non-focal exam (grossly), pupils equal and round, CN II-XII normal Psychiatric: depressed CBC and BMP: 07/11/18 03:22 07/11/18 03:22 ABG, PT/INR, D-dimer: ABG POC ABG pH 7.552 (7.35-7.45) H 06/28/18 10:53 POC ABG pCO2 40.8 (35-45) 06/28/18 10:53 POC ABG pO2 83 (80-105) 06/28/18 10:53 POC ABG HCO3 35.9 (22-26 mml/L) 06/28/18 10:53 POC ABG Total CO2 37 (23-27mmol/L) 06/28/18 10:53 POC ABG O2 Sat 97 06/28/18 10:53 Abnormal lab findings: Abnormal Labs 06/16/18 06/16/18 06/16/18 21:05 21:43 21:43 WBC RBC Hgb Hct MCV MCH RDW Plt Count Lymph % (Auto) [place] % (Auto) Lymph # [place] # Seg Neutrophils % Seg Neuts % (Manual) Lymphocytes % (Manual) Monocytes % (Manual) Seg Neutrophils # Seg Neutrophils # Man Lymphocytes # (Manual) Monocytes # (Manual) POC ABG pH POC ABG pCO2 POC ABG pO2 Sodium 129 L Potassium Chloride 95.3 L Carbon Dioxide 14 L BUN 23 H Creatinine Glucose 146 H POC Glucose < 40 L Lactic Acid Uric Acid Calcium Magnesium Total Bilirubin Direct Bilirubin AST ALT Alkaline Phosphatase Ammonia CK-MB (CK-2) Rel Index C-Reactive Protein Total Protein Albumin Vitamin B1 Vitamin B12 25-OH Vitamin D Total Free T4 T3 (GILSON) Urine Creatinine Urine Total Protein Acetaminophen < 5.0 L 06/16/18 06/16/18 06/16/18 21:43 21:43 22:27 WBC RBC 5.70 H Hgb Hct 44.6 H MCV 78 L MCH 25 L RDW 18.7 H Plt Count Lymph % (Auto) [place] % (Auto) Lymph # [place] # Seg Neutrophils % 78.8 H Seg Neuts % (Manual) Lymphocytes % (Manual) Monocytes % (Manual) Seg Neutrophils # Seg Neutrophils # Man Lymphocytes # (Manual) Monocytes # (Manual) POC ABG pH POC ABG pCO2 POC ABG pO2 Sodium Potassium Chloride Carbon Dioxide BUN Creatinine Glucose POC Glucose 121 H Lactic Acid Uric Acid Calcium Magnesium Total Bilirubin Direct Bilirubin AST ALT Alkaline Phosphatase Ammonia CK-MB (CK-2) Rel Index C-Reactive Protein Total Protein Albumin Vitamin B1 Vitamin B12 25-OH Vitamin D Total Free T4 1.87 H T3 (GILSON) Urine Creatinine Urine Total Protein Acetaminophen 06/16/18 06/16/18 06/17/18 22:33 23:43 03:56 WBC RBC Hgb Hct MCV MCH RDW Plt Count Lymph % (Auto) [place] % (Auto) Lymph # [place] # Seg Neutrophils % Seg Neuts % (Manual) Lymphocytes % (Manual) Monocytes % (Manual) Seg Neutrophils # Seg Neutrophils # Man Lymphocytes # (Manual) Monocytes # (Manual) POC ABG pH POC ABG pCO2 POC ABG pO2 Sodium Potassium Chloride Carbon Dioxide BUN Creatinine Glucose POC Glucose Lactic Acid 4.40 H* 4.30 H* 3.10 H* Uric Acid Calcium Magnesium Total Bilirubin Direct Bilirubin AST ALT Alkaline Phosphatase Ammonia CK-MB (CK-2) Rel Index C-Reactive Protein Total Protein Albumin Vitamin B1 Vitamin B12 25-OH Vitamin D Total Free T4 T3 (GILSON) Urine Creatinine Urine Total Protein Acetaminophen 06/17/18 06/17/18 06/17/18 08:35 08:40 11:00 WBC RBC Hgb Hct MCV MCH RDW Plt Count Lymph % (Auto) [place] % (Auto) Lymph # [place] # Seg Neutrophils % Seg Neuts % (Manual) Lymphocytes % (Manual) Monocytes % (Manual) Seg Neutrophils # Seg Neutrophils # Man Lymphocytes # (Manual) Monocytes # (Manual) POC ABG pH POC ABG pCO2 POC ABG pO2 Sodium Potassium Chloride Carbon Dioxide BUN Creatinine Glucose POC Glucose 56 L Lactic Acid 2.70 H* 3.40 H* Uric Acid Calcium Magnesium Total Bilirubin Direct Bilirubin AST ALT Alkaline Phosphatase Ammonia CK-MB (CK-2) Rel Index C-Reactive Protein Total Protein Albumin Vitamin B1 Vitamin B12 25-OH Vitamin D Total Free T4 T3 (GILSON) Urine Creatinine Urine Total Protein Acetaminophen 06/17/18 06/17/18 06/17/18 11:00 11:00 11:00 WBC 11.9 H RBC 5.25 H Hgb Hct MCV MCH 25 L RDW 18.6 H Plt Count Lymph % (Auto) [place] % (Auto) Lymph # [place] # Seg Neutrophils % Seg Neuts % (Manual) Lymphocytes % (Manual) Monocytes % (Manual) Seg Neutrophils # Seg Neutrophils # Man Lymphocytes # (Manual) Monocytes # (Manual) POC ABG pH POC ABG pCO2 POC ABG pO2 Sodium 128 L Potassium Chloride 95.6 L Carbon Dioxide 15 L BUN 22 H Creatinine Glucose 110 H POC Glucose Lactic Acid Uric Acid Calcium 8.3 L Magnesium Total Bilirubin Direct Bilirubin 1.6 H AST 66 H ALT Alkaline Phosphatase 178 H Ammonia CK-MB (CK-2) Rel Index C-Reactive Protein Total Protein 4.7 L Albumin 2.4 L Vitamin B1 Vitamin B12 25-OH Vitamin D Total Free T4 T3 (GILSON) Urine Creatinine Urine Total Protein Acetaminophen 06/17/18 06/17/18 06/17/18 15:08 15:08 23:00 WBC RBC Hgb Hct MCV MCH RDW Plt Count Lymph % (Auto) [place] % (Auto) Lymph # [place] # Seg Neutrophils % Seg Neuts % (Manual) Lymphocytes % (Manual) Monocytes % (Manual) Seg Neutrophils # Seg Neutrophils # Man Lymphocytes # (Manual) Monocytes # (Manual) POC ABG pH POC ABG pCO2 POC ABG pO2 Sodium Potassium Chloride Carbon Dioxide BUN Creatinine Glucose POC Glucose Lactic Acid 4.00 H* Uric Acid Calcium Magnesium Total Bilirubin Direct Bilirubin AST ALT Alkaline Phosphatase Ammonia 10.0 L CK-MB (CK-2) Rel Index C-Reactive Protein Total Protein Albumin Vitamin B1 Vitamin B12 25-OH Vitamin D Total Free T4 1.53 H T3 (GILSON) Urine Creatinine Urine Total Protein Acetaminophen 06/18/18 06/18/18 06/18/18 08:59 08:59 12:49 WBC RBC 5.29 H Hgb Hct MCV 78 L MCH 25 L RDW 18.4 H Plt Count Lymph % (Auto) [place] % (Auto) Lymph # [place] # Seg Neutrophils % Seg Neuts % (Manual) Lymphocytes % (Manual) Monocytes % (Manual) Seg Neutrophils # Seg Neutrophils # Man Lymphocytes # (Manual) Monocytes # (Manual) POC ABG pH POC ABG pCO2 POC ABG pO2 Sodium 128 L Potassium 5.9 H D Chloride 96.1 L Carbon Dioxide 20 L BUN 22 H Creatinine Glucose POC Glucose 60 L Lactic Acid Uric Acid Calcium Magnesium Total Bilirubin Direct Bilirubin AST ALT Alkaline Phosphatase Ammonia CK-MB (CK-2) Rel Index C-Reactive Protein Total Protein Albumin Vitamin B1 Vitamin B12 25-OH Vitamin D Total Free T4 T3 (GILSON) Urine Creatinine Urine Total Protein Acetaminophen 06/18/18 06/19/18 06/19/18 21:28 12:14 13:23 WBC RBC Hgb Hct MCV MCH RDW Plt Count Lymph % (Auto) [place] % (Auto) Lymph # [place] # Seg Neutrophils % Seg Neuts % (Manual) Lymphocytes % (Manual) Monocytes % (Manual) Seg Neutrophils # Seg Neutrophils # Man Lymphocytes # (Manual) Monocytes # (Manual) POC ABG pH POC ABG pCO2 POC ABG pO2 Sodium 122 L Potassium 5.4 H Chloride 95.0 L Carbon Dioxide 13 L D BUN 21 H Creatinine Glucose 119 H POC Glucose 114 H Lactic Acid Uric Acid Calcium 8.3 L Magnesium Total Bilirubin Direct Bilirubin AST ALT Alkaline Phosphatase Ammonia CK-MB (CK-2) Rel Index C-Reactive Protein Total Protein Albumin Vitamin B1 Vitamin B12 25-OH Vitamin D Total Free T4 T3 (GILSON) Urine Creatinine Urine Total Protein Acetaminophen 06/19/18 06/19/18 06/19/18 14:47 16:38 22:42 WBC RBC 5.51 H Hgb Hct 45.3 H MCV MCH 25 L RDW 18.6 H Plt Count Lymph % (Auto) [place] % (Auto) Lymph # [place] # Seg Neutrophils % Seg Neuts % (Manual) Lymphocytes % (Manual) Monocytes % (Manual) Seg Neutrophils # Seg Neutrophils # Man Lymphocytes # (Manual) Monocytes # (Manual) POC ABG pH POC ABG pCO2 POC ABG pO2 Sodium Potassium Chloride Carbon Dioxide BUN Creatinine Glucose POC Glucose 108 H 49 L Lactic Acid Uric Acid Calcium Magnesium Total Bilirubin Direct Bilirubin AST ALT Alkaline Phosphatase Ammonia CK-MB (CK-2) Rel Index C-Reactive Protein Total Protein Albumin Vitamin B1 Vitamin B12 25-OH Vitamin D Total Free T4 T3 (GILSON) Urine Creatinine Urine Total Protein Acetaminophen 06/19/18 06/20/18 06/20/18 Unknown 07:31 16:51 WBC RBC Hgb Hct MCV MCH RDW Plt Count Lymph % (Auto) [place] % (Auto) Lymph # [place] # Seg Neutrophils % Seg Neuts % (Manual) Lymphocytes % (Manual) Monocytes % (Manual) Seg Neutrophils # Seg Neutrophils # Man Lymphocytes # (Manual) Monocytes # (Manual) POC ABG pH POC ABG pCO2 POC ABG pO2 Sodium 132 L D Potassium Chloride 94.3 L Carbon Dioxide BUN 20 H Creatinine Glucose POC Glucose Lactic Acid Uric Acid 8.6 H Calcium Magnesium 1.30 L Total Bilirubin Direct Bilirubin AST ALT Alkaline Phosphatase Ammonia CK-MB (CK-2) Rel Index C-Reactive Protein Total Protein Albumin Vitamin B1 Vitamin B12 25-OH Vitamin D Total Free T4 T3 (GILSON) 58 L Urine Creatinine 61.7 H Urine Total Protein 32 H Acetaminophen 06/20/18 06/20/18 06/21/18 20:53 20:53 16:27 WBC RBC Hgb Hct MCV MCH RDW Plt Count Lymph % (Auto) [place] % (Auto) Lymph # [place] # Seg Neutrophils % Seg Neuts % (Manual) Lymphocytes % (Manual) Monocytes % (Manual) Seg Neutrophils # Seg Neutrophils # Man Lymphocytes # (Manual) Monocytes # (Manual) POC ABG pH POC ABG pCO2 POC ABG pO2 Sodium Potassium Chloride Carbon Dioxide BUN Creatinine Glucose POC Glucose Lactic Acid Uric Acid 9.2 H Calcium Magnesium Total Bilirubin Direct Bilirubin AST ALT Alkaline Phosphatase Ammonia CK-MB (CK-2) Rel Index C-Reactive Protein Total Protein Albumin Vitamin B1 Vitamin B12 1598 H 25-OH Vitamin D Total 10 L Free T4 T3 (GILSON) Urine Creatinine Urine Total Protein Acetaminophen 06/21/18 06/21/18 06/21/18 16:27 16:27 16:27 WBC RBC 5.26 H Hgb Hct MCV 77 L MCH 26 L RDW 17.7 H Plt Count Lymph % (Auto) [place] % (Auto) Lymph # [place] # Seg Neutrophils % Seg Neuts % (Manual) Lymphocytes % (Manual) Monocytes % (Manual) Seg Neutrophils # Seg Neutrophils # Man Lymphocytes # (Manual) Monocytes # (Manual) POC ABG pH POC ABG pCO2 POC ABG pO2 Sodium 130 L Potassium Chloride 95.6 L Carbon Dioxide BUN 24 H Creatinine Glucose POC Glucose Lactic Acid Uric Acid Calcium Magnesium Total Bilirubin Direct Bilirubin AST ALT Alkaline Phosphatase Ammonia CK-MB (CK-2) Rel Index C-Reactive Protein Total Protein Albumin Vitamin B1 <6 L Vitamin B12 25-OH Vitamin D Total Free T4 T3 (GILSON) Urine Creatinine Urine Total Protein Acetaminophen 06/21/18 06/22/18 06/23/18 21:44 21:42 14:54 WBC RBC 5.07 H Hgb Hct MCV 78 L MCH 25 L RDW 18.5 H Plt Count Lymph % (Auto) [place] % (Auto) 12.3 H Lymph # 1.0 L [place] # Seg Neutrophils % Seg Neuts % (Manual) Lymphocytes % (Manual) Monocytes % (Manual) Seg Neutrophils # Seg Neutrophils # Man Lymphocytes # (Manual) Monocytes # (Manual) POC ABG pH POC ABG pCO2 POC ABG pO2 Sodium Potassium Chloride Carbon Dioxide BUN Creatinine Glucose POC Glucose 126 H 114 H Lactic Acid Uric Acid Calcium Magnesium Total Bilirubin Direct Bilirubin AST ALT Alkaline Phosphatase Ammonia CK-MB (CK-2) Rel Index C-Reactive Protein Total Protein Albumin Vitamin B1 Vitamin B12 25-OH Vitamin D Total Free T4 T3 (GILSON) Urine Creatinine Urine Total Protein Acetaminophen 06/23/18 06/25/18 06/25/18 14:54 00:00 00:00 WBC 3.6 L RBC 5.31 H Hgb Hct MCV 77 L MCH 26 L RDW 19.0 H Plt Count Lymph % (Auto) [place] % (Auto) 10.2 H Lymph # [place] # Seg Neutrophils % Seg Neuts % (Manual) Lymphocytes % (Manual) Monocytes % (Manual) Seg Neutrophils # Seg Neutrophils # Man Lymphocytes # (Manual) Monocytes # (Manual) POC ABG pH POC ABG pCO2 POC ABG pO2 Sodium 132 L 131 L Potassium 3.5 L Chloride 91.5 L 93.5 L Carbon Dioxide BUN 19 H 21 H Creatinine Glucose POC Glucose Lactic Acid Uric Acid Calcium 8.1 L Magnesium Total Bilirubin 2.80 H 2.70 H Direct Bilirubin AST 52 H 81 H ALT Alkaline Phosphatase 231 H 243 H Ammonia CK-MB (CK-2) Rel Index C-Reactive Protein Total Protein 5.5 L 5.5 L Albumin 2.8 L 2.7 L Vitamin B1 Vitamin B12 25-OH Vitamin D Total Free T4 T3 (GILSON) Urine Creatinine Urine Total Protein Acetaminophen 06/25/18 06/25/18 06/25/18 16:02 16:02 16:18 WBC 3.9 L RBC 5.78 H Hgb 14.6 H Hct 45.4 H MCV MCH 25 L RDW 19.2 H Plt Count Lymph % (Auto) [place] % (Auto) Lymph # [place] # Seg Neutrophils % Seg Neuts % (Manual) Lymphocytes % (Manual) Monocytes % (Manual) Seg Neutrophils # Seg Neutrophils # Man Lymphocytes # (Manual) 1.1 L Monocytes # (Manual) POC ABG pH POC ABG pCO2 POC ABG pO2 Sodium 131 L Potassium Chloride 90.0 L Carbon Dioxide BUN 25 H Creatinine 1.4 H Glucose POC Glucose Lactic Acid 4.00 H* Uric Acid Calcium Magnesium Total Bilirubin 3.10 H Direct Bilirubin AST 68 H ALT Alkaline Phosphatase 296 H Ammonia CK-MB (CK-2) Rel Index C-Reactive Protein Total Protein 6.1 L Albumin 3.3 L Vitamin B1 Vitamin B12 25-OH Vitamin D Total Free T4 T3 (GILSON) Urine Creatinine Urine Total Protein Acetaminophen 06/25/18 06/26/18 06/26/18 21:06 11:33 11:37 WBC RBC Hgb Hct MCV MCH 26 L RDW 19.2 H Plt Count 139 L Lymph % (Auto) [place] % (Auto) Lymph # [place] # Seg Neutrophils % Seg Neuts % (Manual) 85.0 H Lymphocytes % (Manual) 6.0 L Monocytes % (Manual) Seg Neutrophils # Seg Neutrophils # Man 8.0 H Lymphocytes # (Manual) 0.6 L Monocytes # (Manual) POC ABG pH POC ABG pCO2 POC ABG pO2 Sodium Potassium Chloride Carbon Dioxide BUN Creatinine Glucose POC Glucose < 40 L Lactic Acid 6.40 H* Uric Acid Calcium Magnesium Total Bilirubin Direct Bilirubin AST ALT Alkaline Phosphatase Ammonia CK-MB (CK-2) Rel Index C-Reactive Protein Total Protein Albumin Vitamin B1 Vitamin B12 25-OH Vitamin D Total Free T4 T3 (GILSON) Urine Creatinine Urine Total Protein Acetaminophen 06/26/18 06/26/18 06/26/18 11:37 11:51 11:59 WBC RBC Hgb Hct MCV MCH RDW Plt Count Lymph % (Auto) [place] % (Auto) Lymph # [place] # Seg Neutrophils % Seg Neuts % (Manual) Lymphocytes % (Manual) Monocytes % (Manual) Seg Neutrophils # Seg Neutrophils # Man Lymphocytes # (Manual) Monocytes # (Manual) POC ABG pH 7.029 L POC ABG pCO2 POC ABG pO2 73 L Sodium 129 L Potassium Chloride 87.0 L Carbon Dioxide 11 L D BUN 31 H Creatinine 1.9 H Glucose 206 H POC Glucose 253 H Lactic Acid Uric Acid Calcium 7.9 L Magnesium Total Bilirubin 2.90 H Direct Bilirubin AST 98 H ALT Alkaline Phosphatase 196 H Ammonia CK-MB (CK-2) Rel Index C-Reactive Protein Total Protein 4.3 L D Albumin 2.2 L Vitamin B1 Vitamin B12 25-OH Vitamin D Total Free T4 T3 (GILSON) Urine Creatinine Urine Total Protein Acetaminophen 06/26/18 06/26/18 06/26/18 14:54 15:08 15:10 WBC 14.2 H RBC 5.66 H Hgb 14.5 H Hct 45.6 H D MCV MCH 26 L RDW 19.4 H Plt Count Lymph % (Auto) [place] % (Auto) Lymph # [place] # Seg Neutrophils % Seg Neuts % (Manual) 88.0 H Lymphocytes % (Manual) 5.0 L Monocytes % (Manual) Seg Neutrophils # Seg Neutrophils # Man 12.5 H Lymphocytes # (Manual) 0.7 L Monocytes # (Manual) 0.9 H POC ABG pH POC ABG pCO2 POC ABG pO2 Sodium Potassium Chloride Carbon Dioxide BUN Creatinine Glucose POC Glucose 172 H Lactic Acid 11.90 H* Uric Acid Calcium Magnesium Total Bilirubin Direct Bilirubin AST ALT Alkaline Phosphatase Ammonia CK-MB (CK-2) Rel Index C-Reactive Protein Total Protein Albumin Vitamin B1 Vitamin B12 25-OH Vitamin D Total Free T4 T3 (GILSON) Urine Creatinine Urine Total Protein Acetaminophen 06/26/18 06/26/18 06/26/18 16:01 18:47 20:55 WBC RBC Hgb Hct MCV MCH RDW Plt Count Lymph % (Auto) [place] % (Auto) Lymph # [place] # Seg Neutrophils % Seg Neuts % (Manual) Lymphocytes % (Manual) Monocytes % (Manual) Seg Neutrophils # Seg Neutrophils # Man Lymphocytes # (Manual) Monocytes # (Manual) POC ABG pH POC ABG pCO2 34.0 L POC ABG pO2 Sodium Potassium Chloride Carbon Dioxide BUN Creatinine Glucose POC Glucose 183 H 131 H Lactic Acid Uric Acid Calcium Magnesium Total Bilirubin Direct Bilirubin AST ALT Alkaline Phosphatase Ammonia CK-MB (CK-2) Rel Index C-Reactive Protein Total Protein Albumin Vitamin B1 Vitamin B12 25-OH Vitamin D Total Free T4 T3 (GILSON) Urine Creatinine Urine Total Protein Acetaminophen 06/26/18 06/27/18 06/27/18 21:55 09:29 09:29 WBC RBC Hgb Hct MCV MCH RDW Plt Count Lymph % (Auto) [place] % (Auto) Lymph # [place] # Seg Neutrophils % Seg Neuts % (Manual) Lymphocytes % (Manual) Monocytes % (Manual) Seg Neutrophils # Seg Neutrophils # Man Lymphocytes # (Manual) Monocytes # (Manual) POC ABG pH POC ABG pCO2 POC ABG pO2 Sodium 135 L 135 L Potassium 3.5 L Chloride 91.7 L 91.2 L Carbon Dioxide BUN 35 H 37 H Creatinine 2.3 H 2.1 H Glucose 147 H 104 H POC Glucose Lactic Acid Uric Acid Calcium 8.3 L 8.1 L Magnesium Total Bilirubin 3.50 H Direct Bilirubin AST 218 H ALT 57 H Alkaline Phosphatase 197 H Ammonia CK-MB (CK-2) Rel Index C-Reactive Protein Total Protein 5.0 L Albumin 2.3 L Vitamin B1 Vitamin B12 25-OH Vitamin D Total Free T4 1.78 H T3 (GILSON) Urine Creatinine Urine Total Protein Acetaminophen 06/27/18 06/27/18 06/27/18 09:29 09:29 10:00 WBC 16.3 H RBC 5.44 H Hgb Hct MCV 76 L MCH 25 L RDW 18.3 H Plt Count Lymph % (Auto) [place] % (Auto) Lymph # [place] # Seg Neutrophils % Seg Neuts % (Manual) 91.0 H Lymphocytes % (Manual) 3.0 L Monocytes % (Manual) Seg Neutrophils # Seg Neutrophils # Man 14.8 H Lymphocytes # (Manual) 0.5 L Monocytes # (Manual) 1.0 H POC ABG pH POC ABG pCO2 POC ABG pO2 Sodium Potassium Chloride Carbon Dioxide BUN Creatinine Glucose POC Glucose 106 H Lactic Acid 4.00 H* Uric Acid Calcium Magnesium Total Bilirubin Direct Bilirubin AST ALT Alkaline Phosphatase Ammonia CK-MB (CK-2) Rel Index C-Reactive Protein Total Protein Albumin Vitamin B1 Vitamin B12 25-OH Vitamin D Total Free T4 T3 (GILSON) Urine Creatinine Urine Total Protein Acetaminophen 06/27/18 06/27/18 06/27/18 11:51 12:50 13:39 WBC RBC Hgb Hct MCV MCH RDW Plt Count Lymph % (Auto) [place] % (Auto) Lymph # [place] # Seg Neutrophils % Seg Neuts % (Manual) Lymphocytes % (Manual) Monocytes % (Manual) Seg Neutrophils # Seg Neutrophils # Man Lymphocytes # (Manual) Monocytes # (Manual) POC ABG pH 7.584 H POC ABG pCO2 32.8 L POC ABG pO2 109 H Sodium Potassium Chloride Carbon Dioxide BUN Creatinine Glucose POC Glucose 112 H Lactic Acid 3.20 H* Uric Acid Calcium Magnesium Total Bilirubin Direct Bilirubin AST ALT Alkaline Phosphatase Ammonia CK-MB (CK-2) Rel Index C-Reactive Protein Total Protein Albumin Vitamin B1 Vitamin B12 25-OH Vitamin D Total Free T4 T3 (GILSON) Urine Creatinine Urine Total Protein Acetaminophen 06/27/18 06/27/18 06/27/18 19:31 21:50 23:10 WBC RBC Hgb Hct MCV MCH RDW Plt Count Lymph % (Auto) [place] % (Auto) Lymph # [place] # Seg Neutrophils % Seg Neuts % (Manual) Lymphocytes % (Manual) Monocytes % (Manual) Seg Neutrophils # Seg Neutrophils # Man Lymphocytes # (Manual) Monocytes # (Manual) POC ABG pH POC ABG pCO2 POC ABG pO2 Sodium Potassium Chloride Carbon Dioxide BUN Creatinine Glucose POC Glucose Lactic Acid 2.40 H* 2.30 H* 2.30 H* Uric Acid Calcium Magnesium Total Bilirubin Direct Bilirubin AST ALT Alkaline Phosphatase Ammonia CK-MB (CK-2) Rel Index C-Reactive Protein Total Protein Albumin Vitamin B1 Vitamin B12 25-OH Vitamin D Total Free T4 T3 (GILSON) Urine Creatinine Urine Total Protein Acetaminophen 03/26/19 03/26/19 03/26/19 02:35 05:00 05:00 WBC RBC Hgb Hct MCV MCH RDW Plt Count Lymph % (Auto) [place] % (Auto) Lymph # [place] # Seg Neutrophils % Seg Neuts % (Manual) Lymphocytes % (Manual) Monocytes % (Manual) Seg Neutrophils # Seg Neutrophils # Man Lymphocytes # (Manual) Monocytes # (Manual) POC ABG pH POC ABG pCO2 POC ABG pO2 Sodium 134 L Potassium 2.6 L* D Chloride 92.3 L Carbon Dioxide 32 H BUN 34 H Creatinine 1.8 H Glucose 127 H POC Glucose Lactic Acid 2.20 H* 2.30 H* Uric Acid Calcium 7.5 L Magnesium Total Bilirubin 3.50 H Direct Bilirubin AST 226 H ALT 60 H Alkaline Phosphatase 172 H Ammonia CK-MB (CK-2) Rel Index C-Reactive Protein Total Protein 4.2 L Albumin 2.0 L Vitamin B1 Vitamin B12 25-OH Vitamin D Total Free T4 T3 (GILSON) Urine Creatinine Urine Total Protein Acetaminophen 06/28/18 06/28/18 06/28/18 05:00 08:30 08:30 WBC 15.7 H RBC Hgb Hct MCV 77 L MCH 25 L RDW 18.5 H Plt Count 112 L Lymph % (Auto) 6.0 L [place] % (Auto) 10.0 H Lymph # 0.9 L [place] # 1.6 H Seg Neutrophils % 83.4 H Seg Neuts % (Manual) Lymphocytes % (Manual) Monocytes % (Manual) Seg Neutrophils # 13.1 H Seg Neutrophils # Man Lymphocytes # (Manual) Monocytes # (Manual) POC ABG pH POC ABG pCO2 POC ABG pO2 Sodium Potassium Chloride Carbon Dioxide BUN Creatinine Glucose POC Glucose Lactic Acid 2.40 H* Uric Acid Calcium Magnesium Total Bilirubin Direct Bilirubin AST ALT Alkaline Phosphatase Ammonia CK-MB (CK-2) Rel Index C-Reactive Protein 4.80 H Total Protein Albumin Vitamin B1 Vitamin B12 25-OH Vitamin D Total Free T4 T3 (GILSON) Urine Creatinine Urine Total Protein Acetaminophen 06/28/18 06/28/18 06/28/18 10:53 11:23 18:35 WBC RBC Hgb Hct MCV MCH RDW Plt Count Lymph % (Auto) [place] % (Auto) Lymph # [place] # Seg Neutrophils % Seg Neuts % (Manual) Lymphocytes % (Manual) Monocytes % (Manual) Seg Neutrophils # Seg Neutrophils # Man Lymphocytes # (Manual) Monocytes # (Manual) POC ABG pH 7.552 H POC ABG pCO2 POC ABG pO2 Sodium Potassium 3.1 L Chloride Carbon Dioxide BUN Creatinine Glucose POC Glucose 122 H Lactic Acid Uric Acid Calcium Magnesium Total Bilirubin Direct Bilirubin AST ALT Alkaline Phosphatase Ammonia CK-MB (CK-2) Rel Index C-Reactive Protein Total Protein Albumin Vitamin B1 Vitamin B12 25-OH Vitamin D Total Free T4 T3 (GILSON) Urine Creatinine Urine Total Protein Acetaminophen 06/29/18 06/29/18 06/29/18 06:40 06:40 19:44 WBC 14.6 H RBC Hgb Hct MCV 77 L MCH 25 L RDW 19.3 H Plt Count 88 L Lymph % (Auto) [place] % (Auto) Lymph # [place] # Seg Neutrophils % Seg Neuts % (Manual) Lymphocytes % (Manual) Monocytes % (Manual) Seg Neutrophils # Seg Neutrophils # Man Lymphocytes # (Manual) Monocytes # (Manual) POC ABG pH POC ABG pCO2 POC ABG pO2 Sodium Potassium 2.7 L* Chloride 95.3 L Carbon Dioxide 32 H BUN 25 H Creatinine Glucose 145 H POC Glucose 59 L Lactic Acid Uric Acid Calcium 7.9 L Magnesium Total Bilirubin 3.60 H Direct Bilirubin AST 213 H ALT Alkaline Phosphatase 176 H Ammonia CK-MB (CK-2) Rel Index C-Reactive Protein Total Protein 4.8 L Albumin 2.2 L Vitamin B1 Vitamin B12 25-OH Vitamin D Total Free T4 T3 (GILSON) Urine Creatinine Urine Total Protein Acetaminophen 06/29/18 06/30/18 06/30/18 20:43 02:37 04:45 WBC RBC Hgb Hct MCV MCH RDW Plt Count Lymph % (Auto) [place] % (Auto) Lymph # [place] # Seg Neutrophils % Seg Neuts % (Manual) Lymphocytes % (Manual) Monocytes % (Manual) Seg Neutrophils # Seg Neutrophils # Man Lymphocytes # (Manual) Monocytes # (Manual) POC ABG pH POC ABG pCO2 POC ABG pO2 Sodium Potassium 3.1 L 2.8 L* Chloride Carbon Dioxide 31 H BUN 18 H Creatinine Glucose POC Glucose 59 L Lactic Acid Uric Acid Calcium 8.0 L Magnesium Total Bilirubin 3.70 H Direct Bilirubin AST 216 H ALT 63 H Alkaline Phosphatase 163 H Ammonia CK-MB (CK-2) Rel Index C-Reactive Protein Total Protein 4.5 L Albumin 2.1 L Vitamin B1 Vitamin B12 25-OH Vitamin D Total Free T4 T3 (GILSON) Urine Creatinine Urine Total Protein Acetaminophen 06/30/18 06/30/18 07/01/18 04:45 06:24 04:39 WBC 12.1 H RBC Hgb Hct MCV 78 L 77 L MCH 25 L 25 L RDW 19.0 H 19.3 H Plt Count 91 L 77 L Lymph % (Auto) [place] % (Auto) Lymph # [place] # Seg Neutrophils % Seg Neuts % (Manual) Lymphocytes % (Manual) Monocytes % (Manual) Seg Neutrophils # Seg Neutrophils # Man Lymphocytes # (Manual) Monocytes # (Manual) POC ABG pH POC ABG pCO2 POC ABG pO2 Sodium Potassium Chloride Carbon Dioxide BUN Creatinine Glucose POC Glucose 63 L Lactic Acid Uric Acid Calcium Magnesium Total Bilirubin Direct Bilirubin AST ALT Alkaline Phosphatase Ammonia CK-MB (CK-2) Rel Index C-Reactive Protein Total Protein Albumin Vitamin B1 Vitamin B12 25-OH Vitamin D Total Free T4 T3 ([facility]ILSON) Urine Creatinine Urine Total Protein Acetaminophen 07/01/18 07/01/18 07/02/18 04:39 11:12 05:23 WBC RBC Hgb Hct MCV 77 L MCH 25 L RDW 19.2 H Plt Count 78 L Lymph % (Auto) [place] % (Auto) Lymph # [place] # Seg Neutrophils % Seg Neuts % (Manual) Lymphocytes % (Manual) Monocytes % (Manual) Seg Neutrophils # Seg Neutrophils # Man Lymphocytes # (Manual) Monocytes # (Manual) POC ABG pH POC ABG pCO2 POC ABG pO2 Sodium Potassium 3.5 L D Chloride Carbon Dioxide BUN Creatinine Glucose 109 H POC Glucose 206 H Lactic Acid Uric Acid Calcium 8.1 L Magnesium Total Bilirubin 3.90 H Direct Bilirubin AST 163 H ALT 60 H Alkaline Phosphatase 166 H Ammonia CK-MB (CK-2) Rel Index C-Reactive Protein Total Protein 4.5 L Albumin 2.0 L Vitamin B1 Vitamin B12 25-OH Vitamin D Total Free T4 T3 ([facility]) Urine Creatinine Urine Total Protein Acetaminophen 07/02/18 07/02/18 07/03/18 05:23 12:18 08:14 WBC RBC Hgb Hct MCV 76 L MCH 25 L RDW 19.0 H Plt Count 84 L Lymph % (Auto) [place] % (Auto) Lymph # [place] # Seg Neutrophils % Seg Neuts % (Manual) Lymphocytes % (Manual) Monocytes % (Manual) Seg Neutrophils # Seg Neutrophils # Man Lymphocytes # (Manual) Monocytes # (Manual) POC ABG pH POC ABG pCO2 POC ABG pO2 Sodium 135 L Potassium 3.4 L Chloride Carbon Dioxide BUN Creatinine 0.6 L Glucose POC Glucose 144 H Lactic Acid Uric Acid Calcium 8.3 L Magnesium Total Bilirubin Direct Bilirubin AST ALT Alkaline Phosphatase Ammonia CK-MB (CK-2) Rel Index C-Reactive Protein Total Protein Albumin Vitamin B1 Vitamin B12 25-OH Vitamin D Total Free T4 T3 ([facility]) Urine Creatinine Urine Total Protein Acetaminophen 07/03/18 07/03/18 07/04/18 08:14 16:33 05:36 WBC RBC Hgb Hct MCV 77 L MCH 25 L RDW 18.5 H Plt Count 103 L Lymph % (Auto) [place] % (Auto) Lymph # [place] # Seg Neutrophils % Seg Neuts % (Manual) Lymphocytes % (Manual) Monocytes % (Manual) Seg Neutrophils # Seg Neutrophils # Man Lymphocytes # (Manual) Monocytes # (Manual) POC ABG pH POC ABG pCO2 POC ABG pO2 Sodium 135 L Potassium Chloride 97.7 L Carbon Dioxide BUN Creatinine 0.5 L Glucose POC Glucose 69 L Lactic Acid Uric Acid Calcium 8.2 L Magnesium 1.50 L Total Bilirubin Direct Bilirubin AST ALT Alkaline Phosphatase Ammonia CK-MB (CK-2) Rel Index C-Reactive Protein Total Protein Albumin Vitamin B1 Vitamin B12 25-OH Vitamin D Total Free T4 T3 ([facility]) Urine Creatinine Urine Total Protein Acetaminophen 07/04/18 07/04/18 07/04/18 05:36 08:54 11:47 WBC RBC Hgb Hct MCV MCH RDW Plt Count Lymph % (Auto) [place] % (Auto) Lymph # [place] # Seg Neutrophils % Seg Neuts % (Manual) Lymphocytes % (Manual) Monocytes % (Manual) Seg Neutrophils # Seg Neutrophils # Man Lymphocytes # (Manual) Monocytes # (Manual) POC ABG pH POC ABG pCO2 POC ABG pO2 Sodium 135 L Potassium Chloride Carbon Dioxide BUN Creatinine 0.5 L Glucose POC Glucose 61 L 122 H Lactic Acid Uric Acid Calcium 8.2 L Magnesium Total Bilirubin Direct Bilirubin AST ALT Alkaline Phosphatase Ammonia CK-MB (CK-2) Rel Index C-Reactive Protein Total Protein Albumin Vitamin B1 Vitamin B12 25-OH Vitamin D Total Free T4 T3 ([facility]) Urine Creatinine Urine Total Protein Acetaminophen 07/04/18 07/05/18 07/06/18 16:44 21:15 11:50 WBC RBC Hgb Hct MCV MCH RDW Plt Count Lymph % (Auto) [place] % (Auto) Lymph # [place] # Seg Neutrophils % Seg Neuts % (Manual) Lymphocytes % (Manual) Monocytes % (Manual) Seg Neutrophils # Seg Neutrophils # Man Lymphocytes # (Manual) Monocytes # (Manual) POC ABG pH POC ABG pCO2 POC ABG pO2 Sodium Potassium Chloride Carbon Dioxide BUN Creatinine Glucose POC Glucose 124 H 150 H 67 L Lactic Acid Uric Acid Calcium Magnesium Total Bilirubin Direct Bilirubin AST ALT Alkaline Phosphatase Ammonia CK-MB (CK-2) Rel Index C-Reactive Protein Total Protein Albumin Vitamin B1 Vitamin B12 25-OH Vitamin D Total Free T4 T3 ([facility]) Urine Creatinine Urine Total Protein Acetaminophen 07/06/18 07/06/18 07/06/18 13:32 16:27 21:13 WBC RBC Hgb Hct MCV MCH RDW Plt Count Lymph % (Auto) [place] % (Auto) Lymph # [place] # Seg Neutrophils % Seg Neuts % (Manual) Lymphocytes % (Manual) Monocytes % (Manual) Seg Neutrophils # Seg Neutrophils # Man Lymphocytes # (Manual) Monocytes # (Manual) POC ABG pH POC ABG pCO2 POC ABG pO2 Sodium Potassium Chloride Carbon Dioxide BUN Creatinine Glucose POC Glucose 146 H 125 H 69 L Lactic Acid Uric Acid Calcium Magnesium Total Bilirubin Direct Bilirubin AST ALT Alkaline Phosphatase Ammonia CK-MB (CK-2) Rel Index C-Reactive Protein Total Protein Albumin Vitamin B1 Vitamin B12 25-OH Vitamin D Total Free T4 T3 ([facility]) Urine Creatinine Urine Total Protein Acetaminophen 07/07/18 07/08/18 07/08/18 12:18 04:55 04:55 WBC RBC Hgb Hct MCV 78 L MCH 25 L RDW 18.2 H Plt Count Lymph % (Auto) [place] % (Auto) 14.8 H Lymph # [place] # 1.3 H Seg Neutrophils % Seg Neuts % (Manual) Lymphocytes % (Manual) Monocytes % (Manual) Seg Neutrophils # Seg Neutrophils # Man Lymphocytes # (Manual) Monocytes # (Manual) POC ABG pH POC ABG pCO2 POC ABG pO2 Sodium 136 L Potassium Chloride Carbon Dioxide BUN Creatinine 0.5 L Glucose 110 H POC Glucose 132 H Lactic Acid Uric Acid Calcium 8.0 L Magnesium Total Bilirubin Direct Bilirubin AST ALT Alkaline Phosphatase Ammonia CK-MB (CK-2) Rel Index C-Reactive Protein Total Protein Albumin Vitamin B1 Vitamin B12 25-OH Vitamin D Total Free T4 T3 ([facility]) Urine Creatinine Urine Total Protein Acetaminophen 07/08/18 07/08/18 07/08/18 14:27 17:11 21:20 WBC RBC Hgb Hct MCV MCH RDW Plt Count Lymph % (Auto) [place] % (Auto) Lymph # [place] # Seg Neutrophils % Seg Neuts % (Manual) Lymphocytes % (Manual) Monocytes % (Manual) Seg Neutrophils # Seg Neutrophils # Man Lymphocytes # (Manual) Monocytes # (Manual) POC ABG pH POC ABG pCO2 POC ABG pO2 Sodium Potassium Chloride Carbon Dioxide BUN Creatinine Glucose POC Glucose 133 H 113 H 126 H Lactic Acid Uric Acid Calcium Magnesium Total Bilirubin Direct Bilirubin AST ALT Alkaline Phosphatase Ammonia CK-MB (CK-2) Rel Index C-Reactive Protein Total Protein Albumin Vitamin B1 Vitamin B12 25-OH Vitamin D Total Free T4 T3 ([facility]) Urine Creatinine Urine Total Protein Acetaminophen 07/09/18 07/10/18 07/10/18 17:03 08:36 20:51 WBC RBC Hgb Hct MCV MCH RDW Plt Count Lymph % (Auto) [place] % (Auto) Lymph # [place] # Seg Neutrophils % Seg Neuts % (Manual) Lymphocytes % (Manual) Monocytes % (Manual) Seg Neutrophils # Seg Neutrophils # Man Lymphocytes # (Manual) Monocytes # (Manual) POC ABG pH POC ABG pCO2 POC ABG pO2 Sodium Potassium Chloride Carbon Dioxide BUN Creatinine Glucose POC Glucose 116 H 128 H 159 H Lactic Acid Uric Acid Calcium Magnesium Total Bilirubin Direct Bilirubin AST ALT Alkaline Phosphatase Ammonia CK-MB (CK-2) Rel Index C-Reactive Protein Total Protein Albumin Vitamin B1 Vitamin B12 25-OH Vitamin D Total Free T4 T3 ([facility]) Urine Creatinine Urine Total Protein Acetaminophen 07/11/18 07/11/18 07/11/18 03:22 03:22 12:07 WBC RBC Hgb Hct MCV 78 L MCH 26 L RDW 17.4 H Plt Count Lymph % (Auto) [place] % (Auto) Lymph # [place] # Seg Neutrophils % Seg Neuts % (Manual) Lymphocytes % (Manual) Monocytes % (Manual) 13.0 H Seg Neutrophils # Seg Neutrophils # Man Lymphocytes # (Manual) Monocytes # (Manual) POC ABG pH POC ABG pCO2 POC ABG pO2 Sodium 135 L Potassium Chloride Carbon Dioxide BUN Creatinine 0.6 L Glucose 101 H POC Glucose 345 H Lactic Acid Uric Acid Calcium 8.0 L Magnesium Total Bilirubin 1.50 H Direct Bilirubin AST 63 H ALT Alkaline Phosphatase 350 H Ammonia CK-MB (CK-2) Rel Index C-Reactive Protein Total Protein 5.5 L Albumin 2.0 L Vitamin B1 Vitamin B12 25-OH Vitamin D Total Free T4 T3 ([facility]) Urine Creatinine Urine Total Protein Acetaminophen 07/12/18 07/12/18 07/12/18 07:14 12:05 12:25 WBC RBC Hgb Hct MCV MCH RDW Plt Count Lymph % (Auto) [place] % (Auto) Lymph # [place] # Seg Neutrophils % Seg Neuts % (Manual) Lymphocytes % (Manual) Monocytes % (Manual) Seg Neutrophils # Seg Neutrophils # Man Lymphocytes # (Manual) Monocytes # (Manual) POC ABG pH POC ABG pCO2 POC ABG pO2 Sodium Potassium Chloride Carbon Dioxide BUN Creatinine Glucose POC Glucose 65 L 168 H Lactic Acid Uric Acid Calcium Magnesium Total Bilirubin Direct Bilirubin AST ALT Alkaline Phosphatase Ammonia CK-MB (CK-2) Rel Index 6.0 H C-Reactive Protein Total Protein Albumin Vitamin B1 Vitamin B12 25-OH Vitamin D Total Free T4 T3 ([facility]) Urine Creatinine Urine Total Protein Acetaminophen 07/12/18 07/12/18 07/12/18 16:21 18:12 22:40 WBC RBC Hgb Hct MCV MCH RDW Plt Count Lymph % (Auto) [place] % (Auto) Lymph # [place] # Seg Neutrophils % Seg Neuts % (Manual) Lymphocytes % (Manual) Monocytes % (Manual) Seg Neutrophils # Seg Neutrophils # Man Lymphocytes # (Manual) Monocytes # (Manual) POC ABG pH POC ABG pCO2 POC ABG pO2 Sodium Potassium Chloride Carbon Dioxide BUN Creatinine Glucose POC Glucose 109 H 111 H Lactic Acid Uric Acid Calcium Magnesium Total Bilirubin Direct Bilirubin AST ALT Alkaline Phosphatase Ammonia CK-MB (CK-2) Rel Index 6.2 H C-Reactive Protein Total Protein Albumin Vitamin B1 Vitamin B12 25-OH Vitamin D Total Free T4 T3 ([facility]) Urine Creatinine Urine Total Protein Acetaminophen 07/13/18 07/13/18 07/13/18 00:28 07:25 11:20 WBC RBC Hgb Hct MCV MCH RDW Plt Count Lymph % (Auto) [place] % (Auto) Lymph # [place] # Seg Neutrophils % Seg Neuts % (Manual) Lymphocytes % (Manual) Monocytes % (Manual) Seg Neutrophils # Seg Neutrophils # Man Lymphocytes # (Manual) Monocytes # (Manual) POC ABG pH POC ABG pCO2 POC ABG pO2 Sodium Potassium Chloride Carbon Dioxide BUN Creatinine Glucose POC Glucose 106 H 131 H Lactic Acid Uric Acid Calcium Magnesium Total Bilirubin Direct Bilirubin AST ALT Alkaline Phosphatase Ammonia CK-MB (CK-2) Rel Index 6.0 H C-Reactive Protein Total Protein Albumin Vitamin B1 Vitamin B12 25-OH Vitamin D Total Free T4 T3 ([facility]) Urine Creatinine Urine Total Protein Acetaminophen 07/13/18 07/13/18 07/14/18 16:44 22:55 11:30 WBC RBC Hgb Hct MCV MCH RDW Plt Count Lymph % (Auto) [place] % (Auto) Lymph # [place] # Seg Neutrophils % Seg Neuts % (Manual) Lymphocytes % (Manual) Monocytes % (Manual) Seg Neutrophils # Seg Neutrophils # Man Lymphocytes # (Manual) Monocytes # (Manual) POC ABG pH POC ABG pCO2 POC ABG pO2 Sodium Potassium Chloride Carbon Dioxide BUN Creatinine Glucose POC Glucose 127 H 166 H 120 H Lactic Acid Uric Acid Calcium Magnesium Total Bilirubin Direct Bilirubin AST ALT Alkaline Phosphatase Ammonia CK-MB (CK-2) Rel Index C-Reactive Protein Total Protein Albumin Vitamin B1 Vitamin B12 25-OH Vitamin D Total Free T4 T3 ([facility]) Urine Creatinine Urine Total Protein Acetaminophen 07/14/18 07/15/18 16:45 11:44 WBC RBC Hgb Hct MCV MCH RDW Plt Count Lymph % (Auto) [place] % (Auto) Lymph # [place] # Seg Neutrophils % Seg Neuts % (Manual) Lymphocytes % (Manual) Monocytes % (Manual) Seg Neutrophils # Seg Neutrophils # Man Lymphocytes # (Manual) Monocytes # (Manual) POC ABG pH POC ABG pCO2 POC ABG pO2 Sodium Potassium Chloride Carbon Dioxide BUN Creatinine Glucose POC Glucose 69 L 187 H Lactic Acid Uric Acid Calcium Magnesium Total Bilirubin Direct Bilirubin AST ALT Alkaline Phosphatase Ammonia CK-MB (CK-2) Rel Index C-Reactive Protein Total Protein Albumin Vitamin B1 Vitamin B12 25-OH Vitamin D Total Free T4 T3 ([facility]) Urine Creatinine Urine Total Protein Acetaminophen Allied health notes reviewed: nursing
[2018-07-15] MEDS: LANOXIN PO SCH (19:33)
[2018-07-16] MEDS: LOPRESSOR PO SCH ×5 (02:53→23:55)
[2018-07-16 05:45] LABS: Hematocrit 33.9 % (30.3-42.9); Hemoglobin 10.9 gm/dl (10.1-14.3); Mean Corpuscular HGB Conc 32 % (30-34); Mean Corpuscular Volume 78 fl (79-97); Platelet Count 275 K/mm3 (140-440); Red Blood Count 4.34 M/mm3 (3.65-5.03); Red Cell Distribution Width 17.6 % (13.2-15.2)
[2018-07-16] MEDS: LASIX PO SCH ×3 (05:51→23:55)
[2018-07-16 06:05] LABS: BUN/Creatinine Ratio 18; Blood Urea Nitrogen 9 mg/dL (7-17); Calcium 8.4 mg/dL (8.4-10.2); Hemolysis Index 4
[2018-07-16] MEDS: HumaLOG SUB-Q SCH ×4 (07:30→23:54)
[2018-07-16] MEDS: DUONEB *Not for PRN Use IH SCH ×3 (08:54→19:55)
[2018-07-16] MEDS: ELIQUIS PO SCH ×2 (10:12→23:33)
[2018-07-16] MEDS: ZOLOFT PO SCH (10:13)
[2018-07-16] MEDS: PEPCID PO SCH (10:13)
[2018-07-16] MEDS: ZESTRIL PO SCH (10:13)
--- NOTE | 2018-07-16 12:29 | Progress Note ---
Assessment and Plan Assessment and plan: Chest pain resolved today Troponins neg, EKG Serial cardiac enzymes Nitrosublingual prn Acute Respiratory failure following Cardiac Arrest - ? PEA from hypoglycemia or Haldol administration- now off the ventilator and on nasal canula Patient improved s/p Cardiac arrest after Haldol: listed Haldol as an Allergy/Adverse drug. Severe NICM also contributed to the evant Patient stable Severe NICM, Acute on Chronic systolic CHF of EF 20-25%, - patient has been on hospice before, it appears she was discharged from home hospice. 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 Will benefit from Subacute Rehab placement as recommeded by PT History Interval history: Chest pain on and off No SOB currently Awaiting placement Hospitalist Physical - Physical exam Narrative exam: GEN: Not in acute distress, lying in bed, obese HEENT: Normocephalic, atraumatic, Neck: supple, No JVD heart: S1 and S2 reg, no murmurs, rubs or gallop Lungs: Clear to auscultation bilat, no crackles, no wheeze Abd:soft, non tender, non distended, normal bowel sounds Ext: No edema, no clubbing, no cyanosis Neuro:Awake,alert, moves all ext. - Constitutional Vitals: Temp Pulse Resp BP Pulse Ox 97.5 F L 103 H 18 122/66 98 07/16/18 08:17 07/16/18 09:04 07/16/18 09:04 07/16/18 10:13 07/16/18 08:54 General appearance: Present: no acute distress, well-nourished Results - Labs CBC & Chem 7: 07/16/18 02:05 07/16/18 02:05 Labs: Laboratory Last Values WBC 5.1 K/mm3 (4.5-11.0) 07/16/18 02:05 RBC 4.34 M/mm3 (3.65-5.03) 07/16/18 02:05 Hgb 10.9 gm/dl (10.1-14.3) 07/16/18 02:05 Hct 33.9 % (30.3-42.9) 07/16/18 02:05 MCV 78 fl (79-97) L 07/16/18 02:05 MCH 25 pg (28-32) L 07/16/18 02:05 MCHC 32 % (30-34) 07/16/18 02:05 RDW 17.6 % (13.2-15.2) H 07/16/18 02:05 Plt Count 275 K/mm3 (140-440) 07/16/18 02:05 Lymph % (Auto) 20.7 % (13.4-35.0) 07/08/18 04:55 [place] % (Auto) Real Estate Officer 07/11/18 03:22 Eos % (Auto) 1.3 % (0.0-4.3) 07/08/18 04:55 Baso % (Auto) 0.6 % (0.0-1.8) 07/08/18 04:55 Lymph # 1.8 K/mm3 (1.2-5.4) 07/08/18 04:55 [place] # 1.3 K/mm3 (0.0-0.8) H 07/08/18 04:55 Eos # 0.1 K/mm3 (0.0-0.4) 07/08/18 04:55 Baso # 0.1 K/mm3 (0.0-0.1) 07/08/18 04:55 Add Manual Diff Complete 07/11/18 03:22 Total Counted 100 07/11/18 03:22 Seg Neutrophils % 62.6 % (40.0-70.0) 07/08/18 04:55 Seg Neuts % (Manual) 51.0 % (40.0-70.0) 07/11/18 03:22 Band Neutrophils % 0 % 07/11/18 03:22 Lymphocytes % (Manual) 34.0 % (13.4-35.0) 07/11/18 03:22 Reactive Lymphs % (Man) 2.0 % 07/11/18 03:22 Monocytes % (Manual) 13.0 % (0.0-7.3) H 07/11/18 03:22 Eosinophils % (Manual) 0 % (0.0-4.3) 07/11/18 03:22 Basophils % (Manual) 0 % (0.0-1.8) 07/11/18 03:22 Metamyelocytes % 0 % 07/11/18 03:22 Myelocytes % 0 % 07/11/18 03:22 Promyelocytes % 0 % 07/11/18 03:22 Blast Cells % 0 % 07/11/18 03:22 Nucleated RBC % Not Reportable 07/11/18 03:22 Seg Neutrophils # 5.3 K/mm3 (1.8-7.7) 07/08/18 04:55 Seg Neutrophils # Man 2.7 K/mm3 (1.8-7.7) 07/11/18 03:22 Band Neutrophils # 0.0 K/mm3 07/11/18 03:22 Lymphocytes # (Manual) 1.8 K/mm3 (1.2-5.4) 07/11/18 03:22 Abs React Lymphs (Man) 0.1 K/mm3 07/11/18 03:22 Monocytes # (Manual) 0.7 K/mm3 (0.0-0.8) 07/11/18 03:22 Eosinophils # (Manual) 0.0 K/mm3 (0.0-0.4) 07/11/18 03:22 Basophils # (Manual) 0.0 K/mm3 (0.0-0.1) 07/11/18 03:22 Metamyelocytes # 0.0 K/mm3 07/11/18 03:22 Myelocytes # 0.0 K/mm3 07/11/18 03:22 Promyelocytes # 0.0 K/mm3 07/11/18 03:22 Blast Cells # 0.0 K/mm3 07/11/18 03:22 WBC Morphology Not Reportable 07/11/18 03:22 Hypersegmented Neuts Not Reportable 07/11/18 03:22 Hyposegmented Neuts Not Reportable 07/11/18 03:22 Hypogranular Neuts Not Reportable 07/11/18 03:22 Smudge Cells Not Reportable 07/11/18 03:22 Toxic Granulation Not Reportable 07/11/18 03:22 Toxic Vacuolation Not Reportable 07/11/18 03:22 Dohle Bodies Not Reportable 07/11/18 03:22 Pelger-Huet Anomaly Not Reportable 07/11/18 03:22 Sushma Rods Not Reportable 07/11/18 03:22 Platelet Estimate Consistent w auto 07/11/18 03:22 Clumped Platelets Not Reportable 07/11/18 03:22 Plt Clumps, EDTA Not Reportable 07/11/18 03:22 Large Platelets Not Reportable 07/11/18 03:22 Giant Platelets Not Reportable 07/11/18 03:22 Platelet Satelliting Not Reportable 07/11/18 03:22 Plt Morphology Comment Not Reportable 07/11/18 03:22 RBC Morphology Not Reportable 07/11/18 03:22 Dimorphic RBCs Not Reportable 07/11/18 03:22 Polychromasia Not Reportable 07/11/18 03:22 Hypochromasia 2+ 07/11/18 03:22 Poikilocytosis 2+ 07/11/18 03:22 Anisocytosis 1+ 07/11/18 03:22 Microcytosis Not Reportable 07/11/18 03:22 Macrocytosis Not Reportable 07/11/18 03:22 Spherocytes Not Reportable 07/11/18 03:22 Pappenheimer Bodies Not Reportable 07/11/18 03:22 Sickle Cells Not Reportable 07/11/18 03:22 Target Cells 1+ 07/11/18 03:22 Tear Drop Cells Few 07/11/18 03:22 Ovalocytes Few 07/11/18 03:22 Helmet Cells Not Reportable 07/11/18 03:22 [place] Bodies Not Reportable 07/11/18 03:22 [place] Rings Not Reportable 07/11/18 03:22 [place] Cells Not Reportable 07/11/18 03:22 Bite Cells Not Reportable 07/11/18 03:22 Crenated Cell Not Reportable 07/11/18 03:22 Elliptocytes Few 07/11/18 03:22 Acanthocytes (Spur) Not Reportable 07/11/18 03:22 Rouleaux Not Reportable 07/11/18 03:22 Hemoglobin C Crystals Not Reportable 07/11/18 03:22 Schistocytes Not Reportable 07/11/18 03:22 Malaria parasites Not Reportable 07/11/18 03:22 Saqib Bodies Not Reportable 07/11/18 03:22 Hem Pathologist Commnt No 07/11/18 03:22 POC ABG pH 7.552 (7.35-7.45) H 06/28/18 10:53 POC ABG pCO2 40.8 (35-45) 06/28/18 10:53 POC ABG pO2 83 (80-105) 06/28/18 10:53 POC ABG HCO3 35.9 (22-26 mml/L) 06/28/18 10:53 POC ABG Total CO2 37 (23-27mmol/L) 06/28/18 10:53 POC ABG O2 Sat 97 06/28/18 10:53 POC ABG Base Excess 14 ((-2) - (+3)mmol/L) 06/28/18 10:53 FiO2 30 % 06/28/18 10:53 Sodium 136 mmol/L (137-145) L 07/16/18 02:05 Potassium 3.7 mmol/L (3.6-5.0) 07/16/18 02:05 Chloride 100.0 mmol/L (98-107) 07/16/18 02:05 Carbon Dioxide 27 mmol/L (22-30) 07/16/18 02:05 Anion Gap 13 mmol/L 07/16/18 02:05 BUN 9 mg/dL (7-17) 07/16/18 02:05 Creatinine 0.5 mg/dL (0.7-1.2) L 07/16/18 02:05 Estimated GFR > 60 ml/min 07/16/18 02:05 BUN/Creatinine Ratio 18 % 07/16/18 02:05 Glucose 90 mg/dL (65-100) 07/16/18 02:05 POC Glucose 152 (70-105) H 07/16/18 11:56 Hemoglobin A1c 5.5 % (4-6) 06/17/18 15:08 Osmolality 276 Mosm/kg 06/20/18 07:31 Lactic Acid 1.30 mmol/L (0.7-2.0) 07/02/18 23:33 Uric Acid 9.2 mg/dL (3.5-7.6) H 06/21/18 16:27 Calcium 8.4 mg/dL (8.4-10.2) 07/16/18 02:05 Phosphorus 2.50 mg/dL (2.5-4.5) 06/20/18 07:31 Magnesium 1.50 mg/dL (1.7-2.3) L 07/03/18 08:14 Total Bilirubin 1.50 mg/dL (0.1-1.2) H 07/11/18 03:22 Direct Bilirubin 1.6 mg/dL (0-0.2) H 06/17/18 11:00 Indirect Bilirubin -1.4 mg/dL 06/17/18 11:00 AST 63 units/L (5-40) H 07/11/18 03:22 ALT 53 units/L (7-56) 07/11/18 03:22 Alkaline Phosphatase 350 units/L (35-129) H 07/11/18 03:22 Ammonia 38.0 umol/L (25-60) 06/25/18 16:02 Total Creatine Kinase 43 units/L (30-135) 07/13/18 00:28 CK-MB (CK-2) 2.6 ng/mL (0.0-4.0) 07/13/18 00:28 CK-MB (CK-2) Rel Index 6.0 (0-4) H 07/13/18 00:28 Troponin T 0.017 ng/mL (0.00-0.029) 07/13/18 00:28 C-Reactive Protein 4.80 mg/dL (0.00-1.30) H 06/28/18 05:00 Total Protein 5.5 g/dL (6.3-8.2) L 07/11/18 03:22 Albumin 2.0 g/dL (3.9-5) L 07/11/18 03:22 Albumin/Globulin Ratio 0.6 % 07/11/18 03:22 Vitamin B1 <6 nmol/L (8-30) L 06/21/18 16:27 Vitamin B12 1598 pg/mL (211-911) H 06/20/18 20:53 25-OH Vitamin D Total 10 ng/mL (30-100) L 06/20/18 20:53 25-Hydroxy Vitamin D2 . 06/20/18 20:53 25-Hydroxy Vitamin D3 . 06/20/18 20:53 Folate 14.18 ng/mL (7.3-26.0) 06/20/18 20:53 TSH 1.540 mlU/mL (0.270-4.200) 06/27/18 09:29 Free T4 1.78 ng/dL (0.76-1.46) H 06/27/18 09:29 T3 (GILSON) 58 ng/dL (76-181) L 06/20/18 16:51 Urine Color Caryl (Yellow) 06/16/18 Unknown Urine Turbidity Clear (Clear) 06/16/18 Unknown Urine pH 5.0 (5.0-7.0) 06/16/18 Unknown Ur Specific [place] 1.025 (1.003-1.030) 06/16/18 Unknown Urine Protein 100 mg/dl mg/dL (Negative) 06/16/18 Unknown Urine Glucose (UA) 50 mg/dL (Negative) 06/16/18 Unknown Urine Ketones Neg mg/dL (Negative) 06/16/18 Unknown Urine Blood Neg (Negative) 06/16/18 Unknown Urine Nitrite Neg (Negative) 06/16/18 Unknown Urine Bilirubin Neg (Negative) 06/16/18 Unknown Urine Urobilinogen 4.0 mg/dL (<2.0) 06/16/18 Unknown Ur Leukocyte Esterase Neg (Negative) 06/16/18 Unknown Urine WBC (Auto) 4.0 /HPF (0.0-6.0) 06/16/18 Unknown Urine RBC (Auto) 5.0 /HPF (0.0-6.0) 06/16/18 Unknown U Epithel Cells (Auto) 7.0 /HPF (0-13.0) 06/16/18 Unknown Hyaline Casts 49 /LPF 06/16/18 Unknown Urine Mucus Few /HPF 06/16/18 Unknown Urine Osmolality 413 Mosm/kg 06/19/18 Unknown Urine Creatinine 61.7 mg/dL (0.1-20.0) H 06/19/18 Unknown Urine Total Protein 32 mg/dL (5-11.8) H 06/19/18 Unknown Salicylates 5.5 mg/dL (2.8-20.0) 06/16/18 21:43 Urine Opiates Screen Presumptive negative 06/16/18 Unknown Urine Methadone Screen Presumptive negative 06/16/18 Unknown Acetaminophen < 5.0 ug/mL (10.0-30.0) L 06/16/18 21:43 Ur Barbiturates Screen Presumptive negative 06/16/18 Unknown Ur Phencyclidine Scrn Presumptive negative 06/16/18 Unknown Ur Amphetamines Screen Presumptive negative 06/16/18 Unknown U Benzodiazepines Scrn Presumptive negative 06/16/18 Unknown Urine Cocaine Screen Presumptive negative 06/16/18 Unknown U Marijuana (THC) Screen Presumptive negative 06/16/18 Unknown Drugs of Abuse Note Disclamer 06/16/18 Unknown Plasma/Serum Alcohol < 0.01 % (0-0.07) 06/16/18 21:43 Thyroglobulin Antibody See scanned result 06/20/18 16:51 Thyroid Peroxidase Ab See scanned result 06/20/18 16:51 HIV 1&2 Antibody Rapid Non react (Non React) 06/21/18 16:27 HIV P24 Antigen Non react (Non React) 06/21/18 16:27 Active Medications - Current Medications Current Medications: Generic Name Dose Route Start Last Admin Trade Name Freq PRN Reason Stop Dose Admin Acetaminophen 650 mg 06/17/18 03:33 07/11/18 02:57 Tylenol PO 650 mg Q4H PRN Administration Fever >101 Albuterol/Ipratropium 1 ampul 06/27/18 14:00 07/16/18 08:54 Duoneb *Not For Prn Use* IH 1 ampul TIDRT JEANETTE Administration Apixaban 5 mg 06/20/18 16:00 07/16/18 10:12 Eliquis PO 5 mg Q12HR JEANETTE Administration Protocol Atorvastatin Calcium 20 mg 06/19/18 22:00 07/15/18 21:20 Lipitor PO 20 mg QHS JEANETTE Administration Dextrose 50 ml 07/01/18 11:50 07/12/18 08:58 D50w (25gm) Syringe IV 50 ml PRN PRN Administration Hypoglycemia Digoxin 0.125 mg 06/24/18 17:00 07/15/18 19:33 Lanoxin PO 0.125 mg DAILY@1700 JEANETTE Administration Famotidine 20 mg 06/27/18 12:00 07/16/18 10:13 Pepcid PO 20 mg DAILY JEANETTE Administration Furosemide 20 mg 07/05/18 18:00 07/16/18 05:51 Lasix PO 20 mg 0600,1800 JEANETTE Administration Insulin Human Lispro 0 unit 07/01/18 16:30 07/16/18 12:26 Humalog SUB-Q 1 unit ACHS JEANETTE Administration Protocol Lactulose 20 gm 07/04/18 12:00 Cephulac PO Q6HR PRN CONSTIPATION Lisinopril 2.5 mg 07/12/18 10:00 07/16/18 10:13 Zestril PO 2.5 mg QDAY JEANETTE Administration Metoprolol Tartrate 25 mg 06/25/18 09:00 07/16/18 10:14 Lopressor PO 25 mg Q8H JEANETTE Administration Nitroglycerin 0.4 mg 07/12/18 12:22 07/12/18 12:32 Nitrostat SL 0.4 mg .Q5MIN PRN Administration Chest Pain Ondansetron HCl 4 mg 06/17/18 03:24 Zofran IV Q8H PRN Nausea And Vomiting Sertraline HCl 50 mg 06/24/18 10:00 07/16/18 10:13 Zoloft PO 50 mg DAILY JEANETTE Administration Nutrition/Malnutrition Assess - Dietary Evaluation Nutrition/Malnutrition Findings: Nutrition Notes Start: 06/24/18 15:14 Freq: Status: Active Protocol: Document 07/14/18 14:54 RM (Rec: 07/14/18 15:03 RM [id number]) Nutrition Notes Initial or Follow up Reassessment Current Diagnosis Acute Kidney Injury, Hypertension,Heart Failure, Respiratory Failure Other Pertinent Diagnosis Severe depression,Dementia, s/ p cardiac arrest, psychosis, AMS Current Diet Mechanical Soft w/chopped meat Labs/Tests No recent labs Pertinent Medications Lasix Height 5 ft 5 in Weight 82.3 kg Fifty Six Body Weight (kg) 56.81 BMI 30.2 Subjective/Other Information Per tech pt sips the Ensure Clear. Recorded PO intake 75% X 2 meals. Percent of energy/protein needs met: 98%/94% Burn Absent Trauma Absent #1 Nutrition Diagnosis Inadequate oral intake As Evidenced by Signs and Symptoms pt meeting 98% of calorie and 94% of protein needs Diagnosis Progress(for reassessment Resolved documentation) Is patient on ventilator? No Is Patient Ambulatory and/or Out of Bed No REE-([facility]-confined to bed) [phone] Calculation Used for Recommendations Jeanmarie Munguia Additional Notes Pro needs 1-1.2g/k-96 g/ day Fluid needs 1ml/kcall Nutrition Intervention Change Diet Order: Continue current Add Supplement/Snack (indicate name/kcal Ensure Clear 1 daily /protein ) Provides kCal: 240 Provides Protein (gm) 8 Goal #1 Continue to meet at least 75% of energy and protein needs via PO intake Anticipated Discharge Needs: Mechanical Soft Follow-Up By: 07/20/18 Additional Comments Follow for PO and ONS intakes
--- NOTE | 2018-07-16 14:31 | Progress Note ---
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 Bili Likely congestive hepatopathy, Severe protein calorie malnutrition Hypokalemia -ABGs and CXR prn -Anticoagulated on Eliquis -Supplemental oxygen to keep O2 sats>90% -Accuchecks with glycemic control Target blood glucose of 140-180mg/dl -Cardioprotective measures, heart failure measures -Psychosis management per Psych services -PT/OT as tolerated -Aspiration precautions -Glycemic control -Influenza and pneumonia vaccinations per protocol -Continue all other care per primary service Discharge planning CONDITION: FAIR PROGNOSIS: POOR LONG-TERM CODE STATUS: FULL CODE PER DOCUMENTATION Subjective Date of service: 07/16/18 Principal diagnosis: altered mental status, psychosis, chronic systolic heart failure, Interval history: Patient is seen today for: s/p Cardiopulmonary arrest; acute hypoxemic respiratory failure; Cardiomyopathy; Psychosis Seen and examined at bedside; 24-hour events reviewed; nursing and respiratory care staff consulted; Vitals, labs, medications, chart reviewed; no adverse overnight events reported to me; On going agitation with intermittent confusion. Denies any chest pain, no shortness of breath, on oxygen at 2LNC Objective Vital Signs - 12hr 07/16/18 07/16/18 07/16/18 02:49 02:50 02:51 Temperature 98.6 F Pulse Rate 68 85 93 H Pulse Rate [ Anterior Bilateral Throughout] Respiratory 20 Rate Respiratory Rate [Anterior Bilateral Throughout] Blood Pressure 135/58 O2 Sat by Pulse 96 96 100 Oximetry 07/16/18 07/16/18 07/16/18 02:53 08:16 08:17 Temperature 97.5 F L Pulse Rate 68 96 H Pulse Rate [ Anterior Bilateral Throughout] Respiratory 20 Rate Respiratory Rate [Anterior Bilateral Throughout] Blood Pressure 131/58 122/66 O2 Sat by Pulse 99 Oximetry 07/16/18 07/16/18 07/16/18 08:54 09:04 10:13 Temperature Pulse Rate Pulse Rate [ 93 H 103 H Anterior Bilateral Throughout] Respiratory Rate Respiratory 18 18 Rate [Anterior Bilateral Throughout] Blood Pressure 122/66 O2 Sat by Pulse 98 Oximetry 07/16/18 14:10 Temperature 97.6 F Pulse Rate Pulse Rate [ Anterior Bilateral Throughout] Respiratory 20 Rate Respiratory Rate [Anterior Bilateral Throughout] Blood Pressure 105/60 O2 Sat by Pulse Oximetry Constitutional: no acute distress, asleep, other (Confusing at times.) Eyes: non-icteric, other (Pupils 4mm, sluggichly reacting to light) ENT: oropharynx dry, other (extubated) Neck: supple, no lymphadenopathy, no JVD, other (no thyromegaly) Effort: normal Ascultation: Bilateral: diminished breath sounds, rales Percussion: Bilateral: not dull Cardiovascular: irregular rhythm, other (S1,S2,) Gastrointestinal: normoactive bowel sounds, soft, non-tender, non-distended Integumentary: rash (exematoid rash to upper chest) Extremities: no cyanosis, no edema, pulses normal, no ischemia or petechiae Neurologic: normal mental status, non-focal exam (grossly), pupils equal and round, CN II-XII normal Psychiatric: depressed CBC and BMP: 07/16/18 02:05 07/16/18 02:05 ABG, PT/INR, D-dimer: ABG POC ABG pH 7.552 (7.35-7.45) H 06/28/18 10:53 POC ABG pCO2 40.8 (35-45) 06/28/18 10:53 POC ABG pO2 83 (80-105) 06/28/18 10:53 POC ABG HCO3 35.9 (22-26 mml/L) 06/28/18 10:53 POC ABG Total CO2 37 (23-27mmol/L) 06/28/18 10:53 POC ABG O2 Sat 97 06/28/18 10:53 Abnormal lab findings: Abnormal Labs 06/16/18 06/16/18 06/16/18 21:05 21:43 21:43 WBC RBC Hgb Hct MCV MCH RDW Plt Count Lymph % (Auto) [place] % (Auto) Lymph # [place] # Seg Neutrophils % Seg Neuts % (Manual) Lymphocytes % (Manual) Monocytes % (Manual) Seg Neutrophils # Seg Neutrophils # Man Lymphocytes # (Manual) Monocytes # (Manual) POC ABG pH POC ABG pCO2 POC ABG pO2 Sodium 129 L Potassium Chloride 95.3 L Carbon Dioxide 14 L BUN 23 H Creatinine Glucose 146 H POC Glucose < 40 L Lactic Acid Uric Acid Calcium Magnesium Total Bilirubin Direct Bilirubin AST ALT Alkaline Phosphatase Ammonia CK-MB (CK-2) Rel Index C-Reactive Protein Total Protein Albumin Vitamin B1 Vitamin B12 25-OH Vitamin D Total Free T4 T3 (GILSON) Urine Creatinine Urine Total Protein Acetaminophen < 5.0 L 06/16/18 06/16/18 06/16/18 21:43 21:43 22:27 WBC RBC 5.70 H Hgb Hct 44.6 H MCV 78 L MCH 25 L RDW 18.7 H Plt Count Lymph % (Auto) [place] % (Auto) Lymph # [place] # Seg Neutrophils % 78.8 H Seg Neuts % (Manual) Lymphocytes % (Manual) Monocytes % (Manual) Seg Neutrophils # Seg Neutrophils # Man Lymphocytes # (Manual) Monocytes # (Manual) POC ABG pH POC ABG pCO2 POC ABG pO2 Sodium Potassium Chloride Carbon Dioxide BUN Creatinine Glucose POC Glucose 121 H Lactic Acid Uric Acid Calcium Magnesium Total Bilirubin Direct Bilirubin AST ALT Alkaline Phosphatase Ammonia CK-MB (CK-2) Rel Index C-Reactive Protein Total Protein Albumin Vitamin B1 Vitamin B12 25-OH Vitamin D Total Free T4 1.87 H T3 (GILSON) Urine Creatinine Urine Total Protein Acetaminophen 06/16/18 06/16/18 06/17/18 22:33 23:43 03:56 WBC RBC Hgb Hct MCV MCH RDW Plt Count Lymph % (Auto) [place] % (Auto) Lymph # [place] # Seg Neutrophils % Seg Neuts % (Manual) Lymphocytes % (Manual) Monocytes % (Manual) Seg Neutrophils # Seg Neutrophils # Man Lymphocytes # (Manual) Monocytes # (Manual) POC ABG pH POC ABG pCO2 POC ABG pO2 Sodium Potassium Chloride Carbon Dioxide BUN Creatinine Glucose POC Glucose Lactic Acid 4.40 H* 4.30 H* 3.10 H* Uric Acid Calcium Magnesium Total Bilirubin Direct Bilirubin AST ALT Alkaline Phosphatase Ammonia CK-MB (CK-2) Rel Index C-Reactive Protein Total Protein Albumin Vitamin B1 Vitamin B12 25-OH Vitamin D Total Free T4 T3 (GILSON) Urine Creatinine Urine Total Protein Acetaminophen 06/17/18 06/17/18 06/17/18 08:35 08:40 11:00 WBC RBC Hgb Hct MCV MCH RDW Plt Count Lymph % (Auto) [place] % (Auto) Lymph # [place] # Seg Neutrophils % Seg Neuts % (Manual) Lymphocytes % (Manual) Monocytes % (Manual) Seg Neutrophils # Seg Neutrophils # Man Lymphocytes # (Manual) Monocytes # (Manual) POC ABG pH POC ABG pCO2 POC ABG pO2 Sodium Potassium Chloride Carbon Dioxide BUN Creatinine Glucose POC Glucose 56 L Lactic Acid 2.70 H* 3.40 H* Uric Acid Calcium Magnesium Total Bilirubin Direct Bilirubin AST ALT Alkaline Phosphatase Ammonia CK-MB (CK-2) Rel Index C-Reactive Protein Total Protein Albumin Vitamin B1 Vitamin B12 25-OH Vitamin D Total Free T4 T3 (GILSON) Urine Creatinine Urine Total Protein Acetaminophen 06/17/18 06/17/18 06/17/18 11:00 11:00 11:00 WBC 11.9 H RBC 5.25 H Hgb Hct MCV MCH 25 L RDW 18.6 H Plt Count Lymph % (Auto) [place] % (Auto) Lymph # [place] # Seg Neutrophils % Seg Neuts % (Manual) Lymphocytes % (Manual) Monocytes % (Manual) Seg Neutrophils # Seg Neutrophils # Man Lymphocytes # (Manual) Monocytes # (Manual) POC ABG pH POC ABG pCO2 POC ABG pO2 Sodium 128 L Potassium Chloride 95.6 L Carbon Dioxide 15 L BUN 22 H Creatinine Glucose 110 H POC Glucose Lactic Acid Uric Acid Calcium 8.3 L Magnesium Total Bilirubin Direct Bilirubin 1.6 H AST 66 H ALT Alkaline Phosphatase 178 H Ammonia CK-MB (CK-2) Rel Index C-Reactive Protein Total Protein 4.7 L Albumin 2.4 L Vitamin B1 Vitamin B12 25-OH Vitamin D Total Free T4 T3 (GILSON) Urine Creatinine Urine Total Protein Acetaminophen 06/17/18 06/17/18 06/17/18 15:08 15:08 23:00 WBC RBC Hgb Hct MCV MCH RDW Plt Count Lymph % (Auto) [place] % (Auto) Lymph # [place] # Seg Neutrophils % Seg Neuts % (Manual) Lymphocytes % (Manual) Monocytes % (Manual) Seg Neutrophils # Seg Neutrophils # Man Lymphocytes # (Manual) Monocytes # (Manual) POC ABG pH POC ABG pCO2 POC ABG pO2 Sodium Potassium Chloride Carbon Dioxide BUN Creatinine Glucose POC Glucose Lactic Acid 4.00 H* Uric Acid Calcium Magnesium Total Bilirubin Direct Bilirubin AST ALT Alkaline Phosphatase Ammonia 10.0 L CK-MB (CK-2) Rel Index C-Reactive Protein Total Protein Albumin Vitamin B1 Vitamin B12 25-OH Vitamin D Total Free T4 1.53 H T3 (GILSON) Urine Creatinine Urine Total Protein Acetaminophen 06/18/18 06/18/18 06/18/18 08:59 08:59 12:49 WBC RBC 5.29 H Hgb Hct MCV 78 L MCH 25 L RDW 18.4 H Plt Count Lymph % (Auto) [place] % (Auto) Lymph # [place] # Seg Neutrophils % Seg Neuts % (Manual) Lymphocytes % (Manual) Monocytes % (Manual) Seg Neutrophils # Seg Neutrophils # Man Lymphocytes # (Manual) Monocytes # (Manual) POC ABG pH POC ABG pCO2 POC ABG pO2 Sodium 128 L Potassium 5.9 H D Chloride 96.1 L Carbon Dioxide 20 L BUN 22 H Creatinine Glucose POC Glucose 60 L Lactic Acid Uric Acid Calcium Magnesium Total Bilirubin Direct Bilirubin AST ALT Alkaline Phosphatase Ammonia CK-MB (CK-2) Rel Index C-Reactive Protein Total Protein Albumin Vitamin B1 Vitamin B12 25-OH Vitamin D Total Free T4 T3 (GILSON) Urine Creatinine Urine Total Protein Acetaminophen 06/18/18 06/19/18 06/19/18 21:28 12:14 13:23 WBC RBC Hgb Hct MCV MCH RDW Plt Count Lymph % (Auto) [place] % (Auto) Lymph # [place] # Seg Neutrophils % Seg Neuts % (Manual) Lymphocytes % (Manual) Monocytes % (Manual) Seg Neutrophils # Seg Neutrophils # Man Lymphocytes # (Manual) Monocytes # (Manual) POC ABG pH POC ABG pCO2 POC ABG pO2 Sodium 122 L Potassium 5.4 H Chloride 95.0 L Carbon Dioxide 13 L D BUN 21 H Creatinine Glucose 119 H POC Glucose 114 H Lactic Acid Uric Acid Calcium 8.3 L Magnesium Total Bilirubin Direct Bilirubin AST ALT Alkaline Phosphatase Ammonia CK-MB (CK-2) Rel Index C-Reactive Protein Total Protein Albumin Vitamin B1 Vitamin B12 25-OH Vitamin D Total Free T4 T3 (GILSON) Urine Creatinine Urine Total Protein Acetaminophen 06/19/18 06/19/18 06/19/18 14:47 16:38 22:42 WBC RBC 5.51 H Hgb Hct 45.3 H MCV MCH 25 L RDW 18.6 H Plt Count Lymph % (Auto) [place] % (Auto) Lymph # [place] # Seg Neutrophils % Seg Neuts % (Manual) Lymphocytes % (Manual) Monocytes % (Manual) Seg Neutrophils # Seg Neutrophils # Man Lymphocytes # (Manual) Monocytes # (Manual) POC ABG pH POC ABG pCO2 POC ABG pO2 Sodium Potassium Chloride Carbon Dioxide BUN Creatinine Glucose POC Glucose 108 H 49 L Lactic Acid Uric Acid Calcium Magnesium Total Bilirubin Direct Bilirubin AST ALT Alkaline Phosphatase Ammonia CK-MB (CK-2) Rel Index C-Reactive Protein Total Protein Albumin Vitamin B1 Vitamin B12 25-OH Vitamin D Total Free T4 T3 (GILSON) Urine Creatinine Urine Total Protein Acetaminophen 06/19/18 06/20/18 06/20/18 Unknown 07:31 16:51 WBC RBC Hgb Hct MCV MCH RDW Plt Count Lymph % (Auto) [place] % (Auto) Lymph # [place] # Seg Neutrophils % Seg Neuts % (Manual) Lymphocytes % (Manual) Monocytes % (Manual) Seg Neutrophils # Seg Neutrophils # Man Lymphocytes # (Manual) Monocytes # (Manual) POC ABG pH POC ABG pCO2 POC ABG pO2 Sodium 132 L D Potassium Chloride 94.3 L Carbon Dioxide BUN 20 H Creatinine Glucose POC Glucose Lactic Acid Uric Acid 8.6 H Calcium Magnesium 1.30 L Total Bilirubin Direct Bilirubin AST ALT Alkaline Phosphatase Ammonia CK-MB (CK-2) Rel Index C-Reactive Protein Total Protein Albumin Vitamin B1 Vitamin B12 25-OH Vitamin D Total Free T4 T3 (GILSON) 58 L Urine Creatinine 61.7 H Urine Total Protein 32 H Acetaminophen 06/20/18 06/20/18 06/21/18 20:53 20:53 16:27 WBC RBC Hgb Hct MCV MCH RDW Plt Count Lymph % (Auto) [place] % (Auto) Lymph # [place] # Seg Neutrophils % Seg Neuts % (Manual) Lymphocytes % (Manual) Monocytes % (Manual) Seg Neutrophils # Seg Neutrophils # Man Lymphocytes # (Manual) Monocytes # (Manual) POC ABG pH POC ABG pCO2 POC ABG pO2 Sodium Potassium Chloride Carbon Dioxide BUN Creatinine Glucose POC Glucose Lactic Acid Uric Acid 9.2 H Calcium Magnesium Total Bilirubin Direct Bilirubin AST ALT Alkaline Phosphatase Ammonia CK-MB (CK-2) Rel Index C-Reactive Protein Total Protein Albumin Vitamin B1 Vitamin B12 1598 H 25-OH Vitamin D Total 10 L Free T4 T3 (GILSON) Urine Creatinine Urine Total Protein Acetaminophen 06/21/18 06/21/18 06/21/18 16:27 16:27 16:27 WBC RBC 5.26 H Hgb Hct MCV 77 L MCH 26 L RDW 17.7 H Plt Count Lymph % (Auto) [place] % (Auto) Lymph # [place] # Seg Neutrophils % Seg Neuts % (Manual) Lymphocytes % (Manual) Monocytes % (Manual) Seg Neutrophils # Seg Neutrophils # Man Lymphocytes # (Manual) Monocytes # (Manual) POC ABG pH POC ABG pCO2 POC ABG pO2 Sodium 130 L Potassium Chloride 95.6 L Carbon Dioxide BUN 24 H Creatinine Glucose POC Glucose Lactic Acid Uric Acid Calcium Magnesium Total Bilirubin Direct Bilirubin AST ALT Alkaline Phosphatase Ammonia CK-MB (CK-2) Rel Index C-Reactive Protein Total Protein Albumin Vitamin B1 <6 L Vitamin B12 25-OH Vitamin D Total Free T4 T3 (GILSON) Urine Creatinine Urine Total Protein Acetaminophen 06/21/18 06/22/18 06/23/18 21:44 21:42 14:54 WBC RBC 5.07 H Hgb Hct MCV 78 L MCH 25 L RDW 18.5 H Plt Count Lymph % (Auto) [place] % (Auto) 12.3 H Lymph # 1.0 L [place] # Seg Neutrophils % Seg Neuts % (Manual) Lymphocytes % (Manual) Monocytes % (Manual) Seg Neutrophils # Seg Neutrophils # Man Lymphocytes # (Manual) Monocytes # (Manual) POC ABG pH POC ABG pCO2 POC ABG pO2 Sodium Potassium Chloride Carbon Dioxide BUN Creatinine Glucose POC Glucose 126 H 114 H Lactic Acid Uric Acid Calcium Magnesium Total Bilirubin Direct Bilirubin AST ALT Alkaline Phosphatase Ammonia CK-MB (CK-2) Rel Index C-Reactive Protein Total Protein Albumin Vitamin B1 Vitamin B12 25-OH Vitamin D Total Free T4 T3 (GILSON) Urine Creatinine Urine Total Protein Acetaminophen 06/23/18 06/25/18 06/25/18 14:54 00:00 00:00 WBC 3.6 L RBC 5.31 H Hgb Hct MCV 77 L MCH 26 L RDW 19.0 H Plt Count Lymph % (Auto) [place] % (Auto) 10.2 H Lymph # [place] # Seg Neutrophils % Seg Neuts % (Manual) Lymphocytes % (Manual) Monocytes % (Manual) Seg Neutrophils # Seg Neutrophils # Man Lymphocytes # (Manual) Monocytes # (Manual) POC ABG pH POC ABG pCO2 POC ABG pO2 Sodium 132 L 131 L Potassium 3.5 L Chloride 91.5 L 93.5 L Carbon Dioxide BUN 19 H 21 H Creatinine Glucose POC Glucose Lactic Acid Uric Acid Calcium 8.1 L Magnesium Total Bilirubin 2.80 H 2.70 H Direct Bilirubin AST 52 H 81 H ALT Alkaline Phosphatase 231 H 243 H Ammonia CK-MB (CK-2) Rel Index C-Reactive Protein Total Protein 5.5 L 5.5 L Albumin 2.8 L 2.7 L Vitamin B1 Vitamin B12 25-OH Vitamin D Total Free T4 T3 (GILSON) Urine Creatinine Urine Total Protein Acetaminophen 06/25/18 06/25/18 06/25/18 16:02 16:02 16:18 WBC 3.9 L RBC 5.78 H Hgb 14.6 H Hct 45.4 H MCV MCH 25 L RDW 19.2 H Plt Count Lymph % (Auto) [place] % (Auto) Lymph # [place] # Seg Neutrophils % Seg Neuts % (Manual) Lymphocytes % (Manual) Monocytes % (Manual) Seg Neutrophils # Seg Neutrophils # Man Lymphocytes # (Manual) 1.1 L Monocytes # (Manual) POC ABG pH POC ABG pCO2 POC ABG pO2 Sodium 131 L Potassium Chloride 90.0 L Carbon Dioxide BUN 25 H Creatinine 1.4 H Glucose POC Glucose Lactic Acid 4.00 H* Uric Acid Calcium Magnesium Total Bilirubin 3.10 H Direct Bilirubin AST 68 H ALT Alkaline Phosphatase 296 H Ammonia CK-MB (CK-2) Rel Index C-Reactive Protein Total Protein 6.1 L Albumin 3.3 L Vitamin B1 Vitamin B12 25-OH Vitamin D Total Free T4 T3 (GILSON) Urine Creatinine Urine Total Protein Acetaminophen 06/25/18 06/26/18 06/26/18 21:06 11:33 11:37 WBC RBC Hgb Hct MCV MCH 26 L RDW 19.2 H Plt Count 139 L Lymph % (Auto) [place] % (Auto) Lymph # [place] # Seg Neutrophils % Seg Neuts % (Manual) 85.0 H Lymphocytes % (Manual) 6.0 L Monocytes % (Manual) Seg Neutrophils # Seg Neutrophils # Man 8.0 H Lymphocytes # (Manual) 0.6 L Monocytes # (Manual) POC ABG pH POC ABG pCO2 POC ABG pO2 Sodium Potassium Chloride Carbon Dioxide BUN Creatinine Glucose POC Glucose < 40 L Lactic Acid 6.40 H* Uric Acid Calcium Magnesium Total Bilirubin Direct Bilirubin AST ALT Alkaline Phosphatase Ammonia CK-MB (CK-2) Rel Index C-Reactive Protein Total Protein Albumin Vitamin B1 Vitamin B12 25-OH Vitamin D Total Free T4 T3 (GILSON) Urine Creatinine Urine Total Protein Acetaminophen 06/26/18 06/26/18 06/26/18 11:37 11:51 11:59 WBC RBC Hgb Hct MCV MCH RDW Plt Count Lymph % (Auto) [place] % (Auto) Lymph # [place] # Seg Neutrophils % Seg Neuts % (Manual) Lymphocytes % (Manual) Monocytes % (Manual) Seg Neutrophils # Seg Neutrophils # Man Lymphocytes # (Manual) Monocytes # (Manual) POC ABG pH 7.029 L POC ABG pCO2 POC ABG pO2 73 L Sodium 129 L Potassium Chloride 87.0 L Carbon Dioxide 11 L D BUN 31 H Creatinine 1.9 H Glucose 206 H POC Glucose 253 H Lactic Acid Uric Acid Calcium 7.9 L Magnesium Total Bilirubin 2.90 H Direct Bilirubin AST 98 H ALT Alkaline Phosphatase 196 H Ammonia CK-MB (CK-2) Rel Index C-Reactive Protein Total Protein 4.3 L D Albumin 2.2 L Vitamin B1 Vitamin B12 25-OH Vitamin D Total Free T4 T3 (GILSON) Urine Creatinine Urine Total Protein Acetaminophen 06/26/18 06/26/18 06/26/18 14:54 15:08 15:10 WBC 14.2 H RBC 5.66 H Hgb 14.5 H Hct 45.6 H D MCV MCH 26 L RDW 19.4 H Plt Count Lymph % (Auto) [place] % (Auto) Lymph # [place] # Seg Neutrophils % Seg Neuts % (Manual) 88.0 H Lymphocytes % (Manual) 5.0 L Monocytes % (Manual) Seg Neutrophils # Seg Neutrophils # Man 12.5 H Lymphocytes # (Manual) 0.7 L Monocytes # (Manual) 0.9 H POC ABG pH POC ABG pCO2 POC ABG pO2 Sodium Potassium Chloride Carbon Dioxide BUN Creatinine Glucose POC Glucose 172 H Lactic Acid 11.90 H* Uric Acid Calcium Magnesium Total Bilirubin Direct Bilirubin AST ALT Alkaline Phosphatase Ammonia CK-MB (CK-2) Rel Index C-Reactive Protein Total Protein Albumin Vitamin B1 Vitamin B12 25-OH Vitamin D Total Free T4 T3 (GILSON) Urine Creatinine Urine Total Protein Acetaminophen 06/26/18 06/26/18 06/26/18 16:01 18:47 20:55 WBC RBC Hgb Hct MCV MCH RDW Plt Count Lymph % (Auto) [place] % (Auto) Lymph # [place] # Seg Neutrophils % Seg Neuts % (Manual) Lymphocytes % (Manual) Monocytes % (Manual) Seg Neutrophils # Seg Neutrophils # Man Lymphocytes # (Manual) Monocytes # (Manual) POC ABG pH POC ABG pCO2 34.0 L POC ABG pO2 Sodium Potassium Chloride Carbon Dioxide BUN Creatinine Glucose POC Glucose 183 H 131 H Lactic Acid Uric Acid Calcium Magnesium Total Bilirubin Direct Bilirubin AST ALT Alkaline Phosphatase Ammonia CK-MB (CK-2) Rel Index C-Reactive Protein Total Protein Albumin Vitamin B1 Vitamin B12 25-OH Vitamin D Total Free T4 T3 (GILSON) Urine Creatinine Urine Total Protein Acetaminophen 06/26/18 06/27/18 06/27/18 21:55 09:29 09:29 WBC RBC Hgb Hct MCV MCH RDW Plt Count Lymph % (Auto) [place] % (Auto) Lymph # [place] # Seg Neutrophils % Seg Neuts % (Manual) Lymphocytes % (Manual) Monocytes % (Manual) Seg Neutrophils # Seg Neutrophils # Man Lymphocytes # (Manual) Monocytes # (Manual) POC ABG pH POC ABG pCO2 POC ABG pO2 Sodium 135 L 135 L Potassium 3.5 L Chloride 91.7 L 91.2 L Carbon Dioxide BUN 35 H 37 H Creatinine 2.3 H 2.1 H Glucose 147 H 104 H POC Glucose Lactic Acid Uric Acid Calcium 8.3 L 8.1 L Magnesium Total Bilirubin 3.50 H Direct Bilirubin AST 218 H ALT 57 H Alkaline Phosphatase 197 H Ammonia CK-MB (CK-2) Rel Index C-Reactive Protein Total Protein 5.0 L Albumin 2.3 L Vitamin B1 Vitamin B12 25-OH Vitamin D Total Free T4 1.78 H T3 (GILSON) Urine Creatinine Urine Total Protein Acetaminophen 06/27/18 06/27/18 06/27/18 09:29 09:29 10:00 WBC 16.3 H RBC 5.44 H Hgb Hct MCV 76 L MCH 25 L RDW 18.3 H Plt Count Lymph % (Auto) [place] % (Auto) Lymph # [place] # Seg Neutrophils % Seg Neuts % (Manual) 91.0 H Lymphocytes % (Manual) 3.0 L Monocytes % (Manual) Seg Neutrophils # Seg Neutrophils # Man 14.8 H Lymphocytes # (Manual) 0.5 L Monocytes # (Manual) 1.0 H POC ABG pH POC ABG pCO2 POC ABG pO2 Sodium Potassium Chloride Carbon Dioxide BUN Creatinine Glucose POC Glucose 106 H Lactic Acid 4.00 H* Uric Acid Calcium Magnesium Total Bilirubin Direct Bilirubin AST ALT Alkaline Phosphatase Ammonia CK-MB (CK-2) Rel Index C-Reactive Protein Total Protein Albumin Vitamin B1 Vitamin B12 25-OH Vitamin D Total Free T4 T3 (GILSON) Urine Creatinine Urine Total Protein Acetaminophen 06/27/18 06/27/18 06/27/18 11:51 12:50 13:39 WBC RBC Hgb Hct MCV MCH RDW Plt Count Lymph % (Auto) [place] % (Auto) Lymph # [place] # Seg Neutrophils % Seg Neuts % (Manual) Lymphocytes % (Manual) Monocytes % (Manual) Seg Neutrophils # Seg Neutrophils # Man Lymphocytes # (Manual) Monocytes # (Manual) POC ABG pH 7.584 H POC ABG pCO2 32.8 L POC ABG pO2 109 H Sodium Potassium Chloride Carbon Dioxide BUN Creatinine Glucose POC Glucose 112 H Lactic Acid 3.20 H* Uric Acid Calcium Magnesium Total Bilirubin Direct Bilirubin AST ALT Alkaline Phosphatase Ammonia CK-MB (CK-2) Rel Index C-Reactive Protein Total Protein Albumin Vitamin B1 Vitamin B12 25-OH Vitamin D Total Free T4 T3 (GILSON) Urine Creatinine Urine Total Protein Acetaminophen 06/27/18 06/27/18 06/27/18 19:31 21:50 23:10 WBC RBC Hgb Hct MCV MCH RDW Plt Count Lymph % (Auto) [place] % (Auto) Lymph # [place] # Seg Neutrophils % Seg Neuts % (Manual) Lymphocytes % (Manual) Monocytes % (Manual) Seg Neutrophils # Seg Neutrophils # Man Lymphocytes # (Manual) Monocytes # (Manual) POC ABG pH POC ABG pCO2 POC ABG pO2 Sodium Potassium Chloride Carbon Dioxide BUN Creatinine Glucose POC Glucose Lactic Acid 2.40 H* 2.30 H* 2.30 H* Uric Acid Calcium Magnesium Total Bilirubin Direct Bilirubin AST ALT Alkaline Phosphatase Ammonia CK-MB (CK-2) Rel Index C-Reactive Protein Total Protein Albumin Vitamin B1 Vitamin B12 25-OH Vitamin D Total Free T4 T3 (GILSON) Urine Creatinine Urine Total Protein Acetaminophen 06/28/18 06/28/18 06/28/18 02:35 05:00 05:00 WBC RBC Hgb Hct MCV MCH RDW Plt Count Lymph % (Auto) [place] % (Auto) Lymph # [place] # Seg Neutrophils % Seg Neuts % (Manual) Lymphocytes % (Manual) Monocytes % (Manual) Seg Neutrophils # Seg Neutrophils # Man Lymphocytes # (Manual) Monocytes # (Manual) POC ABG pH POC ABG pCO2 POC ABG pO2 Sodium 134 L Potassium 2.6 L* D Chloride 92.3 L Carbon Dioxide 32 H BUN 34 H Creatinine 1.8 H Glucose 127 H POC Glucose Lactic Acid 2.20 H* 2.30 H* Uric Acid Calcium 7.5 L Magnesium Total Bilirubin 3.50 H Direct Bilirubin AST 226 H ALT 60 H Alkaline Phosphatase 172 H Ammonia CK-MB (CK-2) Rel Index C-Reactive Protein Total Protein 4.2 L Albumin 2.0 L Vitamin B1 Vitamin B12 25-OH Vitamin D Total Free T4 T3 (GILSON) Urine Creatinine Urine Total Protein Acetaminophen 06/28/18 06/28/18 06/28/18 05:00 08:30 08:30 WBC 15.7 H RBC Hgb Hct MCV 77 L MCH 25 L RDW 18.5 H Plt Count 112 L Lymph % (Auto) 6.0 L [place] % (Auto) 10.0 H Lymph # 0.9 L [place] # 1.6 H Seg Neutrophils % 83.4 H Seg Neuts % (Manual) Lymphocytes % (Manual) Monocytes % (Manual) Seg Neutrophils # 13.1 H Seg Neutrophils # Man Lymphocytes # (Manual) Monocytes # (Manual) POC ABG pH POC ABG pCO2 POC ABG pO2 Sodium Potassium Chloride Carbon Dioxide BUN Creatinine Glucose POC Glucose Lactic Acid 2.40 H* Uric Acid Calcium Magnesium Total Bilirubin Direct Bilirubin AST ALT Alkaline Phosphatase Ammonia CK-MB (CK-2) Rel Index C-Reactive Protein 4.80 H Total Protein Albumin Vitamin B1 Vitamin B12 25-OH Vitamin D Total Free T4 T3 (GILSON) Urine Creatinine Urine Total Protein Acetaminophen 06/28/18 06/28/18 06/28/18 10:53 11:23 18:35 WBC RBC Hgb Hct MCV MCH RDW Plt Count Lymph % (Auto) [place] % (Auto) Lymph # [place] # Seg Neutrophils % Seg Neuts % (Manual) Lymphocytes % (Manual) Monocytes % (Manual) Seg Neutrophils # Seg Neutrophils # Man Lymphocytes # (Manual) Monocytes # (Manual) POC ABG pH 7.552 H POC ABG pCO2 POC ABG pO2 Sodium Potassium 3.1 L Chloride Carbon Dioxide BUN Creatinine Glucose POC Glucose 122 H Lactic Acid Uric Acid Calcium Magnesium Total Bilirubin Direct Bilirubin AST ALT Alkaline Phosphatase Ammonia CK-MB (CK-2) Rel Index C-Reactive Protein Total Protein Albumin Vitamin B1 Vitamin B12 25-OH Vitamin D Total Free T4 T3 (GILSON) Urine Creatinine Urine Total Protein Acetaminophen 06/29/18 06/29/18 06/29/18 06:40 06:40 19:44 WBC 14.6 H RBC Hgb Hct MCV 77 L MCH 25 L RDW 19.3 H Plt Count 88 L Lymph % (Auto) [place] % (Auto) Lymph # [place] # Seg Neutrophils % Seg Neuts % (Manual) Lymphocytes % (Manual) Monocytes % (Manual) Seg Neutrophils # Seg Neutrophils # Man Lymphocytes # (Manual) Monocytes # (Manual) POC ABG pH POC ABG pCO2 POC ABG pO2 Sodium Potassium 2.7 L* Chloride 95.3 L Carbon Dioxide 32 H BUN 25 H Creatinine Glucose 145 H POC Glucose 59 L Lactic Acid Uric Acid Calcium 7.9 L Magnesium Total Bilirubin 3.60 H Direct Bilirubin AST 213 H ALT Alkaline Phosphatase 176 H Ammonia CK-MB (CK-2) Rel Index C-Reactive Protein Total Protein 4.8 L Albumin 2.2 L Vitamin B1 Vitamin B12 25-OH Vitamin D Total Free T4 T3 (GILSON) Urine Creatinine Urine Total Protein Acetaminophen 06/29/18 06/30/18 06/30/18 20:43 02:37 04:45 WBC RBC Hgb Hct MCV MCH RDW Plt Count Lymph % (Auto) [place] % (Auto) Lymph # [place] # Seg Neutrophils % Seg Neuts % (Manual) Lymphocytes % (Manual) Monocytes % (Manual) Seg Neutrophils # Seg Neutrophils # Man Lymphocytes # (Manual) Monocytes # (Manual) POC ABG pH POC ABG pCO2 POC ABG pO2 Sodium Potassium 3.1 L 2.8 L* Chloride Carbon Dioxide 31 H BUN 18 H Creatinine Glucose POC Glucose 59 L Lactic Acid Uric Acid Calcium 8.0 L Magnesium Total Bilirubin 3.70 H Direct Bilirubin AST 216 H ALT 63 H Alkaline Phosphatase 163 H Ammonia CK-MB (CK-2) Rel Index C-Reactive Protein Total Protein 4.5 L Albumin 2.1 L Vitamin B1 Vitamin B12 25-OH Vitamin D Total Free T4 T3 ([facility]) Urine Creatinine Urine Total Protein Acetaminophen 06/30/18 06/30/18 07/01/18 04:45 06:24 04:39 WBC 12.1 H RBC Hgb Hct MCV 78 L 77 L MCH 25 L 25 L RDW 19.0 H 19.3 H Plt Count 91 L 77 L Lymph % (Auto) [place] % (Auto) Lymph # [place] # Seg Neutrophils % Seg Neuts % (Manual) Lymphocytes % (Manual) Monocytes % (Manual) Seg Neutrophils # Seg Neutrophils # Man Lymphocytes # (Manual) Monocytes # (Manual) POC ABG pH POC ABG pCO2 POC ABG pO2 Sodium Potassium Chloride Carbon Dioxide BUN Creatinine Glucose POC Glucose 63 L Lactic Acid Uric Acid Calcium Magnesium Total Bilirubin Direct Bilirubin AST ALT Alkaline Phosphatase Ammonia CK-MB (CK-2) Rel Index C-Reactive Protein Total Protein Albumin Vitamin B1 Vitamin B12 25-OH Vitamin D Total Free T4 T3 ([facility]) Urine Creatinine Urine Total Protein Acetaminophen 07/01/18 07/01/18 07/02/18 04:39 11:12 05:23 WBC RBC Hgb Hct MCV 77 L MCH 25 L RDW 19.2 H Plt Count 78 L Lymph % (Auto) [place] % (Auto) Lymph # [place] # Seg Neutrophils % Seg Neuts % (Manual) Lymphocytes % (Manual) Monocytes % (Manual) Seg Neutrophils # Seg Neutrophils # Man Lymphocytes # (Manual) Monocytes # (Manual) POC ABG pH POC ABG pCO2 POC ABG pO2 Sodium Potassium 3.5 L D Chloride Carbon Dioxide BUN Creatinine Glucose 109 H POC Glucose 206 H Lactic Acid Uric Acid Calcium 8.1 L Magnesium Total Bilirubin 3.90 H Direct Bilirubin AST 163 H ALT 60 H Alkaline Phosphatase 166 H Ammonia CK-MB (CK-2) Rel Index C-Reactive Protein Total Protein 4.5 L Albumin 2.0 L Vitamin B1 Vitamin B12 25-OH Vitamin D Total Free T4 T3 ([facility]) Urine Creatinine Urine Total Protein Acetaminophen 07/02/18 07/02/18 07/03/18 05:23 12:18 08:14 WBC RBC Hgb Hct MCV 76 L MCH 25 L RDW 19.0 H Plt Count 84 L Lymph % (Auto) [place] % (Auto) Lymph # [place] # Seg Neutrophils % Seg Neuts % (Manual) Lymphocytes % (Manual) Monocytes % (Manual) Seg Neutrophils # Seg Neutrophils # Man Lymphocytes # (Manual) Monocytes # (Manual) POC ABG pH POC ABG pCO2 POC ABG pO2 Sodium 135 L Potassium 3.4 L Chloride Carbon Dioxide BUN Creatinine 0.6 L Glucose POC Glucose 144 H Lactic Acid Uric Acid Calcium 8.3 L Magnesium Total Bilirubin Direct Bilirubin AST ALT Alkaline Phosphatase Ammonia CK-MB (CK-2) Rel Index C-Reactive Protein Total Protein Albumin Vitamin B1 Vitamin B12 25-OH Vitamin D Total Free T4 T3 ([facility]) Urine Creatinine Urine Total Protein Acetaminophen 07/03/18 07/03/18 07/04/18 08:14 16:33 05:36 WBC RBC Hgb Hct MCV 77 L MCH 25 L RDW 18.5 H Plt Count 103 L Lymph % (Auto) [place] % (Auto) Lymph # [place] # Seg Neutrophils % Seg Neuts % (Manual) Lymphocytes % (Manual) Monocytes % (Manual) Seg Neutrophils # Seg Neutrophils # Man Lymphocytes # (Manual) Monocytes # (Manual) POC ABG pH POC ABG pCO2 POC ABG pO2 Sodium 135 L Potassium Chloride 97.7 L Carbon Dioxide BUN Creatinine 0.5 L Glucose POC Glucose 69 L Lactic Acid Uric Acid Calcium 8.2 L Magnesium 1.50 L Total Bilirubin Direct Bilirubin AST ALT Alkaline Phosphatase Ammonia CK-MB (CK-2) Rel Index C-Reactive Protein Total Protein Albumin Vitamin B1 Vitamin B12 25-OH Vitamin D Total Free T4 T3 ([facility]) Urine Creatinine Urine Total Protein Acetaminophen 07/04/18 07/04/18 07/04/18 05:36 08:54 11:47 WBC RBC Hgb Hct MCV MCH RDW Plt Count Lymph % (Auto) [place] % (Auto) Lymph # [place] # Seg Neutrophils % Seg Neuts % (Manual) Lymphocytes % (Manual) Monocytes % (Manual) Seg Neutrophils # Seg Neutrophils # Man Lymphocytes # (Manual) Monocytes # (Manual) POC ABG pH POC ABG pCO2 POC ABG pO2 Sodium 135 L Potassium Chloride Carbon Dioxide BUN Creatinine 0.5 L Glucose POC Glucose 61 L 122 H Lactic Acid Uric Acid Calcium 8.2 L Magnesium Total Bilirubin Direct Bilirubin AST ALT Alkaline Phosphatase Ammonia CK-MB (CK-2) Rel Index C-Reactive Protein Total Protein Albumin Vitamin B1 Vitamin B12 25-OH Vitamin D Total Free T4 T3 ([facility]) Urine Creatinine Urine Total Protein Acetaminophen 07/04/18 07/05/18 07/06/18 16:44 21:15 11:50 WBC RBC Hgb Hct MCV MCH RDW Plt Count Lymph % (Auto) [place] % (Auto) Lymph # [place] # Seg Neutrophils % Seg Neuts % (Manual) Lymphocytes % (Manual) Monocytes % (Manual) Seg Neutrophils # Seg Neutrophils # Man Lymphocytes # (Manual) Monocytes # (Manual) POC ABG pH POC ABG pCO2 POC ABG pO2 Sodium Potassium Chloride Carbon Dioxide BUN Creatinine Glucose POC Glucose 124 H 150 H 67 L Lactic Acid Uric Acid Calcium Magnesium Total Bilirubin Direct Bilirubin AST ALT Alkaline Phosphatase Ammonia CK-MB (CK-2) Rel Index C-Reactive Protein Total Protein Albumin Vitamin B1 Vitamin B12 25-OH Vitamin D Total Free T4 T3 ([facility]) Urine Creatinine Urine Total Protein Acetaminophen 07/06/18 07/06/18 07/06/18 13:32 16:27 21:13 WBC RBC Hgb Hct MCV MCH RDW Plt Count Lymph % (Auto) [place] % (Auto) Lymph # [place] # Seg Neutrophils % Seg Neuts % (Manual) Lymphocytes % (Manual) Monocytes % (Manual) Seg Neutrophils # Seg Neutrophils # Man Lymphocytes # (Manual) Monocytes # (Manual) POC ABG pH POC ABG pCO2 POC ABG pO2 Sodium Potassium Chloride Carbon Dioxide BUN Creatinine Glucose POC Glucose 146 H 125 H 69 L Lactic Acid Uric Acid Calcium Magnesium Total Bilirubin Direct Bilirubin AST ALT Alkaline Phosphatase Ammonia CK-MB (CK-2) Rel Index C-Reactive Protein Total Protein Albumin Vitamin B1 Vitamin B12 25-OH Vitamin D Total Free T4 T3 ([facility]) Urine Creatinine Urine Total Protein Acetaminophen 07/07/18 07/08/18 07/08/18 12:18 04:55 04:55 WBC RBC Hgb Hct MCV 78 L MCH 25 L RDW 18.2 H Plt Count Lymph % (Auto) [place] % (Auto) 14.8 H Lymph # [place] # 1.3 H Seg Neutrophils % Seg Neuts % (Manual) Lymphocytes % (Manual) Monocytes % (Manual) Seg Neutrophils # Seg Neutrophils # Man Lymphocytes # (Manual) Monocytes # (Manual) POC ABG pH POC ABG pCO2 POC ABG pO2 Sodium 136 L Potassium Chloride Carbon Dioxide BUN Creatinine 0.5 L Glucose 110 H POC Glucose 132 H Lactic Acid Uric Acid Calcium 8.0 L Magnesium Total Bilirubin Direct Bilirubin AST ALT Alkaline Phosphatase Ammonia CK-MB (CK-2) Rel Index C-Reactive Protein Total Protein Albumin Vitamin B1 Vitamin B12 25-OH Vitamin D Total Free T4 T3 ([facility]) Urine Creatinine Urine Total Protein Acetaminophen 07/08/18 07/08/18 07/08/18 14:27 17:11 21:20 WBC RBC Hgb Hct MCV MCH RDW Plt Count Lymph % (Auto) [place] % (Auto) Lymph # [place] # Seg Neutrophils % Seg Neuts % (Manual) Lymphocytes % (Manual) Monocytes % (Manual) Seg Neutrophils # Seg Neutrophils # Man Lymphocytes # (Manual) Monocytes # (Manual) POC ABG pH POC ABG pCO2 POC ABG pO2 Sodium Potassium Chloride Carbon Dioxide BUN Creatinine Glucose POC Glucose 133 H 113 H 126 H Lactic Acid Uric Acid Calcium Magnesium Total Bilirubin Direct Bilirubin AST ALT Alkaline Phosphatase Ammonia CK-MB (CK-2) Rel Index C-Reactive Protein Total Protein Albumin Vitamin B1 Vitamin B12 25-OH Vitamin D Total Free T4 T3 ([facility]) Urine Creatinine Urine Total Protein Acetaminophen 07/09/18 07/10/18 07/10/18 17:03 08:36 20:51 WBC RBC Hgb Hct MCV MCH RDW Plt Count Lymph % (Auto) [place] % (Auto) Lymph # [place] # Seg Neutrophils % Seg Neuts % (Manual) Lymphocytes % (Manual) Monocytes % (Manual) Seg Neutrophils # Seg Neutrophils # Man Lymphocytes # (Manual) Monocytes # (Manual) POC ABG pH POC ABG pCO2 POC ABG pO2 Sodium Potassium Chloride Carbon Dioxide BUN Creatinine Glucose POC Glucose 116 H 128 H 159 H Lactic Acid Uric Acid Calcium Magnesium Total Bilirubin Direct Bilirubin AST ALT Alkaline Phosphatase Ammonia CK-MB (CK-2) Rel Index C-Reactive Protein Total Protein Albumin Vitamin B1 Vitamin B12 25-OH Vitamin D Total Free T4 T3 ([facility]) Urine Creatinine Urine Total Protein Acetaminophen 07/11/18 07/11/18 07/11/18 03:22 03:22 12:07 WBC RBC Hgb Hct MCV 78 L MCH 26 L RDW 17.4 H Plt Count Lymph % (Auto) [place] % (Auto) Lymph # [place] # Seg Neutrophils % Seg Neuts % (Manual) Lymphocytes % (Manual) Monocytes % (Manual) 13.0 H Seg Neutrophils # Seg Neutrophils # Man Lymphocytes # (Manual) Monocytes # (Manual) POC ABG pH POC ABG pCO2 POC ABG pO2 Sodium 135 L Potassium Chloride Carbon Dioxide BUN Creatinine 0.6 L Glucose 101 H POC Glucose 345 H Lactic Acid Uric Acid Calcium 8.0 L Magnesium Total Bilirubin 1.50 H Direct Bilirubin AST 63 H ALT Alkaline Phosphatase 350 H Ammonia CK-MB (CK-2) Rel Index C-Reactive Protein Total Protein 5.5 L Albumin 2.0 L Vitamin B1 Vitamin B12 25-OH Vitamin D Total Free T4 T3 ([facility]) Urine Creatinine Urine Total Protein Acetaminophen 07/12/18 07/12/18 07/12/18 07:14 12:05 12:25 WBC RBC Hgb Hct MCV MCH RDW Plt Count Lymph % (Auto) [place] % (Auto) Lymph # [place] # Seg Neutrophils % Seg Neuts % (Manual) Lymphocytes % (Manual) Monocytes % (Manual) Seg Neutrophils # Seg Neutrophils # Man Lymphocytes # (Manual) Monocytes # (Manual) POC ABG pH POC ABG pCO2 POC ABG pO2 Sodium Potassium Chloride Carbon Dioxide BUN Creatinine Glucose POC Glucose 65 L 168 H Lactic Acid Uric Acid Calcium Magnesium Total Bilirubin Direct Bilirubin AST ALT Alkaline Phosphatase Ammonia CK-MB (CK-2) Rel Index 6.0 H C-Reactive Protein Total Protein Albumin Vitamin B1 Vitamin B12 25-OH Vitamin D Total Free T4 T3 ([facility]) Urine Creatinine Urine Total Protein Acetaminophen 07/12/18 07/12/18 07/12/18 16:21 18:12 22:40 WBC RBC Hgb Hct MCV MCH RDW Plt Count Lymph % (Auto) [place] % (Auto) Lymph # [place] # Seg Neutrophils % Seg Neuts % (Manual) Lymphocytes % (Manual) Monocytes % (Manual) Seg Neutrophils # Seg Neutrophils # Man Lymphocytes # (Manual) Monocytes # (Manual) POC ABG pH POC ABG pCO2 POC ABG pO2 Sodium Potassium Chloride Carbon Dioxide BUN Creatinine Glucose POC Glucose 109 H 111 H Lactic Acid Uric Acid Calcium Magnesium Total Bilirubin Direct Bilirubin AST ALT Alkaline Phosphatase Ammonia CK-MB (CK-2) Rel Index 6.2 H C-Reactive Protein Total Protein Albumin Vitamin B1 Vitamin B12 25-OH Vitamin D Total Free T4 T3 ([facility]) Urine Creatinine Urine Total Protein Acetaminophen 07/13/18 07/13/18 07/13/18 00:28 07:25 11:20 WBC RBC Hgb Hct MCV MCH RDW Plt Count Lymph % (Auto) [place] % (Auto) Lymph # [place] # Seg Neutrophils % Seg Neuts % (Manual) Lymphocytes % (Manual) Monocytes % (Manual) Seg Neutrophils # Seg Neutrophils # Man Lymphocytes # (Manual) Monocytes # (Manual) POC ABG pH POC ABG pCO2 POC ABG pO2 Sodium Potassium Chloride Carbon Dioxide BUN Creatinine Glucose POC Glucose 106 H 131 H Lactic Acid Uric Acid Calcium Magnesium Total Bilirubin Direct Bilirubin AST ALT Alkaline Phosphatase Ammonia CK-MB (CK-2) Rel Index 6.0 H C-Reactive Protein Total Protein Albumin Vitamin B1 Vitamin B12 25-OH Vitamin D Total Free T4 T3 ([facility]) Urine Creatinine Urine Total Protein Acetaminophen 07/13/18 07/13/18 07/14/18 16:44 22:55 11:30 WBC RBC Hgb Hct MCV MCH RDW Plt Count Lymph % (Auto) [place] % (Auto) Lymph # [place] # Seg Neutrophils % Seg Neuts % (Manual) Lymphocytes % (Manual) Monocytes % (Manual) Seg Neutrophils # Seg Neutrophils # Man Lymphocytes # (Manual) Monocytes # (Manual) POC ABG pH POC ABG pCO2 POC ABG pO2 Sodium Potassium Chloride Carbon Dioxide BUN Creatinine Glucose POC Glucose 127 H 166 H 120 H Lactic Acid Uric Acid Calcium Magnesium Total Bilirubin Direct Bilirubin AST ALT Alkaline Phosphatase Ammonia CK-MB (CK-2) Rel Index C-Reactive Protein Total Protein Albumin Vitamin B1 Vitamin B12 25-OH Vitamin D Total Free T4 T3 ([facility]) Urine Creatinine Urine Total Protein Acetaminophen 07/14/18 07/15/18 07/15/18 16:45 11:44 16:42 WBC RBC Hgb Hct MCV MCH RDW Plt Count Lymph % (Auto) [place] % (Auto) Lymph # [place] # Seg Neutrophils % Seg Neuts % (Manual) Lymphocytes % (Manual) Monocytes % (Manual) Seg Neutrophils # Seg Neutrophils # Man Lymphocytes # (Manual) Monocytes # (Manual) POC ABG pH POC ABG pCO2 POC ABG pO2 Sodium Potassium Chloride Carbon Dioxide BUN Creatinine Glucose POC Glucose 69 L 187 H 126 H Lactic Acid Uric Acid Calcium Magnesium Total Bilirubin Direct Bilirubin AST ALT Alkaline Phosphatase Ammonia CK-MB (CK-2) Rel Index C-Reactive Protein Total Protein Albumin Vitamin B1 Vitamin B12 25-OH Vitamin D Total Free T4 T3 ([facility]) Urine Creatinine Urine Total Protein Acetaminophen 07/16/18 07/16/18 07/16/18 02:05 02:05 11:56 WBC RBC Hgb Hct MCV 78 L MCH 25 L RDW 17.6 H Plt Count Lymph % (Auto) [place] % (Auto) Lymph # [place] # Seg Neutrophils % Seg Neuts % (Manual) Lymphocytes % (Manual) Monocytes % (Manual) Seg Neutrophils # Seg Neutrophils # Man Lymphocytes # (Manual) Monocytes # (Manual) POC ABG pH POC ABG pCO2 POC ABG pO2 Sodium 136 L Potassium Chloride Carbon Dioxide BUN Creatinine 0.5 L Glucose POC Glucose 152 H Lactic Acid Uric Acid Calcium Magnesium Total Bilirubin Direct Bilirubin AST ALT Alkaline Phosphatase Ammonia CK-MB (CK-2) Rel Index C-Reactive Protein Total Protein Albumin Vitamin B1 Vitamin B12 25-OH Vitamin D Total Free T4 T3 ([facility]) Urine Creatinine Urine Total Protein Acetaminophen Allied health notes reviewed: nursing
[2018-07-16] MEDS: NORCO 5/325 PO PRN ×2 (14:44→23:33)
[2018-07-16] MEDS: LANOXIN PO SCH (17:53)
[2018-07-17] MEDS: HumaLOG SUB-Q SCH ×5 (00:42→22:08)
[2018-07-17] MEDS: LOPRESSOR PO SCH ×4 (00:57→17:25)
[2018-07-17] MEDS: LASIX PO SCH ×2 (06:22→17:25)
[2018-07-17] MEDS: DUONEB *Not for PRN Use IH SCH ×3 (08:10→21:00)
[2018-07-17] MEDS: PEPCID PO SCH (09:33)
[2018-07-17] MEDS: ELIQUIS PO SCH ×2 (09:33→21:02)
[2018-07-17] MEDS: ZESTRIL PO SCH (09:33)
[2018-07-17] MEDS: ZOLOFT PO SCH (09:34)
--- NOTE | 2018-07-17 11:26 | Progress Note ---
Assessment and Plan Assessment and plan: Chest pain resolved today Troponins neg, EKG Serial cardiac enzymes Nitrosublingual prn Acute Respiratory failure following Cardiac Arrest - ? PEA from hypoglycemia or Haldol administration- now off the ventilator and on nasal canula Patient improved s/p Cardiac arrest after Haldol: listed Haldol as an Allergy/Adverse drug. Severe NICM also contributed to the evant Patient stable Severe NICM, Acute on Chronic systolic CHF of EF 20-25%, - patient has been on hospice before, it appears she was discharged from home hospice. 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 Will benefit from Subacute Rehab placement as recommeded by PT History Interval history: Chest pain on and off No SOB currently Awaiting placement Hospitalist Physical - Physical exam Narrative exam: GEN: Not in acute distress, lying in bed, obese HEENT: Normocephalic, atraumatic, Neck: supple, No JVD heart: S1 and S2 reg, no murmurs, rubs or gallop Lungs: Clear to auscultation bilat, no crackles, no wheeze Abd:soft, non tender, non distended, normal bowel sounds Ext: No edema, no clubbing, no cyanosis Neuro:Awake,alert, moves all ext. - Constitutional Vitals: Temp Pulse Resp BP Pulse Ox 97.4 F L 82 18 132/66 100 07/17/18 07:21 07/17/18 09:34 07/17/18 08:20 07/17/18 09:34 07/17/18 08:10 General appearance: Present: no acute distress, well-nourished Results - Labs CBC & Chem 7: 07/16/18 02:05 07/16/18 02:05 Labs: Laboratory Last Values WBC 5.1 K/mm3 (4.5-11.0) 07/16/18 02:05 RBC 4.34 M/mm3 (3.65-5.03) 07/16/18 02:05 Hgb 10.9 gm/dl (10.1-14.3) 07/16/18 02:05 Hct 33.9 % (30.3-42.9) 07/16/18 02:05 MCV 78 fl (79-97) L 07/16/18 02:05 MCH 25 pg (28-32) L 07/16/18 02:05 MCHC 32 % (30-34) 07/16/18 02:05 RDW 17.6 % (13.2-15.2) H 07/16/18 02:05 Plt Count 275 K/mm3 (140-440) 07/16/18 02:05 Lymph % (Auto) 20.7 % (13.4-35.0) 07/08/18 04:55 [place] % (Auto) Manager Of Software Development 07/11/18 03:22 Eos % (Auto) 1.3 % (0.0-4.3) 07/08/18 04:55 Baso % (Auto) 0.6 % (0.0-1.8) 07/08/18 04:55 Lymph # 1.8 K/mm3 (1.2-5.4) 07/08/18 04:55 [place] # 1.3 K/mm3 (0.0-0.8) H 07/08/18 04:55 Eos # 0.1 K/mm3 (0.0-0.4) 07/08/18 04:55 Baso # 0.1 K/mm3 (0.0-0.1) 07/08/18 04:55 Add Manual Diff Complete 07/11/18 03:22 Total Counted 100 07/11/18 03:22 Seg Neutrophils % 62.6 % (40.0-70.0) 07/08/18 04:55 Seg Neuts % (Manual) 51.0 % (40.0-70.0) 07/11/18 03:22 Band Neutrophils % 0 % 07/11/18 03:22 Lymphocytes % (Manual) 34.0 % (13.4-35.0) 07/11/18 03:22 Reactive Lymphs % (Man) 2.0 % 07/11/18 03:22 Monocytes % (Manual) 13.0 % (0.0-7.3) H 07/11/18 03:22 Eosinophils % (Manual) 0 % (0.0-4.3) 07/11/18 03:22 Basophils % (Manual) 0 % (0.0-1.8) 07/11/18 03:22 Metamyelocytes % 0 % 07/11/18 03:22 Myelocytes % 0 % 07/11/18 03:22 Promyelocytes % 0 % 07/11/18 03:22 Blast Cells % 0 % 07/11/18 03:22 Nucleated RBC % Not Reportable 07/11/18 03:22 Seg Neutrophils # 5.3 K/mm3 (1.8-7.7) 07/08/18 04:55 Seg Neutrophils # Man 2.7 K/mm3 (1.8-7.7) 07/11/18 03:22 Band Neutrophils # 0.0 K/mm3 07/11/18 03:22 Lymphocytes # (Manual) 1.8 K/mm3 (1.2-5.4) 07/11/18 03:22 Abs React Lymphs (Man) 0.1 K/mm3 07/11/18 03:22 Monocytes # (Manual) 0.7 K/mm3 (0.0-0.8) 07/11/18 03:22 Eosinophils # (Manual) 0.0 K/mm3 (0.0-0.4) 07/11/18 03:22 Basophils # (Manual) 0.0 K/mm3 (0.0-0.1) 07/11/18 03:22 Metamyelocytes # 0.0 K/mm3 07/11/18 03:22 Myelocytes # 0.0 K/mm3 07/11/18 03:22 Promyelocytes # 0.0 K/mm3 07/11/18 03:22 Blast Cells # 0.0 K/mm3 07/11/18 03:22 WBC Morphology Not Reportable 07/11/18 03:22 Hypersegmented Neuts Not Reportable 07/11/18 03:22 Hyposegmented Neuts Not Reportable 07/11/18 03:22 Hypogranular Neuts Not Reportable 07/11/18 03:22 Smudge Cells Not Reportable 07/11/18 03:22 Toxic Granulation Not Reportable 07/11/18 03:22 Toxic Vacuolation Not Reportable 07/11/18 03:22 Dohle Bodies Not Reportable 07/11/18 03:22 Pelger-Huet Anomaly Not Reportable 07/11/18 03:22 Sushma Rods Not Reportable 07/11/18 03:22 Platelet Estimate Consistent w auto 07/11/18 03:22 Clumped Platelets Not Reportable 07/11/18 03:22 Plt Clumps, EDTA Not Reportable 07/11/18 03:22 Large Platelets Not Reportable 07/11/18 03:22 Giant Platelets Not Reportable 07/11/18 03:22 Platelet Satelliting Not Reportable 07/11/18 03:22 Plt Morphology Comment Not Reportable 07/11/18 03:22 RBC Morphology Not Reportable 07/11/18 03:22 Dimorphic RBCs Not Reportable 07/11/18 03:22 Polychromasia Not Reportable 07/11/18 03:22 Hypochromasia 2+ 07/11/18 03:22 Poikilocytosis 2+ 07/11/18 03:22 Anisocytosis 1+ 07/11/18 03:22 Microcytosis Not Reportable 07/11/18 03:22 Macrocytosis Not Reportable 07/11/18 03:22 Spherocytes Not Reportable 07/11/18 03:22 Pappenheimer Bodies Not Reportable 07/11/18 03:22 Sickle Cells Not Reportable 07/11/18 03:22 Target Cells 1+ 07/11/18 03:22 Tear Drop Cells Few 07/11/18 03:22 Ovalocytes Few 07/11/18 03:22 Helmet Cells Not Reportable 07/11/18 03:22 [place] Bodies Not Reportable 07/11/18 03:22 [place] Rings Not Reportable 07/11/18 03:22 [place] Cells Not Reportable 07/11/18 03:22 Bite Cells Not Reportable 07/11/18 03:22 Crenated Cell Not Reportable 07/11/18 03:22 Elliptocytes Few 07/11/18 03:22 Acanthocytes (Spur) Not Reportable 07/11/18 03:22 Rouleaux Not Reportable 07/11/18 03:22 Hemoglobin C Crystals Not Reportable 07/11/18 03:22 Schistocytes Not Reportable 07/11/18 03:22 Malaria parasites Not Reportable 07/11/18 03:22 Saqib Bodies Not Reportable 07/11/18 03:22 Hem Pathologist Commnt No 07/11/18 03:22 POC ABG pH 7.552 (7.35-7.45) H 06/28/18 10:53 POC ABG pCO2 40.8 (35-45) 06/28/18 10:53 POC ABG pO2 83 (80-105) 06/28/18 10:53 POC ABG HCO3 35.9 (22-26 mml/L) 06/28/18 10:53 POC ABG Total CO2 37 (23-27mmol/L) 06/28/18 10:53 POC ABG O2 Sat 97 06/28/18 10:53 POC ABG Base Excess 14 ((-2) - (+3)mmol/L) 06/28/18 10:53 FiO2 30 % 06/28/18 10:53 Sodium 136 mmol/L (137-145) L 07/16/18 02:05 Potassium 3.7 mmol/L (3.6-5.0) 07/16/18 02:05 Chloride 100.0 mmol/L (98-107) 07/16/18 02:05 Carbon Dioxide 27 mmol/L (22-30) 07/16/18 02:05 Anion Gap 13 mmol/L 07/16/18 02:05 BUN 9 mg/dL (7-17) 07/16/18 02:05 Creatinine 0.5 mg/dL (0.7-1.2) L 07/16/18 02:05 Estimated GFR > 60 ml/min 07/16/18 02:05 BUN/Creatinine Ratio 18 % 07/16/18 02:05 Glucose 90 mg/dL (65-100) 07/16/18 02:05 POC Glucose 63 (70-105) L 07/17/18 07:24 Hemoglobin A1c 5.5 % (4-6) 06/17/18 15:08 Osmolality 276 Mosm/kg 06/20/18 07:31 Lactic Acid 1.30 mmol/L (0.7-2.0) 07/02/18 23:33 Uric Acid 9.2 mg/dL (3.5-7.6) H 06/21/18 16:27 Calcium 8.4 mg/dL (8.4-10.2) 07/16/18 02:05 Phosphorus 2.50 mg/dL (2.5-4.5) 06/20/18 07:31 Magnesium 1.50 mg/dL (1.7-2.3) L 07/03/18 08:14 Total Bilirubin 1.50 mg/dL (0.1-1.2) H 07/11/18 03:22 Direct Bilirubin 1.6 mg/dL (0-0.2) H 06/17/18 11:00 Indirect Bilirubin -1.4 mg/dL 06/17/18 11:00 AST 63 units/L (5-40) H 07/11/18 03:22 ALT 53 units/L (7-56) 07/11/18 03:22 Alkaline Phosphatase 350 units/L (35-129) H 07/11/18 03:22 Ammonia 38.0 umol/L (25-60) 06/25/18 16:02 Total Creatine Kinase 43 units/L (30-135) 07/13/18 00:28 CK-MB (CK-2) 2.6 ng/mL (0.0-4.0) 07/13/18 00:28 CK-MB (CK-2) Rel Index 6.0 (0-4) H 07/13/18 00:28 Troponin T 0.017 ng/mL (0.00-0.029) 07/13/18 00:28 C-Reactive Protein 4.80 mg/dL (0.00-1.30) H 06/28/18 05:00 Total Protein 5.5 g/dL (6.3-8.2) L 07/11/18 03:22 Albumin 2.0 g/dL (3.9-5) L 07/11/18 03:22 Albumin/Globulin Ratio 0.6 % 07/11/18 03:22 Vitamin B1 <6 nmol/L (8-30) L 06/21/18 16:27 Vitamin B12 1598 pg/mL (211-911) H 06/20/18 20:53 25-OH Vitamin D Total 10 ng/mL (30-100) L 06/20/18 20:53 25-Hydroxy Vitamin D2 . 06/20/18 20:53 25-Hydroxy Vitamin D3 . 06/20/18 20:53 Folate 14.18 ng/mL (7.3-26.0) 06/20/18 20:53 TSH 1.540 mlU/mL (0.270-4.200) 06/27/18 09:29 Free T4 1.78 ng/dL (0.76-1.46) H 06/27/18 09:29 T3 (GILSON) 58 ng/dL (76-181) L 06/20/18 16:51 Urine Color C[place] (Yellow) 06/16/18 Unknown Urine Turbidity Clear (Clear) 06/16/18 Unknown Urine pH 5.0 (5.0-7.0) 06/16/18 Unknown Ur Specific [place] 1.025 (1.003-1.030) 06/16/18 Unknown Urine Protein 100 mg/dl mg/dL (Negative) 06/16/18 Unknown Urine Glucose (UA) 50 mg/dL (Negative) 06/16/18 Unknown Urine Ketones Neg mg/dL (Negative) 06/16/18 Unknown Urine Blood Neg (Negative) 06/16/18 Unknown Urine Nitrite Neg (Negative) 06/16/18 Unknown Urine Bilirubin Neg (Negative) 06/16/18 Unknown Urine Urobilinogen 4.0 mg/dL (<2.0) 06/16/18 Unknown Ur Leukocyte Esterase Neg (Negative) 06/16/18 Unknown Urine WBC (Auto) 4.0 /HPF (0.0-6.0) 06/16/18 Unknown Urine RBC (Auto) 5.0 /HPF (0.0-6.0) 06/16/18 Unknown U Epithel Cells (Auto) 7.0 /HPF (0-13.0) 06/16/18 Unknown Hyaline Casts 49 /LPF 06/16/18 Unknown Urine Mucus Few /HPF 06/16/18 Unknown Urine Osmolality 413 Mosm/kg 06/19/18 Unknown Urine Creatinine 61.7 mg/dL (0.1-20.0) H 06/19/18 Unknown Urine Total Protein 32 mg/dL (5-11.8) H 06/19/18 Unknown Salicylates 5.5 mg/dL (2.8-20.0) 06/16/18 21:43 Urine Opiates Screen Presumptive negative 06/16/18 Unknown Urine Methadone Screen Presumptive negative 06/16/18 Unknown Acetaminophen < 5.0 ug/mL (10.0-30.0) L 06/16/18 21:43 Ur Barbiturates Screen Presumptive negative 06/16/18 Unknown Ur Phencyclidine Scrn Presumptive negative 06/16/18 Unknown Ur Amphetamines Screen Presumptive negative 06/16/18 Unknown U Benzodiazepines Scrn Presumptive negative 06/16/18 Unknown Urine Cocaine Screen Presumptive negative 06/16/18 Unknown U Marijuana (THC) Screen Presumptive negative 06/16/18 Unknown Drugs of Abuse Note Disclamer 06/16/18 Unknown Plasma/Serum Alcohol < 0.01 % (0-0.07) 06/16/18 21:43 Thyroglobulin Antibody See scanned result 06/20/18 16:51 Thyroid Peroxidase Ab See scanned result 06/20/18 16:51 HIV 1&2 Antibody Rapid Non react (Non React) 06/21/18 16:27 HIV P24 Antigen Non react (Non React) 06/21/18 16:27 Active Medications - Current Medications Current Medications: Generic Name Dose Route Start Last Admin Trade Name Freq PRN Reason Stop Dose Admin Acetaminophen 650 mg 06/17/18 03:33 07/11/18 02:57 Tylenol PO 650 mg Q4H PRN Administration Fever >101 Acetaminophen/Hydrocodone Bitart 1 each 07/16/18 14:31 07/16/18 23:33 [place] 5/325 PO 1 each Q6H PRN Administration Pain, Moderate (4-6) Albuterol/Ipratropium 1 ampul 06/27/18 14:00 07/17/18 08:10 Duoneb *Not For Prn Use* IH 1 ampul TIDRT JEANETTE Administration Apixaban 5 mg 06/20/18 16:00 07/17/18 09:33 Eliquis PO 5 mg Q12HR JEANETTE Administration Protocol Atorvastatin Calcium 20 mg 06/19/18 22:00 07/16/18 23:33 Lipitor PO 20 mg QHS JEANETTE Administration Dextrose 50 ml 07/01/18 11:50 07/12/18 08:58 D50w (25gm) Syringe IV 50 ml PRN PRN Administration Hypoglycemia Digoxin 0.125 mg 06/24/18 17:00 07/16/18 17:53 Lanoxin PO 0.125 mg DAILY@1700 JEANETTE Administration Famotidine 20 mg 06/27/18 12:00 07/17/18 09:33 Pepcid PO 20 mg DAILY JEANETTE Administration Furosemide 20 mg 07/05/18 18:00 07/17/18 06:22 Lasix PO 20 mg 0600,1800 JEANETTE Administration Insulin Human Lispro 0 unit 07/01/18 16:30 07/17/18 07:30 Humalog SUB-Q Not Given ACHS [facility] Protocol Lactulose 20 gm 07/04/18 12:00 Cephulac PO Q6HR PRN CONSTIPATION Lisinopril 2.5 mg 07/12/18 10:00 07/17/18 09:33 Zestril PO 2.5 mg QDAY JEANETTE Administration Metoprolol Tartrate 25 mg 06/25/18 09:00 07/17/18 09:34 Lopressor PO 25 mg Q8H JEANETTE Administration Nitroglycerin 0.4 mg 07/12/18 12:22 07/12/18 12:32 Nitrostat SL 0.4 mg .Q5MIN PRN Administration Chest Pain Ondansetron HCl 4 mg 06/17/18 03:24 Zofran IV Q8H PRN Nausea And Vomiting Sertraline HCl 50 mg 06/24/18 10:00 07/17/18 09:34 Zoloft PO 50 mg DAILY JEANETTE Administration Nutrition/Malnutrition Assess - Dietary Evaluation Nutrition/Malnutrition Findings: Nutrition Notes Start: 06/24/18 15:1 4 Freq: Status: Active Protocol: Document 07/14/18 14:54 RM (Rec: 07/14/18 15:03 RM [id number]) Nutrition Notes Initial or Follow up Reassessment Current Diagnosis Acute Kidney Injury, Hypertension,Heart Failure, Respiratory Failure Other Pertinent Diagnosis Severe depression,Dementia, s/ p cardiac arrest, psychosis, AMS Current Diet Mechanical Soft w/chopped meat Labs/Tests No recent labs Pertinent Medications Lasix Height 5 ft 5 in Weight 82.3 kg [place] Body Weight (kg) 56.81 BMI 30.2 Subjective/Other Information Per tech pt sips the Ensure Clear. Recorded PO intake 75% X 2 meals. Percent of energy/protein needs met: 98%/94% Burn Absent Trauma Absent #1 Nutrition Diagnosis Inadequate oral intake As Evidenced by Signs and Symptoms pt meeting 98% of calorie and 94% of protein needs Diagnosis Progress(for reassessment Resolved documentation) Is patient on ventilator? No Is Patient Ambulatory and/or Out of Bed No REE-([facility]-confined to bed) 9845.092 Calculation Used for Recommendations [facility] Additional Notes Pro needs 1-1.2g/k-96 g/ day Fluid needs 1ml/kcall Nutrition Intervention Change Diet Order: Continue current Add Supplement/Snack (indicate name/kcal Ensure Clear 1 daily /protein ) Provides kCal: 240 Provides Protein (gm) 8 Goal #1 Continue to meet at least 75% of energy and protein needs via PO intake Anticipated Discharge Needs: Mechanical Soft Follow-Up By: 07/20/18 Additional Comments Follow for PO and ONS intakes
--- NOTE | 2018-07-17 16:25 | Progress Note ---
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 Bili Likely congestive hepatopathy, Severe protein calorie malnutrition Hypokalemia -ABGs and CXR prn -Anticoagulated on Eliquis -Supplemental oxygen to keep O2 sats>90% -Accuchecks with glycemic control Target blood glucose of 140-180mg/dl -Cardioprotective measures, heart failure measures -Psychosis management per Psych services -PT/OT as tolerated -Aspiration precautions -Glycemic control -Influenza and pneumonia vaccinations per protocol -Continue all other care per primary service Discharge planning CONDITION: FAIR PROGNOSIS: POOR MCC CODE STATUS: FULL CODE PER DOCUMENTATION Subjective Date of service: 07/17/18 Principal diagnosis: altered mental status, psychosis, chronic systolic heart failure, Interval history: Patient is seen today for: s/p Cardiopulmonary arrest; acute hypoxemic respiratory failure; Cardiomyopathy; Psychosis Seen and examined at bedside; 24-hour events reviewed; nursing and respiratory care staff consulted; Vitals, labs, medications, chart reviewed; no adverse overnight events reported to me; On going agitation with intermittent confusion. Denies any chest pain, no shortness of breath, on oxygen at 2LNC Objective Vital Signs - 12hr 07/17/18 07/17/18 07/17/18 07:21 08:10 08:20 Temperature 97.4 F L Pulse Rate 82 Pulse Rate [ 91 H 94 H Anterior Bilateral Throughout] Respiratory 20 Rate Respiratory 18 18 Rate [Anterior Bilateral Throughout] Blood Pressure 132/66 Blood Pressure [Right] O2 Sat by Pulse 96 100 Oximetry 07/17/18 07/17/18 07/17/18 09:33 09:34 13:44 Temperature Pulse Rate 82 82 Pulse Rate [ 75 Anterior Bilateral Throughout] Respiratory Rate Respiratory 18 Rate [Anterior Bilateral Throughout] Blood Pressure 132/66 132/66 Blood Pressure [Right] O2 Sat by Pulse Oximetry 07/17/18 07/17/18 13:54 14:43 Temperature 97.6 F Pulse Rate Pulse Rate [ 87 Anterior Bilateral Throughout] Respiratory Rate Respiratory 18 Rate [Anterior Bilateral Throughout] Blood Pressure Blood Pressure 105/54 [Right] O2 Sat by Pulse 98 Oximetry Constitutional: no acute distress, asleep, other (Confusing at times.) Eyes: non-icteric, other (Pupils 4mm, sluggichly reacting to light) ENT: oropharynx dry, other (extubated) Neck: supple, no lymphadenopathy, no JVD, other (no thyromegaly) Effort: normal Ascultation: Bilateral: diminished breath sounds, rales Percussion: Bilateral: not dull Cardiovascular: irregular rhythm, other (S1,S2,) Gastrointestinal: normoactive bowel sounds, soft, non-tender, non-distended Integumentary: rash (exematoid rash to upper chest) Extremities: no cyanosis, no edema, pulses normal, no ischemia or petechiae Neurologic: normal mental status, non-focal exam (grossly), pupils equal and round, CN II-XII normal Psychiatric: depressed CBC and BMP: 07/16/18 02:05 07/16/18 02:05 ABG, PT/INR, D-dimer: ABG POC ABG pH 7.552 (7.35-7.45) H 06/28/18 10:53 POC ABG pCO2 40.8 (35-45) 06/28/18 10:53 POC ABG pO2 83 (80-105) 06/28/18 10:53 POC ABG HCO3 35.9 (22-26 mml/L) 06/28/18 10:53 POC ABG Total CO2 37 (23-27mmol/L) 06/28/18 10:53 POC ABG O2 Sat 97 06/28/18 10:53 Abnormal lab findings: Abnormal Labs 06/16/18 06/16/18 06/16/18 21:05 21:43 21:43 WBC RBC Hgb Hct MCV MCH RDW Plt Count Lymph % (Auto) [place] % (Auto) Lymph # [place] # Seg Neutrophils % Seg Neuts % (Manual) Lymphocytes % (Manual) Monocytes % (Manual) Seg Neutrophils # Seg Neutrophils # Man Lymphocytes # (Manual) Monocytes # (Manual) POC ABG pH POC ABG pCO2 POC ABG pO2 Sodium 129 L Potassium Chloride 95.3 L Carbon Dioxide 14 L BUN 23 H Creatinine Glucose 146 H POC Glucose < 40 L Lactic Acid Uric Acid Calcium Magnesium Total Bilirubin Direct Bilirubin AST ALT Alkaline Phosphatase Ammonia CK-MB (CK-2) Rel Index C-Reactive Protein Total Protein Albumin Vitamin B1 Vitamin B12 25-OH Vitamin D Total Free T4 T3 (GILSON) Urine Creatinine Urine Total Protein Acetaminophen < 5.0 L 06/16/18 06/16/18 06/16/18 21:43 21:43 22:27 WBC RBC 5.70 H Hgb Hct 44.6 H MCV 78 L MCH 25 L RDW 18.7 H Plt Count Lymph % (Auto) [place] % (Auto) Lymph # [place] # Seg Neutrophils % 78.8 H Seg Neuts % (Manual) Lymphocytes % (Manual) Monocytes % (Manual) Seg Neutrophils # Seg Neutrophils # Man Lymphocytes # (Manual) Monocytes # (Manual) POC ABG pH POC ABG pCO2 POC ABG pO2 Sodium Potassium Chloride Carbon Dioxide BUN Creatinine Glucose POC Glucose 121 H Lactic Acid Uric Acid Calcium Magnesium Total Bilirubin Direct Bilirubin AST ALT Alkaline Phosphatase Ammonia CK-MB (CK-2) Rel Index C-Reactive Protein Total Protein Albumin Vitamin B1 Vitamin B12 25-OH Vitamin D Total Free T4 1.87 H T3 (GILSON) Urine Creatinine Urine Total Protein Acetaminophen 06/16/18 06/16/18 06/17/18 22:33 23:43 03:56 WBC RBC Hgb Hct MCV MCH RDW Plt Count Lymph % (Auto) [place] % (Auto) Lymph # [place] # Seg Neutrophils % Seg Neuts % (Manual) Lymphocytes % (Manual) Monocytes % (Manual) Seg Neutrophils # Seg Neutrophils # Man Lymphocytes # (Manual) Monocytes # (Manual) POC ABG pH POC ABG pCO2 POC ABG pO2 Sodium Potassium Chloride Carbon Dioxide BUN Creatinine Glucose POC Glucose Lactic Acid 4.40 H* 4.30 H* 3.10 H* Uric Acid Calcium Magnesium Total Bilirubin Direct Bilirubin AST ALT Alkaline Phosphatase Ammonia CK-MB (CK-2) Rel Index C-Reactive Protein Total Protein Albumin Vitamin B1 Vitamin B12 25-OH Vitamin D Total Free T4 T3 (GILSON) Urine Creatinine Urine Total Protein Acetaminophen 06/17/18 06/17/18 06/17/18 08:35 08:40 11:00 WBC RBC Hgb Hct MCV MCH RDW Plt Count Lymph % (Auto) [place] % (Auto) Lymph # [place] # Seg Neutrophils % Seg Neuts % (Manual) Lymphocytes % (Manual) Monocytes % (Manual) Seg Neutrophils # Seg Neutrophils # Man Lymphocytes # (Manual) Monocytes # (Manual) POC ABG pH POC ABG pCO2 POC ABG pO2 Sodium Potassium Chloride Carbon Dioxide BUN Creatinine Glucose POC Glucose 56 L Lactic Acid 2.70 H* 3.40 H* Uric Acid Calcium Magnesium Total Bilirubin Direct Bilirubin AST ALT Alkaline Phosphatase Ammonia CK-MB (CK-2) Rel Index C-Reactive Protein Total Protein Albumin Vitamin B1 Vitamin B12 25-OH Vitamin D Total Free T4 T3 (GILSON) Urine Creatinine Urine Total Protein Acetaminophen 06/17/18 06/17/18 06/17/18 11:00 11:00 11:00 WBC 11.9 H RBC 5.25 H Hgb Hct MCV MCH 25 L RDW 18.6 H Plt Count Lymph % (Auto) [place] % (Auto) Lymph # [place] # Seg Neutrophils % Seg Neuts % (Manual) Lymphocytes % (Manual) Monocytes % (Manual) Seg Neutrophils # Seg Neutrophils # Man Lymphocytes # (Manual) Monocytes # (Manual) POC ABG pH POC ABG pCO2 POC ABG pO2 Sodium 128 L Potassium Chloride 95.6 L Carbon Dioxide 15 L BUN 22 H Creatinine Glucose 110 H POC Glucose Lactic Acid Uric Acid Calcium 8.3 L Magnesium Total Bilirubin Direct Bilirubin 1.6 H AST 66 H ALT Alkaline Phosphatase 178 H Ammonia CK-MB (CK-2) Rel Index C-Reactive Protein Total Protein 4.7 L Albumin 2.4 L Vitamin B1 Vitamin B12 25-OH Vitamin D Total Free T4 T3 (GILSON) Urine Creatinine Urine Total Protein Acetaminophen 06/17/18 06/17/18 06/17/18 15:08 15:08 23:00 WBC RBC Hgb Hct MCV MCH RDW Plt Count Lymph % (Auto) [place] % (Auto) Lymph # [place] # Seg Neutrophils % Seg Neuts % (Manual) Lymphocytes % (Manual) Monocytes % (Manual) Seg Neutrophils # Seg Neutrophils # Man Lymphocytes # (Manual) Monocytes # (Manual) POC ABG pH POC ABG pCO2 POC ABG pO2 Sodium Potassium Chloride Carbon Dioxide BUN Creatinine Glucose POC Glucose Lactic Acid 4.00 H* Uric Acid Calcium Magnesium Total Bilirubin Direct Bilirubin AST ALT Alkaline Phosphatase Ammonia 10.0 L CK-MB (CK-2) Rel Index C-Reactive Protein Total Protein Albumin Vitamin B1 Vitamin B12 25-OH Vitamin D Total Free T4 1.53 H T3 (GILSON) Urine Creatinine Urine Total Protein Acetaminophen 06/18/18 06/18/18 06/18/18 08:59 08:59 12:49 WBC RBC 5.29 H Hgb Hct MCV 78 L MCH 25 L RDW 18.4 H Plt Count Lymph % (Auto) [place] % (Auto) Lymph # [place] # Seg Neutrophils % Seg Neuts % (Manual) Lymphocytes % (Manual) Monocytes % (Manual) Seg Neutrophils # Seg Neutrophils # Man Lymphocytes # (Manual) Monocytes # (Manual) POC ABG pH POC ABG pCO2 POC ABG pO2 Sodium 128 L Potassium 5.9 H D Chloride 96.1 L Carbon Dioxide 20 L BUN 22 H Creatinine Glucose POC Glucose 60 L Lactic Acid Uric Acid Calcium Magnesium Total Bilirubin Direct Bilirubin AST ALT Alkaline Phosphatase Ammonia CK-MB (CK-2) Rel Index C-Reactive Protein Total Protein Albumin Vitamin B1 Vitamin B12 25-OH Vitamin D Total Free T4 T3 (GILSON) Urine Creatinine Urine Total Protein Acetaminophen 06/18/18 06/19/18 06/19/18 21:28 12:14 13:23 WBC RBC Hgb Hct MCV MCH RDW Plt Count Lymph % (Auto) [place] % (Auto) Lymph # [place] # Seg Neutrophils % Seg Neuts % (Manual) Lymphocytes % (Manual) Monocytes % (Manual) Seg Neutrophils # Seg Neutrophils # Man Lymphocytes # (Manual) Monocytes # (Manual) POC ABG pH POC ABG pCO2 POC ABG pO2 Sodium 122 L Potassium 5.4 H Chloride 95.0 L Carbon Dioxide 13 L D BUN 21 H Creatinine Glucose 119 H POC Glucose 114 H Lactic Acid Uric Acid Calcium 8.3 L Magnesium Total Bilirubin Direct Bilirubin AST ALT Alkaline Phosphatase Ammonia CK-MB (CK-2) Rel Index C-Reactive Protein Total Protein Albumin Vitamin B1 Vitamin B12 25-OH Vitamin D Total Free T4 T3 (GILSON) Urine Creatinine Urine Total Protein Acetaminophen 06/19/18 06/19/18 06/19/18 14:47 16:38 22:42 WBC RBC 5.51 H Hgb Hct 45.3 H MCV MCH 25 L RDW 18.6 H Plt Count Lymph % (Auto) [place] % (Auto) Lymph # [place] # Seg Neutrophils % Seg Neuts % (Manual) Lymphocytes % (Manual) Monocytes % (Manual) Seg Neutrophils # Seg Neutrophils # Man Lymphocytes # (Manual) Monocytes # (Manual) POC ABG pH POC ABG pCO2 POC ABG pO2 Sodium Potassium Chloride Carbon Dioxide BUN Creatinine Glucose POC Glucose 108 H 49 L Lactic Acid Uric Acid Calcium Magnesium Total Bilirubin Direct Bilirubin AST ALT Alkaline Phosphatase Ammonia CK-MB (CK-2) Rel Index C-Reactive Protein Total Protein Albumin Vitamin B1 Vitamin B12 25-OH Vitamin D Total Free T4 T3 (GILSON) Urine Creatinine Urine Total Protein Acetaminophen 06/19/18 06/20/18 06/20/18 Unknown 07:31 16:51 WBC RBC Hgb Hct MCV MCH RDW Plt Count Lymph % (Auto) [place] % (Auto) Lymph # [place] # Seg Neutrophils % Seg Neuts % (Manual) Lymphocytes % (Manual) Monocytes % (Manual) Seg Neutrophils # Seg Neutrophils # Man Lymphocytes # (Manual) Monocytes # (Manual) POC ABG pH POC ABG pCO2 POC ABG pO2 Sodium 132 L D Potassium Chloride 94.3 L Carbon Dioxide BUN 20 H Creatinine Glucose POC Glucose Lactic Acid Uric Acid 8.6 H Calcium Magnesium 1.30 L Total Bilirubin Direct Bilirubin AST ALT Alkaline Phosphatase Ammonia CK-MB (CK-2) Rel Index C-Reactive Protein Total Protein Albumin Vitamin B1 Vitamin B12 25-OH Vitamin D Total Free T4 T3 (GILSON) 58 L Urine Creatinine 61.7 H Urine Total Protein 32 H Acetaminophen 06/20/18 06/20/18 06/21/18 20:53 20:53 16:27 WBC RBC Hgb Hct MCV MCH RDW Plt Count Lymph % (Auto) [place] % (Auto) Lymph # [place] # Seg Neutrophils % Seg Neuts % (Manual) Lymphocytes % (Manual) Monocytes % (Manual) Seg Neutrophils # Seg Neutrophils # Man Lymphocytes # (Manual) Monocytes # (Manual) POC ABG pH POC ABG pCO2 POC ABG pO2 Sodium Potassium Chloride Carbon Dioxide BUN Creatinine Glucose POC Glucose Lactic Acid Uric Acid 9.2 H Calcium Magnesium Total Bilirubin Direct Bilirubin AST ALT Alkaline Phosphatase Ammonia CK-MB (CK-2) Rel Index C-Reactive Protein Total Protein Albumin Vitamin B1 Vitamin B12 1598 H 25-OH Vitamin D Total 10 L Free T4 T3 (GILSON) Urine Creatinine Urine Total Protein Acetaminophen 06/21/18 06/21/18 06/21/18 16:27 16:27 16:27 WBC RBC 5.26 H Hgb Hct MCV 77 L MCH 26 L RDW 17.7 H Plt Count Lymph % (Auto) [place] % (Auto) Lymph # [place] # Seg Neutrophils % Seg Neuts % (Manual) Lymphocytes % (Manual) Monocytes % (Manual) Seg Neutrophils # Seg Neutrophils # Man Lymphocytes # (Manual) Monocytes # (Manual) POC ABG pH POC ABG pCO2 POC ABG pO2 Sodium 130 L Potassium Chloride 95.6 L Carbon Dioxide BUN 24 H Creatinine Glucose POC Glucose Lactic Acid Uric Acid Calcium Magnesium Total Bilirubin Direct Bilirubin AST ALT Alkaline Phosphatase Ammonia CK-MB (CK-2) Rel Index C-Reactive Protein Total Protein Albumin Vitamin B1 <6 L Vitamin B12 25-OH Vitamin D Total Free T4 T3 (GILSON) Urine Creatinine Urine Total Protein Acetaminophen 06/21/18 06/22/18 06/23/18 21:44 21:42 14:54 WBC RBC 5.07 H Hgb Hct MCV 78 L MCH 25 L RDW 18.5 H Plt Count Lymph % (Auto) [place] % (Auto) 12.3 H Lymph # 1.0 L [place] # Seg Neutrophils % Seg Neuts % (Manual) Lymphocytes % (Manual) Monocytes % (Manual) Seg Neutrophils # Seg Neutrophils # Man Lymphocytes # (Manual) Monocytes # (Manual) POC ABG pH POC ABG pCO2 POC ABG pO2 Sodium Potassium Chloride Carbon Dioxide BUN Creatinine Glucose POC Glucose 126 H 114 H Lactic Acid Uric Acid Calcium Magnesium Total Bilirubin Direct Bilirubin AST ALT Alkaline Phosphatase Ammonia CK-MB (CK-2) Rel Index C-Reactive Protein Total Protein Albumin Vitamin B1 Vitamin B12 25-OH Vitamin D Total Free T4 T3 (GILSON) Urine Creatinine Urine Total Protein Acetaminophen 06/23/18 06/25/18 06/25/18 14:54 00:00 00:00 WBC 3.6 L RBC 5.31 H Hgb Hct MCV 77 L MCH 26 L RDW 19.0 H Plt Count Lymph % (Auto) [place] % (Auto) 10.2 H Lymph # [place] # Seg Neutrophils % Seg Neuts % (Manual) Lymphocytes % (Manual) Monocytes % (Manual) Seg Neutrophils # Seg Neutrophils # Man Lymphocytes # (Manual) Monocytes # (Manual) POC ABG pH POC ABG pCO2 POC ABG pO2 Sodium 132 L 131 L Potassium 3.5 L Chloride 91.5 L 93.5 L Carbon Dioxide BUN 19 H 21 H Creatinine Glucose POC Glucose Lactic Acid Uric Acid Calcium 8.1 L Magnesium Total Bilirubin 2.80 H 2.70 H Direct Bilirubin AST 52 H 81 H ALT Alkaline Phosphatase 231 H 243 H Ammonia CK-MB (CK-2) Rel Index C-Reactive Protein Total Protein 5.5 L 5.5 L Albumin 2.8 L 2.7 L Vitamin B1 Vitamin B12 25-OH Vitamin D Total Free T4 T3 (GILSON) Urine Creatinine Urine Total Protein Acetaminophen 06/25/18 06/25/18 06/25/18 16:02 16:02 16:18 WBC 3.9 L RBC 5.78 H Hgb 14.6 H Hct 45.4 H MCV MCH 25 L RDW 19.2 H Plt Count Lymph % (Auto) [place] % (Auto) Lymph # [place] # Seg Neutrophils % Seg Neuts % (Manual) Lymphocytes % (Manual) Monocytes % (Manual) Seg Neutrophils # Seg Neutrophils # Man Lymphocytes # (Manual) 1.1 L Monocytes # (Manual) POC ABG pH POC ABG pCO2 POC ABG pO2 Sodium 131 L Potassium Chloride 90.0 L Carbon Dioxide BUN 25 H Creatinine 1.4 H Glucose POC Glucose Lactic Acid 4.00 H* Uric Acid Calcium Magnesium Total Bilirubin 3.10 H Direct Bilirubin AST 68 H ALT Alkaline Phosphatase 296 H Ammonia CK-MB (CK-2) Rel Index C-Reactive Protein Total Protein 6.1 L Albumin 3.3 L Vitamin B1 Vitamin B12 25-OH Vitamin D Total Free T4 T3 (GILSON) Urine Creatinine Urine Total Protein Acetaminophen 06/25/18 06/26/18 06/26/18 21:06 11:33 11:37 WBC RBC Hgb Hct MCV MCH 26 L RDW 19.2 H Plt Count 139 L Lymph % (Auto) [place] % (Auto) Lymph # [place] # Seg Neutrophils % Seg Neuts % (Manual) 85.0 H Lymphocytes % (Manual) 6.0 L Monocytes % (Manual) Seg Neutrophils # Seg Neutrophils # Man 8.0 H Lymphocytes # (Manual) 0.6 L Monocytes # (Manual) POC ABG pH POC ABG pCO2 POC ABG pO2 Sodium Potassium Chloride Carbon Dioxide BUN Creatinine Glucose POC Glucose < 40 L Lactic Acid 6.40 H* Uric Acid Calcium Magnesium Total Bilirubin Direct Bilirubin AST ALT Alkaline Phosphatase Ammonia CK-MB (CK-2) Rel Index C-Reactive Protein Total Protein Albumin Vitamin B1 Vitamin B12 25-OH Vitamin D Total Free T4 T3 ([place]IL[place]) Urine Creatinine Urine Total Protein Acetaminophen 06/26/18 06/26/18 06/26/18 11:37 11:51 11:59 WBC RBC Hgb Hct MCV MCH RDW Plt Count Lymph % (Auto) [place] % (Auto) Lymph # [place] # Seg Neutrophils % Seg Neuts % (Manual) Lymphocytes % (Manual) Monocytes % (Manual) Seg Neutrophils # Seg Neutrophils # Man Lymphocytes # (Manual) Monocytes # (Manual) POC ABG pH 7.029 L POC ABG pCO2 POC ABG pO2 73 L Sodium 129 L Potassium Chloride 87.0 L Carbon Dioxide 11 L D BUN 31 H Creatinine 1.9 H Glucose 206 H POC Glucose 253 H Lactic Acid Uric Acid Calcium 7.9 L Magnesium Total Bilirubin 2.90 H Direct Bilirubin AST 98 H ALT Alkaline Phosphatase 196 H Ammonia CK-MB (CK-2) Rel Index C-Reactive Protein Total Protein 4.3 L D Albumin 2.2 L Vitamin B1 Vitamin B12 25-OH Vitamin D Total Free T4 T3 ([place]IL[place]) Urine Creatinine Urine Total Protein Acetaminophen 06/26/18 06/26/18 06/26/18 14:54 15:08 15:10 WBC 14.2 H RBC 5.66 H Hgb 14.5 H Hct 45.6 H D MCV MCH 26 L RDW 19.4 H Plt Count Lymph % (Auto) [place] % (Auto) Lymph # [place] # Seg Neutrophils % Seg Neuts % (Manual) 88.0 H Lymphocytes % (Manual) 5.0 L Monocytes % (Manual) Seg Neutrophils # Seg Neutrophils # Man 12.5 H Lymphocytes # (Manual) 0.7 L Monocytes # (Manual) 0.9 H POC ABG pH POC ABG pCO2 POC ABG pO2 Sodium Potassium Chloride Carbon Dioxide BUN Creatinine Glucose POC Glucose 172 H Lactic Acid 11.90 H* Uric Acid Calcium Magnesium Total Bilirubin Direct Bilirubin AST ALT Alkaline Phosphatase Ammonia CK-MB (CK-2) Rel Index C-Reactive Protein Total Protein Albumin Vitamin B1 Vitamin B12 25-OH Vitamin D Total Free T4 T3 ([place]IL[place]) Urine Creatinine Urine Total Protein Acetaminophen 06/26/18 06/26/18 06/26/18 16:01 18:47 20:55 WBC RBC Hgb Hct MCV MCH RDW Plt Count Lymph % (Auto) [place] % (Auto) Lymph # [place] # Seg Neutrophils % Seg Neuts % (Manual) Lymphocytes % (Manual) Monocytes % (Manual) Seg Neutrophils # Seg Neutrophils # Man Lymphocytes # (Manual) Monocytes # (Manual) POC ABG pH POC ABG pCO2 34.0 L POC ABG pO2 Sodium Potassium Chloride Carbon Dioxide BUN Creatinine Glucose POC Glucose 183 H 131 H Lactic Acid Uric Acid Calcium Magnesium Total Bilirubin Direct Bilirubin AST ALT Alkaline Phosphatase Ammonia CK-MB (CK-2) Rel Index C-Reactive Protein Total Protein Albumin Vitamin B1 Vitamin B12 25-OH Vitamin D Total Free T4 T3 ([place]IL[place]) Urine Creatinine Urine Total Protein Acetaminophen 06/26/18 06/27/18 06/27/18 21:55 09:29 09:29 WBC RBC Hgb Hct MCV MCH RDW Plt Count Lymph % (Auto) [place] % (Auto) Lymph # [place] # Seg Neutrophils % Seg Neuts % (Manual) Lymphocytes % (Manual) Monocytes % (Manual) Seg Neutrophils # Seg Neutrophils # Man Lymphocytes # (Manual) Monocytes # (Manual) POC ABG pH POC ABG pCO2 POC ABG pO2 Sodium 135 L 135 L Potassium 3.5 L Chloride 91.7 L 91.2 L Carbon Dioxide BUN 35 H 37 H Creatinine 2.3 H 2.1 H Glucose 147 H 104 H POC Glucose Lactic Acid Uric Acid Calcium 8.3 L 8.1 L Magnesium Total Bilirubin 3.50 H Direct Bilirubin AST 218 H ALT 57 H Alkaline Phosphatase 197 H Ammonia CK-MB (CK-2) Rel Index C-Reactive Protein Total Protein 5.0 L Albumin 2.3 L Vitamin B1 Vitamin B12 25-OH Vitamin D Total Free T4 1.78 H T3 (GILSON) Urine Creatinine Urine Total Protein Acetaminophen 06/27/18 06/27/18 06/27/18 09:29 09:29 10:00 WBC 16.3 H RBC 5.44 H Hgb Hct MCV 76 L MCH 25 L RDW 18.3 H Plt Count Lymph % (Auto) [place] % (Auto) Lymph # [place] # Seg Neutrophils % Seg Neuts % (Manual) 91.0 H Lymphocytes % (Manual) 3.0 L Monocytes % (Manual) Seg Neutrophils # Seg Neutrophils # Man 14.8 H Lymphocytes # (Manual) 0.5 L Monocytes # (Manual) 1.0 H POC ABG pH POC ABG pCO2 POC ABG pO2 Sodium Potassium Chloride Carbon Dioxide BUN Creatinine Glucose POC Glucose 106 H Lactic Acid 4.00 H* Uric Acid Calcium Magnesium Total Bilirubin Direct Bilirubin AST ALT Alkaline Phosphatase Ammonia CK-MB (CK-2) Rel Index C-Reactive Protein Total Protein Albumin Vitamin B1 Vitamin B12 25-OH Vitamin D Total Free T4 T3 (GILSON) Urine Creatinine Urine Total Protein Acetaminophen 06/27/18 06/27/18 06/27/18 11:51 12:50 13:39 WBC RBC Hgb Hct MCV MCH RDW Plt Count Lymph % (Auto) [place] % (Auto) Lymph # [place] # Seg Neutrophils % Seg Neuts % (Manual) Lymphocytes % (Manual) Monocytes % (Manual) Seg Neutrophils # Seg Neutrophils # Man Lymphocytes # (Manual) Monocytes # (Manual) POC ABG pH 7.584 H POC ABG pCO2 32.8 L POC ABG pO2 109 H Sodium Potassium Chloride Carbon Dioxide BUN Creatinine Glucose POC Glucose 112 H Lactic Acid 3.20 H* Uric Acid Calcium Magnesium Total Bilirubin Direct Bilirubin AST ALT Alkaline Phosphatase Ammonia CK-MB (CK-2) Rel Index C-Reactive Protein Total Protein Albumin Vitamin B1 Vitamin B12 25-OH Vitamin D Total Free T4 T3 (GIL[place]) Urine Creatinine Urine Total Protein Acetaminophen 06/27/18 06/27/18 06/27/18 19:31 21:50 23:10 WBC RBC Hgb Hct MCV MCH RDW Plt Count Lymph % (Auto) [place] % (Auto) Lymph # [place] # Seg Neutrophils % Seg Neuts % (Manual) Lymphocytes % (Manual) Monocytes % (Manual) Seg Neutrophils # Seg Neutrophils # Man Lymphocytes # (Manual) Monocytes # (Manual) POC ABG pH POC ABG pCO2 POC ABG pO2 Sodium Potassium Chloride Carbon Dioxide BUN Creatinine Glucose POC Glucose Lactic Acid 2.40 H* 2.30 H* 2.30 H* Uric Acid Calcium Magnesium Total Bilirubin Direct Bilirubin AST ALT Alkaline Phosphatase Ammonia CK-MB (CK-2) Rel Index C-Reactive Protein Total Protein Albumin Vitamin B1 Vitamin B12 25-OH Vitamin D Total Free T4 T3 (GIL[place]) Urine Creatinine Urine Total Protein Acetaminophen 06/28/18 06/28/18 06/28/18 02:35 05:00 05:00 WBC RBC Hgb Hct MCV MCH RDW Plt Count Lymph % (Auto) [place] % (Auto) Lymph # [place] # Seg Neutrophils % Seg Neuts % (Manual) Lymphocytes % (Manual) Monocytes % (Manual) Seg Neutrophils # Seg Neutrophils # Man Lymphocytes # (Manual) Monocytes # (Manual) POC ABG pH POC ABG pCO2 POC ABG pO2 Sodium 134 L Potassium 2.6 L* D Chloride 92.3 L Carbon Dioxide 32 H BUN 34 H Creatinine 1.8 H Glucose 127 H POC Glucose Lactic Acid 2.20 H* 2.30 H* Uric Acid Calcium 7.5 L Magnesium Total Bilirubin 3.50 H Direct Bilirubin AST 226 H ALT 60 H Alkaline Phosphatase 172 H Ammonia CK-MB (CK-2) Rel Index C-Reactive Protein Total Protein 4.2 L Albumin 2.0 L Vitamin B1 Vitamin B12 25-OH Vitamin D Total Free T4 T3 (GILSON) Urine Creatinine Urine Total Protein Acetaminophen 06/28/18 06/28/18 06/28/18 05:00 08:30 08:30 WBC 15.7 H RBC Hgb Hct MCV 77 L MCH 25 L RDW 18.5 H Plt Count 112 L Lymph % (Auto) 6.0 L [place] % (Auto) 10.0 H Lymph # 0.9 L [place] # 1.6 H Seg Neutrophils % 83.4 H Seg Neuts % (Manual) Lymphocytes % (Manual) Monocytes % (Manual) Seg Neutrophils # 13.1 H Seg Neutrophils # Man Lymphocytes # (Manual) Monocytes # (Manual) POC ABG pH POC ABG pCO2 POC ABG pO2 Sodium Potassium Chloride Carbon Dioxide BUN Creatinine Glucose POC Glucose Lactic Acid 2.40 H* Uric Acid Calcium Magnesium Total Bilirubin Direct Bilirubin AST ALT Alkaline Phosphatase Ammonia CK-MB (CK-2) Rel Index C-Reactive Protein 4.80 H Total Protein Albumin Vitamin B1 Vitamin B12 25-OH Vitamin D Total Free T4 T3 (GILSON) Urine Creatinine Urine Total Protein Acetaminophen 06/28/18 06/28/18 06/28/18 10:53 11:23 18:35 WBC RBC Hgb Hct MCV MCH RDW Plt Count Lymph % (Auto) [place] % (Auto) Lymph # [place] # Seg Neutrophils % Seg Neuts % (Manual) Lymphocytes % (Manual) Monocytes % (Manual) Seg Neutrophils # Seg Neutrophils # Man Lymphocytes # (Manual) Monocytes # (Manual) POC ABG pH 7.552 H POC ABG pCO2 POC ABG pO2 Sodium Potassium 3.1 L Chloride Carbon Dioxide BUN Creatinine Glucose POC Glucose 122 H Lactic Acid Uric Acid Calcium Magnesium Total Bilirubin Direct Bilirubin AST ALT Alkaline Phosphatase Ammonia CK-MB (CK-2) Rel Index C-Reactive Protein Total Protein Albumin Vitamin B1 Vitamin B12 25-OH Vitamin D Total Free T4 T3 (GILSON) Urine Creatinine Urine Total Protein Acetaminophen 06/29/18 06/29/18 06/29/18 06:40 06:40 19:44 WBC 14.6 H RBC Hgb Hct MCV 77 L MCH 25 L RDW 19.3 H Plt Count 88 L Lymph % (Auto) [place] % (Auto) Lymph # [place] # Seg Neutrophils % Seg Neuts % (Manual) Lymphocytes % (Manual) Monocytes % (Manual) Seg Neutrophils # Seg Neutrophils # Man Lymphocytes # (Manual) Monocytes # (Manual) POC ABG pH POC ABG pCO2 POC ABG pO2 Sodium Potassium 2.7 L* Chloride 95.3 L Carbon Dioxide 32 H BUN 25 H Creatinine Glucose 145 H POC Glucose 59 L Lactic Acid Uric Acid Calcium 7.9 L Magnesium Total Bilirubin 3.60 H Direct Bilirubin AST 213 H ALT Alkaline Phosphatase 176 H Ammonia CK-MB (CK-2) Rel Index C-Reactive Protein Total Protein 4.8 L Albumin 2.2 L Vitamin B1 Vitamin B12 25-OH Vitamin D Total Free T4 T3 ([facility]) Urine Creatinine Urine Total Protein Acetaminophen 06/29/18 06/30/18 06/30/18 20:43 02:37 04:45 WBC RBC Hgb Hct MCV MCH RDW Plt Count Lymph % (Auto) [place] % (Auto) Lymph # [place] # Seg Neutrophils % Seg Neuts % (Manual) Lymphocytes % (Manual) Monocytes % (Manual) Seg Neutrophils # Seg Neutrophils # Man Lymphocytes # (Manual) Monocytes # (Manual) POC ABG pH POC ABG pCO2 POC ABG pO2 Sodium Potassium 3.1 L 2.8 L* Chloride Carbon Dioxide 31 H BUN 18 H Creatinine Glucose POC Glucose 59 L Lactic Acid Uric Acid Calcium 8.0 L Magnesium Total Bilirubin 3.70 H Direct Bilirubin AST 216 H ALT 63 H Alkaline Phosphatase 163 H Ammonia CK-MB (CK-2) Rel Index C-Reactive Protein Total Protein 4.5 L Albumin 2.1 L Vitamin B1 Vitamin B12 25-OH Vitamin D Total Free T4 T3 ([facility]) Urine Creatinine Urine Total Protein Acetaminophen 06/30/18 06/30/18 07/01/18 04:45 06:24 04:39 WBC 12.1 H RBC Hgb Hct MCV 78 L 77 L MCH 25 L 25 L RDW 19.0 H 19.3 H Plt Count 91 L 77 L Lymph % (Auto) [place] % (Auto) Lymph # [place] # Seg Neutrophils % Seg Neuts % (Manual) Lymphocytes % (Manual) Monocytes % (Manual) Seg Neutrophils # Seg Neutrophils # Man Lymphocytes # (Manual) Monocytes # (Manual) POC ABG pH POC ABG pCO2 POC ABG pO2 Sodium Potassium Chloride Carbon Dioxide BUN Creatinine Glucose POC Glucose 63 L Lactic Acid Uric Acid Calcium Magnesium Total Bilirubin Direct Bilirubin AST ALT Alkaline Phosphatase Ammonia CK-MB (CK-2) Rel Index C-Reactive Protein Total Protein Albumin Vitamin B1 Vitamin B12 25-OH Vitamin D Total Free T4 T3 ([facility]) Urine Creatinine Urine Total Protein Acetaminophen 07/01/18 07/01/18 07/02/18 04:39 11:12 05:23 WBC RBC Hgb Hct MCV 77 L MCH 25 L RDW 19.2 H Plt Count 78 L Lymph % (Auto) [place] % (Auto) Lymph # [place] # Seg Neutrophils % Seg Neuts % (Manual) Lymphocytes % (Manual) Monocytes % (Manual) Seg Neutrophils # Seg Neutrophils # Man Lymphocytes # (Manual) Monocytes # (Manual) POC ABG pH POC ABG pCO2 POC ABG pO2 Sodium Potassium 3.5 L D Chloride Carbon Dioxide BUN Creatinine Glucose 109 H POC Glucose 206 H Lactic Acid Uric Acid Calcium 8.1 L Magnesium Total Bilirubin 3.90 H Direct Bilirubin AST 163 H ALT 60 H Alkaline Phosphatase 166 H Ammonia CK-MB (CK-2) Rel Index C-Reactive Protein Total Protein 4.5 L Albumin 2.0 L Vitamin B1 Vitamin B12 25-OH Vitamin D Total Free T4 T3 ([facility]) Urine Creatinine Urine Total Protein Acetaminophen 07/02/18 07/02/18 07/03/18 05:23 12:18 08:14 WBC RBC Hgb Hct MCV 76 L MCH 25 L RDW 19.0 H Plt Count 84 L Lymph % (Auto) [place] % (Auto) Lymph # [place] # Seg Neutrophils % Seg Neuts % (Manual) Lymphocytes % (Manual) Monocytes % (Manual) Seg Neutrophils # Seg Neutrophils # Man Lymphocytes # (Manual) Monocytes # (Manual) POC ABG pH POC ABG pCO2 POC ABG pO2 Sodium 135 L Potassium 3.4 L Chloride Carbon Dioxide BUN Creatinine 0.6 L Glucose POC Glucose 144 H Lactic Acid Uric Acid Calcium 8.3 L Magnesium Total Bilirubin Direct Bilirubin AST ALT Alkaline Phosphatase Ammonia CK-MB (CK-2) Rel Index C-Reactive Protein Total Protein Albumin Vitamin B1 Vitamin B12 25-OH Vitamin D Total Free T4 T3 ([facility]) Urine Creatinine Urine Total Protein Acetaminophen 07/03/18 07/03/18 07/04/18 08:14 16:33 05:36 WBC RBC Hgb Hct MCV 77 L MCH 25 L RDW 18.5 H Plt Count 103 L Lymph % (Auto) [place] % (Auto) Lymph # [place] # Seg Neutrophils % Seg Neuts % (Manual) Lymphocytes % (Manual) Monocytes % (Manual) Seg Neutrophils # Seg Neutrophils # Man Lymphocytes # (Manual) Monocytes # (Manual) POC ABG pH POC ABG pCO2 POC ABG pO2 Sodium 135 L Potassium Chloride 97.7 L Carbon Dioxide BUN Creatinine 0.5 L Glucose POC Glucose 69 L Lactic Acid Uric Acid Calcium 8.2 L Magnesium 1.50 L Total Bilirubin Direct Bilirubin AST ALT Alkaline Phosphatase Ammonia CK-MB (CK-2) Rel Index C-Reactive Protein Total Protein Albumin Vitamin B1 Vitamin B12 25-OH Vitamin D Total Free T4 T3 ([facility]) Urine Creatinine Urine Total Protein Acetaminophen 07/04/18 07/04/18 07/04/18 05:36 08:54 11:47 WBC RBC Hgb Hct MCV MCH RDW Plt Count Lymph % (Auto) [place] % (Auto) Lymph # [place] # Seg Neutrophils % Seg Neuts % (Manual) Lymphocytes % (Manual) Monocytes % (Manual) Seg Neutrophils # Seg Neutrophils # Man Lymphocytes # (Manual) Monocytes # (Manual) POC ABG pH POC ABG pCO2 POC ABG pO2 Sodium 135 L Potassium Chloride Carbon Dioxide BUN Creatinine 0.5 L Glucose POC Glucose 61 L 122 H Lactic Acid Uric Acid Calcium 8.2 L Magnesium Total Bilirubin Direct Bilirubin AST ALT Alkaline Phosphatase Ammonia CK-MB (CK-2) Rel Index C-Reactive Protein Total Protein Albumin Vitamin B1 Vitamin B12 25-OH Vitamin D Total Free T4 T3 ([facility]) Urine Creatinine Urine Total Protein Acetaminophen 07/04/18 07/05/18 07/06/18 16:44 21:15 11:50 WBC RBC Hgb Hct MCV MCH RDW Plt Count Lymph % (Auto) [place] % (Auto) Lymph # [place] # Seg Neutrophils % Seg Neuts % (Manual) Lymphocytes % (Manual) Monocytes % (Manual) Seg Neutrophils # Seg Neutrophils # Man Lymphocytes # (Manual) Monocytes # (Manual) POC ABG pH POC ABG pCO2 POC ABG pO2 Sodium Potassium Chloride Carbon Dioxide BUN Creatinine Glucose POC Glucose 124 H 150 H 67 L Lactic Acid Uric Acid Calcium Magnesium Total Bilirubin Direct Bilirubin AST ALT Alkaline Phosphatase Ammonia CK-MB (CK-2) Rel Index C-Reactive Protein Total Protein Albumin Vitamin B1 Vitamin B12 25-OH Vitamin D Total Free T4 T3 ([facility]) Urine Creatinine Urine Total Protein Acetaminophen 07/06/18 07/06/18 07/06/18 13:32 16:27 21:13 WBC RBC Hgb Hct MCV MCH RDW Plt Count Lymph % (Auto) [place] % (Auto) Lymph # [place] # Seg Neutrophils % Seg Neuts % (Manual) Lymphocytes % (Manual) Monocytes % (Manual) Seg Neutrophils # Seg Neutrophils # Man Lymphocytes # (Manual) Monocytes # (Manual) POC ABG pH POC ABG pCO2 POC ABG pO2 Sodium Potassium Chloride Carbon Dioxide BUN Creatinine Glucose POC Glucose 146 H 125 H 69 L Lactic Acid Uric Acid Calcium Magnesium Total Bilirubin Direct Bilirubin AST ALT Alkaline Phosphatase Ammonia CK-MB (CK-2) Rel Index C-Reactive Protein Total Protein Albumin Vitamin B1 Vitamin B12 25-OH Vitamin D Total Free T4 T3 ([facility]) Urine Creatinine Urine Total Protein Acetaminophen 07/07/18 07/08/18 07/08/18 12:18 04:55 04:55 WBC RBC Hgb Hct MCV 78 L MCH 25 L RDW 18.2 H Plt Count Lymph % (Auto) [place] % (Auto) 14.8 H Lymph # [place] # 1.3 H Seg Neutrophils % Seg Neuts % (Manual) Lymphocytes % (Manual) Monocytes % (Manual) Seg Neutrophils # Seg Neutrophils # Man Lymphocytes # (Manual) Monocytes # (Manual) POC ABG pH POC ABG pCO2 POC ABG pO2 Sodium 136 L Potassium Chloride Carbon Dioxide BUN Creatinine 0.5 L Glucose 110 H POC Glucose 132 H Lactic Acid Uric Acid Calcium 8.0 L Magnesium Total Bilirubin Direct Bilirubin AST ALT Alkaline Phosphatase Ammonia CK-MB (CK-2) Rel Index C-Reactive Protein Total Protein Albumin Vitamin B1 Vitamin B12 25-OH Vitamin D Total Free T4 T3 ([facility]) Urine Creatinine Urine Total Protein Acetaminophen 07/08/18 07/08/18 07/08/18 14:27 17:11 21:20 WBC RBC Hgb Hct MCV MCH RDW Plt Count Lymph % (Auto) [place] % (Auto) Lymph # [place] # Seg Neutrophils % Seg Neuts % (Manual) Lymphocytes % (Manual) Monocytes % (Manual) Seg Neutrophils # Seg Neutrophils # Man Lymphocytes # (Manual) Monocytes # (Manual) POC ABG pH POC ABG pCO2 POC ABG pO2 Sodium Potassium Chloride Carbon Dioxide BUN Creatinine Glucose POC Glucose 133 H 113 H 126 H Lactic Acid Uric Acid Calcium Magnesium Total Bilirubin Direct Bilirubin AST ALT Alkaline Phosphatase Ammonia CK-MB (CK-2) Rel Index C-Reactive Protein Total Protein Albumin Vitamin B1 Vitamin B12 25-OH Vitamin D Total Free T4 T3 ([facility]) Urine Creatinine Urine Total Protein Acetaminophen 07/09/18 07/10/18 07/10/18 17:03 08:36 20:51 WBC RBC Hgb Hct MCV MCH RDW Plt Count Lymph % (Auto) [place] % (Auto) Lymph # [place] # Seg Neutrophils % Seg Neuts % (Manual) Lymphocytes % (Manual) Monocytes % (Manual) Seg Neutrophils # Seg Neutrophils # Man Lymphocytes # (Manual) Monocytes # (Manual) POC ABG pH POC ABG pCO2 POC ABG pO2 Sodium Potassium Chloride Carbon Dioxide BUN Creatinine Glucose POC Glucose 116 H 128 H 159 H Lactic Acid Uric Acid Calcium Magnesium Total Bilirubin Direct Bilirubin AST ALT Alkaline Phosphatase Ammonia CK-MB (CK-2) Rel Index C-Reactive Protein Total Protein Albumin Vitamin B1 Vitamin B12 25-OH Vitamin D Total Free T4 T3 ([facility]) Urine Creatinine Urine Total Protein Acetaminophen 07/11/18 07/11/18 07/11/18 03:22 03:22 12:07 WBC RBC Hgb Hct MCV 78 L MCH 26 L RDW 17.4 H Plt Count Lymph % (Auto) [place] % (Auto) Lymph # [place] # Seg Neutrophils % Seg Neuts % (Manual) Lymphocytes % (Manual) Monocytes % (Manual) 13.0 H Seg Neutrophils # Seg Neutrophils # Man Lymphocytes # (Manual) Monocytes # (Manual) POC ABG pH POC ABG pCO2 POC ABG pO2 Sodium 135 L Potassium Chloride Carbon Dioxide BUN Creatinine 0.6 L Glucose 101 H POC Glucose 345 H Lactic Acid Uric Acid Calcium 8.0 L Magnesium Total Bilirubin 1.50 H Direct Bilirubin AST 63 H ALT Alkaline Phosphatase 350 H Ammonia CK-MB (CK-2) Rel Index C-Reactive Protein Total Protein 5.5 L Albumin 2.0 L Vitamin B1 Vitamin B12 25-OH Vitamin D Total Free T4 T3 ([facility]) Urine Creatinine Urine Total Protein Acetaminophen 07/12/18 07/12/18 07/12/18 07:14 12:05 12:25 WBC RBC Hgb Hct MCV MCH RDW Plt Count Lymph % (Auto) [place] % (Auto) Lymph # [place] # Seg Neutrophils % Seg Neuts % (Manual) Lymphocytes % (Manual) Monocytes % (Manual) Seg Neutrophils # Seg Neutrophils # Man Lymphocytes # (Manual) Monocytes # (Manual) POC ABG pH POC ABG pCO2 POC ABG pO2 Sodium Potassium Chloride Carbon Dioxide BUN Creatinine Glucose POC Glucose 65 L 168 H Lactic Acid Uric Acid Calcium Magnesium Total Bilirubin Direct Bilirubin AST ALT Alkaline Phosphatase Ammonia CK-MB (CK-2) Rel Index 6.0 H C-Reactive Protein Total Protein Albumin Vitamin B1 Vitamin B12 25-OH Vitamin D Total Free T4 T3 ([facility]) Urine Creatinine Urine Total Protein Acetaminophen 07/12/18 07/12/18 07/12/18 16:21 18:12 22:40 WBC RBC Hgb Hct MCV MCH RDW Plt Count Lymph % (Auto) [place] % (Auto) Lymph # [place] # Seg Neutrophils % Seg Neuts % (Manual) Lymphocytes % (Manual) Monocytes % (Manual) Seg Neutrophils # Seg Neutrophils # Man Lymphocytes # (Manual) Monocytes # (Manual) POC ABG pH POC ABG pCO2 POC ABG pO2 Sodium Potassium Chloride Carbon Dioxide BUN Creatinine Glucose POC Glucose 109 H 111 H Lactic Acid Uric Acid Calcium Magnesium Total Bilirubin Direct Bilirubin AST ALT Alkaline Phosphatase Ammonia CK-MB (CK-2) Rel Index 6.2 H C-Reactive Protein Total Protein Albumin Vitamin B1 Vitamin B12 25-OH Vitamin D Total Free T4 T3 ([facility]) Urine Creatinine Urine Total Protein Acetaminophen 07/13/18 07/13/18 07/13/18 00:28 07:25 11:20 WBC RBC Hgb Hct MCV MCH RDW Plt Count Lymph % (Auto) [place] % (Auto) Lymph # [place] # Seg Neutrophils % Seg Neuts % (Manual) Lymphocytes % (Manual) Monocytes % (Manual) Seg Neutrophils # Seg Neutrophils # Man Lymphocytes # (Manual) Monocytes # (Manual) POC ABG pH POC ABG pCO2 POC ABG pO2 Sodium Potassium Chloride Carbon Dioxide BUN Creatinine Glucose POC Glucose 106 H 131 H Lactic Acid Uric Acid Calcium Magnesium Total Bilirubin Direct Bilirubin AST ALT Alkaline Phosphatase Ammonia CK-MB (CK-2) Rel Index 6.0 H C-Reactive Protein Total Protein Albumin Vitamin B1 Vitamin B12 25-OH Vitamin D Total Free T4 T3 ([facility]) Urine Creatinine Urine Total Protein Acetaminophen 07/13/18 07/13/18 07/14/18 16:44 22:55 11:30 WBC RBC Hgb Hct MCV MCH RDW Plt Count Lymph % (Auto) [place] % (Auto) Lymph # [place] # Seg Neutrophils % Seg Neuts % (Manual) Lymphocytes % (Manual) Monocytes % (Manual) Seg Neutrophils # Seg Neutrophils # Man Lymphocytes # (Manual) Monocytes # (Manual) POC ABG pH POC ABG pCO2 POC ABG pO2 Sodium Potassium Chloride Carbon Dioxide BUN Creatinine Glucose POC Glucose 127 H 166 H 120 H Lactic Acid Uric Acid Calcium Magnesium Total Bilirubin Direct Bilirubin AST ALT Alkaline Phosphatase Ammonia CK-MB (CK-2) Rel Index C-Reactive Protein Total Protein Albumin Vitamin B1 Vitamin B12 25-OH Vitamin D Total Free T4 T3 ([facility]) Urine Creatinine Urine Total Protein Acetaminophen 07/14/18 07/15/18 07/15/18 16:45 11:44 16:42 WBC RBC Hgb Hct MCV MCH RDW Plt Count Lymph % (Auto) [place] % (Auto) Lymph # [place] # Seg Neutrophils % Seg Neuts % (Manual) Lymphocytes % (Manual) Monocytes % (Manual) Seg Neutrophils # Seg Neutrophils # Man Lymphocytes # (Manual) Monocytes # (Manual) POC ABG pH POC ABG pCO2 POC ABG pO2 Sodium Potassium Chloride Carbon Dioxide BUN Creatinine Glucose POC Glucose 69 L 187 H 126 H Lactic Acid Uric Acid Calcium Magnesium Total Bilirubin Direct Bilirubin AST ALT Alkaline Phosphatase Ammonia CK-MB (CK-2) Rel Index C-Reactive Protein Total Protein Albumin Vitamin B1 Vitamin B12 25-OH Vitamin D Total Free T4 T3 ([facility]) Urine Creatinine Urine Total Protein Acetaminophen 07/16/18 07/16/18 07/16/18 02:05 02:05 11:56 WBC RBC Hgb Hct MCV 78 L MCH 25 L RDW 17.6 H Plt Count Lymph % (Auto) [place] % (Auto) Lymph # [place] # Seg Neutrophils % Seg Neuts % (Manual) Lymphocytes % (Manual) Monocytes % (Manual) Seg Neutrophils # Seg Neutrophils # Man Lymphocytes # (Manual) Monocytes # (Manual) POC ABG pH POC ABG pCO2 POC ABG pO2 Sodium 136 L Potassium Chloride Carbon Dioxide BUN Creatinine 0.5 L Glucose POC Glucose 152 H Lactic Acid Uric Acid Calcium Magnesium Total Bilirubin Direct Bilirubin AST ALT Alkaline Phosphatase Ammonia CK-MB (CK-2) Rel Index C-Reactive Protein Total Protein Albumin Vitamin B1 Vitamin B12 25-OH Vitamin D Total Free T4 T3 ([facility]) Urine Creatinine Urine Total Protein Acetaminophen 07/16/18 07/16/18 07/17/18 16:25 22:00 07:24 WBC RBC Hgb Hct MCV MCH RDW Plt Count Lymph % (Auto) [place] % (Auto) Lymph # [place] # Seg Neutrophils % Seg Neuts % (Manual) Lymphocytes % (Manual) Monocytes % (Manual) Seg Neutrophils # Seg Neutrophils # Man Lymphocytes # (Manual) Monocytes # (Manual) POC ABG pH POC ABG pCO2 POC ABG pO2 Sodium Potassium Chloride Carbon Dioxide BUN Creatinine Glucose POC Glucose 117 H 247 H 63 L Lactic Acid Uric Acid Calcium Magnesium Total Bilirubin Direct Bilirubin AST ALT Alkaline Phosphatase Ammonia CK-MB (CK-2) Rel Index C-Reactive Protein Total Protein Albumin Vitamin B1 Vitamin B12 25-OH Vitamin D Total Free T4 T3 ([facility]) Urine Creatinine Urine Total Protein Acetaminophen 07/17/18 11:30 WBC RBC Hgb Hct MCV MCH RDW Plt Count Lymph % (Auto) [place] % (Auto) Lymph # [place] # Seg Neutrophils % Seg Neuts % (Manual) Lymphocytes % (Manual) Monocytes % (Manual) Seg Neutrophils # Seg Neutrophils # Man Lymphocytes # (Manual) Monocytes # (Manual) POC ABG pH POC ABG pCO2 POC ABG pO2 Sodium Potassium Chloride Carbon Dioxide BUN Creatinine Glucose POC Glucose 257 H Lactic Acid Uric Acid Calcium Magnesium Total Bilirubin Direct Bilirubin AST ALT Alkaline Phosphatase Ammonia CK-MB (CK-2) Rel Index C-Reactive Protein Total Protein Albumin Vitamin B1 Vitamin B12 25-OH Vitamin D Total Free T4 T3 ([facility]) Urine Creatinine Urine Total Protein Acetaminophen Allied health notes reviewed: nursing
[2018-07-17] MEDS: LANOXIN PO SCH (17:25)
[2018-07-17] MEDS: NORCO 5/325 PO PRN (21:01)
[2018-07-18] MEDS: LOPRESSOR PO SCH ×3 (01:43→17:01)
[2018-07-18] MEDS: LASIX PO SCH ×2 (06:14→19:00)
[2018-07-18] MEDS: HumaLOG SUB-Q SCH ×4 (07:32→22:27)
[2018-07-18] MEDS: DUONEB *Not for PRN Use IH SCH ×3 (07:37→20:54)
[2018-07-18] MEDS: ZESTRIL PO SCH (10:31)
[2018-07-18] MEDS: ZOLOFT PO SCH (11:28)
[2018-07-18] MEDS: ELIQUIS PO SCH ×2 (11:28→22:27)
[2018-07-18] MEDS: PEPCID PO SCH (11:28)
--- NOTE | 2018-07-18 12:16 | Progress Note ---
Assessment and Plan Assessment and plan: Patient is 68 yo woman with a history of hypertension, CHF and Atrial fibrillation who was on hospice presented with altered mental status. She was climbing a fence, running wild; therefore, brought to ED. CT head was neg. MRI Brain unremarkable. Patient evaluated by Neuro and psychiatry. She was initially a 1013 but is was rescinded. It appears Neurology believes patient AMS is a psychotic disorder but Psychiatry has not really making a definitive diagnosis. During the hospital stay, She received Haldol to obtain CT head but had PEA cardiac arrest on 06/26/18, she received Epinephrine then developed pulseless Ventricular fibrillation and 1 shock via defibrillator was delivered with return of pulse. She was also found to have a very low blood glucose during the cardiac arrest and was treated with IV dextrose. She was intubated during the Code blue and sent to ICU. Cardiology consulted, she is s/p dobutamin drip for severe NICM, now extubated and transferred out off ICU. She has been stable and is awaiting [facility]. She had an episode of chest pain but cardiac enzymes were normal and EKG was unchanged . Chest pain resolved today Troponins neg, EKG Serial cardiac enzymes Nitrosublingual prn Acute Respiratory failure following Cardiac Arrest - ? PEA from hypoglycemia or Haldol administration- now off the ventilator and on nasal canula Patient improved s/p Cardiac arrest after Haldol: listed Haldol as an Allergy/Adverse drug. Severe NICM also contributed to the evant Patient stable Severe NICM, Acute on Chronic systolic CHF of EF 20-25%, - patient has been on hospice before, it appears she was discharged from home hospice. - cont current meds, daily ins/os/daily wt - Medications optimized Permanent Atrial fib/flutter: Eliquis resumed Altered mental status, with acute encephalopathy - suspected Dementia with psychotic features: Psych following - Continue home medication Zoloft 50 mg PO daily for now - Psychosis improved and her encephalopathy improved Hypoglycemia-, resolved Hyponatremia, due to diuresis and CHF: Nephrology following Improved Elevated LFT, Likely congestive hepatopathy due to end stage NICMP, closely pauline tor Severe protein calorie malnutrition: Lapping Machine Set Up Operator consulted SIRS Persistently elevated Lactic acidosis:-Likely secondary to hypoperfusion- Improved Hypokalemia: Resolved DVT prophylaxis: Patient is on Eliquis Waiting for NH placement Patient feels better. Will benefit from Subacute Rehab placement as recommeded by PT History Interval history: Chest pain on and off No SOB currently Awaiting placement Hospitalist Physical - Physical exam Narrative exam: GEN: Not in acute distress, lying in bed, obese HEENT: Normocephalic, atraumatic, Neck: supple, No JVD heart: S1 and S2 reg, no murmurs, rubs or gallop Lungs: Clear to auscultation bilat, no crackles, no wheeze Abd:soft, non tender, non distended, normal bowel sounds Ext: No edema, no clubbing, no cyanosis Neuro:Awake,alert, moves all ext. - Constitutional Vitals: Temp Pulse Resp BP Pulse Ox 97.8 F 87 20 112/68 100 07/18/18 07:40 07/18/18 08:00 07/18/18 08:00 07/18/18 07:40 07/18/18 07:40 General appearance: Present: no acute distress, well-nourished Results - Labs CBC & Chem 7: 07/16/18 02:05 07/16/18 02:05 Labs: Laboratory Last Values WBC 5.1 K/mm3 (4.5-11.0) 07/16/18 02:05 RBC 4.34 M/mm3 (3.65-5.03) 07/16/18 02:05 Hgb 10.9 gm/dl (10.1-14.3) 07/16/18 02:05 Hct 33.9 % (30.3-42.9) 07/16/18 02:05 MCV 78 fl (79-97) L 07/16/18 02:05 MCH 25 pg (28-32) L 07/16/18 02:05 MCHC 32 % (30-34) 07/16/18 02:05 RDW 17.6 % (13.2-15.2) H 07/16/18 02:05 Plt Count 275 K/mm3 (140-440) 07/16/18 02:05 Lymph % (Auto) 20.7 % (13.4-35.0) 07/08/18 04:55 [place] % (Auto) Regroover 07/11/18 03:22 Eos % (Auto) 1.3 % (0.0-4.3) 07/08/18 04:55 Baso % (Auto) 0.6 % (0.0-1.8) 07/08/18 04:55 Lymph # 1.8 K/mm3 (1.2-5.4) 07/08/18 04:55 [place] # 1.3 K/mm3 (0.0-0.8) H 07/08/18 04:55 Eos # 0.1 K/mm3 (0.0-0.4) 07/08/18 04:55 Baso # 0.1 K/mm3 (0.0-0.1) 07/08/18 04:55 Add Manual Diff Complete 07/11/18 03:22 Total Counted 100 07/11/18 03:22 Seg Neutrophils % 62.6 % (40.0-70.0) 07/08/18 04:55 Seg Neuts % (Manual) 51.0 % (40.0-70.0) 07/11/18 03:22 Band Neutrophils % 0 % 07/11/18 03:22 Lymphocytes % (Manual) 34.0 % (13.4-35.0) 07/11/18 03:22 Reactive Lymphs % (Man) 2.0 % 07/11/18 03:22 Monocytes % (Manual) 13.0 % (0.0-7.3) H 07/11/18 03:22 Eosinophils % (Manual) 0 % (0.0-4.3) 07/11/18 03:22 Basophils % (Manual) 0 % (0.0-1.8) 07/11/18 03:22 Metamyelocytes % 0 % 07/11/18 03:22 Myelocytes % 0 % 07/11/18 03:22 Promyelocytes % 0 % 07/11/18 03:22 Blast Cells % 0 % 07/11/18 03:22 Nucleated RBC % Not Reportable 07/11/18 03:22 Seg Neutrophils # 5.3 K/mm3 (1.8-7.7) 07/08/18 04:55 Seg Neutrophils # Man 2.7 K/mm3 (1.8-7.7) 07/11/18 03:22 Band Neutrophils # 0.0 K/mm3 07/11/18 03:22 Lymphocytes # (Manual) 1.8 K/mm3 (1.2-5.4) 07/11/18 03:22 Abs React Lymphs (Man) 0.1 K/mm3 07/11/18 03:22 Monocytes # (Manual) 0.7 K/mm3 (0.0-0.8) 07/11/18 03:22 Eosinophils # (Manual) 0.0 K/mm3 (0.0-0.4) 07/11/18 03:22 Basophils # (Manual) 0.0 K/mm3 (0.0-0.1) 07/11/18 03:22 Metamyelocytes # 0.0 K/mm3 07/11/18 03:22 Myelocytes # 0.0 K/mm3 07/11/18 03:22 Promyelocytes # 0.0 K/mm3 07/11/18 03:22 Blast Cells # 0.0 K/mm3 07/11/18 03:22 WBC Morphology Not Reportable 07/11/18 03:22 Hypersegmented Neuts Not Reportable 07/11/18 03:22 Hyposegmented Neuts Not Reportable 07/11/18 03:22 Hypogranular Neuts Not Reportable 07/11/18 03:22 Smudge Cells Not Reportable 07/11/18 03:22 Toxic Granulation Not Reportable 07/11/18 03:22 Toxic Vacuolation Not Reportable 07/11/18 03:22 Dohle Bodies Not Reportable 07/11/18 03:22 Pelger-Huet Anomaly Not Reportable 07/11/18 03:22 Sushma Rods Not Reportable 07/11/18 03:22 Platelet Estimate Consistent w auto 07/11/18 03:22 Clumped Platelets Not Reportable 07/11/18 03:22 Plt Clumps, EDTA Not Reportable 07/11/18 03:22 Large Platelets Not Reportable 07/11/18 03:22 Giant Platelets Not Reportable 07/11/18 03:22 Platelet Satelliting Not Reportable 07/11/18 03:22 Plt Morphology Comment Not Reportable 07/11/18 03:22 RBC Morphology Not Reportable 07/11/18 03:22 Dimorphic RBCs Not Reportable 07/11/18 03:22 Polychromasia Not Reportable 07/11/18 03:22 Hypochromasia 2+ 07/11/18 03:22 Poikilocytosis 2+ 07/11/18 03:22 Anisocytosis 1+ 07/11/18 03:22 Microcytosis Not Reportable 07/11/18 03:22 Macrocytosis Not Reportable 07/11/18 03:22 Spherocytes Not Reportable 07/11/18 03:22 Pappenheimer Bodies Not Reportable 07/11/18 03:22 Sickle Cells Not Reportable 07/11/18 03:22 Target Cells 1+ 07/11/18 03:22 Tear Drop Cells Few 07/11/18 03:22 Ovalocytes Few 07/11/18 03:22 Helmet Cells Not Reportable 07/11/18 03:22 [place] Bodies Not Reportable 07/11/18 03:22 [place] Rings Not Reportable 07/11/18 03:22 [place] Cells Not Reportable 07/11/18 03:22 Bite Cells Not Reportable 07/11/18 03:22 Crenated Cell Not Reportable 07/11/18 03:22 Elliptocytes Few 07/11/18 03:22 Acanthocytes (Spur) Not Reportable 07/11/18 03:22 Rouleaux Not Reportable 07/11/18 03:22 Hemoglobin C Crystals Not Reportable 07/11/18 03:22 Schistocytes Not Reportable 07/11/18 03:22 Malaria parasites Not Reportable 07/11/18 03:22 Saqib Bodies Not Reportable 07/11/18 03:22 Hem Pathologist Commnt No 07/11/18 03:22 POC ABG pH 7.552 (7.35-7.45) H 06/28/18 10:53 POC ABG pCO2 40.8 (35-45) 06/28/18 10:53 POC ABG pO2 83 (80-105) 06/28/18 10:53 POC ABG HCO3 35.9 (22-26 mml/L) 06/28/18 10:53 POC ABG Total CO2 37 (23-27mmol/L) 06/28/18 10:53 POC ABG O2 Sat 97 06/28/18 10:53 POC ABG Base Excess 14 ((-2) - (+3)mmol/L) 06/28/18 10:53 FiO2 30 % 06/28/18 10:53 Sodium 136 mmol/L (137-145) L 07/16/18 02:05 Potassium 3.7 mmol/L (3.6-5.0) 07/16/18 02:05 Chloride 100.0 mmol/L (98-107) 07/16/18 02:05 Carbon Dioxide 27 mmol/L (22-30) 07/16/18 02:05 Anion Gap 13 mmol/L 07/16/18 02:05 BUN 9 mg/dL (7-17) 07/16/18 02:05 Creatinine 0.5 mg/dL (0.7-1.2) L 07/16/18 02:05 Estimated GFR > 60 ml/min 07/16/18 02:05 BUN/Creatinine Ratio 18 % 07/16/18 02:05 Glucose 90 mg/dL (65-100) 07/16/18 02:05 POC Glucose 119 (70-105) H 07/18/18 11:25 Hemoglobin A1c 5.5 % (4-6) 06/17/18 15:08 Osmolality 276 Mosm/kg 06/20/18 07:31 Lactic Acid 1.30 mmol/L (0.7-2.0) 07/02/18 23:33 Uric Acid 9.2 mg/dL (3.5-7.6) H 06/21/18 16:27 Calcium 8.4 mg/dL (8.4-10.2) 07/16/18 02:05 Phosphorus 2.50 mg/dL (2.5-4.5) 06/20/18 07:31 Magnesium 1.50 mg/dL (1.7-2.3) L 07/03/18 08:14 Total Bilirubin 1.50 mg/dL (0.1-1.2) H 07/11/18 03:22 Direct Bilirubin 1.6 mg/dL (0-0.2) H 06/17/18 11:00 Indirect Bilirubin -1.4 mg/dL 06/17/18 11:00 AST 63 units/L (5-40) H 07/11/18 03:22 ALT 53 units/L (7-56) 07/11/18 03:22 Alkaline Phosphatase 350 units/L (35-129) H 07/11/18 03:22 Ammonia 38.0 umol/L (25-60) 06/25/18 16:02 Total Creatine Kinase 43 units/L (30-135) 07/13/18 00:28 CK-MB (CK-2) 2.6 ng/mL (0.0-4.0) 07/13/18 00:28 CK-MB (CK-2) Rel Index 6.0 (0-4) H 07/13/18 00:28 Troponin T 0.017 ng/mL (0.00-0.029) 07/13/18 00:28 C-Reactive Protein 4.80 mg/dL (0.00-1.30) H 06/28/18 05:00 Total Protein 5.5 g/dL (6.3-8.2) L 07/11/18 03:22 Albumin 2.0 g/dL (3.9-5) L 07/11/18 03:22 Albumin/Globulin Ratio 0.6 % 07/11/18 03:22 Vitamin B1 <6 nmol/L (8-30) L 06/21/18 16:27 Vitamin B12 1598 pg/mL (211-911) H 06/20/18 20:53 25-OH Vitamin D Total 10 ng/mL (30-100) L 06/20/18 20:53 25-Hydroxy Vitamin D2 . 06/20/18 20:53 25-Hydroxy Vitamin D3 . 06/20/18 20:53 Folate 14.18 ng/mL (7.3-26.0) 06/20/18 20:53 TSH 1.540 mlU/mL (0.270-4.200) 06/27/18 09:29 Free T4 1.78 ng/dL (0.76-1.46) H 06/27/18 09:29 T3 (GILSON) 58 ng/dL (76-181) L 06/20/18 16:51 Urine Color Caryl (Yellow) 06/16/18 Unknown Urine Turbidity Clear (Clear) 06/16/18 Unknown Urine pH 5.0 (5.0-7.0) 06/16/18 Unknown Ur Specific [place] 1.025 (1.003-1.030) 06/16/18 Unknown Urine Protein 100 mg/dl mg/dL (Negative) 06/16/18 Unknown Urine Glucose (UA) 50 mg/dL (Negative) 06/16/18 Unknown Urine Ketones Neg mg/dL (Negative) 06/16/18 Unknown Urine Blood Neg (Negative) 06/16/18 Unknown Urine Nitrite Neg (Negative) 06/16/18 Unknown Urine Bilirubin Neg (Negative) 06/16/18 Unknown Urine Urobilinogen 4.0 mg/dL (<2.0) 06/16/18 Unknown Ur Leukocyte Esterase Neg (Negative) 06/16/18 Unknown Urine WBC (Auto) 4.0 /HPF (0.0-6.0) 06/16/18 Unknown Urine RBC (Auto) 5.0 /HPF (0.0-6.0) 06/16/18 Unknown U Epithel Cells (Auto) 7.0 /HPF (0-13.0) 06/16/18 Unknown Hyaline Casts 49 /LPF 06/16/18 Unknown Urine Mucus Few /HPF 06/16/18 Unknown Urine Osmolality 413 Mosm/kg 06/19/18 Unknown Urine Creatinine 61.7 mg/dL (0.1-20.0) H 06/19/18 Unknown Urine Total Protein 32 mg/dL (5-11.8) H 06/19/18 Unknown Salicylates 5.5 mg/dL (2.8-20.0) 06/16/18 21:43 Urine Opiates Screen Presumptive negative 06/16/18 Unknown Urine Methadone Screen Presumptive negative 06/16/18 Unknown Acetaminophen < 5.0 ug/mL (10.0-30.0) L 06/16/18 21:43 Ur Barbiturates Screen Presumptive negative 06/16/18 Unknown Ur Phencyclidine Scrn Presumptive negative 06/16/18 Unknown Ur Amphetamines Screen Presumptive negative 06/16/18 Unknown U Benzodiazepines Scrn Presumptive negative 06/16/18 Unknown Urine Cocaine Screen Presumptive negative 06/16/18 Unknown U Marijuana (THC) Screen Presumptive negative 06/16/18 Unknown Drugs of Abuse Note Disclamer 06/16/18 Unknown Plasma/Serum Alcohol < 0.01 % (0-0.07) 06/16/18 21:43 Thyroglobulin Antibody See scanned result 06/20/18 16:51 Thyroid Peroxidase Ab See scanned result 06/20/18 16:51 HIV 1&2 Antibody Rapid Non react (Non React) 06/21/18 16:27 HIV P24 Antigen Non react (Non React) 06/21/18 16:27 Active Medications - Current Medications Current Medications: Generic Name Dose Route Start Last Admin Trade Name Freq PRN Reason Stop Dose Admin Acetaminophen/Hydrocodone Bitart 1 each 07/16/18 14:31 07/17/18 21:01 [place] 5/325 PO 1 each Q6H PRN Administration Pain, Moderate (4-6) Albuterol/Ipratropium 1 ampul 06/27/18 14:00 07/18/18 07:37 Duoneb *Not For Prn Use* IH 1 ampul TIDRT JEANETTE Administration Apixaban 5 mg 06/20/18 16:00 07/17/18 21:02 Eliquis PO 5 mg Q12HR JEANETTE Administration Protocol Atorvastatin Calcium 20 mg 06/19/18 22:00 07/17/18 21:02 Lipitor PO 20 mg QHS JEANETTE Administration Dextrose 50 ml 07/01/18 11:50 07/12/18 08:58 D50w (25gm) Syringe IV 50 ml PRN PRN Administration Hypoglycemia Digoxin 0.125 mg 06/24/18 17:00 07/17/18 17:25 Lanoxin PO 0.125 mg DAILY@1700 JEANETTE Administration Famotidine 20 mg 06/27/18 12:00 07/17/18 09:33 Pepcid PO 20 mg DAILY JEANETTE Administration Furosemide 20 mg 07/05/18 18:00 07/18/18 06:14 Lasix PO 20 mg 0600,1800 [facility] Administration Insulin Human Lispro 0 unit 07/01/18 16:30 07/17/18 22:08 Humalog SUB-Q Not Given ACHS [facility] Protocol Lactulose 20 gm 07/04/18 12:00 Cephulac PO Q6HR PRN CONSTIPATION Lisinopril 2.5 mg 07/12/18 10:00 07/17/18 09:33 Zestril PO 2.5 mg QDAY [facility] Administration Metoprolol Tartrate 25 mg 06/25/18 09:00 07/18/18 01:43 Lopressor PO Not Given Q8H JEANETTE Nitroglycerin 0.4 mg 07/12/18 12:22 07/12/18 12:32 Nitrostat SL 0.4 mg .Q5MIN PRN Administration Chest Pain Sertraline HCl 50 mg 06/24/18 10:00 07/17/18 09:34 Zoloft PO 50 mg DAILY JEANETTE Administration Nutrition/Malnutrition Assess - Dietary Evaluation Nutrition/Malnutrition Findings: Nutrition Notes Start: 06/24/18 15:14 Freq: Status: Active Protocol: Document 07/14/18 14:54 RM (Rec: 07/14/18 15:03 RM [id number]) Nutrition Notes Initial or Follow up Reassessment Current Diagnosis Acute Kidney Injury, Hypertension,Heart Failure, Respiratory Failure Other Pertinent Diagnosis Severe depression,Dementia, s/ p cardiac arrest, psychosis, AMS Current Diet Mechanical Soft w/chopped meat Labs/Tests No recent labs Pertinent Medications Lasix Height 5 ft 5 in Weight 82.3 kg [place] Body Weight (kg) 56.81 BMI 30.2 Subjective/Other Information Per tech pt sips the Ensure Clear. Recorded PO intake 75% X 2 meals. Percent of energy/protein needs met: 98%/94% Burn Absent Trauma Absent #1 Nutrition Diagnosis Inadequate oral intake As Evidenced by Signs and Symptoms pt meeting 98% of calorie and 94% of protein needs Diagnosis Progress(for reassessment Resolved documentation) Is patient on ventilator? No Is Patient Ambulatory and/or Out of Bed No REE-([facility]-confined to bed) 1636.092 Calculation Used for Recommendations [facility] Additional Notes Pro needs 1-1.2g/k-96 g/ day Fluid needs 1ml/kcall Nutrition Intervention Change Diet Order: Continue current Add Supplement/Snack (indicate name/kcal Ensure Clear 1 daily /protein ) Provides kCal: 240 Provides Protein (gm) 8 Goal #1 Continue to meet at least 75% of energy and protein needs via PO intake Anticipated Discharge Needs: Mechanical Soft Follow-Up By: 07/20/18 Additional Comments Follow for PO and ONS intakes
--- NOTE | 2018-07-18 13:49 | Discharge Summary ---
Providers - Providers Date of Admission: 06/17/18 02:59 Date of discharge: 07/18/18 Attending physician: SEBAS ARNOLD 06/17/18 12:19 Consult to Physician [CONS] Routine Comment: Consulting Provider: CLEMENTINE WING Physician Instructions: Reason For Exam: Altered mental status 06/17/18 16:25 Consult to Mental Health [CONS] Routine Reason For Exam: Confused, agitated Place consult to:: Psych Notified:: YES Phone number called:: [phone] Was contact made?: No If yes, spoke with:: - Time called:: 16:42 Comment:: LEFT MESSAGE ON MACHINE ONLY OPTION AVAILABLE. [id number] NO ANSWER 06/19/18 14:17 Consult to Physician [CONS] Routine Comment: Consulting Provider: TERRY ARRIAGA Physician Instructions: Reason For Exam: Hyponatremia 06/19/18 15:57 Consult to Case Management [CONS] Routine Services Needed at Discharge: Other Notified:: Case management Comment:: dc planning. patientt states she was discharged from hospice 06/20/18 09:33 Consult to Physician [CONS] Routine Comment: Consulting Provider: SILAS RUIZ Physician Instructions: Reason For Exam: Altered mental status, 06/26/18 11:16 Consult to Physician [CONS] Routine Comment: Consulting Provider: GRACE GAXIOLA Physician Instructions: Reason For Exam: RESPIRATORY FAILURE S/P ARREST 06/27/18 11:56 PICC Line Insertion [Consult to PICC Line RN] [CONS] Urgent Reason For Exam: Hypotension Type Line:: PICC 06/29/18 11:55 Physical Therapy Evaluation and Treat [CONS] Routine Comment: Reason For Exam: Debility 06/29/18 11:56 Occupational Therapy Evaluate and Treat [CONS] Routine Comment: Reason For Exam: Debility 06/30/18 11:13 Speech Therapy Evaluation and Treat [CONS] Urgent Reason For Exam: dysphagia screen 06/30/18 16:18 Consult to Mental Health [CONS] Routine Reason For Exam: MEDICATION MANAGEMENT Place consult to:: MENTAL HEALTH Notified:: Rosie SNEED Phone number called:: [phone]. [phone] Was contact made?: Yes If yes, spoke with:: [facility] Time called:: 07:47 07/01/18 11:51 Consult to Dietitian/Nutrition [CONS] Routine Physician Instructions: Reason For Exam: Reason for Consult: Poor oral intake 07/07/18 10:04 Consult to Case Management [CONS] Routine Services Needed at Discharge: Other Notified:: PARESH Was contact made?: Yes If yes, spoke with:: PARESH Comment:: HOSPICE 07/12/18 05:59 Consult to Dietitian/Nutrition [CONS] Routine Physician Instructions: Reason For Exam: Reason for Consult: Malnutrition [facility]: [facility] Disposition: DC/[place]-06 HOME UNDER HOME [facility] Core Measure Documentation - Palliative Care Palliative Care/ Comfort Measures: Not Applicable - Core Measures Any of the following diagnoses?: heart failure Exam - Physical Exam Narrative exam: GEN: Not in acute distress, lying in bed, obese HEENT: Normocephalic, atraumatic, Neck: supple, No JVD heart: S1 and S2 reg, no murmurs, rubs or gallop Lungs: Clear to auscultation bilat, no crackles, no wheeze Abd:soft, non tender, non distended, normal bowel sounds Ext: No edema, no clubbing, no cyanosis Neuro:Awake,alert, moves all ext. - Constitutional Vitals: Temp Pulse Resp BP Pulse Ox 97.8 F 87 20 112/68 100 07/18/18 07:40 07/18/18 08:00 07/18/18 08:00 07/18/18 07:40 07/18/18 07:40 Plan Activity: advance as tolerated Diet: low fat, low cholesterol, low salt, diabetic Additional Instructions: 1.[facility]. 2.Follow up with Dr. Estrada in 1 week Follow up with: RASHEEDA ESTRADA MD [Staff Physician] - 7 Days FARMDALE KEELY PIERCE MD [Primary Care Provider] - 3-5 Days Prescriptions: Carvedilol [Coreg] 12.5 mg PO BID #60 tablet Ipratropium/Albuterol Sulfate [DUONEB *Not for PRN Use*] 1 ampul IH TIDRT #50 ampul.neb Apixaban [Eliquis] 5 mg PO DAILY #30 tablet Digoxin [Lanoxin] 0.125 mg PO DAILY@1700 #30 tablet Furosemide [Lasix TAB] 20 mg PO 0600,1800 #60 tablet AtorvaSTATin [Lipitor] 20 mg PO DAILY #30 tablet Famotidine [Pepcid] 20 mg PO DAILY #30 tablet Lisinopril [Zestril TAB] 5 mg PO QDAY #30 tablet Sertraline [Zoloft] 50 mg PO DAILY #30 tablet
--- NOTE | 2018-07-18 14:56 | Progress Note ---
Assessment and Plan Patient awake. Patient resting on room air. O2 saturation 90%. No acute respiratory distress. Patient afebrile. No leukocytosis. Patient discharged to go home. can come to office in 1-2 weeks for pulmonary follow up. - Patient Problems (1) Cardiac arrest Current Visit: Yes Status: Acute Plan to address problem: Patient successfully resuciated. Patient resting on room air. O2 saturation 90%. (2) Acute respiratory failure with hypoxia Current Visit: Yes Status: Acute Plan to address problem: Patient presently on room air. O2 saturation 90%. (3) Acute kidney failure with tubular necrosis Current Visit: Yes Status: Acute Plan to address problem: Management as per nephrology. (4) Altered mental status Current Visit: Yes Status: Acute Plan to address problem: Improving. Still confusing at times. (5) Paroxysmal atrial fibrillation Current Visit: Yes Status: Acute Plan to address problem: Patient is on Apixaban. Management as per cardiology. (6) Acute on chronic systolic heart failure Current Visit: No Status: Acute Plan to address problem: Management as per cardiology. (7) HTN (hypertension) Current Visit: No Status: Chronic Plan to address problem: Management as per primary care. (8) Left lower lobe pulmonary infiltrate Current Visit: Yes Status: Acute Plan to address problem: Patient afebrile. No leukocytosis. Significant improvement in chest xray. Mild volume Overload. Subjective Date of service: 07/18/18 Principal diagnosis: altered mental status, psychosis, chronic systolic heart failure, Interval history: Patient awake. Patient resting on room air. O2 saturation 90%. No acute respiratory distress. Patient afebrile. No leukocytosis. Patient discharged to go home. can come to office in 1-2 weeks for pulmonary follow up. Objective Vital Signs - 12hr 07/18/18 07/18/18 07/18/18 04:00 07:37 07:40 Temperature 97.8 F Pulse Rate 93 H 90 Pulse Rate [ 83 Anterior Bilateral Throughout] Respiratory 18 Rate Respiratory 18 Rate [Anterior Bilateral Throughout] Blood Pressure 112/68 O2 Sat by Pulse 99 100 Oximetry 07/18/18 07/18/18 08:00 13:04 Temperature 97.4 F L Pulse Rate 100 H Pulse Rate [ 87 Anterior Bilateral Throughout] Respiratory 18 Rate Respiratory 20 Rate [Anterior Bilateral Throughout] Blood Pressure 115/56 O2 Sat by Pulse 90 Oximetry Constitutional: no acute distress, alert, other (Confusing at times.) Eyes: non-icteric, other (Pupils 4mm, sluggichly reacting to light) ENT: oropharynx dry, other (extubated) Neck: supple, no lymphadenopathy, no JVD, other (no thyromegaly) Effort: normal Ascultation: Bilateral: diminished breath sounds, rales Percussion: Bilateral: not dull Cardiovascular: irregular rhythm, other (S1,S2,) Gastrointestinal: normoactive bowel sounds, soft, non-tender, non-distended Integumentary: rash (exematoid rash to upper chest) Extremities: no cyanosis, no edema, pulses normal, no ischemia or petechiae Neurologic: normal mental status, non-focal exam (grossly), pupils equal and round, CN II-XII normal Psychiatric: depressed CBC and BMP: 07/16/18 02:05 07/16/18 02:05 ABG, PT/INR, D-dimer: ABG POC ABG pH 7.552 (7.35-7.45) H 06/28/18 10:53 POC ABG pCO2 40.8 (35-45) 06/28/18 10:53 POC ABG pO2 83 (80-105) 06/28/18 10:53 POC ABG HCO3 35.9 (22-26 mml/L) 06/28/18 10:53 POC ABG Total CO2 37 (23-27mmol/L) 06/28/18 10:53 POC ABG O2 Sat 97 06/28/18 10:53 Abnormal lab findings: Abnormal Labs 06/16/18 06/16/18 06/16/18 21:05 21:43 21:43 WBC RBC Hgb Hct MCV MCH RDW Plt Count Lymph % (Auto) [place] % (Auto) Lymph # [place] # Seg Neutrophils % Seg Neuts % (Manual) Lymphocytes % (Manual) Monocytes % (Manual) Seg Neutrophils # Seg Neutrophils # Man Lymphocytes # (Manual) Monocytes # (Manual) POC ABG pH POC ABG pCO2 POC ABG pO2 Sodium 129 L Potassium Chloride 95.3 L Carbon Dioxide 14 L BUN 23 H Creatinine Glucose 146 H POC Glucose < 40 L Lactic Acid Uric Acid Calcium Magnesium Total Bilirubin Direct Bilirubin AST ALT Alkaline Phosphatase Ammonia CK-MB (CK-2) Rel Index C-Reactive Protein Total Protein Albumin Vitamin B1 Vitamin B12 25-OH Vitamin D Total Free T4 T3 (GILSON) Urine Creatinine Urine Total Protein Acetaminophen < 5.0 L 06/16/18 06/16/18 06/16/18 21:43 21:43 22:27 WBC RBC 5.70 H Hgb Hct 44.6 H MCV 78 L MCH 25 L RDW 18.7 H Plt Count Lymph % (Auto) [place] % (Auto) Lymph # [place] # Seg Neutrophils % 78.8 H Seg Neuts % (Manual) Lymphocytes % (Manual) Monocytes % (Manual) Seg Neutrophils # Seg Neutrophils # Man Lymphocytes # (Manual) Monocytes # (Manual) POC ABG pH POC ABG pCO2 POC ABG pO2 Sodium Potassium Chloride Carbon Dioxide BUN Creatinine Glucose POC Glucose 121 H Lactic Acid Uric Acid Calcium Magnesium Total Bilirubin Direct Bilirubin AST ALT Alkaline Phosphatase Ammonia CK-MB (CK-2) Rel Index C-Reactive Protein Total Protein Albumin Vitamin B1 Vitamin B12 25-OH Vitamin D Total Free T4 1.87 H T3 (GILSON) Urine Creatinine Urine Total Protein Acetaminophen 06/16/18 06/16/18 06/17/18 22:33 23:43 03:56 WBC RBC Hgb Hct MCV MCH RDW Plt Count Lymph % (Auto) [place] % (Auto) Lymph # [place] # Seg Neutrophils % Seg Neuts % (Manual) Lymphocytes % (Manual) Monocytes % (Manual) Seg Neutrophils # Seg Neutrophils # Man Lymphocytes # (Manual) Monocytes # (Manual) POC ABG pH POC ABG pCO2 POC ABG pO2 Sodium Potassium Chloride Carbon Dioxide BUN Creatinine Glucose POC Glucose Lactic Acid 4.40 H* 4.30 H* 3.10 H* Uric Acid Calcium Magnesium Total Bilirubin Direct Bilirubin AST ALT Alkaline Phosphatase Ammonia CK-MB (CK-2) Rel Index C-Reactive Protein Total Protein Albumin Vitamin B1 Vitamin B12 25-OH Vitamin D Total Free T4 T3 (GILSON) Urine Creatinine Urine Total Protein Acetaminophen 06/17/18 06/17/18 06/17/18 08:35 08:40 11:00 WBC RBC Hgb Hct MCV MCH RDW Plt Count Lymph % (Auto) [place] % (Auto) Lymph # [place] # Seg Neutrophils % Seg Neuts % (Manual) Lymphocytes % (Manual) Monocytes % (Manual) Seg Neutrophils # Seg Neutrophils # Man Lymphocytes # (Manual) Monocytes # (Manual) POC ABG pH POC ABG pCO2 POC ABG pO2 Sodium Potassium Chloride Carbon Dioxide BUN Creatinine Glucose POC Glucose 56 L Lactic Acid 2.70 H* 3.40 H* Uric Acid Calcium Magnesium Total Bilirubin Direct Bilirubin AST ALT Alkaline Phosphatase Ammonia CK-MB (CK-2) Rel Index C-Reactive Protein Total Protein Albumin Vitamin B1 Vitamin B12 25-OH Vitamin D Total Free T4 T3 (GILSON) Urine Creatinine Urine Total Protein Acetaminophen 06/17/18 06/17/18 06/17/18 11:00 11:00 11:00 WBC 11.9 H RBC 5.25 H Hgb Hct MCV MCH 25 L RDW 18.6 H Plt Count Lymph % (Auto) [place] % (Auto) Lymph # [place] # Seg Neutrophils % Seg Neuts % (Manual) Lymphocytes % (Manual) Monocytes % (Manual) Seg Neutrophils # Seg Neutrophils # Man Lymphocytes # (Manual) Monocytes # (Manual) POC ABG pH POC ABG pCO2 POC ABG pO2 Sodium 128 L Potassium Chloride 95.6 L Carbon Dioxide 15 L BUN 22 H Creatinine Glucose 110 H POC Glucose Lactic Acid Uric Acid Calcium 8.3 L Magnesium Total Bilirubin Direct Bilirubin 1.6 H AST 66 H ALT Alkaline Phosphatase 178 H Ammonia CK-MB (CK-2) Rel Index C-Reactive Protein Total Protein 4.7 L Albumin 2.4 L Vitamin B1 Vitamin B12 25-OH Vitamin D Total Free T4 T3 (GILSON) Urine Creatinine Urine Total Protein Acetaminophen 06/17/18 06/17/18 06/17/18 15:08 15:08 23:00 WBC RBC Hgb Hct MCV MCH RDW Plt Count Lymph % (Auto) [place] % (Auto) Lymph # [place] # Seg Neutrophils % Seg Neuts % (Manual) Lymphocytes % (Manual) Monocytes % (Manual) Seg Neutrophils # Seg Neutrophils # Man Lymphocytes # (Manual) Monocytes # (Manual) POC ABG pH POC ABG pCO2 POC ABG pO2 Sodium Potassium Chloride Carbon Dioxide BUN Creatinine Glucose POC Glucose Lactic Acid 4.00 H* Uric Acid Calcium Magnesium Total Bilirubin Direct Bilirubin AST ALT Alkaline Phosphatase Ammonia 10.0 L CK-MB (CK-2) Rel Index C-Reactive Protein Total Protein Albumin Vitamin B1 Vitamin B12 25-OH Vitamin D Total Free T4 1.53 H T3 (GILSON) Urine Creatinine Urine Total Protein Acetaminophen 06/18/18 06/18/18 06/18/18 08:59 08:59 12:49 WBC RBC 5.29 H Hgb Hct MCV 78 L MCH 25 L RDW 18.4 H Plt Count Lymph % (Auto) [place] % (Auto) Lymph # [place] # Seg Neutrophils % Seg Neuts % (Manual) Lymphocytes % (Manual) Monocytes % (Manual) Seg Neutrophils # Seg Neutrophils # Man Lymphocytes # (Manual) Monocytes # (Manual) POC ABG pH POC ABG pCO2 POC ABG pO2 Sodium 128 L Potassium 5.9 H D Chloride 96.1 L Carbon Dioxide 20 L BUN 22 H Creatinine Glucose POC Glucose 60 L Lactic Acid Uric Acid Calcium Magnesium Total Bilirubin Direct Bilirubin AST ALT Alkaline Phosphatase Ammonia CK-MB (CK-2) Rel Index C-Reactive Protein Total Protein Albumin Vitamin B1 Vitamin B12 25-OH Vitamin D Total Free T4 T3 (GILSON) Urine Creatinine Urine Total Protein Acetaminophen 06/18/18 06/19/18 06/19/18 21:28 12:14 13:23 WBC RBC Hgb Hct MCV MCH RDW Plt Count Lymph % (Auto) [place] % (Auto) Lymph # [place] # Seg Neutrophils % Seg Neuts % (Manual) Lymphocytes % (Manual) Monocytes % (Manual) Seg Neutrophils # Seg Neutrophils # Man Lymphocytes # (Manual) Monocytes # (Manual) POC ABG pH POC ABG pCO2 POC ABG pO2 Sodium 122 L Potassium 5.4 H Chloride 95.0 L Carbon Dioxide 13 L D BUN 21 H Creatinine Glucose 119 H POC Glucose 114 H Lactic Acid Uric Acid Calcium 8.3 L Magnesium Total Bilirubin Direct Bilirubin AST ALT Alkaline Phosphatase Ammonia CK-MB (CK-2) Rel Index C-Reactive Protein Total Protein Albumin Vitamin B1 Vitamin B12 25-OH Vitamin D Total Free T4 T3 (GILSON) Urine Creatinine Urine Total Protein Acetaminophen 06/19/18 06/19/18 06/19/18 14:47 16:38 22:42 WBC RBC 5.51 H Hgb Hct 45.3 H MCV MCH 25 L RDW 18.6 H Plt Count Lymph % (Auto) [place] % (Auto) Lymph # [place] # Seg Neutrophils % Seg Neuts % (Manual) Lymphocytes % (Manual) Monocytes % (Manual) Seg Neutrophils # Seg Neutrophils # Man Lymphocytes # (Manual) Monocytes # (Manual) POC ABG pH POC ABG pCO2 POC ABG pO2 Sodium Potassium Chloride Carbon Dioxide BUN Creatinine Glucose POC Glucose 108 H 49 L Lactic Acid Uric Acid Calcium Magnesium Total Bilirubin Direct Bilirubin AST ALT Alkaline Phosphatase Ammonia CK-MB (CK-2) Rel Index C-Reactive Protein Total Protein Albumin Vitamin B1 Vitamin B12 25-OH Vitamin D Total Free T4 T3 (GILSON) Urine Creatinine Urine Total Protein Acetaminophen 06/19/18 06/20/18 06/20/18 Unknown 07:31 16:51 WBC RBC Hgb Hct MCV MCH RDW Plt Count Lymph % (Auto) [place] % (Auto) Lymph # [place] # Seg Neutrophils % Seg Neuts % (Manual) Lymphocytes % (Manual) Monocytes % (Manual) Seg Neutrophils # Seg Neutrophils # Man Lymphocytes # (Manual) Monocytes # (Manual) POC ABG pH POC ABG pCO2 POC ABG pO2 Sodium 132 L D Potassium Chloride 94.3 L Carbon Dioxide BUN 20 H Creatinine Glucose POC Glucose Lactic Acid Uric Acid 8.6 H Calcium Magnesium 1.30 L Total Bilirubin Direct Bilirubin AST ALT Alkaline Phosphatase Ammonia CK-MB (CK-2) Rel Index C-Reactive Protein Total Protein Albumin Vitamin B1 Vitamin B12 25-OH Vitamin D Total Free T4 T3 (GILSON) 58 L Urine Creatinine 61.7 H Urine Total Protein 32 H Acetaminophen 06/20/18 06/20/18 06/21/18 20:53 20:53 16:27 WBC RBC Hgb Hct MCV MCH RDW Plt Count Lymph % (Auto) [place] % (Auto) Lymph # [place] # Seg Neutrophils % Seg Neuts % (Manual) Lymphocytes % (Manual) Monocytes % (Manual) Seg Neutrophils # Seg Neutrophils # Man Lymphocytes # (Manual) Monocytes # (Manual) POC ABG pH POC ABG pCO2 POC ABG pO2 Sodium Potassium Chloride Carbon Dioxide BUN Creatinine Glucose POC Glucose Lactic Acid Uric Acid 9.2 H Calcium Magnesium Total Bilirubin Direct Bilirubin AST ALT Alkaline Phosphatase Ammonia CK-MB (CK-2) Rel Index C-Reactive Protein Total Protein Albumin Vitamin B1 Vitamin B12 1598 H 25-OH Vitamin D Total 10 L Free T4 T3 (GILSON) Urine Creatinine Urine Total Protein Acetaminophen 06/21/18 06/21/18 06/21/18 16:27 16:27 16:27 WBC RBC 5.26 H Hgb Hct MCV 77 L MCH 26 L RDW 17.7 H Plt Count Lymph % (Auto) [place] % (Auto) Lymph # [place] # Seg Neutrophils % Seg Neuts % (Manual) Lymphocytes % (Manual) Monocytes % (Manual) Seg Neutrophils # Seg Neutrophils # Man Lymphocytes # (Manual) Monocytes # (Manual) POC ABG pH POC ABG pCO2 POC ABG pO2 Sodium 130 L Potassium Chloride 95.6 L Carbon Dioxide BUN 24 H Creatinine Glucose POC Glucose Lactic Acid Uric Acid Calcium Magnesium Total Bilirubin Direct Bilirubin AST ALT Alkaline Phosphatase Ammonia CK-MB (CK-2) Rel Index C-Reactive Protein Total Protein Albumin Vitamin B1 <6 L Vitamin B12 25-OH Vitamin D Total Free T4 T3 (GILSON) Urine Creatinine Urine Total Protein Acetaminophen 06/21/18 06/22/18 06/23/18 21:44 21:42 14:54 WBC RBC 5.07 H Hgb Hct MCV 78 L MCH 25 L RDW 18.5 H Plt Count Lymph % (Auto) [place] % (Auto) 12.3 H Lymph # 1.0 L [place] # Seg Neutrophils % Seg Neuts % (Manual) Lymphocytes % (Manual) Monocytes % (Manual) Seg Neutrophils # Seg Neutrophils # Man Lymphocytes # (Manual) Monocytes # (Manual) POC ABG pH POC ABG pCO2 POC ABG pO2 Sodium Potassium Chloride Carbon Dioxide BUN Creatinine Glucose POC Glucose 126 H 114 H Lactic Acid Uric Acid Calcium Magnesium Total Bilirubin Direct Bilirubin AST ALT Alkaline Phosphatase Ammonia CK-MB (CK-2) Rel Index C-Reactive Protein Total Protein Albumin Vitamin B1 Vitamin B12 25-OH Vitamin D Total Free T4 T3 (GILSON) Urine Creatinine Urine Total Protein Acetaminophen 06/23/18 06/25/18 06/25/18 14:54 00:00 00:00 WBC 3.6 L RBC 5.31 H Hgb Hct MCV 77 L MCH 26 L RDW 19.0 H Plt Count Lymph % (Auto) [place] % (Auto) 10.2 H Lymph # [place] # Seg Neutrophils % Seg Neuts % (Manual) Lymphocytes % (Manual) Monocytes % (Manual) Seg Neutrophils # Seg Neutrophils # Man Lymphocytes # (Manual) Monocytes # (Manual) POC ABG pH POC ABG pCO2 POC ABG pO2 Sodium 132 L 131 L Potassium 3.5 L Chloride 91.5 L 93.5 L Carbon Dioxide BUN 19 H 21 H Creatinine Glucose POC Glucose Lactic Acid Uric Acid Calcium 8.1 L Magnesium Total Bilirubin 2.80 H 2.70 H Direct Bilirubin AST 52 H 81 H ALT Alkaline Phosphatase 231 H 243 H Ammonia CK-MB (CK-2) Rel Index C-Reactive Protein Total Protein 5.5 L 5.5 L Albumin 2.8 L 2.7 L Vitamin B1 Vitamin B12 25-OH Vitamin D Total Free T4 T3 (GILSON) Urine Creatinine Urine Total Protein Acetaminophen 06/25/18 06/25/18 06/25/18 16:02 16:02 16:18 WBC 3.9 L RBC 5.78 H Hgb 14.6 H Hct 45.4 H MCV MCH 25 L RDW 19.2 H Plt Count Lymph % (Auto) [place] % (Auto) Lymph # [place] # Seg Neutrophils % Seg Neuts % (Manual) Lymphocytes % (Manual) Monocytes % (Manual) Seg Neutrophils # Seg Neutrophils # Man Lymphocytes # (Manual) 1.1 L Monocytes # (Manual) POC ABG pH POC ABG pCO2 POC ABG pO2 Sodium 131 L Potassium Chloride 90.0 L Carbon Dioxide BUN 25 H Creatinine 1.4 H Glucose POC Glucose Lactic Acid 4.00 H* Uric Acid Calcium Magnesium Total Bilirubin 3.10 H Direct Bilirubin AST 68 H ALT Alkaline Phosphatase 296 H Ammonia CK-MB (CK-2) Rel Index C-Reactive Protein Total Protein 6.1 L Albumin 3.3 L Vitamin B1 Vitamin B12 25-OH Vitamin D Total Free T4 T3 (GILSON) Urine Creatinine Urine Total Protein Acetaminophen 06/25/18 06/26/18 06/26/18 21:06 11:33 11:37 WBC RBC Hgb Hct MCV MCH 26 L RDW 19.2 H Plt Count 139 L Lymph % (Auto) [place] % (Auto) Lymph # [place] # Seg Neutrophils % Seg Neuts % (Manual) 85.0 H Lymphocytes % (Manual) 6.0 L Monocytes % (Manual) Seg Neutrophils # Seg Neutrophils # Man 8.0 H Lymphocytes # (Manual) 0.6 L Monocytes # (Manual) POC ABG pH POC ABG pCO2 POC ABG pO2 Sodium Potassium Chloride Carbon Dioxide BUN Creatinine Glucose POC Glucose < 40 L Lactic Acid 6.40 H* Uric Acid Calcium Magnesium Total Bilirubin Direct Bilirubin AST ALT Alkaline Phosphatase Ammonia CK-MB (CK-2) Rel Index C-Reactive Protein Total Protein Albumin Vitamin B1 Vitamin B12 25-OH Vitamin D Total Free T4 T3 (GILSON) Urine Creatinine Urine Total Protein Acetaminophen 06/26/18 06/26/18 06/26/18 11:37 11:51 11:59 WBC RBC Hgb Hct MCV MCH RDW Plt Count Lymph % (Auto) [place] % (Auto) Lymph # [place] # Seg Neutrophils % Seg Neuts % (Manual) Lymphocytes % (Manual) Monocytes % (Manual) Seg Neutrophils # Seg Neutrophils # Man Lymphocytes # (Manual) Monocytes # (Manual) POC ABG pH 7.029 L POC ABG pCO2 POC ABG pO2 73 L Sodium 129 L Potassium Chloride 87.0 L Carbon Dioxide 11 L D BUN 31 H Creatinine 1.9 H Glucose 206 H POC Glucose 253 H Lactic Acid Uric Acid Calcium 7.9 L Magnesium Total Bilirubin 2.90 H Direct Bilirubin AST 98 H ALT Alkaline Phosphatase 196 H Ammonia CK-MB (CK-2) Rel Index C-Reactive Protein Total Protein 4.3 L D Albumin 2.2 L Vitamin B1 Vitamin B12 25-OH Vitamin D Total Free T4 T3 (GILSON) Urine Creatinine Urine Total Protein Acetaminophen 06/26/18 06/26/18 06/26/18 14:54 15:08 15:10 WBC 14.2 H RBC 5.66 H Hgb 14.5 H Hct 45.6 H D MCV MCH 26 L RDW 19.4 H Plt Count Lymph % (Auto) [place] % (Auto) Lymph # [place] # Seg Neutrophils % Seg Neuts % (Manual) 88.0 H Lymphocytes % (Manual) 5.0 L Monocytes % (Manual) Seg Neutrophils # Seg Neutrophils # Man 12.5 H Lymphocytes # (Manual) 0.7 L Monocytes # (Manual) 0.9 H POC ABG pH POC ABG pCO2 POC ABG pO2 Sodium Potassium Chloride Carbon Dioxide BUN Creatinine Glucose POC Glucose 172 H Lactic Acid 11.90 H* Uric Acid Calcium Magnesium Total Bilirubin Direct Bilirubin AST ALT Alkaline Phosphatase Ammonia CK-MB (CK-2) Rel Index C-Reactive Protein Total Protein Albumin Vitamin B1 Vitamin B12 25-OH Vitamin D Total Free T4 T3 (GILSON) Urine Creatinine Urine Total Protein Acetaminophen 06/26/18 06/26/18 06/26/18 16:01 18:47 20:55 WBC RBC Hgb Hct MCV MCH RDW Plt Count Lymph % (Auto) [place] % (Auto) Lymph # [place] # Seg Neutrophils % Seg Neuts % (Manual) Lymphocytes % (Manual) Monocytes % (Manual) Seg Neutrophils # Seg Neutrophils # Man Lymphocytes # (Manual) Monocytes # (Manual) POC ABG pH POC ABG pCO2 34.0 L POC ABG pO2 Sodium Potassium Chloride Carbon Dioxide BUN Creatinine Glucose POC Glucose 183 H 131 H Lactic Acid Uric Acid Calcium Magnesium Total Bilirubin Direct Bilirubin AST ALT Alkaline Phosphatase Ammonia CK-MB (CK-2) Rel Index C-Reactive Protein Total Protein Albumin Vitamin B1 Vitamin B12 25-OH Vitamin D Total Free T4 T3 (GILSON) Urine Creatinine Urine Total Protein Acetaminophen 06/26/18 06/27/18 06/27/18 21:55 09:29 09:29 WBC RBC Hgb Hct MCV MCH RDW Plt Count Lymph % (Auto) [place] % (Auto) Lymph # [place] # Seg Neutrophils % Seg Neuts % (Manual) Lymphocytes % (Manual) Monocytes % (Manual) Seg Neutrophils # Seg Neutrophils # Man Lymphocytes # (Manual) Monocytes # (Manual) POC ABG pH POC ABG pCO2 POC ABG pO2 Sodium 135 L 135 L Potassium 3.5 L Chloride 91.7 L 91.2 L Carbon Dioxide BUN 35 H 37 H Creatinine 2.3 H 2.1 H Glucose 147 H 104 H POC Glucose Lactic Acid Uric Acid Calcium 8.3 L 8.1 L Magnesium Total Bilirubin 3.50 H Direct Bilirubin AST 218 H ALT 57 H Alkaline Phosphatase 197 H Ammonia CK-MB (CK-2) Rel Index C-Reactive Protein Total Protein 5.0 L Albumin 2.3 L Vitamin B1 Vitamin B12 25-OH Vitamin D Total Free T4 1.78 H T3 (GILSON) Urine Creatinine Urine Total Protein Acetaminophen 06/27/18 06/27/18 06/27/18 09:29 09:29 10:00 WBC 16.3 H RBC 5.44 H Hgb Hct MCV 76 L MCH 25 L RDW 18.3 H Plt Count Lymph % (Auto) [place] % (Auto) Lymph # [place] # Seg Neutrophils % Seg Neuts % (Manual) 91.0 H Lymphocytes % (Manual) 3.0 L Monocytes % (Manual) Seg Neutrophils # Seg Neutrophils # Man 14.8 H Lymphocytes # (Manual) 0.5 L Monocytes # (Manual) 1.0 H POC ABG pH POC ABG pCO2 POC ABG pO2 Sodium Potassium Chloride Carbon Dioxide BUN Creatinine Glucose POC Glucose 106 H Lactic Acid 4.00 H* Uric Acid Calcium Magnesium Total Bilirubin Direct Bilirubin AST ALT Alkaline Phosphatase Ammonia CK-MB (CK-2) Rel Index C-Reactive Protein Total Protein Albumin Vitamin B1 Vitamin B12 25-OH Vitamin D Total Free T4 T3 (GILSON) Urine Creatinine Urine Total Protein Acetaminophen 06/27/18 06/27/18 06/27/18 11:51 12:50 13:39 WBC RBC Hgb Hct MCV MCH RDW Plt Count Lymph % (Auto) [place] % (Auto) Lymph # [place] # Seg Neutrophils % Seg Neuts % (Manual) Lymphocytes % (Manual) Monocytes % (Manual) Seg Neutrophils # Seg Neutrophils # Man Lymphocytes # (Manual) Monocytes # (Manual) POC ABG pH 7.584 H POC ABG pCO2 32.8 L POC ABG pO2 109 H Sodium Potassium Chloride Carbon Dioxide BUN Creatinine Glucose POC Glucose 112 H Lactic Acid 3.20 H* Uric Acid Calcium Magnesium Total Bilirubin Direct Bilirubin AST ALT Alkaline Phosphatase Ammonia CK-MB (CK-2) Rel Index C-Reactive Protein Total Protein Albumin Vitamin B1 Vitamin B12 25-OH Vitamin D Total Free T4 T3 (GILSON) Urine Creatinine Urine Total Protein Acetaminophen 06/27/18 06/27/18 06/27/18 19:31 21:50 23:10 WBC RBC Hgb Hct MCV MCH RDW Plt Count Lymph % (Auto) [place] % (Auto) Lymph # [place] # Seg Neutrophils % Seg Neuts % (Manual) Lymphocytes % (Manual) Monocytes % (Manual) Seg Neutrophils # Seg Neutrophils # Man Lymphocytes # (Manual) Monocytes # (Manual) POC ABG pH POC ABG pCO2 POC ABG pO2 Sodium Potassium Chloride Carbon Dioxide BUN Creatinine Glucose POC Glucose Lactic Acid 2.40 H* 2.30 H* 2.30 H* Uric Acid Calcium Magnesium Total Bilirubin Direct Bilirubin AST ALT Alkaline Phosphatase Ammonia CK-MB (CK-2) Rel Index C-Reactive Protein Total Protein Albumin Vitamin B1 Vitamin B12 25-OH Vitamin D Total Free T4 T3 (GILSON) Urine Creatinine Urine Total Protein Acetaminophen 06/28/18 06/28/18 06/28/18 02:35 05:00 05:00 WBC RBC Hgb Hct MCV MCH RDW Plt Count Lymph % (Auto) [place] % (Auto) Lymph # [place] # Seg Neutrophils % Seg Neuts % (Manual) Lymphocytes % (Manual) Monocytes % (Manual) Seg Neutrophils # Seg Neutrophils # Man Lymphocytes # (Manual) Monocytes # (Manual) POC ABG pH POC ABG pCO2 POC ABG pO2 Sodium 134 L Potassium 2.6 L* D Chloride 92.3 L Carbon Dioxide 32 H BUN 34 H Creatinine 1.8 H Glucose 127 H POC Glucose Lactic Acid 2.20 H* 2.30 H* Uric Acid Calcium 7.5 L Magnesium Total Bilirubin 3.50 H Direct Bilirubin AST 226 H ALT 60 H Alkaline Phosphatase 172 H Ammonia CK-MB (CK-2) Rel Index C-Reactive Protein Total Protein 4.2 L Albumin 2.0 L Vitamin B1 Vitamin B12 25-OH Vitamin D Total Free T4 T3 (GILSON) Urine Creatinine Urine Total Protein Acetaminophen 06/28/18 06/28/18 06/28/18 05:00 08:30 08:30 WBC 15.7 H RBC Hgb Hct MCV 77 L MCH 25 L RDW 18.5 H Plt Count 112 L Lymph % (Auto) 6.0 L [place] % (Auto) 10.0 H Lymph # 0.9 L [place] # 1.6 H Seg Neutrophils % 83.4 H Seg Neuts % (Manual) Lymphocytes % (Manual) Monocytes % (Manual) Seg Neutrophils # 13.1 H Seg Neutrophils # Man Lymphocytes # (Manual) Monocytes # (Manual) POC ABG pH POC ABG pCO2 POC ABG pO2 Sodium Potassium Chloride Carbon Dioxide BUN Creatinine Glucose POC Glucose Lactic Acid 2.40 H* Uric Acid Calcium Magnesium Total Bilirubin Direct Bilirubin AST ALT Alkaline Phosphatase Ammonia CK-MB (CK-2) Rel Index C-Reactive Protein 4.80 H Total Protein Albumin Vitamin B1 Vitamin B12 25-OH Vitamin D Total Free T4 T3 (GILSON) Urine Creatinine Urine Total Protein Acetaminophen 06/28/18 06/28/18 06/28/18 10:53 11:23 18:35 WBC RBC Hgb Hct MCV MCH RDW Plt Count Lymph % (Auto) [place] % (Auto) Lymph # [place] # Seg Neutrophils % Seg Neuts % (Manual) Lymphocytes % (Manual) Monocytes % (Manual) Seg Neutrophils # Seg Neutrophils # Man Lymphocytes # (Manual) Monocytes # (Manual) POC ABG pH 7.552 H POC ABG pCO2 POC ABG pO2 Sodium Potassium 3.1 L Chloride Carbon Dioxide BUN Creatinine Glucose POC Glucose 122 H Lactic Acid Uric Acid Calcium Magnesium Total Bilirubin Direct Bilirubin AST ALT Alkaline Phosphatase Ammonia CK-MB (CK-2) Rel Index C-Reactive Protein Total Protein Albumin Vitamin B1 Vitamin B12 25-OH Vitamin D Total Free T4 T3 (GILSON) Urine Creatinine Urine Total Protein Acetaminophen 06/29/18 06/29/18 06/29/18 06:40 06:40 19:44 WBC 14.6 H RBC Hgb Hct MCV 77 L MCH 25 L RDW 19.3 H Plt Count 88 L Lymph % (Auto) [place] % (Auto) Lymph # [place] # Seg Neutrophils % Seg Neuts % (Manual) Lymphocytes % (Manual) Monocytes % (Manual) Seg Neutrophils # Seg Neutrophils # Man Lymphocytes # (Manual) Monocytes # (Manual) POC ABG pH POC ABG pCO2 POC ABG pO2 Sodium Potassium 2.7 L* Chloride 95.3 L Carbon Dioxide 32 H BUN 25 H Creatinine Glucose 145 H POC Glucose 59 L Lactic Acid Uric Acid Calcium 7.9 L Magnesium Total Bilirubin 3.60 H Direct Bilirubin AST 213 H ALT Alkaline Phosphatase 176 H Ammonia CK-MB (CK-2) Rel Index C-Reactive Protein Total Protein 4.8 L Albumin 2.2 L Vitamin B1 Vitamin B12 25-OH Vitamin D Total Free T4 T3 (GILSON) Urine Creatinine Urine Total Protein Acetaminophen 06/29/18 06/30/18 06/30/18 20:43 02:37 04:45 WBC RBC Hgb Hct MCV MCH RDW Plt Count Lymph % (Auto) [place] % (Auto) Lymph # [place] # Seg Neutrophils % Seg Neuts % (Manual) Lymphocytes % (Manual) Monocytes % (Manual) Seg Neutrophils # Seg Neutrophils # Man Lymphocytes # (Manual) Monocytes # (Manual) POC ABG pH POC ABG pCO2 POC ABG pO2 Sodium Potassium 3.1 L 2.8 L* Chloride Carbon Dioxide 31 H BUN 18 H Creatinine Glucose POC Glucose 59 L Lactic Acid Uric Acid Calcium 8.0 L Magnesium Total Bilirubin 3.70 H Direct Bilirubin AST 216 H ALT 63 H Alkaline Phosphatase 163 H Ammonia CK-MB (CK-2) Rel Index C-Reactive Protein Total Protein 4.5 L Albumin 2.1 L Vitamin B1 Vitamin B12 25-OH Vitamin D Total Free T4 T3 (GILSON) Urine Creatinine Urine Total Protein Acetaminophen 06/30/18 06/30/18 07/01/18 04:45 06:24 04:39 WBC 12.1 H RBC Hgb Hct MCV 78 L 77 L MCH 25 L 25 L RDW 19.0 H 19.3 H Plt Count 91 L 77 L Lymph % (Auto) [place] % (Auto) Lymph # [place] # Seg Neutrophils % Seg Neuts % (Manual) Lymphocytes % (Manual) Monocytes % (Manual) Seg Neutrophils # Seg Neutrophils # Man Lymphocytes # (Manual) Monocytes # (Manual) POC ABG pH POC ABG pCO2 POC ABG pO2 Sodium Potassium Chloride Carbon Dioxide BUN Creatinine Glucose POC Glucose 63 L Lactic Acid Uric Acid Calcium Magnesium Total Bilirubin Direct Bilirubin AST ALT Alkaline Phosphatase Ammonia CK-MB (CK-2) Rel Index C-Reactive Protein Total Protein Albumin Vitamin B1 Vitamin B12 25-OH Vitamin D Total Free T4 T3 (GILSON) Urine Creatinine Urine Total Protein Acetaminophen 07/01/18 07/01/18 07/02/18 04:39 11:12 05:23 WBC RBC Hgb Hct MCV 77 L MCH 25 L RDW 19.2 H Plt Count 78 L Lymph % (Auto) [place] % (Auto) Lymph # [place] # Seg Neutrophils % Seg Neuts % (Manual) Lymphocytes % (Manual) Monocytes % (Manual) Seg Neutrophils # Seg Neutrophils # Man Lymphocytes # (Manual) Monocytes # (Manual) POC ABG pH POC ABG pCO2 POC ABG pO2 Sodium Potassium 3.5 L D Chloride Carbon Dioxide BUN Creatinine Glucose 109 H POC Glucose 206 H Lactic Acid Uric Acid Calcium 8.1 L Magnesium Total Bilirubin 3.90 H Direct Bilirubin AST 163 H ALT 60 H Alkaline Phosphatase 166 H Ammonia CK-MB (CK-2) Rel Index C-Reactive Protein Total Protein 4.5 L Albumin 2.0 L Vitamin B1 Vitamin B12 25-OH Vitamin D Total Free T4 T3 (GILSON) Urine Creatinine Urine Total Protein Acetaminophen 07/02/18 07/02/18 07/03/18 05:23 12:18 08:14 WBC RBC Hgb Hct MCV 76 L MCH 25 L RDW 19.0 H Plt Count 84 L Lymph % (Auto) [place] % (Auto) Lymph # [place] # Seg Neutrophils % Seg Neuts % (Manual) Lymphocytes % (Manual) Monocytes % (Manual) Seg Neutrophils # Seg Neutrophils # Man Lymphocytes # (Manual) Monocytes # (Manual) POC ABG pH POC ABG pCO2 POC ABG pO2 Sodium 135 L Potassium 3.4 L Chloride Carbon Dioxide BUN Creatinine 0.6 L Glucose POC Glucose 144 H Lactic Acid Uric Acid Calcium 8.3 L Magnesium Total Bilirubin Direct Bilirubin AST ALT Alkaline Phosphatase Ammonia CK-MB (CK-2) Rel Index C-Reactive Protein Total Protein Albumin Vitamin B1 Vitamin B12 25-OH Vitamin D Total Free T4 T3 (GILSON) Urine Creatinine Urine Total Protein Acetaminophen 07/03/18 07/03/18 07/04/18 08:14 16:33 05:36 WBC RBC Hgb Hct MCV 77 L MCH 25 L RDW 18.5 H Plt Count 103 L Lymph % (Auto) [place] % (Auto) Lymph # [place] # Seg Neutrophils % Seg Neuts % (Manual) Lymphocytes % (Manual) Monocytes % (Manual) Seg Neutrophils # Seg Neutrophils # Man Lymphocytes # (Manual) Monocytes # (Manual) POC ABG pH POC ABG pCO2 POC ABG pO2 Sodium 135 L Potassium Chloride 97.7 L Carbon Dioxide BUN Creatinine 0.5 L Glucose POC Glucose 69 L Lactic Acid Uric Acid Calcium 8.2 L Magnesium 1.50 L Total Bilirubin Direct Bilirubin AST ALT Alkaline Phosphatase Ammonia CK-MB (CK-2) Rel Index C-Reactive Protein Total Protein Albumin Vitamin B1 Vitamin B12 25-OH Vitamin D Total Free T4 T3 (GILSON) Urine Creatinine Urine Total Protein Acetaminophen 07/04/18 07/04/18 07/04/18 05:36 08:54 11:47 WBC RBC Hgb Hct MCV MCH RDW Plt Count Lymph % (Auto) [place] % (Auto) Lymph # [place] # Seg Neutrophils % Seg Neuts % (Manual) Lymphocytes % (Manual) Monocytes % (Manual) Seg Neutrophils # Seg Neutrophils # Man Lymphocytes # (Manual) Monocytes # (Manual) POC ABG pH POC ABG pCO2 POC ABG pO2 Sodium 135 L Potassium Chloride Carbon Dioxide BUN Creatinine 0.5 L Glucose POC Glucose 61 L 122 H Lactic Acid Uric Acid Calcium 8.2 L Magnesium Total Bilirubin Direct Bilirubin AST ALT Alkaline Phosphatase Ammonia CK-MB (CK-2) Rel Index C-Reactive Protein Total Protein Albumin Vitamin B1 Vitamin B12 25-OH Vitamin D Total Free T4 T3 (GILSON) Urine Creatinine Urine Total Protein Acetaminophen 07/04/18 07/05/18 07/06/18 16:44 21:15 11:50 WBC RBC Hgb Hct MCV MCH RDW Plt Count Lymph % (Auto) [place] % (Auto) Lymph # [place] # Seg Neutrophils % Seg Neuts % (Manual) Lymphocytes % (Manual) Monocytes % (Manual) Seg Neutrophils # Seg Neutrophils # Man Lymphocytes # (Manual) Monocytes # (Manual) POC ABG pH POC ABG pCO2 POC ABG pO2 Sodium Potassium Chloride Carbon Dioxide BUN Creatinine Glucose POC Glucose 124 H 150 H 67 L Lactic Acid Uric Acid Calcium Magnesium Total Bilirubin Direct Bilirubin AST ALT Alkaline Phosphatase Ammonia CK-MB (CK-2) Rel Index C-Reactive Protein Total Protein Albumin Vitamin B1 Vitamin B12 25-OH Vitamin D Total Free T4 T3 (GILSON) Urine Creatinine Urine Total Protein Acetaminophen 07/06/18 07/06/18 07/06/18 13:32 16:27 21:13 WBC RBC Hgb Hct MCV MCH RDW Plt Count Lymph % (Auto) [place] % (Auto) Lymph # [place] # Seg Neutrophils % Seg Neuts % (Manual) Lymphocytes % (Manual) Monocytes % (Manual) Seg Neutrophils # Seg Neutrophils # Man Lymphocytes # (Manual) Monocytes # (Manual) POC ABG pH POC ABG pCO2 POC ABG pO2 Sodium Potassium Chloride Carbon Dioxide BUN Creatinine Glucose POC Glucose 146 H 125 H 69 L Lactic Acid Uric Acid Calcium Magnesium Total Bilirubin Direct Bilirubin AST ALT Alkaline Phosphatase Ammonia CK-MB (CK-2) Rel Index C-Reactive Protein Total Protein Albumin Vitamin B1 Vitamin B12 25-OH Vitamin D Total Free T4 T3 (GILSON) Urine Creatinine Urine Total Protein Acetaminophen 07/07/18 07/08/18 07/08/18 12:18 04:55 04:55 WBC RBC Hgb Hct MCV 78 L MCH 25 L RDW 18.2 H Plt Count Lymph % (Auto) [place] % (Auto) 14.8 H Lymph # [place] # 1.3 H Seg Neutrophils % Seg Neuts % (Manual) Lymphocytes % (Manual) Monocytes % (Manual) Seg Neutrophils # Seg Neutrophils # Man Lymphocytes # (Manual) Monocytes # (Manual) POC ABG pH POC ABG pCO2 POC ABG pO2 Sodium 136 L Potassium Chloride Carbon Dioxide BUN Creatinine 0.5 L Glucose 110 H POC Glucose 132 H Lactic Acid Uric Acid Calcium 8.0 L Magnesium Total Bilirubin Direct Bilirubin AST ALT Alkaline Phosphatase Ammonia CK-MB (CK-2) Rel Index C-Reactive Protein Total Protein Albumin Vitamin B1 Vitamin B12 25-OH Vitamin D Total Free T4 T3 ([facility]IL[facility]) Urine Creatinine Urine Total Protein Acetaminophen 07/08/18 07/08/18 07/08/18 14:27 17:11 21:20 WBC RBC Hgb Hct MCV MCH RDW Plt Count Lymph % (Auto) [place] % (Auto) Lymph # [place] # Seg Neutrophils % Seg Neuts % (Manual) Lymphocytes % (Manual) Monocytes % (Manual) Seg Neutrophils # Seg Neutrophils # Man Lymphocytes # (Manual) Monocytes # (Manual) POC ABG pH POC ABG pCO2 POC ABG pO2 Sodium Potassium Chloride Carbon Dioxide BUN Creatinine Glucose POC Glucose 133 H 113 H 126 H Lactic Acid Uric Acid Calcium Magnesium Total Bilirubin Direct Bilirubin AST ALT Alkaline Phosphatase Ammonia CK-MB (CK-2) Rel Index C-Reactive Protein Total Protein Albumin Vitamin B1 Vitamin B12 25-OH Vitamin D Total Free T4 T3 ([facility]ILSON) Urine Creatinine Urine Total Protein Acetaminophen 07/09/18 07/10/18 07/10/18 17:03 08:36 20:51 WBC RBC Hgb Hct MCV MCH RDW Plt Count Lymph % (Auto) [place] % (Auto) Lymph # [place] # Seg Neutrophils % Seg Neuts % (Manual) Lymphocytes % (Manual) Monocytes % (Manual) Seg Neutrophils # Seg Neutrophils # Man Lymphocytes # (Manual) Monocytes # (Manual) POC ABG pH POC ABG pCO2 POC ABG pO2 Sodium Potassium Chloride Carbon Dioxide BUN Creatinine Glucose POC Glucose 116 H 128 H 159 H Lactic Acid Uric Acid Calcium Magnesium Total Bilirubin Direct Bilirubin AST ALT Alkaline Phosphatase Ammonia CK-MB (CK-2) Rel Index C-Reactive Protein Total Protein Albumin Vitamin B1 Vitamin B12 25-OH Vitamin D Total Free T4 T3 ([facility]IL[facility]) Urine Creatinine Urine Total Protein Acetaminophen 07/11/18 07/11/18 07/11/18 03:22 03:22 12:07 WBC RBC Hgb Hct MCV 78 L MCH 26 L RDW 17.4 H Plt Count Lymph % (Auto) [place] % (Auto) Lymph # [place] # Seg Neutrophils % Seg Neuts % (Manual) Lymphocytes % (Manual) Monocytes % (Manual) 13.0 H Seg Neutrophils # Seg Neutrophils # Man Lymphocytes # (Manual) Monocytes # (Manual) POC ABG pH POC ABG pCO2 POC ABG pO2 Sodium 135 L Potassium Chloride Carbon Dioxide BUN Creatinine 0.6 L Glucose 101 H POC Glucose 345 H Lactic Acid Uric Acid Calcium 8.0 L Magnesium Total Bilirubin 1.50 H Direct Bilirubin AST 63 H ALT Alkaline Phosphatase 350 H Ammonia CK-MB (CK-2) Rel Index C-Reactive Protein Total Protein 5.5 L Albumin 2.0 L Vitamin B1 Vitamin B12 25-OH Vitamin D Total Free T4 T3 ([facility]) Urine Creatinine Urine Total Protein Acetaminophen 07/12/18 07/12/18 07/12/18 07:14 12:05 12:25 WBC RBC Hgb Hct MCV MCH RDW Plt Count Lymph % (Auto) [place] % (Auto) Lymph # [place] # Seg Neutrophils % Seg Neuts % (Manual) Lymphocytes % (Manual) Monocytes % (Manual) Seg Neutrophils # Seg Neutrophils # Man Lymphocytes # (Manual) Monocytes # (Manual) POC ABG pH POC ABG pCO2 POC ABG pO2 Sodium Potassium Chloride Carbon Dioxide BUN Creatinine Glucose POC Glucose 65 L 168 H Lactic Acid Uric Acid Calcium Magnesium Total Bilirubin Direct Bilirubin AST ALT Alkaline Phosphatase Ammonia CK-MB (CK-2) Rel Index 6.0 H C-Reactive Protein Total Protein Albumin Vitamin B1 Vitamin B12 25-OH Vitamin D Total Free T4 T3 ([facility]ILSON) Urine Creatinine Urine Total Protein Acetaminophen 07/12/18 07/12/18 07/12/18 16:21 18:12 22:40 WBC RBC Hgb Hct MCV MCH RDW Plt Count Lymph % (Auto) [place] % (Auto) Lymph # [place] # Seg Neutrophils % Seg Neuts % (Manual) Lymphocytes % (Manual) Monocytes % (Manual) Seg Neutrophils # Seg Neutrophils # Man Lymphocytes # (Manual) Monocytes # (Manual) POC ABG pH POC ABG pCO2 POC ABG pO2 Sodium Potassium Chloride Carbon Dioxide BUN Creatinine Glucose POC Glucose 109 H 111 H Lactic Acid Uric Acid Calcium Magnesium Total Bilirubin Direct Bilirubin AST ALT Alkaline Phosphatase Ammonia CK-MB (CK-2) Rel Index 6.2 H C-Reactive Protein Total Protein Albumin Vitamin B1 Vitamin B12 25-OH Vitamin D Total Free T4 T3 ([facility]ILSON) Urine Creatinine Urine Total Protein Acetaminophen 07/13/18 07/13/18 07/13/18 00:28 07:25 11:20 WBC RBC Hgb Hct MCV MCH RDW Plt Count Lymph % (Auto) [place] % (Auto) Lymph # [place] # Seg Neutrophils % Seg Neuts % (Manual) Lymphocytes % (Manual) Monocytes % (Manual) Seg Neutrophils # Seg Neutrophils # Man Lymphocytes # (Manual) Monocytes # (Manual) POC ABG pH POC ABG pCO2 POC ABG pO2 Sodium Potassium Chloride Carbon Dioxide BUN Creatinine Glucose POC Glucose 106 H 131 H Lactic Acid Uric Acid Calcium Magnesium Total Bilirubin Direct Bilirubin AST ALT Alkaline Phosphatase Ammonia CK-MB (CK-2) Rel Index 6.0 H C-Reactive Protein Total Protein Albumin Vitamin B1 Vitamin B12 25-OH Vitamin D Total Free T4 T3 (GILSON) Urine Creatinine Urine Total Protein Acetaminophen 07/13/18 07/13/18 07/14/18 16:44 22:55 11:30 WBC RBC Hgb Hct MCV MCH RDW Plt Count Lymph % (Auto) [place] % (Auto) Lymph # [place] # Seg Neutrophils % Seg Neuts % (Manual) Lymphocytes % (Manual) Monocytes % (Manual) Seg Neutrophils # Seg Neutrophils # Man Lymphocytes # (Manual) Monocytes # (Manual) POC ABG pH POC ABG pCO2 POC ABG pO2 Sodium Potassium Chloride Carbon Dioxide BUN Creatinine Glucose POC Glucose 127 H 166 H 120 H Lactic Acid Uric Acid Calcium Magnesium Total Bilirubin Direct Bilirubin AST ALT Alkaline Phosphatase Ammonia CK-MB (CK-2) Rel Index C-Reactive Protein Total Protein Albumin Vitamin B1 Vitamin B12 25-OH Vitamin D Total Free T4 T3 (GILSON) Urine Creatinine Urine Total Protein Acetaminophen 07/14/18 07/15/18 07/15/18 16:45 11:44 16:42 WBC RBC Hgb Hct MCV MCH RDW Plt Count Lymph % (Auto) [place] % (Auto) Lymph # [place] # Seg Neutrophils % Seg Neuts % (Manual) Lymphocytes % (Manual) Monocytes % (Manual) Seg Neutrophils # Seg Neutrophils # Man Lymphocytes # (Manual) Monocytes # (Manual) POC ABG pH POC ABG pCO2 POC ABG pO2 Sodium Potassium Chloride Carbon Dioxide BUN Creatinine Glucose POC Glucose 69 L 187 H 126 H Lactic Acid Uric Acid Calcium Magnesium Total Bilirubin Direct Bilirubin AST ALT Alkaline Phosphatase Ammonia CK-MB (CK-2) Rel Index C-Reactive Protein Total Protein Albumin Vitamin B1 Vitamin B12 25-OH Vitamin D Total Free T4 T3 (GILSON) Urine Creatinine Urine Total Protein Acetaminophen 07/16/18 07/16/18 07/16/18 02:05 02:05 11:56 WBC RBC Hgb Hct MCV 78 L MCH 25 L RDW 17.6 H Plt Count Lymph % (Auto) [place] % (Auto) Lymph # [place] # Seg Neutrophils % Seg Neuts % (Manual) Lymphocytes % (Manual) Monocytes % (Manual) Seg Neutrophils # Seg Neutrophils # Man Lymphocytes # (Manual) Monocytes # (Manual) POC ABG pH POC ABG pCO2 POC ABG pO2 Sodium 136 L Potassium Chloride Carbon Dioxide BUN Creatinine 0.5 L Glucose POC Glucose 152 H Lactic Acid Uric Acid Calcium Magnesium Total Bilirubin Direct Bilirubin AST ALT Alkaline Phosphatase Ammonia CK-MB (CK-2) Rel Index C-Reactive Protein Total Protein Albumin Vitamin B1 Vitamin B12 25-OH Vitamin D Total Free T4 T3 (GILSON) Urine Creatinine Urine Total Protein Acetaminophen 07/16/18 07/16/18 07/17/18 16:25 22:00 07:24 WBC RBC Hgb Hct MCV MCH RDW Plt Count Lymph % (Auto) [place] % (Auto) Lymph # [place] # Seg Neutrophils % Seg Neuts % (Manual) Lymphocytes % (Manual) Monocytes % (Manual) Seg Neutrophils # Seg Neutrophils # Man Lymphocytes # (Manual) Monocytes # (Manual) POC ABG pH POC ABG pCO2 POC ABG pO2 Sodium Potassium Chloride Carbon Dioxide BUN Creatinine Glucose POC Glucose 117 H 247 H 63 L Lactic Acid Uric Acid Calcium Magnesium Total Bilirubin Direct Bilirubin AST ALT Alkaline Phosphatase Ammonia CK-MB (CK-2) Rel Index C-Reactive Protein Total Protein Albumin Vitamin B1 Vitamin B12 25-OH Vitamin D Total Free T4 T3 (GILSON) Urine Creatinine Urine Total Protein Acetaminophen 07/17/18 07/17/18 07/17/18 11:30 16:45 21:57 WBC RBC Hgb Hct MCV MCH RDW Plt Count Lymph % (Auto) [place] % (Auto) Lymph # [place] # Seg Neutrophils % Seg Neuts % (Manual) Lymphocytes % (Manual) Monocytes % (Manual) Seg Neutrophils # Seg Neutrophils # Man Lymphocytes # (Manual) Monocytes # (Manual) POC ABG pH POC ABG pCO2 POC ABG pO2 Sodium Potassium Chloride Carbon Dioxide BUN Creatinine Glucose POC Glucose 257 H 166 H 148 H Lactic Acid Uric Acid Calcium Magnesium Total Bilirubin Direct Bilirubin AST ALT Alkaline Phosphatase Ammonia CK-MB (CK-2) Rel Index C-Reactive Protein Total Protein Albumin Vitamin B1 Vitamin B12 25-OH Vitamin D Total Free T4 T3 (GILSON) Urine Creatinine Urine Total Protein Acetaminophen 07/18/18 07/18/18 07:47 11:25 WBC RBC Hgb Hct MCV MCH RDW Plt Count Lymph % (Auto) [place] % (Auto) Lymph # [place] # Seg Neutrophils % Seg Neuts % (Manual) Lymphocytes % (Manual) Monocytes % (Manual) Seg Neutrophils # Seg Neutrophils # Man Lymphocytes # (Manual) Monocytes # (Manual) POC ABG pH POC ABG pCO2 POC ABG pO2 Sodium Potassium Chloride Carbon Dioxide BUN Creatinine Glucose POC Glucose 66 L 119 H Lactic Acid Uric Acid Calcium Magnesium Total Bilirubin Direct Bilirubin AST ALT Alkaline Phosphatase Ammonia CK-MB (CK-2) Rel Index C-Reactive Protein Total Protein Albumin Vitamin B1 Vitamin B12 25-OH Vitamin D Total Free T4 T3 (GILSON) Urine Creatinine Urine Total Protein Acetaminophen Allied health notes reviewed: nursing
[2018-07-18] MEDS: LANOXIN PO SCH (19:00)
[2018-07-18] MEDS: NORCO 5/325 PO PRN (19:00)
[2018-07-19] MEDS: LOPRESSOR PO SCH ×3 (02:24→16:51)
[2018-07-19] MEDS: LASIX PO SCH ×2 (05:47→17:04)
[2018-07-19] MEDS: HumaLOG SUB-Q SCH ×3 (07:57→16:50)
[2018-07-19] MEDS: DUONEB *Not for PRN Use IH SCH ×2 (09:11→14:17)
[2018-07-19] MEDS: ELIQUIS PO SCH (10:09)
[2018-07-19] MEDS: PEPCID PO SCH (10:11)
[2018-07-19] MEDS: ZOLOFT PO SCH (10:11)
[2018-07-19] MEDS: ZESTRIL PO SCH (10:11)
--- NOTE | 2018-07-19 11:43 | Discharge Summary ---
Providers - Providers Date of Admission: 06/17/18 02:59 Attending physician: LINETTE SÁNCHEZ MD 06/17/18 12:19 Consult to Physician [CONS] Routine Comment: Consulting Provider: CLEMENTINE WING Physician Instructions: Reason For Exam: Altered mental status 06/17/18 16:25 Consult to Mental Health [CONS] Routine Reason For Exam: Confused, agitated Place consult to:: Psych Notified:: YES Phone number called:: [phone] Was contact made?: No If yes, spoke with:: - Time called:: 16:42 Comment:: LEFT MESSAGE ON MACHINE ONLY OPTION AVAILABLE. [id number] NO ANSWER 06/19/18 14:17 Consult to Physician [CONS] Routine Comment: Consulting Provider: TERRY ARRIAGA Physician Instructions: Reason For Exam: Hyponatremia 06/19/18 15:57 Consult to Case Management [CONS] Routine Services Needed at Discharge: Other Notified:: Case management Comment:: dc planning. patientt states she was discharged from hospice 06/20/18 09:33 Consult to Physician [CONS] Routine Comment: Consulting Provider: SILAS RUIZ Physician Instructions: Reason For Exam: Altered mental status, 06/26/18 11:16 Consult to Physician [CONS] Routine Comment: Consulting Provider: GRACE GAXIOLA Physician Instructions: Reason For Exam: RESPIRATORY FAILURE S/P ARREST 06/27/18 11:56 PICC Line Insertion [Consult to PICC Line RN] [CONS] Urgent Reason For Exam: Hypotension Type Line:: PICC 06/29/18 11:55 Physical Therapy Evaluation and Treat [CONS] Routine Comment: Reason For Exam: Debility 06/29/18 11:56 Occupational Therapy Evaluate and Treat [CONS] Routine Comment: Reason For Exam: Debility 06/30/18 11:13 Speech Therapy Evaluation and Treat [CONS] Urgent Reason For Exam: dysphagia screen 06/30/18 16:18 Consult to Mental Health [CONS] Routine Reason For Exam: MEDICATION MANAGEMENT Place consult to:: MENTAL HEALTH Notified:: Rosie SNEED Phone number called:: [phone]. [phone] Was contact made?: Yes If yes, spoke with:: [facility] Time called:: 07:47 07/01/18 11:51 Consult to Dietitian/Nutrition [CONS] Routine Physician Instructions: Reason For Exam: Reason for Consult: Poor oral intake 07/07/18 10:04 Consult to Case Management [CONS] Routine Services Needed at Discharge: Other Notified:: PARESH Was contact made?: Yes If yes, spoke with:: PARESH Comment:: HOSPICE 07/12/18 05:59 Consult to Dietitian/Nutrition [CONS] Routine Physician Instructions: Reason For Exam: Reason for Consult: Malnutrition Primary care physician: [facility], Hospitalization Reason for admission: AMS Condition: Fair Hospital course: Patient is 68 yo woman with a history of hypertension, CHF and Atrial fibrillation who was on hospice presented with altered mental status. She was cl imbing a fence, running wild; therefore, brought to ED. CT head was neg. MRI Brain unremarkable. Patient evaluated by Neuro and psychiatry. She was initially a 1013 but is was rescinded. It appears Neurology believes patient AMS is a psychotic disorder but Psychiatry has not really making a definitive diagnosis. During the hospital stay, She received Haldol to obtain CT head but had PEA cardiac arrest on 06/26/18, she received Epinephrine then developed pulseless Ventricular fibrillation and 1 shock via defibrillator was delivered with return of pulse. She was also found to have a very low blood glucose during the cardiac arrest and was treated with IV dextrose. She was intubated during the Code blue and sent to ICU. Cardiology consulted, she is s/p dobutamin drip for severe NICM, now extubated and transferred out off ICU. She has been stable and is awaiting placement t to shelter facility. She had an episode of chest pain but cardiac enzymes were normal and EKG was unchanged . 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, Severe protein calorie malnutrition: SIRS Persistently elevated Lactic acidosis Hypokalemia Disposition: - TO HOME OR SELFCARE Time spent for discharge: 35 MINS Core Measure Documentation - Palliative Care Palliative Care/ Comfort Measures: Not Applicable - Core Measures Any of the following diagnoses?: none Exam - Physical Exam Narrative exam: Hospitalist Physical - Physical exam Narrative exam: GEN: Not in acute distress, lying in bed, obese HEENT: Normocephalic, atraumatic, Neck: supple, No JVD heart: S1 and S2 reg, no murmurs, rubs or gallop Lungs: Clear to auscultation bilat, no crackles, no wheeze Abd:soft, non tender, non distended, normal bowel sounds Ext: No edema, no clubbing, no cyanosis Neuro:Awake,alert, moves all ext. - Constitutional Vitals: Temp Pulse Resp BP Pulse Ox 97.6 F 100 H 20 110/61 99 07/19/18 11:08 07/19/18 11:08 07/19/18 11:08 07/19/18 11:08 07/19/18 11:08 Plan Activity: advance as tolerated, fall precautions Diet: low salt, diabetic Special Instructions: record daily BP diary, record blood sugar diary Follow up with: RASHEEDA ESTRADA MD [Staff Physician] - 7 Days VERNAL KEELY PIERCE MD [Primary Care Provider] - 3-5 Days Prescriptions: Carvedilol [Coreg] 12.5 mg PO BID #60 tablet Apixaban [Eliquis] 5 mg PO DAILY #30 tablet Digoxin [Lanoxin] 0.125 mg PO DAILY@1700 #30 tablet Furosemide [Lasix TAB] 20 mg PO 0600,1800 #60 tablet AtorvaSTATin [Lipitor] 20 mg PO DAILY #30 tablet Famotidine [Pepcid] 20 mg PO DAILY #30 tablet Lisinopril [Zestril TAB] 5 mg PO QDAY #30 tablet Sertraline [Zoloft] 50 mg PO DAILY #30 tablet Ipratropium/Albuterol Sulfate [DUONEB *Not for PRN Use*] 1 ampul IH TIDRT #50 ampul.neb
--- NOTE | 2018-07-19 13:50 | Progress Note ---
Assessment and Plan Patient awake. Patient resting on room air. O2 saturation 99%. No acute respiratory distress. Patient afebrile. No leukocytosis. Patient discharged to go home. can come to office in 1-2 weeks for pulmonary follow up. - Patient Problems (1) Cardiac arrest Current Visit: Yes Status: Acute Plan to address problem: Patient successfully resuciated. Patient resting on room air. O2 saturation 99%. (2) Acute respiratory failure with hypoxia Current Visit: Yes Status: Acute Plan to address problem: Patient presently on room air. O2 saturation 99%. (3) Acute kidney failure with tubular necrosis Current Visit: Yes Status: Acute Plan to address problem: Management as per nephrology. (4) Altered mental status Current Visit: Yes Status: Acute Plan to address problem: Improved. (5) Paroxysmal atrial fibrillation Current Visit: Yes Status: Acute Plan to address problem: Patient is on Apixaban. Management as per cardiology. (6) Acute on chronic systolic heart failure Current Visit: No Status: Acute Plan to address problem: Management as per cardiology. (7) HTN (hypertension) Current Visit: No Status: Chronic Plan to address problem: Management as per primary care. (8) Left lower lobe pulmonary infiltrate Current Visit: Yes Status: Acute Plan to address problem: Patient afebrile. No leukocytosis. Significant improvement in chest xray. Mild volume Overload. Subjective Date of service: 07/19/18 Principal diagnosis: altered mental status, psychosis, chronic systolic heart failure, Interval history: Patient awake. Patient resting on room air. O2 saturation 99%. No acute respiratory distress. Patient afebrile. No leukocytosis. Patient discharged to go home. can come to office in 1-2 weeks for pulmonary follow up. Objective Vital Signs - 12hr 07/19/18 07/19/18 07/19/18 04:00 10:11 11:08 Temperature 97.6 F Pulse Rate 80 100 H 100 H Respiratory 20 Rate Blood Pressure 110/73 110/61 O2 Sat by Pulse 99 Oximetry 07/19/18 13:21 Temperature 98.1 F Pulse Rate 84 Respiratory 18 Rate Blood Pressure 118/71 O2 Sat by Pulse 99 Oximetry Constitutional: no acute distress, alert, other (Confusing at times.) Eyes: non-icteric, other (Pupils 4mm, sluggichly reacting to light) ENT: oropharynx dry, other (extubated) Neck: supple, no lymphadenopathy, no JVD, other (no thyromegaly) Effort: normal Ascultation: Bilateral: diminished breath sounds, rales Percussion: Bilateral: not dull Cardiovascular: irregular rhythm, other (S1,S2,) Gastrointestinal: normoactive bowel sounds, soft, non-tender, non-distended Integumentary: rash (exematoid rash to upper chest) Extremities: no cyanosis, no edema, pulses normal, no ischemia or petechiae Neurologic: normal mental status, non-focal exam (grossly), pupils equal and round, CN II-XII normal Psychiatric: depressed CBC and BMP: 07/16/18 02:05 07/16/18 02:05 ABG, PT/INR, D-dimer: ABG POC ABG pH 7.552 (7.35-7.45) H 06/28/18 10:53 POC ABG pCO2 40.8 (35-45) 06/28/18 10:53 POC ABG pO2 83 (80-105) 06/28/18 10:53 POC ABG HCO3 35.9 (22-26 mml/L) 06/28/18 10:53 POC ABG Total CO2 37 (23-27mmol/L) 06/28/18 10:53 POC ABG O2 Sat 97 06/28/18 10:53 Abnormal lab findings: Abnormal Labs 06/16/18 06/16/18 06/16/18 21:05 21:43 21:43 WBC RBC Hgb Hct MCV MCH RDW Plt Count Lymph % (Auto) [place] % (Auto) Lymph # [place] # Seg Neutrophils % Seg Neuts % (Manual) Lymphocytes % (Manual) Monocytes % (Manual) Seg Neutrophils # Seg Neutrophils # Man Lymphocytes # (Manual) Monocytes # (Manual) POC ABG pH POC ABG pCO2 POC ABG pO2 Sodium 129 L Potassium Chloride 95.3 L Carbon Dioxide 14 L BUN 23 H Creatinine Glucose 146 H POC Glucose < 40 L Lactic Acid Uric Acid Calcium Magnesium Total Bilirubin Direct Bilirubin AST ALT Alkaline Phosphatase Ammonia CK-MB (CK-2) Rel Index C-Reactive Protein Total Protein Albumin Vitamin B1 Vitamin B12 25-OH Vitamin D Total Free T4 T3 (GILSON) Urine Creatinine Urine Total Protein Acetaminophen < 5.0 L 06/16/18 06/16/18 06/16/18 21:43 21:43 22:27 WBC RBC 5.70 H Hgb Hct 44.6 H MCV 78 L MCH 25 L RDW 18.7 H Plt Count Lymph % (Auto) [place] % (Auto) Lymph # [place] # Seg Neutrophils % 78.8 H Seg Neuts % (Manual) Lymphocytes % (Manual) Monocytes % (Manual) Seg Neutrophils # Seg Neutrophils # Man Lymphocytes # (Manual) Monocytes # (Manual) POC ABG pH POC ABG pCO2 POC ABG pO2 Sodium Potassium Chloride Carbon Dioxide BUN Creatinine Glucose POC Glucose 121 H Lactic Acid Uric Acid Calcium Magnesium Total Bilirubin Direct Bilirubin AST ALT Alkaline Phosphatase Ammonia CK-MB (CK-2) Rel Index C-Reactive Protein Total Protein Albumin Vitamin B1 Vitamin B12 25-OH Vitamin D Total Free T4 1.87 H T3 (GILSON) Urine Creatinine Urine Total Protein Acetaminophen 06/16/18 06/16/18 06/17/18 22:33 23:43 03:56 WBC RBC Hgb Hct MCV MCH RDW Plt Count Lymph % (Auto) [place] % (Auto) Lymph # [place] # Seg Neutrophils % Seg Neuts % (Manual) Lymphocytes % (Manual) Monocytes % (Manual) Seg Neutrophils # Seg Neutrophils # Man Lymphocytes # (Manual) Monocytes # (Manual) POC ABG pH POC ABG pCO2 POC ABG pO2 Sodium Potassium Chloride Carbon Dioxide BUN Creatinine Glucose POC Glucose Lactic Acid 4.40 H* 4.30 H* 3.10 H* Uric Acid Calcium Magnesium Total Bilirubin Direct Bilirubin AST ALT Alkaline Phosphatase Ammonia CK-MB (CK-2) Rel Index C-Reactive Protein Total Protein Albumin Vitamin B1 Vitamin B12 25-OH Vitamin D Total Free T4 T3 (GILSON) Urine Creatinine Urine Total Protein Acetaminophen 06/17/18 06/17/18 06/17/18 08:35 08:40 11:00 WBC RBC Hgb Hct MCV MCH RDW Plt Count Lymph % (Auto) [place] % (Auto) Lymph # [place] # Seg Neutrophils % Seg Neuts % (Manual) Lymphocytes % (Manual) Monocytes % (Manual) Seg Neutrophils # Seg Neutrophils # Man Lymphocytes # (Manual) Monocytes # (Manual) POC ABG pH POC ABG pCO2 POC ABG pO2 Sodium Potassium Chloride Carbon Dioxide BUN Creatinine Glucose POC Glucose 56 L Lactic Acid 2.70 H* 3.40 H* Uric Acid Calcium Magnesium Total Bilirubin Direct Bilirubin AST ALT Alkaline Phosphatase Ammonia CK-MB (CK-2) Rel Index C-Reactive Protein Total Protein Albumin Vitamin B1 Vitamin B12 25-OH Vitamin D Total Free T4 T3 (GILSON) Urine Creatinine Urine Total Protein Acetaminophen 06/17/18 06/17/18 06/17/18 11:00 11:00 11:00 WBC 11.9 H RBC 5.25 H Hgb Hct MCV MCH 25 L RDW 18.6 H Plt Count Lymph % (Auto) [place] % (Auto) Lymph # [place] # Seg Neutrophils % Seg Neuts % (Manual) Lymphocytes % (Manual) Monocytes % (Manual) Seg Neutrophils # Seg Neutrophils # Man Lymphocytes # (Manual) Monocytes # (Manual) POC ABG pH POC ABG pCO2 POC ABG pO2 Sodium 128 L Potassium Chloride 95.6 L Carbon Dioxide 15 L BUN 22 H Creatinine Glucose 110 H POC Glucose Lactic Acid Uric Acid Calcium 8.3 L Magnesium Total Bilirubin Direct Bilirubin 1.6 H AST 66 H ALT Alkaline Phosphatase 178 H Ammonia CK-MB (CK-2) Rel Index C-Reactive Protein Total Protein 4.7 L Albumin 2.4 L Vitamin B1 Vitamin B12 25-OH Vitamin D Total Free T4 T3 (GILSON) Urine Creatinine Urine Total Protein Acetaminophen 06/17/18 06/17/18 06/17/18 15:08 15:08 23:00 WBC RBC Hgb Hct MCV MCH RDW Plt Count Lymph % (Auto) [place] % (Auto) Lymph # [place] # Seg Neutrophils % Seg Neuts % (Manual) Lymphocytes % (Manual) Monocytes % (Manual) Seg Neutrophils # Seg Neutrophils # Man Lymphocytes # (Manual) Monocytes # (Manual) POC ABG pH POC ABG pCO2 POC ABG pO2 Sodium Potassium Chloride Carbon Dioxide BUN Creatinine Glucose POC Glucose Lactic Acid 4.00 H* Uric Acid Calcium Magnesium Total Bilirubin Direct Bilirubin AST ALT Alkaline Phosphatase Ammonia 10.0 L CK-MB (CK-2) Rel Index C-Reactive Protein Total Protein Albumin Vitamin B1 Vitamin B12 25-OH Vitamin D Total Free T4 1.53 H T3 (GILSON) Urine Creatinine Urine Total Protein Acetaminophen 06/18/18 06/18/18 06/18/18 08:59 08:59 12:49 WBC RBC 5.29 H Hgb Hct MCV 78 L MCH 25 L RDW 18.4 H Plt Count Lymph % (Auto) [place] % (Auto) Lymph # [place] # Seg Neutrophils % Seg Neuts % (Manual) Lymphocytes % (Manual) Monocytes % (Manual) Seg Neutrophils # Seg Neutrophils # Man Lymphocytes # (Manual) Monocytes # (Manual) POC ABG pH POC ABG pCO2 POC ABG pO2 Sodium 128 L Potassium 5.9 H D Chloride 96.1 L Carbon Dioxide 20 L BUN 22 H Creatinine Glucose POC Glucose 60 L Lactic Acid Uric Acid Calcium Magnesium Total Bilirubin Direct Bilirubin AST ALT Alkaline Phosphatase Ammonia CK-MB (CK-2) Rel Index C-Reactive Protein Total Protein Albumin Vitamin B1 Vitamin B12 25-OH Vitamin D Total Free T4 T3 (GILSON) Urine Creatinine Urine Total Protein Acetaminophen 06/18/18 06/19/18 06/19/18 21:28 12:14 13:23 WBC RBC Hgb Hct MCV MCH RDW Plt Count Lymph % (Auto) [place] % (Auto) Lymph # [place] # Seg Neutrophils % Seg Neuts % (Manual) Lymphocytes % (Manual) Monocytes % (Manual) Seg Neutrophils # Seg Neutrophils # Man Lymphocytes # (Manual) Monocytes # (Manual) POC ABG pH POC ABG pCO2 POC ABG pO2 Sodium 122 L Potassium 5.4 H Chloride 95.0 L Carbon Dioxide 13 L D BUN 21 H Creatinine Glucose 119 H POC Glucose 114 H Lactic Acid Uric Acid Calcium 8.3 L Magnesium Total Bilirubin Direct Bilirubin AST ALT Alkaline Phosphatase Ammonia CK-MB (CK-2) Rel Index C-Reactive Protein Total Protein Albumin Vitamin B1 Vitamin B12 25-OH Vitamin D Total Free T4 T3 (GILSON) Urine Creatinine Urine Total Protein Acetaminophen 06/19/18 06/19/18 06/19/18 14:47 16:38 22:42 WBC RBC 5.51 H Hgb Hct 45.3 H MCV MCH 25 L RDW 18.6 H Plt Count Lymph % (Auto) [place] % (Auto) Lymph # [place] # Seg Neutrophils % Seg Neuts % (Manual) Lymphocytes % (Manual) Monocytes % (Manual) Seg Neutrophils # Seg Neutrophils # Man Lymphocytes # (Manual) Monocytes # (Manual) POC ABG pH POC ABG pCO2 POC ABG pO2 Sodium Potassium Chloride Carbon Dioxide BUN Creatinine Glucose POC Glucose 108 H 49 L Lactic Acid Uric Acid Calcium Magnesium Total Bilirubin Direct Bilirubin AST ALT Alkaline Phosphatase Ammonia CK-MB (CK-2) Rel Index C-Reactive Protein Total Protein Albumin Vitamin B1 Vitamin B12 25-OH Vitamin D Total Free T4 T3 (GILSON) Urine Creatinine Urine Total Protein Acetaminophen 06/19/18 06/20/18 06/20/18 Unknown 07:31 16:51 WBC RBC Hgb Hct MCV MCH RDW Plt Count Lymph % (Auto) [place] % (Auto) Lymph # [place] # Seg Neutrophils % Seg Neuts % (Manual) Lymphocytes % (Manual) Monocytes % (Manual) Seg Neutrophils # Seg Neutrophils # Man Lymphocytes # (Manual) Monocytes # (Manual) POC ABG pH POC ABG pCO2 POC ABG pO2 Sodium 132 L D Potassium Chloride 94.3 L Carbon Dioxide BUN 20 H Creatinine Glucose POC Glucose Lactic Acid Uric Acid 8.6 H Calcium Magnesium 1.30 L Total Bilirubin Direct Bilirubin AST ALT Alkaline Phosphatase Ammonia CK-MB (CK-2) Rel Index C-Reactive Protein Total Protein Albumin Vitamin B1 Vitamin B12 25-OH Vitamin D Total Free T4 T3 (GILSON) 58 L Urine Creatinine 61.7 H Urine Total Protein 32 H Acetaminophen 06/20/18 06/20/18 06/21/18 20:53 20:53 16:27 WBC RBC Hgb Hct MCV MCH RDW Plt Count Lymph % (Auto) [place] % (Auto) Lymph # [place] # Seg Neutrophils % Seg Neuts % (Manual) Lymphocytes % (Manual) Monocytes % (Manual) Seg Neutrophils # Seg Neutrophils # Man Lymphocytes # (Manual) Monocytes # (Manual) POC ABG pH POC ABG pCO2 POC ABG pO2 Sodium Potassium Chloride Carbon Dioxide BUN Creatinine Glucose POC Glucose Lactic Acid Uric Acid 9.2 H Calcium Magnesium Total Bilirubin Direct Bilirubin AST ALT Alkaline Phosphatase Ammonia CK-MB (CK-2) Rel Index C-Reactive Protein Total Protein Albumin Vitamin B1 Vitamin B12 1598 H 25-OH Vitamin D Total 10 L Free T4 T3 (GILSON) Urine Creatinine Urine Total Protein Acetaminophen 06/21/18 06/21/18 06/21/18 16:27 16:27 16:27 WBC RBC 5.26 H Hgb Hct MCV 77 L MCH 26 L RDW 17.7 H Plt Count Lymph % (Auto) [place] % (Auto) Lymph # [place] # Seg Neutrophils % Seg Neuts % (Manual) Lymphocytes % (Manual) Monocytes % (Manual) Seg Neutrophils # Seg Neutrophils # Man Lymphocytes # (Manual) Monocytes # (Manual) POC ABG pH POC ABG pCO2 POC ABG pO2 Sodium 130 L Potassium Chloride 95.6 L Carbon Dioxide BUN 24 H Creatinine Glucose POC Glucose Lactic Acid Uric Acid Calcium Magnesium Total Bilirubin Direct Bilirubin AST ALT Alkaline Phosphatase Ammonia CK-MB (CK-2) Rel Index C-Reactive Protein Total Protein Albumin Vitamin B1 <6 L Vitamin B12 25-OH Vitamin D Total Free T4 T3 (GILSON) Urine Creatinine Urine Total Protein Acetaminophen 06/21/18 06/22/18 06/23/18 21:44 21:42 14:54 WBC RBC 5.07 H Hgb Hct MCV 78 L MCH 25 L RDW 18.5 H Plt Count Lymph % (Auto) [place] % (Auto) 12.3 H Lymph # 1.0 L [place] # Seg Neutrophils % Seg Neuts % (Manual) Lymphocytes % (Manual) Monocytes % (Manual) Seg Neutrophils # Seg Neutrophils # Man Lymphocytes # (Manual) Monocytes # (Manual) POC ABG pH POC ABG pCO2 POC ABG pO2 Sodium Potassium Chloride Carbon Dioxide BUN Creatinine Glucose POC Glucose 126 H 114 H Lactic Acid Uric Acid Calcium Magnesium Total Bilirubin Direct Bilirubin AST ALT Alkaline Phosphatase Ammonia CK-MB (CK-2) Rel Index C-Reactive Protein Total Protein Albumin Vitamin B1 Vitamin B12 25-OH Vitamin D Total Free T4 T3 (GILSON) Urine Creatinine Urine Total Protein Acetaminophen 06/23/18 06/25/18 06/25/18 14:54 00:00 00:00 WBC 3.6 L RBC 5.31 H Hgb Hct MCV 77 L MCH 26 L RDW 19.0 H Plt Count Lymph % (Auto) [place] % (Auto) 10.2 H Lymph # [place] # Seg Neutrophils % Seg Neuts % (Manual) Lymphocytes % (Manual) Monocytes % (Manual) Seg Neutrophils # Seg Neutrophils # Man Lymphocytes # (Manual) Monocytes # (Manual) POC ABG pH POC ABG pCO2 POC ABG pO2 Sodium 132 L 131 L Potassium 3.5 L Chloride 91.5 L 93.5 L Carbon Dioxide BUN 19 H 21 H Creatinine Glucose POC Glucose Lactic Acid Uric Acid Calcium 8.1 L Magnesium Total Bilirubin 2.80 H 2.70 H Direct Bilirubin AST 52 H 81 H ALT Alkaline Phosphatase 231 H 243 H Ammonia CK-MB (CK-2) Rel Index C-Reactive Protein Total Protein 5.5 L 5.5 L Albumin 2.8 L 2.7 L Vitamin B1 Vitamin B12 25-OH Vitamin D Total Free T4 T3 (GILSON) Urine Creatinine Urine Total Protein Acetaminophen 06/25/18 06/25/18 06/25/18 16:02 16:02 16:18 WBC 3.9 L RBC 5.78 H Hgb 14.6 H Hct 45.4 H MCV MCH 25 L RDW 19.2 H Plt Count Lymph % (Auto) [place] % (Auto) Lymph # [place] # Seg Neutrophils % Seg Neuts % (Manual) Lymphocytes % (Manual) Monocytes % (Manual) Seg Neutrophils # Seg Neutrophils # Man Lymphocytes # (Manual) 1.1 L Monocytes # (Manual) POC ABG pH POC ABG pCO2 POC ABG pO2 Sodium 131 L Potassium Chloride 90.0 L Carbon Dioxide BUN 25 H Creatinine 1.4 H Glucose POC Glucose Lactic Acid 4.00 H* Uric Acid Calcium Magnesium Total Bilirubin 3.10 H Direct Bilirubin AST 68 H ALT Alkaline Phosphatase 296 H Ammonia CK-MB (CK-2) Rel Index C-Reactive Protein Total Protein 6.1 L Albumin 3.3 L Vitamin B1 Vitamin B12 25-OH Vitamin D Total Free T4 T3 (GILSON) Urine Creatinine Urine Total Protein Acetaminophen 06/25/18 06/26/18 06/26/18 21:06 11:33 11:37 WBC RBC Hgb Hct MCV MCH 26 L RDW 19.2 H Plt Count 139 L Lymph % (Auto) [place] % (Auto) Lymph # [place] # Seg Neutrophils % Seg Neuts % (Manual) 85.0 H Lymphocytes % (Manual) 6.0 L Monocytes % (Manual) Seg Neutrophils # Seg Neutrophils # Man 8.0 H Lymphocytes # (Manual) 0.6 L Monocytes # (Manual) POC ABG pH POC ABG pCO2 POC ABG pO2 Sodium Potassium Chloride Carbon Dioxide BUN Creatinine Glucose POC Glucose < 40 L Lactic Acid 6.40 H* Uric Acid Calcium Magnesium Total Bilirubin Direct Bilirubin AST ALT Alkaline Phosphatase Ammonia CK-MB (CK-2) Rel Index C-Reactive Protein Total Protein Albumin Vitamin B1 Vitamin B12 25-OH Vitamin D Total Free T4 T3 (GILSON) Urine Creatinine Urine Total Protein Acetaminophen 06/26/18 06/26/18 06/26/18 11:37 11:51 11:59 WBC RBC Hgb Hct MCV MCH RDW Plt Count Lymph % (Auto) [place] % (Auto) Lymph # [place] # Seg Neutrophils % Seg Neuts % (Manual) Lymphocytes % (Manual) Monocytes % (Manual) Seg Neutrophils # Seg Neutrophils # Man Lymphocytes # (Manual) Monocytes # (Manual) POC ABG pH 7.029 L POC ABG pCO2 POC ABG pO2 73 L Sodium 129 L Potassium Chloride 87.0 L Carbon Dioxide 11 L D BUN 31 H Creatinine 1.9 H Glucose 206 H POC Glucose 253 H Lactic Acid Uric Acid Calcium 7.9 L Magnesium Total Bilirubin 2.90 H Direct Bilirubin AST 98 H ALT Alkaline Phosphatase 196 H Ammonia CK-MB (CK-2) Rel Index C-Reactive Protein Total Protein 4.3 L D Albumin 2.2 L Vitamin B1 Vitamin B12 25-OH Vitamin D Total Free T4 T3 (GILSON) Urine Creatinine Urine Total Protein Acetaminophen 06/26/18 06/26/18 06/26/18 14:54 15:08 15:10 WBC 14.2 H RBC 5.66 H Hgb 14.5 H Hct 45.6 H D MCV MCH 26 L RDW 19.4 H Plt Count Lymph % (Auto) [place] % (Auto) Lymph # [place] # Seg Neutrophils % Seg Neuts % (Manual) 88.0 H Lymphocytes % (Manual) 5.0 L Monocytes % (Manual) Seg Neutrophils # Seg Neutrophils # Man 12.5 H Lymphocytes # (Manual) 0.7 L Monocytes # (Manual) 0.9 H POC ABG pH POC ABG pCO2 POC ABG pO2 Sodium Potassium Chloride Carbon Dioxide BUN Creatinine Glucose POC Glucose 172 H Lactic Acid 11.90 H* Uric Acid Calcium Magnesium Total Bilirubin Direct Bilirubin AST ALT Alkaline Phosphatase Ammonia CK-MB (CK-2) Rel Index C-Reactive Protein Total Protein Albumin Vitamin B1 Vitamin B12 25-OH Vitamin D Total Free T4 T3 (GILSON) Urine Creatinine Urine Total Protein Acetaminophen 06/26/18 06/26/18 06/26/18 16:01 18:47 20:55 WBC RBC Hgb Hct MCV MCH RDW Plt Count Lymph % (Auto) [place] % (Auto) Lymph # [place] # Seg Neutrophils % Seg Neuts % (Manual) Lymphocytes % (Manual) Monocytes % (Manual) Seg Neutrophils # Seg Neutrophils # Man Lymphocytes # (Manual) Monocytes # (Manual) POC ABG pH POC ABG pCO2 34.0 L POC ABG pO2 Sodium Potassium Chloride Carbon Dioxide BUN Creatinine Glucose POC Glucose 183 H 131 H Lactic Acid Uric Acid Calcium Magnesium Total Bilirubin Direct Bilirubin AST ALT Alkaline Phosphatase Ammonia CK-MB (CK-2) Rel Index C-Reactive Protein Total Protein Albumin Vitamin B1 Vitamin B12 25-OH Vitamin D Total Free T4 T3 (GILSON) Urine Creatinine Urine Total Protein Acetaminophen 06/26/18 06/27/18 06/27/18 21:55 09:29 09:29 WBC RBC Hgb Hct MCV MCH RDW Plt Count Lymph % (Auto) [place] % (Auto) Lymph # [place] # Seg Neutrophils % Seg Neuts % (Manual) Lymphocytes % (Manual) Monocytes % (Manual) Seg Neutrophils # Seg Neutrophils # Man Lymphocytes # (Manual) Monocytes # (Manual) POC ABG pH POC ABG pCO2 POC ABG pO2 Sodium 135 L 135 L Potassium 3.5 L Chloride 91.7 L 91.2 L Carbon Dioxide BUN 35 H 37 H Creatinine 2.3 H 2.1 H Glucose 147 H 104 H POC Glucose Lactic Acid Uric Acid Calcium 8.3 L 8.1 L Magnesium Total Bilirubin 3.50 H Direct Bilirubin AST 218 H ALT 57 H Alkaline Phosphatase 197 H Ammonia CK-MB (CK-2) Rel Index C-Reactive Protein Total Protein 5.0 L Albumin 2.3 L Vitamin B1 Vitamin B12 25-OH Vitamin D Total Free T4 1.78 H T3 (GILSON) Urine Creatinine Urine Total Protein Acetaminophen 06/27/18 06/27/18 06/27/18 09:29 09:29 10:00 WBC 16.3 H RBC 5.44 H Hgb Hct MCV 76 L MCH 25 L RDW 18.3 H Plt Count Lymph % (Auto) [place] % (Auto) Lymph # [place] # Seg Neutrophils % Seg Neuts % (Manual) 91.0 H Lymphocytes % (Manual) 3.0 L Monocytes % (Manual) Seg Neutrophils # Seg Neutrophils # Man 14.8 H Lymphocytes # (Manual) 0.5 L Monocytes # (Manual) 1.0 H POC ABG pH POC ABG pCO2 POC ABG pO2 Sodium Potassium Chloride Carbon Dioxide BUN Creatinine Glucose POC Glucose 106 H Lactic Acid 4.00 H* Uric Acid Calcium Magnesium Total Bilirubin Direct Bilirubin AST ALT Alkaline Phosphatase Ammonia CK-MB (CK-2) Rel Index C-Reactive Protein Total Protein Albumin Vitamin B1 Vitamin B12 25-OH Vitamin D Total Free T4 T3 (GILSON) Urine Creatinine Urine Total Protein Acetaminophen 06/27/18 06/27/18 06/27/18 11:51 12:50 13:39 WBC RBC Hgb Hct MCV MCH RDW Plt Count Lymph % (Auto) [place] % (Auto) Lymph # [place] # Seg Neutrophils % Seg Neuts % (Manual) Lymphocytes % (Manual) Monocytes % (Manual) Seg Neutrophils # Seg Neutrophils # Man Lymphocytes # (Manual) Monocytes # (Manual) POC ABG pH 7.584 H POC ABG pCO2 32.8 L POC ABG pO2 109 H Sodium Potassium Chloride Carbon Dioxide BUN Creatinine Glucose POC Glucose 112 H Lactic Acid 3.20 H* Uric Acid Calcium Magnesium Total Bilirubin Direct Bilirubin AST ALT Alkaline Phosphatase Ammonia CK-MB (CK-2) Rel Index C-Reactive Protein Total Protein Albumin Vitamin B1 Vitamin B12 25-OH Vitamin D Total Free T4 T3 (GILSON) Urine Creatinine Urine Total Protein Acetaminophen 06/27/18 06/27/18 06/27/18 19:31 21:50 23:10 WBC RBC Hgb Hct MCV MCH RDW Plt Count Lymph % (Auto) [place] % (Auto) Lymph # [place] # Seg Neutrophils % Seg Neuts % (Manual) Lymphocytes % (Manual) Monocytes % (Manual) Seg Neutrophils # Seg Neutrophils # Man Lymphocytes # (Manual) Monocytes # (Manual) POC ABG pH POC ABG pCO2 POC ABG pO2 Sodium Potassium Chloride Carbon Dioxide BUN Creatinine Glucose POC Glucose Lactic Acid 2.40 H* 2.30 H* 2.30 H* Uric Acid Calcium Magnesium Total Bilirubin Direct Bilirubin AST ALT Alkaline Phosphatase Ammonia CK-MB (CK-2) Rel Index C-Reactive Protein Total Protein Albumin Vitamin B1 Vitamin B12 25-OH Vitamin D Total Free T4 T3 (GILSON) Urine Creatinine Urine Total Protein Acetaminophen 06/28/18 06/28/18 06/28/18 02:35 05:00 05:00 WBC RBC Hgb Hct MCV MCH RDW Plt Count Lymph % (Auto) [place] % (Auto) Lymph # [place] # Seg Neutrophils % Seg Neuts % (Manual) Lymphocytes % (Manual) Monocytes % (Manual) Seg Neutrophils # Seg Neutrophils # Man Lymphocytes # (Manual) Monocytes # (Manual) POC ABG pH POC ABG pCO2 POC ABG pO2 Sodium 134 L Potassium 2.6 L* D Chloride 92.3 L Carbon Dioxide 32 H BUN 34 H Creatinine 1.8 H Glucose 127 H POC Glucose Lactic Acid 2.20 H* 2.30 H* Uric Acid Calcium 7.5 L Magnesium Total Bilirubin 3.50 H Direct Bilirubin AST 226 H ALT 60 H Alkaline Phosphatase 172 H Ammonia CK-MB (CK-2) Rel Index C-Reactive Protein Total Protein 4.2 L Albumin 2.0 L Vitamin B1 Vitamin B12 25-OH Vitamin D Total Free T4 T3 (GILSON) Urine Creatinine Urine Total Protein Acetaminophen 06/28/18 06/28/18 06/28/18 05:00 08:30 08:30 WBC 15.7 H RBC Hgb Hct MCV 77 L MCH 25 L RDW 18.5 H Plt Count 112 L Lymph % (Auto) 6.0 L [place] % (Auto) 10.0 H Lymph # 0.9 L [place] # 1.6 H Seg Neutrophils % 83.4 H Seg Neuts % (Manual) Lymphocytes % (Manual) Monocytes % (Manual) Seg Neutrophils # 13.1 H Seg Neutrophils # Man Lymphocytes # (Manual) Monocytes # (Manual) POC ABG pH POC ABG pCO2 POC ABG pO2 Sodium Potassium Chloride Carbon Dioxide BUN Creatinine Glucose POC Glucose Lactic Acid 2.40 H* Uric Acid Calcium Magnesium Total Bilirubin Direct Bilirubin AST ALT Alkaline Phosphatase Ammonia CK-MB (CK-2) Rel Index C-Reactive Protein 4.80 H Total Protein Albumin Vitamin B1 Vitamin B12 25-OH Vitamin D Total Free T4 T3 (GILSON) Urine Creatinine Urine Total Protein Acetaminophen 06/28/18 06/28/18 06/28/18 10:53 11:23 18:35 WBC RBC Hgb Hct MCV MCH RDW Plt Count Lymph % (Auto) [place] % (Auto) Lymph # [place] # Seg Neutrophils % Seg Neuts % (Manual) Lymphocytes % (Manual) Monocytes % (Manual) Seg Neutrophils # Seg Neutrophils # Man Lymphocytes # (Manual) Monocytes # (Manual) POC ABG pH 7.552 H POC ABG pCO2 POC ABG pO2 Sodium Potassium 3.1 L Chloride Carbon Dioxide BUN Creatinine Glucose POC Glucose 122 H Lactic Acid Uric Acid Calcium Magnesium Total Bilirubin Direct Bilirubin AST ALT Alkaline Phosphatase Ammonia CK-MB (CK-2) Rel Index C-Reactive Protein Total Protein Albumin Vitamin B1 Vitamin B12 25-OH Vitamin D Total Free T4 T3 (GILSON) Urine Creatinine Urine Total Protein Acetaminophen 06/29/18 06/29/18 06/29/18 06:40 06:40 19:44 WBC 14.6 H RBC Hgb Hct MCV 77 L MCH 25 L RDW 19.3 H Plt Count 88 L Lymph % (Auto) [place] % (Auto) Lymph # [place] # Seg Neutrophils % Seg Neuts % (Manual) Lymphocytes % (Manual) Monocytes % (Manual) Seg Neutrophils # Seg Neutrophils # Man Lymphocytes # (Manual) Monocytes # (Manual) POC ABG pH POC ABG pCO2 POC ABG pO2 Sodium Potassium 2.7 L* Chloride 95.3 L Carbon Dioxide 32 H BUN 25 H Creatinine Glucose 145 H POC Glucose 59 L Lactic Acid Uric Acid Calcium 7.9 L Magnesium Total Bilirubin 3.60 H Direct Bilirubin AST 213 H ALT Alkaline Phosphatase 176 H Ammonia CK-MB (CK-2) Rel Index C-Reactive Protein Total Protein 4.8 L Albumin 2.2 L Vitamin B1 Vitamin B12 25-OH Vitamin D Total Free T4 T3 (GILSON) Urine Creatinine Urine Total Protein Acetaminophen 06/29/18 06/30/18 06/30/18 20:43 02:37 04:45 WBC RBC Hgb Hct MCV MCH RDW Plt Count Lymph % (Auto) [place] % (Auto) Lymph # [place] # Seg Neutrophils % Seg Neuts % (Manual) Lymphocytes % (Manual) Monocytes % (Manual) Seg Neutrophils # Seg Neutrophils # Man Lymphocytes # (Manual) Monocytes # (Manual) POC ABG pH POC ABG pCO2 POC ABG pO2 Sodium Potassium 3.1 L 2.8 L* Chloride Carbon Dioxide 31 H BUN 18 H Creatinine Glucose POC Glucose 59 L Lactic Acid Uric Acid Calcium 8.0 L Magnesium Total Bilirubin 3.70 H Direct Bilirubin AST 216 H ALT 63 H Alkaline Phosphatase 163 H Ammonia CK-MB (CK-2) Rel Index C-Reactive Protein Total Protein 4.5 L Albumin 2.1 L Vitamin B1 Vitamin B12 25-OH Vitamin D Total Free T4 T3 ([facility]ILSON) Urine Creatinine Urine Total Protein Acetaminophen 06/30/18 06/30/18 07/01/18 04:45 06:24 04:39 WBC 12.1 H RBC Hgb Hct MCV 78 L 77 L MCH 25 L 25 L RDW 19.0 H 19.3 H Plt Count 91 L 77 L Lymph % (Auto) [place] % (Auto) Lymph # [place] # Seg Neutrophils % Seg Neuts % (Manual) Lymphocytes % (Manual) Monocytes % (Manual) Seg Neutrophils # Seg Neutrophils # Man Lymphocytes # (Manual) Monocytes # (Manual) POC ABG pH POC ABG pCO2 POC ABG pO2 Sodium Potassium Chloride Carbon Dioxide BUN Creatinine Glucose POC Glucose 63 L Lactic Acid Uric Acid Calcium Magnesium Total Bilirubin Direct Bilirubin AST ALT Alkaline Phosphatase Ammonia CK-MB (CK-2) Rel Index C-Reactive Protein Total Protein Albumin Vitamin B1 Vitamin B12 25-OH Vitamin D Total Free T4 T3 ([facility]) Urine Creatinine Urine Total Protein Acetaminophen 07/01/18 07/01/18 07/02/18 04:39 11:12 05:23 WBC RBC Hgb Hct MCV 77 L MCH 25 L RDW 19.2 H Plt Count 78 L Lymph % (Auto) [place] % (Auto) Lymph # [place] # Seg Neutrophils % Seg Neuts % (Manual) Lymphocytes % (Manual) Monocytes % (Manual) Seg Neutrophils # Seg Neutrophils # Man Lymphocytes # (Manual) Monocytes # (Manual) POC ABG pH POC ABG pCO2 POC ABG pO2 Sodium Potassium 3.5 L D Chloride Carbon Dioxide BUN Creatinine Glucose 109 H POC Glucose 206 H Lactic Acid Uric Acid Calcium 8.1 L Magnesium Total Bilirubin 3.90 H Direct Bilirubin AST 163 H ALT 60 H Alkaline Phosphatase 166 H Ammonia CK-MB (CK-2) Rel Index C-Reactive Protein Total Protein 4.5 L Albumin 2.0 L Vitamin B1 Vitamin B12 25-OH Vitamin D Total Free T4 T3 ([facility]) Urine Creatinine Urine Total Protein Acetaminophen 07/02/18 07/02/18 07/03/18 05:23 12:18 08:14 WBC RBC Hgb Hct MCV 76 L MCH 25 L RDW 19.0 H Plt Count 84 L Lymph % (Auto) [place] % (Auto) Lymph # [place] # Seg Neutrophils % Seg Neuts % (Manual) Lymphocytes % (Manual) Monocytes % (Manual) Seg Neutrophils # Seg Neutrophils # Man Lymphocytes # (Manual) Monocytes # (Manual) POC ABG pH POC ABG pCO2 POC ABG pO2 Sodium 135 L Potassium 3.4 L Chloride Carbon Dioxide BUN Creatinine 0.6 L Glucose POC Glucose 144 H Lactic Acid Uric Acid Calcium 8.3 L Magnesium Total Bilirubin Direct Bilirubin AST ALT Alkaline Phosphatase Ammonia CK-MB (CK-2) Rel Index C-Reactive Protein Total Protein Albumin Vitamin B1 Vitamin B12 25-OH Vitamin D Total Free T4 T3 ([facility]) Urine Creatinine Urine Total Protein Acetaminophen 07/03/18 07/03/18 07/04/18 08:14 16:33 05:36 WBC RBC Hgb Hct MCV 77 L MCH 25 L RDW 18.5 H Plt Count 103 L Lymph % (Auto) [place] % (Auto) Lymph # [place] # Seg Neutrophils % Seg Neuts % (Manual) Lymphocytes % (Manual) Monocytes % (Manual) Seg Neutrophils # Seg Neutrophils # Man Lymphocytes # (Manual) Monocytes # (Manual) POC ABG pH POC ABG pCO2 POC ABG pO2 Sodium 135 L Potassium Chloride 97.7 L Carbon Dioxide BUN Creatinine 0.5 L Glucose POC Glucose 69 L Lactic Acid Uric Acid Calcium 8.2 L Magnesium 1.50 L Total Bilirubin Direct Bilirubin AST ALT Alkaline Phosphatase Ammonia CK-MB (CK-2) Rel Index C-Reactive Protein Total Protein Albumin Vitamin B1 Vitamin B12 25-OH Vitamin D Total Free T4 T3 ([facility]) Urine Creatinine Urine Total Protein Acetaminophen 07/04/18 07/04/18 07/04/18 05:36 08:54 11:47 WBC RBC Hgb Hct MCV MCH RDW Plt Count Lymph % (Auto) [place] % (Auto) Lymph # [place] # Seg Neutrophils % Seg Neuts % (Manual) Lymphocytes % (Manual) Monocytes % (Manual) Seg Neutrophils # Seg Neutrophils # Man Lymphocytes # (Manual) Monocytes # (Manual) POC ABG pH POC ABG pCO2 POC ABG pO2 Sodium 135 L Potassium Chloride Carbon Dioxide BUN Creatinine 0.5 L Glucose POC Glucose 61 L 122 H Lactic Acid Uric Acid Calcium 8.2 L Magnesium Total Bilirubin Direct Bilirubin AST ALT Alkaline Phosphatase Ammonia CK-MB (CK-2) Rel Index C-Reactive Protein Total Protein Albumin Vitamin B1 Vitamin B12 25-OH Vitamin D Total Free T4 T3 ([facility]) Urine Creatinine Urine Total Protein Acetaminophen 07/04/18 07/05/18 07/06/18 16:44 21:15 11:50 WBC RBC Hgb Hct MCV MCH RDW Plt Count Lymph % (Auto) [place] % (Auto) Lymph # [place] # Seg Neutrophils % Seg Neuts % (Manual) Lymphocytes % (Manual) Monocytes % (Manual) Seg Neutrophils # Seg Neutrophils # Man Lymphocytes # (Manual) Monocytes # (Manual) POC ABG pH POC ABG pCO2 POC ABG pO2 Sodium Potassium Chloride Carbon Dioxide BUN Creatinine Glucose POC Glucose 124 H 150 H 67 L Lactic Acid Uric Acid Calcium Magnesium Total Bilirubin Direct Bilirubin AST ALT Alkaline Phosphatase Ammonia CK-MB (CK-2) Rel Index C-Reactive Protein Total Protein Albumin Vitamin B1 Vitamin B12 25-OH Vitamin D Total Free T4 T3 ([facility]) Urine Creatinine Urine Total Protein Acetaminophen 07/06/18 07/06/18 07/06/18 13:32 16:27 21:13 WBC RBC Hgb Hct MCV MCH RDW Plt Count Lymph % (Auto) [place] % (Auto) Lymph # [place] # Seg Neutrophils % Seg Neuts % (Manual) Lymphocytes % (Manual) Monocytes % (Manual) Seg Neutrophils # Seg Neutrophils # Man Lymphocytes # (Manual) Monocytes # (Manual) POC ABG pH POC ABG pCO2 POC ABG pO2 Sodium Potassium Chloride Carbon Dioxide BUN Creatinine Glucose POC Glucose 146 H 125 H 69 L Lactic Acid Uric Acid Calcium Magnesium Total Bilirubin Direct Bilirubin AST ALT Alkaline Phosphatase Ammonia CK-MB (CK-2) Rel Index C-Reactive Protein Total Protein Albumin Vitamin B1 Vitamin B12 25-OH Vitamin D Total Free T4 T3 ([facility]) Urine Creatinine Urine Total Protein Acetaminophen 07/07/18 07/08/18 07/08/18 12:18 04:55 04:55 WBC RBC Hgb Hct MCV 78 L MCH 25 L RDW 18.2 H Plt Count Lymph % (Auto) [place] % (Auto) 14.8 H Lymph # [place] # 1.3 H Seg Neutrophils % Seg Neuts % (Manual) Lymphocytes % (Manual) Monocytes % (Manual) Seg Neutrophils # Seg Neutrophils # Man Lymphocytes # (Manual) Monocytes # (Manual) POC ABG pH POC ABG pCO2 POC ABG pO2 Sodium 136 L Potassium Chloride Carbon Dioxide BUN Creatinine 0.5 L Glucose 110 H POC Glucose 132 H Lactic Acid Uric Acid Calcium 8.0 L Magnesium Total Bilirubin Direct Bilirubin AST ALT Alkaline Phosphatase Ammonia CK-MB (CK-2) Rel Index C-Reactive Protein Total Protein Albumin Vitamin B1 Vitamin B12 25-OH Vitamin D Total Free T4 T3 ([facility]) Urine Creatinine Urine Total Protein Acetaminophen 07/08/18 07/08/18 07/08/18 14:27 17:11 21:20 WBC RBC Hgb Hct MCV MCH RDW Plt Count Lymph % (Auto) [place] % (Auto) Lymph # [place] # Seg Neutrophils % Seg Neuts % (Manual) Lymphocytes % (Manual) Monocytes % (Manual) Seg Neutrophils # Seg Neutrophils # Man Lymphocytes # (Manual) Monocytes # (Manual) POC ABG pH POC ABG pCO2 POC ABG pO2 Sodium Potassium Chloride Carbon Dioxide BUN Creatinine Glucose POC Glucose 133 H 113 H 126 H Lactic Acid Uric Acid Calcium Magnesium Total Bilirubin Direct Bilirubin AST ALT Alkaline Phosphatase Ammonia CK-MB (CK-2) Rel Index C-Reactive Protein Total Protein Albumin Vitamin B1 Vitamin B12 25-OH Vitamin D Total Free T4 T3 ([facility]) Urine Creatinine Urine Total Protein Acetaminophen 07/09/18 07/10/18 07/10/18 17:03 08:36 20:51 WBC RBC Hgb Hct MCV MCH RDW Plt Count Lymph % (Auto) [place] % (Auto) Lymph # [place] # Seg Neutrophils % Seg Neuts % (Manual) Lymphocytes % (Manual) Monocytes % (Manual) Seg Neutrophils # Seg Neutrophils # Man Lymphocytes # (Manual) Monocytes # (Manual) POC ABG pH POC ABG pCO2 POC ABG pO2 Sodium Potassium Chloride Carbon Dioxide BUN Creatinine Glucose POC Glucose 116 H 128 H 159 H Lactic Acid Uric Acid Calcium Magnesium Total Bilirubin Direct Bilirubin AST ALT Alkaline Phosphatase Ammonia CK-MB (CK-2) Rel Index C-Reactive Protein Total Protein Albumin Vitamin B1 Vitamin B12 25-OH Vitamin D Total Free T4 T3 ([facility]) Urine Creatinine Urine Total Protein Acetaminophen 07/11/18 07/11/18 07/11/18 03:22 03:22 12:07 WBC RBC Hgb Hct MCV 78 L MCH 26 L RDW 17.4 H Plt Count Lymph % (Auto) [place] % (Auto) Lymph # [place] # Seg Neutrophils % Seg Neuts % (Manual) Lymphocytes % (Manual) Monocytes % (Manual) 13.0 H Seg Neutrophils # Seg Neutrophils # Man Lymphocytes # (Manual) Monocytes # (Manual) POC ABG pH POC ABG pCO2 POC ABG pO2 Sodium 135 L Potassium Chloride Carbon Dioxide BUN Creatinine 0.6 L Glucose 101 H POC Glucose 345 H Lactic Acid Uric Acid Calcium 8.0 L Magnesium Total Bilirubin 1.50 H Direct Bilirubin AST 63 H ALT Alkaline Phosphatase 350 H Ammonia CK-MB (CK-2) Rel Index C-Reactive Protein Total Protein 5.5 L Albumin 2.0 L Vitamin B1 Vitamin B12 25-OH Vitamin D Total Free T4 T3 ([facility]) Urine Creatinine Urine Total Protein Acetaminophen 07/12/18 07/12/18 07/12/18 07:14 12:05 12:25 WBC RBC Hgb Hct MCV MCH RDW Plt Count Lymph % (Auto) [place] % (Auto) Lymph # [place] # Seg Neutrophils % Seg Neuts % (Manual) Lymphocytes % (Manual) Monocytes % (Manual) Seg Neutrophils # Seg Neutrophils # Man Lymphocytes # (Manual) Monocytes # (Manual) POC ABG pH POC ABG pCO2 POC ABG pO2 Sodium Potassium Chloride Carbon Dioxide BUN Creatinine Glucose POC Glucose 65 L 168 H Lactic Acid Uric Acid Calcium Magnesium Total Bilirubin Direct Bilirubin AST ALT Alkaline Phosphatase Ammonia CK-MB (CK-2) Rel Index 6.0 H C-Reactive Protein Total Protein Albumin Vitamin B1 Vitamin B12 25-OH Vitamin D Total Free T4 T3 ([facility]) Urine Creatinine Urine Total Protein Acetaminophen 07/12/18 07/12/18 07/12/18 16:21 18:12 22:40 WBC RBC Hgb Hct MCV MCH RDW Plt Count Lymph % (Auto) [place] % (Auto) Lymph # [place] # Seg Neutrophils % Seg Neuts % (Manual) Lymphocytes % (Manual) Monocytes % (Manual) Seg Neutrophils # Seg Neutrophils # Man Lymphocytes # (Manual) Monocytes # (Manual) POC ABG pH POC ABG pCO2 POC ABG pO2 Sodium Potassium Chloride Carbon Dioxide BUN Creatinine Glucose POC Glucose 109 H 111 H Lactic Acid Uric Acid Calcium Magnesium Total Bilirubin Direct Bilirubin AST ALT Alkaline Phosphatase Ammonia CK-MB (CK-2) Rel Index 6.2 H C-Reactive Protein Total Protein Albumin Vitamin B1 Vitamin B12 25-OH Vitamin D Total Free T4 T3 ([facility]) Urine Creatinine Urine Total Protein Acetaminophen 07/13/18 07/13/18 07/13/18 00:28 07:25 11:20 WBC RBC Hgb Hct MCV MCH RDW Plt Count Lymph % (Auto) [place] % (Auto) Lymph # [place] # Seg Neutrophils % Seg Neuts % (Manual) Lymphocytes % (Manual) Monocytes % (Manual) Seg Neutrophils # Seg Neutrophils # Man Lymphocytes # (Manual) Monocytes # (Manual) POC ABG pH POC ABG pCO2 POC ABG pO2 Sodium Potassium Chloride Carbon Dioxide BUN Creatinine Glucose POC Glucose 106 H 131 H Lactic Acid Uric Acid Calcium Magnesium Total Bilirubin Direct Bilirubin AST ALT Alkaline Phosphatase Ammonia CK-MB (CK-2) Rel Index 6.0 H C-Reactive Protein Total Protein Albumin Vitamin B1 Vitamin B12 25-OH Vitamin D Total Free T4 T3 ([facility]) Urine Creatinine Urine Total Protein Acetaminophen 07/13/18 07/13/18 07/14/18 16:44 22:55 11:30 WBC RBC Hgb Hct MCV MCH RDW Plt Count Lymph % (Auto) [place] % (Auto) Lymph # [place] # Seg Neutrophils % Seg Neuts % (Manual) Lymphocytes % (Manual) Monocytes % (Manual) Seg Neutrophils # Seg Neutrophils # Man Lymphocytes # (Manual) Monocytes # (Manual) POC ABG pH POC ABG pCO2 POC ABG pO2 Sodium Potassium Chloride Carbon Dioxide BUN Creatinine Glucose POC Glucose 127 H 166 H 120 H Lactic Acid Uric Acid Calcium Magnesium Total Bilirubin Direct Bilirubin AST ALT Alkaline Phosphatase Ammonia CK-MB (CK-2) Rel Index C-Reactive Protein Total Protein Albumin Vitamin B1 Vitamin B12 25-OH Vitamin D Total Free T4 T3 ([facility]) Urine Creatinine Urine Total Protein Acetaminophen 07/14/18 07/15/18 07/15/18 16:45 11:44 16:42 WBC RBC Hgb Hct MCV MCH RDW Plt Count Lymph % (Auto) [place] % (Auto) Lymph # [place] # Seg Neutrophils % Seg Neuts % (Manual) Lymphocytes % (Manual) Monocytes % (Manual) Seg Neutrophils # Seg Neutrophils # Man Lymphocytes # (Manual) Monocytes # (Manual) POC ABG pH POC ABG pCO2 POC ABG pO2 Sodium Potassium Chloride Carbon Dioxide BUN Creatinine Glucose POC Glucose 69 L 187 H 126 H Lactic Acid Uric Acid Calcium Magnesium Total Bilirubin Direct Bilirubin AST ALT Alkaline Phosphatase Ammonia CK-MB (CK-2) Rel Index C-Reactive Protein Total Protein Albumin Vitamin B1 Vitamin B12 25-OH Vitamin D Total Free T4 T3 ([facility]) Urine Creatinine Urine Total Protein Acetaminophen 07/16/18 07/16/18 07/16/18 02:05 02:05 11:56 WBC RBC Hgb Hct MCV 78 L MCH 25 L RDW 17.6 H Plt Count Lymph % (Auto) [place] % (Auto) Lymph # [place] # Seg Neutrophils % Seg Neuts % (Manual) Lymphocytes % (Manual) Monocytes % (Manual) Seg Neutrophils # Seg Neutrophils # Man Lymphocytes # (Manual) Monocytes # (Manual) POC ABG pH POC ABG pCO2 POC ABG pO2 Sodium 136 L Potassium Chloride Carbon Dioxide BUN Creatinine 0.5 L Glucose POC Glucose 152 H Lactic Acid Uric Acid Calcium Magnesium Total Bilirubin Direct Bilirubin AST ALT Alkaline Phosphatase Ammonia CK-MB (CK-2) Rel Index C-Reactive Protein Total Protein Albumin Vitamin B1 Vitamin B12 25-OH Vitamin D Total Free T4 T3 ([facility]) Urine Creatinine Urine Total Protein Acetaminophen 07/16/18 07/16/18 07/17/18 16:25 22:00 07:24 WBC RBC Hgb Hct MCV MCH RDW Plt Count Lymph % (Auto) [place] % (Auto) Lymph # [place] # Seg Neutrophils % Seg Neuts % (Manual) Lymphocytes % (Manual) Monocytes % (Manual) Seg Neutrophils # Seg Neutrophils # Man Lymphocytes # (Manual) Monocytes # (Manual) POC ABG pH POC ABG pCO2 POC ABG pO2 Sodium Potassium Chloride Carbon Dioxide BUN Creatinine Glucose POC Glucose 117 H 247 H 63 L Lactic Acid Uric Acid Calcium Magnesium Total Bilirubin Direct Bilirubin AST ALT Alkaline Phosphatase Ammonia CK-MB (CK-2) Rel Index C-Reactive Protein Total Protein Albumin Vitamin B1 Vitamin B12 25-OH Vitamin D Total Free T4 T3 ([facility]) Urine Creatinine Urine Total Protein Acetaminophen 07/17/18 07/17/18 07/17/18 11:30 16:45 21:57 WBC RBC Hgb Hct MCV MCH RDW Plt Count Lymph % (Auto) [place] % (Auto) Lymph # [place] # Seg Neutrophils % Seg Neuts % (Manual) Lymphocytes % (Manual) Monocytes % (Manual) Seg Neutrophils # Seg Neutrophils # Man Lymphocytes # (Manual) Monocytes # (Manual) POC ABG pH POC ABG pCO2 POC ABG pO2 Sodium Potassium Chloride Carbon Dioxide BUN Creatinine Glucose POC Glucose 257 H 166 H 148 H Lactic Acid Uric Acid Calcium Magnesium Total Bilirubin Direct Bilirubin AST ALT Alkaline Phosphatase Ammonia CK-MB (CK-2) Rel Index C-Reactive Protein Total Protein Albumin Vitamin B1 Vitamin B12 25-OH Vitamin D Total Free T4 T3 ([facility]) Urine Creatinine Urine Total Protein Acetaminophen 07/18/18 07/18/18 07/18/18 07:47 11:25 22:14 WBC RBC Hgb Hct MCV MCH RDW Plt Count Lymph % (Auto) [place] % (Auto) Lymph # [place] # Seg Neutrophils % Seg Neuts % (Manual) Lymphocytes % (Manual) Monocytes % (Manual) Seg Neutrophils # Seg Neutrophils # Man Lymphocytes # (Manual) Monocytes # (Manual) POC ABG pH POC ABG pCO2 POC ABG pO2 Sodium Potassium Chloride Carbon Dioxide BUN Creatinine Glucose POC Glucose 66 L 119 H 157 H Lactic Acid Uric Acid Calcium Magnesium Total Bilirubin Direct Bilirubin AST ALT Alkaline Phosphatase Ammonia CK-MB (CK-2) Rel Index C-Reactive Protein Total Protein Albumin Vitamin B1 Vitamin B12 25-OH Vitamin D Total Free T4 T3 ([facility]) Urine Creatinine Urine Total Protein Acetaminophen 07/19/18 11:18 WBC RBC Hgb Hct MCV MCH RDW Plt Count Lymph % (Auto) [place] % (Auto) Lymph # [place] # Seg Neutrophils % Seg Neuts % (Manual) Lymphocytes % (Manual) Monocytes % (Manual) Seg Neutrophils # Seg Neutrophils # Man Lymphocytes # (Manual) Monocytes # (Manual) POC ABG pH POC ABG pCO2 POC ABG pO2 Sodium Potassium Chloride Carbon Dioxide BUN Creatinine Glucose POC Glucose 160 H Lactic Acid Uric Acid Calcium Magnesium Total Bilirubin Direct Bilirubin AST ALT Alkaline Phosphatase Ammonia CK-MB (CK-2) Rel Index C-Reactive Protein Total Protein Albumin Vitamin B1 Vitamin B12 25-OH Vitamin D Total Free T4 T3 ([facility]) Urine Creatinine Urine Total Protein Acetaminophen Allied health notes reviewed: nursing
[2018-07-19] MEDS: LANOXIN PO SCH (16:50)
[2018-07-19 18:09] VITALS: BP 109/74
== END 2018-07-19 19:10 | disposition home or self-care (01) | DRG 208 ==
LOC: ED 20:27 → 4A 06-17 02:59 → IMCU 06-25 14:10 → CC1 06-26 13:17 → IMCU 06-29 08:29 → 4A 07-02 20:18 → 2B-ACE 07-11 02:43
PROVIDERS: ADMIT Internal Medicine; ATTEND Internal Medicine
PROC: 5A2204Z Restoration of Cardiac Rhythm, Single (ICD-10-PCS; 2018-06-17)
PROC: 5A1945Z Respiratory Ventilation, 24-96 Consecutive Hours (ICD-10-PCS; principal; 2018-06-26)
PROC: 0BH17EZ Insertion of Endotracheal Airway into Trachea, Via Natural or Artificial Opening (ICD-10-PCS; 2018-06-26)
PROC: 4A033R1 Measurement of Arterial Saturation, Peripheral, Percutaneous Approach (ICD-10-PCS; 2018-06-26)
PROC: 02HV33Z Insertion of Infusion Device into Superior Vena Cava, Percutaneous Approach (ICD-10-PCS; 2018-06-27)
PROC: 5A12012 Performance of Cardiac Output, Single, Manual (ICD-10-PCS; 2018-06-27)
DX: J18.9 Pneumonia, unspecified organism (principal); J96.01 Acute respiratory failure with hypoxia; E43 Unspecified severe protein-calorie malnutrition; I46.9 Cardiac arrest, cause unspecified; N17.0 Acute kidney failure with tubular necrosis; I50.43 Acute on chronic combined systolic (congestive) and diastolic (congestive) heart failure; G93.40 Encephalopathy, unspecified; E87.1 Hypo-osmolality and hyponatremia; E87.2 Acidosis; I48.92 Unspecified atrial flutter; I42.0 Dilated cardiomyopathy; R65.10 Systemic inflammatory response syndrome (SIRS) of non-infectious origin without acute organ dysfunction; I11.0 Hypertensive heart disease with heart failure; E16.2 Hypoglycemia, unspecified; E87.6 Hypokalemia; G43.909 Migraine, unspecified, not intractable, without status migrainosus; I48.0 Paroxysmal atrial fibrillation; F32.9 Major depressive disorder, single episode, unspecified; R41.9 Unspecified symptoms and signs involving cognitive functions and awareness; F29 Unspecified psychosis not due to a substance or known physiological condition; I25.10 Atherosclerotic heart disease of native coronary artery without angina pectoris; E78.5 Hyperlipidemia, unspecified; F22 Delusional disorders; Z88.0 Allergy status to penicillin; Z88.8 Allergy status to other drugs, medicaments and biological substances; Z91.018 Allergy to other foods; Z87.891 Personal history of nicotine dependence; Z91.14 Patient's other noncompliance with medication regimen; Z82.49 Family history of ischemic heart disease and other diseases of the circulatory system
CPT/HCPCS: 36415; 36600; 70450; 70551; 71045; 71046; 74018; 76705; 80048; 80053; 80076; 80307; 80320; 81001; 82140; 82306; 82550; 82553; 82570; 82607; 82747; 82803; 82962; 83036; 83735; 83930; 83935; 84100; 84132; 84156; 84425; 84439; 84443; 84480; 84484; 84550; 85007; 85025; 85027; 86140; 86800; 87040; 87070; 87086; 87205; 87806; 93005; 93010; 94002; 94003; 94640; 94660; 94760; 96374; 99291; G0378; A9270-GY; G0480; J0171; J0461; J1200; J1250; J1630; J1644; J1815; J1940; J1956; J2060; J2260; J2405; J2765; J3475; J3480; J3486; J7030; J7040; J7042; J7050; J7070